=== PATIENT | male | born 1960 | race Caucasian/White ===

== ENCOUNTER 2024-07-01 15:21 | Emergency (ER) | payer MEDICARE, SELFPAY ==
[2024-07-01 15:38] VITALS: BP 127/80; PULSE 85; TEMP 36.8; O2SAT 96; BMI 20.8
--- NOTE | 2024-07-01 15:58 | ED.EXTPRO1 ---
HPI - Extremity Problem General Chief complaint: Extremity Problem, Nontraumatic Stated complaint: Lower Leg Swelling Time Seen by Provider: 07/01/24 15:26 Source: patient Mode of arrival: walk-in History of Present Illness HPI Narrative: 64-year-old male presents to the emergency department for a red area on his left lower leg. He has had it for a few days. He was working in an old house where there were a lot of spiders and he thinks he may have gotten bit. No purulent drainage or fever. Related Data Previous Rx's ?Medication ?Instructions ?Recorded cephalexin 500 mg capsule 500 mg PO QID 10 days #40 caps 07/01/24 sulfamethoxazole 800 1 tab PO BID 10 days #20 tabs 07/01/24 mg-trimethoprim 160 mg tablet (Bactrim DS) Allergies Allergy/AdvReac Type Severity Reaction Status Date / Time No Known Drug Allergies Allergy Verified 07/01/24 15:42 Review of Systems ROS Narrative A ten point review of systems is negative except as noted above. [facility] Medical History (Updated 07/01/24 @ 15:54 by Adrien Dunham MD) Diverticulitis ?K57.92 - Diverticulitis of intestine, part unspecified, without perforation or abscess without bleeding (ICD-10) Exam Narrative Exam Narrative: Nurses note and vital signs reviewed and patient is not hypoxic. General: The patient appears well and in no apparent distress. Patient is resting comfortably on cart. Skin: Warm, dry, no pallor noted. There is no rash noted. Head: Normocephalic, atraumatic Eye: Normal conjunctiva, no drainage Ears, Nose, Mouth, and Throat: oral mucosa is moist. Nares patent. Cardiovascular: Regular Rate and Rhythm Respiratory: Patient is in no distress, no accessory muscle use Back: non-tender GI: Soft and nontender Musculoskeletal: There is an erythematous area approximately 1 inch in diameter on his left lower leg. There is no purulent drainage or fluctuance. No lymphangitis. Neurological: A&O, normal speech Psychiatric: Cooperative Constitutional Vital Signs, click to edit/add: Last Vital Signs Temp 98.3 F 07/01/24 15:38 Pulse 85 07/01/24 15:38 Resp 18 07/01/24 15:38 BP 127/80 07/01/24 15:38 Pulse Ox 96 07/01/24 15:38 O2 Del Method Room Air 07/01/24 15:38 Course Vital Signs Vital signs: Vital Signs Temperature 98.3 F 07/01/24 15:38 Pulse Rate 85 07/01/24 15:38 Respiratory Rate 18 07/01/24 15:38 Blood Pressure 127/80 07/01/24 15:38 Pulse Oximetry 96 07/01/24 15:38 Oxygen Delivery Method Room Air 07/01/24 15:38 Temperature 98.3 F 07/01/24 15:38 Pulse Rate 85 07/01/24 15:38 Respiratory Rate 18 07/01/24 15:38 Blood Pressure 127/80 07/01/24 15:38 Pulse Oximetry 96 07/01/24 15:38 Oxygen Delivery Method Room Air 07/01/24 15:38 MDM - Extremity (Nontraumatic) MDM Narrative Medical decision making narrative: He will be placed on Bactrim and Keflex. He was also recommended warm soaks or compresses. Treatment diagnosis and follow-up were discussed with the patient. Differential Diagnosis Differential diagnosis: Likely other (Cellulitis, abscess) Discharge Plan Discharge Chief Complaint: Extremity Problem, Nontraumatic Clinical Impression: Cellulitis Patient Disposition: Home, Self-Care Time of Disposition Decision: 15:54 Condition: Good Mode of Transportation: Private Vehicle Prescriptions / Home Meds: New sulfamethoxazole-trimethoprim [Bactrim DS] 800-160 mg tablet 1 tab PO BID 10 Days Qty: 20 0RF cephalexin 500 mg capsule 500 mg PO QID 10 Days Qty: 40 0RF Print Language: [place] Instructions: Cellulitis (ED), Warm Compress or Soak (ED) Referrals: RASHAUN DONOHUE [Primary Care Provider] - 1 week
== END 2024-07-01 16:08 | disposition home or self-care (01) ==
PROVIDERS: Emergency Provider Emergency Medicine; PCP Family Medicine
DX: L03.116 Cellulitis of left lower limb (principal)
CPT/HCPCS: 99283

== ENCOUNTER 2024-12-04 10:21 | Emergency (ER) | payer MEDICARE, SELFPAY ==
[2024-12-04] VITALS (10 sets, daily range): BP systolic 98–131; BP diastolic 70–80; PULSE 72–82; TEMP 36.6; O2SAT 99–100; BMI 17.3
--- OUTSIDE RECORDS SUMMARY | 2024-12-04 10:28 | XMS_ITS | CCD ---
Author Organization [facility] CliniSyri Care Team Providers Care Environmental Engineering Manager Name Role Phone HOUSE, DR LAUREN Primary Care Unavailable PAY, DR THOMAS Admitting Unavailable PAY, DR THOMAS Attending Unavailable SO, FRANCISCO ALLEN Consulting Unavailable David, Talia Consulting Unavailable REQUEST, NONE LISTED Admitting Unavaila ble REQUEST, DR MERCADO LISTED Attending Unavaila ble HOUSE, DR LAUREN Primary Care Unavailable REQUEST, NONE LISTED Consulting Unavaila ble ANDERSON, DR LAUREN Primary Care Unavailable JENNIFER PRASAD Admitting Unavailable JENNIFER PRASAD Attending Unavailable LIZBETH, DR BRANDY Rader Consulting Unavailable JENNIFER PRASAD Consulting Unavailable Rashaun Donohue MD Primary Care Provider [phone] Rashaun Donohue MD Unavailable RASHAUN DONOHUE Attending Unavailable PRABHAKAR LOYOLA Attending Unavailable RASHAUN DONOHUE Referring Unavailable RASHAUN DONOHUE Attending Unavailable PRABHAKAR LOYOLA Attending Unavailable Rashaun Donohue MD Unavailable Prabhakar Clemente Unavailable [phone] Prabhakar Clemente Attending Unavailable Prabhakar Clemente Admitting Unavailable Rashaun Donohue Primary Care Unavailable Sandhya Crowe Unavailable Unavailable Rashaun Donohue MD Primary Care Provider [phone], Joyce Unavailable RAZ TUCKER Referring Unavailable RASHAUN DONOHUE Primary Care Unavailable Elio ROLLINS, Rebecca Balderas Unavailable [phone] Sancho Sánchez MD Unavailable RASHAUN DONOHUE Primary Care Unavailable SANCHO SÁNCHEZ Attending Unavailable VENNEPUREDDY, SANCHO Referring Unavailable CHARANJIT, [facility] Primary Care Unavailable VENNEPUREDDY, SANCHO Referring Unavailable CHARANJIT, [facility] Primary Care Unavailable ZARIA MARTIN Attending Unavailable CHARANJIT, [facility] Primary Care Unavailable VENNEPUREDDY, SANCHO Referring Unavailable Sherrie MONSON Referring Unavailable CHARANJIT, [facility] Primary Care Unavailable Sherrie MONSON Attending Unavailable [facility]ANJ[facility]ER[facility] Primary Care Unavailable Sherrie MONSON Attending Unavailable [facility]AN[facility]FORM[facility] Primary Care Unavailable VENNEPUREDDY, SANCHO Referring Unavailable Sherrie MONSON Referring Unavailable CHARANJIT, [facility] Primary Care Unavailable Sherrie MONSON Referring Unavailable CHARANJIT, [facility] Primary Care Unavailable RAZ TUCKER Attending Unavailable PRABHAKAR CLEMENTE Referring Unavaila ble Sherrie MONSON Referring Unavailable Sherrie MONSON Attending Unavailable Sherrie MONSON Referring Unavailable CHARANJIT, [facility] Primary Care Unavailable CHARANJIT, [facility] Primary Care Unavailable Sherrie MONSON Referring Unavailable CHARANJITFORMER[facility] Primary Care Unavailable Sherrie MONSON Referring Unavailable RAZ TUCKER Referring Unavailable Sherrie MONSON Attending Unavailable Sherrie MONSON Referring Unavailable [facility] Primary Care Unavailable RAZ TUCKER Referring Unavailable Sherrie MONSON Referring Unavailable [facility]FORM[facility] Primary Care Unavailable Sherrie MONSON Referring Unavailable CHARANJIT, [facility] Primary Care Unavailable Sherrie MONSON Referring Unavailable CHARANJ[facility]FORM[facility] Primary Care Unavailable Sherrie MONSON Referring Unavailable [facility] Primary Care Unavailable JOYCE VALLES Attending Unavailabl e [facility] Primary Care Unavailable Sherrie MONSON Referring Unavailable Sherrie MONSON Attending Unavailable [facility]AN[facility]FORMER[facility] Primary Care Unavailable VENNEPUREDDY, SANCHO Attending Unavailable VENNEPUREDDY, SANCHO Referring Unavailable [facility] Primary Care Unavailable Sherrie MONSON Attending Unavailable [facility] Primary Care Unavailable ENGELER, G JACK Referring Unavailable CHARANJIT, RASHAUN TRIPPY Primary Care Unavailable [facility]JIT[facility] Primary Care Unavailable ENGELER, G JACK Referring Unavailable CHARANJIT, [facility] Primary Care Unavailable ENGELER, G JACK Referring Unavailable ENGELER, G JACK Referring Unavailable CHARANJIT, RUGEN [facility] Primary Care Unavailable ENGELER, G JACK Referring Unavailable CHARANJIT, [facility] Primary Care Unavailable ENGELER, G JACK Referring Unavailable CHARANJIT, [facility] Primary Care Unavailable VENNEPUREDDORENE, SANCHO Referring Unavailable CHARANJIT, [facility] Primary Care Unavailable ENGELER G JACK Referring Unavailable ENGELER G JACK Referring Unavailable ENGKATHYRSherrie Attending Unavailable RAZ TUCKER Referring Unavailable CHARANJIT, RASHAUN [facility] Primary Care Unavailable Sherrie MONSON Referring Unavailable JOYCE VALLES Attending Unavailabl e CHARANJIT, RASHAUN [facility]LE[facility] Primary Care Unavailable VENNBRITTUREDLAUREL CATHERINERSH Attending Unavailable LAUREL SÁNCHEZRSH Referring Unavailable CHARANJIT, AFSHINEN QASIMY Primary Care Unavailable RAZ TUCKER Attending Unavailable CHARANJIT, [facility]INEN [facility] Primary Care Unavailable Sherrie MONSON Referring Unavailable ALICIA TUCKERTU Referring Unavailable VENNBRITTUREDDORENE, SANCHO Attending Unavailable Sherrie MONSON Referring Unavailable CHARANJIT, RASHAUN TRIPPY Primary Care Unavailable Sherrie MONSON Referring Unavailable CHARANJIT, RASHAUN TRIPPY Primary Care Unavailable Medications Current Medications Medication Drug Class(es) Dates Sig (Normalized) Sig (Original) capecitabine 150 mg oral tablet (20 sources) Nucleoside Metabolic Inhibitor Start: 11-01-2024 End: 12-04-2024 capecitabine (XELODA) 150 mg tablet Take 2 tablets (300 mg) by mouth two times a day with 1 other capecitabine prescription for 1,300 mg total. 120 tablet 11/04/2024 9:07 AM EST 11/01/2024 12/04/2024 Active Start: 11-01-2024 End: 12-04-2024 capecitabine (XELODA) 500 mg tablet Take 2 tablets (1,000 mg) by mouth two times a day with 1 other capecitabine prescription for 1,300 mg total. 120 tablet 11/04/2024 9:07 AM EST 11/01/2024 12/04/2024 Active ondansetron 8 mg oral tablet (12 sources) Serotonin-3 Receptor Antagonist Start: 11-05-2024 take 1 tablet by mouth every eight hours as needed for nausea ondansetron (ZOFRAN) 8 mg tablet Indications: Rectal cancer (HCC) Take 1 tablet by mouth every 8 hours as needed for nausea/vomiting. 90 tablet 2 11/05/2024 Active polyethylene glycol 3350 26541 mg powder for oral solution (2 sources) Osmotic Laxative Start: 08-02-2024 End: 08-05-2024 polyethylene glycol, PEG, 3350 (MiraLax) 17 GM/SCOOP powder Indications: Slow transit constipation Take 17 g by mouth Daily for 3 days 51 g 08/02/2024 08/05/2024 Active Polyethylene Glycols (15 sources) take 1 dose by mouth once daily as needed polyethylene glycol 3350 (MIRALAX ORAL) Take 1 Dose by mouth once daily as needed (contstipation). Active polyethylene gly col 3350 (MIRALAX ORAL) Take by mouth. Active prochlorperazine 10 mg oral tablet (12 sources) Phenothiazine Start: 11-05-2024 take 1 tablet by mouth every six hours as needed prochlorperazine (COMPAZINE) 10 mg tablet Indications: Rectal cancer (HCC) Take 1 tablet by mouth every 6 hours as needed. 100 tablet 2 11/05/2024 Active Completed/Discontinued Medications Medication Drug Class(es) Dates Sig (Normalized) Sig (Original) enteric contrast (will be provided with radiology test) (20 sources) Start: 10-07-2024 End: 11-08-2024 enteric contrast (will be provided with radiology test) Indications: Rectal mass MRI RECTUM WO/W. Administer, As Directed One Time Only, via Oral, Rectal, both Oral and Rectal, Enteric Tube, Stoma or Indwelling Catheter, Enteric Contrast as designated per enteric contrast guidelines 1 Each 10/07/2024 11/08/2024 Discontinued Start: 10-07-2024 End: 11-08-2024 enteric contrast (will be pr ovided with radiology test) Indications: Rectal mass For CT CHESTABD/PEL W IVCON Routine order Administer, As Directed One Time Only, via Oral, Rectal, both Oral and Rectal, Enteric Tube, Stoma or Indwelling Catheter, Enteric Contrast as designated per enteric contrast guidelines 1 Each 10/07/2024 11/08/2024 Discontinued Start: 10-07-[address] (will be provided with radiology test) Indications: Rectal mass MRI RECTUM WO/W. Administer, As Directed One Time Only, via Oral, Rectal, both Oral and Rectal, Enteric Tube, Stoma or Indwelling Catheter, Enteric Contrast as designated per enteric contrast guidelines 1 Each 10/07/2024 Active Start: 10-07-[address] (will be provided with radiology test) Indications: Rectal mass For CT CHESTABD/PEL W IVCON Routine order Administer, As Directed One Time Only, via Oral, Rectal, both Oral and Rectal, Enteric Tube, Stoma or Indwelling Catheter, Enteric Contrast as designated per enteric contrast guidelines 1 Each 10/07/2024 Active iv contrast (will be provide d with radiology test) (20 sources) Start: 10-07-2024 End: 11-08-2024 iv contrast (will be provide d with radiology test) Indications: Rectal mass MRI Rectum Inject, intravenously, once for 1 dose. No IV access, insert saline lock prior to the beginning of sedation, infusion, injection of imaging exam. Discontinue saline lock post exam. If Pt has a central line or IVAD, may access for administration according to line specific nursing protocol. Once exam is complete flush line and de-access according to line specific nursing protocol in the MR contrast administration guidelines link. 1 Each 10/07/2024 11/08/2024 Discontinued Start: 10-07-2024 End: 11-08-2024 iv contrast (will be provide d with radiology test) Indications: Rectal mass CT Chest ABD/PEL-Inject, intravenously, once for 1 dose.No IV access, insert saline lock prior to the beginning of sedation, infusion, injection of imaging exam. Discontinue saline lock post exam. If Pt. has a central line or IVAD, may access for administration according to line specific nursing protocol. Once exam is complete flush line and de-access according to line specific nursing protocol in the CT contrast administration guidelines link. 1 Each 10/07/2024 11/08/2024 Discontinued Start: 10-07-2024 iv contrast (w ill be provided with radiology test) Indications: Rectal mass MRI Rectum Inject, intravenously, once for 1 dose. No IV access, insert saline lock prior to the beginning of sedation, infusion, injection of imaging exam. Discontinue saline lock post exam. If Pt has a central line or IVAD, may access for administration according to line specific nursing protocol. Once exam is complete flush line and de-access according to line specific nursing protocol in the MR contrast administration guidelines link. 1 Each 10/07/2024 Active Start: 10-07-2024 iv contrast (w ill be provided with radiology test) Indications: Rectal mass CT Chest ABD/PEL-Inject, intravenously, once for 1 dose.No IV access, insert saline lock prior to the beginning of sedation, infusion, injection of imaging exam. Discontinue saline lock post exam. If Pt. has a central line or IVAD, may access for administration according to line specific nursing protocol. Once exam is complete flush line and de-access according to line specific nursing protocol in the CT contrast administration guidelines link. 1 Each 10/07/2024 Active Problems Active Problems Problem Classification Problem Date Documented Da te Episodic/Chronic Anal and rectal conditions (12 sources) Disorder of large intestine; Translations: [Stenosis of anus and rectum] Onset: 10-01-2024 10-01-2024 Episodic Cancer of colon (6 sources) Malignant tumor of colon; Translations: [Malignant neoplasm of colon, unspecified] 10-01-2024 Chronic Cancer of rectum and anus (20 sources) Malignant tumor of rectum; Translations: [Malignant neoplasm of rectum] Onset: 10-01-2024 10-01-2024 Chronic Diabetes mellitus with complications (16 sources) Neuropathy due to type 2 diabetes mellitus; Translations: [Type 2 diabetes mellitus with diabetic neuropathy, unspecified] Onset: 08-04-2023 08-02-2024 Chronic Essential hypertension (16 sources) Benign essential hypertension; Translations: [Essential (primary) hypertension] Onset: 09-01-2023 08-02-2024 Chronic Genitourinary symptoms and ill-defined conditions (2 sources) Nocturia; Translations: [Nocturia] 09-14-2024 Episodic Immunity disorders (2 sources) Secondary immune deficiency disorder; Translations: [Immunodeficiency due to conditions classified elsewhere (CMS/[facility])] 09-14-2024 Chronic Nonspecific chest pain (2 sources) Chest pain; Translations: [Chest Pain] Onset: 09-24-2022 Episodic Nutritional deficiencies (10 sources) Deficiency of macronutrients; Translations: [Unspecified protein-calorie malnutrition] Onset: 09-14-2024 09-14-2024 Chronic Other connective tissue disease (1 source) Olecranon bursitis, right elbow; Translations: [OLECRANON BURSITIS RIGHT ELBOW] Onset: 07-09-2021 Episodic Other gastrointestinal disorders (11 sources) Altered bowel function; Translations: [Change in bowel habit] Onset: 09-07-2024 09-07-2024 Episodic Other nervous system disorders (12 sources) Disorder of muscle; Translations: [Myopathy, unspecified] Onset: 11-07-2023 11-07-2023 Chronic Other screening for suspected conditions (not mental disorders or infectious disease) (2 sources) Patient encounter status; Translations: [Encounter for screening for lipoid disorders] 09-14-2024 Episodic Other skin disorders (3 sources) Localized swelling, mass and lump, right upper limb; Translations: [LOC SWELL MASS LUMP RT UPPER LIMB] Onset: 07-06-2021 Episodic Spondylosis; intervertebral disc disorders; other back problems (1 source) Sacroiliitis, not elsewhere classified; Translations: [SACROILIITIS NEC] Onset: 09-12-2021 Chronic Spondylosis; intervertebral disc disorders; other back problems (3 sources) Sacrococcygeal disorders, not elsewhere classified; Translations: [SACROCOCCYGEAL DISORDERS NEC] Onset: 09-11-2021 Episodic Substance-related disorders (20 sources) Nicotine dependence, cigarettes, uncomplicated; Translations: [Smoker] Onset: 09-12-2021 08-05-2023 Chronic Past or Other Problems Problem Classification Problem Date Documented Da te Episodic/Chronic Diabetes mellitus without complication (14 sources) Hyperglycemia; Translations: [Hyperglycemia, unspecified] Onset: 08-05-2023 08-05-2023 Episodic Gastrointestinal hemorrhage (18 sources) Hematochezia; Translations: [Melena] Onset: 08-02-2024 08-02-2024 Episodic Other connective tissue disease (14 sources) Muscle pain; Translations: [Myalgia, unspecified site] Onset: 11-07-2023 11-07-2023 Episodic Other gastrointestinal disorders (17 sources) Slow transit constipation; Translations: [Slow transit constipation] Onset: 08-02-2024 08-02-2024 Episodic Unclassified (2 sources) Patient encounter status 09-14-2024 Urinary tract infections (12 sources) Acute cystitis; Translations: [Acute cystitis without hematuria] Onset: 08-02-2024 08-02-2024 Episodic Results Test Name Value Interpretation Reference Range Facility OVon 11-29-2024 CNOV Office Visit (RADTSA ) BENTLEY GONZALEZ ([id number]) 1960 M Date Time Provider Department 11/29/24 9:45 AM Sherrie MONSON During your visit today, we recorded the following information about you: Temperature Pulse Respiration Blood pressure 97.5 degrees 75/minute 16/minute 126/79 Weight 52 kg Sherrie Monson MD 11/29/2024 10:10 AM Signed Radiation Oncology - On Treatment Review (OTR) Note PATIENT NAME: Bentley Gonzalez PATIENT DIAGNOSIS: Locally advanced adenocarcinoma the rectum. COURSE: definitive, pre-operative, and concurrent chemotherapy AREA TREATED: Pelvis/Rectum CURRENT DOSE: 2880 cGy in 16 fx PLANNED DOSE: 5040 cGy in 28 fx SUBJECTIVE: Doing well. States his bowel function is best in the morning overall improved in the afternoon having multiple bowel movements and urgency. No pain or bleeding. No rash or other issues. EXAM: 11/29/24 0959 BP: 126/79 Pulse: 75 Resp: 16 Temp: 36.4 ?C (97.5 ?F) SpO2: 100% Weight: 52 kg (114 lb 10.2 oz) KPS: 100 General Appearance: Alert and oriented. No acute distress. Radiation dermatitis: No IMAGING/LAB RESULTS: Hemoglobin (g/dL) Date Value 11/22/2024 14.4 Hematocrit (%) Date Value 11/22/2024 43.0 WBC (k/uL) Date Value 11/22/2024 5.08 Platelet Count (k/uL) Date Value 11/22/2024 157 Treatment chart checked: Yes Patient treatment site reviewed and verified:Yes Port films reviewed and current:Yes Medications started: None ASSESSMENT/PLAN: Clinically stable. Continue diet modification and Imodium as needed. Bowel frequency. Patient meeting with dietitian regarding strategies to prevent further weight loss. Toxicity within expected parameters. Continue radiation treatment as planned. Sherrie Monson MD Allergies As of Date: 11/29/2024 (No Known Allergies) Date Reviewed: 11/29/2024 Reviewed by: Barbie Causey RN - Fully Assessed Primary Visit Diagnosis:Rectal cancer (HCC) [C20] Prescriptions as of 11/29/2024 - prochlorperazine (COMPAZINE) 10 mg tablet Take 1 tablet by mouth every 6 hours as needed. - ondansetron (ZOFRAN) 8 mg tablet Take 1 tablet by mouth every 8 hours as needed for nausea/vomiting. - polyethylene glycol 3350 (MIRALAX ORAL) Take 1 Dose by mouth once daily as needed (contstipation). - capecitabine (XELODA) 150 mg tablet Take 2 tablets (300 mg) by mouth two times a day with 1 other capecitabine prescription for 1,300 mg total. - capecitabine (XELODA) 500 mg tablet Take 2 tablets (1,000 mg) by mouth two times a day with 1 other capecitabine prescription for 1,300 mg total. Problem List As Of Date: 11/29/2024 (None) Encounter Status:Closed by Sherrie MONSON on 11/29/24 [facility] ([id number]) 1960 M Date Time Provider Department 11/25/24 REBECCA BALLARD During your visit today, we recorded the following information about you: Rebecca Ballard RN 11/25/2024 2:49 PM Signed TOXICITY CHECK SYMPTOM ASSESSMENT The patient is on Xeloda with radiation Headache: No Dizziness: No Mouth or throat pain: No Appetite: no changes in appetite, appetite good Taste changes: No Nausea: No Weight gain/loss: No Episodes of palpitations/chest discomfort/pressure/lianne n No Shortness of breath: No Diarrhea: no Constipation: no pt states he takes 1/2 scoop of miralax daily to keep his bowels regular Pain: No=0 (pain 0 on a scale of 0-10). Fever: No Chills: No Skin changes: No Denies HFS Itching: No Musculoskeletal/joint changes/issues No Bleeding issues: No Activity Level (0-100%): tires more easily but doing his everyday things like normal Do you need to take naps? No Does the patient need interventions or same day appointment:No Reinforced CURRENT treatment education based on current and anticipated symptoms. Discussed port/line care and patient verbalizes understanding: Not Applicable Patient instructed to contact office or after hours Hematology/Oncology fellow for: temperature >= 100.4; questions or concerns. Patient verbalized understanding of when to seek medical attention and after hours number protocol. Rebecca Ballard RN Allergies As of Date: 11/25/2024 (No Known Allergies) Date Reviewed: 11/22/2024 Reviewed by: Karlie Prather MA - Fully Assessed Reason for Visit: Care Coordination [3491] Cmt: Toxicity check Prescriptions as of 11/25/2024 - prochlorperazine (COMPAZINE) 10 mg tablet Take 1 tablet by mouth every 6 hours as needed. - ondansetron (ZOFRAN) 8 mg tablet Take 1 tablet by mouth every 8 hours as needed for nausea/vomiting. - polyethylene glycol 3350 (MIRALAX ORAL) Take 1 Dose by mouth once daily as needed (contstipation). - capecitabine (XELODA) 150 mg tablet Take 2 tablets (300 mg) by mouth two times a day with 1 other capecitabine prescription for 1,300 mg total. - capecitabine (XELODA) 500 mg tablet Take 2 tablets (1,000 mg) by mouth two times a day with 1 other capecitabine prescription for 1,300 mg total. Problem List As Of Date: 11/25/2024 (None) Encounter Status:Closed by REBECCA BALLARD on 11/25/[address] [facility] CBC W Auto Differential pane l (Bld)on 11-22-2024 Basophils (Bld) [#/Vol] 10*3/uL Normal <0.[address] [facility] Comment on above: Order Comment: Speci men Type: BLOOD SPECIMENOrdering Facility: [facility] Address: [address] [place] [address] Performed By: #### 5 7021-8 ####[facility] LABCLIA [id number] [place] [address] Basophils/100 WBC (Bld) 0.2 % Normal [facility] Comment on above: Order Comment: Speci men Type: BLOOD SPECIMENOrdering Facility: [facility] Address: [address] [place] [address] Performed By: #### 5 7021-8 ####[facility] LABCLIA [id number] [place] [address] Differential cell count method Nom (Bld) Auto Normal [facility] Comment on above: Order Comment: Speci men Type: BLOOD SPECIMENOrdering Facility: [facility] Address: [address] [place] [address] Performed By: #### 5 7021-8 ####[facility] LABCLIA [id number] [place] [address] Eosinophils (Bld) [#/Vol] 0.21 10*3/uL Normal <0.[address] [facility] Comment on above: Order Comment: Speci men Type: BLOOD SPECIMENOrdering Facility: [facility] Address: [address] [place] [address] Performed By: #### 5 7021-8 ####[facility] LABCLIA [id number] [place] [address] Eosinophils/100 WBC (Bld) 4.1 % Normal [facility] Comment on above: Order Comment: Speci men Type: BLOOD SPECIMENOrdering Facility: [facility] Address: [address] [place] [address] Performed By: #### 5 7021-8 ####[facility] LABCLIA [id number] [place] [address] Erythrocyte distribution width (RBC) [Ratio] 13.3 % Normal 11.5-15.[address] [facility] Comment on above: Order Comment: Speci men Type: BLOOD SPECIMENOrdering Facility: [facility] Address: [address] [place] [address] Performed By: #### 5 7021-8 ####[facility] LABCLIA [id number] [place] [address] Hematocrit (Bld) [Volume fraction] 43.0 % Normal 39.0-51.[address] [facility] Comment on above: Order Comment: Speci men Type: BLOOD SPECIMENOrdering Facility: [facility] Address: [address] [place] [address] Performed By: #### 5 7021-8 ####[facility] LABCLIA [id number] [place] [address] Hemoglobin (Bld) [Mass/Vol] 14.4 g/dL Normal 13.0-17.[address] [facility] Comment on above: Order Comment: Speci men Type: BLOOD SPECIMENOrdering Facility: [facility] Address: [address] [place] [address] Performed By: #### 5 7021-8 ####[facility] LABIA [id number] [place] [address] Immature granulocytes (Bld) [#/Vol] 0.03 10*3/uL Normal <0.[address] [facility] Comment on above: Order Comment: Speci men Type: BLOOD SPECIMENOrdering Facility: [facility] Address: [address] [place] [address] Performed By: #### 5 7021-8 ####[facility] LABCLIA [id number] [place] [address] Immature granulocytes/100 WBC (Bld) 0.6 % Normal [facility] Comment on above: Order Comment: Speci men Type: BLOOD SPECIMENOrdering Facility: [facility] Address: [address] [place] [address] Performed By: #### 5 7021-8 ####[facility] LABCLIA [id number] [place] [address] Lymphocytes (Bld) [#/Vol] 0.74 10*3/uL Low 1.00-4.[address] [facility] Comment on above: Order Comment: Speci men Type: BLOOD SPECIMENOrdering Facility: [facility] Address: [address] [place] [address] Performed By: #### 5 7021-8 ####[facility] LABCLIA [id number] [place] [address] Lymphocytes/100 WBC (Bld) 14.6 % Normal [facility] Comment on above: Order Comment: Speci men Type: BLOOD SPECIMENOrdering Facility: [facility] Address: [address] [place] [address] Performed By: #### 5 7021-8 ####[facility] LABCLIA [id number] [place] [address] MCH (RBC) [Entitic mass] 31.6 pg Normal 26.0-34.[address] [facility] Comment on above: Order Comment: Speci men Type: BLOOD SPECIMENOrdering Facility: [facility] Address: [address] [place], [place] [address] Performed By: #### 5 7021-8 ####[facility] LABCLIA [id number] [place] [address] MCHC (RBC) [Mass/Vol] 33.5 g/dL Normal 30.5-36.0 [facility] Comment on above: Order Comment: Speci men Type: BLOOD SPECIMENOrdering Facility: [facility] Address: [address] [place] [address] Performed By: #### 5 7021-8 ####[facility] LABCLIA [id number] [place] [address] MCV (RBC) [Entitic vol] 94.5 fL Normal 80.0-100.[address] [facility] Comment on above: Order Comment: Speci men Type: BLOOD SPECIMENOrdering Facility: [facility] Address: [address] [place] [address] Performed By: #### 5 7021-8 ####[facility] LABCLIA [id number] [place] [address] Monocytes (Bld) [#/Vol] 0.51 10*3/uL Normal <0.[address] [facility] Comment on above: Order Comment: Speci men Type: BLOOD SPECIMENOrdering Facility: [facility] Address: [address] [place] [address] Performed By: #### 5 7021-8 ####[facility] LABCLIA [id number] [place] [address] Monocytes/100 WBC (Bld) 10.0 % Normal [facility] Comment on above: Order Comment: Speci men Type: BLOOD SPECIMENOrdering Facility: [facility] Address: [address] [place] [address] Performed By: #### 5 7021-8 ####[facility] LABCLIA [id number] [place] [address] Neutrophils (Bld) [#/Vol] 3.58 10*3/uL Normal 1.45-7.[address] [facility] Comment on above: Order Comment: Speci men Type: BLOOD SPECIMENOrdering Facility: [facility] Address: [address] [place] [address] Performed By: #### 5 7021-8 ####[facility] LABCLIA [id number] [place] [address] Neutrophils/100 WBC (Bld) 70.5 % Normal [facility] Comment on above: Order Comment: Speci men Type: BLOOD SPECIMENOrdering Facility: [facility] Address: [address] [place] [address] Performed By: #### 5 7021-8 ####[facility] LABCLIA [id number] [place] [address] Nucleated RBC (Bld) [#/Vol] 10*3/uL Normal <0.[address] [facility] Comment on above: Order Comment: Speci men Type: BLOOD SPECIMENOrdering Facility: [facility] Address: [address] [place] [address] Performed By: #### 5 7021-8 ####[facility] LABCLIA [id number] [place] [address] Nucleated RBC/100 WBC (Bld) [Ratio] 0.0 /100 WBC Normal [facility] Comment on above: Order Comment: Speci men Type: BLOOD SPECIMENOrdering Facility: [facility] Address: [address] [place] [address] Performed By: #### 5 7021-8 ####[facility] LABCLIA [id number] [place] [address] Platelet mean volume (Bld) [Entitic vol] 8.6 fL Low 9.0-12.[address] [facility] Comment on above: Order Comment: Speci men Type: BLOOD SPECIMENOrdering Facility: [facility] Address: [address] [place] [address] Performed By: #### 5 7021-8 ####[facility] LABCLIA [id number] [place] [address] Platelets (Bld) [#/Vol] 157 10*3/uL Normal 150-[address] [facility] Comment on above: Order Comment: Speci men Type: BLOOD SPECIMENOrdering Facility: [facility] Address: [address] [place] [address] Performed By: #### 5 7021-8 ####[facility] LABCLIA [id number] [place] [address] RBC (Bld) [#/Vol] 4.55 10*6/uL Normal 4.20-6.00 [facility] Comment on above: Order Comment: Speci men Type: BLOOD SPECIMENOrdering Facility: [facility] Address: [address] [place] [address] Performed By: #### 5 7021-8 ####[facility] LABCLIA [id number] [place] [address] WBC (Bld) [#/Vol] 5.08 10*3/uL Normal 3.70-11.00 [facility] Comment on above: Order Comment: Speci men Type: BLOOD SPECIMENOrdering Facility: [facility] Address: [address] [place] [address] Performed By: #### 5 7021-8 ####[facility] LABCLIA [id number] [place] [address] [facility] CBC W AUTO DIFF BLDon Basophils/100 WBC (Bld) 0.2 % [facility] BASOPHILS # BLD AUTO <0.03 [facility] DIFFERENTIAL METHOD BLD Auto [facility] EOSINOPHIL # BLD AUTO 0.21 [facility] LYMPHOCYTES # BLD AUTO 0.74 Low [facility] MONOCYTES # BLD AUTO 0.51 [facility] NEUTROPHILS # BLD AUTO 3.58 [facility] NRBC # BLD AUTO <0.01 [facility] NRBC/100 WBC BLD-RTO 0 /100 WBC [facility] PLATELET # BLD AUTO 157 [facility] PMV BLD AUTO 8.6 fL Low 9.0 - 12.7 fL [facility] WBC # BLD AUTO 5.08 [facility] Eosinophils/100 WBC (Bld) 4.1 % [facility] Erythrocyte distribution width (RBC) [Ratio] 13.3 % 11.5 - 15.0 % [facility] Hematocrit (Bld) [Volume fraction] 43 % 39.0 - 51.0 % [facility] Hemoglobin (Bld) [Mass/Vol] 14.4 g/dL 13.0 - 17.0 g/dL [facility] IMM GRANULOCYTES # BLD AUTO 0.03 NINF [facility] IMM GRANULOCYTES/LEUK NFR BLD AUTO 0.6 % [facility] Interpretation and review of laboratory results Abnormal [facility] Lymphocytes/100 WBC (Bld) 14.6 % [facility] MCH (RBC) [Entitic mass] 31.6 pg 26.0 - 34.0 pg [facility] MCHC (RBC) [Mass/Vol] 33.5 g/dL 30.5 - 36.0 g/dL [facility] MCV (RBC) [Entitic vol] 94.5 fL 80.0 - 100.0 fL [facility] Monocytes/100 WBC (Bld) 10 % [facility] Neutrophils/100 WBC (Bld) 70.5 % [facility] RBC (Bld) [#/Vol] 4.55 10*6/uL 4.20 - 6.0 0 m/uL [facility] Specimen Type: BLOOD SPECIMEN [facility] Address: [address] [place] [address] Original Ordering Provider: SANCHO SÁNCHEZ [facility] CNOVon 11-22-2024 CNOV Office Visit (RADTSA ) BENTLEY GONZALEZ ([id number]) 1960 M Date Time Provider Department 11/22/24 9:15 AM Sherrie MONSON RADTSA During your visit today, we recorded the following information about you: Pulse Respiration Blood pressure Weight 85/minute 18/minute 136/82 53.6 kg Sherrie Monson MD 11/22/2024 9:33 AM Signed Radiation Oncology - On Treatment Review (OTR) Note PATIENT NAME: Bentley Gonzalez PATIENT DIAGNOSIS: Locally advanced adenocarcinoma the rectum. COURSE: definitive, pre-operative, and concurrent chemotherapy AREA TREATED: Pelvis/Rectum CURRENT DOSE: 1980 cGy in 11 fx PLANNED DOSE: 5040 cGy in 28 fx SUBJECTIVE: Doing well. Feels bowel function has improved easier to pass. No bladder pain. EXAM: 11/22/24 0912 BP: 136/82 Pulse: 85 Resp: 18 SpO2: 99% Weight: 53.6 kg (118 lb 2.7 oz) KPS: 100 General Appearance: Alert and oriented. No acute distress. Radiation dermatitis: No IMAGING/LAB RESULTS: Hemoglobin (g/dL) Date Value 11/08/2024 15.3 Hematocrit (%) Date Value 11/08/2024 46.0 WBC (k/uL) Date Value 11/08/2024 7.39 Platelet Count (k/uL) Date Value 11/08/2024 289 Treatment chart checked: Yes Patient treatment site reviewed and verified:Yes Port films reviewed and current:Yes Medications started: None ASSESSMENT/PLAN: Clinically stable. Toxicity within expected parameters. Continue radiation treatment as planned. Sherrie Monson MD Referring Provider: Sherrie MONSON [[id number]] Allergies As of Date: 11/22/2024 (No Known Allergies) Date Reviewed: 11/22/2024 Reviewed by: Karlie Prather MA - Fully Assessed Primary Visit Diagnosis:Rectal cancer (HCC) [C20] Prescriptions as of 11/22/2024 - prochlorperazine (COMPAZINE) 10 mg tablet Take 1 tablet by mouth every 6 hours as needed. - ondansetron (ZOFRAN) 8 mg tablet Take 1 tablet by mouth every 8 hours as needed for nausea/vomiting. - polyethylene glycol 3350 (MIRALAX ORAL) Take 1 Dose by mouth once daily as needed (contstipation). - capecitabine (XELODA) 150 mg tablet Take 2 tablets (300 mg) by mouth two times a day with 1 other capecitabine prescription for 1,300 mg total. - capecitabine (XELODA) 500 mg tablet Take 2 tablets (1,000 mg) by mouth two times a day with 1 other capecitabine prescription for 1,300 mg total. Problem List As Of Date: 11/22/2024 (None) Encounter Status:Closed by Sherrie MONSON on 11/22/24 [facility] CNOVSPon 11-22-2024 CNOVSP Visit (SP) Office (HEMASA) BENTLEY GONZALEZ ([id number]) 1960 M Date Time Provider Department 11/22/24 9:30 AM SANCHO SÁNCHEZ During your visit today, we recorded the following information about you: Pulse Respiration Blood pressure Weight 85/minute 18/minute 136/82 53.5 kg Height 1.715 m Sanhco Sánchez MD 11/22/2024 10:05 AM Signed PATIENT NAME: Bentley Gonzalez CLINIC NO.: [id number] ATTENDING PHYSICIAN: Sancho Sánchez MD DATE OF SERVICE: 11/22/[address] Raz Hurley [id number] [facility] [id number] thank you for referring Bentley Gonzalez for an opinion regarding Rectal cancer. Some of the elements of this note have been copied from my previous progress note dated 11/08/24 . All the information has been reviewed carefully. CHIEF COMPLAINT: Rectal cancer HPI: Bentley Gonzalez is a 64 year old year old male with no significant PMH referred to us for rectal mass. He reports months of hematochezia as well as change in bowel habits prompting him to present for endoscopic evaluation. On colonoscopy, he was found to have a rectal mass on LUIS ANTONIO and on endoscopic evaluation, pediatric scope could not be advanced past the mass. Biopsy was taken and result showed adenoca. He presents for further evaluation and management. Patient reports that his difficulty defecating included small pellet-like stools, ~10 times a day, which has improved since he started taking MiraLAX daily. He now has large volume stool but still go multiple times a day. His hematochezia is also resolved. Seen by surgeon . Scheduled for scans on 10/27/23. No family history of colon ca. Works in construction and [employer]. Smokes 1 pk/day for many yrs. 11/01/24: - CT chest (10/27/24)- Few scattered pulmonary nodules measuring up to 4 mm. Continued follow-up is recommended. - CT A/P (10/27/24)- 5 cm rectal mass with metastatic mesorectal and superior rectal lymphadenopathy. Indeterminate subcentimeter low-attenuation lesions in the liver. Attention on follow-up is recommended. 1.7 cm above water attenuation lesion in the left kidney. Consider ultrasound for further assessment versus attention on follow-up - MRI rectum (10/29/24)- 4.7 cm mid rectal mass extending into the mesorectal fat with multiple suspicious mesorectal lymph nodes. Stage: T3d N+ MRF: Involved (tumor margin within 1 mm of MRF) Sphincter involvement: No. Suspicious extra mesorectal lymph nodes: No. EMVI: Yes - Able to pass bowel movements with miralax - No major complaints. 11/08/24: - Started radiation today - Doing well - No major complaints - Able to pass bowel movements 11/22/24: - Doing well - C/o intermittent diarrhea - Week 3 radiation today - Scheduled for port on december 08. - Last radiation is on December 15. - Smokes 1pk for 3 days. Current Outpatient Medications Medication Sig prochlorperazine (COMPAZINE) 10 mg tablet Take 1 tablet by mouth every 6 hours as needed. ondansetron (ZOFRAN) 8 mg tablet Take 1 tablet by mouth every 8 hours as needed for nausea/vomiting. polyethylene glycol 3350 (MIRALAX ORAL) Take 1 Dose by mouth once daily as needed (contstipation). capecitabine (XELODA) 150 mg tablet Take 2 tablets (300 mg) by mouth two times a day with 1 other capecitabine prescription for 1,300 mg total. capecitabine (XELODA) 500 mg tablet Take 2 tablets (1,000 mg) by mouth two times a day with 1 other capecitabine prescription for 1,300 mg total. No current facility-administered medications for this visit. ALLERGIES No Known Allergies No past medical history on file. PAST SURGICAL HISTORY Procedure Laterality Date TONSILLECTOMY AND ADENOIDECTOMY FAMILY HISTORY Problem Relation Age of Onset Breast Cancer Mother Lung Cancer Father Cancer Sister Social History Tobacco Use Smoking status: Every Day Current packs/day: 1.00 Average packs/day: 1 pack/day for 54.1 years (54.1 ttl pk-yrs) Types: Cigarettes Start date: 1970 Smokeless tobacco: Never Vaping Use Vaping status: Never Used Substance Use Topics Alcohol use: Yes Comment: very seldom Drug use: Not Currently REVIEW OF SYSTEMS GENERAL: No weight loss, malaise or fevers. No night sweats. HEENT: Negative for headaches, No changes in hearing or vision, no nose bleeds or other nasal problems. RESPIRATORY: Negative for cough, wheezing and shortness of breath CARDIOVASCULAR: Negative for chest pain, leg swelling and palpitations GI: Negative for abdominal discomfort, blood in stools or black stools and change in bowel habits : Negative for dysuria, frequency and incontinence MUSCULOSKELETAL: Negative for joint pain or swelling, back pain, and muscle pain. SKIN: Negative for lesions, rash, and itching. HEMATOLOGY/LYMPHOLOGY Negative for prolonged bleeding, bruising easily, and swollen nodes. (more content not included)... Normal [facility] Comprehensive metabolic 2000 panelon 11-22-2024 Albumin [Mass/Vol] 4.5 g/dL Normal 3.9-4.9 [facility] Comment on above: Order Comment: Speci men Type: BLOOD SPECIMENOrdering Facility: [facility] Address: [address] [place] [address] Performed By: #### 2 4323-8 ####[facility] LABCLIA [id number] [place] [address] ALP [Catalytic activity/Vol] 78 U/L Normal 38-[address] [facility] Comment on above: Order Comment: Speci men Type: BLOOD SPECIMENOrdering Facility: [facility] Address: [address] [place] [address] Performed By: #### 2 4323-8 ####[facility] LABCLIA [id number] [place] [address] ALT [Catalytic activity/Vol] 12 U/L Normal 10-[address] [facility] Comment on above: Order Comment: Speci men Type: BLOOD SPECIMENOrdering Facility: [facility] Address: [address] [place] [address] Performed By: #### 2 4323-8 ####[facility] LABCLIA [id number] [place] [address] Anion gap [Moles/Vol] 10 mmol/L Normal 8-15 [facility] Comment on above: Order Comment: Speci men Type: BLOOD SPECIMENOrdering Facility: [facility] Address: [address] [place] [address] Performed By: #### 2 4323-8 ####[facility] LABCLIA [id number] [place] [address] AST [Catalytic activity/Vol] 14 U/L Normal 14-[address] [facility] Comment on above: Order Comment: Speci men Type: BLOOD SPECIMENOrdering Facility: [facility] Address: [address] [place] [address] Performed By: #### 2 4323-8 ####[facility] LABCLIA [id number] [place] [address] Bilirubin [Mass/Vol] 0.4 mg/dL Normal 0.2-1.3 [facility] Comment on above: Order Comment: Speci men Type: BLOOD SPECIMENOrdering Facility: [facility] Address: [address] [place] [address] Performed By: #### 2 4323-8 ####[facility] LABCLIA [id number] [place] [address] Calcium [Mass/Vol] 9.5 mg/dL Normal 8.5-10.2 [facility] Comment on above: Order Comment: Speci men Type: BLOOD SPECIMENOrdering Facility: [facility] Address: [address] [place] [address] Performed By: #### 2 4323-8 ####[facility] LABCLIA [id number] [place] [address] Chloride [Moles/Vol] 102 mmol/L Normal 98-107 [facility] Comment on above: Order Comment: Speci men Type: BLOOD SPECIMENOrdering Facility: [facility] Address: [address] [place], [place] [address] Performed By: #### 2 4323-8 ####[facility] LABCLIA [id number] [place] [address] CO2 [Moles/Vol] 26 mmol/L Normal 22-[address] [facility] Comment on above: Order Comment: Speci men Type: BLOOD SPECIMENOrdering Facility: [facility] Address: [address] [place] [address] Performed By: #### 2 4323-8 ####[facility] LABCLIA [id number] [place] [address] Creatinine [Mass/Vol] 0.85 mg/dL Normal 0.73-1.22 [facility] Comment on above: Order Comment: Speci men Type: BLOOD SPECIMENOrdering Facility: [facility] Address: [address] [place] [address] Performed By: #### 2 4323-8 ####[facility] LABCLIA [id number] [place] [address] Creatinine and Glomerular filtration rate.predicted panel (S/P/Bld) 96 mL/min/1.73m??? Normal >=[address] [facility] Comment on above: Order Comment: Speci men Type: BLOOD SPECIMENOrdering Facility: [facility] Address: [address] [place] [address] Result Comment: Tanya mated Glomerular Filtration Rate (eGFR) is calculated using the 2020 CKD-EPI creatinine equation. This equation utilizes serum creatinine, sex, and age as parameters. The creatinine assay has traceable calibration to isotope dilution-mass spectrometry. Refer to KDIGO guidelines for clinical interpretation. In patients with unstable renal function, e.g. those with acute kidney injury, the eGFR may not accurately reflect actual GFR. Performed By: #### 2 4323-8 ####[facility] LABCLIA [id number] [place] [address] Glucose [Mass/Vol] 109 mg/dL High 74-99 [facility] Comment on above: Order Comment: Speci men Type: BLOOD SPECIMENOrdering Facility: [facility] Address: [address] [place] [address] Result Comment: The [place] Diabetes Association (ADA) provides guidance for cutoff values for fasting glucose and random glucose. The ADA defines fasting as no caloric intake for at least 8 hours. Fasting plasma glucose results between 100 to 125 mg/dL indicate increased risk for diabetes (prediabetes). Fasting plasma glucose results greater than or equal to 126 mg/dL meet the criteria for diagnosis of diabetes. In the absence of unequivocal hyperglycemia, results should be confirmed by repeat testing. In a patient with classic symptoms of hyperglycemia or hyperglycemic crisis, random plasma glucose results greater than or equal to 200 mg/dL meet the criteria for diagnosis of diabetes. Reference: Standards of Medical Care in Diabetes 2016, [place] [employer] Association. Diabetes Care. 2016.39(Suppl 1). Performed By: #### 2 4323-8 ####[facility] LABCLIA [id number] [place] [address] Potassium [Moles/Vol] 4.4 mmol/L Normal 3.7-5.1 [facility] Comment on above: Order Comment: Speci [facility] Type: BLOOD SPECIMENOrdering Facility: [facility] Address: [address] [place] [id number] Performed By: #### 2 4323-8 ####[facility] LABCLIA [id number] [place] [address] Protein [Mass/Vol] 6.5 g/dL Normal 6.3-8.0 [facility] Comment on above: Order Comment: Speci men Type: BLOOD SPECIMENOrdering Facility: [facility] Address: [address] [place] [address] Performed By: #### 2 4323-8 ####[facility] LABCLIA [id number] [place] [address] Sodium [Moles/Vol] 138 mmol/L Normal 136-144 [facility] Comment on above: Order Comment: Speci men Type: BLOOD SPECIMENOrdering Facility: [facility] Address: [address] [place] [address] Performed By: #### 2 4323-8 ####[facility] LABCLIA [id number] [place] [address] Urea nitrogen [Mass/Vol] 11 mg/dL Normal 9-[address] [facility] Comment on above: Order Comment: Speci men Type: BLOOD SPECIMENOrdering Facility: [facility] Address: [facility] [place] [address] Performed By: #### 2 4323-8 ####[facility] LABCLIA [id number] [place] [address] CNOVon 11-15-2024 CNOV Office Visit (RADTSA ) BENTLEY GONZALEZ ([id number]) 1960 M Date Time Provider Department 11/15/24 9:00 AM Sherrie MONSON During your visit today, we recorded the following information about you: Temperature Pulse Respiration Blood pressure 96.7 degrees 85/minute 18/minute 128/74 Weight 53.5 kg Sherrie Monson MD 11/15/2024 9:13 AM Signed Radiation Oncology - On Treatment Review (OTR) Note PATIENT NAME: Bentley Gonzalez PATIENT DIAGNOSIS: Locally advanced adenocarcinoma the rectum. COURSE: definitive, pre-operative, and concurrent chemotherapy AREA TREATED: Pelvis/Rectum CURRENT DOSE: 1080 cGy in 6 fx PLANNED DOSE: 5040 cGy in 28 fx SUBJECTIVE: Doing well. Feels rectal function has improved. No bleeding. Mild constipation. EXAM: 11/15/24 0904 BP: 128/74 Pulse: 85 Resp: 18 Temp: (!) 35.9 ?C (96.7 ?F) SpO2: 100% Weight: 53.5 kg (117 lb 15.1 oz) KPS: 100 General Appearance: Alert and oriented. No acute distress. Radiation dermatitis: No IMAGING/LAB RESULTS: None Treatment chart checked: Yes Patient treatment site reviewed and verified:Yes Port films reviewed and current:Yes Medications started: None ASSESSMENT/PLAN: Clinically stable. Toxicity within expected parameters. Continue radiation treatment as planned. Sherrie Monson MD Allergies As of Date: 11/15/2024 (No Known Allergies) Date Reviewed: 11/15/2024 Reviewed by: Alison Louise RN - Fully Assessed Reason for Visit: Radiotherapy On-treatment Visit [1722] Primary Visit Diagnosis:Rectal cancer (HCC) [C20] Prescriptions as of 11/15/2024 - prochlorperazine (COMPAZINE) 10 mg tablet Take 1 tablet by mouth every 6 hours as needed. - ondansetron (ZOFRAN) 8 mg tablet Take 1 tablet by mouth every 8 hours as needed for nausea/vomiting. - polyethylene glycol 3350 (MIRALAX ORAL) Take 1 Dose by mouth once daily as needed (contstipation). - capecitabine (XELODA) 150 mg tablet Take 2 tablets (300 mg) by mouth two times a day with 1 other capecitabine prescription for 1,300 mg total. - capecitabine (XELODA) 500 mg tablet Take 2 tablets (1,000 mg) by mouth two times a day with 1 other capecitabine prescription for 1,300 mg total. Problem List As Of Date: 11/15/2024 (None) Encounter Status:Closed by Sherrie MONSON on 11/15/24 [facility] 11-15-2024 PEYMANN Telephone (TITA) BENTLEY GONZALEZ ([id number]) 1960 M Date Time Provider Department 11/15/24 REBECCA BALLARD During your visit today, we recorded the following information about you: Rebecac Ballard RN 11/15/2024 2:31 PM Signed ORAL ANTI-CANCER AGENTS FOLLOW-UP PHONE CALL/VISIT Patient identified by name and date of . YES Patient is on cycle 1, week 1, day 6 of Capecitabine (Xeloda) concurrent with radiation for Colon / Rectal Cancer. SYMPTOM ASSESSMENT Headache: No Visual Changes: No Dizziness: No Do you have any periods of confusion? No Mouth or throat pain: No Appetite: no changes in appetite, appetite good Taste changes: No Nausea: No Vomiting: No Heartburn: No. Weight gain/loss: No Episodes of palpitations/chest discomfort/pressure/lianne n No Shortness of breath: No Cough: No Diarrhea: no Constipation: pt states he had a little constipation over the weekend. States he takes miralax daily and his stools seemed to be pretty loose, so he held his miralax for a couple days and then developed constipation. Pt took a small dose of miralax last night and had some relief today. Is planning on taking a small dose again tonight. Bladder/Urinary Changes: None Pain: No=0 (pain 0 on a scale of 0-10). Fever: No Chills: No Numbness/weakness: No Skin changes: No Denies hand foot syndrome Musculoskeletal/joint changes/issues No Bleeding issues: No Activity Level (0-100%): normal Do you need to take naps? No Does the patient need interventions or same day appointment:No ADDITIONAL FOLLOW UP: The next outreach call is due on: prn and was scheduled prn The following lab tests are due: CBC, CMP Verified patient is aware of next appointment in the cancer center: Yes. Verified patient verbalized how to correctly refill the oral agent prescription. Yes Does the patient have any financial difficulties affording this medication? No Patient verbalizes understanding of when to seek Medical Attention? YES Patient verbalizes understanding of after-hours and weekend phone number? YES Patient verbalized importance of medication compliance in taking the oral agent as prescribed. Patient instructed to call if unable to comply. Rebecca Ballard RN Allergies As of Date: 11/15/2024 (No Known Allergies) Date Reviewed: 11/15/2024 Reviewed by: Alison Louise RN - Fully Assessed Reason for Visit: Care Coordination [3491] Cmt: C1D1 treatment follow up call Prescriptions as of 11/15/2024 - prochlorperazine (COMPAZINE) 10 mg tablet Take 1 tablet by mouth every 6 hours as needed. - ondansetron (ZOFRAN) 8 mg tablet Take 1 tablet by mouth every 8 hours as needed for nausea/vomiting. - polyethylene glycol 3350 (MIRALAX ORAL) Take 1 Dose by mouth once daily as needed (contstipation). - capecitabine (XELODA) 150 mg tablet Take 2 tablets (300 mg) by mouth two times a day with 1 other capecitabine prescription for 1,300 mg total. - capecitabine (XELODA) 500 mg tablet Take 2 tablets (1,000 mg) by mouth two times a day with 1 other capecitabine prescription for 1,300 mg total. Problem List As Of Date: 11/15/2024 (None) Encounter Status:Closed by [facility] C[facility] (HEMASA) BENTLEY GONZALEZ ([id number]) 1960 M Date Time Provider Department 11/11/24 REBECCA BALLARD HEMASA During your visit today, we recorded the following information about you: Rebecca Ballard RN 11/11/2024 11:50 AM Signed Pt calls stating he gets a runny nose after every radiation treatment, and then it goes away after a little while. Pt asking if this it to be expected? Please advise. He will be in for radiation later today if someone wants to answer this for him then. Thanks AYO Hong Ariana E, RN 11/12/2024 1:55 PM Signed Bentley is here for radiation therapy today without c/o a runny nose today or yesterday after treatment. We reviewed that should not be a side effect of radiation therapy but to continue notifying our office with any new concerns or questions. Barbie Causey RN Allergies As of Date: 11/11/2024 (No Known Allergies) Date Reviewed: 11/08/2024 Reviewed by: Radha Talbot MA - Fully Assessed Reason for Visit: Care Coordination [3491] Cmt: Radiation question Prescriptions as of 11/12/2024 - prochlorperazine (COMPAZINE) 10 mg tablet Take 1 tablet by mouth every 6 hours as needed. - ondansetron (ZOFRAN) 8 mg tablet Take 1 tablet by mouth every 8 hours as needed for nausea/vomiting. - polyethylene glycol 3350 (MIRALAX ORAL) Take 1 Dose by mouth once daily as needed (contstipation). - capecitabine (XELODA) 150 mg tablet Take 2 tablets (300 mg) by mouth two times a day with 1 other capecitabine prescription for 1,300 mg total. - capecitabine (XELODA) 500 mg tablet Take 2 tablets (1,000 mg) by mouth two times a day with 1 other capecitabine prescription for 1,300 mg total. Problem List As Of Date: 11/11/2024 (None) Encounter Status:Closed by BARBIE CAUSEY on 11/12/[address] [facility] REFERRAL FOR ADDITIONAL BIOMARKER AND MOLECULAR TESTINGon 11-09-2024 Specimen Type: TISSU E SPECIMEN Ordering Facility: [facility] Address: [address] [place] [address] Original Ordering Provider: SANCHO SÁNCHEZ [facility] CBC W Auto Differential pane l (Bld)on 11-08-2024 Basophils (Bld) [#/Vol] 0.04 10*3/uL Normal <0.[address] [facility] Comment on above: Order Comment: Speci men Type: BLOOD SPECIMENOrdering Facility: [facility] Address: [address] [place] [address] Performed By: #### 5 7021-8 ####[facility] LABCLIA [id number] [place] [address] Basophils/100 WBC (Bld) 0.5 % Normal [facility] Comment on above: Order Comment: Speci men Type: BLOOD SPECIMENOrdering Facility: [facility] Address: [address] [place] [address] Performed By: #### 5 7021-8 ####[facility] LABCLIA [id number] [place] [address] Differential cell count method Nom (Bld) Auto Normal [facility] Comment on above: Order Comment: Speci men Type: BLOOD SPECIMENOrdering Facility: [facility] Address: [address] [place] [address] Performed By: #### 5 7021-8 ####[facility] LABCLIA [id number] [place] [address] Eosinophils (Bld) [#/Vol] 0.14 10*3/uL Normal <0.[address] [facility] Comment on above: Order Comment: Speci men Type: BLOOD SPECIMENOrdering Facility: [facility] Address: [address] [place] [address] Performed By: #### 5 7021-8 ####[facility] LABCLIA [id number] [place] [address] Eosinophils/100 WBC (Bld) 1.9 % Normal [facility] Comment on above: Order Comment: Speci men Type: BLOOD SPECIMENOrdering Facility: [facility] Address: [address] [place] [address] Performed By: #### 5 7021-8 ####[facility] LABCLIA [id number] [place] [address] Erythrocyte distribution width (RBC) [Ratio] 13.1 % Normal 11.5-15.[address] [facility] Comment on above: Order Comment: Speci men Type: BLOOD SPECIMENOrdering Facility: [facility] Address: [address] [place] [address] Performed By: #### 5 7021-8 ####[facility] LABCLIA [id number] [place] [address] Hematocrit (Bld) [Volume fraction] 46.0 % Normal 39.0-51.[address] [facility] Comment on above: Order Comment: Speci men Type: BLOOD SPECIMENOrdering Facility: [facility] Address: [address] [place] [address] Performed By: #### 5 7021-8 ####[facility] LABCLIA [id number] [place] [address] Hemoglobin (Bld) [Mass/Vol] 15.3 g/dL Normal 13.0-17.[address] [facility] Comment on above: Order Comment: Speci men Type: BLOOD SPECIMENOrdering Facility: [facility] Address: [address] [place] [address] Performed By: #### 5 7021-8 ####[facility] LABCLIA [id number] [place] [address] Immature granulocytes (Bld) [#/Vol] 10*3/uL Normal <0.[address] [facility] Comment on above: Order Comment: Speci men Type: BLOOD SPECIMENOrdering Facility: [facility] Address: [address] [place] [address] Performed By: #### 5 7021-8 ####[facility] LABCLIA [id number] [place] [address] Immature granulocytes/100 WBC (Bld) 0.3 % Normal [facility] Comment on above: Order Comment: Speci men Type: BLOOD SPECIMENOrdering Facility: [facility] Address: [address] [place] [address] Performed By: #### 5 7021-8 ####[facility] LABCLIA [id number] [place] [address] Lymphocytes (Bld) [#/Vol] 1.67 10*3/uL Normal 1.00-4.[address] [facility] Comment on above: Order Comment: Speci men Type: BLOOD SPECIMENOrdering Facility: [facility] Address: [address] [place] [address] Performed By: #### 5 7021-8 ####[facility] LABCLIA [id number] [place] [address] Lymphocytes/100 WBC (Bld) 22.6 % Normal [facility] Comment on above: Order Comment: Speci men Type: BLOOD SPECIMENOrdering Facility: [facility] Address: [address] [place], [place] [address] Performed By: #### 5 7021-8 ####[facility] LABCLIA [id number] [place] [address] MCH (RBC) [Entitic mass] 30.8 pg Normal 26.0-34.[address] [facility] Comment on above: Order Comment: Speci men Type: BLOOD SPECIMENOrdering Facility: [facility] Address: [address] [place] [address] Performed By: #### 5 7021-8 ####[facility] LABIA [id number] [place] [address] MCHC (RBC) [Mass/Vol] 33.3 g/dL Normal 30.5-36.0 [facility] Comment on above: Order Comment: Speci men Type: BLOOD SPECIMENOrdering Facility: [facility] Address: [address] [place] [address] Performed By: #### 5 7021-8 ####[facility] LABCLIA [id number] [place] [address] MCV (RBC) [Entitic vol] 92.6 fL Normal 80.0-100.[address] [facility] Comment on above: Order Comment: Speci men Type: BLOOD SPECIMENOrdering Facility: [facility] Address: [address] [place] [address] Performed By: #### 5 7021-8 ####[facility] LABIA [id number] [place] [address] Monocytes (Bld) [#/Vol] 0.65 10*3/uL Normal <0.[address] [facility] Comment on above: Order Comment: Speci men Type: BLOOD SPECIMENOrdering Facility: [facility] Address: [address] [place] [address] Performed By: #### 5 7021-8 ####[facility] LABCLIA [id number] [place] [address] Monocytes/100 WBC (Bld) 8.8 % Normal [facility] Comment on above: Order Comment: Speci men Type: BLOOD SPECIMENOrdering Facility: [facility] Address: [address] [place] [address] Performed By: #### 5 7021-8 ####[facility] LABCLIA [id number] [place] [address] Neutrophils (Bld) [#/Vol] 4.87 10*3/uL Normal 1.45-7.[address] [facility] Comment on above: Order Comment: Speci men Type: BLOOD SPECIMENOrdering Facility: [facility] Address: [address] [place] [address] Performed By: #### 5 7021-8 ####[facility] LABCLIA [id number] [place] [address] Neutrophils/100 WBC (Bld) 65.9 % Normal [facility] Comment on above: Order Comment: Speci men Type: BLOOD SPECIMENOrdering Facility: [facility] Address: [address] [place] [address] Performed By: #### 5 7021-8 ####[facility] LABCLIA [id number] [place] [address] Nucleated RBC (Bld) [#/Vol] 10*3/uL Normal <0.[address] [facility] Comment on above: Order Comment: Speci men Type: BLOOD SPECIMENOrdering Facility: [facility] Address: [address] [place] [address] Performed By: #### 5 7021-8 ####[facility] LABCLIA [id number] [place] [address] Nucleated RBC/100 WBC (Bld) [Ratio] 0.0 /100 WBC Normal [facility] Comment on above: Order Comment: Speci men Type: BLOOD SPECIMENOrdering Facility: [facility] Address: [address] [place] [address] Performed By: #### 5 7021-8 ####[facility] LABCLIA [id number] [place] [address] Platelet mean volume (Bld) [Entitic vol] 8.9 fL Low 9.0-12.[address] [facility] Comment on above: Order Comment: Speci men Type: BLOOD SPECIMENOrdering Facility: [facility] Address: [address] [place] [address] Performed By: #### 5 7021-8 ####[facility] LABCLIA [id number] [place] [address] Platelets (Bld) [#/Vol] 289 10*3/uL Normal 150-[address] [facility] Comment on above: Order Comment: Speci men Type: BLOOD SPECIMENOrdering Facility: [facility] Address: [address] [place] [address] Performed By: #### 5 7021-8 ####[facility] LABCLIA [id number] [place] [address] RBC (Bld) [#/Vol] 4.97 10*6/uL Normal 4.20-6.00 [facility] Comment on above: Order Comment: Speci men Type: BLOOD SPECIMENOrdering Facility: [facility] Address: [address] [place] [address] Performed By: #### 5 7021-8 ####[facility] LABCLIA [id number] [place] [address] WBC (Bld) [#/Vol] 7.39 10*3/uL Normal 3.70-11.00 [facility] Comment on above: Order Comment: Speci men Type: BLOOD SPECIMENOrdering Facility: [facility] Address: [address] [place] [address] Performed By: #### 5 7021-8 ####[facility] LABCLIA [id number] [place] [address] [facility] CBC W AUTO DIFF BLDon Basophils/100 WBC (Bld) 0.5 % [facility] BASOPHILS # BLD AUTO 0.04 [facility] DIFFERENTIAL METHOD BLD Auto [facility] EOSINOPHIL # BLD AUTO 0.14 [facility] LYMPHOCYTES # BLD AUTO 1.67 [facility] MONOCYTES # BLD AUTO 0.65 [facility] NEUTROPHILS # BLD AUTO 4.87 [facility] NRBC # BLD AUTO <0.01 [facility] NRBC/100 WBC BLD-RTO 0 /100 WBC [facility] PLATELET # BLD AUTO 289 [facility] PMV BLD AUTO 8.9 fL Low 9.0 - 12.7 fL [facility] WBC # BLD AUTO 7.39 [facility] Eosinophils/100 WBC (Bld) 1.9 % [facility] Erythrocyte distribution width (RBC) [Ratio] 13.1 % 11.5 - 15.0 % [facility] Hematocrit (Bld) [Volume fraction] 46 % 39.0 - 51.0 % [facility] Hemoglobin (Bld) [Mass/Vol] 15.3 g/dL 13.0 - 17.0 g/dL [facility] IMM GRANULOCYTES # BLD AUTO <0.03 [facility] IMM GRANULOCYTES/LEUK NFR BLD AUTO 0.3 % [facility] Interpretation and review of laboratory results Abnormal [facility] Lymphocytes/100 WBC (Bld) 22.6 % [facility] MCH (RBC) [Entitic mass] 30.8 pg 26.0 - 34.0 pg [facility] MCHC (RBC) [Mass/Vol] 33.3 g/dL 30.5 - 36.0 g/dL [facility] MCV (RBC) [Entitic vol] 92.6 fL 80.0 - 100.0 fL [facility] Monocytes/100 WBC (Bld) 8.8 % [facility] Neutrophils/100 WBC (Bld) 65.9 % [facility] RBC (Bld) [#/Vol] 4.97 10*6/uL 4.20 - 6.0 0 m/uL [facility] Specimen Type: BLOOD SPECIMEN Ordering Facility: [facility] Address: [address] [place] [address] Original Ordering Provider: SANCHO BARNES [facility] CEA Jhl-yanick 11-08-2024 Carcinoembryonic Ag [Mass/Vol] 2.8 ng/mL Normal <=2.[address] [facility] Comment on above: Order Comment: Speci men Type: BLOOD SPECIMENOrdering Facility: [facility] Address: [address] [place] [address] Result Comment: Carc inoembryonic antigen test is used as an aid in monitoring response to treatment or recurrence in patients with established colorectal, breast, lung, prostatic, pancreatic, and ovarian carcinomas. Clinical correlation is required. The Carcinoembryonic antigen test was performed using the [employer] DXI paramagnetic particle chemiluminescent immunoassay method. Results obtained with different assay methods or kits cannot be used interchangeably. Performed By: #### 2 039-6 ####[facility] LABCLIA [id number] [address] [facility] CNNURSEon 11-08-2024 CNNURSE Nurse Visit (HEMASA) BENTLEY GONZALEZ ([id number]) 1960 Date Time Provider Department 11/08/24 9:00 AM REBECCA BALLARD During your visit today, we recorded the following information about you: Alejandra Everett RPh 11/08/2024 10:09 AM Signed [facility] Department of Pharmacy Oncology Pharmacy Medication Education Patient Name: Bentley Gonzalez Primary Oncologist: Gonzalo Diagnosis: Rectal Ca Bentley Gonzalez is a 64 year old patient and spouse here today for medication education for PO Capecitabine (Xeloda). Drug Interactions: Clinically significant interactions with chemotherapy, immunosuppression, or other standard of care treatment plan medications anticipated: No. There are no pertinent drug interactions identified. Patient was counseled accordingly. Allergies: Patient confirmed allergies documented in Epic are correct: Yes Was medication education provided?: Yes Medication Education: Administration and schedule: Take 1300 mg ( 2 x 500 mg tablets and 2 x 150 mg tablets) with food twice a day apx 12 hours apart Potential side effects discussed: anemia, appetite changes, bowel habit changes, diet, electrolyte disturbances, fatigue, hand-foot syndrome, infection, mucositis, nausea/vomitting, neutropenia, thrombocytopenia PO chemo: Verified patient understands where to store the drug. Yes Verified that patient understands prescription delivery, benefit investigation and refill process. Yes Was medication reconciliation performed?: Yes Changes made to medication list? No Current Outpatient Medications Medication Sig prochlorperazine (COMPAZINE) 10 mg tablet Take 1 tablet by mouth every 6 hours as needed. ondansetron (ZOFRAN) 8 mg tablet Take 1 tablet by mouth every 8 hours as needed for nausea/vomiting. polyethylene glycol 3350 (MIRALAX ORAL) Take by mouth. capecitabine (XELODA) 150 mg tablet Take 2 tablets (300 mg) by mouth two times a day with 1 other capecitabine prescription for 1,300 mg total. capecitabine (XELODA) 500 mg tablet Take 2 tablets (1,000 mg) by mouth two times a day with 1 other capecitabine prescription for 1,300 mg total. iv contrast (will be provided with radiology test) MRI Rectum Inject, intravenously, once for 1 dose. No IV access, insert saline lock prior to the beginning of sedation, infusion, injection of imaging exam. Discontinue saline lock post exam. If Pt has a central line or IVAD, may access for administration according to line specific nursing protocol. Once exam is complete flush line and de-access according to line specific nursing protocol in the MR contrast administration guidelines link. (Patient not taking: Reported on 10/18/2024) enteric contrast (will be provided with radiology test) MRI RECTUM WO/W. Administer, As Directed One Time Only, via Oral, Rectal, both Oral and Rectal, Enteric Tube, Stoma or Indwelling Catheter, Enteric Contrast as designated per enteric contrast guidelines (Patient not taking: Reported on 10/18/2024) iv contrast (will be provided with radiology test) CT Chest ABD/PEL-Inject, intravenously, once for 1 dose.No IV access, insert saline lock prior to the beginning of sedation, infusion, injection of imaging exam. Discontinue saline lock post exam. If Pt. has a central line or IVAD, may access for administration according to line specific nursing protocol. Once exam is complete flush line and de-access according to line specific nursing protocol in the CT contrast administration guidelines link. (Patient not taking: Reported on 10/18/2024) enteric contrast (will be provided with radiology test) For CT CHESTABD/PEL W IVCON Routine order Administer, As Directed One Time Only, via Oral, Rectal, both Oral and Rectal, Enteric Tube, Stoma or Indwelling Catheter, Enteric Contrast as designated per enteric contrast guidelines (Patient not taking: Reported on 10/18/2024) No current facility-administered medications for this visit. - Chemotherapy education was provided by a pharmacist NO - Thank you for allowing us to participate in the care of this patient. I spent 15 time (15 minute increments) with the patient George Everett RPh Pager: Alejandra Everett RPh 11/08/2024 10:10 AM Signed Addended by: ALEJANDRA EVERETT on: 11/08/2024 10:10 AM Modules accepted: Rebecca Cabezas, RN 11/08/2024 9:47 AM Signed ORAL ANTI-CANCER AGENTS EDUCATION patient and spouse here today for oral medication education of capecitabine for Colon / Rectal Cancer Anticipated/Scheduled start date: today READINESS TO LEARN Cognitive Ability: Alert and oriented Motivation to Learn: Interested Family Support: High - Very involved in pt care Instruction Provided to: Patient and Spouse Patient learns best by: Multiple Methods Factors affecting learning: None Physical limitation affect (more content not included)... Normal [facility] CNOVSPon 11-08-2024 CNOVSP Visit (SP) Office (HEMASA) BENTLEY GONZALEZ ([id number]) 1960 Date Time Provider Department 11/08/24 8:30 AM SANCHO SÁNCHEZ During your visit today, we recorded the following information about you: Temperature Pulse Respiration Blood pressure 97.5 degrees 80/minute 16/minute 121/82 Weight Height 51.2 kg 1.715 m Sancho Sánchez MD 11/08/2024 2:40 PM Signed PATIENT NAME: Bentley Gonzalez CLINIC NO.: [id number] ATTENDING PHYSICIAN: Sancho Sánchez MD DATE OF SERVICE: 11/08/[address] Raz Tucker [id number] [address] [facility] [id number] thank you for referring Bentley Gonzalez for an opinion regarding Rectal cancer. Some of the elements of this note have been copied from my previous progress note dated 11/01/24 . All the information has been reviewed carefully. CHIEF COMPLAINT: Rectal cancer HPI: Bentley Gonzalez is a 64 year old year old male with no significant PMH referred to us for rectal mass. He reports months of hematochezia as well as change in bowel habits prompting him to present for endoscopic evaluation. On colonoscopy, he was found to have a rectal mass on LUIS ANTONIO and on endoscopic evaluation, pediatric scope could not be advanced past the mass. Biopsy was taken and result showed adenoca. He presents for further evaluation and management. Patient reports that his difficulty defecating included small pellet-like stools, ~10 times a day, which has improved since he started taking MiraLAX daily. He now has large volume stool but still go multiple times a day. His hematochezia is also resolved. Seen by surgeon . Scheduled for scans on 10/27/23. No family history of colon ca. Works in construction and randy. Smokes 1 pk/day for many yrs. 11/01/24: - CT chest (10/27/24)- Few scattered pulmonary nodules measuring up to 4 mm. Continued follow-up is recommended. - CT A/P (10/27/24)- 5 cm rectal mass with metastatic mesorectal and superior rectal lymphadenopathy. Indeterminate subcentimeter low-attenuation lesions in the liver. Attention on follow-up is recommended. 1.7 cm above water attenuation lesion in the left kidney. Consider ultrasound for further assessment versus attention on follow-up - MRI rectum (10/29/24)- 4.7 cm mid rectal mass extending into the mesorectal fat with multiple suspicious mesorectal lymph nodes. Stage: T3d N+ MRF: Involved (tumor margin within 1 mm of MRF Sphincter involvement: No. Suspicious extra mesorectal lymph nodes: No. EMVI: Yes - Able to pass bowel movements with miralax - No major complaints. 11/08/24: - Started radiation today - Doing well - No major complaints - Able to pass bowel movements Current Outpatient Medications Medication Sig polyethylene glycol 3350 (MIRALAX ORAL) Take by mouth. capecitabine (XELODA) 150 mg tablet Take 2 tablets (300 mg) by mouth two times a day with 1 other capecitabine prescription for 1,300 mg total. capecitabine (XELODA) 500 mg tablet Take 2 tablets (1,000 mg) by mouth two times a day with 1 other capecitabine prescription for 1,300 mg total. iv contrast (will be provided with radiology test) MRI Rectum Inject, intravenously, once for 1 dose. No IV access, insert saline lock prior to the beginning of sedation, infusion, injection of imaging exam. Discontinue saline lock post exam. If Pt has a central line or IVAD, may access for administration according to line specific nursing protocol. Once exam is complete flush line and de-access according to line specific nursing protocol in the MR contrast administration guidelines link. (Patient not taking: Reported on 10/18/2024) enteric contrast (will be provided with radiology test) MRI RECTUM WO/W. Administer, As Directed One Time Only, via Oral, Rectal, both Oral and Rectal, Enteric Tube, Stoma or Indwelling Catheter, Enteric Contrast as designated per enteric contrast guidelines (Patient not taking: Reported on 10/18/2024) iv contrast (will be provided with radiology test) CT Chest ABD/PEL-Inject, intravenously, once for 1 dose.No IV access, insert saline lock prior to the beginning of sedation, infusion, injection of imaging exam. Discontinue saline lock post exam. If Pt. has a central line or IVAD, may access for administration according to line specific nursing protocol. Once exam is complete flush line and de-access according to line specific nursing protocol in the CT contrast administration guidelines link. (Patient not taking: Reported on 10/18/2024) enteric contrast (will be provided with radiology test) For CT CHESTABD/PEL W IVCON Routine order Administer, As Directed One Time Only, via Oral, Rectal, both Oral and Rectal, Enteric Tube, Stoma or Indwelling Catheter, Enteric Contrast as designated per enteric contrast guidelines (Patient not taking: Reported on 10/18/2024) No current facility-administered medi (more content not included)... Normal [facility] CNPNon 11-08-2024 CNPN Telephone (NCCAP) BENTLEY GONZALEZ ([id number]) 1960 M Date Time Provider Department 11/08/24 SANCHO SÁNCHEZ NCC During your visit today, we recorded the following information about you: Bob Alves 11/08/2024 10:02 AM Signed Referring patient for port placement. Thanks Shirin! Bob Colon 11/08/2024 12:56 PM Signed Faxed port request to Jena @ Dr. Mix's office November 08, 2024 12:56 PM Bob Alves 11/09/2024 1:05 PM Signed Left message on Jena's [employer] for update of port placement date. Bob Colon 11/09/2024 3:38 PM Signed Jena called back and states she talked with patient and he has been scheduled for port placement on December 08 at 8 am. Bob Alves Allergies As of Date: 11/08/2024 (No Known Allergies) Date Reviewed: 11/08/2024 Reviewed by: Radha Talbot MA - Fully Assessed Reason for Visit: Port Placement [Other] Prescriptions as of 11/09/2024 - prochlorperazine (COMPAZINE) 10 mg tablet Take 1 tablet by mouth every 6 hours as needed. - ondansetron (ZOFRAN) 8 mg tablet Take 1 tablet by mouth every 8 hours as needed for nausea/vomiting. - polyethylene glycol 3350 (MIRALAX ORAL) Take 1 Dose by mouth once daily as needed (contstipation). - capecitabine (XELODA) 150 mg tablet Take 2 tablets (300 mg) by mouth two times a day with 1 other capecitabine prescription for 1,300 mg total. - capecitabine (XELODA) 500 mg tablet Take 2 tablets (1,000 mg) by mouth two times a day with 1 other capecitabine prescription for 1,300 mg total. Problem List As Of Date: 11/08/2024 (None) Encounter Status:Closed by BOB ALVES on 11/09/[address] [facility] Comprehensive metabolic 2000 panelon 11-08-2024 Albumin [Mass/Vol] 4.4 g/dL Normal 3.9-4.9 [facility] Comment on above: Order Comment: Speci men Type: BLOOD SPECIMENOrdering Facility: [facility] Address: [address] [place] [address] Performed By: #### 2 4323-8 ####[facility] LABCLIA [id number] [place] [address] ALP [Catalytic activity/Vol] 90 U/L Normal 38-[address] [facility] Comment on above: Order Comment: Speci men Type: BLOOD SPECIMENOrdering Facility: [facility] Address: [address] [place] [address] Performed By: #### 2 4323-8 ####[facility] LABCLIA [id number] [place] [address] ALT [Catalytic activity/Vol] 9 U/L Low 10-[address] [facility] Comment on above: Order Comment: Speci men Type: BLOOD SPECIMENOrdering Facility: [facility] Address: [address] [place] [address] Performed By: #### 2 4323-8 ####[facility] LABCLIA [id number] [place] [address] Anion gap [Moles/Vol] 12 mmol/L Normal 8-15 [facility] Comment on above: Order Comment: Speci men Type: BLOOD SPECIMENOrdering Facility: [facility] Address: [address] [place] [address] Performed By: #### 2 4323-8 ####[facility] LABCLIA [id number] [place] [address] AST [Catalytic activity/Vol] 14 U/L Normal 14-[address] [facility] Comment on above: Order Comment: Speci men Type: BLOOD SPECIMENOrdering Facility: [facility] Address: [address] [place] [address] Performed By: #### 2 4323-8 ####[facility] LABCLIA [id number] [place] [address] Bilirubin [Mass/Vol] 0.5 mg/dL Normal 0.2-1.3 [facility] Comment on above: Order Comment: Speci men Type: BLOOD SPECIMENOrdering Facility: [facility] Address: [address] [place] [address] Performed By: #### 2 4323-8 ####[facility] LABCLIA [id number] [place] [address] Calcium [Mass/Vol] 9.5 mg/dL Normal 8.5-10.2 [facility] Comment on above: Order Comment: Speci men Type: BLOOD SPECIMENOrdering Facility: [facility] Address: [address] [place] [address] Performed By: #### 2 4323-8 ####[facility] LABCLIA [id number] [place] [address] Chloride [Moles/Vol] 100 mmol/L Normal 98-107 [facility] Comment on above: Order Comment: Speci men Type: BLOOD SPECIMENOrdering Facility: [facility] Address: [address] [place] [address] Performed By: #### 2 4323-8 ####[facility] LABCLIA [id number] [place] [address] CO2 [Moles/Vol] 22 mmol/L Normal 22-[address] [facility] Comment on above: Order Comment: Speci men Type: BLOOD SPECIMENOrdering Facility: [facility] Address: [address] [place] [address] Performed By: #### 2 4323-8 ####[facility] LABCLIA [id number] [place] [address] Creatinine [Mass/Vol] 0.84 mg/dL Normal 0.73-1.22 [facility] Comment on above: Order Comment: Speci men Type: BLOOD SPECIMENOrdering Facility: [facility] Address: [address] [place] [address] Performed By: #### 2 4323-8 ####[facility] LABCLIA [id number] [place] [address] Creatinine and Glomerular filtration rate.predicted panel (S/P/Bld) 96 mL/min/1.73m??? Normal >=[address] [facility] Comment on above: Order Comment: Speci men Type: BLOOD SPECIMENOrdering Facility: [facility] Address: [address] [place] [address] Result Comment: Tanya mated Glomerular Filtration Rate (eGFR) is calculated using the 2020 CKD-EPI creatinine equation. This equation utilizes serum creatinine, sex, and age as parameters. The creatinine assay has traceable calibration to isotope dilution-mass spectrometry. Refer to KDIGO guidelines for clinical interpretation. In patients with unstable renal function, e.g. those with acute kidney injury, the eGFR may not accurately reflect actual GFR. Performed By: #### 2 4323-8 ####[facility] LABCLIA [id number] [place] [address] Glucose [Mass/Vol] 94 mg/dL Normal 74-99 [facility] Comment on above: Order Comment: Speci men Type: BLOOD SPECIMENOrdering Facility: [facility] Address: [address] [place] [id number] Result Comment: The [place] Diabetes Association (ADA) provides guidance for cutoff values for fasting glucose and random glucose. The ADA defines fasting as no caloric intake for at least 8 hours. Fasting plasma glucose results between 100 to 125 mg/dL indicate increased risk for diabetes (prediabetes). Fasting plasma glucose results greater than or equal to 126 mg/dL meet the criteria for diagnosis of diabetes. In the absence of unequivocal hyperglycemia, results should be confirmed by repeat testing. In a patient with classic symptoms of hyperglycemia or hyperglycemic crisis, random plasma glucose results greater than or equal to 200 mg/dL meet the criteria for diagnosis of diabetes. Reference: Standards of Medical Care in Diabetes 2016, [place] [employer]. Diabetes Care. 2016.39(Suppl 1). Performed By: #### 2 4323-8 ####[facility] LABCLIA [id number] [place] [address] Potassium [Moles/Vol] 4.0 mmol/L Normal 3.7-5.1 [facility] Comment on above: Order Comment: Speci men Type: BLOOD SPECIMENOrdering Facility: [facility] Address: [address] [place] [address] Performed By: #### 2 4323-8 ####[facility] LABCLIA [id number] [place] [address] Protein [Mass/Vol] 6.8 g/dL Normal 6.3-8.0 [facility] Comment on above: Order Comment: Speci men Type: BLOOD SPECIMENOrdering Facility: [facility] Address: [address] [place] [address] Performed By: #### 2 4323-8 ####[facility] LABCLIA [id number] [place] [address] Sodium [Moles/Vol] 134 mmol/L Low 136-144 [facility] Comment on above: Order Comment: Speci men Type: BLOOD SPECIMENOrdering Facility: [facility] Address: [address] [place] [address] Performed By: #### 2 4323-8 ####[facility] LABCLIA [id number] [place] [address] Urea nitrogen [Mass/Vol] 14 mg/dL Normal 9-[address] [facility] Comment on above: Order Comment: Speci men Type: BLOOD SPECIMENOrdering Facility: [facility] Address: [address] [place] [address] Performed By: #### 2 4323-8 ####[facility] LABCLIA [id number] [place] [address] Lanette 11-05-2024 CNPN Telephone (HEMASA) BENTLEY GONZALEZ ([id number]) 1960 M Date Time Provider Department 11/05/24 REBECCA BALLARD During your visit today, we recorded the following information about you: Rebecca Ballard RN 11/05/2024 12:30 PM Signed Pt will be in for chemo ed on Friday. Please sign pending orders. Thanks Rebecca Ballard RN Allergies As of Date: 11/05/2024 (No Known Allergies) Date Reviewed: 11/01/2024 Reviewed by: Josie Spangler MA - Fully Assessed Reason for Visit: Care Coordination [3491] Cmt: Treatment planning Primary Visit Diagnosis:Rectal cancer (HCC) [C20] Order(s):prochlorperazi ne (COMPAZINE) 10 mg tabletTake 1 tablet by mouth every 6 hours as needed.Disp: 100 tabletRfl: 2 ondansetron (ZOFRAN) 8 mg tabletTake 1 tablet by mouth every 8 hours as needed for nausea/vomiting.Disp: 90 tabletRfl: 2 CONSULT TO SURVIVORSHIP [[id number]] Order #: [id number]: 1 FUTURE Prescriptions as of 11/11/2024 - prochlorperazine (COMPAZINE) 10 mg tablet Take 1 tablet by mouth every 6 hours as needed. - ondansetron (ZOFRAN) 8 mg tablet Take 1 tablet by mouth every 8 hours as needed for nausea/vomiting. - polyethylene glycol 3350 (MIRALAX ORAL) Take 1 Dose by mouth once daily as needed (contstipation). - capecitabine (XELODA) 150 mg tablet Take 2 tablets (300 mg) by mouth two times a day with 1 other capecitabine prescription for 1,300 mg total. - capecitabine (XELODA) 500 mg tablet Take 2 tablets (1,000 mg) by mouth two times a day with 1 other capecitabine prescription for 1,300 mg total. Problem List As Of Date: 11/05/2024 (None) Prescriptions ordered this encounter Disp Refills Start End PROCHLORPERAZINE MALEATE 10 MG TABLET 100 * 2 11/05/2024 Route: ORAL Sig: Take 1 tablet by mouth every 6 hours as needed. ONDANSETRON HCL 8 MG TABLET 90 t* 2 11/05/2024 Route: ORAL Sig: Take 1 tablet by mouth every 8 hours as needed for nausea/vomiting. Encounter Status:Closed by REBECCA BALLARD on 11/11/24 [facility] Lanette 11-02-[address] [facility] Telephone (HEMASA) BENTLEY GONZALEZ ([id number]) 1960 M Date Time Provider Department 11/02/24 SANCHO SÁNCHEZ During your visit today, we recorded the following information about you: Karlie Prather MA 11/02/2024 3:38 PM Signed [employer] policy paperwork completed and put in Dr Sánchez's folder for signature. SOFIA Ashton Dorothy, MA 11/03/2024 11:42 AM Signed Patient notified and form placed at the Resident Intern for filler picker, copy scanned into chart. Risa Govea MA Allergies As of Date: 11/02/2024 (No Known Allergies) Date Reviewed: 11/01/2024 Reviewed by: Spangler, Josie, MA - Fully Assessed Prescriptions as of 11/03/2024 - polyethylene glycol 3350 (MIRALAX ORAL) Take by mouth. - capecitabine (XELODA) 150 mg tablet Take 2 tablets (300 mg) by mouth two times a day with 1 other capecitabine prescription for 1,300 mg total. - capecitabine (XELODA) 500 mg tablet Take 2 tablets (1,000 mg) by mouth two times a day with 1 other capecitabine prescription for 1,300 mg total. - iv contrast (will be provided with radiology test) MRI Rectum Inject, intravenously, once for 1 dose. No IV access, insert saline lock prior to the beginning of sedation, infusion, injection of imaging exam. Discontinue saline lock post exam. If Pt has a central line or IVAD, may access for administration according to line specific nursing protocol. Once exam is complete flush line and de-access according to line specific nursing protocol in the MR contrast administration guidelines link. - enteric contrast (will be provided with radiology test) MRI RECTUM WO/W. Administer, As Directed One Time Only, via Oral, Rectal, both Oral and Rectal, Enteric Tube, Stoma or Indwelling Catheter,? Enteric Contrast as designated per enteric contrast guidelines - iv contrast (will be provided with radiology test) CT Chest ABD/PEL-Inject, intravenously, once for 1 dose.No IV access, insert saline lock prior to the beginning of sedation, infusion, injection of imaging exam. Discontinue saline lock post exam. If Pt. has a central line or IVAD, may access for administration according to line specific nursing protocol. Once exam is complete flush line and de-access according to line specific nursing protocol in the CT contrast administration guidelines link. - enteric contrast (will be provided with radiology test) For CT CHESTABD/PEL W IVCON Routine order Administer, As Directed One Time Only, via Oral, Rectal, both Oral and Rectal, Enteric Tube, Stoma or Indwelling Catheter, Enteric Contrast as designated per enteric contrast guidelines Problem List As Of Date: 11/02/2024 (None) Encounter Status:Closed by RISA GOVEA on 11/03/24 [facility] CNOVSPon 11-01-2024 CNOVSP Visit (SP) Office ([facility]) BENTLEY GONZALEZ ([id number]) 1960 M Date Time Provider Department 11/01/24 2:00 PM SANCHO SÁNCHEZ During your visit today, we recorded the following information about you: Temperature Pulse Respiration Blood pressure 97.1 degrees 93/minute 18/minute 146/78 Weight 53.3 kg Sancho Sánchez MD 11/01/2024 1:57 PM Signed Chemo teach for xeloda Starting radiation on 11/08/24 Will start xeloda on 11/08/24 F/u on 11/08/24 Sancho Sánchez MD 11/01/2024 2:09 PM Signed PATIENT NAME: Bentley Gonzalez CLINIC NO.: [id number] ATTENDING PHYSICIAN: Sancho Sánchez MD DATE OF SERVICE: November 01, [address] Raz Tucker [id number] [address] [facility] [address] thank you for referring Bentley Gonzalez for an opinion regarding Rectal cancer. CHIEF COMPLAINT: Rectal cancer HPI: Bentley Gonzalez is a 64 year old year old male with no significant PMH referred to us for rectal mass. He reports months of hematochezia as well as change in bowel habits prompting him to present for endoscopic evaluation. On colonoscopy, he was found to have a rectal mass on LUIS ANTONIO and on endoscopic evaluation, pediatric scope could not be advanced past the mass. Biopsy was taken and result showed adenoca. He presents for further evaluation and management. Patient reports that his difficulty defecating included small pellet-like stools, ~10 times a day, which has improved since he started taking MiraLAX daily. He now has large volume stool but still go multiple times a day. His hematochezia is also resolved. Seen by surgeon . Scheduled for scans on 10/27/23. No family history of colon ca. Works in construction and randy. Smokes 1 pk/day for many yrs. 11/01/24: - CT chest (10/27/24)- Few scattered pulmonary nodules measuring up to 4 mm. Continued follow-up is recommended. - CT A/P (10/27/24)- 5 cm rectal mass with metastatic mesorectal and superior rectal lymphadenopathy. Indeterminate subcentimeter low-attenuation lesions in the liver. Attention on follow-up is recommended. 1.7 cm above water attenuation lesion in the left kidney. Consider ultrasound for further assessment versus attention on follow-up - MRI rectum (10/29/24)- 4.7 cm mid rectal mass extending into the mesorectal fat with multiple suspicious mesorectal lymph nodes. Stage: T3d N+ MRF: Involved (tumor margin within 1 mm of MRF Sphincter involvement: No. Suspicious extra mesorectal lymph nodes: No. EMVI: Yes - Able to pass bowel movements with miralax - No major complaints. Current Outpatient Medications Medication Sig iv contrast (will be provided with radiology test) MRI Rectum Inject, intravenously, once for 1 dose. No IV access, insert saline lock prior to the beginning of sedation, infusion, injection of imaging exam. Discontinue saline lock post exam. If Pt has a central line or IVAD, may access for administration according to line specific nursing protocol. Once exam is complete flush line and de-access according to line specific nursing protocol in the MR contrast administration guidelines link. (Patient not taking: Reported on 10/18/2024) enteric contrast (will be provided with radiology test) MRI RECTUM WO/W. Administer, As Directed One Time Only, via Oral, Rectal, both Oral and Rectal, Enteric Tube, Stoma or Indwelling Catheter, Enteric Contrast as designated per enteric contrast guidelines (Patient not taking: Reported on 10/18/2024) iv contrast (will be provided with radiology test) CT Chest ABD/PEL-Inject, intravenously, once for 1 dose.No IV access, insert saline lock prior to the beginning of sedation, infusion, injection of imaging exam. Discontinue saline lock post exam. If Pt. has a central line or IVAD, may access for administration according to line specific nursing protocol. Once exam is complete flush line and de-access according to line specific nursing protocol in the CT contrast administration guidelines link. (Patient not taking: Reported on 10/18/2024) enteric contrast (will be provided with radiology test) For CT CHESTABD/PEL W IVCON Routine order Administer, As Directed One Time Only, via Oral, Rectal, both Oral and Rectal, Enteric Tube, Stoma or Indwelling Catheter, Enteric Contrast as designated per enteric contrast guidelines (Patient not taking: Reported on 10/18/2024) No current facility-administered medications for this visit. ALLERGIES No Known Allergies No past medical history on file. PAST SURGICAL HISTORY Procedure Laterality Date TONSILLECTOMY AND ADENOIDECTOMY FAMILY HISTORY Problem Relation Age of Onset Breast Cancer Mother Lung Cancer Father Cancer Sister Social History Tobacco Use Smoking status: Every Day Current packs/day: 1.00 Average packs/day: 1 pack/day for 54.1 years (54.1 ttl pk-yrs) Types: Cigarettes Start (more content not included)... Normal [facility] REFERRAL FOR ADDITIONAL BIOM ARKER AND MOLECULAR TESTINGon 11-01-2024 REFERRAL FOR ADDITIONAL BIOMARKER AND MOLECULAR TESTING Normal [facility] Comment on above: Order Comment: Speci men Type: TISSUE SPECIMENOrdering Facility: [facility] Address: [address] [place] [address] Result Comment: Requ est has been received for evaluation and the results will be issued separately. Performed By: #### A PMOL ####[facility] LABCLIA [id number] [place] [address] MRI RECTUM WO/W IVCONon 10-07 MRI RECTUM WO/W IVCON * * *Final Report* * * DATE OF EXAM: Oct 29 2024 11:50AM [facility] [id number] - MRI RECTUM WO/W IVCON / PROCEDURE REASON: Rectal mass * * * * Physician Interpretation * * * * MRI OF THE PELVIS WITHOUT AND WITH CONTRAST: RECTAL CANCER STAGING CLINICAL HISTORY: Invasive moderately differentiated adenocarcinoma of the rectum. COMPARISON: CT abdomen pelvis 10/27/2024 TECHNIQUE: Magnet: 1.5T scanner. Multiplanar MRI with multiple sequences before and after contrast. Contrast: IV: 5 ml of Elucirem RESULT: PRIMARY TUMOR: MORPHOLOGY, LOCATION, AND CHARACTERISTICS: Distance to the anal verge: 6.3 cm (3:23) Distance to the top of sphincter complex/anorectal junction: 3.5 cm (3:23) Relationship to anterior peritoneal reflection: Straddles Craniocaudal length: 4.7 cm (13:17) Tumor location: Mid rectum (5-10 cm) Morphology: Annular Mucinous: No mucin MR-T stage: T3d (tumor penetrates > 15 mm beyond muscularis propria) Structures with possible invasion by T4b tumors: N/A Invasion of anal sphincter complex: Absent. Anal canal involvement: None. Comments: N/A TUMOR DEPOSITS AND EXTRAMURAL VASCULAR INVASION (EMVI): Tumor deposits:(separate from metastatic lymph nodes): 2.5 x 2.1 cm superior rectal tumor deposit (6:22). EMVI: Yes at the posterior 6:00 position (100:31) MESORECTAL FASCIA (MRF): Shortest distance of extraluminal part of the tumor to MRF: 0 cm (12:12) Tumor extension through the peritonealized portion of the rectum into peritoneal fat: No extension into peritoneal fat. Is there a separate tumor deposit, LN or EMVI threatening (?1mm and ?2 mm) or invading (< 1 mm) the MRF? Yes; 8 mm left mesorectal node inseparable from the mesorectal fascia (12:15) LYMPH NODES: Mesorectal/superior rectal lymph nodes and/or tumor deposits: N+ (short axis 5-9 mm AND at least 2 morphologic criteria) N Stage: N2 Index nodes: 9 mm posterior mesorectal node, (12:17) 6 mm posterior mid rectal node, (12:17) 8 mm left mesorectal node, (12:15) 7 mm right mesorectal node, (12:9) 2.5 x 2.1 cm confluent superior rectal tumor deposit (6:22) Suspicious extramesorectal lymph nodes: None. OTHER FINDINGS: No aggressive osseous lesions. IMPRESSION: 4.7 cm mid rectal mass extending into the mesorectal fat with multiple suspicious mesorectal lymph nodes. Stage: T3d N+ MRF: Involved (tumor margin within 1 mm of MRF Sphincter involvement: No. Suspicious extra mesorectal lymph nodes: No. EMVI: Yes. Awning Finisher: PSCB Transcribe Date/Time: Oct 29 2024 4:02P Dictated by : WILLA GILLESPIE MD This examination was interpreted and the report reviewed and electronically signed by: WILLA GILLESPIE MD on Oct 29 2024 4:25PM EST [id number] [facility] 10-28-2024 CNPN Telephone ([facility]) BENTLEY GONZALEZ ([id number]) 1960 M Date Time Provider Department 10/28/24 DUSTY MILY [facility] During your visit today, we recorded the following information about you: Allergies As of Date: 10/28/2024 (No Known Allergies) Date Reviewed: 10/27/2024 Reviewed by: Joyce Valles RD - Fully Assessed Reason for Visit: Appointment [[id number]] Cmt: Appointment reminder call--spoke with patient--gave directions to the office. Prescriptions as of 10/28/2024 - iv contrast (will be provided with radiology test) MRI Rectum Inject, intravenously, once for 1 dose. No IV access, insert saline lock prior to the beginning of sedation, infusion, injection of imaging exam. Discontinue saline lock post exam. If Pt has a central line or IVAD, may access for administration according to line specific nursing protocol. Once exam is complete flush line and de-access according to line specific nursing protocol in the MR contrast administration guidelines link. - enteric contrast (will be provided with radiology test) MRI RECTUM WO/W. Administer, As Directed One Time Only, via Oral, Rectal, both Oral and Rectal, Enteric Tube, Stoma or Indwelling Catheter,? Enteric Contrast as designated per enteric contrast guidelines - iv contrast (will be provided with radiology test) CT Chest ABD/PEL-Inject, intravenously, once for 1 dose.No IV access, insert saline lock prior to the beginning of sedation, infusion, injection of imaging exam. Discontinue saline lock post exam. If Pt. has a central line or IVAD, may access for administration according to line specific nursing protocol. Once exam is complete flush line and de-access according to line specific nursing protocol in the CT contrast administration guidelines link. - enteric contrast (will be provided with radiology test) For CT CHESTABD/PEL W IVCON Routine order Administer, As Directed One Time Only, via Oral, Rectal, both Oral and Rectal, Enteric Tube, Stoma or Indwelling Catheter, Enteric Contrast as designated per enteric contrast guidelines Problem List As Of Date: 10/28/2024 (None) Encounter Status:Closed by DUSTY MILY on 10/28/[address] [facility] [address] ABD/PEL W IVCONon 025 CT ABD/PEL W IVCON * * *Final Report* * * DATE OF EXAM: Oct 27 2024 9:01AM [facility] 0530 - CT ABD/PEL W IVCON / PROCEDURE REASON: Rectal mass * * * * Physician Interpretation * * * * RESULT: EXAMINATION: CT ABDOMEN AND PELVIS WITH IV CONTRAST PATIENT/TECHNOLOGIST PROVIDED HISTORY: rectal cancer CLINICAL INFORMATION ( PROVIDED BY ORDERING CLINICIAN) : Rectal mass TECHNIQUE: CT of the abdomen and pelvis was performed using standard technique, scanning from just above the dome of the diaphragm to the pubic symphysis. . Contrast: IV: 100 ml of Omnipaque 350 Oral: 500 ml of Omni 240 10-25ml diluted with water CT Radiation dose: Integrated Dose-length product (DLP) for this visit = 405 mGy*cm. CT Dose Reduction Employed: Automated exposure control (AEC) COMPARISON: None. Abdomen / Pelvis: Liver: 4 mm low-attenuation lesion in segment 8 (image 20) too small to characterize. Additional 2 mm low-attenuation lesion in segment 4A (axial image 18). Spleen: No focal splenic lesion. Pancreas: No focal pancreatic lesions. Adrenals: No mass. Biliary: No bile duct dilation. No gallbladder wall thickening. Kidneys: Symmetric nephrograms bilaterally without hydronephrosis. 1.7 cm above water attenuation lesion posterior interpolar left kidney (image 39). Vasculature: The celiac axis and SMA are patent. The portal vein and branches, splenic vein, SMV, and hepatic veins are patent. Moderate atherosclerotic calcifications of the abdominal aorta without aneurysm. GI tract: Approximately 5 cm rectal mass in the mid rectum extending through the rectal wall. Large amount of stool within the colon without colonic dilation. Lymph nodes: Multiple subcentimeter suspicious appearing mesorectal lymph nodes. 2.5 x 2.0 cm superior rectal lymph node mass (axial image 101). 1.2 cm superior rectal node (image 96). Mesentery/Peritoneum: No ascites, fluid collection, or mass. Pelvis: No mass or fluid collection. Urinary bladder is unremarkable. Bones/Soft tissues: No aggressive osseous lesions. Lower thorax: Dedicated CT imaging of the chest was performed concurrently and is dictated separately. Diagnostic Radiologist (topogram) images: Unremarkable. IMPRESSION: 5 cm rectal mass with metastatic mesorectal and superior rectal lymphadenopathy. Indeterminate subcentimeter low-attenuation lesions in the liver. Attention on follow-up is recommended. 1.7 cm above water attenuation lesion in the left kidney. Consider ultrasound for further assessment versus attention on follow-up. Transcribe Date/Time: Oct 27 2024 11:04A Dictated by: WILLA GILLESPIE MD This examination was interpreted and the report reviewed and electronically signed by: WILLA GILLESPIE MD on Oct 27 2024 11:14AM EST Thank you for allowing us to participate in the care of your patient. Should there be any questions regarding this interpretation, please call [phone]. If you are unable to reach us at the number above, please feel free to contact [facility] at [phone]. [id number] Normal [facility] CT Abdomen and Pelvis W cont rast Lila 10-27-2024 IMPRESSION: 5 cm rectal mass with metastatic mesorectal and superior rectal lymphadenopathy. Indeterminate subcentimeter low-attenuation lesions in the liver. Attention on follow-up is recommended. 1.7 cm above water attenuation lesion in the left kidney. Consider ultrasound for further assessment versus attention on follow-up. Transcribe Date/Time: Oct 27 2024 11:04A Dictated by: WILLA GILLESPIE MD This examination was interpreted and the report reviewed and electronically signed by: WILLA GILLESPIE MD on Oct 27 2024 11:14AM EST Thank you for allowing us to participate in the care of your patient. Should there be any questions regarding this interpretation, please call [phone]. If you are unable to reach us at the number above, please feel free to contact [facility] at [phone]. DIVISION OF RADIOLOGY * * *Final Report* * * DATE OF EXAM: Oct 27 2024 9:01AM [facility] 0530 - CT ABD/PEL W IVCON / PROCEDURE REASON: Rectal mass * * * * Physician Interpretation * * * * RESULT: EXAMINATION: CT ABDOMEN AND PELVIS WITH IV CONTRAST PATIENT/TECHNOLOGIST PROVIDED HISTORY: rectal cancer CLINICAL INFORMATION ( PROVIDED BY ORDERING CLINICIAN) : Rectal mass TECHNIQUE: CT of the abdomen and pelvis was performed using standard technique, scanning from just above the dome of the diaphragm to the pubic symphysis. . Contrast: IV: 100 ml of Omnipaque 350 Oral: 500 ml of Omni 240 10-25ml diluted with water CT Radiation dose: Integrated Dose-length product (DLP) for this visit = 405 mGy*cm. CT Dose Reduction Employed: Automated exposure control (AEC) COMPARISON: None. Abdomen / Pelvis: Liver: 4 mm low-attenuation lesion in segment 8 (image 20) too small to characterize. Additional 2 mm low-attenuation lesion in segment 4A (axial image 18). Spleen: No focal splenic lesion. Pancreas: No focal pancreatic lesions. Adrenals: No mass. Biliary: No bile duct dilation. No gallbladder wall thickening. Kidneys: Symmetric nephrograms bilaterally without hydronephrosis. 1.7 cm above water attenuation lesion posterior interpolar left kidney (image 39). Vasculature: The celiac axis and SMA are patent. The portal vein and branches, splenic vein, SMV, and hepatic veins are patent. Moderate atherosclerotic calcifications of the abdominal aorta without aneurysm. GI tract: Approximately 5 cm rectal mass in the mid rectum extending through the rectal wall. Large amount of stool within the colon without colonic dilation. Lymph nodes: Multiple subcentimeter suspicious appearing mesorectal lymph nodes. 2.5 x 2.0 cm superior rectal lymph node mass (axial image 101). 1.2 cm superior rectal node (image 96). Mesentery/Peritoneum: No ascites, fluid collection, or mass. Pelvis: No mass or fluid collection. Urinary bladder is unremarkable. Bones/Soft tissues: No aggressive osseous lesions. Lower thorax: Dedicated CT imaging of the chest was performed concurrently and is dictated separately. Diagnostic Radiologist (topogram) images: Unremarkable. DIVISION OF RADIOLOGY Provider, Fariha [facility] - 10/27/2024 * * *Final Report* * * DATE OF EXAM: Oct 27 2024 9:01AM [facility] 0530 - CT ABD/PEL W IVCON / PROCEDURE REASON: Rectal mass * * * * Physician Interpretation * * * * RESULT: EXAMINATION: CT ABDOMEN AND PELVIS WITH IV CONTRAST PATIENT/TECHNOLOGIST PROVIDED HISTORY: rectal cancer CLINICAL INFORMATION ( PROVIDED BY ORDERING CLINICIAN) : Rectal mass TECHNIQUE: CT of the abdomen and pelvis was performed using standard technique, scanning from just above the dome of the diaphragm to the pubic symphysis. . Contrast: IV: 100 ml of Omnipaque 350 Oral: 500 ml of Omni 240 10-25ml diluted with water CT Radiation dose: Integrated Dose-length product (DLP) for this visit = 405 mGy*cm. CT Dose Reduction Employed: Automated exposure control (AEC) COMPARISON: None. Abdomen / Pelvis: Liver: 4 mm low-attenuation lesion in segment 8 (image 20) too small to characterize. Additional 2 mm low-attenuation lesion in segment 4A (axial image 18). Spleen: No focal splenic lesion. Pancreas: No focal pancreatic lesions. Adrenals: No mass. Biliary: No bile duct dilation. No gallbladder wall thickening. Kidneys: Symmetric nephrograms bilaterally without hydronephrosis. 1.7 cm above water attenuation lesion posterior interpolar left kidney (image 39). Vasculature: The celiac axis and SMA are patent. The portal vein and branches, splenic vein, SMV, and hepatic veins are patent. Moderate atherosclerotic calcifications of the abdominal aorta without aneurysm. GI tract: Approximately 5 cm rectal mass in the mid rectum extending through the rectal wall. Large amount of stool within the colon without colonic dilation. Lymph nodes: Multiple subcentimeter suspicious appearing mesorectal lymph nodes. 2.5 x 2.0 cm superior rectal lymph node mass (axial image 101). 1.2 cm superior rectal node (image 96). Mesentery/Peritoneum: No ascites, fluid collection, or mass. Pelvis: No mass or fluid collection. Urinary bladder is unremarkable. Bones/Soft tissues: No aggressive osseous lesions. Lower thorax: Dedicated CT imaging of the chest was performed concurrently and is dictated separately. Diagnostic Radiologist (topogram) images: Unremarkable. IMPRESSION IMPRESSION: 5 cm rectal mass with metastatic mesorectal and superior rectal lymphadenopathy. Indeterminate subcentimeter low-attenuation lesions in the liver. Attention on follow-up is recommended. 1.7 cm above water attenuation lesion in the left kidney. Consider ultrasound for further assessment versus attention on follow-up. Transcribe Date/Time: Oct 27 2024 11:04A Dictated by: WILLA GILLESPIE MD This examination was interpreted and the report reviewed and electronically signed by: WILLA GILLESPIE MD on Oct 27 2024 11:14AM EST Thank you for allowing us to participate in the care of your patient. Should there be any questions regarding this interpretation, please call [phone]. If you are unable to reach us at the number above, please feel free to contact [facility] at [phone]. [facility] CT Abdomen and Pelvis W cont rast IVOrdered By: [facility] Provider on 10-27-[address] [facility] [address] CHEST W IVCONon CT CHEST W IVCON * * *Final Report* * * DATE OF EXAM: Oct 27 2024 9:01AM [facility] 0539 - CT CHEST W IVCON / PROCEDURE REASON: Rectal mass * * * * Physician Interpretation * * * * RESULT: EXAMINATION: CHEST CT WITH CONTRAST CLINICAL HISTORY: Rectal mass Technique: Spiral CT acquisition of the chest from the thoracic inlet to the upper abdomen following IV contrast. MQ: CTCWR_5 Contrast: 100 mL Omnipaque [address] Dose-Length Product: 405 mGy*cm CT Dose Reduction Employed: Automated exposure control (AEC) Comparison: No available comparisons. RESULT: Lines, tubes, and devices: None. Lung parenchyma and airways: Trachea and central airways are patent. Biapical pleuroparenchymal scarring. Mild centrilobular and paraseptal emphysema. Scattered calcified granulomas. 2 mm nodule left upper lobe (image 71). 4 mm nodule left lower lobe (image 144) Pleural space: No pleural effusion or pneumothorax. Lower neck, lymph nodes, and mediastinum: No axillary, supraclavicular, mediastinal or hilar lymphadenopathy by CT size criteria. Heart, pericardium, and thoracic vessels: The heart is normal in size. No pericardial effusion. The thoracic aorta and main pulmonary artery are normal in caliber. Atherosclerotic calcifications of the thoracic aorta and coronary arteries. Bones/Soft Tissues: No aggressive osseous lesions. Upper abdomen: Dedicated CT imaging of the abdomen and pelvis was performed concurrently and is dictated separately. Diagnostic Radiologist (topogram) images: Unremarkable. IMPRESSION: Few scattered pulmonary nodules measuring up to 4 mm. Continued follow-up is recommended. Transcribe Date/Time: Oct 27 2024 10:56A Dictated by: WILLA GILLESPIE MD This examination was interpreted and the report reviewed and electronically signed by: WILLA GILLESPIE MD on Oct 27 2024 11:03AM EST Thank you for allowing us to participate in the care of your patient. Should there be any questions regarding this interpretation, please call [phone]. If you are unable to reach us at the number above, please feel free to contact [facility] at [phone]. [id number] Normal [facility] CT Chest W contrast Lila IMPRESSION: Few scattered pulmonary nodules measuring up to 4 mm. Continued follow-up is recommended. Transcribe Date/Time: Oct 27 2024 10:56A Dictated by: WILLA GILLESPIE MD This examination was interpreted and the report reviewed and electronically signed by: WILLA GILLESPIE MD on Oct 27 2024 11:03AM EST Thank you for allowing us to participate in the care of your patient. Should there be any questions regarding this interpretation, please call [phone]. If you are unable to reach us at the number above, please feel free to contact [facility] at [phone]. DIVISION OF RADIOLOGY * * *Final Report* * * DATE OF EXAM: Oct 27 2024 9:01AM [facility] 0539 - CT CHEST W IVCON / PROCEDURE REASON: Rectal mass * * * * Physician Interpretation * * * * RESULT: EXAMINATION: CHEST CT WITH CONTRAST CLINICAL HISTORY: Rectal mass Technique: Spiral CT acquisition of the chest from the thoracic inlet to the upper abdomen following IV contrast. MQ: CTCWR_5 Contrast: 100 mL Omnipaque [address] Dose-Length Product: 405 mGy*cm CT Dose Reduction Employed: Automated exposure control (AEC) Comparison: No available comparisons. RESULT: Lines, tubes, and devices: None. Lung parenchyma and airways: Trachea and central airways are patent. Biapical pleuroparenchymal scarring. Mild centrilobular and paraseptal emphysema. Scattered calcified granulomas. 2 mm nodule left upper lobe (image 71). 4 mm nodule left lower lobe (image 144) Pleural space: No pleural effusion or pneumothorax. Lower neck, lymph nodes, and mediastinum: No axillary, supraclavicular, mediastinal or hilar lymphadenopathy by CT size criteria. Heart, pericardium, and thoracic vessels: The heart is normal in size. No pericardial effusion. The thoracic aorta and main pulmonary artery are normal in caliber. Atherosclerotic calcifications of the thoracic aorta and coronary arteries. Bones/Soft Tissues: No aggressive osseous lesions. Upper abdomen: Dedicated CT imaging of the abdomen and pelvis was performed concurrently and is dictated separately. Diagnostic Radiologist (topogram) images: Unremarkable. DIVISION OF RADIOLOGY Provider, [facility] - 10/27/2024 * * *Final Report* * * DATE OF EXAM: Oct 27 2024 9:01AM [facility] 0539 - CT CHEST W IVCON / PROCEDURE REASON: Rectal mass * * * * Physician Interpretation * * * * RESULT: EXAMINATION: CHEST CT WITH CONTRAST CLINICAL HISTORY: Rectal mass Technique: Spiral CT acquisition of the chest from the thoracic inlet to the upper abdomen following IV contrast. MQ: CTCWR_5 Contrast: 100 mL Omnipaque [address] Dose-Length Product: 405 mGy*cm CT Dose Reduction Employed: Automated exposure control (AEC) Comparison: No available comparisons. RESULT: Lines, tubes, and devices: None. Lung parenchyma and airways: Trachea and central airways are patent. Biapical pleuroparenchymal scarring. Mild centrilobular and paraseptal emphysema. Scattered calcified granulomas. 2 mm nodule left upper lobe (image 71). 4 mm nodule left lower lobe (image 144) Pleural space: No pleural effusion or pneumothorax. Lower neck, lymph nodes, and mediastinum: No axillary, supraclavicular, mediastinal or hilar lymphadenopathy by CT size criteria. Heart, pericardium, and thoracic vessels: The heart is normal in size. No pericardial effusion. The thoracic aorta and main pulmonary artery are normal in caliber. Atherosclerotic calcifications of the thoracic aorta and coronary arteries. Bones/Soft Tissues: No aggressive osseous lesions. Upper abdomen: Dedicated CT imaging of the abdomen and pelvis was performed concurrently and is dictated separately. Diagnostic Radiologist (topogram) images: Unremarkable. IMPRESSION IMPRESSION: Few scattered pulmonary nodules measuring up to 4 mm. Continued follow-up is recommended. Transcribe Date/Time: Oct 27 2024 10:56A Dictated by: WILLA GILLESPIE MD This examination was interpreted and the report reviewed and electronically signed by: WILLA GILLESPIE MD on Oct 27 2024 11:03AM EST Thank you for allowing us to participate in the care of your patient. Should there be any questions regarding this interpretation, please call [phone]. If you are unable to reach us at the number above, please feel free to contact [facility] at [phone]. [facility] No Panel Informationon 10-27 Radiology Study observation (narrative) [facility] CNOVon 10-26-2024 CNOV Office Visit (RADTSA ) BENTLEY GONZALEZ ([id number]) 1960 M Date Time Provider Department 10/26/24 11:00 AM Sherrie MONSON During your visit today, we recorded the following information about you: Sherrie Monson MD 10/26/2024 12:34 PM Signed sim Referring Provider: Sherrie MONSON [[id number]] Allergies As of Date: 10/26/2024 (No Known Allergies) Date Reviewed: 10/18/2024 Reviewed by: Risa Govea MA - Fully Assessed Primary Visit Diagnosis:Rectal cancer (HCC) [C20] Prescriptions as of 10/26/2024 - iv contrast (will be provided with radiology test) MRI Rectum Inject, intravenously, once for 1 dose. No IV access, insert saline lock prior to the beginning of sedation, infusion, injection of imaging exam. Discontinue saline lock post exam. If Pt has a central line or IVAD, may access for administration according to line specific nursing protocol. Once exam is complete flush line and de-access according to line specific nursing protocol in the MR contrast administration guidelines link. - enteric contrast (will be provided with radiology test) MRI RECTUM WO/W. Administer, As Directed One Time Only, via Oral, Rectal, both Oral and Rectal, Enteric Tube, Stoma or Indwelling Catheter,? Enteric Contrast as designated per enteric contrast guidelines - iv contrast (will be provided with radiology test) CT Chest ABD/PEL-Inject, intravenously, once for 1 dose.No IV access, insert saline lock prior to the beginning of sedation, infusion, injection of imaging exam. Discontinue saline lock post exam. If Pt. has a central line or IVAD, may access for administration according to line specific nursing protocol. Once exam is complete flush line and de-access according to line specific nursing protocol in the CT contrast administration guidelines link. - enteric contrast (will be provided with radiology test) For CT CHESTABD/PEL W IVCON Routine order Administer, As Directed One Time Only, via Oral, Rectal, both Oral and Rectal, Enteric Tube, Stoma or Indwelling Catheter, Enteric Contrast as designated per enteric contrast guidelines Problem List As Of Date: 10/26/2024 (None) Encounter Status:Closed by Sherrie MONSON on 10/26/24 [facility] CNOV Office Visit (RADTSA ) BENTLEY GONZALEZ ([id number]) 1960 M Date Time Provider Department 10/26/24 10:30 AM Sherrie MONSON RADTSA During your visit today, we recorded the following information about you: Sherrie Monson MD 10/26/2024 12:33 PM Signed [facility] [place] Referring Provider: Sherrie MONSON [[id number]] Allergies As of Date: 10/26/2024 (No Known Allergies) Date Reviewed: 10/18/2024 Reviewed by: Risa Govea MA - Fully Assessed Reason for Visit: Simulation Request Form [4062] Primary Visit Diagnosis:Rectal cancer (HCC) [C20] Order(s):RADIATION TREATMENT PER RADIATION ONCOLOGIST PLAN [[id number]] Order #: [id number]: 1 [facility] PLANNING RADIATION ONCOLOGY [[id number]] Order #: [id number] PT ED CANCER [[id number]] Order #: [id number]: 1 Prescriptions as of 10/26/2024 - iv contrast (will be provided with radiology test) MRI Rectum Inject, intravenously, once for 1 dose. No IV access, insert saline lock prior to the beginning of sedation, infusion, injection of imaging exam. Discontinue saline lock post exam. If Pt has a central line or IVAD, may access for administration according to line specific nursing protocol. Once exam is complete flush line and de-access according to line specific nursing protocol in the MR contrast administration guidelines link. - enteric contrast (will be provided with radiology test) MRI RECTUM WO/W. Administer, As Directed One Time Only, via Oral, Rectal, both Oral and Rectal, Enteric Tube, Stoma or Indwelling Catheter,? Enteric Contrast as designated per enteric contrast guidelines - iv contrast (will be provided with radiology test) CT Chest ABD/PEL-Inject, intravenously, once for 1 dose.No IV access, insert saline lock prior to the beginning of sedation, infusion, injection of imaging exam. Discontinue saline lock post exam. If Pt. has a central line or IVAD, may access for administration according to line specific nursing protocol. Once exam is complete flush line and de-access according to line specific nursing protocol in the CT contrast administration guidelines link. - enteric contrast (will be provided with radiology test) For CT CHESTABD/PEL W IVCON Routine order Administer, As Directed One Time Only, via Oral, Rectal, both Oral and Rectal, Enteric Tube, Stoma or Indwelling Catheter, Enteric Contrast as designated per enteric contrast guidelines Problem List As Of Date: 10/26/2024 (None) Encounter Status:Closed by Sherrie MONSON on 10/26/[address] [facility] MISMATCH REPAIR PROTEINS BY IHCon 10-22-2024 AP BIOMARKER DISCLAIMER [facility] [facility] Comment on above: Order Comment: Speci men Type: FORMALIN-FIXED PARAFFIN-EMBEDDED TISSUE SPECIMENOrdering Facility: AP Outside Review Address: , , Result Comment: Esequiel Bello Test (LDT) Disclaimer: Performance characteristics of immunohistochemical, immunofluorescent and chromogenic in-situ hybridization tests have been determined by the performing laboratory within [facility]???s Willem Mahmood Pathology and Laboratory Medicine Department ([facility], [facility], [facility], [facility], [facility], [facility], or [facility]) in a manner consistent with CLIA requirements. One or more of these tests have not been cleared or approved by the FDA. [facility] is regulated under CLIA as qualified to perform high-complexity testing. These tests are used for clinical purposes. They should not be regarded as investigational or for research. Positive and negative controls stain appropriately. Performed By: #### L [id number] ####[facility] LABCLIA [id number] [address] OF [place] BLOCK ID A1 Normal [facility] Comment on above: Order Comment: Speci men Type: FORMALIN-FIXED PARAFFIN-EMBEDDED TISSUE SPECIMENOrdering Facility: AP Outside Review Address: , , Performed By: #### L [id number] ####[facility] [id number] [address] STATES OF THE [facility] BIOMARKER INTERPRETATION COMMENT AND REFERENCE RANGE Normal [facility] Comment on above: Order Comment: Speci men Type: FORMALIN-FIXED PARAFFIN-EMBEDDED TISSUE SPECIMENOrdering Facility: AP Outside Review Address: , , Result Comment: Inta ct expression of MMR (mismatch repair) proteins by immunohistochemistry is highly correlated with a microsatellite stable result by MSI (microsatellite instability) PCR analysis, and the results from these tests are viewed as clinically equivalent by the FDA. This result excludes at least 90-95% of Skinner syndrome. These tests are an imperfect screen because some mutations may not produce loss of immunohistochemical expression. MSI molecular testing can be performed upon request in cases with a high clinical suspicion and appropriate family history. In a phase 2 study of patients with metastatic carcinoma, Vicenta et al. (NEJ 2015;372:2509-20) reported that the clinical benefit of pembrolizumab, an anti-programmed 1 (PD-1) immune checkpoint inhibitor, was predicted by the tumor's mismatch repair status; mismatch repair deficient (dMMR) tumors are more responsive to PD-1 blockade than mismatch repair proficient tumors. Pembrolizumab is FDA-approved for treating adult and pediatric patients with unresectable or metastatic solid tumors that display microsatellite instability-high (MSI-H) by PCR assay or dMMR by immunohistochemistry (IHC). The FDA does not distinguish between PCR and IHC-based assays, as these are considered equivalent and complimentary tests. As clinically indicated, and in the appropriate setting of genetic counseling with informed patient consent, further genetic testing may be helpful. For more information or questions about this result, please call the [facility] [employer] [facility] at [phone]. Performed By: #### L [id number] ####[facility] LABIA [id number] [address] BIOMARKER METHOD Immunohistochemistry was performed on formalin fixed paraffin-embedded tissue using the following clones: MLH1 (clone M1 mouse monoclonal); MSH2 ([id number] mouse monoclonal); and MSH6 (SP93 rabbit monoclonal); followed by ultrasensitive bright field detection (Optiview with amplification) from [[employer], [place] PMS2 (EP51 Rabbit monoclonal, [employer]); followed by ultrasensitive bright field detection ( Farrar [employer] Polymer DAB Detection) from [[employer], [place], [place]]. Normal [facility] Comment on above: Order Comment: Speci men Type: FORMALIN-FIXED PARAFFIN-EMBEDDED TISSUE SPECIMENOrdering Facility: AP Outside Review Address: , , Performed By: #### L [id number] ####[facility] LABIA [id number] [address] CASE NUMBER MMR [id number] Normal [facility] Comment on above: Order Comment: Speci men Type: FORMALIN-FIXED PARAFFIN-EMBEDDED TISSUE SPECIMENOrdering Facility: AP Outside Review Address: , , Performed By: #### L [id number] ####[facility] LABIA [id number] [address] FINAL PERFORMING LAB Normal [facility] Comment on above: Order Comment: Speci men Type: FORMALIN-FIXED PARAFFIN-EMBEDDED TISSUE SPECIMENOrdering Facility: AP Outside Review Address: , , Result Comment: Diag nostic interpretation performed at: [facility], [address] [place] [id number] CLIA# [id number] Manager Change: Enoch Carnes MD Electronically signed out by: Lucia Clemons MD Performed By: #### L [id number] ####[facility] LABCLIA [id number] [place] [address] [place] Result Comment: Diag nostic interpretation performed at: [facility], [address] [place] [address] CLIA# [id number] Manager Change: Enoch Carnes MD Performed By: #### L [id number] ####[facility] LABCLIA [id number] [place] [address] [place] FIXATIVE Formalin, 10% Neutra l Buffered Normal [facility] Comment on above: Order Comment: Speci men Type: FORMALIN-FIXED PARAFFIN-EMBEDDED TISSUE SPECIMENOrdering Facility: AP Outside Review Address: , , Performed By: #### L [id number] ####[facility] LABCLIA [id number] [address] STATES OF [place] MLH1 IMMUNOHISTOCHEMICAL RESULTS Normal/Intact Nuclear Expression Normal [facility] Comment on above: Order Comment: Speci men Type: FORMALIN-FIXED PARAFFIN-EMBEDDED TISSUE SPECIMENOrdering Facility: AP Outside Review Address: , , Performed By: #### L [id number] ####[facility] LABCLIA [id number] [address] STATES OF [place] MLH1 PROMOTER METHYLATION ASSAY No Normal [facility] Comment on above: Order Comment: Speci men Type: FORMALIN-FIXED PARAFFIN-EMBEDDED TISSUE SPECIMENOrdering Facility: AP Outside Review Address: , , Performed By: #### L [id number] ####[facility] LABCLIA [id number] [address] STATES [place] MMR INTERPRETATION Proficient (Microsatellite Stable) Normal [facility] Comment on above: Order Comment: Speci men Type: FORMALIN-FIXED PARAFFIN-EMBEDDED TISSUE SPECIMENOrdering Facility: AP Outside Review Address: , , Performed By: #### L [id number] ####[facility] LABCLIA [id number] [address] OF [facility] MSH2 IMMUNOHISTOCHEMICAL RESULTS Normal/Intact Nuclear Expression Normal [facility] Comment on above: Order Comment: Speci men Type: FORMALIN-FIXED PARAFFIN-EMBEDDED TISSUE SPECIMENOrdering Facility: AP Outside Review Address: , , Performed By: #### L [id number] ####[facility] LABCLIA [id number] [address] MSH6 IMMUNOHISTOCHEMICAL RESULTS Normal/Intact Nuclear Expression Normal [facility] Comment on above: Order Comment: Speci men Type: FORMALIN-FIXED PARAFFIN-EMBEDDED TISSUE SPECIMENOrdering Facility: AP Outside Review Address: , , Performed By: #### L [id number] ####[facility] LABIA [id number] [address] OF [facility] PMS2 IMMUNOHISTOCHEMICAL RESULTS Normal/Intact Nuclear Expression Normal [facility] Comment on above: Order Comment: Speci men Type: FORMALIN-FIXED PARAFFIN-EMBEDDED TISSUE SPECIMENOrdering Facility: AP Outside Review Address: , , Performed By: #### L [id number] ####[facility] LABIA [id number] [address] OF [place] TUMOR TYPE MMR Other (See Comment) Normal [facility] Comment on above: Order Comment: Speci men Type: FORMALIN-FIXED PARAFFIN-EMBEDDED TISSUE SPECIMENOrdering Facility: AP Outside Review Address: , , Result Comment: Rect um: At least high-grade dysplasia Performed By: #### L [id number] ####[facility] LABIA [id number] [address] OF [facility] OUTSIDE SURG PATH SLIDE REVI EWon 10-22-2024 CASE REPORT Normal [facility] Comment on above: Order Comment: Speci men Type: FORMALIN-FIXED PARAFFIN-EMBEDDED TISSUE SPECIMENOrdering Facility: AP Outside Review Address: , , Result Comment: Surg ical Pathology Report Case: [id number] Authorizing Provider: Raz Tucker MD Collected: 10/22/2024 02:47 PM Ordering Location: [facility] Received: 10/22/2024 02:46 PM [facility] Pathologist: Karen Parker MD Specimen: Slide(s), 3 SLIDES [id number] Performed By: #### L [id number] ####[facility] LABCLIA [id number] [address] DIAGNOSIS COMMENT A submitted pankerat in immunostain highlights nonneoplastic epithelium and invasive tumor Normal [facility] Comment on above: Order Comment: Speci men Type: FORMALIN-FIXED PARAFFIN-EMBEDDED TISSUE SPECIMENOrdering Facility: AP Outside Review Address: , , Performed By: #### L [id number] ####[facility] LABIA [id number] [address] FINAL DIAGNOSIS Normal [facility] Comment on above: Order Comment: Speci men Type: FORMALIN-FIXED PARAFFIN-EMBEDDED TISSUE SPECIMENOrdering Facility: AP Outside Review Address: , , Result Comment: Outs junior , 09/28/2024 Colon, rectum, mass, biopsy -Invasive moderately differentiated adenocarcinoma Performed By: #### L [id number] ####[facility] LABIA [id number] [address] TARGETED ONCOLOGY PANEL NEXT GENERATION SEQUENCING OTHERon 10-22-2024 TARGETED ONCOLOGY PANEL NEXT GENERATION SEQUENCING OTHER Normal [facility] Comment on above: Order Comment: Speci men Type: FORMALIN-FIXED PARAFFIN-EMBEDDED TISSUE SPECIMENOrdering Facility: AP Outside Review Address: , , Result Comment: [facility] Targeted Oncology Panel Laboratory Accession Number: [id number] Case #: [id number] Block #: A1 ([id number]) Sample Type: FFPET % Tumor: 30 CASE SUMMARY: No clinically significant single nucleotide variants, insertions, deletions, copy number gains, RNA fusions or aberrant transcripts were detected in this specimen. Clinical and histopathological correlation is recommended. *Unless otherwise stated, all assay hotspot regions have been tested (see EVALUATED GENES below) and only positive genes are reported. RESULTS: Single Nucleotide Variants/Indels: None detected Copy Number Gains: None detected RNA Fusions and Aberrant Transcripts: None detected VARIANT INTERPRETATIONS: None Detected Variants of uncertain significance detected: None detected Regions with coverage <100x: None METHODOLOGY: Extracted nucleic acid from the specimen, both DNA and RNA, were subjected to separate targeted amplification reactions, using AmpliSeq custom primers designed by [email or web address] ([employer], [place], [place]). Hotspots and selected fusions in gene regions listed below were sequenced using Illumina ([place], [place]) 2x150 paired-end cycle chemistry. A customized bioinformatics analytical platform was used for read alignment (Genome Build GRCh37/hg19), variant identification and annotation. Single nucleotide variants (SNVs), insertion, deletion (indels) and copy number gain variants are detected by DNA sequencing. Select fusions and aberrant transcripts (EGFR vIII and MET exon 14 skipping transcripts) are detected by RNA sequencing. Variants are classified according to established guidelines (1). Reported results include variants of strong or potential clinical significance and variants of unclear clinical significance. Benign population polymorphisms are not included in the report. If relevant, standard of care therapies for various solid tumor types/indications (FDA-approved biomarker or standard biomarker recommended by a professional society) are provided in the variant interpretation section, as well as markers resistant to FDA-approved drugs. This information is not to be considered a recommendation for therapy. Based on validation, the DNA testing delivered an average of >500x coverage and >99% of targeted regions showed over 100x coverage. A minimum coverage depth of 100 reads is required across the entire region of interest; a list of low coverage areas is included in the report as applicable. The test demonstrated 100% sensitivity and 100% specificity in identifying SNVs, indels and copy number gains. The lower limit of detection of this assay is approximately 5% variant allele fraction (VAF) for SNV/indels and 6 copies or greater for copy number gains. Variants below these thresholds may be reported at the discretion of the molecular pathology professional staff if the technical quality of the sequencing is sufficient at that location and the call is unequivocal. Based on validation, the RNA fusion testing averaged >150,000 total reads. The test demonstrated 93% sensitivity and 100% specificity in gene fusion identification compared to NGS sequencing, and 69% sensitivity and 100% specificity compared to FISH of fusion drivers (unknown fusion partner). Overall sensitivity is 78% and accuracy is 99%. The lower limit of detection is approximately 1% of total sequencing reads. LIMITATIONS: Sequence changes outside the analyzed alterations hotspots, including intronic and noncoding regions, will not be identified by this test. Insertions and deletions larger than 20 and 40 bp, respectively, may not be identified by this test. Negative results from specimens for which the percentage of tumor cells is 10% or less should be interpreted with caution. Although variant allele fraction is provided as a percentage, this is not a quantitative test. RNA fusions involving alternative partners or breakpoints outside of the targeted regions cannot be detected by this test. This test does not distinguish between somatic and inherited variants. Tumor heterogeneity, tumor burden, specimen degradation or other limitations of the technology may affect the sensitivity and limit of detection, either broadly across the regions of interest or for specific regions and may lead to false negative results. For tumor tissue, fixation in neutral buffered formalin or alcohol is preferred. Decalcification agents and fixation agents containing heavy metals (e.g., B5) or harsh acid or base components (e.g., Bouin's solution) can inhibit PCR reactions. Peripheral blood and bone marrow aspirate specimens should be collected in EDTA. Hotspots, copy number variants and selected fusions evaluated by this assay can aid in the diagnostic and therapeutic assessment of a variety of tumor types, including non-small cell lung cancer, melanoma, (more content not included)... Performed By: #### T OPTO ####[facility] [id number] [address] [place] CBC W Auto Differential pane l (Bld)on 10-18-2024 Basophils (Bld) [#/Vol] 0.03 10*3/uL [facility] Basophils/100 WBC (Bld) 0.4 % [facility] Differential cell count method Nom (Bld) Auto [facility] Eosinophils (Bld) [#/Vol] 0.10 10*3/uL [facility] Eosinophils/100 WBC (Bld) 1.2 % [facility] Erythrocyte distribution width (RBC) [Ratio] 13.2 % 11.5 - 15.0 % [facility] Hematocrit (Bld) [Volume fraction] 45.2 % 39.0 - 51.0 % [facility] Hemoglobin (Bld) [Mass/Vol] 15.0 g/dL 13.0 - 17.0 g/dL [facility] Immature granulocytes (Bld) [#/Vol] 0.03 10*3/uL [facility] Immature granulocytes/100 WBC (Bld) 0.4 % [facility] Interpretation and review of laboratory results Abnormal [facility] Lymphocytes (Bld) [#/Vol] 1.62 10*3/uL [facility] Lymphocytes/100 WBC (Bld) 19.7 % [facility] MCH (RBC) [Entitic mass] 31.1 pg 26.0 - 34.0 pg [facility] MCHC (RBC) [Mass/Vol] 33.2 g/dL 30.5 - 36.0 g/dL [facility] MCV (RBC) [Entitic vol] 93.8 fL 80.0 - 100.0 fL [facility] Monocytes (Bld) [#/Vol] 0.57 10*3/uL [facility] Monocytes/100 WBC (Bld) 6.9 % [facility] Neutrophils (Bld) [#/Vol] 5.89 10*3/uL [facility] Neutrophils/100 WBC (Bld) 71.4 % [facility] Nucleated RBC (Bld) [#/Vol] [facility] Nucleated RBC/100 WBC (Bld) [Ratio] 0.0 % /100 WBC [facility] Platelet mean volume (Bld) [Entitic vol] 8.9 fL Low 9.0 - 12.7 fL [facility] Platelets (Bld) [#/Vol] 274 10*3/uL [facility] RBC (Bld) [#/Vol] 4.82 10*6/uL 4.20 - 6.0 0 m/uL [facility] WBC (Bld) [#/Vol] 8.24 10*3/uL [facility] Basophils (Bld) [#/Vol] 0.03 10*3/uL Normal <0.[address] [facility] Comment on above: Order Comment: Speci men Type: BLOOD SPECIMENOrdering Facility: [facility] Address: [address] [place] [address] Performed By: #### 5 7021-8 ####[facility] LABCLIA [id number] [place] [address] Basophils/100 WBC (Bld) 0.4 % Normal [facility] Comment on above: Order Comment: Speci men Type: BLOOD SPECIMENOrdering Facility: [facility] Address: [address] [place] [address] Performed By: #### 5 7021-8 ####[facility] LABCLIA [id number] [place] [address] Differential cell count method Nom (Bld) Auto Normal [facility] Comment on above: Order Comment: Speci men Type: BLOOD SPECIMENOrdering Facility: [facility] Address: [address] [place] [address] Performed By: #### 5 7021-8 ####[facility] LABCLIA [id number] [place] [address] Eosinophils (Bld) [#/Vol] 0.10 10*3/uL Normal <0.[address] [facility] Comment on above: Order Comment: Speci men Type: BLOOD SPECIMENOrdering Facility: [facility] Address: [address] [place] [address] Performed By: #### 5 7021-8 ####[facility] LABCLIA [id number] [place] [address] Eosinophils/100 WBC (Bld) 1.2 % Normal [facility] Comment on above: Order Comment: Speci men Type: BLOOD SPECIMENOrdering Facility: [facility] Address: [address] [place] [address] Performed By: #### 5 7021-8 ####[facility] LABCLIA [id number] [place] [address] Erythrocyte distribution width (RBC) [Ratio] 13.2 % Normal 11.5-15.[address] [facility] Comment on above: Order Comment: Speci men Type: BLOOD SPECIMENOrdering Facility: [facility] Address: [address] [place] [address] Performed By: #### 5 7021-8 ####[facility] LABCLIA [id number] [place] [address] Hematocrit (Bld) [Volume fraction] 45.2 % Normal 39.0-51.[address] [facility] Comment on above: Order Comment: Speci men Type: BLOOD SPECIMENOrdering Facility: [facility] Address: [address] [place] [address] Performed By: #### 5 7021-8 ####[facility] LABCLIA [id number] [place] [address] Hemoglobin (Bld) [Mass/Vol] 15.0 g/dL Normal 13.0-17.[address] [facility] Comment on above: Order Comment: Speci men Type: BLOOD SPECIMENOrdering Facility: [facility] Address: [address] [place] [address] Performed By: #### 5 7021-8 ####[facility] LABCLIA [id number] [place] [address] Immature granulocytes (Bld) [#/Vol] 0.03 10*3/uL Normal <0.[address] [facility] Comment on above: Order Comment: Speci men Type: BLOOD SPECIMENOrdering Facility: [facility] Address: [address] [place] [address] Performed By: #### 5 7021-8 ####[facility] LABCLIA [id number] [place] [address] Immature granulocytes/100 WBC (Bld) 0.4 % Normal [facility] Comment on above: Order Comment: Speci men Type: BLOOD SPECIMENOrdering Facility: [facility] Address: [address] [place] [address] Performed By: #### 5 7021-8 ####[facility] LABCLIA [id number] [place] [address] Lymphocytes (Bld) [#/Vol] 1.62 10*3/uL Normal 1.00-4.[address] [facility] Comment on above: Order Comment: Speci men Type: BLOOD SPECIMENOrdering Facility: [facility] Address: [address] [place] [address] Performed By: #### 5 7021-8 ####[facility] LABCLIA [id number] [place] [address] Lymphocytes/100 WBC (Bld) 19.7 % Normal [facility] Comment on above: Order Comment: Speci men Type: BLOOD SPECIMENOrdering Facility: [facility] Address: [address] [place] [address] Performed By: #### 5 7021-8 ####[facility] LABCLIA [id number] [place] [address] MCH (RBC) [Entitic mass] 31.1 pg Normal 26.0-34.[address] [facility] Comment on above: Order Comment: Speci men Type: BLOOD SPECIMENOrdering Facility: [facility] Address: [address] [place] [address] Performed By: #### 5 7021-8 ####[facility] LABCLIA [id number] [place] [address] MCHC (RBC) [Mass/Vol] 33.2 g/dL Normal 30.5-36.0 [facility] Comment on above: Order Comment: Speci men Type: BLOOD SPECIMENOrdering Facility: [facility] Address: [address] [place] [address] Performed By: #### 5 7021-8 ####[facility] LABCLIA [id number] [place] [address] MCV (RBC) [Entitic vol] 93.8 fL Normal 80.0-100.[address] [facility] Comment on above: Order Comment: Speci men Type: BLOOD SPECIMENOrdering Facility: [facility] Address: [address] [place] [address] Performed By: #### 5 7021-8 ####[facility] LABCLIA [id number] [place] [address] Monocytes (Bld) [#/Vol] 0.57 10*3/uL Normal <0.[address] [facility] Comment on above: Order Comment: Speci men Type: BLOOD SPECIMENOrdering Facility: [facility] Address: [address] [place] [address] Performed By: #### 5 7021-8 ####[facility] LABCLIA [id number] [place] [address] Monocytes/100 WBC (Bld) 6.9 % Normal [facility] Comment on above: Order Comment: Speci men Type: BLOOD SPECIMENOrdering Facility: [facility] Address: [address] [place] [address] Performed By: #### 5 7021-8 ####[facility] LABCLIA [id number] [place] [address] Neutrophils (Bld) [#/Vol] 5.89 10*3/uL Normal 1.45-7.[address] [facility] Comment on above: Order Comment: Speci men Type: BLOOD SPECIMENOrdering Facility: [facility] Address: [address] [place] [address] Performed By: #### 5 7021-8 ####[facility] LABCLIA [id number] [place] [address] Neutrophils/100 WBC (Bld) 71.4 % Normal [facility] Comment on above: Order Comment: Speci men Type: BLOOD SPECIMENOrdering Facility: [facility] Address: [address] [place] [address] Performed By: #### 5 7021-8 ####[facility] LABCLIA [id number] [place] [address] Nucleated RBC (Bld) [#/Vol] 10*3/uL Normal <0.[address] [facility] Comment on above: Order Comment: Speci men Type: BLOOD SPECIMENOrdering Facility: [facility] Address: [address] [place] [address] Performed By: #### 5 7021-8 ####[facility] LABCLIA [id number] [place] [address] Nucleated RBC/100 WBC (Bld) [Ratio] 0.0 /100 WBC Normal [facility] Comment on above: Order Comment: Speci men Type: BLOOD SPECIMENOrdering Facility: [facility] Address: [address] [place] [address] Performed By: #### 5 7021-8 ####[facility] LABCLIA [id number] [place] [address] Platelet mean volume (Bld) [Entitic vol] 8.9 fL Low 9.0-12.[address] [facility] Comment on above: Order Comment: Speci men Type: BLOOD SPECIMENOrdering Facility: [facility] Address: [address] [place] [address] Performed By: #### 5 7021-8 ####[facility] LABCLIA [id number] [place] [address] Platelets (Bld) [#/Vol] 274 10*3/uL Normal 150-[address] [facility] Comment on above: Order Comment: Speci men Type: BLOOD SPECIMENOrdering Facility: [facility] Address: [address] [place] [address] Performed By: #### 5 7021-8 ####[facility] LABCLIA [id number] [place] [address] RBC (Bld) [#/Vol] 4.82 10*6/uL Normal 4.20-6.00 [facility] Comment on above: Order Comment: Speci men Type: BLOOD SPECIMENOrdering Facility: [facility] Address: [address] [place] [address] Performed By: #### 5 7021-8 ####[facility] LABCLIA [id number] [place] [address] WBC (Bld) [#/Vol] 8.24 10*3/uL Normal 3.70-11.00 [facility] Comment on above: Order Comment: Speci men Type: BLOOD SPECIMENOrdering Facility: [facility] Address: [address] [place] [address] Performed By: #### 5 7021-8 ####[facility] LABCLIA [id number] [place] [address] CEA SerPl-ncon 10-18-2024 Carcinoembryonic Ag [Mass/Vol] 2.6 ng/mL Normal <=2.[address] [facility] Comment on above: Order Comment: Speci men Type: BLOOD SPECIMENOrdering Facility: [facility] Address: [address] [place] [address] Result Comment: Carc inoembryonic antigen test is used as an aid in monitoring response to treatment or recurrence in patients with established colorectal, breast, lung, prostatic, pancreatic, and ovarian carcinomas. Clinical correlation is required. The Carcinoembryonic antigen test was performed using the Edy Sallie Unicel DXI paramagnetic particle chemiluminescent immunoassay method. Results obtained with different assay methods or kits cannot be used interchangeably. Performed By: #### 2 039-6 ####[facility] LABCLIA [id number] [address] [place] [facility] CNOVon 10-18-2024 CNOV Office Visit (RADT[facility] ) BENTLEY GONZALEZ ([id number]) 1960 M Date Time Provider Department 10/18/24 10:00 AM Sherrie MONSON During your visit today, we recorded the following information about you: Temperature Pulse Respiration Blood pressure 97.8 degrees 88/minute 16/minute 130/89 Weight Height 52.2 kg 1.715 m Barbie Causey RN 10/18/2024 10:11 AM Signed Pacemaker/Defibrillator ?N Previous Cancer(s)?N Previous Radiation?N Lupus/Scleroderma?N On body monitoring device?N AYO Villarreal G Phillip, MD 10/18/2024 10:11 AM Signed Radiation Oncology - New Patient/Consult Note PATIENT NAME: Bentley Gonzalez PATIENT REQUESTING PROVIDER: Raz Tucker MD OTHER PROVIDERS: Dr. Clemente, Dr. Donohue, Dr. Sánchez DIAGNOSIS: Rectal cancer,, adenocarcinoma, locally advanced HPI: 64 year old male who presents with above diagnosis, for an opinion regarding the role of radiation therapy in the management of the patient's disease. Final recommendations will be communicated back to the requesting physician by way of the shared medical record, or letter to requesting physician via US mail. Patient presented with rectal bleeding and change in bowel habits since approximately May. He underwent recent evaluation including colonoscopy with the finding of a rectal mass follow-up on digital rectal exam endoscopy. Colonoscopy 09/24/2024: Firm circumferential rectal mass within the distal rectum, endoscopy demonstrating circumferential mass, pediatric colonoscope could not advance beyond the mass, biopsies taken. Pathology demonstrating: Moderate differentiated adenocarcinoma. Patient complains of change in bowel habits, constipation, only able to pass small stools multiple times per day. This has improved after starting MiraLAX. Rectal bleeding intermittently but nothing recently. Denies any pelvic pain. No bladder related issues. He has been seen by Dr. Tucker, and colorectal surgery. He is scheduled for further staging including CT evaluation 10/27/2023 and MRI rectal evaluation 10/29/2023. He is here today to discuss potential of radiation in the management of his newly diagnosed locally advanced rectal cancer. He denies any further bleeding of the past couple weeks. Is doing better on MiraLAX in terms of having bowel movements. Occasional cramping. No other pain. He admits about 10 pounds of weight loss. ALLERGIES No Known Allergies Current Outpatient Medications on File Prior to Visit Medication Sig iv contrast (will be provided with radiology test) MRI Rectum Inject, intravenously, once for 1 dose. No IV access, insert saline lock prior to the beginning of sedation, infusion, injection of imaging exam. Discontinue saline lock post exam. If Pt has a central line or IVAD, may access for administration according to line specific nursing protocol. Once exam is complete flush line and de-access according to line specific nursing protocol in the MR contrast administration guidelines link. enteric contrast (will be provided with radiology test) MRI RECTUM WO/W. Administer, As Directed One Time Only, via Oral, Rectal, both Oral and Rectal, Enteric Tube, Stoma or Indwelling Catheter, Enteric Contrast as designated per enteric contrast guidelines iv contrast (will be provided with radiology test) CT Chest ABD/PEL-Inject, intravenously, once for 1 dose.No IV access, insert saline lock prior to the beginning of sedation, infusion, injection of imaging exam. Discontinue saline lock post exam. If Pt. has a central line or IVAD, may access for administration according to line specific nursing protocol. Once exam is complete flush line and de-access according to line specific nursing protocol in the CT contrast administration guidelines link. enteric contrast (will be provided with radiology test) For CT CHESTABD/PEL W IVCON Routine order Administer, As Directed One Time Only, via Oral, Rectal, both Oral and Rectal, Enteric Tube, Stoma or Indwelling Catheter, Enteric Contrast as designated per enteric contrast guidelines No current facility-administered medications on file prior to visit. History reviewed. No pertinent past medical history. Prior radiation therapy, collagen vascular disease, or inflammatory bowel disease: No Any implanted or external electric devices? No PAST SURGICAL HISTORY Procedure Laterality Date TONSILLECTOMY AND ADENOIDECTOMY FAMILY HISTORY Problem Relation Age of Onset Breast Cancer Mother Lung Cancer Father Cancer Sister Social History Tobacco Use Smoking status: Every Day Current packs/day: 1.00 Average packs/day: 1 pack/day for 54.0 years (54.0 ttl pk-yrs) Types: Cigarettes Start date: 1970 Smokeless tobacco: Never Vaping Use Vaping status: Never Used Substance Use Topics Alcohol use: Yes Comment: (more content not included)... Normal [facility] CNOVSPon 10-18-2024 CNOVS Visit (SP) Office ([facility]) BENTLEY GONZALEZ ([id number]) 1960 M Date Time Provider Department 10/18/24 11:00 AM SANCHO SÁNCHEZ During your visit today, we recorded the following information about you: Temperature Pulse Respiration Blood pressure 97.8 degrees 86/minute 16/minute 133/82 Weight Height 52.2 kg 1.715 m Sancho Sánchez MD 10/18/2024 10:58 AM Signed Labs today Scans scheduled next week F/u in 2 weeks Sancho Sánchez MD 10/18/2024 11:13 AM Signed PATIENT NAME: Bentley Gonzalez CLINIC NO.: [id number] ATTENDING PHYSICIAN: Sancho Sánchez MD DATE OF SERVICE: October 18, [address] Raz Tucker [id number] [facility] [address] thank you for referring Bentley Gonzalez for an opinion regarding Rectal cancer. CHIEF COMPLAINT: Rectal cancer HPI: Bentley Gonzalez is a 64 year old year old male with no significant PMH referred to us for rectal mass. He reports months of hematochezia as well as change in bowel habits prompting him to present for endoscopic evaluation. On colonoscopy, he was found to have a rectal mass on LUIS ANTONIO and on endoscopic evaluation, pediatric scope could not be advanced past the mass. Biopsy was taken and result showed adenoca. He presents for further evaluation and management. Patient reports that his difficulty defecating included small pellet-like stools, ~10 times a day, which has improved since he started taking MiraLAX daily. He now has large volume stool but still go multiple times a day. His hematochezia is also resolved. Seen by surgeon . Scheduled for scans on 10/27/23. No family history of colon ca. Works in construction and randy. Smokes 1 pk/day for many yrs. Current Outpatient Medications Medication Sig iv contrast (will be provided with radiology test) MRI Rectum Inject, intravenously, once for 1 dose. No IV access, insert saline lock prior to the beginning of sedation, infusion, injection of imaging exam. Discontinue saline lock post exam. If Pt has a central line or IVAD, may access for administration according to line specific nursing protocol. Once exam is complete flush line and de-access according to line specific nursing protocol in the MR contrast administration guidelines link. enteric contrast (will be provided with radiology test) MRI RECTUM WO/W. Administer, As Directed One Time Only, via Oral, Rectal, both Oral and Rectal, Enteric Tube, Stoma or Indwelling Catheter, Enteric Contrast as designated per enteric contrast guidelines iv contrast (will be provided with radiology test) CT Chest ABD/PEL-Inject, intravenously, once for 1 dose.No IV access, insert saline lock prior to the beginning of sedation, infusion, injection of imaging exam. Discontinue saline lock post exam. If Pt. has a central line or IVAD, may access for administration according to line specific nursing protocol. Once exam is complete flush line and de-access according to line specific nursing protocol in the CT contrast administration guidelines link. enteric contrast (will be provided with radiology test) For CT CHESTABD/PEL W IVCON Routine order Administer, As Directed One Time Only, via Oral, Rectal, both Oral and Rectal, Enteric Tube, Stoma or Indwelling Catheter, Enteric Contrast as designated per enteric contrast guidelines No current facility-administered medications for this visit. ALLERGIES No Known Allergies No past medical history on file. No past surgical history on file. No family history on file. Social History Tobacco Use Smoking status: Every Day Types: Cigarettes Smokeless tobacco: Never REVIEW OF SYSTEMS GENERAL: No weight loss, malaise or fevers. No night sweats. HEENT: Negative for headaches, No changes in hearing or vision, no nose bleeds or other nasal problems. RESPIRATORY: Negative for cough, wheezing and shortness of breath CARDIOVASCULAR: Negative for chest pain, leg swelling and palpitations GI: Negative for abdominal discomfort, blood in stools or black stools and change in bowel habits : Negative for dysuria, frequency and incontinence MUSCULOSKELETAL: Negative for joint pain or swelling, back pain, and muscle pain. SKIN: Negative for lesions, rash, and itching. HEMATOLOGY/LYMPHOLOGY Negative for prolonged bleeding, bruising easily, and swollen nodes. NEURO: Negative for numbness or tingling of hands/feet. No weakness. PHYSICAL EXAMINATION: There were no vitals taken for this visit. There were no vitals taken for this visit. No data found for this vital: Wt General appearance:ECOG PERFORMANCE STATUS: 0- Fully active, able to carry on all pre-disease performance w/o restriction. Patient in NAD. Skin: Skin color, texture, turgor normal. No rashes or lesions. Eyes: Anicteric sclera. Pupils are equally round and reactive to light. Extraocular movements (more content not included)... Normal [facility] CNPNon 10-18-2024 CNPN Telephone ([facility]) BENTLEY GONZALEZ ([id number]) 1960 M Date Time Provider Department 10/18/24 Sherrie MONSON During your visit today, we recorded the following information about you: Barbie Causey RN 10/18/2024 10:07 AM Signed PSS/RT: Please schedule SIM treating pelvis with full bladder-next wk Needs Presim consent Nurse Ed today Consult Dieitican Thanks AYO Villarreal Jodi 10/18/2024 10:15 AM Signed Nurse Ed Scheduled Eva Gibson RT(R) 10/19/2024 3:02 PM Signed Sim scheduled at 11:00 on 10/26/24 PSS - Please add sim to ct scanner schedule at 11:00 x 45 min (SIM PRONE PELVIS) - Schedule presim consent with ELISEO at 1030 - Notify pt of 1015 arrival time, full bladder Thanks! Eva Gibson RT(R) (T) Judith Landaverde 10/19/2024 3:49 PM Signed Spoke to [facility] scheduled 10/26 arrival at 1015 with a full bladder Allergies As of Date: 10/18/2024 (No Known Allergies) Date Reviewed: 10/18/2024 Reviewed by: Risa Govea MA - Fully Assessed Reason for Visit: Appointment [[id number]] Prescriptions as of 10/19/2024 - iv contrast (will be provided with radiology test) MRI Rectum Inject, intravenously, once for 1 dose. No IV access, insert saline lock prior to the beginning of sedation, infusion, injection of imaging exam. Discontinue saline lock post exam. If Pt has a central line or IVAD, may access for administration according to line specific nursing protocol. Once exam is complete flush line and de-access according to line specific nursing protocol in the MR contrast administration guidelines link. - enteric contrast (will be provided with radiology test) MRI RECTUM WO/W. Administer, As Directed One Time Only, via Oral, Rectal, both Oral and Rectal, Enteric Tube, Stoma or Indwelling Catheter,? Enteric Contrast as designated per enteric contrast guidelines - iv contrast (will be provided with radiology test) CT Chest ABD/PEL-Inject, intravenously, once for 1 dose.No IV access, insert saline lock prior to the beginning of sedation, infusion, injection of imaging exam. Discontinue saline lock post exam. If Pt. has a central line or IVAD, may access for administration according to line specific nursing protocol. Once exam is complete flush line and de-access according to line specific nursing protocol in the CT contrast administration guidelines link. - enteric contrast (will be provided with radiology test) For CT CHESTABD/PEL W IVCON Routine order Administer, As Directed One Time Only, via Oral, Rectal, both Oral and Rectal, Enteric Tube, Stoma or Indwelling Catheter, Enteric Contrast as designated per enteric contrast guidelines Problem List As Of Date: 10/18/2024 (None) Encounter Status:Closed by JUDITH LANDAVERDE on 10/19/24 Normal [facility] metabolic 2000 panelOrdered By: Bertin Key on 10-18-2024 Albumin [Mass/Vol] 4.4 g/dL 3.9 - 4.9 g/dL [facility] ALP [Catalytic activity/Vol] 88 U/L 38 - 113 U/L [facility] ALT [Catalytic activity/Vol] 9 U/L Low 10 - 54 U/L [facility] Anion gap [Moles/Vol] 11 mmol/L 8 - 15 mmol/L [facility] AST [Catalytic activity/Vol] 11 U/L Low 14 - 40 U/L [facility] Bilirubin [Mass/Vol] 0.5 mg/dL 0.2 - 1 .3 mg/dL [facility] Calcium [Mass/Vol] 9.3 mg/dL 8.5 - 10. 2 mg/dL [facility] Chloride [Moles/Vol] 103 mmol/L 98 - 10 7 mmol/L [facility] CO2 [Moles/Vol] 24 mmol/L 22 - 30 mmol/L [facility] Creatinine [Mass/Vol] 0.73 mg/dL 0.73 - 1.22 mg/dL [facility] GFR/1.73 sq M.predicted among non-blacks MDRD (S/P/Bld) [Vol rate/Area] 100 mL/min/{1.73_m2} - PINF [facility] Comment on above: Estimated Glomerular Filtration Rate (eGFR) is calculated using the 2020 CKD-EPI creatinine equation. This equation utilizes serum creatinine, sex, and age as parameters. The creatinine assay has traceable calibration to isotope dilution-mass spectrometry. Refer to KDIGO guidelines for clinical interpretation. In patients with unstable renal function, e.g. those with acute kidney injury, the eGFR may not accurately reflect actual GFR. Glucose [Mass/Vol] 132 mg/dL High 74 - 99 mg/dL [facility] Comment on above: The [place] Diabete s Association (ADA) provides guidance for cutoff values for fasting glucose and random glucose. The ADA defines fasting as no caloric intake for at least 8 hours. Fasting plasma glucose results between 100 to 125 mg/dL indicate increased risk for diabetes (prediabetes). Fasting plasma glucose results greater than or equal to 126 mg/dL meet the criteria for diagnosis of diabetes. In the absence of unequivocal hyperglycemia, results should be confirmed by repeat testing. In a patient with classic symptoms of hyperglycemia or hyperglycemic crisis, random plasma glucose results greater than or equal to 200 mg/dL meet the criteria for diagnosis of diabetes. Reference: Standards of Medical Care in Diabetes 2016, [place] Diabetes Association. Diabetes Care. 2016.39(Suppl 1). Interpretation and review of laboratory results Abnormal [facility] Potassium [Moles/Vol] 3.9 mmol/L 3.7 - 5.1 mmol/L [facility] Protein [Mass/Vol] 6.9 g/dL 6.3 - 8.0 g/dL [facility] Sodium [Moles/Vol] 138 mmol/L 136 - 144 mmol/L [facility] Urea nitrogen [Mass/Vol] 11 mg/dL 9 - 24 mg/dL [facility] Comprehensive metabolic 2000 panelon 10-18-2024 Albumin [Mass/Vol] 4.4 g/dL Normal 3.9-4.9 [facility] Comment on above: Order Comment: Speci men Type: BLOOD SPECIMENOrdering Facility: [facility] Address: [address] [place] [address] Performed By: #### 2 4323-8 ####[facility] LABCLIA [id number] [place] [address] ALP [Catalytic activity/Vol] 88 U/L Normal 38-[address] [facility] Comment on above: Order Comment: Speci men Type: BLOOD SPECIMENOrdering Facility: [facility] Address: [address] [place] [address] Performed By: #### 2 4323-8 ####[facility] LABCLIA [id number] [place] [address] ALT [Catalytic activity/Vol] 9 U/L Low 10-[address] [facility] Comment on above: Order Comment: Speci men Type: BLOOD SPECIMENOrdering Facility: [facility] Address: [address] [place] [address] Performed By: #### 2 4323-8 ####[facility] LABCLIA [id number] [place] [address] Anion gap [Moles/Vol] 11 mmol/L Normal 8-15 [facility] Comment on above: Order Comment: Speci men Type: BLOOD SPECIMENOrdering Facility: [facility] Address: [address] [place] [address] Performed By: #### 2 4323-8 ####[facility] LABCLIA [id number] [place] [address] AST [Catalytic activity/Vol] 11 U/L Low 14-[address] [facility] Comment on above: Order Comment: Speci men Type: BLOOD SPECIMENOrdering Facility: [facility] Address: [address] [place] [address] Performed By: #### 2 4323-8 ####[facility] LABCLIA [id number] [place] [address] Bilirubin [Mass/Vol] 0.5 mg/dL Normal 0.2-1.3 [facility] Comment on above: Order Comment: Speci men Type: BLOOD SPECIMENOrdering Facility: [facility] Address: [address] [place] [address] Performed By: #### 2 4323-8 ####[facility] LABCLIA [id number] [place] [address] Calcium [Mass/Vol] 9.3 mg/dL Normal 8.5-10.2 [facility] Comment on above: Order Comment: Speci men Type: BLOOD SPECIMENOrdering Facility: [facility] Address: [address] [place] [address] Performed By: #### 2 4323-8 ####[facility] LABCLIA [id number] [place] [address] Chloride [Moles/Vol] 103 mmol/L Normal 98-107 [facility] Comment on above: Order Comment: Speci men Type: BLOOD SPECIMENOrdering Facility: [facility] Address: [address] [place] [address] Performed By: #### 2 4323-8 ####[facility] LABCLIA [id number] [place] [address] CO2 [Moles/Vol] 24 mmol/L Normal 22-[address] [facility] Comment on above: Order Comment: Speci men Type: BLOOD SPECIMENOrdering Facility: [facility] Address: [address] [place] [address] Performed By: #### 2 4323-8 ####[facility] LABCLIA [id number] [place] [address] Creatinine [Mass/Vol] 0.73 mg/dL Normal 0.73-1.22 [facility] Comment on above: Order Comment: Speci men Type: BLOOD SPECIMENOrdering Facility: [facility] Address: [address] [place], [place] [address] Performed By: #### 2 4323-8 ####[facility] LABCLIA [id number] [place] [address] Creatinine and Glomerular filtration rate.predicted panel (S/P/Bld) 100 mL/min/1.73m??? Normal >=[address] [facility] Comment on above: Order Comment: Speci men Type: BLOOD SPECIMENOrdering Facility: [facility] Address: [address] [place] [address] Result Comment: Tanya mated Glomerular Filtration Rate (eGFR) is calculated using the 2020 CKD-EPI creatinine equation. This equation utilizes serum creatinine, sex, and age as parameters. The creatinine assay has traceable calibration to isotope dilution-mass spectrometry. Refer to KDIGO guidelines for clinical interpretation. In patients with unstable renal function, e.g. those with acute kidney injury, the eGFR may not accurately reflect actual GFR. Performed By: #### 2 4323-8 ####[facility] LABCLIA [id number] [place] [address] Glucose [Mass/Vol] 132 mg/dL High 74-99 [facility] Comment on above: Order Comment: Marisoli sal Type: BLOOD SPECIMENOrdering Facility: [facility] Address: [address] [place] [address] Result Comment: The [place] Diabetes Association (ADA) provides guidance for cutoff values for fasting glucose and random glucose. The ADA defines fasting as no caloric intake for at least 8 hours. Fasting plasma glucose results between 100 to 125 mg/dL indicate increased risk for diabetes (prediabetes). Fasting plasma glucose results greater than or equal to 126 mg/dL meet the criteria for diagnosis of diabetes. In the absence of unequivocal hyperglycemia, results should be confirmed by repeat testing. In a patient with classic symptoms of hyperglycemia or hyperglycemic crisis, random plasma glucose results greater than or equal to 200 mg/dL meet the criteria for diagnosis of diabetes. Reference: Standards of Medical Care in Diabetes 2016, [place] [employer]. Diabetes Care. 2016.39(Suppl 1). Performed By: #### 2 4323-8 ####[facility] LABCLIA [id number] [place] [address] Potassium [Moles/Vol] 3.9 mmol/L Normal 3.7-5.1 [facility] Comment on above: Order Comment: Speci men Type: BLOOD SPECIMENOrdering Facility: [facility] Address: [address] [place] [address] Performed By: #### 2 4323-8 ####[facility] LABCLIA [id number] [place] [address] Protein [Mass/Vol] 6.9 g/dL Normal 6.3-8.0 [facility] Comment on above: Order Comment: Speci men Type: BLOOD SPECIMENOrdering Facility: [facility] Address: [address] [place] [address] Performed By: #### 2 4323-8 ####[facility] LABIA [id number] [place] [address] Sodium [Moles/Vol] 138 mmol/L Normal 136-144 [facility] Comment on above: Order Comment: Speci men Type: BLOOD SPECIMENOrdering Facility: [facility] Address: [address] [place] [address] Performed By: #### 2 4323-8 ####[facility] LABCLIA [id number] [place] [address] Urea nitrogen [Mass/Vol] 11 mg/dL Normal 9-[address] [facility] Comment on above: Order Comment: Speci men Type: BLOOD SPECIMENOrdering Facility: [facility] Address: [address] [place] [address] Performed By: #### 2 4323-8 ####[facility] LABIA [id number] [place] [address] Lanette 10-14-2024 PEYMANN Telephone ([facility]) BENTLEY GONZALEZ ([id number]) 1960 M Date Time Provider Department 10/14/24 RAZ TUCKER [facility] During your visit today, we recorded the following information about you: Mily Lynch RN 10/14/2024 11:06 AM Addendum Call placed to [facility] Dr Clemente office re: obtaining copy of pathology from 09/27 colonoscopy/rectal mass. [phone] They state that they have not received it yet. They have called twice to pathology office and still not completed. Dr Clemente' office has fax number to send sami once completed. Office staff alerted to inform Dr Tucker once scanned in. Allergies As of Date: 10/14/2024 (No Known Allergies) Date Reviewed: 10/07/2024 Reviewed by: Elisa Buchanan OCCA - Fully Assessed Reason for Visit: Request Outside Medical Records [3575] Cmt: pathology Primary Visit Diagnosis:Rectal cancer (HCC) [C20] Prescriptions as of 10/14/2024 - iv contrast (will be provided with radiology test) MRI Rectum Inject, intravenously, once for 1 dose. No IV access, insert saline lock prior to the beginning of sedation, infusion, injection of imaging exam. Discontinue saline lock post exam. If Pt has a central line or IVAD, may access for administration according to line specific nursing protocol. Once exam is complete flush line and de-access according to line specific nursing protocol in the MR contrast administration guidelines link. - enteric contrast (will be provided with radiology test) MRI RECTUM WO/W. Administer, As Directed One Time Only, via Oral, Rectal, both Oral and Rectal, Enteric Tube, Stoma or Indwelling Catheter,? Enteric Contrast as designated per enteric contrast guidelines - iv contrast (will be provided with radiology test) CT Chest ABD/PEL-Inject, intravenously, once for 1 dose.No IV access, insert saline lock prior to the beginning of sedation, infusion, injection of imaging exam. Discontinue saline lock post exam. If Pt. has a central line or IVAD, may access for administration according to line specific nursing protocol. Once exam is complete flush line and de-access according to line specific nursing protocol in the CT contrast administration guidelines link. - enteric contrast (will be provided with radiology test) For CT CHESTABD/PEL W IVCON Routine order Administer, As Directed One Time Only, via Oral, Rectal, both Oral and Rectal, Enteric Tube, Stoma or Indwelling Catheter, Enteric Contrast as designated per enteric contrast guidelines Problem List As Of Date: 10/14/2024 (None) Encounter Status:Closed by MILY LYNCH on 10/14/[address] [facility] CNPN Telephone ([facility]) BENTLEY GONZALEZ ([id number]) 1960 M Date Time Provider Department 10/14/24 RAZ TUCKER [facility] During your visit today, we recorded the following information about you: Raz Tucker MD 10/14/2024 4:17 PM Signed Updated pt on the result of path showing adenocarcinoma. Imaging still pending. Will proceed with med/onc and rad/onc referral Allergies As of Date: 10/14/2024 (No Known Allergies) Date Reviewed: 10/07/2024 Reviewed by: Elisa Buchanan OCCA - Fully Assessed Primary Visit Diagnosis:Rectal cancer (HCC) [C20] Order(s):CONSULT TO ONCOLOGY [9023] Order #: [id number]: 1 FUTURE RAD/ONC CONSULT [9037] Order #: [id number]: 1 FUTURE Prescriptions as of 10/14/2024 - iv contrast (will be provided with radiology test) MRI Rectum Inject, intravenously, once for 1 dose. No IV access, insert saline lock prior to the beginning of sedation, infusion, injection of imaging exam. Discontinue saline lock post exam. If Pt has a central line or IVAD, may access for administration according to line specific nursing protocol. Once exam is complete flush line and de-access according to line specific nursing protocol in the MR contrast administration guidelines link. - enteric contrast (will be provided with radiology test) MRI RECTUM WO/W. Administer, As Directed One Time Only, via Oral, Rectal, both Oral and Rectal, Enteric Tube, Stoma or Indwelling Catheter,? Enteric Contrast as designated per enteric contrast guidelines - iv contrast (will be provided with radiology test) CT Chest ABD/PEL-Inject, intravenously, once for 1 dose.No IV access, insert saline lock prior to the beginning of sedation, infusion, injection of imaging exam. Discontinue saline lock post exam. If Pt. has a central line or IVAD, may access for administration according to line specific nursing protocol. Once exam is complete flush line and de-access according to line specific nursing protocol in the CT contrast administration guidelines link. - enteric contrast (will be provided with radiology test) For CT CHESTABD/PEL W IVCON Routine order Administer, As Directed One Time Only, via Oral, Rectal, both Oral and Rectal, Enteric Tube, Stoma or Indwelling Catheter, Enteric Contrast as designated per enteric contrast guidelines Problem List As Of Date: 10/14/2024 (None) Encounter Status:Closed by RAZ TUCKER on 10/14/24 [facility] CNOVon 10-07-2024 CNOV Office Visit ([facility] ) BENTLEY GONZALEZ ([id number]) 1960 M Date Time Provider Department 10/07/24 9:00 AM RAZ TUCKER [facility] During your visit today, we recorded the following information about you: Temperature Pulse Blood pressure 97.5 degrees 87/minute 127/79 Rza Tucker MD 10/07/2024 9:58 AM Signed [facility] NOTE October 07, 2024 Bentley Gonzalez 64 year old This consult was requested by Dr. Clemente and my final recommendations will be communicated to the requesting health care provider by way of the shared medical record for internal providers or letter via the [employer] for external providers. Chief Complaint: rectal cancer, rectal obstruction History of Present Illness: Bentley Gonzalez is a 64 year old man who presents today for evaluation of rectal cancer with obstruction. He reports months of hematochezia as well as change in bowel habits prompting him to present for endoscopic evaluation. On colonoscopy, he was found to have a rectal mass on LUIS ANTONIO and on endoscopic evaluation, pediatric scope could not be advanced past the mass. Biopsy was taken and result pending. He presents for further evaluation and management. Patient reports that his difficulty defecating included small pellet-like stools, ~10 times a day, which has improved since he started taking MiraLAX daily. He now has large volume stool but still go multiple times a day. His hematochezia is also resolved. He denies abdominal pain nausea vomiting rectal pain. He denies fecal incontinence. Weight is stable. Denies family history of colorectal cancer. He is an active smoker of 1 pack/day for past for 54 years. Has tried to quit once in the past for 2 years before resuming again. Abdominal/anorectal surgery: Denies No past medical history on file. No past surgical history on file. Current Outpatient Medications Medication Sig Dispense Refill iv contrast (will be provided with radiology test) MRI Rectum Inject, intravenously, once for 1 dose. No IV access, insert saline lock prior to the beginning of sedation, infusion, injection of imaging exam. Discontinue saline lock post exam. If Pt has a central line or IVAD, may access for administration according to line specific nursing protocol. Once exam is complete flush line and de-access according to line specific nursing protocol in the MR contrast administration guidelines link. 1 Each 0 enteric contrast (will be provided with radiology test) MRI RECTUM WO/W. Administer, As Directed One Time Only, via Oral, Rectal, both Oral and Rectal, Enteric Tube, Stoma or Indwelling Catheter, Enteric Contrast as designated per enteric contrast guidelines 1 Each 0 iv contrast (will be provided with radiology test) CT Chest ABD/PEL-Inject, intravenously, once for 1 dose.No IV access, insert saline lock prior to the beginning of sedation, infusion, injection of imaging exam. Discontinue saline lock post exam. If Pt. has a central line or IVAD, may access for administration according to line specific nursing protocol. Once exam is complete flush line and de-access according to line specific nursing protocol in the CT contrast administration guidelines link. 1 Each 0 enteric contrast (will be provided with radiology test) For CT CHESTABD/PEL W IVCON Routine order Administer, As Directed One Time Only, via Oral, Rectal, both Oral and Rectal, Enteric Tube, Stoma or Indwelling Catheter, Enteric Contrast as designated per enteric contrast guidelines 1 Each 0 No current facility-administered medications for this visit. ALLERGIES No Known Allergies No family history on file. Social History Tobacco Use Smoking status: Every Day Types: Cigarettes Smokeless tobacco: Never Physical Exam: BP 127/79 (BP Site: Left Arm, BP Position: Sitting, BP Cuff Size: Regular Adult) Pulse 87 Temp 36.4 ?C (97.5 ?F) SpO2 99% General Appearance: Well appearing, alert, in no acute distress, well-hydrated, well nourished. Abdomen: soft, non distended, non tender Groin: no inguinal lymphadenopathy bilaterally Anorectal: External exam reveals no mass, fistula or fissure. Digital rectal exam reveals firm mass palpated anteriorly, with inferior edge ~1cm from anorectal ring. Exam limited due to discomfort Deputy Clerk Of Court present: Yes The sensitive examination was discussed with the Patient or Patient's Authorized Marble Finisher. As applicable, any other physician, advance practice provider, medical student, or other health professional student that will be observing or involved in the sensitive examination for educational or training purposes was discussed with the Patient or Authorized Marble Finisher. The Patient or Authorized Marble Finisher has agreed to proceed with the sensitive examination. (Sensitive examination includes inspection and/or palpation of (more content not included)... Normal [facility] PATHOLOGY REQUEST FOR LAB CO RPon 10-05-2024 PATHOLOGY REQUEST FOR LAB [facility] Comment on above: See report. Scanned copy available in EMR. PATHOLOGY GI SPECIMEN FIR [facility] Pathology Request for Lab Co rpon 09-24-2024 Pathology Request for Lab Darin Normal [facility] Comment on above: Order Comment: PATHO LOGY GI SPECIMEN Result Comment: See report. Scanned copy available in EMR. PERFORMED BY: [facility] [place] [address] PATHOLOGIST STOCK REPLENISHER GALILEA CHAMPION M.D. Performed By: #### P ATH TO [facility] #### [address] CBC (INCLUDES DIFF/PLT)on Basophils (Bld) [#/Vol] 0.024 10*3/uL Normal 0-200 [facility] Comment on above: Performed By: #### 6 399, 53453 #### [facility] [address] [place] [address] Change Analyst: Michelle Otero #### 7600 #### [facility] [address], [address] [place] [address] Change Analyst: Robles Chase MD Basophils/100 WBC (Bld) 0.3 % Normal [facility] Comment on above: Performed By: #### 6 399, 33910 #### [facility] [address] [place] [address] Change Analyst: Michelle Otero #### 7600 #### [facility] [address], [address] [place] [address] Change Analyst: Robles Chase MD Eosinophils (Bld) [#/Vol] 0.208 10*3/uL Normal 15-500 [facility] Comment on above: Performed By: #### 6 399, 07006 #### [facility] [address] [place] [address] Change Analyst: Michelle Otero #### 7600 #### [facility] [place] [address] [place] , [address] [place] [address] Change Analyst: Robles Chase MD Eosinophils/100 WBC (Bld) 2.6 % Normal [facility] Comment on above: Performed By: #### 6 399, 88285 #### [facility] [address] [place] [address] Change Analyst: Michelle Otero #### 7600 #### [facility] [address], [address] [place] [address] Change Analyst: Robles Chase MD Erythrocyte distribution width (RBC) [Ratio] 13.1 % Normal 11.0-15.0 [facility] Comment on above: Performed By: #### 6 399, 22139 #### [facility] [address] Change Analyst: Michelle Otero #### 7600 #### [facility] [address], [address] [place] [address] Change Analyst: Robles Chase MD Hematocrit (Bld) [Volume fraction] 43.3 % Normal 38.5-50.0 [facility] Comment on above: Performed By: #### 6 399, 69777 #### [facility] [address] Change Analyst: Michelle Otero #### 7600 #### [facility] [address], [address] [place] [address] Change Analyst: Robles Chase MD Hemoglobin (Bld) [Mass/Vol] 14.6 g/dL Normal 13.2-17.1 [facility] Comment on above: Performed By: #### 6 399, 42578 #### [facility] [address] Change Analyst: Michelle Otero #### 7600 #### [facility] [address], [address] [place] [address] Change Analyst: Robles Chase MD Lymphocytes (Bld) [#/Vol] 1.64 10*3/uL Normal 850-3900 [facility] Comment on above: Performed By: #### 6 399, 41091 #### [facility] [address] [place] [address] Change Analyst: Michelle Otero #### 7600 #### [facility] [address] , [address] [place] [address] Change Analyst: Robles Chase MD Lymphocytes/100 WBC (Bld) 20.5 % Normal [facility] Comment on above: Performed By: #### 6 399, 97550 #### [facility] [address] Change Analyst: Michelle Otero #### 7600 #### [facility] [address], [address] [place] [address] Change Analyst: Robles Chase MD MCH (RBC) [Entitic mass] 30.9 pg Normal 27.0-33.0 [facility] Comment on above: Performed By: #### 6 399, 86633 #### [facility] [address] Change Analyst: Michelle Otero #### 7600 #### [facility] [address], [address] [place] [address] Change Analyst: Robles Chase MD MCHC (RBC) [Mass/Vol] 33.7 g/dL Normal 32.0-36.[address] [facility] Comment on above: Result Comment: For adults, a slight decrease in the calculated MCHC value (in the range of 30 to 32 g/dL) is most likely not clinically significant; however, it should be interpreted with caution in correlation with other red cell parameters and the patient's clinical condition. Performed By: #### 6 399, 27752 #### [facility] [address] Change Analyst: Michelle Otero #### 7600 #### [facility] [address], [address] [place] [address] Change Analyst: Robles Chase MD MCV (RBC) [Entitic vol] 91.5 fL Normal 80.0-100.0 [facility] Comment on above: Performed By: #### 6 399, 03079 #### [facility] [address] [place] [address] Change Analyst: Michelle Otero #### 7600 #### [facility] [address], [address] [place] [address] Change Analyst: Robles Chase MD Monocytes (Bld) [#/Vol] 0.696 10*3/uL Normal 200-950 [facility] Comment on above: Performed By: #### 6 399, 04834 #### [facility] [address] [place], [place] [address] Change Analyst: Michelle Otero #### 7600 #### [facility] [address], [address] [place] [address] Change Analyst: Robles Chase MD Monocytes/100 WBC (Bld) 8.7 % Normal [facility] Comment on above: Performed By: #### 6 399, 55760 #### [facility] [address] Change Analyst: Michelle Otero #### 7600 #### [facility] [address], [address] [place] [address] Change Analyst: Robles Chase MD Neutrophils (Bld) [#/Vol] 5.432 10*3/uL Normal 8693-6588 [facility] Comment on above: Performed By: #### 6 399, 94960 #### [facility] [address] Change Analyst: Michelle Otero #### 7600 #### [facility] [address], [address] [place] [address] Change Analyst: Robles Chase MD Neutrophils/100 WBC (Bld) 67.9 % Normal [facility] Comment on above: Performed By: #### 6 399, 87452 #### [facility] [address] [place], [place] [address] Change Analyst: Michelle Otero #### 7600 #### [facility] [address], [address] [place] [address] Change Analyst: Robles Chase MD Platelet mean volume (Bld) [Entitic vol] 9.1 fL Normal 7.5-12.5 [facility] Comment on above: Performed By: #### 6 399, 47700 #### [facility] [address] [place], [place] [address] Change Analyst: Michelle Otero #### 7600 #### [facility] [place] [address] Change Analyst: Robles Chase MD Platelets (Bld) [#/Vol] 305 10*3/uL Normal 140-400 [facility] Comment on above: Performed By: #### 6 399, 91224 #### [facility] [address] [place], [place] [address] Change Analyst: Michelle Otero #### 7600 #### [facility] [place] [address] Change Analyst: Robles Chase MD RBC (Bld) [#/Vol] 4.73 10*6/uL Normal 4.20-5.80 [facility] Comment on above: Performed By: #### 6 399, 23615 #### [facility] [address] [place] [address] Change Analyst: Michelle Otero #### 7600 #### [facility] [place] [address] Change Analyst: Robles Chase MD WBC (Bld) [#/Vol] 8.0 10*3/uL Normal 3.8-10.8 [facility] Comment on above: Performed By: #### 6 399, 34380 #### [facility] [address] [place] [address] Change Analyst: Michelle Otero #### 7600 #### [facility] [place] [address] Change Analyst: Robles Chase MD COMPREHENSIVE METABOLIC PANE [facility] 09-21-2024 Albumin [Mass/Vol] 4.0 g/dL Normal 3.6-5.1 [facility] Comment on above: Performed By: #### 6 399, 64401 #### [facility] [address] [place], [place] [address] Change Analyst: Michelle Otero #### 7600 #### [facility] [address], [address] [place] [address] Change Analyst: Robles Chase MD Albumin/Globulin [Mass ratio] 1.7 {ratio} Normal 1.0-2.5 [facility] Comment on above: Performed By: #### 6 399, 74762 #### [facility] [address] [place], [place] [address] Change Analyst: Michelle Otero #### 7600 #### [facility] [address], [address] [place] [address] Change Analyst: Robles Chase MD ALP [Catalytic activity/Vol] 65 U/L Normal 35-144 [facility] Comment on above: Performed By: #### 6 399, 60649 #### [facility] [address] [place] [address] Change Analyst: Michelle Otero #### 7600 #### [facility] [address] , [address] [place] [address] Change Analyst: Robles Chase MD ALT [Catalytic activity/Vol] 9 U/L Normal 9-46 [facility] Comment on above: Performed By: #### 6 399, 91076 #### [facility] [address] [place] [address] Change Analyst: Michelle Otero #### 7600 #### [facility] [address] , [address] [place] [address] Change Analyst: Robles Chase MD AST [Catalytic activity/Vol] 13 U/L Normal 10-35 [facility] Comment on above: Performed By: #### 6 399, 21564 #### [facility] [address] [place] [address] Change Analyst: Michelle Otero #### 7600 #### [facility] [address] , [address] [place] [address] Change Analyst: Robles Chase MD Bilirubin [Mass/Vol] 0.4 mg/dL Normal 0.2-1.2 [facility] Comment on above: Performed By: #### 6 399, 28546 #### [facility] [address] Change Analyst: Michelle Otero #### 7600 #### [facility] [place] [address] [place] , [address] [place] [address] Change Analyst: Robles Chase MD Calcium [Mass/Vol] 8.7 mg/dL Normal 8.6-10.3 [facility] Comment on above: Performed By: #### 6 399, 55532 #### [facility] [address] Change Analyst: Michelle Otero #### 7600 #### [facility] [place] [address] [place] , [address] [place] [address] Change Analyst: Robles Chase MD Chloride [Moles/Vol] 108 mmol/L Normal 98-110 [facility] Comment on above: Performed By: #### 6 399, 82867 #### [facility] [address] Change Analyst: Michelle Otero #### 7600 #### [facility] [place] [address] [place] , [address] [place] [address] Change Analyst: Robles Chase MD CO2 [Moles/Vol] 25 mmol/L Normal 20-32 [facility] Comment on above: Performed By: #### 6 399, 16439 #### [facility] [address] [place] [address] Change Analyst: Michelle Otero #### 7600 #### [facility] [place] [address] [place] , [address] [place] [address] Change Analyst: Robles Chase MD Creatinine [Mass/Vol] 0.68 mg/dL Low 0.70-1.[address] [facility] Comment on above: Performed By: #### 6 399, 22563 #### [facility] [address] [place] [address] Change Analyst: Michelle Otero #### 7600 #### [facility] [address], [address] [place] [address] Change Analyst: Robles Chase MD GFR/1.73 sq M.predicted among non-blacks MDRD (S/P/Bld) [Vol rate/Area] 103 mL/min/{1.73_m2} Normal > OR = 60 [facility] Comment on above: Performed By: #### 6 399, 02091 #### [facility] [address] [place] [address] Change Analyst: Michelle Otero #### 7600 #### [facility] [address], [address] [place] [address] Change Analyst: Robles Chase MD Globulin (S) [Mass/Vol] 2.3 g/dL Normal 1.9-3.7 [facility] Comment on above: Performed By: #### 6 399, 98494 #### [facility] [address] [place] [address] Change Analyst: Michelle Otero #### 7600 #### [facility] [address], [address] [place] [address] Change Analyst: Robles Chase MD Glucose [Mass/Vol] 95 mg/dL Normal 65-99 [facility] Comment on above: Result Comment: Fasting reference interval Performed By: #### 6 399, 08244 #### [facility] [address] [place] [address] Change Analyst: Michelle Otero #### 7600 #### [facility] [address], [address] [place] [address] Change Analyst: Robles Cahse MD Potassium [Moles/Vol] 4.4 mmol/L Normal 3.5-5.[address] [facility] Comment on above: Performed By: #### 6 399, 54244 #### [facility] [address] [place] [address] Change Analyst: Michelle Otero #### 7600 #### [facility] [facility] [address], [address] [place] [address] Change Analyst: Robles Chase MD Protein [Mass/Vol] 6.3 g/dL Normal 6.1-8.1 [facility] Comment on above: Performed By: #### 6 399, [id number] #### [facility] [address] [place] [phone] Change Analyst: Michelle Otero #### 7600 #### [facility] [address], [address] [place] [address] Change Analyst: Robles Chase MD Sodium [Moles/Vol] 140 mmol/L Normal 135-146 [facility] Comment on above: Performed By: #### 6 399, [id number] #### [facility] [address] [place], [place] [id number] Change Analyst: Michelle Otero #### 7600 #### [facility] [address], [address] [place] [address] Change Analyst: Robles Chase MD Urea nitrogen [Mass/Vol] 14 mg/dL Normal 7-25 [facility] Comment on above: Performed By: #### 6 399, [id number] #### [facility] [address] [place] [address] Change Analyst: Michelle Otero #### 7600 #### [facility] [address], [address] [place] [address] Change Analyst: Robles Chase MD Urea nitrogen/Creatinine [Mass ratio] 21 mg/mg Normal 6-22 [facility] Comment on above: Performed By: #### 6 399, 84839 #### [facility] [address] [place] [phone] Change Analyst: Michelle Otero #### 7600 #### [facility] [address] [place] [address], [address] [address] Change Analyst: Robles Chase MD LIPID PANEL, [address] Cholesterol [Mass/Vol] 154 mg/dL Normal <200 [facility] Comment on above: Order Comment: FASTI NG:YES PATIENT UNABLE TO VOID; ADVISED TO RETURN FOR COLLECTION. FASTING: YES Performed By: #### 6 399, 06521 #### [facility] [address] [place] [address] Change Analyst: Michelle Otero #### 7600 #### [facility] [address], [address] [place] [address] Change Analyst: Robles Chase MD Cholesterol in HDL [Mass/Vol] 52 mg/dL Normal > OR = 40 [facility] Comment on above: Order Comment: FASTI NG:YES PATIENT UNABLE TO VOID; ADVISED TO RETURN FOR COLLECTION. FASTING: YES Performed By: #### 6 399, 84104 #### [facility] [address] [place], [place] [id number] Change Analyst: Michelle Otero #### 7600 #### [facility] [address], [address] [place] [address] Change Analyst: Robles Chase MD Cholesterol in LDL [Mass/Vol] 86 mg/dL Normal [facility] Comment on above: Order Comment: FASTI NG:YES PATIENT UNABLE TO VOID; ADVISED TO RETURN FOR COLLECTION. FASTING: YES Result Comment: Refe rence range: <100 Desirable range <100 mg/dL for primary prevention; <70 mg/dL for patients with CHD or diabetic patients with > or = 2 CHD risk factors. LDL-C is now calculated using the Janae calculation, which is a validated novel method providing better accuracy than the Friedewald equation in the estimation of LDL-C. Art BEAVERS et al. DARRIN. 2013;310(19): 5040-4719 (http://education.Enzymotec/faq/KFF606) Performed By: #### 6 399, 17043 #### [facility] [address] [place], [place] [phone] Change Analyst: Michelle Otero #### 7600 #### [facility] [address], [address] [place] [address] Change Analyst: Robles Chase MD Cholesterol.total/Chol esterol in HDL [Mass ratio] 3.0 {ratio} Normal <5.0 [facility] Comment on above: Order Comment: FASTI NG:YES PATIENT UNABLE TO VOID; ADVISED TO RETURN FOR COLLECTION. FASTING: YES Performed By: #### 6 399, 51761 #### [facility] [address] [place] [phone] Change Analyst: Michelle Otero #### 7600 #### [facility] [address], [address] [place] [address] Change Analyst: Robles Chase MD NON HDL CHOLESTEROL 102 mg/dL (calc) Normal <130 [facility] Comment on above: Order Comment: FASTI NG:YES PATIENT UNABLE TO VOID; ADVISED TO RETURN FOR COLLECTION. FASTING: YES Result Comment: For patients with diabetes plus 1 major ASCVD risk factor, treating to a non-HDL-C goal of <100 mg/dL (LDL-C of <70 mg/dL) is considered a therapeutic option. Performed By: #### 6 399, 95079 #### [facility] [address] [place] [phone] Change Analyst: Michelle Otero #### 7600 #### [facility] [address], [address] [place] [address] Change Analyst: Robles Chase MD Triglyceride [Mass/Vol] 70 mg/dL Normal <150 [facility] Comment on above: Order Comment: FASTI NG:YES PATIENT UNABLE TO VOID; ADVISED TO RETURN FOR COLLECTION. FASTING: YES Performed By: #### 6 399, 97810 #### [facility] [address] [place] [phone] Change Analyst: Michelle Otero #### 7600 #### [facility] [address], [address] [place], [place] [id number] Change Analyst: Robles Chase MD PSA, TOTALon 09-21-2024 PSA, TOTAL 0.83 ng/mL Normal < OR = 4.00 [facility] Comment on above: Result Comment: The total PSA value from this assay system is standardized against the WHO standard. The test result will be approximately 20% lower when compared to the equimolar-standardized total PSA (Edy Rolette). Comparison of serial PSA results should be interpreted with this fact in mind. This test was performed using the Siemens chemiluminescent method. Values obtained from different assay methods cannot be used interchangeably. PSA levels, regardless of value, should not be interpreted as absolute evidence of the presence or absence of disease. Performed By: #### 6 399, 16625 #### [facility] [address] [place] [address] Change Analyst: Michelle Otero #### 7600 #### [facility] [address], [address] [place] [address] Change Analyst: Robles Chase MD Laboratory - Hematology and Cell countson 08-02-2024 HbA1c (Bld) [Mass fraction] 5.3 % [facility] [employer] No Panel Informationon 08-02 Interpretation and review of laboratory results Normal [facility] [employer] CALCIUMon 09-24-2022 Calcium [Mass/Vol] 9.5 mg/dL Normal 8.6-10.5 [facility] Comment on above: Performed By: #### M GO, CHM7, LABHSTI1, IPB, CA #### [facility] (DEFAULT) [address] [address] CBC AND ELECTRONIC DIFFon Abs Baso Auto < Normal 0.00-0.09 [facility] Comment on above: Performed By: #### L AB980 #### [facility] (DEFAULT) [address] [address] Abs Eos Auto < Normal 0.00-0.48 [facility] Comment on above: Performed By: #### L AB980 #### [facility] (DEFAULT) [address] [place] [address] Basophils/100 WBC (Bld) 0.2 % Normal [facility] Comment on above: Performed By: #### L AB980 #### [facility] (DEFAULT) [address] [place] [address] DIFF STATUS Electronic Differential Normal [facility] Comment on above: Performed By: #### L AB980 #### [facility] (DEFAULT) [address] [place] [address] Eosinophils/100 WBC (Bld) 0.1 % Normal [facility] Comment on above: Performed By: #### L AB980 #### [facility] (DEFAULT) [address] [address] Hematocrit (Bld) [Volume fraction] 43.7 % Normal 39.6-48.8 [facility] Comment on above: Performed By: #### L AB980 #### [facility] (DEFAULT) [address] [place] [address] Hemoglobin (Bld) [Mass/Vol] 14.8 g/dL Normal 13.4-16.8 [facility] Comment on above: Performed By: #### L AB980 #### [facility] (DEFAULT) [address] [address] Immature Grans % 0.4 % Normal [facility] Comment on above: Performed By: #### L AB980 #### [facility] (DEFAULT) [address] [place] [address] Immature Grans Absolute 0.06 K/uL Normal <=0.07 [facility] Comment on above: Performed By: #### L AB980 #### [facility] (DEFAULT) [address] [address] Lymphocytes (Bld) [#/Vol] 1.83 10*3/uL Normal 0.83-3.57 [facility] Comment on above: Performed By: #### L AB980 #### [facility] (DEFAULT) [address] [place] [address] Lymphocytes/100 WBC (Bld) 11.2 % Normal [facility] Comment on above: Performed By: #### L AB980 #### [facility] (DEFAULT) [address] [place] [address] MCV (RBC) [Entitic vol] 91.6 fL Normal 79.0-94.5 [facility] Comment on above: Performed By: #### L AB980 #### [facility] (DEFAULT) [address] [place] [address] Mean Cell Hgb 31.0 pg Normal 26.1-33.3 [facility] Comment on above: Performed By: #### L AB980 #### [facility] (DEFAULT) [address] [place] [address]609 Mean Cell Hgb Conc 33.9 g/dL Normal 31.9-36.5 [facility] Comment on above: Performed By: #### L AB980 #### [facility] (DEFAULT) [address] [place] [address] Monocytes (Bld) [#/Vol] 1.44 10*3/uL High 0.24-0.93 [facility] Comment on above: Performed By: #### L AB980 #### [facility] (DEFAULT) [address] [address] Monocytes/100 WBC (Bld) 8.8 % Normal [facility] Comment on above: Performed By: #### L AB980 #### [facility] (DEFAULT) [address] [place] [address] Nucleated RBC 0.0 /100 WBC Normal <=0.2 [facility] Comment on above: Performed By: #### L AB980 #### [facility] (DEFAULT) [address] [place] [address] Platelet mean volume (Bld) [Entitic vol] 9.7 fL Normal 8.7-12.3 [facility] Comment on above: Performed By: #### L AB980 #### [facility] (DEFAULT) [address] [place] [address]26 Platelets (Bld) [#/Vol] 254 10*3/uL Normal 146-337 [facility] Comment on above: Performed By: #### L AB980 #### [facility] (DEFAULT) [address] [place] [address] RBC (Bld) [#/Vol] 4.77 10*6/uL Normal 4.38-5.83 [facility] Comment on above: Performed By: #### L AB980 #### [facility] (DEFAULT) [address] [place] [address] RBC Distribution 12.8 % Normal 10.9-14.3 [facility] Comment on above: Performed By: #### L AB980 #### [facility] (DEFAULT) [address] [place] [address] Segs + Bands Auto 79.3 % Normal [facility] Comment on above: Performed By: #### L AB980 #### [facility] (DEFAULT) [address] [place] [address] Segs + Bands,Absolute Auto 12.95 K/uL High 1.57-6.19 [facility] Comment on above: Performed By: #### L AB980 #### [facility] (DEFAULT) [address] [place] [address] WBC (Bld) [#/Vol] 16.33 10*3/uL High 3.73-10.10 [facility] Comment on above: Performed By: #### L AB980 #### [facility] (DEFAULT) [address] [address] CHEM 7 (LYTES,BUN,CREA,GLUC) on 09-24-2022 Anion gap [Moles/Vol] 15 mmol/L Normal 7-17 [facility] Comment on above: Performed By: #### M GO, CHM7, LABHSTI1, IPB, CA #### [facility] (DEFAULT) [address] [place] [address] Chloride [Moles/Vol] 104 mmol/L Normal 98-108 [facility] Comment on above: Performed By: #### M GO, CHM7, LABHSTI1, IPB, CA #### [facility] (DEFAULT) [address] [place] [address]007 CO2 [Moles/Vol] 21 mmol/L Normal 21-31 [facility] Comment on above: Performed By: #### M GO, CHM7, LABHSTI1, IPB, CA #### [facility] (DEFAULT) [address] [place] [address] Creatinine [Mass/Vol] 0.75 mg/dL Normal 0.70-1.30 [facility] Comment on above: Performed By: #### M GO, CHM7, LABHSTI1, IPB, CA #### [facility] (DEFAULT) [address] [place] [address] eGFR, CKD-EPI, Male > Normal >=60 [facility] Comment on above: Result Comment: Repo rted eGFR is based on the CKD-EPI 2020 equation using creatinine, age, and sex. Performed By: #### M VIN, CHM7, LABHSTI1, IPB, CA #### [facility] (DEFAULT) [address] [place] [address] Glucose [Mass/Vol] 79 mg/dL Normal 70-99 [facility] Comment on above: Performed By: #### M GO, CHM7, LABHSTI1, IPB, CA #### [facility] (DEFAULT) [address] [place] [address] Osmolality [Osmolality] 284 mosm/kg Normal 278-305 [facility] Comment on above: Performed By: #### M GO, CHM7, LABHSTI1, IPB, CA #### [facility] (DEFAULT) [address] [place] [address] Potassium [Moles/Vol] 4.1 mmol/L Normal 3.5-5.0 [facility] Comment on above: Performed By: #### M VIN, CHM7, LABHSTI1, IPB, CA #### [facility] (DEFAULT) [address] [place] [address] Sodium [Moles/Vol] 136 mmol/L Normal 135-145 [facility] Comment on above: Performed By: #### M VIN, CHM7, LABHSTI1, IPB, CA #### [facility] (DEFAULT) [address] [place] [address] Urea nitrogen [Mass/Vol] 13 mg/dL Normal 7-25 [facility] Comment on above: Performed By: #### Chrissy BANUELOS, LEWISM7, LABHSTI1, IPB, CA #### [facility] (DEFAULT) [address] [place] [address] Urea nitrogen/Creatinine [Mass ratio] 17 mg/mg Normal [facility] Comment on above: Performed By: #### Chrissy BANUELOS, LEWISM7, LABHSTI1, IPB, CA #### [facility] (DEFAULT) [address] [place] [address] HIGH SENSITIVITY TROPONIN I - SINGLE ORDERon 09-24-2022 hs-Troponin I 3 ng/L Normal <53 [facility] Comment on above: Order Comment: Acute Coronary Syndrome (ACS): Initial Evaluation and Management: [email or web address] Performed By: #### M VIN, CHM7, LABHSTI1, IPB, CA #### [facility] (DEFAULT) [address] [place] [address] MAGNESIUMon 09-24-2022 Magnesium [Mass/Vol] 1.8 mg/dL Normal 1.6-2.6 [facility] Comment on above: Performed By: #### M VIN, LEWISM7, LABHSTI1, IPB, CA #### [facility] (DEFAULT) [address] [place] [address] PHOSPHATE, INORGANICon 09-24 Phosphorous 2.8 mg/dL Normal 2.2-4.6 [facility] Comment on above: Performed By: #### M VIN, CHM7, LABHSTI1, IPB, CA #### [facility] (DEFAULT) [address] [place] [address] XR LSPINE 2_3 VIEWSon 2020 XR LSPINE 2_3 VIEWS EXAMINATION: XR LSPI NE 2_3 VIEWS HISTORY: Pain ; chronic low back pain, acute left sacroiliac pain COMPARISON: No relevant comparison available. FINDINGS: BONES: Mild anterior wedging of T12. Normal height and alignment of the vertebral bodies. Mild-moderate degenerative facet arthropathy L4-5, L5-S1. DISC SPACES: Moderate narrowing L5-S1. Mild narrowing L1-2, L2-3, L3-4. PARASPINOUS: Negative. No paraspinous abnormality is seen. OTHER: Negative. IMPRESSION: 1. Age-indeterminate mild compression fracture of T12, but favoring remote changes. 2. Multilevel moderate degenerative changes of the lumbar spine. No convincing acute abnormality, but no comparison studies. Electronically authenticated by: BRANDY NIEVES Date: 2021-09-11 09:36 Normal [facility] XR ELBOW RT MIN 3 VIEWSon XR ELBOW RT MIN 3 VIEWS EXAM: XR ELBOW RT MIN 3 VIEWS HISTORY: Pain of right elbow joint COMPARISON: None. TECHNIQUE: 3 views of the right elbow are performed. FINDINGS: There is posterior soft tissue swelling. No acute fracture. Mild degenerative changes are seen at the elbow joint. IMPRESSION: Posterior soft tissue swelling. No acute bony abnormality. Electronically authenticated by: TALIA SCHAFFER Date: 2021-07-06 19:49 Normal [facility] Vital Signs Date Time Vital Sign Value Performing Clinician Jermainei liyay 11-29-2024 09:59-0500 Body mass index (BMI) [Ratio] 17.68 kg/m2 MARGAUX Monson MD Work Phone: [facility] 11-29-2024 09:59-0500 Body temperature 97.5 [degF] MARGAUX Monson MD Work Phone: [facility] 11-29-2024 09:59-0500 Body weight 52 kg MARGAUX Monson MD Work Phone: [facility] 11-29-2024 09:59-0500 Diastolic blood pressure 79 mm[Hg] MARGAUX Monson MD Work Phone: [facility] 11-29-2024 09:59-0500 Heart rate 75 /min MARGAUX Monson MD Work Phone: [facility] 11-29-2024 09:59-0500 Respiratory rate 16 /min MARGAUX Monson MD Work Phone: [facility] 11-29-2024 09:59-0500 SaO2% (BldA) [Mass fraction] 100 % MARGAUX Monson MD Work Phone: [facility] 11-29-2024 09:59-0500 Systolic blood pressure 126 mm[Hg] MARGAUX Monson MD Work Phone: [facility] 11-22-2024 09:29-0500 Body height 171.5 cm Sancho Sánchez MD Work Phone: [facility] 11-22-2024 09:29-0500 Body mass index (BMI) [Ratio] 18.2 kg/m2 Sancho Sáncehz MD Work Phone: [facility] 11-22-2024 09:29-0500 Body weight 53.52 kg Sancho Sánchez MD Work Phone: [facility] 11-22-2024 09:29-0500 Diastolic blood pressure 82 mm[Hg] Sancho Sánchez MD Work Phone: [facility] 11-22-2024 09:29-0500 Heart rate 85 /min Sancho Sánchez MD Work Phone: [facility] 11-22-2024 09:29-0500 Respiratory rate 18 /min Sancho Sánchez MD Work Phone: [facility] 11-22-2024 09:29-0500 SaO2% (BldA) [Mass fraction] 99 % Sancho Sánchez MD Work Phone: [facility] 11-22-2024 09:29-0500 Systolic blood pressure 136 mm[Hg] Sancho Sánchez MD Work Phone: [facility] 11-22-2024 09:12-0500 Body mass index (BMI) [Ratio] 18.22 kg/m2 MARGAUX Monson MD Work Phone: [facility] 11-22-2024 09:12-0500 Body weight 53.6 kg MARGAUX Monson MD Work Phone: [facility] 11-22-2024 09:12-0500 Diastolic blood pressure 82 mm[Hg] MARGAUX Monson MD Work Phone: [facility] 11-22-2024 09:12-0500 Heart rate 85 /min MARGAUX Monson MD Work Phone: [facility] 11-22-2024 09:12-0500 Respiratory rate 18 /min MARGAUX Monson MD Work Phone: [facility] 11-22-2024 09:12-0500 SaO2% (BldA) [Mass fraction] 99 % MARGAUX Monson MD Work Phone: [facility] 11-22-2024 09:12-0500 Systolic blood pressure 136 mm[Hg] MARGAUX Monson MD Work Phone: [facility] 11-15-2024 09:04-0500 Body mass index (BMI) [Ratio] 18.19 kg/m2 MARGAUX Monson MD Work Phone: [facility] 11-15-2024 09:04-0500 Body temperature 96.69 [degF] MARGAUX Monson MD Work Phone: [facility] 11-15-2024 09:04-0500 Body weight 53.5 kg MARGAUX Monson MD Work Phone: [facility] 11-15-2024 09:04-0500 Diastolic blood pressure 74 mm[Hg] MARGAUX Monson MD Work Phone: [facility] 11-15-2024 09:04-0500 Heart rate 85 /min MARGAUX Monson MD Work Phone: [facility] 11-15-2024 09:04-0500 Respiratory rate 18 /min MARGAUX Monson MD Work Phone: [facility] 11-15-2024 09:04-0500 SaO2% (BldA) [Mass fraction] 100 % MARGAUX Monson MD Work Phone: [facility] 11-15-2024 09:04-0500 Systolic blood pressure 128 mm[Hg] MARGAUX Monson MD Work Phone: [facility] 11-08-2024 09:35-0500 Body height 171.5 cm Sancho Sánchez MD Work Phone: [facility] 11-08-2024 09:35-0500 Body mass index (BMI) [Ratio] 17.41 kg/m2 Sancho Sánchez MD Work Phone: [facility] 11-08-2024 09:35-0500 Body temperature 97.5 [degF] Sancho Sánchez MD Work Phone: [facility] 11-08-2024 09:35-0500 Body weight 51.2 kg Sancho Sánchez MD Work Phone: [facility] 11-08-2024 09:35-0500 Diastolic blood pressure 82 mm[Hg] Sancho Sánchez MD Work Phone: [facility] 11-08-2024 09:35-0500 Heart rate 80 /min Sancho Sánchez MD Work Phone: [facility] 11-08-2024 09:35-0500 Respiratory rate 16 /min Sancho Sánchez MD Work Phone: [facility] 11-08-2024 09:35-0500 SaO2% (BldA) [Mass fraction] 98 % Sancho Sánchez MD Work Phone: [facility] 11-08-2024 09:35-0500 Systolic blood pressure 121 mm[Hg] Sancho Sánchez MD Work Phone: [facility] 11-01-2024 13:43-0500 Body mass index (BMI) [Ratio] 18.12 kg/m2 Sancho Sánchez MD Work Phone: [facility] 11-01-2024 13:43-0500 Body temperature 97.11 [degF] Sancho Sánchez MD Work Phone: [facility] 11-01-2024 13:43-0500 Body weight 53.3 kg Sancho Sánchez MD Work Phone: [facility] 11-01-2024 13:43-0500 Diastolic blood pressure 78 mm[Hg] Sancho Sánchez MD Work Phone: [facility] 11-01-2024 13:43-0500 Heart rate 93 /min Sancho Sánchez MD Work Phone: [facility] 11-01-2024 13:43-0500 Respiratory rate 18 /min Sancho Sánchez MD Work Phone: [facility] 11-01-2024 13:43-0500 SaO2% (BldA) [Mass fraction] 97 % Sancho Sánchez MD Work Phone: [facility] 11-01-2024 13:43-0500 Systolic blood pressure 146 mm[Hg] Sancho Sánchez MD Work Phone: [facility] 10-18-2024 10:43-0500 Body height 171.5 cm Sancho Sánchez MD Work Phone: [facility] 10-18-2024 10:43-0500 Body mass index (BMI) [Ratio] 17.75 kg/m2 Sancho Sánchez MD Work Phone: [facility] 10-18-2024 10:43-0500 Body temperature 97.81 [degF] Sancho Sánchez MD Work Phone: [facility] 10-18-2024 10:43-0500 Body weight 52.2 kg Sancho Sánchez MD Work Phone: [facility] 10-18-2024 10:43-0500 Diastolic blood pressure 82 mm[Hg] Sancho Sánchez MD Work Phone: [facility] 10-18-2024 10:43-0500 Heart rate 86 /min Sancho Sánchez MD Work Phone: [facility] 10-18-2024 10:43-0500 Respiratory rate 16 /min Sancho Sánchez MD Work Phone: [facility] 10-18-2024 10:43-0500 SaO2% (BldA) [Mass fraction] 98 % Sancho Sánchez MD Work Phone: [facility] 10-18-2024 10:43-0500 Systolic blood pressure 133 mm[Hg] Sancho Sánchez MD Work Phone: [facility] 10-18-2024 09:48-0500 Body height 171.5 cm MARGAUX Monson MD Work Phone: [facility] 10-18-2024 09:48-0500 Body mass index (BMI) [Ratio] 17.76 kg/m2 MARGAUX Monson MD Work Phone: [facility] 10-18-2024 09:48-0500 Body temperature 97.81 [degF] MARGAUX Monson MD Work Phone: [facility] 10-18-2024 09:48-0500 Body weight 52.2 kg MARGAUX Monson MD Work Phone: [facility] 10-18-2024 09:48-0500 Diastolic blood pressure 89 mm[Hg] MARGAUX Monson MD Work Phone: [facility] 10-18-2024 09:48-0500 Heart rate 88 /min MARGAUX Monson MD Work Phone: [facility] 10-18-2024 09:48-0500 Respiratory rate 16 /min MARGAUX Monson MD Work Phone: [facility] 10-18-2024 09:48-0500 SaO2% (BldA) [Mass fraction] 99 % MARGAUX Monson MD Work Phone: [facility] 10-18-2024 09:48-0500 Systolic blood pressure 130 mm[Hg] MARGAUX Monson MD Work Phone: [facility] 10-07-2024 08:53-0500 Body temperature 97.5 [degF] Raz Tucker MD Work Phone: [facility] 10-07-2024 08:53-0500 Diastolic blood pressure 79 mm[Hg] Raz Tucker MD Work Phone: [facility] 10-07-2024 08:53-0500 Heart rate 87 /min Raz Tucker MD Work Phone: [facility] 10-07-2024 08:53-0500 SaO2% (BldA) [Mass fraction] 99 % Raz Tucker MD Work Phone: [facility] 10-07-2024 08:53-0500 Systolic blood pressure 127 mm[Hg] Raz Tucker MD Work Phone: [facility] 09-14-2024 16:16-0500 Body height 172.7 cm Rashaun Donohue MD Work Phone: [facility] 09-14-2024 16:16-0500 Body mass index (BMI) [Ratio] 18.25 kg/m2 Rashaun Donohue MD Work Phone: [facility] 09-14-2024 16:16-0500 Body weight 54.43 kg Rashaun Donohue MD Work Phone: [facility] 09-14-2024 16:16-0500 Diastolic blood pressure 74 mm[Hg] Rashaun Donohue MD Work Phone: [facility] 09-14-2024 16:16-0500 Heart rate 107 /min Rashaun Donohue MD Work Phone: [facility] 09-14-2024 16:16-0500 SaO2% (BldA) [Mass fraction] 97 % Rashaun Donohue MD Work Phone: [facility] 09-14-2024 16:16-0500 Systolic blood pressure 122 mm[Hg] Rashaun Donohue MD Work Phone: [facility] 09-07-2024 14:04-0500 Body height 172.7 cm Prabhakar Cleaning MD Work Phone: [facility] 09-07-2024 14:04-0500 Body mass index (BMI) [Ratio] 18.31 kg/m2 Prabhakar Cleaning MD Work Phone: [facility] 09-07-2024 14:04-0500 Body weight 54.61 kg Prabhakar Cleaning MD Work Phone: [facility] 09-07-2024 14:04-0500 Diastolic blood pressure 74 mm[Hg] Prabhakar Cleaning MD Work Phone: [facility] 09-07-2024 14:04-0500 Systolic blood pressure 118 mm[Hg] Prabhakar Cleaning MD Work Phone: [facility] 08-02-2024 14:45-0400 Body height 172.7 cm Rashaun Donohue MD Work Phone: [facility] 08-02-2024 14:45-0400 Body mass index (BMI) [Ratio] 18.25 kg/m2 Rashaun Donohue MD Work Phone: [facility] 08-02-2024 14:45-0400 Body weight 54.43 kg Rashaun Donohue MD Work Phone: [facility] 08-02-2024 14:45-0400 Diastolic blood pressure 82 mm[Hg] Rashaun Donohue MD Work Phone: [facility] 08-02-2024 14:45-0400 Heart rate 102 /min Rashaun Donohue MD Work Phone: [facility] 08-02-2024 14:45-0400 SaO2% (BldA) [Mass fraction] 96 % Rashaun Donohue MD Work Phone: [facility] 08-02-2024 14:45-0400 Systolic blood pressure 128 mm[Hg] Rashaun Donohue MD Work Phone: [facility] Healthcare Encounters Encounter Date Encounter Type Care Provider Facility Start: 12-03-2024 End: 12-03-2024 ambulatory Sherrie MONSON Facility:[facility] Start: 12-02-2024 End: 12-02-2024 ambulatory Sherrie MONSON Facility:[facility] Start: 12-01-2024 End: 12-01-2024 [facility] Start: 11-30-2024 End: 11-30-2024 ambulatory Sherrie MONSON Facility:[facility] Start: 11-29-2024 End: 11-29-2024 Patient encounter procedure Sherrie Monson MD Work Phone: Radiation Oncology Comment on above: Rectal cancer (HCC) (Primary Dx) Start: 11-29-2024 End: 11-29-[address] Work Phone: Nutrition Therapy Start: 11-29-2024 End: 11-29-[address] Joyce Valles RD Work Phone: Nutrition Therapy Comment on above: Nutrition Assessment Start: 11-26-2024 End: 11-26-2024 ambulatory Sherrie MONSON Facility:[facility] Start: 11-25-2024 End: 11-25-2024 Telephone encounter Rebecca Ballard RN Work Phone: Hematology/Oncology Comment on above: Care Coordination (T oxicity check) Start: 11-25-2024 End: 11-25-2024 ambulatory Sherrie MONSON Facility:[facility] Start: 11-24-2024 End: 11-24-2024 ambulatory Sherrie MONSON Facility:[facility] Start: 11-23-2024 End: 11-23-2024 ambulatory Sherrie MONSON Facility:[facility] Start: 11-22-2024 End: 11-22-2024 Clinisync Result Encounter Generic External Data Provider [facility] External Department Unsolicited Start: 11-22-2024 End: 11-22-2024 Clinisync Result Encounter Generic External Data Provider [facility] External Department Unsolicited Start: 11-22-2024 End: 11-22-2024 Office outpatient visit 25 minutes Sancho Sánchez MD Work Phone: Hematology/Oncology Comment on above: Rectal cancer (HCC) (Primary Dx) Start: 11-22-2024 End: 11-22-2024 Patient encounter procedure Sherrie Monson MD Work Phone: Radiation Oncology Comment on above: Rectal cancer (HCC) (Primary Dx) Start: 11-22-2024 End: 11-22-2024 ambulatory SANCHO SÁNCHEZ Facility:[facility] Start: 11-19-2024 End: 11-19-2024 ambulatory Sherrie MONSON Facility:[facility] Start: 11-18-2024 End: 11-18-2024 ambulatory Sherrie MONSON Facility:[facility] Start: 11-17-2024 End: 11-17-2024 ambulatory Sherrie [facility]IAN Facility:[facility] Start: 11-16-2024 End: 11-16-2024 ambulatory Sherrie [facility]IVIAN Facility:[facility] Start: 11-15-2024 End: 11-15-2024 Telephone encounter Rebecca Ballard RN Work Phone: Hematology/Oncology Comment on above: Care Coordination (C 1D1 treatment follow up call) Start: 11-15-2024 End: 11-15-2024 Patient encounter procedure Sherrie Monson MD Work Phone: Radiation Oncology Comment on above: Rectal cancer (HCC) (Primary Dx) Start: 11-15-2024 End: 11-15-2024 ambulatory Sherrie MONSON Facility:[facility] Start: 11-12-2024 End: 11-12-2024 [facility] Facility:[facility] Start: 11-11-2024 End: 11-11-2024 [facility] Start: 11-11-2024 End: 11-12-2024 Telephone encounter Rebecca Ballard RN Work Phone: Hematology/Oncology Comment on above: Care Coordination (R adiation question) Start: 11-10-2024 End: 11-10-2024 [facility] Facility:[facility] Start: 11-09-2024 End: 11-09-2024 [facility] Facility:[facility] Start: 11-08-2024 End: 11-08-2024 Clinisync Result Encounter Generic External Data Provider [facility] External Department Unsolicited Start: 11-08-2024 End: 11-08-2024 Clinisync Result Encounter Generic External Data Provider [facility] External Department Unsolicited Start: 11-08-2024 End: 11-09-2024 Telephone encounter [facility]: Port Pl[facility] Start: 11-08-2024 End: 11-08-2024 Nursing evaluation of patient and report Rebecca Ballard RN Work Phone: Hematology/Oncology Comment on above: Rectal cancer (HCC) (Primary Dx) Start: 11-08-2024 End: 11-08-2024 Office outpatient visit 25 minutes Sancho Sánchez MD Work Phone: Hematology/Oncology Comment on above: Rectal cancer (HCC) (Primary Dx) Start: 11-08-2024 End: 11-08-2024 ambulatory RASHAUN DONOHUE Facility:[facility] Start: 11-05-2024 End: 11-11-2024 Telephone encounter Rebecca Ballard RN Work Phone: Hematology/Oncology Comment on above: Care Coordination (T reatment planning) Start: 11-04-2024 End: 11-04-2024 Admission to same day surgery center Raz Tucker MD Work Phone: Colorectal Surgery Comment on above: Rectal cancer (HCC) (Primary Dx) Start: 11-04-2024 End: 11-04-2024 ambulatory RAZ TUCKER Facility:[facility] Start: 11-04-2024 End: 11-04-2024 Telemedicine consultation with patient Raz Tucker MD Work Phone: Colorectal Surgery Start: 11-02-2024 End: 11-03-2024 Telephone encounter Sancho Sánchez MD Work Phone: Hematology/Oncology Start: 11-01-2024 End: 11-01-2024 ambulatory SANCHO SÁNCHEZ Facility:[facility] Start: 11-01-2024 End: 11-09-2024 Clinisync Result Encounter Generic External Data Provider [facility] External Department Unsolicited Start: 11-01-2024 End: 11-09-2024 Clinisync Result Encounter Generic External Data Provider [facility] External Department Unsolicited Start: 11-01-2024 End: 11-01-2024 Office outpatient visit 25 minutes Sancho Sánchez MD Work Phone: Hematology/Oncology Comment on above: Rectal cancer (HCC) (Primary Dx) Start: 10-29-2024 ambulatory RAZ TUCKER [facility] ty:[facility] Start: 10-28-2024 End: 10-28-2024 Telephone encounter [facility] Comment on above: Appointment (Appoint ment reminder call--spoke with patient--gave directions to the office.) Start: 10-27-2024 End: 10-27-[address] Work Phone: Nutrition Therapy Start: 10-27-2024 End: 10-27-[address] therapy Joyce Valles RD Work Phone: Nutrition Therapy Comment on above: Nutrition Assessment Start: 10-27-2024 End: 10-27-2024 ambulatory RAZ TUCKER Facility:[facility] Start: 10-27-2024 End: 10-27-2024 Subsequent hospital visit by physician Arrival Time Radiology Work Phone: Radiology Pet CT Comment on above: Rectal mass [K62.89] Start: 10-26-2024 End: 11-05-2024 Patient encounter procedure Sherrie Monson MD Work Phone: Radiation Oncology Start: 10-26-2024 End: 11-05-2024 Radiation Oncology Note Sherrie Monson MD Work Phone: Radiation Oncology Comment on above: Simulation Note Treatment Planning Start: 10-26-2024 End: 10-26-2024 Social Work Sandhya Kim [employer] Hematology/Oncology Comment on above: Rectal cancer (HCC) (Primary Dx) Start: 10-18-2024 End: 10-19-2024 Telephone encounter Sherrie Monson MD Work Phone: Radiation Oncology Comment on above: Appointment Start: 10-18-2024 End: 10-18-2024 Office outpatient new 60 minutes Sancho Sánchez MD Work Phone: Hematology/Oncology Comment on above: Rectal cancer (HCC) (Primary Dx) Start: 10-18-2024 End: 10-18-2024 ambulatory Barbie Causey RN Radiation Oncology Comment on above: Patient Education Start: 10-18-2024 End: 10-18-2024 Office outpatient new 45 minutes Sherrie Monson MD Work Phone: Radiation Oncology Comment on above: Rectal cancer (HCC) Start: 10-14-2024 End: 10-14-2024 Telephone encounter Raz Tucker MD Work Phone: Colorectal Surgery Comment on above: Request Outside Medi bakari Records (pathology) Rectal cancer (HCC) (Primary Dx) Start: 10-07-2024 End: 10-07-2024 ambulatory RAZ TUCKER Facility:[facility] Start: 10-07-2024 End: 10-07-2024 Patient encounter procedure Raz Tucker MD Work Phone: Colorectal Surgery Comment on above: Rectal mass (Primary Dx) Start: 10-01-2024 End: 10-01-2024 ambulatory PRABHAKAR CLEMENTE V Not Available Start: 10-01-2024 End: 10-01-2024 Postop follow up visit related to original px Prabhakar Clemente MD Work Phone: [facility] Comment on above: Obstruction of rectu m (Primary Dx); Rectal cancer (CMS/HCC); Malignant neoplasm of colon, unspecified part of colon (CMS/HCC) Start: 09-24-2024 End: 10-05-2024 External Result Encounter Prabhakar Clemente MD Work Phone: [facility] External Department Unsolicited Start: 09-24-2024 End: 10-05-2024 External Result Encounter Prabhakar Cleaning MD Work Phone: [facility] External Department Unsolicited Start: 09-24-2024 End: 09-24-2024 ambulatory Prabhakar Clemente Facility:[facility] Start: 09-14-2024 End: 09-14-2024 Assay of hemosiderin, quant Rashaun Donohue MD Work Phone: [facility] Start: 09-14-2024 End: 09-14-2024 Office outpatient visit 25 minutes Rashaun Donohue MD Work Phone: [facility] Comment on above: Routine general medi bakari examination at health care facility (Primary Dx); Abnormal glucose tolerance test; Benign essential hypertension (CMS/HCC); Nocturia; Type 2 diabetes mellitus with diabetic neuropathy, without long-term current use of insulin (CMS/HCC); Medicare annual wellness visit, initial; Screening for lipid disorders; Myalgia; Smoker; Unspecified protein-calorie malnutrition (CMS/HCC); Immunodeficiency due to conditions classified elsewhere (CMS/HCC); Cigarette smoker Start: 09-14-2024 End: 09-14-2024 Patient encounter procedure Rashaun Donohue MD Work Phone: [facility] Start: 09-14-2024 End: 09-14-2024 ambulatory RASHAUN DONOHUE Not Available Start: 09-14-2024 End: 09-14-2024 Bamboo flowsheet Rashaun Donohue MD Work Phone: [facility] Start: 09-14-2024 End: 09-14-2024 Bamboo flowsheet Rashaun Donohue MD Work Phone: [facility] Start: 09-07-2024 End: 09-07-2024 Office outpatient new 45 minutes Prabhakar Clemente MD Work Phone: [facility] Comment on above: Change in bowel habi ts (Primary Dx); Blood in stool; Slow transit constipation Start: 09-07-2024 End: 09-07-2024 ambulatory PRABHAKAR CLEMENTE V Not Available Start: 08-02-2024 End: 08-02-2024 Office outpatient visit 25 minutes Rashaun Donohue MD Work Phone: [facility] Comment on above: Type 2 diabetes adán itus with diabetic neuropathy, without long-term current use of insulin (CMS/HCC) (Primary Dx); Benign essential hypertension (CMS/HCC); Slow transit constipation; Blood in stool Start: 08-02-2024 End: 08-02-2024 ambulatory RASHAUN DONOHUE Not Available Start: 09-01-2023 Patient encounter procedure Rashaun Donohue MD Work Phone: [facility] Start: 09-24-2022 Emergency department patient visit Facility:[facility] Start: 09-11-2021 End: 09-11-[address] LEONIDAS WHITFIELD Facility: Start: 07-06-2021 End: 07-06-[address] LEONIDAS WHITFIELD Facility: Start: 12-15-2020 End: 12-16-[address] MERCADO LISTED REQUEST Facility: Procedures Date Procedure Procedure Detail Performing Clinician Start: 11-22-2024 [facility] CBC W AUTO DIFF BLD Generic External Data Provider Start: 11-08-2024 [facility] CBC W AUTO DIFF BLD Generic External Data Provider Start: 11-01-2024 [facility] REFERRAL FOR ADDITIONAL BIOMARKER AND MOLECULAR TESTING Generic External Data Provider Start: 10-27-2024 Ct abdomen & pelvis w/contrast material Raz Tucker MD Work Phone: Start: 10-27-2024 Ct thorax w/contrast material Raz Tucker MD Work Phone: Start: 09-24-2024 PATHOLOGY REQUEST FO R LAB DARIN Prabhakar Clemente MD Work Phone: Start: 09-24-2024 Colonoscopy Prabhakar Cleaning MD Work Phone: Start: 09-07-2024 Colonoscopy Rashaun Donohue MD Work Phone: Start: 08-02-2024 Hemoglobin glycosyla kirstin a1c Rashaun Donohue MD Work Phone: Plan of Treatment Date Care Activity Detail Author Start: 09-24-2034 Screening for malignant neoplasm of colon [facility] Start: 09-07-2034 Screening for malignant neoplasm of colon [facility] Start: 2033 RSV Vaccine (1 - 1-dose 75+ series) RSV Vaccine (1 - 1-dose 75+ series) [facility] Start: 09-20-2029 Prostate specific antigen measurement Prostate Cancer Screening Discussion [facility] Start: 11-22-2027 Diabetes Screening Diabetes Screening [facility] Start: 11-08-2027 Diabetes Screening Diabetes Screening [facility] Start: 10-18-2027 Diabetes Screening Diabetes Screening [facility] Start: 08-02-2027 Diabetes Screening Diabetes Screening [facility] Start: 10-27-2025 Screening for malignant neoplasm of lung Lung Cancer Screening [facility] Start: 09-07-2025 Pneumococcal Vaccine: 65+ Years (1 of 2 - PCV) Pneumococcal Vaccine: 65+ Years (1 of 2 - PCV) [facility] Comment on above: Postponed from 1964 (Patient Refus ed) Start: 12-15-2024 End: 12-15-2024 Nutrition therapy 12/15/2024 9:15 AM EDT Education Nutrition Therapy [address] [place] [address] [place] [address] [place] [address] SEE AFTER RT Nutrition Therapy Comment on above: SEE AFTER RT Start: 12-15-2024 End: 12-15-2024 Patient encounter procedure 12/15/2024 8:45 AM EDT Appointment Radiation Oncology [address] [place] [address] Pelvis boost Radiation Oncology Comment on above: Pelvis boost Start: 12-14-2024 End: 12-14-2024 Patient encounter procedure 12/14/2024 8:45 AM EDT Appointment Radiation Oncology [address] [place] [address] Pelvis boost Radiation Oncology Comment on above: Pelvis boost Start: 12-13-2024 End: 12-13-2024 Patient encounter procedure Radiation Oncology Comment on above: Pelvis boost [facility]: [facility] Start: 12-10-2024 End: 12-10-2024 Patient encounter procedure 12/10/2024 8:45 AM EST Appointment Radiation Oncology [address] [place] [address] Pelvis Radiation Oncology Comment on above: Pelvis Start: 12-09-2024 End: 12-09-2024 Patient encounter procedure 12/09/2024 8:45 AM EST Appointment Radiation Oncology [address] [place] [address] Pelvis Radiation Oncology Comment on above: Pelvis Start: 12-08-2024 End: 12-08-2024 Patient encounter procedure 12/08/2024 2:45 PM EST Appointment Radiation Oncology [address] [place] [address] Pelvis - coming from port placement Radiation Oncology Comment on above: Pelvis - coming from port placement Start: 12-08-2024 End: 12-08-2024 Patient encounter procedure 12/08/2024 8:45 AM EST Appointment Radiation Oncology [address] [place] [address] Pelvis Radiation Oncology Comment on above: Pelvis Start: 12-07-2024 End: 12-07-2024 Patient encounter procedure 12/07/2024 8:45 AM EST Appointment Radiation Oncology [address] [place] [address] Pelvis Radiation Oncology Comment on above: Pelvis Start: 12-06-2024 End: 03-07-2025 CBC W Auto Differential panel - Blood COMPLETE BLOOD COUNT AND DIFFERENTIAL Lab Routine Rectal cancer (HCC) Expected: 12/06/2024, Expires: 03/07/[address] [facility] Work Phone: Comment on above: Expected: 12/06/2024, Expires: Start: 12-06-2024 End: 03-07-2025 Comprehensive metabolic 2000 panel - Serum or Plasma COMPREHENSIVE METABOLIC PANEL Lab Routine Rectal cancer (HCC) Expected: 12/06/2024, Expires: 03/07/2025 [facility] Comment on above: Expected: 12/06/2024, Expires: Start: 12-06-2024 End: 12-06-2024 Follow-up encounter 12/06/2024 10:00 AM EST Visit (SP) Office Hematology/Oncology [address] [place] [address] Marlene Jones, PAShermanC [address] [place] [address] 2 week follow up w/ [facility] Hematology/Oncology Comment on above: 2 week follow up w/ [facility] Start: 12-06-2024 End: 12-06-2024 Patient encounter procedure Radiation Oncology Comment on above: Pelvis Location: [facility] 2 week follow up w/ [facility] Start: 12-03-2024 End: 12-03-2024 Patient encounter procedure 12/03/2024 8:45 AM EST Appointment Radiation Oncology [address] [place] [address] Pelvis Radiation Oncology Comment on above: Pelvis Start: 12-02-2024 End: 12-02-2024 Patient encounter procedure 12/02/2024 8:45 AM EST Appointment Radiation Oncology [address] [place] [address] Pelvis Radiation Oncology Comment on above: Pelvis Start: 12-01-2024 End: 12-01-2024 Patient encounter procedure 12/01/2024 8:45 AM EST Appointment Radiation Oncology [address] [place] [address] Pelvis Radiation Oncology Comment on above: Pelvis Start: 11-30-2024 End: 11-30-2024 Patient encounter procedure 11/30/2024 8:45 AM EST Appointment Radiation Oncology [address] [place] [address] Pelvis Radiation Oncology Comment on above: Pelvis Start: 11-29-2024 IR PORTOCATH PLACEMENT IR PORTOCATH PLACEMENT Radiology Routine Rectal cancer (HCC) Expected: 11/29/[address] [facility] Work Phone: Comment on above: Expected: 11/29/2024 Start: 11-29-2024 End: 11-29-2024 Nutrition therapy 11/29/2024 9:15 AM EST Education Nutrition Therapy [address] [place] [address] [place] [address] SEE AFTER ELISEO Nutrition Therapy Comment on above: SEE AFTER ELISEO Start: 11-29-2024 End: 11-29-2024 Patient encounter procedure Radiation Oncology Comment on above: Pelvis Location: [facility] Pelvis-rn examiner aft er ELISEO Start: 11-26-2024 End: 11-26-2024 Patient encounter procedure Radiation Oncology Comment on above: Pelvis Start: 11-25-2024 End: 11-25-2024 Patient encounter procedure Radiation Oncology Comment on above: Pelvis Start: 11-24-2024 End: 11-24-2024 Patient encounter procedure 11/24/2024 8:45 AM EST Appointment Radiation Oncology [address] [place] [address] Pelvis Radiation Oncology Comment on above: Pelvis Start: 11-23-2024 End: 11-23-2024 Patient encounter procedure Radiation Oncology Comment on above: Pelvis Pelvis-make sure coral dder is full Start: 11-22-2024 End: 02-21-2025 CBC W Auto Differential panel - Blood COMPLETE BLOOD COUNT AND DIFFERENTIAL Lab Routine Rectal cancer (HCC) Expected: 11/22/2024 (Approximate), Expires: 02/21/2025 [facility] Comment on above: Expected: 11/22/2024 (Approximate), Expi res: 02/21/2025 Start: 11-22-2024 End: 02-21-2025 Comprehensive metabolic 2000 panel - Serum or Plasma COMPREHENSIVE METABOLIC PANEL Lab Routine Rectal cancer (HCC) Expected: 11/22/2024 (Approximate), Expires: 02/21/2025 [facility] Comment on above: Expected: 11/22/2024 (Approximate), Expi res: 02/21/2025 Start: 11-22-2024 End: 11-22-2024 Follow-up encounter 11/22/2024 9:30 AM EST Visit (SP) Office Hematology/Oncology [address] [place] [place] [address] Sancho Sánchez MD [address] [place] [place] [address] 2 week follow up w/ [facility] Hematology/Oncology Comment on above: 2 week follow up w/ [facility] Start: 11-22-2024 End: 11-22-2024 Patient encounter procedure Radiation Oncology Comment on above: Pelvis 2 week follow up w/ [facility] Pelvis-make sure coral dder is full Location: [facility] Start: 11-19-2024 End: 11-19-2024 Patient encounter procedure Radiation Oncology Comment on above: Pelvis Pelvis-make sure coral dder is full Start: 11-18-2024 End: 11-18-2024 Patient encounter procedure Radiation Oncology Comment on above: Pelvis Pelvis-make sure coral dder is full Start: 11-17-2024 End: 11-17-2024 Patient encounter procedure Radiation Oncology Comment on above: Pelvis Pelvis-make sure coral dder is full Start: 11-16-2024 End: 11-16-2024 Patient encounter procedure Radiation Oncology Comment on above: Pelvis Pelvis-make sure coral dder is full Start: 11-15-2024 End: 11-15-2024 Patient encounter procedure Radiation Oncology Comment on above: Pelvis Pelvis-make sure coral dder is full Location: [facility] Start: 11-12-2024 End: 11-12-2024 Patient encounter procedure Radiation Oncology Comment on above: Pelvis Pelvis-make sure coral dder is full Start: 11-11-2024 End: 11-11-2024 Patient encounter procedure Radiation Oncology Comment on above: Pelvis Pelvis-make sure coral dder is full Start: 11-10-2024 End: 11-10-2024 Patient encounter procedure Radiation Oncology Comment on above: Pelvis Pelvis-make sure coral dder is full Start: 11-09-2024 End: 11-09-2024 Patient encounter procedure 11/09/2024 2:15 PM EST Appointment Radiation Oncology [address] [place] [address] Pelvis Radiation Oncology Comment on above: Pelvis Start: 11-08-2024 End: 02-07-2025 Carcinoembryonic Ag [Mass/volume] in Serum or Plasma CARCINOEMBRYONIC ANTIGEN Lab Routine Rectal cancer (HCC) Expected: 11/08/2024 (Approximate), Expires: 02/07/2025 [facility] Comment on above: Expected: 11/08/2024 (Approximate), Expi res: 02/07/2025 Start: 11-08-2024 End: 02-07-2025 CBC W Auto Differential panel - Blood COMPLETE BLOOD COUNT AND DIFFERENTIAL Lab Routine Rectal cancer (HCC) Expected: 11/08/2024 (Approximate), Expires: 02/07/[address] [facility] Work Phone: Comment on above: Expected: 11/08/2024 (Approximate), Expi res: 02/07/2025 Start: 11-08-2024 End: 02-07-2025 Comprehensive metabolic 2000 panel - Serum or Plasma COMPREHENSIVE METABOLIC PANEL Lab Routine Rectal cancer (HCC) Expected: 11/08/2024 (Approximate), Expires: 02/07/2025 [facility] Comment on above: Expected: 11/08/2024 (Approximate), Expi res: 02/07/2025 Start: 11-08-2024 End: 11-08-2024 Nursing evaluation of patient and report 11/08/2024 9:00 AM EST Nurse Visit Hematology/Oncology [address] [place] [address] Rebecca Ballard, RN [address] [facility] [place] [address] Chemo Education Hematology/Oncology Comment on above: Chemo Education Start: 11-08-2024 End: 11-08-2024 Follow-up encounter 11/08/2024 8:30 AM EST Visit (SP) Office Hematology/Oncology [address] [place] [address] [place] [address] Sancho Sánchez MD [address] [place] [address] Follow up Hematology/Oncology Comment on above: Follow up Start: 11-08-2024 End: 11-08-2024 Patient encounter procedure 11/08/2024 8:20 AM EST Office Visit [facility] [address] [place] [address] [place] [address] lab [facility] Comment on above: lab Start: 11-08-2024 End: 11-08-2024 Patient encounter procedure Radiation Oncology Comment on above: [place] PELVIS PELVIS- would like a nytime PELVIS- would like a nytime- needs to see Lara @ 8:30 lab Start: 11-04-2024 End: 11-04-2024 Admission to same day surgery center 11/04/2024 1:00 PM EST [facility] Colorectal Surgery [address] [id number] [place] [address] [place] [address] Est Pt: To discuss results of Exam Colorectal Surgery Comment on above: Est Pt: To discuss results of Exam Start: 11-03-2024 End: 11-03-2024 Nursing evaluation of patient and report 11/03/2024 9:00 AM EST Nurse Visit Hematology/Oncology [address] [place] [address] [place] [address] Rebecca Ballard, RN [address] [place] [address] Chemo Education Hematology/Oncology Comment on above: Chemo Education Start: 11-02-2024 Hemoglobin A1c measurement Diabetes: Hemoglobin A1C [facility] Start: 11-02-2024 Influenza vaccination Influenza Vaccine (#1) [facility] Comment on above: Postponed from 06/06/2024 (Patient Refus ed) Start: 11-01-2024 End: 11-01-2024 Follow-up encounter 11/01/2024 2:00 PM EST Visit (SP) Office Hematology/Oncology [address] [place] [address] Sancho Sánchez MD [address] [place] [address] 2 week follow up Hematology/Oncology Comment on above: 2 week follow up Start: 10-29-2024 End: 10-29-2024 Patient encounter procedure 10/29/2024 11:00 AM EST Appointment Radiology [address] [place] [address] MRI rectum Radiology Comment on above: MRI rectum Start: 10-27-2024 End: 10-27-2024 Nutrition therapy 10/27/2024 12:45 PM EST Education Nutrition Therapy [address] [place] [address] [place] [address] Diet Nutrition Therapy Comment on above: Diet Start: 10-27-2024 End: 10-27-2024 Patient encounter procedure 10/27/2024 8:15 AM EST Appointment Radiology Pet CT [address] [place] [address] CT chest, Abd, pel with contrast with labs Radiology Pet CT Comment on above: CT chest, Abd, pel with contrast with la bs Start: 10-26-2024 End: 10-26-2024 Patient encounter procedure Radiation Oncology Comment on above: PRE SIM - PRONE RECTUM, NEEDS CONSENT SIM - PRONE RECTUM, NEEDS CONSENT Start: 10-13-2024 End: 10-13-2024 Professional / ancillary services management 10/13/2024 10:30 AM EST Ancillary Procedure [facility] [address] [place] [address] [facility] Start: 10-07-2024 End: 01-06-2025 Carcinoembryonic Ag [Mass/volume] in Serum or Plasma CARCINOEMBRYONIC ANTIGEN Lab Routine Rectal mass Expected: 10/07/2024 (Approximate), Expires: 01/06/2025 [facility] Comment on above: Expected: 10/07/2024 (Approximate), Expi res: 01/06/2025 Start: 10-07-2024 End: 01-06-2025 CREATININE BLD CREATININE BLD Lab Routine Rectal mass Expected: 10/07/2024 (Approximate), Expires: 01/06/2025 [facility] Comment on above: Expected: 10/07/2024 (Approximate), Expi res: 01/06/2025 Start: 10-06-2024 Advance Directive Discussion Advance Directive Discussion [facility] Start: 10-01-2024 End: 10-01-2024 Patient encounter procedure 10/01/2024 9:00 AM EST Office Visit [facility] [address] [id number] [place] Clemente MD [address] [facility] [address] [facility] Start: 09-14-2024 End: 09-14-2024 Patient encounter procedure [facility] Comment on above: Arrived Start: 09-14-2024 End: 09-14-2025 CBC W Auto Differential panel - Blood CBC and differential Lab Routine Type 2 diabetes mellitus with diabetic neuropathy, without long-term current use of insulin ([facility]) Medicare annual wellness visit, initial Screening for lipid disorders Myalgia Expected: 09/14/2024 (Approximate), Expires: 09/14/2025 [facility] Work Phone: Comment on above: Expected: 09/14/2024 (Approximate), Expi res: 09/14/2025 Start: 09-14-2024 End: 09-14-2025 Comprehensive metabolic 2000 panel - Serum or Plasma Comprehensive metabolic panel Lab Routine Abnormal glucose tolerance test Benign essential hypertension ([facility]) Type 2 diabetes mellitus with diabetic neuropathy, without long-term current use of insulin ([facility]) Medicare annual wellness visit, initial Myalgia Expected: 09/14/2024 (Approximate), Expires: 09/14/2025 [facility] Comment on above: Expected: 09/14/2024 (Approximate), Expi res: 09/14/2025 Start: 09-14-2024 End: 09-14-2025 CT Chest for screening WO contrast CT lung screening low dose Imaging Routine Medicare annual wellness visit, initial Smoker Cigarette smoker Expected: 09/14/2024, Expires: 09/14/2025 [facility] Comment on above: Expected: 09/14/2024, Expires: Start: 09-14-2024 End: 09-14-2025 Lipid 1996 panel - Serum or Plasma Lipid panel Lab Routine Medicare annual wellness visit, initial Screening for lipid disorders Expected: 09/14/2024 (Approximate), Expires: 09/14/2025 [facility] Comment on above: Expected: 09/14/2024 (Approximate), Expi res: 09/14/2025 Start: 09-14-2024 End: 09-14-2025 Microalbumin/Creatinine panel in random Urine Microalbumin / creatinine urine ratio Lab Routine Type 2 diabetes mellitus with diabetic neuropathy, without long-term current use of insulin ([facility]) Medicare annual wellness visit, initial Expected: 09/14/2024 (Approximate), Expires: 09/14/2025 [facility] Comment on above: Expected: 09/14/2024 (Approximate), Expi res: 09/14/2025 Start: 09-14-2024 End: 09-14-2025 Prostate specific Ag [Mass/volume] in Serum or Plasma PSA Lab Routine Nocturia Medicare annual wellness visit, initial Expected: 09/14/2024 (Approximate), Expires: 09/14/2025 [facility] Comment on above: Expected: 09/14/2024 (Approximate), Expi res: 09/14/2025 Start: 09-05-2024 Urine screening for protein Diabetes: Urine Protein Screening [facility] Start: 09-01-2024 Medicare Annual Wellness (AWV) Medicare Annual Wellness (AWV) [facility] Start: 09-01-2024 Pneumococcal Vaccine: 65+ Years (1 of 2 - PCV) Pneumococcal Vaccine: 65+ Years (1 of 2 - PCV) [facility] Comment on above: Postponed from 1964 (Other Patient Reasons) Start: 06-06-2024 Covid-19 Vaccine ( season) Covid-19 Vaccine ( season) [facility] Start: 06-06-2024 Influenza vaccination Influenza Vaccine (#1) [facility] Start: 2018 RSV Vaccine (1 - Risk 60-74 years 1-dose series) RSV Vaccine (1 - Risk 60-74 years 1-dose series) [facility] Start: 2008 Screening for malignant neoplasm of lung Lung Cancer Screening [facility] Start: 2008 Shingrix Vaccine (1 of 2) Shingrix Vaccine (1 of 2) [facility] Start: 2003 Screening for malignant neoplasm of colon [facility] Start: 1993 Lipid panel Lipid Screening [facility] Start: 1977 Pneumococcal Vaccine: 50+ (1 of 2 - PCV) Pneumococcal Vaccine: 50+ (1 of 2 - PCV) [facility] Start: 1977 Shingrix Vaccine (1 of 2) Shingrix Vaccine (1 of 2) [facility] Start: 1977 Urine microalbumin profile DTaP,Tdap,Td Vaccine (1 - Tdap) [facility] Start: 1976 Anxiety Screening Anxiety Screening [facility] Start: 1976 Depression Screening Depression Screening [facility] Start: 1976 Hepatitis C screening Hepatitis C Screening [facility] Start: 1968 Glaucoma screening Diabetes: Retinopathy Screening [facility] Start: 1964 Pneumococcal Vaccine: 65+ Years (1 of 2 - PCV) Pneumococcal Vaccine: 65+ Years (1 of 2 - PCV) [facility] Start: 1963 Covid-19 Vaccine (#1) Covid-19 Vaccine (#1) [facility] Start: 1958 Abdominal aortic aneurysm screening Abdominal Aortic Aneurysm Screening [facility] Start: 1958 Screening for malignant neoplasm of colon [facility] End: 11-06-2025 CT Abdomen and Pelvis W contrast IV CT ABD/PEL W IVCON Radiology Routine Rectal mass 1 Occurrences starting 10/07/2024 until 11/06/2025 [facility] Comment on above: 1 Occurrences starting 10/07/2024 until 11/06/2025 End: 11-06-2025 CT Chest W contrast IV CT CHEST W IVCON Radiology Routine Rectal mass 1 Occurrences starting 10/07/2024 until 11/06/2025 [facility] Comment on above: 1 Occurrences starting 10/07/2024 until 11/06/2025 CT Guidance for radi ation treatment of Unspecified body region CT SIM PLANNING RADIATION ONCOLOGY Radiology Routine Rectal cancer (HCC) Ordered: 10/26/[address] [facility] Work Phone: Comment on above: Ordered: 10/26/2024 End: 11-06-2025 MR Pelvis WO contrast MRI RECTUM WO/W IVCON Radiology Routine Rectal mass 1 Occurrences starting 10/07/2024 until 11/06/[address] [facility] Work Phone: Comment on above: 1 Occurrences starting 10/07/2024 until 11/06/2025 OUTSIDE SURG PATH SL JUNIOR REVIEW OUTSIDE SURG PATH SLIDE REVIEW Lab Routine Rectal cancer (HCC) Ordered: 10/14/[address] [facility] Work Phone: Comment on above: Ordered: 10/14/2024 REFERRAL FOR ADDITIO NAL BIOMARKER AND MOLECULAR TESTING REFERRAL FOR ADDITIONAL BIOMARKER AND MOLECULAR TESTING Lab Routine Rectal cancer (HCC) 11/01/2024 2:03 PM EST [facility] Payers Date Payer Category Payer Self-pay 2023 Unknown [facility] [employer] O [id number] 2023-Present [phone] [address] [place] [address] O [id number] 2023 Medicare (Managed Care) [id number]. [id number] 2023 Medicare [id number] 1959 Self-pay [id number] 1960 Unknown [id number] 1958 Unknown [id number] 1958 Unknown [id number] 1958 Unknown [id number] 1958 Unknown [id number] 1958 Unknown [id number] Unknown [id number] Unknown [id number] Social History Date Type Detail Facility Start: 10-06-1970 End: 10-18-2024 Tobacco smoking status OKIS Smokes tobacco daily [facility] Start: 10-06-1970 History of tobacco use Cigarette Smo ker [facility] Start: 08-05-2023 End: 10-18-2024 Tobacco use and exposure Smokeless tobacco non-user [facility] Start: 08-02-2024 End: 11-29-2024 Alcoholic beverage intake Current drinker of alcohol (finding) [facility] Start: 08-02-2024 End: 10-07-2024 History of Social function [facility] Start: 08-02-2024 End: 10-07-2024 Tobacco use panel [facility] Start: 08-05-2023 Alcohol Comment 1 or 2 every couple month [facility] Start: 1960 Sex assigned at Not on file N [facility] National Score (1-10 0), lower number is lower risk 94 [facility] Start: 10-18-2024 Alcohol Comment very seldom [facility] Clinical Notes 08-02-2024 to 11-29-2024 Sherrie Monson MD - 11/29/2024 9:[address] - 11/29/2024 9:15 AM ESTTelephone Encounter - Rebecca Ballard RN - 11/25/2024 2:42 PM ESTPatient Instructions Note Date & Type Note Facility 11-29-2024 Note HNO ID: [id number] Author: Sherrie MONSON MD Service: ? Author Type: Physician Type: Progress Notes Filed: 11/29/2024 10:10 Note Text: Radiation Oncology - On Treatment Review (OTR) Note PATIENT NAME: Bentley Gonzalez PATIENT DIAGNOSIS: Locally advanced adenocarcinoma the rectum. COURSE: definitive, pre-operative, and concurrent chemotherapy AREA TREATED: Pelvis/Rectum CURRENT DOSE: 2880 cGy in 16 fx PLANNED DOSE: 5040 cGy in 28 fx SUBJECTIVE: Doing well. States his bowel function is best in the morning overall improved in the afternoon having multiple bowel movements and urgency. No pain or bleeding. No rash or other issues. EXAM: 11/29/24 0959 BP: 126/79 Pulse: 75 Resp: 16 Temp: 36.4 ?C (97.5 ?F) SpO2: 100% Weight: 52 kg (114 lb 10.2 oz) KPS: 100 General Appearance: Alert and oriented. No acute distress. Radiation dermatitis: No IMAGING/LAB RESULTS: Hemoglobin (g/dL) Date Value 11/22/2024 14.4 Hematocrit (%) Date Value 11/22/2024 43.0 WBC (k/uL) Date Value 11/22/2024 5.08 Platelet Count (k/uL) Date Value 11/22/2024 157 Treatment chart checked: Yes Patient treatment site reviewed and verified:Yes Port films reviewed and current:Yes Medications started: None ASSESSMENT/PLAN: Clinically stable. Continue diet modification and Imodium as needed. Bowel frequency. Patient meeting with dietitian regarding strategies to prevent further weight loss. Toxicity within expected parameters. Continue radiation treatment as planned. Sherrie Monson MD [facility] 11-29-2024 History of Presen t illness Narrative Radiation Oncology - On Treatment Review (OTR) Note PATIENT NAME: Bentley Gonzalez PATIENT DIAGNOSIS: Locally advanced adenocarcinoma the rectum. COURSE: definitive, pre-operative, and concurrent chemotherapy AREA TREATED: Pelvis/Rectum CURRENT DOSE: 2880 cGy in 16 fx PLANNED DOSE: 5040 cGy in 28 fx SUBJECTIVE: Doing well. States his bowel function is best in the morning overall improved in the afternoon having multiple bowel movements and urgency. No pain or bleeding. No rash or other issues. EXAM: 11/29/24 0959 BP: 126/79 Pulse: 75 Resp: 16 Temp: 36.4 C (97.5 F) SpO2: 100% Weight: 52 kg (114 lb 10.2 oz) KPS: 100 General Appearance: Alert and oriented. No acute distress. Radiation dermatitis: No IMAGING/LAB RESULTS: Hemoglobin (g/dL) Date Value 11/22/2024 14.4 Hematocrit (%) Date Value 11/22/2024 43.0 WBC (k/uL) Date Value 11/22/2024 5.08 Platelet Count (k/uL) Date Value 11/22/2024 157 Treatment chart checked: Yes Patient treatment site reviewed and verified:Yes Port films reviewed and current:Yes Medications started: None ASSESSMENT/PLAN: Clinically stable. Continue diet modification and Imodium as needed. Bowel frequency. Patient meeting with dietitian regarding strategies to prevent further weight loss. Toxicity within expected parameters. Continue radiation treatment as planned. Sherrie Monson MD documented in this encounter [facility] 11-29-2024 History of Presen t illness Narrative Oncology Nutrition Therapy Reassessment RECOMMENDED MALNUTRITION DIAGNOSIS: NO MALNUTRITION IDENTIFIED Some elements copied from my note on 10/27/2024, have been updated and all reflect current decision making from today, 11/29/2024 Nutrition Diagnosis: Increased protein and energy needs related to hypermetabolic disease process as evidenced by need for weight maintenance and preservation of muscle mass. Nutrition Intervention: -continue small frequent meals/snacks - eat around the clock every 3 hours versus waiting on hunger cues -include lean protein source at each meal/snack -encouraged adequate hydration -aim for 60-64 ounces non-caffeine containing fluids -discussed oral nutrition supplements -if desired may trial ensure complete or Orgain -continue calorie/protein boosting techniques at meals/snacks Nutrition Monitoring & Evaluation: -PO Intake -Wt status -BM's -Biochemical Markers -Plan of care Date of last encounter: October 27, 2024 Patient met goal(s): Yes Patient's current symptoms are: None Patient presents for nutrition counseling for: rectal cancer Current Treatment: RT + Xeloda Previous Treatment(s): n/a Pt denies any chewing/swallowing issues, denies current N/V/D/C. Pt states constipation relieved and managed with miralax. He is starting to get an urgency sensation likely due to the radiation. Pt's weight remains stable. Pt endorses good appetite and intakes. He is eating a variety of foods. He is still not a big breakfast or morning eater so is asking if ONS would be a good idea. Discussed could trial for tolerance and if he likes could something to incorporate in the mornings. Pt verbalized understanding. Thank you for allowing me to participate in the care of this pt. Readiness to Learn: Cognitive ability: Alert and oriented Motivation to learn: Interested Family support: High - Very involved in pt care Instruction provided to: Patient and family member Patient learns best by: Individual Instruction Factors affecting learning: None Physical limitations affecting learning: None Educational materials provided: none this visit Anthropometrics: Height: Last 1 Encounter Ht Readings: Date: Ht: 11/22/2024 171.5 cm (5' 7.52 ) Current weight: Last 1 Encounter Wt Readings: Date: Wt: 11/22/2024 53.6 kg (118 lb 2.7 oz) Estimated body mass index is 18.2 kg/m as calculated from the following: Height as of 11/22/24: 171.5 cm (5' 7.52 ). Weight as of 11/22/24: 53.5 kg (118 lb). Resting Metabolic Rate: 1287 Weight Change: no recent significant changes noted Dosing Weight: 53.6 kg Estimated kilocalorie needs: 0129-9642 kilocalories determined by 30-35 kcal/kg Estimated protein needs: 64-80 grams determined by 1.2-1.5 g/kg Dosing weight Estimated fluid needs: ~8909-3071 milliliters based on 1 mL per kcal (unless otherwise indicated) Nutrition Focused Physical Exam: Unable to perform exam due to potential for patient discomfort (physical/emotional), will re-attempt during reassessment. Potential Signs of Inflammation: chronic condition Allergies: Patient has no known allergies. Medications: Current Outpatient Medications Medication Sig Dispense Refill prochlorperazine (COMPAZINE) 10 mg tablet Take 1 tablet by mouth every 6 hours as needed. 100 tablet 2 ondansetron (ZOFRAN) 8 mg tablet Take 1 tablet by mouth every 8 hours as needed for nausea/vomiting. 90 tablet 2 polyethylene glycol 3350 (MIRALAX ORAL) Take 1 Dose by mouth once daily as needed (contstipation). capecitabine (XELODA) 150 mg tablet Take 2 tablets (300 mg) by mouth two times a day with 1 other capecitabine prescription for 1,300 mg total. 120 tablet 0 capecitabine (XELODA) 500 mg tablet Take 2 tablets (1,000 mg) by mouth two times a day with 1 other capecitabine prescription for 1,300 mg total. 120 tablet 0 No current facility-administered medications for this visit. Need for Follow up: will continue to follow Referred by: Liam SCHUMACHER Billing Type: Re-assess/15 min 2 units Time Spent with Patient: 30 minutes Signed by: Joyce Valles RD, CONTENT ENGINEERJONO documented in this encounter [facility] 11-29-2024 Note HNO ID: [id number] Author: JOYCE VALLES RD Service: ? Author Type: Registered Dietitian Type: Progress Notes Filed: 11/29/2024 09:57 Note Text: Oncology Nutrition Therapy Reassessment RECOMMENDED MALNUTRITION DIAGNOSIS: NO MALNUTRITION IDENTIFIED Some elements copied from my note on 10/27/2024, have been updated and all reflect current decision making from today, 11/29/2024 Nutrition Diagnosis: Increased protein and energy needs related to hypermetabolic disease process as evidenced by need for weight maintenance and preservation of muscle mass. Nutrition Intervention: -continue small frequent meals/snacks - eat around the clock every 3 hours versus waiting on hunger cues -include lean protein source at each meal/snack -encouraged adequate hydration -aim for 60-64 ounces non-caffeine containing fluids -discussed oral nutrition supplements -if desired may trial ensure complete or Orgain -continue calorie/protein boosting techniques at meals/snacks Nutrition Monitoring AND Evaluation: -PO Intake -Wt status -BM's -Biochemical Markers -Plan of care Date of last encounter: October 27, 2024 Patient met goal(s): Yes Patient's current symptoms are: None Patient presents for nutrition counseling for: rectal cancer Current Treatment: RT + Xeloda Previous Treatment(s): n/a Pt denies any chewing/swallowing issues, denies current N/V/D/C. Pt states constipation relieved and managed with miralax. He is starting to get an urgency sensation likely due to the radiation. Pt's weight remains stable. Pt endorses good appetite and intakes. He is eating a variety of foods. He is still not a big breakfast or morning eater so is asking if ONS would be a good idea. Discussed could trial for tolerance and if he likes could something to incorporate in the mornings. Pt verbalized understanding. Thank you for allowing me to participate in the care of this pt. Readiness to Learn: Cognitive ability: Alert and oriented Motivation to learn: Interested Family support: High - Very involved in pt care Instruction provided to: Patient and family member Patient learns best by: Individual Instruction Factors affecting learning: None Physical limitations affecting learning: None Educational materials provided: none this visit Anthropometrics: Height: Last 1 Encounter Ht Readings: Date: Ht: 11/22/2024 171.5 cm (5' 7.52 ) Current weight: Last 1 Encounter Wt Readings: Date: Wt: 11/22/2024 53.6 kg (118 lb 2.7 oz) Estimated body mass index is 18.2 kg/m? as calculated from the following: Height as of 11/22/24: 171.5 cm (5' 7.52 ). Weight as of 11/22/24: 53.5 kg (118 lb). Resting Metabolic Rate: 1287 Weight Change: no recent significant changes noted Dosing Weight: 53.6 kg Estimated kilocalorie needs: 4566-5291 kilocalories determined by 30-35 kcal/kg Estimated protein needs: 64-80 grams determined by 1.2-1.5 g/kg Dosing weight Estimated fluid needs: ~0312-2509 milliliters based on 1 mL per kcal (unless otherwise indicated) Nutrition Focused Physical Exam: Unable to perform exam due to potential for patient discomfort (physical/emotional), will re-attempt during reassessment. Potential Signs of Inflammation: chronic condition Allergies: Patient has no known allergies. Medications: Current Outpatient Medications Medication Sig Dispense Refill prochlorperazine (COMPAZINE) 10 mg tablet Take 1 tablet by mouth every 6 hours as needed. 100 tablet 2 ondansetron (ZOFRAN) 8 mg tablet Take 1 tablet by mouth every 8 hours as needed for nausea/vomiting. 90 tablet 2 polyethylene glycol 3350 (MIRALAX ORAL) Take 1 Dose by mouth once daily as needed (contstipation). capecitabine (XELODA) 150 mg tablet Take 2 tablets (300 mg) by mouth two times a day with 1 other capecitabine prescription for 1,300 mg total. 120 tablet 0 capecitabine (XELODA) 500 mg tablet Take 2 tablets (1,000 mg) by mouth two times a day with 1 other capecitabine prescription for 1,300 mg total. 120 tablet 0 No current facility-administered medications for this visit. Need for Follow up: will continue to follow Referred by: Liam SCHUMACHER Billing Type: Re-assess/15 min 2 units Time Spent with Patient: 30 minutes Signed by: Joyce Valles RD, CONTENT ENGINEER, LD [facility] 11-29-2024 Note Education (NUTRSA) BENTLEY GONZALEZ ([id number]) 1960 M Date Time Provider Department 11/29/24 9:15 AM JOYCE VALLES Reason for Visit: Nutrition Assessment [1591] Primary Visit Diagnosis:Rectal cancer (HCC) [C20] During your visit today, we recorded the following information about you: Allergies As of Date: 11/29/2024 (No Known Allergies) Date Reviewed: 11/29/2024 Reviewed by: Joyce Valles RD - Fully Assessed Prescriptions as of 11/29/2024 - prochlorperazine (COMPAZINE) 10 mg tablet Take 1 tablet by mouth every 6 hours as needed. - ondansetron (ZOFRAN) 8 mg tablet Take 1 tablet by mouth every 8 hours as needed for nausea/vomiting. - polyethylene glycol 3350 (MIRALAX ORAL) Take 1 Dose by mouth once daily as needed (contstipation). - capecitabine (XELODA) 150 mg tablet Take 2 tablets (300 mg) by mouth two times a day with 1 other capecitabine prescription for 1,300 mg total. - capecitabine (XELODA) 500 mg tablet Take 2 tablets (1,000 mg) by mouth two times a day with 1 other capecitabine prescription for 1,300 mg total. Encounter Status:Closed by JOYCE VALLES on 11/29/[address] [facility] 11-25-2024 Telephone encounter Note TOXICITY CHECK SYMPTOM ASSESSMENT The patient is on Xeloda with radiation Headache: No Dizziness: No Mouth or throat pain: No Appetite: no changes in appetite, appetite good Taste changes: No Nausea: No Weight gain/loss: No Episodes of palpitations/chest discomfort/pressure/pain No Shortness of breath: No Diarrhea: no Constipation: no pt states he takes 1/2 scoop of miralax daily to keep his bowels regular Pain: No=0 (pain 0 on a scale of 0-10). Fever: No Chills: No Skin changes: No Denies HFS Itching: No Musculoskeletal/joint changes/issues No Bleeding issues: No Activity Level (0-100%): tires more easily but doing his everyday things like normal Do you need to take naps? No Does the patient need interventions or same day appointment:No Reinforced CURRENT treatment education based on current and anticipated symptoms. Discussed port/line care and patient verbalizes understanding: Not Applicable Patient instructed to contact office or after hours Hematology/Oncology fellow for: temperature >= 100.4; questions or concerns. Patient verbalized understanding of when to seek medical attention and after hours number protocol. Rebecca Ballard RN [facility] Work Phone: 11-25-2024 Miscellaneous Notes TOXICITY CHECK SYMPTOM ASSESSMENT The patient is on Xeloda with radiation Headache: No Dizziness: No Mouth or throat pain: No Appetite: no changes in appetite, appetite good Taste changes: No Nausea: No Weight gain/loss: No Episodes of palpitations/chest discomfort/pressure/pain No Shortness of breath: No Diarrhea: no Constipation: no pt states he takes 1/2 scoop of miralax daily to keep his bowels regular Pain: No=0 (pain 0 on a scale of 0-10). Fever: No Chills: No Skin changes: No Denies HFS Itching: No Musculoskeletal/joint changes/issues No Bleeding issues: No Activity Level (0-100%): tires more easily but doing his everyday things like normal Do you need to take naps? No Does the patient need interventions or same day appointment:No Reinforced CURRENT treatment education based on current and anticipated symptoms. Discussed port/line care and patient verbalizes understanding: Not Applicable Patient instructed to contact office or after hours Hematology/Oncology fellow for: temperature >= 100.4; questions or concerns. Patient verbalized understanding of when to seek medical attention and after hours number protocol. Rebecca Ballard RN documented in this encounter [facility] 11-22-2024 Instructions Sancho Sánchez MD - 11/22/2024 9:34 AM EST Continue radiation and Xeloda F/u in 2 weeks documented in this encounter [facility] 11-22-2024 History of Presen t illness Narrative Images from the original note were not included. PATIENT NAME: Bentley Gonzalez [facility] NO.: [id number] ATTENDING PHYSICIAN: Sancho Sánchez MD DATE OF SERVICE: 11/22/[address] Raz Tucker [id number] [facility] [id number] thank you for referring Bentley Gonzalez for an opinion regarding Rectal cancer. Some of the elements of this note have been copied from my previous progress note dated 11/08/24 . All the information has been reviewed carefully. CHIEF COMPLAINT: Rectal cancer HPI: Bentley Gonzalez is a 64 year old year old male with no significant PMH referred to us for rectal mass. He reports months of hematochezia as well as change in bowel habits prompting him to present for endoscopic evaluation. On colonoscopy, he was found to have a rectal mass on LUIS ANTONIO and on endoscopic evaluation, pediatric scope could not be advanced past the mass. Biopsy was taken and result showed adenoca. He presents for further evaluation and management. Patient reports that his difficulty defecating included small pellet-like stools, ~10 times a day, which has improved since he started taking MiraLAX daily. He now has large volume stool but still go multiple times a day. His hematochezia is also resolved. Seen by surgeon . Scheduled for scans on 10/27/23. No family history of colon ca. Works in [employer] and [employer]. Smokes 1 pk/day for many yrs. 11/01/24: - CT chest (10/27/24)- Few scattered pulmonary nodules measuring up to 4 mm. Continued follow-up is recommended. - CT A/P (10/27/24)- 5 cm rectal mass with metastatic mesorectal and superior rectal lymphadenopathy. Indeterminate subcentimeter low-attenuation lesions in the liver. Attention on follow-up is recommended. 1.7 cm above water attenuation lesion in the left kidney. Consider ultrasound for further assessment versus attention on follow-up - MRI rectum (10/29/24)- 4.7 cm mid rectal mass extending into the mesorectal fat with multiple suspicious mesorectal lymph nodes. Stage: T3d N+ MRF: Involved (tumor margin within 1 mm of MRF) Sphincter involvement: No. Suspicious extra mesorectal lymph nodes: No. EMVI: Yes - Able to pass bowel movements with miralax - No major complaints. 11/08/24: - Started radiation today - Doing well - No major complaints - Able to pass bowel movements 11/22/24: - Doing well - C/o intermittent diarrhea - Week 3 radiation today - Scheduled for port on december 08. - Last radiation is on December 15. - Smokes 1pk for 3 days. Current Outpatient Medications Medication Sig prochlorperazine (COMPAZINE) 10 mg tablet Take 1 tablet by mouth every 6 hours as needed. ondansetron (ZOFRAN) 8 mg tablet Take 1 tablet by mouth every 8 hours as needed for nausea/vomiting. polyethylene glycol 3350 (MIRALAX ORAL) Take 1 Dose by mouth once daily as needed (contstipation). capecitabine (XELODA) 150 mg tablet Take 2 tablets (300 mg) by mouth two times a day with 1 other capecitabine prescription for 1,300 mg total. capecitabine (XELODA) 500 mg tablet Take 2 tablets (1,000 mg) by mouth two times a day with 1 other capecitabine prescription for 1,300 mg total. No current facility-administered medications for this visit. ALLERGIES No Known Allergies No past medical history on file. PAST SURGICAL HISTORY Procedure Laterality Date TONSILLECTOMY & ADENOIDECTOMY <AGE 10 FAMILY HISTORY Problem Relation Age of Onset Breast Cancer Mother Lung Cancer Father Cancer Sister Social History Tobacco Use Smoking status: Every Day Current packs/day: 1.00 Average packs/day: 1 pack/day for 54.1 years (54.1 ttl pk-yrs) Types: Cigarettes Start date: 1970 Smokeless tobacco: Never Vaping Use Vaping status: Never Used Substance Use Topics Alcohol use: Yes Comment: very seldom Drug use: Not Currently REVIEW OF SYSTEMS GENERAL: No weight loss, malaise or fevers. No night sweats. HEENT: Negative for headaches, No changes in hearing or vision, no nose bleeds or other nasal problems. RESPIRATORY: Negative for cough, wheezing and shortness of breath CARDIOVASCULAR: Negative for chest pain, leg swelling and palpitations GI: Negative for abdominal discomfort, blood in stools or black stools and change in bowel habits : Negative for dysuria, frequency and incontinence MUSCULOSKELETAL: Negative for joint pain or swelling, back pain, and muscle pain. SKIN: Negative for lesions, rash, and itching. HEMATOLOGY/LYMPHOLOGY Negative for prolonged bleeding, bruising easily, and swollen nodes. NEURO: Negative for numbness or tingling of hands/feet. No weakness. PHYSICAL EXAMINATION: There were no vitals taken for this visit. There were no vitals taken for this visit. No data found for this vital: Wt General appearance:ECOG PERFORMANCE STATUS: 0- Fully active, able to carry on all pre-disease performance w/o restriction. Patient in NAD. Skin: Skin color, texture, turgor normal. No rashes or lesions. Eyes: Anicteric sclera. Pupils are equally round and reactive to light. Extraocular movements are intact. Breast: No palpable breast masses. No nipple change or discharge. Lymph Nodes: No cervical, supraclavicular, axillary or inguinal adenopathy. Oropharynx: Lips, mucosa, and tongue normal. Back: No pain to percussion. Negative SLR test Lungs clear to auscultation, No wheezing or rhonchi Heart: RRR without murmur, gallop, or rubs. Abdomen soft, non-tender. No masses, organomegaly Extremities: No deformities. No edema Neuro: Gait and speech normal. Reflexes normal and symmetric. Muscular strength intact. Sensation grossly intact. Rectal: Deferred : Deferred LABS: Glucose (mg/dL) Date Value 11/08/2024 94 Potassium (mmol/L) Date Value 11/08/2024 4.0 Sodium (mmol/L) Date Value 11/08/2024 134 Chloride (mmol/L) Date Value 11/08/2024 100 CO2 (mmol/L) Date Value 11/08/2024 22 Creatinine (mg/dL) Date Value 11/08/2024 0.84 BUN (mg/dL) Date Value 11/08/2024 14 Anion Gap (mmol/L) Date Value 11/08/2024 12 Calcium, Total (mg/dL) Date Value 11/08/2024 9.5 Protein, Total (g/dL) Date Value 11/08/2024 6.8 Albumin (g/dL) Date Value 11/08/2024 4.4 Bilirubin, Total (mg/dL) Date Value 11/08/2024 0.5 Alkaline Phosphatase (U/L) Date Value 11/08/2024 90 AST (U/L) Date Value 11/08/2024 14 ALT (U/L) Date Value 11/08/2024 9 WBC Date Value Ref Range Status 11/08/2024 7.39 3.70 - 11.00 k/uL Final RBC Date Value Ref Range Status 11/08/2024 4.97 4.20 - 6.00 m/uL Final Hemoglobin Date Value Ref Range Status 11/08/2024 15.3 13.0 - 17.0 g/dL Final Hematocrit Date Value Ref Range Status 11/08/2024 46.0 39.0 - 51.0 % Final MCV Date Value Ref Range Status 11/08/2024 92.6 80.0 - 100.0 fL Final MCH Date Value Ref Range Status 11/08/2024 30.8 26.0 - 34.0 pg Final MCHC Date Value Ref Range Status 11/08/2024 33.3 30.5 - 36.0 g/dL Final RDW-CV Date Value Ref Range Status 11/08/2024 13.1 11.5 - 15.0 % Final Platelet Count Date Value Ref Range Status 11/08/2024 289 150 - 400 k/uL Final MPV Date Value Ref Range Status 11/08/2024 8.9 (L) 9.0 - 12.7 fL Final Abs Neut Date Value Ref Range Status 11/08/2024 4.87 1.45 - 7.50 k/uL Final Lymphocytes % Date Value Ref Range Status 11/08/2024 22.6 % Final Abs Lymph Date Value Ref Range Status 11/08/2024 1.67 1.00 - 4.00 k/uL Final Monocytes % Date Value Ref Range Status 11/08/2024 8.8 % Final Abs [place] Date Value Ref Range Status 11/08/2024 0.65 <0.87 k/uL Final Abs Eosin Date Value Ref Range Status 11/08/2024 0.14 <0.46 k/uL Final Basophils % Date Value Ref Range Status 11/08/2024 0.5 % Final Abs Baso Date Value Ref Range Status 11/08/2024 0.04 <0.11 k/uL Final PATH: IMAGING: CT chest (10/27/24)- Few scattered pulmonary nodules measuring up to 4 mm. Continued follow-up is recommended. - CT A/P (10/27/24)- 5 cm rectal mass with metastatic mesorectal and superior rectal lymphadenopathy. Indeterminate subcentimeter low-attenuation lesions in the liver. Attention on follow-up is recommended. 1.7 cm above water attenuation lesion in the left kidney. Consider ultrasound for further assessment versus attention on follow-up - MRI rectum (10/29/24)- 4.7 cm mid rectal mass extending into the mesorectal fat with multiple suspicious mesorectal lymph nodes. Stage: T3d N+ MRF: Involved (tumor margin within 1 mm of MRF Sphincter involvement: No. Suspicious extra mesorectal lymph nodes: No. EMVI: Yes ASSESSMENT AND PLAN: Bentley Gonzalez is a 64 year old year old male referred to us for newly diagnosed rectal adenoca. PS 0. Rectal mass biopsy showed invasive moderately differentiated adenoca. MRI rectum (10/29/24)- 4.7 cm mid rectal mass extending into the mesorectal fat with multiple suspicious mesorectal lymph nodes. Stage: T3d N+ . MMR proficient - No evidence of metastases on CT C/A/P. - Final staging is T3 N2a M0. Stage IIIB - He is starting radiation on 11/08/24 - Will start him on Xeloda 1300mg BID on the start day of radiation - Started radiation on 11/08/24. PLAN: - Doing well - Continue radiation - Continue Xeloda - Tolerating well so far without any major toxicity - Scheduled for port on december 08. - Last radiation is on December 15. - Blood work today is unremarkable. - Targeted oncology panel did not show any evidence of actionable mutations. - All his questions answered in detail - F/u in [address] Raz Tucker [id number] [place] [id number] thank you for allowing me to participate in Bentley Gonzalez care, if there are any questions or concerns please do not hesitate to contact me at the number below. I spent a total of 30 minutes on the date of the service which included preparing to see the patient, [id number] patient care, completing clinical documentation, obtaining and/or reviewing separately obtained history, performing a medically appropriate examination, counseling and educating the patient/family/caregiver, ordering medications, tests, or procedures, communicating with other HCPs (not separately reported), independently interpreting results (not separately reported), communicating results to the patient/family/caregiver, and care coordination (not separately reported). Sancho Sánchez MD. Hematology/Medical Oncology [facility] [phone] CC: documented in this encounter [facility] 11-22-2024 Note HNO ID: [id number] Author: SANCHO SÁNCHEZ MD Service: ? Author Type: Physician Type: Progress Notes Filed: 11/22/2024 10:05 Note Text: PATIENT NAME: Bentley Gonzalez [facility] NO.: [id number] ATTENDING PHYSICIAN: Sancho Sánchez MD DATE OF SERVICE: 11/22/[address] Raz Tucker [id number] [address] [place] [id number] thank you for referring Bentley Gonzalez for an opinion regarding Rectal cancer. Some of the elements of this note have been copied from my previous progress note dated 11/08/24 . All the information has been reviewed carefully. CHIEF COMPLAINT: Rectal cancer HPI: Bentlye Gonzalez is a 64 year old year old male with no significant PMH referred to us for rectal mass. He reports months of hematochezia as well as change in bowel habits prompting him to present for endoscopic evaluation. On colonoscopy, he was found to have a rectal mass on LUIS ANTONIO and on endoscopic evaluation, pediatric scope could not be advanced past the mass. Biopsy was taken and result showed adenoca. He presents for further evaluation and management. Patient reports that his difficulty defecating included small pellet-like stools, ~10 times a day, which has improved since he started taking MiraLAX daily. He now has large volume stool but still go multiple times a day. His hematochezia is also resolved. Seen by surgeon . Scheduled for scans on 10/27/23. No family history of colon ca. Works in [employer] and [employer]. Smokes 1 pk/day for many yrs. 11/01/24: - CT chest (10/27/24)- Few scattered pulmonary nodules measuring up to 4 mm. Continued follow-up is recommended. - CT A/P (10/27/24)- 5 cm rectal mass with metastatic mesorectal and superior rectal lymphadenopathy. Indeterminate subcentimeter low-attenuation lesions in the liver. Attention on follow-up is recommended. 1.7 cm above water attenuation lesion in the left kidney. Consider ultrasound for further assessment versus attention on follow-up - MRI rectum (10/29/24)- 4.7 cm mid rectal mass extending into the mesorectal fat with multiple suspicious mesorectal lymph nodes. Stage: T3d N+ MRF: Involved (tumor margin within 1 mm of MRF) Sphincter involvement: No. Suspicious extra mesorectal lymph nodes: No. EMVI: Yes - Able to pass bowel movements with miralax - No major complaints. 11/08/24: - Started radiation today - Doing well - No major complaints - Able to pass bowel movements 11/22/24: - Doing well - C/o intermittent diarrhea - Week 3 radiation today - Scheduled for port on december 08. - Last radiation is on December 15. - Smokes 1pk for 3 days. Current Outpatient Medications Medication Sig prochlorperazine (COMPAZINE) 10 mg tablet Take 1 tablet by mouth every 6 hours as needed. ondansetron (ZOFRAN) 8 mg tablet Take 1 tablet by mouth every 8 hours as needed for nausea/vomiting. polyethylene glycol 3350 (MIRALAX ORAL) Take 1 Dose by mouth once daily as needed (contstipation). capecitabine (XELODA) 150 mg tablet Take 2 tablets (300 mg) by mouth two times a day with 1 other capecitabine prescription for 1,300 mg total. capecitabine (XELODA) 500 mg tablet Take 2 tablets (1,000 mg) by mouth two times a day with 1 other capecitabine prescription for 1,300 mg total. No current facility-administered medications for this visit. ALLERGIES No Known Allergies No past medical history on file. PAST SURGICAL HISTORY Procedure Laterality Date TONSILLECTOMY AND ADENOIDECTOMY FAMILY HISTORY Problem Relation Age of Onset Breast Cancer Mother Lung Cancer Father Cancer Sister Social History Tobacco Use Smoking status: Every Day Current packs/day: 1.00 Average packs/day: 1 pack/day for 54.1 years (54.1 ttl pk-yrs) Types: Cigarettes Start date: 1970 Smokeless tobacco: Never Vaping Use Vaping status: Never Used Substance Use Topics Alcohol use: Yes Comment: very seldom Drug use: Not Currently REVIEW OF SYSTEMS GENERAL: No weight loss, malaise or fevers. No night sweats. HEENT: Negative for headaches, No changes in hearing or vision, no nose bleeds or other nasal problems. RESPIRATORY: Negative for cough, wheezing and shortness of breath CARDIOVASCULAR: Negative for chest pain, leg swelling and palpitations GI: Negative for abdominal discomfort, blood in stools or black stools and change in bowel habits : Negative for dysuria, frequency and incontinence MUSCULOSKELETAL: Negative for joint pain or swelling, back pain, and muscle pain. SKIN: Negative for lesions, rash, and itching. HEMATOLOGY/LYMPHOLOGY Negative for prolonged bleeding, bruising easily, and swollen nodes. NEURO: Negative for numbness or tingling of hands/feet. No weakness. PHYSICAL EXAMINATION: There were no vitals taken for this visit. There were no vitals taken for this visit. No data found for this vital: Wt General appearance:ECOG PERFORMANCE STATUS: 0- Fully active, able to carry o (more content not included)... [facility] 11-22-2024 Note HNO ID: [id number] Author: Sherrie MONSON MD Service: ? Author Type: Physician Type: Progress Notes Filed: 11/22/2024 09:33 Note Text: Radiation Oncology - On Treatment Review (OTR) Note PATIENT NAME: Bentley Gonzalez PATIENT DIAGNOSIS: Locally advanced adenocarcinoma the rectum. COURSE: definitive, pre-operative, and concurrent chemotherapy AREA TREATED: Pelvis/Rectum CURRENT DOSE: 1980 cGy in 11 fx PLANNED DOSE: 5040 cGy in 28 fx SUBJECTIVE: Doing well. Feels bowel function has improved easier to pass. No bladder pain. EXAM: 11/22/24911 BP: 136/82 Pulse: 85 Resp: 18 SpO2: 99% Weight: 53.6 kg (118 lb 2.7 oz) KPS: 100 General Appearance: Alert and oriented. No acute distress. Radiation dermatitis: No IMAGING/LAB RESULTS: Hemoglobin (g/dL) Date Value 11/08/2024 15.3 Hematocrit (%) Date Value 11/08/2024 46.0 WBC (k/uL) Date Value 11/08/2024 7.39 Platelet Count (k/uL) Date Value 11/08/2024 289 Treatment chart checked: Yes Patient treatment site reviewed and verified:Yes Port films reviewed and current:Yes Medications started: None ASSESSMENT/PLAN: Clinically stable. Toxicity within expected parameters. Continue radiation treatment as planned. Sherrie Monson MD [facility] 11-22-2024 History of Presen t illness Narrative Radiation Oncology - On Treatment Review (OTR) Note PATIENT NAME: Bentley Gonzalez PATIENT DIAGNOSIS: Locally advanced adenocarcinoma the rectum. COURSE: definitive, pre-operative, and concurrent chemotherapy AREA TREATED: Pelvis/Rectum CURRENT DOSE: 1980 cGy in 11 fx PLANNED DOSE: 5040 cGy in 28 fx SUBJECTIVE: Doing well. Feels bowel function has improved easier to pass. No bladder pain. EXAM: 11/22/24911 BP: 136/82 Pulse: 85 Resp: 18 SpO2: 99% Weight: 53.6 kg (118 lb 2.7 oz) KPS: 100 General Appearance: Alert and oriented. No acute distress. Radiation dermatitis: No IMAGING/LAB RESULTS: Hemoglobin (g/dL) Date Value 11/08/2024 15.3 Hematocrit (%) Date Value 11/08/2024 46.0 WBC (k/uL) Date Value 11/08/2024 7.39 Platelet Count (k/uL) Date Value 11/08/2024 289 Treatment chart checked: Yes Patient treatment site reviewed and verified:Yes Port films reviewed and current:Yes Medications started: None ASSESSMENT/PLAN: Clinically stable. Toxicity within expected parameters. Continue radiation treatment as planned. Sherrie Monsno MD documented in this encounter [facility] 11-15-2024 Telephone encounter Note ORAL ANTI-CANCER AGENTS FOLLOW-UP PHONE CALL/VISIT Patient identified by name and date of . YES Patient is on cycle 1, week 1, day 6 of Capecitabine (Xeloda) concurrent with radiation for Colon / Rectal Cancer. SYMPTOM ASSESSMENT Headache: No Visual Changes: No Dizziness: No Do you have any periods of confusion? No Mouth or throat pain: No Appetite: no changes in appetite, appetite good Taste changes: No Nausea: No Vomiting: No Heartburn: No. Weight gain/loss: No Episodes of palpitations/chest discomfort/pressure/pain No Shortness of breath: No Cough: No Diarrhea: no Constipation: pt states he had a little constipation over the weekend. States he takes miralax daily and his stools seemed to be pretty loose, so he held his miralax for a couple days and then developed constipation. Pt took a small dose of miralax last night and had some relief today. Is planning on taking a small dose again tonight. Bladder/Urinary Changes: None Pain: No=0 (pain 0 on a scale of 0-10). Fever: No Chills: No Numbness/weakness: No Skin changes: No Denies hand foot syndrome Musculoskeletal/joint changes/issues No Bleeding issues: No Activity Level (0-100%): normal Do you need to take naps? No Does the patient need interventions or same day appointment:No ADDITIONAL FOLLOW UP: The next outreach call is due on: prn and was scheduled prn The following lab tests are due: CBC, CMP Verified patient is aware of next appointment in the cancer center: Yes. Verified patient verbalized how to correctly refill the oral agent prescription. Yes Does the patient have any financial difficulties affording this medication? No Patient verbalizes understanding of when to seek Medical Attention? YES Patient verbalizes understanding of after-hours and weekend phone number? YES Patient verbalized importance of medication compliance in taking the oral agent as prescribed. Patient instructed to call if unable to comply. Rebecca Ballard RN [facility] Work Phone: 11-15-2024 Miscellaneous Notes ORAL ANTI-CANCER AGENTS FOLLOW-UP PHONE CALL/VISIT Patient identified by name and date of . YES Patient is on cycle 1, week 1, day 6 of Capecitabine (Xeloda) concurrent with radiation for Colon / Rectal Cancer. SYMPTOM ASSESSMENT Headache: No Visual Changes: No Dizziness: No Do you have any periods of confusion? No Mouth or throat pain: No Appetite: no changes in appetite, appetite good Taste changes: No Nausea: No Vomiting: No Heartburn: No. Weight gain/loss: No Episodes of palpitations/chest discomfort/pressure/pain No Shortness of breath: No Cough: No Diarrhea: no Constipation: pt states he had a little constipation over the weekend. States he takes miralax daily and his stools seemed to be pretty loose, so he held his miralax for a couple days and then developed constipation. Pt took a small dose of miralax last night and had some relief today. Is planning on taking a small dose again tonight. Bladder/Urinary Changes: None Pain: No=0 (pain 0 on a scale of 0-10). Fever: No Chills: No Numbness/weakness: No Skin changes: No Denies hand foot syndrome Musculoskeletal/joint changes/issues No Bleeding issues: No Activity Level (0-100%): normal Do you need to take naps? No Does the patient need interventions or same day appointment:No ADDITIONAL FOLLOW UP: The next outreach call is due on: prn and was scheduled prn The following lab tests are due: CBC, CMP Verified patient is aware of next appointment in the cancer center: Yes. Verified patient verbalized how to correctly refill the oral agent prescription. Yes Does the patient have any financial difficulties affording this medication? No Patient verbalizes understanding of when to seek Medical Attention? YES Patient verbalizes understanding of after-hours and weekend phone number? YES Patient verbalized importance of medication compliance in taking the oral agent as prescribed. Patient instructed to call if unable to comply. Rebecca Ballard RN documented in this encounter [facility] 11-15-2024 Note HNO ID: [id number] Author: Sherrie MONSON MD Service: ? Author Type: Physician Type: Progress Notes Filed: 11/15/2024 09:13 Note Text: Radiation Oncology - On Treatment Review (OTR) Note PATIENT NAME: Bentley Gonzalez PATIENT DIAGNOSIS: Locally advanced adenocarcinoma the rectum. COURSE: definitive, pre-operative, and concurrent chemotherapy AREA TREATED: Pelvis/Rectum CURRENT DOSE: 1080 cGy in 6 fx PLANNED DOSE: 5040 cGy in 28 fx SUBJECTIVE: Doing well. Feels rectal function has improved. No bleeding. Mild constipation. EXAM: 11/15/24903 BP: 128/74 Pulse: 85 Resp: 18 Temp: (!) 35.9 ?C (96.7 ?F) SpO2: 100% Weight: 53.5 kg (117 lb 15.1 oz) KPS: 100 General Appearance: Alert and oriented. No acute distress. Radiation dermatitis: No IMAGING/LAB RESULTS: None Treatment chart checked: Yes Patient treatment site reviewed and verified:Yes Port films reviewed and current:Yes Medications started: None ASSESSMENT/PLAN: Clinically stable. Toxicity within expected parameters. Continue radiation treatment as planned. Sherrie Monson MD [facility] 11-15-2024 History of Presen t illness Narrative Radiation Oncology - On Treatment Review (OTR) Note PATIENT NAME: Bentley Gonzalez PATIENT DIAGNOSIS: Locally advanced adenocarcinoma the rectum. COURSE: definitive, pre-operative, and concurrent chemotherapy AREA TREATED: Pelvis/Rectum CURRENT DOSE: 1080 cGy in 6 fx PLANNED DOSE: 5040 cGy in 28 fx SUBJECTIVE: Doing well. Feels rectal function has improved. No bleeding. Mild constipation. EXAM: 11/15/24903 BP: 128/74 Pulse: 85 Resp: 18 Temp: (!) 35.9 C (96.7 F) SpO2: 100% Weight: 53.5 kg (117 lb 15.1 oz) KPS: 100 General Appearance: Alert and oriented. No acute distress. Radiation dermatitis: No IMAGING/LAB RESULTS: None Treatment chart checked: Yes Patient treatment site reviewed and verified:Yes Port films reviewed and current:Yes Medications started: None ASSESSMENT/PLAN: Clinically stable. Toxicity within expected parameters. Continue radiation treatment as planned. Sherrie Monson MD documented in this encounter [facility] 11-12-2024 Telephone encounter Note Bentley is here for radiation therapy today without c/o a runny nose today or yesterday after treatment. We reviewed that should not be a side effect of radiation therapy but to continue notifying our office with any new concerns or questions. Barbie Causey RN [facility] 11-12-2024 Miscellaneous Notes Bentley is here for radiation therapy today without c/o a runny nose today or yesterday after treatment. We reviewed that should not be a side effect of radiation therapy but to continue notifying our office with any new concerns or questions. Barbie Causey RN Pt calls stating he gets a runny nose after every radiation treatment, and then it goes away after a little while. Pt asking if this it to be expected? Please advise. He will be in for radiation later today if someone wants to answer this for him then. Thanks Rebecca Ballard RN documented in this encounter [facility] 11-11-2024 Telephone encounter Note Pt calls stating he gets a runny nose after every radiation treatment, and then it goes away after a little while. Pt asking if this it to be expected? Please advise. He will be in for radiation later today if someone wants to answer this for him then. Thanks Rebecca Ballard, RN [facility] Work Phone: 11-09-2024 Telephone encounter Note Jena called back and states she talked with patient and he has been scheduled for port placement on December 08 at 8 am. Bob Alves [facility] 11-09-2024 Miscellaneous Notes Jena called back and states she talked with patient and he has been scheduled for port placement on December 08 at 8 am. Bob Alves Left message on Jena's [employer] for update of port placement date. Bob Alves Faxed port request to Jena @ Dr. Mix's office November 08, 2024 12:56 PM Referring patient for port placement. Thanks Shirin! Bob Alves documented in this encounter [facility] 11-09-2024 Telephone encounter Note Left message on Jena's [employer] for update of port placement date. Bob Alves [facility] 11-09-2024 Note [facility] REFERRAL FOR ADD ITIONAL BIOMARKER AND MOLECULAR TESTING [facility] Comment on above: Request has been rec eived for evaluation and the results will be issued separately. 11-08-2024 Telephone encounter Note Faxed port request to Jena @ Dr. Mix's office November 08, 2024 12:56 PM [facility] 11-08-2024 Telephone encounter Note Referring patient for port placement. Thanks Shirin! Bob Alves [facility] 11-08-2024 Instructions Sancho Sánchez MD - 11/08/2024 9:46 AM EST Ordered port placement Start xeloda F/u in 2 weeks documented in this encounter [facility] 11-08-2024 Note HNO ID: [id number] Author: REBECCA BALLARD RN Service: ? Author Type: Registered Nurse Type: Progress Notes Filed: 11/08/2024 09:47 Note Text: ORAL ANTI-CANCER AGENTS EDUCATION patient and spouse here today for oral medication education of capecitabine for Colon / Rectal Cancer Anticipated/Scheduled start date: today READINESS TO LEARN Cognitive Ability: Alert and oriented Motivation to Learn: Interested Family Support: High - Very involved in pt care Instruction Provided to: Patient and Spouse Patient learns best by: Multiple Methods Factors affecting learning: None Physical limitation affecting learning: None HANDY ASSESSMENT: 1.) Verified that patient knows that the oral agents are for cancer and are taken by mouth. Yes 2.) Medication review completed during visit. Yes 3.) Patient is able to swallow pills. Yes 4.) Patient is able to read the drug label/information. Yes 5.) Patient is able to open the medication bottles and packages. Yes 6.) Has patient taken other pills for cancer? No 7.) Is patient experiencing any symptoms that would affect their ability to keep down pills, for example nausea or vomiting? No 8.) Verified that patient understands prescription delivery, benefit investigation and refill process. Yes Filling at [facility] DRUG-SPECIFIC EDUCATION: 1.) Verified patient knows the drug name. Yes 2.) Verified patient understands the dose and schedule of oral anti cancer agent. Yes 3.) Verified patient knows what to do if a medication dose is missed. Yes 4.) Verified patient understands where to store the drug. Yes 5.) Verified patient understands potential side effects and how to manage them. Yes 6.)Verified patient understands handling precautions of oral anti cancer agent. Yes 7.) Verified patient was given written instructions and understands when and whom to call with questions. Yes 8.) Verified patient understands where and how to return drug. Yes 9.) Verified patient received drug specific adult education handout and neutropenic wallet card Yes EVALUATE: The patient and spouse demonstrated an understanding of all the above education using the teach-back method. Yes Instructed to call us with any questions, concerns, and/or unresolved symptoms. Will continue to follow up and provide reinforcement of teaching topics as needed. Rebecca Ballard RN [facility] 11-08-2024 History of Present illness Narrative ORAL ANTI-CANCER AGENTS EDUCATION patient and spouse here today for oral medication education of capecitabine for Colon / Rectal Cancer Anticipated/Scheduled start date: today READINESS TO LEARN Cognitive Ability: Alert and oriented Motivation to Learn: Interested Family Support: High - Very involved in pt care Instruction Provided to: Patient and Spouse Patient learns best by: Multiple Methods Factors affecting learning: None Physical limitation affecting learning: None HANDY ASSESSMENT: 1.) Verified that patient knows that the oral agents are for cancer and are taken by mouth. Yes 2.) Medication review completed during visit. Yes 3.) Patient is able to swallow pills. Yes 4.) Patient is able to read the drug label/information. Yes 5.) Patient is able to open the medication bottles and packages. Yes 6.) Has patient taken other pills for cancer? No 7.) Is patient experiencing any symptoms that would affect their ability to keep down pills, for example nausea or vomiting? No 8.) Verified that patient understands prescription delivery, benefit investigation and refill process. Yes Filling at [facility] DRUG-SPECIFIC EDUCATION: 1.) Verified patient knows the drug name. Yes 2.) Verified patient understands the dose and schedule of oral anti cancer agent. Yes 3.) Verified patient knows what to do if a medication dose is missed. Yes 4.) Verified patient understands where to store the drug. Yes 5.) Verified patient understands potential side effects and how to manage them. Yes 6.)Verified patient understands handling precautions of oral anti cancer agent. Yes 7.) Verified patient was given written instructions and understands when and whom to call with questions. Yes 8.) Verified patient understands where and how to return drug. Yes 9.) Verified patient received drug specific adult education handout and neutropenic wallet card Yes EVALUATE: The patient and spouse demonstrated an understanding of all the above education using the teach-back method. Yes Instructed to call us with any questions, concerns, and/or unresolved symptoms. Will continue to follow up and provide reinforcement of teaching topics as needed. Rebecca Ballard RN Images from the original note were not included. [facility] Department of Pharmacy Oncology Pharmacy Medication Education Patient Name: Bentley Gonzalez Primary Oncologist: Gonzalo Diagnosis: Rectal Ca Bentley Gonzalez is a 64 year old patient and spouse here today for medication education for PO Capecitabine (Xeloda). Drug Interactions: Clinically significant interactions with chemotherapy, immunosuppression, or other standard of care treatment plan medications anticipated: No. There are no pertinent drug interactions identified. Patient was counseled accordingly. Allergies: Patient confirmed allergies documented in Epic are correct: Yes Was medication education provided?: Yes Medication Education: Administration and schedule: Take 1300 mg ( 2 x 500 mg tablets and 2 x 150 mg tablets) with food twice a day apx 12 hours apart Potential side effects discussed: anemia, appetite changes, bowel habit changes, diet, electrolyte disturbances, fatigue, hand-foot syndrome, infection, mucositis, nausea/vomitting, neutropenia, thrombocytopenia PO chemo: Verified patient understands where to store the drug. Yes Verified that patient understands prescription delivery, benefit investigation and refill process. Yes Was medication reconciliation performed?: Yes Changes made to medication list? No Current Outpatient Medications Medication Sig prochlorperazine (COMPAZINE) 10 mg tablet Take 1 tablet by mouth every 6 hours as needed. ondansetron (ZOFRAN) 8 mg tablet Take 1 tablet by mouth every 8 hours as needed for nausea/vomiting. polyethylene glycol 3350 (MIRALAX ORAL) Take by mouth. capecitabine (XELODA) 150 mg tablet Take 2 tablets (300 mg) by mouth two times a day with 1 other capecitabine prescription for 1,300 mg total. capecitabine (XELODA) 500 mg tablet Take 2 tablets (1,000 mg) by mouth two times a day with 1 other capecitabine prescription for 1,300 mg total. iv contrast (will be provided with radiology test) MRI Rectum Inject, intravenously, once for 1 dose. No IV access, insert saline lock prior to the beginning of sedation, infusion, injection of imaging exam. Discontinue saline lock post exam. If Pt has a central line or IVAD, may access for administration according to line specific nursing protocol. Once exam is complete flush line and de-access according to line specific nursing protocol in the MR contrast administration guidelines link. (Patient not taking: Reported on 10/18/2024) enteric contrast (will be provided with radiology test) MRI RECTUM WO/W. Administer, As Directed One Time Only, via Oral, Rectal, both Oral and Rectal, Enteric Tube, Stoma or Indwelling Catheter, Enteric Contrast as designated per enteric contrast guidelines (Patient not taking: Reported on 10/18/2024) iv contrast (will be provided with radiology test) CT Chest ABD/PEL-Inject, intravenously, once for 1 dose.No IV access, insert saline lock prior to the beginning of sedation, infusion, injection of imaging exam. Discontinue saline lock post exam. If Pt. has a central line or IVAD, may access for administration according to line specific nursing protocol. Once exam is complete flush line and de-access according to line specific nursing protocol in the CT contrast administration guidelines link. (Patient not taking: Reported on 10/18/2024) enteric contrast (will be provided with radiology test) For CT CHESTABD/PEL W IVCON Routine order Administer, As Directed One Time Only, via Oral, Rectal, both Oral and Rectal, Enteric Tube, Stoma or Indwelling Catheter, Enteric Contrast as designated per enteric contrast guidelines (Patient not taking: Reported on 10/18/2024) No current facility-administered medications for this visit. - Chemotherapy education was provided by a pharmacist NO - Thank you for allowing us to participate in the care of this patient. I spent 15 time (15 minute increments) with the patient Danishabhargavijuan Everett RPh Pager: documented in this encounter [facility] 11-08-2024 Miscellaneous Notes Addended by: ALEJANDRA EVERETT on: 11/08/2024 10:10 AM Modules accepted: Orders documented in this encounter [facility] 11-08-2024 Note Addended by: ALEJANDRA KYLE on: 11/08/2024 10:10 AM Modules accepted: Orders [facility] 11-08-2024 Note HNO ID: [id number] Author: ALEJANDRA EVERETT RPh Service: ? Author Type: Pharmacist Type: Progress Notes Filed: 11/08/2024 10:09 Note Text: [facility] Department of Pharmacy Oncology Pharmacy Medication Education Patient Name: Bentley Gonzalez Primary Oncologist: Gonzalo Diagnosis: Rectal Ca Bentley Gonzalez is a 64 year old patient and spouse here today for medication education for PO Capecitabine (Xeloda). Drug Interactions: Clinically significant interactions with chemotherapy, immunosuppression, or other standard of care treatment plan medications anticipated: No. There are no pertinent drug interactions identified. Patient was counseled accordingly. Allergies: Patient confirmed allergies documented in Epic are correct: Yes Was medication education provided?: Yes Medication Education: Administration and schedule: Take 1300 mg ( 2 x 500 mg tablets and 2 x 150 mg tablets) with food twice a day apx 12 hours apart Potential side effects discussed: anemia, appetite changes, bowel habit changes, diet, electrolyte disturbances, fatigue, hand-foot syndrome, infection, mucositis, nausea/vomitting, neutropenia, thrombocytopenia PO chemo: Verified patient understands where to store the drug. Yes Verified that patient understands prescription delivery, benefit investigation and refill process. Yes Was medication reconciliation performed?: Yes Changes made to medication list? No Current Outpatient Medications Medication Sig prochlorperazine (COMPAZINE) 10 mg tablet Take 1 tablet by mouth every 6 hours as needed. ondansetron (ZOFRAN) 8 mg tablet Take 1 tablet by mouth every 8 hours as needed for nausea/vomiting. polyethylene glycol 3350 (MIRALAX ORAL) Take by mouth. capecitabine (XELODA) 150 mg tablet Take 2 tablets (300 mg) by mouth two times a day with 1 other capecitabine prescription for 1,300 mg total. capecitabine (XELODA) 500 mg tablet Take 2 tablets (1,000 mg) by mouth two times a day with 1 other capecitabine prescription for 1,300 mg total. iv contrast (will be provided with radiology test) MRI Rectum Inject, intravenously, once for 1 dose. No IV access, insert saline lock prior to the beginning of sedation, infusion, injection of imaging exam. Discontinue saline lock post exam. If Pt has a central line or IVAD, may access for administration according to line specific nursing protocol. Once exam is complete flush line and de-access according to line specific nursing protocol in the MR contrast administration guidelines link. (Patient not taking: Reported on 10/18/2024) enteric contrast (will be provided with radiology test) MRI RECTUM WO/W. Administer, As Directed One Time Only, via Oral, Rectal, both Oral and Rectal, Enteric Tube, Stoma or Indwelling Catheter, Enteric Contrast as designated per enteric contrast guidelines (Patient not taking: Reported on 10/18/2024) iv contrast (will be provided with radiology test) CT Chest ABD/PEL-Inject, intravenously, once for 1 dose.No IV access, insert saline lock prior to the beginning of sedation, infusion, injection of imaging exam. Discontinue saline lock post exam. If Pt. has a central line or IVAD, may access for administration according to line specific nursing protocol. Once exam is complete flush line and de-access according to line specific nursing protocol in the CT contrast administration guidelines link. (Patient not taking: Reported on 10/18/2024) enteric contrast (will be provided with radiology test) For CT CHESTABD/PEL W IVCON Routine order Administer, As Directed One Time Only, via Oral, Rectal, both Oral and Rectal, Enteric Tube, Stoma or Indwelling Catheter, Enteric Contrast as designated per enteric contrast guidelines (Patient not taking: Reported on 10/18/2024) No current facility-administered medications for this visit. - Chemotherapy education was provided by a pharmacist NO - Thank you for allowing us to participate in the care of this patient. I spent 15 time (15 minute increments) with the patient [facility] Pager: [facility] 11-08-2024 History of Present illness Narrative Images from the original note were not included. PATIENT NAME: Bentley Gonzalez [facility] NO.: [id number] ATTENDING PHYSICIAN: Sancho Sánchez MD DATE OF SERVICE: 11/08/[address] Raz Tucker [id number] [address] [facility] [id number] thank you for referring Bentley Gonzalez for an opinion regarding Rectal cancer. Some of the elements of this note have been copied from my previous progress note dated 11/01/24 . All the information has been reviewed carefully. CHIEF COMPLAINT: Rectal cancer HPI: Bentley Gonzalez is a 64 year old year old male with no significant PMH referred to us for rectal mass. He reports months of hematochezia as well as change in bowel habits prompting him to present for endoscopic evaluation. On colonoscopy, he was found to have a rectal mass on LUIS ANTONIO and on endoscopic evaluation, pediatric scope could not be advanced past the mass. Biopsy was taken and result showed adenoca. He presents for further evaluation and management. Patient reports that his difficulty defecating included small pellet-like stools, ~10 times a day, which has improved since he started taking MiraLAX daily. He now has large volume stool but still go multiple times a day. His hematochezia is also resolved. Seen by surgeon . Scheduled for scans on 10/27/23. No family history of colon ca. Works in construction and randy. Smokes 1 pk/day for many yrs. 11/01/24: - CT chest (10/27/24)- Few scattered pulmonary nodules measuring up to 4 mm. Continued follow-up is recommended. - CT A/P (10/27/24)- 5 cm rectal mass with metastatic mesorectal and superior rectal lymphadenopathy. Indeterminate subcentimeter low-attenuation lesions in the liver. Attention on follow-up is recommended. 1.7 cm above water attenuation lesion in the left kidney. Consider ultrasound for further assessment versus attention on follow-up - MRI rectum (10/29/24)- 4.7 cm mid rectal mass extending into the mesorectal fat with multiple suspicious mesorectal lymph nodes. Stage: T3d N+ MRF: Involved (tumor margin within 1 mm of MRF Sphincter involvement: No. Suspicious extra mesorectal lymph nodes: No. EMVI: Yes - Able to pass bowel movements with miralax - No major complaints. 11/08/24: - Started radiation today - Doing well - No major complaints - Able to pass bowel movements Current Outpatient Medications Medication Sig polyethylene glycol 3350 (MIRALAX ORAL) Take by mouth. capecitabine (XELODA) 150 mg tablet Take 2 tablets (300 mg) by mouth two times a day with 1 other capecitabine prescription for 1,300 mg total. capecitabine (XELODA) 500 mg tablet Take 2 tablets (1,000 mg) by mouth two times a day with 1 other capecitabine prescription for 1,300 mg total. iv contrast (will be provided with radiology test) MRI Rectum Inject, intravenously, once for 1 dose. No IV access, insert saline lock prior to the beginning of sedation, infusion, injection of imaging exam. Discontinue saline lock post exam. If Pt has a central line or IVAD, may access for administration according to line specific nursing protocol. Once exam is complete flush line and de-access according to line specific nursing protocol in the MR contrast administration guidelines link. (Patient not taking: Reported on 10/18/2024) enteric contrast (will be provided with radiology test) MRI RECTUM WO/W. Administer, As Directed One Time Only, via Oral, Rectal, both Oral and Rectal, Enteric Tube, Stoma or Indwelling Catheter, Enteric Contrast as designated per enteric contrast guidelines (Patient not taking: Reported on 10/18/2024) iv contrast (will be provided with radiology test) CT Chest ABD/PEL-Inject, intravenously, once for 1 dose.No IV access, insert saline lock prior to the beginning of sedation, infusion, injection of imaging exam. Discontinue saline lock post exam. If Pt. has a central line or IVAD, may access for administration according to line specific nursing protocol. Once exam is complete flush line and de-access according to line specific nursing protocol in the CT contrast administration guidelines link. (Patient not taking: Reported on 10/18/2024) enteric contrast (will be provided with radiology test) For CT CHESTABD/PEL W IVCON Routine order Administer, As Directed One Time Only, via Oral, Rectal, both Oral and Rectal, Enteric Tube, Stoma or Indwelling Catheter, Enteric Contrast as designated per enteric contrast guidelines (Patient not taking: Reported on 10/18/2024) No current facility-administered medications for this visit. ALLERGIES No Known Allergies No past medical history on file. PAST SURGICAL HISTORY Procedure Laterality Date TONSILLECTOMY & ADENOIDECTOMY <AGE 10 FAMILY HISTORY Problem Relation Age of Onset Breast Cancer Mother Lung Cancer Father Cancer Sister Social History Tobacco Use Smoking status: Every Day Current packs/day: 1.00 Average packs/day: 1 pack/day for 54.1 years (54.1 ttl pk-yrs) Types: Cigarettes Start date: 1972 Smokeless tobacco: Never Vaping Use Vaping status: Never Used Substance Use Topics Alcohol use: Yes Comment: very seldom Drug use: Not Currently REVIEW OF SYSTEMS GENERAL: No weight loss, malaise or fevers. No night sweats. HEENT: Negative for headaches, No changes in hearing or vision, no nose bleeds or other nasal problems. RESPIRATORY: Negative for cough, wheezing and shortness of breath CARDIOVASCULAR: Negative for chest pain, leg swelling and palpitations GI: Negative for abdominal discomfort, blood in stools or black stools and change in bowel habits : Negative for dysuria, frequency and incontinence MUSCULOSKELETAL: Negative for joint pain or swelling, back pain, and muscle pain. SKIN: Negative for lesions, rash, and itching. HEMATOLOGY/LYMPHOLOGY Negative for prolonged bleeding, bruising easily, and swollen nodes. NEURO: Negative for numbness or tingling of hands/feet. No weakness. PHYSICAL EXAMINATION: There were no vitals taken for this visit. There were no vitals taken for this visit. No data found for this vital: Wt General appearance:ECOG PERFORMANCE STATUS: 0- Fully active, able to carry on all pre-disease performance w/o restriction. Patient in NAD. Skin: Skin color, texture, turgor normal. No rashes or lesions. Eyes: Anicteric sclera. Pupils are equally round and reactive to light. Extraocular movements are intact. Breast: No palpable breast masses. No nipple change or discharge. Lymph Nodes: No cervical, supraclavicular, axillary or inguinal adenopathy. Oropharynx: Lips, mucosa, and tongue normal. Back: No pain to percussion. Negative SLR test Lungs clear to auscultation, No wheezing or rhonchi Heart: RRR without murmur, gallop, or rubs. Abdomen soft, non-tender. No masses, organomegaly Extremities: No deformities. No edema Neuro: Gait and speech normal. Reflexes normal and symmetric. Muscular strength intact. Sensation grossly intact. Rectal: Deferred : Deferred LABS: Glucose (mg/dL) Date Value 10/18/2024 132 Potassium (mmol/L) Date Value 10/18/2024 3.9 Sodium (mmol/L) Date Value 10/18/2024 138 Chloride (mmol/L) Date Value 10/18/2024 103 CO2 (mmol/L) Date Value 10/18/2024 24 Creatinine (mg/dL) Date Value 10/18/2024 0.73 BUN (mg/dL) Date Value 10/18/2024 11 Anion Gap (mmol/L) Date Value 10/18/2024 11 Calcium, Total (mg/dL) Date Value 10/18/2024 9.3 Protein, Total (g/dL) Date Value 10/18/2024 6.9 Albumin (g/dL) Date Value 10/18/2024 4.4 Bilirubin, Total (mg/dL) Date Value 10/18/2024 0.5 Alkaline Phosphatase (U/L) Date Value 10/18/2024 88 AST (U/L) Date Value 10/18/2024 11 ALT (U/L) Date Value 10/18/2024 9 WBC Date Value Ref Range Status 10/18/2024 8.24 3.70 - 11.00 k/uL Final RBC Date Value Ref Range Status 10/18/2024 4.82 4.20 - 6.00 m/uL Final Hemoglobin Date Value Ref Range Status 10/18/2024 15.0 13.0 - 17.0 g/dL Final Hematocrit Date Value Ref Range Status 10/18/2024 45.2 39.0 - 51.0 % Final MCV Date Value Ref Range Status 10/18/2024 93.8 80.0 - 100.0 fL Final MCH Date Value Ref Range Status 10/18/2024 31.1 26.0 - 34.0 pg Final MCHC Date Value Ref Range Status 10/18/2024 33.2 30.5 - 36.0 g/dL Final RDW-CV Date Value Ref Range Status 10/18/2024 13.2 11.5 - 15.0 % Final Platelet Count Date Value Ref Range Status 10/18/2024 274 150 - 400 k/uL Final MPV Date Value Ref Range Status 10/18/2024 8.9 (L) 9.0 - 12.7 fL Final Abs Neut Date Value Ref Range Status 10/18/2024 5.89 1.45 - 7.50 k/uL Final Lymphocytes % Date Value Ref Range Status 10/18/2024 19.7 % Final Abs Lymph Date Value Ref Range Status 10/18/2024 1.62 1.00 - 4.00 k/uL Final Monocytes % Date Value Ref Range Status 10/18/2024 6.9 % Final Abs [place] Date Value Ref Range Status 10/18/2024 0.57 <0.87 k/uL Final Abs Eosin Date Value Ref Range Status 10/18/2024 0.10 <0.46 k/uL Final Basophils % Date Value Ref Range Status 10/18/2024 0.4 % Final Abs Baso Date Value Ref Range Status 10/18/2024 0.03 <0.11 k/uL Final PATH: IMAGING: CT chest (10/27/24)- Few scattered pulmonary nodules measuring up to 4 mm. Continued follow-up is recommended. - CT A/P (10/27/24)- 5 cm rectal mass with metastatic mesorectal and superior rectal lymphadenopathy. Indeterminate subcentimeter low-attenuation lesions in the liver. Attention on follow-up is recommended. 1.7 cm above water attenuation lesion in the left kidney. Consider ultrasound for further assessment versus attention on follow-up - MRI rectum (10/29/24)- 4.7 cm mid rectal mass extending into the mesorectal fat with multiple suspicious mesorectal lymph nodes. Stage: T3d N+ MRF: Involved (tumor margin within 1 mm of MRF Sphincter involvement: No. Suspicious extra mesorectal lymph nodes: No. EMVI: Yes ASSESSMENT AND PLAN: Bentley Gonzalez is a 64 year old year old male referred to us for newly diagnosed rectal adenoca. PS 0. Rectal mass biopsy showed invasive moderately differentiated adenoca. MRI rectum (10/29/24)- 4.7 cm mid rectal mass extending into the mesorectal fat with multiple suspicious mesorectal lymph nodes. Stage: T3d N+ - No evidence of metastases on CT C/A/P. - Final staging is T3 N2a M0. Stage IIIB - He is starting radiation on 11/08/24 - Will start him on Xeloda 1300mg BID on the start day of radiation PLAN: - Doing well - Started radiation today - Side effects of Xeloda explained in detail including nausea, vomiting, diarrhea, HFS etc - Ordered Port placement. - Ordered AP mol testing to check for MMR deficiency. MMR test pending. - Blood work today is unremarkable. - All his questions answered in detail - F/u in [address] Raz Tucker [id number] [address] [facility] [id number] thank you for allowing me to participate in Bentley Gonzalez care, if there are any questions or concerns please do not hesitate to contact me at the number below. I spent a total of 30 minutes on the date of the service which included preparing to see the patient, [id number] patient care, completing clinical documentation, obtaining and/or reviewing separately obtained history, performing a medically appropriate examination, counseling and educating the patient/family/caregiver, ordering medications, tests, or procedures, communicating with other HCPs (not separately reported), independently interpreting results (not separately reported), communicating results to the patient/family/caregiver, and care coordination (not separately reported). Sancho Sánchez MD. Hematology/Medical Oncology [facility] [phone] CC: documented in this encounter [facility] 11-08-2024 Note HNO ID: [id number] Author: SANCHO SÁNCHEZ MD Service: ? Author Type: Physician Type: Progress Notes Filed: 11/08/2024 14:40 Note Text: PATIENT NAME: Bentley Gonzalez [facility] NO.: [id number] ATTENDING PHYSICIAN: Sancho Sánchez MD DATE OF SERVICE: 11/08/[address] Raz Tucker [id number] [address] [facility] [id number] thank you for referring Bentley Gonzalez for an opinion regarding Rectal cancer. Some of the elements of this note have been copied from my previous progress note dated 11/01/24 . All the information has been reviewed carefully. CHIEF COMPLAINT: Rectal cancer HPI: Bentley Gonzalez is a 64 year old year old male with no significant PMH referred to us for rectal mass. He reports months of hematochezia as well as change in bowel habits prompting him to present for endoscopic evaluation. On colonoscopy, he was found to have a rectal mass on LUIS ANTONIO and on endoscopic evaluation, pediatric scope could not be advanced past the mass. Biopsy was taken and result showed adenoca. He presents for further evaluation and management. Patient reports that his difficulty defecating included small pellet-like stools, ~10 times a day, which has improved since he started taking MiraLAX daily. He now has large volume stool but still go multiple times a day. His hematochezia is also resolved. Seen by surgeon . Scheduled for scans on 10/27/23. No family history of colon ca. Works in construction and randy. Smokes 1 pk/day for many yrs. 11/01/24: - CT chest (10/27/24)- Few scattered pulmonary nodules measuring up to 4 mm. Continued follow-up is recommended. - CT A/P (10/27/24)- 5 cm rectal mass with metastatic mesorectal and superior rectal lymphadenopathy. Indeterminate subcentimeter low-attenuation lesions in the liver. Attention on follow-up is recommended. 1.7 cm above water attenuation lesion in the left kidney. Consider ultrasound for further assessment versus attention on follow-up - MRI rectum (10/29/24)- 4.7 cm mid rectal mass extending into the mesorectal fat with multiple suspicious mesorectal lymph nodes. Stage: T3d N+ MRF: Involved (tumor margin within 1 mm of MRF Sphincter involvement: No. Suspicious extra mesorectal lymph nodes: No. EMVI: Yes - Able to pass bowel movements with miralax - No major complaints. 11/08/24: - Started radiation today - Doing well - No major complaints - Able to pass bowel movements Current Outpatient Medications Medication Sig polyethylene glycol 3350 (MIRALAX ORAL) Take by mouth. capecitabine (XELODA) 150 mg tablet Take 2 tablets (300 mg) by mouth two times a day with 1 other capecitabine prescription for 1,300 mg total. capecitabine (XELODA) 500 mg tablet Take 2 tablets (1,000 mg) by mouth two times a day with 1 other capecitabine prescription for 1,300 mg total. iv contrast (will be provided with radiology test) MRI Rectum Inject, intravenously, once for 1 dose. No IV access, insert saline lock prior to the beginning of sedation, infusion, injection of imaging exam. Discontinue saline lock post exam. If Pt has a central line or IVAD, may access for administration according to line specific nursing protocol. Once exam is complete flush line and de-access according to line specific nursing protocol in the MR contrast administration guidelines link. (Patient not taking: Reported on 10/18/2024) enteric contrast (will be provided with radiology test) MRI RECTUM WO/W. Administer, As Directed One Time Only, via Oral, Rectal, both Oral and Rectal, Enteric Tube, Stoma or Indwelling Catheter, Enteric Contrast as designated per enteric contrast guidelines (Patient not taking: Reported on 10/18/2024) iv contrast (will be provided with radiology test) CT Chest ABD/PEL-Inject, intravenously, once for 1 dose.No IV access, insert saline lock prior to the beginning of sedation, infusion, injection of imaging exam. Discontinue saline lock post exam. If Pt. has a central line or IVAD, may access for administration according to line specific nursing protocol. Once exam is complete flush line and de-access according to line specific nursing protocol in the CT contrast administration guidelines link. (Patient not taking: Reported on 10/18/2024) enteric contrast (will be provided with radiology test) For CT CHESTABD/PEL W IVCON Routine order Administer, As Directed One Time Only, via Oral, Rectal, both Oral and Rectal, Enteric Tube, Stoma or Indwelling Catheter, Enteric Contrast as designated per enteric contrast guidelines (Patient not taking: Reported on 10/18/2024) No current facility-administered medications for this visit. ALLERGIES No Known Allergies No past medical history on file. PAST SURGICAL HISTORY Procedure Laterality Date TONSILLECTOMY AND ADENOIDECTOMY FAMILY HISTORY Problem Relation Age of Onset Breast Cancer Mother Lung Cancer Father Cancer Sister Social History Tobacco Use Smoki (more content not included)... [facility] 11-05-2024 Telephone encounter Note Pt will be in for chemo ed on Friday. Please sign pending orders. Thanks Rebecca Ballard RN [facility] 11-05-2024 Miscellaneous Notes Pt will be in for chemo ed on Friday. Please sign pending orders. Thanks Rebecca Ballard RN documented in this encounter [facility] 11-04-2024 History of Present illness Narrative [facility] November 04, 2024 Bentley Gonzalez 64 year old VIRTUAL VISIT I have communicated my name and active licensure. The patient's identity and physical location were verified at the time of this visit. Either the patient or their legal customer service representative has been informed of the risks and benefits of -- and alternatives to -- treatment through a remote evaluation and consents to proceed with the evaluation remotely. Chief Complaint: rectal cancer Brief History: Bentley Gonzalez is a 64 year old man with an endoscopcially obstructing distal rectal rectal cancer. Here for follow up Medical oncology - Dr. Etiennedy Radiation oncology - Dr. Monson Interval events: Denies obstructive symptoms. Having good BMs with daily miralax. No abdominal pain. Weight stable. Quit smoking Starting treatment next week Abdominal/anorectal surgery: Denies No past medical history on file. PAST SURGICAL HISTORY Procedure Laterality Date TONSILLECTOMY & ADENOIDECTOMY <AGE 10 Current Outpatient Medications Medication Sig Dispense Refill polyethylene glycol 3350 (MIRALAX ORAL) Take by mouth. capecitabine (XELODA) 150 mg tablet Take 2 tablets (300 mg) by mouth two times a day with 1 other capecitabine prescription for 1,300 mg total. 120 tablet 0 capecitabine (XELODA) 500 mg tablet Take 2 tablets (1,000 mg) by mouth two times a day with 1 other capecitabine prescription for 1,300 mg total. 120 tablet 0 iv contrast (will be provided with radiology test) MRI Rectum Inject, intravenously, once for 1 dose. No IV access, insert saline lock prior to the beginning of sedation, infusion, injection of imaging exam. Discontinue saline lock post exam. If Pt has a central line or IVAD, may access for administration according to line specific nursing protocol. Once exam is complete flush line and de-access according to line specific nursing protocol in the MR contrast administration guidelines link. (Patient not taking: Reported on 10/18/2024) 1 Each 0 enteric contrast (will be provided with radiology test) MRI RECTUM WO/W. Administer, As Directed One Time Only, via Oral, Rectal, both Oral and Rectal, Enteric Tube, Stoma or Indwelling Catheter, Enteric Contrast as designated per enteric contrast guidelines (Patient not taking: Reported on 10/18/2024) 1 Each 0 iv contrast (will be provided with radiology test) CT Chest ABD/PEL-Inject, intravenously, once for 1 dose.No IV access, insert saline lock prior to the beginning of sedation, infusion, injection of imaging exam. Discontinue saline lock post exam. If Pt. has a central line or IVAD, may access for administration according to line specific nursing protocol. Once exam is complete flush line and de-access according to line specific nursing protocol in the CT contrast administration guidelines link. (Patient not taking: Reported on 10/18/2024) 1 Each 0 enteric contrast (will be provided with radiology test) For CT CHESTABD/PEL W IVCON Routine order Administer, As Directed One Time Only, via Oral, Rectal, both Oral and Rectal, Enteric Tube, Stoma or Indwelling Catheter, Enteric Contrast as designated per enteric contrast guidelines (Patient not taking: Reported on 10/18/2024) 1 Each 0 No current facility-administered medications for this visit. ALLERGIES No Known Allergies FAMILY HISTORY Problem Relation Age of Onset Breast Cancer Mother Lung Cancer Father Cancer Sister Social History Tobacco Use Smoking status: Every Day Current packs/day: 1.00 Average packs/day: 1 pack/day for 54.1 years (54.1 ttl pk-yrs) Types: Cigarettes Start date: 1970 Smokeless tobacco: Never Vaping Use Vaping status: Never Used Substance Use Topics Alcohol use: Yes Comment: very seldom Drug use: Not Currently Physical Exam: There were no vitals taken for this visit. General Appearance: Well appearing, alert, in no acute distress, well-hydrated, well nourished. Abdomen: deferred, Virtual visit Colonoscopy 09/24/24 - Dr. Clemente Scan on 10/04/2024 11:25 AM by Provider, External, PA-C: Miscellaneous Procedures - Digital rectal exam revealed firm, circumferential rectal mass, likely carcinoma. Pediatric scope could not be advanced past the mass. - Multiple biopsies taken Pathology collected 09/24/24 FINAL DIAGNOSIS Outside , 09/28/2024 Colon, rectum, mass, biopsy -Invasive moderately differentiated adenocarcinoma MRI rectum 10/29/24 4.7 cm mid rectal mass extending into the mesorectal fat with multiple suspicious mesorectal lymph nodes. Stage: T3d N+ MRF: Involved (tumor margin within 1 mm of MRF Sphincter involvement: No. Suspicious extra mesorectal lymph nodes: No. EMVI: Yes. CT A/P 10/27/24 5 cm rectal mass with metastatic mesorectal and superior rectal lymphadenopathy. Indeterminate subcentimeter low-attenuation lesions in the liver. Attention on follow-up is recommended. 1.7 cm above water attenuation lesion in the left kidney. Consider ultrasound for further assessment versus attention on follow-up. CT chest 10/27/24 Few scattered pulmonary nodules measuring up to 4 mm. Continued follow-up is recommended. CEA on 10/18/24: 2.6 Assessment Assessment and Plan: Bentley Gonzalez is a 64 year old man with an endoscopcially obstructing distal rectal rectal cancer. We reviewed imaging and discussed treatment of CAR for his locally advanced rectal cancer. Treatment timeline reviewed Discussed post-treatment option of W+W if complete response vs. Surgery if partial response Cont miralax RTC after completion of LC-PROPERTY MANAGER Medical Decision Making: Data Reviewed: Tests & Documents Reviewed/ordered: Review of prior notes from last clinic note Review of Pathology Review of Imaging: CT Abdomen, CT Pelvis, MRI Pelvis, CT Chest Review of Labs: CEA Review of Procedures / Tests: Colonoscopy I have independently interpreted: CT Abdomen, CT Pelvis, MRI Pelvis, CT Chest I have discussed Bentley Gonzalez's treatment plan and/or results with patient and his . Risk of morbidity, mortality and/or complications of treatment plan: felton Tucekr MD Colorectal Surgery documented in this encounter [facility] 11-04-2024 Note HNO ID: [id number] Author: RAZ TUCKER MD Service: ? Author Type: Physician Type: Progress Notes Filed: 11/04/2024 13:12 Note Text: [facility] NOTE November 04, 2024 Bentley Gonzalez 64 year old VIRTUAL VISIT I have communicated my name and active licensure. The patient's identity and physical location were verified at the time of this visit. Either the patient or their legal customer service representative has been informed of the risks and benefits of -- and alternatives to -- treatment through a remote evaluation and consents to proceed with the evaluation remotely. Chief Complaint: rectal cancer Brief History: Bentley Gonzalez is a 64 year old man with an endoscopcially obstructing distal rectal rectal cancer. Here for follow up Medical oncology - Dr. Sánchez Radiation oncology - Dr. Monson Interval events: Denies obstructive symptoms. Having good BMs with daily miralax. No abdominal pain. Weight stable. Quit smoking Starting treatment next week Abdominal/anorectal surgery: Denies No past medical history on file. PAST SURGICAL HISTORY Procedure Laterality Date TONSILLECTOMY AND ADENOIDECTOMY Current Outpatient Medications Medication Sig Dispense Refill polyethylene glycol 3350 (MIRALAX ORAL) Take by mouth. capecitabine (XELODA) 150 mg tablet Take 2 tablets (300 mg) by mouth two times a day with 1 other capecitabine prescription for 1,300 mg total. 120 tablet 0 capecitabine (XELODA) 500 mg tablet Take 2 tablets (1,000 mg) by mouth two times a day with 1 other capecitabine prescription for 1,300 mg total. 120 tablet 0 iv contrast (will be provided with radiology test) MRI Rectum Inject, intravenously, once for 1 dose. No IV access, insert saline lock prior to the beginning of sedation, infusion, injection of imaging exam. Discontinue saline lock post exam. If Pt has a central line or IVAD, may access for administration according to line specific nursing protocol. Once exam is complete flush line and de-access according to line specific nursing protocol in the MR contrast administration guidelines link. (Patient not taking: Reported on 10/18/2024) 1 Each 0 enteric contrast (will be provided with radiology test) MRI RECTUM WO/W. Administer, As Directed One Time Only, via Oral, Rectal, both Oral and Rectal, Enteric Tube, Stoma or Indwelling Catheter, Enteric Contrast as designated per enteric contrast guidelines (Patient not taking: Reported on 10/18/2024) 1 Each 0 iv contrast (will be provided with radiology test) CT Chest ABD/PEL-Inject, intravenously, once for 1 dose.No IV access, insert saline lock prior to the beginning of sedation, infusion, injection of imaging exam. Discontinue saline lock post exam. If Pt. has a central line or IVAD, may access for administration according to line specific nursing protocol. Once exam is complete flush line and de-access according to line specific nursing protocol in the CT contrast administration guidelines link. (Patient not taking: Reported on 10/18/2024) 1 Each 0 enteric contrast (will be provided with radiology test) For CT CHESTABD/PEL W IVCON Routine order Administer, As Directed One Time Only, via Oral, Rectal, both Oral and Rectal, Enteric Tube, Stoma or Indwelling Catheter, Enteric Contrast as designated per enteric contrast guidelines (Patient not taking: Reported on 10/18/2024) 1 Each 0 No current facility-administered medications for this visit. ALLERGIES No Known Allergies FAMILY HISTORY Problem Relation Age of Onset Breast Cancer Mother Lung Cancer Father Cancer Sister Social History Tobacco Use Smoking status: Every Day Current packs/day: 1.00 Average packs/day: 1 pack/day for 54.1 years (54.1 ttl pk-yrs) Types: Cigarettes Start date: 1972 Smokeless tobacco: Never Vaping Use Vaping status: Never Used Substance Use Topics Alcohol use: Yes Comment: very seldom Drug use: Not Currently Physical Exam: There were no vitals taken for this visit. General Appearance: Well appearing, alert, in no acute distress, well-hydrated, well nourished. Abdomen: deferred, Virtual visit Colonoscopy 09/24/24 - Dr. Clemente Scan on 10/04/2024 11:25 AM by Provider, External, PA-C: Miscellaneous Procedures - Digital rectal exam revealed firm, circumferential rectal mass, likely carcinoma. Pediatric scope could not be advanced past the mass. - Multiple biopsies taken Pathology collected 09/24/24 FINAL DIAGNOSIS Outside , 09/28/2024 Colon, rectum, mass, biopsy -Invasive moderately differentiated adenocarcinoma MRI rectum 10/29/24 4.7 cm mid rectal mass extending into the mesorectal fat with multiple suspicious mesorectal lymph nodes. Stage: T3d N+ MRF: Involved (tumor margin within 1 mm of MRF Sphincter involvement: No. Suspicious extra mesorectal lymph nodes: No. EMVI: Yes. CT A/P 10/27/24 5 cm rectal mass with metastatic mesorectal and (more content not included)... [facility] 11-04-2024 Note HNO ID: [id number] Author: ALEJANDRA WAY APRN.PARTITION SETTER Service: ? Author Type: Nurse Practitioner Type: Progress Notes Filed: 11/04/2024 10:27 Note Text: Rectal Cancer Tumor Board Initial Presentation Date of conference: 11/04/2024. Presenter/specialty: [facility] Dr. Tucker History of present illness: 64 year old male with newly diagnosed rectal cancer. Is the patient obstructed?:Near Obstructed. Colonoscopy Report Findings: 09/24/2024 Dr. Clemente - Digital rectal exam revealed firm, circumferential rectal mass, likely carcinoma. Pediatric scope could not be advanced past the mass. - Multiple biopsies taken OSH Pathology (Yes/No): Yes Pathology shows invasive adenocarcinoma (Yes/No): Yes Pathology findings reviewed/agreed by Dr. Arenas/Leatha (Yes/No): Yes Dagoberto Pathology on metastatic lesions (write N/A if no metastases): n/a Pathology on other colonoscopic synchronous lesions: n/a CEA level done pretreatment: Yes CEA level: 10/18/2024 - 2.6 Type of imaging reviewed in tumor board with Rectal Cancer Multidisciplinary Team Radiologist and findings: MRI rectum, CT CAP Radiologist reading the MRI in MDT: Stacey Jeong MRI Pelvis: 10/29/2024 - IMPRESSION: 4.7 cm mid rectal mass extending into the mesorectal fat with multiple suspicious mesorectal lymph nodes. Relation to peritoneal reflection (Above/Below/Spans): straddles Tumor location in the rectum (Proximal/Mid/Distal): mid Tumor distance from anal verge: (#) cm. 6.3cm. Involvement of sphincter muscles: No Mesorectal lymph nodes suspicious: Yes Extra-mesorectal lymph nodes suspicious: No Other structures involved: No Clinical circumferential resection margin: Involved. *2.5 x 2.1 cm confluent superior rectal tumor deposit (6:22) MRI Pelvis read with minimum required elements per NAPRC guidelines (Yes/No): Yes CT Chest: 10/27/2024 Metastatic disease (Yes/No): No CT Abdomen/Pelvis: 10/27/2024 Metastatic disease (Yes/No): No PET/CT: n/a Pre-treatment clinical stage: [id number] stage IIIB Neoadjuvant therapy type (if any) recommended: CAR - total neoadjuvant therapy chemoradiation followed by consolidation chemotherapy (consider FOLFOX) Anticipated surgical procedure: LAR Anticipated date of surgery: following completion of CAR, likely 6 months Referral to radiation oncology (Yes/No): Yes Referral to medical oncology (Yes/No): Yes Referral to palliative care/supportive care services (Yes/No): No Tumor board discussion and recommendation: obtain [facility] pathology slide blocks for MMR testing. Follow liver subcentimeter lesions with CT imaging. Medical and radiation oncology referral for CAR - total neoadjuvant therapy chemoradiation followed by consolidation chemotherapy (consider FOLFOX). No current obstructive symptoms, bowel function with daily miralax. Patient eligible to clinical trial enrollment: No Genetic counseling referral: no Disciplines present: Colorectal Surgery, Medical Oncology, Radiation Oncology, Radiology, Anatomic Pathology This is the summary of the general discussion provided at tumor board conference. The final recommendations will be made by the primary health care team and the patient after discussing the benefits, risks and alternatives to the various treatment options. This treatment recommendation summary was provided to the treating physician Dr. Tucker and was shared with the patient [facility] 11-03-2024 Telephone encounter Note Patient notified and form placed at the Resident Intern for filler picker, copy scanned into chart. Risa Govea MA [facility] 11-03-2024 Miscellaneous Notes Patient notified and form placed at the Resident Intern for filler picker, copy scanned into chart. Risa Govea MA [employer] policy paperwork completed and put in Dr Sánchez's folder for signature. Karlie Prather MA documented in this encounter [facility] 11-02-2024 Telephone encounter Note [employer] policy paperwork completed and put in Dr Sánchez's folder for signature. Karlie Prather MA [facility] 11-01-2024 History of Present illness Narrative Images from the original note were not included. PATIENT NAME: Bentley Gonzalez [facility] NO.: [id number] ATTENDING PHYSICIAN: Sancho Sánchez MD DATE OF SERVICE: November 01, [address] Raz Tucker [id number] [address] [facility] [address] thank you for referring Bentley Gonzalez for an opinion regarding Rectal cancer. CHIEF COMPLAINT: Rectal cancer HPI: Bentley Gonzalez is a 64 year old year old male with no significant PMH referred to us for rectal mass. He reports months of hematochezia as well as change in bowel habits prompting him to present for endoscopic evaluation. On colonoscopy, he was found to have a rectal mass on LUIS ANTONIO and on endoscopic evaluation, pediatric scope could not be advanced past the mass. Biopsy was taken and result showed adenoca. He presents for further evaluation and management. Patient reports that his difficulty defecating included small pellet-like stools, ~10 times a day, which has improved since he started taking MiraLAX daily. He now has large volume stool but still go multiple times a day. His hematochezia is also resolved. Seen by surgeon . Scheduled for scans on 10/27/23. No family history of colon ca. Works in construction and randy. Smokes 1 pk/day for many yrs. 11/01/24: - CT chest (10/27/24)- Few scattered pulmonary nodules measuring up to 4 mm. Continued follow-up is recommended. - CT A/P (10/27/24)- 5 cm rectal mass with metastatic mesorectal and superior rectal lymphadenopathy. Indeterminate subcentimeter low-attenuation lesions in the liver. Attention on follow-up is recommended. 1.7 cm above water attenuation lesion in the left kidney. Consider ultrasound for further assessment versus attention on follow-up - MRI rectum (10/29/24)- 4.7 cm mid rectal mass extending into the mesorectal fat with multiple suspicious mesorectal lymph nodes. Stage: T3d N+ MRF: Involved (tumor margin within 1 mm of MRF Sphincter involvement: No. Suspicious extra mesorectal lymph nodes: No. EMVI: Yes - Able to pass bowel movements with miralax - No major complaints. Current Outpatient Medications Medication Sig iv contrast (will be provided with radiology test) MRI Rectum Inject, intravenously, once for 1 dose. No IV access, insert saline lock prior to the beginning of sedation, infusion, injection of imaging exam. Discontinue saline lock post exam. If Pt has a central line or IVAD, may access for administration according to line specific nursing protocol. Once exam is complete flush line and de-access according to line specific nursing protocol in the MR contrast administration guidelines link. (Patient not taking: Reported on 10/18/2024) enteric contrast (will be provided with radiology test) MRI RECTUM WO/W. Administer, As Directed One Time Only, via Oral, Rectal, both Oral and Rectal, Enteric Tube, Stoma or Indwelling Catheter, Enteric Contrast as designated per enteric contrast guidelines (Patient not taking: Reported on 10/18/2024) iv contrast (will be provided with radiology test) CT Chest ABD/PEL-Inject, intravenously, once for 1 dose.No IV access, insert saline lock prior to the beginning of sedation, infusion, injection of imaging exam. Discontinue saline lock post exam. If Pt. has a central line or IVAD, may access for administration according to line specific nursing protocol. Once exam is complete flush line and de-access according to line specific nursing protocol in the CT contrast administration guidelines link. (Patient not taking: Reported on 10/18/2024) enteric contrast (will be provided with radiology test) For CT CHESTABD/PEL W IVCON Routine order Administer, As Directed One Time Only, via Oral, Rectal, both Oral and Rectal, Enteric Tube, Stoma or Indwelling Catheter, Enteric Contrast as designated per enteric contrast guidelines (Patient not taking: Reported on 10/18/2024) No current facility-administered medications for this visit. ALLERGIES No Known Allergies No past medical history on file. PAST SURGICAL HISTORY Procedure Laterality Date TONSILLECTOMY & ADENOIDECTOMY <AGE 10 FAMILY HISTORY Problem Relation Age of Onset Breast Cancer Mother Lung Cancer Father Cancer Sister Social History Tobacco Use Smoking status: Every Day Current packs/day: 1.00 Average packs/day: 1 pack/day for 54.1 years (54.1 ttl pk-yrs) Types: Cigarettes Start date: 1970 Smokeless tobacco: Never Vaping Use Vaping status: Never Used Substance Use Topics Alcohol use: Yes Comment: very seldom Drug use: Not Currently REVIEW OF SYSTEMS GENERAL: No weight loss, malaise or fevers. No night sweats. HEENT: Negative for headaches, No changes in hearing or vision, no nose bleeds or other nasal problems. RESPIRATORY: Negative for cough, wheezing and shortness of breath CARDIOVASCULAR: Negative for chest pain, leg swelling and palpitations GI: Negative for abdominal discomfort, blood in stools or black stools and change in bowel habits : Negative for dysuria, frequency and incontinence MUSCULOSKELETAL: Negative for joint pain or swelling, back pain, and muscle pain. SKIN: Negative for lesions, rash, and itching. HEMATOLOGY/LYMPHOLOGY Negative for prolonged bleeding, bruising easily, and swollen nodes. NEURO: Negative for numbness or tingling of hands/feet. No weakness. PHYSICAL EXAMINATION: There were no vitals taken for this visit. There were no vitals taken for this visit. No data found for this vital: Wt General appearance:ECOG PERFORMANCE STATUS: 0- Fully active, able to carry on all pre-disease performance w/o restriction. Patient in NAD. Skin: Skin color, texture, turgor normal. No rashes or lesions. Eyes: Anicteric sclera. Pupils are equally round and reactive to light. Extraocular movements are intact. Breast: No palpable breast masses. No nipple change or discharge. Lymph Nodes: No cervical, supraclavicular, axillary or inguinal adenopathy. Oropharynx: Lips, mucosa, and tongue normal. Back: No pain to percussion. Negative SLR test Lungs clear to auscultation, No wheezing or rhonchi Heart: RRR without murmur, gallop, or rubs. Abdomen soft, non-tender. No masses, organomegaly Extremities: No deformities. No edema Neuro: Gait and speech normal. Reflexes normal and symmetric. Muscular strength intact. Sensation grossly intact. Rectal: Deferred : Deferred LABS: Glucose (mg/dL) Date Value 10/18/2024 132 Potassium (mmol/L) Date Value 10/18/2024 3.9 Sodium (mmol/L) Date Value 10/18/2024 138 Chloride (mmol/L) Date Value 10/18/2024 103 CO2 (mmol/L) Date Value 10/18/2024 24 Creatinine (mg/dL) Date Value 10/18/2024 0.73 BUN (mg/dL) Date Value 10/18/2024 11 Anion Gap (mmol/L) Date Value 10/18/2024 11 Calcium, Total (mg/dL) Date Value 10/18/2024 9.3 Protein, Total (g/dL) Date Value 10/18/2024 6.9 Albumin (g/dL) Date Value 10/18/2024 4.4 Bilirubin, Total (mg/dL) Date Value 10/18/2024 0.5 Alkaline Phosphatase (U/L) Date Value 10/18/2024 88 AST (U/L) Date Value 10/18/2024 11 ALT (U/L) Date Value 10/18/2024 9 WBC Date Value Ref Range Status 10/18/2024 8.24 3.70 - 11.00 k/uL Final RBC Date Value Ref Range Status 10/18/2024 4.82 4.20 - 6.00 m/uL Final Hemoglobin Date Value Ref Range Status 10/18/2024 15.0 13.0 - 17.0 g/dL Final Hematocrit Date Value Ref Range Status 10/18/2024 45.2 39.0 - 51.0 % Final MCV Date Value Ref Range Status 10/18/2024 93.8 80.0 - 100.0 fL Final MCH Date Value Ref Range Status 10/18/2024 31.1 26.0 - 34.0 pg Final MCHC Date Value Ref Range Status 10/18/2024 33.2 30.5 - 36.0 g/dL Final RDW-CV Date Value Ref Range Status 10/18/2024 13.2 11.5 - 15.0 % Final Platelet Count Date Value Ref Range Status 10/18/2024 274 150 - 400 k/uL Final MPV Date Value Ref Range Status 10/18/2024 8.9 (L) 9.0 - 12.7 fL Final Abs Neut Date Value Ref Range Status 10/18/2024 5.89 1.45 - 7.50 k/uL Final Lymphocytes % Date Value Ref Range Status 10/18/2024 19.7 % Final Abs Lymph Date Value Ref Range Status 10/18/2024 1.62 1.00 - 4.00 k/uL Final Monocytes % Date Value Ref Range Status 10/18/2024 6.9 % Final Abs [place] Date Value Ref Range Status 10/18/2024 0.57 <0.87 k/uL Final Abs Eosin Date Value Ref Range Status 10/18/2024 0.10 <0.46 k/uL Final Basophils % Date Value Ref Range Status 10/18/2024 0.4 % Final Abs Baso Date Value Ref Range Status 10/18/2024 0.03 <0.11 k/uL Final PATH: IMAGING: CT chest (10/27/24)- Few scattered pulmonary nodules measuring up to 4 mm. Continued follow-up is recommended. - CT A/P (10/27/24)- 5 cm rectal mass with metastatic mesorectal and superior rectal lymphadenopathy. Indeterminate subcentimeter low-attenuation lesions in the liver. Attention on follow-up is recommended. 1.7 cm above water attenuation lesion in the left kidney. Consider ultrasound for further assessment versus attention on follow-up - MRI rectum (10/29/24)- 4.7 cm mid rectal mass extending into the mesorectal fat with multiple suspicious mesorectal lymph nodes. Stage: T3d N+ MRF: Involved (tumor margin within 1 mm of MRF Sphincter involvement: No. Suspicious extra mesorectal lymph nodes: No. EMVI: Yes ASSESSMENT AND PLAN: Bentley Gonzalez is a 64 year old year old male referred to us for newly diagnosed rectal adenoca. PS 0. Rectal mass biopsy showed invasive moderately differentiated adenoca. PLAN: - MRI rectum (10/29/24)- 4.7 cm mid rectal mass extending into the mesorectal fat with multiple suspicious mesorectal lymph nodes. Stage: T3d N+ - No evidence of metastases on CT C/A/P. - Final staging is T3 N2a M0. Stage IIIB - He is starting radiation on 11/08/24 - Will start him on Xeloda 1300mg BID on the start day of radiation. - Advised him to get port placed with . - Ordered AP mol testing to check for MMR deficiency. - Check CBC CMP CEA - All his questions answered in detail - F/u in [address] Raz Paldenisse [id number] [address] [facility] [address] thank you for allowing me to participate in Bentley Gonzalez care, if there are any questions or concerns please do not hesitate to contact me at the number below. I spent a total of 30 minutes on the date of the service which included preparing to see the patient, [id number] patient care, completing clinical documentation, obtaining and/or reviewing separately obtained history, performing a medically appropriate examination, counseling and educating the patient/family/caregiver, ordering medications, tests, or procedures, communicating with other HCPs (not separately reported), independently interpreting results (not separately reported), communicating results to the patient/family/caregiver, and care coordination (not separately reported). Sancho Sánchez MD. Hematology/Medical Oncology CC [facility] [phone] CC: documented in this encounter [facility] 11-01-2024 Note HNO ID: [id number] Author: SANCHO SÁNCHEZ MD Service: ? Author Type: Physician Type: Progress Notes Filed: 11/01/2024 14:09 Note Text: PATIENT NAME: Bentley Gonzalez [facility] NO.: [id number] ATTENDING PHYSICIAN: Sancho Sánchez MD DATE OF SERVICE: November 01, [address] Raz Tucker [id number] [address] [facility] [address] thank you for referring Bentley Gonzalez for an opinion regarding Rectal cancer. CHIEF COMPLAINT: Rectal cancer HPI: Bentley Gonzalez is a 64 year old year old male with no significant PMH referred to us for rectal mass. He reports months of hematochezia as well as change in bowel habits prompting him to present for endoscopic evaluation. On colonoscopy, he was found to have a rectal mass on LUIS ANTONIO and on endoscopic evaluation, pediatric scope could not be advanced past the mass. Biopsy was taken and result showed adenoca. He presents for further evaluation and management. Patient reports that his difficulty defecating included small pellet-like stools, ~10 times a day, which has improved since he started taking MiraLAX daily. He now has large volume stool but still go multiple times a day. His hematochezia is also resolved. Seen by surgeon . Scheduled for scans on 10/27/23. No family history of colon ca. Works in construction and randy. Smokes 1 pk/day for many yrs. 11/01/24: - CT chest (10/27/24)- Few scattered pulmonary nodules measuring up to 4 mm. Continued follow-up is recommended. - CT A/P (10/27/24)- 5 cm rectal mass with metastatic mesorectal and superior rectal lymphadenopathy. Indeterminate subcentimeter low-attenuation lesions in the liver. Attention on follow-up is recommended. 1.7 cm above water attenuation lesion in the left kidney. Consider ultrasound for further assessment versus attention on follow-up - MRI rectum (10/29/24)- 4.7 cm mid rectal mass extending into the mesorectal fat with multiple suspicious mesorectal lymph nodes. Stage: T3d N+ MRF: Involved (tumor margin within 1 mm of MRF Sphincter involvement: No. Suspicious extra mesorectal lymph nodes: No. EMVI: Yes - Able to pass bowel movements with miralax - No major complaints. Current Outpatient Medications Medication Sig iv contrast (will be provided with radiology test) MRI Rectum Inject, intravenously, once for 1 dose. No IV access, insert saline lock prior to the beginning of sedation, infusion, injection of imaging exam. Discontinue saline lock post exam. If Pt has a central line or IVAD, may access for administration according to line specific nursing protocol. Once exam is complete flush line and de-access according to line specific nursing protocol in the MR contrast administration guidelines link. (Patient not taking: Reported on 10/18/2024) enteric contrast (will be provided with radiology test) MRI RECTUM WO/W. Administer, As Directed One Time Only, via Oral, Rectal, both Oral and Rectal, Enteric Tube, Stoma or Indwelling Catheter, Enteric Contrast as designated per enteric contrast guidelines (Patient not taking: Reported on 10/18/2024) iv contrast (will be provided with radiology test) CT Chest ABD/PEL-Inject, intravenously, once for 1 dose.No IV access, insert saline lock prior to the beginning of sedation, infusion, injection of imaging exam. Discontinue saline lock post exam. If Pt. has a central line or IVAD, may access for administration according to line specific nursing protocol. Once exam is complete flush line and de-access according to line specific nursing protocol in the CT contrast administration guidelines link. (Patient not taking: Reported on 10/18/2024) enteric contrast (will be provided with radiology test) For CT CHESTABD/PEL W IVCON Routine order Administer, As Directed One Time Only, via Oral, Rectal, both Oral and Rectal, Enteric Tube, Stoma or Indwelling Catheter, Enteric Contrast as designated per enteric contrast guidelines (Patient not taking: Reported on 10/18/2024) No current facility-administered medications for this visit. ALLERGIES No Known Allergies No past medical history on file. PAST SURGICAL HISTORY Procedure Laterality Date TONSILLECTOMY AND ADENOIDECTOMY FAMILY HISTORY Problem Relation Age of Onset Breast Cancer Mother Lung Cancer Father Cancer Sister Social History Tobacco Use Smoking status: Every Day Current packs/day: 1.00 Average packs/day: 1 pack/day for 54.1 years (54.1 ttl pk-yrs) Types: Cigarettes Start date: 1970 Smokeless tobacco: Never Vaping Use Vaping status: Never Used Substance Use Topics Alcohol use: Yes Comment: very seldom Drug use: Not Currently REVIEW OF SYSTEMS GENERAL: No weight loss, malaise or fevers. No night sweats. HEENT: Negative for headaches, No changes in hearing or vision, no nose bleeds or other nasal problems. RESPIRATORY: Negative for cough, wheezing and shortness of breath CARDIOVASCULAR: Negative for chest (more content not included)... [facility] 11-01-2024 Instructions Sancho Sánchez MD - 11/01/2024 1:57 PM EST Chemo teach for xeloda Starting radiation on 11/08/24 Will start xeloda on 11/08/24 F/u on 11/08/24 documented in this encounter [facility] 10-29-2024 Note HNO ID: [id number] Author: ALISON ISSA, manager delivery Service: Radiology Author Type: Territory Sales Representative Type: Progress Notes Filed: 10/29/2024 11:48 Note Text: Radiology Service Progress Note DATE OF SERVICE: October 29, 2024 TIME: 11:47 AM PATIENT IDENTITY VERIFICATION COMPLETED USING TWO (2) STANDARD IDENTIFIERS: Name and Date of confirmed by patient verbally. FALL SCREENING: Has the patient had 2 falls in the last year or 1 fall with injury or currently using an Ambulatory Assistive Device (Walker, Cane, Wheelchair, Crutches, etc.)? No PATIENT GENDER DATA: Assigned male at PATIENT RELEVANT IMPLANT DATA REVIEWED: Yes PATIENT PRESENTS WITH AN IMPLANTABLE OR ATTACHED PRODUCTION ZONE LEADER: No ALLERGIES: Reviewed and unchanged CONTRAST ALLERGY: NO. EXAM: MRI - CONTRAST TYPE: GROUP II PERIPHERAL IV DATA: Ambulatory: A peripheral IV was started in the Right antecubital site with a Butterfly: 23 gauge. RADIOLOGY DEPARTMENT: MR; Exam(s) Completed: Body: Rectal SIGNATURE: Alison Issa manager delivery PATIENT NAME: Bentley Gonzalez DATE: October 29, 2024 TIME: 11:47 AM [facility] 10-27-[address] - 10/27/2024 3:23 PM EST -aim for weight maintenance during treatment -aim for small frequent meals/snacks - eat around the clock every 3 hours versus waiting on hunger cues -include lean protein source at each meal/snack -discussed potential nutrition related side effects from treatment -Altered appetite, taste changes, nausea, vomiting, constipation, diarrhea -encouraged adequate hydration -aim for 60-64 ounces non-caffeine containing fluids -discussed oral nutrition supplements -currently not indicated -will consider if appetite declines and/or unintentional weight loss -incorporate calorie/protein boosting techniques at meals/snacks -whole milk, full fat dairy, cream, butter/margarine, full fat bray/dressing/condiments, oils, avocado, peanut butter, etc. documented in this encounter [facility] 10-27-2024 Note Education (NUTRSA) BENTLEY GONZALEZ ([id number]) 1960 M Date Time Provider Department 10/27/24 12:45 PM JOYCE VALLES Reason for Visit: Nutrition Assessment [1591] Visit Diagnosis:Rectal cancer (HCC) [C20] Order(s):CONSULT TO ONCOLOGY NUTRITION [6919973] Order #: [id number]: 1 During your visit today, we recorded the following information about you: Allergies As of Date: 10/27/2024 (No Known Allergies) Date Reviewed: 10/27/2024 Reviewed by: Joyce Valles RD - Fully Assessed Prescriptions as of 10/27/2024 - iv contrast (will be provided with radiology test) MRI Rectum Inject, intravenously, once for 1 dose. No IV access, insert saline lock prior to the beginning of sedation, infusion, injection of imaging exam. Discontinue saline lock post exam. If Pt has a central line or IVAD, may access for administration according to line specific nursing protocol. Once exam is complete flush line and de-access according to line specific nursing protocol in the MR contrast administration guidelines link. - enteric contrast (will be provided with radiology test) MRI RECTUM WO/W. Administer, As Directed One Time Only, via Oral, Rectal, both Oral and Rectal, Enteric Tube, Stoma or Indwelling Catheter,? Enteric Contrast as designated per enteric contrast guidelines - iv contrast (will be provided with radiology test) CT Chest ABD/PEL-Inject, intravenously, once for 1 dose.No IV access, insert saline lock prior to the beginning of sedation, infusion, injection of imaging exam. Discontinue saline lock post exam. If Pt. has a central line or IVAD, may access for administration according to line specific nursing protocol. Once exam is complete flush line and de-access according to line specific nursing protocol in the CT contrast administration guidelines link. - enteric contrast (will be provided with radiology test) For CT CHESTABD/PEL W IVCON Routine order Administer, As Directed One Time Only, via Oral, Rectal, both Oral and Rectal, Enteric Tube, Stoma or Indwelling Catheter, Enteric Contrast as designated per enteric contrast guidelines Encounter Status:Closed by JOYCE VALLES on 10/27/[address] [facility] 10-27-2024 History of Present illness Narrative Radiology Service Progress Note DATE OF SERVICE: October 27, 2024 TIME: 7:52 AM PATIENT WEIGHT: 121 LBS PATIENT IDENTITY VERIFICATION COMPLETED USING TWO (2) STANDARD IDENTIFIERS: Name and Date of confirmed by patient verbally. FALL SCREENING: Has the patient had 2 falls in the last year or 1 fall with injury or currently using an Ambulatory Assistive Device (Walker, Cane, Wheelchair, Crutches, etc.)? No PATIENT GENDER DATA: Assigned male at ALLERGIES: Reviewed and unchanged CONTRAST ALLERGY: No EXAM: CT -CONTRAST INDUCED NEPHROPATHY RISK FACTORS: Patient age > 60 years CREATININE: Creatinine Date Value Ref Range Status 10/18/2024 0.73 0.73 - 1.22 mg/dL Final Estimated Glomerular Filtration Rate Date Value Ref Range Status 10/18/2024 100 >=60 mL/min/1.73m Final Comment: Estimated Glomerular Filtration Rate (eGFR) is calculated using the 2020 CKD-EPI creatinine equation. This equation utilizes serum creatinine, sex, and age as parameters. The creatinine assay has traceable calibration to isotope dilution-mass spectrometry. Refer to KDIGO guidelines for clinical interpretation. In patients with unstable renal function, e.g. those with acute kidney injury, the eGFR may not accurately reflect actual GFR. P.O.C.T. RESULTS: POC done: Yes, See Lab Tab October 18, 2024 TREATMENT: N/A IV SITE: Ambulatory: A peripheral IV was started in the Right forearm with a Angio cath: 20 gauge. IV SITE APPEARANCE: Clean,Dry and Intact SIGNATURE: Michael Martinez RN PATIENT NAME: Bentley Gonzalez DATE: October 27, 2024 TIME: 8:41 AM Radiology Service Progress Note PATIENT NAME: Bentley Gonzalez DATE OF SERVICE: October 27, 2024 TIME: 9:03 AM PATIENT IDENTITY VERIFICATION COMPLETED USING TWO (2) IDENTIFIERS: Name and Date of confirmed by patient verbally. FALL SCREENING: Has the patient had 2 falls in the last year or 1 fall with injury or currently using an Ambulatory Assistive Device (Walker, Cane, Wheelchair, Crutches, etc.)? No PATIENT GENDER DATA: Assigned male at PATIENT RELEVANT IMPLANT DATA REVIEWED: Not Applicable PATIENT PRESENTS WITH AN IMPLANTABLE OR ATTACHED PRODUCTION ZONE LEADER: No RADIOLOGY DEPARTMENT: CT; Exam(s) Completed: Chest Abdomen Pelvis PERIPHERAL IV DATA: Site assessment: Clean,Dry and Intact, Site disposition Discontinued SIGNED BY: RT Cheyenne(Dior) October 27, 2024 9:03 AM documented in this encounter [facility] 10-27-2024 Note HNO ID: [id number] Author: PARAG MCGUIRE RT (R) Service: ? Author Type: Technologist Type: Progress Notes Filed: 10/27/2024 09:03 Note Text: Radiology Service Progress Note PATIENT NAME: Bentley Gonzalez DATE OF SERVICE: October 27, 2024 TIME: 9:03 AM PATIENT IDENTITY VERIFICATION COMPLETED USING TWO (2) IDENTIFIERS: Name and Date of confirmed by patient verbally. FALL SCREENING: Has the patient had 2 falls in the last year or 1 fall with injury or currently using an Ambulatory Assistive Device (Walker, Cane, Wheelchair, Crutches, etc.)? No PATIENT GENDER DATA: Assigned male at PATIENT RELEVANT IMPLANT DATA REVIEWED: Not Applicable PATIENT PRESENTS WITH AN IMPLANTABLE OR ATTACHED PRODUCTION ZONE LEADER: No RADIOLOGY DEPARTMENT: CT; Exam(s) Completed: Chest Abdomen Pelvis PERIPHERAL IV DATA: Site assessment: Clean,Dry and Intact, Site disposition Discontinued SIGNED BY: SHARRI Quinn) October 27, 2024 9:[address] [facility] 10-27-2024 Note HNO ID: [id number] Author: MICHAEL MARTINEZ RN Service: ? Author Type: Registered Nurse Type: Progress Notes Filed: 10/27/2024 08:42 Note Text: Radiology Service Progress Note DATE OF SERVICE: October 27, 2024 TIME: 7:52 AM PATIENT WEIGHT: 121 LBS PATIENT IDENTITY VERIFICATION COMPLETED USING TWO (2) STANDARD IDENTIFIERS: Name and Date of confirmed by patient verbally. FALL SCREENING: Has the patient had 2 falls in the last year or 1 fall with injury or currently using an Ambulatory Assistive Device (Walker, Cane, Wheelchair, Crutches, etc.)? No PATIENT GENDER DATA: Assigned male at ALLERGIES: Reviewed and unchanged CONTRAST ALLERGY: No EXAM: CT -CONTRAST INDUCED NEPHROPATHY RISK FACTORS: Patient age > 60 years CREATININE: Creatinine Date Value Ref Range Status 10/18/2024 0.73 0.73 - 1.22 mg/dL Final Estimated Glomerular Filtration Rate Date Value Ref Range Status 10/18/2024 100 >=60 mL/min/1.73m? Final Comment: Estimated Glomerular Filtration Rate (eGFR) is calculated using the 2020 CKD-EPI creatinine equation. This equation utilizes serum creatinine, sex, and age as parameters. The creatinine assay has traceable calibration to isotope dilution-mass spectrometry. Refer to KDIGO guidelines for clinical interpretation. In patients with unstable renal function, e.g. those with acute kidney injury, the eGFR may not accurately reflect actual GFR. P.O.C.T. RESULTS: POC done: Yes, See Lab Tab October 18, 2024 TREATMENT: N/A IV SITE: Ambulatory: A peripheral IV was started in the Right forearm with a Angio cath: 20 gauge. IV SITE APPEARANCE: Clean,Dry and Intact SIGNATURE: Michael Martinez RN PATIENT NAME: Bentley Gonzalez DATE: October 27, 2024 TIME: 8:[address] [facility] 10-27-2024 Note HNO ID: [id number] Author: JOYCE VALLES RD Service: ? Author Type: Registered Dietitian Type: Progress Notes Filed: 10/27/2024 15:23 Note Text: Oncology Nutrition Therapy Initial Assessment I have communicated my name and active licensure. The patient's identity and physical location were verified at the time of this visit. Either the patient or their legal customer service representative has been informed of the risks and benefits of -- and alternatives to -- treatment through a remote evaluation and consents to proceed with the evaluation remotely. RECOMMENDED MALNUTRITION DIAGNOSIS: NO MALNUTRITION IDENTIFIED Nutrition Diagnosis: Increased protein and energy needs related to hypermetabolic disease process as evidenced by need for weight maintenance and preservation of muscle mass. Nutrition Intervention: -aim for weight maintenance during treatment -aim for small frequent meals/snacks - eat around the clock every 3 hours versus waiting on hunger cues -include lean protein source at each meal/snack -discussed potential nutrition related side effects from treatment -Altered appetite, taste changes, nausea, vomiting, constipation, diarrhea -encouraged adequate hydration -aim for 60-64 ounces non-caffeine containing fluids -discussed oral nutrition supplements -currently not indicated -will consider if appetite declines and/or unintentional weight loss -incorporate calorie/protein boosting techniques at meals/snacks -whole milk, full fat dairy, cream, butter/margarine, full fat bray/dressing/condiments, oils, avocado, peanut butter, etc. -provided contact information for any further questions/concerns Nutrition Monitoring AND Evaluation: -PO Intake -Wt status -BM's -Biochemical Markers -Plan of care Patient's current symptoms are: None Patient presents for nutrition counseling for: Rectal Cancer. Pt did have simulation for RT today. Per chart review, plans for potential chemotherapy still pending. PMHx: per pt, diverticulitis, and states he was diagnosed with diabetes a couple of years ago. He states he does not take medication and watches his carbohydrate intakes. Pt denies any chewing/swallowing issues, denies current N/V/D/C. Pt was having difficulty with constipation but is now controlled with Miralax. Pt denies food allergies/intolerances. Pt endorses good appetite and intakes stating I eat anything and everything all the day. 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 Pt reports a typical day's intake as follows: B: sometimes skips. Always has coffee L: when working, typically fast food. Will order the meal- sandwich/fries/soda Snack: sandwich or leftovers D: protein/starch/veg Snack: 1-2 sandwiches or some pizza Fluids: regular root beer, regular coffee 4-5 cups per day Reviewed with pt importance of adequate calories/protein and preserving lean muscle mass. Reviewed above interventions, problem solved with pt on ways to meet recommendations, and answered all of patient's questions. Thank you for allowing me to participate in the care of this pt. Readiness to Learn: Cognitive ability: Alert and oriented Motivation to learn: Interested Family support: Unable to assess - Family not present Instruction provided to: Patient Patient learns best by: Individual Instruction Factors affecting learning: None Physical limitations affecting learning: None Educational materials provided: none this visit Anthropometrics: Height: Last 1 Encounter Ht Readings: Date: Ht: 10/18/2024 171.5 cm (5' 7.5 ) Current weight: Last 1 Encounter Wt Readings: Date: Wt: 10/18/2024 52.2 kg (115 lb 1.3 oz) Estimated body mass index is 17.75 kg/m? as calculated from the following: Height as of 1/13/25: 171.5 cm (5' 7.52 ). Weight as of 10/18/24: 52.2 kg (115 lb 1.3 oz). Resting Metabolic Rate: 1273 Weight Change: pt denies any recent significant changes. UBW: 115-120#, pt stated Dosing Weight: 52.2 kg Estimated kilocalorie needs: 4542-3680 kilocalories determined by 30-35 kcal/kg Estimated protein needs: 63-78 grams determined by 1.2-1.5 g/kg Dosing weight Estimated fluid needs: ~2778-4121 milliliters based on 1 mL per kcal (unless otherwise indicated) Nutrition Focused Physical Exam: Unable to perform exam due to patient unable to participate due to encounter type (phone), will re-attempt during reassessment. Potential Signs of Inflammation: chronic condition Allergies: Patient has no known allergies. Medications: Current Outpatient Medications Medication Sig Dispense Refill iv contrast (will be provided with radiology test) MRI Rectum Inject, intravenously, once for 1 dose. No IV access, insert saline lock prior to the beginning of sedation, infusion, injection of imaging exam. Discontinue saline lock post exam. If Pt has a central line or IVAD, may access for administration according to line specific nursing protocol (more content not included)... [facility] 10-27-2024 History of Present illness Narrative Oncology Nutrition Therapy Initial Assessment I have communicated my name and active licensure. The patient's identity and physical location were verified at the time of this visit. Either the patient or their legal customer service representative has been informed of the risks and benefits of -- and alternatives to -- treatment through a remote evaluation and consents to proceed with the evaluation remotely. RECOMMENDED MALNUTRITION DIAGNOSIS: NO MALNUTRITION IDENTIFIED Nutrition Diagnosis: Increased protein and energy needs related to hypermetabolic disease process as evidenced by need for weight maintenance and preservation of muscle mass. Nutrition Intervention: -aim for weight maintenance during treatment -aim for small frequent meals/snacks - eat around the clock every 3 hours versus waiting on hunger cues -include lean protein source at each meal/snack -discussed potential nutrition related side effects from treatment -Altered appetite, taste changes, nausea, vomiting, constipation, diarrhea -encouraged adequate hydration -aim for 60-64 ounces non-caffeine containing fluids -discussed oral nutrition supplements -currently not indicated -will consider if appetite declines and/or unintentional weight loss -incorporate calorie/protein boosting techniques at meals/snacks -whole milk, full fat dairy, cream, butter/margarine, full fat bray/dressing/condiments, oils, avocado, peanut butter, etc. -provided contact information for any further questions/concerns Nutrition Monitoring & Evaluation: -PO Intake -Wt status -BM's -Biochemical Markers -Plan of care Patient's current symptoms are: None Patient presents for nutrition counseling for: Rectal Cancer. Pt did have simulation for RT today. Per chart review, plans for potential chemotherapy still pending. PMHx: per pt, diverticulitis, and states he was diagnosed with diabetes a couple of years ago. He states he does not take medication and watches his carbohydrate intakes. Pt denies any chewing/swallowing issues, denies current N/V/D/C. Pt was having difficulty with constipation but is now controlled with Miralax. Pt denies food allergies/intolerances. Pt endorses good appetite and intakes stating I eat anything and everything all the day. 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 Pt reports a typical day's intake as follows: B: sometimes skips. Always has coffee L: when working, typically fast food. Will order the meal- sandwich/fries/soda Snack: sandwich or leftovers D: protein/starch/veg Snack: 1-2 sandwiches or some pizza Fluids: regular root beer, regular coffee 4-5 cups per day Reviewed with pt importance of adequate calories/protein and preserving lean muscle mass. Reviewed above interventions, problem solved with pt on ways to meet recommendations, and answered all of patient's questions. Thank you for allowing me to participate in the care of this pt. Readiness to Learn: Cognitive ability: Alert and oriented Motivation to learn: Interested Family support: Unable to assess - Family not present Instruction provided to: Patient Patient learns best by: Individual Instruction Factors affecting learning: None Physical limitations affecting learning: None Educational materials provided: none this visit Anthropometrics: Height: Last 1 Encounter Ht Readings: Date: Ht: 10/18/2024 171.5 cm (5' 7.5 ) Current weight: Last 1 Encounter Wt Readings: Date: Wt: 10/18/2024 52.2 kg (115 lb 1.3 oz) Estimated body mass index is 17.75 kg/m as calculated from the following: Height as of 10/18/24: 171.5 cm (5' 7.52 ). Weight as of 10/18/24: 52.2 kg (115 lb 1.3 oz). Resting Metabolic Rate: 1273 Weight Change: pt denies any recent significant changes. UBW: 115-120#, pt stated Dosing Weight: 52.2 kg Estimated kilocalorie needs: 6547-9294 kilocalories determined by 30-35 kcal/kg Estimated protein needs: 63-78 grams determined by 1.2-1.5 g/kg Dosing weight Estimated fluid needs: ~1865-1878 milliliters based on 1 mL per kcal (unless otherwise indicated) Nutrition Focused Physical Exam: Unable to perform exam due to patient unable to participate due to encounter type (phone), will re-attempt during reassessment. Potential Signs of Inflammation: chronic condition Allergies: Patient has no known allergies. Medications: Current Outpatient Medications Medication Sig Dispense Refill iv contrast (will be provided with radiology test) MRI Rectum Inject, intravenously, once for 1 dose. No IV access, insert saline lock prior to the beginning of sedation, infusion, injection of imaging exam. Discontinue saline lock post exam. If Pt has a central line or IVAD, may access for administration according to line specific nursing protocol. Once exam is complete flush line and de-access according to line specific nursing protocol in the MR contrast administration guidelines link. (Patient not taking: Reported on 10/18/2024) 1 Each 0 enteric contrast (will be provided with radiology test) MRI RECTUM WO/W. Administer, As Directed One Time Only, via Oral, Rectal, both Oral and Rectal, Enteric Tube, Stoma or Indwelling Catheter, Enteric Contrast as designated per enteric contrast guidelines (Patient not taking: Reported on 10/18/2024) 1 Each 0 iv contrast (will be provided with radiology test) CT Chest ABD/PEL-Inject, intravenously, once for 1 dose.No IV access, insert saline lock prior to the beginning of sedation, infusion, injection of imaging exam. Discontinue saline lock post exam. If Pt. has a central line or IVAD, may access for administration according to line specific nursing protocol. Once exam is complete flush line and de-access according to line specific nursing protocol in the CT contrast administration guidelines link. (Patient not taking: Reported on 10/18/2024) 1 Each 0 enteric contrast (will be provided with radiology test) For CT CHESTABD/PEL W IVCON Routine order Administer, As Directed One Time Only, via Oral, Rectal, both Oral and Rectal, Enteric Tube, Stoma or Indwelling Catheter, Enteric Contrast as designated per enteric contrast guidelines (Patient not taking: Reported on 10/18/2024) 1 Each 0 No current facility-administered medications for this visit. Need for Follow up: will continue to follow Referred by: Liam SCHUMACHER Billing Type: Initial Assess/15 min 2 units Time Spent with Patient: 30 minutes Signed by: Joyce Valles RD, CONTENT ENGINEER, LD documented in this encounter [facility] 10-26-2024 Note HNO ID: [id number] Author: SANDHYA KIM LSW Service: ? Author Type: Health Science Specialist Type: Progress Notes Filed: 10/26/2024 11:50 Note Text: SOCIAL WORK FOLLOW UP NOTE: [facility] Date of service:10/26/24 Bentley Gonzalez is being seen for a follow up social work visit. Today's visit includes: patient TOPICS ADDRESSED: community resources PLAN: Assist with financial support applications and Continue follow up as needed Assigned SW listed in Care Team tab: Yes Patient requested to speak with this SW. Patient brought in a form from [employer] and asked if this SW would complete the medical authorization section. Section was completed and the intake form was faxed to [employer]. Patient was given the original form. No other needs or concerns were identified. SW will remain available and will follow up as appropriate. SEBASTIAN Cosby Goals of Care Advance Directives are not on file. [facility] 10-26-2024 History of Present illness Narrative SOCIAL WORK FOLLOW UP NOTE: [facility] Date of service:10/26/24 Bentley Gonzalez is being seen for a follow up social work visit. Today's visit includes: patient TOPICS ADDRESSED: community resources PLAN: Assist with financial support applications and Continue follow up as needed Assigned SW listed in Care Team tab: Yes Patient requested to speak with this SW. Patient brought in a form from [employer] and asked if this SW would complete the medical authorization section. Section was completed and the intake form was faxed to [facility]. Patient was given the original form. No other needs or concerns were identified. SW will remain available and will follow up as appropriate. SEBASTIAN Cosby Goals of Care Advance Directives are not on file. documented in this encounter [facility] 10-26-2024 Note HNO ID: [id number] Author: Sherrie MONSON MD Service: ? Author Type: Physician Type: Progress Notes Filed: 10/26/2024 12:34 Note Text: [facility] 10-26-2024 History of Present illness Narrative sim documented in this encounter [facility] 10-26-2024 Note HNO ID: [id number] Author: Sherrie MONSON MD Service: ? Author Type: Physician Type: Progress Notes Filed: 10/26/2024 12:33 Note Text: sim [facility] 10-26-2024 History of Present illness Narrative sim documented in this encounter [facility] 10-26-2024 History of Present illness Narrative BENTLEY GONZALEZ [id number] 10/26/2024 [facility] Radiation Oncology Department SIMULATION NOTE DATE OF SIMULATION: 10/26/2024 THERAPIST: Magalis Quesadaaine MACHINE: [employer] DIAGNOSIS: Malignant neoplasm of [id number] AREA: Pelvis CONTRAST: None Consent in Epic: Yes PATIENT POSITION: Supine. FIXATION DEVICE: In order to achieve accurate and reproducible treatments, the patient is immobilized with orfit AIO A time-out was conducted and recorded by the therapist. CT scan was completed for target localization and planning. Field arrangement will be determined after plan has been completed. The patient is scheduled for a verification simulation on the treatment machine to ensure proper set-up and field arrangement is correct prior to the first treatment of primary and boost sanderson if applicable. Patient education will be completed per nursing. Electronically Signed Jack Monson M.D. / CDT 53:41 PM documented in this encounter [facility] 10-26-2024 History of Present illness Narrative BENTLEY GONZALEZ [id number] 10/26/2024 [facility] Department of Radiation Oncology Treatment Planning Note For reasons stated in the consult note, Bentley Gonzalez is a candidate for radiation therapy. Based on review and interpretation of the relevant diagnostic studies together with the exam findings, Bentley Gonzalez was simulated on 10/26/2024 at which time the target volume and/or requisite sanderson were delineated, as indicated in the simulation note, to be treated according to the prescription. The treatment target and organs at risk were contoured on the simulation scan using the fused MRI /. After reviewing multiple treatment plans with dosimetry, the best plan was approved to deliver the prescribed course of radiation to the target area using inverse planning to allow for the best isodose distribution, treating to the 98.5% isodose line with 10MV and 3 sanderson. Custom MLC asym jaws for IMRT were the treatment devices used to shape/modify the beams. Limiting dose to normal tissue was confirmed upon review of the calculated dose volume histogram. IMRT planning was used because it best met the dose/volume constraints for the organs at risk for this patient, better than what could be achieved using conventional or 3D planning. The specific dose requirements for the PTV, organs at risk and dose-volume histograms are contained in this treatment plan and/or elsewhere in the medical record. A completed summary of this plan dated 11/04/2024 incorporated herein by reference includes dose, beam arrangements, energy, blocking, isodose distribution, and/or ports and DVH. Electronically Signed Jack Monson M.D. 512:36 PM documented in this encounter [facility] 10-26-2024 Note HNO ID: [id number] Author: Sherrie MONSON MD Service: ? Author Type: Physician Type: Progress Notes Filed: 10/28/2024 15:41 Note Text: BENTLEY GONZALEZ [id number] 10/26/2024 [facility] Radiation Oncology Department SIMULATION NOTE DATE OF SIMULATION: 10/26/2024 THERAPIST: Magalis Grace MACHINE: [employer] mCT DIAGNOSIS: Malignant neoplasm of [id number] AREA: Pelvis CONTRAST: None Consent in Epic: Yes PATIENT POSITION: Supine. FIXATION DEVICE: In order to achieve accurate and reproducible treatments, the patient is immobilized with orfit AIO A time-out was conducted and recorded by the therapist. CT scan was completed for target localization and planning. Field arrangement will be determined after plan has been completed. The patient is scheduled for a verification simulation on the treatment machine to ensure proper set-up and field arrangement is correct prior to the first treatment of primary and boost sanderson if applicable. Patient education will be completed per nursing. Electronically Signed Jack Monson M.D. / SWATIT 53:[address] [facility] 10-26-2024 Note HNO ID: [id number] Author: Sherrie MONSON MD Service: ? Author Type: Physician Type: Progress Notes Filed: 11/04/2024 12:36 Note Text: BENTLEY GONZALEZ [id number] 10/26/2024 [facility] Department of Radiation Oncology Treatment Planning Note For reasons stated in the consult note, Bentley Gonzalez is a candidate for radiation therapy. Based on review and interpretation of the relevant diagnostic studies together with the exam findings, Bentley Gonzalez was simulated on 10/26/2024 at which time the target volume and/or requisite sanderson were delineated, as indicated in the simulation note, to be treated according to the prescription. The treatment target and organs at risk were contoured on the simulation scan using the fused MRI /. After reviewing multiple treatment plans with dosimetry, the best plan was approved to deliver the prescribed course of radiation to the target area using inverse planning to allow for the best isodose distribution, treating to the 98.5% isodose line with 10MV and 3 sanderson. Custom MLC asym jaws for IMRT were the treatment devices used to shape/modify the beams. Limiting dose to normal tissue was confirmed upon review of the calculated dose volume histogram. IMRT planning was used because it best met the dose/volume constraints for the organs at risk for this patient, better than what could be achieved using conventional or 3D planning. The specific dose requirements for the PTV, organs at risk and dose-volume histograms are contained in this treatment plan and/or elsewhere in the medical record. A completed summary of this plan dated 11/04/2024 incorporated herein by reference includes dose, beam arrangements, energy, blocking, isodose distribution, and/or ports and DVH. Electronically Signed Jack Monson M.D. 512:[address] [facility] 10-19-2024 Telephone encounter Note Spoke to Sancho Hagan scheduled 10/26 arrival at 1015 with a full bladder [facility] 10-19-2024 Miscellaneous Notes Spoke to Sancho Hagan scheduled 10/26 arrival at 1015 with a full bladder Sim scheduled at 11:00 on 10/26/24 PSS - Please add sim to ct scanner schedule at 11:00 x 45 min (SIM PRONE PELVIS) - Schedule presim consent with ELISEO at 1030 - Notify pt of 1015 arrival time, full bladder Thanks! Eva Gibson, RT(R) (T) Nurse Ed Scheduled PSS/RT: Please schedule SIM treating pelvis with full bladder-next wk Needs Presim consent Nurse Ed today Consult Arlinan Thanks Barbie Causey RN documented in this encounter [facility] 10-19-2024 Telephone encounter Note Sim scheduled at 11:00 on 10/26/24 PSS - Please add sim to ct scanner schedule at 11:00 x 45 min (SIM PRONE PELVIS) - Schedule presim consent with ELISEO at 1030 - Notify pt of 1015 arrival time, full bladder Thanks! Eva Gibson RT(R) (T) [facility] Work Phone: 10-18-2024 History of Present illness Narrative Images from the original note were not included. PATIENT NAME: Bentley Gonzalez [facility] NO.: [id number] ATTENDING PHYSICIAN: Sancho Sánchez MD DATE OF SERVICE: October 18, [address] Raz Tucker [id number] [address] [facility] [id number] thank you for referring Bentley Gonzalez for an opinion regarding Rectal cancer. CHIEF COMPLAINT: Rectal cancer HPI: Bentley Gonzalez is a 64 year old year old male with no significant PMH referred to us for rectal mass. He reports months of hematochezia as well as change in bowel habits prompting him to present for endoscopic evaluation. On colonoscopy, he was found to have a rectal mass on LUIS ANTONIO and on endoscopic evaluation, pediatric scope could not be advanced past the mass. Biopsy was taken and result showed adenoca. He presents for further evaluation and management. Patient reports that his difficulty defecating included small pellet-like stools, ~10 times a day, which has improved since he started taking MiraLAX daily. He now has large volume stool but still go multiple times a day. His hematochezia is also resolved. Seen by surgeon . Scheduled for scans on 10/27/23. No family history of colon ca. Works in construction and randy. Smokes 1 pk/day for many yrs. Current Outpatient Medications Medication Sig iv contrast (will be provided with radiology test) MRI Rectum Inject, intravenously, once for 1 dose. No IV access, insert saline lock prior to the beginning of sedation, infusion, injection of imaging exam. Discontinue saline lock post exam. If Pt has a central line or IVAD, may access for administration according to line specific nursing protocol. Once exam is complete flush line and de-access according to line specific nursing protocol in the MR contrast administration guidelines link. enteric contrast (will be provided with radiology test) MRI RECTUM WO/W. Administer, As Directed One Time Only, via Oral, Rectal, both Oral and Rectal, Enteric Tube, Stoma or Indwelling Catheter, Enteric Contrast as designated per enteric contrast guidelines iv contrast (will be provided with radiology test) CT Chest ABD/PEL-Inject, intravenously, once for 1 dose.No IV access, insert saline lock prior to the beginning of sedation, infusion, injection of imaging exam. Discontinue saline lock post exam. If Pt. has a central line or IVAD, may access for administration according to line specific nursing protocol. Once exam is complete flush line and de-access according to line specific nursing protocol in the CT contrast administration guidelines link. enteric contrast (will be provided with radiology test) For CT CHESTABD/PEL W IVCON Routine order Administer, As Directed One Time Only, via Oral, Rectal, both Oral and Rectal, Enteric Tube, Stoma or Indwelling Catheter, Enteric Contrast as designated per enteric contrast guidelines No current facility-administered medications for this visit. ALLERGIES No Known Allergies No past medical history on file. No past surgical history on file. No family history on file. Social History Tobacco Use Smoking status: Every Day Types: Cigarettes Smokeless tobacco: Never REVIEW OF SYSTEMS GENERAL: No weight loss, malaise or fevers. No night sweats. HEENT: Negative for headaches, No changes in hearing or vision, no nose bleeds or other nasal problems. RESPIRATORY: Negative for cough, wheezing and shortness of breath CARDIOVASCULAR: Negative for chest pain, leg swelling and palpitations GI: Negative for abdominal discomfort, blood in stools or black stools and change in bowel habits : Negative for dysuria, frequency and incontinence MUSCULOSKELETAL: Negative for joint pain or swelling, back pain, and muscle pain. SKIN: Negative for lesions, rash, and itching. HEMATOLOGY/LYMPHOLOGY Negative for prolonged bleeding, bruising easily, and swollen nodes. NEURO: Negative for numbness or tingling of hands/feet. No weakness. PHYSICAL EXAMINATION: There were no vitals taken for this visit. There were no vitals taken for this visit. No data found for this vital: Wt General appearance:ECOG PERFORMANCE STATUS: 0- Fully active, able to carry on all pre-disease performance w/o restriction. Patient in NAD. Skin: Skin color, texture, turgor normal. No rashes or lesions. Eyes: Anicteric sclera. Pupils are equally round and reactive to light. Extraocular movements are intact. Breast: No palpable breast masses. No nipple change or discharge. Lymph Nodes: No cervical, supraclavicular, axillary or inguinal adenopathy. Oropharynx: Lips, mucosa, and tongue normal. Back: No pain to percussion. Negative SLR test Lungs clear to auscultation, No wheezing or rhonchi Heart: RRR without murmur, gallop, or rubs. Abdomen soft, non-tender. No masses, organomegaly Extremities: No deformities. No edema Neuro: Gait and speech normal. Reflexes normal and symmetric. Muscular strength intact. Sensation grossly intact. Rectal: Deferred : Deferred LABS: No results found for: GLUC , K , NA , CHLOR , CO2 , CREAT , BUN , ANION , CA , TPROT , ALB , TBILI , ALKPHOS , AST , ALT No results found for: WBC , RBC , HB , HCT , MCV , MCH , MCHC , RDWCV , PLT , MPV , NEUT , ABSNEUT , LYMPHP , ABSLYMPH , MONOP , ABSMONO , EOSINP , ABSEOSIN , BASOP , ABSBASO PATH: IMAGING: ASSESSMENT AND PLAN: Bentley Gonzalez is a 64 year old year old male referred to us for newly diagnosed rectal adenoca. PS 0. PLAN: - Rectal mass biopsy showed invasive moderately differentiated adenoca. - Scheduled for CT and MRI scan next week. - Seen by Rad Onc today - He is able to pass bowel movements with laxatives. - Diverting colostomy if needed as per surgeon. F/u with . - Will do CAR approach including chemoRT followed by FOLFOX if no metastasis on imaging studies. - Check CBC CMP CEA - All his questions answered in detail - F/u in [address] Raz Tucker [id number] [address] [facility] [id number] thank you for allowing me to participate in Bentley Gonzalez care, if there are any questions or concerns please do not hesitate to contact me at the number below. I spent a total of 60 minutes on the date of the service which included preparing to see the patient, [id number] patient care, completing clinical documentation, obtaining and/or reviewing separately obtained history, performing a medically appropriate examination, counseling and educating the patient/family/caregiver, ordering medications, tests, or procedures, communicating with other HCPs (not separately reported), independently interpreting results (not separately reported), communicating results to the patient/family/caregiver, and care coordination (not separately reported). Sancho Sánchez MD. Hematology/Medical Oncology [facility] [address]ki [phone] CC: documented in this encounter [facility] 10-18-2024 Note HNO ID: [id number] Author: SANCHO SÁNCHEZ MD Service: ? Author Type: Physician Type: Progress Notes Filed: 10/18/2024 11:13 Note Text: PATIENT NAME: Bentley Gonzalez [facility] NO.: [id number] ATTENDING PHYSICIAN: Sancho Sánchez MD DATE OF SERVICE: October 18, [address] Raz Tucker [id number] [address] [facility] [address] thank you for referring Bentley Gonzalez for an opinion regarding Rectal cancer. CHIEF COMPLAINT: Rectal cancer HPI: Bentley Gonzalez is a 64 year old year old male with no significant PMH referred to us for rectal mass. He reports months of hematochezia as well as change in bowel habits prompting him to present for endoscopic evaluation. On colonoscopy, he was found to have a rectal mass on LUIS ANTONIO and on endoscopic evaluation, pediatric scope could not be advanced past the mass. Biopsy was taken and result showed adenoca. He presents for further evaluation and management. Patient reports that his difficulty defecating included small pellet-like stools, ~10 times a day, which has improved since he started taking MiraLAX daily. He now has large volume stool but still go multiple times a day. His hematochezia is also resolved. Seen by surgeon . Scheduled for scans on 10/27/23. No family history of colon ca. Works in construction and randy. Smokes 1 pk/day for many yrs. Current Outpatient Medications Medication Sig iv contrast (will be provided with radiology test) MRI Rectum Inject, intravenously, once for 1 dose. No IV access, insert saline lock prior to the beginning of sedation, infusion, injection of imaging exam. Discontinue saline lock post exam. If Pt has a central line or IVAD, may access for administration according to line specific nursing protocol. Once exam is complete flush line and de-access according to line specific nursing protocol in the MR contrast administration guidelines link. enteric contrast (will be provided with radiology test) MRI RECTUM WO/W. Administer, As Directed One Time Only, via Oral, Rectal, both Oral and Rectal, Enteric Tube, Stoma or Indwelling Catheter, Enteric Contrast as designated per enteric contrast guidelines iv contrast (will be provided with radiology test) CT Chest ABD/PEL-Inject, intravenously, once for 1 dose.No IV access, insert saline lock prior to the beginning of sedation, infusion, injection of imaging exam. Discontinue saline lock post exam. If Pt. has a central line or IVAD, may access for administration according to line specific nursing protocol. Once exam is complete flush line and de-access according to line specific nursing protocol in the CT contrast administration guidelines link. enteric contrast (will be provided with radiology test) For CT CHESTABD/PEL W IVCON Routine order Administer, As Directed One Time Only, via Oral, Rectal, both Oral and Rectal, Enteric Tube, Stoma or Indwelling Catheter, Enteric Contrast as designated per enteric contrast guidelines No current facility-administered medications for this visit. ALLERGIES No Known Allergies No past medical history on file. No past surgical history on file. No family history on file. Social History Tobacco Use Smoking status: Every Day Types: Cigarettes Smokeless tobacco: Never REVIEW OF SYSTEMS GENERAL: No weight loss, malaise or fevers. No night sweats. HEENT: Negative for headaches, No changes in hearing or vision, no nose bleeds or other nasal problems. RESPIRATORY: Negative for cough, wheezing and shortness of breath CARDIOVASCULAR: Negative for chest pain, leg swelling and palpitations GI: Negative for abdominal discomfort, blood in stools or black stools and change in bowel habits : Negative for dysuria, frequency and incontinence MUSCULOSKELETAL: Negative for joint pain or swelling, back pain, and muscle pain. SKIN: Negative for lesions, rash, and itching. HEMATOLOGY/LYMPHOLOGY Negative for prolonged bleeding, bruising easily, and swollen nodes. NEURO: Negative for numbness or tingling of hands/feet. No weakness. PHYSICAL EXAMINATION: There were no vitals taken for this visit. There were no vitals taken for this visit. No data found for this vital: Wt General appearance:ECOG PERFORMANCE STATUS: 0- Fully active, able to carry on all pre-disease performance w/o restriction. Patient in NAD. Skin: Skin color, texture, turgor normal. No rashes or lesions. Eyes: Anicteric sclera. Pupils are equally round and reactive to light. Extraocular movements are intact. Breast: No palpable breast masses. No nipple change or discharge. Lymph Nodes: No cervical, supraclavicular, axillary or inguinal adenopathy. Oropharynx: Lips, mucosa, and tongue normal. Back: No pain to percussion. Negative SLR test Lungs clear to auscultation, No wheezing or rhonchi Heart: RRR without murmur, gallop, or rubs. Abdomen soft, non-tender. No masses, organomegaly Extremities: No deformities. N (more content not included)... [facility] 10-18-2024 Instructions Sancho Sánchez MD - 10/18/2024 10:58 AM EST Labs today Scans scheduled next week F/u in 2 weeks documented in this encounter [facility] 10-18-2024 Note HNO ID: [id number] Author: BARBIE CAUSEY RN Service: ? Author Type: Registered Nurse Type: Progress Notes Filed: 10/18/2024 10:29 Note Text: Radiation Therapy - Patient Education Note PATIENT NAME: Bentley Gonzalez PATIENT October 18, 2024 [facility] FACILITY/LOCATION: [facility] READINESS TO LEARN Cognitive Ability: Alert and oriented Motivation to learn: Interested Family Support: High - Very involved in pt care Instruction provide to: Patient and Spouse Patient learns best by: Multiple Methods Factors effecting learning: None Physical limitations effecting learning: None LEARNING RESPONSE Diagnosis: Pt simulated today for radiation therapy to pelvis. Education Topic/Teaching Points: Radiation therapy, Side effects, and OTV: Method of instruction: Written instruction/Handouts Verbal instruction Patient /Family response: Patient and family verbalized understanding of radiation treatments, side effects, OTV, and transportation. Follow-up plan: Patient instructed to call with any further issues Recommend - Recommend continued instruction and follow up as directed Contact information given. Supplemental material: Informational handouts on Bladder function, Diarrhea, Fatigue, Pelvic handout, Skin changes, and patient education binder. Referral (recommendation): Dietitian Was PED reviewed? No Patient has an Onbody or Implanted device: No Signed by: Barbie Causey RN [facility] 10-18-2024 History of Present illness Narrative Radiation Therapy - Patient Education Note PATIENT NAME: Bentley Gonzalez PATIENT October 18, 2024 [facility] FACILITY/LOCATION: [facility] READINESS TO LEARN Cognitive Ability: Alert and oriented Motivation to learn: Interested Family Support: High - Very involved in pt care Instruction provide to: Patient and Spouse Patient learns best by: Multiple Methods Factors effecting learning: None Physical limitations effecting learning: None LEARNING RESPONSE Diagnosis: Pt simulated today for radiation therapy to pelvis. Education Topic/Teaching Points: Radiation therapy, Side effects, and OTV: Method of instruction: Written instruction/Handouts Verbal instruction Patient /Family response: Patient and family verbalized understanding of radiation treatments, side effects, OTV, and transportation. Follow-up plan: Patient instructed to call with any further issues Recommend - Recommend continued instruction and follow up as directed Contact information given. Supplemental material: Informational handouts on Bladder function, Diarrhea, Fatigue, Pelvic handout, Skin changes, and patient education binder. Referral (recommendation): Dietitian Was PED reviewed? No Patient has an Onbody or Implanted device: No Signed by: Barbie Causey RN documented in this encounter [facility] 10-18-2024 Telephone encounter Note Nurse Ed Scheduled [facility] 10-18-2024 Telephone encounter Note PSS/RT: Please schedule SIM treating pelvis with full bladder-next wk Needs Presim consent Nurse Ed today Consult Dieitican Thanks Barbie Causey RN [facility] 10-18-2024 History of Present illness Narrative Radiation Oncology - New Patient/Consult Note PATIENT NAME: Bentley Gonzalez PATIENT REQUESTING PROVIDER: Raz Tucker MD OTHER PROVIDERS: Dr. Clemente, Dr. Donohue, Dr. Sánchez DIAGNOSIS: Rectal cancer,, adenocarcinoma, locally advanced HPI: 64 year old male who presents with above diagnosis, for an opinion regarding the role of radiation therapy in the management of the patient's disease. Final recommendations will be communicated back to the requesting physician by way of the shared medical record, or letter to requesting physician via [place] mail. Patient presented with rectal bleeding and change in bowel habits since approximately May. He underwent recent evaluation including colonoscopy with the finding of a rectal mass follow-up on digital rectal exam endoscopy. Colonoscopy 09/24/2024: Firm circumferential rectal mass within the distal rectum, endoscopy demonstrating circumferential mass, pediatric colonoscope could not advance beyond the mass, biopsies taken. Pathology demonstrating: Moderate differentiated adenocarcinoma. Patient complains of change in bowel habits, constipation, only able to pass small stools multiple times per day. This has improved after starting MiraLAX. Rectal bleeding intermittently but nothing recently. Denies any pelvic pain. No bladder related issues. He has been seen by Dr. Tucker, and colorectal surgery. He is scheduled for further staging including CT evaluation 10/27/2023 and MRI rectal evaluation 10/29/2023. He is here today to discuss potential of radiation in the management of his newly diagnosed locally advanced rectal cancer. He denies any further bleeding of the past couple weeks. Is doing better on MiraLAX in terms of having bowel movements. Occasional cramping. No other pain. He admits about 10 pounds of weight loss. ALLERGIES No Known Allergies Current Outpatient Medications on File Prior to Visit Medication Sig iv contrast (will be provided with radiology test) MRI Rectum Inject, intravenously, once for 1 dose. No IV access, insert saline lock prior to the beginning of sedation, infusion, injection of imaging exam. Discontinue saline lock post exam. If Pt has a central line or IVAD, may access for administration according to line specific nursing protocol. Once exam is complete flush line and de-access according to line specific nursing protocol in the MR contrast administration guidelines link. enteric contrast (will be provided with radiology test) MRI RECTUM WO/W. Administer, As Directed One Time Only, via Oral, Rectal, both Oral and Rectal, Enteric Tube, Stoma or Indwelling Catheter, Enteric Contrast as designated per enteric contrast guidelines iv contrast (will be provided with radiology test) CT Chest ABD/PEL-Inject, intravenously, once for 1 dose.No IV access, insert saline lock prior to the beginning of sedation, infusion, injection of imaging exam. Discontinue saline lock post exam. If Pt. has a central line or IVAD, may access for administration according to line specific nursing protocol. Once exam is complete flush line and de-access according to line specific nursing protocol in the CT contrast administration guidelines link. enteric contrast (will be provided with radiology test) For CT CHESTABD/PEL W IVCON Routine order Administer, As Directed One Time Only, via Oral, Rectal, both Oral and Rectal, Enteric Tube, Stoma or Indwelling Catheter, Enteric Contrast as designated per enteric contrast guidelines No current facility-administered medications on file prior to visit. History reviewed. No pertinent past medical history. Prior radiation therapy, collagen vascular disease, or inflammatory bowel disease: No Any implanted or external electric devices? 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 Occasional abdominal cramping with constipation KPS: 100 General Appearance: Alert and oriented. No acute distress. HEENT: NCAT. Sclera anicteric. PERRL. EOMI. Neck: Normal ROM. No palpable cervical or supraclavicular adenopathy. Chest: No respiratory distress. Lungs clear to auscultation bilaterally. Heart: Regular rate and rhythm. Abdomen: Soft. Nontender. Nondistended. Rectal deferred Musculoskeletal: No edema. Normal ROM in extremities. No bone or spine tenderness. Neuro: Speech fluent. Gait normal. No focal deficits. Skin: No rashes noted Lymphatics: No palpable lymphadenopathy. Hematologic: No signs of active bleeding. RADIOLOGY/LABORATORY DATA: see HPI ASSESSMENT AND PLAN: Locally advanced adenocarcinoma the rectum. Patient is still undergoing workup and evaluation with planned CT and MRI scheduled next week. It does appear he has a locally advanced adenocarcinoma of the rectum. I did discuss with him possibility of radiation in the context of CAR with concurrent chemotherapy. Potential acute and long-term effects of radiation discussed. Patient expressed an understanding of the information presented. Will plan to have him back next week for simulation in anticipation of radiation treatments. Should he be found to have significant metastatic disease in consideration of short course radiation for local control palliation would be further discussed. Signed by: Sherrie Monson MD cc: To use this Smartlink, specify the provider ID whose address you want to display, e.g., .[email or web address][1 (where 1 is the provider ID). Raz Tucker [id number] [address] [facility] [address] Pacemaker/Defibrillator?N Previous Cancer(s)?N Previous Radiation?N Lupus/Scleroderma?N On body monitoring device?N Barbie Causey RN documented in this encounter [facility] 10-18-2024 Note HNO ID: [id number] Author: Sherrie MONSON MD Service: ? Author Type: Physician Type: Progress Notes Filed: 10/18/2024 10:11 Note Text: Radiation Oncology - New Patient/Consult Note PATIENT NAME: Bentley Gonzalez PATIENT REQUESTING PROVIDER: Raz Tucker MD OTHER PROVIDERS: Dr. Clemente, Dr. Donohue, Dr. Sánchez DIAGNOSIS: Rectal cancer,, adenocarcinoma, locally advanced HPI: 64 year old male who presents with above diagnosis, for an opinion regarding the role of radiation therapy in the management of the patient's disease. Final recommendations will be communicated back to the requesting physician by way of the shared medical record, or letter to requesting physician via [place] mail. Patient presented with rectal bleeding and change in bowel habits since approximately May. He underwent recent evaluation including colonoscopy with the finding of a rectal mass follow-up on digital rectal exam endoscopy. Colonoscopy 09/24/2024: Firm circumferential rectal mass within the distal rectum, endoscopy demonstrating circumferential mass, pediatric colonoscope could not advance beyond the mass, biopsies taken. Pathology demonstrating: Moderate differentiated adenocarcinoma. Patient complains of change in bowel habits, constipation, only able to pass small stools multiple times per day. This has improved after starting MiraLAX. Rectal bleeding intermittently but nothing recently. Denies any pelvic pain. No bladder related issues. He has been seen by Dr. Tucker, and colorectal surgery. He is scheduled for further staging including CT evaluation 10/27/2023 and MRI rectal evaluation 10/29/2023. He is here today to discuss potential of radiation in the management of his newly diagnosed locally advanced rectal cancer. He denies any further bleeding of the past couple weeks. Is doing better on MiraLAX in terms of having bowel movements. Occasional cramping. No other pain. He admits about 10 pounds of weight loss. ALLERGIES No Known Allergies Current Outpatient Medications on File Prior to Visit Medication Sig iv contrast (will be provided with radiology test) MRI Rectum Inject, intravenously, once for 1 dose. No IV access, insert saline lock prior to the beginning of sedation, infusion, injection of imaging exam. Discontinue saline lock post exam. If Pt has a central line or IVAD, may access for administration according to line specific nursing protocol. Once exam is complete flush line and de-access according to line specific nursing protocol in the MR contrast administration guidelines link. enteric contrast (will be provided with radiology test) MRI RECTUM WO/W. Administer, As Directed One Time Only, via Oral, Rectal, both Oral and Rectal, Enteric Tube, Stoma or Indwelling Catheter, Enteric Contrast as designated per enteric contrast guidelines iv contrast (will be provided with radiology test) CT Chest ABD/PEL-Inject, intravenously, once for 1 dose.No IV access, insert saline lock prior to the beginning of sedation, infusion, injection of imaging exam. Discontinue saline lock post exam. If Pt. has a central line or IVAD, may access for administration according to line specific nursing protocol. Once exam is complete flush line and de-access according to line specific nursing protocol in the CT contrast administration guidelines link. enteric contrast (will be provided with radiology test) For CT CHESTABD/PEL W IVCON Routine order Administer, As Directed One Time Only, via Oral, Rectal, both Oral and Rectal, Enteric Tube, Stoma or Indwelling Catheter, Enteric Contrast as designated per enteric contrast guidelines No current facility-administered medications on file prior to visit. History reviewed. No pertinent past medical history. Prior radiation therapy, collagen vascular disease, or inflammatory bowel disease: No Any implanted or external electric devices? 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 Is the patient having any pain? Occas (more content not included)... [facility] 10-18-2024 Note HNO ID: [id number] Author: BARBIE CAUSEY RN Service: ? Author Type: Registered Nurse Type: Progress Notes Filed: 10/18/2024 10:11 Note Text: Pacemaker/Defibrillator?N Previous Cancer(s)?N Previous Radiation?N Lupus/Scleroderma?N On body monitoring device?N Barbie Causey RN [facility] 10-18-2024 Note Education (SIS) BLOSSOMBENTLEY ANTONY ([id number]) 1960 M Date Time Provider Department 10/18/24 BARBIE CAUSEY Reason for Visit: Patient Education [91] During your visit today, we recorded the following information about you: Allergies As of Date: 10/18/2024 (No Known Allergies) Date Reviewed: 10/18/2024 Reviewed by: Barbie Causey RN - Fully Assessed Prescriptions as of 10/18/2024 - iv contrast (will be provided with radiology test) MRI Rectum Inject, intravenously, once for 1 dose. No IV access, insert saline lock prior to the beginning of sedation, infusion, injection of imaging exam. Discontinue saline lock post exam. If Pt has a central line or IVAD, may access for administration according to line specific nursing protocol. Once exam is complete flush line and de-access according to line specific nursing protocol in the MR contrast administration guidelines link. - enteric contrast (will be provided with radiology test) MRI RECTUM WO/W. Administer, As Directed One Time Only, via Oral, Rectal, both Oral and Rectal, Enteric Tube, Stoma or Indwelling Catheter,? Enteric Contrast as designated per enteric contrast guidelines - iv contrast (will be provided with radiology test) CT Chest ABD/PEL-Inject, intravenously, once for 1 dose.No IV access, insert saline lock prior to the beginning of sedation, infusion, injection of imaging exam. Discontinue saline lock post exam. If Pt. has a central line or IVAD, may access for administration according to line specific nursing protocol. Once exam is complete flush line and de-access according to line specific nursing protocol in the CT contrast administration guidelines link. - enteric contrast (will be provided with radiology test) For CT CHESTABD/PEL W IVCON Routine order Administer, As Directed One Time Only, via Oral, Rectal, both Oral and Rectal, Enteric Tube, Stoma or Indwelling Catheter, Enteric Contrast as designated per enteric contrast guidelines Encounter Status:Closed by BARBIE CAUSEY on 10/18/[address] [facility] 10-14-2024 Telephone encounter Note Updated pt on the result of path showing adenocarcinoma. Imaging still pending. Will proceed with med/onc and rad/onc referral [facility] 10-14-2024 Miscellaneous Notes Updated pt on the result of path showing adenocarcinoma. Imaging still pending. Will proceed with med/onc and rad/onc referral documented in this encounter [facility] 10-14-2024 Telephone encounter Note Call placed to [facility] Dr Clemente office re: obtaining copy of pathology from 09/27 colonoscopy/rectal mass. [phone] They state that they have not received it yet. They have called twice to pathology office and still not completed. Dr Clemente' office has fax number to send sami once completed. Office staff alerted to inform Dr Tucker once scanned in. [facility] 10-14-2024 Miscellaneous Notes Call placed to [facility] Dr Clemente office re: obtaining copy of pathology from 09/27 colonoscopy/rectal mass. [phone] They state that they have not received it yet. They have called twice to pathology office and still not completed. Dr Clemente' office has fax number to send sami once completed. Office staff alerted to inform Dr Tucker once scanned in. documented in this encounter [facility] 10-07-2024 History of Present illness Narrative [facility] October 07, 2024 Bentley Gonzalez 64 year old This consult was requested by Dr. Clemente and my final recommendations will be communicated to the requesting health care provider by way of the shared medical record for internal providers or letter via the [employer] for external providers. Chief Complaint: rectal cancer, rectal obstruction History of Present Illness: Bentley Gonzalez is a 64 year old man who presents today for evaluation of rectal cancer with obstruction. He reports months of hematochezia as well as change in bowel habits prompting him to present for endoscopic evaluation. On colonoscopy, he was found to have a rectal mass on LUIS ANTONIO and on endoscopic evaluation, pediatric scope could not be advanced past the mass. Biopsy was taken and result pending. He presents for further evaluation and management. Patient reports that his difficulty defecating included small pellet-like stools, ~10 times a day, which has improved since he started taking MiraLAX daily. He now has large volume stool but still go multiple times a day. His hematochezia is also resolved. He denies abdominal pain nausea vomiting rectal pain. He denies fecal incontinence. Weight is stable. Denies family history of colorectal cancer. He is an active smoker of 1 pack/day for past for 54 years. Has tried to quit once in the past for 2 years before resuming again. Abdominal/anorectal surgery: Denies No past medical history on file. No past surgical history on file. Current Outpatient Medications Medication Sig Dispense Refill iv contrast (will be provided with radiology test) MRI Rectum Inject, intravenously, once for 1 dose. No IV access, insert saline lock prior to the beginning of sedation, infusion, injection of imaging exam. Discontinue saline lock post exam. If Pt has a central line or IVAD, may access for administration according to line specific nursing protocol. Once exam is complete flush line and de-access according to line specific nursing protocol in the MR contrast administration guidelines link. 1 Each 0 enteric contrast (will be provided with radiology test) MRI RECTUM WO/W. Administer, As Directed One Time Only, via Oral, Rectal, both Oral and Rectal, Enteric Tube, Stoma or Indwelling Catheter, Enteric Contrast as designated per enteric contrast guidelines 1 Each 0 iv contrast (will be provided with radiology test) CT Chest ABD/PEL-Inject, intravenously, once for 1 dose.No IV access, insert saline lock prior to the beginning of sedation, infusion, injection of imaging exam. Discontinue saline lock post exam. If Pt. has a central line or IVAD, may access for administration according to line specific nursing protocol. Once exam is complete flush line and de-access according to line specific nursing protocol in the CT contrast administration guidelines link. 1 Each 0 enteric contrast (will be provided with radiology test) For CT CHESTABD/PEL W IVCON Routine order Administer, As Directed One Time Only, via Oral, Rectal, both Oral and Rectal, Enteric Tube, Stoma or Indwelling Catheter, Enteric Contrast as designated per enteric contrast guidelines 1 Each 0 No current facility-administered medications for this visit. ALLERGIES No Known Allergies No family history on file. Social History Tobacco Use Smoking status: Every Day Types: Cigarettes Smokeless tobacco: Never Physical Exam: BP 127/79 (BP Site: Left Arm, BP Position: Sitting, BP Cuff Size: Regular Adult) Pulse 87 Temp 36.4 C (97.5 F) SpO2 99% General Appearance: Well appearing, alert, in no acute distress, well-hydrated, well nourished. Abdomen: soft, non distended, non tender Groin: no inguinal lymphadenopathy bilaterally Anorectal: External exam reveals no mass, fistula or fissure. Digital rectal exam reveals firm mass palpated anteriorly, with inferior edge ~1cm from anorectal ring. Exam limited due to discomfort Deputy Clerk Of Court present: Yes The sensitive examination was discussed with the Patient or Patient's Authorized Marble Finisher. As applicable, any other physician, advance practice provider, medical student, or other health professional student that will be observing or involved in the sensitive examination for educational or training purposes was discussed with the Patient or Authorized Marble Finisher. The Patient or Authorized Marble Finisher has agreed to proceed with the sensitive examination. (Sensitive examination includes inspection and/or palpation of the breasts, pelvis, prostate and anorectal regions) Colonoscopy 09/24/24 - Dr. Clemente Scan on 10/04/2024 11:25 AM by Provider, External, PA-C: Miscellaneous Procedures - Digital rectal exam revealed firm, circumferential rectal mass, likely carcinoma. Pediatric scope could not be advanced past the mass. - Multiple biopsies taken Assessment Assessment and Plan: Bentley Gonzalez is a 64 year old man with an obstructing distal rectal mass, likely rectal cancer. Biopsy results pending. I had a discussion with patient and his regarding implication of new diagnosis of rectal cancer and management approach. We reviewed next step of staging CT as well as MRI rectum. We briefly discussed the difference in treatment approach between early versus locally advanced versus advanced rectal cancer. Given that the mass was not able to be traversed and he is having clinical symptoms indicating impeding obstruction, he will most likely require a diverting colostomy prior to treatment start. Symptoms currently managed with MiraLAX and would defer until further evaluation with his imaging. F/u outside pathology CT CAP MRI rectum [facility] Tumor board Will plan for virtual visit after the above is completed to discuss next up with patient, which would likely involve diverting colostomy followed by neoadjuvant treatment. Will need completion c/scope Medical Decision Making: Data Reviewed: Tests & Documents Reviewed/ordered: Review of prior notes from Dr. Clemente Review of Procedures / Tests: Colonoscopy I have independently interpreted: n/a I have discussed Bentley Gonzalez's treatment plan and/or results with patient. Risk of morbidity, mortality and/or complications of treatment plan: felton Tucker MD Colorectal Surgery documented in this encounter [facility] 10-07-2024 Note HNO ID: [id number] Author: RAZ TUCKER MD Service: ? Author Type: Physician Type: Progress Notes Filed: 10/07/2024 09:58 Note Text: [facility] NOTE October 07, 2024 Bentley Gonzalez 64 year old This consult was requested by Dr. Clemente and my final recommendations will be communicated to the requesting health care provider by way of the shared medical record for internal providers or letter via the [employer] for external providers. Chief Complaint: rectal cancer, rectal obstruction History of Present Illness: Bentley Gonzalez is a 64 year old man who presents today for evaluation of rectal cancer with obstruction. He reports months of hematochezia as well as change in bowel habits prompting him to present for endoscopic evaluation. On colonoscopy, he was found to have a rectal mass on LUIS ANTONIO and on endoscopic evaluation, pediatric scope could not be advanced past the mass. Biopsy was taken and result pending. He presents for further evaluation and management. Patient reports that his difficulty defecating included small pellet-like stools, ~10 times a day, which has improved since he started taking MiraLAX daily. He now has large volume stool but still go multiple times a day. His hematochezia is also resolved. He denies abdominal pain nausea vomiting rectal pain. He denies fecal incontinence. Weight is stable. Denies family history of colorectal cancer. He is an active smoker of 1 pack/day for past for 54 years. Has tried to quit once in the past for 2 years before resuming again. Abdominal/anorectal surgery: Denies No past medical history on file. No past surgical history on file. Current Outpatient Medications Medication Sig Dispense Refill iv contrast (will be provided with radiology test) MRI Rectum Inject, intravenously, once for 1 dose. No IV access, insert saline lock prior to the beginning of sedation, infusion, injection of imaging exam. Discontinue saline lock post exam. If Pt has a central line or IVAD, may access for administration according to line specific nursing protocol. Once exam is complete flush line and de-access according to line specific nursing protocol in the MR contrast administration guidelines link. 1 Each 0 enteric contrast (will be provided with radiology test) MRI RECTUM WO/W. Administer, As Directed One Time Only, via Oral, Rectal, both Oral and Rectal, Enteric Tube, Stoma or Indwelling Catheter, Enteric Contrast as designated per enteric contrast guidelines 1 Each 0 iv contrast (will be provided with radiology test) CT Chest ABD/PEL-Inject, intravenously, once for 1 dose.No IV access, insert saline lock prior to the beginning of sedation, infusion, injection of imaging exam. Discontinue saline lock post exam. If Pt. has a central line or IVAD, may access for administration according to line specific nursing protocol. Once exam is complete flush line and de-access according to line specific nursing protocol in the CT contrast administration guidelines link. 1 Each 0 enteric contrast (will be provided with radiology test) For CT CHESTABD/PEL W IVCON Routine order Administer, As Directed One Time Only, via Oral, Rectal, both Oral and Rectal, Enteric Tube, Stoma or Indwelling Catheter, Enteric Contrast as designated per enteric contrast guidelines 1 Each 0 No current facility-administered medications for this visit. ALLERGIES No Known Allergies No family history on file. Social History Tobacco Use Smoking status: Every Day Types: Cigarettes Smokeless tobacco: Never Physical Exam: BP 127/79 (BP Site: Left Arm, BP Position: Sitting, BP Cuff Size: Regular Adult) Pulse 87 Temp 36.4 ?C (97.5 ?F) SpO2 99% General Appearance: Well appearing, alert, in no acute distress, well-hydrated, well nourished. Abdomen: soft, non distended, non tender Groin: no inguinal lymphadenopathy bilaterally Anorectal: External exam reveals no mass, fistula or fissure. Digital rectal exam reveals firm mass palpated anteriorly, with inferior edge ~1cm from anorectal ring. Exam limited due to discomfort Deputy Clerk Of Court present: Yes The sensitive examination was discussed with the Patient or Patient's Authorized Marble Finisher. As applicable, any other physician, advance practice provider, medical student, or other health professional student that will be observing or involved in the sensitive examination for educational or training purposes was discussed with the Patient or Authorized Marble Finisher. The Patient or Authorized Marble Finisher has agreed to proceed with the sensitive examination. (Sensitive examination includes inspection and/or palpation of the breasts, pelvis, prostate and anorectal regions) Colonoscopy 09/24/24 - Dr. Clemente Scan on 10/04/2024 11:25 AM by Provider, External, PA-C: Miscellaneous Procedures - Digital rectal exam revealed firm, circumferential rectal mass, likely carcin (more content not included)... [facility] 10-01-2024 History of Present illness Narrative Images from the original note were not included. Patient is status post attempted colonoscopy. He is found to have a near obstructing rectal mass. Pathology is still pending. The mass appears to be a rectal cancer. Examination, patient is awake and alert.In no acute distress. 1. Obstruction of rectum 2. Rectal cancer (CMS/HCC) 3. Malignant neoplasm of colon, unspecified part of colon (CMS/HCC) Patient will be referred to [facility] as well as [facility] colorectal surgery. documented in this encounter [facility] 09-14-2024 History of Present illness Narrative Associated Problem(s): Unspecified protein-calorie malnutrition (CMS/HCC) Supplement shake encouraged Associated Problem(s): Smoker Discussed smoking cessation with the patient. Encouraged patient to try to cut back gradually and soon quit smoking. Discussed ways to quit smoking including gum, patches, medication, and gradually reducing the number of cigarettes smoked daily. 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 Patient voiced understanding. Benefits of cessation, both health and financial, were reviewed. Associated Problem(s): Type 2 diabetes mellitus with diabetic neuropathy (CMS/HCC) No Tobacco use Follow ADA 1800 diet low carbohydrate Continue Med Compliance Goal LDL less than 100 Goal BP 130/80 Goal HgbA1c < 7.0% Monitor Feet, monitor for infection Needs Exercise Yearly eye exams Prior to your visit today we reviewed your chart and outlined testing and treatment needed for your care. Reviewed poissble complications of diabetes including, loss of vision, kidney failure and increased risk of heart attacks and stroke. We made recommendations on how to control your blood sugars, and minimize your risk of these complications. We discussed your current barriers to a healthy living and importance of healthy diet and exercise. Associated Problem(s): Medicare annual wellness visit, initial Colonoscopy every 10 years or Cologuard every 3 years ages 50-75 Flu Vaccine yearly Pneumovax and Prevnar Mammo yearly for women and PSA yearly for men Labs/Screening yearly to rule out Diabetes, Chronic Kidney disease and liver disease Hepatitis Screen forat risk populations Shingles vaccine after 65 if indicated Tetanus Vaccine every 10 years Lipids yearly under the age of 75 If Smoking history: one time CT scan of chest and Ultrasound of Aorta to screen for Anuerysm Images from the original note were not included. Subjective : Chief Complaint: Bentley Gonzalez is an 64 y.o. male here for an annual wellness visit. Dr. Clemente has colonoscopy next week 09/24/2024 I have reviewed and reconciled the history and medication list with the patient today. No current outpatient medications on file. No current facility-administered medications for this visit. Review of Systems Constitutional: Negative for chills, fatigue, fever and unexpected weight change. Respiratory: Negative for cough. Cardiovascular: Negative for chest pain. Gastrointestinal: Positive for constipation. Negative for abdominal pain, blood in stool, diarrhea, nausea and vomiting. Genitourinary: Negative for dysuria, enuresis, frequency and hematuria. Musculoskeletal: Positive for back pain. Negative for joint swelling. Neurological: Negative for dizziness, tremors, syncope, facial asymmetry and speech difficulty. Psychiatric/Behavioral: Negative for agitation, behavioral problems, confusion and dysphoric mood. The patient is not nervous/anxious. List of current healthcare providers: Patient Care Team: Rashaun Donohue MD as PCP - General (Family Medicine) Rashaun Donohue MD as PCP - Amada BLACK Medicare Annual Visit Over the past 2 weeks, how often have you been bothered by any of the following problems? Little interest or pleasure in doing things: Not at all Feeling down, depressed, or hopeless: Not at all Patient Health Questionnaire-2 Score: 0 Earl Fall Risk History of Falling, Immediate or Within 3 Months: No Health Risk Assessment Form Do you need help eating, bathing, using the toilet, dressing, or getting around your home?: No Can you prepare your own meals?: Yes Can you do your own housework without help?: Yes Can you shop for groceries or clothes without help?: Yes Do you exercise for about 20 minutes 3 or more days a week?: Yes How confident are you that you can control and manage most of your health problems?: Very confident Can you mange your money, credit cards and accounts, pay bills and taxes?: Yes Vision Screening: Yes, no gross abnormalities Hearing Screening: Yes, no gross abnormalities Cognitive Screening Self Assessment: No overt cognitive deficiency is apparent by direct observation Three Word Registration: Banana, [place], Chair Clock Drawing: Normal Clock - 2 Three Word Recall: All 3 words correct - 3 Total Score (0-5 Points): 5 Pain Assessment Pain Score: 0 - No pain Advance Care Planning Do you have a living will?: No Do you have a medical power of rn emergency?: No Objective : BP 122/74 Pulse 107 Ht 5' 8 Wt 120 lb SpO2 97% BMI 18.25 kg/m No results found. Physical Exam Vitals reviewed. Constitutional: Appearance: Normal appearance. HENT: Head: Normocephalic. Neck: Vascular: No carotid bruit. Cardiovascular: Rate and Rhythm: Normal rate and regular rhythm. Pulses: Normal pulses. Pulmonary: Effort: Pulmonary effort is normal. Breath sounds: Normal breath sounds. Neurological: General: No focal deficit present. Mental Status: He is alert and oriented to person, place, and time. Psychiatric: Mood and Affect: Mood normal. Assessment/Plan : The following health maintenance schedule was reviewed with the patient and provided in printed form in the after visit summary: Health Maintenance Topic Date Due Diabetes: Retinopathy Screening Never done Medicare Annual Wellness (AWV) 09/01/2024 Diabetes: Urine Protein Screening 09/05/2024 Influenza Vaccine (1) 11/02/2024 (Originally 06/06/2024) Pneumococcal Vaccine: 65+ Years (1 of 2 - PCV) 09/07/2025 (Originally 1966) Diabetes: Hemoglobin A1C 11/02/2024 Colorectal Cancer Screening 09/07/2034 Advance Care Planning .Patient willing to discuss ACP. If in place, renew periodically. If not in place, recommend obtaining ACP. Assessment/Plan Problem List Items Addressed This Visit Type 2 diabetes mellitus with diabetic neuropathy (CMS/HCC) Relevant Orders CBC and differential Comprehensive metabolic panel Microalbumin / creatinine urine ratio Benign essential hypertension (CMS/HCC) Relevant Orders Comprehensive metabolic panel Medicare annual wellness visit, initial Relevant Orders CBC and differential Comprehensive metabolic panel Lipid panel PSA Microalbumin / creatinine urine ratio Myalgia Relevant Orders CBC and differential Comprehensive metabolic panel Other Visit Diagnoses Routine general medical examination at health care facility - Primary Abnormal glucose tolerance test Relevant Orders Comprehensive metabolic panel Nocturia Relevant Orders PSA Screening for lipid disorders Relevant Orders CBC and differential Lipid panel Orders Placed This Encounter Procedures CBC and differential Standing Status: Future Number of Occurrences: 1 Standing Expiration Date: 09/14/2025 Order Specific Question: Print requisition? Answer: No Comprehensive metabolic panel Standing Status: Future Number of Occurrences: 1 Standing Expiration Date: 09/14/2025 Order Specific Question: Print requisition? Answer: No Lipid panel Standing Status: Future Number of Occurrences: 1 Standing Expiration Date: 09/14/2025 PSA Standing Status: Future Number of Occurrences: 1 Standing Expiration Date: 09/14/2025 Order Specific Question: Print requisition? Answer: No Microalbumin / creatinine urine ratio Standing Status: Future Number of Occurrences: 1 Standing Expiration Date: 09/14/2025 Order Specific Question: Print requisition? Answer: No Electronically signed by Rashaun Donohue MD on September 14, 2024 documented in this encounter [facility] 09-07-2024 History of Present illness Narrative Images from the original note were not included. Bentley Gonzalez 1960 Bentley Gonzalez is a 64 y.o. male presents with chief complaint of Consult (Past couple months. Change in bowels, Blood in stool, constipation - Ref Rashaun Donohue--No colonoscopy, poss. Had BE several yrs ago at [facility].) HPI: The patient is a 64-year-old male who presents with changes in bowel habits. He states about 4 months ago, he started having difficulty having bowel movements. He would feel the urge to have bowel movements several times a day but would not have a bowel movement. We does have a bowel movement, the stools are smaller in caliber and about 4 times there so he has noticed some blood in the stool. He denies abdominal pain. Denies vomiting. He has been eating well. Weight has been stable. He denies family history for colon cancer. Has never had a colonoscopy. SUBJECTIVE: MEDICATIONS: ALLERGIES No current outpatient medications No Known Allergies PAST MEDICAL HISTORY: SOCIAL HISTORY SURGICAL HISTORY: Past Medical History: Diagnosis Date Diabetes mellitus ([facility]) Type 2 diabetes mellitus with diabetic neuropathy ([facility]) 08/04/2023 Social History Tobacco Use Smoking status: Every Day Current packs/day: 1.00 Types: Cigarettes Smokeless tobacco: Never Substance Use Topics Alcohol use: Yes Comment: 1 or 2 every couple month Past Surgical History: Procedure Laterality Date TONSILLECTOMY REVIEW OF SYMPTOMS: Review of Systems Constitutional: Negative for fever. Respiratory: Negative for shortness of breath. Cardiovascular: Negative for chest pain. Gastrointestinal: Positive for blood in stool and constipation. Negative for abdominal pain. Genitourinary: Negative for difficulty urinating. Neurological: Negative for syncope. OBJECTIVE: Visit Vitals BP 118/74 Ht 5' 8 Wt 120 lb 6.4 oz BMI 18.31 kg/m Smoking Status Every Day BSA 1.62 m Physical Exam Constitutional: General: He is not in acute distress. HENT: Head: Atraumatic. Eyes: General: No scleral icterus. Cardiovascular: Rate and Rhythm: Normal rate and regular rhythm. Pulmonary: Breath sounds: Normal breath sounds. Abdominal: General: There is no distension. Palpations: Abdomen is soft. Tenderness: There is no abdominal tenderness. Skin: General: Skin is warm and dry. Neurological: General: No focal deficit present. Mental Status: He is alert. ASSESSMENT AND PLAN: Assessment/Plan Diagnoses and all orders for this visit: Change in bowel habits Blood in stool - Ambulatory referral to General Surgery Slow transit constipation - Ambulatory referral to General Surgery Plan will be to perform a colonoscopy. The procedure, benefits, risks including risks of bleeding, perforation, incomplete colonoscopy were discussed. If the colonoscopy is normal, next colonoscopy in 10 years. documented in this encounter [facility] 08-02-2024 History of Present illness Narrative Associated Problem(s): Slow transit constipation Add Senokot S every Day Increase water 48 oz Associated Problem(s): Type 2 diabetes mellitus with diabetic neuropathy (CMS/HCC) No Tobacco use Follow ADA 1800 diet low carbohydrate Continue Med Compliance Goal LDL less than 100 Goal BP 130/80 Goal HgbA1c < 7.0% Monitor Feet, monitor for infection Needs Exercise Yearly eye exams Prior to your visit today we reviewed your chart and outlined testing and treatment needed for your care. Reviewed poissble complications of diabetes including, loss of vision, kidney failure and increased risk of heart attacks and stroke. We made recommendations on how to control your blood sugars, and minimize your risk of these complications. We discussed your current barriers to a healthy living and importance of healthy diet and exercise. Associated Problem(s): Benign essential hypertension (CMS/HCC) Our specific goals, for your hypertension, is to keep your blood pressure less than 140/90, and the importance of weight control. We made recommendations on how to control your blood pressure, and minimize your risk of these copmplications. We also discussed your current barriers to a healthy living and importance of healthy diet and exercise. Prior to your visit today we have reviewed your chart and formed a plan to assist with providing you the best possible care. We reviewed the possible complications of hypertension including, stroke, heart failure and kidney impairment. In addition, we discussed your medications, the importance of taking them as prescribed. DASH diet handouts Images from the original note were not included. HPI Diabetes Additional comments: Last A1c was 5.2 Prostate Check Additional comments: Pt states he is having issues Last edited by Mallika Robledo MA on 08/02/2024 7:58 AM. Subjective Patient ID: Bentley Gonzalez is a 64 y.o. male who presents for Diabetes (Last A1c was 5.2) and Prostate Check (Pt states he is having issues). Pt is having trouble going to the bathroom , not able to get anything out and has to go all the time plus there is some blood started about a month ago Pt drinks lots of coffee not enough water Diabetes He presents for his follow-up diabetic visit. He has type 2 diabetes mellitus. His disease course has been stable. Pertinent negatives for hypoglycemia include no dizziness. There are no diabetic associated symptoms. Pertinent negatives for diabetes include no chest pain. Symptoms are stable. No current outpatient medications on file prior to visit. No current facility-administered medications on file prior to visit. I have reviewed and reconciled the history and medication list with the patient today. No Known Allergies Social History Tobacco Use Smoking status: Every Day Current packs/day: 1.00 Types: Cigarettes Smokeless tobacco: Never Substance Use Topics Alcohol use: Yes Comment: 1 or 2 every couple month Family History Problem Relation Name Age of Onset Cancer Mother Lung cancer Father Past Medical History: Diagnosis Date Diabetes mellitus (CMS/HCC) Type 2 diabetes mellitus with diabetic neuropathy (CMS/HCC) 08/04/2023 Past Surgical History: Procedure Laterality Date TONSILLECTOMY Visit Vitals BP 128/82 Pulse 102 Ht 5' 8 Wt 120 lb SpO2 96% BMI 18.25 kg/m Smoking Status Every Day BSA 1.62 m Review of Systems Constitutional: Negative for chills and fever. Respiratory: Negative for shortness of breath. Cardiovascular: Negative for chest pain. Gastrointestinal: Positive for blood in stool and constipation. Negative for diarrhea, nausea and vomiting. Genitourinary: Negative for dysuria and frequency. Musculoskeletal: Negative for back pain and gait problem. Neurological: Negative. Negative for dizziness and facial asymmetry. Objective Physical Exam Vitals reviewed. Constitutional: Appearance: Normal appearance. HENT: Head: Normocephalic. Cardiovascular: Rate and Rhythm: Normal rate and regular rhythm. Pulses: Normal pulses. Pulmonary: Effort: Pulmonary effort is normal. Breath sounds: Normal breath sounds. Abdominal: General: Abdomen is flat. There is no distension. Palpations: Abdomen is soft. There is no mass. Neurological: General: No focal deficit present. Mental Status: He is alert and oriented to person, place, and time. Psychiatric: Mood and Affect: Mood normal. Office Visit on 08/02/2024 Component Date Value Ref Range Status Hemoglobin A1C 08/02/2024 5.3 Final Assessment/Plan Problem List Items Addressed This Visit Type 2 diabetes mellitus with diabetic neuropathy (CMS/HCC) - Primary No Tobacco use Follow ADA 1800 diet low carbohydrate Continue Med Compliance Goal LDL less than 100 Goal BP 130/80 Goal HgbA1c < 7.0% Monitor Feet, monitor for infection Needs Exercise Yearly eye exams Prior to your visit today we reviewed your chart and outlined testing and treatment needed for your care. Reviewed poissble complications of diabetes including, loss of vision, kidney failure and increased risk of heart attacks and stroke. We made recommendations on how to control your blood sugars, and minimize your risk of these complications. We discussed your current barriers to a healthy living and importance of healthy diet and exercise. Relevant Orders POCT Glycated hemoglobin, total (Completed) Benign essential hypertension (CMS/HCC) Our specific goals, for your hypertension, is to keep your blood pressure less than 140/90, and the importance of weight control. We made recommendations on how to control your blood pressure, and minimize your risk of these copmplications. We also discussed your current barriers to a healthy living and importance of healthy diet and exercise. Prior to your visit today we have reviewed your chart and formed a plan to assist with providing you the best possible care. We reviewed the possible complications of hypertension including, stroke, heart failure and kidney impairment. In addition, we discussed your medications, the importance of taking them as prescribed. DASH diet handouts Slow transit constipation Add Senokot S every Day Increase water 48 oz Relevant Medications polyethylene glycol, PEG, 3350 (MiraLax) 17 GM/SCOOP powder Other Relevant Orders Ambulatory referral to General Surgery Blood in stool Relevant Orders Ambulatory referral to General Surgery No follow-ups on file. documented in this encounter [facility] Healthcare Evaluation note Diagnosis Type 2 diabetes mellitus with diabetic neuropathy, without long-term current use of insulin ([facility]/HCC)- Primary Elevated blood sugar Other abnormal glucose Smoker Tobacco use disorder Routine general medical examination at health care facility- Primary Routine general medical examination at a health care facility Benign essential hypertension (CMS/HCC) Essential hypertension, benign Abnormal glucose tolerance test Impaired glucose tolerance test Nocturia Screening for malignant neoplasm of colon Medicare annual wellness visit, initial Screening for lipid disorders Type 2 diabetes mellitus with diabetic neuropathy, without long-term current use of insulin ([facility]) Encounter for screening for lung cancer Encounter for abdominal aortic aneurysm (AAA) screening Type 2 diabetes mellitus with diabetic neuropathy, without long-term current use of insulin (CMS/HCC)- Primary Benign essential hypertension (CMS/HCC) Essential hypertension, benign Slow transit constipation Blood in stool documented in this encounter [facility] HealthcareEvaluation note* Diagnosis Type 2 diabetes mellitus with diabetic neuropathy, without long-term current use of insulin (CMS/HCC)- Primary Elevated blood sugar Other abnormal glucose Smoker Tobacco use disorder Routine general medical examination at health care facility- Primary Routine general medical examination at a health care facility Benign essential hypertension (CMS/HCC) Essential hypertension, benign Abnormal glucose tolerance test Impaired glucose tolerance test Nocturia Screening for malignant neoplasm of colon Medicare annual wellness visit, initial Screening for lipid disorders Type 2 diabetes mellitus with diabetic neuropathy, without long-term current use of insulin ([facility]/HCC) Encounter for screening for lung cancer Encounter for abdominal aortic aneurysm (AAA) screening Type 2 diabetes mellitus with diabetic neuropathy, without long-term current use of insulin (CMS/HCC)- Primary Benign essential hypertension (CMS/HCC) Essential hypertension, benign Slow transit constipation Blood in stool Change in bowel habits- Primary Other symptoms involving digestive system Blood in stool Slow transit constipation documented in this encounter [facility] HealthcareEvaluation note* Diagnosis Type 2 diabetes mellitus with diabetic neuropathy, without long-term current use of insulin ([facility])- Primary Elevated blood sugar Other abnormal glucose Smoker Tobacco use disorder Routine general medical examination at health care facility- Primary Routine general medical examination at a health care facility Benign essential hypertension (CMS/HCC) Essential hypertension, benign Abnormal glucose tolerance test Impaired glucose tolerance test Nocturia Screening for malignant neoplasm of colon Medicare annual wellness visit, initial Screening for lipid disorders Type 2 diabetes mellitus with diabetic neuropathy, without long-term current use of insulin ([facility]) Encounter for screening for lung cancer Encounter for abdominal aortic aneurysm (AAA) screening Type 2 diabetes mellitus with diabetic neuropathy, without long-term current use of insulin ([facility])- Primary Benign essential hypertension (CMS/HCC) Essential hypertension, benign Slow transit constipation Blood in stool Routine general medical examination at [facility] care facility- Primary Routine general medical examination at a [facility] Abnormal glucose tolerance test Impaired glucose tolerance test Benign essential hypertension (CMS/HCC) Essential hypertension, benign Nocturia Type 2 diabetes mellitus with diabetic neuropathy, without long-term current use of insulin ([facility]) Medicare annual wellness visit, initial Screening for lipid disorders Myalgia Unspecified myalgia and myositis Smoker Tobacco use disorder Unspecified protein-calorie malnutrition ([facility]) Unspecified protein-calorie malnutrition Immunodeficiency due to conditions classified elsewhere ([facility]) Cigarette smoker Tobacco use disorder documented in this encounter [facility] HealthcareEvaluation note* Diagnosis Type 2 diabetes mellitus with diabetic neuropathy, without long-term current use of insulin ([facility])- Primary Elevated blood sugar Other abnormal glucose Smoker Tobacco use disorder Routine general medical examination at health care facility- Primary Routine general medical examination at a health care facility Benign essential hypertension (CMS/HCC) Essential hypertension, benign Abnormal glucose tolerance test Impaired glucose tolerance test Nocturia Screening for malignant neoplasm of colon Medicare annual wellness visit, initial Screening for lipid disorders Type 2 diabetes mellitus with diabetic neuropathy, without long-term current use of insulin ([facility]) Encounter for screening for lung cancer Encounter for abdominal aortic aneurysm (AAA) screening Type 2 diabetes mellitus with diabetic neuropathy, without long-term current use of insulin ([facility])- Primary Benign essential hypertension (CMS/HCC) Essential hypertension, benign Slow transit constipation Blood in stool Routine general medical examination at health care facility- Primary Routine general medical examination at a health care facility Abnormal glucose tolerance test Impaired glucose tolerance test Benign essential hypertension (CMS/HCC) Essential hypertension, benign Nocturia Type 2 diabetes mellitus with diabetic neuropathy, without long-term current use of insulin (CMS/HCC) Medicare annual wellness visit, initial Screening for lipid disorders Myalgia Unspecified myalgia and myositis Smoker Tobacco use disorder Unspecified protein-calorie malnutrition (CMS/HCC) Unspecified protein-calorie malnutrition Immunodeficiency due to conditions classified elsewhere (CMS/HCC) Cigarette smoker Tobacco use disorder Obstruction of rectum- Primary Rectal cancer (CMS/HCC) Malignant neoplasm of rectum Malignant neoplasm of colon, unspecified part of colon (CMS/HCC) [facility] Diagnosis Rectal mass- Primary Other symptoms involving digestive system [facility] Rectal cancer (HCC)- Primary Malignant neoplasm of rectum [facility] Diagnosis Rectal cancer (HCC)- Primary Malignant neoplasm of rectum [facility] Diagnosis Rectal cancer (HCC) Malignant neoplasm of rectum [facility] Diagnosis Rectal cancer (HCC)- Primary Malignant neoplasm of rectum [facility] Diagnosis Rectal cancer (HCC)- Primary Malignant neoplasm of rectum [facility] Diagnosis Rectal cancer (HCC)- Primary Malignant neoplasm of rectum [facility] Diagnosis Rectal cancer (HCC) Malignant neoplasm of rectum Rectal cancer (HCC)- Primary Malignant neoplasm of rectum [facility] Diagnosis Rectal mass Other symptoms involving digestive system Rectal cancer (HCC)- Primary Malignant neoplasm of rectum [facility] Diagnosis Rectal cancer (HCC)- Primary Malignant neoplasm of rectum Rectal cancer (HCC)- Primary Malignant neoplasm of rectum [facility] Diagnosis Rectal cancer (HCC)- Primary Malignant neoplasm of rectum [facility] Diagnosis Rectal cancer (HCC)- Primary Malignant neoplasm of rectum [facility] Diagnosis Rectal cancer (HCC)- Primary Malignant neoplasm of rectum [facility] Diagnosis Rectal cancer (HCC)- Primary Malignant neoplasm of rectum [facility] Diagnosis Rectal cancer (HCC)- Primary Malignant neoplasm of rectum documented in this encounter [facility] note* Diagnosis Rectal cancer (HCC)- Primary Malignant neoplasm of rectum documented in this encounter [facility] note* Diagnosis Rectal cancer (HCC)- Primary Malignant neoplasm of rectum documented in this encounter [facility] note* Diagnosis Rectal cancer (HCC)- Primary Malignant neoplasm of rectum documented in this encounter [facility] Family History No Family History Records FoundNo Family History Records FoundNo Family History Records FoundNo Family History Records FoundNo Family History Records FoundNo Family History Records FoundNo Family History Records Found Advance Directives No Advanced Directives Records FoundNo Advanced Directives Records FoundNo Advanced Directives Records FoundNo Advanced Directives Records FoundNo Advanced Directives Records FoundNo Advanced Directives Records FoundNo Advanced Directives Records Found Reason for Referral Specialty Diagnoses / Procedures Referred By Contac t Referred To Contact CT IMAGING Diagnoses Rectal mass Procedures CT CHEST W IVCON DIAGNOSTIC COMPUTED TOMOGRAPHY THORAX W/[place] [address] [address] [place] [id number] Imaging [facility] Referral ID Status Reason Start Date Expiration Date Visits Requested Visits Authorized [id number] Authorized Auto-Generat ed Referral 10/07/2024 11/06/2025 1 1 Specialty Diagnoses / Procedures Referred By Contac t Referred To Contact CT IMAGING Diagnoses Rectal mass Procedures CT ABD/PEL W IVCON CT ABD & PELVIS W/[place] [address] [place] [address] Ct Imaging [place] [address] Referral ID Status Reason Start Date Expiration Date Visits Requested Visits Authorized [id number] Authorized Auto-Generat ed Referral 10/07/2024 11/06/2025 1 1 Specialty Diagnoses / Procedures Referred By Contac t Referred To Contact MR IMAGING Diagnoses Rectal mass Procedures MRI RECTUM WO/W IVCON MRI PELVIS W/O & W/[place] [address] [place] [address] Mr Imaging [facility] Referral ID Status Reason Start Date Expiration Date Visits Requested Visits Authorized [id number] New Request Auto-Generat ed Referral 10/07/2024 11/06/2025 1 1 Specialty Diagnoses / Procedures Referred By Contac t Referred To Contact Radiation Oncology Diagnoses Rectal cancer (HCC) Procedures RAD/ONC CONSULT OFFICE/OUTPATIENT [facility] [place] [address] [place] [address] [place] [address] Referral ID Status Reason Start Date Expiration Date Visits Requested Visits Authorized [id number] Authorized PCP Requested Referral 10/14/2024 10/14/2025 1 1 Specialty Diagnoses / Procedures Referred By Contac t Referred To Contact Oncology Diagnoses Rectal cancer (HCC) Procedures CONSULT TO ONCOLOGY OFFICE/OUTPATIENT [facility] [address] [place] [address] [place] [address] Referral ID Status Reason Start Date Expiration Date Visits Requested Visits Authorized [id number] Authorized PCP Requested Referral 10/14/2024 10/14/2025 1 1 Specialty Diagnoses / Procedures Referred By Contac t Referred To Contact Diagnoses Rectal cancer (HCC) Procedures CT SIM PLANNING RADIATION ONCOLOGY THER RAD SIMULAJ-AIDED FIELD SETTING [facility] Sherrie Monson MD [address] [place] [address] [place] [address] Referral ID Status Reason Start Date Expiration Date Visits Requested Visits Authorized [id number] New Request PCP Requested Referral 10/26/2024 01/24/2025 1 1 Referral ID Status Reason Start Date Expiration Date V isits Requested Visits Authorized [id number] Closed Auto-Generate d Referral 10/07/2024 11/06/2025 1 1 Referral ID Status Reason Start Date Expiration Date V isits Requested Visits Authorized [id number] Closed Auto-Generate d Referral 10/07/2024 11/06/2025 1 1 Additional Source Comments (unrecognized sect ion and content) No Status Records FoundNo Status Records FoundNo Status Records FoundNo Status Records FoundNo Status Records FoundNo Status Records FoundNo Status Records Found INFORMATION SOURCE (unrecogn ized section and content) DATE CREATED AUTHOR 09/13/2021 [facility] DATE CREATED AUTHOR AUTHOR'S ORGANIZ ATION 09/28/2022 [facility] DATE CREATED AUTHOR AUTHOR'S ORGANIZ ATION 09/23/2024 [facility] DATE CREATED AUTHOR AUTHOR'S ORGANIZ ATION 10/02/2024 [facility] EPIC DATE CREATED AUTHOR AUTHOR'S ORGANIZ ATION 10/17/2024 [facility] DATE CREATED AUTHOR AUTHOR'S ORGANIZ ATION 10/30/2024 [facility] DATE CREATED AUTHOR AUTHOR'S ORGANIZ ATION 12/04/[address] [facility] Reason for Visit (unrecogniz ed section and content) Reason Comments Diabetes Last A1c was 5.2 Prostate Check Pt states he is havi ng issues Reason Comments Consult Past couple months. Change in bowels, Blood in stool, constipation - Ref Rashaun Donohue--No colonoscopy, poss. Had BE several yrs ago at [facility]. Specialty Diagnoses / Procedures Referred By Contac t Referred To Contact General Surgery Diagnoses Slow transit constipation Blood in stool Procedures CO OFFICE/OUTPATIENT NEW HIGH MDM 60 MINUTES Rashaun Donohue MD [address] [facility] [address] [place] [address] Phone: tel: fax: Prabhakar Clemente MD [address] [facility] [address] [place] [address] Phone: tel: fax: Referral ID Status Reason Start Date Expiration Date V isits Requested Visits Authorized [id number] Closed Specialty Services Required 08/02/2024 01/29/2025 1 1 Reason Comments Medicare Annual Wellness Visit Subsequen t Reason Comments 1st po colonoscopy Reason Comments Rectal Cancer obstruction Reason Comments Request Outside Medical Records patholog y Reason Comments Consult Specialty Diagnoses / Procedures Referred By Contac t Referred To Contact Oncology Diagnoses Rectal cancer (HCC) Procedures CONSULT TO ONCOLOGY OFFICE/OUTPATIENT NEW HIGH MDM [address] [place] [address] [place] [address] Referral ID Status Reason Start Date Expiration Date V isits Requested Visits Authorized [id number] Closed PCP Requested Referral 10/14/2024 10/14/2025 1 1 Reason Comments Patient Education Reason Comments Rectal Cancer Specialty Diagnoses / Procedures Referred By Contac t Referred To Contact Radiation Oncology Diagnoses Rectal cancer (HCC) Procedures RAD/ONC CONSULT OFFICE/OUTPATIENT [facility] [place] [address] [place] [address] [place] [address] Referral ID Status Reason Start Date Expiration Date V isits Requested Visits Authorized [id number] Closed PCP Requested Referral 10/14/2024 10/14/2025 1 1 Reason Comments Appointment Specialty Diagnoses / Procedures Referred By Contac t Referred To Contact RADIATION ONCOLOGY Diagnoses Malignant neoplasm of rectum Procedures INTENSITY MODULATED RADIATION TX DLVR COMPLEX Sherrie Monson MD [address] [place] [address] [facility] Aki Mc [address] [place] [address] Referral ID Status Reason Start Date Expiration Date V isits Requested Visits Authorized [id number] Authorized 10/26/2024 01/23/2025 29 29 Reason Onset Date Comments Simulation Request Form 10/26/2024 Reason Comments Nutrition Assessment Reason Comments Radiology CT Specialty Diagnoses / Procedures Referred By Contac t Referred To Contact CT IMAGING Diagnoses Rectal mass Procedures CT ABD/PEL W IVCON CT ABD & PELVIS W/[place] [address] [place] [address] [place] [address] Referral ID Status Reason Start Date Expiration Date V isits Requested Visits Authorized [id number] Closed Auto-Generate d Referral 10/07/2024 11/06/2025 1 1 Reason Comments Appointment Appointment reminder call--spoke with patient--gave directions to the office. Reason Comments First Time Treatment Education Reason Comments Rectal Cancer Follow up treatment Reason Comments Port Placement Reason Comments Care Coordination Treatment planning Reason Comments Care Coordination Radiation question Reason Comments Radiotherapy On-treatment Visit Reason Comments Care Coordination C1D1 treatment follo w up call Reason Comments Rectal Cancer Follow up Reason Comments Care Coordination Toxicity check Care Teams (unrecognized sec tion and content) Environmental Engineering Manager Relationship Specialty Start Date End Date Rashaun Donohue MD [address] [place] [address] PCP - General Family Medicine 08/05/23 aRshaun Donohue MD [address] [place] [address] PCP - Amada BLACK 09/05/23 Environmental Engineering Manager Relationship Specialty Start Date End Date Rashaun Donohue MD [address] [place] [address] PCP - General Family Medicine 08/05/23 Rashaun Donohue MD [address] [place] [address] PCP - Amada BLACK 09/05/23 Environmental Engineering Manager Relationship Specialty Start Date End Date Rashaun Donohue MD [address] [place] [address] PCP - General Family Medicine 08/05/23 Rashaun Donohue MD [address] [place] [address] PCP - Amada BLACK 09/05/23 Environmental Engineering Manager Relationship Specialty Start Date End Date Rashaun Donohue MD [address] [place] [address] PCP - General Family Medicine 08/05/23 Rashaun Donohue MD [address] [place] [address] PCP Sherman Ybarra MA 09/05/23 Environmental Engineering Manager Relationship Specialty Start Date End Date Rashaun Donohue MD [address] [place] [address] PCP - General Family Medicine 08/05/23 Rashaun Donohue MD [address] [place] [address] PCP - Amada BLACK 09/05/23 Environmental Engineering Manager Relationship Specialty Start Date End Date Rashaun Donohue MD [address] [place] [address] PCP - General Family Medicine 08/05/23 Rashaun Donohue MD [address] [place] [address] PCP - Amada BLACK 09/05/23 Environmental Engineering Manager Relationship Specialty Start Date End Date Rashaun Donohue MD [address] [place] [address] Family Medicine 08/26/24 [place] Clemente [address] [address] Referring General Surgery 10/01/24 Environmental Engineering Manager Relationship Specialty Start Date End Date Rashaun Donohue MD [address] [facility] [address] [place] [address] Family Medicine 08/26/24 [place] Clemente [address] [phone] Referring General Surgery 10/01/24 Environmental Engineering Manager Relationship Specialty Start Date End Date Rashaun Donohue MD [address] [facility] [address] [place] [address] Family Medicine 08/26/24 [place] Clemente [address] [facility] 150 [place] [address] Referring General Surgery 10/01/24 Environmental Engineering Manager Relationship Specialty Start Date End Date Rashaun Donohue MD [address] [facility] [address] [place] [address] Family Medicine 08/26/24 Pr[place] Clemente [address] [facility] [address] [place] [address] Referring General Surgery 10/01/24 Environmental Engineering Manager Relationship Specialty Start Date End Date Rashaun Donohue MD [address] [facility] [address] [place] [address] Family Medicine 08/26/24 [place] Clemente [address] [place] [address] [place] [address] Referring General Surgery 10/01/24 Environmental Engineering Manager Relationship Specialty Start Date End Date Rashaun Donohue MD [address] [facility] [address] [place] [address] Family Medicine 08/26/24 [place] Clemente [address] [place] [address] Referring General Surgery 10/01/24 Environmental Engineering Manager Relationship Specialty Start Date End Date Rashaun Donohue MD [address] [facility] [address] [place] [address] Family [facility] 08/26/24 [place] Clemente [address] [facility] [address] [place] [address] Referring General Surgery 10/01/24 Environmental Engineering Manager Relationship Specialty Start Date End Date Rashaun Donohue MD [address] [facility] [address] [place] [address] Family Medicine 08/26/24 [place] Clemente 7[address] [facility] [address] [place] [address] Referring General Surgery 10/01/24 Environmental Engineering Manager Relationship Specialty Start Date End Date Rashaun Donohue MD [address] [facility] [address] [place] [address] Family Medicine 08/26/24 [place] Clemente [address] [facility] [address] [place] [address] Referring General Surgery 10/01/24 Sandhya Kim LSW Health Science Specialist 10/26/24 Environmental Engineering Manager Relationship Specialty Start Date End Date Rashaun Donohue MD [address] [facility] [address] [place] [address] Family Medicine 08/26/24 [place] Clemente [address] [facility] [address] [place] [address] Referring General Surgery 10/01/24 Sandhya Kim LSW Health Science Specialist 10/26/24 Environmental Engineering Manager Relationship Specialty Start Date End Date Rashaun Donohue MD [address] [facility] [address] [place] [address] Family Medicine 08/26/24 [place] Clemente [address] [facility] [address] [place] [address] Referring General Surgery 10/01/24 Sandhya Kim, [employer]ILD[employer] GR[employer]DS SUPERINTENDENT Health Science Specialist 10/26/24 Environmental Engineering Manager Relationship Specialty Start Date End Date Rashaun Donohue MD [address] [facility] [address] [place] [address] PCP - General Family Medicine 10/27/24 Rashaun Donohue MD [address] [facility] [address] [place] [address] Family Medicine 08/26/24 [place] Clemente [address] [place] [address] [address] [place] [address] Referring General Surgery 10/01/24 Sandhya Kim, BUILDINGS AND GROUNDS SUPERINTENDENT Health Science Specialist 10/26/[address] [place] [address] [place] [address] Registered Dietitian Nutrition 10/27/24 Environmental Engineering Manager Relationship Specialty Start Date End Date Rashaun Donohue MD [address] [facility] [address] [place] [address] PCP - General Family Medicine 10/27/24 Rashanu Donohue MD [address] [facility] [address] [place] [address] Family Medicine 08/26/24 [place] Clemente [address] [facility] [address] [place] [address] Referring General Surgery 10/01/24 Sandhya Kim LSW Health Science Specialist 10/26/[address] [facility] [place] [address] Registered Dietitian Nutrition 10/27/24 Environmental Engineering Manager Relationship Specialty Start Date End Date Rashaun Donohue MD [address] [place] [address] PCP - General Family Medicine 10/27/24 Rashaun Donohue MD [address] [place] [address] Family Medicine 08/26/24 [place] Clemente [address] [place] [address] [place] [address] Referring General Surgery 10/01/24 Sandhya Kim LSW Health Science Specialist 10/26/[address] [facility] [place] [address] Registered Dietitian Nutrition 10/27/24 Environmental Engineering Manager Relationship Specialty Start Date End Date Rashaun Donohue MD [address] [facility] [address] [place] [address] PCP - General Family Medicine 10/27/24 Rashaun Donohue MD [address] [place] [address] Family Medicine 08/26/24 [place] Clemente [address] [place] [address] [place] [phone] Referring General Surgery 10/01/24 Sandhya Kim LSW Health Science Specialist 10/26/[address] [facility] [place] [address] Registered Dietitian Nutrition 10/27/24 Environmental Engineering Manager Relationship Specialty Start Date End Date Rashaun Donohue MD [address] [place] [address] PCP - General Family Medicine 10/27/24 Rashaun Donohue MD [address] [place] [address] Family Medicine 08/26/24 [place] Clemente [address] [facility] [address] [place] [phone] Referring General Surgery 10/01/24 Sandhya Kim LSW Health Science Specialist 10/26/[address] [facility] [place] [address] Registered Dietitian Nutrition 10/27/24 Environmental Engineering Manager Relationship Specialty Start Date End Date Rashaun Donohue MD [address] [place] [address] PCP - General Family Medicine 10/27/24 Rashaun Donohue MD [address] [place] [address] Family Medicine 08/26/24 [place] Clemente [address] [facility] [address] [place] [phone] Referring General Surgery 10/01/24 Sandhya Kim, RITESH Health Science Specialist 10/26/[address] [place] [address] [place] [address] Registered Dietitian Nutrition 10/27/24 Environmental Engineering Manager Relationship Specialty Start Date End Date Rashaun Donohue MD [address] [place] [address] PCP - General Family Medicine 10/27/24 Rashaun Donohue MD [address] [facility] [address] [place] [address] Family Medicine 08/26/24 [place] Clemente [address] [place] [address] [address] [place] [phone] Referring General Surgery 10/01/24 Sandhya Kim LSW Health Science Specialist 10/26/[address] [place] [address] [place] [address] Registered Dietitian Nutrition 10/27/24 Environmental Engineering Manager Relationship Specialty Start Date End Date Rashaun Donohue MD [address] [facility] [address] [place] [address] PCP - General Family Medicine 08/05/23 Rashaun Donohue MD [address] [place] [address] PCP - Amada BLACK 09/05/23 Environmental Engineering Manager Relationship Specialty Start Date End Date Rashaun Donohue MD [address] [place] [address] PCP - General Family Medicine 10/27/24 Rashaun Donohue MD [address] [place] [address] Family Medicine 08/26/24 [place] Clemente 7[address] [facility] [address] [place] [address] Referring General Surgery 10/01/24 Sandhya Kim LSW Health Science Specialist 10/26/[address] [facility] [place] [address] Registered Dietitian Nutrition 10/27/24 Rebecca Ballard RN [address] [facility] [place] [address] Specialty Tube Depatcher Hematology/Oncology 11/05/24 Sancho Sánchez MD [address] [facility] [place] [address] Physician Hematology/Oncology 11/05/24 Environmental Engineering Manager Relationship Specialty Start Date End Date Rashaun Donohue MD [address] [place] [address] PCP - General Family Medicine 10/27/24 Rashaun Donohue MD [address] [place] [address] Family Medicine 08/26/24 [place] Clemente [address] [facility] [address] [place] [address] Referring General Surgery 10/01/24 Sandhya Kim LSW Health Science Specialist 10/26/[address] [facility] [place] [address] Registered Dietitian Nutrition 10/27/24 Rebecca Ballard RN [address] [facility] [address] [place], [place] [address] Specialty Tube Depatcher Hematology/Oncology 11/05/24 Sancho Sánchez MD [address] [facility] [place] [address] Physician Hematology/Oncology 11/05/24 Environmental Engineering Manager Relationship Specialty Start Date End Date Rashaun Donohue MD [address] [facility] [address] [place] [address] PCP - General Family Medicine 10/27/24 Rashaun Donohue MD [address] [facility] [address] [place] [address] Family Medicine 08/26/24 [place] Clemente [address] [place] [address] 150 [place] [phone] Referring General Surgery 10/01/24 Sandhya Kim LSW Health Science Specialist 10/26/[address] [facility] [place] [address] Registered Dietitian Nutrition 10/27/24 Rebecca Ballard, RN [address] [facility] [place] [address] Specialty Tube Depatcher Hematology/Oncology 11/05/24 Sancho Sánchez MD [address] [facility] [place] [address] Physician Hematology/Oncology 11/05/24 Environmental Engineering Manager Relationship Specialty Start Date End Date Rashaun Donohue MD [address] [facility] [address] [place] [address] PCP - General Family Medicine 10/27/24 Rashaun Donohue MD [address] [facility] [address] [place] [address] Family Medicine 08/26/24 [place] Clemente [address] [facility] [address] [place] [phone] Referring General Surgery 10/01/24 Sandhya Kim, BUILDINGS AND GROUNDS SUPERINTENDENT Health Science Specialist 10/26/[address] [facility] [place] [address] Registered Dietitian Nutrition 10/27/24 Rebecca Ballard RN [address] [facility] [place] [address] Specialty Tube Depatcher Hematology/Oncology 11/05/24 Sancho Sánchez MD [address] [facility] [place] [address] Physician Hematology/Oncology 11/05/24 Environmental Engineering Manager Relationship Specialty Start Date End Date Rashaun Donohue MD [address] [facility] [address] [place] [address] PCP - General Family Medicine 10/27/24 Rashaun Donohue MD [address] [facility] [address] [place] [address] Family Medicine 08/26/24 [place] Clemente [address] [facility] [address] [place] [address] Referring General Surgery 10/01/24 Sandhya Kim LSW Health Science Specialist 10/26/[address] [facility] [place] [address] Registered Dietitian Nutrition 10/27/24 Rebecca Ballard RN [address] [facility] [place] [address] Specialty Tube Depatcher Hematology/Oncology 11/05/24 Sancho Sánchez MD [address] [facility] [place] [address] Physician Hematology/Oncology 11/05/24 Environmental Engineering Manager Relationship Specialty Start Date End Date Rashaun Donohue MD [address] [facility] [address] [place] [address] PCP - General Family Medicine 10/27/24 Rashaun Donohue MD [address] [facility] [address] [place] [address] Family Medicine 08/26/24 [place] Clemente [address] [place] [address] [address] [place] [address] Referring General Surgery 10/01/24 Sandhya Kim LSW Health Science Specialist 10/26/[address] [facility] [place] [address] Registered Dietitian Nutrition 10/27/24 Rebecca Ballard RN [address] [address] [place] [address] Specialty Tube Depatcher Hematology/Oncology 11/05/24 Sancho Sánchez MD [address] [facility] [place] [address] Physician Hematology/Oncology 11/05/24 Environmental Engineering Manager Relationship Specialty Start Date End Date Rashaun Donohue MD [address] [facility] [address] [place] [address] PCP - General Family Medicine 08/05/23 Environmental Engineering Manager Relationship Specialty Start Date End Date Rashaun Donohue MD [address] [place] [address] PCP - General Family Medicine 10/27/24 Rashaun Donohue MD [address] [facility] [address] [place] [address] Family Medicine 08/26/24 [place] Clemente [address] [place] [address] [address] [place] [address] Referring General Surgery 10/01/24 Sandhya Kim LSW Health Science Specialist 10/26/[address] [facility] [address] [place], [place] [address] Registered Dietitian Nutrition 10/27/24 Rebecca Ballard RN [address] [facility] [place] [address] Specialty Tube Depatcher Hematology/Oncology 11/05/24 Sancho Sánchez MD [address] [facility] [place] [address] Physician Hematology/Oncology 11/05/24 Environmental Engineering Manager Relationship Specialty Start Date End Date Rashaun Donohue MD [address] [facility] [address] [place] [address] PCP - General Family Medicine 10/27/24 Rashaun Donohue MD [address] [address] [place] [address] Family Medicine 08/26/24 [place] Clemente [address] [place] [address] [address] [place] [address] Referring General Surgery 10/01/24 Sandhya Kim LSW Health Science Specialist 10/26/[address] [facility] [place] [address] Registered Dietitian Nutrition 10/27/24 Rebecca Ballard, RN [address] [facility] [place] [address] Specialty Tube Depatcher Hematology/Oncology 11/05/24 Sancho Sánchez MD [address] [place] [address] Physician Hematology/Oncology 11/05/24 Environmental Engineering Manager Relationship Specialty Start Date End Date Rashaun Donohue MD [address] [facility] [address] [place] [address] PCP - General Family Medicine 10/27/24 Rashaun Donohue MD [address] [facility] [address] [place] [address] Family Medicine 08/26/24 [place] Clemente [address] [facility] [address] [place] [address] Referring General Surgery 10/01/24 Sandhya Kim LSW Health Science Specialist 10/26/[address] [place] [address] Registered Dietitian Nutrition 10/27/24 Rebecca Ballard, RN [address] [facility] [place] [address] Specialty Tube Depatcher Hematology/Oncology 11/05/24 Sancho Sánchez MD [address] [facility] [place] [place] [address] Physician Hematology/Oncology 11/05/24 Environmental Engineering Manager Relationship Specialty Start Date End Date Rashaun Donohue MD [address] [facility] [address] [place] [address] PCP - General Family Medicine 10/27/24 Rashaun Donohue MD [address] [facility] [address] [place] [address] Family Medicine 08/26/24 [place] Clemente [address] [place] [address] [address] [place] [phone] Referring General Surgery 10/01/24 Sandhya Kim LSW Health Science Specialist 10/26/[address] [place] [address] [place] [address] Registered Dietitian Nutrition 10/27/24 Rebecca Ballard, RN [address] [place] [address] [place] [address] Specialty Tube Depatcher Hematology/Oncology 11/05/24 Sancho Sánchez MD [address] [place] [address] [place] [address] Physician Hematology/Oncology 11/05/24 Environmental Engineering Manager Relationship Specialty Start Date End Date Rashaun Donohue MD [address] [facility] [address] [place] [address] PCP - General Family Medicine 10/27/24 Rashaun Donohue MD [address] [facility] [address] [place] [address] Family Medicine 08/26/24 [place] Clemente [address] [facility] [place] [address] Referring General Surgery 10/01/24 Sandhya Kim LSW Health Science Specialist 10/26/[address] [facility] [place] [address] Registered Dietitian Nutrition 10/27/24 Rebecca Ballard RN [address] [facility] [place] [address] Specialty Tube Depatcher Hematology/Oncology 11/05/24 Sancho Sánchez MD [address] [place] [address] [place] [address] Physician Hematology/Oncology 11/05/24 Source Comments (unrecognize d section and content) In the event this informatio n is protected by the Federal Confidentiality of Alcohol and Drug Abuse Patient Records regulations: The Federal rules restrict any use of the information to criminally investigate or prosecute any alcohol or drug abuse patient.[facility] the event this information is protected by the Federal Confidentiality of Alcohol and Drug Abuse Patient Records regulations: The Federal rules restrict any use of the information to criminally investigate or prosecute any alcohol or drug abuse patient.[facility] the event this information is protected by the Federal Confidentiality of Alcohol and Drug Abuse Patient Records regulations: The Federal rules restrict any use of the information to criminally investigate or prosecute any alcohol or drug abuse patient.[facility] the event this information is protected by the Federal Confidentiality of Alcohol and Drug Abuse Patient Records regulations: The Federal rules restrict any use of the information to criminally investigate or prosecute any alcohol or drug abuse patient.[facility] the event this information is protected by the Federal Confidentiality of Alcohol and Drug Abuse Patient Records regulations: The Federal rules restrict any use of the information to criminally investigate or prosecute any alcohol or drug abuse patient.[facility] the event this information is protected by the Federal Confidentiality of Alcohol and Drug Abuse Patient Records regulations: The Federal rules restrict any use of the information to criminally investigate or prosecute any alcohol or drug abuse patient.[facility] the event this information is protected by the Federal Confidentiality of Alcohol and Drug Abuse Patient Records regulations: The Federal rules restrict any use of the information to criminally investigate or prosecute any alcohol or drug abuse patient.[facility] ClinicIn the event this information is protected by the Federal Confidentiality of Alcohol and Drug Abuse Patient Records regulations: The Federal rules restrict any use of the information to criminally investigate or prosecute any alcohol or drug abuse patient.[facility] ClinicIn the event this information is protected by the Federal Confidentiality of Alcohol and Drug Abuse Patient Records regulations: The Federal rules restrict any use of the information to criminally investigate or prosecute any alcohol or drug abuse patient.[facility] ClinicIn the event this information is protected by the Federal Confidentiality of Alcohol and Drug Abuse Patient Records regulations: The Federal rules restrict any use of the information to criminally investigate or prosecute any alcohol or drug abuse patient.[facility] ClinicIn the event this information is protected by the Federal Confidentiality of Alcohol and Drug Abuse Patient Records regulations: The Federal rules restrict any use of the information to criminally investigate or prosecute any alcohol or drug abuse patient.[facility] ClinicIn the event this information is protected by the Federal Confidentiality of Alcohol and Drug Abuse Patient Records regulations: The Federal rules restrict any use of the information to criminally investigate or prosecute any alcohol or drug abuse patient.[facility] ClinicIn the event this information is protected by the Federal Confidentiality of Alcohol and Drug Abuse Patient Records regulations: The Federal rules restrict any use of the information to criminally investigate or prosecute any alcohol or drug abuse patient.[facility] ClinicIn the event this information is protected by the Federal Confidentiality of Alcohol and Drug Abuse Patient Records regulations: The Federal rules restrict any use of the information to criminally investigate or prosecute any alcohol or drug abuse patient.[facility] ClinicIn the event this information is protected by the Federal Confidentiality of Alcohol and Drug Abuse Patient Records regulations: The Federal rules restrict any use of the information to criminally investigate or prosecute any alcohol or drug abuse patient.[facility] ClinicIn the event this information is protected by the Federal Confidentiality of Alcohol and Drug Abuse Patient Records regulations: The Federal rules restrict any use of the information to criminally investigate or prosecute any alcohol or drug abuse patient.[facility] ClinicIn the event this information is protected by the Federal Confidentiality of Alcohol and Drug Abuse Patient Records regulations: The Federal rules restrict any use of the information to criminally investigate or prosecute any alcohol or drug abuse patient.[facility] ClinicIn the event this information is protected by the Federal Confidentiality of Alcohol and Drug Abuse Patient Records regulations: The Federal rules restrict any use of the information to criminally investigate or prosecute any alcohol or drug abuse patient.[facility] ClinicIn the event this information is protected by the Federal Confidentiality of Alcohol and Drug Abuse Patient Records regulations: The Federal rules restrict any use of the information to criminally investigate or prosecute any alcohol or drug abuse patient.[facility] ClinicIn the event this information is protected by the Federal Confidentiality of Alcohol and Drug Abuse Patient Records regulations: The Federal rules restrict any use of the information to criminally investigate or prosecute any alcohol or drug abuse patient.[facility] ClinicIn the event this information is protected by the Federal Confidentiality of Alcohol and Drug Abuse Patient Records regulations: The Federal rules restrict any use of the information to criminally investigate or prosecute any alcohol or drug abuse patient.[facility] ClinicIn the event this information is protected by the Federal Confidentiality of Alcohol and Drug Abuse Patient Records regulations: The Federal rules restrict any use of the information to criminally investigate or prosecute any alcohol or drug abuse patient.[facility] ClinicIn the event this information is protected by the Federal Confidentiality of Alcohol and Drug Abuse Patient Records regulations: The Federal rules restrict any use of the information to criminally investigate or prosecute any alcohol or drug abuse patient.[facility] ClinicIn the event this information is protected by the Federal Confidentiality of Alcohol and Drug Abuse Patient Records regulations: The Federal rules restrict any use of the information to criminally investigate or prosecute any alcohol or drug abuse patient.[facility] ClinicIn the event this information is protected by the Federal Confidentiality of Alcohol and Drug Abuse Patient Records regulations: The Federal rules restrict any use of the information to criminally investigate or prosecute any alcohol or drug abuse patient.[facility] ClinicIn the event this information is protected by the Federal Confidentiality of Alcohol and Drug Abuse Patient Records regulations: The Federal rules restrict any use of the information to criminally investigate or prosecute any alcohol or drug abuse patient.[facility] the event this information is protected by the Federal Confidentiality of Alcohol and Drug Abuse Patient Records regulations: The Federal rules restrict any use of the information to criminally investigate or prosecute any alcohol or drug abuse patient.[facility] ClinicIn the event this information is protected by the Federal Confidentiality of Alcohol and Drug Abuse Patient Records regulations: The Federal rules restrict any use of the information to criminally investigate or prosecute any alcohol or drug abuse patient.[facility] ClinicIn the event this information is protected by the Federal Confidentiality of Alcohol and Drug Abuse Patient Records regulations: The Federal rules restrict any use of the information to criminally investigate or prosecute any alcohol or drug abuse patient.[facility] ClinicIn the event this information is protected by the Federal Confidentiality of Alcohol and Drug Abuse Patient Records regulations: The Federal rules restrict any use of the information to criminally investigate or prosecute any alcohol or drug abuse patient.[facility] ClinicIn the event this information is protected by the Federal Confidentiality of Alcohol and Drug Abuse Patient Records regulations: The Federal rules restrict any use of the information to criminally investigate or prosecute any alcohol or drug abuse patient.[facility] ClinicIn the event this information is protected by the Federal Confidentiality of Alcohol and Drug Abuse Patient Records regulations: The Federal rules restrict any use of the information to criminally investigate or prosecute any alcohol or drug abuse patient.[facility] FOR RECORDS PERTAINING TO PATIENTS WHO ARE OR HAVE BEEN ENROLLED IN A CHEMICAL DEPENDENCY/SUBSTANCEABUSE PROGRAM, SOME INFORMATION MAY BE OMITTED. This clinical summary was aggregated from multiple sources. Caution should be exercised in using it in the provision of clinical care. This summary normalizes information from multiple sources, and as a consequence, information in this document may materially change the coding, format and clinical context of patient data. In addition, data may be omitted in some cases. CLINICAL DECISIONS SHOULD BE BASED ON THE PRIMARY CLINICAL RECORDS. [facility]. provides no warranty or guarantee of the accuracy or completeness of information in this document.
[2024-12-04 10:38] LABS: Glucometer 148 mg/dL (74-106)
--- NOTE | 2024-12-04 11:09 | ED_ITS ---
HPI HPI - General Adult General Chief complaint: Dizziness Stated complaint: dizzy, light flashes Time Seen by Provider: 12/04/24 10:36 Source: patient Mode of arrival: walk-in History of Present Illness HPI narrative: cc = low blood sugar Patient had an episode this morning in which she felt lightheaded and weak. He gets this intermittently and it is due to low blood sugar. He is not on insulin or other medication manage his diabetes, he simply refuses to eat an appropriate amount of calories per day. The and patient both admit that he has a poor diet with poor intake of fluids as well. This morning, when he experienced this, he ate some sugar and within a short time afterwards felt back to normal . He has no complaints at this time and spot glucose was 148. Related Data Previous Rx's ?Medication ?Instructions ?Recorded cephalexin 500 mg capsule 500 mg PO QID 10 days #40 caps 07/01/24 sulfamethoxazole 800 1 tab PO BID 10 days #20 tabs 07/01/24 mg-trimethoprim 160 mg tablet (Bactrim DS) Allergies Allergy/AdvReac Type Severity Reaction Status Date / Time No Known Drug Allergies Allergy Verified 07/01/24 15:42 Opioid HPI Opioid Management Most Recent Opioid Data: No Data to Display [facility] Medical History (Updated 12/04/24 @ 11:11 by Aditya Lisa) Diverticulitis ?K57.92 - Diverticulitis of intestine, part unspecified, without perforation or abscess without bleeding (ICD-10) Social History Little interest or pleasure in doing things: not at all Feeling down, depressed, or hopeless: not at all Exam Narrative Exam Narrative: Nurses notes and vital signs reviewed and patient is not hypoxic. afebrile General: Well-appearing and in no apparent distress. Skin: Warm, dry, no pallor noted. Head: Normocephalic, atraumatic. Eye: Pupils are equal, round and EOMI. No scleral icterus. Ears, Nose, Mouth, and Throat: Oral mucosa is moist Cardiovascular: Regular Rate and Rhythm without murmur, gallop or rub. Respiratory: No accessory muscle use or respiratory distress. Lungs are clear to auscultation, no wheezing, rales or rhonchi Musculoskeletal: normal ROM, no calf or popliteal tenderness, no lower extremity edema/swelling GI: Abdomen is soft, non-distended. Normal bowel sounds. No tenderness to palpation. No rebound, guarding, or rigidity noted. Neurological: A&O x4. No cranial nerve dysfunction observed. No truncal ataxia. Moves all extremities. Sensation intact. Psychiatric: Cooperative and interactive. Normal mood and affect. Constitutional Vital Signs, click to edit/add: Last Vital Signs Temp 98 F 12/04/24 10:30 Pulse 82 12/04/24 10:30 Resp 166 H 12/04/24 10:30 BP 131/80 12/04/24 10:30 Pulse Ox 99 12/04/24 10:30 O2 Del Method Room Air 12/04/24 10:30 Course Vital Signs Vital signs: Vital Signs Temperature 98 F 12/04/24 10:30 Pulse Rate 82 12/04/24 10:30 Respiratory Rate 166 H 12/04/24 10:30 Blood Pressure 131/80 12/04/24 10:30 Pulse Oximetry 99 12/04/24 10:30 Oxygen Delivery Method Room Air 12/04/24 10:30 Temperature 98 F 12/04/24 10:30 Pulse Rate 82 12/04/24 10:30 Respiratory Rate 166 H 12/04/24 10:30 Blood Pressure 131/80 12/04/24 10:30 Pulse Oximetry 99 12/04/24 10:30 Oxygen Delivery Method Room Air 12/04/24 10:30 Medical Decision Making MDM Narrative Medical decision making narrative: The patient was monitored in the emergency department and has no return of symptoms. Glucose 148. He feels back to normal. He has food at home and his told me that she will ensure that he get something to eat for lunch. Patient is agreeable as well. I had a long talk with the patient and his about proper caloric intake as well as proper hydration. Lab Data Lab results reviewed: Yes I reviewed the patient's lab results Labs: Lab Results 12/04/24 Range/Units 10:37 POC Glucose 148 H (74-106) mg/dL Discharge Plan Discharge Chief Complaint: Dizziness Clinical Impression: Hypoglycemia, Malnutrition Patient Disposition: Home, Self-Care Time of Disposition Decision: 11:11 Prescriptions / Home Meds: No Action sulfamethoxazole-trimethoprim [Bactrim DS] 800-160 mg tablet 1 tab PO BID 10 Days Qty: 20 0RF cephalexin 500 mg capsule 500 mg PO QID 10 Days Qty: 40 0RF Print Language: Barbadian Instructions: Malnutrition (DC) Referrals: RASHAUN DONOHUE [Primary Care Provider] - 1 week
--- NOTE | 2024-12-04 11:12 | ECG_ITS ---
[facility] Test Date: 2024-12-04 Pat Name: SABINE CERRATO Department: Room: - Gender: Male Temperer: : 1960 Requested By: RASHAUN DONOHUE Order Number: [id number] Reading MD: LUMA CANDELARIO Measurements Intervals [place] Rate: 74 P: 60 MA: 142 QRS: -30 QRSD: 82 T: 79 QT: 370 QTc: 398 Interpretive Statements 1100 Sinus rhythm [address] depression 7202 Moderate left axis deviation 9150 abnormal ECG Compared to ECG 08/10/2017 17:42:02 ST (T wave) deviation now present Left-axis deviation now present Short MA interval no longer present Electronically Signed On 12-05-2024 6:10:02 EST by LUMA CANDELARIO
== END 2024-12-04 11:23 | disposition home or self-care (01) ==
PROVIDERS: Emergency Provider Emergency Medicine; PCP Family Medicine
DX: E11.649 Type 2 diabetes mellitus with hypoglycemia without coma (principal); R42 Dizziness and giddiness; E46 Unspecified protein-calorie malnutrition; Z68.1 Body mass index [BMI] 19.9 or less, adult
CPT/HCPCS: 36415; 82948; 93005; 99284

== ENCOUNTER 2025-08-04 00:24 | Emergency (ER) | payer MEDICARE, SELFPAY ==
--- OUTSIDE RECORDS SUMMARY | 2025-07-28 13:00 | XMS_ITS | Encounter Summary ---
Author Organization [facility] Address [address] [place] [address] Care Team Providers Care Grounds Maintenance Worker Name Role Phone Corinne Torres MD Unavailable [phone] Adoany Clemente Unavailable [phone] Sandhya Kim Unavailable Unavailable Corinne Torres MD Primary Care Provider + [phone] Unavailable [phone] Mariola Ballard RN Unavailable [phone] Sancho Sánchez MD Unavailable [phone] Source Comments In the event this information is protected by the Federal Confidentiality of Alcohol and Drug AbusePatient Records regulations: The Federal rules restrict any use of the information to criminally investigate or prosecute any alcohol or drug abuse patient.[facility] Reason for Referral * Diagnostic Procedure Only (Routine) - AuthorizedSpecialtyDiagnoses / ProceduresReferred By ContactReferred To ContactXR IMAGING Diagnoses Attention to ileostomy (HCC) Procedures XR COLON SINGLE CONTRAST RADIOLOGIC EXAM [place]ON [place]ING[place] [address] [place] [address] Phone: tel: [place]: [place] [phone] Referral IDStatReshrutiStrocio DateExpiration DateVisits RequestedVisits [id number] Auto-Generated Referral Reason for Visit * ReasonCommentsPost Op Encounter Details DateTypeDepartmentCare Team (Latest Contact Info)Cdhlczghmzm54/23/2025 1:00 PM EDTOffice Visit Colorectal Surgery [address] [place], [place] [id number] [place] [address] [address] [place], [place] [id number] Attention to ileostomy (HCC) (Primary Dx) Social History Tobacco UseTypesPacks/DayYears UsedDateSmoking Tobacco: Every NgvFtuzdolqmp976.8 Started: 1972Smokeless Tobacco: Never Tobacco Cessation:Ready to Q uit: Not Asked; Counseling Given: Not Answered Alcohol UseStandard Drinks/WeekCommentsYes0 (1 standard drink = 0.6 oz pure alcohol)very seldomPHQ-2AnswerDate RecordedPHQ-2 tnfbb120UDIT-CAnswer Date RecordedQ1: How often do you have a drink containing alcohol?Monthly or less06/10/2025Q2: How many drinks containing alcohol do you have on a typical day when you are drinking?3 or Q3: How often do you have six or more drinks on one occasion?Less than csuwzlu7406/10/2025Hunger Vital SignAnswerDate RecordedWithin the past 12 months, you worried that your food would run out before you got the money to buymore.Never true06/20/2025Within the past 12 months, the food you bought just didn't last and you didn't have money to get more.Never true06/20/2025PRAPARE - TransportationAnswerDate RecordedIn the past 12 months, has lack of transportation kept you from medical appointments or from getting medications?No06/20/2025In the past 12 months, has lack of transportation kept you from meetings, work, or from getting things needed for daily living?06/20/2025Housing Stability Vital SignAnswerDate RecordedIn the last 12 months, was there a time when you were not able to pay the mortgage or rent on time?06/20/2025Number of Times Moved in the Last YearNot on file 06/20/2025t any time in the past 12 months, were you homeless or living in a retirement (including now)?06/20/2025HC UtilitiesAnswerDate RecordedIn the past 12 months has the electric, gas, oil, or water company threatened to shut off services in your home?06/20/2025rea Deprivation IndexAnswerDate Recorded National Score (1-100), lower number is lower ypox855810/07/2024State Score (1- 10), lower number is lower zqgw855Data from: https://www.neighborhoodatlas.[facility]/. Last address used for [address] [address]/07/2024Sex and Gender InformationValueDate RecordedSex Assigned at BirthNot on fileLegal GrrSmgh15/21/2024 4:26 PM EST Gender IdentityNot on fileSexual OrientationNot on filedocumented as of this encounter Last Filed Vital Signs Vital SignReadingTime TakenCommentsBlood Echeapxw931/7507/28/2025 12:54 PM EDT Rziby226207/28/2025 12:54 PM IQGSmdcdnqdwcw47.5 ??C (97.7 ??F)07/28/2025 12:54 PM EDTRespiratory Rate--Oxygen Ilmapokydl64%07/28/2025 12:54 PM EDTInhaled Oxygen Concentration--Weight--Height--Body Mass Index--documented in this encounter Patient Instructions * Patient Instructions* Teresa Tucker MD - 07/28/2025 1:26 PM EDT We discussed your care after your colon and rectal surgery and plans for your upcoming ostomy reversal: - You are about six weeks out from your surgery. We usually plan to reverse the bag about three months after surgery. - In about two to three weeks, we will schedule a contrast study. This test will check that your reconnection has healed well, that there are no leaks, and that everything is open. Mily will give you more information about this test. - If the contrast study looks good, we will move forward with scheduling your reversal surgery for the end of August or the beginning of September. Mily will help you get this scheduled today. - The reversal surgery is much shorter than your previous surgery and usually takes about two to three hours. You can expect to stay in the hospital for two to three days afterward. - Before the reversal surgery, I will do a scope to check that everything looks good. This will be done right before the surgery. - After the reversal, your bowel movements may be irregular for the first few weeks as your body readjusts. It is common to go to the bathroom multiple times a day and to have some irritation, but things usually settle down over time. - If the contrast study shows a leak, we will wait longer before scheduling your surgery to allow more time for healing. We discussed care for the skin around your stoma: - You mentioned a small rash around your stoma. I will ask Mily to provide you with stoma powder to help with this. - Continue making the ring for your bag the correct size, as you have been doing. We discussed your diet after surgery: - You do not need to cut out foods you enjoy, but I recommend eating in moderation and introducing new foods slowly, one at a time. If you notice certain foods make things worse, avoid them. Follow-up: - Mily will provide you with information about the contrast study and help you schedule both the test and your reversal surgery. - I will send you a message through dakick after your test to let you know if everything looks good and confirm the surgery date. If there are any issues, we will adjust the plan as needed. documented in this encounter Progress Notes * Teresa Tucker MD - 07/28/2025 1:00 PM EDT COLORECTAL SURGERY CLINIC NOTE July 28, 2025 Bentley Gonzalez 65 year old Recording using [employer] software for draft documentation of the visit was discussed with the patient/authorized small business representative; all questions welcomed and answered. Patient/authorized small business representative agreed to proceed Chief Complaint: post op Brief History: Bentley Gonzalez is a 65 year old man with an endoscopcially obstructing distal LARC s/p CAR, which was completed on 04/05/2025. Post-treatment flex completed at outside facility but per report, no tumornoted. However, MRI with residual tumor and tumor deposits. He is s/p robotic LAR/DLI, Mediport removal on 2025 Medical oncology - Dr. Sánchez Radiation oncology - Dr. Wheeler Endoscopist - Dr Clemente on 09/24/2024 Interval events: He reports generally feeling well and is eating normally, with a slight weight gain since surgery. He empties his ileostomy bag 5-6 times daily, typically when it is about half full. He notes a smallrash around the stoma, but no other skin care issues. He has not yet experienced any output per rectum, though he occasionally feels rectal pressure. He describes one episode of abdominal pain and transient constipation about 3 weeks ago after consuming a large amount of rigatoni with cheese at a baby shower; symptoms resolved the following day. He is not yet back to work. PAST MEDICAL HISTORY Diagnosis Date Rectal cancer (HCC) 09/24/2024 incomplete colonoscopy- Dr Clemente Smoker PAST SURGICAL HISTORY Procedure Laterality Date COLONOSCOPY PAST SURGICAL HISTORY OF port right chest wall TONSILLECTOMY & ADENOIDECTOMY <AGE 10 Current Outpatient Medications Medication Sig Dispense Refill iv contrast (will be provided with radiology test) CT Chest ABD/PEL-Inject, intravenously, once for1 dose.No IV access, insert saline lock prior to the beginning of sedation, infusion, injection of imaging exam. Discontinue saline lock post exam. If Pt. has a central line or IVAD, may access for administration according to line specific nursing protocol. Once exam is complete flush line and de-access according to line specific nursing protocol in the CT contrast administration guidelines link.(Patient not taking: Reported on 07/28/2025) 1 each 0 enteric contrast (will be provided with radiology test) For CT CHESTABD/PEL W IVCON Routine order Administer, As Directed One Time Only, via Oral, Rectal, both Oral and Rectal, Enteric Tube, Stoma orIndwelling Catheter, Enteric Contrast as designated per enteric contrast guidelines (Patient not taking: Reported on 07/28/2025) 1 each 0 acetaminophen (TYLENOL) 500 mg tablet Take 2 tablets by mouth every 6 hours. 50 tablet 0 ibuprofen (MOTRIN) 400 mg tablet Take 1 tablet by mouth every 8 hours. 20 tablet 0 methocarbamol (ROBAXIN) 500 mg tablet Take 1 tablet by mouth three times a day as needed. 15 tablet0 Bacillus coagulan-calcium carb (DIGESTIVE ADVANTAGE PROBIOTIC) 2 billion cell- 140 mg capsule Take 1 capsule by mouth once daily. (Patient not taking: Reported on 07/28/2025) 30 capsule 0 No current facility-administered medications for this visit. ALLERGIES No Known Allergies FAMILY HISTORY Problem Relation Age of Onset Breast Cancer Mother Lung Cancer Father Cancer Sister SOCIAL HISTORY[1] Physical Exam: BP 115/75 (BP Site: Right Arm, BP Position: Sitting, BP Cuff Size: Regular Adult) Pulse 75 Temp36.5 ??C (97.7 ??F) SpO2 97% General Appearance: Well appearing, alert, in no acute distress, well-hydrated, well nourished. Abdomen: soft, non distended, non tender. Stoma pink and patent Initial MRI rectum 10/29/24 Stage: T3d N+ 4.7 cm mid rectal mass extending into the mesorectal fat with multiple suspicious mesorectal lymph nodes. Stage: T3d N+ MRF: Involved (tumor margin within 1 mm of MRF Sphincter involvement: No. Suspicious extra mesorectal lymph nodes: No. EMVI: Yes. Midtreatment MRI 01/20/2025- at [facility] (Images uploaded) -Circumferential rectal mass/malignancy. There has been moderate reduction in size with comparativemeasurements given above. - Nearby presacral metastatic deposits. These have diminished moderately in size as well with comparative measurements given above Repeat MRI 05/19/2025: Decrease in size of mid-rectal mass with some post-treatment fibrosis, although still with significant residual viable tumor. Persistent EMVI and abutment of the mesorectal fascia. Dominant superior rectal tumor deposit (which also abuts the mesorectal fascia posteriorly) has decreased in size. A single left mesorectal node is decreased in size but remains suspicious. Remainder of the nodes/tumor deposits no longer meet threshold. Since 10/29/2024, post treatment primary tumor assessment: Incomplete response (likely residual tumor). mrTRG: Grade 4 - Partial response Suspicious Mesorectal lymph nodes: Yes Suspicious Extramesorectal lymph nodes: No CT CAP on 04/27/2025 -A 4 mm right upper lobe nodule is more conspicuous compared to the prior CT performed in October 2024, attention is recommended on subsequent restaging exams. Additional pulmonary nodules measuring up to 4 mm are unchanged. -No pathologically enlarged lymph nodes identified in the chest. -Improvement in previously noted rectal wall thickening and decreased size of the superior rectal lymph node mass. - No CT evidence of new metastatic disease in the abdomen/pelvis. Colonoscopy 09/24/24 - Dr. Clemente (incomplete) Scan on 10/04/2024 11:25 AM by Provider, External, PA-C: Miscellaneous Procedures Scan on 10/15/2024 12:25 PM by Provider, External, PA-C: Pathology 10/18/24 11:11 11/08/24 09:17 01/06/25 09:03 02/23/25 09:03 CEA 2.6 2.8 1.7 2.0 PATH: T3 N1b A. Prostate capsule, biopsy: - Benign fibromuscular tissue. B. Sigmoid colon and rectum, resection: - Residual invasive adenocarcinoma (see comment and synoptic report). - Metastatic adenocarcinoma involving two of nineteen lymph nodes (2/19). - Nine (9) hyperplastic polyps. C. Distal donut, excision: - Segment of rectum with no diagnostic abnormality. CT A/P IMPRESSION: * Rim-enhancing presacral fluid collection measuring 2.2 cm. This may represent post operative collection or abscess. Clinical correlation recommended. * Postsurgical changes, as detailed. Bilateral abdominal wall subcutaneous emphysema. No pneumoperitoneum. Correlate with recent surgery. * Subcentimeter hypoattenuating liver lesion. While this likely represents a benign entity such as cyst or hemangioma, given history of rectal cancer metastasis is not excluded. Recommend clinical correlation and appropriate follow-up imaging, as indicated. Assessment Assessment and Plan: Bentley Gonzalez is a 65 year old man with an endoscopcially obstructing distal LARC s/p CAR, which was completed on 04/05/2025. Post-treatment flex completed at outside facility but per report, no tumornoted. However, MRI with residual tumor and tumor deposits. He is s/p robotic LAR/DLI, Mediport removal on 2025. Final path T3N1b Discussed surgical steps, recovery and R/B/A of DLI closure. Will need GGE preop and flex sig at the time of surgery Informed consent obtained Will need completion c/scope post-op Will schedule Medical Decision Making: Data Reviewed: Tests & Documents Reviewed/ordered: Review of prior notes from [facility] Review of prior operative reports Review of Pathology Review of Imaging: CT Abdomen, CT Pelvis, CT Chest Review of Procedures / Tests: Colonoscopy I have independently interpreted: CT Abdomen, CT Pelvis, CT Chest I have discussed Bentley Gonzalez's treatment plan and/or results with patient. Risk of morbidity, mortality and/or complications of treatment plan: felton Tucker MD Colorectal Surgery [1] Social History Tobacco Use Smoking status: Every Day Current packs/day: 1.00 Average packs/day: 1 pack/day for 54.8 years (54.8 ttl pk-yrs) Types: Cigarettes Start date: 1972 Smokeless tobacco: Never Vaping Use Vaping status: Never Used Substance Use Topics Alcohol use: Yes Comment: very seldom Drug use: Not Currently documented in this encounter Plan of Treatment DateTypeDepartmentCare Team (Latest Contact Info)Qylyypulimx39/30/2025 9:00 AM EDTAppointment [facility] Radiology Gastrointestinal [address] [place] [address] GGE110/31/2024 8:20 AM ESTPAT Pre Anesthesia [address] [place] [address] 2, Pacc [place] [address] [place] [address] DOS 09/14/2512 7:30 AM ESTHospital Encounter [facility] Operating Room [address] [place] [address] Teresa Tucker MD [address] [place] [address] Attention to ileostomy (HCC) [Z43.2]09/14/2025 7:30 AM EST - 09/14/2025 10:55 AM ESTSurgery [facility] [address] [place] [address] [place] [address] [place] [address] CLOSURE TSGGMAYVM34/05/2026 9:45 AM ESTAppointment Radiology Pet CT [address] [place] [address] CT cap11/17/2025 9:40 AM ESTVisit (SP) Office Hematology/Oncology [address] [place] [address] Lam Patel MD [address] [place] [address] CT results PAYTON from ReddyNameTypePriorityAssociated DiagnosesOrder ScheduleXR COLON SINGLE CONTRASTRadiologyRoutine Attention to ileostomy (HCC) 1 Occurrences starting 07/28/2025 until 6COMPLETE BLOOD COUNTLabRoutine Attention to ileostomy (HCC) Expected: 07/28/2025, Expires: 10/27/2025OMPREHENSIVE METABOLIC PANELLabRoutine Attention to ileostomy (HCC) Expected: 07/28/2025, Expires: 10/27/2025NamePriorityAssociated Diagnoses Date/TimeCLOSURE ILEOSTOMY Attention to ileostomy (HCC) 09/14/2025 7:30 AM ESTSIGMOIDOSCOPY FLEXIBLE Attention to ileostomy (HCC) 09/14/2025 7:30 AM ESTdocumented as of this encounter Visit Diagnoses Diagnosis Attention to ileostomy (HCC)- Primary Attention to ileostomy Attention to ileostomy (HCC) Attention to ileostomy documented in this encounter Care Teams Team MemberRelationshipSpecialtyStart DateEnd Date Corinne Torres MD [address] [facility] [address] [place] [address] PCP - GeneralFamily Medicine10/27/24 Corinne Torres MD [address] [place] [address] [address] [place] [address] Family Yibesggt82/21/24 Adonay Clemente [address] [place] [address] ReferringGeneral Tcbjmcx53/27/24 Sandhya Kim LSW Social Worker10/26/[address] [place] [address] [place] [address] Registered DietitianNutrition10/27/24 Mariola Ballard, RN [address] [place] [address] [place] [address] Specialty Care CoordinatorHematology/Oncology11/05/24 Sancho Sánchez MD [address] [place] [address] [place] [address] PhysicianHematology/Oncology11/05/24documented as of this encounter
[2025-08-04] VITALS (26 sets, daily range): BP systolic 105–132; BP diastolic 66–85; PULSE 79–94; TEMP 36.6; O2SAT 94–99; BMI 17.0
--- NOTE | 2025-08-04 00:37 | ECG_ITS ---
[facility] Test Date: 2025-08-04 Pat Name: SABINE CERRATO Department: Room: - Gender: Male Upper Cutter Out: : 1960 Requested By: [id number] Order Number: [id number] Reading MD: ERICH ALVARADO M.D. Measurements Intervals Edison Rate: 81 P: 65 KS: 142 QRS: 32 QRSD: 86 T: 76 QT: 386 QTc: 424 Interpretive Statements 1100 Sinus rhythm 3433 Septal myocardial infarction, probably old 9150 abnormal ECG Compared to ECG 12/04/2024 10:37:03 Myocardial infarct finding now present ST (T wave) deviation no longer present Left-axis deviation no longer present Electronically Signed On 08-04-2025 6:37:32 EDT by ERICH ALVARADO M.D.
--- OUTSIDE RECORDS SUMMARY | 2025-08-04 00:42 | XMS_ITS | Encounter Summary ---
Author Organization [facility] Address [address] [place] [address] Care Team Providers Care Director Specialty Name Role Phone Corinne Torres MD Primary Care Provider [phone] Corinne Torres MD Unavailable Viviana Graves LPN Unavailable Encounter Details DateTypeDepartmentCare Team (Latest Contact Info)Ywqtmdcapqu47/22/2025linisync Result Encounter [facility] External Department Unsolicited Provider, Generic External Data Social History Tobacco UseTypesPacks/DayYears UsedDateSmoking Tobacco: Every DayCigarettes Smokeless Tobacco: NeverAlcohol UseStandard Drinks/WeekCommentsYes0 (1 standard drink = 0.6 oz pure alcohol)1 or 2 every couple [id number] Health LiteracyAnswer Date RecordedHow often do you need to have someone help you when you read instructions, pamphlets, or other written material from your doctor or pharmacy? Never06/27/2025Humiliation, Afraid, Rape, and Kick questionnaireAnswerDate RecordedWithin the last year, have you been afraid of your partner or ex-partner?No06/27/2025Within the last year, have you been humiliated or emotionally abused in other ways by your partner or ex-partner?No06/27/2025 Within the last year, have you been kicked, hit, slapped, or otherwise physically hurt by your partner or ex-partner?No06/27/2025Within the last year, have you been raped or forced to have any kind of sexual activity by your part ner or ex-partner?No06/27/2025Social Connection and Isolation PanelAnswerDate RecordedIn a typical week, how many times do you talk on the phone with family, friends, or neighbors?More than three times a week06/27/2025How often do you get together with friends or relatives?Three times a week06/27/2025How often do you attend evangelical or amish services?1 to 4 times per year06/27/2025Do you belong to any clubs or organizations such as evangelical groups, unions, fraternal or athletic groups, or school groups?Yes06/27/2025How often do you attend meetings of the clubs or organizations you belong to?More than 4 times per year06/27/2025 Are you , , , , never , or living with a partner?Ipshlsh1706/27/2025UDIT-CAnswerDate RecordedQ1: How often do you have a drink containing alcohol?Monthly or less06/27/2025Q2: How many drinks containing alcohol do you have on a typical day when you are drinking?3 or Q3: How often do you have six or more drinks on one occasion?Kfpudlj8806/27/2025 Overall Financial Resource Strain (CARDIA)AnswerDate RecordedHow hard is it for you to pay for the very basics like food, housing, medical care, and heating?Not very hard06/27/2025PHQ-2AnswerDate RecordedPatient Health Questionnaire-2 Score0 01/04/2025[facility] [place] [facility] - Occupational Stress QuestionnaireAnswerDate RecordedDo you feel stress - tense, restless, nervous, or anxious, or unable to sleep at night because yourmind is troubled all the time - these days?Only a oukgmu0306/27/2025Exercise Vital SignAnswerDate Recorded On average, how many days per week do you engage in moderate to strenuous exercise (like a brisk walk)?7 days06/27/2025On average, how many minutes do you engage in exercise at this level?30 min06/27/2025Hunger Vital SignAnswerDate RecordedWithin the past 12 months, you worried that your food would run out before you got the money to buymore.Sometimes true06/27/2025Within the past 12 months, the food you bought just didn't last and you didn't have money to get more.Never true06/27/2025PRAPARE - TransportationAnswerDate RecordedIn the past 12 months, has lack of transportation kept you from medical appointments or from getting medications?No06/27/2025In the past 12 months, has lack of transportation kept you from meetings, work, or from getting things needed for daily living?No06/27/2025Housing Stability Vital SignAnswerDate RecordedIn the last 12 months, was there a time when you were not able to pay the mortgage or rent on time?No06/27/2025In the past 12 months, how many times have you moved where you were living?t any time in the past 12 months, were you homeless or living in a jail (including now)?No06/27/2025Sex and Gender InformationValueDate RecordedSex Assigned at BirthNot on fileLegal SexMale 12/18/2022 6:57 PM EDTGender IdentityNot on fileSexual OrientationNot on file documented as of this encounter Functional Status * AUDIT-C ScoreAnswerDate of IkigrvywyhSwjiiz167/22/2025 6:03 PM EDNeftali, Generic * Q1: How often do you have a drink containing alcohol?AnswerDate of Assessment AuthorMonthly or less06/27/2025 6:03 PM EDNeftali, Generic * Q2: How many drinks containing alcohol do you have on a typical day when you are drinking?AnswerDate of AssessmentAuthor3 or 409 6:03 PM EDT Mycriccardot, Generic * Q3: How often do you have six or more drinks on one occasion?AnswerDate of VytqlpskyeDwqduvTnvapvn48/22/2025 6:03 PM EDNeftali, Generic * Over the past 2 weeks, how often have you been bothered by any of the following problems?QuestionAnswerDate of AssessmentAuthorLittle interest or pleasure in doing thingsNot at all01/04/2025 2:00 PM EDTVoclifton, Isidra, CUSTOMER ORDERS CLERK Feeling down, depressed, or hopelessNot at all01/04/2025 2:00 PM EDTIsidra Billingsley LPNPatient Health Questionnaire-2 [id number] 2:00 PM Isidra Taylor LPN * QuestionAnswerDate of AssessmentAuthorTrouble falling or staying asleep, or sleeping too muchNot at all01/04/2025 2:00 PM EDTVoIsidra lazo LPNFeeling tired or having little energyNot at all01/04/2025 2:00 PM EDTIsidra Billingsley LPNPoor appetite or overeatingNot at all01/04/2025 2:00 PM EDTVoIsidra lazo LPNFeeling bad about yourself - or that you are a failure or have let yourself or your family downNot at all01/04/2025 2:00 PM EDTIsidra Billingsley LPNTroucarie concentrating on things, such as reading the newspaper or watching television Not at all01/04/2025 2:00 PM Isidra Taylor LPNMoving or speaking so slowly that other people could have noticed? Or the opposite - being so fidgety or restless that you have been moving around a lot more than usual.Not at all 01/04/2025 2:00 PM Isidra Taylor LPNThoughts that you would be better off or hurting yourself in some wayNot at all01/04/2025 2:00 PM Isidra Taylor LPNPatient Health Questionnaire-9 [id number] 2:00 PM Isidra Taylor LPN documented as of this encounter Plan of Treatment DateTypeDepartmentCare Team (Latest Contact Info)Gqrxqmgxooa17/15/2025 10:15 AM ESTOffice Visit [facility] [address] [facility] [address] [place] [id number] Corinne Torres MD [address] [facility] [address] [place] [address] documented as of this encounter Procedures Procedure NamePriorityDate/TimeAssociated DiagnosisCommentsCT ABD/PEL W IVCON 10/27/2024 9:01 AM EST documented in this encounter Results * CT ABD/PEL W IVCON (10/27/2024 9:01 AM EST)Anatomical RegionLateralityModality OtherSpecimen (Source)Anatomical Location / LateralityCollection Method / VolumeCollection TimeReceived Time10/27/2024 9:01 AM EST Narrative 10/27/2024 11:16 AM EST * * *Final Report* * * DATE OF EXAM: Oct 27 2024 ??9:01AM ?? [facility] ?? 0530 ??- ??CT ABD/PEL W IVCON ??/ PROCEDURE REASON: Rectal mass ? * * * * Physician Interpretation * * * * RESULT: EXAMINATION: ??CT ABDOMEN AND PELVIS WITH IV CONTRAST PATIENT/TECHNOLOGIST PROVIDED HISTORY: ?? rectal cancer CLINICAL INFORMATION ( PROVIDED BY ORDERING CLINICIAN) : ??Rectal mass TECHNIQUE: CT of the abdomen and pelvis was performed using standard technique, scanning from just above the dome of the diaphragm to the pubic symphysis. ??. Contrast: IV: ??100 ml of Omnipaque 350 Oral: ??500 ml of Omni 240 10-25ml diluted with water CT Radiation dose: Integrated Dose-length product (DLP) for this visit = ?? 405 mGy*cm. CT Dose Reduction Employed: Automated exposure control (AEC) COMPARISON: None. Abdomen / Pelvis: Liver: ??4 mm low-attenuation lesion in segment 8 (image 20) too small to characterize. ??Additional 2 mm low-attenuation lesion in segment 4A (axial image 18). Spleen: No focal splenic lesion. Pancreas: No focal pancreatic lesions. Adrenals: No mass. Biliary: No bile duct dilation. ??No gallbladder wall thickening. Kidneys: Symmetric nephrograms bilaterally without hydronephrosis. ??1.7 cm above water attenuation lesion posterior interpolar left kidney (image 39). Vasculature: ??The celiac axis and SMA are patent. The portal vein and branches, splenic vein, SMV, and hepatic veins are patent. ??Moderate atherosclerotic calcifications of the abdominal aorta without aneurysm. GI tract: Approximately 5 cm rectal mass in the mid rectum extending through the rectal wall. ??Large amount of stool within the colon without colonic dilation. Lymph nodes: Multiple subcentimeter suspicious appearing mesorectal lymph nodes. ??2.5 x 2.0 cm superior rectal lymph node mass (axial image 101). ?? 1.2 cm superior rectal node (image 96). Mesentery/Peritoneum: No ascites, fluid collection, or mass. Pelvis: No mass or fluid collection. Urinary bladder is unremarkable. Bones/Soft tissues: No aggressive osseous lesions. Lower thorax: Dedicated CT imaging of the chest was performed concurrently and is dictated separately. Senior Media Planner (topogram) images: Unremarkable. IMPRESSION: 5 cm rectal mass with metastatic mesorectal and superior rectal lymphadenopathy. Indeterminate subcentimeter low-attenuation lesions in the liver. Attention on follow-up is recommended. 1.7 cm above water attenuation lesion in the left kidney. ??Consider ultrasound for further assessment versus attention on follow-up. Transcribe Date/Time: Oct 27 2024 11:04A Dictated by: WILLA GILLESPIE MD This examination was interpreted and the report reviewed and electronically signed by: WILLA GILLESPIE MD on Oct 27 2024 11:14AM ??EST Thank you for allowing us to participate in the care of your patient. Should there be any questions regarding this interpretation, please call [phone]. If you are unable to reach us at the number above, please feel free to contact [facility] at [phone]. [id number]^[email or web address]^SI^ACN Procedure Note Radiology, Radiologist, - 10/27/2024 * * *Final Report* * * DATE OF EXAM: Oct 27 2024 9:01AM [facility] 0530 - CT ABD/PEL W [...] was performed concurrently and is dictated separately. Senior Media Planner (topogram) images: Unremarkable. IMPRESSION: 5 cm rectal [...] any questions regarding this interpretation, please call [phone]. If you are unable to reach us at the number above, please feel free to contact [facility] at [phone]. [id number]^AGFA_IDC^SI^ACN Authorizing ProviderResult TypeResult StatusGeneric External Data Provider CLINISYNC IMAGINGFinal Result documented in this encounter Visit Diagnoses Not on filedocumented in this encounter Care Teams Team MemberRelationshipSpecialtyStart DateEnd Date Corinne Torres MD [address] [facility] [address] [place] [address] [facility] Corinne Torres MD [address] [facility] [address] [place] [address] PCP - Amada BLACK09/05/23 Viviana Graves LPN [address] [facility] [address] [place] [address] 07/18/25documented as of this encounter
--- OUTSIDE RECORDS SUMMARY | 2025-08-04 00:42 | XMS_ITS ---
Author Organization [facility] Address [address] [place] [address] Care Team Providers Care Director Underwriter Sales Name Role Phone Corinne Torres MD Unavailable Adonay Clemente Unavailable Sandhya Kim DIRECTOR OF CORPORATE STRATEGY Unavailable Unavailable Corinne Torres MD Primary Care Provider + [phone] Unavailable [phone] Mariola Ballard RN Unavailable Sancho Sánchez MD Unavailable Active Problems ProblemNoted DateDiagnosed EtwaYpanwgpzfgdx77/01/2025Rectal wcpizy2112/06/2024 Cancer Staging: Pathologic stage from 06/27/2025: ypT3, ypN1b - Signed by Sergey Arenas MD on 06/27/2025 Benign essential xspmigqggvlv43/27/2023Elevated blood sugar08/05/2023Smoker 08/05/2023 Current Treatment and Therapy Plans AMB MODIFIED FOLFOX 6 - OXALIPLATIN 85 5FU 400 IVP D1 5FU 2400 CADD OVER 46 HRS - Q14D* Plan Start Date:12/29/2024 Plan Provider:Sancho Sánchez MD Linked Problems Rectal cancer (HCC) Treatment Medications* * fluorouracil (ADRUCIL) * fluorouracil iv infusion CASSETTE (ADRUCIL)with rate * leucovorin iv piggyback * oxaliplatin iv piggyback in D5W 500 mL (ELOXATIN) * palonosetron (ALOXI) Past Treatment and Therapy Plans No past plan information found. Resolved Problems ProblemNoted DateDiagnosed DateResolved DateEncounter for ostomy care education Ileostomy bag [id number]
--- OUTSIDE RECORDS SUMMARY | 2025-08-04 00:42 | XMS_ITS | Clinical Summary ---
Author Organization [facility] Healthcare Address [address] [place] [address] Care Team Providers Care Hair Clipper Power Name Role Phone Corinne Torres MD Primary Care Provider [phone] Corinne Torres MD Unavailable Viviana Graves LPN Unavailable Allergies No known active allergies Medications MedicationSigDispense QuantityRefillsLast FilledStart DateEnd DateStatus acetaminophen (Tylenol) 500 MG tablet Take 1,000 mg by mouth in the morning and 1,000 mg at noon and 1,000 mg in the evening and 1,000 mgbefore bedtime.5Active apixaban (Eliquis) 2.5 MG tablet Take 2.5 mg by mouth in the morning and 2.5 mg in the evening.5Active ibuprofen 400 MG tablet Take 400 mg by mouth in the morning and 400 mg at noon and 400 mg in the evening.5Active methocarbamol (Robaxin) 500 MG tablet Take 500 mg by mouth every 8 (eight) hours if obtdms7406/20/2025tive famotidine (Pepcid) 20 MG tablet TAKE 1 TABLET BY MOUTH TWICE DAILY (IN THE MORNING and before bedtime)Active Lactobacillus Acid-Pectin (Acidophilus/[place] Pectin) tablet Take 1 tablet by mouth in the morning. Take with meals.Active Probiotic Product (Digestive Advantage) capsule Take 1 capsule by mouth in the morning.Expired Active Problems ProblemNoted DateDiagnosed DateMetastatic adenocarcinoma to colorectal region 06/28/2025 Assessment & Plan (06/28/2025 10:46 AM EDT): Has Colostomy and will try reanastomisis in 2-3 months F/U with Hem Onc Dr. Marshall F in July 15 Emphysema, ahgknvdwtfu49/23/2025 Assessment & Plan (06/28/2025 10:45 AM EDT): No current symptoms Still smoker Paroxysmal atrial bhyxejhxtuum19/23/2025 Assessment & Plan (06/28/2025 10:44 AM EDT): Possibly post op Dependence on nicotine from /23/2025 Assessment & Plan (06/28/2025 10:45 AM EDT): Discussed smoking cessation with the patient. Encouraged patient to try to cut back gradually and soon quit smoking. Discussed ways to quit smoking including gum, patches, medication, and gradually reducing the number of cigarettes smoked daily. 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 Patient voiced understanding. Benefits of cessation, both health and financial, were reviewed. Cbapqehdk10/23/2025 Assessment & Plan (06/28/2025 10:48 AM EDT): Pepcid AC or Prilosec Vrajelqmagaa65/01/2025Rectal exibue1010/01/2024Unspecified protein-calorie malnutrition (HHS-HCC)09/14/2024 Assessment & Plan (09/14/2024 4:25 PM EST): Supplement shake encouraged Change in bowel dzbrgt7409/07/2024Slow transit ytqdeihqcxco93/28/2024 Assessment & Plan (08/02/2024 3:06 PM EDT): Add Senokot S every Day Increase water 48 oz Blood in stool08/02/20242713Ansnlsl52/02/2024enign essential fnqtdqkcmnyq25/27/2023 Assessment & Plan (08/02/2024 2:52 PM EDT): Our specific goals, for your hypertension, is to keep your blood pressure less than 140/90, and theimportance of weight control. We made recommendations on [...] the importance of taking them as prescribed. [employer] handouts Assessment & Plan (09/01/2023 3:59 PM EST): Our specific goals, for your hypertension, is to keep your blood pressure less than 140/90, and theimportance of weight control. We made recommendations on [...] the importance of taking them as prescribed. [employer] handouts Fzhxuz8808/05/2023 Assessment & Plan (09/14/2024 4:24 PM EST): Discussed smoking cessation with the patient. Encouraged patient to try to cut back gradually and soon quit smoking. Discussed ways to quit smoking including gum, patches, medication, and gradually reducing the number of cigarettes smoked daily. 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 Patient voiced understanding. Benefits of cessation, both health and financial, were reviewed. Assessment & Plan (08/05/2023 2:53 PM EDT): Discussed smoking cessation with the patient. Encouraged patient to try to cut back gradually and soon quit smoking. Discussed ways to quit smoking including gum, patches, medication, and gradually reducing the number of cigarettes smoked daily. Discussed potential health risks of senior care smoking. Patient voiced understanding. Benefits of cessation, both health and financial, were reviewed. Needs CT scan and AAA screen Elevated blood sugar08/05/2023 Assessment & Plan (06/28/2025 10:44 AM EDT): A1c 5.1 No evidence of symptoms of Diabetes Resolved Problems ProblemNoted DateDiagnosed DateResolved DateHypoglycemic episode in patient with diabetes nytvwdnq13Obstruction of txstac21/10/2024 Acute cystitis without szvrwoion45/10/20240229Fictkayw10 Medicare annual wellness visit, drqnaja07/10/2024 Assessment & Plan (09/14/2024 4:23 PM EST): Colonoscopy every 10 years or Cologuard every 3 years ages 50-75 Flu Vaccine yearly Pneumovax and Prevnar Mammo yearly for women and PSA yearly for men Labs/Screening yearly to rule out Diabetes, Chronic Kidney disease and liver disease Hepatitis Screen forat risk populations Shingles vaccine after65 if indicated Tetanus Vaccine every 10 years Lipids yearly under the age of 75 If Smoking history: one time CT scan of chest and Ultrasound of Aorta to screen for Anuerysm Assessment & Plan (09/01/2023 3:59 PM EST): Colonoscopy every 10 years or Cologuard every 3 years ages 50-75 Flu Vaccine yearly Pneumovax and Prevnar Mammo yearly for women and PSA yearly for men Labs/Screening yearly to rule out Diabetes, Chronic Kidney disease and liver disease Hepatitis Screen forat risk populations Shingles vaccine after65 if indicated Tetanus Vaccine every 10 years Lipids yearly under the age of 75 If Smoking history: one time CT scan of chest and Ultrasound of Aorta to screen for Anuerysm Type 2 diabetes mellitus with diabetic zovzynwfis99/30/202304/10/2024 Assessment & Plan (09/14/2024 4:23 PM EST): No Tobacco use Follow ADA 1800 diet low carbohydrate Continue Med Compliance Goal LDL less than 100Goal BP 130/80 Goal HgbA1c < 7.0% Monitor Feet, monitor for infection Needs Exercise Yearly eye exams Prior to your visit today we reviewed your chart and outlined testing and treatment needed foryour care. Reviewed poissble complications of diabetes including, loss of vision, kidney failure and increased risk of heart attacks and stroke. We made recommendations on how to control your blood sugars, and minimize your risk of these complications. We discussed your current barriers to a healthy living and importance of healthy diet and exercise. Assessment & Plan (08/02/2024 2:52 PM EDT): No Tobacco use Follow ADA 1800 diet low carbohydrate Continue Med Compliance Goal LDL less than 100Goal BP 130/80 Goal HgbA1c < 7.0% Monitor Feet, monitor for infection Needs Exercise Yearly eye exams Prior to your visit today we reviewed your chart and outlined testing and treatment needed foryour care. Reviewed poissble complications of diabetes including, loss of vision, kidney failure and increased risk of heart attacks and stroke. We made recommendations on how to control your blood sugars, and minimize your risk of these complications. We discussed your current barriers to a healthy living and importance of healthy diet and exercise. Assessment & Plan (09/01/2023 3:58 PM EST): A1c was 5.5% last visit No Tobacco use Follow ADA 1800 diet low carbohydrate Continue Med Compliance Goal LDL less than 100Goal BP 130/80 Goal HgbA1c < 7.0% Monitor Feet, monitor for infection Needs Exercise Yearly eye exams Prior to your visit today we reviewed your chart and outlined testing and treatment needed foryour care. Reviewed poissble complications of diabetes including, loss of vision, kidney failure and increased risk of heart attacks and stroke. We made recommendations on how to control your blood sugars, and minimize your risk of these complications. We discussed your current barriers to a healthy living and importance of healthy diet and exercise. Assessment & Plan (08/05/2023 2:47 PM EDT): No Tobacco use Follow ADA 1800 diet low carbohydrate Continue Med Compliance Goal LDL less than 100Goal BP 130/80 Goal HgbA1c < 7.0% Monitor Feet, monitor for infection Needs Exercise Yearly eye exams Prior to your visit today we reviewed your chart and outlined testing and treatment needed foryour care. Reviewed poissble complications of diabetes including, loss of vision, kidney failure and increased risk of heart attacks and stroke. We made recommendations on how to control your blood sugars, and minimize your risk of these complications. We discussed your current barriers to a healthy living and importance of healthy diet and exercise. Lookd Resolved Encounters DateTypeDepartmentCare GntkKadrxlvqbsi92/13/2025Patient Outreach [facility] [address] [place] [address] Viviana Graves LPN 07/12/2025Patient Outreach [facility] [address] [place] [address] Viviana Graves LPN 07/12/2025Patient Outreach [facility] [address] [place] [address] Viviana Graves LPN 07/05/2025[facility] [address] [place] [address] Viviana Graves LPN 06/29/2025[facility]phone [facility] [address] [place] [address] Viviana Graves LPN 06/29/2025Patient Outreach [facility] [address] [place] [address] Viviana Graves LPN 06/28/2025 10:30 AM EDTOffice Visit [facility] [address] [facility] [address] [place] [address] Corinne Torres MD Metastatic adenocarcinoma to colorectal region (HCC) (Primary Dx); Elevated blood sugar; Paroxysmal atrial fibrillation (HCC); Emphysema, unspecified (HCC); Cigarette nicotine dependence with other nicotine-induced disorder; Apuniijec00/23/5270Zpbmjq59/22/4468Dptpbh27/16/2025[facility] [address] [place] [address] Viviana Graves LPN 5Clinisync Result Encounter NOM[facility] External Department Unsolicited Provider, Generic External Data 5Clinisync Result Encounter NOM[facility] External Department Unsolicited Provider, Generic External Data 5Abstract [facility] [address] [facility] [address] [place] [address] Corinne Torres MD 05/27/2025linisync Result Encounter NOMS External Department Unsolicited Provider, Generic External Data 05/25/2025 10:15 AM EDTOffice Visit [facility] [address] [place] [address] [address] [place] [address] Adonay Clemente MD Rectal cancer (HCC) (Primary Dx)05/25/20255578Fcgyng64/14/2025linisync Result Encounter NOMS External Department Unsolicited Provider, Generic External Data 05/17/2025Orders Only [facility] [address] [place] [address] [address] [place] [address] Adonay Clemente MD 05/16/2025bstract [facility] [address] [facility] [address] [place] [address] Corinne Torres MD 05/12/20250627Nygvfc02/05/2025 1:45 PM EDTOffice Visit [facility] [address] [place] [address] [address] [place] [address] Adonay Clemente MD Rectal cancer (HCC) (Primary Dx)05/10/20258489Lasbdc06/04/3823Pjvwdi96/30/2025Travel from Last 3 Months Family History Medical HistoryRelationNameCommentsLung cancerFatherCancerMotherRelationName StatusCommentsFatherDeceasedMotherDeceased Social History Tobacco UseTypesPacks/DayYears UsedDateSmoking Tobacco: Every DayCigarettes Smokeless Tobacco: Never Tobacco Cessation:Ready to Q uit: Not Asked; Counseling Given: Not Answered Alcohol UseStandard Drinks/WeekCommentsYes0 (1 standard drink = 0.6 oz pure alcohol)1 or 2 every couple riismT4494 Health LiteracyAnswerDate RecordedHow often do you need to have someone help you when you read instructions, pamphlets, or other written material from your doctor or pharmacy?Never 06/27/2025Humiliation, Afraid, Rape, and Kick questionnaireAnswerDate Recorded Within the last year, have you been afraid of your partner or ex-partner?No 06/27/2025Within the last year, have you been humiliated or emotionally abused in other ways by your partner or ex-partner?No06/27/2025Within the last year, have you been kicked, hit, slapped, or otherwise physically hurt by your partner or ex-partner?No06/27/2025Within the last year, have you been raped or forced to have any kind of sexual activity by your partner or ex-partner?No06/27/2025 Social Connection and Isolation PanelAnswerDate RecordedIn a typical week, how many times do you talk on the phone with family, friends, or neighbors?More than three times a week06/27/2025How often do you get together with friends or relatives?Three times a week06/27/2025How often do you attend scientologist or muslim services?1 to 4 times per year06/27/2025Do you belong to any clubs or organizations such as scientologist groups, unions, fraternal or athletic groups, or school groups?Yes06/27/2025How often do you attend meetings of the clubs or organizations you belong to?More than 4 times per year06/27/2025re you , , , , never , or living with a partner? 06/27/2025UDIT-CAnswerDate RecordedQ1: How often do you have a drink containing alcohol?Monthly or less06/27/2025Q2: How many drinks containing alcohol do you have on a typical day when you are drinking?3 or Q3: How often do you have six or more drinks on one occasion?Jmabgby4406/27/2025Overall Financial Resource Strain (CARDIA)AnswerDate RecordedHow hard is it for you to pay for the very basics like food, housing, medical care, and heating?Not very hard 06/27/2025PHQ-2AnswerDate RecordedPatient Health Questionnaire-2 Score0 01/04/2025[facility] [place] [facility] - Occupational Stress QuestionnaireAnswerDate RecordedDo you feel stress - tense, restless, nervous, or anxious, or unable to sleep at night because yourmind is troubled all the time - these days?Only a ypvuup5306/27/2025Exercise Vital SignAnswerDate Recorded On average, how many [...] EDTGender IdentityNot on fileSexual OrientationNot on file Last Filed Vital Signs Vital SignReadingTime TakenCommentsBlood Bofbiflz287/7809 10:19 AM EDT Tdwgi630106/28/2025 10:19 AM EDTTemperature--Respiratory Qjfn1386 3:04 PM EDTOxygen Hgaimrwpkg86%06/28/2025 10:19 AM EDTInhaled Oxygen Concentration-- Budyjh31 kg (108 lb)06/28/2025 10:19 AM VBNQsvsed533.7 cm (5' 8 )06/28/2025 10:19 AM EDTBody Mass Index16.42006/28/2025 10:19 AM EDT Plan of Treatment DateTypeDepartmentCare Team (Latest Contact Info)Nfohuuphthp43/15/2025 10:15 AM ESTOffice Visit [facility] [address] [facility] [address] [place] [address] Corinne Torres MD 112 [facility] [address] [place] [address] Health MaintenanceDue DateLast DoneCommentsMMR Vaccines (1 of 1 - Standard series)1959COVID-19 Vaccine (#1)1963DTaP/Tdap/Td Vaccines (1 - Tdap) 1965Diabetes: Retinopathy Yzrtbojwc10/12/1968Hepatitis A Vaccines (1 of 2 - Risk 2-dose series)1977Hepatitis B Vaccines (1 of 3 - Risk 3-dose series)2018Diabetes: Urine Protein Haqhkwfgy47Influenza Vaccine (#1)2025Pneumococcal Vaccine: 65+ Years (1 of 2 - PCV)09/07/2025 Postponed from 1977 (Patient Refused)Diabetes: Hemoglobin A1C09/27/2025 06/28/2025, 08/02/2024, 08/05/2023Medicare Annual Wellness (AWV)01/04/2026 01/04/2025, 2425IqdbxqjkiylMamscaooqwcm42/20/2024Colorectal Cancer ScreeningDiscontinuedCT ColonographyDiscontinuedFIT-DNADiscontinuedFIT DiscontinuedFOBTDiscontinuedHIB VaccinesAged OutNo longer eligible based on patient's age to complete this topicHPV VaccinesAged OutNo longer eligible based on patient's age to complete this topicIPV VaccinesAged OutNo longer eligible based on patient's age to complete this topicMeningococcal B VaccineAged OutNo longer eligible based on patient's age to complete this topicMeningococcal VaccineAged OutNo longer eligible based on patient's age to complete this topic Rotavirus VaccinesAged OutNo longer eligible based on patient's age to complete this topicSigmoidoscopyDiscontinued Procedures Procedure NamePriorityDate/TimeAssociated DiagnosisCommentsPOCT GLYCATED HEMOGLOBIN, QQRGMYxqgqtr82/23/2025 10:30 AM EDT Elevated blood sugar TISS PATH BX RUDROTVdjqgxr55/12/2025 12:50 PM EDT ECG 12-LEAD06/10/2025 12:32 PM EDT [facility] COMP METAB 2000 PNL JMEGFBzuctdo26/22/2025 2:41 PM EDT [facility] CBC W AUTO DIFF HUTWmwatox75/22/2025 2:41 PM EDT MRI RECTUM WO/W IVCON05/19/2025 7:33 PM EDT GENERAL HWZWYLARPYhrafkm84/12/2025 2:27 PM EDTHM YGCZXUOVAXENqpczav54/20/2024 9:22 AM ESTMICROALBUMIN / CREATININE URINE ENUINSgkddbp31/01/2023 8:18 AM EST Medicare annual wellness visit, initial Type 2 diabetes mellitus with diabetic neuropathy, without long-term current use of insulin (HCC) from Last 3 Months or Most Recently Relevant to Health Maintenance Results * POCT Glycated hemoglobin, total (06/28/2025 10:30 AM EDT)ComponentValueRef RangeTest MethodAnalysis TimePerformed AtPathologist SignatureHemoglobin A1C 5.1Specimen (Source)Anatomical Location / LateralityCollection Method / Volume Collection TimeReceived VqkbHytma27/23/2025 10:30 AM EDT Narrative Authorizing ProviderResult TypeResult StatusCorinne Torres MDPOINT OF CARE TEST ENTER/EDIT ORDERABLESFinal Result * TISS PATH BX REPORT (2025 12:50 PM EDT)ComponentValueRef RangeTest MethodAnalysis TimePerformed AtPathologist SignatureCCF CASE REPORTCCFComment: Surgical Pathology Report ? Case: [id number] ? Authorizing Provider: ??Teresa Tucker MD ?Collected: ? 2025 12:50 PM? Ordering Location: ? [facility] ?Received: ?2025 12:59 PM ? Operating Room ? Pathologist: ? Sergey Arenas, MD ? Intraop: ? Sergey Arenas, MD ? Specimens: ?? A) - Prostate, Resection, PROSTATE CAPSALE ? B) - Colon, Sigmoid, Resection, Sigmoid and Rectum ? C) - Colon, Resection, Distal Doughnut ? [facility] FINAL DIAGNOSISCCFComment: A. Prostate capsule, biopsy: - Benign fibromuscular tissue. B. Sigmoid colon and rectum, resection: - Residual invasive adenocarcinoma (see comment and synoptic report). - Metastatic adenocarcinoma involving two of nineteen lymph nodes (2/19). - Nine (9) hyperplastic polyps. C. Distal donut, excision: - Segment of rectum with no diagnostic abnormality. JEL 06/22/2025 at 1738 EDT [facility] DIAGNOSIS COMMENTA Movat stain performed on block B7 with appropriate controls fails to demonstrate evidence of extramural venous invasion.CCFBLOCK FOR ADDITIONAL BIOMARKERS/MOLECULAR AZBNHFPS4OSCEEI SYNOPTIC REPORTCCFComment: COLON AND RECTUM: Resection COLON AND RECTUM: RESECTION - All Specimens 8th Edition - Protocol posted: 03/24/2024 SPECIMEN ?? Procedure: ?Low anterior resection ?? Macroscopic Evaluation of Mesorectum: ?Complete TUMOR ?? Tumor Site: ?Rectum ? Rectal Tumor Location: ?Straddles anterior peritoneal reflection ?? Histologic Type: ?Adenocarcinoma ?? Histologic Grade: ?G2, moderately differentiated ?? Tumor Size: ?Cannot be determined: Scattered foci of microscopic tumor discontinuously involve a 3.1 cm area ?? Tumor Extent: ?Invades through muscularis propria into the pericolonic or perirectal tissue ?? Macroscopic Tumor Perforation: ?Not identified ?? Lymphatic and / or Vascular Invasion: ?Present ?? Perineural Invasion: ?Not identified ?? Tumor Budding Score: ?Cannot be determined: Not applicable (posttreatment) ?? Treatment Effect: ?Present, with residual cancer showing evident tumor regression, but more than single cells or rare small groups of cancer cells (partial response, score 2) MARGINS ?? Margin Status for Invasive Carcinoma: ?All margins negative for invasive carcinoma ? Distance from Invasive Carcinoma to Radial (Circumferential) Margin: ?11 mm ? Distance from Invasive Carcinoma to Distal Margin: ?44 mm ?? Margin Status for Non-Invasive Tumor: ?All margins negative for high- grade dysplasia / intramucosal carcinoma and low-grade dysplasia REGIONAL LYMPH NODES ?? Regional Lymph Node Status: ? : ?Tumor present in regional lymph node(s) ? Number of Lymph Nodes with Tumor: ?2 ? Number of Lymph Nodes Examined: ?19 ?? Tumor Deposits: ?Present ? Number of Tumor Deposits: ?1 pTNM CLASSIFICATION (AJCC 8th Edition) ?? Reporting of pT, pN, and (when applicable) pM categories is based on information available to the pathologist at the time the report is issued. As per the AJCC (Chapter 1, 8th Ed.) it is the managing physician's responsibility to establish the final pathologic stage based upon all pertinent information, including but potentially not limited to this pathology report. ?? Modified Classification: ?y ?? pT Category: ?pT3 ?? pN Category: ?pN1b [facility] GROSS DESCRIPTIONCCFComment: A. Prostate, Resection Received fresh for intraoperative frozen diagnosis designated prostate capsule is a segment of red extensively cauterized soft tissue measuring 0.7 x 0.4 x 0.3 cm. The specimen is totally submittedfor frozen then for permanent cassette FSA1. BF 2025 1:30 PM Gross examination performed at [facility], [address] [place] [address] B. Colon, Sigmoid, Resection Received in formalin designated sigmoid and rectum is a segment of bowel which measures 23.7 cm in length and averages 5 cm in circumference. The mesorectal envelope is grossly complete and photographs were taken. The proximal bowel margin is inked blue. The distal bowel margin is inked orange, and the soft tissue margins are inked black. Examination of the mucosal surface reveals a cabrales-pink puckering lesion measuring 3.1 x 1.1 cm, straddling the anterior peritoneal reflection, and located 3.6 cm from the distal margin and 18.5 cm from the proximal margin. The lesion comprises 80% of the bowel circumference. Sectioning of the lesion does not reveal definitive mass grossly. The wall in this location is thickened and fibrotic, measuring up to 1 cm in thickness and located 1 cm to the posterior circumferential (radial) margin and 11.2 cm from the mesenteric margin. Diffusely over the remainder of the mucosa are approximately 43 sessile polyps ranging from 0.1 x 0.1 x 0.1 cm to 0.5 x 0.4 x 0.2 cm in size. The polyps grossly only involve the mucosal surface. The remainder of the mucosal surface is cabrales-pink with normal mucosal ridges. The wall averages 0.4 cm in thickness. No diverticula are grossly appreciated. The serosal surface is cabrales-pink and smooth. Sectioning of the attached soft tissue reveals multiple cabrales-pink to white firm lymph nodes measuring up to 0.8 cm in greatest dimension. One possible lymph node is located 0.7 cm from the posterior circumferential (radial) margin. The lesion is totally submitted along with administrative representative sections as follows: B1 perpendicular proximal and distal margins, B2 perpendicular mesenteric margin, B3 lesion involving anterior bowel wall with perpendicular circumferential (radial) margin, B4-B5 lesion involving right lateral bowel wall with perpendicular circumferential (radial) margin, B6- B9 lesion involving posterior bowel wall with perpendicular circumferential (radial) margin, B10 remainder of lesion involving left lateral bowel wall with perpendicular circumferential (radial) margin, B11 two polyps at 6 cm from distal margin totally submitted, B12 three polyps totally submitted at 10 cm from distal margin, B13two polyps totally submitted at 15 cm from distal margin, B14 two polyps totally submitted at 20 cmfrom distal margin, B15 8 cm from distal margin, B16 one possible lymph node in relation to perpendi cular posterior circumferential (radial) margin, B17-B19 one possible lymph node bisected and totally submitted per cassette, B20 three possible lymph nodes totally submitted, B21 two possible lymph nodes totally submitted, B22-B31 colorectal soft tissue submitted for microscopic lymph node evaluation. BF 2025 3:00 PM Gross examination performed at [facility], [address], [place] [address] Additional sections of pericolonic fat are submitted in cassettes as B32-B51 for microscopic lymph node evaluation. WE June 24, 2025 9:48 AM Gross examination performed at [facility], [address] [place] [address] C. Colon, Resection Received in formalin designated distal donut is a donut that measures 0.8 cm in length and 1.5 cmin diameter. The mucosa is cabrales and granular. The specimen is entirely submitted in one cassette. WE June 20, 2025 11:02 AM Gross examination performed at [facility], [address] [place] [address] CCF INTRAOPERATIVE DIAGNOSISCCFComment: A. Prostate, Resection FSA1: Negative for malignancy. (Dr. Arenas) Intraoperative diagnosis performed at [facility], [address] [place] [address] CLIA # [id number] CCF CLINICAL HISTORYCCFComment: Pre-op diagnosis: Rectal cancer (HCC) [C20] CCF FINAL PERFORMING LABCCFComment: Diagnostic interpretation performed at: [facility], [address] [place] [address] ?? CLIA# [id number] Corn Lab Technician: Sergey Arenas MD AP DISCLAIMERCCFComment: Laboratory Developed Test (LDT) Disclaimer: Performance characteristics of immunohistochemical, immunofluorescent, and chromogenic in-situ hybridization tests have been determined by the performing laboratory within the [facility] Department of Pathology and Laboratory Medicine ([facility], [facility], [facility], [facility], [facility], [facility], or [facility]) in a manner consistent with CLIA requirements. One or more of these tests may not have been cleared or approved by the FDA. The [facility] Department of Pathology and Laboratory Medicineis regulated under CLIA as qualified to perform high-complexity testing. These tests are used for clinical purposes. These should not be regarded as investigational or for research. Positive and negative controls stain appropriately. Specimen (Source)Anatomical Location / LateralityCollection Method / Volume Collection TimeReceived Time2025 12:50 PM EDT06/24/2025 8:20 AM EDT Narrative CLINISYNC - 06/27/2025 5:38 PM EDT Specimen Type: TISSUE SPECIMEN Ordering Facility: [facility] ?Address: [address] [place] [address] Original Ordering Provider: TERESA TUCKER Authorizing ProviderResult TypeResult StatusGeneric External Data ProviderLAB BLOOD ORDERABLESFinal ResultPerforming OrganizationAddressCity/State/ZIP Code Phone Number [place] [place] [address] [place] [address] CC [address] [facility] [address] [place] [address] * ECG 12 lead (06/10/2025 12:32 PM EDT)Specimen (Source)Anatomical Location / LateralityCollection Method / VolumeCollection TimeReceived Time06/10/2025 12:32 PM EDT Narrative CCF - 06/11/2025 10:07 PM EDT Ventricular Rate : 78 BPM Atrial Rate ?: 78 ?BPM P-R Interval ? : 128 ? ms QRS Duration ? : 78 ?ms Q-T Interval ? : 394 ? ms QTC Calculation(Bazett) ?: 449 ? ms Calculated P Ovid ?: 68 ?degrees Calculated R Ovid ?: 53 ?degrees Calculated T Ovid ?: 69 ?degrees NORMAL SINUS RHYTHM NORMAL ECG Confirmed by LO BISWAS DO ([id number]) on 06/11/2025 10:07:53 PM NAME : BENTLEY GONZALEZ PID : [id number] : 1960 ?? Gender : Male Race : ORD : [id number] ? Procedure Date : Jun 10 2025 12:32:05 Edit Date : Jun 11 2025 22:07:58 ? Diagnosis: NORMAL SINUS RHYTHM NORMAL ECG ? Confirmed by LO BISWAS DO ([id number]) on 06/11/2025 10:07:53 PM ? Test Reason : PACC ? Location : [facility] : [facility] ? Overread By : LO BISWAS DO Edited By : LO BISWAS DO Referred By : TERESA TUCKER Acquired by : TMChrissy, Procedure Note Radiology, Radiologist, MD - 06/11/2025 Ventricular Rate : 78 BPM Atrial Rate : 78 BPM P-R Interval : 128 ms QRS Duration : 78 ms Q-T Interval : 394 ms QTC Calculation(Bazett) : 449 ms Calculated P Ovid : 68 degrees Calculated R Ovid : 53 degrees Calculated T Ovid : 69 degrees NORMAL SINUS RHYTHM NORMAL ECG Confirmed by LO BISWAS DO ([id number]) on 06/11/2025 10:07:53 PM NAME : BENTLEY GONZALEZ PID : [id number] : 1960 Gender : Male Race : ORD : [id number] Procedure Date : Jun 10 2025 12:32:05 Edit Date : Jun 11 2025 22:07:58 Diagnosis: NORMAL SINUS RHYTHM NORMAL ECG Confirmed by LO BISWAS DO ([id number]) on 06/11/2025 10:07:53 PM Test Reason : PACC Location : 545 : [facility] Overread By : LO BISWAS DO Edited By : LO BISWAS DO Referred By : TERESA TUCKER Acquired by : TMM, Authorizing ProviderResult TypeResult StatusGeneric External Data ProviderECG ORDERABLESFinal ResultPerforming OrganizationAddressCity/State/ZIP CodePhone Number CCF-CLINISYNC [facility] * (ABNORMAL) [facility] CBC W AUTO DIFF BLD (05/27/2025 2:41 PM EDT)ComponentValueRef RangeTest MethodAnalysis TimePerformed AtPathologist SignatureCCF WBC # BLD AUTO5.293.70 - 11.00 k/uLCCFCCF RBC # BLD AUTO3.81(L)4.20 - 6.00 m/uLCCFCCF HGB BLD-MCNC12.6(L)13.0 - 17.0 g/dLCCFCCF HCT VFR BLD AUTO37.9(L)39.0 - 51.0 % CCFCCF MCV RBC AUTO99.580.0 - 100.0 fLCCFCCF MCH RBC QN AUTO33.126.0 - 34.0 pg CCFCCF MCHC RBC AUTO-MCNC33.230.5 - 36.0 g/dLCCFCCF RDW RBC-RTO12.911.5 - 15.0 %CCFCCF PLATELET # BLD [id number] - 400 k/uLCCFCCF PMV BLD AUTO9.09.0 - 12.7 fLCCFCCF NEUTROPHILS/LEUK NFR BLD AUTO58.5%CCFCCF NEUTROPHILS # BLD AUTO3.10 1.45 - 7.50 k/uLCCFCCF LYMPHOCYTES/LEUK NFR BLD AUTO22.3%CCFCCF LYMPHOCYTES # BLD AUTO1.181.00 - 4.00 k/uLCCFCCF MONOCYTES/LEUK NFR BLD AUTO14.2%CCFCCF MONOCYTES # BLD AUTO0.75<0.87 k/uLCCFCCF EOSINOPHIL/LEUK NFR BLD AUTO4.2%CCF CCF EOSINOPHIL # BLD AUTO0.22<0.46 k/uLCCFCCF BASOPHILS/LEUK NFR BLD AUTO0.4% CCFCCF BASOPHILS # BLD AUTO<0.03<0.11 k/uLCCFIMM GRANULOCYTES/LEUK NFR BLD AUTO0.4%CCFIMM GRANULOCYTES # BLD AUTO<0.03<0.10 k/uLCCFCCF NRBC/100 WBC BLD-RTO0.0/100 WBCCCFCCF NRBC # BLD AUTO<0.01<0.01 k/uLCCFCCF DIFFERENTIAL METHOD BLDAutoCCFSpecimen (Source)Anatomical Location / LateralityCollection Method / VolumeCollection TimeReceived Time05/27/2025 2:41 PM EDT05/27/2025 2:46 PM EDT Narrative CLINISYNC - 05/27/2025 2:48 PM EDT Specimen Type: BLOOD SPECIMEN Ordering Facility: [facility] ?Address: [address] [place] [address] Original Ordering Provider: TERESA TUCKER Authorizing ProviderResult TypeResult StatusGeneric External Data Provider CLINISYNCFinal ResultPerforming OrganizationAddressCity/State/[facility] CodePhone Number CLINISYNC [facility] [address] [place] [phone] * (ABNORMAL) CCF COMP METAB 2000 PNL SERPL (05/27/2025 2:41 PM EDT)Component ValueRef RangeTest MethodAnalysis TimePerformed AtPathologist SignatureCCF PROT SERPL-MCNC6.46.3 - 8.0 g/dLCCFCCF ALBUMIN SERPL-MCNC3.93.9 - 4.9 g/dLCCF CCF CALCIUM SERPL-MCNC9.18.5 - 10.2 mg/dLCCFCCF BILIRUB SERPL-MCNC0.30.2 - 1.3 mg/dLCCFCCF ALP SERPL-TFEC46666 - 113 U/LCCFCCF AST SERPL-NXUC5204 - 40 U/L CCFCCF ALT SERPL-YPEV8297 - 54 U/LCCFCCF GLUCOSE SERPL-JBCP9123 - 99 mg/dLCCF Comment: The [place] Diabetes Association (ADA) provides guidance for cutoff values for fasting glucose andrandom glucose. The ADA defines fasting as no [...] Standards of Medical Care in Diabetes 2016, [place] Diabetes Association. Diabetes Care. 2016.39(Suppl 1). C[facility] BUN SERPL-OPJL935 - 24 mg/dLCCFCCF CREAT SERPL-MCNC0.66(L)0.73 - 1.22 mg/dL CCFCCF SODIUM SERPL-NICD719049 - 144 mmol/LCCFCCF POTASSIUM SERPL-SCNC3.93.7 - 5.1 mmol/LCCFCCF CHLORIDE SERPL-UZLG99237 - 107 mmol/LCCFCCF CO2 SERPL-QCIT0087 - 30 mmol/LCCFCCF ANION GAP SERPL-SCNC7(L)8 - 15 mmol/LCCFEGFRCR SERPLBLD CKD- EPI [id number]>=60 mL/min/1.73m???CCFComment:Estimated Glomerular Filtration Rate (eGFR) is calculated using the 2020 CKD-EPI creatinine equation. This equation utilizes serum creatinine, sex, and age as parameters. The creatinine assay has traceable calibration to isotope dilution-mass spectrometry. Refer to KDIGO guidelines for clinical interpretation. In patients with unstable renal function, e.g. those with acute kidney injury, the eGFRmay not accurately reflect actual GFR.Specimen (Source)Anatomical Location / LateralityCollection Method / VolumeCollection TimeReceived Time05/27/2025 2:41 PM EDT05/27/2025 2:46 PM EDT Narrative CLINISYNC - 05/27/2025 3:21 PM EDT Specimen Type: BLOOD SPECIMEN Ordering Facility: [facility] ?Address: [address] [place] [address] Original Ordering Provider: TERESA TUCKER Authorizing ProviderResult TypeResult StatusGeneric External Data Provider CLINISYNCFinal ResultPerforming OrganizationAddressCity/State/ZIP CodePhone Number CLINISYNC [facility] [address] [place] [address] * MRI RECTUM WO/W IVCON (05/19/2025 7:33 PM EDT)Anatomical RegionLaterality ModalityOtherSpecimen (Source)Anatomical Location / LateralityCollection Method / VolumeCollection TimeReceived Time05/19/2025 7:33 PM EDT Narrative 05/19/2025 7:55 PM EDT * * *Final Report* * * DATE OF EXAM: May 19 2025 ??7:33PM ?? QBM ?? 0754 ??- ??MRI RECTUM WO/W IVCON ??/ PROCEDURE REASON: Rectal cancer (HCC) ? * * * * Physician Interpretation * * * * RECTAL CANCER RESTAGING CLINICAL HISTORY: Rectal Cancer RESTAGING ? -Pretreatment Tumor Staging: T3dN+ ? -Rectal tumor histology: Adenocarcinoma ? -Prior chemotherapy or radiation: Yes ? -Other: N/A COMPARISON: Rectal MRI, 10/29/2024. Images from an outside MRI from 01/20/2025 are also available for review although with only minimal sequences present here. TECHNIQUE: -Magnet: 3T scanner. -Multiplanar MRI with multiple sequences before and after contrast. CONTRAST: IV: 5.1 ml of Elucirem Rectal: 60 ml of Surgilube RESULT: TREATED PRIMARY TUMOR CHARACTERISTICS (Compare to pre-treatment): -DWI (with associated low ADC) ? restricted diffusion and low ADC in tumor or tumor bed: ??Present, improved from prior. -MRI-T2W: ??Mixed dark T2/scar and intermediate signal. -T2 bright mucin (cannot distinguish between cellular and acellular mucin): Absent. -Description: Decrease size of the right lateral midrectal mass with some posttreatment fibrosis, although still with predominantly residual viable tumor. TREATED TUMOR LOCATION AND CHARACTERISTICS: ?? -Distance of the inferior margin of treated tumor to the anal verge: 7.2 cm (2:21) ?? -Distance of the inferior margin to the top of sphincter complex/anorectal junction: 5.7 cm (2:21) ?? -Relationship to anterior peritoneal reflection: Straddles (predominantly below) ?? -Craniocaudal length: 2.8 cm (2:16) ?? -Pre-treatment craniocaudal length: 4.7 cm ?? -Tumor location: Mid rectum (5-10 cm) ?? -Maximal wall thickness: 1.7 cm (12:15) ?? -Pre-treatment wall thickness: 2.6 cm (4:17 of the baseline MRI) INVASION OF ANAL SPHINCTER COMPLEX: Absent. ?? -Anal canal involvement: None. ?? -Comments: N/A T4 DISEASE INTERVAL CHANGE: N/A TUMOR DEPOSITS AND EXTRAMURAL VASCULAR INVASION (EMVI): ?? -Tumor deposits:(separate from metastatic lymph nodes): 1.6 x 1.2 cm superior rectal tumor deposit (12:60), previously 2.5 x 2.1 cm. ?? -EMVI: Yes, partial regression. MESORECTAL FASCIA (MRF): ?? -Shortest distance of extraluminal part of the tumor to MRF: Abuts (12:16) ?? -Tumor extension through the peritonealized portion of the rectum into peritoneal fat: Yes ?? -Is there a separate tumor deposit, LN or EMVI threatening (?1mm and ?2 mm) or invading (< 1 mm) the MRF? Yes ?? -Comments: The superior rectal tumor deposit described above abuts the posterior mesorectal fascia (2:18). POST-TREATMENT TUMOR REGRESSION: ?? -mrTRG: Grade 4 - Partial response LYMPH NODES: -Mesorectal/superior rectal lymph nodes and/or tumor deposits: N+ (any nodes ? 5 mm) -Index nodes: ?? -7 x 5 mm spiculated left mesorectal node (12:11), previously 8 x 7 mm. ?? -The posterior mesorectal node/tumor deposits reference previously (9 mm and 6 mm on the prior study) are essentially resolved. Other reference left mesorectal node (previously 8 mm) now measures 3 mm (12:18). -Suspicious extra mesorectal lymph nodes: None. OTHER STRUCTURES/ ORGANS INVOLVED: none OTHER FINDINGS: None The study was interpreted by Dr Mendez, a member of the rectal cancer multidisciplinary tumor board. IMPRESSION: Decrease in size of mid-rectal mass with some post-treatment fibrosis, although still with significant residual viable tumor. ??Persistent EMVI and abutment of the mesorectal fascia. Dominant superior rectal tumor deposit (which also abuts the mesorectal fascia posteriorly) has decreased in size. ??A single left mesorectal node is decreased in size but remains suspicious. ??Remainder of the nodes/tumor deposits no longer meet threshold. Since 10/29/2024, post treatment primary tumor assessment: ?? Incomplete response (likely residual tumor). mrTRG: Grade 4 - Partial response Suspicious Mesorectal lymph nodes: Yes Suspicious Extramesorectal lymph nodes: No Reception Specialist: RILEY ?? Transcribe Date/Time: May 19 2025 ??7:42P Dictated by : MELISA MENDEZ MD This examination was interpreted and the report reviewed and electronically signed by: MELISA MENDEZ MD on May 19 2025 ??7:53PM ??EST [id number]^ACN Procedure Note Radiology, Radiologist, - 05/19/2025 * * *Final Report* * * DATE OF EXAM: May 19 2025 7:33PM QBM 0754 - MRI RECTUM WO/W IVCON / PROCEDURE REASON: Rectal cancer (HCC) * * * * Physician Interpretation * * * * RECTAL CANCER RESTAGING CLINICAL HISTORY: Rectal Cancer RESTAGING -Pretreatment Tumor Staging: T3dN+ -Rectal tumor histology: Adenocarcinoma -Prior chemotherapy or radiation: Yes -Other: N/A COMPARISON: Rectal MRI, 10/29/2024. Images from an outside MRI from 01/20/2025 are also available for review although with only minimal sequences present here. TECHNIQUE: -Magnet: 3T scanner. -Multiplanar MRI with multiple sequences before and after contrast. CONTRAST: IV: 5.1 ml of Elucirem Rectal: 60 ml of Surgilube RESULT: TREATED PRIMARY TUMOR CHARACTERISTICS (Compare to pre-treatment): -DWI (with associated low ADC) ? restricted diffusion and low ADC in tumor or tumor bed: Present, improved from prior. -MRI-T2W: Mixed dark T2/scar and intermediate signal. -T2 bright mucin (cannot distinguish between cellular and acellular mucin): Absent. -Description: Decrease size of the right lateral midrectal mass with some posttreatment fibrosis, although still with predominantly residual viable tumor. TREATED TUMOR LOCATION AND CHARACTERISTICS: -Distance of the inferior margin of treated tumor to the anal verge: 7.2 cm (2:21) -Distance of the inferior margin to the top of sphincter complex/anorectal junction: 5.7 cm (2:21) -Relationship to anterior peritoneal reflection: Straddles (predominantly below) -Craniocaudal length: 2.8 cm (2:16) -Pre-treatment craniocaudal length: 4.7 cm -Tumor location: Mid rectum (5-10 cm) -Maximal wall thickness: 1.7 cm (12:15) -Pre-treatment wall thickness: 2.6 cm (4:17 of the baseline MRI) INVASION OF ANAL SPHINCTER COMPLEX: Absent. -Anal canal involvement: None. -Comments: N/A T4 DISEASE INTERVAL CHANGE: N/A TUMOR DEPOSITS AND EXTRAMURAL VASCULAR INVASION (EMVI): -Tumor deposits:(separate from metastatic lymph nodes): 1.6 x 1.2 cm superior rectal tumor deposit (12:60), previously 2.5 x 2.1 cm. -EMVI: Yes, partial regression. MESORECTAL FASCIA (MRF): -Shortest distance of extraluminal part of the tumor to MRF: Abuts (12:16) -Tumor extension through the peritonealized portion of the rectum into peritoneal fat: Yes -Is there a separate tumor deposit, LN or EMVI threatening (?1mm and ?2 mm) or invading (< 1 mm) the MRF? Yes -Comments: The superior rectal tumor deposit described above abuts the posterior mesorectal fascia (2:18). POST-TREATMENT TUMOR REGRESSION: -mrTRG: Grade 4 - Partial response LYMPH NODES: -Mesorectal/superior rectal lymph nodes and/or tumor deposits: N+ (any nodes ? 5 mm) -Index nodes: -7 x 5 mm spiculated left mesorectal node (12:11), previously 8 x 7mm. -The posterior mesorectal node/tumor deposits reference previously (9 mm and 6 mm on the prior study) are essentially resolved. Other reference left mesorectal node (previously 8 mm) now measures 3 mm (12:18). -Suspicious extra mesorectal lymph nodes: None. OTHER STRUCTURES/ ORGANS INVOLVED: none OTHER FINDINGS: None The study was interpreted by Dr Mendez, a member of the rectal cancer multidisciplinary tumor board. IMPRESSION: Decrease in size of mid-rectal mass with [...] nodes: Yes Suspicious Extramesorectal lymph nodes: No Reception Specialist: RILEY Transcribe Date/Time: May 19 2025 7:42P Dictated by : MELISA MENDEZ MD This examination was interpreted and the report reviewed and electronically signed by: MELISA MENDEZ MD on May 19 2025 7:53PM EST [id number]^SI^ACN Authorizing ProviderResult TypeResult StatusGeneric External Data Provider CLINISYNC IMAGINGFinal Result * GENERAL PATHOLOGY (05/17/2025 2:27 PM EDT) Narrative Authorizing ProviderResult TypeResult StatusMARIAMA RiceLINISYNCFinal Result * Hm Colonoscopy (09/24/2024 9:22 AM EST)Anatomical RegionLateralityModality Other Narrative Authorizing ProviderResult TypeResult StatusAdonay Cleaning MDHEALTH MAINTENANCEFinal Result * (ABNORMAL) Microalbumin / creatinine urine ratio (09/05/2023 8:18 AM EST) ComponentValueRef RangeTest MethodAnalysis TimePerformed AtPathologist SignatureCREATININE, RANDOM URINE14(L)20 - 320 mg/dLQUESTALBUMIN, URINE<0.2See Note: mg/dLQUESTComment: Reference Range: Reference Range Not established ALBUMIN/CREATININE RATIO, RANDOM URINENOTE<30 mcg/mg creatQUESTComment: NOTE: The urine albumin value is less than 0.2 mg/dL therefore we are unable to calculate excretion and/or creatinine ratio. The ADA defines abnormalities in albumin excretion as follows: Albuminuria Category ?Result (mcg/mg creatinine) Normal to Mildly increased <30 Moderately increased ? 30-299 Severely increased > OR = 300 The ADA recommends that at least two of three specimens collected within a 3-6 month period be abnormal before considering a patient to be within a diagnostic category. Specimen (Source)Anatomical Location / LateralityCollection Method / Volume Collection TimeReceived TimeUrineUrine specimen obtained by clean catch procedure / Wiwruzt2209/05/2023 8:18 AM EST09/05/2023 4:13 PM EST Narrative [facility] - 09/08/2023 11:17 AM EST FASTING:YES FASTING: YES Resulting Agency Comment Performing Organization Information ?Site ID: QPT ?Name: [facility] ?Address: [address] [place] [address], [address] [place] [phone] ?Director: Robles Chase MD Authorizing ProviderResult TypeResult StatusCorinne Torres MDLAB URINE ORDERABLES Final ResultPerforming OrganizationAddressCity/State/ZIP CodePhone Number [facility] from Last 3 Months or Most Recently Relevant to Health Maintenance Insurance [address] [place] [address] Care Teams Team MemberRelationshipSpecialtyStart DateEnd Date Corinne Torres MD [address] [facility] [address] [place] [address] PCP - GeneralFamily Gpdrqtdv64/31/23 Corinne Torres MD [address] [address] CARLOS A Ybarra MA09/05/23 Viviana Graves LPN [address] [address] 07/18/25
--- OUTSIDE RECORDS SUMMARY | 2025-08-04 00:42 | XMS_ITS | Encounter Summary ---
Author Organization [facility] Address [address] [place] [address] Care Team Providers Care Insole Tack Puller Hand Name Role Phone Corinne Torres MD Primary Care Provider [phone] Corinne Torres MD Unavailable Viviana Graves LPN Unavailable Encounter Details DateTypeDepartmentCare Team (Latest Contact Info)Ivbdferxxgd40/22/2025linisync Result Encounter [facility] External Department Unsolicited Provider, Generic External Data Social History Tobacco UseTypesPacks/DayYears UsedDateSmoking Tobacco: Every DayCigarettes Smokeless Tobacco: NeverAlcohol UseStandard Drinks/WeekCommentsYes0 (1 standard drink = 0.6 oz pure alcohol)1 or 2 every couple [id number] Health LiteracyAnswer Date RecordedHow often do you [...] times a week06/27/2025How often do you attend presybeterian or shinto services?1 to 4 times per year06/27/2025Do you belong to any clubs or organizations such as presybeterian groups, unions, fraternal or athletic groups, or school groups?Yes06/27/2025How often do you attend meetings of the clubs or organizations you belong to?More than 4 times per year06/27/2025 Are you , , , , never , or living with a partner?Zzscqbi5706/27/2025UDIT-CAnswerDate RecordedQ1: How often do you have a drink containing alcohol?Monthly or less06/27/2025Q2: How many drinks containing alcohol do you have on a typical day when you are drinking?3 or Q3: How often do you have six or more drinks on one occasion?Nmqlieb4306/27/2025 Overall Financial Resource Strain (CARDIA)AnswerDate RecordedHow hard is it for you to pay for the very basics like food, housing, medical care, and heating?Not very hard06/27/2025PHQ-2AnswerDate RecordedPatient Health Questionnaire-2 Score0 01/04/2025[facility] - Occupational Stress QuestionnaireAnswerDate RecordedDo you feel stress - tense, restless, nervous, or anxious, or unable to sleep at night because yourmind is troubled all the time - these days?Only a rlounh9806/27/2025Exercise Vital SignAnswerDate Recorded On average, how many [...] were you homeless or living in a [facility] (including now)?No06/27/2025Sex and Gender InformationValueDate RecordedSex Assigned at BirthNot on fileLegal SexMale 12/18/2022 6:57 PM EDTGender IdentityNot on fileSexual OrientationNot on file documented as of this encounter Functional Status * AUDIT-C ScoreAnswerDate of YpcguyzvgvFgiaex758/22/2025 6:03 PM EDNeftali, Generic * Q1: How [...] or more drinks on one occasion?AnswerDate of KffmihldihYaqxbsBebwocj51/22/2025 6:03 PM EDNeftali, Generic * Over the past 2 weeks, how often have you been bothered by any of the following problems?QuestionAnswerDate of AssessmentAuthorLittle interest or pleasure in doing thingsNot at all01/04/2025 2:00 PM EDTVoclifton, Isidra, JUNIOR ENGINEER Feeling down, depressed, or hopelessNot at all01/04/2025 2:00 PM EDTIsidra Billingsley LPNPatient Health Questionnaire-2 Newlh276 2:00 PM Isidra Taylor LPN * QuestionAnswerDate of AssessmentAuthorTrouble falling or staying asleep, or sleeping too muchNot at all01/04/2025 2:00 PM EDTVoIsidra lazo LPNFeeling tired or having little energyNot at all01/04/2025 2:00 PM EDTIsidra Billingsley LPNPoor appetite or overeatingNot at all01/04/2025 2:00 PM EDTIsidra Billingsley LPNFeeling bad about yourself - or that [...] 2:00 PM Isidra Taylor LPNPatient Health Questionnaire-9 Phwod029 2:00 PM Isidra Taylor LPN documented as of this encounter Plan of Treatment DateTypeDepartmentCare Team (Latest Contact Info)Kadwnairanu64/15/2025 10:15 AM ESTOffice Visit [facility] [place] [address] [facility] [address] [place] [id number] Corinne Torres MD [address] [facility] [address] [place] [address] documented as of this encounter Procedures Procedure NamePriorityDate/TimeAssociated DiagnosisCommentsCT CHEST W IV ISEQRCOE59/ 9:01 AM EST documented in this encounter Results * CT chest w IV contrast (10/27/2024 9:01 AM EST)Anatomical RegionLaterality ModalityBody, ChestComputed TomographySpecimen (Source)Anatomical Location / LateralityCollection Method / VolumeCollection TimeReceived Time10/27/2024 9:01 AM EST Narrative 10/27/2024 11:05 AM EST * * *Final Report* * * DATE OF EXAM: Oct 27 2024 ??9:01AM ?? [facility] ?? 0539 ??- ??CT CHEST W IVCON ??/ PROCEDURE REASON: Rectal mass ? * * * * Physician Interpretation * * * * RESULT: EXAMINATION: ??CHEST CT WITH CONTRAST CLINICAL HISTORY: Rectal mass Technique: ??Spiral CT acquisition of the chest from the thoracic inlet to the upper abdomen following IV contrast. MQ: ??CTCWR_5 Contrast: ??100 mL Omnipaque [address] Dose-Length Product: ??405 mGy*cm CT Dose Reduction Employed: Automated exposure control (AEC) Comparison: ??No available comparisons. RESULT: Lines, tubes, and devices: ??None. Lung parenchyma and airways: Trachea and central airways are patent. ?? Biapical pleuroparenchymal scarring. ??Mild centrilobular and paraseptal emphysema. Scattered calcified granulomas. 2 mm nodule left upper lobe (image 71). ??4 mm nodule left lower lobe (image 144) Pleural space: ??No pleural effusion or pneumothorax. Lower neck, lymph nodes, and mediastinum: ??No axillary, supraclavicular, mediastinal or hilar lymphadenopathy by CT size criteria. Heart, pericardium, and thoracic vessels: ??The heart is normal in size. ?? No pericardial effusion. The thoracic aorta and main pulmonary artery are normal in caliber. Atherosclerotic calcifications of the thoracic aorta and coronary arteries. Bones/Soft Tissues: No aggressive osseous lesions. Upper abdomen: ??Dedicated CT imaging of the abdomen and pelvis was performed concurrently and is dictated separately. Parachute Panel Joiner (topogram) images: Unremarkable. IMPRESSION: Few scattered pulmonary nodules measuring up to 4 mm. Continued follow-up is recommended. Transcribe Date/Time: Oct 27 2024 10:56A Dictated by: WILLA GILLESPIE MD This examination was interpreted and the report reviewed and electronically signed by: WILLA GILLESPIE MD on Oct 27 2024 11:03AM ??EST Thank you for allowing us to participate in the care of your patient. Should there be any questions regarding this interpretation, please call [phone]. If you are unable to reach us at the number above, please feel free to contact [facility] at [phone]. [id number]^AGFA_IDC^SI^ACN Procedure Note Radiology, Radiologist, - 10/27/2024 * * *Final Report* * * DATE OF EXAM: Oct 27 2024 9:01AM [facility] 0539 - CT CHEST W [...] was performed concurrently and is dictated separately. Parachute Panel Joiner (topogram) images: Unremarkable. IMPRESSION: Few scattered pulmonary [...] any questions regarding this interpretation, please call [phone]. If you are unable to reach us at the number above, please feel free to contact [facility] at [phone]. [id number]^AGFA_IDC^SI^ACN Authorizing ProviderResult TypeResult StatusGeneric External Data ProviderIMG CT PROCEDURESFinal Result documented in this encounter Visit Diagnoses Not on filedocumented in this encounter Care Teams Team MemberRelationshipSpecialtyStart DateEnd Date Corinne Torres MD [address] [address] PCP - GeneralFamily Aigxkram53/31/23 Corinne Torres MD [address] [facility] [address] [place] [address] PCP - Amada BLACK09/05/23 Viviana Graves LPN [address] [facility] [address] [place] [address] 07/18/25documented as of this encounter
--- OUTSIDE RECORDS SUMMARY | 2025-08-04 00:42 | XMS_ITS | Encounter Summary ---
Author Organization [facility] Address [address] [place] [address] Care Team Providers Care Automotive Lot Attendant Name Role Phone Corinne Torres MD Unavailable [phone] Adonay Clemente Unavailable [phone] Sandhya KimW Unavailable Unavailable Corinne Torres MD Primary Care Provider + [phone] Unavailable [phone] Mariola Ballard RN Unavailable [phone] Sancho Sánchez MD Unavailable [phone] Source Comments In the event this information is protected by the Federal Confidentiality of Alcohol and Drug AbusePatient Records regulations: The Federal rules restrict any use of the information to criminally investigate or prosecute any alcohol or drug abuse patient.[facility] Reason for Visit * ReasonCommentsPreparations For Surgery Encounter Details DateTypeDepartmentCare Team (Latest Contact Info)Nhdojstndoc86/23/2025Education Colorectal Surgery [address] [place] [address] Mily Lynch RN Preparations For Surgery Social History Tobacco UseTypesPacks/DayYears UsedDateSmoking Tobacco: Every XzlQybgyrdczg454.8 Started: 1972Smokeless Tobacco: NeverAlcohol UseStandard Drinks/WeekCommentsYes0 (1 standard drink = 0.6 oz pure alcohol)very seldomPHQ-2AnswerDate RecordedPHQ-2 yyouk773UDIT-CAnswerDate RecordedQ1: How often do you have a drink containing alcohol?Monthly or less06/10/2025Q2: How many drinks containing alcohol do you have on a typical day when you are drinking?3 or Q3: How often do you have six or more drinks on one occasion?Less than monthly 06/10/2025Hunger Vital SignAnswerDate RecordedWithin the past 12 months, you worried that your food would run out before you got the money to buymore.Never true06/20/2025Within the past 12 months, the food you bought just didn't last and you didn't have money to get more.Never true06/20/2025PRAPARE - TransportationAnswerDate RecordedIn the past 12 months, has lack of transportation kept you from medical appointments or from getting medications?No 06/20/2025In the past 12 months, has lack of transportation kept you from meetings, work, or from getting things needed for daily living?No06/20/2025 Housing Stability Vital SignAnswerDate RecordedIn the last 12 months, was there a time when you were not able to pay the mortgage or rent on time?No06/20/2025 Number of Times Moved in the Last YearNot on file06/20/2025t any time in the past 12 months, were you homeless or living in a [place] [facility] (including now)?No 06/20/2025HC UtilitiesAnswerDate RecordedIn the past 12 months has the electric, gas, oil, or water company threatened to shut off services in your home?No06/20/2025rea Deprivation IndexAnswerDate RecordedNational Score (1- 100), lower number is lower btgy612210/07/2024State Score (1-10), lower number is lower iezt979Data from: https://www.[facility]/. Last address used for [address] [address]/07/2024Sex and Gender InformationValueDate RecordedSex Assigned at BirthNot on fileLegal WcmDrkt74/21/2024 4:26 PM EST Gender IdentityNot on fileSexual OrientationNot on filedocumented as of this encounter Progress Notes * Mily Lynch RN - 07/28/2025 1:33 PM EDT AMBULATORY PATIENT EDUCATION NOTE SURGICAL PREPARATION: Closure Ileostomy -13027 + Flex Sig SURGERY DATE: 09/14/2025 DIAGNOSIS: attention to ileostomy, history of rectal cancer READINESS TO LEARN COGNITIVE ABILITY: Alert and oriented MOTIVATION TO LEARN: Eager FAMILY SUPPORT: High - Very involved in pt care PHYSICAL LIMITATIONS AFFECTING LEARNING: None METHOD OF INSTRUCTION: Verbal and Written instruction - handouts provided in blue folder GGE TEST: scheduled for 08/[address] [facility] SUPPLEMENTAL MATERIAL: - Location of surgery/ date - patient aware date is tentative and subject to change - PACC appointment needed with in 30 days of surgery - Bowel preparations prior to surgery: *NPO after midnight *May have sips of water up until 3 hrs of arrival time for surgery - Antimicrobial shower use night before WOUND CARE - Post operative wound care expectations reviewed. Discussed healing DIET- handouts provided on diet post op: -Post op diet following colorectal surgery = reviewed food choices and avoiding dehydration or constipation. Handout provided to patient. Patient (and Family member- ) acknowledges and understands. -They have contact phone number for further concerns and for post operative questions. -Staff Message sent to OR corporate scheduler with procedure/time/date for patient. TIME SPENT: 15 min Electronically Signed By: ADELA Diaz, RN DDSI Specialty Veterinary Inspector documented in this encounter Plan of Treatment DateTypeDepartmentCare Team (Latest Contact Info)Qmyngpmkwqu94/30/2025 9:00 AM EDTAppointment [facility] Rad[facility] Gastrointestinal [address] [place] [address] GGE110/31/2024 8:20 AM ESTPAT Pre Anesthesia [address] [place] [address] 2, Pacc [address] [place] [address] DOS 09/14/2512 7:30 AM ESTHospital Encounter [facility] Operating Room [address] [place] [address] [place] [address] [place] [address] Attention to ileostomy (HCC) [Z43.2]09/14/2025 7:30 AM EST - 09/14/2025 10:55 AM ESTSurgery [facility] Operating Room [address] [place] [address] [place] [address] [place] [address] CLOSURE PJNXIFKTI02/05/2026 9:45 AM ESTAppointment Radiology Pet CT [address] [place] [address] CT cap11/17/2025 9:40 AM ESTVisit (SP) Office Hematology/Oncology [address] [place] [address] [place] [address] Lam Patel MD [address] [place] [address] CT results PAYTON from ReddyNamePriorityAssociated DiagnosesDate/TimeCLOSURE ILEOSTOMY Attention to ileostomy (HCC) 09/14/2025 7:30 AM ESTSIGMOIDOSCOPY FLEXIBLE Attention to ileostomy (HCC) 09/14/2025 7:30 AM ESTdocumented as of this encounter Visit Diagnoses Not on filedocumented in this encounter Care Teams Team MemberRelationshipSpecialtyStart DateEnd Date Corinne Torres MD [address] [address] PCP - GeneralFamily Medicine10/27/24 Corinne Torres MD [address] [facility] [address] [place] [address] Family Snybjbgv74/21/24 Adonay Clemente [address] [place] [address] ReferringGeneral Frfyuyd01/27/24 Sandhya Kim LSW Social Worker10/26/[address] [place] [address] [place] [address] Registered DietitianNutrition10/27/24 Mariola Ballard, RN [address] [place] [address] [place] [address] Specialty Care CoordinatorHematology/Oncology11/05/24 Sancho Sánchez MD [address] [place] [address] [place] [address] PhysicianHematology/Oncology11/05/24documented as of this encounter
--- OUTSIDE RECORDS SUMMARY | 2025-08-04 00:42 | XMS_ITS | Clinical Summary ---
Author Organization [facility] [employer] [facility] tem Address [id number] [address] [place] [address] Care Team Providers Care Home Care Chaplain Name Role Phone Corinne Torres MD Primary Care Provider [phone] Allergies No known active allergies Medications MedicationSigDispense QuantityRefillsLast FilledStart DateEnd DateStatus apixaban (ELIQUIS) 2.5 mg tablet Take by mouth in the morning and before bedtime.Active acidophilus-pectin, citrus 25 million cell -100 mg tablet Take 1 tablet by mouth daily with breakfast.Active famotidine (PEPCID) 20 mg tablet Take 1 tablet (20 mg total) by mouth in the morning and 1 tablet (20 mg total) before bedtime. 20 tablet 07/09/2025tive Encounters DateTypeDepartmentCare JnpoNsvckfylwwd60/04/2025 7:45 PM EDT - 07/09/2025 10:41 PM EDTEmergency [facility] [address] [place] [address] Ramos Christopher DO Generalized abdominal pain (Primary Dx) Discharge Disposition: Home07/09/2025Travelfrom Last 3 Months Social History Tobacco UseTypesPacks/DayYears UsedDateSmoking Tobacco: Every DayCigarettes Tobacco Cessation:Ready to Q uit: Not Asked; Counseling Given: Not Answered Alcohol UseStandard Drinks/WeekCommentsNever0 (1 standard drink = 0.6 oz pure alcohol)ChildcareAnswerDate HcxpptmtBcdzkqbesRbwqbbm12/12/2019EmploymentAnswer Date TvrgfhaoRfzigikhmsQgilfqn23/12/2019Sex and Gender InformationValueDate RecordedSex Assigned at BirthNot on fileLegal GqaVwlw5005/11/2015 11:25 AM EDT Gender IdentityNot on fileSexual OrientationNot on file Last Filed Vital Signs Vital SignReadingTime TakenCommentsBlood Bhlyagsr385/8207/09/2025 9:15 PM EDT Adgnx4523/04/2025 10:30 PM JZNRbhecdyevda22.8 ??C (98.2 ??F)07/09/2025 8:45 PM EDTRespiratory Fkpw4258 10:30 PM EDTOxygen Ffpvyjoxto11%07/09/2025 10:30 PM EDTInhaled Oxygen Concentration--Rvmopb28.9 kg (110 lb)07/09/2025 7:47 PM EDT Klkfmy218.7 cm (5' 8 )07/09/2025 7:47 PM EDTBody Mass Index16.7307/09/2025 7:47 PM EDT Plan of Treatment Health MaintenanceDue DateLast DoneCommentsTobacco Pmahghxfae1958 Depression Ksuvwrdke78/12/1970Tobacco Wqlufbkie61/12/1970Adult BMI Follow Up Plan1976DTaP,Tdap and Td Vaccines (1 - Tdap)1977Zoster (Shingles) Vaccine (1 of 2)2008bdominal Aortic Aneurysm (AAA) Iprdha1006/17/2023Fall Risk Bnarlgils97/12/2023OVID-19 Vaccine ( - season)2025 12/15/2020Influenza Ripdeqw0206/06/2025dult BMI Kpkoexyze87 Medical Devices Not on file Procedures Procedure NamePriorityDate/TimeAssociated DiagnosisCommentsER EXTRA URINE MARBLE STAT1 10:17 PM EDT ER EXTRA URINE ZYIXFRCOSQB00/04/2025 10:17 PM EDT ER EXTRA ROTLAUDTQ70/04/2025 10:17 PM EDT POCT NURSING URINE MACROSCOPIC WXNqfdxui58/04/2025 9:18 PM EDT TROP I, HIGH SENSITIVITY 1 HRHQNAMV41/04/2025 9:03 PM EDT LACTATE W/ DDOEGYLUUI94/04/2025 9:[address] ABDOMEN AND PELVIS W ZPJGOYZB96/04/2025 8:41 PM EDT XR CHEST 2 OSTGXMU71/04/2025 8:41 PM EDT EXTRA TUBES LAVENDER ADFFrrvhdn20/04/2025 7:54 PM EDT EXTRA TUBES PST TMNTgulhrs49/04/2025 7:54 PM EDT EXTRA TUBES BLUE PUZVxzxinu67/04/2025 7:54 PM EDT TROPONIN I, HIGH SENSITIVITY 0 HOURAdd-On07/09/2025 7:54 PM EDT LIPASESTAT Add-on07/09/2025 7:54 PM EDT TROPONIN I, HIGH SENSITIVITY 0 HOURAdd-On07/09/2025 7:54 PM EDT COMPREHENSIVE METABOLIC PANELSTAT Add-on07/09/2025 7:54 PM EDT CBC WITH AUTO DIFFERENTIALSTAT Add-on07/09/2025 7:54 PM EDT EXTRA TCZDTMxoxdzi90/04/2025 7:54 PM EDT ECG 12-WWZFXTPH07/04/2025 7:47 PM EDTfrom Last 3 Months Results * Extra Urine Angwin (07/09/2025 10:17 PM EDT)ComponentValueRef RangeTest Method Analysis TimePerformed AtPathologist SignatureExtra TubeAuto Resulted 07/10/2025 12:02 AM EDTPROMEDO'Connor Hospital (Source) Anatomical Location / LateralityCollection Method / VolumeCollection Time Received TimeUrineUrine specimen collection, clean catch / UnknownCollection / Pclkidn4907/09/2025 10:17 PM EDT1 10:18 PM EDT Narrative Authorizing ProviderResult TypeResult StatusJecorrine Thurmanell MOVEMENT ASSEMBLY FINAL INSPECTOR-CNPURINE ORDERABLESFinal ResultPerforming OrganizationAddressCity/State/ZIP CodePhone Number [address] [place] [address], [place] * Extra Urine Culture (07/09/2025 10:17 PM EDT)ComponentValueRef RangeTest MethodAnalysis TimePerformed AtPathologist SignatureExtra TubeAuto Resulted 07/10/2025 12:02 AM [facility] (Source) Anatomical Location / LateralityCollection Method / VolumeCollection Time Received TimeUrineUrine specimen collection, clean catch / UnknownCollection / Vvvijkg3807/09/2025 10:17 PM EDT1 10:18 PM EDT Narrative Authorizing ProviderResult TypeResult StatusJesschristine Thurmanell MOVEMENT ASSEMBLY FINAL INSPECTOR-CNPURINE ORDERABLESFinal ResultPerforming OrganizationAddressCity/State/ZIP CodePhone Number [address] [place] [address], [place] * Extra Urine (07/09/2025 10:17 PM EDT)ComponentValueRef RangeTest Method Analysis TimePerformed AtPathologist SignatureExtra TubeAuto Resulted 07/10/2025 12:02 AM [facility] (Source) Anatomical Location / LateralityCollection Method / VolumeCollection Time Received TimeUrineUrine specimen collection, clean catch / UnknownCollection / Btcvaxu6307/09/2025 10:17 PM EDT1 10:18 PM EDT Narrative Authorizing ProviderResult TypeResult StatusJessica N Jessi MOVEMENT ASSEMBLY FINAL INSPECTOR-CNPURINE ORDERABLESFinal ResultPerforming OrganizationAddressty/State/ZIP CodePhone Number [address] [place] [address], [place] * POCT Nursing Urine Macroscopic UA (07/09/2025 9:18 PM EDT)ComponentValueRef RangeTest MethodAnalysis TimePerformed AtPathologist SignaturePOR[facility] Urine Specific Gravity1.0101.010, 1.015, 1.020, 1.3788507/09/2025 9:20 PM [facility] Urine Leukocyte EsteraseNegativeNegative 07/09/2025 9:20 PM [facility] Urine Nitrite WntcmnhkGqphdijd91/04/2025 9:20 PM [facility] Urine pH7.55.0, 6.0, 6.5, 7.0, 7.5, 8.0, 8.5, 5.510 9:20 PM EDT [facility] Urine PsgdgvdOauvyugaUctdsdsh44/04/2025 9:20 PM [facility] Urine GlucoseNegative Mkcmjcaf80/04/2025 9:20 PM [facility] Urine CanqmbdBgcvexksRfkkcgch09/04/2025 9:20 PM [facility] Urine Urobilinogen0.2 E.U./dL07/09/2025 9:20 PM [facility] Urine QmkwzupmmZczfoqiqRyejwmdf37/04/2025 9:20 PM [facility] Urine Blood/HGBNegativeNegative 07/09/2025 9:20 PM [facility] (Source) Anatomical Location / LateralityCollection Method / VolumeCollection Time Received VjrsOixce41/04/2025 9:18 PM EDT1 9:20 PM EDT Narrative Authorizing ProviderResult TypeResult StatusMaxnorberto Christopher DOPOINT OF CARE TEST ORDERABLESFinal ResultPerforming OrganizationAddressCity/State/ZIP Code Phone Number [facility] [address] [place] [address], * Troponin I, High Sensitivity 1 Hour (07/09/2025 9:03 PM EDT)ComponentValueRef RangeTest MethodAnalysis TimePerformed AtPathologist SignatureTROPONIN I, HIGH SENSITIVITY<2<21 ng/L1 9:37 PM EDRIVERSIDE [facility] Specimen (Source)Anatomical Location / LateralityCollection Method / Volume Collection TimeReceived TimeBloodVenous blood / UnknownVenipuncture / Unknown 07/09/2025 9:03 PM EDT1 9:05 PM EDT Narrative Authorizing ProviderResult TypeResult StatusRamos OTERO BLOOD ORDERABLESFinal ResultPerforming OrganizationAddressCity/State/ZIP CodePhone Number [address] [place] [address], [place] * Lactate w/ Reflex (07/09/2025 9:03 PM EDT)ComponentValueRef RangeTest Method Analysis TimePerformed AtPathologist SignatureLACTATE W/REFLEX0.90.4 - 2.0 mmol/L1 9:27 PM EDST. MARY'S MEDICAL CENTERpecimen (Source)Anatomical Location / LateralityCollection Method / VolumeCollection TimeReceived TimeBloodVenous blood / UnknownVenipuncture / Enycxrx7607/09/2025 9:03 PM EDT1 9:05 PM EDT Narrative [facility] - 07/09/2025 9:27 PM EDT Result did not trigger repeat Lactate, re-order if needed. Authorizing ProviderResult TypeResult StatusPaige Bowen MOVEMENT ASSEMBLY FINAL INSPECTOR-CNPLAB BLOOD ORDERABLESFinal ResultPerforming OrganizationAddPhysicians Care Surgical Hospitalty/State/ZIP CodePhone Number [address] [place] [address], [place] * CT abdomen and pelvis with contrast (07/09/2025 8:41 PM EDT)Anatomical Region LateralityModalityBody, Abdomen, Body CoveraN/AComputed TomographySpecimen (Source)Anatomical Location / LateralityCollection Method / VolumeCollection TimeReceived Time07/09/2025 8:51 PM EDT Narrative 07/09/2025 9:16 PM EDT CLINICAL INFORMATION: 65 years Male with abdominal pain, rectal cancer, new colostomy. Procedure: CT abdomen and pelvis with IV contrast. ?? All CT scans at this facility use dose modulation, iterative reconstruction, and/or weight based dosing when appropriate to reduce radiation dose to as low as reasonably achievable. COMPARISON: None. FINDINGS: LOWER CHEST: The lung bases are clear. ??No pleural effusion. HEPATOBILIARY: Liver morphology within normal limits. Subcentimeter hypoattenuating focus at the border of segments 8 and 4A (series 2 image 15). Contracted gallbladder. ??No biliary dilation. PANCREAS: Morphology and enhancement within normal limits. ?? SPLEEN: Within normal limits. ADRENAL GLANDS: Within normal limits. KIDNEYS, URETERS, AND BLADDER: Kidney size, morphology, and enhancement are within normal limits. ??No suspicious renal lesions. Simple cyst left kidney which requires no imaging follow-up. ??No calculi or collecting system dilation. ??Urinary bladder is within normal limits. GI TRACT AND PERITONEUM: Left hemicolectomy with Chavez pouch and right abdominal colostomy. . Thesmall and large bowel are normal in caliber. ??No pneumoperitoneum. Small presacral rim-enhancing fluid collection measuring 2.2 x 1.8 x 0.9 cm. VASCULATURE: The abdominal aorta is nonaneurysmal. ??Visceral arteries are patent. ??The portal, superior mesenteric, and splenic vein are patent. LYMPH NODES: Not enlarged. REPRODUCTIVE ORGANS: Within normal limits. MSK/SOFT TISSUES: Vertebral body heights are intact. No significant degenerative findings. Small amount of abdominal wall subcutaneous emphysema bilaterally without inflammatory change.. IMPRESSION: * ??Rim-enhancing presacral fluid collection measuring 2.2 cm. This may represent post operative collection or abscess. Clinical correlation recommended. * ??Postsurgical changes, as detailed. Bilateral abdominal wall subcutaneous emphysema. No pneumoperitoneum. Correlate with recent surgery. * ??Subcentimeter hypoattenuating liver lesion. While this likely represents a benign entity such as cyst or hemangioma, given history of rectal cancer metastasis is not excluded. Recommend clinical correlation and appropriate follow-up imaging, as indicated. Approved by Resident: Nelson Doshi, DO ??on 07/09/2025 8:51 PM IJeremy MD have personally reviewed the image(s) and agree with and/or edited the report Finalized by Jeremy Kemp MD on 07/09/2025 9:16 PM Procedure Note Jeremy Kemp MD - 07/09/2025 CLINICAL INFORMATION: 65 years Male with abdominal pain, rectal cancer,new colostomy. Procedure: CT abdomen and pelvis with IV contrast. All CT scans at this facility use dose modulation, iterativereconstruction, and/or weight based dosing when appropriate to reduceradiation dose to as low as reasonably achievable. COMPARISON: None. FINDINGS: LOWER CHEST: The lung bases are clear. No pleural effusion. HEPATOBILIARY: Liver morphology within normal limits. Subcentimeter hypoattenuating focus at the border of segments 8 and 4A (series 2 image15). Contracted gallbladder. No biliary dilation. PANCREAS: Morphology and enhancement within normal limits. SPLEEN: Within normal limits. ADRENAL GLANDS: Within normal limits. KIDNEYS, URETERS, AND BLADDER: Kidney size, morphology, and enhancementare within normal limits. No suspicious renal lesions. Simple cyst leftkidney which requires no imaging follow-up. No calculi or collectingsystem dilation. Urinary bladder is within normal limits. GI TRACT AND PERITONEUM: Left hemicolectomy with Chavez pouch and right abdominal colostomy. . The small and large bowel are normal in caliber.No pneumoperitoneum. Small presacral rim-enhancing fluid collectionmeasuring 2.2 x 1.8 x 0.9 cm. VASCULATURE: The abdominal aorta is nonaneurysmal. Visceral arteries arepatent. The portal, superior mesenteric, and splenic vein are patent. LYMPH NODES: Not enlarged. REPRODUCTIVE ORGANS: Within normal limits. MSK/SOFT TISSUES: Vertebral body heights are intact. No significantdegenerative findings. Small amount of abdominal wall subcutaneousemphysema bilaterally without inflammatory change.. IMPRESSION: * Rim-enhancing presacral fluid collection measuring 2.2 cm. This mayrepresent post operative collection or abscess. Clinical correlationrecommended. * Postsurgical changes, as detailed. Bilateral abdominal wallsubcutaneous emphysema. No pneumoperitoneum. Correlate with recentsurgery. * Subcentimeter hypoattenuating liver lesion. While this likelyrepresents a benign entity such as cyst or hemangioma, given history ofrectal cancer metastasis is not excluded. Recommend clinical correlationand appropriate follow-up imaging, as indicated. Approved by Resident: Nelson Doshi DO on 07/09/2025 8:51 PM Jeremy Montez MD have personally reviewed the image(s) and agree withand/or edited the report Finalized by Jeremy Kemp MD on 07/09/2025 9:16 PM Authorizing ProviderResult TypeResult StatusJessica N Jessi MOVEMENT ASSEMBLY FINAL INSPECTOR-CNPIMG CT ORDERABLESFinal Result * X-ray chest 2 views (07/09/2025 8:41 PM EDT)Anatomical RegionLaterality ModalityBody, ChestN/AComputed RadiographySpecimen (Source)Anatomical Location / LateralityCollection Method / VolumeCollection TimeReceived Time07/09/2025 8:48 PM EDT Narrative 07/09/2025 8:51 PM EDT XR CHEST 2 VWS HISTORY: Chest pain COMPARISON: 04/30/2013 FINDINGS: PA and lateral upright films obtained. The cardiomediastinal silhouette is within normal limits. No pleural effusion, pneumothorax, or focal consolidation. ?? IMPRESSION: * ??No radiographic evidence of an acute cardiopulmonary process. Approved by Resident: Nelson Doshi DO ??on 07/09/2025 8:48 PM Jeremy Montez MD have personally reviewed the image(s) and agree with and/or edited the report Finalized by Jeremy Kemp MD on 07/09/2025 8:51 PM Procedure Note Jeremy Kemp MD - 07/09/2025 XR CHEST 2 VWS HISTORY: Chest pain COMPARISON: 04/30/2013 FINDINGS: PA and lateral upright films obtained. The cardiomediastinal silhouette is within normal limits. No pleuraleffusion, pneumothorax, or focal consolidation. IMPRESSION: * No radiographic evidence of an acute cardiopulmonary process. Approved by Resident: Nelson Doshi DO on 07/09/2025 8:48 PM Jeremy Montez MD have personally reviewed the image(s) and agree withand/or edited the report Finalized by Jeremy Kemp MD on 07/09/2025 8:51 PM Authorizing ProviderResult TypeResult StatusJessica N Jessi MOVEMENT ASSEMBLY FINAL INSPECTOR-CNPIMG DIAGNOSTIC IMAGING ORDERABLESFinal Result * Troponin I, High Sensitivity 0 Hour (07/09/2025 7:54 PM EDT)ComponentValueRef RangeTest MethodAnalysis TimePerformed AtPathologist SignatureTROPONIN I, HIGH SENSITIVITY2<21 ng/L1 8:39 PM [facility] Specimen (Source)Anatomical Location / LateralityCollection Method / Volume Collection TimeReceived TimeBloodVenous blood / Nsqqgzg4407/09/2025 7:54 PM EDT 07/09/2025 7:59 PM EDT Narrative Authorizing ProviderResult TypeResult StatusMaxnorberto Jacobsonwalder DOLAB BLOOD ORDERABLESFinal ResultPerforming OrganizationAddressCity/State/ZIP CodePhone Number [address] [place] [address], [place] * Lavender Top (07/09/2025 7:54 PM EDT)ComponentValueRef RangeTest Method Analysis TimePerformed AtPathologist SignatureExtra TubeAuto Resulted 07/09/2025 9:02 PM EDST. MARY'S MEDICAL CENTERpecformerly [facility] (Source) Anatomical Location / LateralityCollection Method / VolumeCollection Time Received TimeBloodVenous blood / Ouywnar4907/09/2025 7:54 PM EDT1 7:59 PM EDT Narrative Authorizing ProviderResult TypeResult StatusPaige Bowen MOVEMENT ASSEMBLY FINAL INSPECTOR-CNPLAB BLOOD ORDERABLESFinal ResultPerforming OrganizationAddressCity/State/ZIP CodePhone Number [address] [place] [address], * PST TOP (07/09/2025 7:54 PM EDT)ComponentValueRef RangeTest MethodAnalysis TimePerformed AtPathologist SignatureExtra TubeAuto Idixilik98/04/2025 9:02 PM EDST. MARY'S MEDICAL CENTERpecformerly [facility] (Source)Anatomical Location / LateralityCollection Method / VolumeCollection TimeReceived TimeBloodVenous blood / Ihfjoas1707/09/2025 7:54 PM EDT1 7:59 PM EDT Narrative Authorizing ProviderResult TypeResult StatusJessica Héctor Bowen MOVEMENT ASSEMBLY FINAL INSPECTOR-CNPLAB BLOOD ORDERABLESFinal ResultPerforming OrganizationAddressCity/State/ZIP CodePhone Number [address] [place] [address], [place] * Light Blue Top (07/09/2025 7:54 PM EDT)ComponentValueRef RangeTest Method Analysis TimePerformed AtPathologist SignatureExtra TubeAuto Resulted 07/09/2025 9:02 PM EDST. MARY'S MEDICAL CENTERpecimen (Source) Anatomical Location / LateralityCollection Method / VolumeCollection Time Received TimeBloodVenous blood / Zzqbmkh8107/09/2025 7:54 PM EDT1 7:59 PM EDT Narrative Authorizing ProviderResult TypeResult StatusJecorrine Bowen MOVEMENT ASSEMBLY FINAL INSPECTOR-CNPLAB BLOOD ORDERABLESFinal ResultPerforming OrganizationAddressCity/State/ZIP CodePhone Number [address] [place] [address], [place] * (ABNORMAL) CBC auto differential (07/09/2025 7:54 PM EDT)ComponentValueRef RangeTest MethodAnalysis TimePerformed AtPathologist SignatureWBC7.24 - 11 x10E9/L1 8:07 PM [facility]OSPITALRBC Count4.11 4.1 - 5.7 X10E12/L1 8:07 PM [facility] Xddktsrvqz08.113 - 17 g/dL07/09/2025 8:07 PM EDTPMARIETTA OSTEOPATHIC CLINICHematocrit38.4(L)39 - 50 %07/09/2025 8:07 PM EDTPMARIETTA OSTEOPATHIC CLINICMCV9380 - 100 fL07/09/2025 8:07 PM EDTPMARIETTA OSTEOPATHIC CLINICMCH31.927 - 34 pg07/09/2025 8:07 PM EDTPMARIETTA OSTEOPATHIC CLINICMCHC34.132 - 36 g/dL07/09/2025 8:07 PM EDRIVERSIDE METHODIST HOSPITALRDW12.811.5 - 15 %07/09/2025 8:07 PM EDRIVERSIDE METHODIST HOSPITALPlatelet Diygg769785 - 450 X10E9/L1 8:07 PM EDT [facility]MPV6.7(L)7 - 12 fL07/09/2025 8:07 PM EDT [facility]Neutrophils %73.7%07/09/2025 8:07 PM EDT [facility]ALTHLymphocytes %12.4%07/09/2025 8:[address] [facility] HOSPITALMonocytes %10.8%07/09/2025 8:[address] [facility] HOSPITALEosinophils %2.5%07/09/2025 8:07 PM EDT [facility]Basophils %0.6%07/09/2025 8:07 PM EDT [facility]ALTHNeutrophils Absolute (A)5.31.5 - 6.6 10*3/uL07/09/2025 8:07 PM EDTPMARIETTA OSTEOPATHIC CLINICLymphocytes Absolute0.9(L)1.0 - 3.5 10*3/uL07/09/2025 8:07 PM EDTPMARIETTA OSTEOPATHIC CLINICMonocytes Absolute0.80.0 - 0.9 10*3/uL07/09/2025 8:07 PM EDT [facility]ALTHEosinophils Absolute0.20.0 - 0.4 10*3/uL 07/09/2025 8:07 PM EDTPMARIETTA OSTEOPATHIC CLINICBasophils Absolute0.0 0.0 - 0.2 10*3/uL07/09/2025 8:07 PM [facility] Differential TypeAUTOMATED QSTRQFRHKTFT83/04/2025 8:07 PM EDST. MARY'S MEDICAL CENTERpecimen (Source)Anatomical Location / LateralityCollection Method / VolumeCollection TimeReceived TimeBloodVenous blood / Unknown 07/09/2025 7:54 PM EDT1 7:59 PM EDT Narrative Authorizing ProviderResult TypeResult StatusJessica N Jessi MOVEMENT ASSEMBLY FINAL INSPECTOR-CNPLAB BLOOD ORDERABLESFinal ResultPerforming OrganizationAddressCity/State/ZIP CodePhone Number [address] [place] [address], * (ABNORMAL) Lipase (07/09/2025 7:54 PM EDT)ComponentValueRef RangeTest Method Analysis TimePerformed AtPathologist ZgbgdxjprCMMDAQ84(H)17 - 40 U/L1 8:28 PM EDTPDAYTON OSTEOPATHIC HOSPITALpecimen (Source)Anatomical Location / LateralityCollection Method / VolumeCollection TimeReceived Time BloodVenous blood / Ajzbbhz7507/09/2025 7:54 PM EDT1 7:59 PM EDT Narrative Authorizing ProviderResult TypeResult StatusMaxnorberto OTERO BLOOD ORDERABLESFinal ResultPerforming OrganizationAddressCity/State/ZIP CodePhone Number [address] [place] [place] [address], [place] * (ABNORMAL) Comprehensive metabolic panel (07/09/2025 7:54 PM EDT)Component ValueRef RangeTest MethodAnalysis TimePerformed AtPathologist SignatureSODIUM 040970 - 146 mmol/L1 8:30 PM [facility] POTASSIUM3.73.5 - 5.0 mmol/L1 8:30 PM EDRIVERSIDE METHODIST HOSPITALCHLORIDE10698 - 109 mmol/L1 8:30 PM EDRIVERSIDE METHODIST HOSPITALCARBON RIKYICJ0218 - 32 mmol/L1 8:30 PM EDRIVERSIDE METHODIST HOSPITALANION GAP75 - 15 mmol/L1 8:30 PM EDT [facility]ALTHBLOOD UREA WQDLQRVB578 - 27 mg/dL07/09/2025 8:30 PM EDRIVERSIDE METHODIST HOSPITALCREATININE0.930.70 - 1.20 mg/dL 07/09/2025 8:30 PM EDRIVERSIDE METHODIST HOSPITALComment:METHOD TRACEABLE TO IDMS YKDGHOFWOJUAJST294(H)65 - 99 mg/dL07/09/2025 8:30 PM EDT [facility]ALTHCALCIUM8.78.5 - 10.5 mg/dL07/09/2025 8:30 PM [facility]OSPITALTOTAL PROTEIN7.16.0 - 8.0 g/dL 07/09/2025 8:30 PM [facility] HOSPITALALBUMIN3.93.2 - 5.3 g/dL07/09/2025 8:30 PM [facility]OSPITALALKALINE SNIZCDAAITS6221 - 130 U/L1 8:30 PM [facility]ITALAST20<=41 U/L1 8:30 PM [facility] ALT18<=40 U/L1 8:30 PM [facility] BILIRUBIN,TOTAL0.70.3 - 1.2 mg/dL07/09/2025 8:30 PM [facility] HOSPITALEGFR Non-Race Scidhpwem40>=60 ml/min/1.73sq.m1 8:30 PM [facility]ITALComment: eGFR not reported due to non-numeric value for Creatinine. Reported eGFR is based on the CKD-EPI 2020 equation that does not use a race coefficient. Specimen (Source)Anatomical Location / LateralityCollection Method / Volume Collection TimeReceived TimeBloodVenous blood / Cwwnszk5307/09/2025 7:54 PM EDT 07/09/2025 7:59 PM EDT Narrative Authorizing ProviderResult TypeResult StatusJesschristine Bowen MOVEMENT ASSEMBLY FINAL INSPECTOR-CNPLAB BLOOD ORDERABLESFinal ResultPerforming OrganizationAddressCity/State/ZIP CodePhone Number [facility] [address] [place] [address], * ECG 12 lead (07/09/2025 7:47 PM EDT)Specimen (Source)Anatomical Location / LateralityCollection Method / VolumeCollection TimeReceived Time07/09/2025 7:47 PM EDT Narrative Authorizing ProviderResult TypeResult StatusWashingtonnorberto Christopher DOECG ORDERABLESFinal ResultPerforming OrganizationAddressCity/State/ZIP CodePhone Number [facility]AC[facility]ASTERVUE from Last 3 Months Insurance Care Teams Team MemberRelationshipSpecialtyStart DateEnd Date Corinne Torres MD [address] [facility] [address] [place] [address] PCP - GeneralFamily Ctkdccyq04/4/25
--- OUTSIDE RECORDS SUMMARY | 2025-08-04 00:42 | XMS_ITS | Encounter Summary ---
Author Organization [facility] Address [address] [place] [address] Care Team Providers Care Cargo And Container Inspector Name Role Phone Corinne Torres MD Primary Care Provider [phone] Corinne Torres MD Unavailable Viviana Graves LPN Unavailable Encounter Details DateTypeDepartmentCare Team (Latest Contact Info)Lrfmlbzxznq55/24/2025Clinisync Result Encounter [facility] External Department Unsolicited Provider, Generic External Data Social History Tobacco UseTypesPacks/DayYears UsedDateSmoking Tobacco: Every DayCigarettes Smokeless Tobacco: NeverAlcohol UseStandard Drinks/WeekCommentsYes0 (1 standard drink = 0.6 oz pure alcohol)1 or 2 every couple [id number] Health LiteracyAnswer Date RecordedHow often do you [...] times a week06/27/2025How often do you attend rastafari or jewish services?1 to 4 times per year06/27/2025Do you belong to any clubs or organizations such as rastafari groups, unions, fraternal or athletic groups, or school groups?Yes06/27/2025How often do you attend meetings of the clubs or organizations you belong to?More than 4 times per year06/27/2025 Are you , , , , never , or living with a partner?Netfxky5206/27/2025UDIT-CAnswerDate RecordedQ1: How often do you have a drink containing alcohol?Monthly or less06/27/2025Q2: How many drinks containing alcohol do you have on a typical day when you are drinking?3 or Q3: How often do you have six or more drinks on one occasion?Iuwwkqs9706/27/2025 Overall Financial Resource Strain (CARDIA)AnswerDate RecordedHow hard is it for you to pay for the very basics like food, housing, medical care, and heating?Not very hard06/27/2025PHQ-2AnswerDate RecordedPatient Health Questionnaire-2 Score0 01/04/2025[facility] [place] [facility] - Occupational Stress QuestionnaireAnswerDate RecordedDo you feel stress - tense, restless, nervous, or anxious, or unable to sleep at night because yourmind is troubled all the time - these days?Only a lyeioe2206/27/2025Exercise Vital SignAnswerDate Recorded On average, how many [...] were you homeless or living in a skilled nursing (including now)?No06/27/2025Sex and Gender InformationValueDate RecordedSex Assigned at BirthNot on fileLegal SexMale 12/18/2022 6:57 PM EDTGender IdentityNot on fileSexual OrientationNot on file documented as of this encounter Functional Status * AUDIT-C ScoreAnswerDate of JgniplygmyPvcsbb617/22/2025 6:03 PM EDNeftali, Generic * Q1: How [...] or more drinks on one occasion?AnswerDate of FzuxjpqvdxPgthfqYqoednd36/22/2025 6:03 PM EDNeftali, Generic * Over the past 2 weeks, how often have you been bothered by any of the following problems?QuestionAnswerDate of AssessmentAuthorLittle interest or pleasure in doing thingsNot at all01/04/2025 2:00 PM EDTVoclifton, Isidra, HOG GRADER Feeling down, depressed, or hopelessNot at all01/04/2025 2:00 PM EDTIsidra Billingsley LPNPatient Health Questionnaire-2 [id number] 2:00 PM Isidra Taylor LPN * QuestionAnswerDate of AssessmentAuthorTrouble falling or staying asleep, or sleeping too muchNot at all01/04/2025 2:00 PM EDTVoIsidra lazo LPNFeeling tired or having little energyNot at all01/04/2025 2:00 PM EDTVoIsidra lazo LPNPoor appetite or overeatingNot at all01/04/2025 2:00 PM EDTVoChapo lazoa LPNFeeling bad about yourself - or that [...] 2:00 PM Isidra Taylor LPNPatient Health Questionnaire-9 Qjiwr414 2:00 PM Isidra Taylor LPN documented as of this encounter Plan of Treatment DateTypeDepartmentCare Team (Latest Contact Info)Nsavgjlaydx42/15/2025 10:15 AM ESTOffice Visit [facility] [place] [facility] [address] [facility] [address] [place] [id number] Corinne Torres MD [address] [facility] [address] [place] [address] documented as of this encounter Procedures Procedure NamePriorityDate/TimeAssociated DiagnosisCommentsMRI RECTUM WO/W IVCON 10/29/2024 11:50 AM EST documented in this encounter Results * MRI RECTUM WO/W IVCON (10/29/2024 11:50 AM EST)Anatomical RegionLaterality ModalityOtherSpecimen (Source)Anatomical Location / LateralityCollection Method / VolumeCollection TimeReceived Time10/29/2024 11:50 AM EST Narrative 10/29/2024 4:27 PM EST * * *Final Report* * * DATE OF EXAM: Oct 29 2024 11:50AM ?? FVM ?? 0754 ??- ??MRI RECTUM WO/W IVCON ??/ PROCEDURE REASON: Rectal mass ? 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 COMPARISON: CT abdomen pelvis 10/27/2024 TECHNIQUE: Magnet: 1.5T scanner. Multiplanar MRI with multiple sequences before and after contrast. Contrast: IV: 5 ml of Elucirem RESULT: PRIMARY ??TUMOR: MORPHOLOGY, LOCATION, AND CHARACTERISTICS: ?? Distance to the anal verge: 6.3 cm (3:23) ?? Distance to the top of sphincter complex/anorectal junction: 3.5 cm (3:23) ?? Relationship to anterior peritoneal reflection: Straddles ?? Craniocaudal length: 4.7 cm (13:17) ?? Tumor location: Mid rectum (5-10 cm) ?? Morphology: Annular ?? Mucinous: No mucin MR-T stage: T3d (tumor penetrates > 15 mm beyond muscularis propria) Structures with possible invasion by T4b tumors: N/A Invasion of anal sphincter complex: Absent. ?? Anal canal involvement: None. ?? Comments: N/A TUMOR DEPOSITS AND EXTRAMURAL VASCULAR INVASION (EMVI): ?? Tumor deposits:(separate from metastatic lymph nodes): 2.5 x 2.1 cm superior rectal tumor deposit (6:22). ?? EMVI: Yes at the posterior 6:00 position (100:31) MESORECTAL FASCIA (MRF): ?? Shortest distance of extraluminal part of the tumor to MRF: 0 cm (12:12) ?? Tumor extension through the peritonealized portion of the rectum into peritoneal fat: No extension into peritoneal fat. ?? Is there a separate tumor deposit, LN [...] extra mesorectal lymph nodes: No. EMVI: Yes. Project Assistant: PSCB ?? Transcribe Date/Time: Oct 29 2024 ??4:02P Dictated by : WILLA GILLESPIE MD This examination was interpreted and the report reviewed and electronically signed by: WILLA GILLESPIE MD on Oct 29 2024 ??4:25PM ??EST [id number]^AGFA_IDC^SI^ACN Procedure Note Radiology, Radiologist, - 10/29/2024 * * *Final Report* * * DATE OF EXAM: Oct 29 2024 11:50AM [facility] 0754 - MRI RECTUM WO/W IVCON / [...] extra mesorectal lymph nodes: No. EMVI: Yes. Project Assistant: RILEY Transcribe Date/Time: Oct 29 2024 4:02P Dictated by : WILLA GILLESPIE MD This examination was interpreted and the report reviewed and electronically signed by: WILLA GILLESPIE MD on Oct 29 2024 4:25PM EST [id number]^AGFA_IDC^SI^ACN Authorizing ProviderResult TypeResult StatusGeneric External Data Provider [facility] IMAGINGFinal Result documented in this encounter Visit Diagnoses Not on filedocumented in this encounter Care Teams Team MemberRelationshipSpecialtyStart DateEnd Date Corinne Torres MD [address] [facility] [address] [place] [address] [facility] Vdbjfwmu22/[facility]/23 Corinne Torres MD [address] [facility] [address] [place] [address] PCP - Amada BLACK09/05/23 Viviana Graves LPN [address] [facility] [address] [place] [address] 07/18/25documented as of this encounter
--- OUTSIDE RECORDS SUMMARY | 2025-08-04 00:42 | XMS_ITS | Encounter Summary ---
Author Organization [facility] Address [address] [place] [address] Care Team Providers Care Aerial Photogrammetrist Name Role Phone Corinne Torres MD Unavailable [phone] Adonay Clemente Unavailable [phone] Sandhya KimW Unavailable Unavailable Corinne Torres MD Primary Care Provider + [phone] Unavailable [phone] Mariola Ballard RN Unavailable [phone] Sancho Sánchez MD Unavailable [phone] Source Comments In the event this information is protected by the Federal Confidentiality of Alcohol and Drug AbusePatient Records regulations: The Federal rules restrict any use of the information to criminally investigate or prosecute any alcohol or drug abuse patient.[facility] Encounter Details DateTypeDepartmentCare Team (Latest Contact Info)Xxgycsagnas18/23/2025Orders Only Colorectal Surgery [address] [place] [address] [place] [address] [address] [place] [id number] Attention to ileostomy (HCC) (Primary Dx) Social History Tobacco UseTypesPacks/DayYears UsedDateSmoking Tobacco: Every GsvWshpxjhdjo778.8 Started: 1972Smokeless Tobacco: NeverAlcohol UseStandard Drinks/WeekCommentsYes0 (1 standard drink = 0.6 oz pure alcohol)very seldomPHQ-2AnswerDate RecordedPHQ-2 wtpuw411UDIT-CAnswerDate RecordedQ1: How often do you have a [...] were you homeless or living in a group home (including now)?No 06/20/2025HC UtilitiesAnswerDate RecordedIn the past 12 months has the electric, gas, oil, or water company threatened to shut off services in your home?No06/20/2025rea Deprivation IndexAnswerDate RecordedNational Score (1- 100), lower number is lower [id number] Score (1-10), lower number is lower xqnv153Data from: https://www.neighborhoodatlas.medicine.[facility].edu/. Last address used for [address] [place] [address]/07/2024Sex and Gender InformationValueDate RecordedSex Assigned at BirthNot on fileLegal EtlXncd56/21/2024 4:26 PM EST Gender IdentityNot on fileSexual OrientationNot on filedocumented as of this encounter Plan of Treatment DateTypeDepartmentCare Team (Latest Contact Info)Xufstyugjff52/30/2025 9:00 AM EDTAppointment [facility] Radiology Gastrointestinal [address] [place] [address] GGE110/31/2024 8:20 AM ESTPAT Pre Anesthesia [address] [place] [address] 2, Pacc Parker [address] [place] [address] DOS 09/14/2512 7:30 AM ESTHospital Encounter [facility] Operating Room [address] [place] [address] Teresa Tucker MD [id number] [place] [address] Attention to ileostomy (HCC) [Z43.2]09/14/2025 7:30 AM EST - 09/14/2025 10:55 AM ESTSurgery [facility] Operating Room [address] [place] [address] Teresa Tucker [place] [id number] [place] [address] CLOSURE OYADZGDSO76/05/2026 9:45 AM ESTAppointment Radiology Pet CT [address] [place] [address] CT cap11/17/2025 9:40 AM ESTVisit (SP) Office Hematology/Oncology [address] [place] [address] Lam Patel MD [address] [place] [address] CT results [place] from ReddyNamePriorityAssociated DiagnosesDate/TimeCLOSURE ILEOSTOMY Attention to ileostomy (HCC) 09/14/2025 7:30 AM ESTSIGMOIDOSCOPY FLEXIBLE Attention to ileostomy (HCC) 09/14/2025 7:30 AM ESTdocumented as of this encounter Visit Diagnoses Diagnosis Attention to ileostomy (HCC)- Primary Attention to ileostomy Attention to ileostomy (HCC) Attention to ileostomy documented in this encounter Care Teams Team MemberRelationshipSpecialtyStart DateEnd Date Corinne Torres MD [address] [place] [address] [facility]/24 Corinne Torres MD [address] [place] [address] Family Ycqzlqza10/21/24 Adonay Clemente [address] [place], [place] [id number] ReferringGeneral Ahxgfdc06/27/24 Sandhya Kim LSW Social Worker10/26/[address] [facility] [place] [address] Registered DietitianNutrition10/27/24 Mariola Ballard RN [address] [facility] [place] [address] Specialty Care CoordinatorHematology/Oncology11/05/24 Sancho Sánchez MD [address] [facility] [place] [address] PhysicianHematology/Oncology11/05/24documented as of this encounter
--- OUTSIDE RECORDS SUMMARY | 2025-08-04 00:42 | XMS_ITS | CCD ---
Author Organization [facility]iniSyal Care Team Providers Care Parenting Skills Instructor Name Role Phone HOUSE, DR LAUREN Primary Care Unavailable PAY, DR THOMAS Admitting Unavailable PAY, DR THOMAS Attending Unavailable SO, FRANCISCO ALLEN Consulting Unavailable David, Talia Consulting Unavailable REQUEST, NONE LISTED Admitting Unavaila ble REQUEST, DR MERCADO LISTED Attending Unavaila ble HOUSE, DR LAUREN Primary Care Unavailable REQUEST, NONE LISTED Consulting Unavaila ble HOUSE, DR LAUREN Primary Care Unavailable JENNIFER PRASAD Admitting Unavailable OSMAR, JENNIFER Candelaria Attending Unavailable LIZBETH, DR BRANDY Rader Consulting Unavailable JENNIFER PRASAD Consulting Unavailable Rashaun Torres MD Primary Care Provider Rashaun Torres MD Unavailable Rashaun Torres MD Unavailable [phone] Adonay Clemente Unavailable Julio [facility], Sandhya Unavailable Unavailable Rashaun Torres MD Primary Care Provider Danny RD, Joyce Unavailable Elio ROLLINS, Mariola Balderas Unavailable [phone] Gonzalo WASHINGTON, [facility] Unavailable [phone] Adonay Clemente Unavailable Adonay Clemente MD Attending Provider Rashaun Torres MD Primary Care Provider [phone] Stuart Mix MD Attending Provider [phone] Rashaun Torres MD Primary Care Provider [phone] Mariela CHRISTIAN, Marycarmen Rader Attending Provider Adonay Clemente MD Attending Provider Hilary Sánchez MD Unavailable Charanjit, Rugen M Primary Care Unavailable dAonay Clemente Admitting Unavailable Adonay Clemente Attending Unavailable Stuart Mix Attending Unavailable Charanjit, Rugen M Primary Care Unavailable Stuart Mix Admitting Unavailable Charanjit, Rugen M Primary Care Unavailable Adonay Clemente Admitting Unavailable Adonay Clemente Attending Unavailable Charanjit , Rashaun Munizy Unavailable TERESA TUCKER Attending Unavailable TERESA TUCKER Admitting Unavailable CHARANJIT, RUGEN QASIMY Primary Care Unavailable TERESA TUCKER Referring Unavailable CHARANJIT, RUGEN QASIMY Primary Care Unavailable MILY QUACH Attending Unavailable VENNEPUREDDY, HILARY Referring Unavailable ADONAY LOYOLA Attending Unavailable CLEMENTEADONAY WOLFE Attending Unavailable CHARANJIT, RUGEN M Attending Unavailable CHARANJIT, RUGEN M Attending Unavailable CLEMENTE ADONAY Cleaning Attending Unavailable CHARANJIT, RUGEN M Referring Unavailable CHARANJIT, AFSHINEN M Attending Unavailable CLEMENTEADONAY WOLFE Attending Unavailable CHARANJIT, RUGEN M Primary Care Unavailable BELA SAENZ Attending Unavailbarbara e CARYLUREDDALRINE, HILARY Attending Unavailable CHARANJIT, RUGEN DOMITILAALAY Primary Care Unavailable VENNEPUREDDY, HILARY Referring Unavailable CHARANJIT, RUGEN QASIMY Primary Care Unavailable VENNEPUREDDY, HILARY Referring Unavailable CHARANJIT, RUGEN QASIMY Primary Care Unavailable CHARANJIT, RUGEN DOMITILAALAY Primary Care Unavailable Sherrie MONSON Referring Unavailable Sherrie MONSON Attending Unavailable Sherrie MONSON Referring Unavailable CHARANJIT, RUGEN DOMITILAALAY Primary Care Unavailable TERESA TUCKER Referring Unavailable CHARANJIT, RUGEN MABALAY Primary Care Unavailable JOYCE VALLES Attending UnavailSherrie Maciel Referring Unavailable VENNEPUREDDY, HILARY Referring Unavailable VENNEPUREDDY, HILARY Attending Unavailable CHARANJIT, RUGEN DOMITILAALAY Primary Care Unavailable CHARANJIT, RUGEN MABALAY Primary Care Unavailable TERESA TUCKER Attending Unavailable VENNEPUREDDY, HILARY Referring Unavailable CHARANJIT, RUGEN MABALAY Primary Care Unavailable Sherrie MONSON Attending Unavailable MICHAEL MARTIN Attending Unavailable CHARANJIT, [facility]EN [facility] Primary Care Unavailable CHARANJIT, RUGEN MABALAY Primary Care Unavailable JOYCE VALLES Attending Unavailabl e CHARANJIT, RUGEN MABALAY Primary Care Unavailable Sherrie MONSON Referring Unavailable [facility], [facility] Unavailable Sherrie MONSON Attending Unavailable CHARANJIT, [facility] Primary Care Unavailable Sherrie MONSON Referring Unavailable CHARANJIT, [facility] Primary Care Unavailable Sherrie MONSON Referring Unavailable CHARANJIT, [facility] Primary Care Unavailable Sherrie MONSON Referring Unavailable VENNEPUREDDY, HILARY Referring Unavailable CHARANJIT, RUGEN [facility] Primary Care Unavailable CHARANJIT, [facility] Primary Care Unavailable Sherrie MONSON Referring Unavailable CHARANJIT, RUGEN [facility] Primary Care Unavailable Sherrie OMNSON Referring Unavailable CHARANJIT, RUGEN [facility] Primary Care Unavailable JOYCE VALLES Attending Unavailabl e VENNEPUREDDY, HILARY Referring Unavailable CHARANJIT, RUGEN [facility] Primary Care Unavailable CHARANJIT, RUGEN MABALAY Primary Care Unavailable ANGELINA BERNABE Attending Unavailable VENNEPUREDDY, HILARY Referring Unavailable CHARANJIT, RUGEN [facility] Primary Care Unavailable CHARANJIT, RUGEN MABALAY Primary Care Unavailable Sherrie MONSON Referring Unavailable Sherrie MONSON Attending Unavailable VENNEPUREDDY, HILARY Referring Unavailable CHARANJIT, RUGEN MABALAY Primary Care Unavailable CHARANJIT, RUGEN MABALAY Primary Care Unavailable CHARANJIT, RUGEN MABALAY Primary Care Unavailable ANGELINA BERNABE Attending Unavailable CHARANJIT, [facility] Primary Care Unavailable CHARANJIT, RUGEN MABALAY Primary Care Unavailable ANGELINA BERNABE Attending Unavailable CHARANJIT, RUGEN MABALAY Primary Care Unavailable JOYCE VALLES Attending Unavailabl e VENNEPUREDDY, HILARY Referring Unavailable CHARANJIT, RUGEN MABALAY Primary Care Unavailable CHARANJIT, RUGEN MABALAY Primary Care Unavailable TERESA TUCKER Referring Unavailable RICHARD SANTOS Attending Unavailable VENNEPUREDDY, HILARY Referring Unavailable CHARANJIT, [facility] Primary Care Unavailable VENNEPUREDDY, HILARY Referring Unavailable CHARANJIT, RUGEN QASIMY Primary Care Unavailable CONG UP Attending Unavailable CHARANJIT, AFSHINEN [facility] Primary Care Unavailable Sherrie MONSON Referring Unavailable CHARANJIT, RUGEN [facility] Primary Care Unavailable Sherrie MONSON Referring Unavailable CHARANJIT, RUGEN DOMITILAALAY Primary Care Unavailable CONG UP Attending Unavailable VENNEPUREDDY, HILARY Referring Unavailable CHARANJIT, AFSHINEN [facility] Primary Care Unavailable CHARANJIT, RUGEN [facility] Primary Care Unavailable VENNEPUREDDY, HILARY Attending Unavailable CHARANJIT, AFSHINEN [facility] Primary Care Unavailable VENNEPUREDDY, HILARY Referring Unavailable CHARANJIT, AFSHINEN [facility] Primary Care Unavailable CHARANJIT, RUGEN [facility] Primary Care Unavailable VENNEPUREDDY, HILARY Attending Unavailable CHARANJIT, RUGEN [facility] Primary Care Unavailable VENNEPUREDDY, HILARY Referring Unavailable CHARANJIT, AFSHINEN [facility] Primary Care Unavailable CHARANJIT, RUGEN DOMITILAALAY Primary Care Unavailable VENNEPUREDDY, HILARY Attending Unavailable CHARANJIT, RUGEN DOMITILAALAY Primary Care Unavailable CHARANJIT, R[facility]EN [facility] Primary Care Unavailable Sherrie MONSON Referring Unavailable CHARANJIT, AFSHINEN [facility] Primary Care Unavailable Sherrie MONSON Referring Unavailable VENNEPUREDDY, HILARY Referring Unavailable CHARANJIT, AFSHINEN QASIMY Primary Care Unavailable CHARANJIT, RUGEN DOMITILAALAY Primary Care Unavailable VENNEPUREDDY, HILARY Attending Unavailable VENNEPUREDDY, HILARY Referring Unavailable CHARANJIT, RUGEN DOMITILAALAY Primary Care Unavailable VENNEPUREDDY, HILARY Referring Unavailable CHARANJIT, RUGEN DOMITILAALAY Primary Care Unavailable VENNEPUREDDY, HILARY Attending Unavailable VENNEPUREDDY, HILARY Referring Unavailable CHARANJIT, RUGEN DOMITILAALAY Primary Care Unavailable CHARANJIT, RUGEN DOMITILAALAY Primary Care Unavailable Sherrie MONSON Referring Unavailable CHARANJIT, RUGEN DOMITILAALAY Primary Care Unavailable Sherrie MONSON Attending Unavailable Sherrie MONSON Referring Unavailable VENNEPUREDDY, HILARY Referring Unavailable CHARANJIT, RUGEN DOMITILAALAY Primary Care Unavailable VENNEPUREDDY, HILARY Attending Unavailable VENNEPUREDDY, HILARY Referring Unavailable CHARANJIT, RUGEN DOMITILAALAY Primary Care Unavailable CHARANJIT, [facility] Primary Care Unavailable Sherrie MONSON Referring Unavailable CHARANJIT, [facility] Primary Care Unavailable Sherrie MONSON Referring Unavailable CHARANJIT, [facility] Primary Care Unavailable Sherrie MONSON Referring Unavailable CHARANJIT, [facility] Primary Care Unavailable Sherrie MONSON Referring Unavailable CHARANJIT, [facility] Primary Care Unavailable JOYCE VALLES Attending Unavailabl e VENNEPUREDDY, HILARY Referring Unavailable CHARANJIT, [facility] Primary Care Unavailable VENNEPUREDDY, HILARY Referring Unavailable CHARANJIT, [facility] Primary Care Unavailable VENNEPUREDDY, HILARY Attending Unavailable CHARANJIT, [facility] Primary Care Unavailable VENNEPUREDDY, HILARY Referring Unavailable CHARANJIT, [facility] Primary Care Unavailable TERESA TUCKER Attending Unavailable CHARANJIT, [facility] Primary Care Unavailable CHARANJIT, [facility] Primary Care Unavailable RICHARD SANTOS Attending Unavailable VENNEPUREDDY, HILARY Referring Unavailable CHARANJIT, [facility] Primary Care Unavailable VENNEPUREDDY, HILARY Referring Unavailable CHARANJIT, [facility] Primary Care Unavailable VENNEPUREDDY, HILARY Referring Unavailable CHARANJIT, [facility] Primary Care Unavailable CHARANJIT, [facility] Primary Care Unavailable Sherrie MONSON Referring Unavailable CHARANJIT, [facility] Primary Care Unavailable Sherrie MONSON Referring Unavailable CHARANJIT, [facility] Primary Care Unavailable Sherrie MONSON Referring Unavailable CHARANJIT, [facility] Primary Care Unavailable Sherrie MONSON Referring Unavailable CHARANJIT, [facility] Primary Care Unavailable Sherrie MONSON Referring Unavailable CHARANJIT, [facility] Primary Care Unavailable Sherrie MONSON Referring Unavailable Sherrie MONSON Attending Unavailable CHARANJIT, [facility] Primary Care Unavailable Sherrie MONSON Attending Unavailable VENNEPUREDDY, HILARY Referring Unavailable CHARANJIT, [facility] Primary Care Unavailable VENNEPUREDDY, HILARY Attending Unavailable VENNEPUREDDY, HILARY Referring Unavailable CHARANJIT, [facility] Primary Care Unavailable CHARANJIT, [facility] Primary Care Unavailable Sherrie MONSON Referring Unavailable Sherrie MONSON Attending Unavailable CHARANJIT [facility] Primary Care Unavailable CHARANJIT, [facility] Primary Care Unavailable Sherrie MONSON Referring Unavailable VENNEPUREDDY, HILARY Referring Unavailable CHARANJIT, [facility] Primary Care Un[facility] Unavailable Sherrie MONSON Attending Unavailable Sherrie MONSON Ref[facility] Primary Care Unavailable VENNEPUREDDY, HILARY Referring Unavailable CHARANJIT, [facility] Primary Care Unavailable CHARANJIT, [facility] Primary Care Unavailable ARMANDO TUCKERU Attending Unavailable ALICIA TUCKERTU Referring Unavailable [facility], [facility] Care Un[facility] Primary Care Unavailable ALICIA TUCKERTU Referring Unavailable VENNEPUREDDY, HILARY Attending Unavailable VENNEPUREDDY, HILARY Referring Unavailable [facility] Primary Care Unavailable ADONAY CLEMENTE Referring Unavaila ble TERESA TUCKER Attending Unavailable Sherrie MONSON Attending Unavailable ROBIN, AJARATU Referring Unavailable Sherrie MONSON Referring Unavailable VENNEPUREDDARLINE, HILARY Attending Unavailable ARMANDO TUCKERU Referring Unavailable ARMANDO TUCKERU Referring Unavailable Sherrie MONSON Attending Unavailable Sherrie MONSON Referring Unavailable Sherrie MONSON Referring Unavailable CHARANJITRASHAUN [facility] Primary Care Unavailable Sherrie MONSON Referring Unavailable CHARANJIT, [facility] Primary Care Unavailable Sherrie MONSON Referring Unavailable [facility] Primary Care Unavailable CHARANJIT RASHAUN BRONSON [facility] Primary Care Unavailable Sherrie MONSON Referring Unavailable [facility] Care Unavailable Sherrie MONSON Attending [facility] Care Unavailable Sherrie MONSON Referring Unavailable Medications Current Medications MedicationDrug Class(es)DatesSig (Normalized)Sig (Original)acetaminophen 500 mg oral tablet (3 sources)Start: 45-64-5365xhjilllpefstn (Tylenol) 500 MG tablet Take 1,000 mg by mouth in the morning and 1,000 mg at noon and 1,000 mg in the evening and 1,000 mg before bedtime. 06/20/2025 Activeapixaban 2.5 mg oral tablet (3 sources)Factor Xa InhibitorStart: 06-20-2025 End: 05-05-5461ioqk 1 tablet by mouth in the morningapixaban (Eliquis) 2.5 MG tablet Take 2.5 mg by mouth in the morning and 2.5 mg in the evening. 06/20/2025 07/11/2025 ActiveBacillus coagulan-calcium carb (DIGESTIVE ADVANTAGE PROBIOTIC) 2 billion cell- 140 mg capsule (1 source)Start: 06-20-2025 End: 44-25-2023brpq 1 capsule by mouth once daily in the eveningBacillus coagulan-calcium carb (DIGESTIVE ADVANTAGE PROBIOTIC) 2 billion cell- 140 mg capsule Take 1 capsule by mouth once daily. 30 capsule 06/20/2025 4:07 PM EDT 06/20/2025 07/20/2025 Activebetamethasone 0.5 mg/ml / clotrimazole 10 mg/ml topical cream (13 sources)Azole Antifungal, CorticosteroidStart: 03-09-2025 End: 42-99-8502rxguuqjjkocg-betamethasone (LOTRISONE) cream Apply to affected area two times a day for 14 days. 45g 1 03/23/2025 04/06/2025 Active bifidobacterium animalis [id number] unt / lactobacillus acidophilus [id number] unt oral capsule (2 sources)Start: 06-20-2025 End: 13-02-0344lvfc 1 capsule by mouth in the morningProbiotic Product (Digestive Advantage) capsule Take 1 capsule by mouth in the morning. 06/20/2025 07/20/2025 ActivehydrOXYzine hydrochloride 10 mg oral tablet (20 sources)AntihistamineStart: 01-04-2025 End: 62-04-9672qskf 1 tablet by mouth every eight hourshydrOXYzine HCl (Atarax) 10 MG tablet Indications: Dermatitis Take 1 tablet (10 mg) by mouth every 8 (eight) hours if needed for itching or allergies for up to 7 days 21 tablet 01/04/2025 06/28/2025 Discontinued (Other)Start: 01-04-2025 End: 78-71-6663kxto 1 tablet by mouth every eight hours as neededhydrOXYzine HCl (ATARAX) 10 mg tablet Take 1 tablet by mouth three times a day as needed for itching/rash. 90 tablet 04/05/2025 05/05/2025 Activeibuprofen 400 mg oral tablet (3 sources)Nonsteroidal Anti-inflammatory DrugStart: 43-45-8365abdoiemhr 400 MG tablet Take 400 mg by mouth in the morning and 400 mg at noon and 400 mg in the evening. 06/20/2025 Activemethocarbamol 500 mg oral tablet (3 sources)Muscle RelaxantStart: 27-43-0210aksh 1 tablet by mouth every eight hours as neededmethocarbamol (Robaxin) 500 MG tablet Take 500 mg by mouth every 8 (eight) hours if needed 06/20/2025 ActiveStart: 27-82-8467ttcf 1 tablet by mouth every eight hours as neededmethocarbamol (ROBAXIN) 500 mg tablet Take 1 tablet by mouth three times a day as needed. 15 afuuci5806/20/2025 4:07 PM EDT 06/20/2025 ActivemetroNIDAZOLE 500 mg oral tablet (10 sources)Nitroimidazole AntimicrobialStart: 36-94-2006pmgopQWYXOFOV (FLAGYL) 500 mg tablet Indications: Rectal cancer (HCC) Take 1 tablet by mouth as dire cted. Take one tab at 6:00 p.m., another at 7:00 p.m. and the last one at 11:00 p.m., prior to surgery 3 tablet 05/26/2025 Activeneomycin sulfate 500 mg oral tablet (10 sources)Aminoglycoside AntibacterialStart: 34-70-6612behrlpwd 500 mg tablet Indications: Rectal cancer (HCC) Take 2 tablets by mouth as directed. Take two tabs at 6:00 p.m., 7:00 p.m. and 11:00 p.m., prior to surgery 6 tablet 05/26/2025 ActiveNo Name (No Known Home Meds) (1 source)Start: 78-00-3339Ni Name (No Known Home Meds) Active March 22, 2025 12:00amondansetron 8 mg oral tablet (20 sources)Serotonin-3 Receptor AntagonistStart: 11-05-2024 End: 51-07-4849dfle 1 tablet by mouth every eight hours as neededondansetron (Zofran) 8 MG tablet Take 8 mg by mouth every 8 (eight) hours if needed 11/05/2024 05/25/2025 Discontinued (Therapy completed)oxyCODONE hydrochloride 5 mg oral tablet (3 sources)Opioid AgonistStart: 06-20-2025 End: 06-78-1141fqdm 1 tablet by mouth every six hours as neededoxyCODONE (Roxicodone) 5 MG immediate release tablet Take 5 mg by mouth every 6 (six) hours if needed 06/20/2025 06/28/2025 Discontinued (Other)PEG 3350 (Glycolax, Miralax) 4 gram packet (18 sources) End: 98-77-2924vbdn 1 dose by mouth once daily as neededPEG 3350 (Glycolax, Miralax) 4 gram packet Take 1 Dose by mouth Daily as needed 05/25/2025 Discontin ued (Therapy completed)take 1 dose by mouth once daily as neededPEG 3350 (Glycolax, Miralax) 4 gram packet Take 1 Dose by mouth Daily as needed Active polyethylene glycol 3350 62609 mg powder for oral solution (20 sources)Osmotic LaxativeStart: 08-02-2024 End: 32-03-9123xsmbeulgutxs glycol, PEG, 3350 (MiraLax) 17 GM/SCOOP powder Indications: Slow transit constipation Take 17 g by mouth Daily for 3 days 51 g 08/02/2024 08/05/2024 Activepolyethylene glycol 3350 (MIRALAX) 17 gram/dose powder Take 17 g by mouth as needed for constipation. Dissolve dose in 4 - 8 ounces of liquid and take as directed. Activeprochlorperazine 10 mg oral tablet (20 sources)PhenothiazineStart: 11-05-2024 End: 70-01-4280gthr 1 tablet by mouth every six hours as neededprochlorperazine (Compazine) 10 MG tablet Take 10 mg by mouth every 6 (six) hours if needed 11/05/2024 05/25/2025 Discontinued (Therapy completed) Completed/Discontinued Medications MedicationDrug Class(es)DatesSig (Normalized)Sig (Original)capecitabine 500 mg oral tablet (20 sources)Nucleoside Metabolic InhibitorStart: 12-08-2024 End: 90-17-3435nxil 1 tablet by mouth twice dailyCapecitabine 500 mg tablet Discontinued 1300 MG PO Twice daily December 08, 2024 1:00am March 22, 2025 12:12pmStart: 11-01-2024 End: 40-39-0492anpuwbnjbebq (XELODA) 150 mg tablet Take 2 tablets (300 mg) by mouth two times a day with 1 other capecitabine prescription for 1,300 mg total. 120 tablet 11/04/2024 9:07 AM EST 11/01/2024 01/12/2025Discontinued (Discontinued by Patient)Start: 11-01-2024 End: 64-20-4978msmpjozbcmjg (XELODA) 500 mg tablet Take 2 tablets (1,000 mg) by mouth two times a day with 1 othercapecitabine prescription for 1,300 mg total. 120 tablet 11/04/2024 9:07 AM EST 11/01/2024 01/12/2025 Discontinued (Discontinued by Patient)1 ml dexamethasone phosphate 10 mg/ml injection (7 sources)CorticosteroidStart: 04-05-2025 End: 36-01-562266 mg, INTRAVENOUS, ONCE, 1 dose, On Fri04/05/25 at 1000, Administer IV doses up to 10 mg over 5 minutes. Administer doses > 10 mg over 15 to 30 minutes.Start: 03-23-2025 End: 97-99-387454 mg, INTRAVENOUS, ONCE, 1 dose, On Fri03/23/25 at 1000, Administer over 5 minutes.Start: 03-09-2025 End: 92-07-688361 mg, INTRAVENOUS, ONCE, 1 dose, On Fri03/09/25 at 0930, Administer over 5 minutes.Start: 02-09-2025 End: 64-94-272411 mg, INTRAVENOUS, ONCE, 1 dose, On Fri02/09/25 at 0930, Administer over 5 minutes.Start: 01-26-2025 End: 67-96-827953 mg, INTRAVENOUS, ONCE, 1 dose, On Fri01/26/25 at 0930, Administer over 5 minutes.Start: 01-12-2025 End: 72-69-153895 mg, INTRAVENOUS, ONCE, 1 dose, On Fri01/12/25 at 1000, Administer over 5 minutes.Start: 12-29-2024 End: mg, INTRAVENOUS, ONCE, 1 dose, On Fri12/29/24 at 0930, Administer over 5 minutes.enteric contrast (will be provided with radiology test) (20 sources)Start: 03-23-2025 End: 93-39-3081glhfofj contrast (will be provided with radiology test) For CT CHESTABD/PEL W IVCON Routine order Administer, As Directed One Time Only, via Oral, Rectal, both Oral and Rectal, Enteric Tube, Stoma orIndwelling Catheter, Enteric Contrast as designated per enteric contrast guidelines 1 each 03/23/2025 05/31/2025 Discontinued (Discontinued by Patient)Start: 03-23-2025 End: 69-04-5991fdldxik contrast (will be provided with radiology test) MRI RECTUM WO/W. Administer, As Directed One Time Only, via Oral, Rectal, both Oral and Rectal, Enteric Tube, Stoma or Indwelling Catheter, Enteric Contrast as designated per enteric contrast guidelines 1 each 03/23/2025 03/24/2025 Active Start: 32-64-1146ljbdgrd contrast (will be provided with radiology test) For CT CHESTABD/PEL W IVCON Routine order Administer, As Directed One Time Only, via Oral, Rectal, both Oral and Rectal, Enteric Tube, Stoma orIndwelling Catheter, Enteric Contrast as designated per enteric contrast guidelines 1 each 03/23/2025 ActiveStart: 10-07-2024 End: 59-40-3411zabunjs contrast (will be provided with radiology test) Indications: Rectal mass MRI RECTUM WO/W. Administer, As Directed One Time Only, via Oral, Rectal, both Oral and Rectal, Enteric Tube, Stoma orIndwelling Catheter, Enteric Contrast as designated per enteric contrast guidelines 1 Each 10/07/2024 11/08/2024 DiscontinuedStart: 10-07-2024 End: 89-07-1592bjliuje contrast (will be provided with radiology test) Indications: Rectal mass For CT CHESTABD/PEL W IVCON Routine order Administer, As Directed One Time Only, via Oral, Rectal, both Oral and Rectal, Enteric Tube, Stoma or Indwelling Catheter, Enteric Contrast as designated per enteric contrast guidelines 1 Each 10/07/2024 11/08/2024 DiscontinuedStart: 10-07-2024 enteric contrast (will be provided with radiology test) Indications: Rectal mass MRI RECTUM WO/W. Administer, As Directed One Time Only, via Oral, Rectal, both Oral and Rectal, Enteric Tube, Stoma orIndwelling Catheter, Enteric Contrast as designated per enteric contrast guidelines 1 Each 10/07/2024 ActiveStart: 90-31-6823nqkwaqe contrast (will be provided with radiology test) Indications: Rectal mass For CT CHESTABD/PEL W IVCON Routine order Administer, As Directed One Time Only, via Oral, Rectal, both Oral and Rectal, Enteric Tube, Stoma or Indwelling Catheter, Enteric Contrast as designated per enteric contrast gu idelines 1 Each 10/07/2024 Activefluorouracil 50 mg/ml injectable solution (6 sources)Nucleoside Metabolic InhibitorStart: 03-23-2025 End: 20-49-1854094 mg (400 mg/m2 1.55 m2 Treatment Plan BSA from Recorded weight), INTRAVENOUS, ONCE, 1 dose, On Fri03/23/25 at 1230, Push over 2-4 minutes start immediately after leucovorin infusion is complete. EXP: 03/27/2025 1000 RT Hazardous Chemotherapy Drug: Use appropriate PPE.Start: 03-09-2025 End: 59-92-1453880 mg (400 mg/m2 1.55 m2 Treatment Plan BSA from Recorded weight), INTRAVENOUS, ONCE, 1 dose, On Fri03/09/25 at 1200, Push over 2-4 minutes start immediately after leucovorin infusion is complete. EXP: 03/13/2025 0930 RT Hazardous Chemotherapy Drug: Use appropriate PPE.Start: 02-09-2025 End: 17-13-2217463 mg (400 mg/m2 1.55 m2 Treatment Plan BSA from Recorded weight), INTRAVENOUS, ONCE, 1 dose, On Fri02/09/25 at 1200, Push over 2-4 minutes start immediately after leucovorin infusion is complete. EXP: 92902/10/25 Hazardous Chemotherapy Drug: Use appropriate PPE.Start: 01-26-2025 End: 39-54-3724885 mg (400 mg/m2 1.53 m2 Treatment Plan BSA from Recorded weight), INTRAVENOUS, ONCE, 1 dose, On Fri01/26/25 at 1200, Push over 2-4 minutes start immediately after leucovorin infusion is complete. EXP: 01/30/2025 0910 RT Hazardous Chemotherapy Drug: Use appropriate PPE.Start: 01-12-2025 End: 91-19-4194837 mg (400 mg/m2 1.53 m2 Treatment Plan BSA from Recorded weight), INTRAVENOUS, ONCE, 1 dose, On Fri01/12/25 at 1230, Push over 2-4 minutes start immediately after leucovorin infusion is complete. EXP: 01/16/2025 1000 RT Hazardous Chemotherapy Drug: Use appropriate PPE.Start: 12-29-2024 End: 07-12-8195510 mg (400 mg/m2 1.57 m2 Treatment Plan BSA from Recorded weight), INTRAVENOUS, ONCE, 1 dose, On Fri12/29/24 at 1200, Push over 2-4 minutes start immediately after leucovorin infusion is complete. EXP: 01/02/2025 0915 RT Hazardous Chemotherapy Drug: Use appropriate PPE.fluorouracil (ADRUCIL) 3,500 mg in NaCl 0.9% 102 mL in empty bag (1 source)Start: 01-12-2025 End: ,500 mg (rounded from 3,672 mg = 2,400 mg/m2 1.53 m2 Treatment Plan BSA from Recorded weight), INTRAVENOUS, at 2.2 mL/hr, Administer over 46 Hours, ONCE, 1 dose, On Fri01/12/25 at 1230, EXP: 01/19/2025 1000 RT Hazardous Chemotherapy Drug: Use appropriate PPE. Protect from Light.fluorouracil (ADRUCIL) 3,720 mg in NaCl 0.9% 102 mL in empty bag (5 sources)Start: 04-05-2025 End: ,720 mg (2,400 mg/m2 1.55 m2 Treatment Plan BSA from Recorded weight), INTRAVENOUS, at 2.2 mL/hr, Administer over 46 Hours, ONCE, 1 dose, On Fri04/05/25 at 1230, EXP: 94404/12/25 Hazardous Chemotherapy Drug: Use appropriate PPE. Protect from Light.Start: 03-23-2025 End: ,720 mg (2,400 mg/m2 1.55 m2 Treatment Plan BSA from Recorded weight), INTRAVENOUS, at 2.2 mL/hr, Administer over 46 Hours, ONCE, 1 dose, On Fri03/23/25 at 1230, EXP: 03/30/2025 1000 RT Hazardous Chemotherapy Drug: Use appropriate PPE. Protect from Light.Start: 03-09-2025 End: ,720 mg (2,400 mg/m2 1.55 m2 Treatment Plan BSA from Recorded weight), INTRAVENOUS, at 2.2 mL/hr, Administer over 46 Hours, ONCE, 1 dose, On Fri03/09/25 at 1200, EXP: 03/16/2025 0930 RT Hazardous Chemotherapy Drug: Use appropriate PPE. Protect from Light.Start: 02-09-2025 End: ,720 mg (2,400 mg/m2 1.55 m2 Treatment Plan BSA from Recorded weight), INTRAVENOUS, at 2.2 mL/hr, Administer over 46 Hours, ONCE, 1 dose, On Fri02/09/25 at 1200, EXP: 0930 02/16/25 Hazardous Chemotherapy Drug: Use appropriate PPE. Protect from Light.Start: 01-26-2025 End: ,720 mg (2,400 mg/m2 1.55 m2 Treatment Plan BSA from Recorded weight), INTRAVENOUS, at 2.2 mL/hr, Administer over 46 Hours, ONCE, 1 dose, On Fri01/26/25 at 1200, EXP: 02/02/2025 0915 RT Hazardous Chemotherapy Drug: Use appropriate PPE. Protect from Light.fluorouracil (ADRUCIL) 3,768 mg in NaCl 0.9% 102 mL in empty bag (1 source)Start: 12-29-2024 End: ,768 mg (2,400 mg/m2 1.57 m2 Treatment Plan BSA from Recorded weight), INTRAVENOUS, at 2.2 mL/hr, Administer over 46 Hours, ONCE, 1 dose, On Fri12/29/24 at 1200, EXP: 01/05/2025 0915 RT Hazardous Chemotherapy Drug: Use appropriate PPE. Protect from Light.iv contrast (will be provided with radiology test) (20 sources)Start: 03-23-2025 End: 72-47-7771zn contrast (will be provided with radiology test) [...] protocol in the CT contrast administration guidelines link.1 each 03/23/2025 05/31/2025 Discontinued (Discontinued by Patient)Start: 03-23-2025 End: 86-11-9659bb contrast (will be provided with radiology test) MRI Rectum Inject, intravenously, once for 1 dose. No IV access, insert saline lock prior to the beginning of sedation, infusion, injection of imaging exam. Discontinue saline lock post exam. If Pt has a central line or IVAD, may access for administ ration according to line specific nursing protocol. Once exam is complete flush line and de-access according to line specific nursing protocol in the MR contrast administration guidelines link. 1 each 03/23/2025 03/24/2025 Active Start: 68-23-2632mp contrast (will be provided with radiology test) [...] protocol in the CT contrast administration guidelines link.1 each 03/23/2025 ActiveStart: 10-07-2024 End: 84-50-5916qg contrast (will be provided with radiology test) [...] administration guidelines link. 1 Each 10/07/2024 11/08/2024 DiscontinuedStart: 10-07-2024 End: 90-90-7933gp contrast (will be provided with radiology test) [...] administration guidelines link. 1 Each 10/07/2024 11/08/2024 DiscontinuedStart: 23-24-6642xq contrast (will be provided with radiology test) [...] contrast administration guidelines link. 1 Each 10/07/2024 ActiveStart: 00-44-8265gu contrast (will be provided with radiology test) [...] contrast administration guidelines link. 1 Each 10/07/2024 ActiveLeucovorin (7 sources)Folate AnalogStart: 04-05-2025 End: 38-95-4002722 mg (400 mg/m2 1.55 m2 Treatment Plan BSA from Recorded weight), INTRAVENOUS, Administer over 2 Hours, ONCE, 1 dose, On Fri04/05/25 at 1030, PROTECT FROM LIGHT ADMINISTER CONCURRENTLY WITH OXALIPLATIN. REFRIGERATE Start: 03-23-2025 End: 93-12-7742012 mg (400 mg/m2 1.55 m2 Treatment Plan BSA from Recorded weight), INTRAVENOUS, Administer over 2 Hours, ONCE, 1 dose, On Fri03/23/25 at 1030, PROTECT FROM LIGHT EXP: 03/24/2025 1600 RT ADMINISTER CONCURRENTLY WITH OXALIPLATIN. REFRIGERATEStart: 03-09-2025 End: 34-10-1982857 mg (400 mg/m2 1.55 m2 Treatment Plan BSA from Recorded weight), INTRAVENOUS, Administer over 2 Hours, ONCE, 1 dose, On Fri03/09/25 at 1000, PROTECT FROM LIGHT EXP: 03/10/2025 1530 RT ADMINISTER CONCURRENTLY WITH OXALIPLATIN. REFRIGERATEStart: 02-09-2025 End: 25-61-3385133 mg (400 mg/m2 1.55 m2 Treatment Plan BSA from Recorded weight), INTRAVENOUS, Administer over 2 Hours, ONCE, 1 dose, On Fri02/09/25 at 1000, PROTECT FROM LIGHT ADMINISTER CONCURRENTLY WITH OXALIPLATIN. REFRIGERATE Start: 01-26-2025 End: 59-43-0618933 mg (400 mg/m2 1.53 m2 Treatment Plan BSA from Recorded weight), INTRAVENOUS, Administer over 2 Hours, ONCE, 1 dose, On Fri01/26/25 at 1000, PROTECT FROM LIGHT EXP: 01/27/2025 1510 RT ADMINISTER CONCURRENTLY WITH OXALIPLATIN. REFRIGERATEStart: 01-12-2025 End: 48-30-1739482 mg (400 mg/m2 1.53 m2 Treatment Plan BSA from Recorded weight), INTRAVENOUS, Administer over 2 Hours, ONCE, 1 dose, On Fri01/12/25 at 1030, PROTECT FROM LIGHT EXP: 01/13/2025 1600 RT ADMINISTER CONCURRENTLY WITH OXALIPLATIN. REFRIGERATEStart: 12-29-2024 End: 67-08-1260071 mg (400 mg/m2 1.57 m2 Treatment Plan BSA from Recorded weight), INTRAVENOUS, Administer over 2 Hours, ONCE, 1 dose, On Fri12/29/24 at 1000, PROTECT FROM LIGHT EXP: 12/30/2024 1515 RT ADMINISTER CONCURRENTLY WITH OXALIPLATIN. REFRIGERATEoxaliplatin (7 sources)[place] DrugStart: 04-05-2025 End: 98-14-0234704.75 mg (85 mg/m2 1.55 m2 Treatment Plan BSA from Recorded weight), INTRAVENOUS, Administer over 2 Hours, ONCE, 1 dose, On Fri04/05/25 at 1030, Administer concurrently with leucovorin. EXP: 1545 04/05/25 Hazardous Chemotherapy Drug: Use appropriate PPE. Antineoplastic Irritant with Vesicant Potential. Flush line with D5W before and after administration.Start: 03-23-2025 End: 39-67-3177946.75 mg (85 mg/m2 1.55 m2 Treatment Plan BSA from Recorded weight), INTRAVENOUS, Administer over 2 Hours, ONCE, 1 dose, On Fri03/23/25 at 1030, Administer concurrently with leucovorin. EXP: 03/27/2025 1000 RT Hazardous Chemotherapy Drug: Use appropriate PPE. Antineoplastic Irritant with Vesicant P otential. Flush line with D5W before and after administration.Start: 03-09-2025 End: 35-86-6836785.75 mg (85 mg/m2 1.55 m2 Treatment Plan BSA from Recorded weight), INTRAVENOUS, Administer over 2 Hours, ONCE, 1 dose, On Fri03/09/25 at 1000, Administer concurrently with leucovorin. EXP:03/13/2025 0930 RT Hazardous Chemotherapy Drug: Use appropriate PPE. Antineoplastic Irritant with Vesicant Potential. Flush line with D5W before and after administration.Start: 02-09-2025 End: 74-83-9455048.75 mg (85 mg/m2 1.55 m2 Treatment Plan BSA from Recorded weight), INTRAVENOUS, Administer over 2 Hours, ONCE, 1 dose, On Fri02/09/25 at 1000, Administer concurrently with leucovorin. EXP: 152902/09/25 Hazardous Chemotherapy Drug: Use appropriate PPE. Antineoplastic Irritant with Vesicant Potential. Flush line with D5W before and after administration.Start: 01-26-2025 End: .05 mg (85 mg/m2 1.53 m2 Treatment Plan BSA from Recorded weight), INTRAVENOUS, Administer over 2 Hours, ONCE, 1 dose, On Fri01/26/25 at 1000, Administer concurrently with leucovorin. EXP: 01/30/2025 0910 RT Hazardous Chemotherapy Drug: Use appropriate PPE. Antineoplastic Irritant with Vesicant P otential. Flush line with D5W before and after administration.Start: 01-12-2025 End: 86-07-4541640.05 mg (85 mg/m2 1.53 m2 Treatment Plan BSA from Recorded weight), INTRAVENOUS, Administer over 2 Hours, ONCE, 1 dose, On Fri01/12/25 at 1030, Administer concurrently with leucovorin. EXP: 01/16/2025 1000 RT Hazardous Chemotherapy Drug: Use appropriate PPE. Antineoplastic Irritant with Vesicant Po tential. Flush line with D5W before and after administration.Start: 12-29-2024 End: 41-68-2621944.45 mg (85 mg/m2 1.57 m2 Treatment Plan BSA from Recorded weight), INTRAVENOUS, Administer over 2 Hours, ONCE, 1 dose, On Fri12/29/24 at 1000, Administer concurrently with leucovorin. EXP: 01/02/2025 0915 RT Hazardous Chemotherapy Drug: Use appropriate PPE. Antineoplastic Irritant with Vesicant P otential. Flush line with D5W before and after administration.5 ml palonosetron 0.05 mg/ml injection (7 sources)Serotonin-3 Receptor AntagonistStart: 04-05-2025 End: 50.25 mg, INTRAVENOUS, ONCE, 1 dose, On Fri04/05/25 at 1000, Flush IV line with NS prior to and following administration.Start: 03-23-2025 End: 50.25 mg, INTRAVENOUS, ONCE, 1 dose, On Fri03/23/25 at 1000, Flush IV line with NS prior to and following administration.Start: 03-09-2025 End: 50.25 mg, INTRAVENOUS, ONCE, 1 dose, On Fri03/09/25 at 0930, Flush IV line with NS prior to and following administration.Start: 02-09-2025 End: 50.25 mg, INTRAVENOUS, ONCE, 1 dose, On Fri02/09/25 at 0930, Flush IV line with NS prior to and following administration.Start: 01-26-2025 End: 50.25 mg, INTRAVENOUS, ONCE, 1 dose, On Fri01/26/25 at 0930, Flush IV line with NS prior to and following administration.Start: 01-12-2025 End: 50.25 mg, INTRAVENOUS, ONCE, 1 dose, On Fri01/12/25 at 1000, Flush IV line with NS prior to and following administration.Start: 12-29-2024 End: 50.25 mg, INTRAVENOUS, ONCE, 1 dose, On Fri12/29/24 at 0930, Flush IV line with NS prior to and following administration.Polyethylene Glycols (20 sources) End: 33-40-1349lyuv 1 dose by mouth once daily as neededpolyethylene glycol 3350 (MIRALAX ORAL) Take 1 Dose by mouth once daily as needed (contstipation). 0 01/12/2025 Discontinued (Discontinued by Patient)take 1 dose by mouth once daily as neededpolyethylene glycol 3350 (MIRALAX ORAL) Take 1 Dose by mouth once daily as needed (contstipation). Activepolyethylene glycol 3350 (MIRALAX ORAL) Take by mouth. Qkddvq1002 ml sodium chloride 9 mg/ml injection (4 sources)Start: 03-25-2025 End: ,000 mL, INTRAVENOUS, at 999 mL/hr, Administer over 1 Hours, ONCE, 1 dose, On Fri03/25/25 at 1130Start: 03-11-2025 End: 95-34-728603-20 mL, INTRAVENOUS, NEEDED, Starting on Fri03/11/25 at 0954, Until Fri03/11/25 at 1329, See Administration Instructions, If no IVAD access, may place IV if needed for labs or possible treatment. Flush 10-20ml on IV start and as needed. D5W or LR may be used in place of NS for medication that are incompatible (i.e. with oxaliplatin).Start: 02-11-2025 End: 10-29-608743-20 mL, INTRAVENOUS, NEEDED, Starting on Fri02/11/25 at 1033, Until Fri02/11/25 at 1238, See Administration Instructions, If no IVAD access, may place IV if needed for labs or possible treatment. Flush 10-20ml on IV start and as needed. D5W or LR may be used in place of NS for medication that are incompatible (i.e. with oxaliplatin).Start: 12-31-2024 End: 24-54-009847-20 mL, INTRAVENOUS, NEEDED, Starting on Fri12/31/24 at 0944, Until Fri12/31/24 at 1514, See Administration Instructions, If no IVAD access, may place IV if needed for labs or possible treatment. Flush 10-20ml on IV start and as needed. D5W or LR may be used in place of NS for medication that are incompatible (i.e. with oxaliplatin). Problems Active Problems Problem ClassificationProblemDateDocumented DateEpisodic/ChronicAbdominal pain (2 sources)Generalized abdominal pain; Translations: [Abdominal pain]Onset: 66-65-8843MnzroqilIwjmrlbetsuihq/social admission (1 source)Other specified counseling; Translations: [Ostomy nurse consultation] Onset: 77-48-5351ZcrojbadRozhmyie reactions (2 sources)Inflammatory dermatosis; Translations: [Dermatitis, unspecified] 87-87-6244WrmfkgxkFzymkc of colon (6 sources)Malignant tumor of colon; Translations: [Malignant neoplasm of colon, unspecified]06-91-2281OqjokriVzdqzs of rectum and anus (20 sources)Malignant tumor of rectum; Translations: [Malignant neoplasm of rectum]Onset: 081469-40-9547ZhmvzsaOlgtlw of rectum and anus (1 source)Personal history of other malignant neoplasm of rectum, rectosigmoid junction, and anus; Translations: [Personal history of other malignant neoplasm of rectum, rectosigmoid junction, and anus]Onset: 72-29-7115HmayzikhDqsydwy dysrhythmias (4 sources)Paroxysmal atrial fibrillation; Translations: [Paroxysmal atrial fibrillation]Onset: 682905-14-5030AxbyxnzKpgwxxh obstructive pulmonary disease and bronchiectasis (4 sources)Pulmonary emphysema; Translations: [Emphysema, unspecified]Onset: 727440-01-6050QqbjandDsqlmsxl mellitus without complication (1 source)Diabetes mellitus; Translations: [Type 2 diabetes mellitus without complications]91-22-1229PdzomxfHqlymdzt mellitus without complication (20 sources)Hyperglycemia; Translations: [Hyperglycemia, unspecified]Onset: 708461-23-4365NdhnvdjzKfcyvdrmk hypertension (20 sources)Benign essential hypertension; Translations: [Essential (primary) hypertension]Onset: 702468-14-3042DslxdbjFhgpuoxefgxeg symptoms and ill- defined conditions (2 sources)Nocturia; Translations: [Nocturia]85-79-2731DrvrhlukQxfcsgfj disorders (2 sources)Secondary immune deficiency disorder; Translations: [Immunodeficiency due to conditions classified elsewhere (CMS/[facility])]26-62-0692ArbknbtTogkxpyegpd chest pain (4 sources)Chest pain; Translations: [Chest pain, unspecified]Onset: 09-24-2022 EpisodicNutritional deficiencies (20 sources)Deficiency of macronutrients; Translations: [Unspecified protein- calorie malnutrition]Onset: 851753-16-0985MmdjnexDjgxa aftercare (1 source)Encounter for follow-up examination after completed treatment for conditions other than malignant neoplasm; Translations: [Follow-up examination after colorectal surgery]Onset: 60-43-2987FxhxqcdgRvmgj connective tissue disease (1 source)Olecranon bursitis, right elbow; Translations: [OLECRANON BURSITIS RIGHT ELBOW]Onset: 69-92-0516CublcrxwSvhux endocrine disorders (20 sources)Hypoglycemia; Translations: [Hypoglycemia, unspecified]Onset: 961468-29-6372NsewucnLbcoz gastrointestinal disorders (1 source)Encounter for attention to ileostomy; Translations: [Attention to ileostomy ([facility])]Onset: 41-95-8448FsdkfmjWhhnc gastrointestinal disorders (4 sources)Heartburn; Translations: [Heartburn]Onset: EpisodicOther nervous system disorders (1 source)Other acute postprocedural pain; Translations: [Post-op pain]Onset: 10-14-2423UogqiykwMklqk skin disorders (3 sources)Localized swelling, mass and lump, right upper limb; Translations: [LOC SWELL MASS LUMP RT UPPER LIMB]Onset: 75-29-5519SfvfgvtnIkjldufc codes; unclassified (2 sources)Other problems related to lifestyle; Translations: [Other problems related to lifestyle]22-74-2441BuaqzapnPogjjhde codes; unclassified (2 sources)Past history of procedure; Translations: [Other specified postprocedural states]05-54-6330OhoakhalPrekaywdz malignancies (4 sources)Secondary malignant neoplasm of large intestine and rectum; Translations: [Secondary malignant neoplasm of large intestine and rectum]Onset: 720255-77-7424PohxgfiOkweazskhbl; intervertebral disc disorders; other back problems (1 source)Sacroiliitis, not elsewhere classified; Translations: [SACROILIITIS NEC]Onset: 70-41-9430YqwunqnCwcyhqtrldm; intervertebral disc disorders; other back problems (3 sources)Sacrococcygeal disorders, not elsewhere classified; Translations: [SACROCOCCYGEAL DISORDERS NEC]Onset: 83-12-0822QzgbhdwsJishvyvqe-related disorders (20 sources)Nicotine dependence, cigarettes, uncomplicated; Translations: [Smoker]Onset: 996673-76-9247FbljwyaKuigrmiaukbr (8 sources)Autogenerated ProblemOnset: 057589-75-6029Zwldwswzpcfr (1 source)Abdominal Pain, Chest PainOnset: 69-42-6957Niomyknzarmv (1 source)Rectal CancerOnset: 05-31-2025 Past or Other Problems Problem ClassificationProblemDateDocumented DateEpisodic/ChronicAnal and rectal conditions (20 sources)Disorder of large intestine; Translations: [Stenosis of anus and rectum]Onset: 10-01-2024 Resolved: 307455-54-7324OhgyfhlyLfeywqtc mellitus with complications (20 sources)Neuropathy due to type 2 diabetes mellitus; Translations: [Type 2 diabetes mellitus with diabetic neuropathy, unspecified]Onset: 08-04-2023 Resolved: 806955-92-9270ZnpxwvnRnplmbkihdxjpgjf hemorrhage (20 sources)Hematochezia; Translations: [Melena]Onset: EpisodicMood disorders (20 sources)Mood disordersOnset: Other connective tissue disease (20 sources)Muscle pain; Translations: [Myalgia, unspecified site]Onset: 943547-68-4787DejqaluxHkfue gastrointestinal disorders (1 source)Ileostomy bag changed; Translations: [Encounter for attention to ileostomy]Onset: 06-20-2025 Resolved: 641457-86-8663FjlkpqtKpfmx gastrointestinal disorders (20 sources)Slow transit constipation; Translations: [Slow transit constipation] Onset: 402992-45-4456XyqprqsjGnyek gastrointestinal disorders (20 sources)Altered bowel function; Translations: [Change in bowel habit]Onset: 721575-65-7359RlcnzgkcSmtwd nervous system disorders (20 sources)Disorder of muscle; Translations: [Myopathy, unspecified]Onset: 11-07-2023 Resolved: 413861-81-9959CkbcoyqEywky screening for suspected conditions (not mental disorders or infectious disease) (6 sources)Patient encounter status; Translations: [Encounter for screening for lipoid disorders]Onset: 06-20-2025 Resolved: 306980-64-9417GneudkfqXevvgnsbfwcm (2 sources)Patient encounter ffgmyf20-75-6001Dsmvouhhsbsp (1 source)Preprocedural examination rlyw42-52-0424Yowczbr tract infections (20 sources)Acute cystitis; Translations: [Acute cystitis without hematuria] Onset: 08-02-2024 Resolved: 713134-22-1579Hbzzropv Results Test NameValueInterpretationReference RangeFacilityVA [facility] HEALTHCARE SYSTEMTEDon 07-28-2025 CNCNPATEDNormalCleveland [facility] Alexander CampusCNOVon 07-16-2644UMIJYklicbNxzzbrgio [facility] CampusCNPNon 05-43-3735CANBLucifbEtnlwdfod Clinic ClevelandCNOVSPon 18-36-5964EBRPNODpjyksJqtryfyiu [facility] WITH AUTO DIFFERENTIALon 71-89-5691JJXMXRAQE ABSOLUTE COUNT (10*3/UL) BY AUTOMATED COUNT0.0 10*3/uLNormal 0.0-0.2Pro[facility] Hills Regional Medical CenterComment on above:Performed By: #### CBCA #### [facility] ([facility]) [address] [place] [address] [place] [address] VIRBASOPHILS RELATIVE PERCENT BY AUTOMATED COUNT0.6 %Normal [facility] CenterComment on above:Performed By: #### CBCA #### [facility] ([facility]) [address] [place] [address]. [place] [address] VIRCELLAVISION DIFFERENTIAL TYPEAUTOMATED DIFFERENTIALNormal [facility] CenterComment on above:Performed By: #### CBCA #### [facility] ([address] [place] [address] VIREosinophils (Bld) [#/Vol]0.2 10*3/uLNormal0.0-0.4[facility] Medical CenterComment on above:Performed By: #### CBCA #### [facility] ([address] [place] [address] VIREOSINOPHILS RELATIVE PERCENT BY AUTOMATED COUNT2.5 %Normal [facility] CenterComment on above:Performed By: #### CBCA #### [facility] ([address] [place] [address] VIRErythrocyte distribution width (RBC) [Ratio]12.8 %Normal 11.5-15[facility] Medical CenterComment on above:Performed By: #### CBCA #### [facility] ([address] [place] [address] VIRHematocrit (Bld) [Volume fraction]38.4 %Gyz57-98VwoNrtsvxUC Medical CenterComment on above:Performed By: #### CBCA #### [facility] ([address] [place] [address] VIRHemoglobin (Bld) [Mass/Vol]13.1 g/uAQzqmaq85-05YrnVqyfmwUC Medical CenterComment on above:Performed By: #### CBCA #### [facility] ([address] [place] [address] VIRLYMPHOCYTES ABSOLUTE COUNT (10*3/UL) BY AUTOMATED COUNT0.9 10*3/uLLow1.0-3.5PWhite HospitalComment on above:Performed By: #### CBCA #### [facility] ([address] [place] [address] VIRLYMPHOCYTES RELATIVE PERCENT BY AUTOMATED COUNT12.4 %Normal [facility]ammany HospitalComment on above:Performed By: #### CBCA #### [facility] ([address] [place] [address] VIRMCH (RBC) [Entitic mass]31.9 dyCggltd97-57RzfBxynupBaptist Hospitals Of Southeast TexasComment on above:Performed By: #### CBCA #### [facility] ([address] [place] [address] VIRMCHC (RBC) [Mass/Vol]34.1 g/bHKkkjqc79-24KghPvvgiaBaptist Hospitals Of Southeast TexasComment on above:Performed By: #### CBCA #### [facility] ([address] [place] [address] VIRMCV (RBC) [Entitic vol]93 nJLtuxsi21-218MdpJkpjzo [facility]remont HospitalComment on above:Performed By: #### CBCA #### [facility] ([address] [place] [address] VIRMONOCYTES ABSOLUTE COUNT (10*3/UL) BY AUTOMATED COUNT0.8 10*3/uLNormal0.0-0.9[facility] CenterComascension stand[facility] hospital on above:Performed By: #### CBCA #### [facility] ([facility]) [address] [place] [address]. [place] [address] VIRMONOCYTES RELATIVE PERCENT BY AUTOMATED COUNT10.8 %Normal [facility] CenterComment on above:Performed By: #### CBCA #### [facility] ([address] [place] [address] VIRNEUTROPHILS ABSOLUTE COUNT BY AUTOMATED COUNT5.3 10*3/uL Normal1.5-6.6[facility] CenterComascension standish hospital on above:Performed By: #### CBCA #### [facility] ([address] [place] [address] VIRNEUTROPHILS RELATIVE PERCENT BY AUTOMATED COUNT73.7 %Normal [facility] Tammany HospitalComment on above:Performed By: #### CBCA #### [facility] ([place] [address] [place] [address] VIRPlatelet mean volume (Bld) [Entitic vol]6.7 fLLow7-12 [facility] CenterComment on above:Performed By: #### CBCA #### [facility] ([place] [address] [place] [address] VIRPlatelets (Bld) [#/Vol]272 10*3/rXZieafb221-263DadOunthu [facility] HospitalComment on above:Performed By: #### CBCA #### [facility] ([address] [place] [address] VIRRBC COUNT4.11 X10E12/LNormal4.1-5.7UC Medical CenterComment on above:Performed By: #### CBCA #### [facility] ([address] [place] [address] VIRWBC (Bld) [#/Vol]7.2 10*3/uLNormal4-11[facility] Medical CenterComment on above:Performed By: #### CBCA #### [facility] ([address] [place] [address] VIRCOMPREHENSIVE METABOLIC PANELon 48-07-9855Kaznpsh [Mass/Vol]3.9 g/dLNormal3.2-5.3PWhite HospitalComment on above: Performed By: #### CMP #### [facility] ([facility]) [address] [place] [address] [place] [address] VIRALP [Catalytic activity/Vol]94 U/ODtkdsg47-319FogZsnttgBaptist Hospitals Of Southeast TexasComment on above:Performed By: #### CMP #### [facility] ([place] [address] [place] [address] VIRALT [Catalytic activity/Vol]18 U/LNormal<=40ProBaptist Hospitals Of Southeast TexasComment on above:Performed By: #### CMP #### [facility] ([place] [address] [place] [place] [address] VIRAnion gap [Moles/Vol]7 mmol/LNormal5-15ProBaptist Hospitals Of Southeast TexasComment on above:Performed By: #### CMP #### [facility] ([place] [address] [place] [address] VIRAST [Catalytic activity/Vol]20 U/LNormal<=41ProBaptist Hospitals Of Southeast TexasComment on above:Performed By: #### CMP #### [facility] ([place] [address] [place] [address] VIRBilirubin [Mass/Vol]0.7 mg/dLNormal0.3-1.2PWhite HospitalComment on above:Performed By: #### CMP #### [facility] ([place] [address] [place] [address] VIRCalcium [Mass/Vol]8.7 mg/dLNormal8.5-10.5PWhite HospitalComment on above:Performed By: #### CMP #### [facility] ([place] [address] [place] [address] VIRChloride [Moles/Vol]106 mmol/XLstmql45-327QyvWolthiBaptist Hospitals Of Southeast TexasComment on above:Performed By: #### CMP #### [facility] ([place] [address] [facility] [place] [address] VIRCO2 [Moles/Vol]27 mmol/BPqvwhs09-32RcjTnfyieWhite HospitalComment on above:Performed By: #### CMP #### [facility] ([facility]) [facility] [address] [place] [place] [address] VIRCreatinine [Mass/Vol]0.93 mg/dLNormal0.70-1.20ProBrookhaven Hospital – Tulsat HospitalComment on above:Result Comment: METHOD TRACEABLE TO IDRI STANDARDPerformed By: #### CMP #### [address] [address] VIRGFR/1.73 sq M.predicted among non-blacks MDRD (S/P/Bld) [Vol rate/Area]90 mL/min/{1.73_m2}Normal>=60ProBaptist Hospitals Of Southeast TexasComment on above:Result Comment: eGFR not reported due to non-numeric value for Creatinine. Reported eGFR is based on the CKD-EPI 2020 equation that does not use a race coefficient.Performed By: #### CMP #### [address] [address] VIRGlucose [Mass/Vol]109 mg/oFEwij57-42AdoUqkxftBaptist Hospitals Of Southeast TexasComment on above:Performed By: #### CMP #### [address] [address] VIRPotassium [Moles/Vol]3.7 mmol/LNormal3.5-5.0UC Medical CenterComment on above:Performed By: #### CMP #### [address] [address] VIRProtein [Mass/Vol]7.1 g/dLNormal6.0-8.0ProBaptist Hospitals Of Southeast TexasComment on above:Performed By: #### CMP #### [address] [address] VIRSodium [Moles/Vol]140 mmol/FOpjlbl222-126NrbQicnen Fremont HospitalComment on above:Performed By: #### CMP #### [address] [address] VIRUrea nitrogen [Mass/Vol]14 mg/dLNormal5-27ProBaptist Hospitals Of Southeast TexasComment on above:Performed By: #### CMP #### [facility] ([facility]) [address] [place] [address] VIRCT ABDOMEN AND PELVIS W CONTon 10-22-1142RX ABDOMEN AND PELVIS W CONTCT ABDOMEN AND PELVIS W CONT CLINICAL INFORMATION: 65 years Male with abdominal [...] 4A (series 2 image 15). Contracted gallbladder. No biliary dilation. PANCREAS: Morphology and enhancement within normal limits. SPLEEN: Within normal limits. ADRENAL GLANDS: Within normal limits. KIDNEYS, URETERS, AND BLADDER: Kidney size, morphology, and enhancement are within normal limits. No suspicious renal lesions. Simple cyst left kidney which requires no imaging follow-up. No calculi or collecting system dilation. Urinary bladder is within normal limits. GI TRACT AND PERITONEUM: Left hemicolectomy with Chavez pouch and right abdominal colostomy. . Thesmall and large bowel are normal in caliber. No pneumoperitoneum. Small presacral rim-enhancing fluid collection measuring 2.2 x 1.8 x 0.9 cm. VASCULATURE: The abdominal aorta is nonaneurysmal. Visceral arteries are patent. The portal, superior mesenteric, and splenic vein are patent. LYMPH NODES: Not enlarged. REPRODUCTIVE ORGANS: Within normal limits. MSK/SOFT TISSUES: Vertebral body heights are intact. No significant degenerative findings. Small amount of abdominal wall subcutaneous emphysema bilaterally without inflammatory change.. IMPRESSION: * Rim-enhancing [...] Nelson Doshi DO on 07/09/2025 8:51 PM I, Jeremy Kemp MD have personally reviewed the image(s) and agree with and/or edited the report Finalized by Jeremy Kemp MD on 07/09/2025 9:16 PMNormalProMedica West Hills Regional Medical CenterLACTATE W/ REFLEXon 44-03-6759SRBLHBM W/REFLEX0.9 mmol/LNormal0.4-2.0 UC Medical CenterComment on above:Order Comment: Result did not trigger repeat Lactate, re-order if needed.Performed By: #### LACTS #### [facility] ([address] [address] VIRLIPASEon 73-73-2526Etxzix [Catalytic activity/Vol]53 U/L Oebx97-49IwuPxmetkUC Medical CenterComment on above:Performed By: #### LIPA #### [facility] ([address] [address] VIRPOCT NURSING URINE MACROSCOPIC UAon 59-76-4388JMADHYNIN SRIRAM NegativeNormalNegUniversity Hospitals St. John Medical CenterComment on above:Performed By: #### NUM #### [facility] ([address] [address] VIRBLOOD/HGB NURNegativeNormalNegativeUC Medical CenterComment on above:Performed By: #### NUM #### [facility] ([address] [address] VIRGLUCOSE NURNegativeNoalNegUniversity Hospitals St. John Medical Center Comment on above:Performed By: #### NUM #### [facility] ([address] [address] VIRKETONES NURNegativeNocritical access hospitalNegUniversity Hospitals St. John Medical Center Comment on above:Performed By: #### NUM #### [facility] ([address] [place] [address] VIRLEUKOCYTE ESTERASE NURNegativeNormalNegativeUC Medical CenterComment on above:Performed By: #### NUM #### [facility] ([address] [address] VIRNITRITE NURNegativeNormalNegativeUC Medical Center Comment on above:Performed By: #### NUM #### [facility] ([address] [place] [address] VIRPH NUR7.0Hjtvrf3.0, 6.0, 6.5, 7.0, 7.5, 8.0, 8.5, 5.5 UC Medical CenterComment on above:Performed By: #### NUM #### [address] [address] VIRPROTEIN NURNegativeNormalNegativeUC Medical Center Comment on above:Performed By: #### NUM #### [facility] ([address] [address] VIRSPECIFIC GRAVITY NUR1.744Epfkaw4.010, 1.015, 1.020, 1.025 UC Medical CenterComment on above:Performed By: #### NUM #### [address] [address] VIRUROBILINOGEN NUR0.2 E.U./dLNormalUC Medical Center Comment on above:Performed By: #### NUM #### [facility] ([address] [address] VIRTROP I, HIGH SENSITIVITY 1 HOURon 30-92-9072BTMHCKYO I, HIGH SENSITIVITY<^2Normal<21UC Medical CenterComment on above:Performed By: #### TNIHS1 #### [facility] ([address] [address] VIRTROPONIN I, HIGH SENSITIVITY 0 HOURon 34-53-8124YGMFHZEU I, HIGH SENSITIVITY2 ng/LNormal<21ProBaptist Hospitals Of Southeast TexasComment on above: Performed By: #### TNIHS0 #### [facility] ([facility]) [address] [place] [address] VIRXR CHEST 2 VWSon 34-46-1033LK CHEST 2 VWSXR CHEST 2 VWS XR CHEST 2 VWS HISTORY: Chest pain COMPARISON: 04/30/2013 FINDINGS: PA and lateral upright films obtained. The cardiomediastinal silhouette is within normal limits. No pleural effusion, pneumothorax, or focal consolidation. IMPRESSION: * No radiographic evidence of an acute cardiopulmonary process. Approved by Resident: Nelson Doshi DO on 07/09/2025 8:48 PM I, Jeremy Kemp MD have personally reviewed the image(s) and agree with and/or edited the report Finalized by Jeremy Kepm MD on 07/09/2025 8:51 PMNormalProBaptist Hospitals Of Southeast TexasCNOVon 95-22-9960ZELRSiyyvcDwnbfeoxd Clinic ClevelandCNPNon 07-07-2025 CNPNNormalMartins Ferry HospitalCNPNon 05-69-8502PVTBVfwwnpNydsdplqw Clinic ClevelandLaboratory - Hematology and Cell countson 84-26-2082EuJ6f (Bld) [Mass fraction]5.1 %[facility] HospitalNo Panel Informationon 60-59-9075Irhtkqueebfufo and review of laboratory resultsNormalNOEllis Fischel Cancer Center HealthcareTISS PATH BX REPORTon 14-93-0496KQ DISCLAIMERNOMS University Hospitals Geauga Medical CenterComment on above:Laboratory Developed Test (LDT) Disclaimer: Performance characteristics of immunohistochemical, immunofluorescent, and chromogenic in-situ hybridization tests have been determined by the performing laboratory within the [facility] Department of Pathology and Laboratory Medicine ([facility], [facility], [facility], [facility], [facility], [facility], or [facility]) in a manner consistent with CLIA requirements. One or more of these tests may not have been cleared or approved by the FDA. The [facility] Department of Pathology and Laboratory Medicineis regulated under CLIA as qualified to perform high-complexity testing. These tests are used for clinical purposes. These should not be regarded as investigational or for research. Positive and negative controls stain appropriately. BLOCK FOR ADDITIONAL BIOMARKERS/MOLECULAR CGPDPEEL8PYZS[address] CASE REPORTNOSaint Mary's Health CenterComment on above:Surgical Pathology Report Case: [id number] Authorizing Provider: Teresa Tucker MD Collected: 2025 12:50 PM Ordering Location: [facility] Received: 2025 12:59 PM Operating Room Pathologist: Sergey Arenas MD Intraop: Sergey Arenas MD Specimens: A) - Prostate, Resection, PROSTATE CAPSALE B) - Colon, Sigmoid, Resection, Sigmoid and Rectum C) - Colon, Resection, Distal Doughnut [facility] CLINICAL HISTORYNORI HealthcareComment on above:Pre-op diagnosis: Rectal cancer (HCC) [C20] [facility] DIAGNOSIS COMMENTA Movat stain performed on block B7 with appropriate controls fails to demonstrate evidence of extramural venous invasion.[facility] FINAL DIAGNOSISNOSaint Mary's Health CenterComment on above:A. Prostate capsule, biopsy: - Benign fibromuscular tissue. B. Sigmoid colon and rectum, resection: - Residual invasive adenocarcinoma (see comment and synoptic report). - Metastatic adenocarcinoma involving two of nineteen lymph nodes (2/19). - Nine (9) hyperplastic polyps. C. Distal donut, excision: - Segment of rectum with no diagnostic abnormality. JEL 06/22/2025 at 1738 EDT [facility] FINAL PERFORMING LABEllett Memorial HospitalComment on above:Diagnostic interpretation performed at: [facility], [address] [place] [address] CLIA# [id number] Patent Leather Sorter: Sergey Arenas MD [facility] GROSS DESCRIPTIONNOSaint Mary's Health CenterComment on above:A. Prostate, Resection Received fresh for intraoperative frozen diagnosis designated prostate capsule is a segment of red extensively cauterized soft tissue measuring 0.7 x 0.4 x 0.3 cm. The specimen is totally submittedfor frozen then for permanent cassette FSA1. BF 2025 1:30 PM Gross examination performed at [facility], [address] [place] [address] B. Colon, Sigmoid, Resection Received in formalin [...] The lesion is totally submitted along with training representative sections as follows: B1 perpendicular proximal [...] one possible lymph node in relation to perpendicular posterior circumferential (radial) margin, B17-B19 one possible lymph node bisected and totally submitted per cassette, B20 three possible lymph nodes totally submitted, B21 two possible lymph nodes totally submitted, B22- B31 colorectal soft tissue submitted for microscopic lymph node evaluation. BF 2025 3:00 PM Gross examination performed at [facility], [address] [place] [address] Additional sections of pericolonic fat are submitted in cassettes as B32-B51 for microscopic lymph node evaluation. WE June 24, 2025 9:48 AM Gross examination performed at [facility], [address] [place] [address] C. Colon, Resection Received in formalin designated distal donut is a donut that measures 0.8 cm in length and 1.5 cmin diameter. The mucosa is cabrales and granular. The specimen is entirely submitted in one cassette. WE June 20, 2025 11:02 AM Gross examination performed at [facility], [address] [place] [address] [facility] INTRAOPERATIVE DIAGNOSISNOMS HealthcareComment on above:A. Prostate, Resection FSA1: Negative for malignancy. (Dr. Arenas) Intraoperative diagnosis performed at [facility], [address] [place] [address] CLIA # [id number] [facility] SYNOPTIC REPORTNOMS HealthcareComment on above:COLON AND RECTUM: Resection COLON AND RECTUM: RESECTION - All Specimens 8th Edition - Protocol posted: 03/24/2024 SPECIMEN Procedure: Low anterior resection Macroscopic Evaluation of Mesorectum: Complete TUMOR Tumor Site: Rectum Rectal Tumor Location: Straddles anterior peritoneal reflection Histologic Type: Adenocarcinoma Histologic Grade: G2, moderately differentiated Tumor Size: Cannot be determined: Scattered foci of microscopic tumor discontinuously involve a 3.1cm area Tumor Extent: Invades through muscularis propria into the pericolonic or perirectal tissue Macroscopic Tumor Perforation: Not identified Lymphatic and / or Vascular Invasion: Present Perineural Invasion: Not identified Tumor Budding Score: Cannot be determined: Not applicable (posttreatment) Treatment Effect: Present, with residual cancer showing evident tumor regression, but more than single cells or rare small groups of cancer cells (partial response, score 2) MARGINS Margin Status for Invasive Carcinoma: All margins negative for invasive carcinoma Distance from Invasive Carcinoma to Radial (Circumferential) Margin: 11 mm Distance from Invasive Carcinoma to Distal Margin: 44 mm Margin Status for Non-Invasive Tumor: All margins negative for high-grade dysplasia / intramucosal carcinoma and low-grade dysplasia REGIONAL LYMPH NODES Regional Lymph Node Status: : Tumor present in regional lymph node(s) Number of Lymph Nodes with Tumor: 2 Number of Lymph Nodes Examined: 19 Tumor Deposits: Present Number of Tumor Deposits: 1 pTNM CLASSIFICATION (AJCC 8th Edition) Reporting of pT, pN, and (when applicable) pM categories is based on information available to the pathologist at the time the report is issued. As per the AJCC (Chapter 1, 8th Ed.) it is the managingphysician's responsibility to establish the final pathologic stage based upon all pertinent information, including but potentially not limited to this pathology report. Modified Classification: y pT Category: pT3 pN Category: pN1b Specimen Type: TISSUE SPECIMEN Ordering Facility: [facility] Address: [address] [place] [address] Original Ordering Provider: TERESA LINGSSM Health Cardinal Glenn[facility] Children's HospitalCNPNon 09-94-0826ZGOWOrjibyHbomotctr Clinic ClevelandCNPNon 76-88-3734SJCJZllafn [facility] metabolic 2000 panelon 45-41-9002Bmovx gap [Moles/Vol]10 mmol/LNormal8-15Fanorthampton state hospital HospitalComment on above:Order Comment: Specimen Type: BLOOD SPECIMENOrdering Facility: [facility] Address:[address] [place], [place] [address]Performed By: #### 2777-1, , 51155-5 ####CYRIL LABORATORYCLIA [id number] [place] [id number] [place] OF AMERICACalcium [Mass/Vol]8.1 mg/dLLow8.5-10.2Fair[facility] HospitalComment on above:Order Comment: Specimen Type: BLOOD SPECIMENOrdering Facility: [facility] Address:[address] [place], [place] [address]Performed By: #### 2777-1, , 89913-2 ####CYRIL LABORATORYCLIA [id number] [place] [address] [place] Chloride [Moles/Vol]107 mmol/JMkktrz48-095Uxkhgtnk HospitalComment on above: Order Comment: Specimen Type: BLOOD SPECIMENOrdering Facility: [facility] Address:[address] [place] [address]Hrdiianof By: #### 2777- 1, , ####CYRIL LABORATORYCLIA [id number] [place] [id number] [place] AMERICACO2 [Moles/Vol]22 mmol/DGsnxns49-48 [facility] on above:Order Comment: Specimen Type: BLOOD SPECIMENOrdering Facility: [facility] Address:[address] [place], [place] [address]Performed By: #### 2777-1, , ####CYRIL LABORATORYCLIA [id number] [place] [address] [place] AMERICACreatinine [Mass/Vol]0.65 mg/dLLow0.73-1.22[facility] on above:Order Comment: Specimen Type: BLOOD SPECIMENOrdering Facility: [facility] Address:[address] [place], [place] [address]Performed By: #### 2777-1, , ####CYRIL LABORATORYCLIA [id number] [place] [address] [place] AMERICAeGFRcr SerPlBld CKD-EPI 2020 103 mL/min/1.73m???Normal>=60[facility] on above:Order Comment: Specimen Type: BLOOD SPECIMENOrdering Facility: [facility] Address:[address] [place] [address]Zkwfhv Comment: Estimated Glomerular Filtration Rate (eGFR) is calculated using the 2020 CKD-EPI creatinine equation. This equation utilizes serum creatinine, sex, and age as parameters. The creatinine assay has traceable calibration to isotope dilution-mass spectrometry. Refer to KDIGO guidelines for clinical interpretation. In patients with unstable renal function, e.g. those with acute kidney injury, the eGFR may not accurately reflect actual GFR.Performed By: #### 2777-1, , ####CYRIL LABORATORYCLIA [id number] [place] [id number] [place] AMERICAGlucose [Mass/Vol]99 mg/dAUpzrdb93-91Octmcobl Hospital Comment on above:Order Comment: Specimen Type: BLOOD SPECIMENOrdering Facility: [facility] Address:[address] [place], [place] [address]Result Comment: The [place] Diabetes Association (ADA) provides guidance for cutoff [...] Standards of Medical Care in Diabetes 2016, [place] [employer] Association. Diabetes Care. 2016.39(Suppl 1).Performed By: #### 2777-1, , 68735-8 ####CYRIL LABORATORYCLIA [id number] [place] [address] [place] AMERICAPotassium [Moles/Vol]4.1 mmol/LNormal3.7-5.1 [facility] HospitalComment on above:Order Comment: Specimen Type: BLOOD SPECIMENOrdering Facility: [facility] Address:[address] [place], [place] [address]Performed By: #### 2777-1, , ####[facility] LABORATORYCLIA [id number] [place] [address] [place] AMERICASodium [Moles/Vol]139 mmol/OHxkpgf254-550Ovcftpzu HospitalComment on above:Order Comment: Specimen Type: BLOOD SPECIMENOrdering Facility: [facility] Address:[address] [place], [place] [address]Performed By: #### 2777-1, , ####[facility] LABORATORYCLIA [id number] [place] [address] [place] AMERICAUrea nitrogen [Mass/Vol]11 mg/dLNormal9-24Fanorthampton state hospital HospitalComment on above:Order Comment: Specimen Type: BLOOD SPECIMENOrdering Facility: [facility] Address:[address] [place], [place] [address]Performed By: #### 2777-1, 48054-4, 10421-5 ####CYRIL LABORATORYCLIA [id number] [place] [address] [facility]CBC panel Auto (Bld)on 16-06-7741Qlazdxwoqcb distribution width (RBC) [Ratio]12.2 %Ijfbms42.5-15.0Fanorthampton state hospital HospitalComment on above:Order Comment: Specimen Type: BLOOD SPECIMENOrdering Facility: [facility] Address:[address] [place], [place] [address]Performed By: #### 50335-7 ####CYRIL LABORATORYCLIA [id number] [place] [address] [facility] HUNTSVILLEHematocrit (Bld) [Volume fraction]37.7 %Low 39.0-51.0Keo HospitalComment on above:Order Comment: Specimen Type: BLOOD SPECIMENOrdering Facility: [facility] Address:[address] [place], [place] [address]Performed By: #### 21290-6 ####CYRIL LABORATORYCLIA [id number] [place] [address] [place] [facility] Hemoglobin (Bld) [Mass/Vol]12.3 g/dLLow13.0-17.0Keo HospitalComment on above:Order Comment: Specimen Type: BLOOD SPECIMENOrdering Facility: [facility] Address:[address] [place], [place] [address]Performed By: #### 72313-9 ####CYRIL LABORATORYCLIA [id number] [place] [address] [place] LUTHERAN HOSPITALMCH (RBC) [Entitic mass]31.5 uiElbmwi88.0-34.0 Keo HospitalComment on above:Order Comment: Specimen Type: BLOOD SPECIMENOrdering Facility: [facility] Address:[address] [place], [place] [address]Performed By: #### 05315-0 ####CYRIL LABORATORYCLIA [id number] [place] [address] [facility] HUNTSVILLEMCHC (RBC) [Mass/Vol]32.6 g/cAZtgmaf94.5-36.0Fanorthampton state hospital HospitalComment on above:Order Comment: Specimen Type: BLOOD SPECIMENOrdering Facility: [facility] Address:[address] [place], [place] [address]Performed By: #### 90040- 2 ####CYRIL LABORATORYCLIA [id number] [place] [address] [facility] HUNTSVILLEMCV (RBC) [Entitic vol]96.7 rJTmvhzp85.0-100.0Fanorthampton state hospital HospitalComment on above:Order Comment: Specimen Type: BLOOD SPECIMENOrdering Facility: [facility] Address:[address] [place], [place] [address]Performed By: #### 23911-0 ####CYRIL LABORATORYCLIA [id number] [address]ETucleated RBC (Bld) [#/Vol]10*3/uLNormal<0.01Fanorthampton state hospital HospitalComment on above:Order Comment: Specimen Type: BLOOD SPECIMENOrdering Facility: [facility] Address:[address] [place], [place] [address]Performed By: #### 32194-5 ####CYRIL LABORATORYCLIA [id number] [place] [address] [facility] HUNTSVILLEPlatelet mean volume (Bld) [Entitic vol]9.5 fLNormal 9.0-12.7Fboston medical center HospitalComment on above:Order Comment: Specimen Type: BLOOD SPECIMENOrdering Facility: [facility] Address:[address] [place], [place] [address]Performed By: #### 73068-0 ####CYRIL LABORATORYCLIA [id number] [place] [address] [facility] [place] Platelets (Bld) [#/Vol]178 10*3/jVBvokvq295-059Wwbrtyap HospitalComment on above:Order Comment: Specimen Type: BLOOD SPECIMENOrdering Facility: [facility] Address:[address] [place], [place] [address]Performed By: #### 55823-3 ####LORENZOROBERTO LABORATORYCLIA [id number] [place] [address] [facility] CARE HUNTSVILLERB (Bld) [#/Vol]3.90 10*6/uLLow4.20-6.00Keo HospitalSaint John'S [facility] on above:Order Comment: Specimen Type: BLOOD SPECIMENOrdering Facility: [facility] Address:[address] [place], [place] [address]Performed By: #### 86756-2 ####LORENZOROBERTO LABORATORYCLIA [id number] [address]W (Bld) [#/Vol]6.38 10*3/uLNormal3.70-11.00Keo HospitalComascension standish hospital on above:Order Comment: Specimen Type: BLOOD SPECIMENOrdering Facility: [facility] Address:[address] [place], [place] [address]Performed By: #### 81971-2 ####LORENZOROBERTO LABORATORYCLIA [id number] [place] [address] [facility] HUNTSVILLECNDS 85-60-7047NVFITYI ID: [id number] Author: PINO KO MD Service: Colorectal Author Type: Resident Type: Discharge Summary Filed: 06/20/2025 16:29 Note Text: Attestation signed by Lam Martin MD at 06/23/2025 8:28 AM Attending Note: Discharge summary reviewed and agree. Lam Martin MD DISCHARGE SUMMARY PATIENT NAME: Bentley Gonzalez ADMISSION DATE: 2025 DISCHARGE DATE: 06/20/2025 ATTENDING PHYSICIAN: Teresa Tucker MD Code Status: Not on file Highest Readmission Risk Score: 12 The 30 day readmissions risk score is derived from an internally validated risk model which evaluates patient level characteristics, utilization history, medication orders and lab results up until the day of discharge. Patients with a score of 39 or above are considered highest risk for readmission. Specific patient level drivers will be listed at the bottom of the summary. CONSULTING TEAMS DURING HOSPITALIZATION: None Treatment Team: Attending Provider: Teresa Tucker MD REASON FOR HOSPITALIZATION: scheduled surgery Active Hospital Problems Diagnosis POA Rectal cancer (HCC) Yes Resolved Hospital Problems No resolved problems to display. OPERATIONS DURING HOSPITALIZATION: Robotic low anterior resection with diverting loop ileostomy PROCEDURES DURING HOSPITALIZATION: No procedures performed HOSPITAL COURSE: Patient presented for scheduled surgery on 2025 that occurred without any complications. He was transferred to the regular nursing floor. His diet was advanced to clears and he was tolerating a GI soft diet on 06/19/2025. He was ambulating and urinating without difficulty. His ostomy began having stool output by 06/20/2025. He was discharged home on oral medication and starting eliquis for dvt ppx. Ostomy care education was given. Colectomy SSI Bundle Reporting: Was this an elective case: Yes Which of the following did the patient complete pre-operatively? Combined Oral Antibiotic Bowel Prep and CHG wash or wipes Transitions of Care Critical Issues: Home with [facility] new DLI LABS AND PROCEDURES PENDING AT DISCHARGE: Pathology Results (surgical) PATIENT CONDITION AT DISCHARGE: Stable DISCHARGE DISPOSITION: Home with Home Health Discharge Physical Exam: VITAL SIGNS: BP 114/70 Pulse 69 Temp 36.4 ?C (97.5 ?F) (Oral) Resp 18 Ht 167.6 cm (5' 6 ) Wt 52.6 kg (116 lb) SpO2 94% BMI 18.72 kg/m? INFORMATION PROVIDED TO PATIENT: discharge instructions ALLERGIES No Known Allergies DISCHARGE MEDICATION: Medication List START taking these medications acetaminophen 500 mg tablet Commonly known as: TYLENOL Take 2 tablets by mouth every 6 hours. apixaban 2.5 mg tab(s) Commonly known as: ELIQUIS Take 1 tablet by mouth two times a day for 21 days. ibuprofen 400 mg tablet Commonly known as: MOTRIN Take 1 tablet by mouth every 8 hours. lactobacillus rhamnosus 10 billion cell capsule Commonly known as: CULTURELLE Take 1 capsule by mouth once daily. methocarbamol 500 mg tablet Commonly known as: ROBAXIN Take 1 tablet by mouth three times a day as needed. oxyCODONE IR 5 mg immediate release tablet Commonly known as: ROXICODONE Take 1 tablet by mouth every 6 hours as needed for up to 7 days. STOP taking these medications metroNIDAZOLE 500 mg tablet Commonly known as: FLAGYL MIRALAX 17 gram/dose powder Generic drug: polyethylene glycol 3350 neomycin 500 mg tablet Where to Get Your Medications These medications were sent to [facility] [address] [place] [address] Hours: Friday-Friday: 7am-7pm, Sat: 9am-1pm acetaminophen 500 mg tablet apixaban 2.5 mg tab(s) ibuprofen 400 mg tablet lactobacillus rhamnosus 10 billion cell capsule methocarbamol 500 mg tablet oxyCODONE IR 5 mg immediate release tablet FUTURE APPOINTMENTS: Follow Up with Dr. Tucker The patient's risk for 30-day readmission is determined using the following contributing factors: Predictive Model Details 8% (Low) Factor Value Calculated 06/20/2025 05:25 -18% diagnosis count 5 [facility] READMISSION RISK Model 15% Appointments (365d) 33 -13% Zip Code [address] -10% RDW (Max) 12.6 -8% ED visits (365d) 0 7% Admission Provider Speciality COLON AND RECTAL SURGERY -5% RDW (Avg) 12.45 -5% Admissions (365d) 1 -5% ED Encounter 0 -5% Albumin (Avg) N/A Plan of care discussed with Provider, RN, Patient I spent a total of 50 minutes on the date of the service which included preparing to see the patient, dazq-cl-kjud patient care, completing clinical documentation, obtaining and/or reviewing separately obtained history, performing a medically appropriate examination, and care coordination (not separately reported). SIGNATURE: Alejandra Mcgarry (more content not included)...[facility] CONSULT PROGon [id number] EVELIN ID: [id number] Author: CORTNEY CAO APRN.CNP Service: Wound/Ostomy Author Type: Nurse Practitioner Type: Consult Progress Note Filed: 06/20/2025 12:22 Note Text: STOMA CARE POST-OPERATIVE ASSESSMENT AND PATIENT EDUCATION Patient Name: Bentley Gonzalez Date: June 20, 2025 Time: 10:40 AM ET Care Outcome: ostomy assessment and review, pouch changed by patient ET's Next Scheduled Visit: complete, patient to be discharged today STOMA ASSESSMENT Stoma type: End ileostomy Diameter: 40 mm Location: RLQ Protrusion: Budded Mucosal condition and color: Red and moist. Esteban: No Mucocutaneous Junction: Intact Output: Yes: Flatus and brown liquid Effluent, emptied for 300 cc Peristomal Skin: Clear and intact Location of Skin Impairment: NA Treatment of Skin Impairment: NA Supportive Tissue: Semisoft Pouching System: Coloplast Sensura one piece, cut-to-fit, drainable pouch (#74316) with a moldable ring INCISION Degree of approximation: Lap sites Approximating devices: Surgical Glue Drainage: None Method of Management: MARIANA Drain: Yes Type: JENNIFER Location: LLQ Drainage color: SS Method of Management: Dry sterile dressing Time Increment: 30 minutes Comments: Patient had no issues with pouch leaking over the weekend. Patient reports he has been watching nurses empty the pouch, and then emptied it himself a few times. Patient interested in performing pouch change today and did so successfully with minimal verbal prompts. Patient has no concerns and verbalizes comfort in home-going and managing ostomy independently. Supplies Given: Yes: one piece drainable pouches, moldable rings, measuring guides, 4x4s PATIENT EDUCATION Skin Care Topic: Prevention Dressing/ointments Observations READINESS TO LEARN Cognitive Ability: Alert and oriented Motivation to Learn: Eager Interested Family Support: Unable to assess - Family not present Instruction Provided To: Patient Patient Learns Best By: Multiple Methods Factors Affecting Learning: None Physical Limitations Affecting Learning: None LEARNING RESPONSE Diagnosis- Skin Impairment: Surgical Method of Instruction: Written instruction/Handouts Verbal instruction Demonstration/Hands on Learning Instructional Aids Used: Hand-out(s), patient has been reviewing booklet Patient/Family Response: Performs skill independently: Patient emptied pouch, and then performed pouch removal and application of new appliance during today's visit. Verbalizes understanding of: Changing appliance every 3-4 days, emptying pouch when 1/3 - 1/2 full, care of peristomal skin, diet/fluids and activity, how to order supplies FOLLOW-UP PLAN: Complete Supplemental Material Provided to Patient: Booklet Referral Recommendation: Home Health Agency Signature: Cortney Cao APRN.CNP This is an electronically created document. IF PRINTED, PLEASE DO NOT REMOVE FROM THE CHART OR MODIFY PRINTED COPY.Normal Keo HospitalMagnesium SerPl-mCncon 44-60-7473Qezenkpyh [Mass/Vol]1.8 mg/dL Normal1.7-2.3Fboston medical center HospitalComment on above:Order Comment: Specimen Type: BLOOD SPECIMENOrdering Facility: [facility] Address:[address] [place], [place] [address]Performed By: #### 2777-1, 71136-8, 14541-2 ####[facility] LABORATORYCLIA [id number] [place] [address] [place] OF AMERICAPhosphate SerPl-mCncon 11-25-9200Jbitpwqnf [Mass/Vol]3.3 mg/dLNormal2.7-4.8FaPaul A. Dever State SchoolComment on above:Order Comment: Specimen Type: BLOOD SPECIMENOrdering Facility: [facility] Address:[address] [place], [place] [address]Performed By: #### 2777-1, 18189-6, 89640-2 ####DARIEN LABORATORYCLIA [id number] [place] [address] [place] OF AMERICATHERAPY NTon 15-82-0920ZWFLOMW NTHNO ID: [id number] Author: ESHA JAIME PT Service: Physical Therapy Author Type: Physical Therapist Type: Therapy (PT/OT/Speech/Resp) Filed: 06/20/2025 14:14 Note Text: PHYSICAL THERAPY MISSED VISIT SERVICE DATE: 06/20/2025 SERVICE TIME: ROOM: [place] [id number] Therapy Communication Chart reviewed. Patient appears to be at baseline. The order for this therapy discipline has been discontinued. Please contact the department at [phone] with any questions. SIGNATURE: Esha Jaime PT PATIENT NAME: Bentley Gonzalez DATE: June 20, 2025 TIME: 2:13 [facility]ormalKeo HospitalTHERAPY NTHNO ID: [id number] Author: SARAH CLINE OT/L Service: Occupational Therapy Author Type: Occupational Therapist Type: Therapy (PT/OT/Speech/Resp) Filed: 06/20/2025 11:19 Note Text: Therapy Communication Chart reviewed and discussed with patient. Patient has no Skilled OT needs at this time. The order for this therapy discipline has been discontinued. Please contact the department at [phone] with any questions.NormalRoslindale General HospitalBasic metabolic 2000 panelon 67-81-5996Uvhap gap [Moles/Vol]10 mmol/LNormal8-15 Keo HospitalComment on above:Order Comment: Specimen Type: BLOOD SPECIMENOrdering Facility: [facility] Address:[address] [place], [place] [address]Performed By: #### 81226-7, 2776-10, ####[facility] LABORATORYCLIA [id number] [place] [address] [place] AMERICACalcium [Mass/Vol]8.3 mg/dLLow8.5-10.2Fboston medical center HospitalComment on above: Order Comment: Specimen Type: BLOOD SPECIMENOrdering Facility: [facility] Address:[address] [place], [place] [address]Performed By: #### 69338- 2, 27704-05, ####[facility] LABORATORYCLIA [id number] [place] [address] [place] OF AMERICAChloride [Moles/Vol]106 mmol/L Eklidp05-439Tonqfdid HospitalComment on above:Order Comment: Specimen Type: BLOOD SPECIMENOrdering Facility: [facility] Address:[address] [place], [place] [address]Performed By: #### 69729-7, 2776-10, ####CYRIL LABORATORYCLIA [id number] [place] [address] [place] AMERICACO2 [Moles/Vol]22 mmol/CLywcfa38-09Odmczcoo Hospital Comment on above:Order Comment: Specimen Type: BLOOD SPECIMENOrdering Facility: [facility] Address:[address] [place] [address] Performed By: #### 15542-0, 2776-10, ####CYRIL LABORATORYCLIA [id number] [place] [address] [place] Creatinine [Mass/Vol]0.78 mg/dLNormal0.73-1.22Roslindale General HospitalComment on above: Order Comment: Specimen Type: BLOOD SPECIMENOrdering Facility: [facility] Address:[address] [place], [place] [address]Performed By: #### 56682- 2, 2776-10, ####CYRIL LABORATORYCLIA [id number] [place] [id number] [place] OF AMERICAeGFRcr SerPlBld CKD-EPI 687001 mL/min/1.73m???Normal>=60FaPaul A. Dever State SchoolComment on above:Order Comment: Specimen Type: BLOOD SPECIMENOrdering Facility: [facility] Address:[address] [place], [place] [address]Result Comment: Estimated Glomerular Filtration Rate (eGFR) is calculated using the 2020 CKD-EPI creatinine equation. This equation utilizes serum creatinine, sex, and age as parameters. The creatinine assay has traceable calibration to isotope dilution-mass spectrometry. Refer to KDIGO guidelines for clinical interpretation. In patients with unstable renal function, e.g. those with acute kidney injury, the eGFR may not accurately reflect actual GFR.Performed By: #### 55718-0, 27704-05, ####CYRIL LABORATORYCLIA [id number] [place] [address] [place] AMERICAGlucose [Mass/Vol]84 mg/dEOumnpf85-22Hyrtmxcx Hospital Comment on above:Order Comment: Specimen Type: BLOOD SPECIMENOrdering Facility: [facility] Address:[address] [place], [place] [address]Hkzvxj Comment: The [place] Diabetes Association (ADA) provides guidance for cutoff [...] Standards of Medical Care in Diabetes 2016, [place] [employer]. Diabetes Care. 2016.39(Suppl 1).Performed By: #### 61512-9, 2776-10, ####CYRIL LABORATORYCLIA [id number] [place] [address] [place] OF AMERICAPotassium [Moles/Vol]4.3 mmol/LNormal3.7-5.1 [facility]ale [facility] HospitalComment on above:Order Comment: Specimen Type: BLOOD SPECIMENOrdering Facility: [facility] Address:[address] [place] [address]Fvmpjciuw By: #### 46457-4, 2776-10, ####CYRIL LABORATORYCLIA [id number] [place] [address] [place] OF AMERICASodium [Moles/Vol]138 mmol/ECmdxua377-253Umoaanst HospitalComment on above:Order Comment: Specimen Type: BLOOD SPECIMENOrdering Facility: [facility] Address:[address] [place], [place] [address]Xtkswguru By: #### 97265-4, 2776-10, ####CYRIL LABORATORYCLIA [id number] [place] [address] [place] AMERICAUrea nitrogen [Mass/Vol]14 mg/dLNormal9-24Roslindale General HospitalComment on above:Order Comment: Specimen Type: BLOOD SPECIMENOrdering Facility: [facility] Address:[address] [place], [place] [address]Performed By: #### 49534-9, 2777-1, 29439-7 ####CYRIL LABORATORYCLIA [id number] [place] [address] UNITED [facility] HOSPITALCBC panel Auto (Bld)on 71-38-9869Mebnqlrdpld distribution width (RBC) [Ratio]12.3 %Hnhlvm09.5-15.0Fanorthampton state hospital HospitalComment on above:Order Comment: Specimen Type: BLOOD SPECIMENOrdering Facility: [facility] Address:[address] [place], [place] [address]Performed By: #### 94500-4 ####CYRIL LABORATORYCLIA [id number] [address]ETHematocrit (Bld) [Volume fraction]35.4 %Low 39.0-51.0Fanorthampton state hospital HospitalComment on above:Order Comment: Specimen Type: BLOOD SPECIMENOrdering Facility: [facility] Address:[address] [place], [place] [address]Performed By: #### 56075-4 ####CYRIL LABORATORYCLIA [id number] [address] STATES OF [facility] Hemoglobin (Bld) [Mass/Vol]11.6 g/dLLow13.0-17.0Keo HospitalComment on above:Order Comment: Specimen Type: BLOOD SPECIMENOrdering Facility: [facility] Address:[address] [place], [place] [address]Performed By: #### 06646-6 ####CYRIL LABORATORYCLIA [id number] [place] [address] [facility] HUNTSVILLEMCH (RBC) [Entitic mass]32.5 loZvqpjz73.0-34.0 Keo HospitalComment on above:Order Comment: Specimen Type: BLOOD SPECIMENOrdering Facility: [facility] Address:[address] [place], [place] [address]Performed By: #### 27892-9 ####CYRIL LABORATORYCLIA [id number] [address]OR[address]LL[address]REETHC (RBC) [Mass/Vol]32.8 g/fWScohik92.5-36.0Fanorthampton state hospital HospitalComment on above:Order Comment: Specimen Type: BLOOD SPECIMENOrdering Facility: [facility] Address:[address] [place], [place] [address]Performed By: #### 01946- 2 ####CYRIL LABORATORYCLIA [id number] [address]ETMCV (RBC) [Entitic vol]99.2 sBUxpzth61.0-100.0Fanorthampton state hospital HospitalComment on above:Order Comment: Specimen Type: BLOOD SPECIMENOrdering Facility: [facility] Address:[address] [place], [place] [address]Performed By: #### 46247-9 ####CYRIL LABORATORYCLIA [id number] [address]ucleated RBC (Bld) [#/Vol]10*3/uLNormal<0.01Fanorthampton state hospital HospitalComment on above:Order Comment: Specimen Type: BLOOD SPECIMENOrdering Facility: [facility] Address:[address] [place], [place] [address]Performed By: #### 08812-7 ####CYRIL LABORATORYCLIA [id number] [address]ETPlatelet mean volume (Bld) [Entitic vol]9.7 fLNormal 9.0-12.7Fboston medical center HospitalComment on above:Order Comment: Specimen Type: BLOOD SPECIMENOrdering Facility: [facility] Address:[address] [place], [place] [address]Performed By: #### 00639-6 ####CYRIL LABORATORYCLIA [id number] [address] Platelets (Bld) [#/Vol]152 10*3/bHHnqtft247-475Ggmjbbrf HospitalComment on above:Order Comment: Specimen Type: BLOOD SPECIMENOrdering Facility: [facility] Address:[address] [place], [place] [address]Performed By: #### 50440-6 ####CYRIL LABORATORYCLIA [id number] [place] [address] [facility] AMERICARBC (Bld) [#/Vol]3.57 10*6/uLLow4.20-6.00Fanorthampton state hospital HospitalComment on above:Order Comment: Specimen Type: BLOOD SPECIMENOrdering Facility: [facility] Address:[address] [place], [place] [address]Performed By: #### 06931-1 ####CYRIL LABORATORYCLIA [id number] [place] [address] [place] OF AMERICAWBC (Bld) [#/Vol]6.73 10*3/uLNormal3.70-11.00Keo HospitalComment on above:Order Comment: Specimen Type: BLOOD SPECIMENOrdering Facility: [facility] Address:[address] [place], [place] [address]Performed By: #### 58410-7 ####CYRIL LABORATORYCLIA [id number] [place] [address] [place] AMERICAMagnesium SerPl-mCncon 49-89-0321Cdmswylpc [Mass/Vol]1.9 mg/dLNormal 1.7-2.3Fboston medical center HospitalComment on above:Order Comment: Specimen Type: BLOOD SPECIMENOrdering Facility: [facility] Address:[address] [place], [place] [address]Performed By: #### 35288-6, 2777, ####CYRIL LABORATORYCLIA [id number] [place] [address] [place] AMERICAPhosphate SerPl-mCncon 17-68-5797Tnoappghe [Mass/Vol]1.9 mg/dLLow2.7-4.8 Keo HospitalComment on above:Order Comment: Specimen Type: BLOOD SPECIMENOrdering Facility: [facility] Address:[address] [place], [place] [address]Performed By: #### 26023-5, 2777-, ####CYRIL LABORATORYCLIA [id number] [place] [address] [place] AMERICABasic metabolic 2000 panelon 52-42-4554Cxxrf gap [Moles/Vol]8 mmol/L Normal8-15FaPaul A. Dever State SchoolComment on above:Order Comment: Specimen Type: BLOOD SPECIMENOrdering Facility: [facility] Address:[address] [place], [place] [address]Performed By: #### 11441-9, 17041-9, 7- ####CYRIL LABORATORYCLIA [id number] [place] [address] [place] AMERICACalcium [Mass/Vol]8.0 mg/dLLow8.5-10.2Fboston medical center HospitalComment on above: Order Comment: Specimen Type: BLOOD SPECIMENOrdering Facility: [facility] Address:[address] [place], [place] [address]Performed By: #### 50719- 9, 78936-3, 2776- ####CYRIL LABORATORYCLIA [id number] [place] [address] [place] AMERICAChloride [Moles/Vol]105 mmol/L Qlizhh26-838Kjomvbku HospitalComment on above:Order Comment: Specimen Type: BLOOD SPECIMENOrdering Facility: [facility] Address:[address] [place], [place] [address]Performed By: #### 92468-9, 49504-3, 2776- ####CYRIL LABORATORYCLIA [id number] [place] [address] [place] AMERICACO2 [Moles/Vol]23 mmol/JVguhux83-43Qphmspaw Hospital Comment on above:Order Comment: Specimen Type: BLOOD SPECIMENOrdering Facility: [facility] Address:[address] [place] [address] Performed By: #### 70986-3, 10973-7, 2777-1 ####CYRIL LABORATORYCLIA [id number] [place] [address] [place] Creatinine [Mass/Vol]0.76 mg/dLNormal0.73-1.22Fairview HospitalComment on above: Order Comment: Specimen Type: BLOOD SPECIMENOrdering Facility: [facility] Address:[address] [id number] By: #### 95294- 9, 86925-1, 2776- ####CYRIL LABORATORYCLIA [id number] [place] [address] [place] AMERICAeGFRcr SerPlBld CKD-EPI 029489 mL/min/1.73m???Normal>=60FaPaul A. Dever State SchoolComment on above:Order Comment: Specimen Type: BLOOD SPECIMENOrdering Facility: [facility] Address:[address] [place], [place] [address] [id number] Comment: Estimated Glomerular Filtration Rate (eGFR) is calculated using the 2020 CKD-EPI creatinine equation. This equation utilizes serum creatinine, sex, and age as parameters. The creatinine assay has traceable calibration to isotope dilution-mass spectrometry. Refer to KDIGO guidelines for clinical interpretation. In patients with unstable renal function, e.g. those with acute kidney injury, the eGFR may not accurately reflect actual GFR.Performed By: #### 37634-0, 48365-2, 2776- ####CYRIL LABORATORYCLIA [id number] [place] [address] [place] AMERICAGlucose [Mass/Vol]106 mg/gZBgno61-82Zarbwawg[address] Comment on above:Order Comment: Specimen Type: BLOOD SPECIMENOrdering Facility: [facility] Address:[address] [place], [place] [address]Iprxba Comment: The [place] Diabetes Association (ADA) provides guidance for cutoff [...] Standards of Medical Care in Diabetes 2016, [place] [employer] Association. Diabetes Care. 2016.39(Suppl 1).Performed By: #### 17156-2, 68738- 2, 2777- ####CYRIL LABORATORYCLIA [id number] [place] [address] [place] AMERICAPotassium [Moles/Vol]4.2 mmol/LNormal3.7-5.1 Keo HospitalComment on above:Order Comment: Specimen Type: BLOOD SPECIMENOrdering Facility: [facility] Address:[address] [place], [place] [address]Performed By: #### 20546-5, 70814-2, 2776- ####CYRIL LABORATORYCLIA [id number] [place] [address] [facility] HUNTSVILLESodium [Moles/Vol]136 mmol/QIzbdjx367-981Udqjudiz HospitalComment on above:Order Comment: Specimen Type: BLOOD SPECIMENOrdering Facility: [facility] Address:[address] [place], [place] [address]Performed By: #### 79838-4, 55031-5, 2776- ####CYRIL LABORATORYCLIA [id number] [place] [address] [place] AMERICAUrea nitrogen [Mass/Vol]13 mg/dLNormal9-24Fanorthampton state hospital HospitalComment on above:Order Comment: Specimen Type: BLOOD SPECIMENOrdering Facility: [facility] Address:[address] [place], [place] [address]Performed By: #### 25128-1, 16198-3, 2776-10 ####CYRIL LABORATORYCLIA [id number] [place] [address] [facility] HOSPITALCBC panel Auto (Bld)on 26-26-0735Pwrqtaqwfaw distribution width (RBC) [Ratio]12.6 %Hdaccv16.5-15.0Fanorthampton state hospital HospitalComment on above:Order Comment: Specimen Type: BLOOD SPECIMENOrdering Facility: [facility] Address:[address] [place], [place] [address]Performed By: #### 12226-5 ####CYRIL LABORATORYCLIA [id number] [address]ETHematocrit (Bld) [Volume fraction]33.6 %Low 39.0-51.0Fanorthampton state hospital HospitalComment on above:Order Comment: Specimen Type: BLOOD SPECIMENOrdering Facility: [facility] Address:[address] [place], [place] [address]Performed By: #### 59664-7 ####CYRIL LABORATORYCLIA [id number] [place] [address] [place] Hemoglobin (Bld) [Mass/Vol]11.3 g/dLLow13.0-17.0Fanorthampton state hospital HospitalComment on above:Order Comment: Specimen Type: BLOOD SPECIMENOrdering Facility: [facility] Address:[address] [place], [place] [address]Performed By: #### 95065-4 ####CYRIL LABORATORYCLIA [id number] [address] (RBC) [Entitic mass]32.6 ecHolnao39.0-34.0 Keo HospitalComment on above:Order Comment: Specimen Type: BLOOD SPECIMENOrdering Facility: [facility] Address:[address] [place], [place] [address]Performed By: #### 04356-6 ####CYRIL LABORATORYCLIA [id number] [place] [address] [facility] HOSPITALMCHC (RBC) [Mass/Vol]33.6 g/sSPfgonz38.5-36.0Fanorthampton state hospital HospitalComment on above:Order Comment: Specimen Type: BLOOD SPECIMENOrdering Facility: [facility] Address:[address] [place], [place] [address]Performed By: #### 26702- 2 ####CYRIL LABORATORYCLIA [id number] [address]MC (RBC) [Entitic vol]96.8 iYMlhttb60.0-100.0Fanorthampton state hospital HospitalComment on above:Order Comment: Specimen Type: BLOOD SPECIMENOrdering Facility: [facility] Address:[address] [place], [place] [address]Performed By: #### 98327-3 ####LORENZOROBERTO LABORATORYCLIA [id number] [place] [address] [place] AMERICANucleated RBC (Bld) [#/Vol]10*3/uLNormal<0.01Fanorthampton state hospital HospitalComment on above:Order Comment: Specimen Type: BLOOD SPECIMENOrdering Facility: [facility] Address:[address] [place], [place] [address]Performed By: #### 43987-2 ####LORENZOROBERTO LABORATORYCLIA [id number] [place] [address] [facility] OF AMERICAPlatelet mean volume (Bld) [Entitic vol]9.3 fLNormal 9.0-12.7Fboston medical center HospitalComment on above:Order Comment: Specimen Type: BLOOD SPECIMENOrdering Facility: [facility] Address:[address] [place], [place] [address]Performed By: #### 91826-4 ####[facility] LABORATORYCLIA [id number] [place] [address] [place] Platelets (Bld) [#/Vol]148 10*3/zGDbh492-683Fvdveisf HospitalComment on above: Order Comment: Specimen Type: BLOOD SPECIMENOrdering Facility: [facility] Address:[address] [place], [place] [address]Performed By: #### 14369- 2 ####CYRIL LABORATORYCLIA [id number] [place] [address] [place] AMERICARBC (Bld) [#/Vol]3.47 10*6/uLLow4.20-6.00Fanorthampton state hospital HospitalComment on above:Order Comment: Specimen Type: BLOOD SPECIMENOrdering Facility: [facility] Address:[address] [place], [place] [address]Performed By: #### 63555-6 ####CYRIL LABORATORYCLIA [id number] [place] [id number] [place] OF AMERICAWBC (Bld) [#/Vol]8.60 10*3/uLNormal3.70-11.00Keo HospitalComment on above:Order Comment: Specimen Type: BLOOD SPECIMENOrdering Facility: [facility] Address:[address] [id number] By: #### 08599-2 ####LORENZOVIEW LABORATORYCLIA [id number] [place] [address] [facility] HUNTSVILLECONSULTon [id number] ID: [id number] Author: TAVON MORRELL RN Service: ? Author Type: Registered Nurse Type: Consults Filed: 06/18/2025 10:58 Note Text: STOMA CARE POST-OPERATIVE ASSESSMENT AND PATIENT EDUCATION Patient Name: Bentley Gonzalez Date: June 18, 2025 Time: 10:57 AM ET Care Outcome: ostomy education and assessment ET's Next Scheduled Visit: Wednesday 06/20 anytime for pouch change lesson hands on STOMA ASSESSMENT Stoma type: End ileostomy Diameter: 40 mm Location: RLQ Protrusion: Budded Mucosal condition and color: Red and moist. Esteban: No Mucocutaneous Junction: Intact Output: Yes: Flatus and Effluent Peristomal Skin: Clear and intact Location of Skin Impairment: NA Treatment of Skin Impairment: NA Supportive Tissue: Semisoft Pouching System: Coloplast Sensura one piece cut to fit drainable pouch (#59004) with a moldable ring Time Increment: 1 hour Comments: NA Supplies Given: No PATIENT EDUCATION Skin Care Topic: Prevention Observations READINESS TO LEARN Cognitive Ability: Alert and oriented Motivation to Learn: Eager Interested Family Support: Unable to assess - Family not present Instruction Provided To: Patient Patient Learns Best By: Multiple Methods Factors Affecting Learning: None Physical Limitations Affecting Learning: None LEARNING RESPONSE Diagnosis- Skin Impairment: NA Method of Instruction: Written instruction/Handouts Verbal instruction Demonstration/Hands on Learning Instructional Aids Used: Hand-out(s) Patient/Family Response: - Pt verbalized understanding and wants to try it hands on this next time through FOLLOW-UP PLAN: Reassess Reinforce Supplemental Material Provided to Patient: Patient Education print outs: Referral Recommendation: Home Health Agency Signature: Tavon Morrell RN This is an electronically created document. IF PRINTED, PLEASE DO NOT REMOVE FROM THE CHART OR MODIFY PRINTED COPY.Normal Keo HospitalMagnesium SerPl-mCncon 64-48-7315Thgpiwmgy [Mass/Vol]2.1 mg/dL Normal1.7-2.3FairLong Island Jewish Medical CenterComment on above:Order Comment: Specimen Type: BLOOD SPECIMENOrdering Facility: [facility] Address:[address] [place], [place] [address]Performed By: #### 22009-6, 44665-9, 2777-1 ####DARIEN LABORATORYCLIA [id number] [place] [address] [place] OF AMERICAPhosphate SerPl-mCncon 90-09-7093Tmljonflx [Mass/Vol]2.7 mg/dLNormal2.7-4.8FaPaul A. Dever State SchoolComment on above:Order Comment: Specimen Type: BLOOD SPECIMENOrdering Facility: [facility] Address:[address] [place], [place] [address]Performed By: #### 04776-4, 26497-5, 2777-1 ####DARIEN LABORATORYCLIA [id number] [place] [address] [place] AMERICAANES POSTPROC EVALon [id number] POSTPROC EVALHNO ID: [id number] Author: FABRICIO GRANDE MD Service: Anesthesiology Author Type: Anesthesiologist Type: Anesthesia Postprocedure Evaluation Filed: 2025 16:22 Note Text: POST ANESTHESIA EVALUATION NOTE : 1960 Procedure Summary Date: 06/17/25 Room / Location: [place] [address] / OR Anesthesia Start: 737 Anesthesia Stop: 1537 Procedures: ROBOTIC LAPAROSCOPIC HEMICOLECTOMY WITH ANASTOMOSIS,COLOPROCTOSTOMY AND COLOSTOMY, flexiable sigmoidoscopy (Abdomen) medi port removal Diagnosis: Rectal cancer (HCC) (Rectal cancer (HCC) [C20]) Surgeons: Teresa Tucker MD Responsible Provider: Fabricio Grande MD Anesthesia Type: general ASA Status: 2 Anesthesia Type: general Airway Type: ETT Last Vitals Vitals Value Taken Time BP 122/85 06/17/25 16:15 Temp 36 ?C (96.8 ?F) 06/17/25 15:42 Pulse 103 06/17/25 16:21 Resp 11 06/17/25 16:21 SpO2 94 % 06/17/25 16:21 Vitals shown include unfiled device data. Post Anesthesia Patient Status Patient Evaluation: PACU. PACU/ICU Patient Condition: stable. Anticipated Disposition: inpatient floor planned admission. Neurological Status: aware and responsive. Pulmonary Status: breathing comfortably on room air Airway Control: returned to baseline unsupported. Cardiovascular Status: stable. Pain Management: clinically adequate - multimodal analgesia pain management approach Postoperative Hydration: acceptable. Intraoperative Events: no significant anesthesia events Post Operative Nausea/Vomiting Status: no significant post operative nausea or vomiting Recommendation: continue current plan of care and further care per PACU/ICU/floor team. Anesthesia Observations No Documentation SIGNATURE: Fabricio Grande MD PATIENT NAME: Bentley Gonzaelz DATE: 2025 TIME: 4:22 PM CSN: [id number] Maria Hospital PRE-OPon [id number] PRE-OPHNO ID: [id number] Author: MICHELLE MICHELLE MD Service: Pain Management Author Type: Physician Type: Anesthesia Preprocedure Evaluation Filed: 2025 07:14 Note Text: ANESTHESIOLOGY DAY OF SURGERY NOTE : 1960 Procedure Information Date/Time: 06/17/25729 Procedure: ROBOTIC LAPAROSCOPIC HEMICOLECTOMY WITH ANASTOMOSIS,COLOPROCTOSTOMY AND COLOSTOMY (Abdomen) - Robotic LAR - low anterior colon resection with colostomy Location: OR01A / OR Surgeons: Teresa Tucker MD Estimated body mass index is 18.86 kg/m? as calculated from the following: Height as of 06/10/25: 167.6 cm (5' 6 ). Weight as of 06/10/25: 53 kg (116 lb 13.5 oz). Most recent hematocrit and potassium results: Hematocrit 37.9 05/27/2025 Potassium 3.9 05/27/2025 Relevant Problems CARDIO (+) Benign essential hypertension I - PHYSICAL EVALUATION AIRWAY Patient intubated: No. Tracheostomy tube not present Mallampati: II. TM distance: >3 FB. Neck ROM: full ROM without neurological symptoms. Mouth openin FB. Short neck: no. Thick neck: no DENTAL Dental findings: edentulous. II - ANESTHESIA PLAN ASA Score: 2 Anesthetic Plan: general Airway type: ETT The patient is a current smoker. NPO Status: adequate Monitoring Plan Monitoring plan: standard ASA. Post Procedure Analgesic Plan Postoperative analgesic plan: multimodal analgesia. Informed Consent Anesthetic risks, benefits, alternatives, personnel and consent discussed: yes. Patient / Responsible Democrat agrees to proceed: yes Patient / Surrogate agrees to blood products: Yes Potential Anesthesia issues that may suggest increased risk of complications or contraindication to planned procedure: none. Vitals Value Taken Time BP 125/74 06/17/25 06:27 Pulse Resp 16 06/17/25 06:27 Temp 36.5 ?C (97.7 ?F) 06/17/25 06:27 SpO2 97 % 06/17/25 06:27 Facility-Administered Medications as of 2025 Medication Dose Route Frequency - alvimopan 12 mg cap(s) (ENTEREG) 12 mg ORAL Pre-Op Once - metroNIDAZOLE iv piggyback 500 mg in NaCl (iso-osmotic) 100 mL (FLAGYL) 500 mg INTRAVENOUS Pre-Op Once - cefTRIAXone 2 g in D5W 100 mL Vial-Bag (ROCEPHIN) 2 g INTRAVENOUS Pre-Op Once - NaCl 0.9% iv flush bag 20 mL INTRAVENOUS PRN - lactated ringers iv infusion 5-30 mL/hr INTRAVENOUS CONTINUOUS - lidocaine (PF) 10 mg/mL (1 %) 1-2 mg injection (XYLOCAINE) 0.1-0.2 mL INTRADERMAL PRN Outpatient Medications as of 2025 Medication Sig - polyethylene glycol 3350 (MIRALAX) 17 gram/dose powder Take 17 g by mouth as needed for constipation. Dissolve dose in 4 - 8 ounces of liquid and take as directed. I have interviewed and examined the patient. I have reviewed the medical record and/or the pre-anesthesia evaluation, pertinent labs, and test results. This contains updated information obtained within 48 hours of Surgery/Procedure. SIGNATURE: Michelle Michelle MD PATIENT NAME: Bentley Gonzalez DATE: 2025 TIME: 7:12 AM CSN: [id number]tts Mental Health Center NOTon 2025 BRIEF OP NOTHNO ID: [id number] Author: MIRNA JEFFERS MD Service: Colorectal Author Type: Fellow Type: Brief Op Note Filed: 2025 15:48 Note Text: COLORECTAL SURGERY BRIEF OP NOTE LOG ID: [id number] Surgery/Procedure Date: 2025 Incision/Procedure Start Time: 8:22 AM Incision Close/Procedure End Time: 3:29 PM Surgeon(s) and Systems Support Engineer(s): Surgeons and Role: Panel 1: * Teresa Tucker MD - Primary * Mirna Jeffers MD - Resident - Assisting Panel 2: * Teresa Tucker MD - Primary Physician Systems Support Engineer: Brent Cole PA-C; Lazaro Silva PA-C Procedure(s): Procedure(s) with comments: ROBOTIC LAPAROSCOPIC HEMICOLECTOMY WITH ANASTOMOSIS,COLOPROCTOSTOMY AND COLOSTOMY, flexiable sigmoidoscopy - Robotic LAR - low anterior colon resection with colostomy medi port removal Anesthesia: General Findings: Low anterior resection with ~1cm rectal cuff with stapled EEA and diverting loop ileostomy. Small amount of prostate capsule resected en bloc with (-) frozen margin. Tubes/Drains: Robinson drain in pelvis Estimated Blood Loss: 100 mls Specimens: ID Type Source Tests Collected by Time Destination 1 : Blood Blood TYPE + SCREEN Teresa Tucker MD 2025 7:55 AM 2 : Blood Blood CONFIRM BLOOD TYPE Teresa Tucker MD 2025 7:58 AM A : PROSTATE CAPSALE Tissue Prostate, Resection SURGICAL PATHOLOGY Teresa Tucker MD 2025 12:50 PM B : Sigmoid and Rectum Tissue Colon, Sigmoid, Resection SURGICAL PATHOLOGY Teresa Tucker MD 2025 1:24 PM C : Distal Doughnut Tissue Colon, Resection SURGICAL PATHOLOGY Teresa Tucker MD 2025 2:40 PM Wound Classification: Class 2, operative wound clean-contaminated, gastrointestinal/biliary tract entered without significant spillage Pre-Op/Pre-Procedure Diagnosis: Pre-Op Diagnosis Codes: * Rectal cancer (HCC) [C20] Post-Op/Post-Procedure Diagnosis: Same SIGNATURE: Mirna Jeffers MD PATIENT NAME: Bentley Gonzalez DATE: 2025 TIME: 3:45 PMNBeth Israel De[facility] BLOOD TYPEon [id number]-Farber Cancer InstituteComment on above:Order Comment: Specimen Type: BLOOD SPECIMENOrdering Facility: [facility] Address:[address] [place], [place] [address]Performed By: #### CONABO ####DARIEN BLOOD BANKCLIA [id number] [place] [id number] [facility] OF AMERICARh Nom (Bld)NegativeNormalKeo HospitalComment on above:Order Comment: Specimen Type: BLOOD SPECIMENOrdering Facility: [facility] Address:[address] [place], [place] [address]Performed By: #### CONABO ####DARIEN BLOOD BANKCLIA [id number] [address]ETURSING PROGon [id number] PRONO ID: [id number] Author: ESTHER PALACIOS RN Service: Nursing Author Type: Registered Nurse Type: Nursing Progress Note Filed: 2025 18:54 Note Text: Daily Note: 1838: Page sent to surgical team. Patient arrived from PACU with no orders. Complaining of 9/10 abdominal pain.[facility] PRONO ID: [id number] Author: ESTHER PALACIOS RN Service: Nursing Author Type: Registered Nurse Type: Nursing Progress Note Filed: 2025 18:47 Note Text: Transfer Note: PATIENT NAME: Bentley Gonzalez Patient Location: [place] [address] [address] Room: [place] [address] 181: Patient transferred into room/unit [place] [address] in stable condition.[facility] Hospitalon [id number] NOHNO ID: [id number] Author: TERESA TUCKER MD Service: Colorectal Author Type: Physician Type: Operative Report Filed: 2025 17:04 Note Text: COLON AND RECTAL SURGERY OPERATIVE REPORT PATIENT NAME: Bentley Gonzalez ADMISSION DATE: 2025 LOG ID: [id number] SURGERY/PROCEDURE DATE: 2025 INCISION/PROCEDURE START TIME: 8:22 AM INCISION CLOSE/PROCEDURE END TIME: 3:29 PM AGE: [age] year old SEX: male SURGEON(S)/PROCEDURALIST(S) AND WOOD BOATBUILDER(S): Surgeons and Role: Panel 1: * Teresa Tucker MD - Primary * Mirna Jeffers MD - Resident - Assisting Panel 2: * Teresa Tucker MD - Primary Physician Systems Support Engineer: Brent Cole PA-C; Lazaro Silva PA-C ANESTHESIA: General PREOPERATIVE DIAGNOSIS (ES): Rectal cancer POSTOPERATIVE DIAGNOSIS (ES): Same NAME OF OPERATION: Robotic Assisted Low Anterior Resection Laparoscopic Diverting Loop Ileostomy Flexible Sigmoidoscopy Mediport removal INDICATIONS FOR PROCEDURE: 65 year old man with an endoscopcially obstructing distal LARC s/p CAR, which was completed on 04/05/2025. Post-treatment flex completed at outside facility but per report, no tumor noted. However, MRI with residual tumor and tumor deposits. R/B/A of surgery was discussed with patient and informed consent obtained. OPERATIVE FINDINGS: Distal rectal mass. Colorectal anastomosis with 28EEA at ~1cm from anorectal ring. DESCRIPTION OF PROCEDURE: The patient was brought to the operating room and placed under general anesthesia in a supine position. Ch was placed and patient was subsequently placed in lithotomy. The patient's arms were tucked at his side. He was secured to the table with a strap across the chest. The abdomen was prepped and draped in normal sterile fashion. The patient received appropriate preop antibiotics and DVT prophylaxis. A surgical time-out was performed. We began by making a stab incision in the left upper quadrant of the abdomen. A Veres needle was used to establish pneumoperitoneum. A small incision was made in the supraumbilical position. An 8 mm robotic trocar was placed here without difficulty using an optiview technique. The abdomen was insufflated to 15 mmHg. A 10mm 30 degree angle robotic laparoscope was then used to explore the peritoneal cavity. There was no evidence of injury from entry. There was no evidence of bleeding, bowel injury or metastatic disease. Bilateral TAP block was completed laparoscopically using 0.5%marcaine mixed with exparel. Additional trocars were placed at the left abdomen (8-mm x2), right lower quadrant (12-mmx1) and right upper quadrant (AirSeal 5-mm x1), under direct vision. The patient was positioned and the small bowel and omentum were then displaced towards the right upper abdomen. The Spongei Xi robot was docked and all robotic instruments were placed under direct vision. The sigmoid colon was then mobilized using a medial to lateral approach. The inferior mesenteric pedicle was then skeletonized, clipped and transected near its origin. Both ureters were clearly identified and care was taken to not injure these structures during the dissection. The colon mesentery was then divided proximal to the KIERAN transection with a vessel sealing device. The lateral attachment of the sigmoid and descending colon were taken down with monopolar cautery. Of note, he had a very long descending colon. We then turned our attention back to the pelvis. We then performed a full mobilization of the rectum to the anorectal junction in accordance with techniques of total mesorectal excision utilizing sharp dissection. The dissection was carried out first posteriorly incising the areolar attachments between the mesorectum and the presacral fascia. Dissection was taken down through Waldeyer's fascia. Dissection was then taken laterally, incising the lateral peritoneal attachments and then finally anteriorly. The peritoneal reflexion just anterior to the rectum was incised. We identified the seminal vesicles and prostate. There was scarring on the right anterior side as well as along the prostatic capsule, with possible fibrotic tumor deposits. Care was taken to proceed with extra anatomic excision to include these possible deposits. Given the degree of scarring, an inadvertent injury was made to the prostatic capsule with bleeding encountered. This was controlled. A Small piece of the capsule (at the margin) was sent for intra-op frozen, which was negative for cancer. Several adjustments to exposure were made to ensure adequate visualization for sharp dissection and total mesorectal excision. We then transected the distal rectum at the pelvic floor with two firings of 45 mm green load robotic NATHALIE stapler. This was done after ensuring an adequate distal margin from both the abdominal and perineal ambrose. Proximal point of transection was chosen and the intervening mesentery to the bowel (more content not included)...NormalFairkettering health behavioral medical center HospitalTYPE + SCREENon [id number] HospitalComment on above:Order Comment: Specimen Type: BLOOD SPECIMENOrdering Facility: [facility] Address:[facility] [place], [place] [address]Sxmluideq By: #### TSCR ####CYRIL BLOOD BANKCLIA [id number] [place] [address] [facility] HUNTSVILLERh Nom (Bld)NegativeNormClinton Hospital HospitalComment on above:Order Comment: Specimen Type: BLOOD SPECIMENOrdering Facility: [facility] Address:[address] [place], [place] [address]Performed By: #### TSCR ####LORENZOROBERTO BLOOD BANKCLIA [id number] [place] [address] [facility] HUNTSVILLETYPE AND SCREEN BNDPIRFEVA14/15/2025 23:59NormClinton Hospital HospitalComment on above:Order Comment: Specimen Type: BLOOD SPECIMENOrdering Facility: [facility] Address:[address] [place], [place] [address]Performed By: #### TSCR ####LORENZOROBERTO BLOOD BANKCLIA [id number] [place] [address] [facility] HUNTSVILLEECG 12 leadon 06-11-2025 Ventricular Rate : 78 BPM Atrial Rate : 78 BPM P-R Interval : 128 ms QRS Duration : 78 ms Q-T Interval : 394 ms QTC Calculation(Bazett) : 449 ms Calculated P Umpire : 68 degrees Calculated R Umpire : 53 degrees Calculated T Umpire : 69 degrees NORMAL SINUS RHYTHM NORMAL ECG Confirmed by LO BISWAS DO ([id number]) on 06/11/2025 10:07:53 PM NAME : BENTLEY GONZALEZ PID : [id number] : 1960 Gender : Male Race : ORD : [id number] Procedure Date : Jun 10 2025 12:32:05 Edit Date : Jun 11 2025 22:07:58 Diagnosis: NORMAL SINUS RHYTHM NORMAL ECG Confirmed by LO BISWAS DO ([id number]) on 06/11/2025 10:07:53 PM Test [facility] : [facility] Location : [facility] : [facility] Overread By : LO BISWAS DO Edited By : LO BISWAS DO Referred By : TERESA TUCKER Acquired by : TMChrissy,CCFRadiology, Radiologist, - 06/11/2025 Ventricular Rate : 78 BPM Atrial Rate : 78 BPM P-R Interval : 128 ms QRS Duration : 78 ms Q-T Interval : 394 ms QTC Calculation(Bazett) : 449 ms Calculated P Umpire : 68 degrees Calculated R Umpire : 53 degrees Calculated T Umpire : 69 degrees NORMAL SINUS RHYTHM NORMAL ECG Confirmed by LO BISWAS DO ([id number]) on 06/11/2025 10:07:53 PM NAME : BENTLEY GONZALEZ PID : [id number] : 1960 Gender : Male Race : ORD : [id number] Procedure Date : Jun 10 2025 12:32:05 Edit Date : Jun 11 2025 22:07:58 Diagnosis: NORMAL SINUS RHYTHM NORMAL ECG Confirmed by LO BISWAS DO ([id number]) on 06/11/2025 10:07:53 PM Test Reason : [facility] Location : [facility] : [facility] Overread By : LO BISWAS DO Edited By : LO BISWAS DO Referred By : TERESA TUCKER Acquired by : CHRISTOPHER LEE HealthcareEC 12 leadOrdered By: Radiologist Radiology on [id number] mcTEL Work Phone: cNOVon [id number] [facility] CNPNon [id number] Clinic ClevelandECG COMPLETEon 06-10-2025 ECG COMPLETENormalCSelect Medical Specialty Hospital - Cleveland-FairhillHISTORY PHYSICALon [id number] PHYSICALNormalClevelAtrium Health MercyCNPNon [id number] Clinic ClevelandCNPNon [id number]rb Clinic ClevelandCNOVSPon [id number] Clinic ClevelandCB W Auto Differential panel (Bld)on 26-12-4919Ycaxqdljf (Bld) [#/Vol]NINFCleveland ClinicDifferential cell count method Nom (Bld)AutoCleveland ClinicEosinophils (Bld) [#/Vol]0.22 10*3/uL NINFCleveland ClinicImmature granulocytes (Bld) [#/Vol]NINFCleveland Clinic Immature granulocytes/100 WBC (Bld)0.4 %[facility] Memorial HospitalLymphocytes (Bld) [#/Vol]1.18 10*3/uLOhiohealth Hardin Memorial HospitalMonocytes (Bld) [#/Vol]0.75 10*3/uLNINF [facility] HospitalNeutrophils (Bld) [#/Vol]3.10 10*3/uLOhiohealth Hardin Memorial HospitalNucleated RBC (Bld) [#/Vol]NINFCOur Lady of Mercy Hospital - AndersonNucleated RBC/100 WBC (Bld) [Ratio]0.0 % /100 WBCOhiohealth Hardin Memorial HospitalPlatelet mean volume (Bld) [Entitic vol]9.0 fL9.0 - 12.7 fLCwhite hospital ClinicPlatelets (Bld) [#/Vol]171 10*3/uLOhiohealth Hardin Memorial HospitalWBC (Bld) [#/Vol]5.29 10*3/[facility] CenterBasophils (Bld) [#/Vol]10*3/uLNormal<0.11 [facility] on above:Order Comment: Specimen Type: BLOOD SPECIMENOrdering Facility: [facility] Address:[address] [place], [place] [address]Performed By: #### 85831-6 ####[facility] LABIA [id number] [place], [place] [address]Ltvxeiyho/100 WBC (Bld)0.4 %NormalUniversity Hospitals TriPoint Medical Center on above:Order Comment: Specimen Type: BLOOD SPECIMENOrdering Facility: [facility] Address:[address] [place], [place] [address]Performed By: #### 93936-8 ####[facility] LABCLIA [id number] [place], [place] [address]Ujgdndqvcsts cell count method Nom (Bld)AutoNormal [facility] on above:Order Comment: Specimen Type: BLOOD SPECIMENOrdering Facility: [facility] Address:[address] [place], [place] [address]Performed By: #### 39134-8 ####[facility] LABIA [id number] [place], [place] [address]Tglhaebnery (Bld) [#/Vol]0.22 10*3/uLNormal<0.46[facility] on above: Order Comment: Specimen Type: BLOOD SPECIMENOrdering Facility: [facility] Address:[address] [place], [place] [address]Performed By: #### 70037- 8 ####[facility] LABIA [id number] [place], [place] [address]Dzahjrqgivj/100 WBC (Bld)4.2 %NormalUniversity Hospitals TriPoint Medical Center on above:Order Comment: Specimen Type: BLOOD SPECIMENOrdering Facility: [facility] Address:[address] [place], [place] [address]Performed By: #### 99739-0 ####[facility] LABIA [id number] [place], [place] [address]Dslgxezyctr distribution width (RBC) [Ratio]12.9 %Urcddf38.5-15.0[facility] on above: Order Comment: Specimen Type: BLOOD SPECIMENOrdering Facility: [facility] Address:[address] [place], [place] [address]Performed By: #### 78880- 8 ####[facility] LABIA [id number] [place], [place] [address]Zywmnydzyx (Bld) [Volume fraction]37.9 %Low39.0-51.0 [facility] on above:Order Comment: Specimen Type: BLOOD SPECIMENOrdering Facility: [facility] Address:[address] [place], [place] [address]Performed By: #### 67846-8 ####[facility] LABIA [id number] [place], [place] [address]Hrrgtgtftu (Bld) [Mass/Vol]12.6 g/dLLow13.0-17.0[facility] on above:Order Comment: Specimen Type: BLOOD SPECIMENOrdering Facility: [facility] Address:[address] [place], [place] [address]Performed By: #### 75166- 8 ####[facility] LABCLIA [id number] [place], [place] [address]Cymppoki granulocytes (Bld) [#/Vol]10*3/uLNormal<0.10 [facility] on above:Order Comment: Specimen Type: BLOOD SPECIMENOrdering Facility: [facility] Address:[address] [place], [place] [address]Performed By: #### 06987-7 ####[facility] LABCLIA [id number] [place], [place] [address]Mzgaptce granulocytes/100 WBC (Bld)0.4 %NormalUniversity Hospitals TriPoint Medical Center on above: Order Comment: Specimen Type: BLOOD SPECIMENOrdering Facility: [facility] Address:[address] [place], [place] [address]Performed By: #### 72872- 8 ####[facility] LABCLIA [id number] [place], [place] [address]Zqautgevbkm (Bld) [#/Vol]1.18 10*3/uLNormal1.00-4.00 [facility] on above:Order Comment: Specimen Type: BLOOD SPECIMENOrdering Facility: [facility] Address:[address] [place], [place] [address]Performed By: #### 40127-9 ####[facility] LABCLIA [id number] [place], [place] [address]Vdbypcfviqg/100 WBC (Bld)22.3 %NormalUniversity Hospitals TriPoint Medical Center on above:Order Comment: Specimen Type: BLOOD SPECIMENOrdering Facility: [facility] Address:[address] [place], [place] [address]Performed By: #### 07233-8 ####[facility] LABCLIA [id number] [place], [place] [address]OTH (RBC) [Entitic mass]33.1 maGbmbxe65.0-34.0[facility] on above:Order Comment: Specimen Type: BLOOD SPECIMENOrdering Facility: [facility] Address:[address] [place], [place] [address]Performed By: #### 76061-2 ####[facility] LABCLIA [id number] [place], [place] [address]HYUS (RBC) [Mass/Vol]33.2 g/zBKubueq03.5-36.0[facility] on above: Order Comment: Specimen Type: BLOOD SPECIMENOrdering Facility: [facility] Address:[address] [place], [place] [address]Performed By: #### 79023- 8 ####[facility] LABCLIA [id number] [place], [place] [address]WIC (RBC) [Entitic vol]99.5 eEBnzlas46.0-100.0[facility] on above:Order Comment: Specimen Type: BLOOD SPECIMENOrdering Facility: [facility] Address:[address] [place], [place] [address]Performed By: #### 10090-5 ####[facility] LABCLIA [id number] [place], [place] [address]Tvcisxear (Bld) [#/Vol]0.75 10*3/uLNormal<0.87[facility] on above:Order Comment: Specimen Type: BLOOD SPECIMENOrdering Facility: [facility] Address:[address] [place], [place] [address]Performed By: #### 75781- 8 ####[facility] LABCLIA [id number] [place], [place] [address]Ngvksuqeg/100 WBC (Bld)14.2 %NormalUniversity Hospitals TriPoint Medical Center on above:Order Comment: Specimen Type: BLOOD SPECIMENOrdering Facility: [facility] Address:[address] [place], [place] [address]Performed By: #### 59224-5 ####[facility] LABCLIA [id number] [place], [place] [address]Nyeipnwbyqe (Bld) [#/Vol]3.10 10*3/uLNormal1.45-7.50[facility] on above:Order Comment: Specimen Type: BLOOD SPECIMENOrdering Facility: [facility] Address:[address] [place], [place] [address]Performed By: #### 01748-1 ####[facility] LABIA [id number] [place], [place] [address]Sbamokfyrlg/100 WBC (Bld)58.5 %NormalUniversity Hospitals TriPoint Medical Center on above:Order Comment: Specimen Type: BLOOD SPECIMENOrdering Facility: [facility] Address:[address] [place], [place] [address]Performed By: #### 68177-0 ####[facility] LABIA [id number] [place], [place] [address]Tbsowdsls RBC (Bld) [#/Vol] 10*3/uLNormal<0.01[facility] on above:Order Comment: Specimen Type: BLOOD SPECIMENOrdering Facility: [facility] Address:[address] [place], [place] [address]Performed By: #### 86215-9 ####[facility] LABIA [id number] [place], [place] [address]Aghbpdmrz RBC/100 WBC (Bld) [Ratio]0.0 /100 WBCNormal [facility] on above:Order Comment: Specimen Type: BLOOD SPECIMENOrdering Facility: [facility] Address:[address] [place], [place] [address]Performed By: #### 80145-7 ####[facility] LABIA [id number] [place], [place] [address]Gomtggop mean volume (Bld) [Entitic vol]9.0 fLNormal9.0-12.7CCincinnati Shriners Hospital on above:Order Comment: Specimen Type: BLOOD SPECIMENOrdering Facility: [facility] Address:[address] [place] [address] Performed By: #### 10582-3 ####[facility] LABCLIA [id number] [place], [place] [address]Wbekyeokl (Bld) [#/Vol]171 10*3/nJVmojps575-488PckqfpjhkUniversity Hospitals TriPoint Medical Center on above:Order Comment: Specimen Type: BLOOD SPECIMENOrdering Facility: [facility] Address:[address] [place], [place] [address]Performed By: #### 10207-5 ####[facility] LABCLIA [id number] [place], [place] [address]RNQ (Bld) [#/Vol]3.81 10*6/uLLow4.20-6.00[facility] on above:Order Comment: Specimen Type: BLOOD SPECIMENOrdering Facility: [facility] Address:[address] [place], [place] [address]Performed By: #### 49836-5 ####[facility] LABCLIA [id number] [place], [place] [address]IFJ (Bld) [#/Vol]5.29 10*3/uL Normal3.70-11.00[facility] on above:Order Comment: Specimen Type: BLOOD SPECIMENOrdering Facility: [facility] Address:[address] [place], [place] [address]Performed By: #### 07193-0 ####[facility] LABCLIA [id number] [place], [place] [address]QSD CBC W AUTO DIFF BLDon [id number] BASOPHILS # BLD AUTO<0.03NINFNOMS HealthcareCCF DIFFERENTIAL METHOD BLDAutoNOMS HealthcareCCF EOSINOPHIL # BLD AUTO0.22NINFCox [place] LYMPHOCYTES # BLD AUTO1.18NOFreeman Orthopaedics & Sports Medicine MONOCYTES # BLD AUTO0.75NINFMadison Medical CenterF NEUTROPHILS # BLD AUTO3.1NOMS [facility] OhioF NRBC # BLD AUTO<0.01NINFCox [place] NRBC/100 WBC BLD-RTO0/100 WBCNOFreeman Orthopaedics & Sports Medicine PLATELET # BLD [id number] Health Lakewood Medical CenterF PMV BLD AUTO9 fL9.0 - 12.7 fLCox [place] WBC # BLD AUTO5.29NOSSM [facility] GRANULOCYTES # BLD AUTO<0.03NIVanderbilt Children's Hospital GRANULOCYTES/LEUK NFR BLD AUTO0.4 %NOMS HealthcareSpecimen Type: BLOOD SPECIMEN [facility] Address: [address] [place] [address] Original Ordering Provider: TERESA BAUTISTAISYNCComprehensive metabolic 2000 panelOrdered By: Anabell Eduardo on 96-32-0540Nqxdhhh [Mass/Vol]3.9 g/dL3.9 - 4.9 g/dLHickory Valley ClinicALP [Catalytic activity/Vol]103 U/L38 - 113 U/L [facility] ClinicALT [Catalytic activity/Vol]18 U/L10 - 54 U/LCleveland Clinic Anion gap [Moles/Vol]7 mmol/LLow8 - 15 mmol/LCleveland ClinicAST [Catalytic activity/Vol]20 U/L14 - 40 U/LCleveland ClinicBilirubin [Mass/Vol]0.3 mg/dL0.2 - 1.3 mg/dLClethe bellevue hospital ClinicCalcium [Mass/Vol]9.1 mg/dL8.5 - 10.2 mg/dLClethe bellevue hospital ClinicChloride [Moles/Vol]106 mmol/L98 - 107 mmol/LCleveland ClinicCO2 [Moles/Vol]26 mmol/L22 - 30 mmol/LCleveland ClinicCreatinine [Mass/Vol]0.66 mg/dLLow0.73 - 1.22 mg/dLClethe bellevue hospital ClinicGFR/1.73 sq M.predicted among non- blacks MDRD (S/P/Bld) [Vol rate/Area]103 mL/min/{1.73_m2}- PINFCleveland Clinic Comment on above:Estimated Glomerular Filtration Rate (eGFR) is calculated using the 2020 CKD-EPI creatinine equation. This equation utilizes serum creatinine, sex, and age as parameters. The creatinine assay has traceable calibration to isotope dilution-mass spectrometry. Refer to KDIGO guidelines for clinical inte rpretation. In patients with unstable renal function, e.g. those with acute kidney injury, the eGFRmay not accurately reflect actual GFR.Glucose [Mass/Vol] 94 mg/dL74 - 99 mg/dLNationwide Children's Hospitalment on above:The [place] Diabetes Association (ADA) provides guidance for cutoff [...] Standards of Medical Care in Diabetes 2016, [place] [employer]. Diabetes Care. 2016.39(Suppl 1). Interpretation and review of laboratory resultsAbnormalCwhite hospital ClinicPotassium [Moles/Vol]3.9 mmol/L3.7 - 5.1 mmol/LCOur Lady of Mercy Hospital - AndersonProtein [Mass/Vol]6.4 g/dL 6.3 - 8.0 g/dLSelect Medical [facility] Clinic Rehabilitation Hospital, Beachwoododium [Moles/Vol]139 mmol/L136 - 144 mmol/L [facility] HospitalUrea nitrogen [Mass/Vol]12 mg/dL9 - 24 mg/dLSelect Medical Ohiohealth Rehabilitation HospitalComprehensive metabolic 2000 panelon 59-26-7098Qglgpyv [Mass/Vol]3.9 g/dLNormal3.9-4.9CCincinnati Shriners Hospital on above:Order Comment: Specimen Type: BLOOD SPECIMENOrdering Facility: [facility] Address:[address] [place], [place] [address]Obdkyjeae By: #### 91094- 8 ####[facility] LABCLIA [id number] [place], [place] [address]PYM [Catalytic activity/Vol]103 U/ECtfahf86-295BzjcqgdzaUniversity Hospitals TriPoint Medical Center on above:Order Comment: Specimen Type: BLOOD SPECIMENOrdering Facility: [facility] Address:[address] [place], [place] [address]Performed By: #### 09171-8 ####[facility] LABCLIA [id number] [place] [address]WVH [Catalytic activity/Vol]18 U/QUjgzrj70-59PpsutmhyeUniversity Hospitals TriPoint Medical Center on above:Order Comment: Specimen Type: BLOOD SPECIMENOrdering Facility: [facility] Address:[address] [place], [place] [address]Performed By: #### 51520- 8 ####[facility] LABCLIA [id number] [facility] [place], [place] [address]Owylk gap [Moles/Vol]7 mmol/LLow8-15[facility] on above:Order Comment: Specimen Type: BLOOD SPECIMENOrdering Facility: [facility] Address:[address] [place], [place] [address]Performed By: #### 37458-1 ####[facility] LABCLIA [id number] [facility] HICKSGERMANVETERANS HE[facility] AD[facility]IST[facility] [place] [address]UZU [Catalytic activity/Vol]20 U/DTputbe36-43MswtcmqclUniversity Hospitals TriPoint Medical Center on above:Order Comment: Specimen Type: BLOOD SPECIMENOrdering Facility: [facility] Address:[address] [place], [place] [address]Performed By: #### 79037-3 ####[facility] LABCLIA [id number] [facility] KURTGERMANEAST[place] [address] Bilirubin [Mass/Vol]0.3 mg/dLNormal0.2-1.3CCincinnati Shriners Hospital on above:Order Comment: Specimen Type: BLOOD SPECIMENOrdering Facility: [facility] Address:[address] [place], [place] [address]Performed By: #### 44253-6 ####[facility] LABCLIA [id number] [place], [place] [address]Gpnhjts [Mass/Vol]9.1 mg/dLNormal8.5-10.2CCincinnati Shriners Hospital on above:Order Comment: Specimen Type: BLOOD SPECIMENOrdering Facility: [facility] Address:[address] [place], [place] [address]Performed By: #### 65531-0 ####[facility] LABCLIA [id number] [place], [place] [address]Vgsenust [Moles/Vol]106 mmol/AYpnlqd17-525AyqalgdfgUniversity Hospitals TriPoint Medical Center on above: Order Comment: Specimen Type: BLOOD SPECIMENOrdering Facility: [facility] Address:[address] [place], [place] [address]Performed By: #### 24346- 8 ####[facility] LABCLIA [id number] [place], [place] [address]TU2 [Moles/Vol]26 mmol/WSysdnl04-53PzvqinywaUniversity Hospitals TriPoint Medical Center on above:Order Comment: Specimen Type: BLOOD SPECIMENOrdering Facility: [facility] Address:[address] [place], [place] [address]Performed By: #### 85918-7 ####[facility] LABCLIA [id number] [place], [place] [address]Twciqoffzq [Mass/Vol]0.66 mg/dL Low0.73-1.22[facility] on above:Order Comment: Specimen Type: BLOOD SPECIMENOrdering Facility: [facility] Address:[address] [place], [place] [address]Performed By: #### 50585-7 ####[facility] LABIA [id number] [place] [address] eGFRcr SerPlBld CKD-EPI 2026446 mL/min/1.73m???Normal>=60[facility] on above:Order Comment: Specimen Type: BLOOD SPECIMENOrdering Facility: [facility] Address:[address] [place] [address]Xggvgq Comment: Estimated Glomerular Filtration Rate (eGFR) is [...] accurately reflect actual GFR. Performed By: #### 09040-5 ####[facility] LABCLIA [id number] [place], [place] [address]Yjppxvj [Mass/Vol]94 mg/dL Dpobqi34-81RzrfzjdweUniversity Hospitals TriPoint Medical Center on above:Order Comment: Specimen Type: BLOOD SPECIMENOrdering Facility: [facility] Address:[address] [place] [address]Itrezp Comment: The [place] Diabetes Association (ADA) provides guidance for cutoff values for fasting glucose and random glucose. The ADA defines fasting as no caloric intake for at least 8 hours. F asting plasma glucose results between 100 to 125 mg/dL indicate increased risk for diabetes (prediabetes).Fasting plasma glucose results greater than or equal to 126 mg/dL meet the criteria for diagnosis of diabetes. In the absence of unequivocal hyperglycemia, results should be confirmed by repeattesting. In a patient with classic symptoms of hyperglycemia or hyperglycemic crisis, random plasmaglucose results greater than or equal to 200 mg/dL meet the criteria for diagnosis of diabetes.Reference: Standards of Medical Care in Diabetes 2016, [place] Diabetes Association. Diabetes Care. 2016.39(Suppl 1).Performed By: #### 68567-1 ####[facility] LABCLIA [id number] [place], [place] [address]Dgpcprubk [Moles/Vol]3.9 mmol/LNormal3.7-5.1 [facility] on above:Order Comment: Specimen Type: BLOOD SPECIMENOrdering Facility: [facility] Address:[address] [place] [address]Ypzxfndot By: #### 46993-9 ####[facility] LABCLIA [id number] [place], [place] [address]Egwwpof [Mass/Vol]6.4 g/dLNormal6.3-8.0[facility] on above:Order Comment: Specimen Type: BLOOD SPECIMENOrdering Facility: [facility] Address:[address] [place], [place] [address]Performed By: #### 30203- 8 ####[facility] LABCLIA [id number] [place], [place] [address]Vvdxhz [Moles/Vol]139 mmol/MPisvkf942-899IykmuobmnUniversity Hospitals TriPoint Medical Center on above:Order Comment: Specimen Type: BLOOD SPECIMENOrdering Facility: [facility] Address:[address] [place], [place] [address]Performed By: #### 76757-3 ####[facility] LABCLIA [id number] [place], [place] [address]Cawo nitrogen [Mass/Vol]12 mg/dLNormal9-24[facility] on above:Order Comment: Specimen Type: BLOOD SPECIMENOrdering Facility: [facility] Address:[address] [place], [place] [address]Performed By: #### 63916-5 ####[facility] LABCLIA [id number] [place], [place] [address]Vqueghbsdd - Hematology and Cell countson 05-27-2025 Basophils/100 WBC (Bld)0.4 %NOMS HealthcareEosinophils/100 WBC (Bld)4.2 %NOMS HealthcareErythrocyte distribution width (RBC) [Ratio]12.9 %11.5 - 15.0 %[facility] HealthcareHematocrit (Bld) [Volume fraction]37.9 %Low39.0 - 51.0 %[facility] HealthcareHemoglobin (Bld) [Mass/Vol]12.6 g/dLLow13.0 - 17.0 g/dLNOMS Healthcare Lymphocytes/100 WBC (Bld)22.3 %[facility]OM[facility] HealthcareMCH (RBC) [Entitic mass]33.1 pg 26.0 - 34.0 pgSalem Memorial District HospitalHC (RBC) [Mass/Vol]33.2 g/dL30.5 - 36.0 g/dLSalem Memorial District HospitalV (RBC) [Entitic vol]99.5 fL80.0 - 100.0 fLEllett Memorial Hospital Monocytes/100 WBC (Bld)14.2 %[facility] Memorial HospitalNeutrophils/100 WBC (Bld)58.5 %[facility] HealthcareRBC (Bld) [#/Vol]3.81 10*6/uLLow4.20 - 6.00 m/uLEllett Memorial HospitalNo Panel Informationon 57-09-7855Afbnobtbghicfk and review of laboratory results AbnormalFormerly Mercy Hospital SouthCNCNPATEDon 44-10-3157XWYHWWYYDLsykvc Martins Ferry HospitalCNOVon 27-60-8017ONLDHmwrnnRerqlligf Clinic [place] MR Pelvis WO contraston 69-50-0856XMOUXBQRFX: Decrease in size of mid-rectal mass with [...] nodes: Yes Suspicious Extramesorectal lymph nodes: No Instrument Inspector: RILEY Transcribe Date/Time: May 19 2025 7:42P Dictated by : MELISA CHAVEZ MD This examination was interpreted and the report reviewed and electronically signed by: MELISA CHAVEZ MD on May 19 2025 7:53PM [facility] DIVISION OF RADIOLOGY* * *Final Report* * * DATE OF [...] node (12:11), previously 8 x 7 mm. -The posterior mesorectal node/tumor deposits reference previously (9 mm and 6 mm on the prior study) are essentially resolved. Other reference left mesorectal node (previously 8 mm) now measures 3 mm (12:18). -Suspicious extra mesorectal lymph nodes: None. OTHER STRUCTURES/ ORGANS INVOLVED: none OTHER FINDINGS: None The study was interpreted by Dr Chavez, a member of the rectal cancer multidisciplinary tumor board. DIVISION OF RADIOLOGYProvider, [facility] [place] - 05/19/2025 * * *Final Report* * [...] node (12:11), previously 8 x 7 mm. -The posterior mesorectal node/tumor deposits reference previously (9 mm and 6 mm on the prior study) are essentially resolved. Other reference left mesorectal node (previously 8 mm) now measures 3 mm (12:18). -Suspicious extra mesorectal lymph nodes: None. OTHER STRUCTURES/ ORGANS INVOLVED: none OTHER FINDINGS: None The study was interpreted by Dr Chavez, a member of the rectal cancer multidisciplinary tumor board. IMPRESSION IMPRESSION: Decrease in size of mid-rectal mass [...] nodes: Yes Suspicious Extramesorectal lymph nodes: No Instrument Inspector: RILEY Transcribe Date/Time: May 19 2025 7:42P Dictated by : MELISA CHAVEZ MD This examination was interpreted and the report reviewed and electronically signed by: MELISA CHAVEZ MD on May 19 2025 7:53PM EST [facility] HospitalRadiology Study observation (narrative)[facility] HospitalMRI RECTUM WO/W IVCONon 05-19-2025* * *Final Report* * * DATE OF [...] node (12:11), previously 8 x 7 mm. -The posterior mesorectal node/tumor deposits reference previously (9 mm and 6 mm on the prior study) are essentially resolved. Other reference left mesorectal node (previously 8 mm) now measures 3 mm (12:18). -Suspicious extra mesorectal lymph nodes: None. OTHER STRUCTURES/ ORGANS INVOLVED: none OTHER FINDINGS: None The study was interpreted by Dr Chavez, a member of the rectal cancer multidisciplinary [...] nodes: Yes Suspicious Extramesorectal lymph nodes: No Instrument Inspector: RILEY Transcribe Date/Time: May 19 2025 7:42P Dictated by : MELISA CHAVEZ MD This examination was interpreted and the report reviewed and electronically signed by: MELISA CHAVEZ MD on May 19 2025 7:53PM EST [id number]^AGFA_IDC^SI^ACNCCFRadiology, Radiologist, - 05/19/2025 * * *Final Report* * * DATE OF EXAM: May 19 2025 7:33PM [facility] 0754 - MRI RECTUM WO/W IVCON / [...] node (12:11), previously 8 x 7 mm. -The posterior mesorectal node/tumor deposits reference previously (9 mm and 6 mm on the prior study) are essentially resolved. Other reference left mesorectal node (previously 8 mm) now measures 3 mm (12:18). -Suspicious extra mesorectal lymph nodes: None. OTHER STRUCTURES/ ORGANS INVOLVED: none OTHER FINDINGS: None The study was interpreted by Dr Chavez, a member of the rectal cancer multidisciplinary [...] nodes: Yes Suspicious Extramesorectal lymph nodes: No Instrument Inspector: PSCJarad Transcribe Date/Time: May 19 2025 7:42P Dictated by : MELISA CHAVEZ MD This examination was interpreted and the report reviewed and electronically signed by: MELISA CHAVEZ MD on May 19 2025 7:53PM EST [id number]^AGFA_IDC^SI^ACN [facility] HospitalMRI RECTUM WO/W IVCONNormalPeoples Hospitaliology Study observation (narrative)[facility] HospitalNo Panel InformationOrdered By: Radiologist Radiology on 37-70-1261BXTW mcTEL Work Phone: [place] 05-16-2025 Specimen: [id number] Received: 05/16/25 Status: DILEEP Vania Num: [id number] Spec Type: Surgical Subm Dr: Adonay Clemente MD Tissues: A Colon Biopsy (25 CM COLON BX) B Colon Biopsy (15 CM COLON POLYP) Procedures: HE/4, Gross/Micro L4/2 Age/ Patient Sex Location Account Attending Physician Bentley Gonzalez 64/M [place] [id number] Adonay Clemente MD SPEC NUM: [id number] RECD: 05/16/25 STATUS: DILEEP BALDERAS NUM: [id number] APRYL: 05/16/25 [facility] DR: Adonay Clemente MD ENTERED: 05/16/[address] [facility] [address]: STEPHANIE TYPE: Surgical DEPT: S ENTERED BY: [id number] RECV BY: [id number] ORDERED: HE/4, Gross/Micro L4/2 ORDERED: HE/4, Gross/Micro L4/2 Pathological Diagnosis A. 25 cm colon biopsy: Hyperplastic polyp B. 15 cm colon polyp: Hyperplastic polyp Clinical Information Rectal cancer Gross Description Part A is received in formalin labeled with the patients name, date of , and 25 cm colon BX are 2 cabrales-stoll, focally erythematous, friable, 0.4 cm each in greatest dimension tissue bits. The specimen is entirely submitted in a single cassette. (1, ns, [id number] A) J Part B is received in formalin labeled with the patients name, date of , and 15 cm colon polyp are 3 cabrales-stoll, focally erythematous, friable, 0.2, 0.3 and 0.3 cm in greatest dimension polypoid fragments. The specimen is entirely submitted in a single cassette. (1, ns, [id number] B) MALDONADO Specimen: [id number] Received: 05/16/25 Status: DILEEP Balderas Num: [id number] Spec Type: Surgical Subm Dr: Adonay Clemente MD Tissues: A Colon Biopsy (25 CM COLON BX) B Colon Biopsy (15 CM COLON POLYP) Procedures: HE/Nikkie, Gross/Micro L4/2 Patient: LisaBentley [id number] (Continued) Specimen: [id number] Received: 05/16/25 (Continued) Signed (signature on file) Willem Kirby JR, MD 05/17/25 1047 Specimen: [id number] Received: 05/16/25 Status: DILEEP Balderas Num: [id number] Spec Type: Surgical Subm Dr: Adonay Clemente MD Tissues: A Colon Biopsy (25 CM COLON BX) B Colon Biopsy (15 CM COLON POLYP) Procedures: HE/4, Gross/Micro L4/2 Patient: Bentley Gonzalez [id number] (Continued) Specimen: [id number] Received: 05/16/25 (Continued) Microscopic Description A?B. Microscopic examination was completed. CPT Codes 49939 x 2 Specimen: [id number] Received: 05/16/25 Status: DILEEP Balderas Num: [id number] Spec Type: Surgical Subm Dr: Adonay Clemente MD Tissues: A Colon Biopsy (25 CM COLON BX) B Colon Biopsy (15 CM COLON POLYP) Procedures: HE/4, Gross/Micro L4/2 Patient: Bentley Gonzalez [id number] (Continued) Signed (signature on file) Willem Kirby JR, MD 05/17/[address] [place] [address] Physician GroupCNOVSPon 11-01-9913TSQSEONnkyde Martins Ferry HospitalCNPNon 25-81-7731EYKFMgkuotPsagrxofw [facility] [place] CC CREATININE + EGFR PNL SERPLJewell 54-50-0710CNCIVB SERPLMARSHALL CKD-EPI [id number] University Hospital Community CampusComment on above:Estimated Glomerular Filtration Rate (eGFR) is calculated using the 2020 CKD-EPI creatinine equation. This equation utilizes serum creatinine, sex, and age as parameters. The creatinine assay has tra eable calibration to isotope dilution-mass spectrometry. Refer to KDIGO guidelines for clinical interpretation. In patients with unstable renal function, e.g. those with acute kidney injury, the eGFRmay not accurately reflect actual GFR.Specimen Type: BLOOD SPECIMEN [facility] Address: [address] [id number] Original Ordering Provider: HILARY HENNING ABD/PEL W IVCONojuan 04-27-2025* * *Final Report* * * DATE OF EXAM: Apr 27 2025 11:03AM [facility] 0530 - CT ABD/PEL W IVCON / PROCEDURE REASON: Rectal cancer (HCC) * * * * Physician Interpretation * * * * RESULT: EXAMINATION: CT ABDOMEN AND PELVIS WITH IV CONTRAST CLINICAL HISTORY: Rectal cancer TECHNIQUE: CT of the abdomen and pelvis was performed using standard technique, scanning from just above the dome of the diaphragm to the symphysis pubis. MQ: CTAP_3 Contrast: IV: 100 ml of Omnipaque 350 Oral: 500 ml of Omni 240 10-25ml diluted with water CT Radiation dose: Integrated Dose-length product (DLP) for this visit = 373 mGy*cm. CT Dose Reduction Employed: Automated exposure control (AEC) COMPARISON: CT abdomen/pelvis dated 10/27/2024 RESULT: Liver: Unchanged subcentimeter low-attenuation focus in segment VIII on series 3 image 16, favored to represent a benign cyst or hemangioma based on size stability. The previously noted 2 mm low-attenuation focus seen in segment for a is not well visualized on the current study. No new liver lesion identified. Biliary: No bile duct dilation. Unremarkable gallbladder Spleen: No mass. No splenomegaly. Pancreas: No mass or duct dilation. Adrenals: No mass. Kidneys: An incidental 1.7 cm left renal cyst is unchanged in size, it measures near water attenuation on the current exam. The kidneys are otherwise unremarkable. GI tract: Circumferential rectal wall thickening has improved from previously, consistent with the known rectal neoplasm. No small or large bowel dilation. No additional segments of bowel wall thickening. Colonic diverticulosis is noted, there are no CT findings of diverticulitis. A normal appendix is visualized. Lymph nodes: Decrease in size of the previously noted superior rectal lymph node mass, measuring 1.5 x 1.1 cm on series 3 image 96 compared to 2.5 x 2.0 cm previously. No additional enlarged lymph nodes identified in the abdomen/pelvis. Mesentery/Peritoneum: No ascites or mass. Retroperitoneum: No mass. Vasculature: - Abdominal aorta and iliac arteries: Atherosclerotic calcifications without aneurysm. - Celiac and SMA: Patent without stenosis. - Portal venous system (SMV, splenic vein, portal vein and branches): Patent. - Hepatic veins: Patent. Pelvis: No mass, ascites or fluid collection. Moderate prostate enlargement. Bones/Soft Tissues: Mild multilevel lower thoracic and lumbar spine degenerative disc disease. No destructive skeletal lesion. Lower thorax: Please see the separate report for the concurrently obtained CT of the chest. Localizer images: No additional findings. IMPRESSION: 1. Improvement in previously noted rectal wall thickening and decreased size of the superior rectal lymph node mass. 2. No CT evidence of new metastatic disease in the abdomen/pelvis. Transcribe Date/Time: Apr 27 2025 1:54P Dictated by: MARY MOYA MD This examination was interpreted and the report reviewed and electronically signed by: MARY MOYA MD on Apr 27 2025 2:22PM EST Thank you for allowing us to participate in the care of your patient. Should there be any questions regarding this interpretation, please call [phone]. If you are unable to reach us at the number above, please feel free to contact [facility] at [phone]. [id number]^ACNCCFRadiology, Radiologist, - 04/27/2025 * * *Final Report* * * DATE OF EXAM: Apr 27 2025 11:03AM [facility] 0530 - CT ABD/PEL W IVCON / PROCEDURE REASON: Rectal cancer (HCC) * * * * Physician Interpretation * * * * RESULT: EXAMINATION: CT ABDOMEN AND PELVIS WITH IV CONTRAST CLINICAL HISTORY: Rectal cancer TECHNIQUE: CT of the abdomen and pelvis was performed using standard technique, scanning from just above the dome of the diaphragm to the symphysis pubis. MQ: CTAP_3 Contrast: IV: 100 ml of Omnipaque 350 Oral: 500 ml of Omni 240 10-25ml diluted with water CT Radiation dose: Integrated Dose-length product (DLP) for this visit = 373 mGy*cm. CT Dose Reduction Employed: Automated exposure control (AEC) COMPARISON: CT abdomen/pelvis dated 10/27/2024 RESULT: Liver: Unchanged subcentimeter low-attenuation focus in segment VIII on series 3 image 16, favored to represent a benign cyst or hemangioma based on size stability. The previously noted 2 mm low-attenuation focus seen in segment for a is not well visualized on the current study. No new liver lesion identified. Biliary: No bile duct dilation. Unremarkable gallbladder Spleen: No mass. No splenomegaly. Pancreas: No mass or duct dilation. Adrenals: No mass. Kidneys: An incidental 1.7 cm left renal cyst is unchanged in size, it measures near water attenuation on the current exam. The kidneys are otherwise unremarkable. GI tract: Circumferential rectal wall thickening has improved from previously, consistent with the known rectal neoplasm. No small or large bowel dilation. No additional segments of bowel wall thickening. Colonic diverticulosis is noted, there are no CT findings of diverticulitis. A normal appendix is visualized. Lymph nodes: Decrease in size of the previously noted superior rectal lymph node mass, measuring 1.5 x 1.1 cm on series 3 image 96 compared to 2.5 x 2.0 cm previously. No additional enlarged lymph nodes identified in the abdomen/pelvis. Mesentery/Peritoneum: No ascites or mass. Retroperitoneum: No mass. Vasculature: - Abdominal aorta and iliac arteries: Atherosclerotic calcifications without aneurysm. - Celiac and SMA: Patent without stenosis. - Portal venous system (SMV, splenic vein, portal vein and branches): Patent. - Hepatic veins: Patent. Pelvis: No mass, ascites or fluid collection. Moderate prostate enlargement. Bones/Soft Tissues: Mild multilevel lower thoracic and lumbar spine degenerative disc disease. No destructive skeletal lesion. Lower thorax: Please see the separate report for the concurrently obtained CT of the chest. Localizer images: No additional findings. IMPRESSION: 1. Improvement in previously noted rectal wall thickening and decreased size of the superior rectal lymph node mass. 2. No CT evidence of new metastatic disease in the abdomen/pelvis. Transcribe Date/Time: Apr 27 2025 1:54P Dictated by: MARY MOYA MD This examination was interpreted and the report reviewed and electronically signed by: MARY MOYA MD on Apr 27 2025 2:22PM EST Thank you for allowing us to participate in the care of your patient. Should there be any questions regarding this interpretation, please call [phone]. If you are unable to reach us at the number above, please feel free to contact [facility] at [phone]. [id number]^[email or web address]^ACN [facility]CT [facility] and [facility] W contrast Lila [id number]: 1. Improvement in previously noted rectal wall thickening and decreased size of the superior rectal lymph node mass. 2. No CT evidence of new metastatic disease in the abdomen/pelvis. Transcribe Date/Time: Apr 27 2025 1:54P Dictated by: MARY MOYA MD This examination was interpreted and the report reviewed and electronically signed by: MARY MOYA MD on Apr 27 2025 2:22PM EST Thank you for allowing us to participate in the care of your patient. Should there be any questions regarding this interpretation, please call [phone]. If you are unable to reach us at the number above, please feel free to contact [facility] at [phone].DIVISION OF RADIOLOGY* * *Final Report* * * DATE OF EXAM: Apr 27 2025 11:03AM [facility] 0530 - CT ABD/PEL W IVCON / PROCEDURE REASON: Rectal cancer (HCC) * * * * Physician Interpretation * * * * RESULT: EXAMINATION: CT ABDOMEN AND PELVIS WITH IV CONTRAST CLINICAL HISTORY: Rectal cancer TECHNIQUE: CT of the abdomen and pelvis was performed using standard technique, scanning from just above the dome of the diaphragm to the symphysis pubis. MQ: CTAP_3 Contrast: IV: 100 ml of Omnipaque 350 Oral: 500 ml of Omni 240 10-25ml diluted with water CT Radiation dose: Integrated Dose-length product (DLP) for this visit = 373 mGy*cm. CT Dose Reduction Employed: Automated exposure control (AEC) COMPARISON: CT abdomen/pelvis dated 10/27/2024 RESULT: Liver: Unchanged subcentimeter low-attenuation focus in segment VIII on series 3 image 16, favored to represent a benign cyst or hemangioma based on size stability. The previously noted 2 mm low-attenuation focus seen in segment for a is not well visualized on the current study. No new liver lesion identified. Biliary: No bile duct dilation. Unremarkable gallbladder Spleen: No mass. No splenomegaly. Pancreas: No mass or duct dilation. Adrenals: No mass. Kidneys: An incidental 1.7 cm left renal cyst is unchanged in size, it measures near water attenuation on the current exam. The kidneys are otherwise unremarkable. GI tract: Circumferential rectal wall thickening has improved from previously, consistent with the known rectal neoplasm. No small or large bowel dilation. No additional segments of bowel wall thickening. Colonic diverticulosis is noted, there are no CT findings of diverticulitis. A normal appendix is visualized. Lymph nodes: Decrease in size of the previously noted superior rectal lymph node mass, measuring 1.5 x 1.1 cm on series 3 image 96 compared to 2.5 x 2.0 cm previously. No additional enlarged lymph nodes identified in the abdomen/pelvis. Mesentery/Peritoneum: No ascites or mass. Retroperitoneum: No mass. Vasculature: - Abdominal aorta and iliac arteries: Atherosclerotic calcifications without aneurysm. - Celiac and SMA: Patent without stenosis. - Portal venous system (SMV, splenic vein, portal vein and branches): Patent. - Hepatic veins: Patent. Pelvis: No mass, ascites or fluid collection. Moderate prostate enlargement. Bones/Soft Tissues: Mild multilevel lower thoracic and lumbar spine degenerative disc disease. No destructive skeletal lesion. Lower thorax: Please see the separate report for the concurrently obtained CT of the chest. Localizer images: No additional findings. DIVISION OF RADIOLOGYProvider, [facility] [place] - 04/27/2025 * * *Final Report* * * DATE OF EXAM: Apr 27 2025 11:03AM [facility] 0530 - CT ABD/PEL W IVCON / PROCEDURE REASON: Rectal cancer (HCC) * * * * Physician Interpretation * * * * RESULT: EXAMINATION: CT ABDOMEN AND PELVIS WITH IV CONTRAST CLINICAL HISTORY: Rectal cancer TECHNIQUE: CT of the abdomen and pelvis was performed using standard technique, scanning from just above the dome of the diaphragm to the symphysis pubis. MQ: CTAP_3 Contrast: IV: 100 ml of Omnipaque 350 Oral: 500 ml of Omni 240 10-25ml diluted with water CT Radiation dose: Integrated Dose-length product (DLP) for this visit = 373 mGy*cm. CT Dose Reduction Employed: Automated exposure control (AEC) COMPARISON: CT abdomen/pelvis dated 10/27/2024 RESULT: Liver: Unchanged subcentimeter low-attenuation focus in segment VIII on series 3 image 16, favored to represent a benign cyst or hemangioma based on size stability. The previously noted 2 mm low-attenuation focus seen in segment for a is not well visualized on the current study. No new liver lesion identified. Biliary: No bile duct dilation. Unremarkable gallbladder Spleen: No mass. No splenomegaly. Pancreas: No mass or duct dilation. Adrenals: No mass. Kidneys: An incidental 1.7 cm left renal cyst is unchanged in size, it measures near water attenuation on the current exam. The kidneys are otherwise unremarkable. GI tract: Circumferential rectal wall thickening has improved from previously, consistent with the known rectal neoplasm. No small or large bowel dilation. No additional segments of bowel wall thickening. Colonic diverticulosis is noted, there are no CT findings of diverticulitis. A normal appendix is visualized. Lymph nodes: Decrease in size of the previously noted superior rectal lymph node mass, measuring 1.5 x 1.1 cm on series 3 image 96 compared to 2.5 x 2.0 cm previously. No additional enlarged lymph nodes identified in the abdomen/pelvis. Mesentery/Peritoneum: No ascites or mass. Retroperitoneum: No mass. Vasculature: - Abdominal aorta and iliac arteries: Atherosclerotic calcifications without aneurysm. - Celiac and SMA: Patent without stenosis. - Portal venous system (SMV, splenic vein, portal vein and branches): Patent. - Hepatic veins: Patent. Pelvis: No mass, ascites or fluid collection. Moderate prostate enlargement. Bones/Soft Tissues: Mild multilevel lower thoracic and lumbar spine degenerative disc disease. No destructive skeletal lesion. Lower thorax: Please see the separate report for the concurrently obtained CT of the chest. Localizer images: No additional findings. IMPRESSION IMPRESSION: 1. Improvement in previously noted rectal wall thickening and decreased size of the superior rectal lymph node mass. 2. No CT evidence of new metastatic disease in the abdomen/pelvis. Transcribe Date/Time: Apr 27 2025 1:54P Dictated by: MARY MOYA MD This examination was interpreted and the report reviewed and electronically signed by: MARY MOYA MD on Apr 27 2025 2:22PM EST Thank you for allowing us to participate in the care of your patient. Should there be any questions regarding this interpretation, please call [phone]. If you are unable to reach us at the number above, please feel free to contact [facility] at [phone]. [facility] HospitalCT CHEST W IVCONon [id number] CHEST W IVCONNormalMartins Ferry HospitalCT Chest W contrast Lila 04-27-2025* * *Final Report* * * DATE OF EXAM: Apr 27 2025 11:03AM [facility] 0539 - CT CHEST W IVCON / PROCEDURE REASON: Rectal cancer (HCC) * * * * Physician Interpretation * * * * RESULT: EXAMINATION: CHEST CT WITH CONTRAST CLINICAL HISTORY: Rectal cancer Technique: Spiral CT acquisition of the chest from the thoracic inlet to the upper abdomen following IV contrast. MQ: CTCW_6 Contrast: 100 mL Omnipaque [address] Radiation dose: Integrated Dose-length product (DLP) for this visit = 373 mGy*cm CT Dose Reduction Employed: Automated exposure control (AEC) Comparison: Chest CT dated 10/27/2024 RESULT: Limitations: None. Lines, tubes, and devices: A right-sided chest port terminates near the cavoatrial junction. Lung parenchyma and airways: A 2 mm left upper lobe nodule on series 4 image 70 is unchanged. A 4 mm left lower lobe nodule on series 4 image 141 is unchanged. A 4 mm left lower lobe nodule on series 4 image 163 is unchanged. A 4 mm right upper lobe nodule on series 4 image 54 is more conspicuous than on the prior exam when a faint focus of groundglass opacity was seen in this area. No new pulmonary nodules or masses are identified. Incidental calcified granulomas are unchanged. Mild dependent atelectasis bilaterally. No new airspace consolidation. Upper lung predominant emphysema is unchanged. The central airways are patent. Pleural space: No pleural effusion. No pleural thickening. Lower neck, lymph nodes, and mediastinum: The imaged thyroid gland is normal. No lymphadenopathy in the supraclavicular, axillary, mediastinal, or hilar regions. Heart, pericardium, and thoracic vessels: The thoracic aorta and main pulmonary artery are normal in caliber. The cardiac chambers are normal in size. No coronary artery atherosclerotic calcifications are noted, although the study is not optimized for coronary assessment. No pericardial effusion or thickening. Bones and soft tissues: No destructive skeletal lesion is present. Mild multilevel thoracic spine degenerative disc disease is noted. Upper abdomen: Please see the separate report for the concurrently obtained CT of the abdomen/pelvis. Localizer images: No additional findings. IMPRESSION: 1. A 4 mm right upper lobe nodule is more conspicuous compared to the prior CT performed in October 2024, attention is recommended on subsequent restaging exams. Additional pulmonary nodules measuring up to 4 mm are unchanged. 2. No pathologically enlarged lymph nodes identified in the chest. Transcribe Date/Time: Apr 27 2025 1:56P Dictated by: MARY MOYA MD This examination was interpreted and the report reviewed and electronically signed by: MARY MOYA MD on Apr 27 2025 2:07PM EST Thank you for allowing us to participate in the care of your patient. Should there be any questions regarding this interpretation, please call [phone]. If you are unable to reach us at the number above, please feel free to contact [facility] at [phone]. [id number]^[email or web address]^SI^ACNCCFRadiology, Radiologist, - 04/27/2025 * * *Final Report* * * DATE OF EXAM: Apr 27 2025 11:03AM [facility] 0539 - CT CHEST W IVCON / PROCEDURE REASON: Rectal cancer (HCC) * * * * Physician Interpretation * * * * RESULT: EXAMINATION: CHEST CT WITH CONTRAST CLINICAL HISTORY: Rectal cancer Technique: Spiral CT acquisition of the chest from the thoracic inlet to the upper abdomen following IV contrast. MQ: CTCW_6 Contrast: 100 mL Omnipaque [address] Radiation dose: Integrated Dose-length product (DLP) for this visit = 373 mGy*cm CT Dose Reduction Employed: Automated exposure control (AEC) Comparison: Chest CT dated 10/27/2024 RESULT: Limitations: None. Lines, tubes, and devices: A right-sided chest port terminates near the cavoatrial junction. Lung parenchyma and airways: A 2 mm left upper lobe nodule on series 4 image 70 is unchanged. A 4 mm left lower lobe nodule on series 4 image 141 is unchanged. A 4 mm left lower lobe nodule on series 4 image 163 is unchanged. A 4 mm right upper lobe nodule on series 4 image 54 is more conspicuous than on the prior exam when a faint focus of groundglass opacity was seen in this area. No new pulmonary nodules or masses are identified. Incidental calcified granulomas are unchanged. Mild dependent atelectasis bilaterally. No new airspace consolidation. Upper lung predominant emphysema is unchanged. The central airways are patent. Pleural space: No pleural effusion. No pleural thickening. Lower neck, lymph nodes, and mediastinum: The imaged thyroid gland is normal. No lymphadenopathy in the supraclavicular, axillary, mediastinal, or hilar regions. Heart, pericardium, and thoracic vessels: The thoracic aorta and main pulmonary artery are normal in caliber. The cardiac chambers are normal in size. No coronary artery atherosclerotic calcifications are noted, although the study is not optimized for coronary assessment. No pericardial effusion or thickening. Bones and soft tissues: No destructive skeletal lesion is present. Mild multilevel thoracic spine degenerative disc disease is noted. Upper abdomen: Please see the separate report for the concurrently obtained CT of the abdomen/pelvis. Localizer images: No additional findings. IMPRESSION: 1. A 4 mm right upper lobe nodule is more conspicuous compared to the prior CT performed in October 2024, attention is recommended on subsequent restaging exams. Additional pulmonary nodules measuring up to 4 mm are unchanged. 2. No pathologically enlarged lymph nodes identified in the chest. Transcribe Date/Time: Apr 27 2025 1:56P Dictated by: MARY MOYA MD This examination was interpreted and the report reviewed and electronically signed by: MARY MOYA MD on Apr 27 2025 2:07PM EST Thank you for allowing us to participate in the care of your patient. Should there be any questions regarding this interpretation, please call [phone]. If you are unable to reach us at the number above, please feel free to contact [facility] at [phone]. [id number]^AGFA_[email or web address]^SI^ACN NOM[facility] HealthcareIMPRESSION: 1. A 4 mm right upper lobe nodule is more conspicuous compared to the prior CT performed in October 2024, attention is recommended on subsequent restaging exams. Additional pulmonary nodules measuring up to 4 mm are unchanged. 2. No pathologically enlarged lymph nodes identified in the chest. Transcribe Date/Time: Apr 27 2025 1:56P Dictated by: MARY MOYA MD This examination was interpreted and the report reviewed and electronically signed by: MARY MOYA MD on Apr 27 2025 2:07PM EST Thank you for allowing us to participate in the care of your patient. Should there be any questions regarding this interpretation, please call [phone]. If you are unable to reach us at the number above, please feel free to contact [facility] at [phone].DIVISION OF RADIOLOGY* * *Final Report* * * DATE OF EXAM: Apr 27 2025 11:03AM [facility] 0539 - CT CHEST W IVCON / PROCEDURE REASON: Rectal cancer (HCC) * * * * Physician Interpretation * * * * RESULT: EXAMINATION: CHEST CT WITH CONTRAST CLINICAL HISTORY: Rectal cancer Technique: Spiral CT acquisition of the chest from the thoracic inlet to the upper abdomen following IV contrast. MQ: CTCW_6 Contrast: 100 mL Omnipaque [address] Radiation dose: Integrated Dose-length product (DLP) for this visit = 373 mGy*cm CT Dose Reduction Employed: Automated exposure control (AEC) Comparison: Chest CT dated 10/27/2024 RESULT: Limitations: None. Lines, tubes, and devices: A right-sided chest port terminates near the cavoatrial junction. Lung parenchyma and airways: A 2 mm left upper lobe nodule on series 4 image 70 is unchanged. A 4 mm left lower lobe nodule on series 4 image 141 is unchanged. A 4 mm left lower lobe nodule on series 4 image 163 is unchanged. A 4 mm right upper lobe nodule on series 4 image 54 is more conspicuous than on the prior exam when a faint focus of groundglass opacity was seen in this area. No new pulmonary nodules or masses are identified. Incidental calcified granulomas are unchanged. Mild dependent atelectasis bilaterally. No new airspace consolidation. Upper lung predominant emphysema is unchanged. The central airways are patent. Pleural space: No pleural effusion. No pleural thickening. Lower neck, lymph nodes, and mediastinum: The imaged thyroid gland is normal. No lymphadenopathy in the supraclavicular, axillary, mediastinal, or hilar regions. Heart, pericardium, and thoracic vessels: The thoracic aorta and main pulmonary artery are normal in caliber. The cardiac chambers are normal in size. No coronary artery atherosclerotic calcifications are noted, although the study is not optimized for coronary assessment. No pericardial effusion or thickening. Bones and soft tissues: No destructive skeletal lesion is present. Mild multilevel thoracic spine degenerative disc disease is noted. Upper abdomen: Please see the separate report for the concurrently obtained CT of the abdomen/pelvis. Localizer images: No additional findings. DIVISION OF RADIOLOGYProvider, [facility] [place] - 04/27/2025 * * *Final Report* * * DATE OF EXAM: Apr 27 2025 11:03AM [facility] 0539 - CT CHEST W IVCON / PROCEDURE REASON: Rectal cancer (HCC) * * * * Physician Interpretation * * * * RESULT: EXAMINATION: CHEST CT WITH CONTRAST CLINICAL HISTORY: Rectal cancer Technique: Spiral CT acquisition of the chest from the thoracic inlet to the upper abdomen following IV contrast. MQ: CTCW_6 Contrast: 100 mL Omnipaque [address] Radiation dose: Integrated Dose-length product (DLP) for this visit = 373 mGy*cm CT Dose Reduction Employed: Automated exposure control (AEC) Comparison: Chest CT dated 10/27/2024 RESULT: Limitations: None. Lines, tubes, and devices: A right-sided chest port terminates near the cavoatrial junction. Lung parenchyma and airways: A 2 mm left upper lobe nodule on series 4 image 70 is unchanged. A 4 mm left lower lobe nodule on series 4 image 141 is unchanged. A 4 mm left lower lobe nodule on series 4 image 163 is unchanged. A 4 mm right upper lobe nodule on series 4 image 54 is more conspicuous than on the prior exam when a faint focus of groundglass opacity was seen in this area. No new pulmonary nodules or masses are identified. Incidental calcified granulomas are unchanged. Mild dependent atelectasis bilaterally. No new airspace consolidation. Upper lung predominant emphysema is unchanged. The central airways are patent. Pleural space: No pleural effusion. No pleural thickening. Lower neck, lymph nodes, and mediastinum: The imaged thyroid gland is normal. No lymphadenopathy in the supraclavicular, axillary, mediastinal, or hilar regions. Heart, pericardium, and thoracic vessels: The thoracic aorta and main pulmonary artery are normal in caliber. The cardiac chambers are normal in size. No coronary artery atherosclerotic calcifications are noted, although the study is not optimized for coronary assessment. No pericardial effusion or thickening. Bones and soft tissues: No destructive skeletal lesion is present. Mild multilevel thoracic spine degenerative disc disease is noted. Upper abdomen: Please see the separate report for the concurrently obtained CT of the abdomen/pelvis. Localizer images: No additional findings. IMPRESSION IMPRESSION: 1. A 4 mm right upper lobe nodule is more conspicuous compared to the prior CT performed in October 2024, attention is recommended on subsequent restaging exams. Additional pulmonary nodules measuring up to 4 mm are unchanged. 2. No pathologically enlarged lymph nodes identified in the chest. Transcribe Date/Time: Apr 27 2025 1:56P Dictated by: MARY MOYA MD This examination was interpreted and the report reviewed and electronically signed by: MARY MOYA MD on Apr 27 2025 2:07PM EST Thank you for allowing us to participate in the care of your patient. Should there be any questions regarding this interpretation, please call [phone]. If you are unable to reach us at the number above, please feel free to contact [facility] eRadiology at [phone]. [facility] Chest W contrast IVOrdered By: Radiologist Radiology on 04-49-9881LJAJ mcTEL Work Phone: creatinine and Glomerular filtration rate.predicted panel (S/P/Bld)Ordered By: Anabell Eduardo on 96-54-7647ENO/1.73 sq M.predicted among non-blacks MDRD (S/P/Bld) [Vol rate/Area]103 mL/min/{1.73_m2}- CIERRA [facility] on above:Estimated Glomerular Filtration Rate (eGFR) is calculated using the 2020 CKD-EPI creatinine equation. This equation utilizes serum creatinine, sex, and age as parameters. The creatinine assay has traceable calibration to isotope dilution-mass spectrometry. Refer to KDIGO guidelines for clinical interpretation. In patients with unstable renal function, e.g. those with acute kidney injury, the eGFRmay not accurately reflect actual GFR. Creatinine and Glomerular filtration rate.predicted panel (S/P/Bld)on 04-27-2025 Creatinine [Mass/Vol]0.68 mg/dLLow0.73-1.22[facility] on above:Order Comment: Specimen Type: BLOOD SPECIMENOrdering Facility: [facility] Address:[address] [place] [address]Jsxetwdzr By: #### 09228-7 ####[facility] LABCLIA [id number] [place], [place] [address]gZERaf SerPlBld CKD-EPI 7997272 mL/min/1.73m??? Normal>=60[facility] on above:Order Comment: Specimen Type: BLOOD SPECIMENOrdering Facility: [facility] Address:[address] [place], [place] [address]Qxlobr Comment: Estimated Glomerular Filtration Rate (eGFR) is calculated using the 2020 CKD-EPI creatinine equation. This equation utilizes serum creatinine, sex, and age as parameters. The creatinine assay has traceable calibration to isotope dilution-mass spectrometry. Refer to KDIGO guidelines for clinical interpretation. In patients with unstable renal function, e.g. those with acute kidney injury, the eGFR may not accurately reflect actual GFR.Performed By: #### 39872-8 ####[facility] LABCLIA [id number] [place], [place] [address]Fywhuhsypk - Chemistry and Chemistry - challengeon [id number] [Mass/Vol]0.68 mg/dL Low0.73 - 1.22 mg/dLNortheast Missouri Rural Health Network Panel InformationOrdered By: Radiologist Radiology on 12-29-2470YAKBEllett Memorial Hospital Work Phone: No Panel Informationon [id number] Study observation (narrative)[facility] HospitalInterpretation and review of laboratory resultsAbnormalFormerly [facility] SouthRadiology Study observation (narrative)[facility] W Auto Differential panel (Bld)on 04-05-2025 Basophils (Bld) [#/Vol]NINFCleveland ClinicDifferential cell count method Nom (Bld)AutoCleveland ClinicEosinophils (Bld) [#/Vol]0.25 10*3/uLNIACMC Healthcare SystemImmature granulocytes (Bld) [#/Vol]NINFCleveland ClinicImmature granulocytes/100 WBC (Bld)0.4 %[facility] HospitalLymphocytes (Bld) [#/Vol]0.57 10*3/uLLowHickory Valley ClinicMonocytes (Bld) [#/Vol]1.03 10*3/uLHighNINFHickory Valley ClinicNeutrophils (Bld) [#/Vol]2.77 10*3/uLCleveland ClinicNucleated RBC (Bld) [#/Vol]NINFCOur Lady of Mercy Hospital - AndersonNucleated RBC/100 WBC (Bld) [Ratio]0 %/100 WBC [facility] HospitalPlatelet mean volume (Bld) [Entitic vol]10 fL9.0 - 12.7 fL [facility] Valley ClinicPlatelets (Bld) [#/Vol]72 10*3/uLLowOhiohealth Hardin Memorial HospitalComment on above:No clot detected.WBC (Bld) [#/Vol]4.66 10*3/uLHickory Valley ClinicBasophils (Bld) [#/Vol]10*3/uLNormal<0.11CCincinnati Shriners Hospital on above:Order Comment: Specimen Type: BLOOD SPECIMENOrdering Facility: [facility] Address:[address] [place], [place] [address]Performed By: #### 90610- 8 ####[facility] LABCLIA [id number] [place], [place] [address]Uagftvsak/100 WBC (Bld)0.4 %NormalUniversity Hospitals TriPoint Medical Center on above:Order Comment: Specimen Type: BLOOD SPECIMENOrdering Facility: [facility] Address:[address] [place], [place] [address]Performed By: #### 39821-1 ####[facility] LABIA [id number] [place], [place] [address]Ithsjtwqjyxa cell count method Nom (Bld)AutoNormalCCincinnati Shriners Hospital on above:Order Comment: Specimen Type: BLOOD SPECIMENOrdering Facility: [facility] Address:[address] [place], [place] [address]Performed By: #### 92431-4 ####[facility] LABIA [id number] [place], [place] [address]Ricjolxvztb (Bld) [#/Vol]0.25 10*3/uLNormal<0.46[facility] on above:Order Comment: Specimen Type: BLOOD SPECIMENOrdering Facility: [facility] Address:[address] [place], [place] [address]Performed By: #### 06586-0 ####[facility] LABIA [id number] [place], [place] [address]Tmystybgzwq/100 WBC (Bld)5.4 %NormalMartins Ferry HospitalComment on above:Order Comment: Specimen Type: BLOOD SPECIMENOrdering Facility: [facility] Address:[address] [place], [place] [address]Performed By: #### 53524-4 ####[facility] LABCLIA [id number] [place], [place] [address]Cxqvwiivyxc distribution width (RBC) [Ratio]14.5 %Normal 11.5-15.0[facility] on above:Order Comment: Specimen Type: BLOOD SPECIMENOrdering Facility: [facility] Address:[address] [place], [place] [address]Performed By: #### 05154-9 ####[facility] LABIA [id number] [place] [address] Hematocrit (Bld) [Volume fraction]36.9 %Low39.0-51.0[facility] Comment on above:Order Comment: Specimen Type: BLOOD SPECIMENOrdering Facility: [facility] Address:[address] [place] [address] Performed By: #### 74973-5 ####[facility] LABIA [id number] [place], [place] [address]Igvskatqij (Bld) [Mass/Vol]12.9 g/dLLow13.0-17.0[facility] on above:Order Comment: Specimen Type: BLOOD SPECIMENOrdering Facility: [facility] Address:[address] [place], [place] [address]Performed By: #### 66727-2 ####[facility] LABIA [id number] [place], [place] [address]Cmjtimjr granulocytes (Bld) [#/Vol]10*3/uLNormal<0.10 [facility] on above:Order Comment: Specimen Type: BLOOD SPECIMENOrdering Facility: [facility] Address:[address] [place], [place] [address]Performed By: #### 34177-0 ####[facility] LABCLIA [id number] [place], [place] [address]Ffdgfbzb granulocytes/100 WBC (Bld)0.4 %NormalUniversity Hospitals TriPoint Medical Center on above: Order Comment: Specimen Type: BLOOD SPECIMENOrdering Facility: [facility] Address:[address] [place], [place] [address]Performed By: #### 61520- 8 ####[facility] LABCLIA [id number] [place], [place] [address]Hfsuofvmquq (Bld) [#/Vol]0.57 10*3/uLLow1.00-4.00 [facility] on above:Order Comment: Specimen Type: BLOOD SPECIMENOrdering Facility: [facility] Address:[address] [place], [place] [address]Performed By: #### 39155-8 ####[facility] LABIA [id number] [place], [place] [address]Vztopzrjcdv/100 WBC (Bld)12.2 %NormalUniversity Hospitals TriPoint Medical Center on above:Order Comment: Specimen Type: BLOOD SPECIMENOrdering Facility: [facility] Address:[address] [place], [place] [address]Performed By: #### 64199-1 ####[facility] LABIA [id number] [place], [place] [address]AOL (RBC) [Entitic mass]34.4 coSeuj16.0-34.0[facility] on above:Order Comment: Specimen Type: BLOOD SPECIMENOrdering Facility: [facility] Address:[address] [place], [place] [address]Performed By: #### 46278-4 ####[facility] LABCLIA [id number] [place], [place] [address]KUBK (RBC) [Mass/Vol]35.0 g/uBBwuoka45.5-36.0[facility] on above: Order Comment: Specimen Type: BLOOD SPECIMENOrdering Facility: [facility] Address:[address] [place], [place] [address]Performed By: #### 75636- 8 ####[facility] LABCLIA [id number] [place], [place] [address]JSH (RBC) [Entitic vol]98.4 kBSvsmwv70.0-100.0[facility] on above:Order Comment: Specimen Type: BLOOD SPECIMENOrdering Facility: [facility] Address:[address] [place], [place] [address]Performed By: #### 94504-4 ####[facility] LABIA [id number] [place], [place] [address]Umxbjquob (Bld) [#/Vol]1.03 10*3/uLHigh<0.87[facility] on above:Order Comment: Specimen Type: BLOOD SPECIMENOrdering Facility: [facility] Address:[address] [place], [place] [address]Performed By: #### 43721- 8 ####[facility] LABCLIA [id number] [place], [place] [address]Oahvffzog/100 WBC (Bld)22.1 %NormalUniversity Hospitals TriPoint [facility] Center on above:Order Comment: Specimen Type: BLOOD SPECIMENOrdering Facility: [facility] Address:[address] [place], [place] [address]Performed By: #### 10750-4 ####[facility] LABCLIA [id number] [place], [place] [address]Hsubqmcilph (Bld) [#/Vol]2.77 10*3/uLNormal1.45-7.50[facility] on above:Order Comment: Specimen Type: BLOOD SPECIMENOrdering Facility: [facility] Address:[address] [place], [place] [address]Performed By: #### 84201-0 ####[facility] LABCLIA [id number] [place], [place] [address]Topgcsyesry/100 WBC (Bld)59.5 %NormalUniversity Hospitals TriPoint Medical Center on above:Order Comment: Specimen Type: BLOOD SPECIMENOrdering Facility: [facility] Address:[address] [place], [place] [address]Performed By: #### 84863-2 ####[facility] LABCLIA [id number] [place], [place] [address]Cbcikexbl RBC (Bld) [#/Vol] 10*3/uLNormal<0.01[facility] on above:Order Comment: Specimen Type: BLOOD SPECIMENOrdering Facility: [facility] Address:[address] [place], [place] [address]Performed By: #### 03039-5 ####[facility] LABCLIA [id number] [place], [place] [address]Dtmbicnvm RBC/100 WBC (Bld) [Ratio]0.0 /100 WBCNormal [facility] on above:Order Comment: Specimen Type: BLOOD SPECIMENOrdering Facility: [facility] Address:[address] [place], [place] [address]Performed By: #### 51966-5 ####[facility] LABIA [id number] [place], [place] [address]Ssexwjrc mean volume (Bld) [Entitic vol]10.0 fLNormal9.0-12.7CCincinnati Shriners Hospital on above:Order Comment: Specimen Type: BLOOD SPECIMENOrdering Facility: [facility] Address:[address] [place] [address] Performed By: #### 70591-7 ####[facility] LABCLIA [id number] [place], [place] [address]Ibuyykqol (Bld) [#/Vol]72 10*3/pRPqf331-966YjncauuyyUniversity Hospitals TriPoint Medical Center on above:Order Comment: Specimen Type: BLOOD SPECIMENOrdering Facility: [facility] Address:[address] [place], [place] [address]Result Comment: No clot detected. Performed By: #### 03874-5 ####[facility] LABCLIA [id number] [place], [place] [address]COK (Bld) [#/Vol]3.75 10*6/uL Low4.20-6.00[facility] on above:Order Comment: Specimen Type: BLOOD SPECIMENOrdering Facility: [facility] Address:[address] [place], [place] [address]Performed By: #### 72207-1 ####[facility] LABIA [id number] [place] [address] WBC (Bld) [#/Vol]4.66 10*3/uLNormal3.70-11.00[facility] on above:Order Comment: Specimen Type: BLOOD SPECIMENOrdering Facility: [facility] Address:[address] [place] [address] Performed By: #### 47764-7 ####[facility] LABCLIA [id number] [place], [place] [address]KZK CBC W AUTO DIFF BLDon 41-80-4313KCE BASOPHILS # BLD AUTO<0.03NINFNOUniversity Health Lakewood Medical CenterF DIFFERENTIAL METHOD BLDAutoNOMS HealthcareF EOSINOPHIL # BLD AUTO0.25NINFNOUniversity Health Lakewood Medical CenterF LYMPHOCYTES # BLD AUTO0.57LowNOFreeman Orthopaedics & Sports Medicine MONOCYTES # BLD AUTO1.03High NINNOUniversity Health Lakewood Medical CenterF NEUTROPHILS # BLD AUTO2.77NOUniversity Health Lakewood Medical CenterF NRBC # BLD AUTO<0.01NINFNOUniversity Health Lakewood Medical CenterF NRBC/100 WBC BLD-RTO0/100 WBCMadison Medical CenterF PLATELET # BLD RZVX42UrtMERFEllett Memorial HospitalComment on above:No clot detected.CCF PMV BLD AUTO10 fL9.0 - 12.7 fLMadison Medical CenterF WBC # BLD AUTO4.66NOSaint Mary's Health Center IMM GRANULOCYTES # BLD AUTO<0.03NINFEllett Memorial HospitalIMM GRANULOCYTES/LEUK NFR BLD AUTO0.4 %NOMS HealthcareSpecimen Type: BLOOD SPECIMEN [facility] Address: [address] [place] [address] Original Ordering Provider: HILARY CALZADAYNCCNOVSPon 04-05-2025 CNOVSPNormalMartins Ferry HospitalComprehensive metabolic 2000 panelOrdered By: Bertin Key on 71-04-8036Qlgenxz [Mass/Vol]3.9 g/dL3.9 - 4.9 g/dLHickory Valley ClinicALP [Catalytic activity/Vol]81 U/L38 - 113 U/LCleveland ClinicALT [Catalytic activity/Vol]28 U/L10 - 54 U/LCleveland ClinicAnion gap [Moles/Vol]10 mmol/L8 - 15 mmol/LCleveland ClinicAST [Catalytic activity/Vol]35 U/L14 - 40 U/LCleveland ClinicBilirubin [Mass/Vol]0.3 mg/dL0.2 - 1.3 mg/dLOhiohealth Hardin [facility] Hospital Calcium [Mass/Vol]9.3 mg/dL8.5 - 10.2 mg/dLHickory Valley ClinicChloride [Moles/Vol] 106 mmol/L98 - 107 mmol/LCleveland ClinicCO2 [Moles/Vol]23 mmol/L22 - 30 mmol/L [facility] HospitalCreatinine [Mass/Vol]0.67 mg/dLLow0.73 - 1.22 mg/dLOhiohealth Hardin Memorial HospitalGFR/1.73 sq M.predicted among non-blacks MDRD (S/P/Bld) [Vol rate/Area]103 mL/min/{1.73_m2}- PINFCleveland ClinicComment on above:Estimated Glomerular Filtration Rate (eGFR) is calculated using the 2020 CKD-EPI creatinine equation. This equation utilizes serum creatinine, sex, and age as parameters. The creatinine assay has traceable calibration to isotope dilution-mass spectrometry. Refer to KDIGO guidelines for clinical interpretation. In patients with unstable renal function, e.g. those with acute kidney injury, the eGFRmay not accurately reflect actual GFR.Glucose [Mass/Vol]99 mg/dL74 - 99 mg/dL [facility] on above:The [place] Diabetes Association (ADA) provides guidance for cutoff values for fasting glucose andrandom glucose. The ADA defines fasting as no caloric intake for at least 8 hours. Fasting plasma gl ucose results between 100 to 125 mg/dL indicate [...] Standards of Medical Care in Diabetes 2016, [place] [employer]. Diabetes Care. 2016.39(Suppl 1). Interpretation and review of laboratory resultsAbnormalCleveland ClinicPotassium [Moles/Vol]4 mmol/L3.7 - 5.1 mmol/LCwhite hospital ClinicProtein [Mass/Vol]6.5 g/dL 6.3 - 8.0 g/dLHickory Valley ClinicSodium [Moles/Vol]139 mmol/L136 - 144 mmol/L [facility] HospitalUrea nitrogen [Mass/Vol]10 mg/dL9 - 24 mg/dLSelect Medical Ohiohealth Rehabilitation HospitalComprehensive metabolic 2000 panelon 62-70-3842Avwozfx [Mass/Vol]3.9 g/dLNormal3.9-4.9CCincinnati Shriners Hospital on above:Order Comment: Specimen Type: BLOOD SPECIMENOrdering Facility: [facility] Address:[address], [place] [address]Wxkakzcrk By: #### 12704- 8 ####[facility] LABCLIA [id number] [place], [place] [address]SLY [Catalytic activity/Vol]81 U/GSopoph28-863FjwpeeecwUniversity Hospitals TriPoint [facility] on above:Order Comment: Specimen Type: BLOOD SPECIMENOrdering Facility: [facility] Address:[address] [place], [place] [address]Performed By: #### 86309-6 ####[facility] LABCLIA [id number] [place] [address]WHX [Catalytic activity/Vol]28 U/GXchxdg16-24PfxkmmcisUniversity Hospitals [facility]Point [facility] on above:Order Comment: Specimen Type: BLOOD SPECIMENOrdering Facility: [facility] Address:[address] [place], [place] [address]Performed By: #### 26193- 8 ####[facility] LABCLIA [id number] [facility] [place], [place] [address]Ntwwp gap [Moles/Vol]10 mmol/LNormal8-15[facility] on above:Order Comment: Specimen Type: BLOOD SPECIMENOrdering Facility: [facility] Address:[address] [place], [place] [address]Performed By: #### 45104-0 ####[facility] LABCLIA [id number] JOHANNY MARCO AVETER[facility] [place], [place] [address]VBO [Catalytic activity/Vol]35 U/ATixutg11-99UzwtspsuuUniversity Hospitals TriPoint [facility] Center on above:Order Comment: Specimen Type: BLOOD SPECIMENOrdering Facility: [facility] Address:[address] [place], [place] [address]Performed By: #### 74476-0 ####[facility] LABCLIA [id number] [facility] HICKSGERMANVETERANS HEALTH ADMINIST[facility] [place] [address] Bilirubin [Mass/Vol]0.3 mg/dLNormal0.2-1.3CCincinnati Shriners Hospital on above:Order Comment: Specimen Type: BLOOD SPECIMENOrdering Facility: [facility] Address:[address] [place], [place] [address]Performed By: #### 42381-0 ####[facility] LABCLIA [id number] [facility] CENTERGER[place]ST[place], [place] [address]Rscmuqo [Mass/Vol]9.3 mg/dLNormal8.5-10.2CCincinnati Shriners Hospital on above:Order Comment: Specimen Type: BLOOD SPECIMENOrdering Facility: [facility] Address:[address] [place], [place] [address]Performed By: #### 24793-8 ####[facility] LABCLIA [id number] [place], [place] [address]Vdaxgznf [Moles/Vol]106 mmol/KGaccva58-558ZbsxkfzgsUniversity Hospitals TriPoint [facility] Center on above: Order Comment: Specimen Type: BLOOD SPECIMENOrdering Facility: [facility] Address:[address] [place], [place] [address]Performed By: #### 63269- 8 ####[facility] LABCLIA [id number] [place], [place] [address]GV7 [Moles/Vol]23 mmol/JGnvjqx19-05WlsfckkfcUniversity Hospitals TriPoint [facility] Center on above:Order Comment: Specimen Type: BLOOD SPECIMENOrdering Facility: [facility] Address:[address] [place], [place] [address]Performed By: #### 03873-2 ####[facility] LABCLIA [id number] [place], [place] [address]Qemqbclvfn [Mass/Vol]0.67 mg/dL Low0.73-1.22[facility] on above:Order Comment: Specimen Type: BLOOD SPECIMENOrdering Facility: [facility] Address:[address] [place], [place] [address]Performed By: #### 42270-6 ####[facility] LABCLIA [id number] [place] [address] Creatinine and Glomerular filtration rate.predicted panel (S/P/Bld)103 mL/min/1.73m???Normal>=60[facility] on above:Order Comment: Specimen Type: BLOOD SPECIMENOrdering Facility: [facility] Address:[address] [place], [place] [address]Result Comment: Estimated Glomerular Filtration Rate (eGFR) is calculated using the 2020 CKD-EPI cre atinine equation. This equation utilizes serum creatinine, sex, and age as parameters. The creatinine assay has traceable calibration to isotope dilution- mass spectrometry. Refer to KDIGO guidelines for clinical interpretation. In patients with unstable renal function, e.g. those with acute kidney injury, the eGFR may not accurately reflect actual GFR.Performed By: #### 93639-0 ####[facility] LABCLIA [id number] [place], [place] [address]Uxqncrs [Mass/Vol]99 mg/tCVtjvxm93-25QsomumgvcUniversity Hospitals TriPoint [facility] Center on above:Order Comment: Specimen Type: BLOOD SPECIMENOrdering Facility: [facility] Address:[address] [place] [address]Wnlnji Comment: The [place] Diabetes Association (ADA) provides guidance for cutoff values for fasting glucose and random glucose. The ADA defines fasting as no caloric intake for at least 8 hours. Fasting plasma glucose results between 100 to 125 mg/dL indicate increased risk for diabetes (prediab etes).Fasting plasma glucose results greater than or equal to 126 mg/dL meet the criteria for diagnosis of diabetes. In the absence of unequivocal hyperglycemia, results should be confirmed by repeattesting. In a patient with classic symptoms of hyperglycemia or hyperglycemic crisis, random plasmaglucose results greater than or equal to 200 mg/dL meet the criteria for diagnosis of diabetes.Reference: Standards of Medical Care in Diabetes 2016, [place] Diabetes Association. Diabetes Care. 2016.39(Suppl 1).Performed By: #### 94628-3 ####[facility] LABCLIA [id number] [place], [place] [address]Yvuywkbsw [Moles/Vol]4.0 mmol/LNormal3.7-5.1CCincinnati Shriners Hospital on above:Order Comment: Specimen Type: BLOOD SPECIMENOrdering Facility: [facility] Address:[address] [place], [place] [address]Nuravfekp By: #### 84028-7 ####[facility] LABCLIA [id number] [place], [place] [address]Raqdlhr [Mass/Vol]6.5 g/dLNormal6.3-8.0[facility] on above:Order Comment: Specimen Type: BLOOD SPECIMENOrdering Facility: [facility] Address:[address] [place], [place] [address]Performed By: #### 78396- 8 ####[facility] LABCLIA [id number] [place], [place] [address]Cdhiwl [Moles/Vol]139 mmol/SAkikgd587-314VjeixjwozUniversity Hospitals TriPoint Medical Center on above:Order Comment: Specimen Type: BLOOD SPECIMENOrdering Facility: [facility] Address:[address] [place], [place] [address]Performed By: #### 77823-4 ####[facility] LABCLIA [id number] [place], [place] [address]Zcss nitrogen [Mass/Vol]10 mg/dLNormal9-24[facility] on above:Order Comment: Specimen Type: BLOOD SPECIMENOrdering Facility: [facility] Address:[address] [place], [place] [address]Performed By: #### 72358-3 ####[facility] LABIA [id number] [place], [place] [address]Vdsdsprdbo - Hematology and Cell countson 04-05-2025 Basophils/100 WBC (Bld)0.4 %[facility] HospitalEosinophils/100 WBC (Bld)5.4 %[facility] Memorial HospitalErythrocyte distribution width (RBC) [Ratio]14.5 %11.5 - 15.0 %[facility] Memorial HospitalHematocrit (Bld) [Volume fraction]36.9 %Low39.0 - 51.0 %[facility] HospitalHemoglobin (Bld) [Mass/Vol]12.9 g/dLLow13.0 - 17.0 g/dLEllett Memorial Hospital Lymphocytes/100 WBC (Bld)12.2 %[facility] HospitalH (RBC) [Entitic mass]34.4 pg High26.0 - 34.0 pgNOOzarks Medical CenterHC (RBC) [Mass/Vol]35 g/dL30.5 - 36.0 g/dL [facility] HospitalV (RBC) [Entitic vol]98.4 fL80.0 - 100.0 fLEllett Memorial Hospital Monocytes/100 WBC (Bld)22.1 %[facility] Memorial HospitalNeutrophils/100 WBC (Bld)59.5 %[place] [facility] HealthcareRBC (Bld) [#/Vol]3.75 10*6/uLLow4.20 - 6.00 m/uLEllett Memorial HospitalNo Panel Informationon 12-32-8242Onvysthozgtyyj and review of laboratory results AbnormalSSM [facility] HealthcareCNPNon 33-33-6246UAOMDmgqosSjqpixxgz Clinic ClevelandCBC W Auto Differential panel (Bld)on 06-19-7754Wxsssrlnv (Bld) [#/Vol]NINFClevelatrium health union west ClinicBasophils/100 WBC (Bld)0.4 %[facility] Differential cell count method Nom (Bld)AutoCleveland ClinicEosinophils (Bld) [#/Vol]0.16 10*3/uLNINFOhiohealth Hardin Memorial HospitalEosinophils/100 WBC (Bld)3.2 %[facility] HospitalErythrocyte distribution width (RBC) [Ratio]14.4 %11.5 - 15.0 %[facility] HospitalHematocrit (Bld) [Volume fraction]35.7 %Low39.0 - 51.0 %[facility] Hemoglobin (Bld) [Mass/Vol]12.3 g/dLLow13.0 - 17.0 g/dLOhiohealth Hardin Memorial HospitalImmature granulocytes (Bld) [#/Vol]NINFClevelGenesis HospitalImmature granulocytes/100 WBC (Bld)0.4 %[facility] HospitalInterpretation and review of laboratory results AbnormalOhiohealth Hardin Memorial HospitalLymphocytes (Bld) [#/Vol]0.46 10*3/uLLowOhiohealth Hardin Memorial Hospital Lymphocytes/100 WBC (Bld)9.3 %[facility] HospitalH (RBC) [Entitic mass]34.5 pg High26.0 - 34.0 pgCOur Lady of Mercy Hospital - AndersonMCHC (RBC) [Mass/Vol]34.5 g/dL30.5 - 36.0 g/dL [facility] HospitalV (RBC) [Entitic vol]100 fL80.0 - 100.0 fLCOur Lady of [facility] Anderson Monocytes (Bld) [#/Vol]1.19 10*3/uLHighNINFOhiohealth Hardin Memorial HospitalMonocytes/100 WBC (Bld)23.9 %[facility] HospitalNeutrophils (Bld) [#/Vol]3.12 10*3/uLOhiohealth [facility]in [facility] Hospital Neutrophils/100 WBC (Bld)62.8 %[facility] HospitalNucleated RBC (Bld) [#/Vol]NINF [facility] HospitalNucleated RBC/100 WBC (Bld) [Ratio]0 %/100 WBCOhiohealth Hardin Memorial Hospital Platelet mean volume (Bld) [Entitic vol]9.6 fL9.0 - 12.7 fLCOur Lady of [facility] - Anderson Platelets (Bld) [#/Vol]94 10*3/uLLowOhiohealth Hardin Memorial HospitalComment on above:Results checked and verified.No clot detected.RBC (Bld) [#/Vol]3.57 10*6/uLLow4.20 - 6.00 m/[facility] CenterWBC (Bld) [#/Vol]4.97 10*3/uLThe University of Toledo Medical CenterBasophils (Bld) [#/Vol]10*3/uLNormal<0.11CSelect Medical Specialty Hospital - Cleveland-FairhillComment on above:Order Comment: Specimen Type: BLOOD SPECIMENOrdering Facility: [facility] Address:[address] [place] [address] Performed By: #### 64001-1 ####[facility] LABCLIA [id number] [place], [place] [address]Vmymmxoxq/100 WBC (Bld)0.4 % NormalMartins Ferry HospitalComascension standish hospital on above:Order Comment: Specimen Type: BLOOD SPECIMENOrdering Facility: [facility] Address:[address] [id number] By: #### 71343-0 ####[facility] LABCLIA [id number] [place] [address] Differential cell count method Nom (Bld)AutoNormalCSelect Medical Specialty Hospital - [place]-[facility] Comment on above:Order Comment: Specimen Type: BLOOD SPECIMENOrdering Facility: [facility] Address:[address] [place] [address] Performed By: #### 29221-0 ####[facility] LABCLIA [id number] [place], [place] [address]Ffvbflkzmlv (Bld) [#/Vol]0.16 10*3/uLNormal<0.46[facility] on above:Order Comment: Specimen Type: BLOOD SPECIMENOrdering Facility: [facility] Address:[address] [place], [place] [address]Performed By: #### 46473-8 ####[facility] LABCLIA [id number] [place], [place] [address]Gfvrehupdbf/100 WBC (Bld)3.2 %NormalUniversity Hospitals TriPoint Medical Center on above:Order Comment: Specimen Type: BLOOD SPECIMENOrdering Facility: [facility] Address:[address] [place], [place] [address]Performed By: #### 19114-0 ####[facility] LABIA [id number] [place], [place] [address]Lfdlxmqtrwl distribution width (RBC) [Ratio]14.4 %Mtkfrm23.5-15.0[facility] on above: Order Comment: Specimen Type: BLOOD SPECIMENOrdering Facility: [facility] Address:[address] [place], [place] [address]Performed By: #### 05030- 8 ####[facility] LABCLIA [id number] [place], [place] [address]Aopnrxndvy (Bld) [Volume fraction]35.7 %Low39.0-51.0 [facility] on above:Order Comment: Specimen Type: BLOOD SPECIMENOrdering Facility: [facility] Address:[address] [place], [place] [address]Performed By: #### 00508-7 ####[facility] LABIA [id number] [place], [place] [address]Dlpjbutkkw (Bld) [Mass/Vol]12.3 g/dLLow13.0-17.0[facility] on above:Order Comment: Specimen Type: BLOOD SPECIMENOrdering Facility: [facility] Address:[address] [place], [place] [address]Performed By: #### 33482- 8 ####[facility] LABCLIA [id number] [place], [place] [address]Rjzepsxq granulocytes (Bld) [#/Vol]10*3/uLNormal<0.10 [facility] on above:Order Comment: Specimen Type: BLOOD SPECIMENOrdering Facility: [facility] Address:[address] [place], [place] [address]Performed By: #### 46322-6 ####[facility] LABCLIA [id number] [place], [place] [address]Qqnzyhfx granulocytes/100 WBC (Bld)0.4 %[facility] on above: Order Comment: Specimen Type: BLOOD SPECIMENOrdering Facility: [facility] Address:[address] [place], [place] [address]Performed By: #### 05439- 8 ####[facility] LABCLIA [id number] [place], [place] [address]Kephppsqbhe (Bld) [#/Vol]0.46 10*3/uLLow1.00-4.00 [facility] on above:Order Comment: Specimen Type: BLOOD SPECIMENOrdering Facility: [facility] Address:[address] [place], [place] [address]Performed By: #### 28460-1 ####[facility] LABIA [id number] [place], [place] [address]Kqwlfpcdndl/100 WBC (Bld)9.3 %NormalUniversity Hospitals TriPoint Medical Center on above:Order Comment: Specimen Type: BLOOD SPECIMENOrdering Facility: [facility] Address:[address] [place], [place] [address]Performed By: #### 58775-3 ####[facility] LABCLIA [id number] [place], [place] [address]KXY (RBC) [Entitic mass]34.5 duOpbw19.0-34.0[facility] on above:Order Comment: Specimen Type: BLOOD SPECIMENOrdering Facility: [facility] Address:[address] [place], [place] [address]Performed By: #### 73429-5 ####[facility] LABCLIA [id number] [place], [place] [address]EJBE (RBC) [Mass/Vol]34.5 g/yLJnnjsd15.5-36.0[facility] on above: Order Comment: Specimen Type: BLOOD SPECIMENOrdering Facility: [facility] Address:[address] [place], [place] [address]Performed By: #### 94504- 8 ####[facility] LABCLIA [id number] [place], [place] [address]KCT (RBC) [Entitic vol]100.0 wKRnpdlm21.0-100.0[facility] on above:Order Comment: Specimen Type: BLOOD SPECIMENOrdering Facility: [facility] Address:[address] [place], [place] [address]Performed By: #### 93332-8 ####[facility] LABCLIA [id number] [place], [place] [address]Ccrmpadet (Bld) [#/Vol]1.19 10*3/uLHigh<0.87[facility] on above:Order Comment: Specimen Type: BLOOD SPECIMENOrdering Facility: [facility] Address:[address] [place], [place] [address]Performed By: #### 21780- 8 ####[facility] LABIA [id number] [place], [place] [address]Xoeyorytb/100 WBC (Bld)23.9 %NormalUniversity Hospitals TriPoint Medical Center on above:Order Comment: Specimen Type: BLOOD SPECIMENOrdering Facility: [facility] Address:[address] [place], [place] [address]Performed By: #### 56285-3 ####[facility] LABCLIA [id number] [place], [place] [address]Ntcvjaktudn (Bld) [#/Vol]3.12 10*3/uLNormal1.45-7.50[facility] on above:Order Comment: Specimen Type: BLOOD SPECIMENOrdering Facility: [facility] Address:[address] [place], [place] [address]Performed By: #### 41488-5 ####[facility] LABCLIA [id number] [place], [place] [address]Tuxspvhgdrx/100 WBC (Bld)62.8 %NormalUniversity Hospitals TriPoint Medical Center on above:Order Comment: Specimen Type: BLOOD SPECIMENOrdering Facility: [facility] Address:[address] [place], [place] [address]Performed By: #### 01380-4 ####[facility] LABCLIA [id number] [place], [place] [address]Xzvyycpte RBC (Bld) [#/Vol] 10*3/uLNormal<0.01[facility] on above:Order Comment: Specimen Type: BLOOD SPECIMENOrdering Facility: [facility] Address:[address] [place], [place] [address]Performed By: #### 78683-0 ####[facility] LABCLIA [id number] [place], [place] [address]Qkrrtvytf RBC/100 WBC (Bld) [Ratio]0.0 /100 WBCNormal [facility] on above:Order Comment: Specimen Type: BLOOD SPECIMENOrdering Facility: [facility] Address:[address] [place], [place] [address]Performed By: #### 52413-8 ####[facility] LABCLIA [id number] [place], [place] [address]Xzygqjst mean volume (Bld) [Entitic vol]9.6 fLNormal9.0-12.7CCincinnati Shriners Hospital on above:Order Comment: Specimen Type: BLOOD SPECIMENOrdering Facility: [facility] Address:[address] [place] [address] Performed By: #### 36195-7 ####[facility] LABCLIA [id number] [place], [place] [address]Gbzkbzafo (Bld) [#/Vol]94 10*3/bHLdf408-532ZkkdckjtvUniversity Hospitals TriPoint [facility] Center on above:Order Comment: Specimen Type: BLOOD SPECIMENOrdering Facility: [facility] Address:[address] [place], [place] [address]Result Comment: Results checked and verified.No clot detected.Performed By: #### 11990-6 ####[facility] LABIA [id number] [place], [place] [address]JJG (Bld) [#/Vol]3.57 10*6/uLLow4.20-6.00[facility] on above:Order Comment: Specimen Type: BLOOD SPECIMENOrdering Facility: [facility] Address:[address] [place], [place] [address]Performed By: #### 74551- 8 ####[facility] LABCLIA [id number] [place], [place] [address]CXQ (Bld) [#/Vol]4.97 10*3/uLNormal3.70-11.00[facility] on above:Order Comment: Specimen Type: BLOOD SPECIMENOrdering Facility: [facility] Address:[address] [place], [place] [address]Performed By: #### 38614-4 ####[facility] LABIA [id number] [place], [place] [address]RDN COMP METAB 2000 PNL SERPLon 86-52-9065WCV AST SERPL-CCNC36 U/L14 - 40 U/LNOMS HealthcareCCF BILIRUB SERPL-MCNC0.2 mg/dL0.2 - 1.3 mg/dLNOSaint Mary's Health CenterCCF PROT SERPL-MCNC6.3 g/dL6.3 - 8.0 g/dLNORI HealthcareGFR/1.73 sq M.predicted CKD-EPI (S/P/Bld) [Vol rate/Area]106- PINCenterpoint Medical CenterComment on above:Estimated Glomerular Filtration Rate (eGFR) is calculated using the 2020 CKD-EPI creatinine equation. This equation utilizes serum creatinine, sex, and age as parameters. The creatinine assay has traceable calibration to isotope dilution-mass spectrometry. Refer to KDIGO guidelines for clinical interpretation. In patients with unstable renal function, e.g. those with acute kidney injury, the eGFRmay not accurately reflect actual GFR.Specimen Type: BLOOD SPECIMEN [facility] Address: [address] [place] [address] Original Ordering Provider: HILARY GA MAGNESIUM SERPL-MCNC on 87-99-4365Mdotmdmc Type: BLOOD SPECIMEN [facility] Address: [address] [place] [address] Original Ordering Provider: HILARY Romero 12-73-9912BBKF NormalMartins Ferry HospitalCNOVSPon 94-77-6158XNQJTVZkrwbsPsqasfjvo Clinic ClevelandComprehensive metabolic 1999 panelOrdered By: Bertin Key on 03-23-2025 AST [Catalytic activity/Vol]36 U/L14 - 40 U/LCleveland ClinicBilirubin [Mass/Vol]0.2 mg/dL0.2 - 1.3 mg/dLOhiohealth Hardin Memorial HospitalGFR/1.73 sq M.predicted among non-blacks MDRD (S/P/Bld) [Vol rate/Area]106 mL/min/{1.73_m2}- SCCI Hospital LimaComment on above:Estimated Glomerular Filtration Rate (eGFR) is calculated using the 2020 CKD-EPI creatinine equation. This equation utilizes serum creatinine, sex, and age as parameters. The creatinine assay has traceable calibration to isotope dilution-mass spectrometry. Refer to KDIGO guidelines for clinical interpretation. In patients with unstable renal function, e.g. those with acute kidney injury, the eGFRmay not accurately reflect actual GFR.Protein [Mass/Vol]6.3 g/dL6.3 - 8.0 g/dLLicking Memorial Hospitalhenve metabolic 2000 panelon 35-97-0935Inrbglh [Mass/Vol]3.9 g/dLNormal3.9-4.9CCincinnati [facility]rin[facility] on above:Order Comment: Specimen Type: BLOOD SPECIMENOrdering Facility: [facility] Address:[address] [place], [place] [address]Performed By: #### 26099-0, 08344-7 ####[facility] LABCLIA [id number] [place], [place] [address]TII [Catalytic activity/Vol]81 U/JFfmkmv31-047LpzfknhkdUniversity Hospitals [facility]Point [facility] Center on above:Order Comment: Specimen Type: BLOOD SPECIMENOrdering Facility: [facility] Address:[address] [place], [place] [address]Performed By: #### 06052- 9, 73745-3 ####[facility] LABCLIA [id number] [place], [place] [address]YMA [Catalytic activity/Vol]28 U/TPphmpj58-70 [facility] on above:Order Comment: Specimen Type: BLOOD SPECIMENOrdering Facility: [facility] Address:[address] [place], [place] [address]Performed By: #### 28987-1, 60975-2 ####[facility] LABCLIA [id number] [place], [place] [address]Ypclm gap [Moles/Vol]9 mmol/LNormal8-15[facility] on above: Order Comment: Specimen Type: BLOOD SPECIMENOrdering Facility: [facility] Address:[address] [place], [place] [address]Performed By: #### 06076- 9, 67291-3 ####[facility] LABCLIA [id number] [place], [place] [address]TAA [Catalytic activity/Vol]36 U/BWczzsi56-84 [facility] on above:Order Comment: Specimen Type: BLOOD SPECIMENOrdering Facility: [facility] Address:[address] [place], [place] [address]Performed By: #### 08646-3, 85289-2 ####[facility] LABCLIA [id number] [place] [address] Bilirubin [Mass/Vol]0.2 mg/dLNormal0.2-1.3CCincinnati Shriners Hospital on above:Order Comment: Specimen Type: BLOOD SPECIMENOrdering Facility: [facility] Address:[address] [place], [place] [address]Performed By: #### 77650-5, 82434-0 ####[facility] LABCLIA [id number] [place], [place] [address]Pmepaxc [Mass/Vol]9.4 mg/dLNormal8.5-10.2 [facility] on above:Order Comment: Specimen Type: BLOOD SPECIMENOrdering Facility: [facility] Address:[address] [place], [place] [address]Performed By: #### 18968-7, 10170-1 ####[facility] LABCLIA [id number] [place], [place] [address]Quqxfdcf [Moles/Vol]106 mmol/GZwjuci16-899HfexuihlrUniversity Hospitals TriPoint [facility] Center on above: Order Comment: Specimen Type: BLOOD SPECIMENOrdering Facility: [facility] Address:[address] [place], [place] [address]Performed By: #### 97988- 9, 77321-6 ####[facility] LABCLIA [id number] [place], [place] [address]FD9 [Moles/Vol]23 mmol/PCopfvg05-58NspggrewwUniversity Hospitals [facility] on above:Order Comment: Specimen Type: BLOOD SPECIMENOrdering Facility: [facility] Address:[address] [place] [address]Idozzkkds By: #### 52636-9, 80475-4 ####[facility] LABIA [id number] [place], [place] [address]Oiwyoaqreq [Mass/Vol] 0.61 mg/dLLow0.73-1.22[facility] on above:Order Comment: Specimen Type: BLOOD SPECIMENOrdering Facility: [facility] Address:[address] [place] [address]Ucnwkucjv By: #### 05459-1, 79348-4 ####[facility] LABIA [id number] [place], [place] [address]Rjcheljfus and Glomerular filtration rate.predicted panel (S/P/Bld)106 mL/min/1.73m???Normal>=60[facility] on above:Order Comment: Specimen Type: BLOOD SPECIMENOrdering Facility: [facility] Address:[address] [place] [address]Jswqwq Comment: Estimated Glomerular Filtration Rate (eGFR) is calculated using the 2020 CKD-EPI creatinine equation. This equation utilizes serum creatinine, sex, and age as parameters. The creatinine assay has traceable calibration to isotope dilution- mass spectrometry. Refer to KDIGO guidelines for clinical interpretation. In patients with unstable renal function, e.g. those with acute kidney injury, the eGFR may not accurately reflect actual GFR.Performed By: #### 70062-1, 98506-1 ####[facility] LABIA [id number] [place], [place] [address]Giiqhoc [Mass/Vol]98 mg/rTDmlrrs10-98DyktvdproUniversity Hospitals TriPoint [facility] Center on above:Order Comment: Specimen Type: BLOOD SPECIMENOrdering Facility: [facility] Address:[address] [place] [address]Kjtrih Comment: The [place] Diabetes Association (ADA) provides guidance for cutoff values for fasting glucose and random glucose. The ADA defines fasting as no caloric intake for at least 8 hours. Fasting plasma glucose results between 100 to 125 mg/dL indicate increased risk for diabetes (prediab etes).Fasting plasma glucose results greater than or equal to 126 mg/dL meet the criteria for diagnosis of diabetes. In the absence of unequivocal hyperglycemia, results should be confirmed by repeattesting. In a patient with classic symptoms of hyperglycemia or hyperglycemic crisis, random plasmaglucose results greater than or equal to 200 mg/dL meet the criteria for diagnosis of diabetes.Reference: Standards of Medical Care in Diabetes 2016, [place] [employer]. Diabetes Care. 2016.39(Suppl 1).Performed By: #### 54278- 9, ####[facility] LABCLIA [id number] [place], [place] [address]Zbyyjknca [Moles/Vol]4.0 mmol/LNormal3.7-5.1 [facility] on above:Order Comment: Specimen Type: BLOOD SPECIMENOrdering Facility: [facility] Address:[address] [place], [place] [address]Performed By: #### 95700-0, ####[facility] LABCLIA [id number] [place], [place] [address]Kaprmrp [Mass/Vol]6.3 g/dLNormal6.3-8.0[facility] on above:Order Comment: Specimen Type: BLOOD SPECIMENOrdering Facility: [facility] Address:[address] [place], [place] [address]Performed By: #### 57995- 9, ####[facility] LABCLIA [id number] [place], [place] [address]Osdozy [Moles/Vol]138 mmol/HMcbria842-576XsilwdnheUniversity Hospitals TriPoint [facility] Center on above:Order Comment: Specimen Type: BLOOD SPECIMENOrdering Facility: [facility] Address:[address] [place], [place] [address]Performed By: #### 48957-6, ####[facility] LABCLIA [id number] [place], [place] [address]Eldx nitrogen [Mass/Vol]7 mg/dLLow9-24Martins Ferry HospitalComment on above: Order Comment: Specimen Type: BLOOD SPECIMENOrdering Facility: [facility] Address:[address] [place], [place] [address]Piwexohfp By: #### 00371- 9, 35789-4 ####[facility] LABCLIA [id number] [place], [place] [address]Kjgcltoxty - Chemistry and Chemistry - challengeon 95-73-8262Zleihbb [Mass/Vol]3.9 g/dL3.9 - 4.9 g/dLNOMS HealthcareALP [Catalytic activity/Vol]81 U/L38 - 113 U/LNOMS HealthcareALT [Catalytic activity/Vol]28 U/L 10 - 54 U/LNOMS HealthcareAnion gap [Moles/Vol]9 mmol/L8 - 15 mmol/LNOMS HealthcareCalcium [Mass/Vol]9.4 mg/dL8.5 - 10.2 mg/dLNOMS HealthcareChloride [Moles/Vol]106 mmol/L98 - 107 mmol/LNOMS HealthcareCO2 [Moles/Vol]23 mmol/L22 - 30 mmol/LNOMS HealthcareCreatinine [Mass/Vol]0.61 mg/dLLow0.73 - 1.22 mg/dLNOMS HealthcareGlucose [Mass/Vol]98 mg/dL74 - 99 mg/dLNOMS HealthcareComment on above:The [place] Diabetes Association (ADA) provides guidance for cutoff [...] Standards of Medical Care in Diabetes 2016, [place] [employer]. Diabetes Care. 2016.39(Suppl 1). Potassium [Moles/Vol]4 mmol/L3.7 - 5.1 mmol/LNOMS HealthcareSodium [Moles/Vol] 138 mmol/L136 - 144 mmol/LNOMS HealthcareUrea nitrogen [Mass/Vol]7 mg/dLLow9 - 24 mg/dLNOMS HealthcareMagnesium [Mass/Vol]1.9 mg/dL1.7 - 2.3 mg/dLNOMS HealthcareMagnesium SerPl-mCncon 49-90-4887Mbomxdhck [Mass/Vol]1.9 mg/dLNormal 1.7-2.3CSelect Medical Specialty Hospital - Cleveland-FairhillComascension standish hospital on above:Order Comment: Specimen Type: BLOOD SPECIMENOrdering Facility: [facility] Address:[address] [place] [address]Idymtqwkj By: #### 07030-9, 94123-0 ####[facility] LABCLIA [id number] [place], [place] [address]Pjjrtaetr [Mass/Vol]on 42-39-9435Qcezortihroyyn and review of laboratory resultsNormalCwhite hospital ClinicNo Panel Informationon 04-35-2764Htisemfhzlmwez and review of laboratory resultsAbnormalNOMS HealthcareNOMS HealthcareNOMS HealthcareCNPNon 01-03-7058HYLGLnveiwUofwelptn Clinic ClevelandCB W Auto Differential panel (Bld)on 21-70-7514Ojbfitawf (Bld) [#/Vol][facility] Differential cell count method Nom (Bld)AutoCleveland ClinicEosinophils (Bld) [#/Vol]0.18 10*3/uLNIACMC Healthcare SystemImmature granulocytes (Bld) [#/Vol]NINF [facility] HospitalImmature granulocytes/100 WBC (Bld)0.4 %[facility] Lymphocytes (Bld) [#/Vol]0.43 10*3/uLLowOhiohealth Hardin Memorial HospitalMonocytes (Bld) [#/Vol] 1.1 10*3/uLHighNIACMC Healthcare SystemNeutrophils (Bld) [#/Vol]3.05 10*3/uL [facility] HospitalNucleated RBC (Bld) [#/Vol]NINFCOur Lady of Mercy Hospital - AndersonNucleated RBC/100 WBC (Bld) [Ratio]0 %/100 WBCOhiohealth Hardin Memorial HospitalPlatelet mean volume (Bld) [Entitic vol]9.1 fL9.0 - 12.7 fLCOur Lady of Mercy Hospital - AndersonPlatelets (Bld) [#/Vol]94 10*3/uLLow [facility] HospitalComascension standish hospital on above:No clot detected.WBC (Bld) [#/Vol]4.8 10*3/uL [facility] HospitalBasophils (Bld) [#/Vol]10*3/uLNormal<0.11CSelect Medical Specialty Hospital - Cleveland-FairhillComment on above:Order Comment: Specimen Type: BLOOD SPECIMENOrdering Facility: [facility] Address:[address] [place], [place] [address]Performed By: #### 53106-5 ####[facility] LABIA [id number] [place], [place] [address]Dfgvjlxdb/100 WBC (Bld)0.4 % NormalUniversity Hospitals TriPoint Medical Center on above:Order Comment: Specimen Type: BLOOD SPECIMENOrdering Facility: [facility] Address:[address] [place], [place] [address]Performed By: #### [id number] ####[facility] LABIA [id number] [place] [address] Differential cell count method Nom (Bld)AutoNormalCSelect Medical Specialty [facility] Comment on above:Order Comment: Specimen Type: BLOOD SPECIMENOrdering Facility: [facility] Address:[address] [place] [address] Performed By: #### [id number] ####[facility] LABIA [id number] [place], [place] [address]Qrrnemcdbfm (Bld) [#/Vol]0.18 10*3/uLNormal<0.46[facility] on above:Order Comment: Specimen Type: BLOOD SPECIMENOrdering Facility: [facility] Address:[address] [place], [place] [address]Performed By: #### 52733-2 ####[facility] LABIA [id number] [place], [place] [address]Xconmrnkvqk/100 WBC (Bld)3.8 %NormalUniversity Hospitals TriPoint Medical Center on above:Order Comment: Specimen Type: BLOOD SPECIMENOrdering Facility: [facility] Address:[address] [place], [place] [address]Performed By: #### 80336-0 ####[facility] LABIA [id number] [place], [place] [address]Rbwbdqgvtpf distribution width (RBC) [Ratio]14.8 %Deeibw50.5-15.0[facility] on above: Order Comment: Specimen Type: BLOOD SPECIMENOrdering Facility: [facility] Address:[address] [place], [place] [address]Performed By: #### 31413- 8 ####[facility] LABCLIA [id number] [place], [place] [address]Stxrxiuirp (Bld) [Volume fraction]37.4 %Low39.0-51.0 [facility] on above:Order Comment: Specimen Type: BLOOD SPECIMENOrdering Facility: [facility] Address:[address] [place], [place] [address]Performed By: #### 57900-2 ####[facility] LABIA [id number] [place], [place] [address]Drlgctlnrp (Bld) [Mass/Vol]12.6 g/dLLow13.0-17.0[facility] on above:Order Comment: Specimen Type: BLOOD SPECIMENOrdering Facility: [facility] Address:[address] [place], [place] [address]Performed By: #### 95909- 8 ####[facility] LABIA [id number] [place], [place] [address]Aygaqpwx granulocytes (Bld) [#/Vol]10*3/uLNormal<0.10 [facility] on above:Order Comment: Specimen Type: BLOOD SPECIMENOrdering Facility: [facility] Address:[address] [place], [place] [address]Performed By: #### 48181-0 ####[facility] LABCLIA [id number] [place], [place] [address]Xcwdkhdx granulocytes/100 WBC (Bld)0.4 %NormalUniversity Hospitals TriPoint Medical Center on above: Order Comment: Specimen Type: BLOOD SPECIMENOrdering Facility: [facility] Address:[address] [place], [place] [address]Performed By: #### 20304- 8 ####[facility] LABCLIA [id number] [place], [place] [address]Hkxmedoluxg (Bld) [#/Vol]0.43 10*3/uLLow1.00-4.00 [facility] on above:Order Comment: Specimen Type: BLOOD SPECIMENOrdering Facility: [facility] Address:[address] [place], [place] [address]Performed By: #### 52785-9 ####[facility] LABIA [id number] [place], [place] [address]Pbiydioyfjs/100 WBC (Bld)9.0 %NormalUniversity Hospitals TriPoint Medical Center on above:Order Comment: Specimen Type: BLOOD SPECIMENOrdering Facility: [facility] Address:[address] [place], [place] [address]Performed By: #### 53039-2 ####[facility] LABCLIA [id number] [place], [place] [address]TQZ (RBC) [Entitic mass]33.8 jlQowtzv27.0-34.0[facility] on above:Order Comment: Specimen Type: BLOOD SPECIMENOrdering Facility: [facility] Address:[address] [place], [place] [address]Performed By: #### 00038-9 ####[facility] LABIA [id number] [place], [place] [address]TVFU (RBC) [Mass/Vol]33.7 g/jXAtqedd95.5-36.0[facility] on above: Order Comment: Specimen Type: BLOOD SPECIMENOrdering Facility: [facility] Address:[address] [place], [place] [address]Performed By: #### 75027- 8 ####[facility] LABCLIA [id number] [place], [place] [address]LQI (RBC) [Entitic vol]100.3 iULrof34.0-100.0[facility] on above:Order Comment: Specimen Type: BLOOD SPECIMENOrdering Facility: [facility] Address:[address] [place], [place] [address]Performed By: #### 78777-9 ####[facility] LABIA [id number] [place], [place] [address]Zkhgxciks (Bld) [#/Vol]1.10 10*3/uLHigh<0.87[facility] on above:Order Comment: Specimen Type: BLOOD SPECIMENOrdering Facility: [facility] Address:[address] [place], [place] [address]Performed By: #### 51123- 8 ####[facility] LABCLIA [id number] [place], [place] [address]Xigvexket/100 WBC (Bld)22.9 %NormalUniversity Hospitals TriPoint Medical Center on above:Order Comment: Specimen Type: BLOOD SPECIMENOrdering Facility: [facility] Address:[address] [place], [place] [address]Performed By: #### 26529-0 ####[facility] LABIA [id number] [place], [place] [address]Mtqcjhuapjy (Bld) [#/Vol]3.05 10*3/uLNormal1.45-7.50[facility] on above:Order Comment: Specimen Type: BLOOD SPECIMENOrdering Facility: [facility] Address:[address] [place], [place] [address]Performed By: #### 27124-5 ####[facility] LABCLIA [id number] [place], [place] [address]Rszhudasdaf/100 WBC (Bld)63.5 %NormalUniversity Hospitals TriPoint Medical Center on above:Order Comment: Specimen Type: BLOOD SPECIMENOrdering Facility: [facility] Address:[address] [place], [place] [address]Performed By: #### 93329-2 ####[facility] LABCLIA [id number] [place], [place] [address]Mmoccspqn RBC (Bld) [#/Vol] 10*3/uLNormal<0.01[facility] on above:Order Comment: Specimen Type: BLOOD SPECIMENOrdering Facility: [facility] Address:[address] [place], [place] [address]Performed By: #### 08416-5 ####[facility] LABCLIA [id number] [place], [place] [address]Clepnpwab RBC/100 WBC (Bld) [Ratio]0.0 /100 WBCNormal [facility] on above:Order Comment: Specimen Type: BLOOD SPECIMENOrdering Facility: [facility] Address:[address] [place], [place] [address]Performed By: #### 33151-5 ####[facility] LABIA [id number] [place], [place] [address]Hsnteopd mean volume (Bld) [Entitic vol]9.1 fLNormal9.0-12.7CCincinnati [facility]riners Hospital on above:Order Comment: Specimen Type: BLOOD SPECIMENOrdering Facility: [facility] Address:[address] [place] [address] Performed By: #### 48229-0 ####[facility] LABCLIA [id number] [place], [place] [address]Rigoiidih (Bld) [#/Vol]94 10*3/bRYcs810-563VgaserluuUniversity Hospitals TriPoint [facility] on above:Order Comment: Specimen Type: BLOOD SPECIMENOrdering Facility: [facility] Address:[address] [place], [place] [address]Result Comment: No clot detected. Performed By: #### 80212-0 ####[facility] LABCLIA [id number] [place], [place] [address]IDX (Bld) [#/Vol]3.73 10*6/uL Low4.20-6.00[facility] on above:Order Comment: Specimen Type: BLOOD SPECIMENOrdering Facility: [facility] Address:[address] [place], [place] [address]Performed By: #### 57085-5 ####[facility] LABCLIA [id number] [place] [address] WBC (Bld) [#/Vol]4.80 10*3/uLNormal3.70-11.00[facility] on above:Order Comment: Specimen Type: BLOOD SPECIMENOrdering Facility: [facility] Address:[address] [place] [address] Performed By: #### 77917-3 ####[facility] LABCLIA [id number] [place], [place] [address]JHH CBC W AUTO DIFF BLDon 86-79-2434XDL BASOPHILS # BLD AUTO<0.03NISumner [facility] DIFFERENTIAL METHOD BLDAutoNOMS [facility] EOSINOPHIL # BLD AUTO0.18NISumner [facility] Center LYMPHOCYTES # BLD AUTO0.43LowCox [facility] MONOCYTES # BLD AUTO1.1HighNI NOMRusk Rehabilitation Center NEUTROPHILS # BLD AUTO3.05[facility] NRBC # BLD AUTO <0.01NISumner [facility] NRBC/100 WBC BLD-RTO0/100 WBCCox Monett PLATELET # BLD GOXK35LmoOKYLHCA [facility] Healthcare [facility] on above:No clot detected.CCF PMV BLD AUTO9.1 fL9.0 - 12.7 fLNOMS HealthcareCCF WBC # BLD AUTO4.8NOSaint Mary's Health Center IMM GRANULOCYTES # BLD AUTO<0.03NINFEllett Memorial HospitalIMM GRANULOCYTES/LEUK NFR BLD AUTO0.4 %NOM HealthcareSpecimen Type: BLOOD SPECIMEN [facility] Address: [address] [place] [id number] Original Ordering Provider: HILARY HUTSONUREDDYCLINISYNCCNOVSPon 03-09-2025 CNOVSPNormalMartins Ferry HospitalComprehensive metabolic 2000 panelOrdered By: Anabell Eduardo on 08-50-4690Jyzxnhj [Mass/Vol]4.1 g/dL3.9 - 4.9 g/dLHickory Valley ClinicALP [Catalytic activity/Vol]84 U/L38 - 113 U/LCleveland ClinicALT [Catalytic activity/Vol]26 U/L10 - 54 U/LCleveland ClinicAnion gap [Moles/Vol]9 mmol/L8 - 15 mmol/LCleveland ClinicAST [Catalytic activity/Vol]31 U/L14 - 40 U/L [facility] HospitalBilirubin [Mass/Vol]0.3 mg/dL0.2 - 1.3 mg/dLOhiohealth Hardin Memorial Hospital Calcium [Mass/Vol]9.8 mg/dL8.5 - 10.2 mg/dLHickory Valley ClinicChloride [Moles/Vol] 104 mmol/L98 - 107 mmol/LCleveland ClinicCO2 [Moles/Vol]24 mmol/L22 - 30 mmol/L [facility] HospitalCreatinine [Mass/Vol]0.67 mg/dLLow0.73 - 1.22 mg/dLOhiohealth Hardin Memorial HospitalGFR/1.73 sq M.predicted among non-blacks MDRD (S/P/Bld) [Vol rate/Area]103 mL/min/{1.73_m2}- PINFCleveland ClinicComment on above:Estimated Glomerular Filtration Rate (eGFR) is calculated using the 2020 CKD-EPI creatinine equation. This equation utilizes serum creatinine, sex, and age as parameters. The creatinine assay has traceable calibration to isotope dilution-mass spectrometry. Refer to KDIGO guidelines for clinical interpretation. In patients with unstable renal function, e.g. those with acute kidney injury, the eGFRmay not accurately reflect actual GFR.Glucose [Mass/Vol]104 mg/rDDubm53 - 99 mg/dL [facility] on above:The [place] Diabetes Association (ADA) provides guidance for cutoff values for fasting glucose andrandom glucose. The ADA defines fasting as no caloric intake for at least 8 hours. Fasting plasma gl ucose results between 100 to 125 mg/dL indicate [...] Standards of Medical Care in Diabetes 2016, [place] [employer]. Diabetes Care. 2016.39(Suppl 1). Interpretation and review of laboratory resultsAbnormalCleveland ClinicPotassium [Moles/Vol]4.1 mmol/L3.7 - 5.1 mmol/LCwhite hospital ClinicProtein [Mass/Vol]6.6 g/dL 6.3 - 8.0 g/dLHickory Valley ClinicSodium [Moles/Vol]137 mmol/L136 - 144 mmol/L [facility] HospitalUrea nitrogen [Mass/Vol]11 mg/dL9 - 24 mg/dLSelect Medical Ohiohealth Rehabilitation HospitalComprehensive metabolic 2000 panelon 24-96-5513Myrlpjk [Mass/Vol]4.1 g/dLNormal3.9-4.9CCincinnati [facility]rin[facility] on above:Order Comment: Specimen Type: BLOOD SPECIMENOrdering Facility: [facility] Address:[address] [place], [place] [address]Performed By: #### 10765- 8, ####[facility] LABCLIA [id number] [place], [place] [address]LYC [Catalytic activity/Vol]84 U/CLkchso59-730 [facility] on above:Order Comment: Specimen Type: BLOOD SPECIMENOrdering Facility: [facility] Address:[address] [place] [address]Ljaagavkv By: #### 82668-8, ####[facility] LABCLIA [id number] [facility] [place], [place] [address]AXU [Catalytic activity/Vol]26 U/QRqycuk27-80FsecdyhupUniversity Hospitals TriPoint [facility] on above:Order Comment: Specimen Type: BLOOD SPECIMENOrdering Facility: [facility] Address:[address] [place], [place] [address]Performed By: #### 10952-8, ####[facility] LABCLIA [id number] [facility] [place], [place] [address]Izguk gap [Moles/Vol]9 mmol/LNormal8-15 [facility] on above:Order Comment: Specimen Type: BLOOD SPECIMENOrdering Facility: [facility] Address:[address] [place], [place] [address]Performed By: #### 89355-0, ####[facility] LABCLIA [id number] [place], [place] [address]XSW [Catalytic activity/Vol]31 U/CBdfylh29-78KalvapmscUniversity Hospitals [facility] on above:Order Comment: Specimen Type: BLOOD SPECIMENOrdering Facility: [facility] Address:[address] [place], [place] [address]Performed By: #### 21291-3, ####[facility] LABCLIA [id number] [facility] [place], [place] [address]Knjtodrzl [Mass/Vol]0.3 mg/dLNormal0.2-1.3 [facility] on above:Order Comment: Specimen Type: BLOOD SPECIMENOrdering Facility: [facility] Address:[address] [place], [place] [address]Performed By: #### 41729-2, ####[facility] LABCLIA [id number] [facility]AVETER[facility] [place], [place] [address]Ahqpnzp [Mass/Vol]9.8 mg/dLNormal8.5-10.2CCincinnati [facility]rin[facility] on above: Order Comment: Specimen Type: BLOOD SPECIMENOrdering Facility: [facility] Address:[address] [place] [address]Dhnxmwtnm By: #### 59553- 8, ####[facility] LABCLIA [id number] [place], [place] [address]Ryjnxkuu [Moles/Vol]104 mmol/UJpxulh36-908QrijkycbbUniversity Hospitals [facility] on above:Order Comment: Specimen Type: BLOOD SPECIMENOrdering Facility: [facility] Address:[address] [place], [place] [address]Performed By: #### 54812-8, ####[facility] LABCLIA [id number] [place], [place] [address]GS1 [Moles/Vol]24 mmol/NFlcwco35-11FlfvcnejtUniversity Hospitals TriPoint [facility] Center on above:Order Comment: Specimen Type: BLOOD SPECIMENOrdering Facility: [facility] Address:[address] [place], [place] [address]Performed By: #### 81287- 8, ####[facility] LABCLIA [id number] [place], [place] [address]Bgxjekjana [Mass/Vol]0.67 mg/dLLow0.73-1.22 [facility] on above:Order Comment: Specimen Type: BLOOD SPECIMENOrdering Facility: [facility] Address:[address] [place], [place] [address]Performed By: #### 86635-7, ####[facility] LABCLIA [id number] [place] [address] Creatinine and Glomerular filtration rate.predicted panel (S/P/Bld)103 mL/min/1.73m???Normal>=60[facility] on above:Order Comment: Specimen Type: BLOOD SPECIMENOrdering Facility: [facility] Address:[address] [place], [place] [address]Result Comment: Estimated Glomerular Filtration Rate (eGFR) is calculated using the 2020 CKD-EPI cre atinine equation. This equation utilizes serum creatinine, sex, and age as parameters. The creatinine assay has traceable calibration to isotope dilution- mass spectrometry. Refer to KDIGO guidelines for clinical interpretation. In patients with unstable renal function, e.g. those with acute kidney injury, the eGFR may not accurately reflect actual GFR.Performed By: #### 85981-3, ####[facility] LABCLIA [id number] [place], [place] [address]Vmvjfvn [Mass/Vol]104 mg/lNVgje59-95AuebkvtmyUniversity Hospitals [facility] on above:Order Comment: Specimen Type: BLOOD SPECIMENOrdering Facility: [facility] Address:[address] [place] [address]Eeasbq Comment: The [place] Diabetes Association (ADA) provides guidance for cutoff values for fasting glucose and random glucose. The ADA defines fasting as no caloric intake for at least 8 hours. Fasting plasma glucose results between 100 to 125 mg/dL indicate increased risk for diabetes (prediab etes).Fasting plasma glucose results greater than or equal to 126 mg/dL meet the criteria for diagnosis of diabetes. In the absence of unequivocal hyperglycemia, results should be confirmed by repeattesting. In a patient with classic symptoms of hyperglycemia or hyperglycemic crisis, random plasmaglucose results greater than or equal to 200 mg/dL meet the criteria for diagnosis of diabetes.Reference: Standards of Medical Care in Diabetes 2016, [place] Diabetes Association. Diabetes Care. 2016.39(Suppl 1).Performed By: #### 81546- 8, ####[facility] LABCLIA [id number] [place], [place] [address]Evxrhmsqu [Moles/Vol]4.1 mmol/LNormal3.7-5.1 [facility] on above:Order Comment: Specimen Type: BLOOD SPECIMENOrdering Facility: [facility] Address:[address] [place], [place] [address]Wicdyhdxb By: #### 09289-6, ####[facility] LABCLIA [id number] [place], [place] [address]Fvfqscz [Mass/Vol]6.6 g/dLNormal6.3-8.0[facility] on above:Order Comment: Specimen Type: BLOOD SPECIMENOrdering Facility: [facility] Address:[address] [place], [place] [address]Performed By: #### 29796- 8, ####[facility] LABCLIA [id number] [place], [place] [address]Knuqpo [Moles/Vol]137 mmol/HOgvhyp326-492BpbampcicUniversity Hospitals [facility] on above:Order Comment: Specimen Type: BLOOD SPECIMENOrdering Facility: [facility] Address:[address] [place], [place] [address]Performed By: #### 44105-0, ####[facility] LABCLIA [id number] [place], [place] [address]Krcy nitrogen [Mass/Vol]11 mg/dLNormal9-24[facility] on above: Order Comment: Specimen Type: BLOOD SPECIMENOrdering Facility: [facility] Address:[address] [place], [place] [address]Performed By: #### 19334- 8, ####[facility] LABCLIA [id number] [place], [place] [address]YWRVGKYFxn 28-64-4454Svfcrdtu [Mass/Vol]376 ng/mL 30.3 - 565.7 ng/mLCleveland ClinicFOLATE, SERUMon 81-01-7611Ywxulv [Mass/Vol] ng/mL4.7 - PINF ng/mLCleveland Regency Hospital Of MinneapolisComment on above:A result of > 20 ng/mL is not necessarily indicative of a pathologic or treatable condition: it reflects a limitation of the test methodology. Assay reference range: 4.8 to 24.2 ng/mL. Suitable for detection of folate deficiency. Reference: Folate III (Folate III) [package insert V 1.0 Peruvian]. [facility], [place], [place]: August 2015. Ferritin SerPl-mCncon 02-47-2563Zjcatqep [Mass/Vol]376.0 ng/lXYnkbsy35.3-565.7 [facility] on above:Order Comment: Specimen Type: BLOOD SPECIMENOrdering Facility: [facility] Address:[address] [place], [place] [address]Performed By: #### 2276-4, 79878-8, 8, 2132-06 ####[facility] LABCLIA [id number] [address] OF AMERICAFolate SerPl-mCncon 03-09-2025 Folate [Mass/Vol]ng/mLNormal>4.7CCincinnati [facility]riners Hospital on above:Order Comment: Specimen Type: BLOOD SPECIMENOrdering Facility: [facility] Address:[address] [place], [place] [address]Result Comment: A result of > 20 ng/mL is not necessarily indicative of a pathologic or treatable condition: it reflects a limitation of the test methodology.Assay reference range: 4.8 to 24.2 ng/mL. Suitable for detection of folate deficiency.Reference:Folate III (Folate III) [package insert V 1.0 Peruvian]. [facility], [place], [place]: August 2015.Performed By: #### 2276-4, 45343-9, 2284-05, 2132-06 ####[facility] LABCLIA [id number] [address] OF AMERICAIron and Iron binding capacity panelon 88-86-9721Yppmocoyadzzxb and review of laboratory resultsNormalClevelatrium health union west ClinicIron [Mass/Vol]62 ug/dL41 - 186 ug/dLOhiohealth Hardin Memorial HospitalIron binding capacity [Mass/Vol]303 ug/dL232 - 386 ug/dLOhiohealth Hardin Memorial Hospital Iron/TIBC [Molar ratio]20.5 %15.0 - 57.0 %[facility] Medical CenterIron [Mass/Vol]62 ug/jXJcnzuz27-679NyqsvwifxUniversity Hospitals [facility]Point [facility] on above:Order Comment: Specimen Type: BLOOD SPECIMENOrdering Facility: [facility] Address:[address] [place], [place] [address]Performed By: #### 2276- 4, 46649-9, 8, 2132-06 ####[facility] LABCLIA [id number] [place] [id number] [place] AMERICAIron binding capacity [Mass/Vol]303 ug/uYVagyad099-453EpfviryzuMartins Ferry Hospital Comment on above:Order Comment: Specimen Type: BLOOD SPECIMENOrdering Facility: [facility] Address:[address] [place] [address] Performed By: #### 2276-4, 68856-0, 8, 2132-06 ####[facility] LABCLIA [id number] [place] [address] [place] AMERICAIron/TIBC [Molar ratio]20.5 %Tkkebj44.0-57.0Martins Ferry HospitalComment on above:Order Comment: Specimen Type: BLOOD SPECIMENOrdering Facility: [facility] Address:[address] [place], [place] [address]Performed By: #### 2276-4, 55750-7, 8, 2132-06 ####[facility] LABCLIA [id number] [place] [address] [place] [facility]ALL[facility] - Hematology and Cell countson 03-09-2025 Basophils/100 WBC (Bld)0.4 %[facility] HospitalEosinophils/100 WBC (Bld)3.8 % [facility] Memorial HospitalErythrocyte distribution width (RBC) [Ratio]14.8 %11.5 - 15.0 % [facility] Memorial HospitalHematocrit (Bld) [Volume fraction]37.4 %Low39.0 - 51.0 % [facility] Memorial HospitalHemoglobin (Bld) [Mass/Vol]12.6 g/dLLow13.0 - 17.0 g/dLOhiohealth Hardin Memorial HospitalLymphocytes/100 WBC (Bld)9 %[facility] HospitalH (RBC) [Entitic mass]33.8 pg26.0 - 34.0 pgCOhioHealth Southeastern Medical CenterHC (RBC) [Mass/Vol]33.7 g/dL30.5 - 36.0 g/dL Reyna ClinicMCV (RBC) [Entitic vol]100.3 jRDiud18.0 - 100.0 fLCOur Lady of Mercy Hospital - AndersonMonocytes/100 WBC (Bld)22.9 %[facility] Memorial HospitalNeutrophils/100 WBC (Bld)63.5 %[facility] Memorial HospitalRBC (Bld) [#/Vol]3.73 10*6/uLLow4.20 - 6.00 m/uLOhiohealth Hardin Memorial HospitalMAGNESIUMon 53-48-8598Qfrwvekju [Mass/Vol]2 mg/dL1.7 - 2.3 mg/dLOhiohealth Hardin Memorial HospitalMagnesium SerPl-mCncon 11-55-3905Tdacsjdyf [Mass/Vol]2.0 mg/dLNormal 1.7-2.3CCincinnati Shriners Hospital on above:Order Comment: Specimen Type: BLOOD SPECIMENOrdering Facility: [facility] Address:[address] [place], [place] [address]Kdqxrqovn By: #### 95839-5, 52734-4 ####[facility] LABCLIA [id number] [place], [place] [address]Wpijxetrx [Mass/Vol]on 99-97-4005Ttudciivyvicqr and review of laboratory resultsNormalCwayne healthcare main campusand [facility] OhioNo Panel Informationon 03-09-2025 Interpretation and review of laboratory resultsNormalCleveland [facility] OhioInterpretation and review of laboratory resultsAbnormalCSalem City HospitalVITAMIN B12on 11-16-2889Tqxztgxyq (Vitamin B12) [Mass/Vol]421 pg/mL232 - 1245 pg/mLCOur Lady of Mercy Hospital - AndersonVit B12 SerPl-mCncon 82-09-6061Zqjcivnzo (Vitamin B12) [Mass/Vol]421 pg/xIIyzosv083-8530JpiptjctuCincinnati Shriners Hospital on above:Order Comment: Specimen Type: BLOOD SPECIMENOrdering Facility: [facility] Address:[address] [place] [address] Performed By: #### 2276-4, 47192-8, 2284-8, 2132-9 ####[facility] LABCLIA [id number] [facility] [id number] Auto Differential panel (Bld)on 13-37-4797Bjzkeojaj (Bld) [#/Vol]10*3/uLNormal<0.11CCincinnati Shriners Hospital on above:Order Comment: Specimen Type: BLOOD SPECIMENOrdering Facility: [facility] Address:[address] [place], [place] [address]Performed By: #### 11418- 8 ####[facility] LABCLIA [id number] [place], [place] [address]Baarnfdax/100 WBC (Bld)0.2 %NormalUniversity Hospitals TriPoint Medical Center on above:Order Comment: Specimen Type: BLOOD SPECIMENOrdering Facility: [facility] Address:[address] [place], [place] [address]Performed By: #### 24671-4 ####[facility] LABCLIA [id number] [place], [place] [address]Ujqprmbfxnts cell count method Nom (Bld)AutoNormalCCincinnati Shriners Hospital on above:Order Comment: Specimen Type: BLOOD SPECIMENOrdering Facility: [facility] Address:[address] [place], [place] [address]Performed By: #### 41323-9 ####[facility] LABCLIA [id number] [place], [place] [address]Sezfkvdrhzp (Bld) [#/Vol]0.12 10*3/uLNormal<0.46[facility] on above:Order Comment: Specimen Type: BLOOD SPECIMENOrdering Facility: [facility] Address:[address] [place], [place] [address]Performed By: #### 60351-5 ####[facility] LABCLIA [id number] [place], [place] [address]Huyhecxpkka/100 WBC (Bld)2.4 %NormalUniversity Hospitals TriPoint Medical Center on above:Order Comment: Specimen Type: BLOOD SPECIMENOrdering Facility: [facility] Address:[address] [place], [place] [address]Performed By: #### 04591-3 ####[facility] LABIA [id number] [place], [place] [address]Pwicmkbbjmv distribution width (RBC) [Ratio]15.4 %High 11.5-15.0[facility] on above:Order Comment: Specimen Type: BLOOD SPECIMENOrdering Facility: [facility] Address:[address] [place], [place] [address]Performed By: #### 07367-0 ####[facility] LABIA [id number] [place] [address] Hematocrit (Bld) [Volume fraction]36.0 %Low39.0-51.0[facility] Comment on above:Order Comment: Specimen Type: BLOOD SPECIMENOrdering Facility: [facility] Address:[address] [place] [address] Performed By: #### 28403-1 ####[facility] LABIA [id number] [place], [place] [address]Cvrqljdobz (Bld) [Mass/Vol]12.4 g/dLLow13.0-17.0[facility] on above:Order Comment: Specimen Type: BLOOD SPECIMENOrdering Facility: [facility] Address:[address] [place], [place] [address]Performed By: #### 57565-6 ####[facility] LABCLIA [id number] [place], [place] [address]Vlziqbma granulocytes (Bld) [#/Vol]10*3/uLNormal<0.10 [facility] on above:Order Comment: Specimen Type: BLOOD SPECIMENOrdering Facility: [facility] Address:[address] [place], [place] [address]Performed By: #### 67821-1 ####[facility] LABIA [id number] [place], [place] [address]Otikzevg granulocytes/100 WBC (Bld)0.2 %NormalUniversity Hospitals TriPoint Medical Center on above: Order Comment: Specimen Type: BLOOD SPECIMENOrdering Facility: [facility] Address:[address] [place], [place] [address]Performed By: #### 43095- 8 ####[facility] LABCLIA [id number] [place], [place] [address]Iusgeaculmf (Bld) [#/Vol]0.43 10*3/uLLow1.00-4.00 [facility] on above:Order Comment: Specimen Type: BLOOD SPECIMENOrdering Facility: [facility] Address:[address] [place], [place] [address]Performed By: #### 03786-4 ####[facility] LABCLIA [id number] [place], [place] [address]Nkiylylzarn/100 WBC (Bld)8.5 %NormalUniversity Hospitals TriPoint Medical Center on above:Order Comment: Specimen Type: BLOOD SPECIMENOrdering Facility: [facility] Address:[address] [place], [place] [address]Performed By: #### 10264-0 ####[facility] LABCLIA [id number] [place], [place] [address]JFN (RBC) [Entitic mass]34.1 bwBuzn68.0-34.0[facility] on above:Order Comment: Specimen Type: BLOOD SPECIMENOrdering Facility: [facility] Address:[address] [place], [place] [address]Performed By: #### 29721-8 ####[facility] LABCLIA [id number] [place], [place] [address]CYOW (RBC) [Mass/Vol]34.4 g/wBSdvvvp29.5-36.0[facility] on above: Order Comment: Specimen Type: BLOOD SPECIMENOrdering Facility: [facility] Address:[address] [place], [place] [address]Performed By: #### 89613- 8 ####[facility] LABCLIA [id number] [place], [place] [address]TII (RBC) [Entitic vol]98.9 vYRmtjin70.0-100.0[facility] on above:Order Comment: Specimen Type: BLOOD SPECIMENOrdering Facility: [facility] Address:[address] [place], [place] [address]Performed By: #### 98153-9 ####[facility] LABCLIA [id number] [place], [place] [address]Dqmspsqud (Bld) [#/Vol]0.88 10*3/uLHigh<0.87[facility] on above:Order Comment: Specimen Type: BLOOD SPECIMENOrdering Facility: [facility] Address:[address] [place], [place] [address]Performed By: #### 75952- 8 ####[facility] LABCLIA [id number] [place], [place] [address]Aelfzniia/100 WBC (Bld)17.5 %NormalUniversity Hospitals TriPoint Medical Center on above:Order Comment: Specimen Type: BLOOD SPECIMENOrdering Facility: [facility] Address:[address] [place], [place] [address]Performed By: #### 26812-1 ####[facility] LABCLIA [id number] [place], [place] [address]Pkjtqnmnbnd (Bld) [#/Vol]3.59 10*3/uLNormal1.45-7.50[facility] on above:Order Comment: Specimen Type: BLOOD SPECIMENOrdering Facility: [facility] Address:[address] [place], [place] [address]Performed By: #### 06054-7 ####[facility] LABCLIA [id number] [place], [place] [address]Qdhunbqvgam/100 WBC (Bld)71.2 %NormalUniversity Hospitals TriPoint Medical Center on above:Order Comment: Specimen Type: BLOOD SPECIMENOrdering Facility: [facility] Address:[address] [place], [place] [address]Performed By: #### 41576-1 ####[facility] LABCLIA [id number] [place], [place] [address]Cyulzkogl RBC (Bld) [#/Vol] 10*3/uLNormal<0.01[facility] on above:Order Comment: Specimen Type: BLOOD SPECIMENOrdering Facility: [facility] Address:[address] [place], [place] [address]Performed By: #### 15418-1 ####[facility] LABCLIA [id number] [place], [place] [address]Tricriwck RBC/100 WBC (Bld) [Ratio]0.0 /100 WBCNormal [facility] on above:Order Comment: Specimen Type: BLOOD SPECIMENOrdering Facility: [facility] Address:[address] [place], [place] [address]Performed By: #### 74156-5 ####[facility] LABCLIA [id number] [place], [place] [address]Bidcpiwb mean volume (Bld) [Entitic vol]9.3 fLNormal9.0-12.7CCincinnati Shriners Hospital on above:Order Comment: Specimen Type: BLOOD SPECIMENOrdering Facility: [facility] Address:[address] [place] [address] Performed By: #### 52763-4 ####[facility] LABCLIA [id number] [place], [place] [address]Afqxffbhx (Bld) [#/Vol]91 10*3/kPVdd280-539ZbfpkiplbUniversity Hospitals TriPoint Medical Center on above:Order Comment: Specimen Type: BLOOD SPECIMENOrdering Facility: [facility] Address:[address] [place], [place] [address]Result Comment: No clot detected. Performed By: #### 75117-4 ####[facility] LABCLIA [id number] [place], [place] [address]TSD (Bld) [#/Vol]3.64 10*6/uL Low4.20-6.00[facility] HospitalComascension standish [facility] on above:Order Comment: Specimen Type: BLOOD SPECIMENOrdering Facility: [facility] Address:[address] [place], [place] [address]Performed By: #### 89969-3 ####[facility] LABCLIA [id number] [place] [address] WBC (Bld) [#/Vol]5.04 10*3/uLNormal3.70-11.00[facility] HospitalComascension standish hospital on above:Order Comment: Specimen Type: BLOOD SPECIMENOrdering Facility: [facility] Address:[address] [place], [place] [address] Performed By: #### 71813-7 ####[facility] LABCLIA [id number] [place], [place] [address]WKG CBC W AUTO DIFF BLDon [id number]/100 WBC (Bld)0.2 %[facility] BASOPHILS # BLD AUTO <0.03NISumner [facility] DIFFERENTIAL METHOD BLDAutoNOMS [facility] EOSINOPHIL # BLD AUTO0.12NISumner Regional Medical Center LYMPHOCYTES # BLD AUTO0.43Low NOMS [facility] MONOCYTES # BLD AUTO0.88HighNINFCox [place]ett NEUTROPHILS # BLD AUTO3.59NOFreeman Orthopaed[facility] & Sports [facility] NRBC # BLD AUTO<0.01NINFMadison Medical CenterF NRBC/100 WBC BLD-RTO0/100 WBCNOFreeman Orthopaedics & Sports Medicine PLATELET # BLD UYIH28JpgEBRIEllett Memorial HospitalComment on above:No clot detected.CCF PMV BLD AUTO9.3 fL 9.0 - 12.7 fLNOFreeman Orthopaedics & Sports Medicine WBC # BLD AUTO5.04NOSaint Mary's Health CenterEosinophils/100 WBC (Bld)2.4 %[facility]lett Memorial HospitalErythrocyte distribution width (RBC) [Ratio]15.4 % High11.5 - 15.0 %[facility] Memorial HospitalHematocrit (Bld) [Volume fraction]36 %Low39.0 - 51.0 %[facility] Memorial HospitalHemoglobin (Bld) [Mass/Vol]12.4 g/dLLow13.0 - 17.0 g/dLEllett Memorial HospitalIM GRANULOCYTES # BLD AUTO<0.03NINFNortheast Regional Medical Center GRANULOCYTES/LEUK NFR BLD AUTO0.2 %[facility] Memorial HospitalInterpretation and review of laboratory resultsAbnormalEllett Memorial HospitalLymphocytes/100 WBC (Bld)8.5 %[facility] Memorial HospitalMCH (RBC) [Entitic mass]34.1 voZilf20.0 - 34.0 pgSalem Memorial District HospitalHC (RBC) [Mass/Vol]34.4 g/dL30.5 - 36.0 g/dLEllett Memorial HospitalMCV (RBC) [Entitic vol] 98.9 fL80.0 - 100.0 fLEllett Memorial HospitalMonocytes/100 WBC (Bld)17.5 %[facility] Memorial HospitalNeutrophils/100 WBC (Bld)71.2 %[facility] Memorial HospitalRBC (Bld) [#/Vol]3.64 10*6/uLLow4.20 - 6.00 m/uLBLUE MOUNTAIN HOSPITAL, INC. HealthcareSpecimen Type: BLOOD SPECIMEN [facility] Address: [address] [place], [place] [address] Original Ordering Provider: CONG CHIRINOSEllett Memorial HospitalBECKY [facility] on 92-59-1102Vovfvnhlwvowhtws Ag [Mass/Vol]2.0 ng/mLNormal<=2.9CCincinnati Shriners Hospital on above:Order Comment: Specimen Type: BLOOD SPECIMENOrdering Facility: [facility] Address:[address] [place], [place] [address]Result Comment: Carcinoembryonic antigen test is used as an aid in monitoring response to treatmentor recurrence in patients with established colorectal, breast, lung, prostatic, pancreatic, and ovarian carcinomas. Clinical correlation is required.The Carcinoembryonic antigen test was performed using the [employer] DXI paramagnetic particle chemiluminescent immunoassay method. Results obtained with different assay methods or kits cannot be used interchangeably.Performed By: #### 2039-6 ####[facility] LABCLIA [id number] [place] [address] [place] OF AMERICACNOVSPon [id number]ster Community Hospital metabolic 2000 panelon 02-94-1195Dwswjmf [Mass/Vol]4.1 g/dLNormal 3.9-4.9CCincinnati Shriners Hospital on above:Order Comment: Specimen Type: BLOOD SPECIMENOrdering Facility: [facility] Address:[address] [place], [place] [address]Performed By: #### 18430-9 ####[facility] LABCLIA [id number] [facility] CENTERGERMANVETERANS HEALTH ADMINISTR[facility] [place]ZOHREHN[place], [place] [address]HCV [Catalytic activity/Vol]74 U/GQoguvd64-259UacxskbmvUniversity Hospitals TriPoint Medical Center on above:Order Comment: Specimen Type: BLOOD SPECIMENOrdering Facility: [facility] Address:[address] [place], [place] [address]Performed By: #### 21982-7 ####[facility] LABCLIA [id number] [facility] KARINAVETERANS HEALTH ADMINISTR[facility] [place], [place] [address]CUW [Catalytic activity/Vol]42 U/IUyifop47-97NhfhdnaewUniversity Hospitals TriPoint Medical Center on above:Order Comment: Specimen Type: BLOOD SPECIMENOrdering Facility: [facility] Address:[address] [place], [place] [address]Performed By: #### 42505-5 ####[facility] LABCLIA [id number] [facility] CENTERGERMANEASTPOINTE HOSPITALEricaNIGHTMUTE, [place] [address]Kmtwx gap [Moles/Vol]11 mmol/LNormal8-15[facility] on above:Order Comment: Specimen Type: BLOOD SPECIMENOrdering Facility: [facility] Address:[address] [place], [place] [address]Performed By: #### 41359- 8 ####[facility] LABCLIA [id number] [place], [place] [address]VMA [Catalytic activity/Vol]42 U/KDvcp67-09TqhcpldziUniversity Hospitals TriPoint [facility] Center on above:Order Comment: Specimen Type: BLOOD SPECIMENOrdering Facility: [facility] Address:[address] [place], [place] [address]Performed By: #### 36299-9 ####[facility] LABCLIA [id number] [place], [place] [address]Cyygzhreh [Mass/Vol]0.4 mg/dLNormal0.2-1.3CCincinnati Shriners Hospital on above:Order Comment: Specimen Type: BLOOD SPECIMENOrdering Facility: [facility] Address:[address] [place], [place] [address]Performed By: #### 05328- 8 ####[facility] LABCLIA [id number] [place], [place] [address]Wbpgdwa [Mass/Vol]9.1 mg/dLNormal8.5-10.2CCincinnati Shriners Hospital on above:Order Comment: Specimen Type: BLOOD SPECIMENOrdering Facility: [facility] Address:[address] [place], [place] [address]Performed By: #### 90505-4 ####[facility] LABCLIA [id number] [place], [place] [address]Pwxrfznh [Moles/Vol]104 mmol/L Cschni27-189RpksxgblmUniversity Hospitals TriPoint [facility] Center on above:Order Comment: Specimen Type: BLOOD SPECIMENOrdering Facility: [facility] Address:[address] [place], [place] [address]Performed By: #### 28785-0 ####[facility] LABCLIA [id number] [place] [address] CO2 [Moles/Vol]23 mmol/WMfywis46-38PydegyyvpUniversity Hospitals TriPoint Medical Center on above: Order Comment: Specimen Type: BLOOD SPECIMENOrdering Facility: [facility] Address:[address] [place], [place] [address]Performed By: #### 34667- 8 ####[facility] LABCLIA [id number] [place], [place] [address]Kfpwkcvowa [Mass/Vol]0.70 mg/dLLow0.73-1.22[facility] on above:Order Comment: Specimen Type: BLOOD SPECIMENOrdering Facility: [facility] Address:[address] [place], [place] [address]Performed By: #### 65864-3 ####[facility] LABCLIA [id number] [place], [place] [address]Woqcjlyuam and Glomerular filtration rate.predicted panel (S/P/Bld)102 mL/min/1.73m???Normal >=60[facility] on above:Order Comment: Specimen Type: BLOOD SPECIMENOrdering Facility: [facility] Address:[address] [place], [place] [address]Result Comment: Estimated Glomerular Filtration Rate (eGFR) is calculated using the 2020 CKD-EPI creatinine equation. This equation utilizes serum creatinine, sex, and age as parameters. The creatinine assay has traceable calibration to isotope dilution-mass spectrometry. Refer to KDIGO guidelines for clinical interpretation. In patients with unstable renal function, e.g. those with acute kidney injury, the eGFR may not accurately reflect actual GFR.Performed By: #### 43426-7 ####[facility] LABIA [id number] [place], [place] [address]Zuvqxzc [Mass/Vol]115 mg/pAUzpw07-14SutndzkjzUniversity Hospitals TriPoint [facility] Center on above:Order Comment: Specimen Type: BLOOD SPECIMENOrdering Facility: [facility] Address:[address] [place], [place] [address]Result Comment: The [place] Diabetes Association (ADA) provides guidance for cutoff values for fast ing glucose and random glucose. The ADA defines fasting as no caloric intake for at least 8 hours. Fasting plasma glucose results between 100 to 125 mg/dL indicate increased risk for diabetes (prediabetes).Fasting plasma glucose results greater than or equal to 126 mg/dL meet the criteria for diagnosis of diabetes. In the absence of unequivocal hyperglycemia, results should be confirmed by repeattesting. In a patient with classic symptoms of hyperglycemia or hyperglycemic crisis, random plasmaglucose results greater than or equal to 200 mg/dL meet the criteria for diagnosis of diabetes.Reference: Standards of Medical Care in Diabetes 2016, [place] Diabetes Association. Diabetes Care. 2016.39(Suppl 1).Performed By: #### 93155-4 ####[facility] LABCLIA [id number] [place], [place] [address]Ksiqzpwsf [Moles/Vol]3.9 mmol/LNormal3.7-5.1CCincinnati Shriners Hospital on above: Order Comment: Specimen Type: BLOOD SPECIMENOrdering Facility: [facility] Address:[address] [place], [place] [address]Performed By: #### 17937- 8 ####[facility] LABCLIA [id number] [place], [place] [address]Ppdnrwh [Mass/Vol]6.7 g/dLNormal6.3-8.0[facility] on above:Order Comment: Specimen Type: BLOOD SPECIMENOrdering Facility: [facility] Address:[address] [place], [place] [address]Performed By: #### 97073-5 ####[facility] LABIA [id number] [place], [place] [address]Mbkbwx [Moles/Vol]138 mmol/L Iykxsf808-358WrpxjxjukUniversity Hospitals TriPoint Medical Center on above:Order Comment: Specimen Type: BLOOD SPECIMENOrdering Facility: [facility] Address:[address] [place], [place] [address]Performed By: #### 99210-7 ####[facility] LABIA [id number] [place] [address] Urea nitrogen [Mass/Vol]11 mg/dLNormal9-24[facility] on above:Order Comment: Specimen Type: BLOOD SPECIMENOrdering Facility: [facility] Address:[address] [place], [place] [address]Performed By: #### 34234-5 ####[facility] LABCLIA [id number] [place], [place] [address]ZSV W Auto Differential panel (Bld)on 02-09-2025 Basophils (Bld) [#/Vol]NINFCleveland ClinicDifferential cell count method Nom (Bld)AutoCleveland ClinicEosinophils (Bld) [#/Vol]0.21 10*3/uLNINFHickory Valley ClinicImmature granulocytes (Bld) [#/Vol]NINFCleveland ClinicImmature granulocytes/100 WBC (Bld)0.4 %[facility] Memorial HospitalLymphocytes (Bld) [#/Vol]0.53 10*3/uLLowHickory Valley ClinicMonocytes (Bld) [#/Vol]0.88 10*3/uLHighNINFHickory Valley ClinicNeutrophils (Bld) [#/Vol]3.72 10*3/uLHickory Valley ClinicNucleated RBC (Bld) [#/Vol]NINFCleveland ClinicNucleated RBC/100 WBC (Bld) [Ratio]0 %/100 WBC H[facility]ory Valley ClinicPlatelet mean volume (Bld) [Entitic vol]9.1 fL9.0 - 12.7 fL [facility] Valley ClinicPlatelets (Bld) [#/Vol]120 10*3/uLLowHickory Valley ClinicWBC (Bld) [#/Vol]5.38 10*3/uLHickory Valley ClinicBasophils (Bld) [#/Vol]10*3/uLNormal<0.11 [facility] on above:Order Comment: Specimen Type: BLOOD SPECIMENOrdering Facility: [facility] Address:[address] [place], [place] [address]Ywlgbqcyx By: #### 43668-9 ####[facility] LABCLIA [id number] [place], [place] [address]Elpmrwdgy/100 WBC (Bld)0.4 %NormalUniversity Hospitals TriPoint Medical Center on above:Order Comment: Specimen Type: BLOOD SPECIMENOrdering Facility: [facility] Address:[address] [place], [place] [address]Performed By: #### 08396-9 ####[facility] LABCLIA [id number] [place], [place] [address]Qwqsrxmgwvvo cell count method Nom (Bld)AutoNormal [facility] on above:Order Comment: Specimen Type: BLOOD SPECIMENOrdering Facility: [facility] Address:[address] [place], [place] [address]Performed By: #### 71544-5 ####[facility] LABIA [id number] [place], [place] [address]Zzsweazhmfn (Bld) [#/Vol]0.21 10*3/uLNormal<0.46[facility] on above: Order Comment: Specimen Type: BLOOD SPECIMENOrdering Facility: [facility] Address:[address] [place], [place] [address]Performed By: #### 09637- 8 ####[facility] LABIA [id number] [place], [place] [address]Zmkxqpeahgc/100 WBC (Bld)3.9 %NormalUniversity Hospitals TriPoint Medical Center on above:Order Comment: Specimen Type: BLOOD SPECIMENOrdering Facility: [facility] Address:[address] [place], [place] [address]Performed By: #### 66727-7 ####[facility] LABIA [id number] [place], [place] [address]Sxjrlqgljye distribution width (RBC) [Ratio]15.9 %High11.5-15.0[facility] on above:Order Comment: Specimen Type: BLOOD SPECIMENOrdering Facility: [facility] Address:[address] [place], [place] [address]Performed By: #### 58250- 8 ####[facility] LABIA [id number] [place], [place] [address]Fdtkjnkfid (Bld) [Volume fraction]36.3 %Low39.0-51.0 [facility] on above:Order Comment: Specimen Type: BLOOD SPECIMENOrdering Facility: [facility] Address:[address] [place], [place] [address]Performed By: #### 73502-2 ####[facility] LABCLIA [id number] [place], [place] [address]Gtknyekubg (Bld) [Mass/Vol]12.5 g/dLLow13.0-17.0[facility] on above:Order Comment: Specimen Type: BLOOD SPECIMENOrdering Facility: [facility] Address:[address] [place], [place] [address]Performed By: #### 95627- 8 ####[facility] LABCLIA [id number] [place], [place] [address]Gvtqldou granulocytes (Bld) [#/Vol]10*3/uLNormal<0.10 [facility] on above:Order Comment: Specimen Type: BLOOD SPECIMENOrdering Facility: [facility] Address:[address] [place], [place] [address]Performed By: #### 96452-1 ####[facility] LABIA [id number] [place], [place] [address]Vduccisa granulocytes/100 WBC (Bld)0.4 %NormalUniversity Hospitals TriPoint Medical Center on above: Order Comment: Specimen Type: BLOOD SPECIMENOrdering Facility: [facility] Address:[address] [place], [place] [address]Performed By: #### 63887- 8 ####[facility] LABCLIA [id number] [place], [place] [address]Lqaddgyfhzw (Bld) [#/Vol]0.53 10*3/uLLow1.00-4.00 [facility] on above:Order Comment: Specimen Type: BLOOD SPECIMENOrdering Facility: [facility] Address:[address] [place], [place] [address]Performed By: #### 83085-7 ####[facility] LABCLIA [id number] [place], [place] [address]Lyupwczifch/100 WBC (Bld)9.9 %NormalUniversity Hospitals [facility] on above:Order Comment: Specimen Type: BLOOD SPECIMENOrdering Facility: [facility] Address:[address] [place], [place] [address]Performed By: #### [id number] ####[facility] LABCLIA [id number] [place], [place] [address]JEM (RBC) [Entitic mass]33.7 paOmylhh76.0-34.0[facility] on above:Order Comment: Specimen Type: BLOOD SPECIMENOrdering Facility: [facility] Address:[address] [place], [place] [address]Performed By: #### [id number] ####[facility] LABIA [id number] [place], [place] [address]AFVA (RBC) [Mass/Vol]34.4 g/xDMmgxwd28.5-36.0[facility] on above: Order Comment: Specimen Type: BLOOD SPECIMENOrdering Facility: [facility] Address:[address] [place], [place] [address]Performed By: #### 05075- 8 ####[facility] LABCLIA [id number] [place], [place] [address]YRI (RBC) [Entitic vol]97.8 wFHmjjli98.0-100.0[facility] on above:Order Comment: Specimen Type: BLOOD SPECIMENOrdering Facility: [facility] Address:[address] [place], [place] [address]Performed By: #### 47475-8 ####[facility] LABIA [id number] [place], [place] [address]Vdhnmiral (Bld) [#/Vol]0.88 10*3/uLHigh<0.87[facility] on above:Order Comment: Specimen Type: BLOOD SPECIMENOrdering Facility: [facility] Address:[address] [place], [place] [address]Performed By: #### 31562- 8 ####[facility] LABCLIA [id number] [place], [place] [address]Ybumijfvc/100 WBC (Bld)16.4 %NormalUniversity Hospitals TriPoint Medical Center on above:Order Comment: Specimen Type: BLOOD SPECIMENOrdering Facility: [facility] Address:[address] [place], [place] [address]Performed By: #### 20232-9 ####[facility] LABIA [id number] [place], [place] [address]Suhsjhsxgds (Bld) [#/Vol]3.72 10*3/uLNormal1.45-7.50[facility] on above:Order Comment: Specimen Type: BLOOD SPECIMENOrdering Facility: [facility] Address:[address] [place], [place] [address]Performed By: #### 79144-5 ####[facility] LABIA [id number] [place], [place] [address]Ttorbyqzevv/100 WBC (Bld)69.0 %NormalUniversity Hospitals TriPoint Medical Center on above:Order Comment: Specimen Type: BLOOD SPECIMENOrdering Facility: [facility] Address:[address] [place], [place] [address]Performed By: #### 21090-3 ####[facility] LABIA [id number] [place], [place] [address]Kqmwkovyf RBC (Bld) [#/Vol] 10*3/uLNormal<0.01[facility] on above:Order Comment: Specimen Type: BLOOD SPECIMENOrdering Facility: [facility] Address:[address] [place], [place] [address]Performed By: #### 64446-3 ####[facility] LABCLIA [id number] [place], [place] [address]Rpvmgafib RBC/100 WBC (Bld) [Ratio]0.0 /100 WBCNormal [facility] on above:Order Comment: Specimen Type: BLOOD SPECIMENOrdering Facility: [facility] Address:[address] [place], [place] [address]Performed By: #### 32199-1 ####[facility] LABCLIA [id number] [place], [place] [address]Ofqzyqqd mean volume (Bld) [Entitic vol]9.1 fLNormal9.0-12.7CCincinnati [facility]rin[facility] on above:Order Comment: Specimen Type: BLOOD SPECIMENOrdering Facility: [facility] Address:[address] [place] [address] Performed By: #### 98454-9 ####[facility] LABCLIA [id number] [place], [place] [address]Efwqdsmuy (Bld) [#/Vol]120 10*3/bDXok391-661BhwazepbgUniversity Hospitals TriPoint Medical Center on above:Order Comment: Specimen Type: BLOOD SPECIMENOrdering Facility: [facility] Address:[address] [place], [place] [address]Performed By: #### 42912-1 ####[facility] LABCLIA [id number] [place], [place] [address]XST (Bld) [#/Vol]3.71 10*6/uLLow4.20-6.00[facility] on above:Order Comment: Specimen Type: BLOOD SPECIMENOrdering Facility: [facility] Address:[address] [place], [place] [address]Performed By: #### 72654-0 ####[facility] LABCLIA [id number] [place], [place] [address]HBG (Bld) [#/Vol]5.38 10*3/uL Normal3.70-11.00[facility] on above:Order Comment: Specimen Type: BLOOD SPECIMENOrdering Facility: [facility] Address:[address] [place], [place] [address]Performed By: #### 92129-5 ####[facility] LABCLIA [id number] [place], [place] [address]WKO CBC W AUTO DIFF BLDon [id number] BASOPHILS # BLD AUTO<0.03NISumner [facility] DIFFERENTIAL METHOD BLDAutoNOMRusk Rehabilitation Center EOSINOPHIL # BLD AUTO0.21NINFCox Monett LYMPHOCYTES # BLD AUTO0.53Low NOMRusk Rehabilitation Center MONOCYTES # BLD AUTO0.88HighNISumner Regional Medical Center NEUTROPHILS # BLD AUTO3.72NOFreeman Orthopaed[facility] & [facility] NRBC # BLD AUTO<0.01NINFCox Monett NRBC/100 WBC BLD-RTO0/100 WBCCox Monett PLATELET # BLD UKPI500RzsCVDZCox Monett PMV BLD AUTO9.1 fL9.0 - 12.7 fLNOFreeman Orthopaedics & Sports Medicine WBC # BLD AUTO5.38NOSSM [facility] GRANULOCYTES # BLD AUTO<0.03NIVanderbilt Children's Hospital GRANULOCYTES/LEUK NFR BLD AUTO0.4 %NOMFitzgibbon HospitalSpecimen Type: BLOOD SPECIMEN Ordering Facility[facility] Address: [address] [place], [place] [address] [address] Original Ordering Provider: HILARY Holbrook 02[birth year]09-2025 CNOVSPNormalMartins Ferry HospitalComprehensive metabolic 2000 panelOrdered By: Bertin Key on 90-44-4589Gdtozeh [Mass/Vol]4.1 g/dL3.9 - 4.9 g/dLHickory Valley ClinicALP [Catalytic activity/Vol]75 U/L38 - 113 U/LCleveland ClinicALT [Catalytic activity/Vol]23 U/L10 - 54 U/LCleveland ClinicAnion gap [Moles/Vol]10 mmol/L8 - 15 mmol/LCleveland ClinicAST [Catalytic activity/Vol]29 U/L14 - 40 U/LCleveland ClinicBilirubin [Mass/Vol]0.3 mg/dL0.2 - 1.3 mg/dLOhiohealth Hardin Memorial Hospital Calcium [Mass/Vol]9.1 mg/dL8.5 - 10.2 mg/dLHickory Valley ClinicChloride [Moles/Vol] 108 mmol/LHigh98 - 107 mmol/LCleveland ClinicCO2 [Moles/Vol]22 mmol/L22 - 30 mmol/LCleveland ClinicCreatinine [Mass/Vol]0.71 mg/dLLow0.73 - 1.22 mg/dL Hickory Valley ClinicGFR/1.73 sq M.predicted among non-blacks MDRD (S/P/Bld) [Vol rate/Area]101 mL/min/{1.73_m2}- PINFCleveland ClinicComment on above:Estimated Glomerular Filtration Rate (eGFR) is calculated using the 2020 CKD-EPI creatinine equation. This equation utilizes serum creatinine, sex, and age as parameters. The creatinine assay has traceable calibration to isotope dilution- mass spectrometry. Refer to KDIGO guidelines for clinical interpretation. In patients with unstable renal function, e.g. those with acute kidney injury, the eGFRmay not accurately reflect actual GFR.Glucose [Mass/Vol]104 mg/eUWdkv16 - 99 mg/dLOhiohealth Hardin Memorial HospitalComment on above:The [place] Diabetes Association (ADA) provides guidance for cutoff values for fasting glucose andrandom glucose. The ADA defines fasting as no caloric intake for at least 8 hours. Fasting plasma gl ucose results between 100 to 125 mg/dL indicate [...] Standards of Medical Care in Diabetes 2016, [place] [employer]. Diabetes Care. 2016.39(Suppl 1). Interpretation and review of laboratory resultsAbnormalCleveland ClinicPotassium [Moles/Vol]4.1 mmol/L3.7 - 5.1 mmol/LCleveland ClinicProtein [Mass/Vol]6.4 g/dL 6.3 - 8.0 g/dLHickory Valley ClinicSodium [Moles/Vol]140 mmol/L136 - 144 mmol/L [facility] nitrogen [Mass/Vol]13 mg/dL9 - 24 mg/dLSelect Medical Ohiohealth Rehabilitation HospitalComprehensive metabolic 2000 panelon 16-52-2854Vljzszz [Mass/Vol]4.1 g/dLNormal3.9-4.9CCincinnati Shriners Hospital on above:Order Comment: Specimen Type: BLOOD SPECIMENOrdering Facility: [facility] Address:[address] [place], [place] [address]Performed By: #### 59531- 8 ####[facility] LABCLIA [id number] [place], [place] [address]IOV [Catalytic activity/Vol]75 U/LPdmxwr81-735VvatnrwckUniversity Hospitals TriPoint [facility] on above:Order Comment: Specimen Type: BLOOD SPECIMENOrdering Facility: [facility] Address:[address] [place], [place] [address]Performed By: #### 69728-8 ####[facility] LABCLIA [id number] [place], [place] [address]RLA [Catalytic activity/Vol]23 U/YAbisen33-58GwiybnujzUniversity Hospitals TriPoint [facility] on above:Order Comment: Specimen Type: BLOOD SPECIMENOrdering Facility: [facility] Address:[address] [place], [place] [address]Performed By: #### 51145- 8 ####[facility] LABCLIA [id number] [place], [place] [address]Pxeyp gap [Moles/Vol]10 mmol/LNormal8-15[facility] on above:Order Comment: Specimen Type: BLOOD SPECIMENOrdering Facility: [facility] Address:[address] [place], [place] [address]Performed By: #### 74982-7 ####[facility] LABIA [id number] [place], [place] [address]RDZ [Catalytic activity/Vol]29 U/UCwwujk11-92HzmgmkrweUniversity Hospitals [facility] on above:Order Comment: Specimen Type: BLOOD SPECIMENOrdering Facility: [facility] Address:[address] [place], [place] [address]Performed By: #### 08122-4 ####[facility] LABCLIA [id number] [place] [address] Bilirubin [Mass/Vol]0.3 mg/dLNormal0.2-1.3CCincinnati Shriners Hospital on above:Order Comment: Specimen Type: BLOOD SPECIMENOrdering Facility: [facility] Address:[address] [place], [place] [address]Performed By: #### 62355-0 ####[facility] LABCLIA [id number] [place], [place] [address]Nxkwloa [Mass/Vol]9.1 mg/dLNormal8.5-10.2CCincinnati Shriners Hospital on above:Order Comment: Specimen Type: BLOOD SPECIMENOrdering Facility: [facility] Address:[address] [place], [place] [address]Performed By: #### 19239-6 ####[facility] LABCLIA [id number] [place], [place] [address]Wvjhmsvh [Moles/Vol]108 mmol/ODfbv11-357NqvxinnjiUniversity Hospitals [facility]Point [facility] Center on above:Order Comment: Specimen Type: BLOOD SPECIMENOrdering Facility: [facility] Address:[address] [place], [place] [address]Performed By: #### 78455- 8 ####[facility] LABCLIA [id number] [facility] [place], [place] [address]MB5 [Moles/Vol]22 mmol/UDyhhse15-01QtbqrsrkaUniversity Hospitals TriPoint [facility] Center on above:Order Comment: Specimen Type: BLOOD SPECIMENOrdering Facility: [facility] Address:[address] [place], [place] [address]Performed By: #### 28808-8 ####[facility] LABCLIA [id number] [place], [place] [address]Sefnueahfi [Mass/Vol]0.71 mg/dL Low0.73-1.22[facility] on above:Order Comment: Specimen Type: BLOOD SPECIMENOrdering Facility: [facility] Address:[address] [place] [address]Ndzeuqcdp By: #### 73767-1 ####[facility] LABCLIA [id number] [place] [address] Creatinine and Glomerular filtration rate.predicted panel (S/P/Bld)101 mL/min/1.73m???Normal>=60[facility] on above:Order Comment: Specimen Type: BLOOD SPECIMENOrdering Facility: [facility] Address:[address] [place] [address]Luhobn Comment: Estimated Glomerular Filtration Rate (eGFR) is calculated using the 2020 CKD-EPI cre atinine equation. This equation utilizes serum creatinine, sex, and age as parameters. The creatinine assay has traceable calibration to isotope dilution- mass spectrometry. Refer to KDIGO guidelines for clinical interpretation. In patients with unstable renal function, e.g. those with acute kidney injury, the eGFR may not accurately reflect actual GFR.Performed By: #### 61361-6 ####[facility] LABCLIA [id number] [place], [place] [address]Aujcfsp [Mass/Vol]104 mg/uKHgvs34-23FgqpqauvoUniversity Hospitals TriPoint [facility] Center on above:Order Comment: Specimen Type: BLOOD SPECIMENOrdering Facility: [facility] Address:[address] [place] [address]Mrlpvh Comment: The [place] Diabetes Association (ADA) provides guidance for cutoff values for fasting glucose and random glucose. The ADA defines fasting as no caloric intake for at least 8 hours. Fasting plasma glucose results between 100 to 125 mg/dL indicate increased risk for diabetes (prediab etes).Fasting plasma glucose results greater than or equal to 126 mg/dL meet the criteria for diagnosis of diabetes. In the absence of unequivocal hyperglycemia, results should be confirmed by repeattesting. In a patient with classic symptoms of hyperglycemia or hyperglycemic crisis, random plasmaglucose results greater than or equal to 200 mg/dL meet the criteria for diagnosis of diabetes.Reference: Standards of Medical Care in Diabetes 2016, [place] [employer]. Diabetes Care. 2016.39(Suppl 1).Performed By: #### 95215-3 ####[facility] LABCLIA [id number] [place], [place] [address]Pxeimleqv [Moles/Vol]4.1 mmol/LNormal3.7-5.1CCincinnati Shriners Hospital on above:Order Comment: Specimen Type: BLOOD SPECIMENOrdering Facility: [facility] Address:[address] [place], [place] [address]Performed By: #### 39594-2 ####[facility] LABCLIA [id number] [place], [place] [address]Zljjvam [Mass/Vol]6.4 g/dLNormal6.3-8.0[facility] on above:Order Comment: Specimen Type: BLOOD SPECIMENOrdering Facility: [facility] Address:[address] [place], [place] [address]Performed By: #### 88770- 8 ####[facility] LABCLIA [id number] [place], [place] [address]Klpsom [Moles/Vol]140 mmol/VGbsqkv820-646EzpagpyarUniversity Hospitals [facility] on above:Order Comment: Specimen Type: BLOOD SPECIMENOrdering Facility: [facility] Address:[address] [place], [place] [address]Performed By: #### 23901-3 ####[facility] LABCLIA [id number] [place], [place] [address]Jxxs nitrogen [Mass/Vol]13 mg/dLNormal9-24[facility] on above:Order Comment: Specimen Type: BLOOD SPECIMENOrdering Facility: [facility] Address:[address] [place], [place] [address]Performed By: #### 57418-2 ####[facility] LABCLIA [id number] [place], [place] [address]Cbgjhhhtlu - Hematology and Cell countson 02-09-2025 Basophils/100 WBC (Bld)0.4 %NOMS HealthcareEosinophils/100 WBC (Bld)3.9 %[facility] Memorial HospitalErythrocyte distribution width (RBC) [Ratio]15.9 %High11.5 - 15.0 % [facility] HospitalHematocrit (Bld) [Volume fraction]36.3 %Low39.0 - 51.0 %[facility] HospitalHemoglobin (Bld) [Mass/Vol]12.5 g/dLLow13.0 - 17.0 g/dLEllett Memorial Hospital Lymphocytes/100 WBC (Bld)9.9 %[facility] Memorial HospitalMCH (RBC) [Entitic mass]33.7 pg26.0 - 34.0 pgEllett Memorial HospitalMCHC (RBC) [Mass/Vol]34.4 g/dL30.5 - 36.0 g/dLEllett Memorial HospitalMCV (RBC) [Entitic vol]97.8 fL80.0 - 100.0 fLEllett Memorial Hospital Monocytes/100 WBC (Bld)16.4 %[facility] HospitalNeutrophils/100 WBC (Bld)69 %[facility] Memorial HospitalRBC (Bld) [#/Vol]3.71 10*6/uLLow4.20 - 6.00 m/uLEllett Memorial HospitalNo Panel Informationon 78-76-6747Ckxbjycyubhvka and review of laboratory results AbnormalSSM [facility] HealthcareCNPNon 65-98-0793TRAHYvapolDipncvyob Clinic ClevelandCBC W Auto Differential panel (Bld)on 67-60-3120Lobuilxmo (Bld) [#/Vol]NINFCleveland ClinicDifferential cell count method Nom (Bld)AutoCleveland ClinicEosinophils (Bld) [#/Vol]0.32 10*3/uLNINFOhiohealth Hardin Memorial HospitalImmature granulocytes (Bld) [#/Vol]NINFCleveland ClinicImmature granulocytes/100 WBC (Bld)0.2 %[facility] Hard[facility] Memorial HospitalLymphocytes (Bld) [#/Vol]0.47 10*3/uLLowHickory Valley ClinicMonocytes (Bld) [#/Vol]0.87 10*3/uLHighNIACMC Healthcare SystemNeutrophils (Bld) [#/Vol]3.57 10*3/uLOhiohealth Hardin Memorial HospitalNucleated RBC (Bld) [#/Vol]NINF [facility] Memorial HospitalNucleated RBC/100 WBC (Bld) [Ratio]0 %/100 WBCOhiohealth Hardin Memorial Hospital Platelet mean volume (Bld) [Entitic vol]8.8 fLLow9.0 - 12.7 fLCOur Lady of Mercy Hospital [facility] Anderson Platelets (Bld) [#/Vol]137 10*3/uLLowOhiohealth Hardin Memorial HospitalWBC (Bld) [#/Vol]5.26 10*3/uLOhiohealth Hardin Memorial HospitalBasophils (Bld) [#/Vol]10*3/uLNormal<0.11CSelect Medical Specialty Hospital - Cleveland-FairhillComment on above:Order Comment: Specimen Type: BLOOD SPECIMENOrdering Facility: [facility] Address:[address] [place], [place] [address]Performed By: #### 04346-1 ####[facility] LABIA [id number] [place], [place] [address]Ytpglagym/100 WBC (Bld)0.4 % NormalUniversity Hospitals TriPoint Medical Center on above:Order Comment: Specimen Type: BLOOD SPECIMENOrdering Facility: [facility] Address:[address] [place], [place] [address]Performed By: #### 76305-3 ####[facility] LABIA [id number] [place] [address] Differential cell count method Nom (Bld)AutoNormalCSelect Medical Specialty Hospital - [place]-Fairhill Comment on above:Order Comment: Specimen Type: BLOOD SPECIMENOrdering Facility: [facility] Address:[address] [place] [address] Performed By: #### 14569-6 ####[facility] LABIA [id number] [place], [place] [address]Vkcgzsbcejz (Bld) [#/Vol]0.32 10*3/uLNormal<0.46[facility] on above:Order Comment: Specimen Type: BLOOD SPECIMENOrdering Facility: [facility] Address:[address] [place], [place] [address]Performed By: #### 04660-1 ####[facility] LABIA [id number] [place], [place] [address]Hjwqosgpvgz/100 WBC (Bld)6.1 %NormalUniversity Hospitals TriPoint Medical Center on above:Order Comment: Specimen Type: BLOOD SPECIMENOrdering Facility: [facility] Address:[address] [place], [place] [address]Performed By: #### 09131-2 ####[facility] LABIA [id number] [place], [place] [address]Aulljnvvzpy distribution width (RBC) [Ratio]16.1 %High11.5-15.0[facility] on above:Order Comment: Specimen Type: BLOOD SPECIMENOrdering Facility: [facility] Address:[address] [place], [place] [address]Performed By: #### 84473- 8 ####[facility] LABIA [id number] [place], [place] [address]Gnhievzkna (Bld) [Volume fraction]36.4 %Low39.0-51.0 [facility] on above:Order Comment: Specimen Type: BLOOD SPECIMENOrdering Facility: [facility] Address:[address] [place], [place] [address]Performed By: #### 79518-5 ####[facility] LABIA [id number] [place], [place] [address]Walhqrhiuv (Bld) [Mass/Vol]12.5 g/dLLow13.0-17.0[facility] on above:Order Comment: Specimen Type: BLOOD SPECIMENOrdering Facility: [facility] Address:[address] [place], [place] [address]Performed By: #### 18585- 8 ####[facility] LABIA [id number] [place], [place] [address]Sotdfkxq granulocytes (Bld) [#/Vol]10*3/uLNormal<0.10 [facility] on above:Order Comment: Specimen Type: BLOOD SPECIMENOrdering Facility: [facility] Address:[address] [place], [place] [address]Performed By: #### 99730-2 ####[facility] LABCLIA [id number] [place], [place] [address]Eoucbetn granulocytes/100 WBC (Bld)0.2 %NormalUniversity Hospitals TriPoint Medical Center on above: Order Comment: Specimen Type: BLOOD SPECIMENOrdering Facility: [facility] Address:[address] [place], [place] [address]Performed By: #### 93219- 8 ####[facility] LABIA [id number] [place], [place] [address]Xcjudeenycg (Bld) [#/Vol]0.47 10*3/uLLow1.00-4.00 [facility] on above:Order Comment: Specimen Type: BLOOD SPECIMENOrdering Facility: [facility] Address:[address] [place], [place] [address]Performed By: #### 05593-7 ####[facility] LABIA [id number] [place], [place] [address]Ombeuymmwpx/100 WBC (Bld)8.9 %NormalUniversity Hospitals TriPoint Medical Center on above:Order Comment: Specimen Type: BLOOD SPECIMENOrdering Facility: [facility] Address:[address] [place], [place] [address]Performed By: #### 79524-3 ####[facility] LABIA [id number] [place], [place] [address]SWM (RBC) [Entitic mass]33.4 owLdexet34.0-34.0[facility] on above:Order Comment: Specimen Type: BLOOD SPECIMENOrdering Facility: [facility] Address:[address] [place], [place] [address]Performed By: #### 29955-1 ####[facility] LABCLIA [id number] [place], [place] [address]DUGP (RBC) [Mass/Vol]34.3 g/tBZaaool76.5-36.0[facility] on above: Order Comment: Specimen Type: BLOOD SPECIMENOrdering Facility: [facility] Address:[address] [place], [place] [address]Performed By: #### 20454- 8 ####[facility] LABCLIA [id number] [place], [place] [address]MCP (RBC) [Entitic vol]97.3 kVHmlbaw92.0-100.0[facility] on above:Order Comment: Specimen Type: BLOOD SPECIMENOrdering Facility: [facility] Address:[address] [place], [place] [address]Performed By: #### 57042-3 ####[facility] LABIA [id number] [place], [place] [address]Dclalrjed (Bld) [#/Vol]0.87 10*3/uLHigh<0.87[facility] on above:Order Comment: Specimen Type: BLOOD SPECIMENOrdering Facility: [facility] Address:[address] [place], [place] [address]Performed By: #### 47499- 8 ####[facility] LABCLIA [id number] [place], [place] [address]Phafemqhg/100 WBC (Bld)16.5 %NormalUniversity Hospitals TriPoint Medical Center on above:Order Comment: Specimen Type: BLOOD SPECIMENOrdering Facility: [facility] Address:[address] [place], [place] [address]Performed By: #### 18582-9 ####[facility] LABIA [id number] [place], [place] [address]Crincbkppan (Bld) [#/Vol]3.57 10*3/uLNormal1.45-7.50[facility] on above:Order Comment: Specimen Type: BLOOD SPECIMENOrdering Facility: [facility] Address:[address] [place], [place] [address]Performed By: #### 83713-5 ####[facility] LABCLIA [id number] [place], [place] [address]Easalngqzfm/100 WBC (Bld)67.9 %NormalUniversity Hospitals TriPoint Medical Center on above:Order Comment: Specimen Type: BLOOD SPECIMENOrdering Facility: [facility] Address:[address] [place], [place] [address]Performed By: #### 49280-9 ####[facility] LABCLIA [id number] [place], [place] [address]Fwokpylgv RBC (Bld) [#/Vol] 10*3/uLNormal<0.01[facility] on above:Order Comment: Specimen Type: BLOOD SPECIMENOrdering Facility: [facility] Address:[address] [place], [place] [address]Performed By: #### 99382-2 ####[facility] LABCLIA [id number] [place], [place] [address]Rdundkjkl RBC/100 WBC (Bld) [Ratio]0.0 /100 WBCNormal [facility] on above:Order Comment: Specimen Type: BLOOD SPECIMENOrdering Facility: [facility] Address:[address] [place], [place] [address]Performed By: #### 76342-9 ####[facility] LABIA [id number] [place], [place] [address]Wxgwpzzq mean volume (Bld) [Entitic vol]8.8 fLLow9.0-12.7CCinc[facility] on above:Order Comment: Specimen Type: BLOOD SPECIMENOrdering Facility: [facility] Address:[address] [place], [place] [address]Performed By: #### [id number] ####[facility] LABCLIA [id number] [place], [place] [address]Ifdesbbtd (Bld) [#/Vol]137 10*3/lXYfv455-151LqfallkcsUniversity Hospitals [facility] on above:Order Comment: Specimen Type: BLOOD SPECIMENOrdering Facility: [facility] Address:[address] [place], [place] [address]Performed By: #### [id number] ####[facility] [facility] LABCLIA [id number] [place], [place] [address]NAR (Bld) [#/Vol]3.74 10*6/uLLow4.20-6.00[facility] on above:Order Comment: Specimen Type: BLOOD SPECIMENOrdering Facility: [facility] Address:[address] [place], [place] [address]Performed By: #### 59249- 8 ####[facility] LABCLIA [id number] [place], [place] [address]ARD (Bld) [#/Vol]5.26 10*3/uLNormal3.70-11.00[facility] on above:Order Comment: Specimen Type: BLOOD SPECIMENOrdering Facility: [facility] Address:[address] [place], [place] [address]Performed By: #### 20408-9 ####[facility] LABCLIA [id number] [place], [place] [address]IWX CBC W AUTO DIFF BLDon 10-41-7401SHT BASOPHILS # BLD AUTO<0.03NINFNOMS HealthcareCCF DIFFERENTIAL METHOD BLDAutoNOMS HealthcareCCF EOSINOPHIL # BLD AUTO0.32NINFNOMS HealthcareCCF LYMPHOCYTES # BLD AUTO0.47LowNOMS HealthcareCCF MONOCYTES # BLD AUTO0.87HighNINFNORI HealthcareCCF NEUTROPHILS # BLD AUTO3.57NOMS HealthcareF NRBC # BLD AUTO<0.01NINFNOMS HealthcareCCF NRBC/100 WBC BLD-RTO0/100 WBCNOFreeman Orthopaedics & Sports Medicine PLATELET # BLD [id number] Health Lakewood Medical CenterF PMV BLD AUTO8.8 fLLow 9.0 - 12.7 fLMadison Medical CenterF WBC # BLD AUTO5.26NOProgress West HospitalM GRANULOCYTES # BLD AUTO<0.03NINFNOSSM [facility] GRANULOCYTES/LEUK NFR BLD AUTO0.2 %NOMS HealthcareSpecimen Type: BLOOD SPECIMEN [facility] Address: [address] [place] [address] Original Ordering Provider: ANGELINA Goyalyanick 01-26-2025 Carcinoembryonic Ag [Mass/Vol]1.9 ng/mLNormal<=2.9CSelect [facility] Comment on above:Order Comment: Specimen Type: BLOOD SPECIMENOrdering Facility: [facility] Address:[address] [place], [place] [address]Result Comment: Carcinoembryonic antigen test is used as an aid in monitoring response to treatmentor recurrence in patients with established colorectal, breast, lung, prostatic, pancreatic, and ovarian carcinomas. Clinical correlation is required.The Carcinoembryonic antigen test was performed using the Edy Sallie Unicel DXI paramagnetic particle chemiluminescent immunoassay method. Results obtained with different assay methods or kits cannot be used interchangeably.Performed By: #### 2039-6 ####[facility] LABCLIA [id number] [place] [address] [place] OF AMERICACNCNPATEDon [id number] [facility] ClevelandCNOVSPon 73-03-6837JUQZZVZvimkvVbcgthhzv Clinic ClevelandCNPNon 32-39-1541IPWSQiowjt [facility] HospitalComprehensive metabolic 2000 panelOrdered By: Bertin Key on 14-85-3390Gschlet [Mass/Vol]4 g/dL3.9 - 4.9 g/dLHickory Valley ClinicALP [Catalytic activity/Vol]80 U/L38 - 113 U/LCleveland ClinicALT [Catalytic activity/Vol]12 U/L10 - 54 U/LCleveland ClinicAnion gap [Moles/Vol]9 mmol/L8 - 15 mmol/LCleveland ClinicAST [Catalytic activity/Vol]18 U/L14 - 40 U/LCleveland ClinicBilirubin [Mass/Vol]0.3 mg/dL0.2 - 1.3 mg/dLClethe bellevue hospital ClinicCalcium [Mass/Vol]9.2 mg/dL8.5 - 10.2 mg/dLHickory Valley ClinicChloride [Moles/Vol]105 mmol/L98 - 107 mmol/LCleveland ClinicCO2 [Moles/Vol]23 mmol/L22 - 30 mmol/L [facility] ClinicCreatinine [Mass/Vol]0.68 mg/dLLow0.73 - 1.22 mg/dLHickory Valley ClinicGFR/1.73 sq M.predicted among non-blacks MDRD (S/P/Bld) [Vol rate/Area]103 mL/min/{1.73_m2}- PINFCleveland ClinicComment on above:Estimated Glomerular Filtration Rate (eGFR) is calculated using the 2020 CKD-EPI creatinine equation. This equation utilizes serum creatinine, sex, and age as parameters. The creatinine assay has traceable calibration to isotope dilution-mass spectrometry. Refer to KDIGO guidelines for clinical interpretation. In patients with unstable renal function, e.g. those with acute kidney injury, the eGFRmay not accurately reflect actual GFR.Glucose [Mass/Vol]103 mg/bLVpqk48 - 99 mg/dL [facility]in Memorial HospitalComment on above:The [place] Diabetes Association (ADA) provides guidance for cutoff values for fasting glucose andrandom glucose. The ADA defines fasting as no caloric intake for at least 8 hours. Fasting plasma gl ucose results between 100 to 125 mg/dL indicate [...] Standards of Medical Care in Diabetes 2016, [place] [employer]. Diabetes Care. 2016.39(Suppl 1). Interpretation and review of laboratory resultsAbnormalCleveland ClinicPotassium [Moles/Vol]4.1 mmol/L3.7 - 5.1 mmol/LCleveland ClinicProtein [Mass/Vol]6.3 g/dL 6.3 - 8.0 g/dLSelect Medical Cleveland Clinic Rehabilitation Hospital, Beachwoododium [Moles/Vol]137 mmol/L136 - 144 mmol/L [facility] Memorial HospitalUrea nitrogen [Mass/Vol]13 mg/dL9 - 24 mg/dLCity Hospitalprehensive metabolic 2000 panelon 83-45-1587Egtyyow [Mass/Vol]4.0 g/dLNormal3.9-4.9CCincinnati Shriners Hospital on above:Order Comment: Specimen Type: BLOOD SPECIMENOrdering Facility: [facility] Address:[address] [place], [place] [address]Performed By: #### 73526- 8 ####[facility] LABCLIA [id number] [place], [place] [address]LNG [Catalytic activity/Vol]80 U/XFkxcyi90-270PchltrcvjUniversity Hospitals [facility] on above:Order Comment: Specimen Type: BLOOD SPECIMENOrdering Facility: [facility] Address:[address] [place], [place] [address]Performed By: #### 54622-9 ####[facility] LABIA [id number] [place], [place] [address]POR [Catalytic activity/Vol]12 U/HFkxhkp21-45EkqcrkbknUniversity Hospitals TriPoint [facility] Center on above:Order Comment: Specimen Type: BLOOD SPECIMENOrdering Facility: [facility] Address:[address] [place], [place] [address]Performed By: #### 49096- 8 ####[facility] LABCLIA [id number] [place], [place] [address]Klvsx gap [Moles/Vol]9 mmol/LNormal8-15[facility] on above:Order Comment: Specimen Type: BLOOD SPECIMENOrdering Facility: [facility] Address:[address] [place], [place] [address]Performed By: #### 25485-8 ####[facility] LABCLIA [id number] [place], [place] [address]OQI [Catalytic activity/Vol]18 U/HExakzp78-60ByokvbhwyUniversity Hospitals TriPoint [facility] Center on above:Order Comment: Specimen Type: BLOOD SPECIMENOrdering Facility: [facility] Address:[address] [place], [place] [address]Performed By: #### 82285-8 ####[facility] LABCLIA [id number] [place] [address] Bilirubin [Mass/Vol]0.3 mg/dLNormal0.2-1.3CCincinnati Shriners Hospital on above:Order Comment: Specimen Type: BLOOD SPECIMENOrdering Facility: [facility] Address:[address] [place], [place] [address]Performed By: #### 09661-2 ####[facility] LABCLIA [id number] [place], [place] [address]Jkhotfj [Mass/Vol]9.2 mg/dLNormal8.5-10.2CCincinnati Shriners Hospital on above:Order Comment: Specimen Type: BLOOD SPECIMENOrdering Facility: [facility] Address:[address] [place], [place] [address]Performed By: #### 95305-5 ####[facility] LABCLIA [id number] [place], [place] [address]Bjqcemph [Moles/Vol]105 mmol/XPeowom57-065YyprbwmxiUniversity Hospitals [facility] on above: Order Comment: Specimen Type: BLOOD SPECIMENOrdering Facility: [facility] Address:[address] [place], [place] [address]Performed By: #### 12657- 8 ####[facility] LABCLIA [id number] [place], [place] [address]MW4 [Moles/Vol]23 mmol/YTzxiow15-03JlnbitstlUniversity Hospitals TriPoint [facility] on above:Order Comment: Specimen Type: BLOOD SPECIMENOrdering Facility: [facility] Address:[address] [place], [place] [address]Performed By: #### 94605-5 ####[facility] LABCLIA [id number] [place], [place] [address]Mqtbghukep [Mass/Vol]0.68 mg/dL Low0.73-1.22[facility] on above:Order Comment: Specimen Type: BLOOD SPECIMENOrdering Facility: [facility] Address:[address] [place], [place] [address]Performed By: #### 21169-7 ####[facility] LABIA [id number] [place] [address] Creatinine and Glomerular filtration rate.predicted panel (S/P/Bld)103 mL/min/1.73m???Normal>=60[facility] on above:Order Comment: Specimen Type: BLOOD SPECIMENOrdering Facility: [facility] Address:[address] [place], [place] [address]Result Comment: Estimated Glomerular Filtration Rate (eGFR) is calculated using the 2020 CKD-EPI cre atinine equation. This equation utilizes serum creatinine, sex, and age as parameters. The creatinine assay has traceable calibration to isotope dilution- mass spectrometry. Refer to KDIGO guidelines for clinical interpretation. In patients with unstable renal function, e.g. those with acute kidney injury, the eGFR may not accurately reflect actual GFR.Performed By: #### 99640-2 ####[facility] LABIA [id number] [place], [place] [address]Brxvjbp [Mass/Vol]103 mg/yUKotx25-38XufjpsaquUniversity Hospitals [facility] on above:Order Comment: Specimen Type: BLOOD SPECIMENOrdering Facility: [facility] Address:[address] [place], [place] [address]Result Comment: The [place] Diabetes Association (ADA) provides guidance for cutoff values for fasting glucose and random glucose. The ADA defines fasting as no caloric intake for at least 8 hours. Fasting plasma glucose results between 100 to 125 mg/dL indicate increased risk for diabetes (prediab etes).Fasting plasma glucose results greater than or equal to 126 mg/dL meet the criteria for diagnosis of diabetes. In the absence of unequivocal hyperglycemia, results should be confirmed by repeattesting. In a patient with classic symptoms of hyperglycemia or hyperglycemic crisis, random plasmaglucose results greater than or equal to 200 mg/dL meet the criteria for diagnosis of diabetes.Reference: Standards of Medical Care in Diabetes 2016, [place] Diabetes Association. Diabetes Care. 2016.39(Suppl 1).Performed By: #### 26288-9 ####[facility] LABCLIA [id number] [place], [place] [address]Woyyqsecp [Moles/Vol]4.1 mmol/LNormal3.7-5.1CCincinnati Shriners Hospital on above:Order Comment: Specimen Type: BLOOD SPECIMENOrdering Facility: [facility] Address:[address] [place], [place] [address]Performed By: #### 64178-8 ####[facility] LABCLIA [id number] [place], [place] [address]Yxndlqx [Mass/Vol]6.3 g/dLNormal6.3-8.0[facility] on above:Order Comment: Specimen Type: BLOOD SPECIMENOrdering Facility: [facility] Address:[address] [place], [place] [address]Performed By: #### 87415- 8 ####[facility] LABCLIA [id number] [place], [place] [address]Cwjdff [Moles/Vol]137 mmol/NSbfnhu548-792WkfxkmgmoUniversity Hospitals [facility] on above:Order Comment: Specimen Type: BLOOD SPECIMENOrdering Facility: [facility] Address:[address] [place], [place] [address]Performed By: #### 34785-3 ####[facility] LABCLIA [id number] [place], [place] [address]Mjyt nitrogen [Mass/Vol]13 mg/dLNormal9-24[facility] on above:Order Comment: Specimen Type: BLOOD SPECIMENOrdering Facility: [facility] Address:[address] [place], [place] [address]Performed By: #### 77925-0 ####[facility] LABCLIA [id number] [place], [place] [address]Svmzjssjwd - Hematology and Cell countson 01-26-2025 Basophils/100 WBC (Bld)0.4 %[facility] HospitalEosinophils/100 WBC (Bld)6.1 %[facility] HospitalErythrocyte distribution width (RBC) [Ratio]16.1 %High11.5 - 15.0 % [facility] HospitalHematocrit (Bld) [Volume fraction]36.4 %Low39.0 - 51.0 %[facility] HospitalHemoglobin (Bld) [Mass/Vol]12.5 g/dLLow13.0 - 17.0 g/dLEllett Memorial Hospital Lymphocytes/100 WBC (Bld)8.9 %[facility] HospitalMCH (RBC) [Entitic mass]33.4 pg26.0 - 34.0 pgSalem Memorial District HospitalHC (RBC) [Mass/Vol]34.3 g/dL30.5 - 36.0 g/dLSalem Memorial District HospitalV (RBC) [Entitic vol]97.3 fL80.0 - 100.0 fLEllett Memorial Hospital Monocytes/100 WBC (Bld)16.5 %[facility] HospitalNeutrophils/100 WBC (Bld)67.9 %[facility] HospitalRBC (Bld) [#/Vol]3.74 10*6/uLLow4.20 - 6.00 m/uLEllett Memorial HospitalNo Panel Informationon 81-28-6062Kdhcxowepjfqao and review of laboratory results AbnormalFormerly Mercy Hospital SouthMR PELVIS W AND WO CONTRASTon 07-00-4425UN PELVIS W AND WO CONTRASTMR PELVIS W AND WO CONTRAST Reason for exam: History of rectal carcinoma, history of chemo and radiation treatments Technical: Multiplanar T1, fast spin echo, fluid-sensitive, gradient echo, diffusion and postcontrast sequences were performed through the pelvis. Contrast: View a-5 cc IV Prior comparative studies: 10/29/2024 Findings: There is a circumferential lobulated mass in the rectum. This occurs approximately 6-7 cmproximal to the anus. Single wall thickness of the rectal mass measures a maximum of 1.3 cm (3.2 cm previously). In coronal sequence, the mass measures approximately 4.1 x 3.4 cm (4.9 x 4.2 cm previously). There is micro lobulation and some spiculation surrounding the rectal mass extending into the ischial rectal fat. There is a small amount of fluid signal surrounding the periphery of the mass. There is a enlarged lymph node or mass residing at the S2 segment in the presacral space measuring 2.1 x 1.7 cm (3.1 x 2.6 cm previously). There is a smaller lymph node residing at the S1 level in the presacral space measuring 1.0 cm (1.3cm previously). No additional definite adenopathy or mass is apparent. Visualized osseous structures appear intact. IMPRESSION: 1. Circumferential rectal mass/malignancy. There has been moderate reduction in size with comparative measurements given above. 2. Nearby presacral metastatic deposits. These have diminished moderately in size as well with comparative measurements given above.NormalNot AvailableLEXINGTON SHRINERS [facility] W Auto Differential panel (Bld)on 79-91-8446Qlvufdlqh (Bld) [#/Vol]NINSelect Medical Specialty Hospital - Boardman, IncDifferential cell count method Nom (Bld)AutoCleveland ClinicEosinophils (Bld) [#/Vol]0.5 10*3/uLHighNIACMC Healthcare SystemImmature granulocytes (Bld) [#/Vol]NINFClevelGenesis HospitalImmature granulocytes/100 WBC (Bld)0.4 %[facility] Hardin Memorial HospitalLymphocytes (Bld) [#/Vol]0.49 10*3/uLLowHickory Valley ClinicMonocytes (Bld) [#/Vol]0.94 10*3/uLHighNINFOhiohealth Hardin Memorial HospitalNeutrophils (Bld) [#/Vol]3.5 10*3/uL [facility] Memorial HospitalNucleated RBC (Bld) [#/Vol]NINFClevelGenesis HospitalNucleated RBC/100 WBC (Bld) [Ratio]0 %/100 WBCHickory Valley ClinicPlatelet mean volume (Bld) [Entitic vol]8.8 fLLow9.0 - 12.7 fLCleveland ClinicPlatelets (Bld) [#/Vol]169 10*3/uL [facility] Valley ClinicWBC (Bld) [#/Vol]5.47 10*3/uLHickory Valley ClinicBasophils (Bld) [#/Vol]10*3/uLNormal<0.11CCincinnati Shriners Hospital on above:Order Comment: Specimen Type: BLOOD SPECIMENOrdering Facility: [facility] Address:[address] [place], [place] [address]Performed By: #### 05100- 8 ####[facility] LABCLIA [id number] [place], [place] [address]Rkoibalwu/100 WBC (Bld)0.4 %NormalUniversity Hospitals TriPoint Medical Center on above:Order Comment: Specimen Type: BLOOD SPECIMENOrdering Facility: [facility] Address:[address] [place], [place] [address]Performed By: #### 22192-5 ####[facility] LABCLIA [id number] [place], [place] [address]Wkcwoninmvbs cell count method Nom (Bld)AutoNormalClevelFostoria City Hospital on above:Order Comment: Specimen Type: BLOOD SPECIMENOrdering Facility: [facility] Address:[address] [place], [place] [address]Performed By: #### 76515-2 ####[facility] LABCLIA [id number] [place], [place] [address]Dciwlpjdiqg (Bld) [#/Vol]0.50 10*3/uLHigh<0.46[facility] on above:Order Comment: Specimen Type: BLOOD SPECIMENOrdering Facility: [facility] Address:[address] [place], [place] [address]Performed By: #### 89843-9 ####[facility] LABCLIA [id number] [place], [place] [address]Exfpylqvqzp/100 WBC (Bld)9.1 %NormalUniversity Hospitals TriPoint Medical Center on above:Order Comment: Specimen Type: BLOOD SPECIMENOrdering Facility: [facility] Address:[address] [place], [place] [address]Performed By: #### 68747-3 ####[facility] LABCLIA [id number] [place], [place] [address]Grehljskzdf distribution width (RBC) [Ratio]16.5 %High 11.5-15.0[facility] on above:Order Comment: Specimen Type: BLOOD SPECIMENOrdering Facility: [facility] Address:[address] [place], [place] [address]Performed By: #### 48493-1 ####[facility] LABIA [id number] [place] [address] Hematocrit (Bld) [Volume fraction]36.0 %Low39.0-51.0[facility] Comment on above:Order Comment: Specimen Type: BLOOD SPECIMENOrdering Facility: [facility] Address:[address] [place] [address] Performed By: #### 18957-1 ####[facility] LABIA [id number] [place], [place] [address]Qajbpcusxi (Bld) [Mass/Vol]12.3 g/dLLow13.0-17.0[facility] on above:Order Comment: Specimen Type: BLOOD SPECIMENOrdering Facility: [facility] Address:[address] [place], [place] [address]Performed By: #### 50274-4 ####[facility] LABIA [id number] [place], [place] [address]Epuoboiy granulocytes (Bld) [#/Vol]10*3/uLNormal<0.10 [facility] on above:Order Comment: Specimen Type: BLOOD SPECIMENOrdering Facility: [facility] Address:[address] [place], [place] [address]Performed By: #### 41147-1 ####[facility] LABIA [id number] [place], [place] [address]Guddrfkc granulocytes/100 WBC (Bld)0.4 %NormalUniversity Hospitals TriPoint Medical Center on above: Order Comment: Specimen Type: BLOOD SPECIMENOrdering Facility: [facility] Address:[address] [place], [place] [address]Performed By: #### 57153- 8 ####[facility] LABCLIA [id number] [place], [place] [address]Lvztwrfpott (Bld) [#/Vol]0.49 10*3/uLLow1.00-4.00 [facility] on above:Order Comment: Specimen Type: BLOOD SPECIMENOrdering Facility: [facility] Address:[address] [place], [place] [address]Performed By: #### 09681-2 ####[facility] LABCLIA [id number] [place], [place] [address]Allxdtqxyiw/100 WBC (Bld)9.0 %NormalUniversity Hospitals TriPoint Medical Center on above:Order Comment: Specimen Type: BLOOD SPECIMENOrdering Facility: [facility] Address:[address] [place], [place] [address]Performed By: #### 23620-6 ####[facility] LABCLIA [id number] [place], [place] [address]NQI (RBC) [Entitic mass]33.2 qfVnmgtz07.0-34.0[facility] on above:Order Comment: Specimen Type: BLOOD SPECIMENOrdering Facility: [facility] Address:[address] [place], [place] [address]Performed By: #### 55584-1 ####[facility] LABCLIA [id number] [place], [place] [address]EGTQ (RBC) [Mass/Vol]34.2 g/fSBjvtwp63.5-36.0[facility] on above: Order Comment: Specimen Type: BLOOD SPECIMENOrdering Facility: [facility] Address:[address] [place], [place] [address]Performed By: #### 12383- 8 ####[facility] LABCLIA [id number] [place], [place] [address]VWP (RBC) [Entitic vol]97.0 yFDkjxnr48.0-100.0[facility] on above:Order Comment: Specimen Type: BLOOD SPECIMENOrdering Facility: [facility] Address:[address] [place], [place] [address]Performed By: #### 33022-8 ####[facility] LABCLIA [id number] [place], [place] [address]Ispnmpjhd (Bld) [#/Vol]0.94 10*3/uLHigh<0.87[facility] on above:Order Comment: Specimen Type: BLOOD SPECIMENOrdering Facility: [facility] Address:[address] [place], [place] [address]Performed By: #### 78110- 8 ####[facility] LABCLIA [id number] [place], [place] [address]Papybiwdh/100 WBC (Bld)17.2 %NormalUniversity Hospitals TriPoint Medical Center on above:Order Comment: Specimen Type: BLOOD SPECIMENOrdering Facility: [facility] Address:[address] [place], [place] [address]Performed By: #### 07165-1 ####[facility] LABIA [id number] [place], [place] [address]Ohgzrfsgrzk (Bld) [#/Vol]3.50 10*3/uLNormal1.45-7.50[facility] on above:Order Comment: Specimen Type: BLOOD SPECIMENOrdering Facility: [facility] Address:[address] [place], [place] [address]Performed By: #### 76095-6 ####[facility] LABCLIA [id number] [place], [place] [address]Txctebmtrsm/100 WBC (Bld)63.9 %NormalUniversity Hospitals TriPoint Medical Center on above:Order Comment: Specimen Type: BLOOD SPECIMENOrdering Facility: [facility] Address:[address] [place], [place] [address]Performed By: #### 92156-1 ####[facility] LABCLIA [id number] [place], [place] [address]Qugjqanvf RBC (Bld) [#/Vol] 10*3/uLNormal<0.01[facility] on above:Order Comment: Specimen Type: BLOOD SPECIMENOrdering Facility: [facility] Address:[address] [place], [place] [address]Performed By: #### 38055-0 ####[facility] LABCLIA [id number] [place], [place] [address]Ptuacnwyy RBC/100 WBC (Bld) [Ratio]0.0 /100 WBCNormal [facility] on above:Order Comment: Specimen Type: BLOOD SPECIMENOrdering Facility: [facility] Address:[address] [place], [place] [address]Performed By: #### 14078-6 ####[facility] LABCLIA [id number] [place], [place] [address]Rtpvnrpu mean volume (Bld) [Entitic vol]8.8 fLLow9.0-12.7CCincinnati Shriners Hospital on above:Order Comment: Specimen Type: BLOOD SPECIMENOrdering Facility: [facility] Address:[address] [place], [place] [address]Performed By: #### 08302-4 ####[facility] LABCLIA [id number] [place], [place] [address]Otszrixer (Bld) [#/Vol]169 10*3/dHLyvkds195-746GhyvzxrwuUniversity Hospitals TriPoint [facility] Center on above:Order Comment: Specimen Type: BLOOD SPECIMENOrdering Facility: [facility] Address:[address] [place], [place] [address]Performed By: #### 88538-1 ####[facility] LABCLIA [id number] [place], [place] [address]OYU (Bld) [#/Vol]3.71 10*6/uLLow4.20-6.00[facility] on above:Order Comment: Specimen Type: BLOOD SPECIMENOrdering Facility: [facility] Address:[address] [place], [place] [address]Performed By: #### 69658- 8 ####[facility] LABCLIA [id number] [place], [place] [address]QWC (Bld) [#/Vol]5.47 10*3/uLNormal3.70-11.00[facility] on above:Order Comment: Specimen Type: BLOOD SPECIMENOrdering Facility: [facility] Address:[address] [place], [place] [address]Performed By: #### 78476-5 ####[facility] LABCL[facility] [id number] [place], [place] [address]GJV CBC W AUTO DIFF BLDon [id number] BASOPHILS # BLD AUTO<0.03NISumner Regional Medical Center DIFFERENTIAL METHOD BLDAutoNOMS [facility] [place] EOSINOPHIL # BLD AUTO0.5HighNINF [facility]OMRusk [facility] Center LYMPHOCYTES # BLD AUTO0.49LowNOFreeman Orthopaed[facility] & Sports [facility] MONOCYTES # BLD AUTO0.94HighNINFCox [place] NEUTROPHILS # BLD AUTO3.5NOSaint Mary's Health Center CCF NRBC # BLD AUTO<0.01NINFCox [place] NRBC/100 WBC BLD-RTO0/100 WBCNOUniversity Health Lakewood Medical CenterF PLATELET # BLD BUDY332FZRFFreeman Orthopaedics & Sports Medicine PMV BLD AUTO8.8 fLLow9.0 - 12.7 fLNOUniversity Health Lakewood Medical CenterF WBC # BLD AUTO5.47NOSaint Mary's Health CenterIM GRANULOCYTES # BLD AUTO<0.03NINFNortheast Regional Medical Center GRANULOCYTES/LEUK NFR BLD AUTO0.4 %NOMS HealthcareSpecimen Type: BLOOD SPECIMEN [facility] Facility[facility] Address: [address] [place] [address] Original Ordering Provider: ANGELINA Caal 01-12-2025 CNCNPATEDNormalCOur Lady of Mercy Hospital - Anderson ClevelandCNOVSPon [id number] Martins Ferry HospitalComprehensive metabolic 2000 panelOrdered By: Bertin Martinezy on 98-43-9660Foobzzp [Mass/Vol]4.1 g/dL3.9 - 4.9 g/dLHickory Valley ClinicALP [Catalytic activity/Vol]78 U/L38 - 113 U/LCleveland ClinicALT [Catalytic activity/Vol]9 U/LLow10 - 54 U/LCleveland ClinicAnion gap [Moles/Vol]7 mmol/LLow 8 - 15 mmol/LCleveland ClinicAST [Catalytic activity/Vol]15 U/L14 - 40 U/L [facility] HospitalBilirubin [Mass/Vol]0.4 mg/dL0.2 - 1.3 mg/dLOhiohealth Hardin Memorial Hospital Calcium [Mass/Vol]9 mg/dL8.5 - 10.2 mg/dLOhiohealth Hardin Memorial HospitalChloride [Moles/Vol]106 mmol/L98 - 107 mmol/LCleveland ClinicCO2 [Moles/Vol]24 mmol/L22 - 30 mmol/L [facility] HospitalCreatinine [Mass/Vol]0.74 mg/dL0.73 - 1.22 mg/dLOhiohealth Hardin [facility] Hospital GFR/1.73 sq M.predicted among non-blacks MDRD (S/P/Bld) [Vol rate/Area]100 mL/min/{1.73_m2}- PINFCOur Lady of Mercy Hospital - AndersonComment on above:Estimated Glomerular Filtration Rate (eGFR) is calculated using the 2020 CKD-EPI creatinine equation. This equation utilizes serum creatinine, sex, and age as parameters. The creatinine assay has traceable calibration to isotope dilution-mass spectrometry. Refer to KDIGO guidelines for clinical interpretation. In patients with unstable renal function, e.g. those with acute kidney injury, the eGFRmay not accurately reflect actual GFR.Glucose [Mass/Vol]102 mg/dTMqtw05 - 99 mg/dL [facility] HospitalComment on above:The [place] Diabetes Association (ADA) provides guidance for cutoff values for fasting glucose andrandom glucose. The ADA defines fasting as no caloric intake for at least 8 hours. Fasting plasma gl ucose results between 100 to 125 mg/dL indicate [...] Standards of Medical Care in Diabetes 2016, [place] Diabetes Association. Diabetes Care. 2016.39(Suppl 1). Interpretation and review of laboratory resultsAbnormalCleveland ClinicPotassium [Moles/Vol]3.7 mmol/L3.7 - 5.1 mmol/LClevelatrium health union west ClinicProtein [Mass/Vol]6.2 g/dL Low6.3 - 8.0 g/dLHickory Valley ClinicSodium [Moles/Vol]137 mmol/L136 - 144 mmol/L [facility] HospitalUrea nitrogen [Mass/Vol]10 mg/dL9 - 24 mg/dLSelect Medical Ohiohealth Rehabilitation HospitalComprehensive metabolic 2000 panelon 28-86-6915Kwrkdfp [Mass/Vol]4.1 g/dLNormal3.9-4.9CCinc[facility] on above:Order Comment: Specimen Type: BLOOD SPECIMENOrdering Facility: [facility] Address:[address] [place], [place] [address]Performed By: #### 11696- 8 ####[facility] LABCLIA [id number] [place], [place] [address]OCX [Catalytic activity/Vol]78 U/VJeukun59-680YkjcygdbpUniversity Hospitals TriPoint Medical Center on above:Order Comment: Specimen Type: BLOOD SPECIMENOrdering Facility: [facility] Address:[address] [id number] By: #### 94689-6 ####[facility] LABCLIA [id number] [place], [place] [address]DBG [Catalytic activity/Vol]9 U/ZIyz56-06HldfkfxciUniversity Hospitals TriPoint Medical Center on above:Order Comment: Specimen Type: BLOOD SPECIMENOrdering Facility: [facility] Address:[address] [place], [place] [address]Performed By: #### 37451- 8 ####[facility] LABCLIA [id number] [facility] KURT COLLINSVETERANS HE[facility] ADMIN[facility] [place], [place] [address]Xuzbo gap [Moles/Vol]7 mmol/LLow8-15[facility] on above:Order Comment: Specimen Type: BLOOD SPECIMENOrdering Facility: [facility] Address:[address] [place], [place] [address]Performed By: #### 84540-5 ####[facility] LABCLIA [id number] JOHANNY KURTGERMANVETERANS HEALTH ADMINISTRATION [facility] [place], [place] [address]LXT [Catalytic activity/Vol]15 U/XVyladc85-53IqpyejsndUniversity Hospitals TriPoint Medical Center on above:Order Comment: Specimen Type: BLOOD SPECIMENOrdering Facility: [facility] Address:[address] [place], [place] [address]Performed By: #### 15514-9 ####[facility] LABCLIA [id number] [facility] [place] [address] Bilirubin [Mass/Vol]0.4 mg/dLNormal0.2-1.3CCinc[facility] on above:Order Comment: Specimen Type: BLOOD SPECIMENOrdering Facility: [facility] Address:[address] [place], [place] [address]Performed By: #### 88876-4 ####[facility] LABCLIA [id number] [facility] KURTGERMANVETERANS HEALTH ADMINISTR[facility] [place], [place] [address]Uoxdubn [Mass/Vol]9.0 mg/dLNormal8.5-10.2CCinc[facility] on above:Order Comment: Specimen Type: BLOOD SPECIMENOrdering Facility: [facility] Address:[address] [place], [place] [address]Performed By: #### 90529-4 ####[facility] LABCLIA [id number] [facility] KURTGERMANVETERANS HEALTH ADMINISTRATION [facility] [place], [place] [address]Wqbfceth [Moles/Vol]106 mmol/PGjxkhm42-113GudrbykjqUniversity Hospitals TriPoint Medical Center on above: Order Comment: Specimen Type: BLOOD SPECIMENOrdering Facility: [facility] Address:[address] [place], [place] [address]Performed By: #### 47040- 8 ####[facility] LABCLIA [id number] [place], [place] [address]OI0 [Moles/Vol]24 mmol/OBrtrkm33-34RxjqupiuwUniversity Hospitals TriPoint Medical Center on above:Order Comment: Specimen Type: BLOOD SPECIMENOrdering Facility: [facility] Address:[address] [place], [place] [address]Performed By: #### 11789-9 ####[facility] LABCLIA [id number] [place], [place] [address]Xidzscezpn [Mass/Vol]0.74 mg/dL Normal0.73-1.22[facility] on above:Order Comment: Specimen Type: BLOOD SPECIMENOrdering Facility: [facility] Address:[address] [place], [place] [address]Performed By: #### 41522-1 ####[facility] LABCLIA [id number] [place], [place] [address]Rmzgdjtmrm and Glomerular filtration rate.predicted panel (S/P/Bld)100 mL/min/1.73m???Normal>=60[facility] on above:Order Comment: Specimen Type: BLOOD SPECIMENOrdering Facility: [facility] Address:[address] [place], [place] [address]Result Comment: Estimated Glomerular Filtration Rate (eGFR) is calculated using the 2020 CKD-EPI creatinine equation. This equation utilizes serum creatinine, sex, and age as parameters. The creatinine assay has traceable calibration to isotope dilution- mass spectrometry. Refer to KDIGO guidelines for clinical interpretation. In patients with unstable renal function, e.g. those with acute kidney injury, the eGFR may not accurately reflect actual GFR.Performed By: #### 61279-2 ####[facility] LABCLIA [id number] [place], [place] [address]Cgyfatz [Mass/Vol]102 mg/fCHzdp87-11WvcpjjseaUniversity Hospitals TriPoint Medical Center on above:Order Comment: Specimen Type: BLOOD SPECIMENOrdering Facility: [facility] Address:[address] [place], [place] [address]Result Comment: The [place] Diabetes Association (ADA) provides guidance for cutoff values for fasting glucose and random glucose. The ADA defines fasting as no caloric intake for at least 8 hours. Fasting plasma glucose results between 100 to 125 mg/dL indicate increased risk for diabetes (prediab etes).Fasting plasma glucose results greater than or equal to 126 mg/dL meet the criteria for diagnosis of diabetes. In the absence of unequivocal hyperglycemia, results should be confirmed by repeattesting. In a patient with classic symptoms of hyperglycemia or hyperglycemic crisis, random plasmaglucose results greater than or equal to 200 mg/dL meet the criteria for diagnosis of diabetes.Reference: Standards of Medical Care in Diabetes 2016, [place] Diabetes Association. Diabetes Care. 2016.39(Suppl 1).Performed By: #### 00165-4 ####[facility] LABCLIA [id number] [place], [place] [address]Noanomjls [Moles/Vol]3.7 mmol/LNormal3.7-5.1CCincinnati [facility]rin[facility] Hospital on above:Order Comment: Specimen Type: BLOOD SPECIMENOrdering Facility: [facility] Address:[address] [place], [place] [address]Performed By: #### 86406-9 ####[facility] LABCLIA [id number] [place], [place] [address]Xaydiix [Mass/Vol]6.2 g/dLLow6.3-8.0[facility] on above:Order Comment: Specimen Type: BLOOD SPECIMENOrdering Facility: [facility] Address:[address] [place], [place] [address]Performed By: #### 64695- 8 ####[facility] LABCLIA [id number] [place], [place] [address]Npvisi [Moles/Vol]137 mmol/IGwxsue237-261BlsivkmtqUniversity Hospitals TriPoint Medical Center on above:Order Comment: Specimen Type: BLOOD SPECIMENOrdering Facility: [facility] Address:[address] [place], [place] [address]Ofrnsmbyz By: #### 17617-1 ####[facility] LABCLIA [id number] [place], [place] [address]Smfo nitrogen [Mass/Vol]10 mg/dLNormal9-24Martins Ferry HospitalComment on above:Order Comment: Specimen Type: BLOOD SPECIMENOrdering Facility: [facility] Address:[address] [place] [address]Biyojzmbi By: #### 49145-8 ####[facility] LABCLIA [id number] [place], [place] [address]Esuymzdxzf - Hematology and Cell countson 01-12-2025 Basophils/100 WBC (Bld)0.4 %NOM HealthcareEosinophils/100 WBC (Bld)9.1 %[facility] Memorial HospitalErythrocyte distribution width (RBC) [Ratio]16.5 %High11.5 - 15.0 % [facility] HospitalHematocrit (Bld) [Volume fraction]36 %Low39.0 - 51.0 %[facility] HospitalHemoglobin (Bld) [Mass/Vol]12.3 g/dLLow13.0 - 17.0 g/dLEllett Memorial Hospital Lymphocytes/100 WBC (Bld)9 %[facility] HospitalH (RBC) [Entitic mass]33.2 pg26.0 - 34.0 pgSalem Memorial District HospitalHC (RBC) [Mass/Vol]34.2 g/dL30.5 - 36.0 g/dLSalem Memorial District HospitalV (RBC) [Entitic vol]97 fL80.0 - 100.0 fLEllett Memorial Hospital Monocytes/100 WBC (Bld)17.2 %[facility] Memorial HospitalNeutrophils/100 WBC (Bld)63.9 %[facility] Memorial HospitalRBC (Bld) [#/Vol]3.71 10*6/uLLow4.20 - 6.00 m/uLEllett Memorial HospitalNo Panel Informationon 24-61-1740Iliyrwduefpgom and review of laboratory results AbnormalNOEllis Fischel Cancer Center HealthcareHEPATITIS C AB W/RFL RNA, PCR W/RFL GENOTYPE,LIPAon 06-37-3547ISBUXVPLY C ANTIBODYNon-ReactiveNormalQuest DiagnosticsComment on above:Result Comment: HCV antibody was non-reactive. There is no laboratory evidence of HCV infection. In most cases, no further action is required. However, if recent HCV exposure is suspected, a test for HCV RNA (test code 95386) is suggested. REFERENCE RANGE: NONREACTIVE For additional information, please refer to http://education.Telebit/faq/ECL587 (This link is being provided for informational/ educational purposes only.)Performed By: #### 43479 #### [employer]/[place] [address] [place] [address] [employer] Cr[employer] Operator: Jimmy Lorenzo M.D.,PhDCBC W Auto Differential panel (Bld)on 59-16-9532Gsfnufkwj (Bld) [#/Vol]NINFCleveland ClinicDifferential cell count method Nom (Bld)AutoCleveland ClinicEosinophils (Bld) [#/Vol]0.52 10*3/uLHigh NINFCleveland ClinicImmature granulocytes (Bld) [#/Vol]0.03 10*3/uLNINFClethe bellevue hospital ClinicImmature granulocytes/100 WBC (Bld)0.6 %Hickory Valley ClinicLymphocytes (Bld) [#/Vol]0.45 10*3/uLLowClethe bellevue hospital ClinicMonocytes (Bld) [#/Vol]0.61 10*3/uLNINF [facility] Valley ClinicNeutrophils (Bld) [#/Vol]3.31 10*3/uLCleveland ClinicNucleated RBC (Bld) [#/Vol]NINFCleveland ClinicNucleated RBC/100 WBC (Bld) [Ratio]0 %/100 WBCHickory Valley ClinicPlatelet mean volume (Bld) [Entitic vol]9 fL9.0 - 12.7 fL Reyna ClinicPlatelets (Bld) [#/Vol]145 10*3/uLLowCleveland ClinicWBC (Bld) [#/Vol]4.93 10*3/uLCleveland ClinicBasophils (Bld) [#/Vol]10*3/uLNormal<0.11 [facility] on above:Order Comment: Specimen Type: BLOOD SPECIMENOrdering Facility: [facility] Address:[address] [place], [place] [address]Performed By: #### 67521-7 ####[facility] LABCLIA [id number] [place], [place] [address]Lbvmiqgru/100 WBC (Bld)0.2 %NormalUniversity Hospitals TriPoint Medical Center on above:Order Comment: Specimen Type: BLOOD SPECIMENOrdering Facility: [facility] Address:[address] [place], [place] [address]Performed By: #### 23639-6 ####[facility] LABCLIA [id number] [place], [place] [address]Jqpnjsdaqyok cell count method Nom (Bld)AutoNormal [facility] on above:Order Comment: Specimen Type: BLOOD SPECIMENOrdering Facility: [facility] Address:[address] [place], [place] [address]Performed By: #### 88398-7 ####[facility] LABCLIA [id number] [place], [place] [address]Phdpagrcxgp (Bld) [#/Vol]0.52 10*3/uLHigh<0.46[facility] on above: Order Comment: Specimen Type: BLOOD SPECIMENOrdering Facility: [facility] Address:[address] [place], [place] [address]Performed By: #### 70365- 8 ####[facility] LABCLIA [id number] [place], [place] [address]Lvaojgtqcgk/100 WBC (Bld)10.5 %NormalUniversity Hospitals TriPoint Medical Center on above:Order Comment: Specimen Type: BLOOD SPECIMENOrdering Facility: [facility] Address:[address] [place], [place] [address]Performed By: #### 56972-9 ####[facility] LABCLIA [id number] [place], [place] [address]Kizohgfqbsr distribution width (RBC) [Ratio]16.0 %High11.5-15.0[facility] on above:Order Comment: Specimen Type: BLOOD SPECIMENOrdering Facility: [facility] Address:[address] [place], [place] [address]Performed By: #### 04750- 8 ####[facility] LABIA [id number] [place], [place] [address]Kdqndfwuhk (Bld) [Volume fraction]36.8 %Low39.0-51.0 [facility] on above:Order Comment: Specimen Type: BLOOD SPECIMENOrdering Facility: [facility] Address:[address] [place], [place] [address]Performed By: #### 53784-7 ####[facility] LABIA [id number] [place], [place] [address]Kvbqoyvrhj (Bld) [Mass/Vol]12.7 g/dLLow13.0-17.0[facility] on above:Order Comment: Specimen Type: BLOOD SPECIMENOrdering Facility: [facility] Address:[address] [place], [place] [address]Performed By: #### 87660- 8 ####[facility] LABIA [id number] [place], [place] [address]Wpuopsed granulocytes (Bld) [#/Vol]0.03 10*3/uLNormal <0.10[facility] on above:Order Comment: Specimen Type: BLOOD SPECIMENOrdering Facility: [facility] Address:[address] [place], [place] [address]Performed By: #### 69809-7 ####[facility] LABIA [id number] [place], [place] [address]Cafmztbo granulocytes/100 WBC (Bld)0.6 %NormalUniversity Hospitals TriPoint Medical Center on above: Order Comment: Specimen Type: BLOOD SPECIMENOrdering Facility: [facility] Address:[address] [place], [place] [address]Performed By: #### 69865- 8 ####[facility] LABCLIA [id number] [place], [place] [address]Shodkclwpft (Bld) [#/Vol]0.45 10*3/uLLow1.00-4.00 [facility] on above:Order Comment: Specimen Type: BLOOD SPECIMENOrdering Facility: [facility] Address:[address] [place], [place] [address]Performed By: #### 70053-0 ####[facility] LABIA [id number] [place], [place] [address]Myinftgyypl/100 WBC (Bld)9.1 %NormalUniversity Hospitals TriPoint Medical Center on above:Order Comment: Specimen Type: BLOOD SPECIMENOrdering Facility: [facility] Address:[address] [place], [place] [address]Performed By: #### 94765-0 ####[facility] LABCLIA [id number] [place], [place] [address]ARA (RBC) [Entitic mass]32.8 mzTjkqqe16.0-34.0[facility] on above:Order Comment: Specimen Type: BLOOD SPECIMENOrdering Facility: [facility] Address:[address] [place], [place] [address]Performed By: #### 06991-8 ####[facility] LABCLIA [id number] [place], [place] [address]AVUL (RBC) [Mass/Vol]34.5 g/dCPbcywo86.5-36.0[facility] on above: Order Comment: Specimen Type: BLOOD SPECIMENOrdering Facility: [facility] Address:[address] [place], [place] [address]Performed By: #### 39487- 8 ####[facility] LABCLIA [id number] [place], [place] [address]ABM (RBC) [Entitic vol]95.1 uPVbzzkw01.0-100.0[facility] on above:Order Comment: Specimen Type: BLOOD SPECIMENOrdering Facility: [facility] Address:[address] [place], [place] [address]Performed By: #### 49810-1 ####[facility] LABIA [id number] [place], [place] [address]Kmylxegao (Bld) [#/Vol]0.61 10*3/uLNormal<0.87[facility] on above:Order Comment: Specimen Type: BLOOD SPECIMENOrdering Facility: [facility] Address:[address] [place], [place] [address]Performed By: #### 93309- 8 ####[facility] LABIA [id number] [place], [place] [address]Xadqzoyou/100 WBC (Bld)12.4 %NormalUniversity Hospitals TriPoint Medical Center on above:Order Comment: Specimen Type: BLOOD SPECIMENOrdering Facility: [facility] Address:[address] [place], [place] [address]Performed By: #### 94141-1 ####[facility] LABIA [id number] [place], [place] [address]Eepsiseixxe (Bld) [#/Vol]3.31 10*3/uLNormal1.45-7.50[facility] on above:Order Comment: Specimen Type: BLOOD SPECIMENOrdering Facility: [facility] Address:[address] [place], [place] [address]Performed By: #### 44575-5 ####[facility] LABIA [id number] [place], [place] [address]Cngpznroegz/100 WBC (Bld)67.2 %NormalUniversity Hospitals TriPoint Medical Center on above:Order Comment: Specimen Type: BLOOD SPECIMENOrdering Facility: [facility] Address:[address] [place], [place] [address]Performed By: #### 27029-0 ####[facility] LABCLIA [id number] [place], [place] [address]Uebiigjhc RBC (Bld) [#/Vol] 10*3/uLNormal<0.01[facility] on above:Order Comment: Specimen Type: BLOOD SPECIMENOrdering Facility: [facility] Address:[address] [place], [place] [address]Performed By: #### 38039-4 ####[facility] LABCLIA [id number] [place], [place] [address]Solrlbxym RBC/100 WBC (Bld) [Ratio]0.0 /100 WBCNormal [facility] on above:Order Comment: Specimen Type: BLOOD SPECIMENOrdering Facility: [facility] Address:[address] [place], [place] [address]Performed By: #### 44918-1 ####[facility] LABIA [id number] [place], [place] [address]Mtxguayd mean volume (Bld) [Entitic vol]9.0 fLNormal9.0-12.7CCincinnati [facility] on above:Order Comment: Specimen Type: BLOOD SPECIMENOrdering Facility: [facility] Address:[address] [place] [address] Performed By: #### 62767-3 ####[facility] LABCLIA [id number] [place], [place] [address]Ljsnsiagb (Bld) [#/Vol]145 10*3/bXImu356-462KthlxgnloUniversity Hospitals TriPoint Medical Center on above:Order Comment: Specimen Type: BLOOD SPECIMENOrdering Facility: [facility] Address:[address] [place], [place] [address]Performed By: #### 22757-2 ####[facility] LABCLIA [id number] [place], [place] [address]IKB (Bld) [#/Vol]3.87 10*6/uLLow4.20-6.00[facility] on above:Order Comment: Specimen Type: BLOOD SPECIMENOrdering Facility: [facility] Address:[address] [place], [place] [address]Performed By: #### 94210-7 ####[facility] LABCLIA [id number] [place], [place] [address]HGK (Bld) [#/Vol]4.93 10*3/uL Normal3.70-11.00[facility] on above:Order Comment: Specimen Type: BLOOD SPECIMENOrdering Facility: [facility] Address:[address] [place], [place] [address]Performed By: #### 79847-6 ####[facility] LABCLIA [id number] [place], [place] [address]VVA CBC W AUTO DIFF BLDon [id number] BASOPHILS # BLD AUTO<0.03NISumner [facility] Center DIFFERENTIAL METHOD BLDAutoNOMRusk Rehabilitation Center EOSINOPHIL # BLD AUTO0.52HighNINFCox [place] LYMPHOCYTES # BLD AUTO0.45 LowNOFreeman Orthopaedics & Sports Medicine MONOCYTES # BLD AUTO0.61NINFCox [place] NEUTROPHILS # BLD AUTO3.31NOFreeman Orthopaed[facility] & Sports Medicine NRBC # BLD AUTO<0.01NINFCox [place] NRBC/100 WBC BLD-RTO0/100 WBCNOFreeman Orthopaedics & Sports Medicine PLATELET # BLD SNAM915VtxQUBOCox [place] PMV BLD AUTO9 fL9.0 - 12.7 fLNOFreeman Orthopaedics & Sports Medicine WBC # BLD AUTO4.93 NOMS HealthcareIMM GRANULOCYTES # BLD AUTO0.03NINFNortheast Regional Medical Center GRANULOCYTES/LEUK NFR BLD AUTO0.6 %NOMS HealthcareSpecimen Type: BLOOD SPECIMEN [facility] Address: [address] [place] [address] Original Ordering Provider: KANA Tucker 01-06-2025 Carcinoembryonic Ag [Mass/Vol]1.7 ng/mLNormal<=2.9[facility] Comment on above:Order Comment: Specimen Type: BLOOD SPECIMENOrdering Facility: [facility] Address:[address] [place], [place] [address]Result Comment: Carcinoembryonic antigen test is used as an aid in monitoring response to treatmentor recurrence in patients with established colorectal, breast, lung, prostatic, pancreatic, and ovarian carcinomas. Clinical correlation is required.The Carcinoembryonic antigen test was performed using the Edy Empressr Unicel DXI paramagnetic particle chemiluminescent immunoassay method. Results obtained with different assay methods or kits cannot be used interchangeably.Performed By: #### 2039-6 ####[facility] LABCLIA [id number] [place] [address] [place] OF AMERICACNOVSPon 05-94-0992YHYZEJOdgifvKfjnfmiwg [facility] Alexander CampusComprehensive metabolic 2000 panelOrdered By: Chloe Williamson on 48-65-1973Iuyhobb [Mass/Vol]4 g/dL 3.9 - 4.9 g/dLHickory Valley ClinicALP [Catalytic activity/Vol]68 U/L38 - 113 U/L [facility] Valley ClinicALT [Catalytic activity/Vol]9 U/LLow10 - 54 U/LCleveland [facility] Anion gap [Moles/Vol]8 mmol/L8 - 15 mmol/LCleveland ClinicAST [Catalytic activity/Vol]14 U/L14 - 40 U/LCleveland ClinicBilirubin [Mass/Vol]0.4 mg/dL0.2 - 1.3 mg/dLHickory Valley ClinicCalcium [Mass/Vol]9.3 mg/dL8.5 - 10.2 mg/dLOhiohealth Hardin Memorial HospitalChloride [Moles/Vol]109 mmol/LHigh98 - 107 mmol/LCleveland ClinicCO2 [Moles/Vol]25 mmol/L22 - 30 mmol/LCleveland ClinicCreatinine [Mass/Vol]0.76 mg/dL0.73 - 1.22 mg/dLOhiohealth Hardin Memorial HospitalGFR/1.73 sq M.predicted among non-blacks MDRD (S/P/Bld) [Vol rate/Area]99 mL/min/{1.73_m2}- PINTwin City [facility] on above:Estimated Glomerular Filtration Rate (eGFR) is calculated using the 2020 CKD-EPI creatinine equation. This equation utilizes serum creatinine, sex, and age as parameters. The creatinine assay has traceable calibration to isotope dilution-mass spectrometry. Refer to KDIGO guidelines for clinical inte rpretation. In patients with unstable renal function, e.g. those with acute kidney injury, the eGFRmay not accurately reflect actual GFR.Glucose [Mass/Vol] 106 mg/jUVplp74 - 99 mg/dLOhio State East Hospital on above:The [place] Diabetes Association (ADA) provides guidance for cutoff [...] Standards of Medical Care in Diabetes 2016, [place] [employer]. Diabetes Care. 2016.39(Suppl 1). Interpretation and review of laboratory resultsAbnormalCleveland ClinicPotassium [Moles/Vol]3.9 mmol/L3.7 - 5.1 mmol/LCwhite hospital ClinicProtein [Mass/Vol]6.3 g/dL 6.3 - 8.0 g/dLSelect Medical [facility], Beachwoododium [Moles/Vol]142 mmol/L136 - 144 mmol/L [facility] Memorial HospitalUrea nitrogen [Mass/Vol]11 mg/dL9 - 24 mg/dLSelect Medical Ohiohealth Rehabilitation HospitalComprehensive metabolic 2000 panelon 94-05-2766Kctdysj [Mass/Vol]4.0 g/dLNormal3.9-4.9CCincinnati [facility]rin[facility] on above:Order Comment: Specimen Type: BLOOD SPECIMENOrdering Facility: [facility] Address:[address], [place] [address]Tcfggllqu By: #### 69268- 8 ####[facility] LABCLIA [id number] [place], [place] [address]OAA [Catalytic activity/Vol]68 U/IBqslkq21-465PdappqwmyUniversity Hospitals TriPoint [facility] on above:Order Comment: Specimen Type: BLOOD SPECIMENOrdering Facility: [facility] Address:[address] [place], [place] [address]Performed By: #### 71772-6 ####[facility] LABCLIA [id number] [facility]ENTER[place], [place] [address]AVQ [Catalytic activity/Vol]9 U/PVsp36-93ZunzfwidnUniversity Hospitals TriPoint Medical Center on above:Order Comment: Specimen Type: BLOOD SPECIMENOrdering Facility: [facility] Address:[address] [place], [place] [address]Performed By: #### 88549- 8 ####[facility] LABCLIA [id number] [place], [place] [address]Vwyvr gap [Moles/Vol]8 mmol/LNormal8-15[facility] on above:Order Comment: Specimen Type: BLOOD SPECIMENOrdering Facility: [facility] Address:[address] [place], [place] [address]Performed By: #### 30936-8 ####[facility] LABCLIA [id number] [place], [place] [address]ZXJ [Catalytic activity/Vol]14 U/TGudxvp81-64HnxaayeupUniversity Hospitals TriPoint Medical Center on above:Order Comment: Specimen Type: BLOOD SPECIMENOrdering Facility: [facility] Address:[address] [place], [place] [address]Performed By: #### 06658-1 ####[facility] LABCLIA [id number] [place] [address] Bilirubin [Mass/Vol]0.4 mg/dLNormal0.2-1.3CCincinnati Shriners Hospital on above:Order Comment: Specimen Type: BLOOD SPECIMENOrdering Facility: [facility] Address:[address] [place], [place] [address]Performed By: #### 87756-1 ####[facility] LABCLIA [id number] [facility] [place] [address]Pbwlnlv [Mass/Vol]9.3 mg/dLNormal8.5-10.2CCincinnati Shriners Hospital on above:Order Comment: Specimen Type: BLOOD SPECIMENOrdering Facility: [facility] Address:[address] [place], [place] [address]Performed By: #### 24433-2 ####[facility] LABCLIA [id number] [facility] [place] [address]Mbtyuedx [Moles/Vol]109 mmol/KMshf69-511XqyqtysgzUniversity Hospitals TriPoint [facility] Center on above:Order Comment: Specimen Type: BLOOD SPECIMENOrdering Facility: [facility] Address:[address] [place], [place] [address]Performed By: #### 40398- 8 ####[facility] LABCLIA [id number] [facility] [place], [place] [address]MJ0 [Moles/Vol]25 mmol/AIzsvrg80-72HgxehrfbpUniversity Hospitals TriPoint [facility] on above:Order Comment: Specimen Type: BLOOD SPECIMENOrdering Facility: [facility] Address:[address] [place], [place] [address]Performed By: #### 08148-1 ####[facility] LABCLIA [id number] [facility] [place], [place] [address]Zmjqxdofck [Mass/Vol]0.76 mg/dL Normal0.73-1.22[facility] on above:Order Comment: Specimen Type: BLOOD SPECIMENOrdering Facility: [facility] Address:[address] [place], [place] [address]Performed By: #### 39430-8 ####[facility] LABCLIA [id number] [facility] [place], [place] [address]Fnehhqhctd and Glomerular filtration rate.predicted panel (S/P/Bld)99 mL/min/1.73m???Normal>=60[facility] on above:Order Comment: Specimen Type: BLOOD SPECIMENOrdering Facility: [facility] Address:[address] [place], [place] [address]Otomcl Comment: Estimated Glomerular Filtration Rate (eGFR) is calculated using the 2020 CKD-EPI creatinine equation. This equation utilizes serum creatinine, sex, and age as parameters. The creatinine assay has traceable calibration to isotope dilution- mass spectrometry. Refer to KDIGO guidelines for clinical interpretation. In patients with unstable renal function, e.g. those with acute kidney injury, the eGFR may not accurately reflect actual GFR.Performed By: #### 60429-3 ####[facility] LABCLIA [id number] [place], [place] [address]Njqefqz [Mass/Vol]106 mg/gNBrju10-27BxsbkfvxpUniversity Hospitals TriPoint [facility] Center on above:Order Comment: Specimen Type: BLOOD SPECIMENOrdering Facility: [facility] Address:[address] [place], [place] [address]Result Comment: The [place] Diabetes Association (ADA) provides guidance for cutoff values for fasting glucose and random glucose. The ADA defines fasting as no caloric intake for at least 8 hours. Fasting plasma glucose results between 100 to 125 mg/dL indicate increased risk for diabetes (prediab etes).Fasting plasma glucose results greater than or equal to 126 mg/dL meet the criteria for diagnosis of diabetes. In the absence of unequivocal hyperglycemia, results should be confirmed by repeattesting. In a patient with classic symptoms of hyperglycemia or hyperglycemic crisis, random plasmaglucose results greater than or equal to 200 mg/dL meet the criteria for diagnosis of diabetes.Reference: Standards of Medical Care in Diabetes 2016, [place] Diabetes Association. Diabetes Care. 2016.39(Suppl 1).Performed By: #### 87141-3 ####[facility] LABCLIA [id number] [place], [place] [address]Pkltdqwgo [Moles/Vol]3.9 mmol/LNormal3.7-5.1CCincinnati Shriners Hospital on above:Order Comment: Specimen Type: BLOOD SPECIMENOrdering Facility: [facility] Address:[address] [id number] By: #### 47618-9 ####[facility] LABCLIA [id number] [place], [place] [address]Ouatxwh [Mass/Vol]6.3 g/dLNormal6.3-8.0[facility] on above:Order Comment: Specimen Type: BLOOD SPECIMENOrdering Facility: [facility] Address:[address] [place], [place] [address]Performed By: #### 45173- 8 ####[facility] LABCLIA [id number] [place], [place] [address]Nuuddj [Moles/Vol]142 mmol/EKcillb491-545CatjmjrhyUniversity Hospitals TriPoint Medical Center on above:Order Comment: Specimen Type: BLOOD SPECIMENOrdering Facility: [facility] Address:[address] [place], [place] [address]Performed By: #### 16576-1 ####[facility] LABCLIA [id number] [place], [place] [address]Knqe nitrogen [Mass/Vol]11 mg/dLNormal9-24[facility] on above:Order Comment: Specimen Type: BLOOD SPECIMENOrdering Facility: [facility] Address:[address] [place], [place] [address]Performed By: #### 94542-0 ####[facility] LABCLIA [id number] [place], [place] [address]Txhyizankh - Hematology and Cell countson 01-06-2025 Basophils/100 WBC (Bld)0.2 %[facility]OMS HealthcareEosinophils/100 WBC (Bld)10.5 %[facility]OMS HealthcareErythrocyte distribution width (RBC) [Ratio]16 %High11.5 - 15.0 %[facility] HealthcareHematocrit (Bld) [Volume fraction]36.8 %Low39.0 - 51.0 %[facility] HealthcareHemoglobin (Bld) [Mass/Vol]12.7 g/dLLow13.0 - 17.0 g/dLNOMS Healthcare Lymphocytes/100 WBC (Bld)9.1 %[facility] HealthcareMCH (RBC) [Entitic mass]32.8 pg26.0 - 34.0 pgSalem Memorial District HospitalHC (RBC) [Mass/Vol]34.5 g/dL30.5 - 36.0 g/dLSalem Memorial District HospitalV (RBC) [Entitic vol]95.1 fL80.0 - 100.0 fLEllett Memorial Hospital Monocytes/100 WBC (Bld)12.4 %[facility] Memorial HospitalNeutrophils/100 WBC (Bld)67.2 %[facility]OM[facility] HealthcareRBC (Bld) [#/Vol]3.87 10*6/uLLow4.20 - 6.00 m/uLEllett Memorial HospitalNo Panel Informationon [id number] and review of laboratory results AbnormalFormerly [facility]cy Hospital SouthCNPNon [id number] Clinic ClevelandCNPNon 95-24-6341HWBNDpfhykCivnsbpix Clinic ClevelandCNPNon 44-68-1259NMOGOocxyvLhkigrfofAshtabula County Medical Center W Auto Differential panel (Bld)on 81-03-7245Nczejlydl (Bld) [#/Vol]NINFCleveland ClinicBasophils/100 WBC (Bld)0.3 %[facility] HospitalDifferential cell count method Nom (Bld)AutoCleveland ClinicEosinophils (Bld) [#/Vol]0.36 10*3/uLNINFHickory Valley ClinicEosinophils/100 WBC (Bld)5.3 %[facility] Memorial HospitalErythrocyte distribution width (RBC) [Ratio]16.6 % High11.5 - 15.0 %[facility] Memorial HospitalHematocrit (Bld) [Volume fraction]39.4 %39.0 - 51.0 %[facility] HospitalHemoglobin (Bld) [Mass/Vol]13.5 g/dL13.0 - 17.0 g/dL [facility] HospitalImmature granulocytes (Bld) [#/Vol]0.03 10*3/uLNINFOhiohealth Hardin Memorial HospitalImmature granulocytes/100 WBC (Bld)0.4 %[facility] HospitalInterpretation and review of laboratory resultsAbnormalCleveland ClinicLymphocytes (Bld) [#/Vol] 0.51 10*3/uLLowCleveland ClinicLymphocytes/100 WBC (Bld)7.6 %[facility] Memorial HospitalH (RBC) [Entitic mass]32.8 pg26.0 - 34.0 pgCOhioHealth Southeastern Medical CenterHC (RBC) [Mass/Vol] 34.3 g/dL30.5 - 36.0 g/dLMercy Memorial HospitalV (RBC) [Entitic vol]95.9 fL80.0 - 100.0 fLCOur Lady of Mercy Hospital - AndersonMonocytes (Bld) [#/Vol]0.74 10*3/uLNINFOhiohealth Hardin Memorial Hospital Monocytes/100 WBC (Bld)11 %[facility] Memorial HospitalNeutrophils (Bld) [#/Vol]5.08 10*3/uL [facility] HospitalNeutrophils/100 WBC (Bld)75.4 %[facility] HospitalNucleated RBC (Bld) [#/Vol]NINFCOur Lady of Mercy Hospital - AndersonNucleated RBC/100 WBC (Bld) [Ratio]0 %/100 WBC [facility] Memorial HospitalPlatelet mean volume (Bld) [Entitic vol]8.5 fLLow9.0 - 12.7 fL [facility] Memorial HospitalPlatelets (Bld) [#/Vol]193 10*3/uLOhiohealth Hardin Memorial HospitalRBC (Bld) [#/Vol]4.11 10*6/uLLow4.20 - 6.00 m/[facility] CenterWBC (Bld) [#/Vol]6.74 10*3/uLMercy Health Tiffin Hospital ClinicBasophils (Bld) [#/Vol]10*3/uLNormal<0.11 [facility] on above:Order Comment: Specimen Type: BLOOD SPECIMENOrdering Facility: [facility] Address:[address] [place], [place] [address]Performed By: #### 45719-5 ####[facility] LABCLIA [id number] [place], [place] [address]Htwjkbchh/100 WBC (Bld)0.3 %NormalUniversity Hospitals TriPoint Medical Center on above:Order Comment: Specimen Type: BLOOD SPECIMENOrdering Facility: [facility] Address:[address] [place], [place] [address]Performed By: #### 87614-5 ####[facility] LABCLIA [id number] [place], [place] [address]Ktczxqzkysjx cell count method Nom (Bld)AutoNormal [facility] on above:Order Comment: Specimen Type: BLOOD SPECIMENOrdering Facility: [facility] Address:[address] [place], [place] [address]Performed By: #### 61016-6 ####[facility] LABIA [id number] [place], [place] [address]Kdfekzkbnro (Bld) [#/Vol]0.36 10*3/uLNormal<0.46[facility] on above: Order Comment: Specimen Type: BLOOD SPECIMENOrdering Facility: [facility] Address:[address] [place], [place] [address]Performed By: #### 06194- 8 ####[facility] LABCLIA [id number] [place], [place] [address]Jaypoutcnhe/100 WBC (Bld)5.3 %NormalUniversity Hospitals TriPoint Medical Center on above:Order Comment: Specimen Type: BLOOD SPECIMENOrdering Facility: [facility] Address:[address] [place], [place] [address]Performed By: #### 36195-7 ####[facility] LABIA [id number] [place], [place] [address]Arprhoxoces distribution width (RBC) [Ratio]16.6 %High11.5-15.0[facility] on above:Order Comment: Specimen Type: BLOOD SPECIMENOrdering Facility: [facility] Address:[address] [place], [place] [address]Performed By: #### 85251- 8 ####[facility] LABIA [id number] [place], [place] [address]Iifroquwdc (Bld) [Volume fraction]39.4 %Eoqbcp61.0-51.0 [facility] on above:Order Comment: Specimen Type: BLOOD SPECIMENOrdering Facility: [facility] Address:[address] [place], [place] [address]Performed By: #### 96810-3 ####[facility] LABCLIA [id number] [place], [place] [address]Wfvfzcwyzh (Bld) [Mass/Vol]13.5 g/mGYbvzsa47.0-17.0[facility] on above: Order Comment: Specimen Type: BLOOD SPECIMENOrdering Facility: [facility] Address:[address] [place], [place] [address]Performed By: #### 88724- 8 ####[facility] LABCLIA [id number] [place], [place] [address]Edmdqxet granulocytes (Bld) [#/Vol]0.03 10*3/uLNormal <0.10[facility] on above:Order Comment: Specimen Type: BLOOD SPECIMENOrdering Facility: [facility] Address:[address] [place], [place] [address]Performed By: #### 20811-0 ####[facility] LABCLIA [id number] [place], [place] [address]Mvwhueax granulocytes/100 WBC (Bld)0.4 %NormalUniversity Hospitals TriPoint Medical Center on above: Order Comment: Specimen Type: BLOOD SPECIMENOrdering Facility: [facility] Address:[address] [place], [place] [address]Performed By: #### 48226- 8 ####[facility] LABCLIA [id number] [place], [place] [address]Mafzbfkmqoc (Bld) [#/Vol]0.51 10*3/uLLow1.00-4.00 [facility] on above:Order Comment: Specimen Type: BLOOD SPECIMENOrdering Facility: [facility] Address:[address] [place], [place] [address]Performed By: #### 47061-7 ####[facility] LABCLIA [id number] [place], [place] [address]Eqgnwxofxnw/100 WBC (Bld)7.6 %NormalUniversity Hospitals TriPoint Medical Center on above:Order Comment: Specimen Type: BLOOD SPECIMENOrdering Facility: [facility] Address:[address] [place], [place] [address]Performed By: #### 51487-8 ####[facility] LABCLIA [id number] [place], [place] [address]HUI (RBC) [Entitic mass]32.8 onHjhbmq56.0-34.0[facility] on above:Order Comment: Specimen Type: BLOOD SPECIMENOrdering Facility: [facility] Address:[address] [place], [place] [address]Performed By: #### 88570-1 ####[facility] LABCLIA [id number] [place], [place] [address]DLTK (RBC) [Mass/Vol]34.3 g/iQMmevrn11.5-36.0[facility] on above: Order Comment: Specimen Type: BLOOD SPECIMENOrdering Facility: [facility] Address:[address] [place], [place] [address]Performed By: #### 52797- 8 ####[facility] LABCLIA [id number] [place], [place] [address]MYH (RBC) [Entitic vol]95.9 tZFbbcfh71.0-100.0[facility] on above:Order Comment: Specimen Type: BLOOD SPECIMENOrdering Facility: [facility] Address:[address] [place], [place] [address]Performed By: #### 95818-1 ####[facility] LABIA [id number] [place], [place] [address]Tjbroyzni (Bld) [#/Vol]0.74 10*3/uLNormal<0.87[facility] on above:Order Comment: Specimen Type: BLOOD SPECIMENOrdering Facility: [facility] Address:[address] [place], [place] [address]Performed By: #### 80449- 8 ####[facility] LABCLIA [id number] [place], [place] [address]Rnpyatgdr/100 WBC (Bld)11.0 %NormalUniversity Hospitals TriPoint Medical Center on above:Order Comment: Specimen Type: BLOOD SPECIMENOrdering Facility: [facility] Address:[address] [place], [place] [address]Performed By: #### 45912-5 ####[facility] LABCLIA [id number] [place], [place] [address]Zjbafonxtpw (Bld) [#/Vol]5.08 10*3/uLNormal1.45-7.50[facility] on above:Order Comment: Specimen Type: BLOOD SPECIMENOrdering Facility: [facility] Address:[address] [place], [place] [address]Performed By: #### 89091-9 ####[facility] LABCLIA [id number] [place], [place] [address]Fckdxtgxwrt/100 WBC (Bld)75.4 %NormalUniversity Hospitals TriPoint Medical Center on above:Order Comment: Specimen Type: BLOOD SPECIMENOrdering Facility: [facility] Address:[address] [place], [place] [address]Performed By: #### 25043-6 ####[facility] LABCLIA [id number] [place], [place] [address]Wbizpsvdr RBC (Bld) [#/Vol] 10*3/uLNormal<0.01[facility] on above:Order Comment: Specimen Type: BLOOD SPECIMENOrdering Facility: [facility] Address:[address] [place], [place] [address]Performed By: #### 43252-2 ####[facility] LABCLIA [id number] [place], [place] [address]Ambkjbqrw RBC/100 WBC (Bld) [Ratio]0.0 /100 WBCNormal [facility] on above:Order Comment: Specimen Type: BLOOD SPECIMENOrdering Facility: [facility] Address:[address] [place], [place] [address]Performed By: #### 01997-3 ####[facility] LABCLIA [id number] [place], [place] [address]Zldhygfh mean volume (Bld) [Entitic vol]8.5 fLLow9.0-12.7CCincinnati Shriners Hospital on above:Order Comment: Specimen Type: BLOOD SPECIMENOrdering Facility: [facility] Address:[address] [place], [place] [address]Performed By: #### 74731-0 ####[facility] LABCLIA [id number] [place], [place] [address]Hvqfohkff (Bld) [#/Vol]193 10*3/pSAupzdw963-275FerpuccnmUniversity Hospitals TriPoint [facility] on above:Order Comment: Specimen Type: BLOOD SPECIMENOrdering Facility: [facility] Address:[address] [place], [place] [address]Performed By: #### 37434-1 ####[facility] LABCLIA [id number] [place], [place] [address]FER (Bld) [#/Vol]4.11 10*6/uLLow4.20-6.00[facility] on above:Order Comment: Specimen Type: BLOOD SPECIMENOrdering Facility: [facility] Address:[address] [place], [place] [address]Performed By: #### 46188- 8 ####[facility] LABCLIA [id number] [place], [place] [address]GGF (Bld) [#/Vol]6.74 10*3/uLNormal3.70-11.00[facility] Clinic ClevelandComment on above:Order Comment: Specimen Type: BLOOD SPECIMENOrdering Facility: [facility] Address:[address] [place], [place] [address]Qqtulvgzw By: #### 94867-8 ####[facility] LABCLIA [id number] [place], [place] [address]SEDYkc 38-26-4661DXSHPyhumsPxamlgbkv Clinic ClevelandCNOVSPon 36-09-1816KIFJYWWfqvvb [facility] HospitalComprehensive metabolic 2000 panelOrdered By: Chloe Williamson on 97-23-8163Ucltcew [Mass/Vol]4.1 g/dL3.9 - 4.9 g/dLHickory Valley ClinicALP [Catalytic activity/Vol]78 U/L38 - 113 U/LCleveland ClinicALT [Catalytic activity/Vol]8 U/LLow10 - 54 U/LCleveland ClinicAnion gap [Moles/Vol]11 mmol/L8 - 15 mmol/LCleveland ClinicAST [Catalytic activity/Vol]14 U/L14 - 40 U/L [facility] HospitalBilirubin [Mass/Vol]0.4 mg/dL0.2 - 1.3 mg/dLOhiohealth Hardin Memorial Hospital Calcium [Mass/Vol]8.9 mg/dL8.5 - 10.2 mg/dLHickory Valley ClinicChloride [Moles/Vol] 105 mmol/L98 - 107 mmol/LCleveland ClinicCO2 [Moles/Vol]23 mmol/L22 - 30 mmol/L [facility] HospitalCreatinine [Mass/Vol]0.69 mg/dLLow0.73 - 1.22 mg/dLOhiohealth Hardin Memorial HospitalGFR/1.73 sq M.predicted among non-blacks MDRD (S/P/Bld) [Vol rate/Area]102 mL/min/{1.73_m2}- PINFCleveland ClinicComment on above:Estimated Glomerular Filtration Rate (eGFR) is calculated using the 2020 CKD-EPI creatinine equation. This equation utilizes serum creatinine, sex, and age as parameters. The creatinine assay has traceable calibration to isotope dilution-mass spectrometry. Refer to KDIGO guidelines for clinical interpretation. In patients with unstable renal function, e.g. those with acute kidney injury, the eGFRmay not accurately reflect actual GFR.Glucose [Mass/Vol]117 mg/aYRnxp23 - 99 mg/dL [facility] on above:The [place] [employer] (ADA) provides guidance for cutoff values for fasting glucose andrandom glucose. The ADA defines fasting as no caloric intake for at least 8 hours. Fasting plasma gl ucose results between 100 to 125 mg/dL indicate [...] Standards of Medical Care in Diabetes 2016, [place] [employer]. Diabetes Care. 2016.39(Suppl 1). Interpretation and review of laboratory resultsAbnormalCleveland ClinicPotassium [Moles/Vol]3.9 mmol/L3.7 - 5.1 mmol/LCwhite hospital ClinicProtein [Mass/Vol]6.6 g/dL 6.3 - 8.0 g/dLSelect Medical Cleveland Clinic Rehabilitation Hospital, Beachwoododium [Moles/Vol]139 mmol/L136 - 144 mmol/L [facility] HospitalUrea nitrogen [Mass/Vol]13 mg/dL9 - 24 mg/dLCity Hospitalprehensive metabolic 2000 panelon 61-87-9813Ictfwlw [Mass/Vol]4.1 g/dLNormal3.9-4.9CCincinnati [facility] on above:Order Comment: Specimen Type: BLOOD SPECIMENOrdering Facility: [facility] Address:[address] [place], [place] [address]Performed By: #### 47755- 8 ####[facility] LABCLIA [id number] [place], [place] [address]CCK [Catalytic activity/Vol]78 U/YLadyzi55-051DlvogsomuUniversity Hospitals TriPoint [facility] on above:Order Comment: Specimen Type: BLOOD SPECIMENOrdering Facility: [facility] Address:[address] [place], [place] [address]Performed By: #### 46234-1 ####[facility] LABCLIA [id number] [facility], [place] [address]XNW [Catalytic activity/Vol]8 U/[id number] Hospitals [facility] on above:Order Comment: Specimen Type: BLOOD SPECIMENOrdering Facility: [facility] Address:[address] [place], [place] [address]Performed By: #### [id number] ####[facility] LABCLIA [id number] [facility] [place], [place] [address]Jxghl gap [Moles/Vol]11 mmol/LNormal8-15[facility] on above:Order Comment: Specimen Type: BLOOD SPECIMENOrdering Facility: [facility] Address:[address] [place], [place] [address]Performed By: #### 54608-6 ####[facility] LABCLIA [id number] [place], [place] [address]BJQ [Catalytic activity/Vol]14 U/VMqomne72-80YanmwxluqUniversity Hospitals TriPoint [facility] on above:Order Comment: Specimen Type: BLOOD SPECIMENOrdering Facility: [facility] Address:[address] [place], [place] [address]Performed By: #### 21807-4 ####[facility] LABCLIA [id number] [facility] [place] [address] Bilirubin [Mass/Vol]0.4 mg/dLNormal0.2-1.3CCincinnati [facility] on above:Order Comment: Specimen Type: BLOOD SPECIMENOrdering Facility: [facility] Address:[address] [place], [place] [address]Performed By: #### 83531-6 ####[facility] LABCLIA [id number] [place], [place] [address]Ijzogiz [Mass/Vol]8.9 mg/dLNormal8.5-10.2CCincinnati [facility]rin[facility] on above:Order Comment: Specimen Type: BLOOD SPECIMENOrdering Facility: [facility] Address:[address] [place], [place] [address]Performed By: #### 03164-1 ####[facility] LABCLIA [id number] [facility] [place], [place] [address]Quscsrvv [Moles/Vol]105 mmol/JQgqzhs82-099ZlcatxgakUniversity Hospitals TriPoint Medical Center on above: Order Comment: Specimen Type: BLOOD SPECIMENOrdering Facility: [facility] Address:[address] [place], [place] [address]Performed By: #### 04284- 8 ####[facility] LABCLIA [id number] [facility] [place], [place] [address]FC2 [Moles/Vol]23 mmol/IXxdinw79-21LvrhsxvqeUniversity Hospitals [facility] on above:Order Comment: Specimen Type: BLOOD SPECIMENOrdering Facility: [facility] Address:[address] [place], [place] [address]Performed By: #### 21555-1 ####[facility] LABCLIA [id number] [place], [place] [address]Nrylrisyok [Mass/Vol]0.69 mg/dL Low0.73-1.22[facility] on above:Order Comment: Specimen Type: BLOOD SPECIMENOrdering Facility: [facility] Address:[address] [place], [place] [address]Performed By: #### 29645-6 ####[facility] LABCLIA [id number] [place] [address] Creatinine and Glomerular filtration rate.predicted panel (S/P/Bld)102 mL/min/1.73m???Normal>=60[facility] on above:Order Comment: Specimen Type: BLOOD SPECIMENOrdering Facility: [facility] Address:[address] [place], [place] [address]Result Comment: Estimated Glomerular Filtration Rate (eGFR) is calculated using the 2020 CKD-EPI cre atinine equation. This equation utilizes serum creatinine, sex, and age as parameters. The creatinine assay has traceable calibration to isotope dilution- mass spectrometry. Refer to KDIGO guidelines for clinical interpretation. In patients with unstable renal function, e.g. those with acute kidney injury, the eGFR may not accurately reflect actual GFR.Performed By: #### 90077-5 ####[facility] LABCLIA [id number] [place], [place] [address]Wjsxmvc [Mass/Vol]117 mg/mWVpia19-89DrerwvpweUniversity Hospitals TriPoint Medical Center on above:Order Comment: Specimen Type: BLOOD SPECIMENOrdering Facility: [facility] Address:[address] [place] [address]Cuchxb Comment: The [place] Diabetes Association (ADA) provides guidance for cutoff values for fasting glucose and random glucose. The ADA defines fasting as no caloric intake for at least 8 hours. Fasting plasma glucose results between 100 to 125 mg/dL indicate increased risk for diabetes (prediab etes).Fasting plasma glucose results greater than or equal to 126 mg/dL meet the criteria for diagnosis of diabetes. In the absence of unequivocal hyperglycemia, results should be confirmed by repeattesting. In a patient with classic symptoms of hyperglycemia or hyperglycemic crisis, random plasmaglucose results greater than or equal to 200 mg/dL meet the criteria for diagnosis of diabetes.Reference: Standards of Medical Care in Diabetes 2016, [place] Diabetes Association. Diabetes Care. 2016.39(Suppl 1).Performed By: #### 42710-1 ####[facility] LABCLIA [id number] [place], [place] [address]Imbuesasm [Moles/Vol]3.9 mmol/LNormal3.7-5.1CCincinnati Shriners Hospital on above:Order Comment: Specimen Type: BLOOD SPECIMENOrdering Facility: [facility] Address:[address] [place], [place] [address]Zkhitoxip By: #### 19500-3 ####[facility] LABIA [id number] [place], [place] [address]Xzjbzao [Mass/Vol]6.6 g/dLNormal6.3-8.0[facility] on above:Order Comment: Specimen Type: BLOOD SPECIMENOrdering Facility: [facility] Address:[address] [place], [place] [address]Performed By: #### 40795- 8 ####[facility] LABCLIA [id number] [place], [place] [address]Baffwf [Moles/Vol]139 mmol/QKwdopq380-244WijmzsbstUniversity Hospitals TriPoint Medical Center on above:Order Comment: Specimen Type: BLOOD SPECIMENOrdering Facility: [facility] Address:[address] [place], [place] [address]Performed By: #### 36803-5 ####[facility] LABCLIA [id number] [place], [place] [address]Auep nitrogen [Mass/Vol]13 mg/dLNormal9-24[facility] on above:Order Comment: Specimen Type: BLOOD SPECIMENOrdering Facility: [facility] Address:[address] [place], [place] [address]Performed By: #### 43063-8 ####[facility] LABCLIA [id number] [place], [place] [address]QDTUhq 61-13-3267ZAJVRpmcfsXuwtgjbmk [facility] [place] CNCNPATEDon 85-53-7626LKIVDJZDISydinhDdhjxnbzk Clinic ClevelandCNOVon 12-15-2024 CNOVNormalCSelect Medical Specialty Hospital - [facility]-FairhillCNPNon 46-87-7948QUVHWbmevuAaojcopri Clinic ClevelandCNNURSEon 62-72-8890EAFWXKDFervltYeikwdogb Clinic ClevelandX-ray report Ordered By: Lam Beaver on 09-29-8050Mhjks reportFORT [facility] Main [address] [address] XRay Report Signed Patient: Bentley Gonzalez MR#: [id number] : 1960 Acct:[id number] Age/Sex: 64 / M ADM Date: 5 Loc: ME Room: Type: [facility] Attending Dr: Stuart Mix MD Copies to: Stuart Mix MD~ Ordering Provider: Stuart Mix MD Date of Service: 12/08/24 XR/XR chest 1V portable: port placement SINGLE VIEW CHEST CLINICAL HISTORY: Port insertion COMPARISON: None FINDINGS: Right-sided port tip in the SVC. Heart is normal in size. 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 No consolidation pneumothorax pleural effusion or free air. XR/XR chest 1V portable IMPRESSION: RIGHT-SIDED PORT TIP IN THE SVC. NO PNEUMOTHORAX. Impression dictated by: Fabricio Mejia Jr.OSaira12/08/2024 9:53 AM Dictation Location: RADIO-PC-22 Transcribed By: MARISELA 12/08/2453 Dictated By: Lam Beaver Jr, DO 12/08/24950 Signed By: 12/08/24 0953 [facility] 1V portableon 63-55-3084OF chest 1V portableFORT HAMILTON [place] [address] XRay Report Signed Patient: Bentley Gonzalez MR#: [id number] : 1960 Acct:[id number] Age/Sex: 64 / M ADM Date: 12/08/24 Loc: ME Room: Type: [facility] Attending Dr: Stuart Mix MD Copies to: Stuart Mix MD Ordering Provider: Stuart Mix MD Date of Service: 12/08/24 XR/XR chest 1V portable: port placement SINGLE VIEW CHEST CLINICAL HISTORY: Port insertion COMPARISON: None FINDINGS: Right-sided port tip in the SVC. Heart is normal in size. 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 No consolidation pneumothorax pleural effusion or free air. XR/XR chest 1V portable IMPRESSION: RIGHT-SIDED PORT TIP IN THE SVC. NO PNEUMOTHORAX. Impression dictated by: Bari Mejia Jr..OSaira12/08/2024 9:53 AM Dictation Location: RADIO-PC-22 Transcribed By: MARISELA 12/08/2453 Dictated By: Lam Beaver Jr DO 12/08/24950 Signed By: 12/08/24 0953[facility] W Auto Differential panel (Bld)on 98-89-5444Okfdlqovc (Bld) [#/Vol]10*3/uLNormal<0.11CCincinnati [facility]rin[facility] on above:Order Comment: Specimen Type: BLOOD SPECIMENOrdering Facility: [facility] Address:[address] [place], [place] [address]Performed By: #### 30319-7 ####[facility] LABCLIA [id number] [place], [place] [address]Yhdhaqubl/100 WBC (Bld)0.3 % NormalUniversity Hospitals TriPoint [facility] Center on above:Order Comment: Specimen Type: BLOOD SPECIMENOrdering Facility: [facility] Address:[address] [place], [place] [address]Performed By: #### 00291-5 ####[facility] LABCLIA [id number] [place] [address] Differential cell count method Nom (Bld)AutoNormalCSelect Medical Specialty Hospital - [place]-[facility]hill Comment on above:Order Comment: Specimen Type: BLOOD SPECIMENOrdering Facility: [facility] Address:[address] [place] [address] Performed By: #### 88075-9 ####[facility] LABCLIA [id number] [place], [place] [address]Ncqxuvjewsh (Bld) [#/Vol]0.49 10*3/uLHigh<0.46[facility] on above:Order Comment: Specimen Type: BLOOD SPECIMENOrdering Facility: [facility] Address:[address] [place], [place] [address]Performed By: #### 52924-5 ####[facility] LABCLIA [id number] [place], [place] [address]Oifsebliomg/100 WBC (Bld)8.4 %NormalUniversity Hospitals TriPoint Medical Center on above:Order Comment: Specimen Type: BLOOD SPECIMENOrdering Facility: [facility] Address:[address] [place], [place] [address]Performed By: #### 48128-6 ####[facility] LABCLIA [id number] [place], [place] [address]Pawbqmerqdw distribution width (RBC) [Ratio]14.8 %Peerce87.5-15.0[facility] on above: Order Comment: Specimen Type: BLOOD SPECIMENOrdering Facility: [facility] Address:[address] [place], [place] [address]Performed By: #### 16747- 8 ####[facility] LABCLIA [id number] [place], [place] [address]Nipbfmerks (Bld) [Volume fraction]40.3 %Qhcsim27.0-51.0 [facility] on above:Order Comment: Specimen Type: BLOOD SPECIMENOrdering Facility: [facility] Address:[address] [place], [place] [address]Performed By: #### 43252-6 ####[facility] LABIA [id number] [place], [place] [address]Jvvrzfhkay (Bld) [Mass/Vol]13.8 g/oFHchhwy17.0-17.0[facility] on above: Order Comment: Specimen Type: BLOOD SPECIMENOrdering Facility: [facility] Address:[address] [place], [place] [address]Performed By: #### 44333- 8 ####[facility] LABIA [id number] [place], [place] [address]Xximdpmb granulocytes (Bld) [#/Vol]0.03 10*3/uLNormal <0.10[facility] on above:Order Comment: Specimen Type: BLOOD SPECIMENOrdering Facility: [facility] Address:[address] [place], [place] [address]Performed By: #### 39840-0 ####[facility] LABIA [id number] [place], [place] [address]Yaaxxtnu granulocytes/100 WBC (Bld)0.5 %NormalUniversity Hospitals TriPoint [facility] Center on above: Order Comment: Specimen Type: BLOOD SPECIMENOrdering Facility: [facility] Address:[address] [place], [place] [address]Performed By: #### 50548- 8 ####[facility] LABCLIA [id number] [place], [place] [address]Iafqborypmx (Bld) [#/Vol]0.48 10*3/uLLow1.00-4.00 [facility] on above:Order Comment: Specimen Type: BLOOD SPECIMENOrdering Facility: [facility] Address:[address] [place], [place] [address]Performed By: #### 68414-0 ####[facility] LABCLIA [id number] [place], [place] [address]Svpbmzumeuq/100 WBC (Bld)8.2 %NormalUniversity Hospitals TriPoint [facility] Center on above:Order Comment: Specimen Type: BLOOD SPECIMENOrdering Facility: [facility] Address:[address] [place], [place] [address]Performed By: #### 21390-2 ####[facility] LABCLIA [id number] [place], [place] [address]QCI (RBC) [Entitic mass]32.3 irUhpwap52.0-34.0[facility] on above:Order Comment: Specimen Type: BLOOD SPECIMENOrdering Facility: [facility] Address:[address] [place], [place] [address]Performed By: #### 37735-3 ####[facility] LABIA [id number] [place], [place] [address]OFRZ (RBC) [Mass/Vol]34.2 g/fYXpbnjn83.5-36.0[facility] on above: Order Comment: Specimen Type: BLOOD SPECIMENOrdering Facility: [facility] Address:[address] [place], [place] [address]Performed By: #### 36697- 8 ####[facility] LABCLIA [id number] [place], [place] [address]FFI (RBC) [Entitic vol]94.4 aAXddcxp95.0-100.0[facility] on above:Order Comment: Specimen Type: BLOOD SPECIMENOrdering Facility: [facility] Address:[address] [place], [place] [address]Performed By: #### 87682-9 ####[facility] LABCLIA [id number] [place], [place] [address]Hytgmdeod (Bld) [#/Vol]0.69 10*3/uLNormal<0.87[facility] on above:Order Comment: Specimen Type: BLOOD SPECIMENOrdering Facility: [facility] Address:[address] [place], [place] [address]Performed By: #### 73719- 8 ####[facility] LABCLIA [id number] [place], [place] [address]Jxlzxqjgt/100 WBC (Bld)11.8 %NormalUniversity Hospitals TriPoint [facility] Center on above:Order Comment: Specimen Type: BLOOD SPECIMENOrdering Facility: [facility] Address:[address] [place], [place] [address]Performed By: #### 70150-1 ####[facility] LABCLIA [id number] [place], [place] [address]Xvyqngvukrm (Bld) [#/Vol]4.12 10*3/uLNormal1.45-7.50[facility] on above:Order Comment: Specimen Type: BLOOD SPECIMENOrdering Facility: [facility] Address:[address] [place], [place] [address]Performed By: #### 79023-3 ####[facility] LABCLIA [id number] [place], [place] [address]Tkqcwjxnwck/100 WBC (Bld)70.8 %NormalUniversity Hospitals TriPoint Medical Center on above:Order Comment: Specimen Type: BLOOD SPECIMENOrdering Facility: [facility] Address:[address] [place], [place] [address]Performed By: #### 84231-1 ####[facility] LABCLIA [id number] [place], [place] [address]Ymcxdnggm RBC (Bld) [#/Vol] 10*3/uLNormal<0.01[facility] on above:Order Comment: Specimen Type: BLOOD SPECIMENOrdering Facility: [facility] Address:[address] [place], [place] [address]Performed By: #### 07988-1 ####[facility] LABCLIA [id number] [place], [place] [address]Nqgdulctu RBC/100 WBC (Bld) [Ratio]0.0 /100 WBCNormal [facility] on above:Order Comment: Specimen Type: BLOOD SPECIMENOrdering Facility: [facility] Address:[address] [place], [place] [address]Performed By: #### 32882-6 ####[facility] LABCLIA [id number] [place], [place] [address]Cppjljba mean volume (Bld) [Entitic vol]8.3 fLLow9.0-12.7CCincinnati [facility]rin[facility] on above:Order Comment: Specimen Type: BLOOD SPECIMENOrdering Facility: [facility] Address:[address] [place], [place] [address]Performed By: #### 91124-7 ####[facility] LABCLIA [id number] [place], [place] [address]Yhnivykpt (Bld) [#/Vol]146 10*3/oVEdk328-485FgneestpsUniversity Hospitals TriPoint [facility] Center on above:Order Comment: Specimen Type: BLOOD SPECIMENOrdering Facility: [facility] Address:[address] [place], [place] [address]Performed By: #### 25386-9 ####[facility] LABCLIA [id number] [place], [place] [address]NSR (Bld) [#/Vol]4.27 10*6/uLNormal4.20-6.00[facility] on above: Order Comment: Specimen Type: BLOOD SPECIMENOrdering Facility: [facility] Address:[address] [place], [place] [address]Performed By: #### 37220- 8 ####[facility] LABCLIA [id number] [place], [place] [address]MII (Bld) [#/Vol]5.83 10*3/uLNormal3.70-11.00[facility] on above:Order Comment: Specimen Type: BLOOD SPECIMENOrdering Facility: [facility] Address:[address] [place], [place] [address]Performed By: #### 30423-3 ####[facility] LABIA [id number] [place], [place] [address]EHU CBC W AUTO DIFF BLDon 38-83-4095Onableacg/100 WBC (Bld)0.3 %[facility] HospitalCCF BASOPHILS # BLD AUTO<0.03NISumner [facility] Medical Center DIFFERENTIAL METHOD BLDAutoNOMFitzgibbon Hospital CCF EOSINOPHIL # BLD AUTO0.49HighNISumner Regional Medical Center LYMPHOCYTES # BLD AUTO 0.48LowNOUniversity Health Lakewood Medical CenterF MONOCYTES # BLD AUTO0.69NIHendersonville Medical CenterCCF NEUTROPHILS # BLD AUTO4.12[facility] NRBC # BLD AUTO<0.01NISumner Regional Medical Center NRBC/100 WBC BLD-RTO0/100 WBCMadison Medical CenterF PLATELET # BLD WIHS574KikVKYKMadison Medical CenterF PMV BLD AUTO8.3 fLLow9.0 - 12.7 fLNOSaint Mary's Health Center CCF WBC # BLD AUTO5.83NOSaint Mary's Health CenterEosinophils/100 WBC (Bld)8.4 %NOMS HealthcareErythrocyte distribution width (RBC) [Ratio]14.8 %11.5 - 15.0 %NOMS HealthcareHematocrit (Bld) [Volume fraction]40.3 %39.0 - 51.0 %[facility] Hemoglobin (Bld) [Mass/Vol]13.8 g/dL13.0 - 17.0 g/dLNortheast Regional Medical Center GRANULOCYTES # BLD AUTO0.03NINFNortheast Regional Medical Center GRANULOCYTES/LEUK NFR BLD AUTO 0.5 %[facility] Memorial HospitalInterpretation and review of laboratory resultsAbnormPhysicians Care Surgical HospitalLymphocytes/100 WBC (Bld)8.2 %[facility] HospitalH (RBC) [Entitic mass] 32.3 pg26.0 - 34.0 pgSalem Memorial District HospitalHC (RBC) [Mass/Vol]34.2 g/dL30.5 - 36.0 g/dLSalem Memorial District HospitalV (RBC) [Entitic vol]94.4 fL80.0 - 100.0 fLEllett Memorial Hospital Monocytes/100 WBC (Bld)11.8 %[facility] Memorial HospitalNeutrophils/100 WBC (Bld)70.8 %[facility] Memorial HospitalRBC (Bld) [#/Vol]4.27 10*6/uL4.20 - 6.00 m/uLEllett Memorial HospitalSpecimen Type: BLOOD SPECIMEN [facility] Address: [address] [place] [address] Original Ordering Provider: HILARY ROMO HealthcareCNOVon 14-19-3274EYKCAfirsfEsvmhaytl Clinic ClevelandCNOVSPon 21-65-4218IMSSWHNpsgeq [facility]erry HospitalComprehensive metabolic 2000 panelon 81-14-1770Ipeeoms [Mass/Vol]4.1 g/dLNormal3.9-4.9CCinc[facility] on above:Order Comment: Specimen Type: BLOOD SPECIMENOrdering Facility: [facility] Address:[address] [place], [place] [address]Performed By: #### 00116- 8 ####[facility] LABCLIA [id number] [place] [address] [place] AMERICAALP [Catalytic activity/Vol]76 U/VTiyvty72-015Xdrbvnolk Clinic ClevelandComment on above:Order Comment: Specimen Type: BLOOD SPECIMENOrdering Facility: [facility] Address:[address] [place], [place] [address]Result Comment: Corrected result: Previously reported as 73 U/L on 12/06/2024 at 9:48 AM EST.Performed By: #### 68938-8 ####[facility] LABCLIA [id number] [address] [address] [place] AMERICAALT [Catalytic activity/Vol]12 U/KFwdjep95-94TueyvxyoyUniversity Hospitals TriPoint [facility] on above:Order Comment: Specimen Type: BLOOD SPECIMENOrdering Facility: [facility] Address:[address] [place], [place] [address]Result Comment: Corrected result: Previously reported as 10 U/L on 12/06/2024 at 9:48 AM EST.Performed By: #### 95849-0 ####[facility] LABIA [id number] [address] [address] [place] AMERICAAnion gap [Moles/Vol] 13 mmol/LNormal8-15[facility] on above:Order Comment: Specimen Type: BLOOD SPECIMENOrdering Facility: [facility] Address:[address] [place], [place] [address]Performed By: #### 11297-5 ####[facility] LABIA [id number] [address] [address] [place] AMERICAAST [Catalytic activity/Vol]17 U/BSfzgzr65-61CseicgzimUniversity Hospitals TriPoint Medical Center on above:Order Comment: Specimen Type: BLOOD SPECIMENOrdering Facility: [facility] Address:[address] [place], [place] [address]Result Comment: Corrected result: Previously reported as 12 U/L on 12/06/2024 at 9:48 AM EST.Performed By: #### 19401-5 ####[facility] LABIA [id number] [address] [address] [place] OF AMERICABilirubin [Mass/Vol]0.4 mg/dL Normal0.2-1.3[facility] ClevelandComment on above:Order Comment: Specimen Type: BLOOD SPECIMENOrdering Facility: [facility] Address:[address] [place], [place] [address]Performed By: #### 14811-8 ####[facility] LABCLIA [id number] [address] [address] [place] AMERICACalcium [Mass/Vol]9.1 mg/dLNormal8.5-10.2CCincinnati [facility]rin[facility] Hospital on above:Order Comment: Specimen Type: BLOOD SPECIMENOrdering Facility: [facility] Address:[address] [place], [place] [address]Result Comment: Corrected result: Previously reported as 9.2 mg/dL on 12/06/2024 at 9:48 AM EST.Performed By: #### 41794-6 ####[facility] LABCLIA [id number] [place] [id number] [place] AMERICAChloride [Moles/Vol]102 mmol/JFstqyf51-384YwhavxdfhUniversity Hospitals TriPoint Medical Center on above:Order Comment: Specimen Type: BLOOD SPECIMENOrdering Facility: [facility] Address:[address] [place], [place] [address]Performed By: #### 03008-3 ####[facility] LABCLIA [id number] [address] [address] [place] OF AMERICACO2 [Moles/Vol]23 mmol/WMryjip45-77TmrkkkzprUniversity Hospitals [facility] Center on above:Order Comment: Specimen Type: BLOOD SPECIMENOrdering Facility: [facility] Address:[address] [place] [address]Bwsumm Comment: Corrected result: Previously reported as 26 mmol/L on 12/06/2024 at 9:48 AM EST. Performed By: #### 29020-2 ####[facility] LABCLIA [id number] [address] [address] [place] Creatinine [Mass/Vol]0.76 mg/dLNormal0.73-1.22[facility] on above:Order Comment: Specimen Type: BLOOD SPECIMENOrdering Facility: [facility] Address:[address] [place] [address]Imdemz Comment: Corrected result: Previously reported as 0.78 mg/dL on 12/06/2024 at 9:48 AM EST.Performed By: #### 96878-4 ####[facility] LABIA [id number] [address] [address] [place] Creatinine and Glomerular filtration rate.predicted panel (S/P/Bld)99 mL/min/1.73m???Normal>=60[facility] on above:Order Comment: Specimen Type: BLOOD SPECIMENOrdering Facility: [facility] Address:[address] [place] [id number] Comment: Estimated Glomerular Filtration Rate (eGFR) is calculated using the 2020 CKD-EPI cre atinine equation. This equation utilizes serum creatinine, sex, and age as parameters. The creatinine assay has traceable calibration to isotope dilution- mass spectrometry. Refer to KDIGO guidelines for clinical interpretation. In patients with unstable renal function, e.g. those with acute kidney injury, the eGFR may not accurately reflect actual GFR.Corrected result: Previously reported as 98 mL/min/1.73m??? on 12/06/2024 at 9:48 AM EST.Performed By: #### 06798-7 ####[facility] LABIA [id number] [address] [address] [place] OF AMERICAGlucose [Mass/Vol]106 mg/dLHigh 74-99[facility] on above:Order Comment: Specimen Type: BLOOD SPECIMENOrdering Facility: [facility] Address:[address] [place] [address]35[address]Dcyusv Comment: The [place] Diabetes Association (ADA) provides guidance for cutoff values for fasting glucose and random glucose. The ADA defines fasting as no caloric intake for at least 8 hours. Fasting plasma glucose results between 100 to 125 mg/dL indicate increased risk for diabetes (prediabetes).Fasting plasma glucose results greater than or equal to 126 mg/dL meet the criteria for diagnosis of diabetes. In the absence of unequivocal hyperglycemia, results should be confirmed by repeattesting. In a patient with classic symptoms of hyperglycemia or hyperglycemic crisis, random plasmaglucose results greater than or equal to 200 mg/dL meet the criteria for diagnosis of diabetes.Reference: Standards of Medical Care in Diabetes 2016, [place] Diabetes [employer]. Diabetes Care. 2016.39(Suppl 1).Corrected result: Previously reported as 105 mg/dL on 12/06/2024 at 9:48 AM EST.Performed By: #### 79245-9 ####[facility] [id number] [place] [address] [place] AMERICAPotassium [Moles/Vol] 4.1 mmol/LNormal3.7-5.1CCincinnati [facility]rin[facility] on above:Order Comment: Specimen Type: BLOOD SPECIMENOrdering Facility: [facility] Address:[address] [place], [place] [address]Performed By: #### 67120-0 ####[facility] [id number] [place] [address] [place] AMERICAProtein [Mass/Vol]6.8 g/dLNormal 6.3-8.0[facility] on above:Order Comment: Specimen Type: BLOOD SPECIMENOrdering Facility: [facility] Address:[address] [place], [place] [address]Result Comment: Corrected result: Previously reported as 6.4 g/dL on 12/06/2024 at 9:48 AM EST.Performed By: #### 83093-4 ####[facility] [id number] [place] [address] [place] AMERICASodium [Moles/Vol]138 mmol/PZmrqji336-048RmfljvlrbUniversity Hospitals [facility] on above:Order Comment: Specimen Type: BLOOD SPECIMENOrdering Facility: [facility] Address:[address] [place], [place] [address]Performed By: #### 45206-0 ####[facility] [id number] [place] [id number] [place] AMERICAUrea nitrogen [Mass/Vol]10 mg/dLNormal06-29[facility] Comment on above:Order Comment: Specimen Type: BLOOD SPECIMENOrdering Facility: [facility] Address:[address] [place] [address] Performed By: #### 47810-0 ####[facility] LABCLIA [id number] [place] [address] [place] CNCNPATEDon 06-32-8716EPZHWOZFUQfnwqfLetsrtkmi Clinic ClevelandCNOVon 11-29-2024 CNOVNormalCwayne healthcare main campusand [facility] Alexander CampusCNPNon 15-61-4706TYNCDevuuyDetkolhdu Clinic ClevelandCBC W Auto Differential panel (Bld)on 34-98-4634Mhzkniizf (Bld) [#/Vol] 10*3/uLNormal<0.11CSelect Medical Specialty Hospital - Cleveland-FairhillComment on above:Order Comment: Specimen Type: BLOOD SPECIMENOrdering Facility: [facility] Address:[address] [place], [place] [address]Performed By: #### 44718-0 ####[facility] LABCLIA [id number] [place], [place] [address]Njsnwajfm/100 WBC (Bld)0.2 %NormalZanesville City Hospitalment on above:Order Comment: Specimen Type: BLOOD SPECIMENOrdering Facility: [facility] Address:[address] [place], [place] [address]Performed By: #### 08401-4 ####[facility] LABCLIA [id number] [place], [place] [address]Rsjjkmyigxmj cell count method Nom (Bld)AutoNormalCCincinnati Shriners Hospital on above:Order Comment: Specimen Type: BLOOD SPECIMENOrdering Facility: [facility] Address:[address] [place], [place] [address]Performed By: #### 83282-8 ####[facility] LABCLIA [id number] [place], [place] [address]Vckuasmshke (Bld) [#/Vol]0.21 10*3/uLNormal<0.46[facility] on above:Order Comment: Specimen Type: BLOOD SPECIMENOrdering Facility: [facility] Address:[address] [place], [place] [address]Performed By: #### 85987-3 ####[facility] LABCLIA [id number] [place], [place] [address]Zwkooljghsy/100 WBC (Bld)4.1 %NormalUniversity Hospitals TriPoint [facility] Center on above:Order Comment: Specimen Type: BLOOD SPECIMENOrdering Facility: [facility] Address:[address] [place], [place] [address]Performed By: #### 32638-4 ####[facility] LABCLIA [id number] [place], [place] [address]Sscfbbsuxmx distribution width (RBC) [Ratio]13.3 %Normal 11.5-15.0[facility] on above:Order Comment: Specimen Type: BLOOD SPECIMENOrdering Facility: [facility] Address:[address] [place], [place] [address]Performed By: #### 29693-9 ####[facility] LABCLIA [id number] [place] [address] Hematocrit (Bld) [Volume fraction]43.0 %Wpxduz66.0-51.0[facility] on above:Order Comment: Specimen Type: BLOOD SPECIMENOrdering Facility: [facility] Address:[address] [place], [place] [address]Performed By: #### 71721-7 ####[facility] LABIA [id number] [place], [place] [address]Jvsjaqnhzj (Bld) [Mass/Vol]14.4 g/xOJgugps27.0-17.0[facility] on above:Order Comment: Specimen Type: BLOOD SPECIMENOrdering Facility: [facility] Address:[address] [place], [place] [address]Performed By: #### 96828-9 ####[facility] LABCLIA [id number] [place], [place] [address]Sgljjqic granulocytes (Bld) [#/Vol]0.03 10*3/uLNormal <0.10[facility] on above:Order Comment: Specimen Type: BLOOD SPECIMENOrdering Facility: [facility] Address:[address] [place], [place] [address]Performed By: #### 49576-7 ####[facility] LABCLIA [id number] [place], [place] [address]Jzltvlra granulocytes/100 WBC (Bld)0.6 %NormalUniversity Hospitals TriPoint [facility] Center on above: Order Comment: Specimen Type: BLOOD SPECIMENOrdering Facility: [facility] Address:[address] [place], [place] [address]Performed By: #### 96080- 8 ####[facility] LABCLIA [id number] [place], [place] [address]Uoauphsmefg (Bld) [#/Vol]0.74 10*3/uLLow1.00-4.00 [facility] on above:Order Comment: Specimen Type: BLOOD SPECIMENOrdering Facility: [facility] Address:[address] [place], [place] [address]Performed By: #### 68370-7 ####[facility] LABCLIA [id number] [place], [place] [address]Jckbxnbvjst/100 WBC (Bld)14.6 %NormalUniversity Hospitals TriPoint Medical Center on above:Order Comment: Specimen Type: BLOOD SPECIMENOrdering Facility: [facility] Address:[address] [place], [place] [address]Performed By: #### 28715-3 ####[facility] LABCLIA [id number] [place], [place] [address]LIW (RBC) [Entitic mass]31.6 naFkzfzj51.0-34.0[facility] on above:Order Comment: Specimen Type: BLOOD SPECIMENOrdering Facility: [facility] Address:[address] [place], [place] [address]Performed By: #### 75939-2 ####[facility] LABCLIA [id number] [place], [place] [address]YGFT (RBC) [Mass/Vol]33.5 g/cKEmnaux39.5-36.0[facility] on above: Order Comment: Specimen Type: BLOOD SPECIMENOrdering Facility: [facility] Address:[address] [place], [place] [address]Performed By: #### 79060- 8 ####[facility] LABCLIA [id number] [place], [place] [address]UOW (RBC) [Entitic vol]94.5 cIImxkgb76.0-100.0[facility] on above:Order Comment: Specimen Type: BLOOD SPECIMENOrdering Facility: [facility] Address:[address] [place], [place] [address]Performed By: #### 63389-3 ####[facility] LABCLIA [id number] [place], [place] [address]Auyeorbxj (Bld) [#/Vol]0.51 10*3/uLNormal<0.87[facility] on above:Order Comment: Specimen Type: BLOOD SPECIMENOrdering Facility: [facility] Address:[address] [place], [place] [address]Performed By: #### 83758- 8 ####[facility] LABCLIA [id number] [place], [place] [address]Mxiyllmin/100 WBC (Bld)10.0 %NormalUniversity Hospitals TriPoint [facility] Center on above:Order Comment: Specimen Type: BLOOD SPECIMENOrdering Facility: [facility] Address:[address] [place], [place] [address]Performed By: #### 32766-9 ####[facility] LABCLIA [id number] [place], [place] [address]Usarqfkjpov (Bld) [#/Vol]3.58 10*3/uLNormal1.45-7.50[facility] on above:Order Comment: Specimen Type: BLOOD SPECIMENOrdering Facility: [facility] Address:[address] [place], [place] [address]Performed By: #### 53776-6 ####[facility] LABCLIA [id number] [place], [place] [address]Wvnpyfjtwop/100 WBC (Bld)70.5 %NormalUniversity Hospitals TriPoint Medical Center on above:Order Comment: Specimen Type: BLOOD SPECIMENOrdering Facility: [facility] Address:[address] [place], [place] [address]Performed By: #### 99643-0 ####[facility] LABIA [id number] [place], [place] [address]Wvxtapshh RBC (Bld) [#/Vol] 10*3/uLNormal<0.01[facility] on above:Order Comment: Specimen Type: BLOOD SPECIMENOrdering Facility: [facility] Address:[address] [place], [place] [address]Performed By: #### 74808-6 ####[facility] LABIA [id number] [place], [place] [address]Allsqfrxm RBC/100 WBC (Bld) [Ratio]0.0 /100 WBCNormal [facility] on above:Order Comment: Specimen Type: BLOOD SPECIMENOrdering Facility: [facility] Address:[address] [place], [place] [address]Performed By: #### 82058-8 ####[facility] LABIA [id number] [place], [place] [address]Plukuzmt mean volume (Bld) [Entitic vol]8.6 fLLow9.0-12.7CCincinnati [facility]rin[facility] on above:Order Comment: Specimen Type: BLOOD SPECIMENOrdering Facility: [facility] Address:[address] [place], [place] [address]Performed By: #### 67401-3 ####[facility] LABCLIA [id number] [place], [place] [address]Wzvtedfpm (Bld) [#/Vol]157 10*3/qCKjxpmu337-454NghyykbhmUniversity Hospitals TriPoint [facility] Center on above:Order Comment: Specimen Type: BLOOD SPECIMENOrdering Facility: [facility] Address:[address] [place], [place] [address]Performed By: #### 49793-0 ####[facility] LABIA [id number] [place], [place] [address]QYE (Bld) [#/Vol]4.55 10*6/uLNormal4.20-6.00[facility] on above: Order Comment: Specimen Type: BLOOD SPECIMENOrdering Facility: [facility] Address:[address] [place], [place] [address]Performed By: #### 26951- 8 ####[facility] LABIA [id number] [place], [place] [address]FIC (Bld) [#/Vol]5.08 10*3/uLNormal3.70-11.00[facility] on above:Order Comment: Specimen Type: BLOOD SPECIMENOrdering Facility: [facility] Address:[address] [place], [place] [address]Performed By: #### 84913-0 ####[facility] LABIA [id number] [place], [place] [address]UJH CBC W AUTO DIFF BLDon 97-57-3544Gayaldrdh/100 WBC (Bld)0.2 %NOMS HealthcareCCF BASOPHILS # BLD AUTO<0.03NINFNOMS HealthcareCCF DIFFERENTIAL METHOD BLDAutoNOMS Healthcare CCF EOSINOPHIL # BLD AUTO0.21NISumner [facility] LYMPHOCYTES # BLD AUTO0.74 LowCox [facility] MONOCYTES # BLD AUTO0.51NISumner [facility] Medical Center NEUTROPHILS # BLD AUTO3.58[facility] NRBC # BLD AUTO<0.01NINFCox [place]ett NRBC/100 WBC BLD-RTO0/100 WBCCox Monett PLATELET # BLD IUAP970ZVWGCox Monett PMV BLD AUTO8.6 fLLow9.0 - 12.7 fLCox Monett WBC # BLD AUTO5.08[facility] HospitalEosinophils/100 WBC (Bld)4.1 %[facility] Memorial HospitalErythrocyte distribution width (RBC) [Ratio]13.3 %11.5 - 15.0 %[facility] Memorial HospitalHematocrit (Bld) [Volume fraction]43 %39.0 - 51.0 %[facility] Memorial HospitalHemoglobin (Bld) [Mass/Vol]14.4 g/dL13.0 - 17.0 g/dLNortheast Regional Medical Center GRANULOCYTES # BLD AUTO 0.03NIVanderbilt [facility] Hospital GRANULOCYTES/LEUK NFR BLD AUTO0.6 %[facility] Interpretation and review of laboratory resultsAbnormPhysicians Care Surgical Hospital Lymphocytes/100 WBC (Bld)14.6 %[facility] HospitalH (RBC) [Entitic mass]31.6 pg 26.0 - 34.0 pgEllett Memorial HospitalMCHC (RBC) [Mass/Vol]33.5 g/dL30.5 - 36.0 g/dLSalem Memorial District HospitalV (RBC) [Entitic vol]94.5 fL80.0 - 100.0 fLEllett Memorial Hospital Monocytes/100 WBC (Bld)10 %[facility] Memorial HospitalNeutrophils/100 WBC (Bld)70.5 %[facility] Memorial HospitalRBC (Bld) [#/Vol]4.55 10*6/uL4.20 - 6.00 m/uLEllett Memorial HospitalSpecimen Type: BLOOD SPECIMEN [facility] Address: [address] [place] [address] Original Ordering Provider: HILARY ROMO [facility] Medical CenterCNOVon 44-59-1909QTWNPhueezZaczpbhgp Clinic ClevelandCNOVSPon 27-30-0012LZQENVJgynxi [facility] HospitalComprehensive metabolic 2000 panelon 63-14-7264Wwilxto [Mass/Vol]4.5 g/dLNormal3.9-4.9CCincinnati [facility] on above:Order Comment: Specimen Type: BLOOD SPECIMENOrdering Facility: [facility] Address:[address] [place], [place] [address]Performed By: #### 51395- 8 ####[facility] LABCLIA [id number] [facility] [place], [place] [address]PRT [Catalytic activity/Vol]78 U/ISbufxi44-104HmyawomgeUniversity Hospitals TriPoint Medical Center on above:Order Comment: Specimen Type: BLOOD SPECIMENOrdering Facility: [facility] Address:[address] [place], [place] [address]Performed By: #### 00237-4 ####[facility] LABCLIA [id number] [place], [place] [address]BTO [Catalytic activity/Vol]12 U/GMnbsyl48-71AoitoiphfUniversity Hospitals TriPoint Medical Center on above:Order Comment: Specimen Type: BLOOD SPECIMENOrdering Facility: [facility] Address:[address] [place], [place] [address]Performed By: #### 07510- 8 ####[facility] LABCLIA [id number] [place], [place] [address]Xryrd gap [Moles/Vol]10 mmol/LNormal8-15[facility] on above:Order Comment: Specimen Type: BLOOD SPECIMENOrdering Facility: [facility] Address:[address] [place], [place] [address]Performed By: #### 24529-7 ####[facility] LABCLIA [id number] [place], [place] [address]LQF [Catalytic activity/Vol]14 U/VUquqgl60-52NhxpcrsqmUniversity Hospitals [facility]Point [facility] on above:Order Comment: Specimen Type: BLOOD SPECIMENOrdering Facility: [facility] Address:[address] [place], [place] [address]Performed By: #### 42367-2 ####[facility] LABCLIA [id number] [facility] [place] [address] Bilirubin [Mass/Vol]0.4 mg/dLNormal0.2-1.3CCincinnati Shrin[facility] Hospital on above:Order Comment: Specimen Type: BLOOD SPECIMENOrdering Facility: [facility] Address:[address] [place], [place] [address]Performed By: #### 96045-1 ####[facility] LABCLIA [id number] [facility]ENTER[facility], [place] [address]Mnurgig [Mass/Vol]9.5 mg/dLNormal8.5-10.2CCincinnati [facility]rin[facility] on above:Order Comment: Specimen Type: BLOOD SPECIMENOrdering Facility: [facility] Address:[address] [place], [place] [address]Performed By: #### 73981-8 ####[facility] LABCLIA [id number] [facility] CENTERGEMRANSTURGIS, [place] [address]Azlfyigo [Moles/Vol]102 mmol/JVwlzjs75-575EqvqtzgfaUniversity Hospitals TriPoint [facility] on above: Order Comment: Specimen Type: BLOOD SPECIMENOrdering Facility: [facility] Address:[address] [place], [place] [address]Performed By: #### 44672- 8 ####[facility] LABCLIA [id number] [facility] UKRT COLLINSVETERANS HE[facility] [place], [place] [address]HB1 [Moles/Vol]26 mmol/KAnvtpm76-95NoffsloarUniversity Hospitals [facility] on above:Order Comment: Specimen Type: BLOOD SPECIMENOrdering Facility: [facility] Address:[address] [place], [place] [address]Performed By: #### 46956-4 ####[facility] LABCLIA [id number] [facility], [place] [address]Ypylvyckib [Mass/Vol]0.85 mg/dL Normal0.73-1.22[facility] on above:Order Comment: Specimen Type: BLOOD SPECIMENOrdering Facility: [facility] Address:[address] [place] [address]Ieedlfihr By: #### 11426-9 ####[facility] LABCLIA [id number] [place], [place] [address]Hcopvdhdul and Glomerular filtration rate.predicted panel (S/P/Bld)96 mL/min/1.73m???Normal>=60[facility] on above:Order Comment: Specimen Type: BLOOD SPECIMENOrdering Facility: [facility] Address:[address] [place] [address]Vkzeru Comment: Estimated Glomerular Filtration Rate (eGFR) is calculated using the 2020 CKD-EPI creatinine equation. This equation utilizes serum creatinine, sex, and age as parameters. The creatinine assay has traceable calibration to isotope dilution- mass spectrometry. Refer to KDIGO guidelines for clinical interpretation. In patients with unstable renal function, e.g. those with acute kidney injury, the eGFR may not accurately reflect actual GFR.Performed By: #### 48881-3 ####[facility] LABCLIA [id number] [place], [place] [address]Onqnxle [Mass/Vol]109 mg/qRMdgb06-77UnwrjbmvzUniversity Hospitals [facility] on above:Order Comment: Specimen Type: BLOOD SPECIMENOrdering Facility: [facility] Address:[address] [place] [address]Hldwtu Comment: The [place] Diabetes Association (ADA) provides guidance for cutoff values for fasting glucose and random glucose. The ADA defines fasting as no caloric intake for at least 8 hours. Fasting plasma glucose results between 100 to 125 mg/dL indicate increased risk for diabetes (prediab etes).Fasting plasma glucose results greater than or equal to 126 mg/dL meet the criteria for diagnosis of diabetes. In the absence of unequivocal hyperglycemia, results should be confirmed by repeattesting. In a patient with classic symptoms of hyperglycemia or hyperglycemic crisis, random plasmaglucose results greater than or equal to 200 mg/dL meet the criteria for diagnosis of diabetes.Reference: Standards of Medical Care in Diabetes 2016, [place] [employer]. Diabetes Care. 2016.39(Suppl 1).Performed By: #### 04245-2 ####[facility] LABCLIA [id number] [place], [place] [address]Dplwussjz [Moles/Vol]4.4 mmol/LNormal3.7-5.1CCincinnati [facility]rin[facility] on above:Order Comment: Specimen Type: BLOOD SPECIMENOrdering Facility: [facility] Address:[address] [place], [place] [address]Performed By: #### 88597-1 ####[facility] LABCLIA [id number] [place], [place] [address]Ovlkwyg [Mass/Vol]6.5 g/dLNormal6.3-8.0[facility] on above:Order Comment: Specimen Type: BLOOD SPECIMENOrdering Facility: [facility] Address:[address] [place], [place] [address]Performed By: #### 84766- 8 ####[facility] LABCLIA [id number] [place], [place] [address]Lcxlhu [Moles/Vol]138 mmol/KImchfq732-427OkwjwcwgnUniversity Hospitals TriPoint [facility] Center on above:Order Comment: Specimen Type: BLOOD SPECIMENOrdering Facility: [facility] Address:[address] [place], [place] [address]Performed By: #### 73079-9 ####[facility] LABCLIA [id number] [place], [place] [address]Eadu nitrogen [Mass/Vol]11 mg/dLNormal9-24[facility] on above:Order Comment: Specimen Type: BLOOD SPECIMENOrdering Facility: [facility] Address:[address] [place], [place] [address]Performed By: #### 38440-5 ####[facility] LABCLIA [id number] [place], [place] [address]RMGWfu 58-94-4067GVPNTdnmqcGclgkrocp Clinic ClevelandCNPN on 97-85-4768IDKFZkyclsCuojkekbz Clinic ClevelandCNPNon 27-54-4446LVYIZtcvdd [facility] HospitalCC REFERRAL FOR ADDITIONAL BIOMARKER AND MOLECULAR TESTINGon 51-83-8333Eppgmofz Type: TISSUE SPECIMEN [facility] Address: [address] [place] [address] Original Ordering Provider: HILARY ROMO [facility] W Auto Differential panel (Bld)on 11-70-6271Phqrhjdif (Bld) [#/Vol]0.04 10*3/uL Normal<0.11CCincinnati [facility]rin[facility] on above:Order Comment: Specimen Type: BLOOD SPECIMENOrdering Facility: [facility] Address:[address] [place], [place] [address]Performed By: #### 61675-3 ####[facility] LABCLIA [id number] [place] [address] Basophils/100 WBC (Bld)0.5 %NormalUniversity Hospitals TriPoint Medical Center on above: Order Comment: Specimen Type: BLOOD SPECIMENOrdering Facility: [facility] Address:[address] [place], [place] [address]Performed By: #### 77213- 8 ####[facility] LABCLIA [id number] [place], [place] [address]Hxzbaaauqzzy cell count method Nom (Bld)AutoNormal [facility] on above:Order Comment: Specimen Type: BLOOD SPECIMENOrdering Facility: [facility] Address:[address] [place], [place] [address]Performed By: #### 49482-3 ####[facility] LABCLIA [id number] [place], [place] [address]Tkqnggzvmdm (Bld) [#/Vol]0.14 10*3/uLNormal<0.46[facility] on above: Order Comment: Specimen Type: BLOOD SPECIMENOrdering Facility: [facility] Address:[address] [place], [place] [address]Performed By: #### 07415- 8 ####[facility] LABIA [id number] [place], [place] [address]Leslaxapmok/100 WBC (Bld)1.9 %NormalUniversity Hospitals TriPoint Medical Center on above:Order Comment: Specimen Type: BLOOD SPECIMENOrdering Facility: [facility] Address:[address] [place], [place] [address]Performed By: #### 42997-9 ####[facility] LABIA [id number] [place], [place] [address]Dxkiyemgpsi distribution width (RBC) [Ratio]13.1 %Glhfho93.5-15.0[facility] on above: Order Comment: Specimen Type: BLOOD SPECIMENOrdering Facility: [facility] Address:[address] [place], [place] [address]Performed By: #### 76248- 8 ####[facility]IA [id number] [place], [place] [address]Lzrhcalshk (Bld) [Volume fraction]46.0 %Zxwsor64.0-51.0 [facility] on above:Order Comment: Specimen Type: BLOOD SPECIMENOrdering Facility: [facility] Address:[address] [place], [place] [address]Performed By: #### [id number] ####[facility] [id number] [place], [place] [address]Bjkwogndai (Bld) [Mass/Vol]15.3 g/tNEooscx29.0-17.0[facility] on above: Order Comment: Specimen Type: BLOOD SPECIMENOrdering Facility: [facility] Address:[address] [address] [place], [place] [address]Performed By: #### 38712- 8 ####[facility] LABIA [id number] [place], [place] [address]Ufmbgyat granulocytes (Bld) [#/Vol]10*3/uLNormal<0.10 [facility] on above:Order Comment: Specimen Type: BLOOD SPECIMENOrdering Facility: [facility] Address:[address] [place], [place] [address]Performed By: #### 25947-4 ####[facility] LABCLIA [id number] [place], [place] [address]Qikvwaea granulocytes/100 WBC (Bld)0.3 %NormalUniversity Hospitals TriPoint Medical Center on above: Order Comment: Specimen Type: BLOOD SPECIMENOrdering Facility: [facility] Address:[address] [place], [place] [address]Performed By: #### 19186- 8 ####[facility] LABCLIA [id number] [place], [place] [address]Jdowinjpyag (Bld) [#/Vol]1.67 10*3/uLNormal1.00-4.00 [facility] on above:Order Comment: Specimen Type: BLOOD SPECIMENOrdering Facility: [facility] Address:[address] [place], [place] [address]Performed By: #### 84871-3 ####[facility] LABIA [id number] [place], [place] [address]Jwwgkidmghp/100 WBC (Bld)22.6 %NormalUniversity Hospitals TriPoint Medical Center on above:Order Comment: Specimen Type: BLOOD SPECIMENOrdering Facility: [facility] Address:[address] [place], [place] [address]Performed By: #### 96834-2 ####[facility] LABIA [id number] [place], [place] [address]FXS (RBC) [Entitic mass]30.8 erNsnrez69.0-34.0[facility] on above:Order Comment: Specimen Type: BLOOD SPECIMENOrdering Facility: [facility] Address:[address] [place], [place] [address]Performed By: #### 65657-5 ####[facility] LABCLIA [id number] [place], [place] [address]FOSC (RBC) [Mass/Vol]33.3 g/uRJipqno98.5-36.0[facility] on above: Order Comment: Specimen Type: BLOOD SPECIMENOrdering Facility: [facility] Address:[address] [place], [place] [address]Performed By: #### 63768- 8 ####[facility] LABCLIA [id number] [place], [place] [address]LII (RBC) [Entitic vol]92.6 bCRyaepx81.0-100.0[facility] on above:Order Comment: Specimen Type: BLOOD SPECIMENOrdering Facility: [facility] Address:[address] [place], [place] [address]Performed By: #### 73100-7 ####[facility] LABIA [id number] [place], [place] [address]Hafkerxgu (Bld) [#/Vol]0.65 10*3/uLNormal<0.87[facility] on above:Order Comment: Specimen Type: BLOOD SPECIMENOrdering Facility: [facility] Address:[address] [place], [place] [address]Performed By: #### 58912- 8 ####[facility] LABCLIA [id number] [place], [place] [address]Kukevktgx/100 WBC (Bld)8.8 %NormalUniversity Hospitals TriPoint Medical Center on above:Order Comment: Specimen Type: BLOOD SPECIMENOrdering Facility: [facility] Address:[address] [place], [place] [address]Performed By: #### 34074-9 ####[facility] LABIA [id number] [place], [place] [address]Agjcbuvuypr (Bld) [#/Vol]4.87 10*3/uLNormal1.45-7.50[facility] on above:Order Comment: Specimen Type: BLOOD SPECIMENOrdering Facility: [facility] Address:[address] [place], [place] [address]Performed By: #### 97752-7 ####[facility] LABCLIA [id number] [place], [place] [address]Eohttwqqrcc/100 WBC (Bld)65.9 %NormalUniversity Hospitals TriPoint Medical Center on above:Order Comment: Specimen Type: BLOOD SPECIMENOrdering Facility: [facility] Address:[address] [place], [place] [address]Performed By: #### 71995-2 ####[facility] LABCLIA [id number] [place], [place] [address]Jpxcuzkba RBC (Bld) [#/Vol] 10*3/uLNormal<0.01[facility] on above:Order Comment: Specimen Type: BLOOD SPECIMENOrdering Facility: [facility] Address:[address] [place], [place] [address]Performed By: #### 34888-9 ####[facility] LABCLIA [id number] [place], [place] [address]Wejlyjsoc RBC/100 WBC (Bld) [Ratio]0.0 /100 WBCNormal [facility] on above:Order Comment: Specimen Type: BLOOD SPECIMENOrdering Facility: [facility] Address:[address] [place], [place] [address]Performed By: #### 68758-3 ####[facility] LABIA [id number] [place], [place] [address]Ohsnpzib mean volume (Bld) [Entitic vol]8.9 fLLow9.0-12.7CCincinnati [facility] on above:Order Comment: Specimen Type: BLOOD SPECIMENOrdering Facility: [facility] Address:[address] [place], [place] [address]Performed By: #### 12428-7 ####[facility] LABCLIA [id number] [place], [place] [address]Lkjremnvs (Bld) [#/Vol]289 10*3/pKNooxek472-674LsfbsqhhuUniversity Hospitals TriPoint Medical Center on above:Order Comment: Specimen Type: BLOOD SPECIMENOrdering Facility: [facility] Address:[address] [place], [place] [address]Performed By: #### 42046-6 ####[facility] LABCLIA [id number] [place], [place] [address]MDH (Bld) [#/Vol]4.97 10*6/uLNormal4.20-6.00[facility] on above: Order Comment: Specimen Type: BLOOD SPECIMENOrdering Facility: [facility] Address:[address] [place], [place] [address]Performed By: #### 32705- 8 ####[facility] LABCLIA [id number] [place], [place] [address]XCL (Bld) [#/Vol]7.39 10*3/uLNormal3.70-11.00[facility] on above:Order Comment: Specimen Type: BLOOD SPECIMENOrdering Facility: [facility] Address:[address] [place], [place] [address]Performed By: #### 73729-5 ####[facility] LABCLIA [id number] [place], [place] [address]FDG CBC W AUTO DIFF BLDon 38-11-7915Qavslnnor/100 WBC (Bld)0.5 %NOMS [facility] OhioF BASOPHILS # BLD AUTO0.04NINFNOFreeman Orthopaedics & Sports Medicine DIFFERENTIAL METHOD BLDAutoNOMS [facility] OhioF EOSINOPHIL # BLD AUTO0.14NINFNOUniversity Health Lakewood Medical CenterF LYMPHOCYTES # BLD AUTO1.67NOUniversity Health Lakewood Medical CenterF MONOCYTES # BLD AUTO0.65NINFNOUniversity Health Lakewood Medical CenterF NEUTROPHILS # BLD AUTO4.87NOUniversity Health Lakewood Medical CenterF NRBC # BLD AUTO<0.01NINFCox [place] NRBC/100 WBC BLD-RTO0/100 WBCCox [place]ett PLATELET # BLD OGSU956PSFZCox [place] PMV BLD AUTO8.9 fLLow9.0 - 12.7 fLCox [place] WBC # BLD AUTO7.39[facility] HospitalEosinophils/100 WBC (Bld)1.9 %[facility] Memorial HospitalErythrocyte distribution width (RBC) [Ratio]13.1 %11.5 - 15.0 %[facility] HospitalHematocrit (Bld) [Volume fraction]46 %39.0 - 51.0 %[facility] Memorial HospitalHemoglobin (Bld) [Mass/Vol]15.3 g/dL 13.0 - 17.0 g/dLNortheast Regional Medical Center GRANULOCYTES # BLD AUTO<0.03NIVanderbilt Children's Hospital GRANULOCYTES/LEUK NFR BLD AUTO0.3 %[facility] Memorial HospitalInterpretation and review of laboratory resultsAbnormalEllett Memorial HospitalLymphocytes/100 WBC (Bld) 22.6 %[facility] HospitalH (RBC) [Entitic mass]30.8 pg26.0 - 34.0 pgSalem Memorial District HospitalHC (RBC) [Mass/Vol]33.3 g/dL30.5 - 36.0 g/dLSalem Memorial District HospitalV (RBC) [Entitic vol]92.6 fL80.0 - 100.0 fLEllett Memorial HospitalMonocytes/100 WBC (Bld)8.8 % [facility] HospitalNeutrophils/100 WBC (Bld)65.9 %[facility] Memorial HospitalRBC (Bld) [#/Vol] 4.97 10*6/uL4.20 - 6.00 m/uLEllett Memorial HospitalSpecimen Type: BLOOD SPECIMEN [facility] Address: [address] [place] [address] Original Ordering Provider: HILARY Tucker 61-19-2653Pqenvfyopehrjvqh Ag [Mass/Vol]2.8 ng/mLNormal<=2.9 [facility] HospitalComment on above:Order Comment: Specimen Type: BLOOD SPECIMENOrdering Facility: [facility] Address:[address] [place], [place] [address]Result Comment: Carcinoembryonic antigen test is used as an aid in monitoring response to treatmentor recurrence in patients with established colorectal, breast, lung, prostatic, pancreatic, and ovarian carcinomas. Clinical correlation is required.The Carcinoembryonic antigen test was performed using the Edy Sallie Unicel DXI paramagnetic particle chemiluminescent immunoassay method. Results obtained with different assay methods or kits cannot be used interchangeably.Performed By: #### 2039-6 ####[facility] LABCLIA [id number] [address] OF LUTHERAN HOSPITALCNNURSEon 73-35-7837RPLCSVRClrzuy [facility]erry HospitalCNOVon 54-50-0056BKQAWmoywgTbfeuasky Clinic Cleveland CNOVSPon 19-54-9727YBVGLAHfalflWjtikygbc Clinic ClevelandCNPNon 21-41-5171YNTR NormalMartins Ferry HospitalComprehensive metabolic 2000 panelon 11-08-2024 Albumin [Mass/Vol]4.4 g/dLNormal3.9-4.9CCinc[facility] on above:Order Comment: Specimen Type: BLOOD SPECIMENOrdering Facility: [facility] Address:[address] [place], [place] [address]Performed By: #### 26050-9 ####[facility] LABCLIA [id number] [place], [place] [address]GFI [Catalytic activity/Vol]90 U/PEwnyhz56-837 [facility] on above:Order Comment: Specimen Type: BLOOD SPECIMENOrdering Facility: [facility] Address:[address] [place], [place] [address]Performed By: #### 24841-2 ####[facility] LABIA [id number] [place], [place] [address]MZY [Catalytic activity/Vol]9 U/RNfi97-72TtziqelduUniversity Hospitals TriPoint Medical Center on above:Order Comment: Specimen Type: BLOOD SPECIMENOrdering Facility: [facility] Address:[address] [place], [place] [address]Performed By: #### 33256- 8 ####[facility] LABCLIA [id number] [facility] [place] [address]Gvukh gap [Moles/Vol]12 mmol/LNormal8-15[facility] on above:Order Comment: Specimen Type: BLOOD SPECIMENOrdering Facility: [facility] Address:[address] [place], [place] [address]Performed By: #### 95815-6 ####[facility] LABCLIA [id number] NEW HICKSGERMANVETERANS HEALTH ADMINISTR[facility] [place], [place] [address]ACV [Catalytic activity/Vol]14 U/WFsdhqx37-46SczbodzoeUniversity Hospitals TriPoint [facility] on above:Order Comment: Specimen Type: BLOOD SPECIMENOrdering Facility: [facility] Address:[address] [place], [place] [address]Performed By: #### 42106-7 ####[facility] LABCLIA [id number] NEW [facility]LANDVETER[facility] [place] [address] Bilirubin [Mass/Vol]0.5 mg/dLNormal0.2-1.3CCincinnati [facility]rin[facility] Hospital on above:Order Comment: Specimen Type: BLOOD SPECIMENOrdering Facility: [facility] Address:[address] [place], [place] [address]Performed By: #### 91163-8 ####[facility] LABCLIA [id number] [facility]LANDVETER[facility] [place] [address]Koarxiz [Mass/Vol]9.5 mg/dLNormal8.5-10.2CCincinnati [facility] on above:Order Comment: Specimen Type: BLOOD SPECIMENOrdering Facility: [facility] Address:[address] [place], [place] [address]Performed By: #### 87461-6 ####[facility] LABCLIA [id number] NEW HICKSGERMANVETERANS HE[facility] AD[facility] [place], [place] [address]Ekpsosbf [Moles/Vol]100 mmol/ESoqtzr39-013KzeqrmjzjUniversity Hospitals TriPoint [facility] on above: Order Comment: Specimen Type: BLOOD SPECIMENOrdering Facility: [facility] Address:[address] [place], [place] [address]Performed By: #### 12713- 8 ####[facility] LABCLIA [id number] [place], [place] [address]LK5 [Moles/Vol]22 mmol/ETyrnry58-77MsfxasjweUniversity Hospitals TriPoint Medical Center on above:Order Comment: Specimen Type: BLOOD SPECIMENOrdering Facility: [facility] Address:[address] [place], [place] [address]Performed By: #### 28200-3 ####[facility] LABCLIA [id number] [place], [place] [address]Ohjwrvbddu [Mass/Vol]0.84 mg/dL Normal0.73-1.22[facility] on above:Order Comment: Specimen Type: BLOOD SPECIMENOrdering Facility: [facility] Address:[address] [place], [place] [address]Performed By: #### 96077-5 ####[facility] LABCLIA [id number] [place], [place] [address]Mlztqkblbu and Glomerular filtration rate.predicted panel (S/P/Bld)96 mL/min/1.73m???Normal>=60[facility] on above:Order Comment: Specimen Type: BLOOD SPECIMENOrdering Facility: [facility] Address:[address] [place], [place] [address]Result Comment: Estimated Glomerular Filtration Rate (eGFR) is calculated using the 2020 CKD-EPI creatinine equation. This equation utilizes serum creatinine, sex, and age as parameters. The creatinine assay has traceable calibration to isotope dilution- mass spectrometry. Refer to KDIGO guidelines for clinical interpretation. In patients with unstable renal function, e.g. those with acute kidney injury, the eGFR may not accurately reflect actual GFR.Performed By: #### 80466-9 ####[facility] LABCLIA [id number] [place], [place] [address]Tvfbegq [Mass/Vol]94 mg/xNCqnkcn97-23YtqohybszUniversity Hospitals TriPoint [facility] Center on above:Order Comment: Specimen Type: BLOOD SPECIMENOrdering Facility: [facility] Address:[address] [place] [address]Cncfqb Comment: The [place] Diabetes Association (ADA) provides guidance for cutoff values for fasting glucose and random glucose. The ADA defines fasting as no caloric intake for at least 8 hours. Fasting plasma glucose results between 100 to 125 mg/dL indicate increased risk for diabetes (prediab etes).Fasting plasma glucose results greater than or equal to 126 mg/dL meet the criteria for diagnosis of diabetes. In the absence of unequivocal hyperglycemia, results should be confirmed by repeattesting. In a patient with classic symptoms of hyperglycemia or hyperglycemic crisis, random plasmaglucose results greater than or equal to 200 mg/dL meet the criteria for diagnosis of diabetes.Reference: Standards of Medical Care in Diabetes 2016, [place] Diabetes Association. Diabetes Care. 2016.39(Suppl 1).Performed By: #### 94509-5 ####[facility] LABCLIA [id number] [place], [place] [address]Lekojzecw [Moles/Vol]4.0 mmol/LNormal3.7-5.1CCincinnati Shriners Hospital on above:Order Comment: Specimen Type: BLOOD SPECIMENOrdering Facility: [facility] Address:[address] [place] [address]Vicevnadu By: #### 84679-5 ####[facility] LABCLIA [id number] [place], [place] [address]Xuayygj [Mass/Vol]6.8 g/dLNormal6.3-8.0[facility] on above:Order Comment: Specimen Type: BLOOD SPECIMENOrdering Facility: [facility] Address:[address] [place], [place] [address]Performed By: #### 87527- 8 ####[facility] LABCLIA [id number] [place], [place] [address]Hdujmz [Moles/Vol]134 mmol/CTob682-627VydrwyaobUniversity Hospitals TriPoint [facility] on above:Order Comment: Specimen Type: BLOOD SPECIMENOrdering Facility: [facility] Address:[address] [place], [place] [address]Performed By: #### 98755-8 ####[facility] LABCLIA [id number] [place], [place] [address]Okfm nitrogen [Mass/Vol]14 mg/dLNormal06-29[facility] on above:Order Comment: Specimen Type: BLOOD SPECIMENOrdering Facility: [facility] Address:[address] [place], [place] [address]Performed By: #### 34644-0 ####[facility] LABCLIA [id number] [facility] [place], [place] [address]LJPCia 28-09-2425DXYUMttodsPiaxifxet Clinic ClevelandCNPN on 46-28-4254XJRGSrmuryKpwlzszpd Clinic ClevelandCNOVSPon 12-46-2110VWIUGZDguvlx [facility]erry HospitalREFERRAL FOR ADDITIONAL BIOMARKER AND MOLECULAR TESTINGon 16-82-7706ZPDFGLPF FOR ADDITIONAL BIOMARKER AND MOLECULAR TESTING NormalUniversity Hospitals TriPoint [facility] on above:Order Comment: Specimen Type: TISSUE SPECIMENOrdering Facility: [facility] Address: [address] [place], [place] [address]Result Comment: Request has been received for evaluation and the results will be issued separately.Performed By: #### APMOL ####[facility] LABIA [id number] [facility] [address] [facility]TEREASTPO[facility] HOSPITALErica[place], [place] [address]RQH RECTUM WO/W IVCONon 63-41-5576YTR RECTUM WO/W IVCON* * *Final Report* * * DATE OF EXAM: Oct 29 2024 11:50AM [facility] 0754 - MRI RECTUM WO/W IVCON / [...] extra mesorectal lymph nodes: No. EMVI: Yes. Instrument Inspector: RILEY Transcribe Date/Time: Oct 29 2024 4:02P Dictated by : WILLA GILLESPIE MD This examination was interpreted and the report reviewed and electronically signed by: WILLA GILLESPIE MD on Oct 29 2024 4:25PM EST [id number] Hospital [id number] (RMRIF) BENTLEY GONZALEZ ([id number]) 1960 M Date Time Provider Department 10/28/24 MILY MONTANO RMRIF During your visit today, we recorded the [...] Of Date: 10/28/2024 (None) Encounter Status:Closed by MILY MNOTANO on 10/28/24[facility] CNCNPATEDon 16-58-0849AVVZIZQXCJklvitAeiuwfnfnChildren's Hospital for Rehabilitation ABD/PEL W IVCONon 72-59-6251FK ABD/PEL W IVCONNormalProMedica Flower Hospital Abdomen and Pelvis W contrast Lila 05-32-3719FESZFJOTIQ: 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 If you are unable to reach us at the number above, please feel free to contact [facility] eRadiology at [phone].DIVISION OF RADIOLOGY* * *Final Report* * * DATE OF EXAM: Oct 27 2024 9:01AM [facility] 0530 - CT ABD/PEL W IVCON / [...] was performed concurrently and is dictated separately. Landscape Architecture Professor (topogram) images: Unremarkable. DIVISION OF RADIOLOGYProvider, [facility] [place] - 10/27/2024 * * *Final Report* * * DATE OF EXAM: Oct 27 2024 9:01AM [facility] 0530 - CT ABD/PEL W IVCON / [...] was performed concurrently and is dictated separately. Landscape Architecture Professor (topogram) images: Unremarkable. IMPRESSION IMPRESSION: 5 cm [...] any questions regarding this interpretation, please call [phone]. If you are unable to reach us at the number above, please feel free to contact [facility] at [phone]. [facility] Abdomen and Pelvis W contrast IVOrdered By: [facility] Provider on 76-00-5627Gqqqhsruz ClinicCT CHEST W IVCONon 34-88-8471CM CHEST W IVCONNormal [facility] Chest W contrast Lila 25-16-6842LZVPLLMVBG: Few scattered pulmonary nodules measuring up to [...] any questions regarding this interpretation, please call [phone]. If you are unable to reach us at the number above, please feel free to contact [facility] at [phone].DIVISION OF RADIOLOGY* * *Final Report* * * DATE OF EXAM: Oct 27 2024 9:01AM [facility] 0539 - CT CHEST W IVCON / [...] was performed concurrently and is dictated separately. Landscape Architecture Professor (topogram) images: Unremarkable. DIVISION OF RADIOLOGYProvider, [facility] [place] - 10/27/2024 * * *Final Report* * * DATE OF EXAM: Oct 27 2024 9:01AM [facility] 0539 - CT CHEST W IVCON / [...] was performed concurrently and is dictated separately. Landscape Architecture Professor (topogram) images: Unremarkable. IMPRESSION IMPRESSION: Few scattered [...] any questions regarding this interpretation, please call [phone]. If you are unable to reach us at the number above, please feel free to contact [facility] eRadiology at [phone]. [facility] CenterNo Panel Informationon 33-27-7690Ntdfwvfdl Study observation (narrative)[facility] HospitalCNOVon 87-11-1682GGCPJyivijIfpmwyigb Clinic ClevelandMISMATCH REPAIR PROTEINS BY IHCon 36-02-3270BA BIOMARKER DISCLAIMERNoDiley Ridge Medical CenterComment on above:Order Comment: Specimen Type: FORMALIN-FIXED PARAFFIN-EMBEDDED TISSUE SPECIMENOrdering Facility: [facility] Review Address: , ,Result Comment: Laboratory Developed Test (LDT) Disclaimer:Performance characteristics of immunohistochemical, immunofluorescent and chromogenic in-situ hybridization tests have been determined by the performing laboratory within [facility]???s Willem Roman [facility] Pathology and Laboratory Medicine Department ([facility], [facility], [facility], [facility], [facility], [facility], or [facility]) in a manner consistent with CLIA requirements. One or more of these tests have not been cleared or approved by the FDA.[facility] is regulated under CLIA as qualified to perform high-complexity testing. These tests are used for clinical purposes. They should not be regarded as investigational or for research. Positive and negative controls stain appropriately.Performed By: #### [id number] ####[facility] LABCLIA [id number] [place] [id number] [place] AMERICAAP BLOCK TJB3QtxmdiOuzlansheDiley Ridge Medical Center Comment on above:Order Comment: Specimen Type: FORMALIN-FIXED PARAFFIN-EMBEDDED TISSUE SPECIMENOrdering Facility: [facility] Review Address: , ,Performed By: #### [id number] ####[facility] LABCLIA [id number] [address] [address] [place] STATES OF AMERICABIOMARKER INTERPRETATION COMMENT AND REFERENCE RANGENormalCleveland Clinic Reyna Comment on above:Order Comment: Specimen Type: FORMALIN-FIXED PARAFFIN-EMBEDDED TISSUE SPECIMENOrdering Facility: [facility] Review Address: , ,Result Comment: Intact expression of MMR (mismatch repair) proteins by [...] a high clinical suspicion and appropriate family history.In a phase 2 study of patients with metastatic carcinoma, Vicenta et al. ([facility] 2015;372:9647-00) reported that the clinical benefit of pembrolizumab, an anti-programmed 1 (PD-1) immune checkpoint inhibitor, was predicted by the tumor's mismatch repair status; mismatch repair deficient (dMMR) tumors are more responsive to PD-1 blockade than mismatch repair proficient tumors.Pembrolizumab is FDA-approved for treating adultand pediatric patients with unresectable or metastatic solid tumors that display microsatellite inst ability-high (MSI-H) by PCR assay or dMMR by immunohistochemistry (IHC). The FDA does not distinguish between PCR and IHC-based assays, as these are considered equivalent and complimentary tests.As clinically indicated, and in the appropriate setting of genetic counseling with informed patient consent, further genetic testing may be helpful. For more information or questions about this result, please call the [facility] at [phone].Performed By: #### [id number] ####[facility] LABCLIA [id number] [address]ETBIOMARKER METHODNoAshtabula County Medical Center on above:Order Comment: Specimen Type: FORMALIN-FIXED PARAFFIN-EMBEDDED TISSUE SPECIMENOrdering Facility: [facility] Review Address: , ,Performed By: #### [id number] ####[facility] LABCLIA [id number] [address] [facility] on above:Order Comment: Specimen Type: FORMALIN-FIXED PARAFFIN-EMBEDDED TISSUE SPECIMENOrdering Facility: [facility] Review Address: , ,Performed By: #### [id number] ####[facility] LABIA [id number] [place] [address] [place] LUTHERAN HOSPITALFIXATIVEFormalin, 10% Neutral BufferedNormal [facility] on above:Order Comment: Specimen Type: FORMALIN-FIXED PARAFFIN-EMBEDDED TISSUE SPECIMENOrdering Facility: [facility] Review Address: , ,Performed By: #### [id number] ####[facility] LABIA [id number] [address] STATES OF LUTHERAN HOSPITALMLH1 IMMUNOHISTOCHEMICAL RESULTSNormal/Intact Nuclear ExpressionNormal [facility] on above:Order Comment: Specimen Type: FORMALIN-FIXED PARAFFIN-EMBEDDED TISSUE SPECIMENOrdering Facility: [facility] Review Address: , ,Performed By: #### [id number] ####[facility] LABIA [id number] [address] STATES OF AMERICAMLH1 PROMOTER METHYLATION ASSAYNoNormalUniversity Hospitals [facility] on above:Order Comment: Specimen Type: FORMALIN-FIXED PARAFFIN-EMBEDDED TISSUE SPECIMENOrdering Facility: [facility] Review Address: , ,Performed By: #### [id number] ####[facility] LABIA [id number] [place] [address] [place] LUTHERAN HOSPITALMMR INTERPRETATION Proficient (Microsatellite Stable)[facility] on above:Order Comment: Specimen Type: FORMALIN-FIXED PARAFFIN-EMBEDDED TISSUE SPECIMENOrdering Facility: APOutside Review Address: , ,Performed By: #### [id number] ####[facility] LABIA [id number] [address] STATES OF AMERICAMSH2 IMMUNOHISTOCHEMICAL RESULTSNormal/Intact Nuclear ExpressionNormalCCincinnati Shriners Hospital on above:Order Comment: Specimen Type: FORMALIN-FIXED PARAFFIN-EMBEDDED TISSUE SPECIMENOrdering Facility: APOutside Review Address: , ,Performed By: #### [id number] ####[facility] LABCLIA [id number] [address] STATES OF [place] MSH6 IMMUNOHISTOCHEMICAL RESULTSNormal/Intact Nuclear ExpressionNoAshtabula County Medical Center on above:Order Comment: Specimen Type: FORMALIN-FIXED PARAFFIN-EMBEDDED TISSUE SPECIMENOrdering Facility: [facility] Review Address: , ,Performed By: #### [id number] ####[facility] LABCLIA [id number] [address] OF [place] PMS2 IMMUNOHISTOCHEMICAL RESULTSNormal/Intact Nuclear ExpressionNormalCCincinnati Shriners Hospital on above:Order Comment: Specimen Type: FORMALIN-FIXED PARAFFIN-EMBEDDED TISSUE SPECIMENOrdering Facility: [facility] Review Address: , ,Performed By: #### [id number] ####[facility] LABIA [id number] [place] [address] [place] TUMOR TYPE MMROther (See Comment)[facility] on above:Order Comment: Specimen Type: FORMALIN-FIXED PARAFFIN-EMBEDDED TISSUE SPECIMENOrdering Facility: [facility] Review Address: , ,Result Comment: Rectum: At least high-grade dysplasiaPerformed By: #### [id number] ####[facility] LABIA [id number] [address] STATES OF LUTHERAN HOSPITALOUTSIDE SURG PATH SLIDE REVIEWon [id number] REPORT [facility] on above:Order Comment: Specimen Type: FORMALIN-FIXED PARAFFIN-EMBEDDED TISSUE SPECIMENOrdering Facility: [facility] Review Address: , ,Result Comment: Surgical Pathology Report Case: [id number] Provider: Teresa Tucker MD Collected: 10/22/2024 02:47 PMOrdering Location: [facility] Received: 10/22/2024 02:46PM [facility] LaboratoryPathologist: Karen Parker MDSpecimen: Slide(s), 3 SLIDES [id number] By: #### [id number] ####[facility] LABCLIA [id number] [place] [address] [place] DIAGNOSIS COMMENTA submitted pankeratin immunostain highlights nonneoplastic epithelium and invasive tumorNoAshtabula County Medical Center on above: Order Comment: Specimen Type: FORMALIN-FIXED PARAFFIN-EMBEDDED TISSUE SPECIMENOrdering Facility: [facility] Review Address: , ,Performed By: #### [id number] ####[facility] LABCLIA [id number] [place] [address] [place] AMERICAFINAL DIAGNOSISNormal [facility] on above:Order Comment: Specimen Type: FORMALIN-FIXED PARAFFIN-EMBEDDED TISSUE SPECIMENOrdering Facility: [facility] Review Address: , ,Result Comment: Outside , 4Colon, rectum, mass, biopsy-Invasive moderately differentiated adenocarcinoma Performed By: #### [id number] ####[facility] LABCLIA [id number] [place] [address] [place] FINAL PERFORMING LABNormalCCincinnati Shriners Hospital on above:Order Comment: Specimen Type: FORMALIN-FIXED PARAFFIN-EMBEDDED TISSUE SPECIMENOrdering Facility: [facility] Review Address: , ,Result Comment: Diagnostic interpretation performed at: [facility], [address] [place] [address] CLIA# [id number] Director: ANNA Rushingerformed By: #### [id number] ####[facility] LABCLIA [id number] [place] [address] [place] AMERICAResult Comment: Diagnostic interpretation performed at: [facility], [address] [place], [place] [address] CLIA# [id number] Director: Enoch Carnes MDElectronically signed out by: ANNA Babberformed By: #### [id number] ####[facility] LABCLIA [id number] [place] [id number] [place] OF AMERICATARGETED ONCOLOGY PANEL NEXT GENERATION SEQUENCING OTHERon [id number] ONCOLOGY PANEL NEXT GENERATION SEQUENCING [facility] CLARENoAshtabula [facility] on above:Order Comment: Specimen Type: FORMALIN-FIXED PARAFFIN-EMBEDDED TISSUE SPECIMENOrdering Facility: [facility] Review Address: , ,Result Comment: [facility] Targeted Oncology PanelLaboratory Accession Number: [id number] #: [id number] #: [id number] ([id number])Sample Type: FFPET% Tumor: 30CASE SUMMARY:No clinically signifi cant single nucleotide variants, insertions,deletions, copy number gains, RNA fusions or aberrant transcripts weredetected in this specimen. Clinical and histopathological correlationis recommended.*Unless otherwise stated, all assay hotspot regions have been tested(see EVALUATED GENES below) and only positive genes are reported.RESULTS:Single Nucleotide Variants/Indels: None detectedCopy Number Gains: None detectedRNA Fusions and Aberrant Transcripts: None detectedVARIANT INTERPRETATIONS: NoneDetectedVariants of uncertain significance detected:None detectedRegions with coverage <100x:NoneMETHODOLOGY:Extracted nucleic acid from the specimen, both DNA and RNA, weresubjected to separate ta rgeted amplification reactions, using AmpliSeqcustom primers designed by [employer] ([employer] / [employer], [place], [place]). Hotspots and selected fusions in generegions listed below were sequenced using Illumina ([place], [place])2x150 paired-end cycle chemistry. A customized bioinformaticsanalytical platform was used for read alignment (Genome CgyaiNCUu48/hg19), variant identificationand annotation. Single nucleotidevariants (SNVs), insertion, deletion (indels) and copy number gainvariants are detected by DNA sequencing. Select fusions and aberranttranscripts (EGFR vIII and MET exon 14 skipping transcripts) aredetected by RNA sequencing. Variants are classified according toestablished guidelines (1). Reported results include variants ofstrong or potential clinical significance and variants of unclearclinical significance. Benign population polymorphisms are notincluded in the report. If relevant, standard of care therapies forvarious solid tumor types/indications (FDA-appr prashant biomarker orstandard biomarker recommended by a professional society) are providedin the variant interpretation section, as well as markers resistant toFDA-approved drugs. This information is not to be considered arecommendation for therapy.Based on validation, the DNA testing delivered an average of >500xcoverage and >99% of targeted regions showed over 100x coverage. Aminimum coverage depth of 100 reads is required across the entireregion of interest; a list of low coverage areas is included in thereport as applicable. The test demonstrated 100% sensitivity and 100%specificity inidentifying SNVs, indels and copy number gains. Thelower limit of detection of this assay is approximately 5% variantallele fraction (VAF) for SNV/indels and 6 copies or greater for copynumber gains.Variants below these thresholds may be reported at thediscretion of the molecular pathology professional staff if thetechnical quality of the sequencing is sufficient at that location andthe call is u nequivocal.Based on validation, the RNA fusion testing averaged >150,000 totalreads. The test demonstrated 93% sensitivity and 100% specificity ingene fusion identification compared to NGS sequencing, and 69%sensitivity and 100% specificity compared to FISH of fusion drivers(unknown fusion partner). Overall sensitivity is 78% and accuracy is99%. The lower limit of detection is approximately 1%of totalsequencing reads.LIMITATIONS:Sequence changes outside the analyzed alterations hotspots, includingintronic and noncoding regions, will not be identified by this test.Insertions and deletions larger than 20 and 40 bp, respectively, maynot be identified by this test. Negative results from spec imens forwhich the percentage of tumor cells is 10% or less should beinterpreted with caution. Although variant allele fraction is providedas a percentage, this is not a quantitative test. RNA fusionsinvolving alternative partners or breakpoints outside of the targetedregions cannot be detected by this test. This test does notdistinguish between somatic and inherited variants.Tumor heterogeneity,tumor burden, specimen degradation or otherlimitations of the technology may affect the sensitivityand limit ofdetection, either broadly across the regions of interest or forspecific regions and maylead to false negative results.For tumor tissue, fixation in neutral buffered formalin or alcohol ispreferred. Decalcification agents and fixation agents containing heavymetals (e.g., B5) or harsh acid or base components (e.g., Bouin'ssolution) can inhibit PCR reactions. Peripheral blood and bone marrowaspirate specimens should be collected in EDTA.Hotspots, copy number variants and selected fusions evaluated by thisassay can aid in the diagnostic and therapeutic assessment of avariety of tumortypes, including non-small cell lung cancer,melanoma, colorectal cancer, prostate cancer, breast cancer,glioblastoma, thyroid cancer and others (2-12). This panel can alsoprovide focused tumor profiling for patients with locallyadvanced/metastatic disease, who are candidates for anti-cancertherapy,to identify uncommon but targetable alterations (13, 14).Clinical and histopathological correlationrequired.EVALUATED GENES:Gene Transcript Exon(s)ALKT1 NM_005163 3ALK NM_004304 21-25AR NM_000044 6, 8BRAF NM_004333 11, 15CDK4 NM_000075 8RRYGJ7 NM_001904 3, 7-8DDR2 NM_006182 5EGFR NM_005228 3, 7,12, 15, 18-97ZQZP8 NM_004448 8, 17-81VDRZ2 NM_001982 2-3, 6, 8- 9ERBB4 NM_005235 18ESR1 NM_000125 8FGFR1 NM_023110 12-14, 16-79MQEZ6 NM_000141 7-9, 12, 54RGMB7 NM_000142 7, 9, 14, 10SSD42 NM_002067 4,5GNAQ NM_002072 4, 5GNAS NM_080425 8H3-3A NM_002107 2H3-3B NM_005324 2HRAS NM_005343 2,3IDH1 NM_005896 4IDH2 NM_002168 4JAK1 NM_002227 14-16JAK2 NM_004972 14JAK3 NM_000215 11-12, 15KIT NM_000222 8-11, 13, 17KRAS NM_033360 2-5QVG6Z8 NM_002755 2-3, 1JQC2A7 NM_030662 2MET NM_000245 14, 16, 19MTOR NM_004958 30, 39-40, 43, 47, 53NRAS NM_002524 2-4PDGFRA NM_006206 12, 14, 42SOX3ZB NM_006218 2, 5-6, 8, 10, 14, 19, 21RAF1 NM_002880 7, 12RET NM_020975 11, 13, 15-16ROS1 NM_002944 36, 38SMO NM_005631 4, 6, 8-9TERT NM_198253 EaqjuacnRC95 NM_000546 5, 7, 8*Only hotspots within designated exons are covered, full exons are notsequenced.Genes reported for copy number gains: ALK, AR BRAF, CCND1, CDK4, CDK6,EGFR, ERBB2, FGFR1, FGFR2, FGFR3, FGFR4, KIT, KRAS, MET, MYC, MYCN,PDGFRA, VRM9BRNbedmuu detected inRNA:Gene Detected FusionsABL1 EML1::XQM6ALW1 MAGI3::UFB3VBD A2M::ALK, ACTG2::ALK, ALK::PTPN3, ATIC::ALK, N5wud71::ALK, CARS::ALK, CLIP4::ALK, CLTC::ALK, DCTN1::ALK, EML4::ALK, GKQ2LJD8::ALK, HIP1::ALK, KIF5B::ALK, KLC1::ALK, MEMO1::ALK, NCOA1::ALK, KQDFZ8J::ALK, RANBBP2::ALK, TVC91B2_DAX96E::ALK, SMEK2::ALK, STRN::ALK, TFG::ALK, TPM1::ALK, TPM3::ALK, TPM4::ALK, TPR::ALK, TRAF1::ALK, VCL::ALKAXL JAS::MBIPBRAF AGTRAP:BRAF, AKAP9::BRAF, CDC27::BRAF, MMO983O::BRAF, FCHSD1::BRAF, AZYQ3598::BRAF, PAPS S1::BRAF, ENM65Y4::BRAF, SND1::BRAF, UVS5NI6::BRAF, TRIM24::BRAFEGFR EGFR vIII transcriptERBB2 WIPF2::LCWN3GZG ONT24Z0:ERG, TMPRSS2:ERGFGFR1 BAG4::FGFR1, ERLIN2::FGFR1, FGFR1::TBAK7LXEH3 FGFR2::AFF3,FGFR2::BICC1, FGFR2::CASP7, FGFR2::CIT, FGFR2::VNVN0627_PQMP5, FGFR2::MGEA5, FGFR2::OFD1, FGFR2::TACC1, VEN52Z4::OVCU8CYLB5 FGFR3::AES, FGFR3::EHDQO5B6, FGFR3::ELAVL3, FGFR3::IQZC7IXU MET Exon 14 Skipping, DTCFN2J8::MET, S6yvj98::MET, CAPZA2::MET, OXR1::MET, TFG::MET, TPR::MET, PTPRZ1::METNTRK1 BCAN::NTRK1, CD74::NTRK1, DONTE::NTRK1, WUG6TZ5::NTRK1, LMNA::NTRK1, MPRIP::NTRK1, NFASC::NTRK1, NTRK1::UJGI5O8, OOA728::NTRK1, SQSTM1::NTRK1, SSBP2::NTRK1, TFG::NTRK1, TPM3::NTRK1, TPR::SZYJ6UHPW4 AFAP1::NTRK2, AGBL4::NTRK2, NACC2::NTRK2, QKI::NTRK2, SQSTM1::NTRK2, TRIM24::NTRK2, VCL::VJPI3SHXK9 BTBD1::NTRK3, COX5A::NTRK3, ETV6::TJPI9AEEHMK SCAF11::PDGFRAPPARG PAX8::PPARGRAF1 T5HJUH7::RAF1, ESRP1::RAF1 RELA G69nbc48::RELARET ACBD5::RET, AFAP1::RET, AKAP13::RET, CCDC6::RET, CUX1::RET, ERC1::RET, FKBP15::RET, GOLGA5::RET, HOOK3::RET, DHVE1381::RET, KIF5B::RET, KTN1::RET, NCOA4::RET, PCM1::RET, JLCIN1S::RET, RUFY2::RET, JIQHZ6G::RET, HND8TH7::RET, TRIM24::RET, TRIM27::RET, TRIM33::RETROS1 CCDC6:ROS1, CD74::ROS1, CEP85L::ROS1, CLIP1::ROS1, CLTC::ROS1, ERC1::ROS1, EZR::ROS1, GOPC::ROS1, HLA_A::ROS1,KDELR2::ROS1, FUJO2537::ROS1, LRIG3::ROS1, MSN::ROS1, MYO5A::ROS1, PPFIBP1::ROS1, PWWP2A::ROS1, SDC4::ROS1, WRM69C8::ROS1, TFG::ROS1, TPM3::ROS1, ZCCHC8::RUO5BJERCQ0 TMPRSS2::ERG, TMPRSS2::ETV1, TMPRS S2::ETV4, TMPRSS2::LJO8GNXRWONNGX:1) Bashir MM, et al. Standards and Guidelines for the Interpretation andReporting of Sequence Variants in Cancer: A Joint ConsensusRecommendation of the Association for Molecular Pathology, [facility] of Clinical Oncology, and College of [place] African Pathologists. JMol Diagn. 2017 Oct;19(1):4-23. doi: 10.1016/j.jmoldx.2016.10.002.PMID: 39490457; PMCID: IMI3610402.2)Zeus-James C, Ed SA, Char AM. Recurrent gene fusions inprostate cancer. Cindy Rev Cancer.2008 Apr;8(7):497-511. doi:10.1038/mml5450. Epub 2007Mar 24. PMID: 32550880; PMCID: TCY9809350.3) Tapan SC, Kiran LA. The genomic landscape of prostate cancer.Front Endocrinol ([facility]). 2011;3:69. doi:10.3389/fendo.2012.32873. PMID: 15683255; MAQ5306230.4) Jignesh C, et al. Breast Cancer Genomics: Primary and Most CommonMetastases. Cancers (Basel). 2021Mar 26;14(13):3046. doi:10.3390/ kfivnhl40790648. PMID: 38764149; PMCID: KXH4895068.5) Mariah R, Jordon GREENJ, CJ. Administrator Pesticide Oncogenes but Not as We KnowThem: Targetable Fusion Genes in Breast Cancer. Cancer Discov. 2018Dec;8(3):272-275. doi: 10.0435/1451-4088.CD-18-0091. PMID: 90590669;PMCID: ZQY9593021.6) Jonathan A, Yariel J, Darrell JW, Braulio N, Tulio T, Donnie CS. The GenomicLandscape of Thyroid Cancer Tumourigenesis and Implications forImmunotherapy. Cells. 2020February 03;10(5):1082. doi:10.3390/fdzep48791295. PMID: 76042802; PMCID: TJG2774193.7) Syed DOMINGUEZ, et al. Molecular Biomarkers for the Evaluation ofColorectal Cancer: Guideline From the [place] Society for ClinicalPathology, College of [place] African Pathologists, Association for MolecularPathology, and the [place] Society of Clinical Oncology. J ClinOncol. 2017 February 03;35(13):0942-6558. doi: 10.1200/JCO.2016.71.9807.Epub 2016Nov 11. PMID: 00961152.8) Brayan PARDO, et al. Updated Molecular Testing Guideline for theSelection of Lung Cancer Patients for Treatment With Targeted TyrosineKinase Inhibitors: Guideline From the College of AmericanPathologists, the International Association for the Study of LungCancer, and the Association for Molecular Pathology. Arch Pathol LabMed. 2018 Dec;142(3):321-346. doi: 10.5858/arpa.5839-3799-XA. Rnmj9039 Oct 27. PMID: 23692375.9) Cancer Genome [employer] Research Network. Comprehensive genomiccharacterization defines human glioblastoma genes and core pathways.Nature. 2007Jul 28;455(2553):1061-8. doi: 10.1038/oekcma51707. Lofk2628. Erratum in: Nature. 2012Dec 03;494(6670):506. PMID:82403564; PMCID: TWJ1968964.10) Marivel Caruso. Glioblastoma Genomics: A Very ComplicatedStory. In: De Erendirauwsundar S, editor news. Glioblastoma [Internet].Adrienne ([place]): [employer]; 2017 Sep 27. Chapter 1. PMID:31072873.11) Yuriy S, Maryan N, Maria E H. Melanoma genomics: a izmqu-dj-oob-artreview of practical clinical applications. Br J Dermatol. ;185(2):272-281. doi: 10.1111/bjd.39475. Epub 2020Mar 11. PMID:86338552.12) Bianca L, Juan DELGADILLO. An update on molecular genetics ofgastrointestinal stromal tumours. J Clin Pathol. ;59(6):557-63. doi: 10.1136/jcp.2005.776291. PMID: 20257804; PMCID:KON8737565.13) Fernando ER, Karina M, Sia BRYANTB, Pancho TL, Jammie LL. Molecularprofiling for precision cancer therapies. Genome Med. 2019;12(1):8. doi: 10.1186/w31248-667-8595-9. PMID: 64948141; PMCID:HXK2516717.14) Luther Candelaria et al. Somatic Genomic Testing in Patients WithMetastatic or Advanced Cancer: ASCOProvisional Clinical Opinion. JClin Oncol. 2021Jan 13;40(11):6157-9867. doi: 10.1200/JCO.21.28080.Epub 2021Nov 22. Erratum in: J Clin Oncol. 2021Mar 25;40(18):2068.PMID: 23905855.15) Luther Det al. OncoKB: OncoKB: A Precision OncologyKnowledge Base. JCO Precis Oncol. 2017 Apr;2017:PO.17.81292. doi:10.1200/PO.17.40199. Epub 2016February 18. PMID: 46614959; PMCID:TKY0042273.DISCLAIMER:This test was developed and its performance characteristics determinedby [facility]'s Pathology and Lab oratory Medicine Department. Ithas not been cleared or approved by the FDA. [facility] is regulated under CLIAas certified to perform high-complexity testing. This test is used forclinical purposes. It should not be regarded as investigational or f orresearch.Testing and interpretation performed at [facility], [address] [place] [address]. [place] Number: [id number] reviewed by Luisana Torres, PhD, [facility]DS HOSPITALPerformed By: #### TOPTO ####CLARITY ILLUMINA LIMDEVANLIA [id number] [place] [address] [place] CBC W Auto Differential panel (Bld)on 33-36-5075Rxxywrbzf (Bld) [#/Vol]0.03 10*3/uLNINFOhiohealth Hardin Memorial HospitalBasophils/100 WBC (Bld)0.4 %[facility] Differential cell count method Nom (Bld)AutoCleveland ClinicEosinophils (Bld) [#/Vol]0.10 10*3/uLNINFOhiohealth Hardin Memorial HospitalEosinophils/100 WBC (Bld)1.2 %[facility] HospitalErythrocyte distribution width (RBC) [Ratio]13.2 %11.5 - 15.0 %[facility] HospitalHematocrit (Bld) [Volume fraction]45.2 %39.0 - 51.0 %[facility] Hemoglobin (Bld) [Mass/Vol]15.0 g/dL13.0 - 17.0 g/dLOhiohealth Hardin Memorial HospitalImmature granulocytes (Bld) [#/Vol]0.03 10*3/uLNIACMC Healthcare SystemImmature granulocytes/100 WBC (Bld)0.4 %[facility] HospitalInterpretation and review of laboratory resultsAbnormalCleveland ClinicLymphocytes (Bld) [#/Vol]1.62 10*3/uL [facility] HospitalLymphocytes/100 WBC (Bld)19.7 %[facility] HospitalH (RBC) [Entitic mass]31.1 pg26.0 - 34.0 pgCOhioHealth Southeastern Medical CenterHC (RBC) [Mass/Vol]33.2 g/dL30.5 - 36.0 g/dLMercy Memorial HospitalV (RBC) [Entitic vol]93.8 fL80.0 - 100.0 fLCleveland ClinicMonocytes (Bld) [#/Vol]0.57 10*3/uLNIACMC Healthcare System Monocytes/100 WBC (Bld)6.9 %[facility] HospitalNeutrophils (Bld) [#/Vol]5.89 10*3/uLOhiohealth Hardin Memorial HospitalNeutrophils/100 WBC (Bld)71.4 %[facility] HospitalNucleated RBC (Bld) [#/Vol]NINFClevelGenesis HospitalNucleated RBC/100 WBC (Bld) [Ratio]0.0 % /100 WBCOhiohealth Hardin Memorial HospitalPlatelet mean volume (Bld) [Entitic vol]8.9 fLLow9.0 - 12.7 fLClevelatrium health union west ClinicPlatelets (Bld) [#/Vol]274 10*3/uLOhiohealth Hardin Memorial HospitalRBC (Bld) [#/Vol]4.82 10*6/uL4.20 - 6.00 m/[facility] Health CenterWBC (Bld) [#/Vol]8.24 10*3/uLMercy Health Tiffin Hospital ClinicBasophils (Bld) [#/Vol]0.03 10*3/uLNormal <0.11CCincinnati Shriners Hospital on above:Order Comment: Specimen Type: BLOOD SPECIMENOrdering Facility: [facility] Address:[address] [place], [place] [address]Performed By: #### 03805-7 ####[facility] LABIA [id number] [place] [address] Basophils/100 WBC (Bld)0.4 %NormalUniversity Hospitals TriPoint Medical Center on above: Order Comment: Specimen Type: BLOOD SPECIMENOrdering Facility: [facility] Address:[address] [place], [place] [address]Performed By: #### 35803- 8 ####[facility] LABCLIA [id number] [place], [place] [address]Inzdcvxmvofw cell count method Nom (Bld)AutoNormal [facility] on above:Order Comment: Specimen Type: BLOOD SPECIMENOrdering Facility: [facility] Address:[address] [place], [place] [address]Performed By: #### 51606-7 ####[facility] LABCLIA [id number] [place], [place] [address]Yutooqfiyvk (Bld) [#/Vol]0.10 10*3/uLNormal<0.46[facility] on above: Order Comment: Specimen Type: BLOOD SPECIMENOrdering Facility: [facility] Address:[address] [place], [place] [address]Performed By: #### 45356- 8 ####[facility] LABIA [id number] [place], [place] [address]Kplzptqynwj/100 WBC (Bld)1.2 %NormalUniversity Hospitals TriPoint Medical Center on above:Order Comment: Specimen Type: BLOOD SPECIMENOrdering Facility: [facility] Address:[address] [place], [place] [address]Performed By: #### 29340-9 ####[facility] LABIA [id number] [place], [place] [address]Qfatiharobq distribution width (RBC) [Ratio]13.2 %Qplthj41.5-15.0[facility] on above: Order Comment: Specimen Type: BLOOD SPECIMENOrdering Facility: [facility] Address:[address] [place], [place] [address]Performed By: #### 03173- 8 ####[facility] LABIA [id number] [place], [place] [address]Faoibbhcwe (Bld) [Volume fraction]45.2 %Ztjowu40.0-51.0 [facility] on above:Order Comment: Specimen Type: BLOOD SPECIMENOrdering Facility: [facility] Address:[address] [place], [place] [address]Performed By: #### 47050-9 ####[facility] LABIA [id number] [place], [place] [address]Aeirwwlkid (Bld) [Mass/Vol]15.0 g/cJSfaart66.0-17.0[facility] on above: Order Comment: Specimen Type: BLOOD SPECIMENOrdering Facility: [facility] Address:[address] [place], [place] [address]Performed By: #### 79850- 8 ####[facility] LABCLIA [id number] [place], [place] [address]Nxtxuyfy granulocytes (Bld) [#/Vol]0.03 10*3/uLNormal <0.10[facility] on above:Order Comment: Specimen Type: BLOOD SPECIMENOrdering Facility: [facility] Address:[address] [place], [place] [address]Performed By: #### 81758-1 ####[facility] LABCLIA [id number] [place], [place] [address]Fmnheoav granulocytes/100 WBC (Bld)0.4 %NormalUniversity Hospitals TriPoint Medical Center on above: Order Comment: Specimen Type: BLOOD SPECIMENOrdering Facility: [facility] Address:[address] [place], [place] [address]Performed By: #### 19954- 8 ####[facility] LABCLIA [id number] [place], [place] [address]Uncryqhbzcm (Bld) [#/Vol]1.62 10*3/uLNormal1.00-4.00 [facility] on above:Order Comment: Specimen Type: BLOOD SPECIMENOrdering Facility: [facility] Address:[address] [place], [place] [address]Performed By: #### 24438-9 ####[facility] LABCLIA [id number] [place], [place] [address]Yvvvibuicss/100 WBC (Bld)19.7 %NormalUniversity Hospitals TriPoint Medical Center on above:Order Comment: Specimen Type: BLOOD SPECIMENOrdering Facility: [facility] Address:[address] [place], [place] [address]Performed By: #### 26316-7 ####[facility] LABCLIA [id number] [place], [place] [address]XPQ (RBC) [Entitic mass]31.1 qxPnyutx01.0-34.0[facility] on above:Order Comment: Specimen Type: BLOOD SPECIMENOrdering Facility: [facility] Address:[address] [place], [place] [address]Performed By: #### 05787-5 ####[facility] LABCLIA [id number] [place], [place] [address]QETW (RBC) [Mass/Vol]33.2 g/tIUuzaqb40.5-36.0[facility] on above: Order Comment: Specimen Type: BLOOD SPECIMENOrdering Facility: [facility] Address:[address] [place], [place] [address]Performed By: #### 96691- 8 ####[facility] LABIA [id number] [place], [place] [address]QSY (RBC) [Entitic vol]93.8 uUCrzfuy06.0-100.0[facility] on above:Order Comment: Specimen Type: BLOOD SPECIMENOrdering Facility: [facility] Address:[address] [place], [place] [address]Performed By: #### 16533-8 ####[facility] LABIA [id number] [place], [place] [address]Tehtrkoav (Bld) [#/Vol]0.57 10*3/uLNormal<0.87[facility] on above:Order Comment: Specimen Type: BLOOD SPECIMENOrdering Facility: [facility] Address:[address] [place], [place] [address]Performed By: #### 58923- 8 ####[facility] LABIA [id number] [place], [place] [address]Iokufayhs/100 WBC (Bld)6.9 %NormalUniversity Hospitals TriPoint Medical Center on above:Order Comment: Specimen Type: BLOOD SPECIMENOrdering Facility: [facility] Address:[address] [place], [place] [address]Performed By: #### 25859-5 ####[facility] LABIA [id number] [place], [place] [address]Kqvyizgfnvc (Bld) [#/Vol]5.89 10*3/uLNormal1.45-7.50[facility] on above:Order Comment: Specimen Type: BLOOD SPECIMENOrdering Facility: [facility] Address:[address] [place], [place] [address]Performed By: #### 98344-2 ####[facility] LABIA [id number] [place], [place] [address]Azburrbworg/100 WBC (Bld)71.4 %NormalUniversity Hospitals TriPoint Medical Center on above:Order Comment: Specimen Type: BLOOD SPECIMENOrdering Facility: [facility] Address:[address] [place], [place] [address]Performed By: #### 49074-7 ####[facility] LABIA [id number] [place], [place] [address]Vkpefmpxx RBC (Bld) [#/Vol] 10*3/uLNormal<0.01[facility] on above:Order Comment: Specimen Type: BLOOD SPECIMENOrdering Facility: [facility] Address:[address] [place], [place] [address]Performed By: #### 41378-8 ####[facility] LABCLIA [id number] [place], [place] [address]Vabrzeeet RBC/100 WBC (Bld) [Ratio]0.0 /100 WBCNormal [facility] on above:Order Comment: Specimen Type: BLOOD SPECIMENOrdering Facility: [facility] Address:[address] [place], [place] [address]Performed By: #### 44359-0 ####[facility] LABIA [id number] [place], [place] [address]Buufmjaz mean volume (Bld) [Entitic vol]8.9 fLLow9.0-12.7CCinc[facility] on above:Order Comment: Specimen Type: BLOOD SPECIMENOrdering Facility: [facility] Address:[address] [place], [place] [address]Performed By: #### 01497-1 ####[facility] LABCLIA [id number] [place], [place] [address]Avqgugzes (Bld) [#/Vol]274 10*3/gPOctnua476-699VykwgdnuzUniversity Hospitals TriPoint Medical Center on above:Order Comment: Specimen Type: BLOOD SPECIMENOrdering Facility: [facility] Address:[address] [place], [place] [address]Performed By: #### 53424-0 ####[facility] LABIA [id number] [place], [place] [address]OKC (Bld) [#/Vol]4.82 10*6/uLNormal4.20-6.00[facility] on above: Order Comment: Specimen Type: BLOOD SPECIMENOrdering Facility: [facility] Address:[address] [place], [place] [address]Performed By: #### 20898- 8 ####[facility] LABCLIA [id number] [place], [place] [address]DTC (Bld) [#/Vol]8.24 10*3/uLNormal3.70-11.00[facility] on above:Order Comment: Specimen Type: BLOOD SPECIMENOrdering Facility: [facility] Address:[address] [place], [place] [address]Performed By: #### 63033-9 ####[facility] LABIA [id number] [place], [place] [address]XBT SerPl-mCncon 49-09-2816Jeidddrdouhwdxow Ag [Mass/Vol]2.6 ng/mLNormal<=2.9ClevelAtrium Health MercyComment on above:Order Comment: Specimen Type: BLOOD SPECIMENOrdering Facility: [facility] Address:[address] [place], [place] [address]Result Comment: Carcinoembryonic antigen test is used as an aid in monitoring response to treatmentor recurrence in patients with established colorectal, breast, lung, prostatic, pancreatic, and ovarian carcinomas. Clinical correlation is required.The Carcinoembryonic antigen test was performed using the Edy Sallie Unicel DXI paramagnetic particle chemiluminescent immunoassay method. Results obtained with different assay methods or kits cannot be used interchangeably.Performed By: #### 2039-6 ####[facility] LABCLIA [id number] [place] [address] [place] STATES OF AMERICACNCNPATEDon 68-86-1359CMNZGSVXODkpvwcNgvzzdgoc Clinic [place] CNOVon 37-87-1312YKRFWlmhtcLmuokqqxo Clinic ClevelandCNOVSPon 65-92-7138NFKWSC NormalMartins Ferry HospitalCNPNon 82-03-1280DQHQVqtzfkFbevonixk Clinic ClevelandComprehensive metabolic 2000 panelOrdered By: Bertin Key on 10-18-2024 Albumin [Mass/Vol]4.4 g/dL3.9 - 4.9 g/dLHickory Valley ClinicALP [Catalytic activity/Vol]88 U/L38 - 113 U/LCleveland ClinicALT [Catalytic activity/Vol]9 U/L Low10 - 54 U/LCleveland ClinicAnion gap [Moles/Vol]11 mmol/L8 - 15 mmol/L [facility] HospitalAST [Catalytic activity/Vol]11 U/LLow14 - 40 U/LCleveland [facility] Bilirubin [Mass/Vol]0.5 mg/dL0.2 - 1.3 mg/dLOhiohealth Hardin Memorial HospitalCalcium [Mass/Vol] 9.3 mg/dL8.5 - 10.2 mg/dLOhiohealth Hardin Memorial HospitalChloride [Moles/Vol]103 mmol/L98 - 107 mmol/LCleveland ClinicCO2 [Moles/Vol]24 mmol/L22 - 30 mmol/LCleveland [facility] Creatinine [Mass/Vol]0.73 mg/dL0.73 - 1.22 mg/dLOhiohealth Hardin Memorial HospitalGFR/1.73 sq M.predicted among non-blacks MDRD (S/P/Bld) [Vol rate/Area]100 mL/min/{1.73_m2}- PINTwin City [facility] on above:Estimated Glomerular Filtration Rate (eGFR) is calculated using the 2020 CKD-EPI creatinine equation. This equation utilizes serum creatinine, sex, and age as parameters. The creatinine assay has traceable calibration to isotope dilution-mass spectrometry. Refer to KDIGO guidelines for clinical interpretation. In patients with unstable renal function, e.g. those with acute kidney injury, the eGFRmay not accurately reflect actual GFR.Glucose [Mass/Vol]132 mg/jJMnsr75 - 99 mg/dLOhio [facility] Hospital on above:The [place] Diabetes Association (ADA) provides guidance for cutoff [...] Standards of Medical Care in Diabetes 2016, [place] [employer]. Diabetes Care. 2016.39(Suppl 1). Interpretation and review of laboratory resultsAbnormalCleveland ClinicPotassium [Moles/Vol]3.9 mmol/L3.7 - 5.1 mmol/LCwhite hospital ClinicProtein [Mass/Vol]6.9 g/dL 6.3 - 8.0 g/dLSelect Medical [facility] Clinic Rehabilitation Hospital, Beachwoododium [Moles/Vol]138 mmol/L136 - 144 mmol/L [facility] HospitalUrea nitrogen [Mass/Vol]11 mg/dL9 - 24 mg/dLSelect Medical Ohiohealth Rehabilitation HospitalComprehensive metabolic 2000 panelon 49-32-0955Wedyndh [Mass/Vol]4.4 g/dLNormal3.9-4.9CCincinnati [facility] on above:Order Comment: Specimen Type: BLOOD SPECIMENOrdering Facility: [facility] Address:[address] [place], [place] [address] [id number] By: #### 92114- 8 ####[facility] LABCLIA [id number] [place] [address]IVI [Catalytic activity/Vol]88 U/EJmcreq20-346IswlhidkwUniversity Hospitals TriPoint Medical Center on above:Order Comment: Specimen Type: BLOOD SPECIMENOrdering Facility: [facility] Address:[address] [place], [place] [address]Performed By: #### 79055-2 ####[facility] LABCLIA [id number] [place], [place] [address]IHT [Catalytic activity/Vol]9 U/OMpc48-17KnqxftbuuUniversity Hospitals TriPoint Medical Center on above:Order Comment: Specimen Type: BLOOD SPECIMENOrdering Facility: [facility] Address:[address] [place], [place] [address]Performed By: #### 24670- 8 ####[facility] LABCLIA [id number] [place], [place] [address]Dtfde gap [Moles/Vol]11 mmol/LNormal8-15[facility] on above:Order Comment: Specimen Type: BLOOD SPECIMENOrdering Facility: [facility] Address:[address] [place], [place] [address]Performed By: #### 50249-7 ####[facility] LABCLIA [id number] [place], [place] [address]PBM [Catalytic activity/Vol]11 U/IOdg68-50UqvsjaclrUniversity Hospitals TriPoint Medical Center on above:Order Comment: Specimen Type: BLOOD SPECIMENOrdering Facility: [facility] Address:[address] [place], [place] [address]Performed By: #### 77740-3 ####[facility] LABCLIA [id number] JOHANNY KURTGERMANVETERANS HEALTH ADMINIST[facility] [place] [address] Bilirubin [Mass/Vol]0.5 mg/dLNormal0.2-1.3CCincinnati [facility]rin[facility] Hospital on above:Order Comment: Specimen Type: BLOOD SPECIMENOrdering Facility: [facility] Address:[address] [place], [place] [address]Performed By: #### 59973-5 ####[facility] LABCLIA [id number] JOHANNY KURTGERMANVETERANS HEALTH ADMINISTRATION [facility] [place], [place] [address]Bsrffhn [Mass/Vol]9.3 mg/dLNormal8.5-10.2CCincinnati [facility] on above:Order Comment: Specimen Type: BLOOD SPECIMENOrdering Facility: [facility] Address:[address] [place], [place] [address]Performed By: #### 20921-9 ####[facility] LABCLIA [id number] [place], [place] [address]Mkviumpn [Moles/Vol]103 mmol/TIhriss92-451EfrdfvoomUniversity Hospitals TriPoint Medical Center on above: Order Comment: Specimen Type: BLOOD SPECIMENOrdering Facility: [facility] Address:[address] [place], [place] [address]Performed By: #### 20778- 8 ####[facility] LABCLIA [id number] [facility] [place], [place] [address]QD5 [Moles/Vol]24 mmol/OSvcknr09-70WmowwpzonUniversity Hospitals TriPoint [facility] Center on above:Order Comment: Specimen Type: BLOOD SPECIMENOrdering Facility: [facility] Address:[address] [place], [place] [address]Performed By: #### 57600-1 ####[facility] LABCLIA [id number] [place], [place] [address]Txdltzfzmi [Mass/Vol]0.73 mg/dL Normal0.73-1.22[facility] on above:Order Comment: Specimen Type: BLOOD SPECIMENOrdering Facility: [facility] Address:[address] [place], [place] [address]Performed By: #### 21680-8 ####[facility] LABCLIA [id number] [facility]YR[facility] [place], [place] [address]Mzzfnbzoxz and Glomerular filtration rate.predicted panel (S/P/Bld)100 mL/min/1.73m???Normal>=60[facility] on above:Order Comment: Specimen Type: BLOOD SPECIMENOrdering Facility: [facility] Address:[address] [facility] [place], [place] [address]Niwbqs Comment: Estimated Glomerular Filtration Rate (eGFR) is calculated using the 2020 CKD-EPI creatinine equation. This equation utilizes serum creatinine, sex, and age as parameters. The creatinine assay has traceable calibration to isotope dilution- mass spectrometry. Refer to KDIGO guidelines for clinical interpretation. In patients with unstable renal function, e.g. those with acute kidney injury, the eGFR may not accurately reflect actual GFR.Performed By: #### 87867-0 ####[facility] LABCLIA [id number] [place], [place] [address]Gaxmwhx [Mass/Vol]132 mg/iOCfzu82-21ObpwjrfwiUniversity Hospitals TriPoint Medical Center on above:Order Comment: Specimen Type: BLOOD SPECIMENOrdering Facility: [facility] Address:[address] [place], [place] [address]Amveta Comment: The [place] Diabetes Association (ADA) provides guidance for cutoff values for fasting glucose and random glucose. The ADA defines fasting as no caloric intake for at least 8 hours. Fasting plasma glucose results between 100 to 125 mg/dL indicate increased risk for diabetes (prediab etes).Fasting plasma glucose results greater than or equal to 126 mg/dL meet the criteria for diagnosis of diabetes. In the absence of unequivocal hyperglycemia, results should be confirmed by repeattesting. In a patient with classic symptoms of hyperglycemia or hyperglycemic crisis, random plasmaglucose results greater than or equal to 200 mg/dL meet the criteria for diagnosis of diabetes.Reference: Standards of Medical Care in Diabetes 2016, [place] Diabetes Association. Diabetes Care. 2016.39(Suppl 1).Performed By: #### 41113-5 ####[facility] LABCLIA [id number] [place], [place] [address]Gotpcyjfv [Moles/Vol]3.9 mmol/LNormal3.7-5.1CCincinnati [facility]rin[facility] Hospital on above:Order Comment: Specimen Type: BLOOD SPECIMENOrdering Facility: [facility] Address:[address] [place], [place] [address]Performed By: #### 58450-7 ####[facility] LABCLIA [id number] [place], [place] [address]Vvnlesh [Mass/Vol]6.9 g/dLNormal6.3-8.0[facility] on above:Order Comment: Specimen Type: BLOOD SPECIMENOrdering Facility: [facility] Address:[address] [place], [place] [address]Performed By: #### 08925- 8 ####[facility] LABCLIA [id number] [place], [place] [address]Xvdlnq [Moles/Vol]138 mmol/ONxdkhj899-841UbpxckgflUniversity Hospitals TriPoint Medical Center on above:Order Comment: Specimen Type: BLOOD SPECIMENOrdering Facility: [facility] Address:[address] [place], [place] [address]Performed By: #### 94011-4 ####[facility] LABCLIA [id number] [place], [place] [address]Hmln nitrogen [Mass/Vol]11 mg/dLNormal9-24[facility] on above:Order Comment: Specimen Type: BLOOD SPECIMENOrdering Facility: [facility] Address:[address] [place], [place] [address]Performed By: #### 00121-0 ####[facility] LABCLIA [id number] [place], [place] [address]KBEAkc 88-81-4687UURMBcqodfXjwijlzzo Clinic ClevelandCNOV on 67-85-0431PSIEJzjptiTfrwztlde Clinic ClevelandPATHOLOGY REQUEST FOR LAB DARIN on 40-06-4770FAALMTBTB REQUEST FOR LAB CORPEllett Memorial HospitalComment on above:See report. Scanned copy available in EMR.PATHOLOGY GI SPECIMENCleveland Clinic FoundationNo Panel InformationOrdered By: Adonay Clemente on 09-24-2024 Miscellaneous Pathology TestSee Fisher-Titus Medical CenterComment on above:See report. Scanned copy available in EMR.Pathology Request for Lab Corpon 50-27-7526Uohkfgbfa Request for Lab CorpNormCommunity Hospital Physician GroupComment on above:Order Comment: PATHOLOGY GI SPECIMENResult Comment: See report. Scanned copy available in EMR. PERFORMED BY: [facility] [address] [place] [address] PATHOLOGIST SUPERVISOR [employer] GALILEA CHAMPION M.D.Performed By: #### PATH TO [facility] #### [facility] [address] [place] [address] USACBC (INCLUDES DIFF/PLT)on 31-66-8886Vzcxaszap (Bld) [#/Vol]0.024 10*3/uLNormal0-200Quest DiagnosticsComment on above:Performed By: #### 6399, 67777 #### [facility]ostics[facility] [address] [place], [place] [address] [employer]el Locomotive Crane Operator: Michelle Otero #### 7600 #### [facility] [address], [address] [place] [address] [employer]ocomotive Crane Operator: Robles Chase MDBasophils/100 WBC (Bld)0.3 %NormalQuest DiagnosticsComment on above:Performed By: #### 6399, 60805 #### [facility] [address] [place] [address] [employer]el [employer]ocomotive Crane Operator: Michelle Otero #### 7600 #### [facility] [address], [address] [place] [address] [employer]otive Crane Operator: Robles Chase MDEosinophils (Bld) [#/Vol]0.208 10*3/uLNormal 15-500Quest DiagnosticsComment on above:Performed By: #### 6399, 37307 #### [facility] [address] [place], [place] [address] [employer]ocomotive Crane Operator: Michelle Otero #### 7600 #### [facility] [address], [address] [place] [address] [employer]el Locomotive Crane Operator: Robles SHAHosinophils/100 WBC (Bld)2.6 %NormalQuest DiagnosticsComment on above:Performed By: #### 6399, 64947 #### [facility] [address] [place] [address] [employer]ocom[employer] Crane Operator: Michelle Otero #### 7600 #### [facility] [address], [address] [place] [address] [employer] Crane Operator: Robles Chase MDErythrocyte distribution width (RBC) [Ratio] 13.1 %Zkdcxy60.0-15.0Quest DiagnosticsComment on above:Performed By: #### 6399, 77[address] #### [facility] [place]ostics[place] [address] [employer]el Locom[employer] Crane Operator: Michelle Otero #### 7600 #### [facility] [address], [address] [place] [address] [employer]ocomotive Crane Operator: Robles Chase MDHematocrit (Bld) [Volume fraction]43.3 %Normal 38.5-50.0Quest DiagnosticsComment on above:Performed By: #### 6399, 62558 #### [facility]ostics[place] [address] [employer] Crane Operator: Michelle Otero #### 7600 #### [facility] [address], [address] [place] [address] [employer]el [employer]ocomotive Crane Operator: Robles Chase MDHemoglobin (Bld) [Mass/Vol]14.6 g/dLNormal 13.2-17.1Quest DiagnosticsComment on above:Performed By: #### 6399, 23953 #### [facility] [address] [place] [address] [employer]el Locomotive Crane Operator: Michelle Otero #### 7600 #### [facility] [address], [address] [place] [address] [employer]otive Crane Operator: Robles Chase MDLymphocytes (Bld) [#/Vol]1.64 10*3/uLNormal 850-3900Quest DiagnosticsComment on above:Performed By: #### 6399, 19387 #### [facility] [address] [place] [address] [employer]el L[employer]otive Crane Operator: Michelle Otero #### 7600 #### [facility] [address], [address] [place] [address] [employer]el Locomotive Crane Operator: Robles Chase MDLymphocytes/100 WBC (Bld)20.5 %NormalQuest DiagnosticsComment on above:Performed By: #### 6399, 18043 #### [facility] [address] [place], [place] [address] [employer]el Locomotive Crane Operator: Michelle Otero #### 7600 #### [facility] [address], [address] [place] [address] [employer]el L[employer]otive Crane Operator: Robles Chase MDMCH (RBC) [Entitic mass]30.9 ltLmrkie08.0-33.0 Quest DiagnosticsComment on above:Performed By: #### 6399, 52430 #### [facility] [address] [place] [address] [employer]el Locomotive Crane Operator: Michelle Otero #### 7600 #### [facility] [address], [address] [place], [place] [address] Diesel Locomotive Crane Operator: Robles Chase MDMCHC (RBC) [Mass/Vol]33.7 g/mPBzrniy62.0-36.0 Quest DiagnosticsComment on above:Result Comment: For adults, a slight decrease in the calculated MCHC value (in the range of 30 to 32 g/dL) is most likely not clinically significant; however, it should be interpreted with caution in correlation with other red cell parameters and the patient's clinical condition.Performed By: #### 6399, 25315 #### [facility] [address] [place] [address] [employer]el Locomotive Crane Operator: Michelle Otero #### 7600 #### [facility] [address], [address] [place] [address] [employer]el Locomotive Crane Operator: Robles Chase MDMCV (RBC) [Entitic vol]91.5 gIWheuuj54.0-100.0 Quest DiagnosticsComment on above:Performed By: #### 6399, 31766 #### [facility] [address] [place] [address] [employer]el Locomotive Crane Operator: Michelle Otero #### 7600 #### [facility] [place] [address], [address] [place] [address] [employer]el Locomotive Crane Operator: Robles Chase MDMonocytes (Bld) [#/Vol]0.696 10*3/uLNormal 200-950Quest DiagnosticsComment on above:Performed By: #### 6399, 18623 #### [facility] [address] [place] [address] [employer]el Locomotive Crane Operator: Michelle Otero #### 7600 #### [facility] [place] [address] [address] [place] [address] [employer]el Locomotive Crane Operator: Robles Chase MDMonocytes/100 WBC (Bld)8.7 %NormalQuest DiagnosticsComment on above:Performed By: #### 6399, 05087 #### [facility] [address] [place] [address] Diesel Locomotive Crane Operator: Michelle Otero #### 7600 #### [facility] [place] [address], [address] [place] [address] Diesel Locomotive Crane Operator: Robles Chase MDNeutrophils (Bld) [#/Vol]5.432 10*3/uLNormal 1500-7800Quest DiagnosticsComment on above:Performed By: #### 6399, 93381 #### [facility] [address] [place] [address] Diesel Locomotive Crane Operator: Michelle Otero #### 7600 #### [facility] [place] [address], [address] [place] [address] Diesel Locomotive Crane Operator: Robles Chase MDNeutrophils/100 WBC (Bld)67.9 %NormalQuest DiagnosticsComment on above:Performed By: #### 6399, 02198 #### [facility] [address] [place] [address] Diesel Locomotive Crane Operator: Michelle Otero #### 7600 #### [facility] [place] [address], [address] [place] [address] Diesel Locomotive Crane Operator: Robles CASTILLOlatekaushal mean volume (Bld) [Entitic vol]9.1 fL Normal7.5-12.5Quest DiagnosticsComment on above:Performed By: #### 6399, 74127 #### [facility] [address] [place] [address] [employer]el Locomotive Crane Operator: Michelle Otero #### 7600 #### [facility] [place] [address], [address] [place] [address] [employer]el Locomotive Crane Operator: Robles Chase MDPlatelets (Bld) [#/Vol]305 10*3/uLNormal 140-400Quest DiagnosticsComment on above:Performed By: #### 6399, 40017 #### [facility] [address] [place], [place] [address] [employer] Crane Operator: Michelle Otero #### 7600 #### Quest [facility] [place] [address], [address] [place] [address] [employer] Crane Operator: Robles Chase MDRBC (Bld) [#/Vol]4.73 10*6/uLNormal4.20-5.80 [facility] DiagnosticsComment on above:Performed By: #### [id number], 22161 #### [facility] [address] [place] [address] [employer]ocom[employer] Crane Operator: Michelle Otero #### 7600 #### [facility] [address], [address] [place] [address] [employer] Operator: Robles Chase MDWBC (Bld) [#/Vol]8.0 10*3/uLNormal3.8-10.8 [facility] DiagnosticsComment on above:Performed By: #### [id number], 43974 #### [facility] [address] [place] [address] [employer] Cr[employer] Operator: Michelle Otero #### 7600 #### [facility] [address], [address] [place] [address] [employer]el [employer] Crane Operator: Robles Chase [facility]AHOMPREHENSIVE METABOLIC PANELon 09-21-2024 Albumin [Mass/Vol]4.0 g/dLNormal3.6-5.1Quest DiagnosticsComment on above: Performed By: #### [id number], 17391 #### [facility] [address] [place] [address] [employer] Crane Operator: Michelle Otero #### 7600 #### [facility] [address], [address] [place] [address] [employer] Crane Operator: Robles Chase MDAlbumin/Globulin [Mass ratio]1.7 {ratio}Normal 1.0-2.5Quest DiagnosticsComment on above:Performed By: #### [id number], 69590 #### [facility] [address] [place] [address] [employer] Crane Operator: Michelle Otero #### 7600 #### [facility] [address], [address] [place] [address] [employer] Cr[employer] Operator: Robles Chase MDALP [Catalytic activity/Vol]65 U/MDxsahl96-593 [facility] DiagnosticsComment on above:Performed By: #### [id number], 37261 #### [facility] [address] [place] [address] [employer] Crane Operator: Michelle Otero #### 7600 #### [facility] [address], [address] [place] [address] [employer] Operator: Robles Chase MDALT [Catalytic activity/Vol]9 U/LNormal9-46 [facility] DiagnosticsComment on above:Performed By: #### 6399, 57578 #### [facility] [address] [place] [address] [employer] Cr[employer] Operator: Michelle Otero #### 7600 #### [facility] [address], [address] [place] [address] [employer] Operator: Robles Chase MDAST [Catalytic activity/Vol]13 U/FQwstbs31-14 [facility] DiagnosticsComment on above:Performed By: #### [id number], 69892 #### [facility] [address] [place] [address] [employer] Cr[employer] Operator: Michelle Otero #### 7600 #### [facility] [place] [address] [employer] Operator: Robles Chase MDBilirubin [Mass/Vol]0.4 mg/dLNormal0.2-1.2 [facility] DiagnosticsComment on above:Performed By: #### 6399, 97815 #### [facility] [address] [place], [place] [address] [employer] Locom[employer] Crane Operator: Michelle Otero #### 7600 #### [facility] [place] [address] [employer] Operator: Robles Chase MDCalcium [Mass/Vol]8.7 mg/dLNormal8.6-10.3Quest DiagnosticsComment on above:Performed By: #### 6399, 64373 #### [facility] [address] [place] [address] [employer] Cr[employer] Operator: Michelle Otero #### 7600 #### [facility] [address], [address] [place] [address] [employer]ocom[employer] Crane Operator: Robles Chase MDChloride [Moles/Vol]108 mmol/XTrqerr68-936 Quest DiagnosticsComment on above:Performed By: #### 6399, 45870 #### [facility] [address] [place], [place] [address] [employer]ocom[employer] Crane Operator: Michelle Otero #### 7600 #### [facility] [address], [address] [place] [address] [employer]el Locomotive Crane Operator: Robles LESLIEO2 [Moles/Vol]25 mmol/PPqofyl53-05Wahdh DiagnosticsComment on above:Performed By: #### 6399, 43913 #### [facility] [address] [place] [address] [employer] Cr[employer] Operator: Michelle Otero #### 7600 #### [facility] [address], [address] [place] [address] [employer]el Locom[employer] Crane Operator: Robles LESLIEreatinine [Mass/Vol]0.68 mg/dLLow0.70-1.35 Quest DiagnosticsComment on above:Performed By: #### 6399, 59977 #### [facility] [address] [place] [address] [employer] Operator: Michelle Otero #### 7600 #### [facility] [address], [address] [place] [address] [employer] Operator: Robles Chase MDGFR/1.73 sq M.predicted among non-blacks MDRD (S/P/Bld) [Vol rate/Area]103 mL/min/{1.73_m2}Normal> OR = 60[facility] Comment on above:Performed By: #### [id number], 88346 #### [facility] [address] [place] [address] [employer] Operator: Michelle Otero #### 7600 #### [facility] [address], [address] [place] [address] [employer]ane Operator: Robles Chase MDGlobulin (S) [Mass/Vol]2.3 g/dLNormal1.9-3.7 Quest DiagnosticsComment on above:Performed By: #### 6399, 75153 #### [facility] [address] [place] [address] [employer] Operator: Michelle Otero #### 7600 #### [facility] [address], [address] [place] [address] [employer] Operator: Robles Chase MDGlucose [Mass/Vol]95 mg/cUTmehnw22-12Oancr DiagnosticsComment on above:Result Comment: Fasting reference intervalPerformed By: #### 6399, 28532 #### [facility] [address] [place] [address] [employer] Cr[employer] Operator: Michelle Otero #### 7600 #### [facility] [address], [address] [place] [address] [employer]el [employer]ocom[employer] Crane Operator: Robles Chase MDPotassium [Moles/Vol]4.4 mmol/LNormal3.5-5.3 [facility] DiagnosticsComment on above:Performed By: #### 6399, 76015 #### [facility] [address] [place] [address] [employer] Operator: Michelle Otero #### 7600 #### [facility] [address], [address] [place] [address] [employer] Operator: Robles Chase MDProtein [Mass/Vol]6.3 g/dLNormal6.1-8.1Quest DiagnosticsComment on above:Performed By: #### 6399, 14559 #### [facility] [address] [place] [address] [employer] Cr[employer] Operator: Michelle Otero #### 7600 #### [facility] [address], [address] [place] [address] [employer]el [employer]ocom[employer]ane Operator: Robles Chase MDSodium [Moles/Vol]140 mmol/XSnmkro302-008Hhgba DiagnosticsComment on above:Performed By: #### 6399, 56569 #### [facility] [address] [place] [address] [employer] Crane Operator: Michelle Otero #### 7600 #### [facility] [address], [address] [place] [address] [employer] Crane Operator: Robles Chase MDUrea nitrogen [Mass/Vol]14 mg/dLNormal7-25 Quest DiagnosticsComment on above:Performed By: #### 6399, 58896 #### [facility] [address] [place], [place] [address] [employer] Cr[employer] Operator: Michelle Otero #### 7600 #### [facility] [address], [address] [place] [address] [employer]ocom[employer] Crane Operator: Robles Chase MDUrea nitrogen/Creatinine [Mass ratio]21 mg/mg Normal6-22Quest DiagnosticsComment on above:Performed By: #### 6399, 25339 #### [facility] [address] [place] [address] [employer] Cr[employer] Operator: Michelle Otero #### 7600 #### [facility] [address], [address] [place] [address] [employer]el Locom[employer] Crane Operator: Robles Chase MDLIPID PANEL, [facility] 06-70-5296Cpxepbawmaz [Mass/Vol]154 mg/dLNormal<200Quest DiagnosticsComment on above:Order Comment: FASTING:YES PATIENT UNABLE TO VOID; ADVISED TO RETURN FOR COLLECTION. FASTING: YESPerformed By: #### 6399, 69895 #### [facility] [address] [place] [address] [employer] Crane Operator: Michelle Otero #### 7600 #### [facility] [address], [address] [place] [address] [employer]el [employer]ocom[employer] Crane Operator: Robles Chase MDCholesterol in HDL [Mass/Vol]52 mg/dLNormal> OR = 40Quest DiagnosticsComment on above:Order Comment: FASTING:YES PATIENT UNABLE TO VOID; ADVISED TO RETURN FOR COLLECTION. FASTING: YESPerformed By: #### 6399, 39070 #### [facility] [address] [place] [address] [employer] Operator: Michelle Otero #### 7600 #### [facility] [address], [address] [place] [address] [employer]el Locomotive Crane Operator: Robles LESLIEholesterol in LDL [Mass/Vol]86 mg/dLNormal Quest DiagnosticsComment on above:Order Comment: FASTING:YES PATIENT UNABLE TO VOID; ADVISED TO RETURN FOR COLLECTION. FASTING: YESResult Comment: Reference range: <100 Desirable range <100 mg/dL for primary prevention; <70 mg/dL for patients with CHD or diabetic patients with > or = 2 CHD risk factors. LDL-C is now calculated using the Janae calculation, which is a validated novel method providing better accuracy than the Friedewald equation in the estimation of LDL-C. Art SS et al. DARRIN. 2013;310(19): 0942-8895 (http://education.Telebit/faq/PTB033)Performed By: #### 6399, 15781 #### [facility] [address] [place] [address] [employer]el Locom[employer] Crane Operator: Michelle Otero #### 7600 #### [facility] [place] [address] [facility], [address] [place] [address] Diesel Locomotive Crane Operator: Robles Parekhstantwon.total/Cholesterol in HDL [Mass ratio]3.0 {ratio}Normal<5.0Quest DiagnosticsComment on above:Order Comment: FASTING:YES PATIENT UNABLE TO VOID; ADVISED TO RETURN FOR COLLECTION. FASTING: YESPerformed By: #### 6399, 41264 #### [facility] [address] [place] [address] [employer]el Locomotive Crane Operator: Michelle Otero #### 7600 #### [facility] [place] [address] [facility], [address] [place], [place] [address] Diesel Locomotive Crane Operator: Robles GRAY HDL ZPWQLZEPGEO108 mg/dL (calc)Normal<130 Quest DiagnosticsComment on above:Order Comment: FASTING:YES PATIENT UNABLE TO VOID; ADVISED TO RETURN FOR COLLECTION. FASTING: YESResult Comment: For patients with diabetes plus 1 major ASCVD risk factor, treating to a non-HDL-C goal of <100 mg/dL (LDL-C of <70 mg/dL) is considered a therapeutic option.Performed By: #### 6399, 26397 #### [facility] [place] [address] [employer]el Locomotive Crane Operator: Michelle Otero #### 7600 #### [facility] [address], [address] [place] [address] [employer]el Locomotive Crane Operator: Robles Chase MDTriglyceride [Mass/Vol]70 mg/dLNormal<150Quest DiagnosticsComment on above:Order Comment: FASTING:YES PATIENT UNABLE TO VOID; ADVISED TO RETURN FOR COLLECTION. FASTING: YESPerformed By: #### 6399, 84498 #### [facility] [address] [place] [address] [employer]el [employer]ocom[employer] Cr[employer] Operator: Michelle Otero #### 7600 #### [facility] [address], [address] [place] [address] [employer]el Locomotive Crane Operator: Robles Chase MDPSA, TOTALon 35-27-2207OKU, TOTAL0.83 ng/mL Normal< OR = 4.00Quest DiagnosticsComment on above:Result Comment: The total PSA value from this assay system is standardized against the WHO standard. The test result will be approximately 20% lower when compared to the equimolar-standardized total PSA (Edy [place]). Comparison of serial PSA results should be interpreted with this fact in mind. This test was performed using the Siemens chemiluminescent method. Values obtained from different assay methods cannot be used interchangeably. PSA levels, regardless of value, should not be interpreted as absolute evidence of the presence or absence of disease.Performed By: #### 6399, 49798 #### [facility] [address] [place] [address] [employer] Crane Operator: Michelle Otero #### 7600 #### [facility] [address], [address] [place] [address] [employer]el Locomotive Crane Operator: Robles Chase MDLaboratory - Hematology and Cell countson 33-00-5027IdB2g (Bld) [Mass fraction]5.3 %[facility]OM[facility] HealthcareNo Panel Informationon 17-97-5806Mjhhcisnfcjwjq and review of laboratory resultsNoRalph H. Johnson [facility] HealthcareCALCIUMon 66-09-3518Jwwitxz [Mass/Vol]9.5 mg/dLNormal8.6-10.5[facility] HospitalComment on above:Performed By: #### MGO, CHM7, LABHSTI1, IPB, [place] #### [place] [facility] (DEFAULT) [address] [address]EWR AND ELECTRONIC DIFFon 35-73-8598Vsh Baso Auto<Normal 0.00-0.09[facility] HospitalComment on above:Performed By: #### [id number] #### [facility] (DEFAULT) [address] [address]Hrf Eos Auto<Normal0.00-0.48[facility] HospitalComment on above:Performed By: #### [id number] #### [facility] (DEFAULT) [address] [address]Crhslcief/100 WBC (Bld)0.2 %[facility] HospitalComment on above:Performed By: #### [id number] #### [facility] (DEFAULT) [address] [address]XQHB STATUSElectronic DifferentialNormalOClinton Memorial HospitalComment on above:Performed By: #### [id number] #### U [facility] (DEFAULT) [address] [address]Rdpyjutwugt/100 WBC (Bld)0.1 %NormalCleveland Clinic Akron General Lodi HospitalComment on above:Performed By: #### [id number] #### U [facility] (DEFAULT) [address] [address]Stmmkdzmad (Bld) [Volume fraction]43.7 %Krrtef98.6-48.8[facility] HospitalComment on above:Performed By: #### [id number] #### U [facility] (DEFAULT) [address] [place] [address]Nldzyfxqyp (Bld) [Mass/Vol]14.8 g/nMWkirvz72.4-16.8[facility] HospitalComment on above:Performed By: #### [id number] #### U [facility] (DEFAULT) [address] [place] [address]Ecwhctyq Grans %0.4 %[facility] HospitalComment on above:Performed By: #### [id number] #### U [facility] (DEFAULT) [address] [place] [address]Ftxakdnw Grans Absolute0.06 K/uLNormal<=0.07[facility] HospitalComment on above:Performed By: #### [id number] #### U [facility] (DEFAULT) [address] [place] [address]Zxnmzldrtsl (Bld) [#/Vol]1.83 10*3/uLNormal0.83-3.57[facility] HospitalComment on above:Performed By: #### [id number] #### [facility] (DEFAULT) [address] [place] [address]Fkqwmegiwvn/100 WBC (Bld)11.2 %[facility] HospitalComment on above:Performed By: #### [id number] #### [facility] (DEFAULT) [address] [place] [address]CPU (RBC) [Entitic vol]91.6 pDNlifws60.0-94.5[facility] HospitalComment on above:Performed By: #### [id number] #### [facility] (DEFAULT) [address] [place] [address]Nbgv Cell Hgb31.0 gzHzhjtz64.1-33.3[facility] HospitalComment on above:Performed By: #### TBQ815 #### [facility] (DEFAULT) [address] [place] [address]Pfjc Cell Hgb Conc33.9 g/uSOkhpgu93.9-36.5[facility] HospitalComment on above:Performed By: #### [id number] #### [facility] (DEFAULT) [address] [place] [address] 15[address]Ajlgbpexv (Bld) [#/Vol]1.44 10*3/uLHigh0.24-0.93[facility] HospitalComment on above:Performed By: #### [id number] #### [facility] (DEFAULT) [address] [place] [address] 30371Evaetszul/100 WBC (Bld)8.8 %NormalCleveland Clinic Akron General Lodi HospitalComment on above:Performed By: #### [id number] #### [facility] (DEFAULT) [address] [place] [address] 30000Iovhcleyl RBC0.0 /100 WBCNormal<=0.2[facility] HospitalComment on above:Performed By: #### JHS692 #### U [facility] (DEFAULT) [address] [place] [address] 05672Fditpovu mean volume (Bld) [Entitic vol]9.7 fLNormal8.7-12.3 [facility] HospitalComment on above:Performed By: #### LCW301 #### [facility] (DEFAULT) [address] [place] [address] 49[address]Qftshfzat (Bld) [#/Vol]254 10*3/rPXjxmcu076-320MttlCleveland Clinic [facility] General Lodi HospitalComment on above:Performed By: #### [id number] #### [facility] (DEFAULT) [address] [place] [address]RQI (Bld) [#/Vol]4.77 10*6/uLNormal4.38-5.83[facility] HospitalComment on above:Performed By: #### [id number] #### [facility] (DEFAULT) [address] [place] [address] 10[address]KAX Mglrziebcpwk61.8 %Feovsd51.9-14.3[facility] HospitalComment on above:Performed By: #### [id number] #### [facility] (DEFAULT) [address] [place] [address]Umyg + Bands Auto79.3 %NormalCleveland Clinic Akron General Lodi HospitalComment on above:Performed By: #### [id number] #### [facility] (DEFAULT) [address] [place] [address] 469[address]Bprl + Bands,Absolute Auto12.95 K/uLHigh1.57-6.19[facility] HospitalComment on above:Performed By: #### [id number] #### [facility] (DEFAULT) [address] [place] [address] 52984LZZ (Bld) [#/Vol]16.33 10*3/uLHigh3.73-10.10[facility] HospitalComment on above:Performed By: #### [id number] #### [facility] (DEFAULT) [address] [place] [address]NLRP 7 (LYTES,BUN,CREA,GLUC)on 57-19-9843Wndjw gap [Moles/Vol] 15 mmol/LNormal7-17[facility] HospitalComment on above: Performed By: #### MGO, CHM7, LABHSTI1, IPB, CA #### [facility] (DEFAULT) [address] [place] [address] 08223Bvpoeqvu [Moles/Vol]104 mmol/UJieqpw05-296SlqsCleveland Clinic [facility] General Lodi HospitalComment on above:Performed By: #### MGO, CHM7, LABHSTI1, IPB, CA #### [facility] (DEFAULT) [address] [place] [address] 18418IC1 [Moles/Vol]21 mmol/CKwbxdo68-85UegwCleveland Clinic Ak[facility] General Lodi HospitalComment on above:Performed By: #### MGO, CHM7, LABHSTI1, IPB, CA #### [facility] (DEFAULT) [address] [place] [address]Odhqwaqfwv [Mass/Vol]0.75 mg/dLNormal0.70-1.30[facility] HospitalComment on above:Performed By: #### GRACE H[place], MYKE, TONJA, [place] #### U [facility] (DEFAULT) [address] [place] [address]76[address]yDOC, CKD-EPI, Male>Normal>=60[facility] HospitalComment on above:Result Comment: Reported eGFR is based on the CKD-EPI 2020 equation using creatinine, age, and sex.Performed By: #### GRACE HILL, MYKE, TONJA, [place] #### [place] [facility] (DEFAULT) [address] [place] [address]Jfsdrvu [Mass/Vol]79 mg/uAFypvrc81-43ZpscCleveland Clinic Ak[facility] General Lodi HospitalComment on above:Performed By: #### GRACE H[place], MYKE, TOSINB, CA #### [place] [facility] (DEFAULT) [address] [place] [address] 740[address]Ikwncjjddp [Osmolality]284 mosm/rvCpkdgv273-617MlvrCleveland Clinic Akron General Lodi HospitalComment on above:Performed By: #### [place], MYKE, TOSINB, CA #### [facility] (DEFAULT) [address] [place] [address] 46244Fbemwqynx [Moles/Vol]4.1 mmol/LNormal3.5-5.0[facility] HospitalComment on above:Performed By: #### [place], MYKE, IPB, CA #### [facility] (DEFAULT) [address] [place] [address]Bppzhm [Moles/Vol]136 mmol/EImmghm497-175CemqCleveland Clinic Akron General Lodi HospitalComment on above:Performed By: #### [place], MYKE, IPB, CA #### [facility] (DEFAULT) [address] [place] [address] 640[address]Ymbi nitrogen [Mass/Vol]13 mg/dLNormal7-25OhAvita Health SystemComment on above:Performed By: #### LEWIS HILLM7, CARYL1, IPB, CA #### U [facility] (DEFAULT) [address] [place], [place] [address]Cxbb nitrogen/Creatinine [Mass ratio]17 mg/mgNormalOhio Elyria Memorial HospitalComment on above:Performed By: #### [place]ACE [place], CARYL1, IPB, CA #### U [facility] (DEFAULT) [address] [place] [address] 47436ZGNI SENSITIVITY TROPONIN I - SINGLE ORDERon 84-77-8873qx- Troponin I3 ng/LNormal<53[facility] HospitalComment on above:Order Comment: Acute Coronary Syndrome (ACS): Initial Evaluation and Management: [email or web address]/Acute%20Coronary%20Sy ndrome.[email or web address] By: #### [place]ACE [place], MYKE, TOSINB, CA #### [facility] (DEFAULT) [address] [place] [address] 560[address]ZEMSBRYPPxv 20-40-5066Unndzpxds [Mass/Vol]1.8 mg/dLNormal 1.6-2.6OhAvita Health SystemComment on above:Performed By: #### LEWIS HILLMPamela, GAYATRIHSVIPIN1, IPB, CA #### U [facility] (DEFAULT) [address] [place] [address] 15[address]SHOUZSOZG, INORGANICon 15-51-5543Aoqcrvbdgrb8.8 mg/dLNormal 2.2-4.6[facility] HospitalComment on above:Performed By: #### MGJessica, LEWISM7, LABHSTI1, IPB, CA #### [facility] (DEFAULT) [address] [place] [address]BD LSPINE 2_3 VIEWSon 52-11-4629CT LSPINE 2_3 VIEWS EXAMINATION: XR LSPINE 2_3 VIEWS HISTORY: Pain ; chronic low [...] Electronically authenticated by: BRANDY NIEVES Date: 2021-09-11 09:36[facility]XR ELBOW RT MIN 3 VIEWSon 09-22-5634HQ ELBOW RT MIN 3 VIEWS EXAM: XR [...] Electronically authenticated by: TALIA SCHAFFER Date: 2021-07-06 19:49[facility] Vital Signs Date TimeVital SignValuePerforming XxzddtbqiThqvmjhj28-88-8782 10:Body gbwaqp170.7 Shakeel Torres MD Work Phone: [facility]oonSaint [facility]'s Health CenterUhwcpjsnwx46-52-1078 10:040Body mass index (BMI) [Ratio]16.42 kg/d7FlokwRashaun Torres MD Work Phone: [facility]koonSaint Mary's Health CenterAvjbskezza14-36-9780 10:Body tqkcku76.99 kgRashaun Torres MD Work Phone: [facility] HospitalQbejbnqaod09-62-9564 10:040Diastolic blood dzabragl21 mm[Hg]Rashaun Torres MD Work Phone: TykoonSaint [facility] Health CenterPglbioifkx67-15-3997 10:19-0400Heart rate88 /min Rashaun Torres MD Work Phone: NOSaint Mary's Health CenterXfuydmhytn53-82-6485 10:19-7693RjE2% (BldA) [Mass fraction]97 %Rashaun Torres MD Work Phone: NOSaint Mary's Health CenterTolwtaztio75-87-5278 10:19-0400Systolic blood obqscnyu109 mm[Hg]Rashaun Torres MD Work Phone: [place] [address]Lurlqyxfch25-74-3916 12:12-0400Body wgmwla767.6 cmPacc 3 Work Phone: [phone] [address]-05-2025 12:12-0400Body mass index (BMI) [Ratio]18.86 kg/m2Pacc 3 Work Phone: [phone] [address]-05-2025 12:12-0400Body temperature 97.2 [degF]Pacc 3 Work Phone: [phone] [address]-05-2025 12:12-0400Body izoycw96 kg Pacc 3 Work Phone: [phone] [address]-05-[address]25 12:12-0400Diastolic blood mm[Hg]Pacc 3 Work Phone: [phone] [address]-05-2025 12:12-0400Heart rate84 /min Pacc 3 Work Phone: [phone] [address]-05-2025 12:12-0400Respiratory rate 17 /minPacc 3 Work Phone: [phone] [address]-05-2025 12:12-8856KvN0% (BldA) [Mass fraction]96 %Pacc 3 Work Phone: [phone] [address]-05-2025 12:12-0400Systolic blood spsukcsx066 mm[Hg]Pacc 3 Work Phone: [phone] [address]-05-2025 08:45-0400Body tphgzy146.8 cmRichard Santos APRN.SURGICAL SERVICES COORDINATOR Work Phone: [phone])654-312978 [address]05-2025 08:45-0400Body mass index (BMI) [Ratio]19 kg/g4EkyqeekeqRichard Santos WAITER/WAITRESS DINING CAR.SURGICAL SERVICES COORDINATOR Work Phone: [facility]09-05-2025 08:45-0400Body mkjhal26.5 kgRichard Santos WAITER/WAITRESS DINING [employer].SURGICAL SERVICES COORDINATOR Work Phone: [facility]09-05-2025 08:45-0400Diastolic blood lqirhurw67 mm[Hg]Richard Santos WAITER/WAITRESS DINING [employer].SURGICAL SERVICES COORDINATOR Work Phone: [facility]09-05-2025 08:45-0400Heart rate72 /min Richard Santos WAITER/WAITRESS DINING [employer].SURGICAL SERVICES COORDINATOR Work Phone: [facility]09-05-2025 08:45-0400Systolic blood sbpwipap219 mm[Hg]Richard Santos WAITER/WAITRESS DINING [employer].SURGICAL SERVICES COORDINATOR Work Phone: [facility]08-26-2025 09:28-0400Body aqdrpp094.8 Christen Sánchez MD Work Phone: [facility]08-26-2025 09:28-0400Body mass index (BMI) [Ratio]18.22 kg/v7RuikpjHilary Sánchez MD Work Phone: [facility]08-26-2025 09:28-0400Body temperature 97.3 [degF]Hilary Sánchez MD Work Phone: [facility]08-26-2025 09:28-0400Body cdwsuu55.3 kgHilary Sánchez MD Work Phone: [place] [address]-26-2025 09:28-0400Diastolic blood oidbcavk57 mm[Hg]Hilary Sánchez MD Work Phone: [facility]08-26-2025 09:28-0400Heart rate80 /min Hilary Sánchez MD Work Phone: [facility]08-26-2025 09:28-0400Respiratory rate 16 /minAdagwen Sánchez MD Work Phone: [facility]08-26-2025 09:28-3844SmV2% (BldA) [Mass fraction]98 %Hilary Sánchez MD Work Phone: [facility]08-26-2025 09:28-0400Systolic blood clbzrymz357 mm[Hg]Hilary Sánchez MD Work Phone: [facility]08-21-2025 09:13-0400Body temperature 97.5 [degF]Teresa Tucker MD Work Phone: [facility]08-21-2025 09:13-0400Diastolic blood jcefioqt91 mm[Hg]Teresa Tucker MD Work Phone: [facility]08-21-2025 09:13-0400Heart rate74 /min Teresa Tucker MD Work Phone: [facility]08-21-2025 09:13-3460IlH7% (BldA) [Mass fraction]99 %Teresa Tucker MD Work Phone: [facility]08-21-2025 09:13-0400Systolic blood lergyuvo860 mm[Hg]Teresa Tucker MD Work Phone: [facility]08-20-2025 09:50-0400Body gqbmux069.7 Petra Cleaning MD Work Phone: [facility]Opsqjyztit60-17-7579 09:50-0400Body mass index (BMI) [Ratio]17.18 kg/l1YuzeiwAdonay Cleaning MD Work Phone: [facility] HospitalUdhysgscqi59-12-3187 09:50-0400Body fwlxoc40.26 kgAdonay Cleaning MD Work Phone: [facility] HospitalXrvkmqhzre12-69-2958 08:46-0400Diastolic blood ljqqdhwi02 mm[Hg]Rashaun Torres MD Work Phone: 1(313)510-[address] [place], [place] 4441108-11-2025 08:46-0400 Heart rate65 /minRashaun Torres MD Work Phone: [phone])[address]08-11-2025 08:46-0400 Respiratory rate16 /minRashaun Torres MD Work Phone: 1(780)[address] [place], [place] 3364708-11-2025 08:46-0400 SaO2% (BldA) [Mass fraction]96 %Rashaun Torres MD Work Phone: 1(366)[address] [place], [place] 3364708-11-2025 08:46-0400 Systolic blood dgysqcmo404 mm[Hg]Rashaun Torres MD Work Phone: 1(508)[address] [place], [place] 3364708-11-2025 08:01-0400 Body .7 [degF]Rashaun Torres MD Work Phone: 1(341)[address] [place], [place] 3364708-11-2025 08:01-0400 Inhaled oxygen flow rate6 L/minRashaun Torres MD Work Phone: 1(143)[address] [place], [place] 3364708-11-2025 06:09-0400 Body lbanuq821.72 Shakeel Torres MD Work Phone: 1(494)[address] [place], [place] 3364708-11-2025 06:09-0400 Body rmnfwe98.25 kgRashaun Torres MD Work Phone: [phone])[address]08-05-2025 14:13-0400 Body brhujn001.7 Petra Cleaning MD Work Phone: [facility] HospitalFeqnjubhsr24-58-2974 14:13-0400Body mass index (BMI) [Ratio]17.3 kg/h2VqsnwxAdonay Cleaning MD Work Phone: [facility] HospitalWuspcfkjsd23-17-7005 14:13-0400Body .62 kgAdonay Cleaning MD Work Phone: [facility] HospitalSfwacmqupv92-35-7858 09:37-0400Body .8 Christen Sánchez MD Work Phone: [facility] AndersonPvnfbd21-13-0574 09:37-0400Body mass index (BMI) [Ratio]18.18 kg/r7AmxchsHilary Sánchez MD Work Phone: [facility] AndersonUysoow57-90-4684 09:37-0400Body temperature 97 [degF]Hilary Sánchez MD Work Phone: [facility] AndersonHysbkv05-03-1075 09:37-0400Body .2 kgAdagwen Sánchez MD Work Phone: 1(019)117-[address] [place], [place] 9545007-29-2025 09:37-0400Diastolic blood yladecvx22 mm[Hg]Hilary Sánchez MD Work Phone: [facility] AndersonAflvfz28-94-1544 09:37-0400Heart rate91 /min Hilary Sánchez MD Work Phone: [facility] AndersonJwcwlh66-88-4703 09:37-0400Respiratory rate 16 /minAdagwen Sánchez MD Work Phone: 1(431)003-[address] [place], [place] 9545007-29-2025 09:37-9625FtJ2% (BldA) [Mass fraction]98 %Hilary Sánchez MD Work Phone: [facility] AndersonJrhvgb42-91-3761 09:37-0400Systolic blood juvywtov731 mm[Hg]Hilary Sánchez MD Work Phone: [facility] AndersonHvujxq19-53-4080 10:28-0400Body temperature 98.01 [degF]Chair Prabhakar Work Phone: [facility]07-03-2025 10:28-0400Diastolic blood cfctbdme59 mm[Hg]Chair Prabhakar Work Phone: [facility]07-03-2025 10:28-0400Heart rate90 /min Chair Prabhakar Work Phone: [facility]07-03-2025 10:28-0400Respiratory rate 18 /minChair Schuyler Work Phone: [facility]07-03-2025 10:28-6381TlO8% (BldA) [Mass fraction]96 %Chair Schuyler Work Phone: [facility]07-03-2025 10:28-0400Systolic blood oqdjbsha282 mm[Hg]Chair Schuyler Work Phone: [facility]07-01-2025 09:07-0400Body .8 cmAdagwen Sánchez MD Work Phone: [facility] AndersonJjqfbf70-11-4358 09:07-0400Body mass index (BMI) [Ratio]18.18 kg/h0XgykuuHilary Sánchez MD Work Phone: [facility] AndersonZuvpkx16-30-3180 09:07-0400Body temperature 97.3 [degF]Hilary Sánchez MD Work Phone: [facility] AndersonQgyoio52-90-1947 09:07-0400Body ymhdys96.2 kgHilary Sánchez MD Work Phone: [facility] AndersonCdvdhr60-44-3439 09:07-0400Diastolic blood rsokfmsg67 mm[Hg]Hilary Sánchez MD Work Phone: [facility] AndersonUfejqn97-29-8168 09:07-0400Heart rate90 /min Hilary Sánchez MD Work Phone: [facility] AndersonWpcara94-22-0339 09:07-0400Respiratory rate 16 /minAdagwen Sánchez MD Work Phone: [facility] AndersonVwmzye18-45-3997 09:07-6139QfR4% (BldA) [Mass fraction]95 %Hilary Sánchez MD Work Phone: [facility] AndersonXihqgg02-76-6058 09:07-0400Systolic blood pxekivwt124 mm[Hg]Hilary Sánchez MD Work Phone: [facility] AndersonFxptes03-19-9030 11:04-0400Body temperature 98.2 [degF]Chair Schuyler Work Phone: [facility]06-20-2025 11:04-0400Diastolic blood hldewhfi54 mm[Hg]Chair Schuyler Work Phone: [facility]06-20-2025 11:04-0400Heart rate91 /min Chair Schuyler Work Phone: 1(447) 469-4855[address]20-2025 11:04-0400Respiratory rate 16 /minChair Schuyler Work Phone: [facility]06-20-2025 11:04-8592HnK3% (BldA) [Mass fraction]97 %Chair Schuyler Work Phone: [facility]06-20-2025 11:04-0400Systolic blood vsjruxah971 mm[Hg]Chair Schuyler Work Phone: [facility]06-18-2025 09:45-0400Body kkjvka735.8 cmChair Schuyler Work Phone: [facility]06-18-2025 09:45-0400Body mass index (BMI) [Ratio]18.69 kg/u7Bagqf Schuyler Work Phone: [facility]06-18-2025 09:45-0400Body .62 kgChair Schuyler Work Phone: [place] [address]-18-2025 09:13-0400Body mass index (BMI) [Ratio]18.69 kg/m2MARGAUX Monson MD Work Phone: [facility]06-18-2025 09:13-0400Body temperature 97.11 [degF]MARGAUX Monson MD Work Phone: [place] [address]-18-2025 09:13-0400Body cdtvit13.62 kgMARGAUX Monson MD Work Phone: 1(353) 787-598933 [address]18-2025 09:13-0400Diastolic blood ujvjjnig21 mm[Hg]MARGAUX Monson MD Work Phone: [facility]06-18-2025 09:13-0400Heart rate85 /min MARGAUX Monson MD Work Phone: [facility]06-18-2025 09:13-0400Respiratory rate 18 /JenelleMARGAUX Monson MD Work Phone: [facility]06-18-2025 09:13-1312LqT0% (BldA) [Mass fraction]97 %MARGAUX Monson MD Work Phone: [facility]06-18-2025 09:13-0400Systolic blood yrbeqfmx645 mm[Hg]MARGAUX Monson MD Work Phone: [facility]06-18-2025 08:53-0400Body mass index (BMI) [Ratio]18.75 kg/q1SnmrevHilary Sánchez MD Work Phone: [facility] AndersonBgdkrj65-05-6653 08:53-0400Body temperature 97.11 [degF]Hilary Sánchez MD Work Phone: [facility] AndersonEkpftd03-48-2295 08:53-0400Body ewarnc43.8 kgHilary Sánchez MD Work Phone: [facility] AndersonEtlgds52-41-1361 08:53-0400Diastolic blood ptdojlrr14 mm[Hg]Hilary Sánchez MD Work Phone: [facility] AndersonCxcqrs35-18-9840 08:53-0400Heart rate85 /min Hilary Sánchez MD Work Phone: [facility] Djlvjw96-41-2302 08:53-0400Respiratory rate 18 /minHilary Sánchez MD Work Phone: [facility] Pjksvi53-15-2057 08:53-9858XvA1% (BldA) [Mass fraction]97 %Hilary Sánchez MD Work Phone: [facility] AndersonNfdchn47-32-0053 08:53-0400Systolic blood svcehszr436 mm[Hg]Hilary Sánchez MD Work Phone: [facility] AndersonZlbqhu67-46-3294 09:53-0400Body temperature 98.2 [degF]Chair Schuyler Work Phone: [facility]06-06-2025 09:53-0400Diastolic blood utavwalp35 mm[Hg]Chair Schuyler Work Phone: [facility]06-06-2025 09:53-0400Heart rate75 /min Chair Schuyler Work Phone: [facility]06-06-2025 09:53-0400Respiratory rate 18 /minChair Schuyler Work Phone: [facility]06-06-2025 09:53-5703LxG3% (BldA) [Mass fraction]98 %Chair Schuyler Work Phone: [facility]06-06-2025 09:53-0400Systolic blood vvedvfgz043 mm[Hg]Chair Schuyler Work Phone: [facility]06-04-2025 08:37-0400Body mass index (BMI) [Ratio]18.43 kg/r3TqgqtxHilary Sánchez MD Work Phone: [facility] AndersonUngutp49-72-3846 08:37-0400Body temperature 97.81 [degF]Hilary Sánchez MD Work Phone: [facility] AndersonAeiubt97-11-3837 08:37-0400Body yzoipo30.9 kgHilary Sánchez MD Work Phone: [facility] AndersonPltooi27-87-8953 08:37-0400Diastolic blood aifxdmng26 mm[Hg]Hilary Sánchez MD Work Phone: [facility] AndersonBnytsh63-07-6659 08:37-0400Heart rate81 /min Hilary Sánchez MD Work Phone: [facility] AndersonWpbdnc71-97-9678 08:37-0400Respiratory rate 16 /minHilary Sánchez MD Work Phone: [facility] AndersonHmexac21-56-6943 08:37-2612EuL7% (BldA) [Mass fraction]97 %Hilary Sánchez MD Work Phone: [facility] AndersonMkytmv44-82-6337 08:37-0400Systolic blood ipvndiyc915 mm[Hg]Hilary Sánchez MD Work Phone: [facility] AndersonLigqzt46-04-9532 10:14-0400Body temperature 97.81 [degF]Chair Schuyler Work Phone: [facility]05-09-2025 10:14-0400Diastolic blood jrimukrv03 mm[Hg]Chair Schuyler Work Phone: [facility]05-09-2025 10:14-0400Heart rate71 /min Chair Schuyler Work Phone: [facility]05-09-2025 10:14-0400Respiratory rate 16 /minChair Schuyler Work Phone: [facility]05-09-2025 10:14-4332TcL4% (BldA) [Mass fraction]99 %Chair Schuyler Work Phone: [facility]05-09-2025 10:14-0400Systolic blood hxkfuezo321 mm[Hg]Chair [place] Work Phone: [facility]05-07-2025 08:44-0400Body hkkpxi020.8 cmMindarline SINGH-C Work Phone: [facility]05-07-2025 08:44-0400Body mass index (BMI) [Ratio]18.75 kg/x4Tzsvgdarline Up PA-C Work Phone: [facility]05-07-2025 08:44-0400Body temperature 97.39 [degF]Cong Robert PA-C Work Phone: [facility]05-07-2025 08:44-0400Body fudaok34.8 kgMindarline Robert PA-C Work Phone: [facility]05-07-2025 08:44-0400Diastolic blood rstzwmaj85 mm[Hg]Cong Robert PA-C Work Phone: [facility]05-07-2025 08:44-0400Heart rate83 /min Cong Robert PA-C Work Phone: [facility]05-07-2025 08:44-0400Respiratory rate 16 /minMindarline Robert PA-C Work Phone: [facility]05-07-2025 08:44-4099WoL2% (BldA) [Mass fraction]98 %Cong Robert PA-C Work Phone: [facility]05-07-2025 08:44-0400Systolic blood mm[Hg]Cong Robert PA-C Work Phone: [facility]04-23-2025 08:38-0400Body taizhf381.8 Christen Sánchez MD Work Phone: [facility] AndersonJqwmov01-35-5483 08:38-0400Body mass index (BMI) [Ratio]18.33 kg/z2TxxnxvHilary Sánchez MD Work Phone: [facility] AndersonZigrli53-37-8596 08:38-0400Body temperature 97.2 [degF]Hilary Sánchez MD Work Phone: [facility] AndersonSthfzg56-42-8780 08:38-0400Body .6 kgHilary Sánchez MD Work Phone: [facility] AndersonKhfrov60-57-9680 08:38-0400Diastolic blood mm[Hg]Hilary Sánchez MD Work Phone: 1(419)756-[address] [place] [address]-23-2025 08:38-0400Heart rate78 /min Hilary Sánchez MD Work Phone: [place] [address]-23-2025 08:38-0400Respiratory rate 16 /minHilary Sánchez MD Work Phone: [place] [address]-23-2025 08:38-9770WgV1% (BldA) [Mass fraction]99 %Hilary Sánchez MD Work Phone: [place] [address]-23-2025 08:38-0400Systolic blood yfomnnhv436 mm[Hg]Hilary Sánchez MD Work Phone: [place] [address]-11-2025 10:10-0400Body temperature 97.7 [degF]Chair Schuyler Work Phone: [place] [address]-11-2025 10:10-0400Diastolic blood tcuqhbyc07 mm[Hg]Chair Schuyler Work Phone: [place] [address]-11-2025 10:10-0400Heart rate80 /min Chair Schuyler Work Phone: [place] [address]-11-2025 10:10-0400Respiratory rate 18 /minChair Schuyler Work Phone: [place] [address]-11-2025 10:10-3172JfQ3% (BldA) [Mass fraction]98 %Chair Schuyler Work Phone: [place] [address]-11-2025 10:10-0400Systolic blood vhyqcqmv467 mm[Hg]Chair Schuyler Work Phone: [place] [address]-09-2025 09:18-0400Body ohshuj166.8 cmAngelina Bernabe APRN.CNP Work Phone: [place] [address]-09-2025 09:18-0400Body mass index (BMI) [Ratio]18.01 kg/z7PmmarAngelina Bernabe APRN.CNP Work Phone: 1(568) 738-1059[address]09-2025 09:18-0400Body temperature 97.11 [degF]Angelina Bernabe APRN.SURGICAL SERVICES COORDINATOR Work Phone: [facility]04-09-2025 09:18-0400Body .7 kgAngelina Bernabe APRN.SURGICAL SERVICES COORDINATOR Work Phone: [facility]04-09-2025 09:18-0400Diastolic blood ubthpwir81 mm[Hg]Angelina Bernabe APRN.SURGICAL SERVICES COORDINATOR Work Phone: [place] [address]-09-2025 09:18-0400Heart rate72 /min Angelina Bernabe APRN.SURGICAL SERVICES COORDINATOR Work Phone: [place] [address]-09-2025 09:18-0400Respiratory rate 16 /minAngelina Bernabe APRN.SURGICAL SERVICES COORDINATOR Work Phone: [place] [address]-09-2025 09:18-4576JeT1% (BldA) [Mass fraction]99 %Angelina Bernabe APRN.SURGICAL SERVICES COORDINATOR Work Phone: [facility]04-09-2025 09:18-0400Systolic blood yocwfaai226 mm[Hg]Angelina Bernabe APRN.SURGICAL SERVICES COORDINATOR Work Phone: [facility]04-03-2025 09:07-0400Body mass index (BMI) [Ratio]17.76 kg/d0LqsijAngelina Bernabe APRN.SURGICAL SERVICES COORDINATOR Work Phone: [facility]04-03-2025 09:07-0400Body temperature 97.59 [degF]Angelina Bernabe APRN.SURGICAL SERVICES COORDINATOR Work Phone: [facility]04-03-2025 09:07-0400Body yoiuea83 kg Angelina Bernabe APRN.SURGICAL SERVICES COORDINATOR Work Phone: [place] [address]-03-2025 09:07-0400Diastolic blood aevnstut35 mm[Hg]Angelina Bernabe APRN.SURGICAL SERVICES COORDINATOR Work Phone: [facility]04-03-2025 09:07-0400Heart rate83 /min Angelina Bernabe APRN.SURGICAL SERVICES COORDINATOR Work Phone: [facility]04-03-2025 09:07-0400Respiratory rate 16 /minAngelina Bernabe APRN.SURGICAL SERVICES COORDINATOR Work Phone: [facility]04-03-2025 09:07-9537FbU3% (BldA) [Mass fraction]97 %Angelina Bernabe WAITER/WAITRESS D[employer]ING [employer].SURGICAL SERVICES COORDINATOR Work Phone: [facility]04-03-2025 09:07-0400Systolic blood ueswfkbc756 mm[Hg]Angelina Bernabe WAITER/WAITRESS DINING [employer].SURGICAL SERVICES COORDINATOR Work Phone: [facility]04-01-2025 15:04-0400Body .7 cmKaren Hemmer PA Work Phone: [facility] HospitalWfkcuqdkum86-19-7189 15:04-0400Body mass index (BMI) [Ratio]17.24 kg/d6Gldma Hemmer PA Work Phone: [facility] HospitalWlljicgbfm50-23-8239 15:04-0400Body lnpuce61.44 kgKaren Hemmer PA Work Phone: [facility] CenterFnruqvabcz52-22-0878 15:04-0400Diastolic blood mm[Hg]Mily Hemmer PA Work Phone: noSaint [facility] CenterLwsoqfcvfd19-54-7186 15:04-0400Heart rate97 /min Mily Hemmer PA Work Phone: [facility] HospitalQzbiqhnvcj46-02-8399 15:04-0400Respiratory rate16 /minKaren Hemmer PA Work Phone: [facility] HospitalSijrzjfiju35-14-2994 15:04-5315ZbS1% (BldA) [Mass fraction]96 %Mily Hemmer PA Work Phone: [facility]oonSaint [facility] CenterWdncdzximc09-21-4301 15:04-0400Systolic blood mm[Hg]Mily Hemmer PA Work Phone: noSaint [facility] CenterOrbrswhbre40-89-6598 08:30-0400Body sultke375.8 cmAngelina Bernabe WAITER/WAITRESS DINING [employer].SURGICAL SERVICES COORDINATOR Work Phone: [facility] HospitalComment on above:verified by 2 owdfpkfqxd62-74-0533 08:30-0400Body mass index (BMI) [Ratio]18.15 kg/y2LuvkrAngelina Bernabe APRN.SURGICAL SERVICES COORDINATOR Work Phone: [facility]03-26-2025 08:30-0400Body temperature 97.9 [degF]Angelina Bernabe APRN.SURGICAL SERVICES COORDINATOR Work Phone: [phone]([phone]03-26-2025 08:30-0400Body zmfapg36.1 kgAngelina Bernabe APRN.SURGICAL SERVICES COORDINATOR Work Phone: 1(307)9-[address] [place], [place] 5878203-26-2025 08:30-0400Diastolic blood wwmylkhl50 mm[Hg]Angelina Bernabe APRN.SURGICAL SERVICES COORDINATOR Work Phone: 1(418)8-[address] [place], [place] 5878203-26-2025 08:30-0400Heart rate91 /min Angelina Bernabe APRN.SURGICAL SERVICES COORDINATOR Work Phone: 1(668)2-[address] [place], [place] 5878203-26-2025 08:30-0400Respiratory rate 16 /minAngelina Bernabe APRN.SURGICAL SERVICES COORDINATOR Work Phone: 1(241)7-[address] [place] [address]-26-2025 08:30-2560AuO5% (BldA) [Mass fraction]99 %Angelina Bernabe APRN.SURGICAL SERVICES COORDINATOR Work Phone: [phone]03-26-2025 08:30-0400Systolic blood sdwovguw998 mm[Hg]Angelina Bernabe APRN.SURGICAL SERVICES COORDINATOR Work Phone: 1(974)5-33[facility]03-12-2025 09:03-0400Body mass index (BMI) [Ratio]17.27 kg/m2MARGAUX Mosnon MD Work Phone: 1(923)3-56[facility]03-12-2025 09:03-0400Body temperature 97.2 [degF]MARGAUX Monson MD Work Phone: 1(819)000-[address] [place] [address]-12-2025 09:03-0400Body ywdlez58.8 kgMARGAUX Monson MD Work Phone: [place] [address]-12-2025 09:03-0400Diastolic blood qgyvswzw79 mm[Hg]MARGAUX Monson MD Work Phone: [facility]03-12-2025 09:03-0400Heart rate89 /min MARGAUX Monson MD Work Phone: [facility]03-12-2025 09:03-0400Respiratory rate 16 /JenelleMARGAUX Monson MD Work Phone: [facility]03-12-2025 09:03-7027OmZ6% (BldA) [Mass fraction]99 %MARGAUX Monson MD Work Phone: [facility]03-12-2025 09:03-0400Systolic blood apocokbv637 mm[Hg]MARGAUX Monson MD Work Phone: [facility]03-05-2025 09:45-0500Diastolic blood icowluao74 mm[Hg]Rashaun Torres MD Work Phone: 1(917)641-[address] [place], [place] 4441103-05-2025 09:45-0500 Heart rate67 /minRashaun Torres MD Work Phone: 1(198)883-[address] [place], [place] [address]1103-05-2025 09:45-0500 Respiratory rate14 /minRashaun Torres MD Work Phone: 1(485)233-[address] [place], [place] [address]1103-05-2025 09:45-0500 SaO2% (BldA) [Mass fraction]97 %Rashaun Torres MD Work Phone: 1(377)721-[facility]03-05-2025 09:45-0500 Systolic blood mm[Hg]Rashaun Torres MD Work Phone: 1(226)391-[address] [place], [place] 4441103-05-2025 08:53-0500 Inhaled oxygen flow rate6 L/minRashaun Torres MD Work Phone: 1(155)686-[address] [place], [place] [address]1103-05-2025 06:50-0500 Body notghm490.72 Shakeel Torres MD Work Phone: 1(925)682-[facility]03-05-2025 06:50-0500 Body mhiwijeugiw77.9 [degF]Rashaun Torres MD Work Phone: [facility]03-05-2025 06:50-0500 Body vvkiel79.07 kgRashaun Torres MD Work Phone: [facility]03-03-2025 09:24-0500 Body vvveph407.5 cmMindy Robert PA-C Work Phone: [facility]03-03-2025 09:24-0500Body mass index (BMI) [Ratio]17.58 kg/u4Xhbco Robert PA-C Work Phone: [facility]03-03-2025 09:24-0500Body temperature 97.2 [degF]Cong Robert PA-C Work Phone: [facility]03-03-2025 09:24-0500Body .71 kgMindy Robert PA-C Work Phone: [facility]03-03-2025 09:24-0500Diastolic blood pwijbqmq19 mm[Hg]Cong Robert PA-C Work Phone: [facility]03-03-2025 09:24-0500Heart rate80 /min Cong Robert PA-C Work Phone: [facility]03-03-2025 09:24-0500Respiratory rate 16 /minMindy Robert PA-C Work Phone: [facility]03-03-2025 09:24-6053QvP1% (BldA) [Mass fraction]100 %Cong Robert PA-C Work Phone: [facility]03-03-2025 09:24-0500Systolic blood pqejorej644 mm[Hg]Cong Robert PA-C Work Phone: [facility]03-03-2025 08:44-0500Body mass index (BMI) [Ratio]17.68 kg/m2MARGAUX Monson MD Work Phone: 1(440)[address] [place], [place] 3354003-03-2025 08:44-0500Body temperature 97.2 [degF]MARGAUX Monson MD Work Phone: 1(421)[address] [place], [place] 3354003-03-2025 08:44-0500Body sokjvf63 kg MARGAUX Monson MD Work Phone: 1(276)[address] [place], [place] 3354003-03-2025 08:44-0500Diastolic blood mm[Hg]MARGAUX Monson MD Work Phone: 1(273)[address] [place], [place] 3354003-03-2025 08:44-0500Heart rate80 /min MARGAUX Monson MD Work Phone: 1(895)[address] [place], [place] [id number] 08:44-0500Respiratory rate 16 /JenelleMARGAUX Monson MD Work Phone: 1([phone] [place], [place] [id number] 08:44-4754IrL2% (BldA) [Mass fraction]100 %MARGAUX Monson MD Work Phone: 1(756)[address] [place], [place] [id number] 08:44-0500Systolic blood jjndagrs644 mm[Hg]MARGAUX Monson MD Work Phone: 1(708)[address] [place], [place] [id number] 09:59-0500Body mass index (BMI) [Ratio]17.68 kg/m2MARGAUX Monson MD Work Phone: 1(357)[address] [place], [place] [id number] 09:59-0500Body temperature 97.5 [degF]MARGAUX Monson MD Work Phone: 1([phone] [place], [place] [id number] 09:59-0500Body wylohc74 kg MARGAUX Monson MD Work Phone: 1(499)[address] [place], [place] [id number] 09:59-0500Diastolic blood kfwugqhk61 mm[Hg]MARGAUX Monson MD Work Phone: 1(150)[address] [place], [place] [id number] 09:59-0500Heart rate75 /min MARGAUX Monson MD Work Phone: [phone] [address] [place], [place] 7856702-24-2025 09:59-0500Respiratory rate 16 /JenelleMARGAUX Monson MD Work Phone: [facility]02-24-2025 09:59-7783MeY8% (BldA) [Mass fraction]100 %NA Liam WASHINGTON Work Phone: [facility]02-24-2025 09:59-0500Systolic blood icqccdua039 mm[Hg]NA Liam WASHINGTON Work Phone: [facility]02-17-2025 09:29-0500Body pwiehx800.5 cmAdagwen Sánchez MD Work Phone: [facility] AndersonTrtmcv40-71-0786 09:29-0500Body mass index (BMI) [Ratio]18.2 kg/r4MsgpolHilary Sánchez MD Work Phone: [facility] AndersonCtvmld05-06-9396 09:29-0500Body kzdoyz61.52 kgAdagwen Sánchez MD Work Phone: 1(324)466-[address] [place], [place] 9545002-17-2025 09:29-0500Diastolic blood zsgbefjw32 mm[Hg]Hilary Sánchez MD Work Phone: [facility] AndersonComjyi22-74-8513 09:29-0500Heart rate85 /min Hilary Sánchez MD Work Phone: [facility] AndersonExsiat64-04-8243 09:29-0500Respiratory rate 18 /minAdagwen Sánchez MD Work Phone: 1(471)243-[address] [place], [place] 9545002-17-2025 09:29-3411OzL3% (BldA) [Mass fraction]99 %Hilary Sánchez MD Work Phone: [facility] AndersonPtrfxq83-98-5974 09:29-0500Systolic blood apvpmhdl637 mm[Hg]Hilary Sánchez MD Work Phone: [facility] AndersonUltmrw64-12-0805 09:12-0500Body mass index (BMI) [Ratio]18.22 kg/m2MARGAUX Monson MD Work Phone: [facility]02-17-2025 09:12-0500Body .6 kgMARGAUX Monson MD Work Phone: [facility]02-17-2025 09:12-0500Diastolic blood kwljdixd73 mm[Hg]MARGAUX Monson MD Work Phone: [facility]02-17-2025 09:12-0500Heart rate85 /min MARGAUX Monson MD Work Phone: [place] [address]-17-2025 09:12-0500Respiratory rate 18 /JenelleMARGAUX Monson MD Work Phone: [place] [address]-17-2025 09:12-4718TgI3% (BldA) [Mass fraction]99 %MARGAUX Monson MD Work Phone: [facility]02-17-2025 09:12-0500Systolic blood npiogcup943 mm[Hg]MARGAUX Monson MD Work Phone: [facility]02-10-2025 09:04-0500Body mass index (BMI) [Ratio]18.19 kg/m2MARGAUX Monson MD Work Phone: [facility]02-10-2025 09:04-0500Body temperature 96.69 [degF]MARGAUX Monson MD Work Phone: [facility]02-10-2025 09:04-0500Body ohtgey25.5 kgMARGAUX Monson MD Work Phone: [facility]02-10-2025 09:04-0500Diastolic blood lcirxdxq14 mm[Hg]MARGAUX Monson MD Work Phone: [facility]02-10-2025 09:04-0500Heart rate85 /min MARGAUX Monson MD Work Phone: [place] [address]-10-2025 09:04-0500Respiratory rate 18 /JenelleMARGAUX Monson MD Work Phone: [facility]02-10-2025 09:04-0314IvO1% (BldA) [Mass fraction]100 %MARGAUX Monson MD Work Phone: [facility]02-10-2025 09:04-0500Systolic blood ebhmssgq848 mm[Hg]NA Liam WASHINGTON Work Phone: [facility]02-03-2025 09:35-0500Body uyrzaw856.5 Christen Sánchez MD Work Phone: [facility] AndersonQtkfoz13-62-2769 09:35-0500Body mass index (BMI) [Ratio]17.41 kg/f7IxngdjHilary Sánchez MD Work Phone: 1(904)294-[address] [place], [place] 9545002-03-2025 09:35-0500Body temperature 97.5 [degF]Hilary Sánchez MD Work Phone: 1(873)405-[address] [place], [place] 9545002-03-2025 09:35-0500Body ednmql97.2 kgHilary Sánchez MD Work Phone: 1(855)769-[address] [place], [place] 9545002-03-2025 09:35-0500Diastolic blood tbvvtvak82 mm[Hg]Hilary Sánchez MD Work Phone: 1(796)494-[address] [place], [place] 9545002-03-2025 09:35-0500Heart rate80 /min Hilary Sánchez MD Work Phone: 1(857)334-[address] [place], [place] 9545002-03-2025 09:35-0500Respiratory rate 16 /minAdagwen Sánchez MD Work Phone: [facility] AndersonEdojbs64-35-6806 09:35-8011GaD6% (BldA) [Mass fraction]98 %Hilary Sánchez MD Work Phone: [facility] AndersonFlhqsm38-71-8160 09:35-0500Systolic blood joxmmokj366 mm[Hg]Hilary Sánchez MD Work Phone: 1(265)425-[address] [place], [place] 9545002-03-2025 08:50-0500Body mass index (BMI) [Ratio]17.41 kg/m2Michael Martin MD Work Phone: [facility]02-03-2025 08:50-0500Body temperature 97.5 [degF]Michael Martin MD Work Phone: [facility]02-03-2025 08:50-0500Body .2 kgMichael Martin MD Work Phone: [facility]02-03-2025 08:50-0500Diastolic blood teonphoa77 mm[Hg]Michael Martin MD Work Phone: [facility]02-03-2025 08:50-0500Heart rate80 /min Michael Martin MD Work Phone: [facility]02-03-2025 08:50-0500Respiratory rate 16 /minStolu Mratin MD Work Phone: [facility]02-03-2025 08:50-5751IkK9% (BldA) [Mass fraction]98 %Michael Martin MD Work Phone: [facility]02-03-2025 08:50-0500Systolic blood fssydcgp315 mm[Hg]Michael Martin MD Work Phone: [facility]01-27-2025 13:43-0500Body mass index (BMI) [Ratio]18.12 kg/y8MzddtbHilary Sánchez MD Work Phone: [facility] AndersonNrnjvs15-54-5971 13:43-0500Body temperature 97.11 [degF]Hilary Sánchez MD Work Phone: [facility] AndersonXmcgbt13-06-6025 13:43-0500Body ewtmmm60.3 kgHilary Sánchez MD Work Phone: [facility] AndersonDdixxl51-07-0458 13:43-0500Diastolic blood fbhkdeht27 mm[Hg]Hilary Sánchez MD Work Phone: [facility] AndersonDnadbx58-95-3702 13:43-0500Heart rate93 /min Hilary Sánchez MD Work Phone: 1(547)515-[address] [place], [place] 6506101-27-2025 13:43-0500Respiratory rate 18 /minHilary Sánchez MD Work Phone: 1(513)258-[address] [place], [place] 6506101-27-2025 13:43-2088VbT2% (BldA) [Mass fraction]97 %Hilary Sánchez MD Work Phone: 1(324)586-[address] [place], [place] 6506101-27-2025 13:43-0500Systolic blood pmoagaah377 mm[Hg]Hilary Sánchez MD Work Phone: 1(874)[address] [place], [place] 7236401-13-2025 10:43-0500Body ohysus942.5 cmAdagwen Sánchez MD Work Phone: 1(456)[address] [place], [place] 7236401-13-2025 10:43-0500Body mass index (BMI) [Ratio]17.75 kg/m6UramfeHilary Sánchez MD Work Phone: 1(044)[facility] [place], [place] 6506101-13-2025 10:43-0500Body temperature 97.81 [degF]Hilary Sánchez MD Work Phone: 1(922)[address]01-13-2025 10:43-0500Body unlvme44.2 kgAdagwen Sánchez MD Work Phone: 1(801)488-[address] [place], [place] 6506101-13-2025 10:43-0500Diastolic blood mm[Hg]Hilary Sánchez MD Work Phone: 1(060)[address] [place], [place] 7236401-13-2025 10:43-0500Heart rate86 /min Hilary Sánchez MD Work Phone: 1(991)636-[address] [place], [place] 6506101-13-2025 10:43-0500Respiratory rate 16 /minAdagwen Sánchez MD Work Phone: 1(536)141-[address] [place], [place] 6506101-13-2025 10:43-4884ZnY5% (BldA) [Mass fraction]98 %Hilary Sánchez MD Work Phone: 1(419)756-[address] [place], [place] 6506101-13-2025 10:43-0500Systolic blood lxmksygd713 mm[Hg]Hilary Sánchez MD Work Phone: [facility] AndersonMjnukf45-46-3195 09:48-0500Body jntzyy525.5 cmNA Liam WASHINGTON Work Phone: [facility]01-13-2025 09:48-0500Body mass index (BMI) [Ratio]17.76 kg/m2MARGAUX Monson MD Work Phone: [facility]01-13-2025 09:48-0500Body temperature 97.81 [degF]MARGAUX Monson MD Work Phone: [facility]01-13-2025 09:48-0500Body qdfdiz02.2 kgMARGAUX Monson MD Work Phone: [facility]01-13-2025 09:48-0500Diastolic blood euvieigs60 mm[Hg]MARGAUX Monson MD Work Phone: [facility]01-13-2025 09:48-0500Heart rate88 /min MARGAUX Monson MD Work Phone: [facility]01-13-2025 09:48-0500Respiratory rate 16 /JenelleMARGAUX Monson MD Work Phone: [facility]01-13-2025 09:48-9815KlS9% (BldA) [Mass fraction]99 %MARGAUX Monson MD Work Phone: [facility]01-13-2025 09:48-0500Systolic blood kaxaotuy135 mm[Hg]MARGAUX Monson MD Work Phone: [facility]01-02-2025 08:53-0500Body temperature 97.5 [degF]Teresa Tucker MD Work Phone: [facility]01-02-2025 08:53-0500Diastolic blood naboaxnw14 mm[Hg]Teresa Tucker MD Work Phone: [facility]01-02-2025 08:53-0500Heart rate87 /min Teresa Tucker MD Work Phone: [facility]01-02-2025 08:53-0298VzS3% (BldA) [Mass fraction]99 %Teresa Tucker MD Work Phone: [facility]01-02-2025 08:53-0500Systolic blood xqubwokz025 mm[Hg]Teresa Tucker MD Work Phone: [facility]12-20-2024 15:28-0500Diastolic blood foxxlhma38 mm[Hg]Rashaun Torres MD Work Phone: 1(207)[address]12-20-2024 15:28-0500 Heart rate77 /minRashaun Torres MD Work Phone: 1(373)[address]12-20-2024 15:28-0500 Respiratory rate16 /minRashaun Torres MD Work Phone: 1(716)[address]12-20-2024 15:28-0500 SaO2% (BldA) [Mass fraction]94 %Rashaun Torres MD Work Phone: 1(831)[address]12-20-2024 15:28-0500 Systolic blood ekrvhnzp32 mm[Hg]Rashaun Torres MD Work Phone: 1(457)947-[address] [place], [place] 4441112-20-2024 11:36-0500 Body puxtdc286.72 Shakeel Torres MD Work Phone: 1(293)763-[address] [place], [place] 4441112-20-2024 11:36-0500 Body abgipdxtlij37.8 [degF]Rashaun Torres MD Work Phone: 1(351)498-[address] [place], [place] 4441112-20-2024 11:36-0500 Body kktucj87.96 kgRashaun Torres MD Work Phone: 1(378)[address]12-10-2024 16:16-0500 Body kyoaod422.7 Shakeel Torres MD Work Phone: [facility] HospitalAnmbbdcqra26-05-8800 16:16-0500Body mass index (BMI) [Ratio]18.25 kg/p0SgnthRashaun Torres MD Work Phone: [facility] HospitalUrdvmvmcsl33-31-5073 16:16-0500Body byysgf33.43 kgRashaun Torres MD Work Phone: [facility] HospitalDocluazung14-78-1638 16:16-0500Diastolic blood zrjiyxnd49 mm[Hg]Rashaun Torres MD Work Phone: [facility] HospitalGwbbdlsmij39-90-0574 16:16-0500Heart xvmg158 /min Rashaun Torres MD Work Phone: [facility] HospitalXfkhjgxbsk11-37-2916 16:16-9387FbX7% (BldA) [Mass fraction]97 %Rashaun Torres MD Work Phone: [facility] HospitalIkxjxfkilf00-39-7571 16:16-0500Systolic blood cghpoxgq517 mm[Hg]Rashaun Torres MD Work Phone: [facility] HospitalZihxsdhmmd92-78-4996 14:04-0500Body bctkuy197.7 Petra Cleaning MD Work Phone: [facility] HospitalJwmyalokcn91-98-2729 14:04-0500Body mass index (BMI) [Ratio]18.31 kg/w0ZdrfrxAdonay Cleaning MD Work Phone: [facility] HospitalJsrrbpaeko65-79-4248 14:04-0500Body lifakm26.61 kgAdonay Cleaning MD Work Phone: [facility] HospitalTklefydytv84-19-7547 14:04-0500Diastolic blood fkvdpfsy77 mm[Hg]Adonay Cleaning MD Work Phone: [facility] HospitalFxojtoowkb82-45-4210 14:04-0500Systolic blood ymrikeyc147 mm[Hg]Adonay Cleaning MD Work Phone: [facility] HospitalEikrkxmiop51-84-7551 14:45-0400Body wfieey349.7 Shakeel Torres MD Work Phone: noSaint [facility] CenterPfdhfjjsqx72-74-0346 14:45-0400Body mass index (BMI) [Ratio]18.25 kg/p5AgknvRashaun Torres MD Work Phone: noSaint [facility] CenterBvunmdwbzy33-81-6157 14:45-0400Body .43 kgRashaun Torres MD Work Phone: noSaint [facility] CenterWcuxxvtfdq45-77-2186 14:45-0400Diastolic blood itqbwaah63 mm[Hg]Rashaun Torres MD Work Phone: noSaint [facility] CenterLchrecaqtu55-69-5348 14:45-0400Heart kjph916 /min Rashaun Torres MD Work Phone: noSaint [facility] CenterFhzdktopra72-67-2817 14:45-5031WrI4% (BldA) [Mass fraction]96 %Rashaun Torres MD Work Phone: noSaint [facility] CenterPttvxhntvd27-65-9286 14:45-0400Systolic blood urwrimht446 mm[Hg]Rashaun Torres MD Work Phone: no[facility] Encounters Encounter DateEncounter TypeCare ProviderFacilityStart: 07-28-2025 End: 92-61-4495gpogskdqhsNNGQU MABALAY ALDAFacility:[facility] Start: 07-15-2025 End: 67-13-2634cabcbavhatPZRRKV VENNEPUREDDYFacility:[facility] Start: 07-09-2025 End: 55-50-1042Cblvphimm department patient visitRASHAUN Pina [facility] Marina Campustart: 07-08-2025 End: 54-19-1938rcnjgrinfpQUETG MABALAY ALDAFacility:[facility] Start: 06-28-2025 End: 39-00-8219Pshzbp outpatient visit 25 minutesRashaun Torres MD Work Phone: [facility] MedinceComment on above:Metastatic adenocarcinoma to colorectal region (HCC) (Primary Dx); Elevated blood sugar; Paroxysmal atrial fibrillation (HCC); Emphysema, unspecified (HCC); Cigarette nicotine dependence with other nicotine-induced disorder; HeartburnStart: 06-28-2025 End: 56-43-6255bfyjuncxjzPRVKT M ALDGloriat AvailableStart: 06-21-2025 End: 59-07-8115Tnqxvqxbp encounterTeresa Tucker MD Work Phone: [facility] hospitalectal SurgeryComment on above:Patient Question; Post OpStart: 2025 End: 93-33-8926Yxycrftuf Result EncounterGeneric External Data ProviderNOMS External Department UnsolicitedStart: 2025 End: 68-29-0788Uumhlzshq Result EncounterGeneric External Data ProviderNOMS External Department UnsolicitedStart: 2025 End: 09-16-7002Fjwgeqdukl and management of aricTERESA TUCKER [facility]-10[facility]2025 End: 77-30-6804Ogaftqcnj Result EncounterGeneric External Data ProviderNOMS External Department UnsolicitedStart: 06-10-2025 End: 85-95-0418Vkpkjlnsp Result EncounterGeneric External Data ProviderNOMS External Department UnsolicitedStart: 06-10-2025 End: 32-88-4093Sfzbktznf encounterTeresa Tucker MD Work Phone: [facility] hospitalectal SurgeryComment on above:Patient Question Start: 06-10-2025 End: 21-18-4380Kylyyzkgz to [facility] 3 Work Phone: Pre AnesthesiaStart: 06-10-2025 End: 07-21-1884Ytlfvmejjk consultationPeacehealth [facility] 3 Work Phone: Pre AnesthesiaComment on above:Pre-op evaluation (Primary Dx); Benign essential hypertension; Smoker; Rectal cancer (HCC)Start: 06-10-2025 End: 25-41-6314Simksixsajfip examination donePeacehealth Peace Island Hospital 3 Work Phone: [facility], Beachwoodtart: 06-10-2025 End: 22-60-0129pubpahtffeAVDRW MABALAY ALDAFacility:[facility] Start: 04-96-3297Cepkviidn for other preprocedural examinationADARSH VENNEPUREDDYCleMemorial Health System Marietta Memorial HospitalStart: 06-10-2025 End: 04-71-0421Xgtgkqm encounter Judith Santos APRN.CNP Work Phone: Colorectal SurgeryComment on above:Rectal cancer (HCC) (Primary Dx); Ostomy nurse consultationStart: 06-10-2025 End: 08-62-2732mteybuuhhzMYUUA MABALAY ALDAFacility:[facility] Start: 06-07-2025 End: 38-11-8735Abuvgnxzp encounterTeresa Tucker MD Work Phone: Colorectal SurgeryComment on above:Schedule Surgery Start: 06-02-2025 End: 34-57-6511Gtedvvlye encounterTeresa Tucker MD Work Phone: Colorectal SurgeryComment on above:Patient Question Start: 05-31-2025 End: 43-71-6221Pzatzg outpatient visit 15 minutesAdarsh Gonzalo WASHINGTON Work Phone: Hematology/OncologyComment on above:Rectal cancer (HCC) (Primary Dx)Start: 05-31-2025 End: 25-45-7217avcirezvzxVANICL GONZALOFacility:[facility] Start: 05-27-2025 End: 16-83-3277cmasbeklfhSpg/[place] Work Phone: Hematology/OncologyComment on above:Rectal cancer (HCC)Start: 05-27-2025 End: 63-84-9745Bdroqthdk Result EncounterGeneric External Data ProviderNOMS External Department UnsolicitedStart: 05-27-2025 End: 79-60-2511Tdfykalph Result EncounterGeneric External Data ProviderNOMS External Department UnsolicitedStart: 05-26-2025 End: 32-49-7235Pukksqwhe to same day surgery Rosales Prather RNColorectal SurgeryComment on above:Rectal CancerStart: 05-26-2025 End: 04-86-1970Radnilk encounter procedureTeresa Tucker MD Work Phone: Colorectal SurgeryComment on above:Rectal cancer (HCC) (Primary Dx)Start: 05-26-2025 End: 65-45-3295eupdvngeesMssklo M Smith RNColorectal SurgeryStart: 05-25-2025 End: 83-36-1955Yjayrt follow up visit related to original pxAdonay Clemente MD Work Phone: noms Surgical AssociatesComment on above:Rectal cancer (HCC) (Primary Dx)Start: 05-25-2025 End: 92-46-4233Glxpry OnlyTeresa Tucker MD Work Phone: [facility]TH NAMPAECTAL SURGERYComment on above:Rectal cancer (HCC) (Primary Dx)Start: 06-29-3964rbyksrtlzzFMNHKW VENNEPUREDDYFacility:[facility] Hospitaltart: 05-19-2025 End: 23-62-7638Klnuwwkwig hospital visit by physicianMri [address] [employer] (I-Stat/1.5t/3t) Work Phone: I QComment on above:Rectal cancer (HCC) [C20]Start: 05-19-2025 End: 12-07-4687Vysdqpffc Result EncounterGeneric External Data ProviderNOMS External Department UnsolicitedStart: 05-19-2025 End: 14-68-1079Vplnxdcac Result EncounterGeneric External Data ProviderNOMS External Department UnsolicitedStart: 05-16-2025 End: 29-39-9481Tfurvvdxh to same day surgery Annabelle Clemente MD-[facility] CampusStart: 05-16-2025 End: 58-25-5787tmljpmbjirUdfqr M Alda MD Work Phone: [facility] Work Phone: Start: 05-10-2025 End: 56-69-4136Ubyosu outpatient visit 15 minutesAdonay Clemente MD Work Phone: noRI Surgical AssociatesComment on above:Rectal cancer (HCC) (Primary Dx)Start: 05-10-2025 End: 43-90-5992phgwfcukcuMIABIA VARGAS VNot AvailableStart: 05-03-2025 End: 31-46-5218Ipaomy outpatient visit 25 minutesAdagwen Sánchez MD Work Phone: Hematology/OncologyComment on above:Rectal cancer (HCC) (Primary Dx)Start: 05-03-2025 End: 65-39-1412xrddiprylxWKNJZG ARTEMDYFacility:[facility] Start: 04-28-2025 End: 67-72-0483Hwwmtjdla encounterTifluis Ballard RN Work Phone: Hematology/OncologyComment on above:Care Coordination (question)Start: 04-27-2025 End: 95-39-8334Wblpjzgtw Result EncounterGeneric External Data ProviderNOMS External Department UnsolicitedStart: 04-27-2025 End: 33-84-2953Zojgnowwb Result EncounterGeneric External Data ProviderNOMS External Department UnsolicitedStart: 96-05-0777dgdlmpdorwHQTAXK VENNEPUREDDY Facility:[facility] Hospitaltart: 04-27-2025 End: 75-79-8647Zqfrgzecxn hospital visit by physicianArrival Time Radiology Work Phone: Radiology Pet CTComment on above:Rectal cancer (HCC) [C20]Start: 04-07-2025 End: 09-57-5914ojhbojrrgpTaicj [address] Work Phone: Hematology/OncologyComment on above:Rectal cancer (HCC) (Primary Dx)Start: 04-05-2025 End: 97-99-5185Swiqvoaft Result EncounterGeneric External Data ProviderNOMS External Department UnsolicitedStart: 04-05-2025 End: 82-98-1365Ruxigqnza Result EncounterGeneric External Data ProviderNOMS External Department UnsolicitedStart: 04-05-2025 End: 64-42-6648Rucjii outpatient visit 25 minutesAdarsjere Sánchez MD Work Phone: Hematology/OncologyComment on above:Rectal cancer (HCC) (Primary Dx)Start: 04-05-2025 End: 86-25-5432ucratttyjiQgk/[place] Work Phone: Hematology/OncologyComment on above:Rectal cancer (HCC)Rectal cancer (HCC) (Primary Dx)Start: 03-25-2025 End: 86-87-4856Myvkjbvst encounterHilary Sánchez MD Work Phone: Hematology/OncologyComment on above:OrdersStart: 03-25-2025 End: 11-16-4939hoihxaxmtrMqyzo [address] Work Phone: Hematology/OncologyComment on above:Rectal cancer (HCC) (Primary Dx)Start: 03-23-2025 End: 79-48-4190Otkmlurye Result EncounterGeneric External Data ProviderNOMS External Department UnsolicitedStart: 03-23-2025 End: 13-49-0381Ohfzgwhov Result EncounterGeneric External Data ProviderNOMS External Department UnsolicitedStart: 03-23-2025 End: 98-30-7175qprpklvahgTSTHYA VENNEPUREDDYFacility:[facility] Start: 03-23-2025 End: 17-05-9638Soscog outpatient visit 15 minutesG Jack Monson MD Work Phone: Radiation OncologyComment on above:Rectal cancer (HCC) (Primary Dx)Start: 03-23-2025 End: 71-73-7984Fsakga outpatient visit 25 minutesAdagwen Sánchez MD Work Phone: Hematology/OncologyComment on above:Rectal cancer (HCC) (Primary Dx)Start: 03-23-2025 End: 16-03-6355qyjzefqhhwUxi/[place] Work Phone: Hematology/OncologyComment on above:Rectal cancer (HCC)Rectal cancer (HCC) (Primary Dx)Start: 03-22-2025 End: 17-00-7661Izoaeuhko encounterG Jack Monson MD Work Phone: Radiation OncologyComment on above:Future Appointment Start: 03-22-2025 End: 24-39-6852Ppgclez encounter procedureMarycarmen Sierra APRN-[facility] Surg Work Phone: Start: 03-11-2025 End: 80-12-0327avjauwgurnZlrma [address] Work Phone: Hematology/OncologyComment on above:Rectal cancer (HCC) (Primary Dx)Start: 03-09-2025 End: 01-69-4973Ijnyjrbar Result EncounterGeneric External Data ProviderNOMS External Department UnsolicitedStart: 03-09-2025 End: 13-15-8521Dtmhtsvqw Result EncounterGeneric External Data ProviderNOMS External Department UnsolicitedStart: 03-09-2025 End: 19-42-3699Cqebqq outpatient visit 25 minutesAdarsjere Sánchez MD Work Phone: Hematology/OncologyComment on above:Rectal cancer (HCC) (Primary Dx)Start: 03-09-2025 End: 77-12-6914zatrmslschIxu/[place] Work Phone: Hematology/OncologyComment on above:Rectal cancer (HCC)Rectal cancer (HCC) (Primary Dx)Refill RequestStart: 02-25-2025 End: 89-45-1912hqylfprvahVXZWDV CARYLUREDDYFacility:[facility] Start: 02-23-2025 End: 27-59-0070Ocayxruen Result EncounterGeneric External Data ProviderNOMS External Department UnsolicitedStart: 02-23-2025 End: 69-93-5859Vhhsxiiqz Result EncounterGeneric External Data ProviderNOMS External Department UnsolicitedStart: 02-23-2025 End: 55-14-3660mzrpqwnsnqNDJSNP ARTEMDYFacility:[facility] Start: 02-11-2025 End: 98-36-1158hubvolmtmzYlhdx [address] Work Phone: Hematology/OncologyComment on above:Rectal cancer (HCC) (Primary Dx)Start: 02-09-2025 End: 98-16-2804Efvngqlmz Result EncounterGeneric External Data ProviderNOMS External Department UnsolicitedStart: 02-09-2025 End: 16-53-8479Jnjtrwhhp Result EncounterGeneric External Data ProviderNOMS External Department UnsolicitedStart: 02-09-2025 End: 81-94-2301Ldnjxx outpatient visit 25 minutesCong Up PA-C Work Phone: Hematology/OncologyComment on above:Rectal cancer (HCC) (Primary Dx)Start: 02-09-2025 End: 88-78-7178fosygrwtwfYgs/[place] Work Phone: Hematology/OncologyComment on above:Rectal cancer (HCC)Rectal cancer (HCC) (Primary Dx)Start: 01-28-2025 End: 77-74-6421izxonkbmejELVFKL VENNEPUREDDYFacility:[facility] Start: 01-26-2025 End: 45-53-8417Auyenxfag Result EncounterGeneric External Data ProviderNOMS External Department UnsolicitedStart: 01-26-2025 End: 55-53-5425Tzjpuicxm Result EncounterGeneric External Data ProviderNOMS External Department UnsolicitedStart: 01-26-2025 End: 59-32-9634Bhmmhatnz therapyJoyce Valles RD Work Phone: Nutrition TherapyComment on above:Nutrition Assessment Start: 01-26-2025 End: 55-12-9077Pdhhnk outpatient visit 25 minutesAdarsjere Sánchez MD Work Phone: Hematology/OncologyComment on above:Rectal cancer (HCC) (Primary Dx)Start: 01-26-2025 End: 38-46-3526myjzjvxpgdKvn/[place] Work Phone: Hematology/OncologyComment on above:Rectal cancer (HCC)Rectal cancer (HCC) (Primary Dx)Start: 01-20-2025 End: 80-74-1692gyvbmzhkfoWWYMCI VENNEPUREDDYNot AvailableStart: 01-14-2025 End: 25-73-0186jjnzeouxtzDjuqq [address] [place] Work Phone: Hematology/OncologyComment on above:Rectal cancer (HCC) (Primary Dx)Start: 01-12-2025 End: 91-98-3421Gzukzfbnu Result EncounterGeneric External Data ProviderNOMS External Department UnsolicitedStart: 01-12-2025 End: 09-66-2961Gejflbtki Result EncounterGeneric External Data ProviderNOMS External Department UnsolicitedStart: 01-12-2025 End: 56-77-4012slgfmatytpTkmylovttn Danny RD Work Phone: Nutrition TherapyStart: 01-12-2025 End: 97-29-9672Rosxudbpu therapyJacqueline Danny RD Work Phone: Nutrition TherapyComment on above:Nutrition Assessment Start: 01-12-2025 End: 31-82-4980Ppmufpd encounter Martha Bernabe APRN.SURGICAL SERVICES COORDINATOR Work Phone: Hematology/OncologyStart: 01-12-2025 End: 19-24-3525yvtzfaimfiHjp/[place] Work Phone: Hematology/OncologyComment on above:Rectal cancer (HCC)Rectal cancer (HCC) (Primary Dx)Start: 01-07-2025 End: 22-48-4529Ajioos-up encounterKana Wheeler APRN.SURGICAL SERVICES COORDINATOR Work Phone: Hematology/OncologyStart: 01-06-2025 End: 16-42-0517Ptafrkylo Result EncounterGeneric External Data ProviderNOMS External Department UnsolicitedStart: 01-06-2025 End: 09-76-1919Jfvqopnlw Result EncounterGeneric External Data ProviderNOMS External Department UnsolicitedStart: 01-06-2025 End: 02-92-9930Aaiqftv encounter Martha Bernabe APRN.SURGICAL SERVICES COORDINATOR Work Phone: Hematology/OncologyStart: 01-06-2025 End: 96-83-8758kpqzmuykptUot/[place] Work Phone: Hematology/OncologyComment on above:Rectal cancer (HCC)Rectal cancer (HCC) (Primary Dx)Start: 01-04-2025 End: 40-60-5506Fhsyyqq encounter procedureMily SINGH Work Phone: NOMS CI FMComment on above:Medicare annual wellness visit, subsequent (Primary Dx); ACP (advance care planning); Benign essential hypertension (CMS/HCC); Other problems related to lifestyle; Rectal cancer (CMS/HCC); Smoker; Dermatitis; Change in bowel habits; Slow transit constipation; Myalgia; Protein-calorie malnutrition, unspecified severity (CMS/HCC); Blood in stool; Elevated blood sugar; HypoglycemiaStart: 01-04-2025 End: 28-18-0807gjzcdwivvnYWVEX M HEMMERNot AvailableStart: 01-04-2025 End: 32-88-7787Wzyyvh Antonietta SINGH Work Phone: NOMS CI FMStart: 01-04-2025 End: 45-20-1540Dplhtd Antonietta SINGH Work Phone: NOMS CI FMStart: 01-04-2025 End: 34-53-3913Dvzmtmyuk encounterMariola Ballard RN Work Phone: Hematology/OncologyComment on above:Care Coordination (rash)Start: 12-31-2024 End: 85-63-9650Wsbdcqlqz encounterMariola Ballard RN Work Phone: Hematology/OncologyComment on above:Care Coordination (C1D1 treatment follow up call)Start: 12-31-2024 End: 60-72-8806gvixqcwhduXybmn [address] [place] Work Phone: Hematology/OncologyComment on above:Rectal cancer (HCC) (Primary Dx)Start: 12-30-2024 End: 85-74-5648Uccycwkgs encounterAngelina Bernabe APRN.CNP Work Phone: Hematology/OncologyComment on above:Lab OrdersStart: 12-29-2024 End: 61-54-3120hmtnklghotNEXMN MABALAY ALDAFacility:[facility] Start: 12-29-2024 End: 61-19-5392Yrhqfvy encounter Martha Bernabe APRN.CNP Work Phone: Hematology/OncologyComment on above:Rectal cancer (HCC) (Primary Dx)Start: 12-29-2024 End: 47-59-8724movhvwettpSjf/[place] Work Phone: Hematology/OncologyComment on above:Rectal cancer (HCC)Rectal cancer (HCC) (Primary Dx)Start: 12-24-2024 End: 96-21-1614Gyjfareme encounterFinancial Navigator Lars Work Phone: Hematology/OncologyComment on above:Benefits Investigation (Good Day Bent[place] ,//I am your Financial Navigator, Paige. I wanted to reach out and introduce myself. I welcome the opportunity to meet with you as I can answer questions related to your health plan and any expected out of pocket costs while you are in treatment.//You will also find a survey attached to this message that can help me better serve your financial needs. You can complete this at your earliest convenience. Please feel free to stop in or call [phone] forany questions you may have)Start: 12-15-2024 End: 75-27-6441Yrkaqdzpe Oncology NoteG Jack Monson MD Work Phone: Radiation OncologyComment on above:Completion Note Start: 12-15-2024 End: 36-20-0339Owxqdtuaz therapyJoyce Valles RD Work Phone: Nutrition TherapyComment on above:Nutrition Counseling Start: 12-15-2024 End: 14-47-3092Offxpub encounter procedureG Jack Monson MD Work Phone: Radiation OncologyComment on above:Rectal cancer (HCC) (Primary Dx)Start: 12-15-2024 End: 40-44-1798cjmwaiepqdYbwklgnnvm Michaelis RD Work Phone: Nutrition TherapyStart: 12-14-2024 End: 67-97-7575wljpcyhkgdFXDUH MABALAY ALDAFacility:[facility] Start: 12-13-2024 End: 76-53-7782xqyeqbrcnaVCIZB MABALAY ALDAFacility:[facility] Start: 12-10-2024 End: 81-95-0715Qtqegvnxd encounterTifluis Ballard RN Work Phone: Hematology/OncologyComment on above:Care Coordination (Letter request)Start: 12-10-2024 End: 65-89-3940ipisgmwtnvHSWVF MABALAY ALDAFacility:[facility] Start: 12-09-2024 End: 57-09-5036Xijwbvi evaluation of patient and reportTifluis Ballard RN Work Phone: Hematology/OncologyComment on above:Rectal cancer (HCC) (Primary Dx)Start: 12-09-2024 End: 92-25-7266tdawzutgcgEVPBZ MABALAY ALDAFacility:[facility] Start: 12-08-2024 End: 45-57-1038jrpnkufuvbYJQMZ MABALAY ALDAFacility:[facility] Start: 80-48-1516Uez-patient / Non-visitRashaun Torres MD Work Phone: [facility] Work Phone: Start: 12-08-2024 End: 18-96-1389Jyacjiaoe to same day surgery centerRashaun Torres MD Work Phone: [facility]Start: 12-08-2024 End: 67-81-9789pntmpwqsdxPvhip M Alda MD Work Phone: [facility] Work Phone: Start: 12-07-2024 End: 50-82-6314wpjbapkdggAKZPO MABALAY ALDAFacility:[facility] Start: 12-06-2024 End: 61-37-1052Hbcjtwqml Result EncounterGeneric External Data ProviderNOMS External Department UnsolicitedStart: 12-06-2024 End: 00-79-2461Qktrtztqv Result EncounterGeneric External Data ProviderNOMS External Department UnsolicitedStart: 12-06-2024 End: 56-87-6578Zcfbgt outpatient visit 25 minutesCong Up PA-C Work Phone: Hematology/OncologyComment on above:Rectal cancer (HCC) (Primary Dx)Start: 12-06-2024 End: 07-78-6119Kirmglp encounter procedureG Jack Monson MD Work Phone: Radiation OncologyComment on above:Rectal cancer (HCC) (Primary Dx)Start: 12-06-2024 End: 38-21-1266tjjttctbeaWYFTUF VENNEPUREDDYFacility:[facility] Start: 12-06-2024 End: 00-77-0603rijavfkwomHWBHOU VENNEPUREDDYFacility:[facility] Start: 12-03-2024 End: 48-46-3797zifrjhjmhzRGEUW MABALAY ALDAFacility:[facility] Start: 12-02-2024 End: 85-19-3570ppmrtbuplhAZNJG MABALAY ALDAFacility:[facility] Start: 12-01-2024 End: 95-51-8299wpojkidhveJNWFW MABALAY ALDAFacility:[facility] Start: 11-30-2024 End: 76-87-4019zrmwrtpgouWKMGW MABALAY ALDAFacility:[facility] Start: 11-29-2024 End: 70-96-0109Rrimhpy encounter procedureG Jack Monson MD Work Phone: Radiation OncologyComment on above:Rectal cancer (HCC) (Primary Dx)Start: 11-29-2024 End: 89-55-3099dmmlptealqTazeiibzwl Michaelis RD Work Phone: Nutrition TherapyStart: 11-29-2024 End: 76-93-1590Pgdliqikf therapyJacquekulwant Valles RD Work Phone: Nutrition TherapyComment on above:Nutrition Assessment Start: 11-26-2024 End: 93-31-1289thbbxgszqiENOET MABALAY ALDAFacility:[facility] Start: 11-25-2024 End: 60-16-4725Bhgsuwivc encounterMariola Ballard RN Work Phone: Hematology/OncologyComment on above:Care Coordination (Toxicity check)Start: 11-25-2024 End: 90-63-0698jqizpnpksgBIMRJ MABALAY ALDAFacility:[facility] Start: 11-24-2024 End: 60-24-3230xvyjxkhoagKVRRO MABALAY ALDAFacility:[facility] Start: 11-23-2024 End: 53-19-0241qtwjcynwyfAEAPQ MABALAY ALDAFacility:[facility] Start: 11-22-2024 End: 35-79-8816Ytbxwkylw Result EncounterGeneric External Data ProviderNOMS External Department UnsolicitedStart: 11-22-2024 End: 86-89-4388Ldaonuurx Result EncounterGeneric External Data ProviderNOMS External Department UnsolicitedStart: 11-22-2024 End: 37-64-7122Nwwzxa outpatient visit 25 minutesAdagwen Sánchez MD Work Phone: Hematology/OncologyComment on above:Rectal cancer (HCC) (Primary Dx)Start: 11-22-2024 End: 40-72-4750Hxtkxxk encounter procedureSherrie Monson MD Work Phone: Radiation OncologyComment on above:Rectal cancer (HCC) (Primary Dx)Start: 11-22-2024 End: 55-75-6992wjutomqwedZDQHZH VENNEPUREDDYFacility:[facility] Start: 11-19-2024 End: 55-52-9657herlsbknetMLBIO MABALAY ALDAFacility:[facility] Start: 11-18-2024 End: 47-48-4023bbrxgximcgBQFEO MABALAY ALDAFacility:[facility] Start: 11-17-2024 End: 98-29-5605awzfqjfjdjQQOVO MABALAY ALDAFacility:[facility] Start: 11-16-2024 End: 25-72-7513ukvonzlsuwIHNEE MABALAY ALDAFacility:[facility] Start: 11-15-2024 End: 09-53-5547Slfiqolhj encounterTifluis Ballard RN Work Phone: Hematology/OncologyComment on above:Care Coordination (C1D1 treatment follow up call)Start: 11-15-2024 End: 69-25-8677Eogbuqz encounter procedureG Jack Monson MD Work Phone: Radiation OncologyComment on above:Rectal cancer (HCC) (Primary Dx)Start: 11-15-2024 End: 21-06-9191umocymtghvCTQVQ MABALAY ALDAFacility:[facility] Start: 11-12-2024 End: 94-44-4223tzbnqdugyiFZBKD MABALAY ALDAFacility:[facility] Start: 11-11-2024 End: 38-15-3300bvkdfrhqdqVRHGF MABALAY ALDAFacility:[facility] Start: 11-11-2024 End: 01-30-9369Miltqnfho encounterTifluis Ballard RN Work Phone: Hematology/OncologyComment on above:Care Coordination (Radiation question)Start: 11-10-2024 End: 09-68-6559ekaapliuebOJLDK MABALAY ALDAFacility:[facility] Start: 11-09-2024 End: 66-76-3329jcuxjyaobeQXXCP MABALAY ALDAFacility:[facility] Start: 11-08-2024 End: 06-29-9391Arvboarjb Result EncounterGeneric External Data ProviderNOMS External Department UnsolicitedStart: 11-08-2024 End: 86-09-4770Spztwmcea Result EncounterGeneric External Data ProviderNOMS External Department UnsolicitedStart: 11-08-2024 End: 46-28-0765Ksfqprayp encounterAdagwen Sánchez MD Work Phone: cancer Appts MCComment on above:Port PlacementStart: 11-08-2024 End: 04-99-8284Tlicppz evaluation of patient and reportTifluis Ballard RN Work Phone: Hematology/OncologyComment on above:Rectal cancer (HCC) (Primary Dx)Start: 11-08-2024 End: 40-01-9194Hrhxqb outpatient visit 25 minutesAdagwen Sánchez MD Work Phone: Hematology/OncologyComment on above:Rectal cancer (HCC) (Primary Dx)Start: 11-08-2024 End: 63-38-3449Jhmxboy encounter Mavis Martin MD Work Phone: Radiation OncologyComment on above:Rectal cancer (HCC) (Primary Dx)Start: 11-08-2024 End: 02-58-9473zbpmtiullkXSWUXC CARYLUREDDYFacility:[facility] Start: 11-05-2024 End: 93-75-0029Ijtxokiuz encounterMariola Ballard RN Work Phone: Hematology/OncologyComment on above:Care Coordination (Treatment planning)Start: 11-04-2024 End: 98-05-9770Lommbzsgw to same day surgery centerTeresa Tucker MD Work Phone: Colorectal SurgeryComment on above:Rectal cancer (HCC) (Primary Dx)Start: 11-04-2024 End: 14-97-3434lpbmgfbvhxAVVRB MABMANOLO ALDAFacility:[facility] Start: 11-04-2024 End: 64-77-2703Uybjrsckdhfl consultation with Alverto Tucker MD Work Phone: [facility]ect[facility] SurgeryStart: 11-02-2024 End: 70-03-0861Kynkvpbuj encounterHilary Sánchez MD Work Phone: Hematology/OncologyStart: 11-01-2024 End: 03-63-7062ucbvcadacuOWWOCD CARYLUREDDYFacility:[facility] Start: 11-01-2024 End: 08-15-0878Rfrekzoij Result EncounterGeneric External Data ProviderNOMS External Department UnsolicitedStart: 11-01-2024 End: 80-94-7664Ywidvqrbb Result EncounterGeneric External Data ProviderNOMS External Department UnsolicitedStart: 11-01-2024 End: 74-79-4009Akmvbu outpatient visit 25 minutesAdagwen Sánchez MD Work Phone: Hematology/OncologyComment on above:Rectal cancer (HCC) (Primary Dx)Start: 50-91-8847tnjwoluxkrGLTHCQU [facility] CENTERROFacility:[facility] Hospitaltart: 10-28-2024 End: 34-00-0799Wmvztnoug encounterKarsammy RepasyRadiologyComment on above: Appointment (Appointment reminder call--spoke with patient--gave directions to the office.)Start: 10-27-2024 End: 90-79-9709ptwjzcazlxYcheglloyw Danny RD Work Phone: Nutrition TherapyStart: 10-27-2024 End: 52-58-3164Hrdhulbcr therapyJacqueline Danny RD Work Phone: Nutrition TherapyComment on above:Nutrition Assessment Start: 10-27-2024 End: 51-97-1355yqcplrbudoXZVLG MABMANOLO ALDAFacility:[facility] Start: 10-27-2024 End: 22-40-0250Hfzjkbyeqq hospital visit by physicianArrival Time Radiology Work Phone: Radiology Pet CTComment on above:Rectal mass [K62.89] Start: 10-26-2024 End: 96-81-3995Bzikobm encounter procedureSherrie Monson MD Work Phone: Radiation OncologyStart: 10-26-2024 End: 62-26-9999Pzjlayjec Oncology NoteG Jack Monson MD Work Phone: Radiation OncologyComment on above:Simulation Note Treatment PlanningStart: 10-26-2024 End: 17-00-4187Tlohde WorkLorlaura CHILDWHematology/OncologyComment on above: Rectal cancer (HCC) (Primary Dx)Start: 10-18-2024 End: 39-76-6579Gnnmqihpe encounterG Jack Monson MD Work Phone: Radiation OncologyComment on above:AppointmentStart: 10-18-2024 End: 16-69-5351Zoztft outpatient new 60 minutesAdarsh Gonzalo [place] Work Phone: Hematology/OncologyComment on above:Rectal cancer (HCC) (Primary Dx)Start: 10-18-2024 End: 66-10-3902bbgxnrfzflAdxuns E Graves RNRadiation OncologyComment on above: Patient EducationStart: 10-18-2024 End: 82-85-9172Lwqxis outpatient new 45 minutesG Jack Monson MD Work Phone: Radiation OncologyComment on above:Rectal cancer (HCC) Start: 10-14-2024 End: 14-88-3337Wewddecrd encounterTeresa Tucker MD Work Phone: Colorectal SurgeryComment on above:Request Outside Medical Records (pathology)Rectal cancer (HCC) (Primary Dx)Start: 10-07-2024 End: 00-08-5022fatptuumodGEXZRWAbe CLEMENTEFacility:[facility] Hospitaltart: 10-07-2024 End: 12-90-9474Oshpigv encounter procedureTeresa Tucker MD Work Phone: Colorectal SurgeryComment on above:Rectal mass (Primary Dx)Start: 10-01-2024 End: 19-08-4094ohevpkourfWJTDSE VARGAS VNot AvailableStart: 10-01-2024 End: 32-01-0510Lzgify follow up visit related to original Mann Clemente MD Work Phone: noms ST GENSComment on above:Obstruction of rectum (Primary Dx); Rectal cancer (CMS/HCC); Malignant neoplasm of colon, unspecified part of colon (CMS/HCC)Start: 09-24-2024 End: 25-04-4680Tdcpsrio Result Dave Clemente MD Work Phone: noms External Department UnsolicitedStart: 09-24-2024 End: 95-80-9134Aewcwdpq Result Dave Cleaning MD Work Phone: noms External Department UnsolicitedStart: 09-24-2024 End: 58-69-8499Hlpzvnxtn to same day surgery centerRashaun Torres MD Work Phone: [facility] CampusStart: 09-24-2024 End: 73-03-3514qawxwyoyxdJdkmh M AldaFacility:[facility] Start: 09-14-2024 End: 06-84-7777Iduub of hemosiderin, Richie Torres MD Work Phone: noms HealthcareStart: 09-14-2024 End: 69-60-3693Hjdiqw outpatient visit 25 minutesRashaun Torres MD Work Phone: noms CI FMComment on above:Routine general medical examination at health care facility (Primary Dx); Abnormal glucose tolerance test; Benign essential hypertension (CMS/HCC); Nocturia; Type 2 diabetes mellitus with diabetic neuropathy, without long-term current use of insulin ([facility]); Medicare annual wellness visit, initial; Screening for lipid disorders; Myalgia; Smoker; Unspecified protein-calorie malnutrition (CMS/HCC); Immunodeficiency due to conditions classified elsewhere ([facility]); Cigarette smokerStart: 09-14-2024 End: 25-69-4466Flxgeyn encounter procedureRashaun Torres MD Work Phone: noms HealthcareStart: 09-14-2024 End: 90-74-7456rvgsvyzwobRVGOZ M ALDANot AvailableStart: 09-14-2024 End: 78-36-8628Zgpeoe Rajeev Torres MD Work Phone: noms CI FMStart: 09-14-2024 End: 96-25-9118Vbqpnp Rajeev Torres MD Work Phone: noms CI FMStart: 09-07-2024 End: 74-65-0212Dggnrx outpatient new 45 minutesAdonay Clemente MD Work Phone: noms ST GENSComment on above:Change in bowel habits (Primary Dx); Blood in stool; Slow transit constipationStart: 09-07-2024 End: 98-09-0342ljojatzcqhPWLPPX VARGAS VNot AvailableStart: 08-02-2024 End: 78-66-2710Uajokb outpatient visit 25 minutesRashaun Torres MD Work Phone: NOMS CI FMComment on above:Type 2 diabetes mellitus with diabetic neuropathy, without long-term current use of insulin (CMS/HCC) (Primary Dx); Benign essential hypertension (CMS/HCC); Slow transit constipation; Blood in stoolStart: 08-02-2024 End: 18-32-5482vyiwcsednaQXUDK M ALDANot AvailableStart: 09-01-2023 End: 65-24-9354Iiwlvux encounter procedureRashaun Torres MD Work Phone: noms HealthcareStart: 92-45-2355Zavdhbqqt department patient visitFacility:[facility]ERtart: 09-11-2021 End: 34-34-5196rudzkbjmuoDP LEONIDAS LINCOLNFacility:W1Engfv: 07-06-2021 End: 93-23-9696idamcnslhyPR LEONIDAS LINCOLNFacility:S5Azmev: 12-15-2020 End: 74-48-7330nwicjtwzlrGV NONE LISTED REQUESTFacility:H1 Procedures DateProcedureProcedure DetailPerforming ClinicianStart: 00-78-5672Uejsubgosu glycosylated p0zNksepRashaun Torres MD Work Phone: Start: 15-45-6389VFKJ PATH BX REPORTGeneric External Data ProviderStart: 44-63-9443Zubbqfno screenTERESA HUNTERROComment on above: Order Comment: Specimen Type: BLOOD SPECIMENOrdering Facility: [facility] Address:[address] [place], [place] [address]Performed By: #### [facility] ####DARIEN BLOOD BANKCLIA [id number] [place] [address] [place] AMERICAStart: 06-10-2025 End: 38-82-1271Qdy routine ecg w/least 12 lds i&r onlyChristine Refugio WAITER/WAITRESS DINING CAR.SURGICAL SERVICES COORDINATOR Work Phone: Start: 08-90-0046PSB CBC W AUTO DIFF BLDGeneric External Data ProviderStart: 46-06-7672Edqns count complete auto&auto difrntl wbcTeresa Tucker MD Work Phone: Start: 72-15-9256Cqf pelvis w/o & w/contrast material Hilary Sánchez MD Work Phone: start: 46-62-6320BAX RECTUM WO/W IVCONGeneric External Data ProviderStart: 29-42-7179Bgadmuvb fiberoptic sigmoidoscopyRashaun Torres MD Work Phone: Start: 44-81-4979CS ABD/PEL W IVCONGeneric External Data ProviderStart: 35-68-9111Eh abdomen & pelvis w/contrast materialHilary Sánchez MD Work Phone: start: 38-14-5937Qb thorax w/contrast materialGeneric External Data ProviderStart: 49-93-6939VYY CREATININE + EGFR PNL SERPLBLDGeneric External Data ProviderStart: 86-84-6340GNYBVENZMW BLDAlarry Sánchez MD Work Phone: Start: 71-08-0711VST CBC W AUTO DIFF BLDGeneric External Data ProviderStart: 38-94-3250Kcmqr count complete auto&auto difrntl wbcAdagwen Sánchez MD Work Phone: start: 80-21-6403OGM COMP METAB 2000 PNL SERPLGeneric External Data ProviderStart: 47-46-4619VJE MAGNESIUM SERPL-MCNCGeneric External Data ProviderStart: 18-77-0170Mcort count complete auto&auto difrntl wbcHilary Sánchez MD Work Phone: Start: 23-91-6176UOJ CBC W AUTO DIFF BLDGeneric External Data ProviderStart: 81-43-8439Xhqzu count complete auto&auto difrntl wbcAdagwen Sánchez MD Work Phone: Start: 40-50-6492SAX CBC W AUTO DIFF BLDGeneric External Data ProviderStart: 23-12-1246AMD CBC W AUTO DIFF BLDGeneric External Data ProviderStart: 85-57-8489Fvelj count complete auto&auto difrntl wbcAdagwen Etiennedy MD Work Phone: start: 35-33-3446LCJ CBC W AUTO DIFF BLDGeneric External Data ProviderStart: 85-66-0058Jratq count complete auto&auto difrntl wbcHolly Marlo WAITER/WAITRESS DINING CAR.SURGICAL SERVICES COORDINATOR Work Phone: Start: 42-57-9202DXA CBC W AUTO DIFF BLDGeneric External Data ProviderStart: 04-20-0445Ayhoq count complete auto&auto difrntl wbcHolly Marlo WAITER/WAITRESS DINING CAR.SURGICAL SERVICES COORDINATOR Work Phone: Start: 70-95-0345UZN CBC W AUTO DIFF BLDGeneric External Data ProviderStart: 85-86-8055Knudu count complete auto&auto difrntl wbcJaimee Liam WAITER/WAITRESS DINING CAR.SURGICAL SERVICES COORDINATOR Work Phone: Start: 27-30-9592Nnjfv count complete auto&auto difrntl wbcCong Up PA-C Work Phone: Start: 39-52-5584Fpfrz chest X-rayRashaun Torres MD Work Phone: Start: 21-78-2200DY Infusaport Insertion/Removal (Not Applicable)Rashaun Torres MD Work Phone: Start: 12-96-7795RFE CBC W AUTO DIFF BLDGeneric External Data ProviderStart: 57-15-1191NBJ CBC W AUTO DIFF BLDGeneric External Data ProviderStart: 84-47-5871MBI CBC W AUTO DIFF BLDGeneric External Data ProviderStart: 46-95-4337YTJ REFERRAL FOR ADDITIONAL BIOMARKER AND MOLECULAR TESTINGGeneric External Data ProviderStart: 33-26-6330Cm abdomen & pelvis w/contrast Adelfo Tucker MD Work Phone: Start: 68-49-4735Iq thorax w/contrast Adelfo Tucker MD Work Phone: Start: 33-52-7868JQXGKRYLU REQUEST FOR LAB Tracy Clemente MD Work Phone: Start: 09-24-2024 End: 87-02-5237InwcfdegsukQlkbcd Vargas V, MD Work Phone: Start: 38-08-2080UcmjsedxnevBqoic Alda MD Work Phone: Start: 33-72-3966Qgcqkqmtey glycosylated y2hSdwseRasahun Torres MD Work Phone: Plan of Treatment DateCare ActivityDetailAuthorStart: 61-22-9861Vwkvlnnot for malignant neoplasm of colonNOMS HealthcareStart: 31-84-5404Qbnphwber for malignant neoplasm of colonNOMS HealthcareStart: 19-72-5517RBW Vaccine (1 - 1-dose 75+ series)RSV Vaccine (1 - 1-dose 75+ series)[facility]tart: 66-25-9680Pgrvzpyu specific antigen measurementProstate Cancer Screening DiscussionOhiohealth Hardin Memorial Hospital Start: 14-72-8849Ivelafml ScreeningDiabetes ScreeningSelect Medical [facility], Beachwoodtart: 78-76-1587Cybgfrfl ScreeningDiabetes ScreeningSelect Medical [facility], Beachwoodtart: 04-05-2028 Diabetes ScreeningDiabetes ScreeningSelect Medical [facility], Beachwoodtart: 34-99-7046Pybmqzfa ScreeningDiabetes ScreeningSelect Medical [facility], Beachwoodtart: 46-61-4051Fgbeglwk Screening Diabetes ScreeningSelect Medical [facility], Beachwoodtart: 47-38-4572Adbdkkdw ScreeningDiabetes ScreeningSelect Medical [facility], Beachwoodtart: 48-58-1902Imnyhuyn ScreeningDiabetes Screening [facility] Beachwoodtart: 75-87-5249Axpfusia ScreeningDiabetes ScreeningSelect Medical [facility], Beachwoodtart: 75-09-2786Xewpfjrs ScreeningDiabetes ScreeningOhiohealth Hardin Memorial Hospital Start: 35-85-2739Mjhhvjeg ScreeningDiabetes ScreeningSelect Medical [facility], Beachwoodtart: 63-30-6227Yltnrrav ScreeningDiabetes ScreeningSelect Medical [facility], Beachwoodtart: 12-07-2027 Diabetes ScreeningDiabetes ScreeningSelect Medical [facility], Beachwoodtart: 40-87-1895Fzjyllim ScreeningDiabetes ScreeningSelect Medical [facility], Beachwoodtart: 49-59-6339Zbqfilli Screening Diabetes ScreeningSelect Medical [facility], Beachwoodtart: 79-07-7427Bzjvzdje ScreeningDiabetes ScreeningSelect Medical [facility], Beachwoodtart: 37-34-5230Acmcpgne ScreeningDiabetes Screening [facility]tart: 45-01-0261Gmsnwanrm for malignant neoplasm of lungLung Cancer ScreeningSelect Medical [facility], Beachwoodtart: 04-01-2026Medicare Annual Wellness (AWV) Medicare Annual Wellness (AWV)NOM HealthcareStart: 31-52-0646Samnmsckm for malignant neoplasm of lungLung Cancer ScreeningSelect Medical [facility], Beachwoodtart: 09-27-2025 Hemoglobin A1c measurementDiabetes: Hemoglobin P1QFPXI HealthcareStart: 47-07-5690Rlpsxuzzqloc Vaccine: 65+ Years (1 of 2 - PCV)Pneumococcal Vaccine: 65+ Years (1 of 2 - PCV)NOM HealthcareComment on above:Postponed from 1964 (Patient Refused)Postponed from 1977 (Patient Refused)Start: 07-15-2025 End: 01-01-4065Ysipxl-up gzuerdgti83/10/2025 9:40 AM EDT Visit (SP) Office Hematology/Oncology [address] [place], [place] [phone] Hilary Sánchez MD [address] [place] [address] 6 week follow upHematology/OncologyComment on above:6 week follow upStart: 07-08-2025 End: 01-64-9044Datdohm encounter etnhuiess58/03/2025 1:40 PM EDT Office Visit Colorectal Surgery [facility] [address] [place], [place] [id number] Alejandra Ponce, WAITER/WAITRESS DINING CAR.SURGICAL SERVICES COORDINATOR [address] [address] [place] [address] PostOp: 2wk f/up, robotic LAR and DLI, 06/17 AKColorectal SurgeryComment on above:PostOp: 2wk f/up, robotic LAR and DLI, 06/17 AKStart: 06-28-2025 End: 62-69-2053Auaexdu encounter /23/2025 10:30 AM EDT Office Visit CHRISTOPHER Choudhary [address] [facility] [address] [place] [address] Rashaun Torres MD [address] [facility] [address] [place] [address] [facility]nceStart: 2025 End: 22-92-9863Erscnpbgm to same day surgery ferfap7406/17/2025 7:30 AM EDT - 2025 1:50 PM EDT Surgery [facility] Operating Room [address] [place] [address] Teresa Tucker MD [id number] [place] [address] ROBOTIC LAPAROSCOPIC HEMICOLECTOMY WITH ANASTOMOSIS,COLOPROCTOSTOMY AND [facility]OSTOMYRos[facility]ind[facility] Operating Room Comment on above:ROBOTIC LAPAROSCOPIC HEMICOLECTOMY WITH ANASTOMOSIS,COLOPROCTOSTOMY AND COLOSTOMYStart: 2025 End: 54-69-9981Ezqs colectmy prtl w/colopxtstmy lw anast w/clstROBOTIC LAPAROSCOPIC HEMICOLECTOMY WITH ANASTOMOSIS,COLOPROCTOSTOMY AND COLOSTOMY Rectal cancer (HCC) 2025 7:30 AM EDTFV ORStart: 93-70-6634Fmgjrhnqod hospital visit by wsqobdbyz42/12/2025 7:30 AM EDT Hospital Encounter [facility] Operating Room [address] [place] [address] Teresa Tucker MD [id number] [place] [address] Rectal cancer (HCC) [C20][facility] Operating RoomComment on above:Rectal cancer (HCC) [C20]Start: 06-10-2025 End: 78-64-9099Frpewzjqc to hxzuuaeoyqcfk34/05/2025 12:50 PM EDT PAT Pre Anesthesia [address] [place] [address] pre admission testingPre AnesthesiaComment on above:pre admission testingStart: 06-10-2025 End: 50-18-9870Smlpyhv encounter lqaedjmfp62/05/2025 9:00 AM EDT Office Visit Colorectal Surgery [address] [facility] [address] [place], [place] [id number] Richard Santos APRN.SURGICAL SERVICES COORDINATOR [address] [place] [address] stoma markersColorectal SurgeryComment on above:stoma markers Start: 60-49-2240AimxqiuvwChildren's Hospital of Richmond at VCUStart: 05-31-2025 End: 63-27-4536Vfcbda-up encounterHematology/OncologyComment on above:4 week follow up / MRI at Main on 05-19-25.Start: 05-26-2025 End: 35-50-2130[facility] W Auto Differential panel - BloodCOMPLETE BLOOD COUNT AND DIFFERENTIAL Lab Routine Rectal cancer (HCC) Expected: 05/26/2025 (Approximate), Expires: 08/25/2025[facility] Work Phone: Comment on above:Expected: 05/26/2025 (Approximate), Expires: 08/25/2025Start: 05-26-2025 End: 71-98-0876Psboqofdfkrqk metabolic 2000 panel - Serum or PlasmaCOMPREHENSIVE METABOLIC PANEL Lab Routine Rectal cancer (HCC) Expected: 05/26/2025 (Approximate), Expires: 08/25/2025[facility] ClinicComment on above:Expected: 05/26/2025 (Approximate), Expires: 08/25/2025Start: 05-26-2025 End: 45-35-4355Xtaomek encounter ginlskrbd13/21/2025 9:40 AM EDT Office Visit Colorectal Surgery [address] [place], [place] [phone] [place] [address] [address] [place], [place] [phone] Follow up for surgical opinionColorectal SurgeryComment on above:Follow up for surgical opinionStart: 05-25-2025 End: 72-79-3228Suiuzrs encounter njhypxdvl85/20/2025 10:15 AM EDT Office Visit [facility] [address] [place] [phone] Adonay Clemente MD [address] [place] [address] [facility] Surgical AssociatesStart: 05-19-2025 End: 69-73-4625Lalvalt encounter yyehwnnic06/14/2025 6:30 PM EDT Appointment MRI Q [address] [address] MRI Rectum w/wo Dr NegreteI QComment on above:MRI Rectum w/wo Dr SánchezStart: 05-16-2025 End: 84-40-7640EucniyqvqTriHealth Bethesda North Hospitaltart: 05-10-2025 End: 66-79-2958Ecblosb encounter uajnwavhi90/05/2025 1:45 PM EDT [facility] [address] [place] [phone] Adonay Clemente MD [address] [place] [address] [facility] VENTURAtart: 05-03-2025 End: 14-59-2688Tnvfni-up xefhmhnfb85/29/2025 9:40 AM EDT Visit (SP) Office Hematology/Oncology [address] [facility] [address] [place], [place] [phone] Hilary Sánchez MD [address] [facility] [place] [address] 4 week follow up after scansHematology/OncologyComment on above:4 week follow up after scansStart: 04-27-2025 End: 95-71-2087Sorevysxcj and Glomerular filtration rate.predicted panel - Serum, Plasma or BloodCREATININE BLD Lab Routine Rectal cancer (HCC) Expected: 04/27/2025 (Approximate), Expires: 07/27/2025[facility] Work Phone: Comment on above:Expected: 04/27/2025 (Approximate), Expires: 07/27/2025Start: 04-27-2025 End: 77-29-9372WY Abdomen and Pelvis W contrast IVCT ABD/PEL W IVCON Radiology Routine Rectal cancer (HCC) Expected: 04/27/2025 (Approximate), Expires: 04/22/2026[facility] ClinicComment on above:Expected: 04/27/2025 (Approximate), Expires: 04/22/2026Start: 04-27-2025 End: 30-48-3392UE Chest W contrast IVCT CHEST W IVCON Radiology Routine Rectal cancer (HCC) Expected: 04/27/2025 (Approximate), Expires:04/22/2026[facility] ClinicComment on above:Expected: 04/27/2025 (Approximate), Expires: 04/22/2026 Start: 04-27-2025 End: 70-03-0787PI Pelvis WO contrastMRI RECTUM WO/W IVCON Radiology Routine Rectal cancer (HCC) Expected: 04/27/2025 (Approximate), Expires: 04/22/2026 [facility] Work Phone: Comment on above:Expected: 04/27/2025 (Approximate), Expires: 04/22/2026Start: 04-27-2025 End: 43-17-1558Srmvnau encounter yacfohoac36/23/2025 9:45 AM EDT Appointment Radiology Pet CT [address] [facility] [place] [address] CT CAP with contrast in 5 weeksRadiology Pet CTComment on above:CT CAP with contrast in 5 weeksStart: 04-25-2025 End: 35-95-2021Nbyxxzs encounter procedureRadiologyComment on above:MRI Rectum w/wo Dr Hilary HutsonureddyStart: 04-07-2025 End: 78-45-3339lrmzrrigjg73/03/2025 11:00 AM EDT Infusion Center Hematology/Oncology [address] [facility] [place] [address] pump disconnectHematology/OncologyComment on above:pump disconnectStart: 04-05-2025 End: 74-12-1725Mbutce-up encounterHematology/OncologyComment on above:lab follow up and chemotx FOLFOX2 week lab follow up and chemotx FOLFOXStart: 03-30-2025 End: 91-89-5483Inltvla encounter lcrzlivsr07/25/2025 1:00 PM EDT Office Visit Radiation Oncology [address] [facility] [place] [address] Sherrie Monson MD [address] [facility] [place] [address] 3 MONTH FOLLOW UPRadiation OncologyComment on above:3 MONTH FOLLOW UPStart: 03-25-2025 End: 26-34-4304pnrpmeyuia70/20/2025 11:30 AM EDT Infusion Center Hematology/Oncology [address] [facility] [place] [address] pump disconnectHematology/OncologyComment on above:pump disconnectStart: 03-23-2025 End: 86-13-6495JDF W Auto Differential panel - BloodCOMPLETE BLOOD COUNT AND DIFFERENTIAL Lab Routine Rectal cancer (HCC) Expected: 03/23/2025 (Approximate), Expires: 06/22/2025[facility] Work Phone: comment on above:Expected: 03/23/2025 (Approximate), Expires: 06/22/2025Start: 03-23-2025 End: 83-40-9301Yzqummdlglbqb metabolic 2000 panel - Serum or PlasmaCOMPREHENSIVE METABOLIC PANEL Lab Routine Rectal cancer (HCC) Expected: 03/23/2025 (Approximate), Expires: 06/22/2025[facility] AndersonComment on above:Expected: 03/23/2025 (Approximate), Expires: 06/22/2025Start: 03-23-2025 End: 38-45-8331Xoudgoycs [Mass/volume] in Serum or PlasmaMAGNESIUM Lab Routine Rectal cancer (HCC) Expected: 03/23/2025 (Approximate), Expires: 06/22/2025 [facility] HospitalComment on above:Expected: 03/23/2025 (Approximate), Expires: 06/22/2025Start: 03-23-2025 End: 69-21-6772Cfhecyl encounter /18/2025 9:30 AM EDT Office Visit Radiation Oncology [address] [facility] [place] [address] Sherrie Monson MD [address] [facility] [place] [address] 3 MONTH FOLLOW UPRadiation OncologyComment on above:3 MONTH FOLLOW UPStart: 03-23-2025 End: 80-26-1269Wyqbua-up encounterHematology/OncologyComment on above:lab follow up and chemotx FOLFOX2 week lab follow up and chemotx FOLFOXStart: 03-11-2025 End: 26-40-5480dwpxpdzcbv70/06/2025 11:00 AM EDT Infusion Center Hematology/Oncology [address] [facility] [place] [address] pump disconnectHematology/OncologyComment on above:pump disconnectStart: 03-09-2025 End: 35-43-4430Vmiemi-up encounterHematology/OncologyComment on above:lab follow up and chemotx FOLFOX2 week lab follow up and chemotx FOLFOXStart: 02-25-2025 End: 38-12-8283xdmgfxugtn20/23/2025 10:30 AM EDT Infusion Center Hematology/Oncology [address] [place] [address] [place] [address] pump disconnectHematology/OncologyComment on above:pump disconnectStart: 02-23-2025 End: 36-17-0570Ehsjlw-up encounterHematology/OncologyComment on above:lab follow up and chemotx FOLFOXStart: 02-11-2025 End: 79-56-8084krmrnozztm32/09/2025 10:30 AM EDT Infusion Center Hematology/Oncology [address] [place] [address] [place] [address] pump disconnectHematology/OncologyComment on above:pump disconnectStart: 02-09-2025 End: 52-73-1673Bbojzwsmzqnzadcb Ag [Mass/volume] in Serum or Plasma CARCINOEMBRYONIC ANTIGEN Lab Routine Rectal cancer (HCC) Expected: 02/09/2025, Expires: 05/11/2025[facility] ClinicComment on above:Expected: 02/09/2025, Expires: 05/11/2025Start: 02-09-2025 End: 26-66-9657NXB W Auto Differential panel - BloodGlenbeigh Hospital Work Phone: comment on above:Expected: 02/09/2025 (Approximate), Expires: 05/11/2025Expected: 02/09/2025, Expires: 05/11/2025Start: 02-09-2025 End: 27-85-5637Ojkjridllvehm metabolic 2000 panel - Serum or PlasmaOhiohealth Hardin Memorial HospitalComment on above:Expected: 02/09/2025 (Approximate), Expires: 05/11/2025 Expected: 02/09/2025, Expires: 05/11/2025Start: 02-09-2025 End: 11-11-5864Vupspj-up encounterHematology/OncologyComment on above:lab follow up and chemotx FOLFOXStart: 01-28-2025 End: 10-31-5183qvfsiyhdcz63/25/2025 10:30 AM [facility] Infusion Center Hematology/Oncology [address] [place] [address] [place] [address] pump disconnectHematology/OncologyComment on above:pump disconnectStart: 01-26-2025 End: 26-70-3222Mvwfitrarxduvudq Ag [Mass/volume] in Serum or PlasmaOhiohealth Hardin Memorial HospitalComment on above:Expected: 01/26/2025, Expires: 04/27/2025Start: 01-26-2025 End: 65-53-1874HUM W Auto Differential panel - BloodCOMPLETE BLOOD COUNT AND DIFFERENTIAL Lab Routine Rectal cancer (HCC) Expected: 01/26/2025, Expires: 04/27/2025[facility] Work Phone: Comment on above:Expected: 01/26/2025, Expires: 04/27/2025Start: 01-26-2025 End: 50-48-2630Ordhjcvrqcsll metabolic 2000 panel - Serum or PlasmaCOMPREHENSIVE METABOLIC PANEL Lab Routine Rectal cancer (HCC) Expected: 01/26/2025, Expires: 04/27/2025[facility] ClinicComment on above:Expected: 01/26/2025, Expires: 04/27/2025Start: 01-26-2025 End: 10-67-0260Veeiwbcuq cvuvhcc3101/26/2025 9:15 AM EDT Education Nutrition Therapy [address] [facility] [place] [address] Joyce Valles, RD [address] [facility] [place] [address] SEE IN TXNutrition TherapyComment on above:SEE IN TXStart: 01-26-2025 End: 16-30-9766Yjwysm-up encounterHematology/OncologyComment on above:lab follow up and chemotx FOLFOXStart: 01-14-2025 End: 00-29-6146oipufpdrre82/11/2025 10:30 AM EDT Infusion Center Hematology/Oncology [address] [facility] [place] [address] pump disconnectHematology/OncologyComment on above:pump disconnectStart: 01-12-2025 End: 09-82-3231Leutyixya therapyNutrition TherapyComment on above:SEE IN TX ArrivedStart: 01-12-2025 End: 60-61-5828Rhnmuw-up encounterHematology/OncologyComment on above:lab follow up and chemotx FOLFOXStart: 01-07-2025 End: 10-55-6057IGD W Auto Differential panel - BloodCOMPLETE BLOOD COUNT AND DIFFERENTIAL Lab Routine Rectal cancer (HCC) Expected: 01/07/2025, Expires: 04/08/2025[facility] Work Phone: Comment on above:Expected: 01/07/2025, Expires: 04/08/2025Start: 01-07-2025 End: 85-10-4489Udqafntrbcpsg metabolic 2000 panel - Serum or PlasmaCOMPREHENSIVE METABOLIC PANEL Lab Routine Rectal cancer (HCC) Expected: 01/07/2025, Expires: 04/08/2025[facility] ClinicComment on above:Expected: 01/07/2025, Expires: 04/08/2025Start: 01-06-2025 End: 06-23-7606Yqblra-up encounterHematology/OncologyComment on above:7-10 day follow upStart: 01-04-2025 End: 23-61-2748Yglekbu encounter svvhoqbpo62/01/2025 3:00 PM EDT Office Visit [facility] [address] [facility] [address] [place] [address] Mily Quach PA [address] [facility] [address] [place] [address] ArrivedNOMS CI FMComment on above:ArrivedStart: 12-31-2024 End: 23-35-1269lxflzsxbzm42/28/2025 10:30 AM EDT Infusion Center Hematology/Oncology [address] [place] [address] [place] [address] pump disconnectHematology/OncologyComment on above:pump disconnectStart: 12-30-2024 End: 12-42-1549Fkeeodifvmwetojp Ag [Mass/volume] in Serum or Plasma CARCINOEMBRYONIC ANTIGEN Lab Routine Rectal cancer (HCC) Expected: 12/30/2024, Expires: 03/31/2025[facility] ClinicComment on above:Expected: 12/30/2024, Expires: 03/31/2025Start: 12-30-2024 End: 79-83-3092DYX W Auto Differential panel - BloodCOMPLETE BLOOD COUNT AND DIFFERENTIAL Lab Routine Rectal cancer (HCC) Expected: 12/30/2024, Expires: 03/31/2025[facility] Work Phone: Comment on above:Expected: 12/30/2024, Expires: 03/31/2025Start: 12-30-2024 End: 35-95-7635Bbdpwkwnxljpa metabolic 2000 panel - Serum or PlasmaCOMPREHENSIVE METABOLIC PANEL Lab Routine Rectal cancer (HCC) Expected: 12/30/2024, Expires: 03/31/2025[facility] ClinicComment on above:Expected: 12/30/2024, Expires: 03/31/2025Start: 12-29-2024 End: 92-66-8434Fxkinkm encounter eswdqwisl12/26/2025 1:00 PM EDT Office Visit Radiation Oncology [address] [facility] [place] [address] Sherrie Monson MD [address] [facility] [place] [address] Final radiation follow upRadiation OncologyComment on above: Final radiation follow upStart: 12-29-2024 End: 75-83-5265Insrgn-up encounterHematology/OncologyComment on above:lab follow up and chemotx FOLFOXStart: 12-15-2024 End: 48-95-5220Togxehpcx wgacpgj8912/15/2024 9:15 AM EDT Education Nutrition Therapy [address] [facility] [place] [address] [facility] [place] [address] SEE AFTERRTNutrition TherapyComment on above:SEE AFTER RTStart: 12-15-2024 End: 30-74-1080Qqjtfln encounter procedureRadiation OncologyComment on above: Pelvis boostPelvis boost- OTV todayLocation: SA-ON TREATMENT REVStart: 12-14-2024 End: 55-26-7634Oaoxuvy encounter mrfyqzmkr26/11/2025 8:45 AM EDT Appointment Radiation Oncology [address] [facility] [place] [address] Pelvis boostRadiation OncologyComment on above:Pelvis boostStart: 12-13-2024 End: 39-52-7554Rsbvgrp encounter procedureRadiation OncologyComment on above: Pelvis boostLocation: SA-ON TREATMENT REVStart: 12-10-2024 End: 36-37-1544Xjrsvco encounter cazwoztkm94/07/2025 8:45 AM EST Appointment Radiation Oncology [address] [facility] [place] [address] Pelvis Radiation OncologyComment on above:PelvisStart: 12-09-2024 End: 24-83-5064Ybzoyxt evaluation of patient and jirodl8712/09/2024 9:00 AM EST Nurse Visit Hematology/Oncology [address] [place] [address] Mariola Ballard, RN [address] [place] [address] FOLFOX EDUCATIONHematology/OncologyComment on above:FOLFOX EDUCATION Start: 12-09-2024 End: 09-51-9912Wseywlo encounter pdubgpzvm29/06/2025 8:45 AM EST Appointment Radiation Oncology [address] [place] [address] Pelvis Radiation OncologyComment on above:PelvisStart: 12-08-2024 End: 22-86-6545Mlbuqku encounter asebvlinj76/05/2025 2:45 PM EST Appointment Radiation Oncology [address] [place] [address] Pelvis - coming from port placementRadiation OncologyComment on above:Pelvis - coming from port placementStart: 68-66-1113LfksywurjTriHealth Bethesda North Hospitaltart: 12-08-2024 End: 00-06-3090Wweyxsm encounter xpgcuzwmm89/05/2025 8:45 AM EST Appointment Radiation Oncology [address] [place] [address] Pelvis Radiation OncologyComment on above:PelvisStart: 86-83-0892TzxkyidjnTriHealth Bethesda North Hospitaltart: 12-07-2024 End: 67-73-0270Ubhwqgl encounter kipqnomxq68/04/2025 8:45 AM EST Appointment Radiation Oncology [address] [place] [address] Pelvis Radiation OncologyComment on above:PelvisStart: 12-06-2024 End: 17-94-0513UEY W Auto Differential panel - BloodCOMPLETE BLOOD COUNT AND DIFFERENTIAL Lab Routine Rectal cancer (HCC) Expected: 12/06/2024, Expires: 03/07/2025[facility] Work Phone: comment on above:Expected: 12/06/2024, Expires: 03/07/2025Start: 12-06-2024 End: 02-76-4267Srejzhmoideww metabolic 2000 panel - Serum or PlasmaCOMPREHENSIVE METABOLIC PANEL Lab Routine Rectal cancer (HCC) Expected: 12/06/2024, Expires: 5[facility] ClinicComment on above:Expected: 12/06/2024, Expires: 03/07/2025Start: 12-06-2024 End: 32-82-2577Xdhnku-up dudelmgcy31/03/2025 10:00 AM EST Visit (SP) Office Hematology/Oncology [address] [place] [address] Cong Up PA-C [address] [place] [address] 2 week follow up w/ XelodaHematology/OncologyComment on above:2 week follow up w/ XelodaStart: 12-06-2024 End: 32-02-3727Bulpdlx encounter procedureRadiation OncologyComment on above: PelvisLocation: SA-ON TREATMENT REV2 week follow up w/ XelodaStart: 12-03-2024 End: 72-86-8918Zxjogsg encounter htgvrpupt81/28/2025 8:45 AM EST Appointment Radiation Oncology [address] [place] [address] Pelvis Radiation OncologyComment on above:PelvisStart: 12-02-2024 End: 31-11-5067Ndlgqca encounter iwsykfimu56/27/2025 8:45 AM EST Appointment Radiation Oncology [address] [place] [address] Pelvis Radiation OncologyComment on above:PelvisStart: 12-01-2024 End: 02-72-3753Iuebwyv encounter nkhpgkryg04/26/2025 8:45 AM EST Appointment Radiation Oncology [address] [place] [address] Pelvis Radiation OncologyComment on above:PelvisStart: 11-30-2024 End: 47-86-8737Tqcuouf encounter jexwnbkpt31/25/2025 8:45 AM EST Appointment Radiation Oncology [address] [place] [address] Pelvis Radiation OncologyComment on above:PelvisStart: 81-63-3320EY PORTOCATH PLACEMENT IR PORTOCATH PLACEMENT Radiology Routine Rectal cancer (HCC) Expected: 11/29/2024leveland [facility] Work Phone: comment on above:Expected: 11/29/2024Start: 11-29-2024 End: 78-88-6682Dbqowzmky keqjwkr6011/29/2024 9:15 AM EST Education Nutrition Therapy [address] [facility] [place] [address] Joyce Valles, RD [address] [facility] [place] [address] SEE AFTERGPENutrition TherapyComment on above:SEE AFTER ELISEOStart: 11-29-2024 End: 94-09-7238Ufdcwrh encounter procedureRadiation OncologyComment on above: PelvisLocation: SA-ON TREATMENT REVPelvis-client services account manager after GPEStart: 11-26-2024 End: 68-88-6797Yldrknu encounter procedureRadiation OncologyComment on above: PelvisStart: 11-25-2024 End: 35-67-6150Ktowzxg encounter procedureRadiation OncologyComment on above: PelvisStart: 11-24-2024 End: 74-83-3636Zkqenom encounter /19/2025 8:45 AM EST Appointment Radiation Oncology [address] [facility] [place] [address] Pelvis Radiation OncologyComment on above:PelvisStart: 11-23-2024 End: 44-50-0447Dlwpqll encounter procedureRadiation OncologyComment on above: PelvisPelvis-make sure bladder is fullStart: 11-22-2024 End: 35-76-8419GWJ W Auto Differential panel - BloodCOMPLETE BLOOD COUNT AND DIFFERENTIAL Lab Routine Rectal cancer (HCC) Expected: 11/22/2024 (Approximate), Expires: 02/21/2025[facility] ClinicComment on above:Expected: 11/22/2024 (Approximate), Expires: 02/21/2025Start: 11-22-2024 End: 49-60-8083Elyfdmysetffa metabolic 2000 panel - Serum or PlasmaCOMPREHENSIVE METABOLIC PANEL Lab Routine Rectal cancer (HCC) Expected: 11/22/2024 (Approximate), Expires: 02/21/2025[facility] ClinicComment on above:Expected: 11/22/2024 (Approximate), Expires: 02/21/2025Start: 11-22-2024 End: 11-28-9722Mjjobq-up nydemekfb19/17/2025 9:30 AM EST Visit (SP) Office Hematology/Oncology [address] [facility] [address] [place], [place] [phone] Hilary Sánchez MD [address] [facility] [place] [address] 2 week follow up w/ XelodaHematology/OncologyComment on above:2 week follow up w/ XelodaStart: 11-22-2024 End: 89-48-3419Qvcnssj encounter procedureRadiation OncologyComment on above: Pelvis2 week follow up w/ XelodaPelvis-make sure bladder is fullLocation: SA-ON TREATMENT REVStart: 11-19-2024 End: 59-97-6010Xkdclwd encounter procedureRadiation OncologyComment on above: PelvisPelvis-make sure bladder is fullStart: 11-18-2024 End: 17-20-4205Pixxvqu encounter procedureRadiation OncologyComment on above: PelvisPelvis-make sure bladder is fullStart: 11-17-2024 End: 20-20-8229Kptjrdg encounter procedureRadiation OncologyComment on above: PelvisPelvis-make sure bladder is fullStart: 11-16-2024 End: 68-67-5154Byaptgq encounter procedureRadiation OncologyComment on above: PelvisPelvis-make sure bladder is fullStart: 11-15-2024 End: 40-61-8282Cqkbsyv encounter procedureRadiation OncologyComment on above: PelvisPelvis-make sure bladder is fullLocation: SA-ON TREATMENT REVStart: 11-12-2024 End: 64-63-8495Wrlaevr encounter procedureRadiation OncologyComment on above: PelvisPelvis-make sure bladder is fullStart: 11-11-2024 End: 57-46-8003Ggaovdg encounter procedureRadiation OncologyComment on above: PelvisPelvis-make sure bladder is fullStart: 11-10-2024 End: 13-65-0997Tnmanfk encounter procedureRadiation OncologyComment on above: PelvisPelvis-make sure bladder is fullStart: 11-09-2024 End: 92-03-7390Mgoanui encounter idkaychfc73/04/2025 2:15 PM EST Appointment Radiation Oncology [address] [facility] [place] [address] Pelvis Radiation OncologyComment on above:PelvisStart: 11-08-2024 End: 81-88-7563Zvwlovkspizdrdwl Ag [Mass/volume] in Serum or Plasma CARCINOEMBRYONIC ANTIGEN Lab Routine Rectal cancer (HCC) Expected: 11/08/2024 (Approximate), Expires: 02/07/2025[facility] ClinicComment on above:Expected: 11/08/2024 (Approximate), Expires: 02/07/2025Start: 11-08-2024 End: 15-61-8684GAK W Auto Differential panel - BloodCOMPLETE BLOOD COUNT AND DIFFERENTIAL Lab Routine Rectal cancer (HCC) Expected: 11/08/2024 (Approximate), Expires: 02/07/2025[facility] Work Phone: comment on above:Expected: 11/08/2024 (Approximate), Expires: 02/07/2025Start: 11-08-2024 End: 91-65-1238Uxciclpaukgoi metabolic 2000 panel - Serum or PlasmaCOMPREHENSIVE METABOLIC PANEL Lab Routine Rectal cancer (HCC) Expected: 11/08/2024 (Approximate), Expires: 02/07/2025[facility] ClinicComment on above:Expected: 11/08/2024 (Approximate), Expires: 02/07/2025Start: 11-08-2024 End: 88-94-1572Ghaytig evaluation of patient and vecubo8711/08/2024 9:00 AM EST Nurse Visit Hematology/Oncology [address] [facility] [place] [address] Mariola Ballard, RN [address] [facility] [place] [address] Chemo EducationHematology/OncologyComment on above:Chemo EducationStart: 11-08-2024 End: 40-46-0319Lrpvjw-up ayqeuikps29/03/2025 8:30 AM EST Visit (SP) Office Hematology/Oncology [address] [facility] [address] [place] [phone] Hilary Sánchez MD [address] [facility] [place] [address] Follow upHematology/OncologyComment on above:Follow up Start: 11-08-2024 End: 40-34-8983Shpacvg encounter hpsmjsqce91/03/2025 8:20 AM EST Office Visit [facility] [address] [facility] [place] [address] labNortTrinity Health [facility] LaboratoryComment on above:labStart: 11-08-2024 End: 85-83-2536Yjmlznt encounter procedureRadiation OncologyComment on above:[place] PELVISPELVIS- would like anytimePELVIS- would like anytime- needs to see Mraco @ 8:30labStart: 11-04-2024 End: 18-36-9455Atjhnbdpe to same day surgery jyjwks5311/04/2024 1:00 PM EST [facility] Colorectal Surgery [address] [address] [id number] [place] [address] [place] [address] Est Pt: To discuss results of Exam Colorectal SurgeryComment on above:Est Pt: To discuss results of ExamStart: 11-03-2024 End: 85-51-9509Odwwytd evaluation of patient and jtwfkn6911/03/2024 9:00 AM EST Nurse Visit Hematology/Oncology [address] [place] [address] [phone] Mariola Ballard, RN [address] [place] [address] Chemo EducationHematology/OncologyComment on above:Chemo EducationStart: 10-12-6451Focbcpqvvq A1c measurementDiabetes: Hemoglobin P6BJWFJ [facility] Start: 31-47-8678Xwvaesumz vaccinationInfluenza Vaccine (#1)[facility] Comment on above:Postponed from 06/06/2024 (Patient Refused)Start: 11-01-2024 End: 87-62-0637Wsocur-up cdkququvi84/27/2025 2:00 PM EST Visit (SP) Office Hematology/Oncology [address] [place], [place] [phone] Hilary Sánchez MD [address] [place] [address] 2 week follow upHematology/OncologyComment on above:2 week follow upStart: 10-29-2024 End: 12-38-7549Illhhud encounter eutglkepj85/24/2025 11:00 AM EST Appointment Radiology [address] [place] [address] MRIrectumRadiology Comment on above:MRI rectumStart: 10-27-2024 End: 12-81-3478Umrzxashw ycegxho7210/27/2024 12:45 PM EST Education Nutrition Therapy [address] [place] [address] [place] [address] Diet Nutrition TherapyComment on above:DietStart: 10-27-2024 End: 85-37-8104Csjqkkl encounter gastitmqc41/22/2025 8:15 AM EST Appointment Radiology Pet CT [address] [place] [address] CT chest, Abd, pel with contrast with labsRadiology Pet CTComment on above:CT chest, Abd, pel with contrast with labsStart: 10-26-2024 End: 37-96-1495Zlcrskg encounter procedureRadiation OncologyComment on above:PRE SIM - PRONE RECTUM, NEEDS CONSENTSIM - PRONE RECTUM, NEEDS CONSENTStart: 10-13-2024 End: 26-93-7048Rbfbqowrfqti / ancillary services papkbxuvif73/08/2025 10:30 AM EST Ancillary Procedure [facility] [address] [place] [address] QATL FNR CTStart: 10-07-2024 End: 44-82-4127Ppwksgtdsznqtbqg Ag [Mass/volume] in Serum or Plasma CARCINOEMBRYONIC ANTIGEN Lab Routine Rectal mass Expected: 10/07/2024 (Approximate), Expires: 01/06/2025[facility] ClinicComment on above:Expected: 10/07/2024 (Approximate), Expires: 01/06/2025Start: 10-07-2024 End: 83-92-0362BAVCSYUPAC BLDCREATININE BLD Lab Routine Rectal mass Expected: 10/07/2024 (Approximate), Expires: 01/06/2025[facility] ClinicComment on above: Expected: 10/07/2024 (Approximate), Expires: 01/06/2025Start: 65-28-3345Hlgwote Directive DiscussionAdvance Directive DiscussionCleGlenbeigh Hospitaltart: 01-01-2025Medicare Advantage Annual Wellness VisitMedicare Advantage Annual Wellness VisitSelect [facility], Beachwoodtart: 10-01-2024 End: 03-24-5318Rdeszsv encounter lqiamgsae85/27/2024 9:00 AM EST Office Visit [facility] [address] [phone] Adonay Clemente MD [address] [address] [facility]: 96-80-4184XbetrrcxnMarymount Hospital Start: 26-63-5788FtglnkqemTriHealth Bethesda North Hospitaltart: 09-14-2024 End: 81-59-3176Xclhoms encounter procedureNORI CI FMComment on above:Arrived Start: 09-14-2024 End: 49-84-9911MEE W Auto Differential panel - BloodCBC and differential Lab Routine Type 2 diabetes mellitus with diabetic neuropathy, without long-term current use of insulin ([facility]) Medicare annual wellness visit, initial Screening for lipid disorders Myalgia Expected: 09/14/2024 (Approximate), Expires: 09/14/2025[facility] Work Phone: Comment on above:Expected: 09/14/2024 (Approximate), Expires: 09/14/2025Start: 09-14-2024 End: 23-33-2906Jcplismihriuq metabolic 2000 panel - Serum or PlasmaComprehensive metabolic panel Lab Routine Abnormal glucose tolerance test Benign essential hypertension ([facility]) Type 2 diabetes mellitus with diabetic neuropathy, without long-term current use of insulin ([facility]) Medicare annual wellness visit, initial Myalgia Expected: 09/14/2024 (Approximate),Expires: 09/14/2025 [facility] HealthcareComment on above:Expected: 09/14/2024 (Approximate), Expires: 09/14/2025Start: 09-14-2024 End: 95-90-1394PE Chest for screening WO contrastCT lung screening low dose Imaging Routine Medicare annual wellness visit, initial Smoker Cigarettesmoker Expected: 09/14/2024, Expires: 09/14/2025NORI HealthcareComment on above: Expected: 09/14/2024, Expires: 09/14/2025Start: 09-14-2024 End: 43-06-2768Gkkrh 1996 panel - Serum or PlasmaLipid panel Lab Routine Medicare annual wellness visit, initial Screening for lipid disorders Expected: 09/14/2024 (Approximate), Expires: 09/14/2025NORI HealthcareComment on above: Expected: 09/14/2024 (Approximate), Expires: 09/14/2025Start: 09-14-2024 End: 49-38-5283Tpnddrxsgvkn/Creatinine panel in random UrineMicroalbumin / creatinine urine ratio Lab Routine Type 2 diabetes mellitus with diabetic neuropathy, without long-term current use of insulin ([facility]) Medicare annual wellness visit, initial Expected: 09/14/2024 (Approximate), Expires: 09/14/2025 [facility] HealthcareComment on above:Expected: 09/14/2024 (Approximate), Expires: 09/14/2025Start: 09-14-2024 End: 28-28-8461Emwvczhs specific Ag [Mass/volume] in Serum or PlasmaPSA Lab Routine Nocturia Medicare annual wellness visit, initial Expected: 09/14/2024 (Approximate), Expires: 09/14/2025[facility] HealthcareComment on above:Expected: 09/14/2024 (Approximate), Expires: 09/14/2025Start: 46-89-5119Vlpdn screening for proteinDiabetes: Urine Protein ScreeningBLUE MOUNTAIN HOSPITAL, INC. HealthcareStart: 09-01-2024 Medicare Annual Wellness (AWV)Medicare Annual Wellness (AWV)[facility] Start: 99-09-5430Qekihnswzxuu Vaccine: 65+ Years (1 of 2 - PCV)Pneumococcal Vaccine: 65+ Years (1 of 2 - PCV)[facility] HealthcareComment on above:Postponed from 1964 (Other Patient Reasons)Start: 15-39-9850Rnyde-19 Vaccine ( season)Covid-19 Vaccine ( season)[facility]: 06-06-2024 Influenza vaccinationInfluenza Vaccine (#1)[facility] HealthcareStart: 01-96-9751PMF Vaccine (1 - Risk 60-74 years 1-dose series)RSV Vaccine (1 - Risk 60-74 years 1- dose series)[facility]tart: 72-91-3133Yhkhkxmcx for malignant neoplasm of lungLung Cancer ScreeningSelect Medical [facility] Rehabilitation Hospital, Beachwoodtart: 38-70-2637Ykndacsz Vaccine (1 of 2)Shingrix Vaccine (1 of 2)[facility]: 96-70-7647Tfbbhxawx for malignant neoplasm of colonSelect Medical [facility], Beachwoodtart: 68-22-8798Eapit panelLipid ScreeningSelect Medical [facility] Rehabilitation Hospital, Beachwoodtart: 29-67-4700Cselvebgegsu Vaccine: 50+ (1 of 2 - PCV)Pneumococcal Vaccine: 50+ (1 of 2 - PCV)[facility]: 1979 Shingrix Vaccine (1 of 2)Shingrix Vaccine (1 of 2)[facility]: 37-39-4898Xfkjj microalbumin profileDTaP,Tdap,Td Vaccine (1 - Tdap)[facility]: 71-97-6627Xevrtq PCP Team Chronic Disease VisitAnnual PCP Team Chronic Disease VisitSelect Medical [facility], Beachwoodtart: 37-47-9245Jpnydzt ScreeningAnxiety ScreeningSelect Medical [facility] Rehabilitation Hospital, Beachwoodtart: 23-42-3968Mahvsuhrik ScreeningDepression ScreeningSelect Medical [facility], Beachwoodtart: 00-80-9086Juwwwwvnm C screeningHepatitis C ScreeningSelect Medical [facility], Beachwoodtart: 19-22-2844Yzibcczu screeningDiabetes: Retinopathy ScreeningBLUE MOUNTAIN HOSPITAL, INC. HealthcareStart: 81-16-2855Kijajchpocjs Vaccine: 65+ Years (1 of 2 - PCV)Pneumococcal Vaccine: 65+ Years (1 of 2 - PCV)[facility] HealthcareStart: 71-75-0194Lrkii-19 Vaccine (#1)Covid-19 Vaccine (#1)[facility]: 52-49-5812Vuzxbwwni aortic aneurysm screeningAbdominal Aortic Aneurysm ScreeningSelect Medical [facility], Beachwoodtart: 60-59-5087Htyshbymm for malignant neoplasm of colonNORI HealthcareCarcinoembryonic Ag [Mass/volume] in Serum or PlasmaCARCINOEMBRYONIC ANTIGEN Lab Routine Rectal cancer (HCC) 01/06/2025 9:03 AM [facility] Work Phone: End: 60-07-2836BE Abdomen and Pelvis W contrast IVCT ABD/PEL W IVCON Radiology Routine Rectal mass 1 Occurrences starting 10/07/2024 until 11/06/2025[facility] ClinicComment on above:1 Occurrences starting 10/07/2024 until 11/06/2025 End: 53-88-3076MO Chest W contrast IVCT CHEST W IVCON Radiology Routine Rectal mass 1 Occurrences starting 10/07/2024 until 11/06/2025[facility] ClinicComment on above:1 Occurrences starting 10/07/2024 until 11/06/2025T Guidance for radiation treatment of Unspecified body regionCT SIM PLANNING RADIATION ONCOLOGY Radiology Routine Rectal cancer (HCC) Ordered: 10/26/2024[facility] Work Phone: Comment on above:Ordered: 10/26/2024ECG COMPLETEECG COMPLETE ECG Routine Pre-op evaluation 06/10/2025 12:32 PM [facility] Work Phone: HEPATITIS C AB W/RFL RNS, PCR W/RFL GENOTYPE,LIPA HEPATITIS C AB W/RFL RNS, PCR W/RFL GENOTYPE,LIPA Lab Routine Other problems related to lifestyle Ordered: 01/04/2025[facility] Work Phone: Comment on above:Ordered: 01/04/2025 End: 11-65-4848OU Pelvis WO contrastMRI RECTUM WO/W IVCON Radiology Routine Rectal mass 1 Occurrences starting 10/07/2024 until 11/06/2025[facility] Work Phone: Comment on above:1 Occurrences starting 10/07/2024 until 11/06/2025OUTSIDE SURG PATH SLIDE REVIEWOUTSIDE SURG PATH SLIDE REVIEW Lab Routine Rectal cancer (HCC) [facility] Work Phone: Comment on above:Ordered: 10/14/2024Patient Education [facility] Work Phone: Patient referralMercy Health [facility] Work Phone: REFERRAL FOR ADDITIONAL BIOMARKER AND MOLECULAR TESTINGREFERRAL FOR ADDITIONAL BIOMARKER AND MOLECULAR TESTING Lab Routine Rectal cancer (HCC) 11/01/2024 2:03 PM [facility] Payers DatePayer CategoryPayerPolicy ID2025Medicaid [id number] [id number]-agt [id number] BLUE CROSS AND BLUE SHIELD [facility] MEDICARE ADVANTAGE HMO [id number] 2023-[facility] [phone] [address] [place] [address] [id number] 2023Medicare (Managed Care)[id number] [id number] 2.16.840.1.878863.3.579.2.593 [id number] 2.16.840.1.629144.3.57[id number] 2.16.840.1.619663.3.57[id number] 2..840.1.821041.3.57[id number] 2.840.1.452944.3.57[id number] 2.840.1.472143.3.57[id number] 2.0.1.534045.3.57[id number] 2.840.1.381495.3.57[id number] 2.840.1.855770.3.57[id number] 2.0.1.071167.3.57[id number] 2.840.1.060582.3.57[id number] 2.840.1.581691.3.57[id number] 2.16.840.1.613126.3.579.2.593 [id number] 2.16.840.1.5[id number] 2.16.840.1.4[id number] 2.16.840.1.012420.3.579.2.531 Social History DateTypeDetailFacilityStart: 08-05-2023 End: 74-59-9256Yxxverp smoking status NHISSmokes tobacco dailyNOMS Healthcare Start: 25-80-2897Robhhjs of tobacco useCigarette SmokerNOMS HealthcareStart: 08-05-2023 End: 84-80-5591Kxaztpu use and exposureSmokeless tobacco non-userNOMS Healthcare Start: 08-02-2024 End: 35-52-1186Eayxoudbx beverage intakeCurrent drinker of alcohol (finding)[facility] HealthcareStart: 08-02-2024 End: 63-44-5508Lhrifgc of Social functionNOMS HealthcareStart: 08-02-2024 End: 70-38-7070Jlguvju use panelNOMS HealthcareStart: 48-83-0084Zhzmetb Comment1 or 2 every couple monthBLUE MOUNTAIN HOSPITAL, INC. HealthcareStart: 79-95-3886Upl assigned at birthNot on fileNORI HealthcareStart: 28-59-6316Tfvavkzq Score (1-100), lower number is lower jmxj00Zyartlvge ClinicStart: 24-07-6824Twvrqll Commentvery seldomHickory Valley ClinicStart: 04-87-6906Ndqrtog smoking status NHISSmoker (finding)[facility] Hospitaltart: 62-32-2280ShoNxka (finding)[facility] Hospitaltart: 71-79-0527Uur Assigned At BirthMalWVUMedicine Harrison Community Hospitaltart: 49-39-6643Fzuijkukv beverage intakeEx-drinker (finding)[facility] HealthcareHow often to you have a drink containing alcohol?Monthly or less [facility] ClinicHow many standard drinks containing alcohol do you have on a typical day?3 or 4Clevelatrium health union west ClinicHow often do you have 6 or more drinks on 1 occasion?Less than monthlyOhiohealth Hardin Memorial Hospital(I/We) worried whether (my/our) food would run out before (I/we) got money to buy more.Never trueOhiohealth Hardin Memorial HospitalIn the past 12 months, was there a time when you were not able to pay the mortgage or rent on time?NoCleveland ClinicHow often do you need to have someone help you when you read instructions, pamphlets, or other written material from your doctor or pharmacy [SILS]NeverNOMS HealthcareDo you belong to any clubs or organizations such as jew groups, unions, fraternal or athletic groups, or school groups?YesNOMS HealthcareAre you now , , , , never or living with a partner?MarriedNOMS HealthcareHow often do you have 6 or more drinks on 1 occasion?MonthlyNOMS HealthcareHow hard is it for you to pay for the very basics like food, housing, medical care, and heatingNot very hardNOMS HealthcareDo you feel stress - tense, restless, nervous, or anxious, or unable to sleep at night because yourmind is troubled all the time - these days [OSQ]Only a littleNORI Healthcare(I/We) worried whether (my/our) food would run out before (I/we) got money to buy more. Sometimes trueNOSaint Mary's Health Center Medical Equipment Procedure CodeEquipment CodeEquipment Original TextEquipment IdentifierDates Insertion of central venous catheter (CVC) with subcutaneous port for chemotherapyVascular port/catheter([id number] [facility] Start: 12-08-2024 Goals DatePatient GoalDesired Activity/StatePersonal health goal Functional Status LfcbHtzdbnybaoGfsqoiVobylide59-06-8349Jgukc score [AUDIT-C]3 06/10/2025 12:12 PM EDT Sheri Villeda [facility]CCJ[facility] Clinical Notes 08-02-2024 to 07-28-2025 Note Date & VzlaDwwpUlafirhj44-05-2801 [facility]Mart[facility]10-23-2025 NoteMart[facility]10-10-2025 [facility]Mart[facility] 07-08-2025 [facility]10-02-2025 NoteMartins Ferry Hospital09-23-2025 History of Present illness Narrative* Rashaun Torres MD - 06/28/2025 10:48 AM EDTAssociated Problem(s): Heartburn Pepcid AC or Prilosec * Rashaun Torres MD - 06/28/2025 10:45 AM EDTAssociated Problem(s): Dependence on nicotine from cigarettes Discussed smoking cessation with the patient. Encouraged patient to try to cut back gradually and soon quit smoking. Discussed ways to quit smoking including gum, patches, medication, and gradually reducing the number of cigarettes smoked daily. 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 Patient voiced understanding. Benefits of cessation, both health and financial, were reviewed. * Rashaun Torres MD - 06/28/2025 10:45 AM EDTAssociated Problem(s): Emphysema, unspecified (HCC) No current symptoms Still smoker * Rashaun Torres MD - 06/28/2025 10:44 AM EDTAssociated Problem(s): Paroxysmal atrial fibrillation (HCC) Possibly post op * Rashaun Torres MD - 06/28/2025 10:44 AM EDTAssociated Problem(s): Metastatic adenocarcinoma to colorectal region (HCC) Has Colostomy and will try reanastomisis in 2-3 months F/U with Hem Onc Dr. Marshall [facility] in July 15 * Rashaun Torres MD - 06/28/2025 10:44 AM EDTAssociated Problem(s): Elevated blood sugar A1c 5.1 No evidence of symptoms of Diabetes * Rashaun Torres MD - 06/28/2025 10:30 AM EDT Images from the original note were not included. HPI Hospital Follow-up Additional comments: [facility] 06/17 to 06/20 for rectal surgery Last edited by Mallika Robledo MA on 06/28/2025 7:18 AM. Subjective Patient ID: Bentley Gonzalez is a 65 y.o. male who presents for Hospital Follow- up ([facility] 06/17 to 06/20 for rectal surgery ). Pt went to [facility] for rectal surgery, 06/17 to 06/20/25 pt is doing better, will have a colostomy bag for 2 to 3 month then will see if they can reverse this Has Colostomy Has colon resection and lymph node dissection Finished with radiation and chemo Flowsheet Row Patient Outreach from 06/21/2025 in [facility] with Viviana Graves LPN [facility] Information ED, Hospital or Prison Facility Discharge? Hospital Patient has been contacted within two business days of discharge Yes Diagnosis Rectal Cancer, Colorectal surgery. Discharge Date 06/20/25 Discharged To: Home Setting Discharge Hospital [facility] Engagement Call Start Time 1156 Admission Date 06/17/25 Medications Discharge medications reviewed and reconciled from hospital? Yes Is the patient having any side effects they believe may be caused by any medication additions or changes? No Does the patient have all medications ordered at discharge? Yes Appointments Does the patient have a primary care provider? Yes [06/28] Does the patient have any upcoming specialty appointments? Yes [post op f/u Kris MORLEY-07/08, Hematology/oncology Dr. Christine 07/15] Self Management Does patient have home health? yes What is the home health agency? [facility] Patient Teaching Does the patient have access to their discharge instructions? Yes What is the patient's perception of their health status since discharge? Improving Is the patient/caregiver able to teach back the hierarchy of who to call/visit for symptoms/problems? PCP, Specialist, Home Health nurse, Urgent Care, ED, 911 Yes Wrap Up Wrap Up Additional Comments ROBOTIC LAPAROSCOPIC HEMICOLECTOMY WITH ANASTOMOSIS,COLOPROCTOSTOMY ANDCOLOSTOMY, flexiable sigmoidoscopy - Robotic LAR - low anterior colon resection with colostomy mediport removal. labs Call End Time 1209 Current Outpatient Medications on File Prior to Visit Medication Sig Dispense Refill acetaminophen (Tylenol) 500 MG tablet Take 1,000 mg by mouth in the morning and 1,000 mg at noon and 1,000 mg in the evening and 1,000 mg before bedtime. apixaban (Eliquis) 2.5 MG tablet Take 2.5 mg by mouth in the morning and 2.5 mg in the evening. ibuprofen 400 MG tablet Take 400 mg by mouth in the morning and 400 mg at noon and 400 mg in the evening. methocarbamol (Robaxin) 500 MG tablet Take 500 mg by mouth every 8 (eight) hours if needed Probiotic Product (Digestive Advantage) capsule Take 1 capsule by mouth in the morning. [DISCONTINUED] oxyCODONE (Roxicodone) 5 MG immediate release tablet Take 5 mg by mouth every 6 (six) hours if needed [DISCONTINUED] hydrOXYzine HCl (Atarax) 10 MG tablet Take 1 tablet (10 mg) by mouth every 8 (eight)hours if needed for itching or allergies for up to 7 days (Patient not taking: Reported on 06/21/2025) 21 tablet 0 No current facility-administered medications on file prior to visit. I have reviewed and reconciled the history and medication list with the patient today. No Known Allergies Social History Tobacco Use Smoking status: Every Day Current packs/day: 1.00 Types: Cigarettes Smokeless tobacco: Never Vaping Use Vaping status: Never Used Substance Use Topics Alcohol use: Yes Comment: 1 or 2 every couple month Drug use: Never Family History Problem Relation Name Age of Onset Cancer Mother Lung cancer Father Past Medical History: Diagnosis Date Cancer (HCC) rectal Diabetes mellitus (HCC) Obstruction of rectum 10/01/2024 Type 2 diabetes mellitus with diabetic neuropathy (HCC) 08/04/2023 Past Surgical History: Procedure Laterality Date COLON SURGERY 2025 COLONOSCOPY 09/24/2024 FLEXIBLE SIGMOIDOSCOPY 05/16/2025 with biopsies--AVVargas PORTACATH PLACEMENT TONSILLECTOMY Visit Vitals BP 112/78 Pulse 88 Ht 5' 8 Wt 108 lb SpO2 97% BMI 16.42 kg/m Smoking Status Every Day BSA 1.53 m Review of Systems Respiratory: Negative for cough and shortness of breath. Cardiovascular: Negative for chest pain. Gastrointestinal: Positive for abdominal pain. Objective Physical Exam Constitutional: Appearance: Normal appearance. Cardiovascular: Rate and Rhythm: Normal rate and regular rhythm. Pulses: Normal pulses. Heart sounds: Normal heart sounds. Pulmonary: Effort: Pulmonary effort is normal. Breath sounds: Normal breath sounds. Abdominal: Comments: Colostomy and incision for laporoscopy Neurological: Mental Status: He is alert. Assessment/Plan Problem List Items Addressed This Visit Elevated blood sugar A1c 5.1 No evidence of symptoms of Diabetes Relevant Orders POCT Glycated hemoglobin, total (Completed) Metastatic adenocarcinoma to colorectal region (HCC) - Primary Has Colostomy and will try reanastomisis in 2-3 months F/U with Hem Onc Dr. Marshall [facility] in July 15 Emphysema, unspecified (HCC) No current symptoms Still smoker Paroxysmal atrial fibrillation (HCC) Possibly post op Dependence on nicotine from cigarettes Discussed smoking cessation with the patient. Encouraged patient to try to cut back gradually and soon quit smoking. Discussed ways to quit smoking including gum, patches, medication, and gradually reducing the number of cigarettes smoked daily. Discussed potential health risks of group home smoking. Patient voiced understanding. Benefits of cessation, both health and financial, were reviewed. Heartburn Pepcid AC or Prilosec Follow up in about 3 months (around 09/27/2025). documented in this encounterEllett Memorial HospitalUohkdtjabh44-84-8832 Telephone encounter Note* Telephone Encounter - Mily Lynch RN - 06/21/2025 10:37 AM EDT Call returned to patient. He was discharged yesterday. He noticed rectal output, thin and watery brown liquid. He denies bleeding, pain or purulent discharge. Discussed typical post op course. Reassurance provided that symptoms expected. Advised to contact office if drainage is bloody. He acknowledges. He has post op appt scheduled on 07/08/25. Postop DLI questionnaire reviewed with patient at this call. He is measuring output and is less than 1000 cc thick applesauce consistency. He emptied his pouch once since discharge yesterday. He noticed no leakage to site. He understands adequate PO intake- electrolyte replacement fluids. Discussedfood thickening agents. He denies nausea, vomiting. He has home health coming out today to establish care. He has post op appt scheduled for 07/08. Advised to call office in the interim if he should have any further concerns. Ostomy Readmission Risk Criteria: No high risk readmission criteria identified [facility]09-16-2025 Miscellaneous Notes* Telephone Encounter - Mily Lynch RN - 06/21/2025 10:37 AM EDT Call returned to patient. He was discharged yesterday. He noticed rectal output, thin and watery brown liquid. He denies bleeding, pain or purulent discharge. Discussed typical post op course. Reassurance provided that symptoms expected. Advised to contact office if drainage is bloody. He acknowledges. He has post op appt scheduled on 07/08/25. Postop DLI questionnaire reviewed with patient at this call. He is measuring output and is less than 1000 cc thick applesauce consistency. He emptied his pouch once since discharge yesterday. He noticed no leakage to site. He understands adequate PO intake- electrolyte replacement fluids. Discussedfood thickening agents. He denies nausea, vomiting. He has home health coming out today to establish care. He has post op appt scheduled for 07/08. Advised to call office in the interim if he should have any further concerns. Ostomy Readmission Risk Criteria: No high risk readmission criteria identified * Telephone Encounter - Nhung Boyd - 06/21/2025 10:20 AM EDT Patient calling asking to speak to nurse about wound area and drainage he is having. Denies odor orpain Surgery was 06/17/25 CB# [phone] documented in [facility] Telephone encounter Note * Telephone Encounter - Nhung Boyd - 06/21/2025 10:20 AM EDT Patient calling asking to speak to nurse about wound area and drainage he is having. Denies odor orpain Surgery was 06/17/25 CB# [phone] [facility]09-15-2025 NoteHNO ID: [id number] Author: ALEJANDRA PONCE APRN.CNP Service: Colorectal Author Type: Nurse Practitioner Type: Progress Notes Filed: 06/21/2025 09:47 Note Text: Documentation Query Please clarify the clinically significant diagnosis associated with the clinical indicators for this patient: Provider Response: Hypophosphatemia supported by: Continued Lab Monitoring and Oral Supplement of K Phos This document will become part of the patient's medical record.[facility] 06-20-2025 NoteHNO ID: [id number] Author: RAMIREZ HINOJOSA LSW Service: Care Management Author Type: Coil Machine Supervisor Type: Care Mgt Initial Assessment Filed: 06/20/2025 13:02 Note Text: CARE MANAGEMENT: ASSESSMENT AND DISCHARGE PLAN SERVICE DATE: June 20, 2025 SERVICE TIME: 11:36 AM PCP: Rashaun Torres MD, MD Primary Contact: Extended Emergency Contact Information Primary Emergency Contact: Yasmeen Gonzalez Address: [address] [place] [address] [address] Relation: Spouse Admission Status: Inpatient Insurance Provider: [employer] HMO Discharge Planning requested by: Per Department Practice Potential Transition Plans Home Care Advance Directives Current Advance Directive: None Records Manager Attempted to Assist with AD Completion: Yes Action: Education Provided Current Living Arrangements and Support Lives with: Spouse/significant other, Children Type of Residence: Private Residence (House) Support: Family members How do you manage to accomplish the following: Independent: Ambulation, Bathe/Shower, Dress, Meals/Meal Prep, Going to the bathroom, Medication Management, Transportation to appointments/community Current Services/Equipment Current Post-Acute Service(s): None Discharge Planning Patient Goal(s): General wellness Drain of Choice Explained: Drain of Choice Given: Yes Level of Care Discussed: Home Care Are you interested in bedside delivery of your medications? No Discharge Planning Participant(s): Patient Patient/Family Comments: Caregiver Assessment: Caregiver is ready, willing and able to meet the patient's needs as recommended by the inter-professional team: No Caregiver needed Transport at Discharge: Transportation Arrangements: To Be Determined Needs Prior to Discharge: Needs Prior to Discharge: To Be Determined Post-Acute Discharge Plan: Pt admitted for planned colostomy. SW met with pt at bedside. Pt lives with his Yasmeen and their 15 yr old grand daughter. Pt reports being IPTA. No HHC no DME. Pt agreeable to [facility] for ostomy teaching and supplies. SW sent multiple referrals. Awaiting accepting agency. 12:33pm Pt accepted by [facility] by [facility] in [place] [phone]. SW added [facility] contact info to AVS. SIGNATURE: RITESH Martin PATIENT NAME: Bentley Gonzalez DATE: June 20, 2025 TIME: 11:36 [facility]09-15-2025 NoteHNO ID: [id number] Author: CORTNEY CAO APRN.CNP Service: Wound/Ostomy Author Type: Nurse Practitioner Type: Plan of Care Filed: 06/20/2025 11:09 Note Text: [address] [address] [facility] [address] Dept: [phone] OSTOMY SUPPLY ORDER FORM Patient: Bentley Gonzalez Patient Address: [address] [place] [address] Home Phone Number:[email or web address] Gender: male Date of : 1960 Type of Stoma: End Ileostomy Diagnosis: Rectal Cancer C20 Item and Description 30 Day Use Adhesive Removers: [place] Adapt wipes #4160 30 day use - 2 Boxes Moldable Ring: Coloplast Brava 2.0mm Moldable # [id number] 30 day use - 2 Boxes One Piece Ostomy Pouch Item Type: Coloplast Sensura Flat Drainable: Coloplast SenSura Flat Drainable pouch # 23875 30 day use - 2 Boxes 2 Boxes 2 Boxes 2 Boxes Note: ----- To order your supplies you may call [employer] @ SIGNATURE: Cortney Cao APRN.CNP PATIENT NAME: Bentley Gonzalez DATE: June 20, 2025 TIME: 10:45 [facility]09-15-2025 NoteHNO ID: [id number] Author: SHU TRENT MD Service: Colorectal Author Type: Resident Type: Progress Notes Filed: 06/20/2025 08:08 Note Text: COLORECTAL SURGERY PROGRESS NOTE Bentley Gonzalez [id number] DOS: 2025 POD: 3 Days Post-Op ASSESSMENT AND PLAN Bentley Gonzalez is a 65 year old male with PMHx of HTN and rectal cancer who is now s/p robotic LAR with DLI on 06/17. 06/17 - OR as above 06/18 - Pain controlled. Having stoma output. Advanced to GIS. 06/19 - Continued on GIS. LRB for soma output. Neuro: mmpc Resp: IS/OOB CV: monitor hr and bp GI: GIS, prn anti-emetics, protonix Renal: monitor I/O, replete electrolytes prn, dc ch, f/u TOV Heme/ID: no abx DVT ppx: SCDs, lovenox MSK: PT/OT Dispo: RNF, possible dc later today pending stoma teaching Shu Trent MD General Surgery PGY2 Blue Team: [phone] Nights/Consult: [phone] SUBJECTIVE: No acute events overnight. Pain well controlled. Tolerating GIS, no n/v. Having stoma output. Has been OOB and walking. OBJECTIVE: BP 99/61 Pulse 72 Temp 37 ?C (98.6 ?F) (Oral) Resp 16 Ht 167.6 cm (5' 6 ) Wt 52.6 kg (116 lb) SpO2 95% BMI 18.72 kg/m? Body mass index is 18.72 kg/m?. GENERAL: Alert and in no acute distress. LUNGS: Non labored breathing on room air. HEART: Regular rate. ABDOMEN: soft, not distended, appropriately tender. Stoma pink and healthy with liquid stool output. Incisions are clean and dry. GENITOURINARY: Ch in place draining clear, yellow urine. Labs: CBC, Coags, BMP, Mg, Phos Recent Labs 06/20/25 0612 06/19/25 0508 06/18/25 0424 WBC 6.38 6.73 8.60 HB 12.3* 11.6* 11.3* HCT 37.7* 35.4* 33.6* PLT 178 152 148* NA 139 138 136 K 4.1 4.3 4.2 CHLOR 107 106 105 CO2 22 22 23 BUN 11 14 13 CREAT 0.65* 0.78 0.76 GLUC 99 84 106* CA 8.1* 8.3* 8.0* MG 1.8 1.9 2.1 P 3.3 1.9* 2.7 Liver Function, Amylase, AND Lipase I/O past 24h: Intake/Output Summary (Last 24 hours) at 06/20/2025 0807 Last data filed at 06/20/2025 0536 Gross per 24 hour Intake -- Output 1130 ml Net -1130 ml LDA: Lines, Drains, and Airways Line Duration Peripheral 06/17/25 0750 Right Forearm 18 Gauge 3 days Drain Duration Drain/Tube 06/17/25 1419 [facility] Bryan Stewart Midline Drain #1 2 days Drain/Tube 06/17/25 1601 Left Lower Quadrant 2 days Fistula Ostomy 06/17/25 RLQ 2 days Indwelling Urinary Catheter 06/17/25 0822 [facility] Ch 16 Fr 2 days SURGERY/PROCEDURE: Procedure(s) and Anesthesia Type: Panel 1: * ROBOTIC LAPAROSCOPIC HEMICOLECTOMY WITH ANASTOMOSIS,COLOPROCTOSTOMY AND COLOSTOMY, flexiable sigmoidoscopy - General Panel 2: * medi port removalRoslindale General [id number] NoteHNO ID: [id number] Author: SHU TRENT MD Service: Colorectal Author Type: Resident Type: Progress Notes Filed: 06/19/2025 07:34 Note Text: COLORECTAL SURGERY PROGRESS NOTE Bentley Gonzalez [id number] DOS: 2025 POD: 2 Days Post-Op ASSESSMENT AND PLAN Bentley Gonzalez is a 65 year old male with PMHx of HTN and rectal cancer who is now s/p robotic LAR with DLI on 06/17. 06/17 - OR as above 06/18 - Pain controlled. Having stoma output. Advanced to GIS. Neuro: mmpc Resp: IS/OOB CV: monitor hr and bp GI: GIS, prn anti-emetics, protonix Renal: monitor I/O, replete electrolytes prn, maintain ch for 3d, 500cc bolus to replete ostomy losses Heme/ID: no abx DVT ppx: SCDs, lovenox MSK: PT/OT Dispo: BETTY Trent MD General Surgery PGY2 Blue Team: Nights/Consult: SUBJECTIVE: No acute events overnight. Pain well controlled. Tolerating GIS, no n/v. Having stoma output. Has been OOB and walking. OBJECTIVE: BP 111/63 Pulse 68 Temp 36.8 ?C (98.2 ?F) (Oral) Resp 16 Ht 167.6 cm (5' 6 ) Wt 52.6 kg (116 lb) SpO2 95% BMI 18.72 kg/m? Body mass index is 18.72 kg/m?. GENERAL: Alert and in no acute distress. LUNGS: Non labored breathing on room air. HEART: Regular rate. ABDOMEN: soft, not distended, appropriately tender. Stoma pink and healthy with liquid stool output. Incisions are clean and dry. GENITOURINARY: Ch in place draining clear, yellow urine. Labs: CBC, Coags, BMP, Mg, Phos Recent Labs 06/19/25 0508 06/18/25 0424 WBC 6.73 8.60 HB 11.6* 11.3* HCT 35.4* 33.6* PLT 152 148* NA -- 136 K -- 4.2 CHLOR -- 105 CO2 -- 23 BUN -- 13 CREAT -- 0.76 GLUC -- 106* CA -- 8.0* MG -- 2.1 P -- 2.7 Liver Function, Amylase, AND Lipase I/O past 24h: Intake/Output Summary (Last 24 hours) at 06/19/2025 0733 Last data filed at 06/19/2025 0520 Gross per 24 hour Intake 2907 ml Output 1995 ml Net 912 ml LDA: Lines, Drains, and Airways Line Duration Peripheral 06/17/25 0641 [facility] Short Left Hand 2 days Peripheral 06/17/25 0750 Right Forearm 18 Gauge 1 day Drain Duration Drain/Tube 06/17/25 1419 [facility] Bryan Stewart Midline Drain #1 1 day Drain/Tube 06/17/25 1601 Left Lower Quadrant 1 day Fistula Ostomy 06/17/25 RLQ 1 day Indwelling Urinary Catheter 06/17/25 0822 [facility] Ch 16 Fr 1 day SURGERY/PROCEDURE: Procedure(s) and Anesthesia Type: Panel 1: * ROBOTIC LAPAROSCOPIC HEMICOLECTOMY WITH ANASTOMOSIS,COLOPROCTOSTOMY AND COLOSTOMY, flexiable sigmoidoscopy - General Panel 2: * medi port removalRoslindale General [id number] NoteHNO ID: [id number] Author: SHU TRENT MD Service: Colorectal Author Type: Resident Type: Progress Notes Filed: 06/18/2025 10:22 Note Text: COLORECTAL SURGERY PROGRESS NOTE Bentley Gonzalez [id number] DOS: 2025 POD: 1 Day Post-Op ASSESSMENT AND PLAN Bentley Gonzalez is a 65 year old male with PMHx of HTN and rectal cancer who is now s/p robotic LAR with DLI on 06/17. 06/17 - OR as above Neuro: mmpc Resp: IS/OOB CV: monitor hr and bp GI: CLD, will discuss possible advancement to FLD vs GIS, prn anti-emetics, protonix Renal: monitor I/O, replete electrolytes prn, maintain ch for 3d Heme/ID: no abx DVT ppx: SCDs, lovenox MSK: PT/OT Dispo: BETTY Trent MD General Surgery PGY2 Blue Team: [phone] Nights/Consult: SUBJECTIVE: No acute events overnight. Pain well controlled. Tolerating clears, no n/v. Having stoma output. OBJECTIVE: BP 98/59 Pulse 81 Temp 36.6 ?C (97.9 ?F) (Oral) Resp 18 Ht 167.6 cm (5' 6 ) Wt 52.6 kg (116 lb) SpO2 94% BMI 18.72 kg/m? Body mass index is 18.72 kg/m?. GENERAL: Alert and in no acute distress. LUNGS: Non labored breathing on room air. HEART: Regular rate. ABDOMEN: soft, not distended, appropriately tender. Stoma pink and healthy with liquid stool output. Incisions are clean and dry. GENITOURINARY: Ch in place draining clear, yellow urine. Labs: CBC, Coags, BMP, Mg, Phos Recent Labs 06/18/25 0424 WBC 8.60 HB 11.3* HCT 33.6* PLT 148* NA 136 K 4.2 CHLOR 105 CO2 23 BUN 13 CREAT 0.76 GLUC 106* CA 8.0* MG 2.1 P 2.7 Liver Function, Amylase, AND Lipase I/O past 24h: Intake/Output Summary (Last 24 hours) at 06/18/2025 1018 Last data filed at 06/18/2025 0505 Gross per 24 hour Intake 2745 ml Output 1065 ml Net 1680 ml LDA: Lines, Drains, and Airways Line Duration Peripheral 06/17/25 0641 [facility] Short Left Hand 1 day Peripheral 06/17/25 0750 Right Forearm 18 Gauge 1 day Drain Duration Indwelling Urinary Catheter 06/17/25 0822 [facility] Ch 16 Fr 1 day Drain/Tube 06/17/25 1419 [facility] Bryan Stewart Midline Drain #1 <1 day Drain/Tube 06/17/25 1601 Left Lower Quadrant <1 day Fistula Ostomy 06/17/25 RLQ <1 day SURGERY/PROCEDURE: Procedure(s) and Anesthesia Type: Panel 1: * ROBOTIC LAPAROSCOPIC HEMICOLECTOMY WITH ANASTOMOSIS,COLOPROCTOSTOMY AND COLOSTOMY, flexiable sigmoidoscopy - General Panel 2: * medi port removalRoslindale General [id number] NoteHNO ID: [id number] Author: NOTE, INTERFACE, ? Service: ? Author Type: ? Type: Progress Notes Filed: 06/20/2025 09:21 Note Text: Epic Scheduled Downtime: 06/18/2025 1:00:00 AM to 06/18/2025 2:06:36 [facility]09-12-2025 NoteHNO ID: [id number] Author: NATHANIEL HDZ APRN.REFINERY OPERATOR REFORMING UNIT Service: Nursing Author Type: Nurse Language And Literature Division Chair Type: Anesthesia Procedure Notes Filed: 2025 08:51 Note Text: ANESTHESIOLOGY PROCEDURE NOTE PIV General Information Procedure Start Time/Medication Administration: 2025 7:50 AM Procedure End Time: 2025 7:51 AM Patient Location: OR Staffing REFINERY OPERATOR REFORMING UNIT: Nathaniel Hdz APRN.REFINERY OPERATOR REFORMING UNIT Performed by: RANJITH Preparation Sterility Preparation: hand hygiene performed prior to procedure, surgical cap used, mask used, skin prep agent completely dried prior to procedure Site Prep: Chloraprep Procedure Details Indication: need for IV access Needle Size/Type: 18 gauge angiocath Orientation: Right Location: Forearm Imaging Guidance Used: No SIGNATURE: Nathaniel Hdz APRN.CRNA PATIENT NAME: Bentley Gonzalez DATE: 2025 TIME: 8:50 AM CSN: [id number] NoteHNO ID: [id number] Author: NATHANIEL HDZ APRN.REFINERY OPERATOR REFORMING UNIT Service: Nursing Author Type: Nurse Language And Literature Division Chair Type: Anesthesia Procedure Notes Filed: 2025 08:50 Note Text: ANESTHESIOLOGY PROCEDURE NOTE Airway General Information Procedure Start Time/Medication Administration: 2025 7:46 AM Procedure End Time: 2025 7:47 AM Patient location during procedure: OR Patient identity confirmed: arm band, care athletic team physician and patient Staffing Anesthesiologist: Michelle Michelle MD REFINERY OPERATOR REFORMING UNIT: Nathaniel Hdz APRN.REFINERY OPERATOR REFORMING UNIT Performed by: RANJITH Indications and Patient Condition Indications for airway management: anesthesia Preoxygenated: yes anesthesia circuit Method: asleep Difficult Mask: No Final Airway Details Final airway type: endotracheal airwayFinal Endotracheal Airway: ETT Cuffed: yes Successful intubation technique: direct laryngoscopy Devices used: intubating stylet Endotracheal tube insertion site: oral Blade: Javier Blade size: #4 ETT size (mm): 7.5 Measured from: lips Measurement (cm): 22 Placement verified by: capnometry Cormack-Lehane Classification: grade IIb - view of arytenoids or posterior of glottis only Number of attempts at approach: 1 Airway not difficult SIGNATURE: Nathaniel Hdz APRN.CRNA PATIENT NAME: Bentley Gonzalez DATE: 2025 TIME: 8:49 AM CSN: [id number] Telephone encounter Note * Telephone Encounter - Kareen Prather RN - 06/10/2025 2:33 PM EDT Called patient and let him know that it was included on the scheduling paperwork that I had filled out. Told him he should remind her when he sees her in the pre-op area, just to make sure it doesn't getmissed. [facility]09-05-2025 Miscellaneous Notes* Telephone Encounter - Kareen Prather RN - 06/10/2025 2:33 PM EDT Called patient and let him know that it was included on the scheduling paperwork that I had filled out. Told him he should remind her when he sees her in the pre-op area, just to make sure it doesn't getmissed. * Telephone Encounter - Nhung Boyd - 06/10/2025 2:12 PM EDT Patient calling asking to speak to nurse. He would like to clarify that Dr Tucker will be taking out his port at his surgery on 06/17/25 CB# [phone] documented in this encounterOhio[facility] Telephone encounter Note * Telephone Encounter - Nhung Boyd - 06/10/2025 2:12 PM EDT Patient calling asking to speak to nurse. He would like to clarify that Dr Tucker will be taking out his port at his surgery on 06/17/25 CB# [phone] [facility]09-05-2025 History and physical note* Debora uHff APRN.SURGICAL SERVICES COORDINATOR - 06/10/2025 12:50 PM EDT Images from the original note were not included. [facility] HISTORY AND PHYSICAL EXAMINATION SERVICE DATE: 06/10/2025 SERVICE TIME: 12:06 PM PRIMARY CARE PHYSICIAN: Rashaun Torres MD, MD REASON FOR VISIT: Bentley Gonzalez is a 64 year old male who is scheduled for ROBOTIC LAPAROSCOPIC HEMICOLECTOMY WITH ANASTOMOSIS,COLOPROCTOSTOMY AND COLOSTOMY at the request of Dr. Teresa Tucker for consultation. Myfinal recommendation will be communicated back to the requesting physician by way of shared medicalrecord or letter. Recording using Master Equation software for draft documentation of the visit was discussed with the patient/authorized training representative; all questions welcomed and answered. Patient/authorized training representative agreed to proceed 2. Benign essential hypertension (I10) - Blood pressure today 117/75 mmHg; no antihypertensive medications required. 3. Smoker (F17.200) - 55 pack-year history; advised to abstain from smoking on day of surgery. 4. Rectal cancer (HCC) (C20) - Completed 28 radiation treatments prior to chemotherapy, followed by 8 chemotherapy treatments (last dose April 07). - surgery scheduled ANESTHESIA FINDINGS: Intubation History: No history of difficult intubation. No abnormal airway history Significant Anesthesia Considerations: none Airway History: No history of difficult airway No abnormal airway history Gibson Activity Status Index: METS: Walk indoors, such as around the house (1.75 METs) Do light work around the house, such as dusting or washing dishes (2.70 METs) Take care of self; that is eating, dressing, bathing, using the toilet (2.75 METs) Walk a block or two on level ground (2.75 METs) Do moderate work around the house, such as vacuuming, sweeping floors, or carrying in groceries (3.50 METs) Do yardwork, such as raking leaves, weeding, or pushing a power mower (4.50 METs) Climb a flight of stairs or walk up a hill (5.50 METs) DASI Score: 23.45 Patient denies any chest pain or undue shortness of breath with the above physical activity. Clinical Frailty Scale: 2. Well STOP-Bang Score: Snores loudly Has been observed to stop breathing or choking/gasping during sleep Patient over 50 years old Male patient Denies feeling tired, fatigued, or sleepy during the daytime Denies having high blood pressure BMI less than or equal to 35 kg/m^2 Does not have a large neck STOP-Bang Score: 4 [id number] Score: Age: 65-74 Sex: male CHF history: No Hypertension history: No Stroke/TIA/thromboembolism history: No Vascular disease history: No Diabetes history: No [id number] Score: 1 ARISCAT Score: Age: 51-80 Preoperative SpO2: >=96% Preoperative anemia: No Duration of surgery: >3 hrs Emergency procedure: No ARISCAT Score: I - PHYSICAL EVALUATION AIRWAY Patient intubated: No. Tracheostomy tube not present Mallampati: II. TM distance: >3 FB. Neck ROM: full ROM without neurological symptoms. Mouth opening: >3 FB. Short neck: no. Thick neck: no Lip Bite Test: I DENTAL Dentures, upper: complete. Dentures, lower: complete. II - ANESTHESIA PLAN Anesthetic plan additional comments: *PACC/TCI - anesthesia choice. Informed Consent Prepared for surgery: This patient is optimally prepared for surgery. CONSULTS: Patient does not require consults for optimization at this time. The Following Tests/Procedures Have Been Initiated: Orders Placed This Encounter ECG (IN OFFICE) Planned Anesthetic: Per anesthesia choice The patient has the following: ACTIVE PROBLEM LIST Rectal Cancer (Hcc) Benign Essential Hypertension Elevated Blood Sugar Hypoglycemia Smoker Subjective CHIEF COMPLAINT: Pre-op exam HPI: Bentley Gonzalez is a 64-year-old male with a history of rectal cancer, presenting for a preoperative evaluation prior to colon surgery. Bentely is scheduled for colon surgery on the and has completed 8 cycles of chemotherapy, with the last dose administered on April 07. Prior to chemotherapy , he underwent 28 sessions of radiation therapy. PAST MEDICAL HISTORY Diagnosis Date Rectal cancer (HCC) 09/24/2024 incomplete colonoscopy- Dr Clemente Smoker PAST SURGICAL HISTORY Procedure Laterality Date COLONOSCOPY PAST SURGICAL HISTORY OF port right chest wall TONSILLECTOMY & ADENOIDECTOMY FAMILY HISTORY Problem Relation Age of Onset Breast Cancer Mother Lung Cancer Father Cancer Sister SOCIAL HISTORY: SOCIAL HISTORY[1] MEDICATIONS: Prior to Admission medications as of 06/10/25 1218 Medication Sig Last Dose Taking metroNIDAZOLE (FLAGYL) 500 mg tablet Take 1 tablet by mouth as directed. Take one tab at 6:00 p.m.,another at 7:00 p.m. and the last one at 11:00 p.m., prior to surgery Yes neomycin 500 mg tablet Take 2 tablets by mouth as directed. Take two tabs at 6:00 p.m., 7:00 p.m. and 11:00 p.m., prior to surgery Yes polyethylene glycol 3350 (MIRALAX) 17 gram/dose powder Take 17 g by mouth as needed for constipation. Dissolve dose in 4 - 8 ounces of liquid and take as directed. Yes Medication Comments documented by Sheri Villeda O[facility] on 06/10/2025 at 1212. Pt states he does not take any medication as of June 10, 2025 CURRENT ALLERGIES: ALLERGIES No Known Allergies Covid Immunization Dates This patient has no relevant Health Maintenance data. REVIEW OF SYSTEMS: GENERAL: No weight loss, malaise, or fevers. HEENT: Negative for frequent or significant headaches, no changes in vision or hearing, no nose bleeds or other nasal problems. NECK: Negative for lumps, goiter, pain, and significant neck swelling. RESPIRATORY: Positive for occasional cough (smoker's cough), negative for dyspnea or shortness of breath. CARDIOVASCULAR: Negative for chest pain, leg swelling, CHF, or palpitations. GI: see HPI GENITOURINARY: No history of dysuria, frequency, or incontinence. MUSCULOSKELETAL: Negative for joint pain or swelling, or muscle pain. No back pain. SKIN: Negative for lesions, rash, and itching. PSYCH: Negative for anxiety or depression. HEMATOLOGY/LYMPHOLOGY: No bleeding concerns. +CA NEURO: No history of headaches, syncope, paralysis, seizures, or tremors. ENDOCRINE: No history of polydipsia, increased thirst, or other endocrine symptoms. Implanted Devices: Yes; port right chest wall Marijuana use: No Objective PHYSICAL EXAM: VITALS: BP 117/75 Pulse 84 Temp (Src) 97.2 (Temporal) Resp 17 Ht 5' 6 (1.68m) Wt 116 lb 13.5 oz (53.0kg) SpO2 96% BMI 18.87 kg/(m^2). GENERAL: NAD, alert and oriented. SKIN: Unremarkable, no rash or skin lesions. HEAD: Normocephalic. EYES: PERRLA, EOMI, conjunctiva clear. OROPHARYNX: Lips, mucosa, and tongue normal, edentulous. No oral lesions noted. NECK: Supple, no lymphadenopathy, normal thyroid, no carotid bruits. LUNGS: Clear to auscultation bilaterally, no wheezes/rhonchi/rales. HEART: Regular rate and rhythm, no murmurs. No ectopy. EXTREMITIES: Normal, no deformities, no skin discoloration, no edema. NEURO: Awake, alert and oriented x3, cranial nerves II-XII grossly intact, normal gait, no involuntary motions. Diagnostic tests reviewed for today's visit: Lab Value Units Date High Low HB 12.6 g/dL 05/27/2025 17.0 13.0 HCT 37.9 % 05/27/2025 51.0 39.0 WBC 5.29 k/uL 05/27/2025 11.00 3.70 PLT 171 k/uL 05/27/2025 400 150 NA 139 mmol/L 05/27/2025 144 136 K 3.9 mmol/L 05/27/2025 5.1 3.7 GLUC 94 mg/dL 05/27/2025 99 74 BUN 12 mg/dL 05/27/2025 24 9 CREAT 0.66 mg/dL 05/27/2025 1.22 0.73 PTSEC No results within date range. INR No results within date range. APTT No results within date range. ALT 18 U/L 05/27/2025 54 10 AST 20 U/L 05/27/2025 40 14 TBILI 0.3 mg/dL 05/27/2025 1.3 0.2 TSH No results within date range. ECG COMPLETE (06/10/2025 12:32 PM) Preliminary result: NORMAL SINUS RHYTHM NORMAL ECG CT CHEST W IVCON (04/27/2025 11:03 AM) 1. A 4 mm right upper lobe nodule is more conspicuous compared to the prior CT performed in October 2024, attention is recommended on subsequent restaging exams. Additional pulmonary nodules measuring up to 4 mm are unchanged. 2. No pathologically enlarged lymph nodes identified in the chest. Instructions Given to Patient: Instructions located in the after visit summary. Patient given verbal and written preop instructions and voices comprehension and compliance. SIGNATURE: Debora Huff APRN.CNP PATIENT NAME: Bentley Gonzalez DATE: 06/10/2025 TIME: 12:06 PM [1] Social History Tobacco Use Smoking status: Every Day Current packs/day: 1.00 Average packs/day: 1 pack/day for 54.7 years (54.7 ttl pk-yrs) Types: Cigarettes Start date: 1970 Smokeless tobacco: Never Vaping Use Vaping status: Never Used Substance Use Topics Alcohol use: Yes Comment: very seldom Drug use: Not Currently [facility]09-05-2025 History and physical note* Debora Huff APRN.CNP - 06/10/2025 12:50 PM EDT Images from the original note were not included. [facility] HISTORY AND PHYSICAL EXAMINATION SERVICE DATE: 06/10/2025 SERVICE TIME: 12:06 PM PRIMARY CARE PHYSICIAN: Rashaun Torres MD, MD REASON FOR VISIT: Bentley Gonzalez is a 64 year old male who is scheduled for ROBOTIC LAPAROSCOPIC HEMICOLECTOMY WITH ANASTOMOSIS,COLOPROCTOSTOMY AND COLOSTOMY at the request of Dr. Teresa Tucker for consultation. Myfinal recommendation will be communicated back to the requesting physician by way of shared medicalrecord or letter. Recording using Master Equation software for draft documentation of the visit was discussed with the patient/authorized training representative; all questions welcomed and answered. Patient/authorized training representative agreed to proceed 2. Benign essential hypertension (I10) - Blood pressure today 117/75 mmHg; no antihypertensive medications required. 3. Smoker (F17.200) - 55 pack-year history; advised to abstain from smoking on day of surgery. 4. Rectal cancer (HCC) (C20) - Completed 28 radiation treatments prior to chemotherapy, followed by 8 chemotherapy treatments (last dose April 07). - surgery scheduled ANESTHESIA FINDINGS: Intubation History: No history of difficult intubation. No abnormal airway history Significant Anesthesia Considerations: none Airway History: No history of difficult airway No abnormal airway history Gibson Activity Status Index: METS: Walk indoors, such as around the house (1.75 METs) Do light work around the house, such as dusting or washing dishes (2.70 METs) Take care of self; that is eating, dressing, bathing, using the toilet (2.75 METs) Walk a block or two on level ground (2.75 METs) Do moderate work around the house, such as vacuuming, sweeping floors, or carrying in groceries (3.50 METs) Do yardwork, such as raking leaves, weeding, or pushing a power mower (4.50 METs) Climb a flight of stairs or walk up a hill (5.50 METs) DASI Score: 23.45 Patient denies any chest pain or undue shortness of breath with the above physical activity. Clinical Frailty Scale: 2. Well STOP-Bang Score: Snores loudly Has been observed to stop breathing or choking/gasping during sleep Patient over 50 years old Male patient Denies feeling tired, fatigued, or sleepy during the daytime Denies having high blood pressure BMI less than or equal to 35 kg/m^2 Does not have a large neck STOP-Bang Score: 4 [id number] Score: Age: 65-74 Sex: male CHF history: No Hypertension history: No Stroke/TIA/thromboembolism history: No Vascular disease history: No Diabetes history: No [id number] Score: 1 ARISCAT Score: Age: 51-80 Preoperative SpO2: >=96% Preoperative anemia: No Duration of surgery: >3 hrs Emergency procedure: No ARISCAT Score: I - PHYSICAL EVALUATION AIRWAY Patient intubated: No. Tracheostomy tube not present Mallampati: II. TM distance: >3 FB. Neck ROM: full ROM without neurological symptoms. Mouth opening: >3 FB. Short neck: no. Thick neck: no Lip Bite Test: I DENTAL Dentures, upper: complete. Dentures, lower: complete. II - ANESTHESIA PLAN Anesthetic plan additional comments: *PACC/TCI - anesthesia choice. Informed Consent Prepared for surgery: This patient is optimally prepared for surgery. CONSULTS: Patient does not require consults for optimization at this time. The Following Tests/Procedures Have Been Initiated: Orders Placed This Encounter ECG (IN OFFICE) Planned Anesthetic: Per anesthesia choice The patient has the following: ACTIVE PROBLEM LIST Rectal Cancer (Hcc) Benign Essential Hypertension Elevated Blood Sugar Hypoglycemia Smoker Subjective CHIEF COMPLAINT: Pre-op exam HPI: Bentley Gonzalez is a 64-year-old male with a history of rectal cancer, presenting for a preoperative evaluation prior to colon surgery. Bentley is scheduled for colon surgery on the and has completed 8 cycles of chemotherapy, with the last dose administered on April 07. Prior to chemotherapy , he underwent 28 sessions of radiation therapy. PAST MEDICAL HISTORY Diagnosis Date Rectal cancer (HCC) 09/24/2024 incomplete colonoscopy- Dr Clemente Smoker PAST SURGICAL HISTORY Procedure Laterality Date COLONOSCOPY PAST SURGICAL HISTORY OF port right chest wall TONSILLECTOMY & ADENOIDECTOMY <AGE 10 FAMILY HISTORY Problem Relation Age of Onset Breast Cancer Mother Lung Cancer Father Cancer Sister SOCIAL HISTORY: SOCIAL HISTORY[1] MEDICATIONS: Prior to Admission medications as of 06/10/25 1218 Medication Sig Last Dose Taking metroNIDAZOLE (FLAGYL) 500 mg tablet Take 1 tablet by mouth as directed. Take one tab at 6:00 p.m.,another at 7:00 p.m. and the last one at 11:00 p.m., prior to surgery Yes neomycin 500 mg tablet Take 2 tablets by mouth as directed. Take two tabs at 6:00 p.m., 7:00 p.m. and 11:00 p.m., prior to surgery Yes polyethylene glycol 3350 (MIRALAX) 17 gram/dose powder Take 17 g by mouth as needed for constipation. Dissolve dose in 4 - 8 ounces of liquid and take as directed. Yes Medication Comments documented by Sheri Villeda [facility] on 06/10/2025 at 1212. Pt states he does not take any medication as of June 10, 2025 CURRENT ALLERGIES: ALLERGIES No Known Allergies Covid Immunization Dates This patient has no relevant Health Maintenance data. REVIEW OF SYSTEMS: GENERAL: No weight loss, malaise, or fevers. HEENT: Negative for frequent or significant headaches, no changes in vision or hearing, no nose bleeds or other nasal problems. NECK: Negative for lumps, goiter, pain, and significant neck swelling. RESPIRATORY: Positive for occasional cough (smoker's cough), negative for dyspnea or shortness of breath. CARDIOVASCULAR: Negative for chest pain, leg swelling, CHF, or palpitations. GI: see HPI GENITOURINARY: No history of dysuria, frequency, or incontinence. MUSCULOSKELETAL: Negative for joint pain or swelling, or muscle pain. No back pain. SKIN: Negative for lesions, rash, and itching. PSYCH: Negative for anxiety or depression. HEMATOLOGY/LYMPHOLOGY: No bleeding concerns. +CA NEURO: No history of headaches, syncope, paralysis, seizures, or tremors. ENDOCRINE: No history of polydipsia, increased thirst, or other endocrine symptoms. Implanted Devices: Yes; port right chest wall Marijuana use: No Objective PHYSICAL EXAM: VITALS: BP 117/75 Pulse 84 Temp (Src) 97.2 (Temporal) Resp 17 Ht 5' 6 (1.68m) Wt 116 lb 13.5 oz (53.0kg) SpO2 96% BMI 18.87 kg/(m^2). GENERAL: NAD, alert and oriented. SKIN: Unremarkable, no rash or skin lesions. HEAD: Normocephalic. EYES: PERRLA, EOMI, conjunctiva clear. OROPHARYNX: Lips, mucosa, and tongue normal, edentulous. No oral lesions noted. NECK: Supple, no lymphadenopathy, normal thyroid, no carotid bruits. LUNGS: Clear to auscultation bilaterally, no wheezes/rhonchi/rales. HEART: Regular rate and rhythm, no murmurs. No ectopy. EXTREMITIES: Normal, no deformities, no skin discoloration, no edema. NEURO: Awake, alert and oriented x3, cranial nerves II-XII grossly intact, normal gait, no involuntary motions. Diagnostic tests reviewed for today's visit: Lab Value Units Date High Low HB 12.6 g/dL 05/27/2025 17.0 13.0 HCT 37.9 % 05/27/2025 51.0 39.0 WBC 5.29 k/uL 05/27/2025 11.00 3.70 PLT 171 k/uL 05/27/2025 400 150 NA 139 mmol/L 05/27/2025 144 136 K 3.9 mmol/L 05/27/2025 5.1 3.7 GLUC 94 mg/dL 05/27/2025 99 74 BUN 12 mg/dL 05/27/2025 24 9 CREAT 0.66 mg/dL 05/27/2025 1.22 0.73 PTSEC No results within date range. INR No results within date range. APTT No results within date range. ALT 18 U/L 05/27/2025 54 10 AST 20 U/L 05/27/2025 40 14 TBILI 0.3 mg/dL 05/27/2025 1.3 0.2 TSH No results within date range. ECG COMPLETE (06/10/2025 12:32 PM) Preliminary result: NORMAL SINUS RHYTHM NORMAL ECG CT CHEST W IVCON (04/27/2025 11:03 AM) 1. A 4 mm right upper lobe nodule is more conspicuous compared to the prior CT performed in October 2024, attention is recommended on subsequent restaging exams. Additional pulmonary nodules measuring up to 4 mm are unchanged. 2. No pathologically enlarged lymph nodes identified in the chest. Instructions Given to Patient: Instructions located in the after visit summary. Patient given verbal and written preop instructions and voices comprehension and compliance. SIGNATURE: Debora Huff APRN.CNP PATIENT NAME: Bentley Gonzalez DATE: 06/10/2025 TIME: 12:06 PM [1] Social History Tobacco Use Smoking status: Every Day Current packs/day: 1.00 Average packs/day: 1 pack/day for 54.7 years (54.7 ttl pk-yrs) Types: Cigarettes Start date: 1970 Smokeless tobacco: Never Vaping Use Vaping status: Never Used Substance Use Topics Alcohol use: Yes Comment: very seldom Drug use: Not Currently [facility] History of Present illness Narrative* Richard Santos APRN.CNP - 06/10/2025 9:00 AM EDT COLORECTAL SURGERY: Preoperative stoma marking and education June 10, 2025 Bentley Gonzalez 64 year old This appointment was requested by Dr. Tucker for upcoming colorectal procedure. Chief Complaint: ostomy education and preop marking History of Present Illness: Bentley Gonzalez is a 64 year old male with rectal cancer presents today for preoperative ostomy education and stoma site marking. PAST MEDICAL HISTORY Diagnosis Date Rectal cancer (HCC) 09/24/2024 incomplete colonoscopy- Dr Clemente PAST SURGICAL HISTORY Procedure Laterality Date TONSILLECTOMY & ADENOIDECTOMY <AGE 10 Current Outpatient Medications Medication Sig Dispense Refill metroNIDAZOLE (FLAGYL) 500 mg tablet Take 1 tablet by mouth as directed. Take one tab at 6:00 p.m.,another at 7:00 p.m. and the last one at 11:00 p.m., prior to surgery 3 tablet 0 neomycin 500 mg tablet Take 2 tablets by mouth as directed. Take two tabs at 6:00 p.m., 7:00 p.m. and 11:00 p.m., prior to surgery 6 tablet 0 polyethylene glycol 3350 (MIRALAX) 17 gram/dose powder Take 17 g by mouth as needed for constipation. Dissolve dose in 4 - 8 ounces of liquid and take as directed. No current facility-administered medications for this visit. ALLERGIES No Known Allergies FAMILY HISTORY Problem Relation Age of Onset Breast Cancer Mother Lung Cancer Father Cancer Sister SOCIAL HISTORY[1] Physical Exam: BP 133/78 Pulse 72 Ht 167.8 cm (5' 6.06 ) Wt 53.5 kg (117 lb 15.1 oz) BMI 19.00 kg/m General Appearance: Well appearing, alert, in no acute distress, well-hydrated, well nourished. Skin: Skin color, texture, turgor normal Head: Normocephalic Neck: Supple Lungs: breathing unlabored on room air Extremities: No deformities, no weakness Neuro: Gait normal Abdomen: soft, flat, loose skin noted from weight loss. Short torso, narrow pelvis. ET/WOC NURSING TOPIC: OSTOMY INSTRUCTION and Preop Education/Stoma site marking READINESS TO LEARN COGNITIVE ABILITY: Alert and Oriented MOTIVATION TO LEARN: Eager INSTRUCTION PROVIDED TO: Patient and spouse PATIENT LEARNS BEST BY: Multiple Methods FACTORS AFFECTING LEARNING: None PHYSICAL LIMITATIONS AFFECTING LEARNING: None DIAGNOSIS: Rectal cancer PROCEDURE / SURGERY: Robotic LAR/DLI planned for 06/17/25 EDUCATION TOPIC/ TEACHING POINTS: Ostomy Care Stoma appearance and function, Purpose of the pouching system, Postoperative ostomy care per ET/WOC Nurse, Postoperative self ostomy care instruction, Discharge equipmentordering and support options and Diet METHOD OF INSTRUCTION: Individual instruction Written instruction - handouts PATIENT / FAMILY RESPONSE: Verbalizing understanding of: Preoperative teaching FOLLOW-UP PLAN: Recommend - Recommend continued instruction and follow up as directed and Follow upin ET Clinic as needed SUPPLEMENTAL MATERIAL: Pouch change Instruction Sheet, Preop Ostomy Handouts, Eating Right and Avoiding Dehydration after Bowel Surgery Handout and [facility] 24 hour Ostomy Output Recording Chart REFERRAL (RECOMMENDATION): Home Health Agency for post op stoma care. STOMA MARKING The stoma marking purpose and procedure was explained: yes. The patient verbalized understanding and agrees to the marking: yes. Rectus Muscle boarders are located: yes. Abdominal contour evaluation was performed in the lying position, sitting position and standing position. The stoma marking was made according to ET/WOC Nursing Procedure #401 in the RLQ. Patient is able to see site in the following positions: lying position, sitting position and standing position Comments: Enrolled in [employer] Medical Decision Making: Data Reviewed: Tests & Documents Reviewed/ordered: Review of prior notes from Dr. Tucker I have discussed the treatment plan with patient and spouse Time Increment: 40 minutes Richard Santos APRN.CNP [1] Social History Tobacco Use Smoking status: Every Day Current packs/day: 1.00 Average packs/day: 1 pack/day for 54.7 years (54.7 ttl pk-yrs) Types: Cigarettes Start date: 1970 Smokeless tobacco: Never Vaping Use Vaping status: Never Used Substance Use Topics Alcohol use: Yes Comment: very seldom Drug use: Not Currently documented in this encounterOhio[facility] Instructions* Patient Instructions* Debora Huff APRN.CNP - 06/08/2025 7:25 AM EDT Images from the original note were not included. [facility] PATIENT PREOPERATIVE INSTRUCTIONS Teresa Tucker MD has scheduled you for your procedure at this surgery center: [facility]: [phone] [id number] [address]. Please check in on thet floor at registration desk 6. Please read below carefully for your personalized instructions. Dietary Restrictions: - Follow bowel prep instructions, clear liquids need to be finished 2 hours prior to arrival Pre-Surgery Med Instructions Medication Instructions metroNIDAZOLE (FLAGYL) 500 mg tablet Per surgeon's instructions neomycin 500 mg tablet Per surgeon's instructions polyethylene glycol 3350 (MIRALAX) 17 gram/dose powder Per surgeon's instructions If you start any new medications after today's visit, please contact the surgeon's office. If you are currently using a iboo-lnw-qkat injectable or oral medication for diabetes or weight loss such as Dulaglutide (Radha), Exenatide (Byetta, Bydureon), Liraglutide (Victoza, Saxenda), Semaglutide (Ozempic, Wegovy, Rybelsus), or Tirzepatide (Mounjaro) the medicine should be stopped at least seven days before surgery. These medications can cause food to remain in your stomach for a long time and increase the risks from surgery and anesthesia. Not stopping these medications for the required time, may result in your surgery being rescheduled. Blood Thinning Medications: - Stop NSAIDS (Ibuprofen, Advil, Aleve, Motrin, Celebrex, Mobic, etc.) 7 days before surgery, as directed by your surgeon. - Stop herbals and dietary supplements 7 days before surgery. - You may take Tylenol (Acetaminophen) or any of your pain medications that do not contain aspirin or NSAIDS as needed. Important Reminders: - Candy, mints, and tobacco products are NOT permitted the morning of surgery. - Hearing aids, dentures and glasses may be worn the morning of surgery. - NO jewelry, body piercings, makeup, hairpins or contacts are to be worn the day of surgery. If you develop symptoms such as a fever, cold, or flu, or have other changes to your health within TWO DAYS of scheduled surgery or the morning of surgery, please contact the surgery center above. Personal Belongings: -Please have photo ID and insurance cards. -If you do not have a copy of advance directives on file with us, please bring a copy with you on the day of surgery. - Leave ALL valuables and money at home or with family members. For Outpatient Procedures: - YOU MUST HAVE A RESPONSIBLE LOSS PREVENTION LEAD TAKE YOU HOME. A WOOL SUPPLIER OR REAL ESTATE PROCESSOR CANNOT BE MADE A RESPONSIBLE LOSS PREVENTION LEAD. - We recommend that a responsible person stays with you overnight to take care of you. - You cannot stay in a hotel alone after outpatient surgery. You will not be permitted to have yoursurgery, if you do not have someone to take care of you. Arrival Time for Surgery: - The Surgery Center or hospital where you are having surgery will call the afternoon before surgery (or Friday for Friday surgery) with a scheduled arrival time. - If you have not heard by 4 pm, please contact the surgery center above. Please be aware that emergency situations arise, which may delay or change your surgical time. If this happens, we will notify you as soon as possible and regret any inconvenience. If you already have an Advance Directive, please fax a copy to [phone] or email to for it to be added to your chart. If you do not have an Advance Directive, you can find the appropriate form and more information at [email or web address]. We recommend that youcomplete the Advance Directive form found on the website and bring it with you the day of your surgery. It can be witnessed and scanned into your chart that day. documented in this encounterOhio[facility]09-02-2025 Telephone encounter Note * Telephone Encounter - Kareen Prather RN - 06/07/2025 12:24 PM EDT noted [facility]09-02-2025 Miscellaneous Notes* Telephone Encounter - Kareen Prather RN - 06/07/2025 12:24 PM EDT noted * Telephone Encounter - Juni Hendrix - 06/07/2025 12:13 PM EDT Pt calling back to explain if he made up his mind for surgery on 06/17. Patient wants to go through with surgery on this day. CB#: [phone] documented in this encounterOhiohealth [facility]09-02-2025 Telephone encounter Note * Telephone Encounter - Juni Hendrix - 06/07/2025 12:13 PM EDT Pt calling back to explain if he made up his mind for surgery on 06/17. Patient wants to go through with surgery on this day. #: [phone] [facility]09-02-2025 Telephone encounter Note* Telephone Encounter - Kareen Prather RN - 06/07/2025 11:31 AM EDT Called patient and left voice message asking him if he had decided on whether to proceed with surgery on 06/17 or postpone it. Told him our recommendation is for him to proceed with surgery on 06/17 but if he wants to postpone, please let us know so we can move some other people into that spot. Asked him to call our office back at [phone]. [facility]09-[facility] Miscellaneous Notes* Telephone Encounter - Kareen Prather RN - 06/07/2025 11:31 AM EDT Called patient and left voice message asking him if he had decided on whether to proceed with surgery on 06/17 or postpone it. Told him our recommendation is for him to proceed with surgery on 06/17 but if he wants to postpone, please let us know so we can move some other people into that spot. Asked him to call our office back at [phone]. documented in this encounterOhiohealth [facility]08-28-2025 Telephone encounter Note * Telephone Encounter - Kareen Prather RN - 06/02/2025 1:21 PM EDT Returned call to patient. He asked if he could postpone his surgery until after the first of the year because he has some jobs he needs to get done so his family will be financially stable while he recovers. He also asked if it's possible that his undescended testicle is what they are seeing on the MRI. I spoke with Dr. Tucker and she said that she would not recommend he wait until October to have his surgery because in that time, the residual cancer can grow. Ultimately, it is his choice. If he does wait another 4 months, she would need him to get repeat scans to re-determine if the cancer could be surgically removed at that time. She also said it is unlikely that what they are seeing is an undescended testicle because there aremultiple things shown on the scan. Called patient back and explained the above recommendations. Patient said he would talk to his javier and call back tomorrow. [facility] Miscellaneous Notes* Telephone Encounter - Kareen Prather RN - 06/02/2025 1:21 PM EDT Returned call to patient. He asked if he could postpone his surgery until after the first of the year because he has some jobs he needs to get done so his family will be financially stable while he recovers. He also asked if it's possible that his undescended testicle is what they are seeing on the MRI. I spoke with Dr. Tucker and she said that she would not recommend he wait until October to have his surgery because in that time, the residual cancer can grow. Ultimately, it is his choice. If he does wait another 4 months, she would need him to get repeat scans to re-determine if the cancer could be surgically removed at that time. She also said it is unlikely that what they are seeing is an undescended testicle because there aremultiple things shown on the scan. Called patient back and explained the above recommendations. Patient said he would talk to his javier and call back tomorrow. * Telephone Encounter - Juni Hendrix - 06/02/2025 12:05 PM EDT Pt has questions about upcoming surgery. CB#: [phone] documented in this encounterOhiohealth [facility]08-28-2025 Telephone encounter Note * Telephone Encounter - Juni Hendrix - 06/02/2025 12:05 PM EDT Pt has questions about upcoming surgery. CB#: [phone] [facility]08[facility]-26-[facility] Instructions * Patient Instructions* Hilary Sánchez MD - 05/31/2025 9:50 AM EDT Proceed with surgery as scheduled. F/u in 6 weeks documented in this encounterOhiohealth [facility]in [facility]08-26-2025 History of Present illness Narrative* Hilary Sánchez MD - 05/31/2025 9:40 AM EDT Images from the original note were not included. PATIENT NAME: Bentley Gonzalez CLINIC NO.: [id number] ATTENDING PHYSICIAN: Hilary Sánchez MD DATE OF SERVICE: 05/31/25 Some of the elements of this note have been copied from my previous progress note dated 05/03/25. All the information has been reviewed carefully. [...] now has large volume stool but still gomultiple times a day. His hematochezia is also [...] 15. - Smokes 1pk for 3 days. 12/06/2024: -Continues to do well with xeloda 1300 mg bid with radiation -denies n/v/d/c/bleeding/mucositis or HFS symptoms -Scheduled with Dr. Singh for port placement 12/08 -finishing xrt on 12/1512/29/2024: Bentley Gonzalez returns for scheduled to begin treatment with fluorouracil, leucovorin and oxaliplatin. He received radiation to the pelvis 11/08/2024 through 12/15/2024 concurrent with Xeloda. He tolerated concurrent chemoradiation well. He has an area of skin dryness at the radiation area which he isapplying Aquaphor. He had a port placed on 12/08/2024. He denies bleeding and abnormal bruising. No rectal bleeding. He is moving his bowels extremely well. He is having a bowel movement in the morningand the evening. His stools have improved in diameter and he is having sufficient stool output. He denies any diarrhea. He states that his appetite is great. He is eating like he used to. No mouth sor es. No hand-foot syndrome. He denies fevers, chills, night sweats and signs/symptoms of infection. Updated Visit, January 06, 2025: Bentley Gonzalez returns for follow up and blood work. He received cycle 1 FOLFOX on 12/29/2024 and tolerated it well. He had some constipation after treatment but resolved by Friday. He denies any diarrhea. He is moving his bowels well. He is eating okay and his appetite is fair. He denies mouth sores. No nausea, vomiting or abdominal pain. He had no cold sensitivity no numbness or tingling. He hasa persistent mild rash for which he takes Atarax for itching. He typically takes 2 doses a couple times a week. Right after treatment he felt great! He did then develop some fatigue. He denies fevers, chills, night sweats and signs/symptoms of infection. No bleeding or abnormal bruising. 01/26/25: - Doing well - MRI rectum done last week at [facility] - C/o fatigue. - Bowel movements are good. 02/09/25: -review of [facility] MRI pelvis dated 01/20/25 shows improvement in rectal mass and lymph nodes -does get some cold sensitivity for a few days following treatment -jaw will hurt when he takes first bite of food and then is fine -mild constipation for a few days as well -no mouth sores,nausea, vomiting, fevers or chills 02/23/25: - Cycle 5 FOLFOX today - Doing well - No major complaints. - Bowel movements are good. 03/09/25: - Cycle 6 FOLFOX today - Doing well - C/o skin rash in the low back. Itching in night. 03/23/25: - Continues to have rash on low back. - Lotrisone helped but recurred. - Cycle 7 FOLFOX today - C/o fatigue. 04/05/25: - Cycle 8 chemo - Doing well - Skin rash is gone. - C/o fatigue. - Mild cold sensitivity. 05/03/25: - Doing well - Seeing on 05/10/25 - Scheduled for MRI rectum on 05/19/25 - No major complaints. 05/31/25: - Doing well - Scheduled for surgery on 06/17/25 - Hyperplastic polyp on sigmoidoscopy Current Outpatient Medications Medication Sig iv contrast [...] administration guidelines link.(Patient not taking: Reported on 05/03/2025) enteric contrast (will be provided with radiology test) For CT CHESTABD/PEL W IVCON Routine order Administer, As Directed One Time Only, via Oral, Rectal, both Oral and Rectal, Enteric Tube, Stoma orIndwelling Catheter, Enteric Contrast as designated per enteric contrast guidelines (Patient not taking: Reported on 05/03/2025) polyethylene glycol 3350 (MIRALAX) 17 gram/dose powder Take 17 g by mouth as needed for constipation. Dissolve dose in 4 - 8 ounces of liquid and take as directed. (Patient not taking: Reported on 05/03/2025) No current facility-administered medications for this visit. ALLERGIES No Known Allergies PAST MEDICAL HISTORY Diagnosis Date Rectal cancer (HCC) 09/24/2024 incomplete colonoscopy- Dr Clemente PAST SURGICAL HISTORY Procedure Laterality Date TONSILLECTOMY & ADENOIDECTOMY <AGE 10 FAMILY HISTORY Problem Relation Age of Onset Breast Cancer Mother Lung Cancer Father Cancer Sister Social History Tobacco Use Smoking status: Every Day Current packs/day: 1.00 Average packs/day: 1 pack/day for 54.6 years (54.6 ttl pk-yrs) Types: Cigarettes Start date: 1970 Smokeless tobacco: Never Vaping Use Vaping status: Never Used Substance Use Topics Alcohol use: Yes Comment: very seldom Drug use: Not Currently REVIEW OF SYSTEMS General: No weight loss, malaise or fevers. No night sweats. HEENT: Negative for headaches, No changes in hearing or vision, no nose bleeds or other nasal problems. Respiratory: Negative for cough, wheezing and shortness of breath. Cardiovascular: Negative for chest pain, leg swelling and palpitations. GI: Negative for abdominal discomfort, blood in stools or black stools and change in bowel habits. See HPI. : Negative for dysuria, frequency and incontinence. Musculoskeletal: Negative for joint pain or swelling, back pain, and muscle pain. Skin: Negative for lesions, rash and itching. Hematology/Lymphology: Negative for prolonged bleeding, bruising easily, and swollen nodes. Neuro: Negative for numbness or tingling of hands/feet. No weakness. +some cold sensitivity PHYSICAL EXAMINATION: BP 125/77 Pulse 85 Temp 36.2 C (97.1 F) (Temporal) Resp 18 Wt 52.8 kg (116 lb 6.5 oz) SpO2 97% BMI 18.75 kg/m ECOG PERFORMANCE STATUS: 0- Fully active, able to carry on all pre-disease performance w/o restriction. General: Alert and oriented, no distress, pleasant and cooperative. Heart: Regular, normal S1 and S2, no murmurs, rubs, or gallops. Lungs: Clear to auscultation bilaterally. Abdomen: Benign. Extremities: Feet/ankles without edema, posterior tibial pulses full and symmetrical. SKIN : Rash resolved LABS: Glucose (mg/dL) Date Value 04/05/2025 99 Potassium (mmol/L) Date Value 04/05/2025 4.0 Sodium (mmol/L) Date Value 04/05/2025 139 Chloride (mmol/L) Date Value 04/05/2025 106 CO2 (mmol/L) Date Value 04/05/2025 23 Creatinine (mg/dL) Date Value 04/27/2025 0.68 BUN (mg/dL) Date Value 04/05/2025 10 Anion Gap (mmol/L) Date Value 04/05/2025 10 Calcium, Total (mg/dL) Date Value 04/05/2025 9.3 Protein, Total (g/dL) Date Value 04/05/2025 6.5 Albumin (g/dL) Date Value 04/05/2025 3.9 Bilirubin, Total (mg/dL) Date Value 04/05/2025 0.3 Alkaline Phosphatase (U/L) Date Value 04/05/2025 81 AST (U/L) Date Value 04/05/2025 35 ALT (U/L) Date Value 04/05/2025 28 WBC Date Value Ref Range Status 04/05/2025 4.66 3.70 - 11.00 k/uL Final RBC Date Value Ref Range Status 04/05/2025 3.75 (L) 4.20 - 6.00 m/uL Final Hemoglobin Date Value Ref Range Status 04/05/2025 12.9 (L) 13.0 - 17.0 g/dL Final Hematocrit Date Value Ref Range Status 04/05/2025 36.9 (L) 39.0 - 51.0 % Final MCV Date Value Ref Range Status 04/05/2025 98.4 80.0 - 100.0 fL Final MCH Date Value Ref Range Status 04/05/2025 34.4 (H) 26.0 - 34.0 pg Final MCHC Date Value Ref Range Status 04/05/2025 35.0 30.5 - 36.0 g/dL Final RDW-CV Date Value Ref Range Status 04/05/2025 14.5 11.5 - 15.0 % Final Platelet Count Date Value Ref Range Status 04/05/2025 72 (L) 150 - 400 k/uL Final Comment: No clot detected. MPV Date Value Ref Range Status 04/05/2025 10.0 9.0 - 12.7 fL Final Abs Neut Date Value Ref Range Status 04/05/2025 2.77 1.45 - 7.50 k/uL Final Lymphocytes % Date Value Ref Range Status 04/05/2025 12.2 % Final Abs Lymph Date Value Ref Range Status 04/05/2025 0.57 (L) 1.00 - 4.00 k/uL Final Monocytes % Date Value Ref Range Status 04/05/2025 22.1 % Final Abs Crosby Date Value Ref Range Status 04/05/2025 1.03 (H) <0.87 k/uL Final Abs Eosin Date Value Ref Range Status 04/05/2025 0.25 <0.46 k/uL Final Basophils % Date Value Ref Range Status 04/05/2025 0.4 % Final Abs Baso Date Value Ref Range Status 04/05/2025 <0.03 <0.11 k/uL Final PATH: IMAGING: CT chest [...] extra mesorectal lymph nodes: No. EMVI: Yes -MRI pelvis (01/20/25) -Single wall thickness of the rectal mass measures a maximum of 1.3 cm (3.2 cm previously). In coronal sequence, the mass measures approximately 4.1 x 3.4 cm (4.9 x 4.2 cm previously). There is micro lobulation and some spiculation surrounding the rectal mass extending into the ischial rectal fat. There is a small amount of fluid signal surrounding the periphery of the mass. There is a enlarged lymph node or mass residing at the S2 segment in the presacral space measuring 2.1 x 1.7 cm (3.1 x 2.6 cm previously). There is a smaller lymph node residing at the S1 level in the presacral space measuring 1.0 cm (1.3cm previously). ASSESSMENT AND PLAN: Bentley Gonzalez is a [...] of radiation - Started radiation on 11/08/24. Radiation to pelvis completed on 12/15/2024. He tolerated chemoradiation well. - Port placed 12/08/2024. - 12/29/2024 Started treatment with fluorouracil, leucovorin and oxaliplatin (FOLFOX) - Cycle 1 - Plan is for treatment every 14 days x 8 cycles - Targeted oncology panel did not show any evidence of actionable mutations. -MRI rectum 01/20/25 showed improvement in size of rectal mass and the enlarged lymph nodes in the S1 and S2 levels of the presacral space Completed 8 cycles of FOLFOX on 04/05/25 - CT C/A/P on 04/27/25 showed unchanged lung nodules and Improvement in previously noted rectal wallthickening and decreased size of the superior rectal lymph node mass PLAN: 1. Rectal cancer (HCC) - ICD9: 154.1, ICD10: C20 - MRI rectum on 05/19/25 showed Decrease in size of mid-rectal mass with some post-treatment fibrosis, although still with significant residual viable tumor. Dominant superior rectal tumor deposit (which also abuts the mesorectal fascia posteriorly) has decreased in size. A single left mesorectal node is decreased in size but remains suspicious - Had sigmoidoscopy with . A couple polyps 1 in the sigmoid 1 in the rectum were removed. Both these were hyperplastic polyps on pathology - Seen by on 05/26/25. Scheduled for surgery on 06/17/25. -Proceed with the surgery as scheduled. - We will monitor the lung nodules for now -All his questions answered in detail - Follow-up in 6 weeks Hilary Sánchez MD. Hematology/Oncology [facility]: I spent a total of 20 minutes on the date of the service which included preparing to see the patient, [id number] patient care, completing clinical documentation, performing a medically appropriate examination, counseling and educating the patient/family/caregiver, ordering medications, tests, or p rocedures, independently interpreting results (not separately reported), communicating results to the patient/family/caregiver, and care coordination (not separately reported). documented in this encounterOhiohealth [facility]08-26-2025 Note[facility]-2025 Note[facility]08-21-2025 History of Present illness Narrative* Kareen Prather RN - 05/26/2025 10:42 AM EDT AMBULATORY PATIENT EDUCATION NOTE SURGICAL PREPARATION: robotic LAR + mediport removal SURGERY DATE: 06-17-25 DIAGNOSIS: rectal cancer READINESS TO LEARN COGNITIVE ABILITY: Alert and oriented MOTIVATION TO LEARN: Eager FAMILY SUPPORT: High - Very involved in pt care PHYSICAL LIMITATIONS AFFECTING LEARNING: None METHOD OF INSTRUCTION: Verbal and Written instruction - handouts provided in blue folder SUPPLEMENTAL MATERIAL: - Location of surgery/ date - patient aware date is tentative and subject to change - [facility] appointment needed with in 30 days of surgery - Bowel preparations prior to surgery: *Miralax bowel prep instructions provided *May have sips of water up until 3 hrs of arrival time for surgery - Antibiotics preoperatively - Antimicrobial shower/wipes use -[facility] paperwork discussed- submit any forms to office at [phone] WOUND CARE - Post operative wound care expectations reviewed. - Ostomy care - patient aware to be scheduled for WOCN evaluation and ostomy education/marking Appointment for ostomy marking and education on 06/10/25 DIET- handouts provided on diet post op: -Post op diet following colorectal surgery = reviewed food choices and avoiding dehydration or constipation. Handout provided to patient. Patient (and Family member) acknowledges and understands. -They have contact phone number for further concerns and for post operative questions. -Staff Message sent to OR inspector tubes with procedure/time/date for patient. TIME SPENT: 20 min Electronically Signed By: Kareen CHAPMAN, RN [facility] Specialty Visitor Services Associate documented in this encounterOhiohealth Hardin [facility]08-21-2025 Instructions* Patient Instructions* Teresa Tucker MD - 05/26/2025 10:34 AM EDT We discussed your rectal cancer and treatment plan: - You have completed chemotherapy and radiation therapy. Your endoscopy showed no visible tumor, but your MRI indicates residual cancer. Based on this, I recommend proceeding with surgery. - The planned surgery is a robotic-assisted lower anterior resection with a temporary loop ileostomy. This will remove the tumor, part of your rectum, part of your colon, and nearby lymph nodes. The two ends of your intestine will be reconnected, and the temporary ileostomy will allow the area to heal. - The ileostomy (temporary bag) will be reversed approximately 3 months after surgery. - Risks of surgery include pain, bleeding (which may require a transfusion), infection, leakage at the reconnection site, and injury to nearby structures (e.g., bladder, spleen, kidneys, ureters). There is also a small chance the surgery may need to be converted to an open procedure if it cannot becompleted robotically. - After surgery, you may experience changes in bowel habits, including increased frequency, urgency, or incontinence, due to the reduced rectal capacity and prior radiation. These changes are expected and will be managed as needed. - Recovery after surgery typically takes 2-4 weeks. You will need to avoid lifting anything over 15pounds for 4 weeks and follow a low-fiber diet for 2 weeks after surgery. - You will stay in the hospital for 3-5 days after surgery to recover and learn how to manage the temporary ileostomy. A nurse will teach you how to empty and change the bag. We discussed your smoking: - You are currently smoking a pack of cigarettes per day. I strongly recommend continuing to work on reducing your smoking, as it will improve your recovery and lung health after surgery. We discussed your nutrition: - Your weight is stable, but I recommend increasing your protein intake to improve your nutritionalstatus before surgery. Please drink 2-3 protein shakes daily and focus on eating a balanced diet with adequate protein. We discussed your mediport: - You requested to have your mediport removed. I will remove it during your surgery. However, please note that if your oncologist recommends keeping it, it may need to be replaced later. We discussed additional considerations: - You declined participation in a clinical research trial involving the medication TXA, which is being studied to reduce bleeding during surgery. Next steps: - My nurse will provide you with a surgery date, which will likely be in 2-3 weeks. This will give you time to recover further and prepare for surgery. - You will meet with Danisha Alba, our nurse practitioner, who will ines your abdomen for the ileostomy placement and provide additional education about managing the temporary bag. - Please continue to work on reducing smoking and improving your nutrition in preparation for surgery. If you have any questions or concerns before your surgery, please contact our office. documented in this encounterOhiohealth [facility]in [facility]08-21-2025 History of Present illness Narrative* Teresa Tucker MD - 05/26/2025 9:40 AM EDT COLORECTAL SURGERY CLINIC NOTE Brief History: Bentley Gonzalez is a 64 year old man with an endoscopcially obstructing distal LARC s/p CAR, which was completed on 04/05/2025. Here for follow up Medical oncology - Dr. Sánchez Radiation oncology - Dr. Monson Interval event: He recently completed a course of chemoradiation, reporting that the first 5 treatments were well-tolerated, while the last 3 were more challenging. He is now beginning to regain energy. He reports regular, daily, formed bowel movements without hematochezia, fecal urgency, or incontinence. He notesa single episode of near-urgency during bowel preparation for a recent scope, but no actual incontinence. He denies abdominal or rectal pain. His weight has remained stable. He underwent a recent flex sigmoidoscopy with Dr. Clemente, who reported no visible residual tumor and removed several polyps. HP on path. MRI, however, demonstrated residual disease. He smokes approximately 1 pack of cigarettes daily, though he reports making some effort to reduce this. His diet is described as suboptimal, with a preference for junk food and low protein intake. He is not currently taking any anticoagulant medications. PAST MEDICAL HISTORY Diagnosis Date Rectal cancer (HCC) 09/24/2024 incomplete colonoscopy- Dr Clemente PAST SURGICAL HISTORY Procedure Laterality Date TONSILLECTOMY & ADENOIDECTOMY <AGE 10 Current Outpatient Medications Medication Sig Dispense Refill metroNIDAZOLE (FLAGYL) 500 mg tablet Take 1 tablet by mouth as directed. Take one tab at 6:00 p.m.,another at 7:00 p.m. and the last one at 11:00 p.m., prior to surgery 3 tablet 0 neomycin 500 mg tablet Take 2 tablets by mouth as directed. Take two tabs at 6:00 p.m., 7:00 p.m. and 11:00 p.m., prior to surgery 6 tablet 0 iv contrast (will be provided [...] administration guidelines link.(Patient not taking: Reported on 05/03/2025) 1 each 0 enteric contrast (will be provided with radiology test) For CT CHESTABD/PEL W IVCON Routine order Administer, As Directed One Time Only, via Oral, Rectal, both Oral and Rectal, Enteric Tube, Stoma orIndwelling Catheter, Enteric Contrast as designated per enteric contrast guidelines (Patient not taking: Reported on 05/03/2025) 1 each 0 polyethylene glycol 3350 (MIRALAX) 17 gram/dose powder Take 17 g by mouth as needed for constipation. Dissolve dose in 4 - 8 ounces of liquid and take as directed. (Patient not taking: Reported on 05/03/2025) No current facility-administered medications for this visit. ALLERGIES No Known Allergies FAMILY HISTORY Problem Relation Age of Onset Breast Cancer Mother Lung Cancer Father Cancer Sister SOCIAL HISTORY[1] Physical Exam: BP 122/76 (BP Site: Right Arm, BP Position: Sitting, BP Cuff Size: Regular Adult) Pulse 74 Temp36.4 C (97.5 F) SpO2 99% General Appearance: Well appearing, alert, in no acute distress, well-hydrated, well nourished. Abdomen: soft, non distended, non tender. Anorectal: deferred Initial MRI rectum 10/29/24 Stage: T3d N+ [...] 02/23/25 09:03 CEA 2.6 2.8 1.7 2.0 Assessment Assessment and Plan: Bentley Gonzalez is a 64 year old man with an endoscopcially obstructing distal LARC s/p CAR, which was completed on 04/05/2025. Post-treatment flex completed at outside facility but per report, no tumornoted. However, MRI with residual tumor and tumor deposits. I explained to patient and his that he isn't a candidate for W+W and I have recommended proctectomy as next step. Surgical steps, recovery, R/B/A of robotic LAR/DLI, possible open were reviewed. We discussed functional outcome of LAR and possibility of colostomy upfront. He would prefer anastomosis and doesn't want a permanent bag. He wants to proceed with surgery and also have removal of his mediport. Informed consent obtained Bowel prep PAT Preop lans Smoking cessation Protein shake TID Will schedule at [facility] Will need completion c/scope post-op Declined TXA trial Medical Decision Making: Data Reviewed: Tests & Documents Reviewed/ordered: Review of prior notes from Dr. Bryn FIGUEROA Review of Pathology Review of Imaging: CT Abdomen, CT Pelvis, MRI Pelvis, CT Chest Review of Labs: CEA Review of Procedures / Tests: Flexible Sigmoidoscopy I have independently interpreted: CT Abdomen, CT Pelvis, MRI Pelvis, CT Chest I have discussed Bentley Gonzalez's treatment plan and/or results with patient and his . Risk of morbidity, mortality and/or complications of treatment plan: moderate Teresa Tucker MD Colorectal Surgery [1] Social History Tobacco Use Smoking status: Every Day Current packs/day: 1.00 Average packs/day: 1 pack/day for 54.6 years (54.6 ttl pk-yrs) Types: Cigarettes Start date: 1970 Smokeless tobacco: Never Vaping Use Vaping status: Never Used Substance Use Topics Alcohol use: Yes Comment: very seldom Drug use: Not Currently documented in this encounterOhiohealth [facility]08-21-2025 NoteMartins Ferry [facility]08-14-2025 History of Present illness Narrative* Willian Chamberlain RN - 05/19/2025 6:30 PM EDT Radiology Service Progress Note DATE OF SERVICE: May 19, 2025 TIME: 6:31 PM PATIENT WEIGHT: 113LBS PATIENT IDENTITY VERIFICATION COMPLETED USING TWO (2) STANDARD IDENTIFIERS: Name and Date of confirmed by patient verbally and Name and Date of confirmed by identification band. FALL SCREENING: Has the patient had 2 falls in the last year or 1 fall with injury or currently using an Ambulatory Assistive Device (Walker, Cane, Wheelchair, Crutches, etc.)? No PATIENT GENDER DATA: Assigned male at ALLERGIES: Reviewed and unchanged CONTRAST ALLERGY: No EXAM: MRI - CONTRAST TYPE: GROUP II IV SITE: Ambulatory: A peripheral IV was started in the Right antecubital site with a Angio cath: 22 gauge. and A Saline lock was inserted per protocol IV SITE APPEARANCE: Clean,Dry and Intact SIGNATURE: Willian Chamberlain RN PATIENT NAME: Bentley Gonzalez DATE: May 19, 2025 TIME: 6:31 PM * Carlin Coyne MRI Tech - 05/19/2025 6:30 PM EDT Radiology Service Progress Note PATIENT NAME: Bentley Gonzalez DATE OF SERVICE: May 19, 2025 TIME: 7:18 PM PATIENT IDENTITY VERIFICATION COMPLETED USING TWO (2) IDENTIFIERS: Name and Date of confirmedby patient verbally and Name and Date of confirmed by identification band. FALL SCREENING: Has the patient had 2 falls in the last year or 1 fall with injury or currently using an Ambulatory Assistive Device (Walker, Cane, Wheelchair, Crutches, etc.)? No PATIENT GENDER DATA: Assigned male at PATIENT RELEVANT IMPLANT DATA REVIEWED: Yes PATIENT PRESENTS WITH AN IMPLANTABLE OR ATTACHED BIT GRINDER: No RADIOLOGY DEPARTMENT: MR; Exam(s) Completed: Body: Rectal. Aromatherapy Administered: No PERIPHERAL IV DATA: Site assessment: Clean,Dry and Intact, Site disposition Discontinued SIGNED BY: ALICIA Jensen May 19, 2025 7:18 PM documented in this encounterOhiohealth [facility]in [facility]08-14-2025 NoteMart[facility]08-14-2025 NoteMart[facility]08-05-2025 History of Present illness Narrative* Adonay Cleaning MD - 05/10/2025 1:45 PM EDT Images from the original note were not included. Bentley Gonzalez 1960 Bentley Gonzalez is a 64 y.o. male presents with chief complaint of colonoscopy, past AVV pt, finished chemo treatments (MRI next . In [place], Sees Dr. Nunez ) HPI: Patient is a 64 y.o. male coming in for a colonoscopy. His last colonoscopy was in October that revealed rectal cancer. [facility].He was treated w/ radiation and chemotherapy. He had constipation when he was on chemotherapy that has resolved since he stoppedhis treatment on April 07. The patient states his bowel movements now are fairly normal. Denies rectal pain or blood in the stool. He states that imaging studies have shown no spread of his cancer. Patient is to see a surgeon for the cancer in about 3 weeks. It was requested the patient have a flexible sigmoidoscopy done before hand. Denies taking any medication Denies family hx of colon cancer Patient says he is a smoker. Denies nausea, vomiting, SOB, or chest pain. SUBJECTIVE: MEDICATIONS: ALLERGIES Current Outpatient Medications Medication Instructions hydrOXYzine HCl (ATARAX) 10 mg, Oral, Every 8 hours PRN ondansetron (ZOFRAN) 8 mg, Every 8 hours PRN PEG 3350 (Glycolax, Miralax) 4 gram packet 1 Dose, Daily PRN prochlorperazine (COMPAZINE) 10 mg, Every 6 hours PRN No Known Allergies PAST MEDICAL HISTORY: SOCIAL HISTORY SURGICAL HISTORY: Past Medical History: Diagnosis Date Cancer (HCC) rectal Diabetes mellitus (HCC) Obstruction of rectum 10/01/2024 Type 2 diabetes mellitus with diabetic neuropathy (HCC) 08/04/2023 Social History Tobacco Use Smoking status: Every Day Current packs/day: 1.00 Types: Cigarettes Smokeless tobacco: Never Vaping Use Vaping status: Never Used Substance Use Topics Alcohol use: Yes Comment: 1 or 2 every couple month Drug use: Never Past Surgical History: Procedure Laterality Date COLONOSCOPY 09/24/2024 PORTACATH PLACEMENT TONSILLECTOMY REVIEW OF SYMPTOMS: Review of Systems Constitutional: Negative for chills, fatigue and fever. Respiratory: Negative for chest tightness and shortness of breath. Cardiovascular: Negative for chest pain. Gastrointestinal: Negative for abdominal pain, blood in stool, constipation, diarrhea, nausea and vomiting. Constipation has resolved Genitourinary: Negative for difficulty urinating. OBJECTIVE: Visit Vitals Ht 5' 8 Wt 113 lb 12.8 oz BMI 17.30 kg/m Smoking Status Every Day BSA 1.57 m Physical Exam Constitutional: General: He is not in acute distress. HENT: Head: Atraumatic. Eyes: General: No scleral icterus. Cardiovascular: Rate and Rhythm: Normal rate and regular rhythm. Heart sounds: Normal heart sounds. Pulmonary: Breath sounds: Normal breath sounds. Abdominal: General: There is no distension. Palpations: Abdomen is soft. Tenderness: There is no abdominal tenderness. Skin: General: Skin is warm and dry. Neurological: Mental Status: He is alert. ASSESSMENT AND PLAN: Assessment/Plan Diagnoses and all orders for this visit: Rectal cancer (HCC) Plan will be to perform a flexible sigmoidoscopy. The procedure, benefits, risks including risks ofbleeding, perforation discussed. documented in this encounterEllett Memorial [id number] Instructions* Patient Instructions* Hilary Sánchez MD - 05/03/2025 10:09 AM EDT Please make a follow up appt with Teresa Torres Proceed with MRI rectum as scheduled F/u in 4 weeks documented in this encounterOhio[facility]07-29-2025 History of Present illness Narrative* Hilary Sánchez MD - 05/03/2025 9:40 AM EDT Images from the original note were not included. PATIENT NAME: Bentley Gonzalez [facility] NO.: [id number] ATTENDING PHYSICIAN: Hilary Sánchez MD DATE OF SERVICE: 05/03/25 Some of the elements of this note have been copied from my previous progress note dated 04/05/25. Allthe information has been reviewed carefully. CHIEF COMPLAINT: [...] now has large volume stool but still gomultiple times a day. His hematochezia is also [...] 15. - Smokes 1pk for 3 days. 12/06/2024: -Continues to do well with xeloda 1300 mg bid with radiation -denies n/v/d/c/bleeding/mucositis or HFS symptoms -Scheduled with Dr. Singh for port placement 12/08 -finishing xrt on 12/1512/29/2024: Bentley Gonzalez returns for scheduled to begin treatment with fluorouracil, leucovorin and oxaliplatin. He received radiation to the pelvis 11/08/2024 through 12/15/2024 concurrent with Xeloda. He tolerated concurrent chemoradiation well. He has an area of skin dryness at the radiation area which he isapplying Aquaphor. He had a port placed on 12/08/2024. He denies bleeding and abnormal bruising. No rectal bleeding. He is moving his bowels extremely well. He is having a bowel movement in the morningand the evening. His stools have improved in diameter and he is having sufficient stool output. He denies any diarrhea. He states that his appetite is great. He is eating like he used to. No mouth sor es. No hand-foot syndrome. He denies fevers, chills, night sweats and signs/symptoms of infection. Updated Visit, January 06, 2025: Bentley Gonzalez returns for follow up and blood work. He received cycle 1 FOLFOX on 12/29/2024 and tolerated it well. He had some constipation after treatment but resolved by Friday. He denies any diarrhea. He is moving his bowels well. He is eating okay and his appetite is fair. He denies mouth sores. No nausea, vomiting or abdominal pain. He had no cold sensitivity no numbness or tingling. He hasa persistent mild rash for which he takes Atarax for itching. He typically takes 2 doses a couple times a week. Right after treatment he felt great! He did then develop some fatigue. He denies fevers, chills, night sweats and signs/symptoms of infection. No bleeding or abnormal bruising. 01/26/25: - Doing well - MRI rectum done last week at [facility] - C/o fatigue. - Bowel movements are good. 02/09/25: -review of [facility] MRI pelvis dated 01/20/25 shows improvement in rectal mass and lymph nodes -does get some cold sensitivity for a few days following treatment -jaw will hurt when he takes first bite of food and then is fine -mild constipation for a few days as well -no mouth sores,nausea, vomiting, fevers or chills 02/23/25: - Cycle 5 FOLFOX today - Doing well - No major complaints. - Bowel movements are good. 03/09/25: - Cycle 6 FOLFOX today - Doing well - C/o skin rash in the low back. Itching in night. 03/23/25: - Continues to have rash on low back. - Lotrisone helped but recurred. - Cycle 7 FOLFOX today - C/o fatigue. 04/05/25: - Cycle 8 chemo - Doing well - Skin rash is gone. - C/o fatigue. - Mild cold sensitivity. 05/03/25: - Doing well - Seeing on 05/10/25 - Scheduled for MRI rectum on 05/19/25 - No major complaints. Current Outpatient Medications Medication Sig hydrOXYzine HCl (ATARAX) 10 mg tablet Take 1 tablet by mouth three times a day as needed for itching/rash. iv contrast (will be provided with radiology [...] administration guidelines link.(Patient not taking: Reported on 04/05/2025) enteric contrast (will be provided with radiology test) For CT CHESTABD/PEL W IVCON Routine order Administer, As Directed One Time Only, via Oral, Rectal, both Oral and Rectal, Enteric Tube, Stoma orIndwelling Catheter, Enteric Contrast as designated per enteric contrast guidelines polyethylene glycol 3350 (MIRALAX) 17 gram/dose powder Take 17 g by mouth as needed for constipation. Dissolve dose in 4 - 8 ounces of liquid and take as directed. No current facility-administered medications for this visit. ALLERGIES No Known Allergies No past medical history on file. PAST SURGICAL HISTORY Procedure Laterality Date TONSILLECTOMY & ADENOIDECTOMY <AGE 10 FAMILY HISTORY Problem Relation Age of Onset Breast Cancer Mother Lung Cancer Father Cancer Sister Social History Tobacco Use Smoking status: Every Day Current packs/day: 1.00 Average packs/day: 1 pack/day for 54.6 years (54.6 ttl pk-yrs) Types: Cigarettes Start date: 1970 Smokeless tobacco: Never Vaping Use Vaping status: Never Used Substance Use Topics Alcohol use: Yes Comment: very seldom Drug use: Not Currently REVIEW OF SYSTEMS General: No weight loss, malaise or fevers. No night sweats. HEENT: Negative for headaches, No changes in hearing or vision, no nose bleeds or other nasal problems. Respiratory: Negative for cough, wheezing and shortness of breath. Cardiovascular: Negative for chest pain, leg swelling and palpitations. GI: Negative for abdominal discomfort, blood in stools or black stools and change in bowel habits. See HPI. : Negative for dysuria, frequency and incontinence. Musculoskeletal: Negative for joint pain or swelling, back pain, and muscle pain. Skin: Negative for lesions, rash and itching. Hematology/Lymphology: Negative for prolonged bleeding, bruising easily, and swollen nodes. Neuro: Negative for numbness or tingling of hands/feet. No weakness. +some cold sensitivity PHYSICAL EXAMINATION: BP 125/77 Pulse 85 Temp 36.2 C (97.1 F) (Temporal) Resp 18 Wt 52.8 kg (116 lb 6.5 oz) SpO2 97% BMI 18.75 kg/m ECOG PERFORMANCE STATUS: 0- Fully active, able to carry on all pre-disease performance w/o restriction. General: Alert and oriented, no distress, pleasant and cooperative. Heart: Regular, normal S1 and S2, no murmurs, rubs, or gallops. Lungs: Clear to auscultation bilaterally. Abdomen: Benign. Extremities: Feet/ankles without edema, posterior tibial pulses full and symmetrical. SKIN : Rash resolved LABS: Glucose (mg/dL) Date Value 04/05/2025 99 Potassium (mmol/L) Date Value 04/05/2025 4.0 Sodium (mmol/L) Date Value 04/05/2025 139 Chloride (mmol/L) Date Value 04/05/2025 106 CO2 (mmol/L) Date Value 04/05/2025 23 Creatinine (mg/dL) Date Value 04/27/2025 0.68 BUN (mg/dL) Date Value 04/05/2025 10 Anion Gap (mmol/L) Date Value 04/05/2025 10 Calcium, Total (mg/dL) Date Value 04/05/2025 9.3 Protein, Total (g/dL) Date Value 04/05/2025 6.5 Albumin (g/dL) Date Value 04/05/2025 3.9 Bilirubin, Total (mg/dL) Date Value 04/05/2025 0.3 Alkaline Phosphatase (U/L) Date Value 04/05/2025 81 AST (U/L) Date Value 04/05/2025 35 ALT (U/L) Date Value 04/05/2025 28 WBC Date Value Ref Range Status 04/05/2025 4.66 3.70 - 11.00 k/uL Final RBC Date Value Ref Range Status 04/05/2025 3.75 (L) 4.20 - 6.00 m/uL Final Hemoglobin Date Value Ref Range Status 04/05/2025 12.9 (L) 13.0 - 17.0 g/dL Final Hematocrit Date Value Ref Range Status 04/05/2025 36.9 (L) 39.0 - 51.0 % Final MCV Date Value Ref Range Status 04/05/2025 98.4 80.0 - 100.0 fL Final MCH Date Value Ref Range Status 04/05/2025 34.4 (H) 26.0 - 34.0 pg Final MCHC Date Value Ref Range Status 04/05/2025 35.0 30.5 - 36.0 g/dL Final RDW-CV Date Value Ref Range Status 04/05/2025 14.5 11.5 - 15.0 % Final Platelet Count Date Value Ref Range Status 04/05/2025 72 (L) 150 - 400 k/uL Final Comment: No clot detected. MPV Date Value Ref Range Status 04/05/2025 10.0 9.0 - 12.7 fL Final Abs Neut Date Value Ref Range Status 04/05/2025 2.77 1.45 - 7.50 k/uL Final Lymphocytes % Date Value Ref Range Status 04/05/2025 12.2 % Final Abs Lymph Date Value Ref Range Status 04/05/2025 0.57 (L) 1.00 - 4.00 k/uL Final Monocytes % Date Value Ref Range Status 04/05/2025 22.1 % Final Abs Crosby Date Value Ref Range Status 04/05/2025 1.03 (H) <0.87 k/uL Final Abs Eosin Date Value Ref Range Status 04/05/2025 0.25 <0.46 k/uL Final Basophils % Date Value Ref Range Status 04/05/2025 0.4 % Final Abs Baso Date Value Ref Range Status 04/05/2025 <0.03 <0.11 k/uL Final PATH: IMAGING: CT chest [...] extra mesorectal lymph nodes: No. EMVI: Yes -MRI pelvis (01/20/25) -Single wall thickness of the rectal mass measures a maximum of 1.3 cm (3.2 cm previously). In coronal sequence, the mass measures approximately 4.1 x 3.4 cm (4.9 x 4.2 cm previously). There is micro lobulation and some spiculation surrounding the rectal mass extending into the ischial rectal fat. There is a small amount of fluid signal surrounding the periphery of the mass. There is a enlarged lymph node or mass residing at the S2 segment in the presacral space measuring 2.1 x 1.7 cm (3.1 x 2.6 cm previously). There is a smaller lymph node residing at the S1 level in the presacral space measuring 1.0 cm (1.3cm previously). ASSESSMENT AND PLAN: Bentley Gonzalez is a [...] of radiation - Started radiation on 11/08/24. Radiation to pelvis completed on 12/15/2024. He tolerated chemoradiation well. - Port placed 12/08/2024. - 12/29/2024 Started treatment with fluorouracil, leucovorin and oxaliplatin (FOLFOX) - Cycle 1 - Plan is for treatment every 14 days x 8 cycles - Targeted oncology panel did not show any evidence of actionable mutations. -MRI rectum 01/20/25 showed improvement in size of rectal mass and the enlarged lymph nodes in the S1 and S2 levels of the presacral space PLAN: 1. Rectal cancer (HCC) - ICD9: 154.1, ICD10: C20 - Completed 8 cycles of FOLFOX on 04/05/25 - CT C/A/P on 04/27/25 showed unchanged lung nodules and Improvement in previously noted rectal wallthickening and decreased size of the superior rectal lymph node mass. - Scheduled for MRI rectum on 05/19/25 - Advised him to follow up with for a sigmoidoscopy to be done in May 2025. Scheduled to see on 05/10/25. - We will make a follow up appt with surgeon . - Further management depending on MRI rectum and sigmoidoscopy findings. - F/u in 4 weeks. Hilary Sánchez MD. Hematology/Oncology [facility]: I spent a total of 20 minutes on the date of the service which included preparing to see the patient, [id number] patient care, completing clinical documentation, performing a medically appropriate examination, counseling and educating the patient/family/caregiver, ordering medications, tests, or p rocedures, independently interpreting results (not separately reported), communicating results to the patient/family/caregiver, and care coordination (not separately reported). documented in this encounterOhio[facility]07-29-2025 NoteMart[facility]07-24-[facility] Telephone encounter Note* Telephone Encounter - Mariola Ballard RN - 04/28/2025 2:32 PM EDT Pt finished treatment on April 07 and is scheduled to be in a golf outing this . Pt asking if he's able to have a couple beers during the scramble. Encouraged pt to increase his oral fluid intake if he is going to have a couple of beers and pt verbalized understanding. Mariola Ballard RN [facility] Work Phone: [phone] 348-811007-24-2025 Miscellaneous Notes* Telephone Encounter - Mariola Ballard RN - 04/28/2025 2:32 PM EDT Pt finished treatment on April 07 and is scheduled to be in a golf outing this weekend. Pt asking if he's able to have a couple beers during the scramble. Encouraged pt to increase his oral fluid intake if he is going to have a couple of beers and pt verbalized understanding. Mariola G Elio, RN documented in this encounterOhiohealth Hardin [facility]07-23-2025 History of Present illness Narrative* Maya Baptiste RN - 04/27/2025 9:45 AM EDT Radiology Service Progress Note DATE OF SERVICE: April 27, 2025 TIME: 10:00 AM PATIENT WEIGHT: 111LBS PATIENT IDENTITY VERIFICATION COMPLETED USING TWO (2) [...] RISK FACTORS: Patient age > 60 years and History of Kidney surgery, Kidney neoplasm, Liver disease, and/or any recent Nephrotoxic Chemotherapy or other Nephrotoxic medications CREATININE: Creatinine Date Value Ref Range Status 04/27/2025 0.68 (L) 0.73 - 1.22 mg/dL Final 04/05/2025 0.67 (L) 0.73 - 1.22 mg/dL Final 03/23/2025 0.61 (L) 0.73 - 1.22 mg/dL Final Estimated Glomerular Filtration Rate Date Value Ref Range Status 04/27/2025 103 >=60 mL/min/1.73m Final Comment: Estimated Glomerular Filtration Rate (eGFR) is calculated using the 2020 CKD-EPI creatinine equation. This equation utilizes serum creatinine, sex, and age as parameters. The creatinine assay has traceable calibration to isotope dilution- mass spectrometry. Refer to KDIGO guidelines for clinical interpretation. In patients with unstable renal function, e.g. those with acute kidney injury, the eGFRmay not accurately reflect actual GFR. P.O.C.T. RESULTS: POC done: Yes, See Lab Tab April 27, 2025 TREATMENT: N/A IV SITE: Ambulatory: A power injectable Mediport was accessed in the Right chest with a .75 inch 20gauge needle. Blood Return, Flushed easily with normal saline, and No Complications IV SITE APPEARANCE: Clean,Dry and Intact Port flushed with 20cc NS post scan Port needle removed SIGNATURE: Maya Baptiste RN PATIENT NAME: Benltey Gonzalez DATE: April 27, 2025 TIME: 10:00 AM * Dari Mcguire RT(R) - 04/27/2025 9:45 AM EDT Radiology Service Progress Note PATIENT NAME: Bentley Gonzalez DATE OF SERVICE: April 27, 2025 TIME: 9:49 AM PATIENT IDENTITY VERIFICATION COMPLETED USING TWO (2) IDENTIFIERS: Name and Date of confirmedby patient verbally. FALL SCREENING: Has the patient had 2 falls in the last year or 1 fall with injury or currently using an Ambulatory Assistive Device (Walker, Cane, Wheelchair, Crutches, etc.)? No PATIENT GENDER DATA: Assigned male at PATIENT RELEVANT IMPLANT DATA REVIEWED: Not Applicable PATIENT PRESENTS WITH AN IMPLANTABLE OR ATTACHED BIT GRINDER: No RADIOLOGY DEPARTMENT: CT; Exam(s) Completed: Chest Abdomen Pelvis PERIPHERAL IV DATA: Not applicable SIGNED BY: RT Cheyenne(R) April 27, 2025 9:49 AM PORT 12/08/2024 documented in this encounterOhiohealth Hardin [facility]07-23-2025 NoteMart[facility]07-23-2025 NoteMart[facility]07-01-2025 History of Present illness Narrative* Hilary Sánchez MD - 04/05/2025 9:30 AM EDT Images from the original note were not included. PATIENT NAME: Bentley Gonzalez [facility] NO.: [id number] ATTENDING PHYSICIAN: Hilary Sánchez MD DATE OF SERVICE: 04/05/25 Some of the elements of this note have been copied from my previous progress note dated 03/23/25. All the information has been reviewed carefully. [...] now has large volume stool but still gomultiple times a day. His hematochezia is also [...] 15. - Smokes 1pk for 3 days. 12/06/2024: -Continues to do well with xeloda 1300 mg bid with radiation -denies n/v/d/c/bleeding/mucositis or HFS symptoms -Scheduled with Dr. Singh for port placement 12/08 -finishing xrt on 12/1512/29/2024: Bentley Gonzalez returns for scheduled to begin treatment with fluorouracil, leucovorin and oxaliplatin. He received radiation to the pelvis 11/08/2024 through 12/15/2024 concurrent with Xeloda. He tolerated concurrent chemoradiation well. He has an area of skin dryness at the radiation area which he isapplying Aquaphor. He had a port placed on 12/08/2024. He denies bleeding and abnormal bruising. No rectal bleeding. He is moving his bowels extremely well. He is having a bowel movement in the morningand the evening. His stools have improved in diameter and he is having sufficient stool output. He denies any diarrhea. He states that his appetite is great. He is eating like he used to. No mouth sor es. No hand-foot syndrome. He denies fevers, chills, night sweats and signs/symptoms of infection. Updated Visit, January 06, 2025: Bentley Gonzalez returns for follow up and blood work. He received cycle 1 FOLFOX on 12/29/2024 and tolerated it well. He had some constipation after treatment but resolved by Friday. He denies any diarrhea. He is moving his bowels well. He is eating okay and his appetite is fair. He denies mouth sores. No nausea, vomiting or abdominal pain. He had no cold sensitivity no numbness or tingling. He hasa persistent mild rash for which he takes Atarax for itching. He typically takes 2 doses a couple times a week. Right after treatment he felt great! He did then develop some fatigue. He denies fevers, chills, night sweats and signs/symptoms of infection. No bleeding or abnormal bruising. 01/26/25: - Doing well - MRI rectum done last week at [facility] - C/o fatigue. - Bowel movements are good. 02/09/25: -review of [facility] MRI pelvis dated 01/20/25 shows improvement in rectal mass and lymph nodes -does get some cold sensitivity for a few days following treatment -jaw will hurt when he takes first bite of food and then is fine -mild constipation for a few days as well -no mouth sores,nausea, vomiting, fevers or chills 02/23/25: - Cycle 5 FOLFOX today - Doing well - No major complaints. - Bowel movements are good. 03/09/25: - Cycle 6 FOLFOX today - Doing well - C/o skin rash in the low back. Itching in night. 03/23/25: - Continues to have rash on low back. - Lotrisone helped but recurred. - Cycle 7 FOLFOX today - C/o fatigue. 04/05/25: - Cycle 8 chemo - Doing well - Skin rash is gone. - C/o fatigue. - Mild cold sensitivity. Current Outpatient Medications Medication Sig hydrOXYzine HCl (ATARAX) 10 mg tablet Take 1 tablet by mouth three times a day as needed for itching/rash. clotrimazole-betamethasone (LOTRISONE) cream Apply to affected area two times a day for 14 days. iv contrast (will be provided with radiology [...] administration guidelines link.(Patient not taking: Reported on 03/23/2025) enteric contrast (will be provided with radiology test) For CT CHESTABD/PEL W IVCON Routine order Administer, As Directed One Time Only, via Oral, Rectal, both Oral and Rectal, Enteric Tube, Stoma orIndwelling Catheter, Enteric Contrast as designated per enteric contrast guidelines polyethylene glycol 3350 (MIRALAX) 17 gram/dose powder Take 17 g by mouth as needed for constipation. Dissolve dose in 4 - 8 ounces of liquid and take as directed. No current facility-administered medications for this visit. ALLERGIES No Known Allergies No past medical history on file. PAST SURGICAL HISTORY Procedure Laterality Date TONSILLECTOMY & ADENOIDECTOMY <AGE 10 FAMILY HISTORY Problem Relation Age of Onset Breast Cancer Mother Lung Cancer Father Cancer Sister Social History Tobacco Use Smoking status: Every Day Current packs/day: 1.00 Average packs/day: 1 pack/day for 54.5 years (54.5 ttl pk-yrs) Types: Cigarettes Start date: 1970 Smokeless tobacco: Never Vaping Use Vaping status: Never Used Substance Use Topics Alcohol use: Yes Comment: very seldom Drug use: Not Currently REVIEW OF SYSTEMS General: No weight loss, malaise or fevers. No night sweats. HEENT: Negative for headaches, No changes in hearing or vision, no nose bleeds or other nasal problems. Respiratory: Negative for cough, wheezing and shortness of breath. Cardiovascular: Negative for chest pain, leg swelling and palpitations. GI: Negative for abdominal discomfort, blood in stools or black stools and change in bowel habits. See HPI. : Negative for dysuria, frequency and incontinence. Musculoskeletal: Negative for joint pain or swelling, back pain, and muscle pain. Skin: Negative for lesions, rash and itching. Hematology/Lymphology: Negative for prolonged bleeding, bruising easily, and swollen nodes. Neuro: Negative for numbness or tingling of hands/feet. No weakness. +some cold sensitivity PHYSICAL EXAMINATION: BP 125/77 Pulse 85 Temp 36.2 C (97.1 F) (Temporal) Resp 18 Wt 52.8 kg (116 lb 6.5 oz) SpO2 97% BMI 18.75 kg/m ECOG PERFORMANCE STATUS: 0- Fully active, able to carry on all pre-disease performance w/o restriction. General: Alert and oriented, no distress, pleasant and cooperative. Heart: Regular, normal S1 and S2, no murmurs, rubs, or gallops. Lungs: Clear to auscultation bilaterally. Abdomen: Benign. Extremities: Feet/ankles without edema, posterior tibial pulses full and symmetrical. SKIN : Rash resolved LABS: Glucose (mg/dL) Date Value 03/23/2025 98 Potassium (mmol/L) Date Value 03/23/2025 4.0 Sodium (mmol/L) Date Value 03/23/2025 138 Chloride (mmol/L) Date Value 03/23/2025 106 CO2 (mmol/L) Date Value 03/23/2025 23 Creatinine (mg/dL) Date Value 03/23/2025 0.61 BUN (mg/dL) Date Value 03/23/2025 7 Anion Gap (mmol/L) Date Value 03/23/2025 9 Calcium, Total (mg/dL) Date Value 03/23/2025 9.4 Protein, Total (g/dL) Date Value 03/23/2025 6.3 Albumin (g/dL) Date Value 03/23/2025 3.9 Bilirubin, Total (mg/dL) Date Value 03/23/2025 0.2 Alkaline Phosphatase (U/L) Date Value 03/23/2025 81 AST (U/L) Date Value 03/23/2025 36 ALT (U/L) Date Value 03/23/2025 28 WBC Date Value Ref Range Status 03/23/2025 4.97 3.70 - 11.00 k/uL Final RBC Date Value Ref Range Status 03/23/2025 3.57 (L) 4.20 - 6.00 m/uL Final Hemoglobin Date Value Ref Range Status 03/23/2025 12.3 (L) 13.0 - 17.0 g/dL Final Hematocrit Date Value Ref Range Status 03/23/2025 35.7 (L) 39.0 - 51.0 % Final MCV Date Value Ref Range Status 03/23/2025 100.0 80.0 - 100.0 fL Final MCH Date Value Ref Range Status 03/23/2025 34.5 (H) 26.0 - 34.0 pg Final MCHC Date Value Ref Range Status 03/23/2025 34.5 30.5 - 36.0 g/dL Final RDW-CV Date Value Ref Range Status 03/23/2025 14.4 11.5 - 15.0 % Final Platelet Count Date Value Ref Range Status 03/23/2025 94 (L) 150 - 400 k/uL Final Comment: Results checked and verified.No clot detected. MPV Date Value Ref Range Status 03/23/2025 9.6 9.0 - 12.7 fL Final Abs Neut Date Value Ref Range Status 03/23/2025 3.12 1.45 - 7.50 k/uL Final Lymphocytes % Date Value Ref Range Status 03/23/2025 9.3 % Final Abs Lymph Date Value Ref Range Status 03/23/2025 0.46 (L) 1.00 - 4.00 k/uL Final Monocytes % Date Value Ref Range Status 03/23/2025 23.9 % Final Abs Crosby Date Value Ref Range Status 03/23/2025 1.19 (H) <0.87 k/uL Final Abs Eosin Date Value Ref Range Status 03/23/2025 0.16 <0.46 k/uL Final Basophils % Date Value Ref Range Status 03/23/2025 0.4 % Final Abs Baso Date Value Ref Range Status 03/23/2025 <0.03 <0.11 k/uL Final PATH: IMAGING: CT chest [...] extra mesorectal lymph nodes: No. EMVI: Yes -MRI pelvis (01/20/25) -Single wall thickness of the rectal mass measures a maximum of 1.3 cm (3.2 cm previously). In coronal sequence, the mass measures approximately 4.1 x 3.4 cm (4.9 x 4.2 cm previously). There is micro lobulation and some spiculation surrounding the rectal mass extending into the ischial rectal fat. There is a small amount of fluid signal surrounding the periphery of the mass. There is a enlarged lymph node or mass residing at the S2 segment in the presacral space measuring 2.1 x 1.7 cm (3.1 x 2.6 cm previously). There is a smaller lymph node residing at the S1 level in the presacral space measuring 1.0 cm (1.3cm previously). ASSESSMENT AND PLAN: Bentley Gonzalez is a [...] of radiation - Started radiation on 11/08/24. Radiation to pelvis completed on 12/15/2024. He tolerated chemoradiation well. - Port placed 12/08/2024. - 12/29/2024 Started treatment with fluorouracil, leucovorin and oxaliplatin (FOLFOX) - Cycle 1 - Plan is for treatment every 14 days x 8 cycles - Targeted oncology panel did not show any evidence of actionable mutations. -MRI rectum 01/20/25 showed improvement in size of rectal mass and the enlarged lymph nodes in the S1 and S2 levels of the presacral space PLAN: 1. Rectal cancer (HCC) - ICD9: 154.1, ICD10: C20 - Proceed with cycle 8 FOLFOX today - Tolerating well so far without major toxicity. - Hold 5FU bolus today due to low platelets. - Scheduled for MRI rectum and CT scans - Mild thrombocytopenia secondary to chemo. Monitor for now. - Skin rash has resolved with Lotrisone. Continue Atarax PRN for itching. - Advised him to follow up with for a sigmoidoscopy to be done in May 2025 - All his questions answered in detail. - F/u in 4 weeks. Hilary Sánchez MD. Hematology/Oncology [facility]: I spent a total of 30 minutes on the date of the service which included preparing to see the patient, [id number] patient care, completing clinical documentation, performing a medically appropriate examination, counseling and educating the patient/family/caregiver, ordering medications, tests, or p rocedures, independently interpreting results (not separately reported), communicating results to the patient/family/caregiver, and care coordination (not separately reported). documented in this encounterOhio[facility]07-01-2025 NoteMart[facility]07-01-2025 NoteHNO ID: [id number] Author: ERIN MCLAUGHLIN RN Service: ? Author Type: Registered Nurse Type: Progress Notes Filed: 04/05/2025 12:41 Note Text: Hold 5FU bolus today per AV. Erin Mclaughlin RNMartins Ferry Hospital07-01-2025 History of Present illness Narrative* Erin Mclaughlin RN - 04/05/2025 9:26 AM EDT Hold 5FU bolus today per AV. Erin Mclaughlin RN documented in this encounterOhiohealth Hardin [facility]07-01-2025 Instructions* Patient Instructions* Hilary Sánchez MD - 04/05/2025 9:19 AM EDT Last chemo treatment today F/u with for sigmoidoscopy Do the scans as scheduled F/u in 4 weeks documented in this encounterOhiohealth [facility]in [facility]06-20-2025 Telephone encounter Note * Telephone Encounter - Maya Baptiste RN - 03/25/2025 3:20 PM EDT Please sign pended Cre for upcoming CT-pt on nephrotoxic chemo Thank You! Maya Baptiste RN [facility]06-20-2025 Miscellaneous Notes* Telephone Encounter - Maya Baptiste RN - 03/25/2025 3:20 PM EDT Please sign pended Cre for upcoming CT-pt on nephrotoxic chemo Thank You! Maya Baptiste, RN documented in this encounterOhiohealth Hardin [facility]06-18-2025 Note* Addendum Note - Hilary Sánchez MD - 03/23/2025 9:52 AM EDTAddended by: HILARY SÁNCHEZ on: 03/23/2025 09:52 AM Modules accepted: Orders [facility]06-18-2025 Miscellaneous Notes* Addendum Note - Hilary Sánchez MD - 03/23/2025 9:52 AM EDTAddended by: HILARY SÁNCHEZ on: 03/23/2025 09:52 AM Modules accepted: Orders documented in this encounterOhiohealth [facility]in [facility]06-18-2025 NoteMart[facility] F[facility]06-18-2025 History of Present illness Narrative* Sherrie Monson MD - 03/23/2025 9:12 AM EDT Radiation Oncology - Follow Up Note PATIENT NAME: Bentley Gonzalez PATIENT DIAGNOSIS: Rectal cancer, adenocarcinoma, locally advanced RADIATION SUMMARY: DATES OF TREATMENT: 11-08-2024 to 12-15-2024 AREA TREATED: Pelvis DELIVERED DOSE: Area: Pelvis with daily CBCT Imaging 4500cGy in 25 fractions, 3 Rapid Arc VMAT [place],10X DELIVERED DOSE: Area: Pelvis Rectal Boost 540cGy in 3 fractions, 2 Rapid Arc VMAT [place], 10X TOTAL: 5040cGy in 28 fractions ELAPSED TIME: 32 days. INTERVAL HISTORY: Doing well. Patient states his bowel function has returned to normal. Denies painor bleeding. Denies any bladder related changes. Continues systemic therapy, has developed rash mostly on his back but no other issues. MRI pelvis 01/20/2025: IMPRESSION: 1. Circumferential rectal mass/malignancy. There has been moderate reduction in size with comparative measurements given above. 2. Nearby presacral metastatic deposits. These have diminished moderately in size as well with comparative measurements given above. ALLERGIES No Known Allergies MEDICATIONS: hydrOXYzine HCl (ATARAX) 10 mg tablet Take 1 tablet by mouth three times a day as needed for itching/rash. clotrimazole-betamethasone (LOTRISONE) cream Apply to affected area two times a day for 14 days. iv contrast (will be provided with radiology [...] Contrast as designated per enteric contrast guidelines polyethylene glycol 3350 (MIRALAX) 17 gram/dose powder Take 17 g by mouth as needed for constipation. Dissolve dose in 4 - 8 ounces of liquid and take as directed. REVIEW OF SYSTEMS: GENERAL: Negative for weight loss, fevers, chills, or night sweats. HEENT: Negative for sudden vision or hearing changes. NECK: Negative for masses in the neck. RESPIRATORY: Negative for cough or shortness of breath. CARDIAC: Negative for chest pain, palpitations, murmurs, or syncopal episodes. GI: Negative for nausea, vomiting, diarrhea, constipation, blood per rectum, or melena. : Negative for dysuria, hematuria, urgency, frequency or incontinence. MUSCULOSKELETAL: Negative for limitations in movement, pain, or swelling. NEURO: Negative for dizziness, headache, weakness or numbness. HEMATOLOGIC: Negative for bleeding or easy bruising. SKIN: Mild posterior pelvic skin irritation PHYSICAL EXAM: 03/23/25 0913 BP: 125/77 BP Position: Sitting Pulse: 85 Resp: 18 Temp: 36.2 C (97.1 F) TempSrc: Temporal SpO2: 97% Weight: 52.6 kg (116 lb) KPS: 100 General Appearance: Alert and oriented. No acute distress. Neck: Normal ROM. No palpable cervical or supraclavicular adenopathy. Abdomen: Soft. Nontender. Nondistended. Skin: Follicular type rash, diffuse, mostly on back Lymphatics: No palpable lymphadenopathy. Rectal: Deferred ASSESSMENT AND PLAN: Rectal cancer, adenocarcinoma, locally advanced Overall doing well with responding disease. Continue systemic chemotherapy. No further role for radiation. No significant postradiation issues. I will plan to see patient back on a as needed basis. Signed by: Sherrie Monson MD cc: Rashaun Torres MD [address] [place] [address] documented in this encounterOhiohealth Hardin [facility] Hospital06-18-2025 Instructions* Patient Instructions* Hilary Sánchez MD - 03/23/2025 9:06 AM EDT Treatment today and in [address] scan and MRI scan to be done in 5 weeks F/u in 2 weeks documented in this encounterOhiohealth Hardin [facility] Hospital06-18-2025 History of Present illness Narrative* Hilary Sánchez MD - 03/23/2025 9:00 AM EDT Images from the original note were not included. PATIENT NAME: Bentley Gonzalez [facility] NO.: [id number] ATTENDING PHYSICIAN: Hilary Sánchez MD DATE OF SERVICE: 03/23/25 Some of the elements of this note have been copied from my previous progress note dated 03/09/25. Allthe information has been reviewed carefully. CHIEF COMPLAINT: [...] now has large volume stool but still gomultiple times a day. His hematochezia is also [...] 15. - Smokes 1pk for 3 days. 12/06/2024: -Continues to do well with xeloda 1300 mg bid with radiation -denies n/v/d/c/bleeding/mucositis or HFS symptoms -Scheduled with Dr. Singh for port placement 12/08 -finishing xrt on 12/1512/29/2024: Bentley Gonzalez returns for scheduled to begin treatment with fluorouracil, leucovorin and oxaliplatin. He received radiation to the pelvis 11/08/2024 through 12/15/2024 concurrent with Xeloda. He tolerated concurrent chemoradiation well. He has an area of skin dryness at the radiation area which he isapplying Aquaphor. He had a port placed on 12/08/2024. He denies bleeding and abnormal bruising. No rectal bleeding. He is moving his bowels extremely well. He is having a bowel movement in the morningand the evening. His stools have improved in diameter and he is having sufficient stool output. He denies any diarrhea. He states that his appetite is great. He is eating like he used to. No mouth sor es. No hand-foot syndrome. He denies fevers, chills, night sweats and signs/symptoms of infection. Updated Visit, January 06, 2025: Bentley Gonzalez returns for follow up and blood work. He received cycle 1 FOLFOX on 12/29/2024 and tolerated it well. He had some constipation after treatment but resolved by Friday. He denies any diarrhea. He is moving his bowels well. He is eating okay and his appetite is fair. He denies mouth sores. No nausea, vomiting or abdominal pain. He had no cold sensitivity no numbness or tingling. He hasa persistent mild rash for which he takes Atarax for itching. He typically takes 2 doses a couple times a week. Right after treatment he felt great! He did then develop some fatigue. He denies fevers, chills, night sweats and signs/symptoms of infection. No bleeding or abnormal bruising. 01/26/25: - Doing well - MRI rectum done last week at [facility] - C/o fatigue. - Bowel movements are good. 02/09/25: -review of [facility] MRI pelvis dated 01/20/25 shows improvement in rectal mass and lymph nodes -does get some cold sensitivity for a few days following treatment -jaw will hurt when he takes first bite of food and then is fine -mild constipation for a few days as well -no mouth sores,nausea, vomiting, fevers or chills 02/23/25: - Cycle 5 FOLFOX today - Doing well - No major complaints. - Bowel movements are good. 03/09/25: - Cycle 6 FOLFOX today - Doing well - C/o skin rash in the low back. Itching in night. 03/23/25: - Continues to have rash on low back. - Lotrisone helped but recurred. - Cycle 7 FOLFOX today - C/o fatigue. Current Outpatient Medications Medication Sig polyethylene glycol 3350 (MIRALAX) 17 gram/dose powder Take 17 g by mouth as needed for constipation. Dissolve dose in 4 - 8 ounces of liquid and take as directed. hydrOXYzine HCl (ATARAX) 10 mg tablet Take 10 mg by mouth as needed. No current facility-administered medications for this visit. ALLERGIES No Known Allergies History reviewed. No pertinent past medical history. PAST SURGICAL HISTORY Procedure Laterality Date TONSILLECTOMY & ADENOIDECTOMY <AGE 10 FAMILY HISTORY Problem Relation Age of Onset Breast Cancer Mother Lung Cancer Father Cancer Sister Social History Tobacco Use Smoking status: Every Day Current packs/day: 1.00 Average packs/day: 1 pack/day for 54.5 years (54.5 ttl pk-yrs) Types: Cigarettes Start date: 1970 Smokeless tobacco: Never Vaping Use Vaping status: Never Used Substance Use Topics Alcohol use: Yes Comment: very seldom Drug use: Not Currently REVIEW OF SYSTEMS General: No weight loss, malaise or fevers. No night sweats. HEENT: Negative for headaches, No changes in hearing or vision, no nose bleeds or other nasal problems. Respiratory: Negative for cough, wheezing and shortness of breath. Cardiovascular: Negative for chest pain, leg swelling and palpitations. GI: Negative for abdominal discomfort, blood in stools or black stools and change in bowel habits. See HPI. : Negative for dysuria, frequency and incontinence. Musculoskeletal: Negative for joint pain or swelling, back pain, and muscle pain. Skin: Negative for lesions, rash and itching. Hematology/Lymphology: Negative for prolonged bleeding, bruising easily, and swollen nodes. Neuro: Negative for numbness or tingling of hands/feet. No weakness. +some cold sensitivity PHYSICAL EXAMINATION: BP 125/77 Pulse 85 Temp 36.2 C (97.1 F) (Temporal) Resp 18 Wt 52.8 kg (116 lb 6.5 oz) SpO2 97% BMI 18.75 kg/m ECOG PERFORMANCE STATUS: 0- Fully active, able to carry on all pre-disease performance w/o restriction. General: Alert and oriented, no distress, pleasant and cooperative. Heart: Regular, normal S1 and S2, no murmurs, rubs, or gallops. Lungs: Clear to auscultation bilaterally. Abdomen: Benign. Extremities: Feet/ankles without edema, posterior tibial pulses full and symmetrical. SKIN : Rash noted in the low back LABS: Glucose (mg/dL) Date Value 03/23/2025 98 Potassium (mmol/L) Date Value 03/23/2025 4.0 Sodium (mmol/L) Date Value 03/23/2025 138 Chloride (mmol/L) Date Value 03/23/2025 106 CO2 (mmol/L) Date Value 03/23/2025 23 Creatinine (mg/dL) Date Value 03/23/2025 0.61 BUN (mg/dL) Date Value 03/23/2025 7 Anion Gap (mmol/L) Date Value 03/23/2025 9 Calcium, Total (mg/dL) Date Value 03/23/2025 9.4 Protein, Total (g/dL) Date Value 03/23/2025 6.3 Albumin (g/dL) Date Value 03/23/2025 3.9 Bilirubin, Total (mg/dL) Date Value 03/23/2025 0.2 Alkaline Phosphatase (U/L) Date Value 03/23/2025 81 AST (U/L) Date Value 03/23/2025 36 ALT (U/L) Date Value 03/23/2025 28 WBC Date Value Ref Range Status 03/09/2025 4.80 3.70 - 11.00 k/uL Final RBC Date Value Ref Range Status 03/09/2025 3.73 (L) 4.20 - 6.00 m/uL Final Hemoglobin Date Value Ref Range Status 03/09/2025 12.6 (L) 13.0 - 17.0 g/dL Final Hematocrit Date Value Ref Range Status 03/09/2025 37.4 (L) 39.0 - 51.0 % Final MCV Date Value Ref Range Status 03/09/2025 100.3 (H) 80.0 - 100.0 fL Final MCH Date Value Ref Range Status 03/09/2025 33.8 26.0 - 34.0 pg Final MCHC Date Value Ref Range Status 03/09/2025 33.7 30.5 - 36.0 g/dL Final RDW-CV Date Value Ref Range Status 03/09/2025 14.8 11.5 - 15.0 % Final Platelet Count Date Value Ref Range Status 03/09/2025 94 (L) 150 - 400 k/uL Final Comment: No clot detected. MPV Date Value Ref Range Status 03/09/2025 9.1 9.0 - 12.7 fL Final Abs Neut Date Value Ref Range Status 03/09/2025 3.05 1.45 - 7.50 k/uL Final Lymphocytes % Date Value Ref Range Status 03/09/2025 9.0 % Final Abs Lymph Date Value Ref Range Status 03/09/2025 0.43 (L) 1.00 - 4.00 k/uL Final Monocytes % Date Value Ref Range Status 03/09/2025 22.9 % Final Abs Crosby Date Value Ref Range Status 03/09/2025 1.10 (H) <0.87 k/uL Final Abs Eosin Date Value Ref Range Status 03/09/2025 0.18 <0.46 k/uL Final Basophils % Date Value Ref Range Status 03/09/2025 0.4 % Final Abs Baso Date Value Ref Range Status 03/09/2025 <0.03 <0.11 k/uL Final PATH: IMAGING: CT chest [...] extra mesorectal lymph nodes: No. EMVI: Yes -MRI pelvis (01/20/25) -Single wall thickness of the rectal mass measures a maximum of 1.3 cm (3.2 cm previously). In coronal sequence, the mass measures approximately 4.1 x 3.4 cm (4.9 x 4.2 cm previously). There is micro lobulation and some spiculation surrounding the rectal mass extending into the ischial rectal fat. There is a small amount of fluid signal surrounding the periphery of the mass. There is a enlarged lymph node or mass residing at the S2 segment in the presacral space measuring 2.1 x 1.7 cm (3.1 x 2.6 cm previously). There is a smaller lymph node residing at the S1 level in the presacral space measuring 1.0 cm (1.3cm previously). ASSESSMENT AND PLAN: Bentley Gonzalez is a [...] of radiation - Started radiation on 11/08/24. Radiation to pelvis completed on 12/15/2024. He tolerated chemoradiation well. - Port placed 12/08/2024. - 12/29/2024 Started treatment with fluorouracil, leucovorin and oxaliplatin (FOLFOX) - Cycle 1 - Plan is for treatment every 14 days x 8 cycles - Targeted oncology panel did not show any evidence of actionable mutations. -MRI rectum 01/20/25 showed improvement in size of rectal mass and the enlarged lymph nodes in the S1 and S2 levels of the presacral space PLAN: 1. Rectal cancer (HCC) - ICD9: 154.1, ICD10: C20 - Proceed with cycle 7 FOLFOX today - Tolerating well so far without major toxicity. - Ordered MRI rectum and CT scans to be done after next treatment. - Mild thrombocytopenia secondary to chemo. Monitor for now. - Lotrisone prescription sent to pharmacy for skin rash. Continue Atarax PRN for itching. - All his questions answered in detail. - F/u in 2 weeks. Hilary Sánchez MD. Hematology/Oncology [facility]: I spent a total of 30 minutes on the date of the service which included preparing to see the patient, [id number] patient care, completing clinical documentation, performing a medically appropriate examination, counseling and educating the patient/family/caregiver, ordering medications, tests, or p rocedures, independently interpreting results (not separately reported), communicating results to the patient/family/caregiver, and care coordination (not separately reported). documented in this encounterOhiohealth [facility]in [facility]06-18-2025 NoteMartins Ferry Hospital2025 Evaluation note* Diagnosis Onset Date Resolution Status Admit Date History of insertion of tunneled central venous catheter (CVC) with port acuteJune 2024 11:30am [facility] Work Phone: 1(382) 357-503006-17-2025 Telephone encounter Note* Telephone Encounter - Marcelle Hussein - 03/22/2025 12:06 PM EDT Patient was agreeable and the appointment has been moved to tomorrow. GABINO [place] [facility]2025 Miscellaneous Notes* Telephone Encounter - Marcelle Hussein - 03/22/2025 12:06 PM EDT Patient was agreeable and the appointment has been moved to tomorrow. GABINO [place] * Telephone Encounter - Alison Louise RN - 03/22/2025 11:54 AM EDT Please contact pt and see if he would like to see Dr Monson tomorrow (03/23) right after he sees Eric (and prior to chemo) instead of coming back 03/[address] Monson. If so, please move f/u toGPE schedule 03/30 and notify nursing. Thanks! Alison Louise RN documented in this encounterOhiohealth [facility]in [facility] Hospital2025 Telephone encounter Note * Telephone Encounter - Alison Louise RN - 03/22/2025 11:54 AM EDT Please contact pt and see if he would like to see Dr Monson tomorrow (03/23) right after he sees Eric (and prior to chemo) instead of coming back 03/[address] Monson. If so, please move f/u toGPE schedule 03/30 and notify nursing. Thanks! Alison Louise RN [facility]06-04-2025 Instructions* Patient Instructions* Hilary Sánchez MD - 03/09/2025 9:04 AM EDT Treatment today and in 2 weeks F/u in 2 weeks documented in this encounterOhiohealth Hardin [facility] Hospital06-04-2025 History of Present illness Narrative* Hilary Sánchez MD - 03/09/2025 9:00 AM EDT Images from the original note were not included. PATIENT NAME: Bentley Gonzalez [facility] NO.: [id number] ATTENDING PHYSICIAN: Hilary Sánchez MD DATE OF SERVICE: 03/09/25 Some of the elements of this note have been copied from my previous progress note dated 02/23/25. All the information has been reviewed carefully. [...] now has large volume stool but still gomultiple times a day. His hematochezia is also [...] 15. - Smokes 1pk for 3 days. 12/06/2024: -Continues to do well with xeloda 1300 mg bid with radiation -denies n/v/d/c/bleeding/mucositis or HFS symptoms -Scheduled with Dr. Singh for port placement 12/08 -finishing xrt on 12/1512/29/2024: Bentley Gonzalez returns for scheduled to begin treatment with fluorouracil, leucovorin and oxaliplatin. He received radiation to the pelvis 11/08/2024 through 12/15/2024 concurrent with Xeloda. He tolerated concurrent chemoradiation well. He has an area of skin dryness at the radiation area which he isapplying Aquaphor. He had a port placed on 12/08/2024. He denies bleeding and abnormal bruising. No rectal bleeding. He is moving his bowels extremely well. He is having a bowel movement in the morningand the evening. His stools have improved in diameter and he is having sufficient stool output. He denies any diarrhea. He states that his appetite is great. He is eating like he used to. No mouth sor es. No hand-foot syndrome. He denies fevers, chills, night sweats and signs/symptoms of infection. Updated Visit, January 06, 2025: Bentley Gonzalez returns for follow up and blood work. He received cycle 1 FOLFOX on 12/29/2024 and tolerated it well. He had some constipation after treatment but resolved by Friday. He denies any diarrhea. He is moving his bowels well. He is eating okay and his appetite is fair. He denies mouth sores. No nausea, vomiting or abdominal pain. He had no cold sensitivity no numbness or tingling. He hasa persistent mild rash for which he takes Atarax for itching. He typically takes 2 doses a couple times a week. Right after treatment he felt great! He did then develop some fatigue. He denies fevers, chills, night sweats and signs/symptoms of infection. No bleeding or abnormal bruising. 01/26/25: - Doing well - MRI rectum done last week at [facility] - C/o fatigue. - Bowel movements are good. 02/09/25: -review of [facility] MRI pelvis dated 01/20/25 shows improvement in rectal mass and lymph nodes -does get some cold sensitivity for a few days following treatment -jaw will hurt when he takes first bite of food and then is fine -mild constipation for a few days as well -no mouth sores,nausea, vomiting, fevers or chills 02/23/25: - Cycle 5 FOLFOX today - Doing well - No major complaints. - Bowel movements are good. 03/09/25: - Cycle 6 FOLFOX today - Doing well - C/o skin rash in the low back. Itching in night. Current Outpatient Medications Medication Sig polyethylene glycol 3350 (MIRALAX) 17 gram/dose powder Take 17 g by mouth as needed for constipation. Dissolve dose in 4 - 8 ounces of liquid and take as directed. hydrOXYzine HCl (ATARAX) 10 mg tablet Take 10 mg by mouth as needed. No current facility-administered medications for this visit. ALLERGIES No Known Allergies No past medical history on file. PAST SURGICAL HISTORY Procedure Laterality Date TONSILLECTOMY & ADENOIDECTOMY <AGE 10 FAMILY HISTORY Problem Relation Age of Onset Breast Cancer Mother Lung Cancer Father Cancer Sister Social History Tobacco Use Smoking status: Every Day Current packs/day: 1.00 Average packs/day: 1 pack/day for 54.4 years (54.4 ttl pk-yrs) Types: Cigarettes Start date: 1970 Smokeless tobacco: Never Vaping Use Vaping status: Never Used Substance Use Topics Alcohol use: Yes Comment: very seldom Drug use: Not Currently REVIEW OF SYSTEMS General: No weight loss, malaise or fevers. No night sweats. HEENT: Negative for headaches, No changes in hearing or vision, no nose bleeds or other nasal problems. Respiratory: Negative for cough, wheezing and shortness of breath. Cardiovascular: Negative for chest pain, leg swelling and palpitations. GI: Negative for abdominal discomfort, blood in stools or black stools and change in bowel habits. See HPI. : Negative for dysuria, frequency and incontinence. Musculoskeletal: Negative for joint pain or swelling, back pain, and muscle pain. Skin: Negative for lesions, rash and itching. Hematology/Lymphology: Negative for prolonged bleeding, bruising easily, and swollen nodes. Neuro: Negative for numbness or tingling of hands/feet. No weakness. +some cold sensitivity PHYSICAL EXAMINATION: There were no vitals taken for this visit. ECOG PERFORMANCE STATUS: 0- Fully active, able to carry on all pre-disease performance w/o restriction. General: Alert and oriented, no distress, pleasant and cooperative. Heart: Regular, normal S1 and S2, no murmurs, rubs, or gallops. Lungs: Clear to auscultation bilaterally. Abdomen: Benign. Extremities: Feet/ankles without edema, posterior tibial pulses full and symmetrical. SKIN : Rash noted in the low back LABS: Glucose (mg/dL) Date Value 02/23/2025 115 Potassium (mmol/L) Date Value 02/23/2025 3.9 Sodium (mmol/L) Date Value 02/23/2025 138 Chloride (mmol/L) Date Value 02/23/2025 104 CO2 (mmol/L) Date Value 02/23/2025 23 Creatinine (mg/dL) Date Value 02/23/2025 0.70 BUN (mg/dL) Date Value 02/23/2025 11 Anion Gap (mmol/L) Date Value 02/23/2025 11 Calcium, Total (mg/dL) Date Value 02/23/2025 9.1 Protein, Total (g/dL) Date Value 02/23/2025 6.7 Albumin (g/dL) Date Value 02/23/2025 4.1 Bilirubin, Total (mg/dL) Date Value 02/23/2025 0.4 Alkaline Phosphatase (U/L) Date Value 02/23/2025 74 AST (U/L) Date Value 02/23/2025 42 ALT (U/L) Date Value 02/23/2025 42 WBC Date Value Ref Range Status 02/23/2025 5.04 3.70 - 11.00 k/uL Final RBC Date Value Ref Range Status 02/23/2025 3.64 (L) 4.20 - 6.00 m/uL Final Hemoglobin Date Value Ref Range Status 02/23/2025 12.4 (L) 13.0 - 17.0 g/dL Final Hematocrit Date Value Ref Range Status 02/23/2025 36.0 (L) 39.0 - 51.0 % Final MCV Date Value Ref Range Status 02/23/2025 98.9 80.0 - 100.0 fL Final MCH Date Value Ref Range Status 02/23/2025 34.1 (H) 26.0 - 34.0 pg Final MCHC Date Value Ref Range Status 02/23/2025 34.4 30.5 - 36.0 g/dL Final RDW-CV Date Value Ref Range Status 02/23/2025 15.4 (H) 11.5 - 15.0 % Final Platelet Count Date Value Ref Range Status 02/23/2025 91 (L) 150 - 400 k/uL Final Comment: No clot detected. MPV Date Value Ref Range Status 02/23/2025 9.3 9.0 - 12.7 fL Final Abs Neut Date Value Ref Range Status 02/23/2025 3.59 1.45 - 7.50 k/uL Final Lymphocytes % Date Value Ref Range Status 02/23/2025 8.5 % Final Abs Lymph Date Value Ref Range Status 02/23/2025 0.43 (L) 1.00 - 4.00 k/uL Final Monocytes % Date Value Ref Range Status 02/23/2025 17.5 % Final Abs Crosby Date Value Ref Range Status 02/23/2025 0.88 (H) <0.87 k/uL Final Abs Eosin Date Value Ref Range Status 02/23/2025 0.12 <0.46 k/uL Final Basophils % Date Value Ref Range Status 02/23/2025 0.2 % Final Abs Baso Date Value Ref Range Status 02/23/2025 <0.03 <0.11 k/uL Final PATH: IMAGING: CT chest [...] extra mesorectal lymph nodes: No. EMVI: Yes -MRI pelvis (01/20/25) -Single wall thickness of the rectal mass measures a maximum of 1.3 cm (3.2 cm previously). In coronal sequence, the mass measures approximately 4.1 x 3.4 cm (4.9 x 4.2 cm previously). There is micro lobulation and some spiculation surrounding the rectal mass extending into the ischial rectal fat. There is a small amount of fluid signal surrounding the periphery of the mass. There is a enlarged lymph node or mass residing at the S2 segment in the presacral space measuring 2.1 x 1.7 cm (3.1 x 2.6 cm previously). There is a smaller lymph node residing at the S1 level in the presacral space measuring 1.0 cm (1.3cm previously). ASSESSMENT AND PLAN: Bentley Gonzalez is a [...] of radiation - Started radiation on 11/08/24. Radiation to pelvis completed on 12/15/2024. He tolerated chemoradiation well. - Port placed 12/08/2024. - 12/29/2024 Started treatment with fluorouracil, leucovorin and oxaliplatin (FOLFOX) - Cycle 1 - Plan is for treatment every 14 days x 8 cycles - Targeted oncology panel did not show any evidence of actionable mutations. -MRI rectum 01/20/25 showed improvement in size of rectal mass and the enlarged lymph nodes in the S1 and S2 levels of the presacral space PLAN: - Proceed with cycle 6 FOLFOX today - Tolerating well so far without major toxicity. - Will repeat MRI rectum and CT scans after 8 cycles. - Mild thrombocytopenia secondary to chemo. Monitor for now. - Lotrisone prescription sent to pharmacy for skin rash. Continue benadryl PRN for itching. - All his questions answered in detail. - F/u in 2 weeks. Hilary Sánchez MD. Hematology/Oncology [facility] CC: I spent a total of 30 minutes on the date of the service which included preparing to see the patient, [id number] patient care, completing clinical documentation, performing a medically appropriate examination, counseling and educating the patient/family/caregiver, ordering medications, tests, or p rocedures, independently interpreting results (not separately reported), communicating results to the patient/family/caregiver, and care coordination (not separately reported). * Risa Govea MA - 03/09/2025 8:39 AM EDT Patient still has rash on back that radiates to the front, will wake him at night due to itch. Risa Govea MA documented in this encounterOhio[facility]06-04-2025 [facility]25 [facility] History of Present illness Narrative* Cong Up PA-C - 02/09/2025 8:22 AM EDT Images from the original note were not included. PATIENT NAME: Bentley Gonzalez [facility] NO.: [id number] ATTENDING PHYSICIAN: Hilary Sánchez MD DATE OF SERVICE: 02/09/2025 Some of the elements of this note have been copied from Dr. Sánchez's previous progress note dated 01/26/25. All the information has been reviewed carefully. [...] now has large volume stool but still gomultiple times a day. His hematochezia is also [...] 15. - Smokes 1pk for 3 days. 12/06/2024: -Continues to do well with xeloda 1300 mg bid with radiation -denies n/v/d/c/bleeding/mucositis or HFS symptoms -Scheduled with Dr. Singh for port placement 12/08 -finishing xrt on 12/1512/29/2024: Bentley Gonzalez returns for scheduled to begin treatment with fluorouracil, leucovorin and oxaliplatin. He received radiation to the pelvis 11/08/2024 through 12/15/2024 concurrent with Xeloda. He tolerated concurrent chemoradiation well. He has an area of skin dryness at the radiation area which he isapplying Aquaphor. He had a port placed on 12/08/2024. He denies bleeding and abnormal bruising. No rectal bleeding. He is moving his bowels extremely well. He is having a bowel movement in the morningand the evening. His stools have improved in diameter and he is having sufficient stool output. He denies any diarrhea. He states that his appetite is great. He is eating like he used to. No mouth sor es. No hand-foot syndrome. He denies fevers, chills, night sweats and signs/symptoms of infection. Updated Visit, January 06, 2025: Bentley Gonzalez returns for follow up and blood work. He received cycle 1 FOLFOX on 12/29/2024 and tolerated it well. He had some constipation after treatment but resolved by Friday. He denies any diarrhea. He is moving his bowels well. He is eating okay and his appetite is fair. He denies mouth sores. No nausea, vomiting or abdominal pain. He had no cold sensitivity no numbness or tingling. He hasa persistent mild rash for which he takes Atarax for itching. He typically takes 2 doses a couple times a week. Right after treatment he felt great! He did then develop some fatigue. He denies fevers, chills, night sweats and signs/symptoms of infection. No bleeding or abnormal bruising. 01/26/25: - Doing well - MRI rectum done last week at [facility] - C/o fatigue. - Bowel movements are good. 02/09/25: -review of [facility] MRI pelvis dated 01/20/25 shows improvement in rectal mass and lymph nodes -does get some cold sensitivity for a few days following treatment -jaw will hurt when he takes first bite of food and then is fine -mild constipation for a few days as well -no mouth sores,nausea, vomiting, fevers or chills Current Outpatient Medications Medication Sig hydrOXYzine HCl (ATARAX) 10 mg tablet Take 10 mg by mouth as needed. No current facility-administered medications for this visit. ALLERGIES No Known Allergies No past medical history on file. PAST SURGICAL HISTORY Procedure Laterality Date TONSILLECTOMY & ADENOIDECTOMY <AGE 10 FAMILY HISTORY Problem Relation Age of Onset Breast Cancer Mother Lung Cancer Father Cancer Sister Social History Tobacco Use Smoking status: Every Day Current packs/day: 1.00 Average packs/day: 1 pack/day for 54.3 years (54.3 ttl pk-yrs) Types: Cigarettes Start date: 1970 Smokeless tobacco: Never Vaping Use Vaping status: Never Used Substance Use Topics Alcohol use: Yes Comment: very seldom Drug use: Not Currently REVIEW OF SYSTEMS General: No weight loss, malaise or fevers. No night sweats. HEENT: Negative for headaches, No changes in hearing or vision, no nose bleeds or other nasal problems. Respiratory: Negative for cough, wheezing and shortness of breath. Cardiovascular: Negative for chest pain, leg swelling and palpitations. GI: Negative for abdominal discomfort, blood in stools or black stools and change in bowel habits. See HPI. : Negative for dysuria, frequency and incontinence. Musculoskeletal: Negative for joint pain or swelling, back pain, and muscle pain. Skin: Negative for lesions, rash and itching. Hematology/Lymphology: Negative for prolonged bleeding, bruising easily, and swollen nodes. Neuro: Negative for numbness or tingling of hands/feet. No weakness. +some cold sensitivity PHYSICAL EXAMINATION: BP 114/70 Pulse 83 Temp 36.3 C (97.4 F) (Temporal) Resp 16 Ht 167.8 cm (5' 6.06 ) Wt 52.8kg (116 lb 6.5 oz) SpO2 98% BMI 18.75 kg/m ECOG PERFORMANCE STATUS: 0- Fully active, able to carry on all pre-disease performance w/o restriction. General: Alert and oriented, no distress, pleasant and cooperative. Heart: Regular, normal S1 and S2, no murmurs, rubs, or gallops. Lungs: Clear to auscultation bilaterally. Abdomen: Benign. Extremities: Feet/ankles without edema, posterior tibial pulses full and symmetrical. LABS: Glucose (mg/dL) Date Value 02/09/2025 104 Potassium (mmol/L) Date Value 02/09/2025 4.1 Sodium (mmol/L) Date Value 02/09/2025 140 Chloride (mmol/L) Date Value 02/09/2025 108 CO2 (mmol/L) Date Value 02/09/2025 22 Creatinine (mg/dL) Date Value 02/09/2025 0.71 BUN (mg/dL) Date Value 02/09/2025 13 Anion Gap (mmol/L) Date Value 02/09/2025 10 Calcium, Total (mg/dL) Date Value 02/09/2025 9.1 Protein, Total (g/dL) Date Value 02/09/2025 6.4 Albumin (g/dL) Date Value 02/09/2025 4.1 Bilirubin, Total (mg/dL) Date Value 02/09/2025 0.3 Alkaline Phosphatase (U/L) Date Value 02/09/2025 75 AST (U/L) Date Value 02/09/2025 29 ALT (U/L) Date Value 02/09/2025 23 WBC Date Value Ref Range Status 02/09/2025 5.38 3.70 - 11.00 k/uL Final RBC Date Value Ref Range Status 02/09/2025 3.71 (L) 4.20 - 6.00 m/uL Final Hemoglobin Date Value Ref Range Status 02/09/2025 12.5 (L) 13.0 - 17.0 g/dL Final Hematocrit Date Value Ref Range Status 02/09/2025 36.3 (L) 39.0 - 51.0 % Final MCV Date Value Ref Range Status 02/09/2025 97.8 80.0 - 100.0 fL Final MCH Date Value Ref Range Status 02/09/2025 33.7 26.0 - 34.0 pg Final MCHC Date Value Ref Range Status 02/09/2025 34.4 30.5 - 36.0 g/dL Final RDW-CV Date Value Ref Range Status 02/09/2025 15.9 (H) 11.5 - 15.0 % Final Platelet Count Date Value Ref Range Status 02/09/2025 120 (L) 150 - 400 k/uL Final MPV Date Value Ref Range Status 02/09/2025 9.1 9.0 - 12.7 fL Final Abs Neut Date Value Ref Range Status 02/09/2025 3.72 1.45 - 7.50 k/uL Final Lymphocytes % Date Value Ref Range Status 02/09/2025 9.9 % Final Abs Lymph Date Value Ref Range Status 02/09/2025 0.53 (L) 1.00 - 4.00 k/uL Final Monocytes % Date Value Ref Range Status 02/09/2025 16.4 % Final Abs Crosby Date Value Ref Range Status 02/09/2025 0.88 (H) <0.87 k/uL Final Abs Eosin Date Value Ref Range Status 02/09/2025 0.21 <0.46 k/uL Final Basophils % Date Value Ref Range Status 02/09/2025 0.4 % Final Abs Baso Date Value Ref Range Status 02/09/2025 <0.03 <0.11 k/uL Final PATH: IMAGING: CT chest [...] extra mesorectal lymph nodes: No. EMVI: Yes -MRI pelvis (01/20/25) -Single wall thickness of the rectal mass measures a maximum of 1.3 cm (3.2 cm previously). In coronal sequence, the mass measures approximately 4.1 x 3.4 cm (4.9 x 4.2 cm previously). There is micro lobulation and some spiculation surrounding the rectal mass extending into the ischial rectal fat. There is a small amount of fluid signal surrounding the periphery of the mass. There is a enlarged lymph node or mass residing at the S2 segment in the presacral space measuring 2.1 x 1.7 cm (3.1 x 2.6 cm previously). There is a smaller lymph node residing at the S1 level in the presacral space measuring 1.0 cm (1.3cm previously). ASSESSMENT AND PLAN: Bentley Gonzalez is a [...] of radiation - Started radiation on 11/08/24. Radiation to pelvis completed on 12/15/2024. He tolerated chemoradiation well. - Port placed 12/08/2024. - 12/29/2024 Started treatment with fluorouracil, leucovorin and oxaliplatin (FOLFOX) - Cycle 1 - Plan is for treatment every 14 days x 8 cycles - Targeted oncology panel did not show any evidence of actionable mutations. -MRI rectum 01/20/25 showed improvement in size of rectal mass and the enlarged lymph nodes in the S1 and S2 levels of the presacral space PLAN: - Labs stable today and tolerating treatment well without major toxicity -reviewed MRI findings and plan to repeat following IV chemotherapy -Proceed with C4 of FOLFOX today -Return in 2 weeks for next cycle Cong Up PA-C Hematology/Oncology [facility]: I spent a total of 35 minutes on the date of the service which included preparing to see the patient, [id number] patient care, completing clinical documentation, performing a medically appropriate examination, counseling and educating the patient/family/caregiver, ordering medications, tests, or p rocedures, independently interpreting results (not separately reported), communicating results to the patient/family/caregiver, and care coordination (not separately reported). documented in this encounterOhiohealth [facility]04-23-2025 NoteMart[facility]04-23-2025 History of Present illness Narrative* Sandhya Kim LSW - 01/26/2025 10:44 AM EDT .PSYCHOSOCIAL SCREENING ASSESSMENT Date of Service: January 26, 2025 Benltey Gonzalez is a 64 year old male being seen for initial social work assessment. Diagnosis: Rectal Cancer New Primary Oncologist: Dr. Sánchez Radiation Oncologist: Dr. Monson Goals of Care: Curative intent Today's visit includes: self/patient Family History of Cancer: Mother, Father, and Sibling(s) SUPPORT NETWORK: Social Connections: Not on file Marital status: Parent(s): Mother is and Father is Child/Children: Yes. How many? has 4 children, Patient has 2 children patient care director arrangements needed: No Siblings: 12 siblings (6 are ) Grandchild(mechelle): 9 grandchildren and 2 great grandchildren. Patient has custody of 15 year old granddaughter. Home Health Provider: No Community Services: No Myra Identified: No is a Jehovah Witness Congregational/Spirituality: None Are these practices or beliefs that may affect or influence treatment? No EMPLOYMENT/FINANCIAL/HEALTH INSURANCE: Employment: Retired Income source: Social Security Insurance: Medicare only Prescription coverage: Yes [facility] the [facility] No Financial Distress: Yes, What assistance is needed? Other gas cards for traveling to medical appointments. [employer] is providing the gas cards. [place]: No FOOD INSECURITY Within the past year, have you worried about how you would buy or obtain food? No LIVING ARRANGEMENTS: Type: House- independent ranch Resides with: Family and granddaughter Transportation Needs: Not on file FUNCTIONAL STATUS: Cognitive limitations: none Physical limitations: none Language barrier: No Hearing Impaired: No Speech Impaired: No Visual Impairments: Yes, wears corrective lenses Special considerations/accommodations needed: No HEALTH LITERACY: Do you have difficulty understanding medical instructions or other written materials you receive from you doctor or pharmacy? Not asked Do have difficulty filling out medical forms by yourself? Not asked The following interventions were put into place: NA MEDICATION ADHERENCE: Within the past 2 weeks, have you had difficulty remembering to take your medicine? Not asked Within the past 2 weeks, did you ever miss taking your medications for reasons other than forgetting? No The following interventions were put into place: NA MENTAL HEALTH HISTORY: No History of combat/trauma: not discussed Intimate Partner Violence: Not on file Substance Use and Treatment History: denied History of Abuse: Unknown Issues with: Sleep:No Eating:No Exercising: N/A Stress Management: No ADVANCE DIRECTIVES/LEGAL DOCUMENTS: Living Will: Yes Scanned into EPIC: No Health Care Durable Power of Health Care Consultant: Yes Scanned into EPIC: No Guardianship: NA Scanned into EPIC:NA Reasons Advanced Directives were not Addressed: Other Patient reports that he has completed his Advance Directives. SW requested a copy. Advance Care Planning Goals of Care Date of Discussion: 01/26/2025 In this encounter: Patient states they have completed Advance Directives that name jen Arana as their agent. They will provide a copy for their electronic medical record. SIGNATURE: SEBASTIAN Cosby PATIENT NAME: Bentley Gonzalez DATE: January 26, 2025 TIME: 10:54 AM PAGER/CONTACT #: COPING STATUS: Stress: Not on file Coping Strengths: supportive relationships with immediate family and with friends successful managing past crises self advocate strong problem-solving skills ability to plan able to follow direction consistently over time able to communicate effectively Current affect/mood: appropriate History of Loss: Yes, parents and siblings Adjustment to diagnosis: reflecting understanding and responding appropriately BARRIERS/CARE CHALLENGES: None Are barriers/care challenges identified likely to have an impact on the patient's quality of life during treatment? No INTERVENTIONS/REFERRALS TO BE PROVIDED: Monitor patient response to treatment Continue follow up as needed Resources and Referrals: Internal: NA External: Other [facility] CLINICAL IMPRESSION: Patient is a 64 year old male with a diagnosis of rectal cancer. Patient lives in [place], [place] with his and 15 year old granddaughter that he has custody of. Patient is A&Ox4. SW reviewed the role of an Oncology SW. Patient denied any immediate psychosocial needs or concerns. SW will remain available and will follow up as appropriate. Psychosocial Risk Criteria If positive for one or more of the following risk criteria, follow up every 30 days Age: NA Mental Health: NA Practical Needs: N/A PLAN: Follow up PRN Follow up appointment with SW in: PRN Assigned SW listed in Care Team tab: Yes SEBASTIAN Cosby documented in this encounterOhiohealth [facility]in [facility]04-23-2025 Note* Addendum Note - Hilary Sánchez MD - 01/26/2025 9:11 AM EDTAddended by: HILARY SÁNCHEZ on: 01/26/2025 09:11 AM Modules accepted: Orders [facility]04-23-2025 Miscellaneous Notes* Addendum Note - Hilary Sánchez MD - 01/26/2025 9:11 AM EDTAddended by: HILARY SÁNCHEZ on: 01/26/2025 09:11 AM Modules accepted: Orders documented in this encounterOhiohealth [facility]in [facility]04-23-2025 History of Present illness Narrative* Hilary Sánchez MD - 01/26/2025 9:00 AM EDT Images from the original note were not included. PATIENT NAME: Bentley [facility] NO.: [id number] ATTENDING PHYSICIAN: Hilary Sánchez MD DATE OF SERVICE: 01/26/2025 Some of the elements of this note have been copied from Angelina Bernabe previous progress note date01/12/25. All the information has been reviewed carefully. [...] now has large volume stool but still gomultiple times a day. His hematochezia is also [...] 15. - Smokes 1pk for 3 days. 12/06/2024: -Continues to do well with xeloda 1300 mg bid with radiation -denies n/v/d/c/bleeding/mucositis or HFS symptoms -Scheduled with Dr. Singh for port placement 12/08 -finishing xrt on 12/1512/29/2024: Bentley Gonzalez returns for scheduled to begin treatment with fluorouracil, leucovorin and oxaliplatin. He received radiation to the pelvis 11/08/2024 through 12/15/2024 concurrent with Xeloda. He tolerated concurrent chemoradiation well. He has an area of skin dryness at the radiation area which he isapplying Aquaphor. He had a port placed on 12/08/2024. He denies bleeding and abnormal bruising. No rectal bleeding. He is moving his bowels extremely well. He is having a bowel movement in the morningand the evening. His stools have improved in diameter and he is having sufficient stool output. He denies any diarrhea. He states that his appetite is great. He is eating like he used to. No mouth sor es. No hand-foot syndrome. He denies fevers, chills, night sweats and signs/symptoms of infection. Updated Visit, January 06, 2025: Bentley Gonzalez returns for follow up and blood work. He received cycle 1 FOLFOX on 12/29/2024 and tolerated it well. He had some constipation after treatment but resolved by Friday. He denies any diarrhea. He is moving his bowels well. He is eating okay and his appetite is fair. He denies mouth sores. No nausea, vomiting or abdominal pain. He had no cold sensitivity no numbness or tingling. He hasa persistent mild rash for which he takes Atarax for itching. He typically takes 2 doses a couple times a week. Right after treatment he felt great! He did then develop some fatigue. He denies fevers, chills, night sweats and signs/symptoms of infection. No bleeding or abnormal bruising. 01/26/25: - Doing well - MRI rectum done last week at [facility] - C/o fatigue. - Bowel movements are good. Current Outpatient Medications Medication Sig hydrOXYzine HCl (ATARAX) 10 mg tablet Take 10 mg by mouth as needed. No current facility-administered medications for this visit. ALLERGIES No Known Allergies No past medical history on file. PAST SURGICAL HISTORY Procedure Laterality Date TONSILLECTOMY & ADENOIDECTOMY <AGE 10 FAMILY HISTORY Problem Relation Age of Onset Breast Cancer Mother Lung Cancer Father Cancer Sister Social History Tobacco Use Smoking status: Every Day Current packs/day: 1.00 Average packs/day: 1 pack/day for 54.3 years (54.3 ttl pk-yrs) Types: Cigarettes Start date: 1970 Smokeless tobacco: Never Vaping Use Vaping status: Never Used Substance Use Topics Alcohol use: Yes Comment: very seldom Drug use: Not Currently REVIEW OF SYSTEMS General: No weight loss, malaise or fevers. No night sweats. Fatigue. HEENT: Negative for headaches, No changes in hearing or vision, no nose bleeds or other nasal problems. Respiratory: Negative for cough, wheezing and shortness of breath. Cardiovascular: Negative for chest pain, leg swelling and palpitations. GI: Negative for abdominal discomfort, blood in stools or black stools and change in bowel habits. See HPI. : Negative for dysuria, frequency and incontinence. Musculoskeletal: Negative for joint pain or swelling, back pain, and muscle pain. Skin: Negative for lesions, rash and itching. Hematology/Lymphology: Negative for prolonged bleeding, bruising easily, and swollen nodes. Neuro: Negative for numbness or tingling of hands/feet. No weakness. PHYSICAL EXAMINATION: BP 123/77 Pulse 78 Temp 36.2 C (97.2 F) (Temporal) Resp 16 Ht 167.8 cm (5' 6.06 ) Wt 51.6kg (113 lb 12.1 oz) SpO2 99% BMI 18.33 kg/m ECOG PERFORMANCE STATUS: 0- Fully active, able to carry on all pre-disease performance w/o restriction. General: Alert and oriented, no distress, pleasant and cooperative. Heart: Regular, normal S1 and S2, no murmurs, rubs, or gallops. Lungs: Clear to auscultation bilaterally. Abdomen: Benign. Extremities: Feet/ankles without edema, posterior tibial pulses full and symmetrical. LABS: Glucose (mg/dL) Date Value 01/12/2025 102 Potassium (mmol/L) Date Value 01/12/2025 3.7 Sodium (mmol/L) Date Value 01/12/2025 137 Chloride (mmol/L) Date Value 01/12/2025 106 CO2 (mmol/L) Date Value 01/12/2025 24 Creatinine (mg/dL) Date Value 01/12/2025 0.74 BUN (mg/dL) Date Value 01/12/2025 10 Anion Gap (mmol/L) Date Value 01/12/2025 7 Calcium, Total (mg/dL) Date Value 01/12/2025 9.0 Protein, Total (g/dL) Date Value 01/12/2025 6.2 Albumin (g/dL) Date Value 01/12/2025 4.1 Bilirubin, Total (mg/dL) Date Value 01/12/2025 0.4 Alkaline Phosphatase (U/L) Date Value 01/12/2025 78 AST (U/L) Date Value 01/12/2025 15 ALT (U/L) Date Value 01/12/2025 9 WBC Date Value Ref Range Status 01/26/2025 5.26 3.70 - 11.00 k/uL Final RBC Date Value Ref Range Status 01/26/2025 3.74 (L) 4.20 - 6.00 m/uL Final Hemoglobin Date Value Ref Range Status 01/26/2025 12.5 (L) 13.0 - 17.0 g/dL Final Hematocrit Date Value Ref Range Status 01/26/2025 36.4 (L) 39.0 - 51.0 % Final MCV Date Value Ref Range Status 01/26/2025 97.3 80.0 - 100.0 fL Final MCH Date Value Ref Range Status 01/26/2025 33.4 26.0 - 34.0 pg Final MCHC Date Value Ref Range Status 01/26/2025 34.3 30.5 - 36.0 g/dL Final RDW-CV Date Value Ref Range Status 01/26/2025 16.1 (H) 11.5 - 15.0 % Final Platelet Count Date Value Ref Range Status 01/26/2025 137 (L) 150 - 400 k/uL Final MPV Date Value Ref Range Status 01/26/2025 8.8 (L) 9.0 - 12.7 fL Final Abs Neut Date Value Ref Range Status 01/26/2025 3.57 1.45 - 7.50 k/uL Final Lymphocytes % Date Value Ref Range Status 01/26/2025 8.9 % Final Abs Lymph Date Value Ref Range Status 01/26/2025 0.47 (L) 1.00 - 4.00 k/uL Final Monocytes % Date Value Ref Range Status 01/26/2025 16.5 % Final Abs Crosby Date Value Ref Range Status 01/26/2025 0.87 (H) <0.87 k/uL Final Abs Eosin Date Value Ref Range Status 01/26/2025 0.32 <0.46 k/uL Final Basophils % Date Value Ref Range Status 01/26/2025 0.4 % Final Abs Baso Date Value Ref Range Status 01/26/2025 <0.03 <0.11 k/uL Final PATH: IMAGING: CT chest [...] of radiation - Started radiation on 11/08/24. Radiation to pelvis completed on 12/15/2024. He tolerated chemoradiation well. - Port placed 12/08/2024. - 12/29/2024 Started treatment with fluorouracil, leucovorin and oxaliplatin (FOLFOX) - Cycle 1 - Plan is for treatment every 14 days x 8 cycles - Targeted oncology panel did not show any evidence of actionable mutations. PLAN: - Proceed with cycle 3 FOLFOX today - Tolerating well so far without any major toxicity. - Blood work today is unremarkable. - We will obtain the MRI rectum scan report done last week at [facility] - All his questions answered in detail. - F/u in 2 weeks. Hilary Sánchez MD Hematology/Oncology [facility] spent a total of 30 minutes on the date of the service which included preparing to see the patient, [id number] patient care, completing clinical documentation, obtaining and/or reviewing separately obtained history, performing a medically appropriate examination, counseling and educating the pat ient/family/caregiver, ordering medications, tests, or procedures, independently interpreting results (not separately reported), and communicating results to the patient/family/caregiver. CC: documented in this encounterOhiohealth [facility]04-23-2025 [facility]04-23-2025 Instructions* Patient Instructions* Hilary Sánchez MD - 01/26/2025 8:55 AM EDT Treatment today and in 2 weeks F/u in 2 weeks documented in this encounterOhiohealth Hardin [facility]04-23-2025 [facility]04-23-2025 History of Present illness Narrative* Joyce Valles RD - 01/26/2025 8:42 AM EDT Oncology Nutrition Therapy Reassessment RECOMMENDED MALNUTRITION DIAGNOSIS: NO MALNUTRITION IDENTIFIED Some elements copied from my note on 12/15/2024, have been updated and all reflect current decision making from today, 01/26/2025 Nutrition Diagnosis: Increased protein and energy needs related to hypermetabolic disease process as evidenced by need for weight maintenance and preservation of muscle mass. Nutrition Intervention: -continue small frequent meals/snacks - eat around the clock every 3 hours versus waiting on hunger cues -encouraged adequate hydration -aim for 60-64 ounces non-caffeine containing fluids -continue calorie/protein boosting techniques at meals/snacks Nutrition Monitoring & Evaluation: -PO Intake -Wt status -BM's -Biochemical Markers -Plan of care Date of last encounter: December 15, 2024 Patient met goal(s): Yes Patient's current symptoms are: None Patient presents for nutrition counseling for: rectal cancer Current Treatment: FOLFOX Previous Treatment(s): RT + Xeloda Brief follow up with pt in infusion area. Pt endorses good appetite and intakes. Weight remains stable. Pt states he is tolerating his chemotherapy with minimal nutrition impact symptoms. Some cold sensitivity, but not bothersome with eating/drinking. Pt denies any nutrition related questions or concerns at this time. Dietitian remains available. Readiness to Learn: Cognitive ability: Alert and oriented Motivation to learn: Interested Family support: Unable to assess - Family not present Instruction provided to: Patient Patient learns best by: Individual Instruction Factors affecting learning: None Physical limitations affecting learning: None Educational materials provided: none this visit Anthropometrics: Height: Last 1 Encounter Ht Readings: Date: Ht: 01/26/2025 167.8 cm (5' 6.06 ) Current weight: Last 1 Encounter Wt Readings: Date: Wt: 01/26/2025 51.6 kg (113 lb 12.1 oz) Estimated body mass index is 18.33 kg/m as calculated from the following: Height as of an earlier encounter on 01/26/25: 167.8 cm (5' 6.06 ). Weight as of an earlier encounter on 01/26/25: 51.6 kg (113 lb 12.1 oz). Resting Metabolic Rate: 1244 Weight Change: n/a Dosing Weight: 51.6 kg Estimated kilocalorie needs: 0009-0577 kilocalories determined by 30-35 kcal/kg Estimated protein needs: 62-77 grams determined by 1.2-1.5 g/kg Dosing weight Estimated fluid needs: ~5560-7940 milliliters based on 1 mL per kcal (unless otherwise indicated) Nutrition Focused Physical Exam: Unable to perform exam due to concerns for lack of privacy in open/shared treatment area, will re-attempt during reassessment. Potential Signs of Inflammation: chronic condition Allergies: Patient has no known allergies. Medications: Current Outpatient Medications Medication Sig Dispense Refill hydrOXYzine HCl (ATARAX) 10 mg tablet Take 10 mg by mouth as needed. No current facility-administered medications for this visit. Need for Follow up: prn Referred by: Liam SCHUMACHER Billing Type: Re-assess 0 units Time Spent with Patient: 6 minutes Signed by: Joyce Valles RD, JONO NATION documented in this encounterOhiohealth Hardin [facility]04-09-2025 [facility]04-09-2025 History of Present illness Narrative* Joyce Valles RD - 01/12/2025 9:57 AM EDT Oncology Nutrition Therapy Reassessment Attempted to see pt in infusion area. Treatment nurse states pt had just completed treatment and left. Pt added to schedule to see during his next tx. Signed by: Joyce Valles RD, CSO, LD documented in this encounterOhiohealth Hardin [facility]04-08-2025 [facility]04-08-2025 History of Present illness Narrative* Angelina Bernabe APRN.SURGICAL SERVICES COORDINATOR - 01/11/2025 9:42 PM EDT Images from the original note were not included. PATIENT NAME: Bentley Gonzalez [facility] NO.: [id number] ATTENDING PHYSICIAN: Hilary Sánchez MD DATE OF SERVICE: 01/12/2025 Some of the elements of this note have been copied from my previous progress note dated 01/06/25. Allthe information has been reviewed carefully. CHIEF COMPLAINT: [...] now has large volume stool but still gomultiple times a day. His hematochezia is also [...] 15. - Smokes 1pk for 3 days. 12/06/2024: -Continues to do well with xeloda 1300 mg bid with radiation -denies n/v/d/c/bleeding/mucositis or HFS symptoms -Scheduled with Dr. Singh for port placement 12/08 -finishing xrt on 12/1512/29/2024: Bentley Gonzalez returns for scheduled to begin treatment with fluorouracil, leucovorin and oxaliplatin. He received radiation to the pelvis 11/08/2024 through 12/15/2024 concurrent with Xeloda. He tolerated concurrent chemoradiation well. He has an area of skin dryness at the radiation area which he isapplying Aquaphor. He had a port placed on 12/08/2024. He denies bleeding and abnormal bruising. No rectal bleeding. He is moving his bowels extremely well. He is having a bowel movement in the morningand the evening. His stools have improved in diameter and he is having sufficient stool output. He denies any diarrhea. He states that his appetite is great. He is eating like he used to. No mouth sor es. No hand-foot syndrome. He denies fevers, chills, night sweats and signs/symptoms of infection. Updated Visit, January 06, 2025: Bentley Gonzalez returns for follow up and blood work. He received cycle 1 FOLFOX on 12/29/2024 and tolerated it well. He had some constipation after treatment but resolved by Friday. He denies any diarrhea. He is moving his bowels well. He is eating okay and his appetite is fair. He denies mouth sores. No nausea, vomiting or abdominal pain. He had no cold sensitivity no numbness or tingling. He hasa persistent mild rash for which he takes Atarax for itching. He typically takes 2 doses a couple times a week. Right after treatment he felt great! He did then develop some fatigue. He denies fevers, chills, night sweats and signs/symptoms of infection. No bleeding or abnormal bruising. Updated Visit, January 12, 2025: Bentley Gonzalez returns for scheduled follow-up and cycle 2 FOLFOX. Since his last visit there has been no significant changes. He denies any diarrhea. His weight is stable. No cold sensitivity or numbness or tingling. He denies fevers, chills, night sweats and signs/symptoms of infection. No bleeding or abnormal bruising. He does have some fatigue but nothing significant. He still has energy to do what he wants to do. He has a persistent rash for which he takes Atarax. 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 The rash is unchanged. Overall, he is doing well and wishes to proceed with treatment as planned. Current Outpatient Medications Medication Sig hydrOXYzine HCl (ATARAX) 10 mg tablet Take 10 mg by mouth three times a day as needed. prochlorperazine (COMPAZINE) 10 mg tablet Take 1 [...] mouth two times a day with 1 othercapecitabine prescription for 1,300 mg total. No current [...] packs/day: 1.00 Average packs/day: 1 pack/day for 54.3 years (54.3 ttl pk-yrs) Types: Cigarettes Start date: 1970 Smokeless tobacco: Never Vaping Use Vaping status: Never Used Substance Use Topics Alcohol use: Yes Comment: very seldom Drug use: Not Currently REVIEW OF SYSTEMS General: No weight loss, malaise or fevers. No night sweats. Fatigue. HEENT: Negative for headaches, No changes in hearing or vision, no nose bleeds or other nasal problems. Respiratory: Negative for cough, wheezing and shortness of breath. Cardiovascular: Negative for chest pain, leg swelling and palpitations. GI: Negative for abdominal discomfort, blood in stools or black stools and change in bowel habits. : Negative for dysuria, frequency and incontinence. Musculoskeletal: Negative for joint pain or swelling, back pain, and muscle pain. Skin: Negative for lesions. Positive rash and itching- chronic and unchanged. Hematology/Lymphology: Negative for prolonged bleeding, bruising easily, and swollen nodes. Neuro: Negative for numbness or tingling of hands/feet. No weakness. PHYSICAL EXAMINATION: BP 124/77 Pulse 72 Temp 36.2 C (97.1 F) (Temporal) Resp 16 Ht 167.8 cm (5' 6.06 ) Wt 50.7kg (111 lb 12.4 oz) SpO2 99% BMI 18.01 kg/m ECOG PERFORMANCE STATUS: 0- Fully active, able to carry on all pre-disease performance w/o restriction. General: Alert and oriented, no distress, pleasant and cooperative. Heart: Regular, normal S1 and S2, no murmurs, rubs, or gallops. Lungs: Clear to auscultation bilaterally. Abdomen: Benign. Extremities: Feet/ankles without edema, posterior tibial pulses full and symmetrical. LABS: Glucose (mg/dL) Date Value 01/12/2025 102 Potassium (mmol/L) Date Value 01/12/2025 3.7 Sodium (mmol/L) Date Value 01/12/2025 137 Chloride (mmol/L) Date Value 01/12/2025 106 CO2 (mmol/L) Date Value 01/12/2025 24 Creatinine (mg/dL) Date Value 01/12/2025 0.74 BUN (mg/dL) Date Value 01/12/2025 10 Anion Gap (mmol/L) Date Value 01/12/2025 7 Calcium, Total (mg/dL) Date Value 01/12/2025 9.0 Protein, Total (g/dL) Date Value 01/12/2025 6.2 Albumin (g/dL) Date Value 01/12/2025 4.1 Bilirubin, Total (mg/dL) Date Value 01/12/2025 0.4 Alkaline Phosphatase (U/L) Date Value 01/12/2025 78 AST (U/L) Date Value 01/12/2025 15 ALT (U/L) Date Value 01/12/2025 9 WBC Date Value Ref Range Status 01/12/2025 5.47 3.70 - 11.00 k/uL Final RBC Date Value Ref Range Status 01/12/2025 3.71 (L) 4.20 - 6.00 m/uL Final Hemoglobin Date Value Ref Range Status 01/12/2025 12.3 (L) 13.0 - 17.0 g/dL Final Hematocrit Date Value Ref Range Status 01/12/2025 36.0 (L) 39.0 - 51.0 % Final MCV Date Value Ref Range Status 01/12/2025 97.0 80.0 - 100.0 fL Final MCH Date Value Ref Range Status 01/12/2025 33.2 26.0 - 34.0 pg Final MCHC Date Value Ref Range Status 01/12/2025 34.2 30.5 - 36.0 g/dL Final RDW-CV Date Value Ref Range Status 01/12/2025 16.5 (H) 11.5 - 15.0 % Final Platelet Count Date Value Ref Range Status 01/12/2025 169 150 - 400 k/uL Final MPV Date Value Ref Range Status 01/12/2025 8.8 (L) 9.0 - 12.7 fL Final Abs Neut Date Value Ref Range Status 01/12/2025 3.50 1.45 - 7.50 k/uL Final Lymphocytes % Date Value Ref Range Status 01/12/2025 9.0 % Final Abs Lymph Date Value Ref Range Status 01/12/2025 0.49 (L) 1.00 - 4.00 k/uL Final Monocytes % Date Value Ref Range Status 01/12/2025 17.2 % Final Abs Crosby Date Value Ref Range Status 01/12/2025 0.94 (H) <0.87 k/uL Final Abs Eosin Date Value Ref Range Status 01/12/2025 0.50 (H) <0.46 k/uL Final Basophils % Date Value Ref Range Status 01/12/2025 0.4 % Final Abs Baso Date Value Ref Range Status 01/12/2025 <0.03 <0.11 k/uL Final PATH: IMAGING: CT chest [...] of radiation - Started radiation on 11/08/24. Radiation to pelvis completed on 12/15/2024. He tolerated chemoradiation well. - Port placed 12/08/2024. - 12/29/2024 Started treatment with fluorouracil, leucovorin and oxaliplatin (FOLFOX) - Cycle 1 - Plan is for treatment every 14 days x 8 cycles PLAN: - Proceed with cycle 2 FOLFOX. - Blood work today is unremarkable. - MRI ordered. Awaiting authorization and scheduling. - Return in 2 weeks for follow-up, labs and continued treatment. - Targeted oncology panel did not show any evidence of actionable mutations. Angelina Bernabe APRN.PEYMAN I spent a total of 30 minutes on the date of the service which included preparing to see the patient, [id number] patient care, completing clinical documentation, obtaining and/or reviewing separately obtained history, performing a medically appropriate examination, counseling and educating the pat ient/family/caregiver, ordering medications, tests, or procedures, independently interpreting results (not separately reported), and communicating results to the patient/family/caregiver. CC: documented in this encounterOhio[facility]04-04-2025 Telephone encounter Note * Telephone Encounter - Mariola Ballard RN - 01/07/2025 9:45 AM EDT Call placed to pt who states the rash is getting better, however he keeps picking at the scabs so it's not healing. Pt is taking atarax and using benadryl cream which both are helping. Encouraged pt to cover up the scabbed areas so he's not picking at them, and explained the risk of infection to ptagain. He will try his best to stop picking at the scabs. Mariola Ballard RN [facility] Work Phone: [phone] Miscellaneous Notes* Telephone Encounter - Mariola Ballard RN - 01/07/2025 9:45 AM EDT Call placed to pt who states the rash is getting better, however he keeps picking at the scabs so it's not healing. Pt is taking atarax and using benadryl cream which both are helping. Encouraged pt to cover up the scabbed areas so he's not picking at them, and explained the risk of infection to [place]in. He will try his best to stop picking at the scabs. Mariola Ballard RN * Telephone Encounter - Hilary Sánchez MD - 01/05/2025 9:20 AM EDT Ok fine. Please tell him to see me in office if the lesions get worse. Thanks * Telephone Encounter - Mariola Ballard RN - 01/04/2025 4:28 PM EDT Pt calls stating he saw his PCP today for a rash and they prescribed atarax for him and he wants toknow if it's ok for him to take this. Reassured pt that he can take atarax and it will not interfere with his treatments here. Pt states he has a red pin point rash on his legs, lower back, abdomen, arms, and hands. States it itches really bad and he hs several scabs from itching them. Instructed pt to try atarax to see if it helps, and to call our office back tomorrow if no relief. Pt is also going to try hydrocortisone cream. Mariola Ballard RN documented in this encounterOhiohealth [facility]in [facility]04-02-2025 [facility] History of Present illness Narrative* Angelina Bernabe APRN.SURGICAL SERVICES COORDINATOR - 01/05/2025 4:43 PM EDT Images from the original note were not included. PATIENT NAME: Bentley Gonzalez [facility] NO.: [id number] ATTENDING PHYSICIAN: Hilary Sánchez MD DATE OF SERVICE: 01/06/2025 Some of the elements of this note have been copied from my previous progress note dated 12/29/24. All the information has been reviewed carefully. [...] now has large volume stool but still gomultiple times a day. His hematochezia is also [...] 15. - Smokes 1pk for 3 days. 12/06/2024: -Continues to do well with xeloda 1300 mg bid with radiation -denies n/v/d/c/bleeding/mucositis or HFS symptoms -Scheduled with Dr. Singh for port placement 12/08 -finishing xrt on 12/1512/29/2024: Bentley Gonzalez returns for scheduled to begin treatment with fluorouracil, leucovorin and oxaliplatin. He received radiation to the pelvis 11/08/2024 through 12/15/2024 concurrent with Xeloda. He tolerated concurrent chemoradiation well. He has an area of skin dryness at the radiation area which he isapplying Aquaphor. He had a port placed on 12/08/2024. He denies bleeding and abnormal bruising. No rectal bleeding. He is moving his bowels extremely well. He is having a bowel movement in the morningand the evening. His stools have improved in diameter and he is having sufficient stool output. He denies any diarrhea. He states that his appetite is great. He is eating like he used to. No mouth sor es. No hand-foot syndrome. He denies fevers, chills, night sweats and signs/symptoms of infection. Updated Visit, January 06, 2025: Bentley Gonzalez returns for follow up and blood work. He received cycle 1 FOLFOX on 12/29/2024 and tolerated it well. He had some constipation after treatment but resolved by Friday. He denies any diarrhea. He is moving his bowels well. He is eating okay and his appetite is fair. He denies mouth sores. No nausea, vomiting or abdominal pain. He had no cold sensitivity no numbness or tingling. He hasa persistent mild rash for which he takes Atarax for itching. He typically takes 2 doses a couple times a week. Right after treatment he felt great! He did then develop some fatigue. He denies fevers, chills, night sweats and signs/symptoms of infection. No bleeding or abnormal bruising. Current Outpatient Medications Medication Sig prochlorperazine (COMPAZINE) [...] mouth two times a day with 1 othercapecitabine prescription for 1,300 mg total. No current [...] packs/day: 1.00 Average packs/day: 1 pack/day for 54.2 years (54.2 ttl pk-yrs) Types: Cigarettes Start date: 1970 Smokeless tobacco: Never Vaping Use Vaping status: Never Used Substance Use Topics Alcohol use: Yes Comment: very seldom Drug use: Not Currently REVIEW OF SYSTEMS General: No weight loss, malaise or fevers. No night sweats. Fatigue. HEENT: Negative for headaches, No changes in hearing or vision, no nose bleeds or other nasal problems. Respiratory: Negative for cough, wheezing and shortness of breath. Cardiovascular: Negative for chest pain, leg swelling and palpitations. GI: Negative for abdominal discomfort, blood in stools or black stools and change in bowel habits. See HPI. : Negative for dysuria, frequency and incontinence. Musculoskeletal: Negative for joint pain or swelling, back pain, and muscle pain. Skin: Negative for lesions, rash and itching. Hematology/Lymphology: Negative for prolonged bleeding, bruising easily, and swollen nodes. Neuro: Negative for numbness or tingling of hands/feet. No weakness. PHYSICAL EXAMINATION: BP 111/75 Pulse 83 Temp 36.4 C (97.6 F) (Temporal) Resp 16 Wt 50 kg (110 lb 3.7 oz) SpO2 97% BMI 17.76 kg/m ECOG PERFORMANCE STATUS: 0- Fully active, able to carry on all pre-disease performance w/o restriction. General: Alert and oriented, no distress, pleasant and cooperative. Heart: Regular, normal S1 and S2, no murmurs, rubs, or gallops. Lungs: Clear to auscultation bilaterally. Abdomen: Benign. Extremities: Feet/ankles without edema, posterior tibial pulses full and symmetrical. LABS: Glucose (mg/dL) Date Value 01/06/2025 106 Potassium (mmol/L) Date Value 01/06/2025 3.9 Sodium (mmol/L) Date Value 01/06/2025 142 Chloride (mmol/L) Date Value 01/06/2025 109 CO2 (mmol/L) Date Value 01/06/2025 25 Creatinine (mg/dL) Date Value 01/06/2025 0.76 BUN (mg/dL) Date Value 01/06/2025 11 Anion Gap (mmol/L) Date Value 01/06/2025 8 Calcium, Total (mg/dL) Date Value 01/06/2025 9.3 Protein, Total (g/dL) Date Value 01/06/2025 6.3 Albumin (g/dL) Date Value 01/06/2025 4.0 Bilirubin, Total (mg/dL) Date Value 01/06/2025 0.4 Alkaline Phosphatase (U/L) Date Value 01/06/2025 68 AST (U/L) Date Value 01/06/2025 14 ALT (U/L) Date Value 01/06/2025 9 WBC Date Value Ref Range Status 01/06/2025 4.93 3.70 - 11.00 k/uL Final RBC Date Value Ref Range Status 01/06/2025 3.87 (L) 4.20 - 6.00 m/uL Final Hemoglobin Date Value Ref Range Status 01/06/2025 12.7 (L) 13.0 - 17.0 g/dL Final Hematocrit Date Value Ref Range Status 01/06/2025 36.8 (L) 39.0 - 51.0 % Final MCV Date Value Ref Range Status 01/06/2025 95.1 80.0 - 100.0 fL Final MCH Date Value Ref Range Status 01/06/2025 32.8 26.0 - 34.0 pg Final MCHC Date Value Ref Range Status 01/06/2025 34.5 30.5 - 36.0 g/dL Final RDW-CV Date Value Ref Range Status 01/06/2025 16.0 (H) 11.5 - 15.0 % Final Platelet Count Date Value Ref Range Status 01/06/2025 145 (L) 150 - 400 k/uL Final MPV Date Value Ref Range Status 01/06/2025 9.0 9.0 - 12.7 fL Final Abs Neut Date Value Ref Range Status 01/06/2025 3.31 1.45 - 7.50 k/uL Final Lymphocytes % Date Value Ref Range Status 01/06/2025 9.1 % Final Abs Lymph Date Value Ref Range Status 01/06/2025 0.45 (L) 1.00 - 4.00 k/uL Final Monocytes % Date Value Ref Range Status 01/06/2025 12.4 % Final Abs Crosby Date Value Ref Range Status 01/06/2025 0.61 <0.87 k/uL Final Abs Eosin Date Value Ref Range Status 01/06/2025 0.52 (H) <0.46 k/uL Final Basophils % Date Value Ref Range Status 01/06/2025 0.2 % Final Abs Baso Date Value Ref Range Status 01/06/2025 <0.03 <0.11 k/uL Final PATH: IMAGING: CT chest [...] of radiation - Started radiation on 11/08/24. Radiation to pelvis completed on 12/15/2024. He tolerated chemoradiation well. - Port placed 12/08/2024. - 12/29/2024 Started treatment with fluorouracil, leucovorin and oxaliplatin (FOLFOX) - Cycle 1 - Plan is for treatment every 14 days x 8 cycles PLAN: - Tolerated cycle 1 FOLFOX well. - Blood work today is unremarkable. - Targeted oncology panel did not show any evidence of actionable mutations. - All his questions answered in detail. - Post chemoradiation rectal MRI to be ordered. - Return on 01/12/2025 for cycle 2 FOLFOX. Angelina Bernabe APRN.PEYMAN I spent a total of 30 minutes on the date of the service which included preparing to see the patient, [id number] patient care, completing clinical documentation, obtaining and/or reviewing separately obtained history, performing a medically appropriate examination, counseling and educating the pat ient/family/caregiver, ordering medications, tests, or procedures, independently interpreting results (not separately reported), and communicating results to the patient/family/caregiver. CC: documented in this encounterOhiohealth [facility]04-02-2025 Telephone encounter Note * Telephone Encounter - Hilary Sánchez MD - 01/05/2025 9:20 AM EDT Ok fine. Please tell him to see me in office if the lesions get worse. Thanks [facility]04-01-20[facility] Telephone encounter Note* Telephone Encounter - Mariola Ballard RN - 01/04/2025 4:28 PM EDT Pt calls stating he saw his PCP today for a rash and they prescribed atarax for him and he wants toknow if it's ok for him to take this. Reassured pt that he can take atarax and it will not interfere with his treatments here. Pt states he has a red pin point rash on his legs, lower back, abdomen, arms, and hands. States it itches really bad and he hs several scabs from itching them. Instructed pt to try atarax to see if it helps, and to call our office back tomorrow if no relief. Pt is also going to try hydrocortisone cream. Mariola Ballard RN [facility]04-01-2025 History of Present illness Narrative* FRANCISCO Mendoza - 01/04/2025 3:00 PM EDT Images from the original note were not included. Subjective Patient ID: Bentley Gonzalez is a 64 y.o. male who presents for Medicare Annual Wellness Visit Subsequent. Does not check his sugars. Occasionally an episode, states he gets a wavy light, steady light in one eye or the other, vision blurs, eats a little sugar and it goes a way. Happens three to four timesa year. Notices it more if he hasn't eaten anything in a while. Rash This is a recurrent (Gets it every year, Feels the rash started when he started chemo.) problem. The current episode started more than 1 month ago. The problem has been gradually worsening (Admits heis a apple picker ) since onset. The affected locations include the abdomen and back (Bilateral legs to ankles, and bilateral forearms/hands). The rash is characterized by redness and itchiness. Pertinent negatives include no congestion, cough, diarrhea, eye pain, fatigue, fever, rhinorrhea, shortness of breath, sore throat or vomiting. Treatments tried: Uses a moisturizing cream, normally helps, but has not used it enough yet. Medicare Wellness Over the past 2 weeks, how often have you been bothered by any of the following problems? Little interest or pleasure in doing things: Not at all Feeling down, depressed, or hopeless: Not at all Patient Health Questionnaire-2 Score: 0 Over the past 2 weeks, how often have you been bothered by any of the following problems? Trouble falling or staying asleep, or sleeping too much: Not at all Feeling tired or having little energy: Not at all Poor appetite or overeating: Not at all Feeling bad about yourself - or that you are a failure or have let yourself or your family down: Not at all Trouble concentrating on things, such as reading the newspaper or watching television: Not at all Moving or speaking so slowly that other people could have noticed? Or the opposite - being so fidgety or restless that you have been moving around a lot more than usual.: Not at all Thoughts that you would be better off or hurting yourself in some way: Not at all Patient Health Questionnaire-9 Score: 0 Earl Fall Risk History of [...] minutes 3 or more days a week?: No How confident are you that you can control and manage most of your health problems?: Very confident Can you mange your money, credit cards and accounts, pay bills and taxes?: Yes Vision Screening: Yes, no gross abnormalities Hearing Screening: Yes, no gross abnormalities Cognitive Screening Self Assessment: No overt cognitive deficiency is apparent by direct observation Three Word Registration: Village, Kitchen, Baby Clock Drawing: Normal Clock - 2 Three Word Recall: 2/3 words correct - 2 Total Score (0-5 Points): 4 Pain Assessment Pain Score: 1 Advance Care Planning Do you have a living will?: No (already has living will paperwork) Do you have a medical power of staff attorney?: No Current Outpatient Medications on File Prior to Visit Medication Sig Dispense Refill ondansetron (Zofran) 8 MG tablet Take 8 mg by mouth every 8 (eight) hours if needed prochlorperazine (Compazine) 10 MG tablet Take 10 mg by mouth every 6 (six) hours if needed [DISCONTINUED] capecitabine (Xeloda) 150 MG chemo tablet Take 300 mg by mouth twice a day. [DISCONTINUED] capecitabine (Xeloda) 500 MG chemo tablet Take 1,000 mg by mouth twice a day. PEG 3350 (Glycolax, Miralax) 4 gram packet Take 1 Dose by mouth Daily as needed No current facility-administered medications on file prior to visit. I have reviewed and reconciled the history and medication list with the patient today. No Known Allergies Social History Tobacco Use Smoking status: Every Day Current packs/day: 1.00 Types: Cigarettes Smokeless tobacco: Never Vaping Use Vaping status: Never Used Substance Use Topics Alcohol use: Not Currently Comment: 1 or 2 every couple month Drug use: Never Family History Problem Relation Name Age of Onset Cancer Mother Lung cancer Father Past Medical History: Diagnosis Date Cancer (CMS/HCC) rectal Diabetes mellitus (CMS/HCC) Obstruction of rectum 10/01/2024 Type 2 diabetes mellitus with diabetic neuropathy (CMS/HCC) 08/04/2023 Past Surgical History: Procedure Laterality Date COLONOSCOPY 09/24/2024 TONSILLECTOMY Visit Vitals BP 102/72 Pulse 97 Resp 16 Ht 5' 8 Wt 113 lb 6.4 oz SpO2 96% BMI 17.24 kg/m Smoking Status Every Day BSA 1.57 m Review of Systems Constitutional: Negative for chills, fatigue and fever. HENT: Negative for congestion, ear pain, rhinorrhea, sinus pressure and sore throat. Eyes: Negative for pain, discharge and redness. Respiratory: Negative for cough, shortness of breath and wheezing. Cardiovascular: Negative for chest pain, palpitations and leg swelling. Gastrointestinal: Negative for abdominal pain, constipation, diarrhea, nausea and vomiting. Genitourinary: Negative for dysuria, frequency and urgency. Musculoskeletal: Negative for arthralgias and back pain. Skin: Positive for rash. Neurological: Negative for dizziness, numbness and headaches. Psychiatric/Behavioral: Negative for confusion, dysphoric mood and sleep disturbance. Objective Physical Exam Constitutional: General: He is not in acute distress. Comments: Thin HENT: Head: Normocephalic and atraumatic. Right Ear: There is impacted cerumen. Left Ear: Tympanic membrane normal. Ears: Comments: Moderate cerumen in left canal Nose: Congestion present. Right Turbinates: Swollen. Left Turbinates: Swollen. Mouth/Throat: Mouth: Mucous membranes are moist. Pharynx: Posterior oropharyngeal erythema present. Eyes: General: No scleral icterus. Extraocular Movements: Extraocular movements intact. Conjunctiva/sclera: Conjunctivae normal. Pupils: Pupils are equal, round, and reactive to light. Neck: Vascular: No carotid bruit. Cardiovascular: Rate and Rhythm: Normal rate and regular rhythm. Pulses: Normal pulses. Pulmonary: Effort: Pulmonary effort is normal. Breath sounds: Decreased air movement present. Decreased breath sounds present. No wheezing, rhonchi or rales. Abdominal: General: Bowel sounds are normal. There is no distension. Palpations: Abdomen is soft. Tenderness: There is no abdominal tenderness. There is no guarding. Musculoskeletal: General: No swelling, tenderness, deformity or signs of injury. Normal range of motion. Cervical back: Normal range of motion. No tenderness. Lymphadenopathy: Cervical: No cervical adenopathy. Skin: General: Skin is warm and dry. Findings: Erythema and rash present. Rash is papular. Comments: Rash is scattered diffusely over bilateral legs down to ankles, bilateral forearms to fingers, and his torso Neurological: General: No focal deficit present. Mental Status: He is alert and oriented to person, place, and time. Cranial Nerves: No cranial nerve deficit. Sensory: No sensory deficit. Motor: No weakness. Coordination: Coordination normal. Gait: Gait normal. Psychiatric: Mood and Affect: Mood normal. Behavior: Behavior normal. Thought Content: Thought content normal. Judgment: Judgment normal. Assessment & Plan 1. Medicare annual wellness visit, subsequent (Primary) Reviewed all relevant preventative screenings with the patient in detail. Medicare Wellness form completed and will be scanned into patient's chart. All needed testing was ordered. Will continue withyearly Medicare Wellness exams. 2. ACP (advance care planning) Patient agreed to discuss advance care planning at today's wellness visit. We discussed that an advance directive is a legal document that only goes into effect if the patient is incapacitated and unable to speak for himself or herself. This would help healthcare providers to ensure that the patient gets the care that he or she wishes to receive. The goal is to provide a patient with the best possible quality of life. Encouraged patient to obtain a living will and durable power of staff attorney for healthcare. We discussed telling green people about their advance directives such as close family members, and requested a copy to scan into the patient's EHR. An advance directive packet was offered to the patient. 3. Benign essential hypertension (CMS/HCC) BP is normal today without medication. Will continue to monitor. 4. Other problems related to lifestyle Patient was born in 1960. He is agreeable to Hepatitis C screening. - HEPATITIS C AB W/RFL RNS, PCR W/RFL GENOTYPE,LIPA 5. Rectal cancer (CMS/HCC) The patient is seeing a medical records director for this condition, treatment is deferred to that specialist. Correspondence from that specialist and any available testing were reviewed during today's visit. 6. Smoker Discussed smoking cessation with the patient. Encouraged patient to cut back and soon quit smoking.Health risks of smoking, and benefits of quitting reviewed with the patient. 7. Dermatitis Start Hydroxyzine as needed for itching. Advised it may cause drowsiness. Encouraged moisturizing cream to affected skin daily. Contact office if does not resolve. - hydrOXYzine HCl (Atarax) 10 MG tablet; Take 1 tablet (10 mg) by mouth every 8 (eight) hours if needed for itching or allergies for up to 7 days Dispense: 21 tablet; Refill: 0 8. Change in bowel habits The patient is seeing a medical records director for this condition, treatment is deferred to that specialist. Correspondence from that specialist and any available testing were reviewed during today's visit. 9. Slow transit constipation This is a chronic medical condition that is stable since last assessment. No treatment indicated atthis time. 10. Myalgia This is a chronic medical condition that is stable since last assessment. No treatment indicated atthis time. 11. Protein-calorie malnutrition, unspecified severity (CMS/HCC) Encouraged adequate oral intake. Routine meals. 12. Blood in stool The patient is seeing a medical records director for this condition, treatment is deferred to that specialist. Correspondence from that specialist and any available testing were reviewed during today's visit. 13. Elevated blood sugar Patient's most recent HgbA1c, 08/02/2024, was normal at 5.3. He does not take medication to controlhis glucose. Pt is impaired fasting glucose, but no longer has readings in the Diabetic range. 14. Hypoglycemia Admits that prior to these episodes, he often has not had much to eat if anything. Encouraged routine meals, even if not hungry to avoid hypoglycemic episodes. Will continue to monitor. Follow up in about 6 months (around 07/06/2025) for Recheck. Mily JIANG, DOMINIQUEC documented in this encounterEllett Memorial [id number] Telephone encounter Note* Telephone Encounter - Mariola Ballard RN - 12/31/2024 12:44 PM EDT CYCLE 1/DAY 1 POST TREATMENT CALL Today's date: December 31, 2024 Treatment Regimen: folfox C1D1 Date: 12/29/24 Called patient to follow-up on symptom management. Spoke with patient SYMPTOM ASSESSMENT Neuro: None and Cold sensitivity states he hasn't has any at all CV/Resp: None GI/: Appetite: no changes in appetite, appetite good and denies N/V, D/C Integument: None Activity: Patient reported no changes in energy level, energy level good Pain: No=0 (pain 0 on a scale of 0-10). Fever: No Chills: No Any new referrals needed? No Reinforced CURRENT treatment education based on current and anticipated symptoms. Discussed port/line care and patient verbalizes understanding: Yes denies concerns at port site Patient instructed to contact office or after hours Hematology/Oncology fellow for: temperature >= 100.4; questions or concerns. Patient verbalized understanding of when to seek medical attention and after hours number protocol. Mariola Ballard RN [facility] Work Phone: [phone] Miscellaneous Notes* Telephone Encounter - Mariola Ballard RN - 12/31/2024 12:44 PM EDT CYCLE 1/DAY 1 POST TREATMENT CALL Today's date: December 31, 2024 Treatment Regimen: folfox C1D1 Date: 12/29/24 Called patient to follow-up on symptom management. Spoke with patient SYMPTOM ASSESSMENT Neuro: None and Cold sensitivity states he hasn't has any at all CV/Resp: None GI/: Appetite: no changes in appetite, appetite good and denies N/V, D/C Integument: None Activity: Patient reported no changes in energy level, energy level good Pain: No=0 (pain 0 on a scale of 0-10). Fever: No Chills: No Any new referrals needed? No Reinforced CURRENT treatment education based on current and anticipated symptoms. Discussed port/line care and patient verbalizes understanding: Yes denies concerns at port site Patient instructed to contact office or after hours Hematology/Oncology fellow for: temperature >= 100.4; questions or concerns. Patient verbalized understanding of when to seek medical attention and after hours number protocol. Mariola Ballard RN documented in this encounterOhiohealth [facility]in [facility]03-27-2025 Telephone encounter Note * Telephone Encounter - Esther Montejo MA - 12/30/2024 4:07 PM EDT Lab orders needed for appointment scheduled 01/06. Esther Montejo MA [facility]03-27-2025 Miscellaneous Notes* Telephone Encounter - Esther Montejo MA - 12/30/2024 4:07 PM EDT Lab orders needed for appointment scheduled 01/06. Esther Montejo MA documented in this encounterOhiohealth Hardin [facility]03-26-2025 NoteMart[facility]03-26-2025 History of Present illness Narrative* Sherrie Monson MD - 12/29/2024 12:20 PM EDT Radiation Oncology - Follow Up Note PATIENT NAME: Bentley Gonzalez PATIENT DIAGNOSIS: Rectal cancer, adenocarcinoma, locally advanced RADIATION SUMMARY: DATES OF TREATMENT: 11-08-2024 to 12-15-2024 AREA TREATED: Pelvis DELIVERED DOSE: Area: Pelvis with daily CBCT Imaging 4500cGy in 25 fractions, 3 Rapid Arc VMAT [place],10X DELIVERED DOSE: Area: Pelvis Rectal Boost 540cGy in 3 fractions, 2 Rapid Arc VMAT [place], 10X TOTAL: 5040cGy in 28 fractions ELAPSED TIME: 32 days. INTERVAL HISTORY: Doing fairly well after recent completion of combined pelvic radiation and chemotherapy. Still some residual diarrhea. No blood per rectum. No pelvic pain. Bladder function good. ALLERGIES No Known Allergies MEDICATIONS: prochlorperazine (COMPAZINE) 10 mg tablet Take 1 [...] mouth two times a day with 1 othercapecitabine prescription for 1,300 mg total. REVIEW OF SYSTEMS: GENERAL: Negative for weight loss, fevers, chills, or night sweats. HEENT: Negative for sudden vision or hearing changes. NECK: Negative for masses in the neck. RESPIRATORY: Negative for cough or shortness of breath. CARDIAC: Negative for chest pain, palpitations, murmurs, or syncopal episodes. GI: Negative for nausea, vomiting, diarrhea, constipation, blood per rectum, or melena. : Negative for dysuria, hematuria, urgency, frequency or incontinence. MUSCULOSKELETAL: Negative for limitations in movement, pain, or swelling. NEURO: Negative for dizziness, headache, weakness or numbness. HEMATOLOGIC: Negative for bleeding or easy bruising. SKIN: Mild posterior pelvic skin irritation PHYSICAL EXAM: VS: 12/29/24 Weight 51.1 kg (112 lb 10.5 oz) Height 167.8 cm (5' 6.06 ) [1] BSA 1.54 BMI 18.15 Temp 36.6 C (97.9 F) Pulse 91 Resp 16 BP 119/73 SpO2 99 % [1] verified by 2 caregivers KPS: 100 General Appearance: Alert and oriented. No acute distress. Neck: Normal ROM. No palpable cervical or supraclavicular adenopathy. Abdomen: Soft. Nontender. Nondistended. Skin: Mild gluteal area radiation changes Lymphatics: No palpable lymphadenopathy. ASSESSMENT AND PLAN: Rectal cancer, adenocarcinoma, locally advanced Doing well. Clinically with improvement after recent completion of combined pelvic radiation and chemotherapy. He continues systemic treatment. He will have restaging MRI in the future coordinated bymedical oncology. I will plan to see his back in 3 months. Signed by: Sherrie Monson MD cc: Rashaun Torres MD [address] [place] [address] documented in this encounterOhiohealth Hardin [facility]03-26-2025 NoteMartins Ferry [facility]03-26-2025 History of Present illness Narrative* Angelina Bernabe APRN.SURGICAL SERVICES COORDINATOR - 12/29/2024 8:14 AM EDT Images from the original note were not included. PATIENT NAME: Bentley Gonzalez [facility] NO.: [id number] ATTENDING PHYSICIAN: Hilary Sánchez MD DATE OF SERVICE: 12/29/2024 Some of the elements of this note have been copied from Cong LafleursFRANCISCO previous progress note dated 12/06/24. All the information has been reviewed carefully. [...] now has large volume stool but still gomultiple times a day. His hematochezia is also [...] 15. - Smokes 1pk for 3 days. 12/06/2024: -Continues to do well with xeloda 1300 mg bid with radiation -denies n/v/d/c/bleeding/mucositis or HFS symptoms -Scheduled with Dr. Singh for port placement 12/08 -finishing xrt on 12/1512/29/2024: Bentley Gonzalez returns for scheduled to begin treatment with fluorouracil, leucovorin and oxaliplatin. He received radiation to the pelvis 11/08/2024 through 12/15/2024 concurrent with Xeloda. He tolerated concurrent chemoradiation well. He has an area of skin dryness at the radiation area which he isapplying Aquaphor. He had a port placed on 12/08/2024. He denies bleeding and abnormal bruising. No rectal bleeding. He is moving his bowels extremely well. He is having a bowel movement in the morningand the evening. His stools have improved in diameter and he is having sufficient stool output. He denies any diarrhea. He states that his appetite is great. He is eating like he used to. No mouth sor es. No hand-foot syndrome. He denies fevers, chills, night sweats and signs/symptoms of infection. Current Outpatient Medications Medication Sig prochlorperazine (COMPAZINE) [...] mouth two times a day with 1 othercapecitabine prescription for 1,300 mg total. No current [...] packs/day: 1.00 Average packs/day: 1 pack/day for 54.2 years (54.2 ttl pk-yrs) Types: Cigarettes Start date: 1972 Smokeless tobacco: Never Vaping Use Vaping status: Never Used Substance Use Topics Alcohol use: Yes Comment: very seldom Drug use: Not Currently REVIEW OF SYSTEMS General: No weight loss, malaise or fevers. No night sweats. HEENT: Negative for headaches, No changes in hearing or vision, no nose bleeds or other nasal problems. Respiratory: Negative for cough, wheezing and shortness of breath. Cardiovascular: Negative for chest pain, leg swelling and palpitations. GI: Negative for abdominal discomfort, blood in stools or black stools and change in bowel habits. : Negative for dysuria, frequency and incontinence. Musculoskeletal: Negative for joint pain or swelling, back pain, and muscle pain. Skin: Negative for lesions, rash and itching. Hematology/Lymphology: Negative for prolonged bleeding, bruising easily, and swollen nodes. Neuro: Negative for numbness or tingling of hands/feet. No weakness. PHYSICAL EXAMINATION: BP 119/73 Pulse 91 Temp 36.6 C (97.9 F) (Temporal) Resp 16 Ht 167.8 cm (5' 6.06 ) Wt 51.1kg (112 lb 10.5 oz) SpO2 99% BMI 18.15 kg/m ECOG PERFORMANCE STATUS: 0- Fully active, able to carry on all pre-disease performance w/o restriction. General: Alert and oriented, no distress, pleasant and cooperative. Heart: Regular, normal S1 and S2, no murmurs, rubs, or gallops. Lungs: Clear to auscultation bilaterally. Abdomen: Benign. Extremities: Feet/ankles without edema, posterior tibial pulses full and symmetrical. LABS: Glucose (mg/dL) Date Value 12/29/2024 117 Potassium (mmol/L) Date Value 12/29/2024 3.9 Sodium (mmol/L) Date Value 12/29/2024 139 Chloride (mmol/L) Date Value 12/29/2024 105 CO2 (mmol/L) Date Value 12/29/2024 23 Creatinine (mg/dL) Date Value 12/29/2024 0.69 BUN (mg/dL) Date Value 12/29/2024 13 Anion Gap (mmol/L) Date Value 12/29/2024 11 Calcium, Total (mg/dL) Date Value 12/29/2024 8.9 Protein, Total (g/dL) Date Value 12/29/2024 6.6 Albumin (g/dL) Date Value 12/29/2024 4.1 Bilirubin, Total (mg/dL) Date Value 12/29/2024 0.4 Alkaline Phosphatase (U/L) Date Value 12/29/2024 78 AST (U/L) Date Value 12/29/2024 14 ALT (U/L) Date Value 12/29/2024 8 WBC Date Value Ref Range Status 12/29/2024 6.74 3.70 - 11.00 k/uL Final RBC Date Value Ref Range Status 12/29/2024 4.11 (L) 4.20 - 6.00 m/uL Final Hemoglobin Date Value Ref Range Status 12/29/2024 13.5 13.0 - 17.0 g/dL Final Hematocrit Date Value Ref Range Status 12/29/2024 39.4 39.0 - 51.0 % Final MCV Date Value Ref Range Status 12/29/2024 95.9 80.0 - 100.0 fL Final MCH Date Value Ref Range Status 12/29/2024 32.8 26.0 - 34.0 pg Final MCHC Date Value Ref Range Status 12/29/2024 34.3 30.5 - 36.0 g/dL Final RDW-CV Date Value Ref Range Status 12/29/2024 16.6 (H) 11.5 - 15.0 % Final Platelet Count Date Value Ref Range Status 12/29/2024 193 150 - 400 k/uL Final MPV Date Value Ref Range Status 12/29/2024 8.5 (L) 9.0 - 12.7 fL Final Abs Neut Date Value Ref Range Status 12/29/2024 5.08 1.45 - 7.50 k/uL Final Lymphocytes % Date Value Ref Range Status 12/29/2024 7.6 % Final Abs Lymph Date Value Ref Range Status 12/29/2024 0.51 (L) 1.00 - 4.00 k/uL Final Monocytes % Date Value Ref Range Status 12/29/2024 11.0 % Final Abs Crosby Date Value Ref Range Status 12/29/2024 0.74 <0.87 k/uL Final Abs Eosin Date Value Ref Range Status 12/29/2024 0.36 <0.46 k/uL Final Basophils % Date Value Ref Range Status 12/29/2024 0.3 % Final Abs Baso Date Value Ref Range Status 12/29/2024 <0.03 <0.11 k/uL Final PATH: IMAGING: CT chest [...] of radiation - Started radiation on 11/08/24. Radiation to pelvis completed on 12/15/2024. He tolerated chemoradiation well. -Port placed 12/08/2024. PLAN: - Start treatment with fluorouracil, leucovorin and oxaliplatin (FOLFOX). He will receive cycle 1 today. Plan is for treatment every 14 days x 8 cycles. - The risks, benefits and side effects were discussed at length. Consent was obtained. - Blood work today is unremarkable. - Targeted oncology panel did not show any evidence of actionable mutations. - All his questions answered in detail Angelina Bernabe APRN.SURGICAL SERVICES COORDINATOR I spent a total of 30 minutes on the date of the service which included preparing to see the patient, [id number] patient care, completing clinical documentation, obtaining and/or reviewing separately obtained history, performing a medically appropriate examination, counseling and educating the pat ient/family/caregiver, ordering medications, tests, or procedures, independently interpreting results (not separately reported), and communicating results to the patient/family/caregiver. CC: documented in this encounterOhiohealth Hardin [facility]03-21-2025 Telephone encounter Note * Telephone Encounter - Shirin Hahnica - 12/24/2024 2:23 PM EDT Spoke with patient's , Yasmeen, over the phone today. Patient is active with [employer], LOC 80%, $4500 OOP has $1533.10 remaining. Estimate shows patient financial responsibility is $514.34 for each treatment in 2024 until oop max is reached. Patient stated understanding. Reference #[id number]. She expressed some concern over finances. I told her I will add Bentley to my wait list for anh funding as there are none open currently. I also told her about payment plans as well as [employer] if she felt that was needed in the future. Mycost sent via [employer] to complete by patient. [facility]03-21-2025 Miscellaneous Notes* Telephone Encounter - Paige Hahn - 12/24/2024 2:23 PM EDT Spoke with patient's , Yasmeen, over the phone today. Patient is active with [employer] Medicare, LOC 80%, $4500 OOP has $1533.10 remaining. Estimate shows patient financial responsibility is $514.34 for each treatment in 2024 until oop max is reached. Patient stated understanding. Reference #[id number]. She expressed some concern over finances. I told her I will add Bentley to my wait list for anh funding as there are none open currently. I also told her about payment plans as well as [employer] if she felt that was needed in the future. Mycost sent via [employer] to complete by patient. documented in this encounterOhiohealth Hardin [facility] Hospital03-12-2025 NoteMart[facility]03-12-2025 History of Present illness Narrative* Sherrie Monson MD - 12/15/2024 11:19 AM EDT Radiation Oncology - On Treatment Review (OTR) Note PATIENT NAME: Bentley Gonzalez PATIENT DIAGNOSIS: Locally advanced adenocarcinoma the rectum. COURSE: definitive, pre-operative, and concurrent chemotherapy AREA TREATED: Pelvis/Rectum CURRENT DOSE: 5040 cGy in 28 fx PLANNED DOSE: 5040 cGy in 28 fx SUBJECTIVE: Overall doing well. No new issues. EXAM: 12/15/24 0903 BP: 122/83 Pulse: 89 Resp: 16 Temp: 36.2 C (97.2 F) SpO2: 99% Weight: 50.8 kg (111 lb 15.9 oz) KPS: 100 General Appearance: Alert and oriented. No acute distress. Radiation dermatitis: No IMAGING/LAB RESULTS: Hemoglobin (g/dL) Date Value 12/06/2024 13.8 Hematocrit (%) Date Value 12/06/2024 40.3 WBC (k/uL) Date Value 12/06/2024 5.83 Platelet Count (k/uL) Date Value 12/06/2024 146 Treatment chart checked: Yes Patient treatment site reviewed and verified:Yes Port films reviewed and current:Yes Medications started: None ASSESSMENT/PLAN: Clinically stable. Finished today. Followup discussed. Sherrie Monson MD documented in this encounterOhiohealth Hardin [facility]03-12-2025 History of Present illness Narrative* Joyce Valles, RD - 12/15/2024 9:15 AM EDT Oncology Nutrition Therapy Progress Note RECOMMENDED MALNUTRITION DIAGNOSIS: NO MALNUTRITION IDENTIFIED per RD on 11/29/2024 Some elements copied from my note on 11/29/2024, have been updated and all reflect current decision making from today, 12/15/2024 Nutrition Intervention: -continue small frequent meals/snacks - eat around the clock every 3 hours versus waiting on hunger cues -include lean protein source at each meal/snack -encouraged adequate hydration -aim for 60-64 ounces non-caffeine containing fluids -discussed oral nutrition supplements -if desired may trial ensure complete or Orgain -continue calorie/protein boosting techniques at meals/snacks Nutrition Monitoring & Evaluation: -PO Intake -Wt status -BM's -Supplement tolerance/acceptance -Biochemical Markers -Plan of care Date of last encounter: November 29, 2024 Patient met goal(s): Yes Patient's symptoms are: None Patient presents for nutrition counseling for: rectal cancer Current Treatment: RT + Xeloda Previous Treatment(s): n/a Per chart review, pt completes radiation today and will start FOLFOX on 12/29/2024. Pt denies any current chewing/swallowing issues. Pt denies any current N/V/D/C. Pt's weight remains stable. Appetite and intakes are good. He reports only a couple of days in the past week or two where he wasn't eating quite as much due to constipation. Once constipation resolved, he was eating per his normal again. Will plan to follow up with pt at cycle 2 of FOLFOX, pt verbalized understanding. READINESS TO LEARN Cognitive ability: Alert and oriented Motivation to learn: Interested Family support: Unable to assess - Family not present Instruction provided to: Patient Patient learns best by: Individual Instruction Factors affecting learning: None Physical limitations affecting learning: None Educational materials provided: none this visit Need for Follow up: will continue to follow Referred by: Liam SCHUMACHER Billing Type: Re-assess/15 min 1 unit Billed Time: 15 minutes Signed by: Joyce Valles RD, JONO [place] documented in this encounterOhio[facility]03-12-2025 [facility]03-12-2025 History of Present illness Narrative* Sherrie Monson MD - 12/15/2024 12:00 AM EDT [facility] Radiation Oncology Department RADIATION ONCOLOGY - COMPLETION NOTE PATIENT: JOSEF GONZALEZB: 1960 DATES OF TREATMENT: 11-08-2024 to 12-15-2024 DIAGNOSIS: Rectal cancer, adenocarcinoma, locally advanced AREA TREATED: Pelvis DELIVERED DOSE: Area: Pelvis with daily CBCT Imaging 4500cGy in 25 fractions, 3 Rapid Arc VMAT [place],10X DELIVERED DOSE: Area: Pelvis Rectal Boost 540cGy in 3 fractions, 2 Rapid Arc VMAT [place], 10X TOTAL: 5040cGy in 28 fractions ELAPSED TIME: 32 days. CLINICAL SUMMARY: The patient received concurrent Xeloda chemotherapy. Overall he tolerated radiation with mild radiation related diarrhea and fatigue as expected. No other issues. Clinically patientnoted an improvement in bowel function. The patient was able to complete treatment as intended without break interruption or modification of prescription plan. The disease response will be assessed in clinic. The patient will be seen againin 2 weeks for post radiation follow-up. Staff Physician Jack Monson M.D. / KG 511:21 AM Electronically Signed cc: Dr. Charanjit Tucker documented in this encounterMichael Ville [address]-12-2025 NoteMartins Ferry [facility]03-10-2025 Telephone encounter Note* Telephone Encounter - Mariola Ballard RN - 12/13/2024 9:58 AM EDT Letter faxed per pt request. Mariola Ballard RN [facility] Work Phone: [phone] Miscellaneous Notes* Telephone Encounter - Mariola Ballard RN - 12/13/2024 9:58 AM EDT Letter faxed per pt request. Mariola Ballard RN * Telephone Encounter - Mariola Ballard RN - 12/10/2024 3:51 PM EST Call received from pt stating he just got a letter that he's been selected for jury duty. Pt requesting a letter to be excused from this. Letter needs to be faxed to Esther at [phone]. Please dictate letter. Thanks Mariola Ballard RN documented in this encounterOhiohealth [facility]in [facility]03-07-2025 Telephone encounter Note * Telephone Encounter - Mariola Ballard RN - 12/10/2024 3:51 PM EST Call received from pt stating he just got a letter that he's been selected for jury duty. Pt requesting a letter to be excused from this. Letter needs to be faxed to Esther at [phone]. Please dictate letter. Thanks Mariola Ballard RN [facility]03-06-2025 [facility]03-06-2025 History of Present illness Narrative* Mariola Ballard RN - 12/09/2024 11:18 AM EST ONCOLOGY PATIENT EDUCATION NOTE TOPIC: Chemotherapy, Medications: oxaliplatin, 5FU patient and spouse here today for education for treatment of Colon / Rectal Cancer Anticipated/Scheduled start date: 12/29/24 READINESS TO LEARN: COGNITIVE ABILITY: Alert and oriented MOTIVATION TO LEARN: Interested FAMILY SUPPORT: High - Very involved in pt care INSTRUCTION PROVIDED TO: Patient and Spouse INSTRUCTION PROVIDED BY: Nurse Coordinator PATIENT LEARNS BEST BY: Multiple Methods FACTORS AFFECTING LEARNING: None PHYSICAL LIMITATIONS AFFECTING LEARNING: None LEARNING RESPONSE METHOD OF INSTRUCTION: Individual instruction Written instruction/Handouts Verbal instruction PATIENT/FAMILY RESPONSE: Verbalizes understanding of: CHEMOTHERAPY-Regimen, toxicity and side effects EQUIPMENT USE-Correct use of Equipment INFECTION MANAGEMENT-Signs and symptoms of an infection and importance of contacting the physician MEDICAL REGIMEN-Importance of following prescribed medical regimen MEDICATION PRESCRIBED-Accurate knowledge of prescribed medication prior to discharge MEDICATION ROUTE-Correct route for administration of the prescribed medication MEDICATION SIDE EFFECTS-Side effects associated with the medication that warrant a call to the physician PATIENT SAFETY PRINCIPLES SYMPTOM MANAGEMENT-Correct actions to take to manage symptoms associated with his/her disease/illness WORSENING CONDITION-Signs and symptoms of a worsening condition that warrant a call to the physician Information received as demonstrated by interest and questions FOLLOW UP PLAN: Patient instructed to call with any further issues Recommend - Recommend continued instruction and follow up as directed Follow up phone call. Contact information given. SUPPLEMENTAL MATERIAL: Written material was provided at this visit with the following information: - Chemotherapy education was provided by a pharmacist NO - Side effect management information was provided/discussed including but not limited to: abdominaldiscomfort, anemia, appetite changes, arthralgia, bowel habit changes, chest pain, cold sensitivity, diet, electrolyte disturbances, fatigue, hand-foot syndrome, headache, hypersensitivity reaction, infection, myalgia, nausea/vomitting, neutropenia, peripheral neuropathy, rash, risk for DVT, shortness of breath, skin changes, taste changes, thrombocytopenia YES - Provided important phone numbers and contacts during and after hours. YES - Provided information on symptoms that require immediate assistance. YES - Provided Chemotherapy when to call handouts YES - Preventing infection. YES - Treatment schedule and confirmation of appointment times. YES - Available support groups. NA - The importance of contraception during the course of chemotherapy NA - Neutropenic fever protocol discussed with patient, which included the importance of reporting anyfever of 100.4F (38.0C) or greater to the healthcare team as noted on the provided wallet card and/or magnet. YES - Pt has my Journey binder at home as well as antiemetics from previous treatment. - Pt states he will finish with radiation on 12/15/24 Time Spent: 30 minutes REFERRAL (RECOMMENDATION): N/A Mariola Ballard RN documented in this encounterOhiohealth Hardin [facility]03-05-2025 [place] [address] Vascular Surgery H&P Signed Patient: Bentley Gonzalez MR#: [id number] : 1960 Acct:[id number] Age/Sex: 64 / M Adm Date: 5 Loc: ME Room: Type: [facility] Attending Dr: Stuart Mix MD Copies to: MD Rashaun Haque MD~ Date of Service: 12/08/2024 HPI History of Present Illness HPI: Mr. Gonzalez is a 64 year old male with rectal carcinoma diagnosed September 2024. He is sent today for chemotherapy access. Review of Systems Review of Systems All other systems reviewed & are negative unless noted below or in HPI [facility] Medical History (Updated 12/08/24 @ 09:33 by Stuart Mix MD) Abnormal colonoscopy Rectal cancer Borderline diabetes not currently on medication Surgical History History of tonsillectomy Family History Father Myocardial infarction Lung cancer Mother Heart disease Breast cancer Social History Smoking Status: Current every day smoker Tobacco Type: cigarettes Substance Use Type: Alcohol Meds Medications and Allergies Allergies No Known Allergies Allergy (Verified 12/08/24 07:06) Home Medications capecitabine 500 mg tablet 1,300 mg PO BID 12/08/24 [History Confirmed 12/08/24] Exam Physical Exam Vital Signs: Temp Pulse Resp BP Pulse Ox O2 Del Method 97.9 F 88 16 103/69 98 Room Air 12/08/24 06:50 12/08/24 06:50 12/08/24 06:50 12/08/24 06:50 12/08/24 06:50 12/08/24 06:50 Narrative: Pleasant thin male in no acute distress. Asked appropriate questions. His sister is present during the evaluation. Chest wall shows no evidence of prior port placement. A&P - Vascular (1) Rectal cancer: Plan This patient will undergo placement of an Ztkzax-m-Laym. The nature of the procedure was explained to him and I showed him a sample port. We placed on hisright side. Risks including failure the port to function, infection, thrombophlebitis were discussed. Documented By: Stuart Mix MD 12/08/24 093 2 Signed By: 12/08/24 0934 [facility]03-05-2025 Evaluation note* Diagnosis Onset Date Resolution Status Admit Date Rectal cancer acuteMarch 2024 5:58am [facility] Work Phone: 1(342) 643-122703-03-2025 History of Present illness Narrative* Cong Up PA-C - 12/06/2024 10:00 AM EST Images from the original note were not included. PATIENT NAME: Bentley Gonzalez CLINIC NO.: [id number] ATTENDING PHYSICIAN: Hilary Sánchez MD DATE OF SERVICE: 12/06/24 Some of the elements of this note have been copied from Dr. Sánchez's previous progress note dated 11/22/24 . All the information has been reviewed [...] now has large volume stool but still gomultiple times a day. His hematochezia is also [...] 15. - Smokes 1pk for 3 days. 12/06/2024: -Continues to do well with xeloda 1300 mg bid with radiation -denies n/v/d/c/bleeding/mucositis or HFS symptoms -Scheduled with Dr. Singh for port placement 12/08 -finishing xrt on 12/15 Current Outpatient Medications Medication Sig prochlorperazine (COMPAZINE) [...] mouth two times a day with 1 othercapecitabine prescription for 1,300 mg total. No current [...] packs/day: 1.00 Average packs/day: 1 pack/day for 54.2 years (54.2 ttl pk-yrs) Types: Cigarettes Start date: 1970 [...] tingling of hands/feet. No weakness. PHYSICAL EXAMINATION: BP 139/86 Pulse 80 Temp 36.2 C (97.2 F) (Temporal) Resp 16 Ht 171.5 cm (5' 7.52 ) Wt 51.7kg (114 lb) SpO2 100% BMI 17.58 kg/m ECOG PERFORMANCE STATUS: 0- Fully active, able to carry on all pre-disease performance w/o restriction. General: Alert and oriented, no distress, pleasant and cooperative. Heart: Regular, normal S1 and S2, no murmurs, rubs, or gallops Lungs: Clear to auscultation bilaterally Abdomen: Benign Extremities: Feet/ankles without edema, posterior tibial pulses full and symmetrical LABS: Glucose (mg/dL) Date Value 12/06/2024 105 Potassium (mmol/L) Date Value 11/22/2024 4.4 Sodium (mmol/L) Date Value 11/22/2024 138 Chloride (mmol/L) Date Value 11/22/2024 102 CO2 (mmol/L) Date Value 12/06/2024 26 Creatinine (mg/dL) Date Value 12/06/2024 0.78 BUN (mg/dL) Date Value 12/06/2024 10 Anion Gap (mmol/L) Date Value 11/22/2024 10 Calcium, Total (mg/dL) Date Value 12/06/2024 9.2 Protein, Total (g/dL) Date Value 12/06/2024 6.4 Albumin (g/dL) Date Value 12/06/2024 4.1 Bilirubin, Total (mg/dL) Date Value 12/06/2024 0.4 Alkaline Phosphatase (U/L) Date Value 12/06/2024 73 AST (U/L) Date Value 12/06/2024 12 ALT (U/L) Date Value 12/06/2024 10 WBC Date Value Ref Range Status 12/06/2024 5.83 3.70 - 11.00 k/uL Final RBC Date Value Ref Range Status 12/06/2024 4.27 4.20 - 6.00 m/uL Final Hemoglobin Date Value Ref Range Status 12/06/2024 13.8 13.0 - 17.0 g/dL Final Hematocrit Date Value Ref Range Status 12/06/2024 40.3 39.0 - 51.0 % Final MCV Date Value Ref Range Status 12/06/2024 94.4 80.0 - 100.0 fL Final MCH Date Value Ref Range Status 12/06/2024 32.3 26.0 - 34.0 pg Final MCHC Date Value Ref Range Status 12/06/2024 34.2 30.5 - 36.0 g/dL Final RDW-CV Date Value Ref Range Status 12/06/2024 14.8 11.5 - 15.0 % Final Platelet Count Date Value Ref Range Status 12/06/2024 146 (L) 150 - 400 k/uL Final MPV Date Value Ref Range Status 12/06/2024 8.3 (L) 9.0 - 12.7 fL Final Abs Neut Date Value Ref Range Status 12/06/2024 4.12 1.45 - 7.50 k/uL Final Lymphocytes % Date Value Ref Range Status 12/06/2024 8.2 % Final Abs Lymph Date Value Ref Range Status 12/06/2024 0.48 (L) 1.00 - 4.00 k/uL Final Monocytes % Date Value Ref Range Status 12/06/2024 11.8 % Final Abs Crosby Date Value Ref Range Status 12/06/2024 0.69 <0.87 k/uL Final Abs Eosin Date Value Ref Range Status 12/06/2024 0.49 (H) <0.46 k/uL Final Basophils % Date Value Ref Range Status 12/06/2024 0.3 % Final Abs Baso Date Value Ref Range Status 12/06/2024 <0.03 <0.11 k/uL Final PATH: IMAGING: CT chest [...] radiation - Started radiation on 11/08/24. PLAN: -continue xeloda with radiation -finish 3/12 -port 12/08 -he is tolerating treatment well -spent a good amount of time explaining next steps of FOLFOX and the reasoning for a port -return on 12/29 to start FOLFOX [id number] x 8 cycles -Blood work today is unremarkable. - Targeted oncology panel did not show any evidence of actionable mutations. - All his questions answered in detail Cong Up PA-C CC: I spent a total of 31 minutes on the date of the service which included preparing to see the patient, [id number] patient care, completing clinical documentation, performing a medically appropriate examination, counseling and educating the patient/family/caregiver, ordering medications, tests, or p rocedures, independently interpreting results (not separately reported), communicating results to the patient/family/caregiver, and care coordination (not separately reported). documented in this encounterOhiohealth Hardin [facility]03-03-2025 NoteMart[facility]03-03-2025 NoteMart[facility]03-03-2025 History of Present illness Narrative* Sherrie Monson MD - 12/06/2024 9:51 AM EST Radiation Oncology - On Treatment Review (OTR) Note PATIENT NAME: Bentley Gonzalez PATIENT DIAGNOSIS: Locally advanced adenocarcinoma the rectum. COURSE: definitive, pre-operative, and concurrent chemotherapy AREA TREATED: Pelvis/Rectum CURRENT DOSE: 2880 cGy in 16 fx PLANNED DOSE: 5040 cGy in 28 fx SUBJECTIVE: Overall doing well. Had what sounds like a low blood sugar events, went to the ER bloodsugar 156. No other issues. No diarrhea. No blood per rectum. EXAM: 12/06/24 0844 BP: 139/86 Pulse: 80 Resp: 16 Temp: 36.2 C (97.2 F) SpO2: 100% Weight: 52 kg (114 lb 10.2 oz) KPS: 100 General Appearance: Alert and oriented. No acute distress. Radiation dermatitis: No IMAGING/LAB RESULTS: Hemoglobin (g/dL) Date Value 12/06/2024 13.8 Hematocrit (%) Date Value 12/06/2024 40.3 WBC (k/uL) Date Value 12/06/2024 5.83 Platelet Count (k/uL) Date Value 12/06/2024 146 Treatment chart checked: Yes Patient treatment site reviewed and verified:Yes Port films reviewed and current:Yes Medications started: None ASSESSMENT/PLAN: Clinically stable. Continue radiation as outlined. Sherrie Monson MD documented in this encounterOhiohealth Hardin [facility] Hospital02-24-2025 NoteMart[facility]erry [facility]02-24-2025 History of Present illness Narrative* Sherrie Monson MD - 11/29/2024 9:54 AM EST Radiation Oncology - On Treatment Review (OTR) [...] planned. Sherrie Monson MD documented in this encounterOhiohealth Hardin [facility] Hospital02-24-2025 History of Present illness Narrative* Joyce Valles RD - 11/29/2024 9:15 AM EST Oncology Nutrition Therapy Reassessment RECOMMENDED MALNUTRITION DIAGNOSIS: [...] intakes. He is eating a variety of foods.He is still not a big breakfast or [...] Dosing Weight: 53.6 kg Estimated kilocalorie needs: 0966-2555 kilocalories determined by 30-35 kcal/kg Estimated protein needs: 64-80 grams determined by 1.2-1.5 g/kg Dosing weight Estimated fluid needs: ~4306-5916 milliliters based on 1 mL per kcal [...] mouth two times a day with 1 othercapecitabine prescription for 1,300 mg total. 120 tablet 0 No current facility-administered medications for this visit. Need for Follow up: will continue to follow Referred by: Liam SCHUMACHER Billing Type: Re-assess/15 min 2 units Time Spent with Patient: 30 minutes Signed by: Joyce Valles RD, GUM ROLLING MACHINE TENDER, LD documented in this encounterOhiohealth Hardin [facility] Hospital02-24-2025 NoteMart[facility]02-20-2025 Telephone encounter Note* Telephone Encounter - Mariola Ballard RN - 11/25/2024 2:42 PM EST TOXICITY CHECK SYMPTOM ASSESSMENT The patient is [...] medical attention and after hours number protocol. Mariola Ballard RN [facility] Work Phone: [phone] Miscellaneous Notes* Telephone Encounter - Mariola Ballard RN - 11/25/2024 2:42 PM EST TOXICITY CHECK SYMPTOM ASSESSMENT The patient is [...] medical attention and after hours number protocol. Mariola Ballard RN documented in this encounterOhiohealth Hardin [facility] Hospital02-17-2025 Instructions* Patient Instructions* Hilary Sánchez MD - 11/22/2024 9:34 AM EST Continue radiation and Xeloda F/u in 2 weeks documented in this encounterOhiohealth Hardin Memorial Hospital02-17-2025 History of Present illness Narrative* Hilary Sánchez MD - 11/22/2024 9:30 AM EST Images from the original note were not included. PATIENT NAME: Bentley Gonzalez [facility] NO.: [id number] ATTENDING PHYSICIAN: Hilary Sánchez MD DATE OF SERVICE: 11/22/[address] Teresa Tucker [address] [address] [facility] [address] thank you for referring Bentley Gonzalez for [...] now has large volume stool but still gomultiple times a day. His hematochezia is also [...] mouth two times a day with 1 othercapecitabine prescription for 1,300 mg total. No current [...] Range Status 11/08/2024 8.8 % Final Abs Crosby Date Value Ref Range Status 11/08/2024 0.65 [...] - F/u in [address] Teresa Tucker [address] [address] [facility] [address] thank you for allowing me to participate in Bentley Gonzalez care, if there are any questions or concerns please do not hesitate to contact me at the number below. I spent a total of 30 minutes on the date of the service which included preparing to see the patient, [id number] patient care, completing clinical documentation, obtaining and/or reviewing separately obtained history, performing a medically appropriate examination, counseling and educating the pat ient/family/caregiver, ordering medications, tests, or procedures, communicating with other HCPs (not separately reported), independently interpreting results (not separately reported), communicatingresults to the patient/family/caregiver, and care coordination (not separately reported). Hilary Sánchez MD. Hematology/Medical Oncology [facility] [phone] CC: documented in this encounterOhiohealth Hardin [facility] Hospital02-17-2025 NoteMart[facility] Ferry [facility]02-17-2025 NoteMart[facility]02-17-2025 History of Present illness Narrative* Sherrie Monson MD - 11/22/2024 9:10 AM EST Radiation Oncology - On Treatment Review (OTR) [...] planned. Sherrie Monson MD documented in this encounterOhiohealth Hardin [facility] Hospital02-10-2025 Telephone encounter Note * Telephone Encounter - Mariola Ballard RN - 11/15/2024 2:24 PM EST ORAL ANTI-CANCER AGENTS FOLLOW-UP PHONE CALL/VISIT Patient identified by name and date of . YES Patient is on cycle 1, week 1, day 6 of Capecitabine (Xeloda) concurrent with radiation for Colon /Rectal Cancer. SYMPTOM ASSESSMENT Headache: No Visual Changes: [...] instructed to call if unable to comply. Mariola Ballard RN [facility] Work Phone: [phone] Miscellaneous Notes* Telephone Encounter - Mariola Ballard RN - 11/15/2024 2:24 PM EST ORAL ANTI-CANCER AGENTS FOLLOW-UP PHONE CALL/VISIT Patient identified by name and date of . YES Patient is on cycle 1, week 1, day 6 of Capecitabine (Xeloda) concurrent with radiation for Colon /Rectal Cancer. SYMPTOM ASSESSMENT Headache: No Visual Changes: [...] instructed to call if unable to comply. Mariola Ballard RN documented in this encounterOhiohealth Hardin [facility] Hospital02-10-2025 NoteMart[facility]02-10-2025 History of Present illness Narrative* Sherrie Monson MD - 11/15/2024 9:07 AM EST Radiation Oncology - On Treatment Review (OTR) [...] planned. Sherrie Monson MD documented in this encounterOhiohealth Hardin [facility] Hospital02-07-2025 Telephone encounter Note * Telephone Encounter - Viktoriya Causey RN - 11/12/2024 1:53 PM EST Bentley is here for radiation therapy today without c/o a runny nose today or yesterday after treatment. We reviewed that should not be a side effect of radiation therapy but to continue notifying ouroffice with any new concerns or questions. Viktoriya Causey RN [facility]02-07-2025 Miscellaneous Notes* Telephone Encounter - Viktoriya Causey RN - 11/12/2024 1:53 PM EST Bentley is here for radiation therapy today without c/o a runny nose today or yesterday after treatment. We reviewed that should not be a side effect of radiation therapy but to continue notifying ouroffice with any new concerns or questions. Viktoriya Causey RN * Telephone Encounter - Mariola Ballard RN - 11/11/2024 11:46 AM EST Pt calls stating he gets a runny nose after every radiation treatment, and then it goes away after a little while. Pt asking if this it to be expected? Please advise. He will be in for radiation later today if someone wants to answer this for him then. Thanks Mariola Ballard RN documented in this encounterOhiohealth Hardin [facility] Hospital02-06-2025 Telephone encounter Note * Telephone Encounter - Mariola Ballard RN - 11/11/2024 11:46 AM EST Pt calls stating he gets a runny nose after every radiation treatment, and then it goes away after a little while. Pt asking if this it to be expected? Please advise. He will be in for radiation later today if someone wants to answer this for him then. Thanks Mariola Ballard, RN [facility] Work Phone: [phone] Telephone encounter Note* Telephone Encounter - Gia Alves - 11/09/2024 3:38 PM EST Jena called back and states she talked with patient and he has been scheduled for port placement on December 08 at 8 am. Gia Alves [facility]02-04-2025 Miscellaneous Notes* Telephone Encounter - Gia Alves - 11/09/2024 3:38 PM EST Jena called back and states she talked with patient and he has been scheduled for port placement on December 08 at 8 am. Gia Alves * Telephone Encounter - Gia Alves - 11/09/2024 1:04 PM EST Left message on Jena's VM for update of port placement date. Gia Alves * Telephone Encounter - Gia Alves - 11/08/2024 12:55 PM EST Faxed port request to Jena @ Dr. Mix's office November 08, 2024 12:56 PM * Telephone Encounter - Gia Alves - 11/08/2024 10:01 AM EST Referring patient for port placement. Thanks Shirin! Gia Alves documented in this encounterOhiohealth Hardin [facility] Hospital02-04-2025 Telephone encounter Note * Telephone Encounter - Gia Alves - 11/09/2024 1:04 PM EST Left message on [employer] for update of port placement date. Gia Alves [facility]02-04-2025 NoteCCF REFERRAL FOR ADDITIONAL BIOMARKER AND MOLECULAR TESTINGCoastal Carolina Hospitalment on above:Request has been received for evaluation and the results will be issued separately. 11-08-2024 [facility] History of Present illness Narrative* Michael Martin MD - 11/08/2024 11:21 PM EST Radiation Oncology - On Treatment Review (OTR) Note PATIENT NAME: Bentley Gonzalez PATIENT DIAGNOSIS: Locally advanced adenocarcinoma the rectum. COURSE: definitive, pre-operative, and concurrent chemotherapy AREA TREATED: Pelvis/Rectum CURRENT DOSE: 1080 cGy in 6 fx PLANNED DOSE: 5040 cGy in 28 fx SUBJECTIVE: Tolerating XRT well and denies any pain/discomfort in the pelvis or with bowel movements stool or straining. He denies any nausea or skin irritation/breakdown. He endorsed stable energy appetite and hydration with stable weight. EXAM: KPS: 90 General Appearance: Alert and oriented. No acute distress. Radiation dermatitis: No IMAGING/LAB RESULTS: None Treatment chart checked: Yes Patient treatment site reviewed and verified:Yes Port films reviewed and current:Yes Medications started: None ASSESSMENT/PLAN: Clinically stable. Toxicity within expected parameters. Continue radiation treatment as planned. Michael Martin MD documented in this encounterOhiohealth [facility]02-03-2025 Telephone encounter Note * Telephone Encounter - Gia Alves - 11/08/2024 12:55 PM EST Faxed port request to Jena @ Dr. Mix's office November 08, 2024 12:56 PM [facility]02-03-20[facility] Telephone encounter Note* Telephone Encounter - Gia Alves - 11/08/2024 10:01 AM EST Referring patient for port placement. Thanks Shirin! Gia Alves [facility]02-03-2025 Instructions* Patient Instructions* Hilary Sánchez MD - 11/08/2024 9:46 AM EST Ordered port placement Start xeloda F/u in 2 weeks documented in this encounterOhiohealth Hardin [facility]02-03-2025 [facility] History of Present illness Narrative* Mariola Ballard RN - 11/08/2024 9:43 AM EST ORAL ANTI-CANCER AGENTS EDUCATION patient and spouse [...] learning: None Physical limitation affecting learning: None GREEN ASSESSMENT: 1.) Verified that patient knows that [...] investigation and refill process. Yes Filling at [facility] DRUG-SPECIFIC EDUCATION: 1.) Verified patient knows the [...] provide reinforcement of teaching topics as needed. Mariola Ballard RN * Alejandra Everett [facility] - 11/08/2024 9:00 AM EST Images from the original note were not included. [facility] Department of Pharmacy Oncology Pharmacy Medication Education Patient Name: Bentley Gonzalez Primary Oncologist: Gonzalo Diagnosis: Rectal Ca Bentley Gonzalez is a 64 year old patient and spouse here today for medication education for PO Capecitabine (Xeloda). Drug Interactions: Clinically significant interactions with chemotherapy, immunosuppression, or other standard of caretreatment plan medications anticipated: No. There are no [...] mouth two times a day with 1 othercapecitabine prescription for 1,300 mg total. iv contrast [...] administration guidelines link.(Patient not taking: Reported on 10/18/2024) enteric contrast [...] (15 minute increments) with the patient George Yovani Everett Pager: documented in this encounterOhiohealth Hardin [facility] Hospital02-03-2025 Miscellaneous Notes* Addendum Note - Alejandra Everett RPh - 11/08/2024 9:00 AM ESTAddended by: ALEJANDRA EVERETT on: 11/08/2024 10:10 AM Modules accepted: Orders documented in this encounterOhiohealth Hardin [facility] Hospital02-03-2025 Note* Addendum Note - Alejandra Everett RPh - 11/08/2024 9:00 AM ESTAddended by: ALEJANDRA EVERETT on: 11/08/2024 10:10 AM Modules accepted: Orders [facility]02-03-2025 [facility]02-03-[facility] History of Present illness Narrative* Hilary Sánchez MD - 11/08/2024 8:30 AM EST Images from the original note were not included. PATIENT NAME: Bentley Gonzalez [facility] NO.: [id number] ATTENDING PHYSICIAN: Hilary Sánchez MD DATE OF SERVICE: 11/08/[address] Teresa Tucker [id number] [address] [facility] [address] thank you for referring Bentley Gonzalez for [...] now has large volume stool but still gomultiple times a day. His hematochezia is also [...] mouth two times a day with 1 othercapecitabine prescription for 1,300 mg total. iv contrast [...] administration guidelines link.(Patient not taking: Reported on 10/18/2024) enteric contrast [...] Range Status 10/18/2024 6.9 % Final Abs Crosby Date Value Ref Range Status 10/18/2024 0.57 [...] - F/u in [address] Teresa Tucker [id number] [address] [facility] [address] thank you for allowing me to participate in Bentley Gonzalez care, if there are any questions or concerns please do not hesitate to contact me at the number below. I spent a total of 30 minutes on the date of the service which included preparing to see the patient, [id number] patient care, completing clinical documentation, obtaining and/or reviewing separately obtained history, performing a medically appropriate examination, counseling and educating the pat ient/family/caregiver, ordering medications, tests, or procedures, communicating with other HCPs (not separately reported), independently interpreting results (not separately reported), communicatingresults to the patient/family/caregiver, and care coordination (not separately reported). Hilary Sánchez MD. Hematology/Medical Oncology [place] [address] [phone] CC: documented in this encounterOhiohealth Hardin Memorial Hospital02-03-2025 [facility]Mart[facility]01-31-2025 Telephone encounter Note* Telephone Encounter - Mariola Ballard RN - 11/05/2024 12:23 PM EST Pt will be in for chemo ed on Friday. Please sign pending orders. Thanks Mariola Ballard RN [facility]01-31-2025 Miscellaneous Notes* Telephone Encounter - Mariola Ballard RN - 11/05/2024 12:23 PM EST Pt will be in for chemo ed on Friday. Please sign pending orders. Thanks Mariola Ballard RN documented in this encounterOhiohealth Hardin Memorial Hospital01-30-2025 History of Present illness Narrative* Teresa Tucker MD - 11/04/2024 1:00 PM EST [facility] NOTE November 04, 2024 Bentley Gonzalez 64 year old VIRTUAL VISIT I have communicated my name and active licensure. The patient's identity and physical location wereverified at the time of this visit. Either the patient or their legal training representative has been informed of the risks and benefits of -- and alternatives to -- treatment through a remote evaluation andconsents to proceed with the evaluation remotely. Chief Complaint: rectal cancer Brief History: Bentley Gonzalez is a 64 year old man with an endoscopcially obstructing distal rectal rectal cancer.Here for follow up Medical oncology - Dr. [...] mouth two times a day with 1 othercapecitabine prescription for 1,300 mg total. 120 tablet [...] administration guidelines link.(Patient not taking: Reported on 10/18/2024) 1 Each [...] firm, circumferential rectal mass, likely carcinoma. Pediatric scopecould not be advanced past the mass. - [...] with an endoscopcially obstructing distal rectal rectal cancer.We reviewed imaging and discussed treatment of CAR for his locally advanced rectal cancer. Treatment timeline reviewed Discussed post-treatment option of W+W if complete response vs. 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 Risa Govea MA * Telephone Encounter - Karlie Prather MA - 11/02/2024 3:37 PM EST [employer] policy paperwork completed and put in Dr Sánchez's folder for signature.Karlie Prather MA documented in this encounterOhiohealth Hardin [facility] Hospital01-28-2025 Telephone encounter Note * Telephone Encounter - Karlie Prather MA - 11/02/2024 3:37 PM EST [employer] policy paperwork completed and put in Dr Sánchez's folder for signature.Karlie Prather MA [facility]01-27-2025 History of Present illness Narrative* Hilary Sánchez MD - 11/01/2024 2:00 PM EST Images from the original note were not included. PATIENT NAME: eBntley Gonzalez CLINIC NO.: [id number] ATTENDING PHYSICIAN: Hliary Sánchez MD DATE OF SERVICE: November 01, [address] [facility] [address] [facility] [address] thank you for referring Bentley Gonzalez for [...] now has large volume stool but still gomultiple times a day. His hematochezia is also [...] administration guidelines link.(Patient not taking: Reported on 10/18/2024) enteric contrast [...] Range Status 10/18/2024 6.9 % Final Abs Crosby Date Value Ref Range Status 10/18/2024 0.57 [...] - F/u in [address] Teresa Tucker [id number] [address] [facility] [address] thank you for allowing me to participate in [facility], if there are any questions or concerns please do not hesitate to contact me at the number below. I spent a total of 30 minutes on the date of the service which included preparing to see the patient, [id number] patient care, completing clinical documentation, obtaining and/or reviewing separately obtained history, performing a medically appropriate examination, counseling and educating the pat ient/family/caregiver, ordering medications, tests, or procedures, communicating with other HCPs (not separately reported), independently interpreting results (not separately reported), communicatingresults to the patient/family/caregiver, and care coordination (not separately reported). Hilary Sánchez MD. Hematology/Medical Oncology [facility] [place] [address] [phone] CC: documented in this encounterOhiohealth Hardin Memorial Hospital01-27-2025 [facility]01-27-2025 Instructions* Patient Instructions* Hilary Sánchez MD - 11/01/2024 1:57 PM EST Chemo teach for xeloda Starting radiation on 11/08/24 Will start xeloda on 11/08/24 F/u on 11/08/24 documented in this encounterOhiohealth Hardin Memorial Hospital01-24-2025 NoteHNO ID: [id number] Author: ANABELL ISSA, food safety field specialist Service: Radiology Author Type: Branch Operations Manager Type: Progress Notes Filed: 10/29/2024 11:48 Note [...] PATIENT PRESENTS WITH AN IMPLANTABLE OR ATTACHED BIT GRINDER: No ALLERGIES: Reviewed and unchanged CONTRAST ALLERGY: NO. EXAM: MRI - CONTRAST TYPE: GROUP II PERIPHERAL IV DATA: Ambulatory: A peripheral IV was started in the Right antecubital site with a Butterfly: 23 gauge. RADIOLOGY DEPARTMENT: MR; Exam(s) Completed: Body: Rectal SIGNATURE: Anabell Issa food safety field specialist PATIENT NAME: Bentley Gonzalez DATE: October 29, 2024 TIME: 11:47 [facility]01-22-2025 Instructions* Patient Instructions* Joyce Valles RD - 10/27/2024 3:23 PM [...] avocado, peanut butter, etc. documented in this encounterOhiohealth Hardin Memorial Hospital01-22-2025 History of Present illness Narrative* Regla Harris RN - 10/27/2024 8:15 AM EST Radiology Service Progress Note DATE OF SERVICE: [...] creatinine assay has traceable calibration to isotope dilution- mass spectrometry. Refer to KDIGO guidelines for clinical interpretation. In patients with unstable renal function, e.g. those with acute kidney injury, the eGFRmay not accurately reflect actual GFR. P.O.C.T. RESULTS: POC done: Yes, See Lab Tab October 18, 2024 TREATMENT: N/A IV SITE: Ambulatory: A peripheral IV was started in the Right forearm with a Angio cath: 20 gauge. IV SITE APPEARANCE: Clean,Dry and Intact SIGNATURE: Regla Harris RN PATIENT NAME: Bentley Gonzalez DATE: October 27, 2024 TIME: 8:41 AM * Dari Mcguire, RT(R) - 10/27/2024 8:15 AM EST Radiology Service Progress Note PATIENT NAME: Bentley Gonzalez DATE OF SERVICE: October 27, 2024 TIME: 9:03 AM PATIENT IDENTITY VERIFICATION COMPLETED USING TWO (2) IDENTIFIERS: Name and Date of confirmedby patient verbally. FALL SCREENING: Has the patient had 2 falls in the last year or 1 fall with injury or currently using an Ambulatory Assistive Device (Walker, Cane, Wheelchair, Crutches, etc.)? No PATIENT GENDER DATA: Assigned male at PATIENT RELEVANT IMPLANT DATA REVIEWED: Not Applicable PATIENT PRESENTS WITH AN IMPLANTABLE OR ATTACHED BIT GRINDER: No RADIOLOGY DEPARTMENT: CT; Exam(s) Completed: Chest Abdomen Pelvis PERIPHERAL IV DATA: Site assessment: Clean,Dry and Intact, Site disposition Discontinued SIGNED BY: RT Cheyenne(R) October 27, 2024 9:03 AM documented in this encounterOhiohealth Hardin Memorial Hospital01-22-2025 [facility]Mart[facility]01-22-2025 NoteMart[facility]01-22-2025 NoteMart[facility]01-22-2025 History of Present illness Narrative* Joyce Valles RD - 10/27/2024 8:12 AM EST Oncology Nutrition Therapy Initial Assessment I have communicated my name and active licensure. The patient's identity and physical location wereverified at the time of this visit. Either the patient or their legal training representative has been informed of the risks and benefits of -- and alternatives to -- treatment through a remote evaluation andconsents to proceed with the evaluation remotely. RECOMMENDED [...] anything and everything all the day. 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 [...] Dosing Weight: 52.2 kg Estimated kilocalorie needs: 5055-4989 kilocalories determined by 30-35 kcal/kg Estimated protein needs: 63-78 grams determined by 1.2-1.5 g/kg Dosing weight Estimated fluid needs: ~1394-0796 milliliters based on 1 mL per kcal (unless otherwise indicated) Nutrition Focused Physical Exam: Unable to perform exam due to patient unable to participate due toencounter type (phone), will re-attempt during reassessment. Potential [...] administration guidelines link.(Patient not taking: Reported on 10/18/2024) 1 Each [...] 30 minutes Signed by: Joyce Valles RD, GUM ROLLING MACHINE TENDER, LD documented in this encounterOhiohealth Hardin Memorial Hospital01-21-2025 [facility]Mart[facility]erry [facility]01-21-2025 History of Present illness Narrative* Sandhya Kim LSW - 10/26/2024 11:45 AM EST SOCIAL WORK FOLLOW UP NOTE: [facility] Date of service:10/26/24 Bentley Gonzalez is being seen for a follow up social work visit. Today's visit includes: patient TOPICS ADDRESSED: community resources PLAN: Assist with financial support applications and Continue follow up as needed Assigned SW listed in Care Team tab: Yes Patient requested to speak with this SW. Patient brought in a form from [employer] [facility] and asked if this SW would complete the medical authorization section. Section was completed and the intake form was faxed to [facility]. Patient was given the original form. No other needs or concerns were identified. SW will remain available and will follow up as appropriate. SEBASTIAN Cosby Goals of Care Advance Directives are not on file. documented in this encounterOhiohealth Hardin Memorial Hospital01-21-2025 NoteHNO ID: [id number] Author: Sherrie MONSON MD Service: ? Author Type: Physician Type: Progress Notes Filed: 10/26/2024 12:34 Note Text: [facility]01-21-2025 History of Present illness Narrative* Sherrie Monson MD - 10/26/2024 10:07 AM EST sim documented in this encounterOhiohealth Hardin Memorial Hospital01-21-2025 NoteHNO ID: [id number] Author: Sherrie MONSON MD Service: ? Author Type: Physician Type: Progress Notes Filed: 10/26/2024 12:33 Note Text: [facility]01-21-2025 History of Present illness Narrative* Sherrie Monson MD - 10/26/2024 10:03 AM EST sim documented in this encounterOhiohealth Hardin Memorial Hospital01-21-2025 History of Present illness Narrative* Sherrie Monson MD - 10/26/2024 12:00 AM EST BENTLEY GONZALEZ [id number] 10/26/2024 [facility] Radiation Oncology Department SIMULATION NOTE DATE OF SIMULATION: 10/26/2024 THERAPIST: Magalis Grace MACHINE: Forrst DIAGNOSIS: Malignant neoplasm of [id number] AREA: Pelvis CONTRAST: None Consent in Epic: [...] the first treatment of primary and boost ambrose if applicable. Patient education will be completed per nursing. Electronically Signed Jack Monson M.D. / CDT 53:41 PM documented in this encounterOhiohealth Hardin Memorial Hospital01-21-2025 History of Present illness Narrative* Sherrie Monson MD - 10/26/2024 12:00 AM EST BENTLEY GONZALEZ [id number] 10/26/2024 [facility] Department of Radiation Oncology Treatment Planning Note For reasons stated in the consult note, Bentley Gonzalez is a candidate for radiation therapy. Based on review and interpretation of the relevant diagnostic studies together with the exam findings, Bentley Gonzalez was simulated on 10/26/2024 at which time the target volume and/or requisite ambrose were d elineated, as indicated in the simulation note, to [...] 98.5% isodose line with 10MV and 3 ambrose. Custom MLC asym jaws forIMRT were the treatment devices used to shape/modify the beams. Limiting dose to normal tissue was confirmed upon review of the calculated dose volume histogram. IMRT planning was used because it best met the dose/volume constraints for the organs at risk for this patient, better than what could be achieved using conventional or 3D planning. The specific doserequirements for the PTV, organs at risk and dose-volume histograms are contained in this treatmentplan and/or elsewhere in the medical record. A completed summary of this plan dated 11/04/2024 incorporated herein by reference includes dose, beam arrangements, energy, blocking, isodose distribution, and/or ports and DVH. Electronically Signed Jack Monson M.D. 2:36 PM documented in this encounterOhiohealth Hardin Memorial Hospital01-21-2025 NoteMart[facility]01-21-2025 NoteMart[facility]01-14-2025 Telephone encounter Note* Telephone Encounter - Clover Khalil - 10/19/2024 3:49 PM EST Spoke to Sancho Hagan scheduled 10/26 arrival at 1015 with a full bladder [facility]01-14-2025 Miscellaneous Notes* Telephone Encounter - Clover Khalil - 10/19/2024 3:49 PM EST Spoke to Sancho Hagan scheduled 10/26 arrival at 1015 with a full bladder * Telephone Encounter - Eva Gibson RT(R) - 10/19/2024 3:00 PM EST Sim scheduled at 11:00 on 10/26/24 PSS - Please add sim to ct scanner schedule at 11:00 x 45 min (SIM PRONE PELVIS) - Schedule presim consent with ELISEO at 1030 - Notify pt of 1015 arrival time, full bladder Thanks! Eva Gibson RT(R) (T) * Telephone Encounter - Clover Khalil - 10/18/2024 10:15 AM EST Nurse Ed Scheduled * Telephone Encounter - Viktoriya Causey RN - 10/18/2024 10:06 AM EST PSS/RT: Please schedule SIM treating pelvis with full bladder-next wk Needs Presim consent Nurse Ed today Consult Dieitican Thanks Viktoriya Causey, RN documented in this encounterOhiohealth Hardin Memorial Hospital01-14-2025 Telephone encounter Note * Telephone Encounter - Eva Gibson RT(R) - 10/19/2024 3:00 PM EST Sim scheduled at 11:00 on 10/26/24 PSS - Please add sim to ct scanner schedule at 11:00 x 45 min (SIM PRONE PELVIS) - Schedule presim consent with ELISEO at 1030 - Notify pt of 1015 arrival time, full bladder Thanks! RT Citlalli(R) (T) [facility] Work Phone: [phone]) 195-335101-13-2025 History of Present illness Narrative* Hilary Sánchez MD - 10/18/2024 11:00 AM EST Images from the original note were not included. PATIENT NAME: Bentley Gonzalez CLINIC NO.: [id number] ATTENDING PHYSICIAN: Hilary Sánchez MD DATE OF SERVICE: October 18, [address] Teresa Tucker [id number] [address] [facility] [address] thank you for referring Bentley Gonzalez for [...] now has large volume stool but still gomultiple times a day. His hematochezia is also [...] - F/u in [address] Teresa Paldenisse [address] [address] [facility] [address] thank you for allowing me to participate in Bentley Gonzalez care, if there are any questions or concerns please do not hesitate to contact me at the number below. I spent a total of 60 minutes on the date of the service which included preparing to see the patient, [id number] patient care, completing clinical documentation, obtaining and/or reviewing separately obtained history, performing a medically appropriate examination, counseling and educating the pat ient/family/caregiver, ordering medications, tests, or procedures, communicating with other HCPs (not separately reported), independently interpreting results (not separately reported), communicatingresults to the patient/family/caregiver, and care coordination (not separately reported). Hilary Sánchez MD. Hematology/Medical Oncology [facility] [phone] CC: documented in this encounterOhiohealth Hardin Memorial Hospital01-13-2025 [facility]Mart[facility]01-13-2025 Instructions* Patient Instructions* Hilary Sánchez MD - 10/18/2024 10:58 AM EST Labs today Scans scheduled next week F/u in 2 weeks documented in this encounterOhiohealth Hardin Memorial Hospital01-13-2025 [facility]Mart[facility]01-13-2025 History of Present illness Narrative* Viktoriya Causey RN - 10/18/2024 10:28 AM EST Radiation Therapy - Patient Education Note PATIENT NAME: Bentley Gonzalez PATIENT October 18, 2024 [facility] FACILITY/LOCATION: [facility] READINESS TO LEARN Cognitive Ability: Alert and [...] and family verbalized understanding of radiation treatments, sideeffects, OTV, and transportation. Follow-up plan: Patient instructed to call with any further issues Recommend - Recommend continued instruction and follow up as directed Contact information given. Supplemental material: Informational handouts on Bladder function, Diarrhea, Fatigue, Pelvic handout, Skin changes, and patient education binder. Referral (recommendation): Dietitian Was PED reviewed? No Patient has an Onbody or Implanted device: No Signed by: Viktoriya Causey RN documented in this encounterOhiohealth Hardin Memorial Hospital01-13-2025 Telephone encounter Note * Telephone Encounter - Clover Khalil - 10/18/2024 10:15 AM EST Nurse Ed Scheduled [facility]01-13-2025 Telephone encounter Note* Telephone Encounter - Viktoriya Causey RN - 10/18/2024 10:06 AM EST PSS/RT: Please schedule SIM treating pelvis with full bladder-next wk Needs Presim consent Nurse Ed today Consult Dieitican Thanks Viktoriya Causey RN [facility]01-13-2025 History of Present illness Narrative* Sherrie Monson MD - 10/18/2024 10:00 AM EST Radiation Oncology - New Patient/Consult Note PATIENT NAME: Bentley Gonzalez PATIENT REQUESTING PROVIDER: Teresa Tucker MD OTHER PROVIDERS: Dr. Clemente, Dr. Torres, Dr. Sánchez DIAGNOSIS: Rectal cancer,, adenocarcinoma, locally [...] the finding of a rectal mass follow-up ondigital rectal exam endoscopy. Colonoscopy 09/24/2024: Firm circumferential [...] in the management of his newly diagnosed locallyadvanced rectal cancer. He denies any further bleeding of the past couple weeks. Is doing better onMiraLAX in terms of having bowel movements. Occasional [...] cm (5' 7.5 ) Wt 52.2 kg (115lb 1.3 oz) SpO2 99% BMI 17.76 kg/m [...] whose address you want to display, e.g., .PROVADDR[1(where 1 is the provider ID). Teresa Tucker [id number] [address] [facility] [address] * Viktoriya Causey RN - 10/18/2024 9:45 AM EST Pacemaker/Defibrillator?N Previous Cancer(s)?N Previous Radiation?N Lupus/Scleroderma?N On body monitoring device?N Viktoriya Causey RN documented in this encounterOhiohealth Hardin [facility] Hospital01-13-2025 NoteMart[facility]01-13-2025 NoteMart[facility]01-09-2025 Telephone encounter Note* Telephone Encounter - Teresa Tucker MD - 10/14/2024 4:17 PM EST Updated pt on the result of path showing adenocarcinoma. Imaging still pending. Will proceed with med/onc and rad/onc referral [facility]01-09-2025 Miscellaneous Notes* Telephone Encounter - Teresa Tucker MD - 10/14/2024 4:17 PM EST Updated pt on the result of path showing adenocarcinoma. Imaging still pending. Will proceed with med/onc and rad/onc referral [facility] Telephone encounter Note * Telephone Encounter - Mily Lynch RN - 10/14/2024 10:46 AM EST Call placed to [facility] Clemente office re: obtaining copy of pathology from 09/27 colonoscopy/rectal mass. [phone] They state that they have not received it yet. They have called twice to pathology office and stillnot completed. Dr Clemente' office has fax number to send sami once completed. Office staff alerted to inform Dr Tucker once scanned in. [facility]01-09-2025 Miscellaneous Notes* Telephone Encounter - Mily Lynch RN - 10/14/2024 10:46 AM EST Call placed to [facility] Clemente office re: obtaining copy of pathology from 09/27 colonoscopy/rectal mass. [phone] They state that they have not received it yet. They have called twice to pathology office and stillnot completed. Dr Clemente' office has fax number to send sami once completed. Office staff alerted to inform Dr Tucker once scanned in. documented in this encounterOhio[facility] History of Present illness Narrative* Teresa Tucker MD - 10/07/2024 9:00 AM EST COLORECTAL SURGERY CLINIC NOTE October 07, 2024 Bentley Gonzalez 64 year old This consult was requested by Dr. Clemente and my final recommendations will be communicated to the requesting health care provider by way of the shared medical record for internal providers or letter via the [facility] [employer] for external providers. Chief Complaint: [...] now has large volume stool but still gomultiple times a day. His hematochezia is also [...] protocol in the CT contrast administration guidelines link.1 Each 0 enteric contrast (will be provided [...] or fissure. Digital rectal exam reveals firm masspalpated anteriorly, with inferior edge ~1cm from anorectal ring. Exam limited due to discomfort Lens Mounter present: Yes The sensitive examination was discussed with the Patient or Patient's Authorized Tapping Machine Operator Automatic. Asapplicable, any other physician, advance practice provider, medical student, or other health professional student that will be observing or involved in the sensitive examination for educational or training purposes was discussed with the Patient or Authorized Tapping Machine Operator Automatic. The Patient or Authorized Tapping Machine Operator Automatic has agreed to proceed with the sensitive examination. (Sensitive examination includes inspection and/or palpation of the breasts, pelvis, prostate and anorectal regions) Colonoscopy 09/24/24 - Dr. Clemente Scan on 10/04/2024 11:25 AM by Provider, External, PA-C: Miscellaneous Procedures - Digital rectal exam revealed firm, circumferential rectal mass, likely carcinoma. Pediatric scopecould not be advanced past the mass. - [...] able to be traversed and he is havingclinical symptoms indicating impeding obstruction, he will most [...] morbidity, mortality and/or complications of treatment plan: moderate Teresa Tucker MD Colorectal Surgery documented in this encounterOhio[facility] History of Present illness Narrative* Adonay Cleaning MD - 10/01/2024 9:00 AM EST Images from the original note were not [...] colon (CMS/HCC) Patient will be referred to [facility] as well as [facility] colorectal surgery. documented in this encounterEllett Memorial [id number] History of Present illness Narrative* Rashaun Torres MD - 09/14/2024 4:25 PM ESTAssociated Problem(s): Unspecified protein-calorie malnutrition (CMS/HCC) Supplement shake encouraged * Rashaun Torres MD - 09/14/2024 4:24 PM ESTAssociated Problem(s): Smoker Discussed smoking cessation with the patient. Encouraged patient to try to cut back gradually and soon quit smoking. Discussed ways to quit smoking including gum, patches, medication, and gradually reducing the number of cigarettes smoked daily. 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 Patient voiced understanding. Benefits of cessation, both health and financial, were reviewed. * Rashaun Torres MD - 09/14/2024 4:23 PM ESTAssociated Problem(s): Type 2 diabetes mellitus with diabetic [...] and importance of healthy diet and exercise. * Rashaun Torres MD - 09/14/2024 4:23 PM ESTAssociated Problem(s): Medicare annual wellness visit, initial Colonoscopy [...] Ultrasound of Aorta to screen for Anuerysm * Rashaun Torres MD - 09/14/2024 4:15 PM EST Images from the original note were not [...] Negative for abdominal pain, blood in stool, diarrhea,nausea and vomiting. Genitourinary: Negative for dysuria, enuresis, frequency and hematuria. Musculoskeletal: Positive for back pain. Negative for joint swelling. Neurological: Negative for dizziness, tremors, syncope, facial asymmetry and speech difficulty. Psychiatric/Behavioral: Negative for agitation, behavioral problems, confusion and dysphoric mood. The patient is not nervous/anxious. List of current healthcare providers: Patient Care Team: Rashaun Torres MD as PCP - General (Family Medicine) Rashaun Torres MD as PCP - Amada BLACK Medicare [...] by direct observation Three Word Registration: Banana, [place], Chair Clock Drawing: Normal Clock - 2 Three Word Recall: All 3 words correct - 3 Total Score (0-5 Points): 5 Pain Assessment Pain Score: 0 - No pain Advance Care Planning Do you have a living will?: No Do you have a medical power of staff attorney?: No Objective : BP 122/74 Pulse 107 [...] requisition? Answer: No Electronically signed by Rashaun Torres MD on September 14, 2024 documented in this encounterEllett Memorial [id number] History of Present illness Narrative* Adonay Cleaning MD - 09/07/2024 2:00 PM EST Images from the original note were not included. Bentley Rader Lisa 1960 Bentley Rader Lisa is a 64 y.o. male presents with chief complaint of Consult (Past couple months. Change in bowels, Blood in stool, constipation - Ref Rashaun Torres--No colonoscopy, poss. Had BE several yrs ago at [place].) HPI: The patient is a 64-year-old male [...] noticed some blood in the stool. He d enies abdominal pain. Denies vomiting. He has been eating well. Weight has been stable. He denies family history for colon cancer. Has never had a colonoscopy. SUBJECTIVE: MEDICATIONS: ALLERGIES No current outpatient medications No Known Allergies PAST MEDICAL HISTORY: SOCIAL HISTORY SURGICAL HISTORY: Past Medical History: Diagnosis Date Diabetes mellitus ([facility]) Type 2 diabetes mellitus with diabetic neuropathy ([facility]) 08/04/2023 Social History Tobacco Use Smoking status: [...] colonoscopy in 10 years. documented in this encounterEllett Memorial [id number] History of Present illness Narrative* Rashaun Torres MD - 08/02/2024 3:06 PM EDTAssociated Problem(s): Slow transit constipation Add Senokot S every Day Increase water 48 oz * Rashaun Torres MD - 08/02/2024 2:52 PM EDTAssociated Problem(s): Type 2 diabetes mellitus with diabetic [...] and importance of healthy diet and exercise. * Rashaun Torres MD - 08/02/2024 2:52 PM EDTAssociated Problem(s): Benign essential hypertension (CMS/HCC) Our specific [...] taking them as prescribed. DASH diet handouts * Rashaun Torres MD - 08/02/2024 2:45 PM EDT Images from the original note were not [...] No follow-ups on file. documented [facility]* Diagnosis Type 2 diabetes mellitus [...] without long-term current use of insulin (CMS/HCC) Encounter for screening for lung cancer Encounter for abdominal aortic aneurysm (AAA) screening Type 2 diabetes mellitus with diabetic neuropathy, without long-term current use of insulin (CMS/HCC)- Primary Benign essential hypertension (CMS/HCC) Essential hypertension, benign Slow transit constipation Blood in stool documented in this encounter [facility]* Diagnosis Type 2 diabetes mellitus with diabetic neuropathy, without long-term current use of insulin (CMS/HCC)- Primary Elevated blood sugar Other abnormal glucose Smoker Tobacco use disorder Routine general medical examination at health care facility- Primary Routine general medical examination at a [facility] care facility Benign essential hypertension (CMS/HCC) Essential hypertension, benign Abnormal glucose tolerance test Impaired glucose tolerance test Nocturia Screening for malignant neoplasm of colon Medicare annual wellness visit, initial Screening for lipid disorders Type 2 diabetes mellitus with diabetic neuropathy, without long-term current use of insulin (CMS/HCC) Encounter for screening for lung cancer Encounter for abdominal aortic aneurysm (AAA) screening Type 2 diabetes mellitus with diabetic neuropathy, without long-term current use of insulin (CMS/HCC)- Primary Benign essential hypertension (CMS/HCC) Essential hypertension, benign Slow transit constipation Blood in stool Change in bowel habits- Primary Other symptoms involving digestive system Blood in stool Slow transit constipation documented in this encounter [facility]* [...] neuropathy, without long-term current use of insulin ([facility]) Encounter for screening for lung cancer Encounter for abdominal aortic aneurysm (AAA) screening Type 2 diabetes mellitus with diabetic neuropathy, without long-term current use of insulin ([facility])- Primary Benign essential hypertension (CMS/HCC) Essential hypertension, benign Slow transit constipation Blood in stool Routine general medical examination at health care facility- Primary Routine general medical examination at a health care facility Abnormal glucose tolerance test Impaired glucose tolerance test Benign essential hypertension (CMS/HCC) Essential hypertension, benign Nocturia Type 2 diabetes mellitus with diabetic neuropathy, without long-term current use of insulin ([facility]) Medicare annual wellness visit, initial Screening for lipid disorders Myalgia Unspecified myalgia and myositis Smoker Tobacco use disorder Unspecified protein-calorie malnutrition ([facility]) Unspecified protein-calorie malnutrition Immunodeficiency due to conditions classified elsewhere ([facility]) Cigarette smoker Tobacco use disorder [facility]* Diagnosis Type 2 diabetes mellitus with diabetic neuropathy, without long-term current use of insulin ([facility])- Primary Elevated blood sugar Other abnormal glucose Smoker Tobacco use disorder Routine general medical examination at health care facility- Primary Routine general medical examination at a [facility] care facility Benign essential hypertension (CMS/HCC) Essential hypertension, benign Abnormal glucose tolerance test Impaired glucose tolerance test Nocturia Screening for malignant neoplasm of colon Medicare annual wellness visit, initial Screening for lipid disorders Type 2 diabetes mellitus with diabetic neuropathy, without long-term current use of insulin ([facility]) Encounter for screening for lung cancer Encounter for abdominal aortic aneurysm (AAA) screening Type 2 diabetes mellitus with diabetic neuropathy, without long-term current use of insulin ([facility])- Primary Benign essential hypertension (CMS/HCC) Essential hypertension, benign Slow transit constipation Blood in stool Routine general medical examination at health care facility- Primary Routine general medical examination at a health care facility Abnormal glucose tolerance test Impaired glucose tolerance test Benign essential hypertension (CMS/HCC) Essential hypertension, benign Nocturia Type 2 diabetes mellitus with diabetic neuropathy, without long-term current use of insulin ([facility]) Medicare annual wellness visit, initial Screening for lipid disorders Myalgia Unspecified myalgia and myositis Smoker Tobacco use disorder Unspecified protein-calorie malnutrition (CMS/HCC) Unspecified protein-calorie malnutrition Immunodeficiency due to conditions classified elsewhere (CMS/HCC) Cigarette smoker Tobacco use disorder Obstruction of rectum- Primary Rectal cancer (CMS/HCC) Malignant neoplasm of rectum Malignant neoplasm of colon, unspecified part of colon (CMS/HCC) documented [facility] encounter [facility]* Diagnosis Rectal mass- Primary Other symptoms involving digestive system [facility] Diagnosis Rectal cancer (HCC)- Primary Malignant neoplasm of rectum documented [facility]* Diagnosis Rectal cancer (HCC)- Primary Malignant neoplasm of rectum [facility]* Diagnosis Rectal cancer (HCC) Malignant neoplasm of rectum documented [facility]* Diagnosis Rectal cancer (HCC)- Primary Malignant neoplasm of rectum [facility] Diagnosis Rectal cancer (HCC)- Primary Malignant neoplasm of rectum documented [facility]* Diagnosis Rectal cancer (HCC)- Primary Malignant neoplasm of rectum documented [facility]* Diagnosis Rectal cancer (HCC) Malignant neoplasm [...] of rectum documented [facility]* Diagnosis Rectal cancer (HCC)- Primary Malignant [...] of rectum documented [facility]* Diagnosis Rectal cancer (HCC)- Primary Malignant neoplasm of rectum [facility]* Diagnosis Type 2 diabetes mellitus with diabetic neuropathy, without long-term current use of insulin ([facility]/HCC)- Primary Elevated blood sugar Other abnormal glucose [...] neuropathy, without long-term current use of insulin ([facility]) Encounter for screening for lung cancer Encounter for abdominal aortic aneurysm (AAA) screening Type 2 diabetes mellitus with diabetic neuropathy, without long-term current use of insulin ([facility]/HCC)- Primary Benign essential hypertension (CMS/HCC) Essential hypertension, [...] elsewhere (CMS/HCC) Cigarette smoker Tobacco use disorder Medicare annual wellness visit, subsequent- Primary ACP (advance care planning) Other specified counseling Benign essential hypertension (CMS/HCC) Essential hypertension, benign Other problems related to lifestyle Rectal cancer (CMS/HCC) Malignant neoplasm of rectum Smoker Tobacco use disorder Dermatitis Contact dermatitis and other eczema, due to unspecified cause Change in bowel habits Other symptoms involving digestive system Slow transit constipation Myalgia Unspecified myalgia and myositis Protein-calorie malnutrition, unspecified severity (CMS/HCC) Blood in stool Elevated blood sugar Other abnormal glucose Hypoglycemia Hypoglycemia, unspecified documented in this encounter [facility]* Diagnosis Rectal cancer (HCC)- Primary Malignant neoplasm of rectum [facility] Diagnosis Rectal cancer (HCC) Malignant neoplasm of rectum documented [facility] this encounter [facility]* Diagnosis Rectal cancer (HCC)- Primary Malignant neoplasm of rectum [facility]* Diagnosis Rectal cancer (HCC) Malignant neoplasm of rectum [facility]* Diagnosis Rectal cancer (HCC)- Primary Malignant neoplasm of rectum documented [facility]* Diagnosis Rectal cancer (HCC)- Primary Malignant neoplasm of rectum [facility]* Diagnosis Rectal cancer (HCC)- Primary Malignant neoplasm of rectum [facility]* Diagnosis Rectal cancer (HCC)- Primary Malignant neoplasm of rectum documented [facility]* Diagnosis Rectal cancer (HCC) Malignant neoplasm [...] neoplasm of rectum [facility]* Diagnosis Rectal cancer (HCC) Malignant neoplasm of rectum documented [facility] this encounter [facility]* Diagnosis Rectal cancer (HCC)- Primary Malignant neoplasm of rectum [facility]* Diagnosis Rectal cancer (HCC)- Primary Malignant neoplasm of rectum documented [facility] encounter [facility]* Diagnosis Rectal cancer (HCC) Malignant neoplasm of rectum [facility]* Diagnosis Rectal cancer (HCC)- Primary Malignant neoplasm of rectum documented [facility] encounter [facility]* Diagnosis Rectal cancer (HCC) Malignant neoplasm of rectum documented [facility]* Diagnosis Rectal cancer (HCC) Malignant neoplasm of rectum documented [facility] this encounter [facility]* Diagnosis Rectal cancer (HCC)- Primary Malignant neoplasm of rectum documented [facility] this encounter [facility]* Diagnosis Type 2 diabetes mellitus with diabetic neuropathy, without long-term current use of insulin (HCC)- Primary Elevated blood sugar Other abnormal glucose Smoker Tobacco use disorder Routine general medical examination at [facility] care facility- Primary Routine general medical examination at a [facility] care facility Benign essential hypertension Essential hypertension, benign Abnormal glucose tolerance test Impaired glucose tolerance test Nocturia Screening for malignant neoplasm of colon Medicare annual wellness visit, initial Screening for lipid disorders Type 2 diabetes mellitus with diabetic neuropathy, without long-term current use of insulin (HCC) Encounter for screening for lung cancer Encounter for abdominal aortic aneurysm (AAA) screening Type 2 diabetes mellitus with diabetic neuropathy, without long-term current use of insulin (HCC)- Primary Benign essential hypertension Essential hypertension, benign Slow transit constipation Blood in stool Routine general medical examination at [facility] care facility- Primary Routine general medical examination at a [facility] care facility Abnormal glucose tolerance test Impaired glucose tolerance test Benign essential hypertension Essential hypertension, benign Nocturia Type 2 diabetes mellitus with diabetic neuropathy, without long-term current use of insulin (HCC) Medicare annual wellness visit, initial Screening for lipid disorders Myalgia Unspecified myalgia and myositis Smoker Tobacco use disorder Unspecified protein-calorie malnutrition ([facility]-HCC) Unspecified protein-calorie malnutrition 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) Cigarette smoker Tobacco use disorder Rectal cancer (HCC)- Primary Malignant neoplasm of rectum [facility]* Diagnosis Rectal cancer (HCC) Malignant neoplasm of rectum [facility]* Diagnosis Type 2 diabetes mellitus with diabetic neuropathy, without long-term current use of insulin (HCC)- Primary Elevated blood sugar Other abnormal glucose Smoker Tobacco use disorder Routine general medical examination at health care facility- Primary Routine general medical examination at a [facility] facility Benign essential hypertension Essential hypertension, benign Abnormal glucose tolerance test Impaired glucose tolerance test Nocturia Screening for malignant neoplasm of colon Medicare annual wellness visit, initial Screening for lipid disorders Type 2 diabetes mellitus with diabetic neuropathy, without long-term current use of insulin ([facility]) Encounter for screening for lung cancer Encounter for abdominal aortic aneurysm (AAA) screening Type 2 diabetes mellitus with diabetic neuropathy, without long-term current use of insulin (HCC)- Primary Benign essential hypertension Essential hypertension, benign Slow transit constipation Blood in stool Routine general medical examination at health care facility- Primary Routine general medical examination at a [facility] facility Abnormal glucose tolerance test Impaired glucose tolerance test Benign essential hypertension Essential hypertension, benign Nocturia Type 2 diabetes mellitus with diabetic neuropathy, without long-term current use of insulin (HCC) Medicare annual wellness visit, initial Screening for lipid disorders Myalgia Unspecified myalgia and myositis Smoker Tobacco use disorder Unspecified protein-calorie malnutrition (HHS-HCC) Unspecified protein-calorie malnutrition 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) Cigarette smoker Tobacco use disorder Rectal cancer (HCC)- Primary Malignant neoplasm of rectum documented [facility] encounter [facility]* Diagnosis Rectal cancer (HCC)- Primary Malignant neoplasm of rectum [facility]* Diagnosis Rectal cancer (HCC)- Primary Malignant neoplasm of rectum Rectal cancer (HCC) Malignant neoplasm of rectum documented [facility]* Diagnosis Rectal cancer (HCC) Malignant neoplasm of rectum Rectal cancer (HCC) Malignant neoplasm of rectum [facility]* Diagnosis Rectal cancer (HCC)- Primary Malignant neoplasm of rectum Rectal cancer (HCC) Malignant neoplasm of rectum documented [facility]* Diagnosis Rectal cancer (HCC)- Primary Malignant neoplasm of rectum Ostomy nurse consultation Other reasons for seeking consultation Rectal cancer (HCC) Malignant neoplasm of rectum documented [facility]* Diagnosis Pre-op evaluation- Primary Preoperative examination, unspecified Benign essential hypertension Essential hypertension, benign Smoker Tobacco use disorder Rectal cancer (HCC) Malignant neoplasm of rectum Rectal cancer (HCC) Malignant neoplasm of rectum [facility] Diagnosis Type 2 diabetes mellitus with diabetic neuropathy, without long-term current use of insulin (HCC)- Primary Elevated blood sugar Other abnormal glucose Smoker Tobacco use disorder Routine general medical examination at health care facility- Primary Routine general medical examination at a [facility] care facility Benign essential hypertension Essential hypertension, benign Abnormal glucose tolerance test Impaired glucose tolerance test Nocturia Screening for malignant neoplasm of colon Medicare annual wellness visit, initial Screening for lipid disorders Type 2 diabetes mellitus with diabetic neuropathy, without long-term current use of insulin (HCC) Encounter for screening for lung cancer Encounter for abdominal aortic aneurysm (AAA) screening Type 2 diabetes mellitus with diabetic neuropathy, without long-term current use of insulin (HCC)- Primary Benign essential hypertension Essential hypertension, benign Slow transit constipation Blood in stool Routine general medical examination at health care facility- Primary Routine general medical examination at a [facility] care facility Abnormal glucose tolerance test Impaired glucose tolerance test Benign essential hypertension Essential hypertension, benign Nocturia Type 2 diabetes mellitus with diabetic neuropathy, without long-term current use of insulin (HCC) Medicare annual wellness visit, initial Screening for lipid disorders Myalgia Unspecified myalgia and myositis Smoker Tobacco use disorder Unspecified protein-calorie malnutrition (HHS-HCC) Unspecified protein-calorie malnutrition 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) Cigarette smoker Tobacco use disorder Metastatic adenocarcinoma to colorectal region (HCC)- Primary Elevated blood sugar Other abnormal glucose Paroxysmal atrial fibrillation (HCC) Atrial fibrillation Emphysema, unspecified (HCC) Cigarette nicotine dependence with other nicotine-induced disorder Heartburn documented in this encounter [facility] HealthcareHistory and physical note Author Stuart Mix [facility] HospitalNote Date/TimeMarch 2024 8:[address] [place] [address] Vascular Surgery H&P Signed Patient: Bentley Gonzalez MR#: [id number] : 1960 Acct:[id number] Age/Sex: 64 / M Adm Date: 5 Loc: ME Room: Type: [facility] Attending Dr: Stuart Mix MD Copies to: MD Rashaun Haque MD~ Date of Service: 12/08/2024 HPI History of Present Illness HPI: Mr. Gonzalez is a 64 year old male with rectal carcinoma diagnosed September 2024. He is sent today for chemotherapy access. Review of Systems Review of Systems All other systems reviewed & are negative unless noted below or in HPI [facility] Medical History (Updated 12/08/24 @ 09:33 by Stuart Mix MD) Abnormal colonoscopy Rectal cancer Borderline diabetes not currently on medication Surgical History History of tonsillectomy Family History Father Myocardial infarction Lung cancer Mother Heart disease Breast cancer Social History Smoking Status: Current every day smoker Tobacco Type: cigarettes Substance Use Type: Alcohol Meds Medications and Allergies Allergies No Known Allergies Allergy (Verified 12/08/24 07:06) Home Medications capecitabine 500 mg tablet 1,300 mg PO BID 12/08/24 [History Confirmed 12/08/24] Exam Physical Exam Vital Signs: Temp Pulse Resp BP Pulse Ox O2 Del Method 97.9 F 88 16 103/69 98 Room Air 12/08/24 06:50 12/08/24 06:50 12/08/24 06:50 12/08/24 06:50 12/08/24 06:50 12/08/24 06:50 Narrative: Pleasant thin male in no acute distress. Asked appropriate questions. His sister is present during the evaluation. Chest wall shows no evidence of prior port placement. A&P - Vascular (1) Rectal cancer: Plan This patient will undergo placement of an Xpchzc-p-Rbuy. The nature of the procedure was explained to him and I showed him a sample port. We placed on hisright side. Risks including failure the port to function, infection, thrombophlebitis were discussed. Documented By: Stuart Mix MD 12/08/24 093 2 Signed By: <Electronically signed by MD Stuart Mix> 12/08/24 0934 [facility] Work Phone: History of Present illness Narrative* Adonay Cleaning MD - 05/25/2025 10:15 AM EDT Images from the original note were not included. The patient is status post a flexible sigmoidoscopy. A couple polyps 1 in the sigmoid 1 in the rectum were removed. Both these were hyperplastic polyps on pathology. Patient is without complaints. On examination, he is awake alert and in no acute distress. 1. Rectal cancer (HCC) Findings on sigmoidoscopy were reviewed with the patient. Patient is to see his colorectal surgeon this week. He will be discharged from office. [facility] Additional Instructions Keep incision clean and dry x 3 days. Call office fever,chills, incision reddenss, swelling,drainage.[facility] Work Phone: Reason for referral (narrative)No reason for referral information availableMercy Health Urb[facility] Hospital Ctr Work Phone: Reason for visit Narrative* [place] Prior Authorization (Routine) - AuthorizedSpecialtyDiagnoses / ProceduresReferred By Contact Referred To Contact Diagnoses Rectal cancer (HCC) Procedures LEUCOVORIN CALCIUM INJECTION OXALIPLATIN FLUOROURACIL INJECTION PALONOSETRON HCL Hilary Sánchez MD [facility] [place] [address] Phone: tel: fax: Hilary Sánchez MD [address] [place] [address] [place] [address] Phone: tel: fax: Referral IDStatusReasonStart DateExpiration DateVisits RequestedVisits [id number]/26/20258/20/[id number] [facility] for visit Narrative* [place] Prior Authorization (Routine) - AuthorizedSpecialtyDiagnoses / ProceduresReferred By ContactReferred To Contact Diagnoses Rectal cancer (HCC) Procedures LEUCOVORIN CALCIUM INJECTION OXALIPLATIN FLUOROURACIL INJECTION PALONOSETRON HCL Hilary Sánchez MD [address] [place] [address] Phone: tel: fax: Hilary Sánchez MD [facility] [place] [address] Phone: tel: fax: Referral IDStatusReasonStart DateExpiration DateVisits RequestedVisits [id number]/26/20258/20/20251818 [facility] Summary Purpose Family History No Family History Records Found Relationship Condition Age at Onset Recorded Date/T mary father Unknown Myocardial infarctionUnknownMalignant neoplasm of lungUnknownmotherHeart disease UnknownDeceasedUnknownMalignant neoplasm of breastUnknown Relationship Condition Age at Onset Recorded Date/T mary father Myocardial infarction Unknown DeceasedUnknownMalignant neoplasm of lungUnknownmotherHeart diseaseUnknown Malignant neoplasm of breastUnknownMyocardial infarctionUnknown Advance Directives No Advanced Directives Records Found Advance Directive Response Recorded Date/ Time Advance Directives No September 07, 2024 3:19pm Reason for Referral SpecialtyDiagnoses / ProceduresReferred By ContactReferred To ContactCT IMAGING Diagnoses Rectal mass Procedures CT CHEST W IVCON DIAGNOSTIC COMPUTED TOMOGRAPHY THORAX W/[place] [address] [place] [address] [address] Imaging [place] [address] Referral IDStatusReasonStart DateExpiration DateVisits RequestedVisits [id number] Auto-Generated Referral /[id number] / ProceduresReferred By ContactReferred To ContactCT IMAGING Diagnoses Rectal mass Procedures CT ABD/PEL W IVCON CT ABD & [place] [address] [place] [address] [address] Imaging [place] [address] Referral IDStatusReasonStart DateExpiration DateVisits RequestedVisits [id number] Auto-Generated Referral /[id number] / ProceduresReferred By ContactReferred To ContactMR IMAGING Diagnoses Rectal mass Procedures MRI RECTUM WO/W IVCON MRI PELVIS W/O & W/[place] [address] [place] [address] [place] [address] Referral IDStatusReasonStart DateExpiration DateVisits RequestedVisits [id number] Request Auto-Generated Referral /[id number] / ProceduresReferred By ContactReferred To ContactRadiation Oncology Diagnoses Rectal cancer (HCC) Procedures RAD/ONC CONSULT OFFICE/OUTPATIENT [facility] 60 [place] [address] [place] [address] Referral IDStatusReasonStart DateExpiration DateVisits RequestedVisits [id number] PCP Requested Referral [id number] / ProceduresReferred By ContactReferred To ContactOncology Diagnoses Rectal cancer (HCC) Procedures CONSULT TO ONCOLOGY OFFICE/OUTPATIENT [facility] [address] [place] [address] [place] [address] Referral IDStatusReasonStart DateExpiration DateVisits RequestedVisits [id number] PCP Requested Referral [id number] / ProceduresReferred By ContactReferred To Contact Diagnoses Rectal cancer (HCC) Procedures CT SIM PLANNING RADIATION ONCOLOGY THER RAD SIMULAJ-AIDED FIELD SETTING COMPLEX Sherrie Monson MD [address] [place] [address] [place] [address] Referral IDStatusReasonStart DateExpiration DateVisits RequestedVisits [id number] Request PCP Requested Referral /[id number] IDStatusReasonStart DateExpiration DateVisits RequestedVisits [id number] Auto-Generated Referral /[id number] IDStatusReasonStart DateExpiration DateVisits RequestedVisits [id number] Auto-Generated Referral / Chief Complaint and Reason for Visit Chief Complaint Admit Date Blood in Stool, Change in Bowel Habits D ecember 2023 11:22am rectal cancer December 08, 2024 5:58 am rectal cancer December 08, 2024 9:32 am Reason for Visit Admit Date Rectal cancer December 08, 2024 5:58 am Chief Complaint Admit Date small bump, tender to touch on L side of port March 22, 2025 11:30am Rectal Cancer May 16, 2025 5: 43am Reason for Visit Admit Date History of insertion of tunn eled central venous catheter (CVC) with port March 22, 2025 11:30am Additional Source Comments (unrecognized sect ion and content) No Status Records FoundNo Status Records FoundNo Status Records FoundNo Status Records FoundNo Status Records FoundNo Status Records FoundNo Status Records FoundNo Status Records Found INFORMATION SOURCE (unrecogn ized section and content) DATE CREATED AUTHOR 09/13/2021 [facility] DATE CREATED AUTHOR AUTHOR'S ORGANIZ ATION 09/28/2022 [facility] DATE CREATED AUTHOR AUTHOR'S ORGANIZ ATION 01/13/2025 [facility] DATE CREATED AUTHOR AUTHOR'S ORGANIZ ATION 05/26/2025 [facility] DATE CREATED AUTHOR AUTHOR'S ORGANIZ ATION 06/24/2025 [facility] DATE CREATED AUTHOR AUTHOR'S ORGANIZ ATION 06/29/2025 [facility] DATE CREATED AUTHOR AUTHOR'S ORGANIZ ATION 07/13/2025 [facility] DATE CREATED AUTHOR AUTHOR'S ORGANIZ ATION 07/30/2025 [facility] Reason for Visit (unrecogniz ed section and content) ReasonCommentsDiabetesLast A1c was 5.2Prostate CheckPt states he is having issuesReasonCommentsConsultPast couple months. Change in bowels, Blood in stool, constipation - Ref Rugen Challenge--No colonoscopy, poss. Had BE several yrs ago at [place].SpecialtyDiagnoses / ProceduresReferred By ContactReferred To Contact General Surgery Diagnoses Slow transit constipation Blood in stool Procedures AR OFFICE/OUTPATIENT NEW HIGH MDM 60 MINUTES Challenge, Rugen M, MD [address] [facility] [address] [place] [address] Phone: tel: fax: Adonay Clemente MD [address] [facility] [address] [place] [address] Phone: tel: fax: Referral IDStatusReasonStart DateExpiration DateVisits RequestedVisits [id number] Specialty Services Required 202511ReasonCommentsMedicare Annual Wellness Visit Subsequent XjewbaYyflxlvv0qb po colonoscopyReasonCommentsRectal CancerobstructionReason CommentsRequest Outside Medical RecordspathologyReasonCommentsConsultSpecialty Diagnoses / ProceduresReferred By ContactReferred To ContactOncology Diagnoses Rectal cancer (HCC) Procedures CONSULT TO ONCOLOGY OFFICE/OUTPATIENT [facility] 60 [place] [address] [place] [address] Referral IDStatusReasonStart DateExpiration DateVisits RequestedVisits [id number] PCP Requested Referral [id number] EducationReasonCommentsRectal Cancer SpecialtyDiagnoses / ProceduresReferred By ContactReferred To ContactRadiation Oncology Diagnoses Rectal cancer (HCC) Procedures RAD/ONC CONSULT OFFICE/OUTPATIENT [facility] 60 [place] [address] [address] [place] [id number] Referral IDStatusReasonStart DateExpiration DateVisits RequestedVisits [id number] PCP Requested Referral [id number]qEjjuzltkvNhrgidybr / Procedures Referred By ContactReferred To ContactRADIATION ONCOLOGY Diagnoses Malignant neoplasm of rectum Procedures INTENSITY MODULATED RADIATION TX DLVR COMPLEX Sherrie Monson MD [address] [place] [address] [place] [address] [address] [place] [address] [place] [address] Referral IDStatusReasonStart DateExpiration DateVisits RequestedVisits [id number]/21/20254/13950719RenajpUudlz DateComments Simulation Request Form10/26/2024ReasonCommentsNutrition AssessmentReason CommentsRadiology CTSpecialtyDiagnoses / ProceduresReferred By ContactReferred To ContactCT IMAGING Diagnoses Rectal mass Procedures CT ABD/PEL W IVCON CT ABD & [place] [address] [place] [address] [place] [address] Referral IDStatusReasonStart DateExpiration DateVisits RequestedVisits [id number] Auto-Generated Referral /[id number]uAjdpphjmdxk reminder call--spoke with patient--gave directions to the office.ReasonCommentsFirst Time Treatment EducationReasonCommentsRectal CancerFollow up treatmentReasonCommentsPort PlacementReasonCommentsCare CoordinationTreatment planningReasonCommentsCare CoordinationRadiation questionReasonCommentsRadiotherapy On-treatment Visit ReasonCommentsCare TrwzyvsafjprP7S9 treatment follow up callReasonCommentsRectal CancerFollow upReasonCommentsCare CoordinationToxicity checkReasonCommentsCare CoordinationLetter requestReasonCommentsNutrition CounselingReasonComments Benefits InvestigationGood Kelley Hagan ,I am your Financial Navigator, Paige. I wanted to reach out and introduce myself. I welcome the opportunity to meet with you as I can answer questions related to your health plan and any expected out of pocket costs while you are in treatment.You will also find a survey attached to this message that can help me better serve your financial needs. You can complete this at your earliest convenience. Please feel free to stop in or call [phone] for any questions you may haveReasonCommentsLab OrdersReason CommentsRectal CancerTreatment visit/port drawReasonCommentsMedicare Annual Wellness Visit SubsequentReasonCommentsCare CoordinationrashReasonOnset Date CommentsRefill Jldvslp3003/09/2025ReasonCommentsFuture AppointmentReasonComments Chemotherapy TreatmentReasonCommentsOrdersSpecialtyDiagnoses / Procedures Referred By ContactReferred To ContactCT IMAGING Diagnoses Rectal cancer (HCC) Procedures CT CHEST W IVCON DIAGNOSTIC COMPUTED TOMOGRAPHY THORAX W/CONTRAST Hilary Sánchez MD [address] [place] [address] [place] [address] Phone: tel: fax: [place] [address] Referral IDStatusReasonStart DateExpiration DateVisits RequestedVisits [id number] Auto-Generated Referral [id number] CoordinationquestionReasonCommentsRectal CancerFollowupReasonCommentscolonoscopy, past AVV pt, finished chemo treatments MRI next . In [place], Sees Dr. Nunez ReasonCommentsRadiology MRISpecialtyDiagnoses / ProceduresReferred By ContactReferred To ContactMR IMAGING Diagnoses Rectal cancer (HCC) Procedures MRI RECTUM WO/W IVCON MRI PELVIS W/O & W/CONTRAST MATERIAL Hilary Sánchez MD [address] [place] [address] [place] [address] Phone: tel: fax: [place] [address] Referral IDStatusReasonHebron DateExpiration DateVisits RequestedVisits [id number] Auto-Generated Referral [id number] po Flex SigReasonCommentsFollow UpReason CommentsPatient QuestionReasonCommentsSchedule SurgeryReasonCommentsPreparations For ProceduresPatient here for stoma marking and education.ReasonCommentsPre-Op ExamReasonCommentsPatient QuestionPost OpReasonCommentsHospital Follow-upCCF 06/17 to 06/20 for rectal surgery Care Teams (unrecognized sec tion and content) Team MemberRelationshipSpecialtyStart DateEnd Date Rashaun Torres MD [address] [facility] 110 [place] [address] PCP - GeneralFamily Rjqudefi96/31/23 Rashaun Torres MD [address] [place] [address] [place] [address] PCP - [place]09/05/23Team MemberRelationshipSpecialtyStart DateEnd Date Rashaun Torres MD [address] [place] [address] [place] [address] PCP - GeneralFamily Gwquryir27/31/23 Rashaun Torres MD [address] [place] [address] [place] [address] PCP - [place]09/05/23Team MemberRelationshipSpecialtyStart DateEnd Date Rashaun Torres MD [address] [place] [address] [place] [address] PCP - Generalmi Yrldruhj16/31/23 Rashaun Torres MD [address] [place] [address] [place] [address] PCP - [place]09/05/23Team MemberRelationshipSpecialtyStart DateEnd Date Rashaun Torres MD [address] [place] [address] [place] [address] PCP - GeneralFamily Gudtcpwd03/31/23 Rashaun Torres MD [address] [place] [address] [place] [address] PCP - [place]09/05/23Team MemberRelationshipSpecialtyStart DateEnd Date Rashaun Torres MD [address] [place] [address] [place] [address] PCP - GeneralFamily Vapbnfso95/31/23 Rashaun Torres MD [address] [facility] [address] [place] [address] PCP - [place]09/05/23Team MemberRelationshipSpecialtyStart DateEnd Date Rashaun Torres MD [address] [facility] [address] [place] [address] PCP - Generalmily Fopqvaiu08/31/23 Rashaun Torres MD [address] [facility] [address] [place] [address] PCP - [place]09/05/23Team MemberRelationshipSpecialtyStart DateEnd Date Rashaun Torres MD [address] [facility] [address] [place] [address] Family Ennrqfyl36/21/24 Adonay Clemente [address] [address] ReferringGeneral Knzmmdq97/27/24Team MemberRelationshipSpecialtyStart DateEnd Date Rashaun Torres MD [address] [facility] [address] [place] [address] Family Mlnrrgao18/21/24 Adonay Clemente [address] [address] ReferringGeneral Fmmynlv23/27/24Team MemberRelationshipSpecialtyStart DateEnd Date Rashaun Torres MD [address] [facility] [address] [place] [address] [facility]08/26/24 Adonay Clemente 703 [facility] 150 [place] [address] ReferringGeneral Oqfcdxr78/27/24Team MemberRelationshipSpecialtyStart DateEnd Date Rashaun Torres MD [address] [facility] [address] [place] [address] [facility]08/26/24 Adonay Clemente [address] [phone] ReferringGeneral Axyesei02/27/24Team MemberRelationshipSpecialtyStart DateEnd Date Rashaun Torres MD [address] [facility] [address] [place] [address] [facility]08/26/24 Adonay Clemente [address] [phone] ReferringGeneral Jzbpyoa38/27/24Team MemberRelationshipSpecialtyStart DateEnd Date Rashaun Torres MD [address] [facility] [address] [place] [address] [facility]08/26/24 Adonay Clemente [address] [place] [address] [place] [phone] ReferringGeneral Rhwlzxl97/27/24Team MemberRelationshipSpecialtyStart DateEnd Date Rashaun Torres MD [address] [facility] [address] [place] [address] [facility]08/26/24 Adonay Clemente [address] [phone] ReferringGeneral Udwkqyz49/27/24Team MemberRelationshipSpecialtyStart DateEnd Date Rashaun Torres MD [address] [facility] [address] [place] [address] [facility]08/26/24 Adonay Clemente [address] [place] [phone] ReferringGeneral Jcmjyas36/27/24Team MemberRelationshipSpecialtyStart DateEnd Date Rashaun Torres MD [address] [facility] [address] [place] [address] [facility]08/26/24 Adonay Clemente [address] [phone] ReferringGeneral Ixpsbbj50/27/24 Sandhya Kim LSW Social Worker10/26/24Team MemberRelationshipSpecialtyStart DateEnd Date Rashaun Torres MD [address] [facility] [address] [place] [address] [facility]08/26/24 Adonay Clemente [address] [phone] ReferringGeneral Hlsoich39/27/24 Sandhya Kim, [facility] Social Worker10/26/24Team MemberRelationshipSpecialtyStart DateEnd Date Rashaun Torres MD [address] [place] [address] [place] [address] [facility]08/26/24 Adonay Clemente 703 [facility] 150 [place] [address] ReferringGeneral Uicrdxu13/27/24 Sandhya Kim LSW Social Worker10/26/24Team MemberRelationshipSpecialtyStart DateEnd Date Rashaun Torres MD [address] [place] [address] [place] [address] PCP - GeneralFamily Medicine10/27/24 Rashaun Torres MD [address] [facility] [address] [place] [address] [facility]08/26/24 Adonay Clemente 703 [facility] [address] [place] [address] ReferringGeneral Oaalztc88/27/24 Sandhya Kim, [facility] Social Worker10/26/[address] [place] [address] [address] [place], [place] [id number] Registered DietitianNutrition10/27/24Team MemberRelationshipSpecialtyStart Date End Date Rashaun Torres MD [address] [place] [address] [place] [address] PCP - GeneralFamily Medicine10/27/24 Rashaun Torres MD [address] [facility] [address] [place] [address] [facility]08/26/24 Adonay Clemente [address] [place] [address] [place] [phone] ReferringGeneral Akadnpc10/27/24 Sandhya Kim, [facility] Social Worker10/26/[address] [facility] [place] [address] Registered DietitianNutrition10/27/24Team MemberRelationshipSpecialtyStart Date End Date Rashaun Torres MD [address] [facility] [address] [place] [address] PCP - Generalmily Medicine10/27/24 Rashaun Torres MD [address] [facility] [address] [place] [address] [facility]08/26/24 Adonay Clemente 703 [facility] 150 [place] [phone] ReferringGeneral Fuqdhto73/27/24 Sandhya Kim, [facility] Social Worker10/26/[address] [facility] [place] [address] Registered DietitianNutrition10/27/24Team MemberRelationshipSpecialtyStart Date End Date Rashaun Torres MD [address] [facility] [address] [place] [address] PCP - GeneralFamily Medicine10/27/24 Rashaun Torres MD [address] [facility] [address] [place] [address] [facility]08/26/24 Adonay Clemente [address] [place] [address] [place] [phone] ReferringGeneral Zwlgonc10/27/24 Sandhya Kim, [facility] Social Worker10/26/[address] [facility] [place] [address] Registered DietitianNutrition10/27/24Team MemberRelationshipSpecialtyStart Date End Date Rashaun Torres MD [address] [facility] [address] [place] [address] PCP - Generalmily Medicine10/27/24 Rashaun Torres MD [address] [facility] [address] [place] [address] [facility]08/26/24 Adonay Clemente 703 [facility] 150 [place] [address] ReferringGeneral Yxybsrb39/27/24 Sandhya Kim, [facility] Social Worker10/26/[address] 417 [facility] [place] [address] Registered DietitianNutrition10/27/24Team MemberRelationshipSpecialtyStart Date End Date Rashaun Torres MD [address] [facility] [address] [place] [address] PCP - GeneralFamily Medicine10/27/24 Rashaun Torres MD [address] [facility] [address] [place] [address] [facility]08/26/24 Adonay Clemente [address] [phone] ReferringGeneral Xomqppr44/27/24 Sandhya Kim, [employer] Social Worker10/26/[address] 417 [facility] [place] [address] Registered DietitianNutrition10/27/24Team MemberRelationshipSpecialtyStart Date End Date Rashaun Torres MD [address] [facility] [address] [place] [address] PCP - GeneralFamily Medicine10/27/24 Rashaun Torres MD [address] [facility] [address] [place] [address] [facility]08/26/24 Adonay Clemente 703 [facility] [address] [place] [address] ReferringGeneral Oivghjw99/27/24 Sandhya Kim [facility] Social Worker10/26/[address] 417 [facility] [place] [address] Registered DietitianNutrition10/27/24Team MemberRelationshipSpecialtyStart Date End Date Rashaun Torres MD [address] [facility] [address] [place] [address] PCP - GeneralFamily Gbelhilt39/31/23 Rashaun Torres MD [address] [facility] [address] [place] [address] PCP - Amada BLACK09/05/23Team MemberRelationshipSpecialtyStart DateEnd Date Rashaun Torres MD [address] [facility] [address] [place] [address] PCP - GeneralFamily Medicine10/27/24 Rashaun Torres MD [address] [facility] [address] [place] [address] Family Rsbjjiek44/21/24 Adonay Clemente 703 [facility] 150 [place] [phone] ReferringGeneral Ikqrzae97/27/24 Sandhya Kim LSW Social Worker10/26/[address] [facility] [place] [address] Registered DietitianNutrition10/27/24 Mariola Ballard, RN [address] [facility] [place] [address] Specialty Care CoordinatorHematology/Oncology11/05/24 Hilary Sánchez MD [address] [facility] [place] [address] PhysicianHematology/Oncology11/05/24Team MemberRelationshipSpecialtyStart DateEnd Date Rashaun Torres MD [address] [facility] [address] [place] [address] PCP - GeneralFamily Medicine10/27/24 Rashaun Torres MD [address] [facility] [address] [place] [address] [facility]08/26/24 Adonay Clemente 703 [facility] [address] [place] [address] ReferringGeneral Mvmkcjl86/27/24 Sandhya Kim, [employer] Social Worker10/26/[address] [facility] [address] [place], [facility] Registered DietitianNutrition10/27/24 Mariola Ballard RN [address] [facility] [address] [place], [facility] Specialty Care CoordinatorHematology/Oncology11/05/24 Hilary Sánchez MD [address] [place] [address] DR [place], [facility] PhysicianHematology/Oncology11/05/24Team MemberRelationshipSpecialtyStart DateEnd Date Rashaun Torres MD [address] [place] [address] [place] [address] PCP - GeneralFamily Medicine10/27/24 Rashaun Torres MD [address] [place] [address] [place] [address] [facility]08/26/24 Adonay Clemente [address] [place] [address] [place] [address] ReferringGeneral Lnuwrdn02/27/24 Sandhya Kim, [employer] Social Worker10/26/[address] [facility] [place] [address] Registered DietitianNutrition10/27/24 Mariola Ballard RN [address] [facility] [place] [address] Specialty Care CoordinatorHematology/Oncology11/05/24 Hilary Sánchez MD [address] [facility] [place] [address] PhysicianHematology/Oncology11/05/24Team MemberRelationshipSpecialtyStart DateEnd Date Rashaun Torres MD [address] [facility] [address] [place] [address] PCP - [facility] Medicine10/27/24 Rashaun Torres MD [address] [facility] [address] [place] [address] Family Wlxgeddw25/21/24 Adonay Clemente 703 [facility] [address] [place] [address] ReferringGeneral Kgslnhe53/27/24 Sandhya Kim LSW Social Worker10/26/[address] [facility] [place] [address] Registered DietitianNutrition10/27/24 Mariola Ballard RN [address] [facility] [place] [address] Specialty Care CoordinatorHematology/Oncology11/05/24 Hilary Sánchez MD [address] [facility] [place] [address] PhysicianHematology/Oncology11/05/24Team MemberRelationshipSpecialtyStart DateEnd Date Rashaun Torres MD [address] [facility] [address] [place] [address] PCP - GeneralFamily Medicine10/27/24 Rashaun Torres MD [address] [facility] [address] [place] [address] [facility]08/26/24 Adonay Clemente 703 [facility] [address] [place] [address] ReferringGeneral Tbnbfwz41/27/24 Sandhya Kim LSW Social Worker10/26/[address] [facility] [address] [place], [facility] Registered DietitianNutrition10/27/24 Mariola Ballard RN [address] [facility] [address] [place], [facility] [address] Specialty Care CoordinatorHematology/Oncology11/05/24 Hilary Sánchez MD [address] [facility] [address] [place], [facility] [address] PhysicianHematology/Oncology11/05/24Team MemberRelationshipSpecialtyStart DateEnd Date Rashaun Torres MD [address] [facility] [address] [place] [address] PCP - GeneralFamily Medicine10/27/24 Rashaun Torres MD [address] [facility] [address] [place] [address] [facility]08/26/24 Adonay Clemente [address] [place] [address] [place] [address] ReferringGeneral Xjoolpt86/27/24 Sandhya Kim, [employer] Social Worker10/26/[address] [facility] [place] [address] Registered DietitianNutrition10/27/24 Mariola Ballard RN 417 [facility] [place] [address] Specialty Care CoordinatorHematology/Oncology11/05/24 Hilary Sánchez MD 417 [facility] [place] [address] PhysicianHematology/Oncology11/05/24Team MemberRelationshipSpecialtyStart DateEnd Date Rashaun Torres MD [address] [facility] [address] [place] [address] PCP - GeneralFamily Qesfntmr56/31/23Te MemberRelationshipSpecialtyStart Date End Date Rashaun Torres MD [address] [facility] [address] [place] [address] PCP - GeneralFamily Medicine10/27/24 Rashaun Torres MD [address] [facility] [address] [place] [address] Family Pnpeqrft00/21/24 Adonay Clemente 703 [facility] 150 [place] [address] ReferringGeneral Mniizci72/27/24 Sandhya Kim, [facility] Social Worker10/26/[address] [facility] [facility] [place] [address] Registered DietitianNutrition10/27/24 Mariola Ballard RN [address] [facility] [address] [place], [facility] Specialty Care CoordinatorHematology/Oncology11/05/24 Hilary Sánchez MD [address] [facility] [place] [address] PhysicianHematology/Oncology11/05/24Team MemberRelationshipSpecialtyStart DateEnd Date Rashaun Torres MD [address] [facility] [address] [place] [address] PCP - GeneralFamily Medicine10/27/24 Rashaun Torres MD [address] [facility] [address] [place] [address] Family Ogzzjkqu02/21/24 Adonay Clemente [address] [place] [address] 150 [place] [address] ReferringGeneral Atrhelx46/27/24 Sandhya Kim LSW Social Worker10/26/[address] [facility] [address] [place], [facility] Registered DietitianNutrition10/27/24 Mariola Ballard RN [address] [facility] [address] [place], [facility] [address] Specialty Care CoordinatorHematology/Oncology11/05/24 Hilary Sánchez MD [address] [facility] [place] [address] PhysicianHematology/Oncology11/05/24Team MemberRelationshipSpecialtyStart DateEnd Date Rashaun Torres MD [address] [facility] [address] [place] [address] PCP - GeneralFamily Medicine10/27/24 Rashaun Torres MD [address] [facility] [address] [place] [address] [facility]08/26/24 Adonay Clemente 703 [facility] [address] [place] [address] ReferringGeneral Gmtpayi00/27/24 Sandhya Kim LSW Social Worker10/26/[address] [facility] [place] [address] Registered DietitianNutrition10/27/24 Mariola Ballard RN [address] [facility] [place] [address] Specialty Care CoordinatorHematology/Oncology11/05/24 Hilary Sánchez MD 417 [facility] [place] [address] PhysicianHematology/Oncology11/05/24Team MemberRelationshipSpecialtyStart DateEnd Date Rashaun Torres MD [address] [facility] [address] [place] [address] PCP - GeneralFamily Medicine10/27/24 Rashaun Torres MD [address] [facility] [address] [place] [address] [facility]08/26/24 Adonay Clemente 703 [facility] [address] [place] [phone] ReferringGeneral Aactjjl83/27/24 Sandhya Kim LSW Social Worker10/26/[address] [facility] [place] [address] Registered DietitianNutrition10/27/24 Mariola Ballard, RN [address] [facility] [place] [address] Specialty Care CoordinatorHematology/Oncology11/05/24 Hilary Sánchez MD [address] [facility] [place] [address] PhysicianHematology/Oncology11/05/24Team MemberRelationshipSpecialtyStart DateEnd Date Rashaun Torres MD [address] [facility] [address] [place] [address] PCP - GeneralFamily Medicine10/27/24 Rashaun Torres MD 112 [facility] [address] [place] [address] Family Iznximhx70/21/24 Adonay Clemente [address] [place] [address] 150 [place] [address] ReferringGeneral Mmemttf50/27/24 Sandhya Kim, [employer] Social Worker10/26/[address] [facility] [address] [place], [facility] Registered DietitianNutrition10/27/24 Maroila Ballard RN [address] [facility] [place] [address] Specialty Care CoordinatorHematology/Oncology11/05/24 Hilary Sánchez MD [address] [facility] [place] [address] PhysicianHematology/Oncology11/05/24Team MemberRelationshipSpecialtyStart DateEnd Date Rashaun Torres MD [address] [place] [address] [place] [address] PCP - GeneralFamily Medicine10/27/24 Rashaun Torres MD [address] [place] [address] [place] [address] [facility]08/26/24 Adonay Clemente [address] [place] [address] 150 [place] [address] ReferringGeneral Dfugaro31/27/24 Sandhya Kim LSW Social Worker10/26/[address] [facility] [facility] [place] [address] Registered DietitianNutrition10/27/24 Mariola Ballard RN [address] [facility] [place] [address] Specialty Care CoordinatorHematology/Oncology11/05/24 Hilary Sánchez MD [address] [facility] [place] [address] PhysicianHematology/Oncology11/05/24Team MemberRelationshipSpecialtyStart DateEnd Date Rashaun Torres MD [address] [facility] [address] [place] [address] PCP - GeneralFamily Medicine10/27/24 Rashaun Torres MD [address] [facility] [address] [place] [address] [facility]08/26/24 Adonay Clemente [address] [place], [place] [address] ReferringGeneral Xknpdwf58/27/24 Sandhya Kim, [employer] Social Worker10/26/[address] [facility] [address] [place], [facility] Registered DietitianNutrition10/27/24 Mariola Ballard, RN [address] [facility] [address] [place], [facility] [address] Specialty Care CoordinatorHematology/Oncology11/05/24 Hilary Sánchez MD [address] [place] [address] DR [place], [facility] PhysicianHematology/Oncology11/05/24Team MemberRelationshipSpecialtyStart DateEnd Date Rashaun Torres MD [address] [facility] [address] [place] [address] PCP - GeneralFamily Medicine10/27/24 Rashaun Torres MD [address] [facility] [address] [place] [address] Family Omwcqrdk50/21/24 Adonay Clemente [address] [place], [place] [address] ReferringGeneral Sicpnus54/27/24 Sandhya Kim LSW Social Worker10/26/[address] [place] [address] [place] [address] Registered DietitianNutrition10/27/24 Mariola Ballard RN [address] [facility] [place] [address] Specialty Care CoordinatorHematology/Oncology11/05/24 Hilary Sánchez MD [address] [facility] [place] [address] PhysicianHematology/Oncology11/05/24Team MemberRelationshipSpecialtyStart DateEnd Date Rashaun Torres MD [address] [place] [address] [place] [address] PCP - [facility]Federal [facility] [place] Medicine10/27/24 Rashaun Torres MD [address] [place] [address] [place] [address] Family Gsewpfkg24/21/24 Adonay Clemente [address] [place] [address] ReferringGeneral Hbvvvvm36/27/24 Sandhya Kim LSW Social Worker10/26/[address] [facility] [address] [place], [facility] Registered DietitianNutrition10/27/24 Mariola Ballard, RN [address] [facility] [place] [address] Specialty Care CoordinatorHematology/Oncology11/05/24 Hilary Sánchez MD [address] [facility] [place] [address] PhysicianHematology/Oncology11/05/24 Team Status: Active Member Role Status Dates Rashaun Torres MD Primary Care Provider Active Team Status: Inactive Member Role Status Dates Adonay Clemente MD Attending Provider Active Sta rt: September 24, 2024 End: September 24Carito Gross Care ProviderActiveStart: September 24, 2024 End: September 24, 2024 Team Status: Inactive Member Role Status Dates Rashaun Torres MD Primary Care Provider Active S tart: December 08, 2024 End: December 08, 2024Stuart Juarezanushka Daniele ProviderActiveStart: December 08, 2024 End: December 08, 2024 Team Status: Active Member Role Status Dates Rashaun Torrse MD Primary Care Provider Active S tart: December 08, 2024 Daniele Shea Provider, Other ProviderActiveStart: December 08, 2024 Team MemberRelationshipSpecialtyStart DateEnd Date Rashaun Torres MD [address] [facility] [address] [place] [address] PCP - GeneralFamily Medicine10/27/24 Rashaun Torres MD [address] [address] Family Epykxfme19/21/24 Adonay Clemente [address] [place], [place] [address] ReferringGeneral Pzmyjdy67/27/24 Sandhya Kim LSW Social Worker10/26/[address] [place] [address] [address] [place] [phone] Registered DietitianNutrition10/27/24 Mariola Ballard RN [address] [facility] [address] [place] [address] Specialty Care CoordinatorHematology/Oncology11/05/24 iHlary Sánchez MD [address] [facility] [address] [place] [phone] PhysicianHematology/Oncology11/05/24Team MemberRelationshipSpecialtyStart DateEnd Date Rashaun Torres MD [address] [facility] [address] [place] [address] PCP - GeneralFamily Medicine10/27/24 Rashaun Torres MD [address] [facility] [address] [place] [address] [facility]08/26/24 Adonay Clemente [address] [place] [address] ReferringGeneral Urowyvv23/27/24 Sandhya Kim, [employer] Social Worker10/26/[address] [facility] [address] [place], [facility] Registered DietitianNutrition10/27/24 Mariola Ballard RN [address] [facility] [place] [address] Specialty Care CoordinatorHematology/Oncology11/05/24 Hilary Sánchez MD [address] [facility] [address] [place], [facility] PhysicianHematology/Oncology11/05/24Team MemberRelationshipSpecialtyStart DateEnd Date Rashaun Torres MD [address] [facility] [address] [place] [address] PCP - GeneralFamily Medicine10/27/24 Rashaun Torres MD [address] [facility] [address] [place] [address] [facility]08/26/24 Adonay Clemente [address] [place] [address] ReferringGeneral Vksgtmx32/27/24 Sandhya Kim, [employer] Social Worker10/26/[address] [place] [address] [place] [address] Registered DietitianNutrition10/27/24 Mariola Ballard RN [address] [facility] [place] [address] Specialty Care CoordinatorHematology/Oncology11/05/24 Hilary Sánchez MD [address] [facility] [place] [address] PhysicianHematology/Oncology11/05/24Team MemberRelationshipSpecialtyStart DateEnd Date Rashaun Torres MD [address] [place] [address] [place] [address] PCP - Generalmi Medicine10/27/24 Rashaun Torres MD [address] [facility] [address] [place] [address] Family Fpfmswfh40/21/24 Adonay Clemente [address] [place] [address] ReferringGeneral Sbwqxpv90/27/24 Sandhya Kim LSW Social Worker10/26/[address] [place] [address] [place] [address] Registered DietitianNutrition10/27/24 Mariola Ballard RN [address] [facility] [place] [address] Specialty Care CoordinatorHematology/Oncology11/05/24 Hilary Sánchez MD [address] [facility] [place] [address] PhysicianHematology/Oncology11/05/24Team MemberRelationshipSpecialtyStart DateEnd Date Rashaun Torres MD [address] [facility] [address] [place] [address] PCP - GeneralFamily Medicine10/27/24 Rashaun Torres MD [address] [facility] [address] [place] [address] [facility]08/26/24 Adonay Clemente [address] [place] [address] ReferringGeneral Fdwqhyq33/27/24 Sandhya Kim LSW Social Worker10/26/[address] [facility] [address] [place], [facility] [address] Registered DietitianNutrition10/27/24 Mariola Ballard RN [address] [facility] [address] [place], [facility] [address] Specialty Care CoordinatorHematology/Oncology11/05/24 Hilary Sánchez MD [address] [place] [address] DR [place], [facility] [address] PhysicianHematology/Oncology11/05/24Team MemberRelationshipSpecialtyStart DateEnd Date Rashaun Torres MD [address] [facility] [address] [place] [address] PCP - GeneralFamily Medicine10/27/24 Rashaun Torres MD [address] [facility] [address] [place] [address] [facility]08/26/24 Adonay Clemente [address] [place] [address] ReferringGeneral Aayymah91/27/24 Sandhya Kim, [employer] Social Worker10/26/[address] [place] [address] Registered DietitianNutrition10/27/24 Mariola Ballard, RN [address] [place] [address] Specialty Care CoordinatorHematology/Oncology11/05/24 Hilary Sánchez MD [address] [facility] [place] [address] PhysicianHematology/Oncology11/05/24Team MemberRelationshipSpecialtyStart DateEnd Date Rashaun Torres MD [address] [place] [address] [place] [address] PCP - [facility]Federal [facility] Medicine10/27/24 Rashaun Torres MD [address] [place] [address] [place] [address] Family Luzpiiyi71/21/24 Adonay Clemente [address] [place] [address] ReferringGeneral Jkmjgve87/27/24 Sandhya Kim, [facility] Social Worker10/26/[address] [facility] [facility] [place] [address] Registered DietitianNutrition10/27/24 Mariola Ballard, RN [address] [facility] [place] [address] Specialty Care CoordinatorHematology/Oncology11/05/24 Hilary Sánchez MD [address] [facility] [facility] [place] [address] PhysicianHematology/Oncology11/05/24Team MemberRelationshipSpecialtyStart DateEnd Date Rashaun Torres MD [address] [facility] [address] [place] [address] PCP - GeneralFamily Medicine10/27/24 Rashaun Torres MD [address] [place] [address] [place] [address] [facility]08/26/24 Adonay Clemente [address] [place] [address] ReferringGeneral Zwbulxw45/27/24 Sandhya Kim LSW Social Worker10/26/[address] [facility] [address] [place], [facility] [address] Registered DietitianNutrition10/27/24 Mariola Ballard, RN [address] [facility] [address] [place] [phone] Specialty Care CoordinatorHematology/Oncology11/05/24 Hilary Sánchez MD [address] [facility] [address] [place] [id number] PhysicianHematology/Oncology11/05/24Te MemberRelationshipSpecialtyStart DateEnd Date Rashaun Torres MD [address] [facility] [address] [place] [address] PCP - GeneralFamily Medicine10/27/24 Rashaun Torres MD [address] [facility] [address] [place] [address] Family Wxsopymt29/21/24 Adonay Clemente [address] [place] [address] ReferringGeneral Ylajgcv10/27/24 Sandhya Kim LSW Social Worker10/26/[address] [facility] [address] [place], [facility] [address] Registered DietitianNutrition10/27/24 Mariola Ballard, RN [address] [facility] [place] [address] Specialty Care CoordinatorHematology/Oncology11/05/24 Hilary Sánchez MD [address] [place] [address] [place] [address] PhysicianHematology/Oncology11/05/24Team MemberRelationshipSpecialtyStart DateEnd Date Rashaun Torres MD [address] [facility] [address] [place] [address] PCP - GeneralFamily Gbebvmfm77/31/23 Rashaun Torres MD [address] [facility] [address] [place] [address] PCP - Amada [place]09/05/23Team MemberRelationshipSpecialtyStart DateEnd Date Rashaun Torres MD [address] [facility] [address] [place] [address] PCP - GeneralFamily Medicine10/27/24 Rashaun Torres MD [address] [facility] [address] [place] [address] Family Urtrkfcq77/21/24 Adonya Clemente [address] [phone] ReferringGeneral Vwupvcm91/27/24 Sandhya Kim, RITESH Social Worker10/26/[address] [facility] [address] [place], [facility] Registered DietitianNutrition10/27/24 Mariola Ballard, RN [address] [facility] [address] [place], [facility] Specialty Care CoordinatorHematology/Oncology11/05/24 Hilary Sánchez MD [address] [place] [address] DR [place], [facility] PhysicianHematology/Oncology11/05/24Team MemberRelationshipSpecialtyStart DateEnd Date Rashaun Torres MD [address] [place] [address] [place] [address] PCP - GeneralFamily Medicine10/27/24 Rashaun Torres MD [address] [place] [address] [place] [address] Family Orfmyrkg68/21/24 Adonay Clemente [address] [phone] ReferringGeneral Bxaxrmh53/27/24 Sandhya Kim LSW Social Worker10/26/[address] [place] [address] [place] [address] Registered DietitianNutrition10/27/24 Mariola Ballard, RN [address] [facility] [place] [address] Specialty Care CoordinatorHematology/Oncology11/05/24 Hilary Sánchez MD [address] [facility] [place] [address] PhysicianHematology/Oncology11/05/24Team MemberRelationshipSpecialtyStart DateEnd Date Rashaun Torres MD [address] [place] [address] [place] [address] PCP - GeneralFaprly Medicine10/27/24 Rashaun Torres MD [address] [place] [address] [place] [address] Family Imocbsdn77/21/24 Adonay Clemente [address] [place] [address] ReferringGeneral Jlufstq47/27/24 Sandhya Kim LSW Social Worker10/26/[address] [facility] [place] [address] Registered DietitianNutrition10/27/24 Mariola Ballard, RN [address] [facility] [place] [address] Specialty Care CoordinatorHematology/Oncology11/05/24 Hilary Sánchez MD [address] [facility] [place] [address] PhysicianHematology/Oncology11/05/24Team MemberRelationshipSpecialtyStart DateEnd Date Rashaun Torres MD [address] [place] [address] [place] [address] PCP - GeneralFamily Medicine10/27/24 Rashaun Torres MD [address] [place] [address] [place] [address] [facility]08/26/24 Adonay Clemente [address] [place] [address] ReferringGeneral Dwiokhd09/27/24 Sandhya Kim LSW Social Worker10/26/[address] [place] [address] Registered DietitianNutrition10/27/24 Mariola Ballard RN [address] [facility] [place] [address] Specialty Care CoordinatorHematology/Oncology11/05/24 Hilary Sánchez MD [address] [facility] [address] [place], [facility] PhysicianHematology/Oncology11/05/24Team MemberRelationshipSpecialtyStart DateEnd Date Rashaun Torres MD [address] [place] [address] [place] [address] PCP - GeneralFamily Medicine10/27/24 Rashaun Torres MD [address] [place] [address] [place] [address] [facility]08/26/24 Adonay Clemente [address] [place] [address] ReferringGeneral Kjlztsd96/27/24 Sandhya Kim, [employer] INSTALLER Social Worker10/26/[address] [facility] [place] [address] Registered DietitianNutrition10/27/24 Mariola Ballard RN [address] [facility] [place] [address] Specialty Care CoordinatorHematology/Oncology11/05/24 Hilary Sánchez MD [address] [facility] [place] [address] PhysicianHematology/Oncology11/05/24Team MemberRelationshipSpecialtyStart DateEnd Date Rashaun Torres MD [address] [facility] [address] [place] [address] PCP - GeneralFamily Medicine10/27/24 Rashaun Torres MD [address] [facility] [address] [place] [address] Family Djkmkgiu58/21/24 Adonay Clemente [address] [place], [place] [phone] ReferringGeneral Srufbrq61/27/24 Sandhya Kim LSW Social Worker10/26/[address] [facility] [address] [place], [facility] Registered DietitianNutrition10/27/24 Mariola Ballard RN [address] [facility] [address] [place], [facility] Specialty Care CoordinatorHematology/Oncology11/05/24 Hilary Sánchez MD [address] [facility] [place] [address] PhysicianHematology/Oncology11/05/24Te MemberRelationshipSpecialtyStart DateEnd Date Rashaun Torres MD [address] [facility] [address] [place] [address] PCP - GeneralFamily Medicine10/27/24 Rashaun Torres MD [address] [facility] [address] [place] [address] [facility]08/26/24 Adonay Clemente [address] [place] [address] ReferringGeneral Qdohvxy25/27/24 Sandhya Kim, [employer] INST[employer]ER Social Worker10/26/[address] [facility] [address] [place], [facility] Registered DietitianNutrition10/27/24 Mariola Ballard RN [address] [facility] [place] [address] Specialty Care CoordinatorHematology/Oncology11/05/24 Hilary Sánchez MD [address] [facility] [address] [place], [facility] PhysicianHematology/Oncology11/05/24Team MemberRelationshipSpecialtyStart DateEnd Date Rashaun Torres MD [address] [facility] [address] [place] [address] PCP - GeneralFamily Medicine10/27/24 Rashaun Torres MD [address] [facility] [address] [place] [address] [facility]08/26/24 Adonay Clemente [address] [place] [address] ReferringGeneral Qfgqsge50/27/24 Sandhya Kim, [employer] IN[employer]ER Social Worker10/26/[address] [facility] [place] [address] Registered DietitianNutrition10/27/24 Mariola Ballard RN [address] [facility] [place] [address] Specialty Care CoordinatorHematology/Oncology11/05/24 Hilary Sánchez MD [address] [facility] [place] [address] PhysicianHematology/Oncology11/05/24Team MemberRelationshipSpecialtyStart DateEnd Date Rashaun Torres MD [address] [place] [address] [place] [address] PCP - [facility]Federal [facility] Medicine10/27/24 Rashaun Torres MD [address] [facility] [address] [place] [address] Family Xqibrnbm91/21/24 Adonay Clemente [address] [place] [address] ReferringGeneral Uciptcu50/27/24 Sandhya Kim LSW Social Worker10/26/[address] [facility] [place] [address] Registered DietitianNutrition10/27/24 Mariola Ballard RN [address] [facility] [place] [address] Specialty Care CoordinatorHematology/Oncology11/05/24 Hilary Sánchez MD [address] [facility] [place] [address] PhysicianHematology/Oncology11/05/24Team MemberRelationshipSpecialtyStart DateEnd Date Rashaun Torres MD [address] [facility] [address] [place] [address] PCP - GeneralFamily Medicine10/27/24 Rashaun Torres MD [address] [facility] [address] [place] [address] [facility]08/26/24 Adonay Clemente [address] [place] [address] ReferringGeneral Tjqxefa88/27/24 Sandhya Kim LSW Social Worker10/26/[address] [facility] [address] [place], [facility] Registered DietitianNutrition10/27/24 Mariola Ballard RN [address] [facility] [address] [place], [facility] Specialty Care CoordinatorHematology/Oncology11/05/24 Hilary Sánchez MD [address] [place] [address] DR [place], [facility] PhysicianHematology/Oncology11/05/24Team MemberRelationshipSpecialtyStart DateEnd Date Rashaun Torres MD [address] [facility] [address] [place] [address] PCP - GeneralFamily Medicine10/27/24 Rashaun Torres MD [address] [facility] [address] [place] [address] [facility]08/26/24 Adonay Clemente [address] [place] [address] ReferringGeneral Nwoaacw13/27/24 Sandhya Kim, [employer] INST[employer]ER Social Worker10/26/[address] [place] [address] Registered DietitianNutrition10/27/24 Mariola Ballard, RN [address] [place] [address] Specialty Care CoordinatorHematology/Oncology11/05/24 Hilary Sánchez MD [address] [facility] [place] [address] PhysicianHematology/Oncology11/05/24Team MemberRelationshipSpecialtyStart DateEnd Date Rashaun Torres MD [address] [place] [address] [place] [address] PCP - [facility]Federal [facility] [place] Medicine10/27/24 Rashaun Torres MD [address] [place] [address] [place] [address] Family Wnrgdyvw11/21/24 Adonay Clemente [address] [place] [address] ReferringGeneral Ytcugij76/27/24 Sandhya Kim, [facility] Social Worker10/26/[address] [facility] [place] [address] Registered DietitianNutrition10/27/24 Mariola Ballard, RN [address] [facility] [place] [address] Specialty Care CoordinatorHematology/Oncology11/05/24 Hilary Sánchez MD [address] [facility] [place] [address] PhysicianHematology/Oncology11/05/24Team MemberRelationshipSpecialtyStart DateEnd Date Rashaun Torres MD [address] [facility] [address] [place] [address] PCP - GeneralFamily Medicine10/27/24 Rashaun Torres MD [address] [place] [address] [place] [address] [facility]08/26/24 Adonay Clemente [address] [place] [address] ReferringGeneral Tdlhtcl13/27/24 Sandhya Kim LSW Social Worker10/26/[address] [facility] [address] [place] [id number] Registered DietitianNutrition10/27/24 Mariola Ballard, RN [address] [facility] [address] [place] [phone] Specialty Care CoordinatorHematology/Oncology11/05/24 Hilary Sánchez MD [address] [place] [address] [place] [address] PhysicianHematology/Oncology11/05/24Te MemberRelationshipSpecialtyStart DateEnd Date Rashaun Torres MD [address] [facility] [address] [place] [address] PCP - GeneralFamily Blutqejm50/31/23 Rashaun Torres MD [address] [facility] [address] [place] [address] PCP - Amada BLACK09/05/23Team MemberRelationshipSpecialtyStart DateEnd Date Rashaun Torres MD [address] [facility] [address] [place] [address] PCP - GeneralFamily Medicine10/27/24 Rashaun Torres MD [address] [facility] [address] [place] [address] [facility]08/26/24 Adonay Clemente [address] [place] [address] ReferringGeneral Fphunac59/27/24 Sandhya Kim LSW Social Worker10/26/[address] [facility] [address] [place], [facility] Registered DietitianNutrition10/27/24 Mariola Ballard RN [address] [facility] [address] [place], [facility] Specialty Care CoordinatorHematology/Oncology11/05/24 Hilary Sánchez MD [address] [facility] [address] [place], [facility] PhysicianHematology/Oncology11/05/24Team MemberRelationshipSpecialtyStart DateEnd Date Rashaun Torres MD [address] [facility] [address] [place] [address] PCP - GeneralFamily Medicine10/27/24 Rashaun Torres MD [address] [facility] [address] [place] [address] [facility]08/26/24 Adonay Clemente [address] [phone] ReferringGeneral Emyjfna33/27/24 Sandhya Kim, RITESH Social Worker10/26/[address] [facility] [address] [place], [facility] Registered DietitianNutrition10/27/24 Mariola Ballard, RN [address] [facility] [address] [place], [facility] Specialty Care CoordinatorHematology/Oncology11/05/24 Hilary Sánchez MD [address] [place] [address] DR [place], [facility] PhysicianHematology/Oncology11/05/24Team MemberRelationshipSpecialtyStart DateEnd Date Rashaun Torres MD [address] [place] [address] [place] [address] PCP - [facility] Medicine10/27/24 Rashaun Torres MD [address] [place] [address] [place] [address] Family Cgufmyup71/21/24 Adonay Clemente [address] [place], [place] [phone] ReferringGeneral Ipzkhpv85/27/24 Sandhya Kim LSW Social Worker10/26/[address] [place] [address] DR [place], [facility] Registered DietitianNutrition10/27/24 Mariola Ballard, RN [address] [facility] [place] [address] Specialty Care CoordinatorHematology/Oncology11/05/24 Hilary Sánchez MD [address] [facility] [place] [address] PhysicianHematology/Oncology11/05/24Team MemberRelationshipSpecialtyStart DateEnd Date Rashaun Torres MD [address] [address] [place] [address] PCP - GeneralFamily Medicine10/27/24 Rashaun Torres MD [address] [place] [address] [place] [address] Family Paytyfuv60/21/24 Adonay Clemente [address] [place] [address] ReferringGeneral Jlqpocc85/27/24 Sandhya Kim LSW Social Worker10/26/[address] [facility] [place] [address] Registered DietitianNutrition10/27/24 Mariola Ballard, AYO [address] [facility] [place] [address] Specialty Care CoordinatorHematology/Oncology11/05/24 Hilary Sánchez MD [address] [facility] [place] [address] PhysicianHematology/Oncology11/05/24Team MemberRelationshipSpecialtyStart DateEnd Date Rashaun Torres MD [address] [address] [place] [address] PCP - GeneralFamily Medicine10/27/24 Rashaun Torres MD [address] [place] [address] [place] [address] [facility]08/26/24 Adonay Clemente [address] [place] [address] ReferringGeneral Twylpxb15/27/24 Sandhya Kim LSW Social Worker10/26/[address] [place] [address] Registered DietitianNutrition10/27/24 Mariola Ballard RN [address] [facility] [place] [address] Specialty Care CoordinatorHematology/Oncology11/05/24 Hilary Sánchez MD [address] [facility] [place] [address] PhysicianHematology/Oncology11/05/24Team MemberRelationshipSpecialtyStart DateEnd Date Rashaun Torres MD [address] [place] [address] PCP - GeneralFamily Medicine10/27/24 Rashaun Torres MD [address] [place] [address] [facility]08/26/24 Adonay Clemente [address] [place] [address] ReferringGeneral Nqjhetv94/27/24 Sandhya Kim, RITESH Social Worker10/26/[address] [facility] [place] [address] Registered DietitianNutrition10/27/24 Mariola Ballard RN [address] [facility] [place] [address] Specialty Care CoordinatorHematology/Oncology11/05/24 Hilary Sánchez MD [address] [facility] [place] [address] PhysicianHematology/Oncology11/05/24Team MemberRelationshipSpecialtyStart DateEnd Date Rashaun Torres MD [address] [facility] [address] [place] [address] PCP - GeneralFamily Lenxczrk56/31/23 Rashaun Torres MD [address] [facility] [address] [place] [address] PCP - Amada BLACK09/05/23 Team Status: Inactive Member Role Status Dates Rashaun Torres MD Primary Care Provider Active S tart: March 22, 2025 End: March 22, 2025Marycarmen Sierra NP-CAttending ProviderActiveStart: March 22, 2025 End: March 22, 2025 Team Status: Inactive Member Role Status Dates Rashaun Torres MD Primary Care Provider Active S tart: May 16, 2025 End: May 16rachael Clemente MDAttending ProviderActiveStart: May 16, 2025 End: May 16, 2025Team MemberRelationshipSpecialtyStart DateEnd Date Rashaun Torres MD [address] [facility] [address] [place] [address] PCP - GeneralFamily Vbdlakyu78/31/23 Rashaun Torres MD [address] [facility] [address] [place] [address] PCP - Amada BLACK09/05/23Team MemberRelationshipSpecialtyStart DateEnd Date Rashaun Torres MD [address] [facility] [address] [place] [address] PCP - GeneralFamily Medicine10/27/24 Rashaun Torres MD [address] [facility] [address] [place] [address] [facility]08/26/24 Adonay Clemente [address] [place] [address] ReferringGeneral Kevwfvg53/27/24 Sandhya Kim LSW Social Worker10/26/[address] [facility] [address] [place], [facility] Registered DietitianNutrition10/27/24 Mariola Ballard RN [address] [facility] [address] [place], [facility] Specialty Care CoordinatorHematology/Oncology11/05/24 Hilary Sánchez MD [address] [place] [address] DR [place], [facility] PhysicianHematology/Oncology11/05/24Team MemberRelationshipSpecialtyStart DateEnd Date Rashaun Torres MD [address] [facility] [address] [place] [address] PCP - GeneralFamily Medicine10/27/24 Rashaun Torres MD [address] [facility] [address] [place] [address] [facility]08/26/24 Adonay Clemente [address] [place] [address] ReferringGeneral Zgbpyiq13/27/24 Sandhya Kim, [employer] INST[employer]ER Social Worker10/26/[address] [place] [address] Registered DietitianNutrition10/27/24 Mariola Ballard, RN [address] [place] [address] Specialty Care CoordinatorHematology/Oncology11/05/24 Hilary Sánchze MD [address] [facility] [place] [address] PhysicianHematology/Oncology11/05/24Team MemberRelationshipSpecialtyStart DateEnd Date Rashaun Torres MD [address] [place] [address] PCP - Generalmi Medicine10/27/24 Rashaun Torres MD [address] [place] [address] Family Yvqjslia61/21/24 Adonay Clemente [address] [place] [address] ReferringGeneral Uuwbeds04/27/24 Sandhya Kim, [facility] Social Worker10/26/[address] [facility] [place] [address] Registered DietitianNutrition10/27/24 Mariola Ballard, RN [address] [facility] [address] [place], [place] [address] Specialty Care CoordinatorHematology/Oncology11/05/24 Hilary Sánchez MD [address] [place] [address] PhysicianHematology/Oncology11/05/24Team MemberRelationshipSpecialtyStart DateEnd Date Rashaun Torres MD [address] [facility] [address] [place] [address] PCP - GeneralFamily Ipsvpazf75/31/23 Rashaun Torres MD [address] [facility] [address] [place] [address] PCP - [place] MA09/05/23Team MemberRelationshipSpecialtyStart DateEnd Date Rashaun Torres MD [address] [facility] [address] [place] [address] PCP - GeneralFamily Medicine10/27/24 Rashaun Torres MD [address] [facility] [address] [place] [address] Family Nscfarpz34/21/24 Adonay Clemente [address] [place], [place] [address] ReferringGeneral Vejvide94/27/24 Sandhya Kim LSW Social Worker10/26/[address] [facility] [place] [address] Registered DietitianNutrition10/27/24 Mariola Ballard RN [address] [facility] [place] [address] Specialty Care CoordinatorHematology/Oncology11/05/24 Hilary Sánchez MD [address] [facility] [place] [address] PhysicianHematology/Oncology11/05/24Team MemberRelationshipSpecialtyStart DateEnd Date Rashaun Torres MD [address] [facility] [address] [place] [address] PCP - GeneralFamily Medicine10/27/24 Rashaun Torres MD [address] [facility] [address] [place] [address] [facility]08/26/24 Adonay Clemente [address] [place] [address] ReferringGeneral Nemosnf55/27/24 Sandhya Kim LSW Social Worker10/26/[address] [facility] [address] [place], [facility] Registered DietitianNutrition10/27/24 Mariola Ballard, RN [address] [facility] [place] [address] Specialty Care CoordinatorHematology/Oncology11/05/24 Hilary Sánchez MD [address] [facility] [place] [address] PhysicianHematology/Oncology11/05/24Team MemberRelationshipSpecialtyStart DateEnd Date Rashaun Torres MD [address] [facility] [address] [place] [address] PCP - GeneralFamily Medicine10/27/24 Rashaun Torres MD [address] [facility] [address] [place] [address] [facility]08/26/24 Adonay Clemente [address] [place] [address] ReferringGeneral Rgszlwb46/27/24 Sandhya Kim LSW Social Worker10/26/[address] [place] [address] Registered DietitianNutrition10/27/24 Mariola Ballard, RN [address] [facility] [address] [place], [facility] Specialty Care CoordinatorHematology/Oncology11/05/24 Hilary Sánchez MD [address] [place], [facility] PhysicianHematology/Oncology11/05/24Team MemberRelationshipSpecialtyStart DateEnd Date Rashaun Torres MD [address] [place] [address] PCP - [facility] Medicine10/27/24 Rashaun Torres MD [address] [place] [address] Family Fpkaafoh96/21/24 Adonay Clemente [address] [place], [place] [address] ReferringGeneral Qwtnebg29/27/24 Sandhya Kim LSW Social Worker10/26/[address] [place] [address] Registered DietitianNutrition10/27/24 Mariola Ballard, RN [address] [facility] [place] [address] Specialty Care CoordinatorHematology/Oncology11/05/24 Hilary Sánchez MD [address] [place] [address] PhysicianHematology/Oncology11/05/24Team MemberRelationshipSpecialtyStart DateEnd Date Rashaun Torres MD [address] [place] [address] [place] [address] PCP - GeneralFamily Medicine10/27/24 Rashaun Torres MD [address] [facility] [address] [place] [address] Family Fwfhoczx79/21/24 Adonay Clemente [address] [place] [id number] ReferringGeneral Frikjyk87/27/24 Sandyha Kim LSW Social Worker10/26/[address] [facility] [place] [address] Registered DietitianNutrition10/27/24 Mariola Ballard RN [address] [facility] [place] [address] Specialty Care CoordinatorHematology/Oncology11/05/24 Hilary Sánchez MD [address] [facility] [place] [address] PhysicianHematology/Oncology11/05/24Team MemberRelationshipSpecialtyStart DateEnd Date Rashaun Torres MD [address] [place] [address] PCP - GeneralFamily Medicine10/27/24 Rashaun Torres MD [address] [place] [address] Family Jyfrvmsi50/21/24 Adonay Clemente [address] [place] [address] ReferringGeneral Ymwkxyz19/27/24 Sandhya Kim LSW Social Worker10/26/[address] [place] [address] [place] [address] Registered DietitianNutrition10/27/24 Mariola Ballard RN [address] [place] [address] [place] [address] Specialty Care CoordinatorHematology/Oncology11/05/24 Hilary Sánchez MD [address] [place] [address] [place] [address] PhysicianHematology/Oncology11/05/24Team MemberRelationshipSpecialtyStart DateEnd Date Rashaun Torres MD [address] [facility] [address] [place] [address] PCP - GeneralFamily Pyiadxgw15/31/23 Rashaun Torres MD [address] [place] [address] PCP - Amada BLACK09/05/23Team MemberRelationshipSpecialtyStart DateEnd Date Rashaun Torres MD [address] [place] [address] PCP - GeneralFamily Opydvtoj69/31/23 Rashaun Torres MD [address] [place] [address] PCP - Amada BLACK09/05/23 Source Comments (unrecognize d section and content) In the event this informatio n is protected by the Federal Confidentiality of Alcohol and Drug Abuse Patient Records regulations: The Federal rules restrict any use of the information to criminally investigate or prosecute any alcohol or drug abuse patient.[facility] HospitalIn the event this information is protected by the Federal Confidentiality of Alcohol and Drug Abuse Patient Records regulations: The Federal rules restrict any use of the information to criminally investigate or prosecute any alcohol or drug abuse patient.[facility] HospitalIn the event this information is protected by the Federal Confidentiality of Alcohol and Drug Abuse Patient Records regulations: The Federal rules restrict any use of the information to criminally investigate or prosecute any alcohol or drug abuse patient.[facility] HospitalIn the event this information is protected by the Federal Confidentiality of Alcohol and Drug Abuse Patient Records regulations: The Federal rules restrict any use of the information to criminally investigate or prosecute any alcohol or drug abuse patient.[facility] HospitalIn the event this information is protected by the Federal Confidentiality of Alcohol and Drug Abuse Patient Records regulations: The Federal rules restrict any use of the information to criminally investigate or prosecute any alcohol or drug abuse patient.[facility] HospitalIn the event this information is protected by the Federal Confidentiality of Alcohol and Drug Abuse Patient Records regulations: The Federal rules restrict any use of the information to criminally investigate or prosecute any alcohol or drug abuse patient.[facility] HospitalIn the event this information is protected by the Federal Confidentiality of Alcohol and Drug Abuse Patient Records regulations: The Federal rules restrict any use of the information to criminally investigate or prosecute any alcohol or drug abuse patient.[facility] HospitalIn the event this information is protected by the Federal Confidentiality of Alcohol and Drug Abuse Patient Records regulations: The Federal rules restrict any use of the information to criminally investigate or prosecute any alcohol or drug abuse patient.[facility] HospitalIn the event this information is protected by the Federal Confidentiality of Alcohol and Drug Abuse Patient Records regulations: The Federal rules restrict any use of the information to criminally investigate or prosecute any alcohol or drug abuse patient.[facility] HospitalIn the event this information is protected by the Federal Confidentiality of Alcohol and Drug Abuse Patient Records regulations: The Federal rules restrict any use of the information to criminally investigate or prosecute any alcohol or drug abuse patient.[facility] HospitalIn the event this information is protected by the Federal Confidentiality of Alcohol and Drug Abuse Patient Records regulations: The Federal rules restrict any use of the information to criminally investigate or prosecute any alcohol or drug abuse patient.[facility] HospitalIn the event this information is protected by the Federal Confidentiality of Alcohol and Drug Abuse Patient Records regulations: The Federal rules restrict any use of the information to criminally investigate or prosecute any alcohol or drug abuse patient.[facility] HospitalIn the event this information is protected by the Federal Confidentiality of Alcohol and Drug Abuse Patient Records regulations: The Federal rules restrict any use of the information to criminally investigate or prosecute any alcohol or drug abuse patient.[facility] HospitalIn the event this information is protected by the Federal Confidentiality of Alcohol and Drug Abuse Patient Records regulations: The Federal rules restrict any use of the information to criminally investigate or prosecute any alcohol or drug abuse patient.[facility] HospitalIn the event this information is protected by the Federal Confidentiality of Alcohol and Drug Abuse Patient Records regulations: The Federal rules restrict any use of the information to criminally investigate or prosecute any alcohol or drug abuse patient.[facility] HospitalIn the event this information is protected by the Federal Confidentiality of Alcohol and Drug Abuse Patient Records regulations: The Federal rules restrict any use of the information to criminally investigate or prosecute any alcohol or drug abuse patient.[facility] HospitalIn the event this information is protected by the Federal Confidentiality of Alcohol and Drug Abuse Patient Records regulations: The Federal rules restrict any use of the information to criminally investigate or prosecute any alcohol or drug abuse patient.[facility] HospitalIn the event this information is protected by the Federal Confidentiality of Alcohol and Drug Abuse Patient Records regulations: The Federal rules restrict any use of the information to criminally investigate or prosecute any alcohol or drug abuse patient.[facility] HospitalIn the event this information is protected by the Federal Confidentiality of Alcohol and Drug Abuse Patient Records regulations: The Federal rules restrict any use of the information to criminally investigate or prosecute any alcohol or drug abuse patient.[facility] HospitalIn the event this information is protected by the Federal Confidentiality of Alcohol and Drug Abuse Patient Records regulations: The Federal rules restrict any use of the information to criminally investigate or prosecute any alcohol or drug abuse patient.[facility] HospitalIn the event this information is protected by the Federal Confidentiality of Alcohol and Drug Abuse Patient Records regulations: The Federal rules restrict any use of the information to criminally investigate or prosecute any alcohol or drug abuse patient.[facility] HospitalIn the event this information is protected by the Federal Confidentiality of Alcohol and Drug Abuse Patient Records regulations: The Federal rules restrict any use of the information to criminally investigate or prosecute any alcohol or drug abuse patient.[facility] HospitalIn the event this information is protected by the Federal Confidentiality of Alcohol and Drug Abuse Patient Records regulations: The Federal rules restrict any use of the information to criminally investigate or prosecute any alcohol or drug abuse patient.[facility] HospitalIn the event this information is protected by the Federal Confidentiality of Alcohol and Drug Abuse Patient Records regulations: The Federal rules restrict any use of the information to criminally investigate or prosecute any alcohol or drug abuse patient.[facility] HospitalIn the event this information is protected by the Federal Confidentiality of Alcohol and Drug Abuse Patient Records regulations: The Federal rules restrict any use of the information to criminally investigate or prosecute any alcohol or drug abuse patient.[facility] HospitalIn the event this information is protected by the Federal Confidentiality of Alcohol and Drug Abuse Patient Records regulations: The Federal rules restrict any use of the information to criminally investigate or prosecute any alcohol or drug abuse patient.[facility] HospitalIn the event this information is protected by the Federal Confidentiality of Alcohol and Drug Abuse Patient Records regulations: The Federal rules restrict any use of the information to criminally investigate or prosecute any alcohol or drug abuse patient.[facility] HospitalIn the event this information is protected by the Federal Confidentiality of Alcohol and Drug Abuse Patient Records regulations: The Federal rules restrict any use of the information to criminally investigate or prosecute any alcohol or drug abuse patient.[facility] HospitalIn the event this information is protected by the Federal Confidentiality of Alcohol and Drug Abuse Patient Records regulations: The Federal rules restrict any use of the information to criminally investigate or prosecute any alcohol or drug abuse patient.[facility] HospitalIn the event this information is protected by the Federal Confidentiality of Alcohol and Drug Abuse Patient Records regulations: The Federal rules restrict any use of the information to criminally investigate or prosecute any alcohol or drug abuse patient.[facility] HospitalIn the event this information is protected by the Federal Confidentiality of Alcohol and Drug Abuse Patient Records regulations: The Federal rules restrict any use of the information to criminally investigate or prosecute any alcohol or drug abuse patient.[facility] HospitalIn the event this information is protected by the Federal Confidentiality of Alcohol and Drug Abuse Patient Records regulations: The Federal rules restrict any use of the information to criminally investigate or prosecute any alcohol or drug abuse patient.[facility] HospitalIn the event this information is protected by the Federal Confidentiality of Alcohol and Drug Abuse Patient Records regulations: The Federal rules restrict any use of the information to criminally investigate or prosecute any alcohol or drug abuse patient.[facility] HospitalIn the event this information is protected by the Federal Confidentiality of Alcohol and Drug Abuse Patient Records regulations: The Federal rules restrict any use of the information to criminally investigate or prosecute any alcohol or drug abuse patient.[facility] HospitalIn the event this information is protected by the Federal Confidentiality of Alcohol and Drug Abuse Patient Records regulations: The Federal rules restrict any use of the information to criminally investigate or prosecute any alcohol or drug abuse patient.[facility] HospitalIn the event this information is protected by the Federal Confidentiality of Alcohol and Drug Abuse Patient Records regulations: The Federal rules restrict any use of the information to criminally investigate or prosecute any alcohol or drug abuse patient.[facility] HospitalIn the event this information is protected by the Federal Confidentiality of Alcohol and Drug Abuse Patient Records regulations: The Federal rules restrict any use of the information to criminally investigate or prosecute any alcohol or drug abuse patient.[facility] HospitalIn the event this information is protected by the Federal Confidentiality of Alcohol and Drug Abuse Patient Records regulations: The Federal rules restrict any use of the information to criminally investigate or prosecute any alcohol or drug abuse patient.[facility] HospitalIn the event this information is protected by the Federal Confidentiality of Alcohol and Drug Abuse Patient Records regulations: The Federal rules restrict any use of the information to criminally investigate or prosecute any alcohol or drug abuse patient.[facility] HospitalIn the event this information is protected by the Federal Confidentiality of Alcohol and Drug Abuse Patient Records regulations: The Federal rules restrict any use of the information to criminally investigate or prosecute any alcohol or drug abuse patient.[facility] HospitalIn the event this information is protected by the Federal Confidentiality of Alcohol and Drug Abuse Patient Records regulations: The Federal rules restrict any use of the information to criminally investigate or prosecute any alcohol or drug abuse patient.[facility] HospitalIn the event this information is protected by the Federal Confidentiality of Alcohol and Drug Abuse Patient Records regulations: The Federal rules restrict any use of the information to criminally investigate or prosecute any alcohol or drug abuse patient.[facility] HospitalIn the event this information is protected by the Federal Confidentiality of Alcohol and Drug Abuse Patient Records regulations: The Federal rules restrict any use of the information to criminally investigate or prosecute any alcohol or drug abuse patient.[facility] HospitalIn the event this information is protected by the Federal Confidentiality of Alcohol and Drug Abuse Patient Records regulations: The Federal rules restrict any use of the information to criminally investigate or prosecute any alcohol or drug abuse patient.[facility] HospitalIn the event this information is protected by the Federal Confidentiality of Alcohol and Drug Abuse Patient Records regulations: The Federal rules restrict any use of the information to criminally investigate or prosecute any alcohol or drug abuse patient.[facility] HospitalIn the event this information is protected by the Federal Confidentiality of Alcohol and Drug Abuse Patient Records regulations: The Federal rules restrict any use of the information to criminally investigate or prosecute any alcohol or drug abuse patient.[facility] HospitalIn the event this information is protected by the Federal Confidentiality of Alcohol and Drug Abuse Patient Records regulations: The Federal rules restrict any use of the information to criminally investigate or prosecute any alcohol or drug abuse patient.[facility] HospitalIn the event this information is protected by the Federal Confidentiality of Alcohol and Drug Abuse Patient Records regulations: The Federal rules restrict any use of the information to criminally investigate or prosecute any alcohol or drug abuse patient.[facility] HospitalIn the event this information is protected by the Federal Confidentiality of Alcohol and Drug Abuse Patient Records regulations: The Federal rules restrict any use of the information to criminally investigate or prosecute any alcohol or drug abuse patient.[facility] HospitalIn the event this information is protected by the Federal Confidentiality of Alcohol and Drug Abuse Patient Records regulations: The Federal rules restrict any use of the information to criminally investigate or prosecute any alcohol or drug abuse patient.[facility] HospitalIn the event this information is protected by the Federal Confidentiality of Alcohol and Drug Abuse Patient Records regulations: The Federal rules restrict any use of the information to criminally investigate or prosecute any alcohol or drug abuse patient.[facility] HospitalIn the event this information is protected by the Federal Confidentiality of Alcohol and Drug Abuse Patient Records regulations: The Federal rules restrict any use of the information to criminally investigate or prosecute any alcohol or drug abuse patient.[facility] HospitalIn the event this information is protected by the Federal Confidentiality of Alcohol and Drug Abuse Patient Records regulations: The Federal rules restrict any use of the information to criminally investigate or prosecute any alcohol or drug abuse patient.[facility] HospitalIn the event this information is protected by the Federal Confidentiality of Alcohol and Drug Abuse Patient Records regulations: The Federal rules restrict any use of the information to criminally investigate or prosecute any alcohol or drug abuse patient.[facility] HospitalIn the event this information is protected by the Federal Confidentiality of Alcohol and Drug Abuse Patient Records regulations: The Federal rules restrict any use of the information to criminally investigate or prosecute any alcohol or drug abuse patient.[facility] HospitalIn the event this information is protected by the Federal Confidentiality of Alcohol and Drug Abuse Patient Records regulations: The Federal rules restrict any use of the information to criminally investigate or prosecute any alcohol or drug abuse patient.[facility] HospitalIn the event this information is protected by the Federal Confidentiality of Alcohol and Drug Abuse Patient Records regulations: The Federal rules restrict any use of the information to criminally investigate or prosecute any alcohol or drug abuse patient.[facility] HospitalIn the event this information is protected by the Federal Confidentiality of Alcohol and Drug Abuse Patient Records regulations: The Federal rules restrict any use of the information to criminally investigate or prosecute any alcohol or drug abuse patient.[facility] HospitalIn the event this information is protected by the Federal Confidentiality of Alcohol and Drug Abuse Patient Records regulations: The Federal rules restrict any use of the information to criminally investigate or prosecute any alcohol or drug abuse patient.[facility] HospitalIn the event this information is protected by the Federal Confidentiality of Alcohol and Drug Abuse Patient Records regulations: The Federal rules restrict any use of the information to criminally investigate or prosecute any alcohol or drug abuse patient.[facility] HospitalIn the event this information is protected by the Federal Confidentiality of Alcohol and Drug Abuse Patient Records regulations: The Federal rules restrict any use of the information to criminally investigate or prosecute any alcohol or drug abuse patient.[facility] HospitalIn the event this information is protected by the Federal Confidentiality of Alcohol and Drug Abuse Patient Records regulations: The Federal rules restrict any use of the information to criminally investigate or prosecute any alcohol or drug abuse patient.[facility] HospitalIn the event this information is protected by the Federal Confidentiality of Alcohol and Drug Abuse Patient Records regulations: The Federal rules restrict any use of the information to criminally investigate or prosecute any alcohol or drug abuse patient.[facility] HospitalIn the event this information is protected by the Federal Confidentiality of Alcohol and Drug Abuse Patient Records regulations: The Federal rules restrict any use of the information to criminally investigate or prosecute any alcohol or drug abuse patient.[facility] HospitalIn the event this information is protected by the Federal Confidentiality of Alcohol and Drug Abuse Patient Records regulations: The Federal rules restrict any use of the information to criminally investigate or prosecute any alcohol or drug abuse patient.[facility] HospitalIn the event this information is protected by the Federal Confidentiality of Alcohol and Drug Abuse Patient Records regulations: The Federal rules restrict any use of the information to criminally investigate or prosecute any alcohol or drug abuse patient.[facility] HospitalIn the event this information is protected by the Federal Confidentiality of Alcohol and Drug Abuse Patient Records regulations: The Federal rules restrict any use of the information to criminally investigate or prosecute any alcohol or drug abuse patient.[facility] HospitalIn the event this information is protected by the Federal Confidentiality of Alcohol and Drug Abuse Patient Records regulations: The Federal rules restrict any use of the information to criminally investigate or prosecute any alcohol or drug abuse patient.[facility] HospitalIn the event this information is protected by the Federal Confidentiality of Alcohol and Drug Abuse Patient Records regulations: The Federal rules restrict any use of the information to criminally investigate or prosecute any alcohol or drug abuse patient.[facility] HospitalIn the event this information is protected by the Federal Confidentiality of Alcohol and Drug Abuse Patient Records regulations: The Federal rules restrict any use of the information to criminally investigate or prosecute any alcohol or drug abuse patient.[facility] HospitalIn the event this information is protected by the Federal Confidentiality of Alcohol and Drug Abuse Patient Records regulations: The Federal rules restrict any use of the information to criminally investigate or prosecute any alcohol or drug abuse patient.[facility] HospitalIn the event this information is protected by the Federal Confidentiality of Alcohol and Drug Abuse Patient Records regulations: The Federal rules restrict any use of the information to criminally investigate or prosecute any alcohol or drug abuse patient.[facility] HospitalIn the event this information is protected by the Federal Confidentiality of Alcohol and Drug Abuse Patient Records regulations: The Federal rules restrict any use of the information to criminally investigate or prosecute any alcohol or drug abuse patient.[facility] HospitalIn the event this information is protected by the Federal Confidentiality of Alcohol and Drug Abuse Patient Records regulations: The Federal rules restrict any use of the information to criminally investigate or prosecute any alcohol or drug abuse patient.[facility] HospitalIn the event this information is protected by the Federal Confidentiality of Alcohol and Drug Abuse Patient Records regulations: The Federal rules restrict any use of the information to criminally investigate or prosecute any alcohol or drug abuse patient.[facility] HospitalIn the event this information is protected by the Federal Confidentiality of Alcohol and Drug Abuse Patient Records regulations: The Federal rules restrict any use of the information to criminally investigate or prosecute any alcohol or drug abuse patient.[facility] HospitalIn the event this information is protected by the Federal Confidentiality of Alcohol and Drug Abuse Patient Records regulations: The Federal rules restrict any use of the information to criminally investigate or prosecute any alcohol or drug abuse patient.[facility] HospitalIn the event this information is protected by the Federal Confidentiality of Alcohol and Drug Abuse Patient Records regulations: The Federal rules restrict any use of the information to criminally investigate or prosecute any alcohol or drug abuse patient.[facility] HospitalIn the event this information is protected by the Federal Confidentiality of Alcohol and Drug Abuse Patient Records regulations: The Federal rules restrict any use of the information to criminally investigate or prosecute any alcohol or drug abuse patient.[facility] HospitalIn the event this information is protected by the Federal Confidentiality of Alcohol and Drug Abuse Patient Records regulations: The Federal rules restrict any use of the information to criminally investigate or prosecute any alcohol or drug abuse patient.[facility] HospitalIn the event this information is protected by the Federal Confidentiality of Alcohol and Drug Abuse Patient Records regulations: The Federal rules restrict any use of the information to criminally investigate or prosecute any alcohol or drug abuse patient.[facility] HospitalIn the event this information is protected by the Federal Confidentiality of Alcohol and Drug Abuse Patient Records regulations: The Federal rules restrict any use of the information to criminally investigate or prosecute any alcohol or drug abuse patient.[facility] HospitalIn the event this information is protected by the Federal Confidentiality of Alcohol and Drug Abuse Patient Records regulations: The Federal rules restrict any use of the information to criminally investigate or prosecute any alcohol or drug abuse patient.[facility] HospitalIn the event this information is protected by the Federal Confidentiality of Alcohol and Drug Abuse Patient Records regulations: The Federal rules restrict any use of the information to criminally investigate or prosecute any alcohol or drug abuse patient.[facility] HospitalIn the event this information is protected by the Federal Confidentiality of Alcohol and Drug Abuse Patient Records regulations: The Federal rules restrict any use of the information to criminally investigate or prosecute any alcohol or drug abuse patient.[facility] HospitalIn the event this information is protected by the Federal Confidentiality of Alcohol and Drug Abuse Patient Records regulations: The Federal rules restrict any use of the information to criminally investigate or prosecute any alcohol or drug abuse patient.[facility] HospitalIn the event this information is protected by the Federal Confidentiality of Alcohol and Drug Abuse Patient Records regulations: The Federal rules restrict any use of the information to criminally investigate or prosecute any alcohol or drug abuse patient.[facility] HospitalIn the event this information is protected by the Federal Confidentiality of Alcohol and Drug Abuse Patient Records regulations: The Federal rules restrict any use of the information to criminally investigate or prosecute any alcohol or drug abuse patient.[facility] HospitalIn the event this information is protected by the Federal Confidentiality of Alcohol and Drug Abuse Patient Records regulations: The Federal rules restrict any use of the information to criminally investigate or prosecute any alcohol or drug abuse patient.[facility] HospitalIn the event this information is protected by the Federal Confidentiality of Alcohol and Drug Abuse Patient Records regulations: The Federal rules restrict any use of the information to criminally investigate or prosecute any alcohol or drug abuse patient.[facility] HospitalIn the event this information is protected by the Federal Confidentiality of Alcohol and Drug Abuse Patient Records regulations: The Federal rules restrict any use of the information to criminally investigate or prosecute any alcohol or drug abuse patient.[facility] HospitalIn the event this information is protected by the Federal Confidentiality of Alcohol and Drug Abuse Patient Records regulations: The Federal rules restrict any use of the information to criminally investigate or prosecute any alcohol or drug abuse patient.[facility] HospitalIn the event this information is protected by the Federal Confidentiality of Alcohol and Drug Abuse Patient Records regulations: The Federal rules restrict any use of the information to criminally investigate or prosecute any alcohol or drug abuse patient.[facility] HospitalIn the event this information is protected by the Federal Confidentiality of Alcohol and Drug Abuse Patient Records regulations: The Federal rules restrict any use of the information to criminally investigate or prosecute any alcohol or drug abuse patient.[facility] HospitalIn the event this information is protected by the Federal Confidentiality of Alcohol and Drug Abuse Patient Records regulations: The Federal rules restrict any use of the information to criminally investigate or prosecute any alcohol or drug abuse patient.[facility] HospitalIn the event this information is protected by the Federal Confidentiality of Alcohol and Drug Abuse Patient Records regulations: The Federal rules restrict any use of the information to criminally investigate or prosecute any alcohol or drug abuse patient.[facility] HospitalIn the event this information is protected by the Federal Confidentiality of Alcohol and Drug Abuse Patient Records regulations: The Federal rules restrict any use of the information to criminally investigate or prosecute any alcohol or drug abuse patient.[facility] HospitalIn the event this information is protected by the Federal Confidentiality of Alcohol and Drug Abuse Patient Records regulations: The Federal rules restrict any use of the information to criminally investigate or prosecute any alcohol or drug abuse patient.[facility] FOR RECORDS PERTAINING TO PATIENTS WHO ARE [...] BE BASED ON THE PRIMARY CLINICAL RECORDS. [facility] [employer] [facility] provides no warranty or guarantee of the accuracy or completeness of information in this document.
--- OUTSIDE RECORDS SUMMARY | 2025-08-04 00:42 | XMS_ITS | Clinical Summary ---
Author Organization [facility] Address [address] [place] [address] Care Team Providers Care Agency Appointments Supervisor Name Role Phone Corinne Torres MD Unavailable Adonay Clemente Unavailable Sandhya Kim PRODUCT STRATEGY DIRECTOR Unavailable Unavailable Corinne Torres MD Primary Care Provider [phone] Unavailable [phone] Mariola Ballard RN Unavailable [phone] Sancho Sánchez MD Unavailable Allergies No known active allergies Medications MedicationSigDispense QuantityRefillsLast FilledStart DateEnd DateStatus acetaminophen (TYLENOL) 500 mg tablet Take 2 tablets by mouth every 6 hours. 50 tablet 06/20/2025 4:07 PM EDT5Active ibuprofen (MOTRIN) 400 mg tablet Take 1 tablet by mouth every 8 hours. 20 tablet 06/20/2025 4:07 PM EDT5Active methocarbamol (ROBAXIN) 500 mg tablet Take 1 tablet by mouth three times a day as needed. 15 tablet 06/20/2025 4:07 PM EDT5Active Bacillus coagulan-calcium carb (DIGESTIVE ADVANTAGE PROBIOTIC) 2 billion cell- 140 mg capsule Take 1 capsule by mouth once daily. 30 capsule 06/20/2025 4:07 PM EDT5Active Additional Information Patient not taking.Reason: Course of Therapy Completed, Reported on 07/28/2025 iv contrast (will be provided with radiology test) CT Chest ABD/PEL-Inject, intravenously, once for 1 dose.No IV access, insert saline lock prior to the beginning of sedation, infusion, injection of imaging exam. Discontinue saline lock post exam. IfPt. has a central line or IVAD, may access for administration according to line specific nursing protocol. Once exam is complete flush line and de-access according to line specific nursing protocol in the CT contrast administration guidelines link. 1 each 5Active Additional Information Patient not taking.Reason: Course of Therapy Completed, Reported on 07/28/2025 enteric contrast (will be provided with radiology test) For CT CHESTABD/PEL W IVCON Routine order Administer, As Directed One Time Only, via Oral, Rectal, both Oral and Rectal, Enteric Tube, Stoma or Indwelling Catheter, Enteric Contrast as designated perenteric contrast guidelines 1 each 5Active Additional Information Patient not taking.Reason: Course of Therapy Completed, Reported on 07/28/2025 apixaban (ELIQUIS) 2.5 mg tab(s) Take 1 tablet by mouth two times a day for 21 days. 42 tablet 06/20/2025 4:07 PM EDTExpired Active Problems ProblemNoted DateDiagnosed TivrHngzuhsyozpn87/01/2025Rectal aidepg3712/06/2024 Cancer Staging: Pathologic stage from 06/27/2025: ypT3, ypN1b - Signed by Sergey Arenas MD on 06/27/2025 Benign essential ugmanbaxvaaa45/27/2023Elevated blood sugar08/05/2023Smoker 08/05/2023 Resolved Problems ProblemNoted DateDiagnosed DateResolved DateEncounter for ostomy care education Ileostomy bag tadpale58 Encounters DateTypeDepartmentCare TkarGzrmeudcktw33/23/2025 1:00 PM EDTOffice Visit Colorectal Surgery [address] [place] [address] Teresa Tucker MD Attention to ileostomy (HCC) (Primary Dx)07/28/2025Orders Only Colorectal Surgery [address] [address] Teresa Tucker MD Attention to ileostomy (HCC) (Primary Dx)07/28/2025Education Colorectal Surgery [address] [address] Mily Lynch, AYO Preparations For Uexdhyk6807/19/2025 Patient Msg Colorectal Surgery [address] [address] Teresa Tucker MD food fwxfrrr8407/19/2025Telephone Colorectal Surgery [address] [address] Teresa Tucker MD Patient Question; Post Op07/15/2025 9:40 AM EDTVisit (SP) Office Hematology/Oncology [address] [place] [address] [place] [address] Sancho Sánchez MD Rectal cancer (HCC) (Primary Dx)07/15/20253856Hlvtzx78/03/2025 1:40 PM EDTOffice Visit Colorectal Surgery [address] [place] [address] Ana Maria Solitario APRN.PIG MACHINE SUPERVISOR Rectal cancer (HCC) (Primary Dx); Follow-up examination after colorectal surgery; Attention to ileostomy (HCC)07/07/2025 7:30 AM EDTTumor Board Tumor Board [address] [place] [address] Tumor Board GI Cdkwaykzfn11/02/2025Telephone Colorectal Surgery [address] [address] Alejandra Ponce APRN.PIG MACHINE SUPERVISOR 07/06/20252736Iyeqku42/23/2025Telephone Colorectal Surgery [address] [place] [address] Teresa Tucker MD 06/27/2025Orders Only Colorectal Surgery [address] [address] Teresa Tucker MD Rectal cancer (HCC) (Primary Dx)06/23/2025Telephone Hematology/Oncology [address] [place] [address] [place] [address] Mariola Ballard, RN Care Coordination (Hospital d/c follow up call)06/23/2025Telephone Hematology/Oncology [address] [place] [address] [place] [address] Mariola Ballard, RN Care Coordination (Medication question)06/21/2025Telephone Colorectal Surgery [facility] [address] [place] [phone] Teresa Tucker MD Patient Question; Post Op2025 7:38 AM EDTAnesthesia Event [facility] Operating Room [address] [place], [place] [id number] Heath Grande MD Calhoun, Chelsey D, SPOUTING INSTALLER.AUTOMATIC PROFILE SANDER OPERATOR 2025 7:30 AM EDT - 2025 1:50 PM EDTSurgery [facility] Operating Room [address] [place] [address] Teresa Tucker MD ROBOTIC LAPAROSCOPIC HEMICOLECTOMY WITH ANASTOMOSIS,COLOPROCTOSTOMY AND COLOSTOMY, flexiable szyiidnusdxjb15/12/2025 5:57 AM EDT - 06/20/2025 4:15 PM EDTHospital Encounter [facility] PK3C [address] [place], [place] [id number] Teresa Tucker MD Rectal cancer (HCC) [C20] Discharge Disposition: Home Health Care06/17/20256966Mmqeiy45/05/2025 12:50 PM EDT PAT Pre Anesthesia [address] [place] [address] Pre-op evaluation (Primary Dx); Benign essential hypertension; Smoker; Rectal cancer (HCC)06/10/2025 9:00 AM EDTOffice Visit Colorectal Surgery [address] [place] [address] Ana Maria Solitario, SPOUTING INSTALLER.PIG MACHINE SUPERVISOR Rectal cancer (HCC) (Primary Dx); Ostomy nurse kxzchgmoutfr06/05/2025Telephone Colorectal Surgery [facility] [address] [place], [place] [phone] Teresa Tucker MD Patient Fwpobann09/05/6701Nulwuq80/02/2025Telephone Colorectal Surgery [address] [address] [address] Teresa Tucker MD Schedule Gojsmpn2206/07/2025Telephone Colorectal Surgery [address] [address] Teresa Tucker MD 06/02/2025 8:10 AM EDTTumor Board Tumor Board [address] [place] [address] Tumor Board GI Paxcaupile26/28/2025Telephone Colorectal Surgery [address] [address] Teresa Tucker MD Patient Hsdatquj26/26/2025 9:40 AM EDTVisit (SP) Office Hematology/Oncology [address] [place] [address] [place] [address] Sancho Sánchez MD Rectal cancer (HCC) (Primary Dx)05/31/20253587Jflvpt57/22/2025 3:[facility] [address] [place] [address] Rectal cancer (HCC)05/26/2025 9:40 AM EDTOffice Visit Colorectal Surgery [address] [address] Teresa Tucker MD Rectal cancer (HCC) (Primary Dx)05/26/2025Education Colorectal Surgery [address] [address] [address] Kareen Prather, RN Rectal Omgggx9005/26/2025Orders Only Colorectal Surgery [address] [address] [address] Teresa Tucker MD Rectal cancer (HCC) (Primary Dx)05/25/2025Orders Only COLORECTAL SURGERY [address] [place], [place] [address] Teresa Tucker MD Rectal cancer (HCC) (Primary Dx)05/24/20254376Pmywqg18/14/2025 6:12 PM EDT - 05/19/2025 11:59 PM EDTHospital Encounter MRI Q [address] [place] [phone] Rectal cancer (HCC) [C20] Discharge Disposition: Homefrom Last 3 Months Family History Medical HistoryRelationCommentsLung CancerFatherBreast CancerMotherCancerSister RelationStatusCommentsFatherDeceasedMotherDeceasedSisterDeceased Social History Tobacco UseTypesPacks/DayYears UsedDateSmoking Tobacco: Every DyeIixkamorng431.8 Started: 1970Smokeless Tobacco: Never Tobacco Cessation:Ready to Q uit: Not Asked; Counseling Given: Not Answered Alcohol UseStandard Drinks/WeekCommentsYes0 (1 standard drink = 0.6 oz pure alcohol)very seldomPHQ-2AnswerDate RecordedPHQ-2 kcnga856UDIT-CAnswer Date RecordedQ1: How often do you have a drink containing alcohol?Monthly or less06/10/2025Q2: How many drinks containing alcohol do you have on a typical day when you are drinking?3 or Q3: How often do you have six or more drinks on one occasion?Less than cdhlwyb0206/10/2025Hunger Vital SignAnswerDate RecordedWithin the past 12 months, [...] or from getting things needed for daily living?No06/20/2025Housing Stability Vital SignAnswerDate RecordedIn the last 12 months, was there a time when you were not able to pay the mortgage or rent on time?No06/20/2025Number of Times Moved in the Last YearNot on file 06/20/2025t any time in the past 12 months, were you homeless or living in a detention (including now)?No06/20/2025HC UtilitiesAnswerDate RecordedIn the past 12 months has the electric, gas, oil, or water company threatened to shut off services in your home?No06/20/2025rea Deprivation IndexAnswerDate Recorded National Score (1-100), lower number is lower avjg658410/07/2024State Score (1- 10), lower number is lower vyko326Data from: https://www.neighborhoodatlas.[facility].edu/. Last address used for wmgvbmhlsqw[address] [facility] [address]/07/2024Sex and Gender InformationValueDate RecordedSex Assigned at BirthNot on fileLegal HvgNdtf43/21/2024 4:26 PM EST Gender IdentityNot on fileSexual OrientationNot on file Last Filed Vital Signs Vital SignReadingTime TakenCommentsBlood Phonppwb990/7507/28/2025 12:54 PM EDT Oojup937707/28/2025 12:54 PM YSBYilckgmeotq59.5 ??C (97.7 ??F)07/28/2025 12:54 PM EDTRespiratory Ngge0376 9:33 AM EDTOxygen Yveznltdwe81%07/28/2025 12:54 PM EDTInhaled Oxygen Concentration--Cwvmxm44.8 kg (107 lb 9.4 oz)07/15/2025 9:33 AM NIIBafcuf707.6 cm (5' 5.98 )07/15/2025 9:33 AM EDTBody Mass Index17.37 07/15/2025 9:33 AM EDT Plan of Treatment DateTypeDepartmentCare Team (Latest Contact Info)Courskvhgwh53/30/2025 9:00 AM EDTAppointment [facility] Radiology Gastrointestinal [address] [place] [address] GGE110/31/2024 8:20 AM ESTPAT Pre Anesthesia [address] [place] [address] 2, Pacc Parrish [address] [place] [address] DOS 09/14/2512 7:30 AM ESTHospital Encounter [facility] Operating Room [address] [place] [address] [place] [address] [place] [address] Attention to ileostomy (HCC) [Z43.2]09/14/2025 7:30 AM EST - 09/14/2025 10:55 AM ESTSurgery [facility] [address] [place] [address] [place] [address] [place] [address] CLOSURE RAUBFJRAL51/05/2026 9:45 AM ESTAppointment Radiology Pet CT [address] [place] [address] CT cap11/17/2025 9:40 AM ESTVisit (SP) Office Hematology/Oncology [address] [place] [address] Lam Patel MD [address] [place] [address] CT results [place] from ReddyNamePriorityAssociated DiagnosesDate/TimeCLOSURE ILEOSTOMY Attention to ileostomy (HCC) 09/14/2025 7:30 AM ESTSIGMOIDOSCOPY FLEXIBLE Attention to ileostomy (HCC) 09/14/2025 7:30 AM ESTHealth MaintenanceDue DateLast DoneCommentsAbdominal Aortic Aneurysm Goomtgvbj1958Covid-19 Vaccine (#1)1963Annual PCP Team Chronic Disease Visit1976Anxiety Fnyocgefp43/12/1976Depression Uvqejobmr68/12/1976Hepatitis C Ynxyjifbq90/12/1976DTaP,Tdap,Td Vaccine (1 - Tdap)1977Pneumococcal Vaccine: 50+ (1 of 2 - PCV)1977Shingrix Vaccine (1 of 2)1977Lipid Bhginiswl40/12/1993CT Dsidltcupgvh13/12/2003 Cologuard (FIT-DNA)06/17/20034982Wbgxorbhawu01/12/2003Colorectal Cancer Screening 2003Fecal Occult Blood06/17/20037862Yivfxcxqmbbjw18/12/2003RSV Vaccine (1 - Risk 60-74 years 1-dose series)2018Advance Directive Tupyflwgwk79/01/2025 Medicare Advantage Annual Wellness Visit10/06/2024Influenza Vaccine (#1) 2025Lung Cancer Kxruxajkp10, 04/27/2025, 04/27/2025, Additional history existsDiabetes Dbhaartpl37, 06/28/2025, 06/20/2025, Additional history existsProstate Cancer Screening Discussion Goals GoalPatient Goal TypeAssociated ProblemsRecent ProgressPatient-Stated?Author Autogenerated Goal Care PlanAutogenerated ProblemNoMaNona cosby Medical Devices ImplantedTypeAreaManufacturerDevice IdentifierShelf Expiration DateModel / Serial / LotPower PortPortChest Procedures Procedure NamePriorityDate/TimeAssociated DiagnosisCommentsCOMPLETE BLOOD COUNT Hrsmqoe0506/20/2025 6:12 AM EDT BASIC METABOLIC VLCBOMirepan95/15/2025 6:12 AM EDT MAGNESIUM GOXNqlzbwz90/15/2025 6:12 AM EDT PHOSPHORUS KZYGBWPAWYkuswkv61/15/2025 6:12 AM EDT COMPLETE BLOOD XPUTJMeqbxtb30/14/2025 5:08 AM EDT BASIC METABOLIC TYMCJZctafuv83/14/2025 5:08 AM EDT MAGNESIUM RYRIdwcrch87/14/2025 5:08 AM EDT PHOSPHORUS OAMAGBMYOUsyfphe35/14/2025 5:08 AM EDT COMPLETE BLOOD RFFHKDivyxar60/13/2025 4:24 AM EDT BASIC METABOLIC DYVJPEhtgloj91/13/2025 4:24 AM EDT MAGNESIUM DNIEdnpazy14/13/2025 4:24 AM EDT PHOSPHORUS DQFEEBFADTpcwabm71/13/2025 4:24 AM EDT SURGICAL QQKUNTOEPEwvwjzi04/12/2025 12:50 PM EDT Rectal cancer (HCC) CONFIRM BLOOD DPBFQtzpcqo98/12/2025 7:58 AM EDT Rectal cancer (HCC) TYPE + LSZVROYrjgwhf28/12/2025 7:55 AM EDT Rectal cancer (HCC) PERIPHERAL IV PTFVFMOZLRhavoxc36/12/2025 7:50 AM EDT WRPSSGJMSIDqqdxks05/12/2025 7:46 AM EDT RMVL ISAEL CTR VAD W/SUBQ PORT/GARMENT SUPERVISOR CTR/PRPH INSJ2025 7:36 AM EDT Rectal cancer (HCC) LAPS COLECTMY PRTL W/COLOPXTSTMY LW ANAST W/CLST2025 7:36 AM EDT Rectal cancer (HCC) ECG YUYDUROTPjxqnkv66/05/2025 12:32 PM EDT Pre-op evaluation PT ED PATIENT EKEDXXAGKUQ96/01/2025 COMPREHENSIVE METABOLIC YPQKLRsrlfir96/22/2025 2:41 PM EDT Rectal cancer (HCC) CBC + TQBOXltfydq22/22/2025 2:41 PM EDT Rectal cancer (HCC) MRI RECTUM WO/W GJIDDQipuleq52/14/2025 7:33 PM EDT Rectal cancer (HCC) PT ED PATIENT DSAQJTDNHKI95/30/2025 CT CHEST W XBNPKYjvzbjp27/23/2025 11:03 AM EDT Rectal cancer (HCC) from Last 3 Months or Most Recently Relevant to Health Maintenance Results * MAGNESIUM (06/20/2025 6:12 AM EDT) Only the most recent of3 resultswithin the time period is included. ComponentValueRef RangeTest MethodAnalysis TimePerformed AtPathologist Signature Magnesium1.81.7 - 2.3 mg/dL06/20/2025 7:49 AM EDTFAIRVIEW LABORATORYSpecimen (Source)Anatomical Location / LateralityCollection Method / VolumeCollection TimeReceived TimeBloodBLOOD SPECIMEN / UnknownVenipuncture / Sivzuya6506/20/2025 6:12 AM EDT06/20/2025 6:50 AM EDT Narrative Authorizing ProviderResult TypeResult StatusErasmo Almeida MDLABORATORYFinal Result Performing OrganizationAddressCity/State/[place] [address], * PHOSPHORUS INORGANIC (06/20/2025 6:12 AM EDT) Only the most recent of3 resultswithin the time period is included. ComponentValueRef RangeTest MethodAnalysis TimePerformed AtPathologist Signature Phosphorus3.32.7 - 4.8 mg/dL06/20/2025 7:49 AM EDTFAIRVIEW LABORATORYSpecimen (Source)Anatomical Location / LateralityCollection Method / VolumeCollection TimeReceived TimeBloodBLOOD SPECIMEN / UnknownVenipuncture / Zgwavad8706/20/2025 6:12 AM EDT06/20/2025 6:50 AM EDT Narrative Authorizing ProviderResult TypeResult StatusErasmo Almeida MDLABORATORYFinal Result Performing OrganizationAddressCity/State/ZIP CodePhone Number [address] * (ABNORMAL) COMPLETE BLOOD COUNT (06/20/2025 6:12 AM EDT) Only the most recent of3 resultswithin the time period is included. ComponentValueRef RangeTest MethodAnalysis TimePerformed AtPathologist Signature WBC6.383.70 - 11.00 k/uL06/20/2025 7:18 AM EDTFAIRVIEW LABORATORYRBC3.90(L)4.20 - 6.00 m/uL06/20/2025 7:18 AM EDTFAIRVIEW LPOVXFYETJYihxxjxsvh24.3(L)13.0 - 17.0 g/dL06/20/2025 7:18 AM EDTFAIRVIEW AVMZFVTCTLOchoxyzvlf85.7(L)39.0 - 51.0 % 06/20/2025 7:18 AM EDTFAIRVIEW ELYGRZTLHBQOS20.780.0 - 100.0 fL06/20/2025 7:18 AM EDTFAIRVIEW VYVWUODXZKZOK59.526.0 - 34.0 pg06/20/2025 7:18 AM EDTFAIRVIEW LDTWTRCPPKENAE05.630.5 - 36.0 g/dL06/20/2025 7:18 AM EDTFAIROHIO [facility] LABORATORY RDW-CV12.211.5 - 15.0 %06/20/2025 7:18 AM EDTFAIRVIEW LABORATORYPlatelet Count 561061 - 400 k/uL06/20/2025 7:18 AM EDTFAIRVIEW LABORATORYMPV9.59.0 - 12.7 fL 06/20/2025 7:18 AM EDGLENWOOD [facility] CENTERVIEW LABORATORYAbsolute nRBC<0.01<0.01 k/uL06/20/2025 7:18 AM EDTFOASIS BEHAVIORAL HEALTH HOSPITALVIEW LABORATORYSpecimen (Source)Anatomical Location / Laterality Collection Method / VolumeCollection TimeReceived TimeBloodBLOOD SPECIMEN / UnknownVenipuncture / Fvwwieq5206/20/2025 6:12 AM EDT06/20/2025 6:40 AM EDT Narrative Authorizing ProviderResult TypeResult StatusErasmo Almeida MDLABORATORYFinal Result Performing OrganizationAddressCity/State/ZIP CodePhone Number [facility] [phone] * (ABNORMAL) BASIC METABOLIC PANEL (06/20/2025 6:12 AM EDT) Only the most recent of3 resultswithin the time period is included. ComponentValueRef RangeTest MethodAnalysis TimePerformed AtPathologist Signature Wpbmhns6532 - 99 mg/dL06/20/2025 7:49 AM EDTFAIRVIEW LABORATORYComment: The [place] Diabetes Association (ADA) provides guidance for cutoff [...] Standards of Medical Care in Diabetes 2016, [place] Diabetes Association. Diabetes Care. 2016.39(Suppl 1). BRL718 - 24 mg/dL06/20/2025 7:49 AM [facility] LABORATORYCreatinine0.65(L)0.73 - 1.22 mg/dL06/20/2025 7:49 AM [facility] XLKJQOREDIHcnahs500676 - 144 mmol/L 06/20/2025 7:49 AM [facility] LABORATORYPotassium4.13.7 - 5.1 mmol/L06/20/2025 7:49 AM [facility] WJMWYAVDHLCqgtgudx29569 - 107 mmol/L06/20/2025 7:49 AM [facility] YQKTULMZMDUA52116 - 30 mmol/L06/20/2025 7:49 AM [facility] Anion Kyy697 - 15 mmol/L06/20/2025 7:49 AM [facility] LABORATORYCalcium, Total 8.1(L)8.5 - 10.2 mg/dL06/20/2025 7:49 AM [facility] LABORATORYEstimated Glomerular Filtration Fhfq719>=60 mL/min/1.73m 06/20/2025 7:49 AM [facility] LABORATORYComment:Estimated Glomerular Filtration Rate (eGFR) is calculated using [...] Location / LateralityCollection Method / VolumeCollection TimeReceived TimeBloodBLOOD SPECIMEN / Unknown Venipuncture / Xbzvdxn0806/20/2025 6:12 AM EDT06/20/2025 6:50 AM EDT Narrative Authorizing ProviderResult TypeResult Annabella Almeida MDLABORATORYFinal Result Performing OrganizationAddressCity/State/[place] [address], * SURGICAL PATHOLOGY (2025 12:50 PM EDT)ComponentValueRef RangeTest Method Analysis TimePerformed AtPathologist SignatureCase ReportSurgical Pathology Report ? Case: [id number] ? Authorizing Provider: ??Teresa Tucker MD ?Collected: ? 2025 12:50 PM? Ordering Location: ? [facility] ?Received: ?2025 12:59 PM ? Operating Room ? Pathologist: ? Sergey Arenas MD ? Intraop: ? Sergey Arenas MD ? Specimens: ?? A) - Prostate, Resection, PROSTATE CAPSALE ? B) - [place], Sigmoid, Resection, Sigmoid and Rectum ? C) - Colon, Resection, Distal Doughnut ? 06/27/2025 5:38 PM EDTEWKSBURY STATE HOSPITAL LABORATORYFINAL DIAGNOSISA. Prostate capsule, biopsy: - Benign fibromuscular tissue. B. Sigmoid colon and rectum, resection: - Residual invasive adenocarcinoma (see comment and synoptic report). - Metastatic adenocarcinoma involving two of nineteen lymph nodes (2/19). - Nine (9) hyperplastic polyps. C. Distal donut, excision: - Segment of rectum with no diagnostic abnormality. JEL 5006/27/2025 5:38 PM [facility] at 1738 EDTDiagnosis CommentA Movat stain performed on block B7 with appropriate controls fails to demonstrate evidence of extramural venous invasion.06/27/2025 5:38 PM [facility] LABORATORYBlock for additional Biomarkers/Molecular zwohpnbZ914/22/2025 5:38 PM EDMCCULLOUGH-[facility]DE [facility] LABSynoptic ReportCOLON AND RECTUM: Resection COLON AND RECTUM: RESECTION [...] ?? pT Category: ?pT3 ?? pN Category: ?pN1b09/ 5:38 PM EDTFAIRVIEW LABORATORYGross DescriptionA. Prostate, Resection Received fresh for intraoperative frozen diagnosis designated prostate capsule is a segment of red extensively cauterized soft tissue measuring 0.7 x 0.4 x 0.3 cm. The specimen is totally submittedfor frozen then for permanent cassette FSA1. BF 2025 1:30 PM Gross examination performed at [facility], [address] [place] [address] B. Colon, Sigmoid, Resection Received in formalin [...] The lesion is totally submitted along with indirect sales representative sections as follows: B1 perpendicular proximal and distal margins, B2 perpendicular mesenteric margin, B3 lesion involving anterior bowel wall with perpendicular circumferential (radial) margin, B4-B5 lesion involving right lateral bowel wall with perpendicular circumferential (radial) margin, B6- B9 lesion involving posterior bowel wallwith perpendicular circumferential (radial) margin, B10 remainder of lesion involving left lateral bowel wall with perpendicular circumferential (radial) margin, B11 two polyps at 6 cm from distal margin totally submitted, B12 three polyps totally submitted at 10 cm from distal margin, B13 two polyps totally submitted at 15 cm from distal margin, B14 two polyps totally submitted at 20 cm from distal margin, B15 8 cm from distal margin, B16 one possible lymph node in relation to perpendicular pos terior circumferential (radial) margin, B17-B19 one possible lymph node bisected and totally submitted per cassette, B20 three possible lymph nodes totally submitted, B21 two possible lymph nodes totally submitted, B22-B31 colorectal soft tissue submitted for microscopic lymph node evaluation. BF 2025 3:00 PM Gross examination performed at [facility], [address] [place] [address] Additional sections of pericolonic fat are submitted in cassettes as B32-B51 for microscopic lymph node evaluation. WE June 24, 2025 9:48 AM Gross examination performed at [facility], [address] [place] [address] C. Colon, Resection Received in formalin designated distal donut is a donut that measures 0.8 cm in length and 1.5 cmin diameter. The mucosa is cabrales and granular. The specimen is entirely submitted in one cassette. WE June 20, 2025 11:02 AM Gross examination performed at [facility], [address] [place] [address] [id number] 5:38 PM EDTEWKSBURY STATE HOSPITAL LABORATORYIntraoperative DiagnosisA. Prostate, Resection FSA1: Negative for malignancy. (Dr. Arenas) Intraoperative diagnosis performed at [facility], [address] [place] [address] CLIA # [id number]/22/2025 5:38 PM EDTEWKSBURY STATE HOSPITAL LABORATORYClinical HistoryPre-op diagnosis: Rectal cancer (HCC) [C20]06/27/2025 5:38 PM EDTFNEWTON-WELLESLEY HOSPITAL LABORATORYPerforming Lab Diagnostic interpretation performed at: [facility], [address] [place] [address] CLIA# [id number] College Intern: Sergey Arenas MD06/27/2025 5:38 PM EDTFNEWTON-WELLESLEY HOSPITAL LABORATORY DisclaimerLaboratory Developed Test (LDT) Disclaimer: Performance characteristics of immunohistochemical, immunofluorescent, and chromogenic in-situ hybridization tests have been determined by the performing laboratory within the [facility] Department of Pathology and Laboratory Medicine ([facility], [facility], [facility], [facility], [facility], [facility], or [facility]) in a manner consistent with CLIA requirements. One or more of these tests may not have been cleared or approved by the FDA. The [facility] Department of Pathology and Laboratory Medicineis regulated under CLIA as qualified to perform high-complexity testing. These tests are used for clinical purposes. These should not be regarded as investigational or for research. Positive and negative controls stain appropriately.06/27/2025 5:38 PM EDT [facility] LABORATORYSpecimen (Source)Anatomical Location / LateralityCollection Method / VolumeCollection TimeReceived TimeTissueRADICAL PROSTATECTOMY / Unknown 2025 12:50 PM EDT2025 12:59 PM EDTComment:Pre-op diagnosis: Rectal cancer (HCC) [C20]Tissue specimen (specimen)SIGMOID COLON STRUCTURE / Efhplvu8006/17/2025 1:24 PM EDT2025 1:39 PM EDTComment:Pre-op diagnosis: Rectal cancer (HCC) [C20]Tissue specimen (specimen)[facility] CANCER CHECKLIST; COLON AND RECTUM: RESECTION / Igzktrt3806/17/2025 2:40 PM EDT06/20/2025 9:36 AM EDTComment:Pre-op diagnosis: Rectal cancer (HCC) [C20] Narrative Authorizing ProviderResult TypeResult StatusAmelissa Tucker MDSURGICAL PATHOLOGYFinal ResultPerforming OrganizationAddressCity/State/ZIP CodePhone Number [facility] [address] [place] [address], [facility] [address] [place] [address], * CONFIRM BLOOD TYPE (2025 7:58 AM EDT)ComponentValueRef RangeTest Method Analysis TimePerformed AtPathologist RmpvmwvqpSEPV52/12/2025 8:53 AM EDT [facility](D)Jfnkyjlw21/12/2025 8:53 AM [facility]TF[facility] Specimen (Source)Anatomical Location / LateralityCollection Method / Volume Collection TimeReceived TimeBloodBLOOD SPECIMEN / Deqpmuz2106/17/2025 7:58 AM EDT2025 8:11 AM EDTComment:Pre-op diagnosis: Rectal cancer (HCC) [C20] Narrative Authorizing ProviderResult TypeResult StatusAmelissa Tucker MDNOR[facility] BANKFinal ResultPerforming OrganizationAddressCity/State/ZIP CodePhone Number [facility] [address] [place] [address], * TYPE + SCREEN (2025 7:55 AM EDT)ComponentValueRef RangeTest Method Analysis TimePerformed AtPathologist AmoikrwibYWKQ89/12/2025 9:04 AM EDT [facility](D)Ffrllddh35/12/2025 9:04 AM EDTFNEWT[facility] Antibody CiroalSsatnlvd96/12/2025 9:04 AM EDTFNEWTON-[facility] BLOOD BANKType and Screen Bijakyqldv54/15/2025 23:59006/17/2025 9:04 AM EDTFNE[facility] Specimen (Source)Anatomical Location / LateralityCollection Method / Volume Collection TimeReceived TimeBloodBLOOD SPECIMEN / Aksitlv3006/17/2025 7:55 AM EDT2025 8:11 AM EDTComment:Pre-op diagnosis: Rectal cancer (HCC) [C20] Narrative Authorizing ProviderResult TypeResult StatusAmelissa Tucker MDNOR[facility] VALLEY [facility] BANKFinal ResultPerforming OrganizationAddressty/State/ZIP CodePhone Number [facility] [address] [place] [address], [place] * PERIPHERAL IV PLACEMENT (2025 7:50 AM EDT) Narrative Lucia Hdz APRN.AUTOMATIC PROFILE SANDER OPERATOR - 2025 7:50 AM EDT Lucia Hdz APRN.AUTOMATIC PROFILE SANDER OPERATOR 2025 8:51 AM PIV General Information Procedure Start Time/Medication Administration: 2025 7:50 AM Procedure End Time: 2025 7:51 AM Patient Location: ??OR Staffing AUTOMATIC PROFILE SANDER OPERATOR: Lucia Hdz APRN.AUTOMATIC PROFILE SANDER OPERATOR Performed by: AUTOMATIC PROFILE SANDER OPERATOR Preparation Sterility Preparation: hand hygiene performed prior to procedure, surgical cap used, mask used, skin prep agent completely dried prior to procedure ?? Site Prep: Chloraprep Procedure Details Indication: need for IV access Needle Size/Type: 18 gauge angiocath Orientation: ??Right Location: ??Forearm Imaging Guidance Used: ??No Authorizing ProviderResult TypeResult StatusBemelany GOLDSTEINMARIETTA MEMORIAL HOSPITALSIA ORDERABLESFinal Result * Airway (2025 7:46 AM EDT) Narrative Lucia Hdz APRN.AUTOMATIC PROFILE SANDER OPERATOR - 2025 7:46 AM EDT Lucia Hdz APRN.AUTOMATIC PROFILE SANDER OPERATOR 2025 8:50 AM Airway General Information Procedure Start Time/Medication Administration: 2025 7:46 AM Procedure End Time: 2025 7:47 AM Patient location during procedure: OR Patient identity confirmed: arm band, care restaurant team member and patient Staffing Anesthesiologist: Livan Michelle MD AUTOMATIC PROFILE SANDER OPERATOR: Lucia Hdz APRN.AUTOMATIC PROFILE SANDER OPERATOR Performed by: RANJITH Indications and Patient Condition Indications for airway management: anesthesia Preoxygenated: yes ? anesthesia circuit Method: asleep Difficult Mask: No [...] attempts at approach: 1 Airway not difficult Authorizing ProviderResult TypeResult StatusLivan GOLDSTEINTHESIA ORDERABLESFinal Result * ECG COMPLETE (06/10/2025 12:32 PM EDT)ComponentValueRef RangeTest Method Analysis TimePerformed AtPathologist SignatureVentricular Jfqt96IULIICOS AND VASCULAR INSTITUTEAtrial Tcie48BIAQWWQR AND VASCULAR INSTITUTEP-R Hkpcfhru233 msHEART AND VASCULAR INSTITUTEQRS Mdcktwjx60pvHZZER AND VASCULAR INSTITUTEQT Dwtkzupt647hrBKLTX AND VASCULAR INSTITUTEQTC Calculation (Marco)449msHEART AND VASCULAR INSTITUTECalculated P Idlu82rhzxgvkMNBKK AND VASCULAR INSTITUTE Calculated R Kcrq97nvylfziVZCYG AND VASCULAR INSTITUTECalculated T Axis69 degreesHEART AND VASCULAR INSTITUTESpecimen (Source)Anatomical Location / LateralityCollection Method / VolumeCollection TimeReceived Time06/10/2025 12:32 PM EDT Impressions [facility] - 06/11/2025 10:07 PM EDT NORMAL SINUS RHYTHM NORMAL ECG Confirmed by LO BISWAS DO ([id number]) on 06/11/2025 10:07:53 PM Narrative [facility] - 06/11/2025 10:07 PM EDT NAME : BENTLEY GONZALEZ PID : [id number] : 1960 Gender : Male Race : ORD : [id number] Procedure Date : Jun 10 2025 12:32:05 Edit Date : Jun 11 2025 22:07:58 Diagnosis: NORMAL SINUS RHYTHM NORMAL ECG Confirmed by LO BISWAS DO ([id number]) on 06/11/2025 10:07:53 PM Test Reason : PACC Location : 545 : [facility] ?? Overread By : LO BISWAS DO Edited By : LO BISWAS DO Referred By : TERESA TUCKER Acquired by : RUST, Authorizing ProviderResult TypeResult StatusChnatty Huff APRN.CNPEKGFinal ResultPerforming OrganizationAddressCity/State/ZIP CodePhone Number [facility] [address] [place] [address] * PT ED PATIENT INFORMATION (06/06/2025) Only the most recent of2 resultswithin the time period is included. Specimen (Source)Anatomical Location / LateralityCollection Method / Volume Collection TimeReceived Time06/06/2025 Narrative [facility] - 07/07/2025 Provider TOM your patient BENTLEY GONZALEZ has not started their Esme program, time has . Esme program: PATIENT SAFETY INSTRUCTIONS FOR HEALTHCARE SETTINGS Authorizing ProviderResult TypeResult StatusKatsylvia Solitario APRN.CNPEMMIFinal ResultPerforming OrganizationAddressCity/State/ZIP CodePhone Number [facility] * (ABNORMAL) COMPREHENSIVE METABOLIC PANEL (05/27/2025 2:41 PM EDT)Component ValueRef RangeTest MethodAnalysis TimePerformed AtPathologist Signature Protein, Total6.46.3 - 8.0 g/dL05/27/2025 3:21 PM [facility] LABAlbumin3.93.9 - 4.9 g/dL05/27/2025 3:21 PM [facility] LABCalcium, Total9.18.5 - 10.2 mg/dL05/27/2025 3:21 PM [facility] LABBilirubin, Total0.30.2 - 1.3 mg/dL 05/27/2025 3:21 PM [facility] LABAlkaline Tolraaqbbzm53511 - 113 U/L05/27/2025 3:21 PM [facility] QMKRTN4997 - 40 U/L05/27/2025 3:21 PM [facility] CMXQDB4073 - 54 U/L05/27/2025 3:21 PM [facility] CURIoytnwr0485 - 99 mg/dL05/27/2025 3:21 PM [facility] LABComment: The [place] Diabetes Association (ADA) provides guidance for cutoff [...] Standards of Medical Care in Diabetes 2016, [place] [employer]. Diabetes Care. 2016.39(Suppl 1). QVR895 - 24 mg/dL05/27/2025 3:21 PM [facility] Creatinine0.66(L)0.73 - 1.22 mg/dL05/27/2025 3:21 PM [facility] TOBOcdusg299869 - 144 mmol/L05/27/2025 3:21 PM [facility]TN[facility] LABPotassium3.93.7 - 5.1 mmol/L05/27/2025 3:21 PM EDT [facility] EGTEainilux75317 - 107 mmol/L05/27/2025 3:21 PM [facility]TNORTHARB[facility] DJQQA52479 - 30 mmol/L05/27/2025 3:21 PM [facility]TNORTHARB[facility] LABAnion Gap7(L)8 - 15 mmol/L05/27/2025 3:21 PM [facility] LABEstimated Glomerular Filtration Ziiw629>=60 mL/min/1.73m 05/27/2025 3:21 PM EDTHAM[facility] LABComment:Estimated Glomerular Filtration Rate (eGFR) is calculated using [...] Location / LateralityCollection Method / VolumeCollection TimeReceived TimeBloodBLOOD SPECIMEN / UnknownPort - Continuous Access Dev. / Vlgruqx0405/27/2025 2:41 PM EDT 05/27/2025 2:46 PM EDT Narrative Authorizing ProviderResult TypeResult StatusAmelissa Tucker MDLABORATORYFinal ResultPerforming OrganizationAddressCity/State/ZIP CodePhone Number [facility] [address] [place] [address] * (ABNORMAL) COMPLETE BLOOD COUNT AND DIFFERENTIAL (05/27/2025 2:41 PM EDT) ComponentValueRef RangeTest MethodAnalysis TimePerformed AtPathologist SignatureWBC5.293.70 - 11.00 k/uL05/27/2025 2:48 PM EDTNORTHARBOR [facility] LABRBC3.81(L)4.20 - 6.00 m/uL08/ 2:48 PM EDTNOWILL[facility] VNHHwhjlgfody43.6(L)13.0 - 17.0 g/dL05/27/2025 2:48 PM [facility] OUCAxieoyenco80.9(L)39.0 - 51.0 % 05/27/2025 2:48 PM EDTH[facility] VRWZGO08.580.0 - 100.0 fL05/27/2025 2:48 PM EDTNOWILLIAMSON [facility] XMXNES41.126.0 - 34.0 pg05/27/2025 2:48 PM EDTH[facility] JSNCJGM97.230.5 - 36.0 g/dL05/27/2025 2:48 PM EDPR[facility] LABRDW-CV 12.911.5 - 15.0 %05/27/2025 2:48 PM EDTHAM[facility] LAB Platelet Zufgn143368 - 400 k/05/27/2025 2:48 PM ED[facility] LABMPV9.09.0 - 12.7 NH05/27/2025 2:48 PM [facility] LABNeutrophils %58.5%05/27/2025 2:48 PM ED[facility] LABAbs Neut3.101.45 - 7.50 k/05/27/2025 2:48 PM EDTNOWILLIAM[facility] LABLymphocytes %22.3%05/27/2025 2:48 PM [facility]TH[facility] LABAbs Lymph1.181.00 - 4.00 k/05/27/2025 2:48 PM EDT [facility] LABMonocytes %14.2%05/27/2025 2:48 PM EDT [facility] LABAbs Mono0.75<0.87 k/05/27/2025 2:48 PM EDTH[facility] LABEosinophils %4.2%05/27/2025 2:48 PM [facility]NOW[facility] LABAbs Eosin0.22<0.46 k/05/27/2025 2:48 PM [facility] LABBasophils %0.4%05/27/2025 2:48 PM [facility] LABAbs Baso<0.03<0.11 /05/27/2025 2:48 PM [facility]TH[facility] LABImmature Granulocytes %0.4% 05/27/2025 2:48 PM ED[facility] LABAbs Immature Gran <0.03<0.10 /05/27/2025 2:48 PM [facility] LABNRBC 0.0/100 WBC05/27/2025 2:48 PM EDTH[facility] LABAbsolute nRBC<0.01<0.01 /05/27/2025 2:48 PM EDPR[facility] LABDiff DfbiTbfj48/22/2025 2:48 PM EDPR[facility] LAB Specimen (Source)Anatomical Location / LateralityCollection Method / Volume Collection TimeReceived TimeBloodBLOOD SPECIMEN / UnknownPort - Continuous Access Dev. / Fczzkqp7405/27/2025 2:41 PM EDT05/27/2025 2:46 PM EDT Narrative Authorizing ProviderResult TypeResult StatusAmelissa Tucker MDLABORATORYFinal ResultPerforming OrganizationAddressCity/State/ZIP CodePhone Number [facility] [address] [place] [address] * MRI RECTUM WO/W IVCON (05/19/2025 7:33 PM EDT)Anatomical RegionLaterality ModalityPelvisMagnetic ResonanceSpecimen (Source)Anatomical Location / LateralityCollection Method / VolumeCollection TimeReceived Time05/19/2025 7:33 PM EDT Impressions 05/19/2025 7:55 PM EDT IMPRESSION: Decrease in size of mid-rectal mass [...] nodes: Yes Suspicious Extramesorectal lymph nodes: No Egg Tester: RILEY ?? Transcribe Date/Time: May 19 2025 ??7:42P Dictated by : MELISA MENDEZ MD This examination was interpreted and the report reviewed and electronically signed by: MELISA MENDEZ MD on May 19 2025 ??7:53PM ??EST Narrative 05/19/2025 7:55 PM EDT * * [...] of the rectal cancer multidisciplinary tumor board. Procedure Note Provider, [facility] [place] - 05/19/2025 * * *Final Report* * [...] nodes: Yes Suspicious Extramesorectal lymph nodes: No Egg Tester: RILEY Transcribe Date/Time: May 19 2025 7:42P Dictated by : MELISA MENDEZ MD This examination was interpreted and the report reviewed and electronically signed by: MELISA MENDEZ MD on May 19 2025 7:53PM EST Authorizing ProviderResult TypeResult StatusAdars Vennepureddy MDMRI-PAMAFinal Result * CT CHEST W IVCON (04/27/2025 11:03 AM EDT)Anatomical RegionLateralityModality ChestNuclear Medicine, Nuclear MedicineSpecimen (Source)Anatomical Location / LateralityCollection Method / VolumeCollection TimeReceived Time04/27/2025 11:03 AM EDT Impressions 04/27/2025 2:10 PM EDT IMPRESSION: 1. ??A 4 mm right upper lobe nodule is more conspicuous compared to the prior CT performed in October 2024, attention is recommended on subsequent restaging exams. ??Additional pulmonary nodules measuring up to 4 mm are unchanged. 2. ??No pathologically enlarged lymph nodes identified in the chest. Transcribe Date/Time: Apr 27 2025 ??1:56P Dictated by: MARY MOYA MD This examination was interpreted and the report reviewed and electronically signed by: MARY MOYA MD on Apr 27 2025 ??2:07PM ??EST Thank you for allowing us to participate in the care of your patient. Should there be any questions regarding this interpretation, please call [phone]. If you are unable to reach us at the number above, please feel free to contact [facility] at [phone]. Narrative 04/27/2025 2:10 PM EDT * * *Final Report* * * DATE OF EXAM: Apr 27 2025 11:03AM ?? NRC ?? 0539 ??- ??CT CHEST W IVCON ??/ PROCEDURE REASON: Rectal cancer (HCC) ? * * * * Physician Interpretation * * * * RESULT: EXAMINATION: ??CHEST CT WITH CONTRAST CLINICAL HISTORY: Rectal cancer Technique: ??Spiral CT acquisition of the chest from the thoracic inlet to the upper abdomen following IV contrast. MQ: ??CTCW_6 Contrast: ??100 mL Omnipaque [address] Radiation dose: Integrated Dose-length product (DLP) for this visit = ?? 373 mGy*cm CT Dose Reduction Employed: Automated exposure control (AEC) Comparison: Chest CT dated 10/27/2024 RESULT: Limitations: ??None. Lines, tubes, and devices: ??A right-sided chest port terminates near the cavoatrial [...] new pulmonary nodules or masses are identified. ??Incidental calcified granulomas are unchanged. Mild dependent atelectasis bilaterally. ??No new airspace consolidation. ?? Upper lung predominant emphysema is unchanged. ??The central airways are patent. Pleural space: ??No pleural effusion. ??No pleural thickening. Lower neck, lymph nodes, and mediastinum: ??The imaged thyroid gland is normal. ??No lymphadenopathy in the supraclavicular, axillary, mediastinal, or hilar regions. Heart, pericardium, and thoracic vessels: ??The thoracic aorta and main pulmonary artery are normal in caliber. The cardiac chambers are normal in size. No coronary artery atherosclerotic calcifications are noted, although the study is not optimized for coronary assessment. No pericardial effusion or thickening. Bones and soft tissues: ??No destructive skeletal lesion is present. ??Mild multilevel thoracic spine degenerative disc disease is noted. Upper abdomen: ??Please see the separate report for the concurrently obtained CT of the abdomen/pelvis. Localizer images: No additional findings. Procedure Note Provider, [facility] [place] - 04/27/2025 * * *Final Report* * * DATE OF EXAM: Apr 27 2025 11:03AM [facility] 0539 - CT CHEST W IVCON [...] any questions regarding this interpretation, please call [phone]. If you are unable to reach us at the number above, please feel free to contact [facility] at [phone]. Authorizing ProviderResult TypeResult StatusAdarsh Vennepureddy MDCT-PAMAFinal Result from Last 3 Months or Most Recently Relevant to Health Maintenance Additional Health Concerns Active ProblemsNoted DateDiagnosed DateAutogenerated Ifmdgzc7808/01/[address] [place] [address] Care Teams Team MemberRelationshipSpecialtyStart DateEnd Date Corinne Torres MD [address] [facility] [address] [place] [address] PCP - GeneralFamily Medicine10/27/24 Corinne Torres MD [address] [facility] [address] [place] [address] Family Jbquwark20/21/24 Adonay Clemente [address] [place] [address] ReferringGeneral Ksavidn20/27/24 Sandhya Kim LSW Social Worker10/26/[address] [place] [address] [place] [address] Registered DietitianNutrition10/27/24 Mariola Ballard RN [address] [place] [address] [place] [address] Specialty Care CoordinatorHematology/Oncology11/05/24 Sancho Sánchez MD [address] [place] [address] [place] [address] PhysicianHematology/Oncology11/05/24
--- NOTE | 2025-08-04 01:08 | CT_ITS ---
The [address] [address] Patient Name: SABINE CERRATO MRN: [id number] date: 1960 Sex: M Assigned Patient Location: ER Current Patient Location: Accession/Order Number: [id number] Exam Date: 08/04/2025 02:00 Report Date: 08/04/2025 08:00 At the request of: JUANITO SEBASTIAN MD Procedure: CT abdomen pelvis wo con CT Abdomen and Pelvis withoutcontrast TECHNIQUE: Axial imaging with 2-D reconstruction. The CT exam was performed using one or more the following dose reduction techniques: Automated exposure control, adjustment of the MA and/or Kv according to patient size, or use of the iterative reconstruction technique. COMPARISON: None History: Abdominal chest pain. History of rectal cancer with radiation chemotherapy. Left lower quadrant pain. Oral contrast administered LIMITATIONS: None LOWER THORAX mild atelectasis. LIVER: Unremarkable GALLBLADDER: No gallbladder abnormality identified. BILE DUCTS: No dilatation SPLEEN: Unremarkable PANCREAS: Unremarkable ADRENAL GLANDS: Unremarkable KIDNEYS:No obstructive uropathy. Small left renal cyst. AORTA: No abdominal aortic aneurysm identified. RETROPERITONEUM: No significant retroperitoneal abnormalities identified. MESENTERY:Unremarkable STOMACH:Unremarkable SMALL BOWEL: The oral contrast seen throughout the nondistended small bowel. Oral contrast present in the right lower quadrant ostomy. : Nondistended. Small amount of stool identified in the ascending colon. APPENDIX: The appendix is not seen. No pericecal inflammatory changes identified. COLON: Unremarkable URINARY BLADDER: Urinary bladder is unremarkable. REPRODUCTIVE SYSTEM: Prostatomegaly. PNEUMOPERITONEUM: None PERITONEAL FLUID:None BONY STRUCTURES: Degenerative change. ABDOMINAL WALL: Unremarkable CT/CT abdomen pelvis wo con IMPRESSION: No acute focal inflammatory changes. No bowel obstruction. Oral contrast seen throughout the small bowel and in the right lower quadrant ostomy. No obstructive uropathy. Impression dictated by: Stuart Menchaca M.D. 08/04/2025 8:00 AM Dictation Location: [place] [address] Electronically authenticated by: [id number] Y Date: 08/04/2025 08:00
[2025-08-04] MEDS: 0.9 % SODIUM CHLORIDE 1,000 ML 999 ML IV (01:10)
--- NOTE | 2025-08-04 01:14 | ED_ITS ---
HPI - Abdominal Pain General Chief Complaint: Abdominal Pain Stated Complaint: ABDOMINAL PAIN/ CHEST PAIN Time Seen by Provider: 08/04/25 00:38 Source: patient Mode of arrival: walk-in Limitations: no limitations History of Present Illness HPI narrative: past history of rectal CA. Treated with radiation and chemo and then surgery. Has a colostomy bag. Presents with acute onset of LLQ pain that started a few hours ago. Still hurts but is easing up. He does not feel he needs any pain medication at this time Related Data Previous Rx's ?Medication ?Instructions ?Recorded cephalexin 500 mg capsule 500 mg PO QID 10 days #40 ca ps 07/01/24 sulfamethoxazole 800 1 tab PO BID 10 days #20 tab s 07/01/24 mg-trimethoprim 160 mg tablet (Bactrim DS) Allergies Allergy/AdvReac Type Severity Reaction Status Date / Time No Known Drug Allergies Allergy Verified 08/04/25 00:35 Review of Systems ROS Status of ROS 10 or more systems reviewed and unremark able except as noted in history and below [facility] Medical History (Updated 08/04/25 @ 05:55 by Brent Gong MD) Colostomy in place ?Z93.3 - Colostomy status (ICD-10) Rectal cancer ?C20 - Malignant neoplasm of rectum (ICD-10) Diverticulitis ?K57.92 - Diverticulitis of intestine, part unspecified, without perforation or abscess without bleeding (ICD-10) Social History Little interest or pleasure in doing things: not at all Feeling down, depressed, or hopeless: not at all Exam Constitutional Vital Signs, click to edit/add: Last Vital Signs Temp 97.9 F 08/04/25 00:29 Pulse 88 08/04/25 06:05 Resp 14 08/04/25 06:05 BP 118/72 08/04/25 06:05 Pulse Ox 99 08/04/25 06:05 O2 Del Method Room Air 08/04/25 00:29 Common normals: no apparent distress, average body habitus, oriented x3, no limitations, healthy appearing, alert and well nourished [facility] Common normals: normocephalic and head/scalp atraumatic Respiratory Common normals: normal respiratory effort, no retractions, no use of accessory muscles and clear to auscultation bilaterally Cardio Common normals: regular rate, regular rhythm, S1 normal heart sound and S2 normal heart sound GI Other: LLQ tenderness. colostomy bag functioning Extremity Common normals: normal to inspection and full ROM Neuro Common normals: oriented x3, CN's II-XII intact bilaterally, moves all extremities and no focal motor deficits Psych Appearance: grossly normal Course Vital Signs Vital signs: Vital Signs Temperature 97.9 F 08/04/25 00:29 Pulse Rate 88 08/04/25 00:29 Respiratory Rate 16 08/04/25 00:29 Blood Pressure 132/82 08/04/25 00:29 Pulse Oximetry 98 08/04/25 00:29 Oxygen Delivery Method Room Air 08/04/25 00:29 Temperature 97.9 F 08/04/25 00:29 Pulse Rate 88 08/04/25 06:05 Respiratory Rate 14 08/04/25 06:05 Blood Pressure 118/72 08/04/25 06:05 Pulse Oximetry 99 08/04/25 06:05 Oxygen Delivery Method Room Air 08/04/25 00:29 MDM - Abdominal Pain MDM Narrative Medical decision making narrative: patient recently treated for rectal CA presents with acute abdominal pain and LLQ tenderness. Pain was easing up after he arrived to the department. CT abdomen ordered. Patient became inpatient after waiting for over 3-[address] report. He is asking to leave. States his pain has improved and he has another appointment later this AM. He would like to be called about his CT if there are worrisome findings. patient discharged home in improved condition Lab Data Labs: Lab Results 08/04/25 Range/Units 00:48 WBC 7.5 (4.0-11.0) 10^3/uL RBC 4.43 L (4.70-6.10) 10^6/uL Hgb 14.2 (14.0-18.0) g/dL Hct 41.9 L (42.0-54.0) % MCV 94.6 H (80.0-94.0) fL MCH 32.1 (25.9-34.0) pg MCHC 33.9 (29.9-35.2) g/dL RDW 12.2 (11.0-15.0) % Plt Count 206 (150-450) 10^3/uL MPV 9.0 L (9.5-13.5) fL Neut % (Auto) 72.0 (43.0-75.0) % Lymph % (Auto) 15.4 L (20.5-60.0) % [place] % (Auto) 9.9 (1.7-12.0) % Eos % (Auto) 1.9 (0.9-7.0) % Baso % (Auto) 0.4 (0.2-2.0) % Neut # (Auto) 5.4 (1.4-6.5) 10^3/uL Lymph # (Auto) 1.2 (1.2-3.8) 10^3/uL [place] # (Auto) 0.7 (0.3-0.8) 10^3/uL Eos # (Auto) 0.1 (0.0-0.7) 10^3/uL Baso # (Auto) 0.0 (0.0-0.1) 10^3/uL Abs Immat Gran (auto) 0.03 (0.00-0.03) 10^3/uL Imm/Tot Granulo (auto) 0.4 (0.0-0.5) % Sodium 141 (136-145) mmol/L Potassium 3.6 (3.5-5.1) mmol/L Chloride 105 (98-107) mmol/L Carbon Dioxide 24.0 (21.0-32.0) mmol/L Anion Gap 15.6 BUN 13.0 (7.0-18.0) mg/dL Creatinine 0.63 L (0.70-1.30) mg/dL Est GFR ( Amer) >60 (>=60 mL/min/1.73m^2) Est GFR (Non-Af Amer) >60 (>=60 mL/min/1.73m^2) BUN/Creatinine Ratio 20.6 Glucose 93 (74-106) mg/dL Lactate 1.0 (0.4-2.0) mmol/L Calcium 9.1 (8.5-10.1) mg/dL Total Bilirubin 0.4 (0.2-1.0) mg/dL AST 22 (15-37) U/L ALT 18 (16-63) U/L Alkaline Phosphatase 94 (46-116) U/L Total Protein 7.2 (6.4-8.2) g/dL Albumin 3.7 (3.4-5.0) g/dL Globulin 3.5 g/dL Albumin/Globulin Ratio 1.1 Imaging Data Chest x-ray: Radiologist's impression: ITS Impressions Abdomen/Pelvis CT 08/04/25 01:08 IMPRESSION: No acute focal inflammatory changes. No bowel obstruction. Oral contrast seen throughout the small bowel and in the right lower quadrant ostomy. No obstructive uropathy. Impression dictated by: Stuart Menchaca M.D. 08/04/2025 8:00 AM Dictation Location: [employer] Electronically authenticated by: [id number] Y Date: 08/04/2025 08:00 Discharge Plan Discharge Chief Complaint: Abdominal Pain Clinical Impression: Abdominal pain Patient Disposition: Home, Self-Care Prescriptions / Home Meds: No Action sulfamethoxazole-trimethoprim [Bactrim DS] 800-160 mg tablet 1 tab PO BID 10 Days Qty: 20 0RF cephalexin 500 mg capsule 500 mg PO QID 10 Days Qty: 40 0RF Print Language: Lithuanian Instructions: Abdominal Pain (ED) Additional Instructions: Follow up with your PCP in the next few days. Return to ED if symptoms change or worsen. Referrals: RASHAUN DONOHUE [Primary Care Provider, Family Practice] - 1 week Discharge Date/Time: 08/04/25 06:10
[2025-08-04 01:15] LABS: Hematocrit 41.9 % (42.0-54.0); Hemoglobin 14.2 g/dL (14.0-18.0); Immature Granulocytes Abs Auto 0.03 10^3/uL (0.00-0.03); Immature Granulocytes Pct Auto 0.4 % (0.0-0.5); Lymphocytes Absolute Auto 1.2 10^3/uL (1.2-3.8); Mean Corpuscular HGB Conc 33.9 g/dL (29.9-35.2); Mean Corpuscular Hemoglobin 32.1 pg (25.9-34.0); Mean Corpuscular Volume 94.6 fL (80.0-94.0); Platelet Count 206 10^3/uL (150-450); Red Blood Count 4.43 10^6/uL (4.70-6.10); White Blood Count 7.5 10^3/uL (4.0-11.0)
[2025-08-04 01:34] LABS: Alanine Aminotransferase 18 U/L (16-63); Albumin Globulin Ratio 1.1; Albumin Level 3.7 g/dL (3.4-5.0); Alkaline Phosphatase 94 U/L (46-116); Anion Gap 15.6; Aspartate Amino Transferase 22 U/L (15-37); Blood Urea Nitrogen 13.0 mg/dL (7.0-18.0); Calcium 9.1 mg/dL (8.5-10.1); Carbon Dioxide 24.0 mmol/L (21.0-32.0); Chloride 105 mmol/L (98-107); Estimated GFR (African America >60 (>=60 mL/min/1.73m^2); Estimated GFR (Non-African Ame >60 (>=60 mL/min/1.73m^2); Globulin 3.5 g/dL; Glucose 93 mg/dL (74-106); Potassium 3.6 mmol/L (3.5-5.1); Sodium 141 mmol/L (136-145); Total Protein 7.2 g/dL (6.4-8.2)
[2025-08-04 01:38] LABS: Lactate/Lactic Acid 1.0 mmol/L (0.4-2.0)
== END 2025-08-04 06:10 | disposition home or self-care (01) ==
PROVIDERS: Emergency Provider Internal Medicine; PCP Family Medicine
DX: R10.84 Generalized abdominal pain (principal); R10.32 Left lower quadrant pain; Z93.3 Colostomy status; C20 Malignant neoplasm of rectum
CPT/HCPCS: 36415; 74176; 80053; 81001; 83605; 85025; 93005; 99285; Q9966